=== PATIENT | male | born 1965 | race Caucasian/White ===

== ENCOUNTER 2017-07-26 05:14 | Observation (INO) | payer OTHER ==
[~2017-07-26] VITALS: Ht 175.3 cm; Wt 97.7 kg
[2017-07-26] VITALS (10 sets, daily range): BP systolic 139–208; BP diastolic 79–105; PULSE 72–97; RESP 16–20; TEMP 98–100.3; O2SAT 94–98
[~2017-07-26 05:14] MED LIST: AMIT10TA6 PO; BENZ1CAP54 PO; FAMO40TA PO; FURO40TA PO; GABA400C5 PO; LEVEMIR SQ; NOVOLOGP2 SQ; PANT40TA3 PO; PROC10TA PO; PROP20TA3 PO; SPIR100T PO; TRAM50TA PO
--- NOTE | 2017-07-26 05:25 | PD ---
HPI Chief Complaint: GI Complaint Time Seen by Provider: 05:16 Travel History International Travel<30 days: No Contact w/Intl Traveler<30days: No Traveled to known affect area: No History of Present Illness HPI 52-year-old male complains of abdominal pain, nausea vomiting and hematemesis. Patient has history of alcohol abuse. Patient has history of esophageal varices. Patient states that he has has been drinking alcohol heavily recently. Patient states that he started having recurrent nausea vomiting since last night. Patient noted some blood in the vomitus occasionally. Patient denies any headache. Patient denies any chest pain or shortness of breath. Patient complained of cramping pain mostly on the upper abdomen epigastric area. Patient denies any pain radiation. Patient complains of abdominal bloating. Patient denies any dysuria frequency. Patient denies any back pain. Patient denies any fever chills. Patient has history hypertension, diabetes. Patient is a smoker. PFSH Past Medical History Anxiety: Yes Depression: Yes Diabetes: Yes Diminished Hearing: No Hypertension: Yes Social History Alcohol Use: Yes (Daily) Tobacco Use: Yes Substance Use: Yes (alcohol) Allergies-Medications (Allergen,Severity, Reaction): Coded Allergies: morphine (Unverified Allergy, Severe, Shortness of Breath, 03/23/17) buspirone (Unverified Allergy, Intermediate, Numbness, 03/23/17) Reported Meds & Prescriptions Reported Meds & Active Scripts Active Reported Benzonatate 100 Mg Cap 100 Mg PO TID PRN Amitriptyline (Amitriptyline HCl) 10 Mg Tab 10 Mg PO HS Prochlorperazine Maleate 10 Mg Tab 10 Mg PO Q6H PRN Furosemide 40 Mg Tab 40 Mg PO DAILY Tramadol (Tramadol HCl) 50 Mg Tab 50 Mg PO Q8H PRN Pantoprazole (Pantoprazole Sodium) 40 Mg Tab 40 Mg PO BID Famotidine 40 Mg Tab 40 Mg PO HS Gabapentin 400 Mg Cap 400 Cap PO TID Spironolactone 100 Mg Tab 100 Mg PO DAILY Propranolol (Propranolol HCl) 20 Mg Tab 20 Mg PO Q8HR Levemir Inj (Insulin Detemir) 1,000 unit/ 10 ML Vial 20 Units SQ AC DINNER Do not mix with any other Insulin. Levemir Inj (Insulin Detemir) 1,000 unit/ 10 ML Vial 25 Units SQ AC BREAKFAST Do not mix with any other Insulin. Novolog Inj (Insulin Aspart) 1,000 Unit/10 Ml Vial 11 Units SQ TIDAC PRN Review of Systems General / Constitutional: No: Fever Eyes: No: Visual changes HENT: No: Headaches Cardiovascular: No: Chest Pain or Discomfort Respiratory: No: Shortness of Breath Gastrointestinal: Positive: Nausea, Vomiting, Abdominal Pain Genitourinary: No: Dysuria Musculoskeletal: No: Pain Skin: No Rash Neurologic: No: Weakness Psychiatric: No: Depression Endocrine: No: Polydipsia Hematologic/Lymphatic: No: Easy Bruising Physical Exam Narrative GENERAL: Well-nourished, well-developed patient. SKIN: Focused skin assessment warm/dry. HEAD: Normocephalic. EYES: No scleral icterus. No injection or drainage. NECK: Supple, trachea midline. No JVD or lymphadenopathy. CARDIOVASCULAR: Regular rate and rhythm without murmurs, gallops, or rubs. RESPIRATORY: Breath sounds equal bilaterally. No accessory muscle use. GASTROINTESTINAL: Abdomen soft, nondistended. Patient has mild tenderness on palpation epigastric area. No rebound tenderness. No mass. MUSCULOSKELETAL: No cyanosis, or edema. BACK: Nontender without obvious deformity. No CVA tenderness. Data Data Last Documented VS Vital Signs Date Time Temp Pulse Resp B/P (MAP) Pulse Ox O2 Delivery O2 Flow Rate FiO2 07/26/17 05:17 98.5 16 Orders Orders Complete Blood Count With Diff (07/26/17 05:16) Comprehensive Metabolic Panel (07/26/17 05:16) Prothrombin Time / Inr (Pt) (07/26/17 05:16) Act Partial Throm Time (Ptt) (07/26/17 05:16) Lipase (07/26/17 05:16) Chest, Single Ap (07/26/17 05:16) Iv Access Insert/Monitor (07/26/17 05:16) Ecg Monitoring (07/26/17 05:16) Oximetry (07/26/17 05:16) Sodium Chlor 0.9% 1000 Ml Inj (Ns 1000 M (07/26/17 05:30) Pantoprazole Inj (Protonix Inj) (07/26/17 05:30) Promethazine Inj (Phenergan Inj) (07/26/17 05:30) Ct Abd/Pel W Iv Contrast(Rout) (07/26/17 05:18) MDM Medical Decision Making Medical Screen Exam Complete: Yes Emergency Medical Condition: Yes Differential Diagnosis Differential diagnosis including gastroenteritis, gastritis, PUD, pancreatitis, upper GI bleed, colitis, UTI, pyelonephritis, nephrolithiasis, esophageal bleed. Narrative Course 52-year-old male with epigastric abdominal pain, nausea vomiting and occasionally hematemesis. History of alcohol abuse and history of esophageal varices. Esteban Yu MD July 26, 2017 05:25
[2017-07-26] MEDS ORDERED: AMIT10TA6 PO (05:29)
[2017-07-26] MEDS ORDERED: PROMETHAZINE INJ 25 MG/ML VIAL IM ONE ×2 (05:30→06:30)
[2017-07-26] MEDS ORDERED: SODIUM CHLOR 0.9% 1000 ML INJ 1,000 ML IV SCH (05:30)
[2017-07-26] MEDS ORDERED: PANTOPRAZOLE SODIUM 40 MG VIAL IV PUSH ONE (05:30)
[2017-07-26 05:41] LABS: AUTOMATED NEUTROPHIL # 3.8 TH/MM3 (1.8-7.7); BASOPHIL % 0.3 % (0.0-2.0); EOSINOPHIL % 0.8 % (0.0-4.0); HEMATOCRIT 37.5 % (39.0-51.0); HEMOGLOBIN 12.7 GM/DL (13.0-17.0); LYMPHOCYTE # 0.4 TH/MM3 (1.0-4.8); MEAN CELL VOLUME 80.4 FL (80.0-100.0); MEAN CORPUSCULAR HEMOGLOBIN 27.3 PG (27.0-34.0); MEAN CORPUSCULAR HGB CONC 33.9 % (32.0-36.0); MEAN PLATELET VOLUME 8.3 FL (7.0-11.0); MONO % 17.2 % (0.0-8.0); MONOCYTE # 0.9 TH/MM3 (0-0.9); NEUT % 73.7 % (16.0-70.0); PLATELET COUNT 69 TH/MM3 (150-450); RED BLOOD COUNT 4.66 MIL/MM3 (4.50-5.90); RED CELL DISTRIBUTION WIDTH 18.9 % (11.6-17.2); WHITE BLOOD COUNT 5.1 TH/MM3 (4.0-11.0)
[2017-07-26 05:53] LABS: INTERNATIONAL NORMALIZED RATIO 1.1 RATIO; PROTHROMBIN TIME - PATIENT 11.5 SEC (9.8-11.6)
[2017-07-26 06:05] LABS: ALBUMIN 3.3 GM/DL (3.4-5.0); ALT (GPT) 20 U/L (12-78); AST (GOT) 35 U/L (15-37); BLOOD UREA NITROGEN 8 MG/DL (7-18); CALCIUM 8.2 MG/DL (8.5-10.1); CHLORIDE 110 MEQ/L (98-107); CREATININE 0.66 MG/DL (0.60-1.30); GLOMERULAR FILTRATION RATE 126 ML/MIN (>89); GLUCOSE,RANDOM 183 MG/DL (74-106); SODIUM (NA) 145 MEQ/L (136-145)
[2017-07-26 06:08] LABS: ALKALINE PHOSPHATASE 142 U/L (45-117); TOTAL BILIRUBIN ADULT 0.8 MG/DL (0.2-1.0); TOTAL PROTEIN 6.6 GM/DL (6.4-8.2)
[2017-07-26] MEDS ORDERED: ATROPINE/SCOPOLAM/HYOSCYAM/PB ELIXIR 10 ML CUP PO ONE (06:15)
[2017-07-26] MEDS ORDERED: ALUMINUM/MAGNESIUM/SIMETH 30 ML CUP PO ONE (06:15)
--- NOTE | 2017-07-26 06:31 | RADRPT ---
EXAM DATE/TIME: 07/26/2017 05:54 [facility] COMPARISON: No previous studies available for comparison. INDICATIONS : Upper abdominal pain. MEDICAL HISTORY : Hypertension. Diabetes. SURGICAL HISTORY : Esophageal banding. ENCOUNTER: Initial ACUITY: 3 days PAIN SCORE: 10/10 LOCATION: Bilateral chest FINDINGS: A single view of the chest demonstrates the lungs to be symmetrically aerated without evidence of mas s, infiltrate or effusion. The cardiomediastinal contours are unremarkable. Osseous structures are intact. CONCLUSION: Normal examination. Mynor Lebron Jr., MD on July 26, 2017 at 6:29 Board Certified Radiologist. This report was verified electronically.
[2017-07-26] MEDS ORDERED: METOCLOPRAMIDE HCL 10 MG/2 ML VIAL IV PUSH ONE (06:45)
[2017-07-26] MEDS ORDERED: diphenhydrAMINE HCL 50 MG/ML VIAL IV PUSH ONE (06:45)
[2017-07-26] MEDS ORDERED: IOHEXOL 350 MG/ML 10 ML VIAL (for RAD DIAG) IVCONTRAST ONE (07:36)
--- NOTE | 2017-07-26 07:52 | RADRPT ---
EXAM DATE/TIME: 07/26/2017 07:34 [facility] COMPARISON: No previous studies available for comparison. INDICATIONS : Epigastric abdominal pain, distention and hemoptysis. IV CONTRAST: 95 cc Omnipaque 350 (iohexol) IV ORAL CONTRAST: No oral contrast ingested. RADIATION DOSE: 15.06 CTDIvol (mGy) MEDICAL HISTORY : Hypertension. Diabetes. ETOH abuse. Esophageal varices. SURGICAL HISTORY : Esophageal banding. ENCOUNTER: Initial ACUITY: 1 day PAIN SCALE: 8/10 LOCATION: Abdomen. TECHNIQUE: Volumetric scanning of the abdomen and pelvis was performed. Using automated exposure control and ad justment of the mA and/or kV according to patient size, radiation dose was kept as low as reasonably achievable to obtain optimal diagnostic quality images. DICOM format image data is available electro nically for review and comparison. FINDINGS: LOWER LUNGS: The visualized lower lungs are clear. Small to moderate hiatal hernia the GE junction. LIVER: The liver is heterogeneous suggestive of hepatocellular disease. No dilated biliary ducts. Multiple g allstones in the gallbladder. There is some thickening of the gallbladder wall. SPLEEN: Splenomegaly. Spleen measures 16.7 cm. There is some varices near the GE junction. PANCREAS: Within normal limits. KIDNEYS: Normal in size and shape. There is no mass, stone or hydronephrosis. ADRENAL GLANDS: Within normal limits. VASCULAR: There is no aortic aneurysm. BOWEL/MESENTERY: The stomach, small bowel, and colon demonstrate no acute abnormality. There is no free intraperitone al air. There is edema throughout the mesentery within the abdomen. There is a trace of fluid by the liver. The appendix is unremarkable. ABDOMINAL WALL: Within normal limits. RETROPERITONEUM: A few small nonspecific lymph nodes are seen in the para-aortic area. Otherwise no definite adenopath y is seen. BLADDER: No wall thickening or mass. REPRODUCTIVE: Within normal limits. INGUINAL: There is no lymphadenopathy or hernia. MUSCULOSKELETAL: Within normal limits for patient age. CONCLUSION: 1. Heterogeneous liver characteristic for hepatocellular disease such as cirrhosis. 2. Splenomegaly. 3. Varices are seen in the upper abdomen near the GE junction. 4. Small to moderate hiatal hernia at the GE junction 5. Trace of fluid by the liver. Edema throughout the mesentery. No significant ascites. 6. Multiple gallstones in the gallbladder. No biliary tract obstruction. Josue Hopkins MD on July 26, 2017 at 7:44 Board Certified Radiologist. This report was verified electronically.
[2017-07-26] MEDS ORDERED: SENNOSIDES 8.6 MG TAB PO PRN (09:30)
[2017-07-26] MEDS ORDERED: NALOXONE HCL 0.4 MG/ML AMP IV PUSH PRN (09:30)
[2017-07-26] MEDS ORDERED: LACTULOSE SYRUP 20 GM/30 ML CUP PO PRN (09:30)
[2017-07-26] MEDS ORDERED: BISACODYL 10 MG SUPP RECTAL PRN (09:30)
[2017-07-26] MEDS ORDERED: MAGNESIUM HYDROXIDE SUSP 30 ML CUP PO PRN (09:30)
[2017-07-26] MEDS ORDERED: SODIUM CHLORIDE 0.9% FLUSH 10 ML FLUSH IV FLUSH PRN ×3 (09:30→09:45)
--- NOTE | 2017-07-26 09:37 | PD ---
Physical Exam Date Seen by Provider: July 26, 2017 Time Seen by Provider: 07:00 Narrative Patient initially seen and evaluated by Dr. Yu, please see his notes for further details. He is here for nausea, vomiting, hematemesis, and CAT scan is pending for further evaluation. H&H appears to be stable. Vital signs are stable. Patient has already been given Protonix. Laboratory Tests Test 07/26/17 05:30 Hemoglobin 12.7 GM/DL (13.0-17.0) Hematocrit 37.5 % (39.0-51.0) Red Cell Distribution Width 18.9 % (11.6-17.2) Platelet Count 69 TH/MM3 (150-450) Neutrophils (%) (Auto) 73.7 % (16.0-70.0) Lymphocytes (%) (Auto) 8.0 % (9.0-44.0) Monocytes (%) (Auto) 17.2 % (0.0-8.0) Lymphocytes # (Auto) 0.4 TH/MM3 (1.0-4.8) Platelet Estimate LOW (NORMAL) Random Glucose 183 MG/DL (74-106) Albumin 3.3 GM/DL (3.4-5.0) Calcium Level 8.2 MG/DL (8.5-10.1) Alkaline Phosphatase 142 U/L (45-117) Chloride Level 110 MEQ/L (98-107) Last 24 hours Impressions Abdomen/Pelvis CT 07/26/17517 Signed Impressions: Service Date/Time: Wednesday, July 26, 2017 07:34 - CONCLUSION: 1. Heterogeneous liver characteristic for hepatocellular disease such as cirrhosis. 2. Splenomegaly. 3. Varices are seen in the upper abdomen near the GE junction. 4. Small to moderate hiatal hernia at the GE junction 5. Trace of fluid by the liver. Edema throughout the mesentery. No significant ascites. 6. Multiple gallstones in the gallbladder. No biliary tract obstruction. Josue Hopkins MD Chest X-Ray 07/26/17515 Signed Impressions: Service Date/Time: Wednesday, July 26, 2017 05:54 - CONCLUSION: Normal examination. Mynor Lebron Jr., MD Data Data Last Documented VS Vital Signs Date Time Temp Pulse Resp B/P (MAP) Pulse Ox O2 Delivery O2 Flow Rate FiO2 07/26/17 08:12 97 20 173/104 (127) 97 Room Air 07/26/17 05:17 98.5 Orders Orders Complete Blood Count With Diff (07/26/17 05:16) Comprehensive Metabolic Panel (07/26/17 05:16) Prothrombin Time / Inr (Pt) (07/26/17 05:16) Act Partial Throm Time (Ptt) (07/26/17 05:16) Lipase (07/26/17 05:16) Chest, Single Ap (07/26/17 05:16) Iv Access Insert/Monitor (07/26/17 05:16) Ecg Monitoring (07/26/17 05:16) Oximetry (07/26/17 05:16) Sodium Chlor 0.9% 1000 Ml Inj (Ns 1000 M (07/26/17 05:30) Pantoprazole Inj (Protonix Inj) (07/26/17 05:30) Promethazine Inj (Phenergan Inj) (07/26/17 05:30) Ct Abd/Pel W Iv Contrast(Rout) (07/26/17 05:18) Al-Mag Hy-Si 40-40-4 Mg/Ml Liq (Mag-Al P (07/26/17 06:15) Plbrp-Orjibe-Gishkb-Pb Liq ( Liq (07/26/17 06:15) Promethazine Inj (Phenergan Inj) (07/26/17 06:30) Metoclopramide Inj (Reglan Inj) (07/26/17 06:45) Diphenhydramine Inj (Benadryl Inj) (07/26/17 06:45) Iohexol 350 Inj (Omnipaque 350 Inj) (07/26/17 07:36) Admit Order (Ed Use Only) (07/26/17 09:29) Place In Observation (07/26/17 ) Vital Signs (Adult) Q4H (07/26/17 09:28) Activity Oob With Assistance (07/26/17 09:28) Boiler Room Operator / Telemetry .CONTINUOUS (07/26/17 09:28) Diet Clear Liquid (07/26/17 Breakfast) Sodium Chlor 0.9% 1000 Ml Inj (Ns 1000 M (07/26/17 09:28) Sodium Chloride 0.9% Flush (Ns Flush) (07/26/17 09:30) Sodium Chloride 0.9% Flush (Ns Flush) (07/26/17 21:00) Metoclopramide Inj (Reglan Inj) (07/26/17 09:30) Comprehensive Metabolic Panel (07/27/17 06:00) Complete Blood Count With Diff (07/27/17 06:00) Resp Oxygen Alden C Titrat 1-4 L (07/26/17 ) Pt Request For Service (07/26/17 09:28) Case Management Consult (07/26/17 09:28) Scd Bilateral/Knee High RUBY.BID (07/26/17 09:28) Moose Bilateral/Knee High RUBY.QSHIFT (07/26/17:28) Pharmacologic Contraindication (07/26/17:) Naloxone Inj (Narcan Inj) (07/26/17 09:30) Docusate Sodium-Senna (Joanne-Colace) (07/26/17 21:00) Magnesium Hydroxide Liq (Milk Of Magnesi (07/26/17 09:30) Sennosides (Senokot) (07/26/17 09:30) Bisacodyl Supp (Dulcolax Supp) (07/26/17 09:30) Lactulose Liq (Lactulose Liq) (07/26/17 09:30) Labs Laboratory Tests Test 07/26/17 05:30 White Blood Count 5.1 TH/MM3 Red Blood Count 4.66 MIL/MM3 Hemoglobin 12.7 GM/DL Hematocrit 37.5 % Mean Corpuscular Volume 80.4 FL Mean Corpuscular Hemoglobin 27.3 PG Mean Corpuscular Hemoglobin Concent 33.9 % Red Cell Distribution Width 18.9 % Platelet Count 69 TH/MM3 Mean Platelet Volume 8.3 FL Neutrophils (%) (Auto) 73.7 % Lymphocytes (%) (Auto) 8.0 % Monocytes (%) (Auto) 17.2 % Eosinophils (%) (Auto) 0.8 % Basophils (%) (Auto) 0.3 % Neutrophils # (Auto) 3.8 TH/MM3 Lymphocytes # (Auto) 0.4 TH/MM3 Monocytes # (Auto) 0.9 TH/MM3 Eosinophils # (Auto) 0.0 TH/MM3 Basophils # (Auto) 0.0 TH/MM3 CBC Comment AUTO DIFF Differential Comment AUTO DIFF CONFIRMED Platelet Estimate LOW Platelet Morphology Comment NORMAL Prothrombin Time 11.5 SEC Prothromb Time International Ratio 1.1 RATIO Activated Partial Thromboplast Time 30.1 SEC Blood Urea Nitrogen 8 MG/DL Creatinine 0.66 MG/DL Random Glucose 183 MG/DL Total Protein 6.6 GM/DL Albumin 3.3 GM/DL Calcium Level 8.2 MG/DL Alkaline Phosphatase 142 U/L Aspartate Amino Transf (AST/SGOT) 35 U/L Alanine Aminotransferase (ALT/SGPT) 20 U/L Total Bilirubin 0.8 MG/DL Sodium Level 145 MEQ/L Potassium Level 3.8 MEQ/L Chloride Level 110 MEQ/L Carbon Dioxide Level 25.0 MEQ/L Anion Gap 10 MEQ/L Estimat Glomerular Filtration Rate 126 ML/MIN Lipase 191 U/L MDM Medical Record Reviewed: Yes Supervised Visit with LORY: No Narrative Course Patient with CAT scan concerning for esophageal varices. At this point, case is discussed with Dr. Michelle for admission. Diagnosis Primary Impression: GI bleed Admitting Information Admitting Physician Requests: Admit Dimitri Hamilton MD July 26, 2017 09:37
[2017-07-26] MEDS ORDERED: LORazepam 2 MG/ML VIAL IV PUSH PRN ×4 (09:45)
[2017-07-26] MEDS ORDERED: traMADol HCL 50 MG TAB PO PRN (09:45)
[2017-07-26] MEDS ORDERED: OCTREOTIDE INJ 50 MCG/ML AMP IV PUSH PRN (09:45)
[2017-07-26] MEDS ORDERED: LORazepam 2 MG TAB PO PRN (09:45)
[2017-07-26] MEDS ORDERED: FLUMAZENIL 0.5 MG/5 ML VIAL IV PUSH PRN (09:45)
[2017-07-26] MEDS: SODIUM CHLOR 0.9% 1000 ML INJ 1,000 ML IV SCH ×2 (11:09→19:34)
[2017-07-26 11:32] LABS: HEMATOCRIT 39.2 % (39.0-51.0)
[2017-07-26 11:50] LABS: MAGNESIUM 1.9 MG/DL (1.5-2.5)
[2017-07-26 11:52] LABS: PHOSPHORUS 1.9 MG/DL (2.5-4.9)
--- NOTE | 2017-07-26 11:56 | PD.PN.STU ---
Subjective Remarks HPI: Mr. Koroma is a 52-year-old white male who was brought to the ED by [facility] for nausea, vomiting, and hematemesis. He drinks alcohol daily and admits to consuming >12 beers and finishing a 750mL bottle of liquor in the past 24 hours. GI symptoms began yesterday and he reports recurrent vomiting with a minimal amount of blood in each episode. He is vomiting 2-3x every hour. Says it is watery and the color is "light" but tinged with blood. He has not eaten much in the past few days, and recalls having a can of spam last night. Nausea is not associated with food. He has constant "crampy" periumbilical pain that does not radiate. Rates pain 5/10 and it is worsened with vomiting. Reports abdominal bloating. He has a history of cirrhosis and ascites which required hospitalization and multiple treatments with paracentesis last year. He has a history of esophageal varices, which were treated with banding at a hospital in [place] 04/2017. He reports an episode of dyspnea early this morning associated with vomiting. It self-resolved and has not occurred since. Denies chest pain, tightness, back or shoulder pain, constipation, diarrhea, recent change in BMs, fever, chills, headache, vision changes. He has not traveled recently and has no sick contacts. He receives SSI and is not currently employed. He moved to the area from [place] a few months ago and does not have a PCP. He has not taken any prescribed medications in the past few days. He is unsure of the exact medications, but reports he is prescribed BP meds, DM meds, gabapentin, and antidepressants. Patient is a current smoker. PMH: HTN DM Alcohol abuse Tobacco dependence Depression Anxiety Surgical Hx: Esophageal banding 04/2017 SHx: Daily EtOH - beer and liquor Current smoker Denies illicit drug use FHx: No history of cardiac problems Allergies: morphine (Unverified Allergy, Severe, Shortness of Breath, 03/23/17) buspirone (Unverified Allergy, Intermediate, Numbness, 03/23/17) Reported Meds & Active Scripts: Reported Amitriptyline (Amitriptyline HCl) 10 Mg Tab 20 Mg PO HS Furosemide 40 Mg Tab 40 Mg PO DAILY Tramadol (Tramadol HCl) 50 Mg Tab 50 Mg PO Q8H PRN Famotidine 40 Mg Tab 40 Mg PO HS Gabapentin 400 Mg Cap 400 Cap PO TID Propranolol (Propranolol HCl) 20 Mg Tab 20 Mg PO Q8HR Review Of Systems: General / Constitutional: no fever, chills Eyes: no visual change HENT: no headaches Cardiovascular: no chest pain, tightness, palpitations Respiratory: reports one episode of shortness of breath this morning Gastrointestinal: reports nausea, vomiting, periumbilical pain; denies constipation, diarrhea Musculoskeletal: no shoulder or back pain Neurologic: no weakness Psychiatric: reports depression and anxiety Objective Vitals Vital Signs Date Time Temp Pulse Resp B/P (MAP) Pulse Ox O2 Delivery O2 Flow Rate FiO2 07/26/17 10:46 76 18 176/80 (112) 96 07/26/17 08:12 97 20 173/104 (127) 97 Room Air 07/26/17 05:17 98.5 96 16 208/105 (139) I/O 07/25/17 07/25/17 07/25/17 07/26/17 07/26/17 07/26/17 07:00 15:00 23:00 07:00 15:00 23:00 Output Total 1100 ml Balance -1100 ml Output Urine Total 1100 ml # Voids 4 Exam: GENERAL: Patient appears disheveled and is curled up in obvious pain. His hands are tremulous. No respiratory distress SKIN: Warm and dry HEAD: Normocephalic. EYES: No scleral icterus CARDIOVASCULAR: Regular rate and rhythm without murmurs, gallops, or rubs. No JVD. No peripheral edema. RESPIRATORY: Breath sounds equal bilaterally. No accessory muscle use. GASTROINTESTINAL: Abdomen is obese, soft, with slight distention. BS are active in all quadrants. Moderate diffuse tenderness to palpation, more severe over epigastric and periumbilical areas. No rebound tenderness. Negative Kirby and McBurney signs. No masses. EXTREMITIES: No cyanosis or edema. Some superficial abrasions over R upper extremity. Laboratory Tests Test 07/26/17 05:30 07/26/17 11:03 White Blood Count 5.1 TH/MM3 Red Blood Count 4.66 MIL/MM3 Hemoglobin 12.7 GM/DL 13.0 GM/DL Hematocrit 37.5 % 39.2 % Mean Corpuscular Volume 80.4 FL Mean Corpuscular Hemoglobin 27.3 PG Mean Corpuscular Hemoglobin Concent 33.9 % Red Cell Distribution Width 18.9 % Platelet Count 69 TH/MM3 Mean Platelet Volume 8.3 FL Neutrophils (%) (Auto) 73.7 % Lymphocytes (%) (Auto) 8.0 % Monocytes (%) (Auto) 17.2 % Eosinophils (%) (Auto) 0.8 % Basophils (%) (Auto) 0.3 % Neutrophils # (Auto) 3.8 TH/MM3 Lymphocytes # (Auto) 0.4 TH/MM3 Monocytes # (Auto) 0.9 TH/MM3 Eosinophils # (Auto) 0.0 TH/MM3 Basophils # (Auto) 0.0 TH/MM3 CBC Comment AUTO DIFF Differential Comment AUTO DIFF CONFIRMED Platelet Estimate LOW Platelet Morphology Comment NORMAL Prothrombin Time 11.5 SEC Prothromb Time International Ratio 1.1 RATIO Activated Partial Thromboplast Time 30.1 SEC Blood Urea Nitrogen 8 MG/DL Creatinine 0.66 MG/DL Random Glucose 183 MG/DL Total Protein 6.6 GM/DL Albumin 3.3 GM/DL Calcium Level 8.2 MG/DL Alkaline Phosphatase 142 U/L Aspartate Amino Transf (AST/SGOT) 35 U/L Alanine Aminotransferase (ALT/SGPT) 20 U/L Total Bilirubin 0.8 MG/DL Sodium Level 145 MEQ/L Potassium Level 3.8 MEQ/L Chloride Level 110 MEQ/L Carbon Dioxide Level 25.0 MEQ/L Anion Gap 10 MEQ/L Estimat Glomerular Filtration Rate 126 ML/MIN Lipase 191 U/L 120 U/L Phosphorus Level 1.9 MG/DL Magnesium Level 1.9 MG/DL Result Diagram: 07/26/1730 07/26/17529 Imaging Imaging: Abdomen/Pelvis CT 07/26/17517 Signed Impressions: Service Date/Time: Wednesday, July 26, 2017 07:34 - CONCLUSION: 1. Heterogeneous liver characteristic for hepatocellular disease such as cirrhosis. 2. Splenomegaly. 3. Varices are seen in the upper abdomen near the GE junction. 4. Small to moderate hiatal hernia at the GE junction 5. Trace of fluid by the liver. Edema throughout the mesentery. No significant ascites. 6. Multiple gallstones in the gallbladder. No biliary tract obstruction. Josue Hopkins MD Chest X-Ray 07/26/17515 Signed Impressions: Service Date/Time: Wednesday, July 26, 2017 05:54 - CONCLUSION: Normal examination. Mynor Lebron Jr., MD A/P Assessment and Plan GIB - upper GI bleed H/o esophageal varices with band ligation in the past Epigastric pain Ascites/ liver cirrhosis EtOH use with withdrawal symptoms NPO Consult GI Start IV protonix , start Octreotide IV Plan for EGD Start CIWA protocol, thiamine,folate , MVT supplement. Counselled regarding EtOH use. Continue home meds as appropriate DVT ppx scd/teds. CI chemical ppx as patient with active bleeding Case discussed at length with Geroinmo Patrick MS IV. Geronimo Patrick M3 July 26, 2017 11:55 Marcia Michelle MD July 26, 2017 15:18
[2017-07-26] MEDS ORDERED: SUCCINYLCHOLINE CHLORIDE 100 MG/5 ML SYRINGE IV PUSH ONE (12:00)
[2017-07-26] MEDS ORDERED: PROPOFOL 200 MG/20 ML AMP IV ONE (12:00)
[2017-07-26] MEDS ORDERED: LIDOCAINE HCL 1% PF 5 ML SYRINGE OTHER ONE (12:00)
[2017-07-26] MEDS: LORazepam 1 MG TAB PO PRN ×2 (12:02→17:48)
[2017-07-26] MEDS: METOCLOPRAMIDE HCL 10 MG/2 ML VIAL IV PUSH PRN ×2 (12:02→17:47)
[2017-07-26] MEDS: GABAPENTIN 400 MG CAP PO SCH ×2 (13:33→17:48)
--- NOTE | 2017-07-26 13:39 | PD.CONS ---
HPI History of Present Illness This is a 52 year old obese male who came into the hospital on 07/26/2017 with symptoms of abdominal pain, nausea, vomiting, and mild hematemesis. Patient notes that he has been drinking heavily over the past few weeks which includes beer and liquor at least 6+ times a day and he is a tobacco user pack a day since age 13. Patient also notes that he has had some mild abdominal bloating and describes his pain as mid abdomen around the umbilical area on a scale of 7 out of 10. Patient denies any fever, denies any acute shortness of breath, and states that his nausea and vomiting has gradually improved today with the medications. Patient was in the [facility] back in April and had EGD done for esophageal varices. He thinks he may have had a colonoscopy also but is not sure. He states history of polyps and positive family history of colon cancer with his dad. Patient notes no GI doctor or regular PCP in the [facility] and he notes that he does live here. Current labs show alkaline phosphatase 142, AST 35 ALT 20, bilirubin 0.8, hemoglobin 12.7 and 13 respectfully, INR 1.1. Up until April 2017 patient was unaware of any liver disease. (Thania Trivedi) PFSH Past Medical History Diabetes type 2 hypertension Anxiety and depression Portal hypertension with esophageal varices seen back in April 2017 on EGD Colon polyp Past Surgical History EGD and probable colonoscopy April 2017 in the [facility]. Esophageal banding for varices April 2017 (Thania Trivedi) Coded Allergies: morphine (Unverified Allergy, Severe, Shortness of Breath, 03/23/17) buspirone (Unverified Allergy, Intermediate, Numbness, 03/23/17) Medications Administered Medications Medications (Trade) Dose Ordered Sig/Cece Route PRN Reason Start Time Stop Time Status Last Admin Dose Admin Sodium Chloride 1,000 ml @ 100 mls/hr Q10H IV 07/26/17 10:00 07/26/17 11:09 Metoclopramide HCl (Reglan Inj) 5 mg Q6H PRN IV PUSH NAUSEA OR VOMITING 07/26/17 09:30 07/26/17 12:02 Lorazepam (Ativan) 1 mg Q4H PRN PO CIWA 8 - 10 07/26/17 09:45 07/26/17 12:02 Family History Father family history of colon cancer Social History Positive for smoking a pack a day and alcohol daily 6+ beer and Bacardi States drinking since the age of 13 is recently (Thania Trivedi) Review of Systems Gastrointestinal: COMPLAINS OF: Abdominal pain, Nausea, Vomiting, Hematemesis ( Thania Trivedi) GI Exam Vitals I&O Vital Signs Date Time Temp Pulse Resp B/P (MAP) Pulse Ox O2 Delivery O2 Flow Rate FiO2 07/26/17 12:00 98.0 81 19 158/94 (115) 94 07/26/17 10:46 76 18 176/80 (112) 96 07/26/17 08:12 97 20 173/104 (127) 97 Room Air 07/26/17 05:17 98.5 96 16 208/105 (139) I/O 07/25/17 07/25/17 07/25/17 07/26/17 07/26/17 07/26/17 07:00 15:00 23:00 07:00 15:00 23:00 Output Total 1500 ml Balance -1500 ml Output Urine Total 1500 ml # Voids 4 Imaging Last Impressions Abdomen/Pelvis CT 07/26/17517 Signed Impressions: Service Date/Time: Wednesday, July 26, 2017 07:34 - CONCLUSION: 1. Heterogeneous liver characteristic for hepatocellular disease such as cirrhosis. 2. Splenomegaly. 3. Varices are seen in the upper abdomen near the GE junction. 4. Small to moderate hiatal hernia at the GE junction 5. Trace of fluid by the liver. Edema throughout the mesentery. No significant ascites. 6. Multiple gallstones in the gallbladder. No biliary tract obstruction. Josue Hopkins MD Chest X-Ray 07/26/1716 Signed Impressions: Service Date/Time: Wednesday, July 26, 2017 05:54 - CONCLUSION: Normal examination. Mynor Lebron Jr., MD Laboratory Test 07/26/17 05:30 07/26/17 11:03 White Blood Count 5.1 TH/MM3 Red Blood Count 4.66 MIL/MM3 Hemoglobin 12.7 GM/DL 13.0 GM/DL Hematocrit 37.5 % 39.2 % Mean Corpuscular Volume 80.4 FL Mean Corpuscular Hemoglobin 27.3 PG Mean Corpuscular Hemoglobin Concent 33.9 % Red Cell Distribution Width 18.9 % Platelet Count 69 TH/MM3 Mean Platelet Volume 8.3 FL Neutrophils (%) (Auto) 73.7 % Lymphocytes (%) (Auto) 8.0 % Monocytes (%) (Auto) 17.2 % Eosinophils (%) (Auto) 0.8 % Basophils (%) (Auto) 0.3 % Neutrophils # (Auto) 3.8 TH/MM3 Lymphocytes # (Auto) 0.4 TH/MM3 Monocytes # (Auto) 0.9 TH/MM3 Eosinophils # (Auto) 0.0 TH/MM3 Basophils # (Auto) 0.0 TH/MM3 CBC Comment AUTO DIFF Differential Comment AUTO DIFF CONFIRMED Platelet Estimate LOW Platelet Morphology Comment NORMAL Prothrombin Time 11.5 SEC Prothromb Time International Ratio 1.1 RATIO Activated Partial Thromboplast Time 30.1 SEC Blood Urea Nitrogen 8 MG/DL Creatinine 0.66 MG/DL Random Glucose 183 MG/DL Total Protein 6.6 GM/DL Albumin 3.3 GM/DL Calcium Level 8.2 MG/DL Alkaline Phosphatase 142 U/L Aspartate Amino Transf (AST/SGOT) 35 U/L Alanine Aminotransferase (ALT/SGPT) 20 U/L Total Bilirubin 0.8 MG/DL Sodium Level 145 MEQ/L Potassium Level 3.8 MEQ/L Chloride Level 110 MEQ/L Carbon Dioxide Level 25.0 MEQ/L Anion Gap 10 MEQ/L Estimat Glomerular Filtration Rate 126 ML/MIN Lipase 191 U/L 120 U/L Phosphorus Level 1.9 MG/DL Magnesium Level 1.9 MG/DL Physical Examination HEENT: normocephalic; atraumatic; , mucous membranes moist, generalized obesity NECK: Neck is supple, CHEST: Chest mild diminished breath sounds in his base bilateral. CARDIAC: Regular rate and rhythm ABDOMEN: Round, large, soft, mild distention, mild tenderness in the umbilical area, enlarged liver borders, bowel sounds are present in all four quadrants. EXTREMITIES: No lower extremity edema. SKIN: Normal; no rash; [employer] OPERATIONS AGENT: Awake answering simple questions appropriately but minimal conversation (Thania Trivedi) Assessment and Plan Assessment: (1) GI bleed ICD Codes: K92.2 - Gastrointestinal hemorrhage, unspecified Status: Acute (2) Alcohol abuse ICD Codes: F10.10 - Alcohol abuse, uncomplicated Status: Acute Plan 52-year-old obese male came in the hospital on 07/26/2017 with abdominal pain, nausea and vomiting and mild hematemesis. Patient has a significant history of tobacco abuse and alcohol abuse since the age of 13 and notes heavy drinking over the past few weeks with beer and liquor at least 6+ times a day. Patient also notes hospital stay back in April 2017 in the [facility] area. He does note EGD and (possible colonoscopy) then, patient does note history of polyps, and esophageal varices which were banded in April 2017. Current hemoglobin stable at 13, alkaline phosphatase 142, AST 35 ALT 20, bilirubin 0.8. PT/INR 1.[address] scan done on 07/26/2017 showed homogenous liver characteristic for hepatocellular disease such as cirrhosis. Splenomegaly. Varices are seen in the upper abdomen near the GE junction. Small to moderate hiatal hernia at the GE junction. Trace of fluid by the liver and edema throughout the mesentery. No significant ascites. Multiple gallstones in the gallbladder, no biliary tract obstruction. Currently patient denies any right upper quadrant pain. Plan N.p.o. for now Consent for EGD today for possible banding of varices Monitor hemoglobin and labs Antiemetics Ammonia level Thiamine, folic acid PPI IV Transfuse if necessary After EGD further recommendations to follow Patient was seen per myself and Dr. May, note was written on her behalf (Thania Trivedi) Physician Comments seen, examined agree with above (Ina May MD) Thania Trivedi July 26, 2017 13:39 Ina May MD July 26, 2017 18:20
[2017-07-26] MEDS ORDERED: CHLORHEXIDINE GLUCONATE 2 % 1 PACK (2 CLOTHS) TOPICAL PRN (14:45)
[2017-07-26] MEDS ORDERED: POVIDONE IODINE 5% (ANTISEPSIS KIT) 4 APPLICATIONS EACH NARE PRN (14:45)
[2017-07-26] MEDS ORDERED: METOPROLOL TARTRATE 25 MG TAB PO PRN (14:45)
[2017-07-26] MEDS ORDERED: LACTATED RINGER'S 1000 ML IV PRN (14:45)
[2017-07-26] MEDS ORDERED: SODIUM CHLORID 0.9% 500 ML IV PRN (14:45)
--- NOTE | 2017-07-26 15:16 | HHI.HP ---
[facility] Primary Care Physician No Primary Care Physician Admission Diagnosis GI bleed/esophageal varices Diagnoses: Chief Complaint: vomiting blood Travel History International Travel<30 Days: No Contact w/Intl Traveler <30 Da: No Traveled to Known Affected Are: No History of Present Illness Mr. Koroma is a 52-year-old white male who was brought to the ED by [facility] for nausea, vomiting, and hematemesis. He drinks alcohol daily and admits to consuming >12 beers and finishing a 750mL bottle of liquor in the past 24 hours. GI symptoms began yesterday and he reports recurrent vomiting with a minimal amount of blood in each episode. He is vomiting 2-3x every hour. Says it is watery and the color is "light" but tinged with blood. He has not eaten much in the past few days, and recalls having a can of spam last night. Nausea is not associated with food. He has constant "crampy" periumbilical pain that does not radiate. Rates pain 5/10 and it is worsened with vomiting. Reports abdominal bloating. He has a history of cirrhosis and ascites which required hospitalization and multiple treatments with paracentesis last year. He has a history of esophageal varices, which were treated with banding at a hospital in [place] 04/2017. He reports an episode of dyspnea early this morning associated with vomiting. It self-resolved and has not occurred since. Denies chest pain, tightness, back or shoulder pain, constipation, diarrhea, recent change in BMs, fever, chills, headache, vision changes. He has not traveled recently and has no sick contacts. He receives SSI and is not currently employed. He moved to the area from [place] a few months ago and does not have a PCP. He has not taken any prescribed medications in the past few days. He is unsure of the exact medications, but reports he is prescribed BP meds, DM meds, gabapentin, and antidepressants. Patient is a current smoker. Review of Systems ROS Limitations: Clinical Condition Except as stated in HPI: all other systems reviewed are Neg Past Family Social History Past Medical History Diabetes type 2 hypertension Anxiety and depression Portal hypertension with esophageal varices seen back in April 2017 on EGD Colon polyp Past Surgical History EGD and probable colonoscopy April 2017 in the [facility] area. Esophageal banding for varices April 2017 Reported Medications Reported Meds & Active Scripts Active Reported Amitriptyline (Amitriptyline HCl) 10 Mg Tab 20 Mg PO HS Furosemide 40 Mg Tab 40 Mg PO DAILY Tramadol (Tramadol HCl) 50 Mg Tab 50 Mg PO Q8H PRN Famotidine 40 Mg Tab 40 Mg PO HS Gabapentin 400 Mg Cap 400 Cap PO TID Propranolol (Propranolol HCl) 20 Mg Tab 20 Mg PO Q8HR Allergies: Coded Allergies: morphine (Unverified Allergy, Severe, Shortness of Breath, 03/23/17) buspirone (Unverified Allergy, Intermediate, Numbness, 03/23/17) Family History Father family history of colon cancer Social History Positive for smoking a pack a day and alcohol daily 6+ beer and Bacardi States drinking since the age of 13 is recently Physical Exam Vital Signs Vital Signs Date Time Temp Pulse Resp B/P (MAP) Pulse Ox O2 Delivery O2 Flow Rate FiO2 07/26/17 12:00 98.0 81 19 158/94 (115) 94 07/26/17 10:46 76 18 176/80 (112) 96 07/26/17 08:12 97 20 173/104 (127) 97 Room Air 07/26/17 05:17 98.5 96 16 208/105 (139) Physical Exam GENERAL: This is a well-nourished, well-developed patient, in no apparent distress. SKIN: No rashes, ecchymoses or lesions. Cool and dry. HEAD: Atraumatic. Normocephalic. No temporal or scalp tenderness. EYES: Pupils equal round and reactive. Extraocular motions intact. No scleral icterus. No injection or drainage. ENT: Nose without bleeding, purulent drainage or septal hematoma. Throat without erythema, tonsillar hypertrophy or exudate. Uvula midline. Airway patent. NECK: Trachea midline. No JVD or lymphadenopathy. Supple, nontender, no meningeal signs. CARDIOVASCULAR: Regular rate and rhythm without murmurs, gallops, or rubs. RESPIRATORY: Clear to auscultation. Breath sounds equal bilaterally. No wheezes , rales, or rhonchi. GASTROINTESTINAL: Abdomen soft, mild tenderness in epigastric and periumbilical areas. No rebound tenderness. EXTREMITIES: No cyanosis or edema. Some superficial abrasions over R upper extremity. Laboratory Laboratory Tests Test 07/26/17 05:30 07/26/17 11:03 White Blood Count 5.1 Red Blood Count 4.66 Hemoglobin 12.7 13.0 Hematocrit 37.5 39.2 Mean Corpuscular Volume 80.4 Mean Corpuscular Hemoglobin 27.3 Mean Corpuscular Hemoglobin Concent 33.9 Red Cell Distribution Width 18.9 Platelet Count 69 Mean Platelet Volume 8.3 Neutrophils (%) (Auto) 73.7 Lymphocytes (%) (Auto) 8.0 Monocytes (%) (Auto) 17.2 Eosinophils (%) (Auto) 0.8 Basophils (%) (Auto) 0.3 Neutrophils # (Auto) 3.8 Lymphocytes # (Auto) 0.4 Monocytes # (Auto) 0.9 Eosinophils # (Auto) 0.0 Basophils # (Auto) 0.0 CBC Comment AUTO DIFF Differential Comment AUTO DIFF CONFIRMED Platelet Estimate LOW Platelet Morphology Comment NORMAL Prothrombin Time 11.5 Prothromb Time International Ratio 1.1 Activated Partial Thromboplast Time 30.1 Blood Urea Nitrogen 8 Creatinine 0.66 Random Glucose 183 Total Protein 6.6 Albumin 3.3 Calcium Level 8.2 Alkaline Phosphatase 142 Aspartate Amino Transf (AST/SGOT) 35 Alanine Aminotransferase (ALT/SGPT) 20 Total Bilirubin 0.8 Sodium Level 145 Potassium Level 3.8 Chloride Level 110 Carbon Dioxide Level 25.0 Anion Gap 10 Estimat Glomerular Filtration Rate 126 Lipase 191 120 Phosphorus Level 1.9 Magnesium Level 1.9 Result Diagram: 07/26/17 1103 07/26/17529 Imaging Last Impressions Abdomen/Pelvis CT 07/26/17517 Signed Impressions: Service Date/Time: Wednesday, July 26, 2017 07:34 - CONCLUSION: 1. Heterogeneous liver characteristic for hepatocellular disease such as cirrhosis. 2. Splenomegaly. 3. Varices are seen in the upper abdomen near the GE junction. 4. Small to moderate hiatal hernia at the GE junction 5. Trace of fluid by the liver. Edema throughout the mesentery. No significant ascites. 6. Multiple gallstones in the gallbladder. No biliary tract obstruction. Josue Hopkins MD Chest X-Ray 07/26/17515 Signed Impressions: Service Date/Time: Wednesday, July 26, 2017 05:54 - CONCLUSION: Normal examination. MD Nikki Pedersen Jr. VTE Risk Assessment Caprinlivier VTE Risk Assessment: Mod/High Risk (score >= 2) Caprini Risk Assessment Model Point Value = 1 Point Value = 2 Point Value = 3 Point Value = 5 Age 41-60 Minor surgery BMI > 25 kg/m2 Swollen legs Varicose veins or History of unexplained or recurrent spontaneous Oral contraceptives or hormone replacement Sepsis (< 1 month) Serious lung disease, including pneumonia (< 1 month) Abnormal pulmonary function Acute myocardial infarction Congestive heart failure (< 1 month) History of inflammatory bowel disease Medical patient at bed rest Age 61-74 Arthroscopic surgery Major open surgery (> 45 min) Laparoscopic surgery (> 45 min) Malignancy Confined to bed (> 72 hours) Immobilizing plaster cast Central venous access Age >= 75 History of VTE Family history of VTE Factor V Leiden Prothrombin [id number] Lupus anticoagulant Anticardiolipin antibodies Elevated serum homocysteine Heparin-induced thrombocytopenia Other congenital or acquired thrombophilia Stroke (< 1 month) Elective arthroplasty Hip, pelvis, or leg fracture Acute spinal cord injury (< 1 month) Prophylaxis Regimen Total Risk Factor Score Risk Level Prophylaxis Regimen 0-1 Low Early ambulation 2 Moderate Order ONE of the following: *Sequential Compression Device (SCD) *Heparin 5000 units SQ BID 3-4 Higher Order ONE of the following medications: *Heparin 5000 units SQ TID *Enoxaparin/Lovenox 40 mg SQ daily (WT < 150 kg, CrCl > 30 mL/min) *Enoxaparin/Lovenox 30 mg SQ daily (WT < 150 kg, CrCl > 10-29 mL/min) *Enoxaparin/Lovenox 30 mg SQ BID (WT < 150 kg, CrCl > 30 mL/min) AND/OR *Sequential Compression Device (SCD) 5 or more Highest Order ONE of the following medications: *Heparin 5000 units SQ TID (Preferred with Epidurals) *Enoxaparin/Lovenox 40 mg SQ daily (WT < 150 kg, CrCl > 30 mL/min) *Enoxaparin/Lovenox 30 mg SQ daily (WT < 150 kg, CrCl > 10-29 mL/min) *Enoxaparin/Lovenox 30 mg SQ BID (WT < 150 kg, CrCl > 30 mL/min) AND *Sequential Compression Device (SCD) Assessment and Plan Assessment and Plan GIB - upper GI bleed H/o esophageal varices with band ligation in the past Epigastric pain Ascites/ liver cirrhosis EtOH use with withdrawal symptoms NPO Consult GI Start IV protonix , start Octreotide IV Plan for EGD Start CIWA protocol, thiamine,folate , MVT supplement. Counselled regarding EtOH use. Continue home meds as appropriate DVT ppx scd/teds. CI chemical ppx as patient with active bleeding Discussed Condition With pt, nurse, ED physician Physician Certification 2 Midnight Certification Type: Admission for Inpatient Services Order for Inpatient Services The services are ordered in accordance with Medicare regulations or non- Medicare payer requirements, as applicable. In the case of services not specified as inpatient-only, they are appropriately provided as inpatient services in accordance with the 2-midnight benchmark. Estimated LOS (days): 3 days is the estimated time the patient will need to remain in the hospital, assuming treatment plan goals are met and no additional complications. Post-Hospital Plan: Home Marcia Michelle MD July 26, 2017 15:16
--- NOTE | 2017-07-26 16:28 | GIPROC ---
[facility] [address] [facility]. [facility], [address] EGD PROCEDURE REPORT EXAM DATE: 07/26/2017 PATIENT NAME: Noe Koroma MR #: [id number] BIRTHDATE: 1965 ATTENDING: Ina May MD ORDER #: [id number] CUSTOMER SERVICE ATTENDANT: Demetria Garcia and Jojo Fish STATUS: inpatient INDICATIONS: The patient is a 52 yr old male here for an EGD due to gi bleeding cirrhosis PROCEDURE PERFORMED: EGD w/ biopsy egd with control of bleeding -clip applience MEDICATIONS: None and Per Anesthesia. TOPICAL ANESTHETIC: none CONSENT: The patient understands the risks and benefits of the procedure and understands that these risks include, but are not limited to: sedation, allergic reaction, infection, perforation and/or bleeding. Alternative means of evaluation and treatment include, among others: physical exam, x-rays, and/or surgical intervention. The patient elects to proceed with this endoscopic procedure. medical equipment was checked for proper function. Hand hygiene and appropriate measures for infection prevention was taken. After the risks, benefits and alternatives of the procedure were thoroughly explained, Informed consent was verified, confirmed and timeout was successfully executed by the treatment team. The patient was anesthetized with topical anesthesia and the Pentax [id number] endoscope was introduced through the mouth and advanced to the second portion of the duodenum. Retroflexed views revealed a hiatal hernia The gastroscope was then slowly withdrawn and removed. Portal gastropathy-biopsy antrum MW tear EG junction-some bleeding-1 clip applied-no further bleeding esophagitis-distal esophagus-biopsy esophageal varices grade 2 -midesophagus-no signs of recent bleeding , most likley bleeding due to MW tear at this point. ADVERSE EVENTS: There were no complications. IMPRESSIONS: 1. Portal gastropathy-biopsy antrum MW tear EG junction-some bleeding-1 clip applied-no further bleeding esophagitis-distal esophagus-biopsy esophageal varices grade 2 -midesophagus-no signs of recent bleeding , most likley bleeding due to MW tear at this point 2. Retroflexed views revealed a hiatal hernia RECOMMENDATIONS: 1. Await biopsy results. Biopsy results will not be ready for 7-10 days. If you don't hear from us in two weeks, call our office for biopsy results. 2. Anti-reflux regimen 3. Clear liquid diet ppi octreotide drip Rocephine iv PATIENT CONDITION: stable DISPOSITION: Inpatient REPEAT EXAM: Return as needed for EGD with banding Ina May MD eSigned: Ina May MD 07/26/2017 4:28 PM cc: PATIENT NAME: Noe Koroma MR#: [id number]
[2017-07-26] MEDS ORDERED: DO NOT ADM ANY ANTICOAGULANT DRUGS PRN (17:15)
[2017-07-26] MEDS: cefTRIAXone INJ 2,000 MG in SODIUM CHLORIDE 0.9% INJ 100 ML IV SCH (17:47)
[2017-07-26] MEDS: AMITRIPTYLINE HCL 10 MG TAB PO SCH (19:33)
[2017-07-26] MEDS: SODIUM CHLORIDE 0.9% FLUSH 10 ML FLUSH IV FLUSH SCH (19:34)
[2017-07-26] MEDS: PANTOPRAZOLE SODIUM 40 MG VIAL IV PUSH SCH (19:34)
[2017-07-26] MEDS: DOCUSATE SODIUM 50 MG/SENNA 8.6 MG TAB PO SCH (19:34)
[2017-07-26] MEDS ORDERED: SODIUM CHLORIDE 0.9% FLUSH 10 ML FLUSH IV FLUSH SCH ×2 (21:00)
[2017-07-26 21:57] LABS: HEMATOCRIT 37.8 % (39.0-51.0); HEMOGLOBIN 12.5 GM/DL (13.0-17.0)
[2017-07-27] VITALS (7 sets, daily range): BP systolic 131–158; BP diastolic 72–88; PULSE 72–87; RESP 16–18; TEMP 97.8–100.3; O2SAT 95–98
[2017-07-27] MEDS: SODIUM CHLOR 0.9% 1000 ML INJ 1,000 ML IV SCH ×2 (06:00→16:00)
[2017-07-27 08:29] LABS: AUTOMATED NEUTROPHIL # 1.8 TH/MM3 (1.8-7.7); BASOPHIL % 0.8 % (0.0-2.0); EOSINOPHIL # 0.1 TH/MM3 (0-0.4); EOSINOPHIL % 3.6 % (0.0-4.0); HEMATOCRIT 37.5 % (39.0-51.0); HEMOGLOBIN 12.4 GM/DL (13.0-17.0); LYMPH % 17.6 % (9.0-44.0); LYMPHOCYTE # 0.6 TH/MM3 (1.0-4.8); MEAN CORPUSCULAR HEMOGLOBIN 26.7 PG (27.0-34.0); MEAN PLATELET VOLUME 8.3 FL (7.0-11.0); MONO % 19.7 % (0.0-8.0); MONOCYTE # 0.6 TH/MM3 (0-0.9); NEUT % 58.3 % (16.0-70.0); PLATELET COUNT 54 TH/MM3 (150-450); RED BLOOD COUNT 4.63 MIL/MM3 (4.50-5.90); RED CELL DISTRIBUTION WIDTH 18.6 % (11.6-17.2); WHITE BLOOD COUNT 3.1 TH/MM3 (4.0-11.0)
[2017-07-27 08:51] LABS: ALBUMIN 2.9 GM/DL (3.4-5.0); AST (GOT) 29 U/L (15-37); BLOOD UREA NITROGEN 8 MG/DL (7-18); CALCIUM 7.7 MG/DL (8.5-10.1); CHLORIDE 107 MEQ/L (98-107); CREATININE 0.58 MG/DL (0.60-1.30); GLOMERULAR FILTRATION RATE 147 ML/MIN (>89); GLUCOSE,RANDOM 105 MG/DL (74-106); SODIUM (NA) 143 MEQ/L (136-145)
[2017-07-27 08:53] LABS: ALKALINE PHOSPHATASE 116 U/L (45-117); ALT (GPT) 16 U/L (12-78); TOTAL BILIRUBIN ADULT 1.4 MG/DL (0.2-1.0); TOTAL PROTEIN 6.1 GM/DL (6.4-8.2)
[2017-07-27] MEDS ORDERED: POTASSIUM PHOSPHATE INJ 15 MMOL in SODIUM CHLORIDE 0.9% INJ 150 ML IV ONE (09:00)
--- NOTE | 2017-07-27 09:13 | HHI.PR ---
Subjective Remarks Follow-up for hematemesis, nausea/vomiting. Patient reports feeling slightly better today. He states his abdominal pain has improved overnight. He continues to have intermittent nausea, but no vomiting since yesterday. He has not had a bowel movement in 2-3 days, however has had decreased oral intake recently. Denies any fevers or chills. He admits to drinking alcohol heavily, 12+ beers a day with a bottle of liquor. He states he feels like he might be starting to withdraw "a little bit". Denies any other medical complaints at this time. Objective Vitals Vital Signs Date Time Temp Pulse Resp B/P (MAP) Pulse Ox O2 Delivery O2 Flow Rate FiO2 07/27/17 08:08 98.9 77 16 158/77 (104) 98 07/27/17 04:46 84 07/27/17 03:36 98.1 83 18 144/75 (98) 98 07/27/17 00:42 82 07/26/17 23:30 98.6 72 18 141/88 (105) 96 07/26/17 20:08 97 Nasal Cannula 3.00 07/26/17 19:59 90 07/26/17 19:57 98.3 85 16 139/81 (100) 98 07/26/17 17:30 100.3 82 17 147/79 (101) 97 07/26/17 17:10 90 14 133/76 (95) 98 Nasal Cannula 2 07/26/17 16:45 92 14 145/83 (103) 97 Nasal Cannula 2 07/26/17 16:35 97.9 99 14 153/80 (104) 97 Nasal Cannula 2 07/26/17 12:00 98.0 81 19 158/94 (115) 94 07/26/17 11:50 82 07/26/17 10:46 76 18 176/80 (112) 96 I/O 07/26/17 07/26/17 07/26/17 07/27/17 07/27/17 07/27/17 06:59 14:59 22:59 06:59 14:59 22:59 Intake Total 1500 ml Output Total 1500 ml Balance -1500 ml 1500 ml Intake IV Total 1000 ml Other 500 ml Output Urine Total 1500 ml # Voids 4 Result Diagram: 07/27/1728 07/27/17727 Imaging Last Impressions Abdomen/Pelvis CT 07/26/17517 Signed Impressions: Service Date/Time: Wednesday, July 26, 2017 07:34 - CONCLUSION: 1. Heterogeneous liver characteristic for hepatocellular disease such as cirrhosis. 2. Splenomegaly. 3. Varices are seen in the upper abdomen near the GE junction. 4. Small to moderate hiatal hernia at the GE junction 5. Trace of fluid by the liver. Edema throughout the mesentery. No significant ascites. 6. Multiple gallstones in the gallbladder. No biliary tract obstruction. Josue Hopkins MD Chest X-Ray 07/26/17515 Signed Impressions: Service Date/Time: Wednesday, July 26, 2017 05:54 - CONCLUSION: Normal examination. Mynor Lebron Jr., MD Objective Remarks GENERAL: Well-nourished, well-developed middle-aged male patient in [facility]. Sleeping upon my arrival, easily awakens to voice. SKIN: Warm and dry. No rash. HEENT: Normocephalic. Atraumatic. Pupils equal and round. Mucous membranes pink and moist. CARDIOVASCULAR: Regular rate and rhythm. No murmur appreciated. RESPIRATORY: No accessory muscle use. Clear to auscultation. Breath sounds equal bilaterally. GASTROINTESTINAL: Abdomen soft, non-tender, nondistended. Normoactive bowel sounds x4. MUSCULOSKELETAL: No obvious deformities. Extremities without clubbing, cyanosis , or edema. NEUROLOGICAL: Awake and alert. No obvious cranial nerve deficits. Motor grossly within normal limits. Moving all extremities spontaneously. Normal speech. PSYCHIATRIC: Appropriate mood and affect; insight and judgment normal. Procedures 07/26/17EGD by Dr. May showed portal gastropathy, Yanci-Hutton tear at EG junction with some bleeding noted, 1 clip applied, distal esophagitis, esophageal varices grade 2 Medications and IVs Current Medications Medications (Trade) Dose Ordered Sig/Cece Route Start Time Stop Time Status Last Admin Sodium Chloride 1,000 ml @ 100 mls/hr Q10H IV 07/26/17 10:00 07/27/17 06:00 (Reglan Inj) 5 mg Q6H PRN IV PUSH 07/26/17 09:30 07/26/17 17:47 (Narcan Inj) 0.4 mg UNSCH PRN IV PUSH 07/26/17 09:30 (Joanne-Colace) 1 tab BID PO 07/26/17 21:00 07/27/17 09:57 (Milk Of Magnesia Liq) 30 ml Q12H PRN PO 07/26/17 09:30 (Senokot) 17.2 mg Q12H PRN PO 07/26/17 09:30 (Dulcolax Supp) 10 mg DAILY PRN RECTAL 07/26/17 09:30 (Lactulose Liq) 30 ml DAILY PRN PO 07/26/17 09:30 (Protonix Inj) 40 mg BID IV PUSH 07/26/17 21:00 07/27/17 09:56 (Elavil) 20 mg HS PO 07/26/17 21:00 07/26/17 19:33 (Lasix) 40 mg DAILY PO 07/27/17 09:00 07/27/17 09:57 (Neurontin) 400 mg TID PO 07/26/17 13:00 07/27/17 09:57 (Ultram) 50 mg Q8H PRN PO 07/26/17 09:45 (NS Flush) 2 ml UNSCH PRN IV FLUSH 07/26/17 09:45 (NS Flush) 2 ml BID IV FLUSH 07/26/17 21:00 07/27/17 09:56 (Folate) 1 mg DAILY PO 07/27/17 09:00 08/01/17 08:59 07/27/17 09:57 (Vitamin B1) 100 mg DAILY PO 07/27/17 09:00 07/27/17 09:57 (Theragran M Tab) 1 tab DAILY PO 07/27/17 09:00 08/01/17 08:59 07/27/17 09:57 (Romazicon Inj) 0.2 mg Q1M PRN IV PUSH 07/26/17 09:45 (Ativan) 1 mg Q4H PRN PO 07/26/17 09:45 07/26/17 17:48 (Ativan Inj) 1 mg Q4H PRN IV PUSH 07/26/17 09:45 (Ativan) 2 mg Q2H PRN PO 07/26/17 09:45 (Ativan Inj) 2 mg Q2H PRN IV PUSH 07/26/17 09:45 07/26/17 19:33 (Ativan Inj) 2 mg Q1H PRN IV PUSH 07/26/17 09:45 (Ativan Inj) 2 mg Q15M PRN IV PUSH 07/26/17 09:45 Ceftriaxone Sodium 2000 mg/ Sodium Chloride 100 ml @ 200 mls/hr Q24H IV 07/26/17 18:00 07/26/17 17:47 ([facility]) ALL NURSING DEPARTME... UNSCH PRN .XX 07/26/17 17:15 07/27/17 17:14 (Lactulose Liq) 30 ml BID PO 07/27/17 09:00 07/27/17 09:57 Potassium Phosphate 15 mmol/ Sodium Chloride 155 ml @ 38.75 mls/ hr ONCE ONCE IV 07/27/17 09:00 07/27/17 12:59 07/27/17 09:55 A/P Assessment and Plan 52-year-old male with history of type 2 diabetes, hypertension, alcohol abuse, cirrhosis, portal hypertension, esophageal varices, anxiety/depression, presents with nausea/vomiting/hematemesis. GI bleeding: With hematemesis. Ongoing alcohol abuse. Known history of esophageal varices on prior EGD in April 2017. -Abdomen/pelvis CT reviewed, shows heterogenous liver characteristic for hepatocellular disease such as cirrhosis; splenomegaly; varices and upper abdomen near the GE junction; hiatal hernia, multiple gallstones -Continue on IV Protonix bid, IV octreotide drip, IV Rocephin -Supportive treatment with IV fluid hydration, antiemetics as needed, pain control as needed -Monitor H&H, currently hgb stable 12.7 --> 13.0 --> 12.5 --> 12.4 -GI consulted -Status post EGD 07/26 showed portal gastropathy, Yanci-Hutton tear at EG junction with some bleeding noted, 1 clip applied, distal esophagitis, esophageal varices grade 2 -Diet per GI, currently on clear liquid diet Alcoholic cirrhosis with hyperammonemia: Chronic, with varices as above. Ammonia level 53. Patient is AAO 4. -Continue lactulose 30 mL's twice daily, Lasix 40 mg daily, and propranolol Alcohol abuse: Patient admits to drinking 12+ beers daily along with 750 mL's of liquor -Continue thiamine/folate/multivitamin -Continue CIWA protocol -Seizure precautions -Monitor for withdrawal Chronic pain/neuropathy: Chronic -Continue patient's gabapentin and tramadol as needed DVT prophylaxis: Teds/SCDs; avoid chemoprophylaxis with GI bleeding as above Discharge Planning Discharge pending further clinical improvement and clearance from gastroenterology. Linnette Rucker PA-C July 27, 2017 9:13 am
[2017-07-27] MEDS: SODIUM CHLORIDE 0.9% FLUSH 10 ML FLUSH IV FLUSH SCH ×2 (09:56→21:00)
[2017-07-27] MEDS: PANTOPRAZOLE SODIUM 40 MG VIAL IV PUSH SCH ×2 (09:56→21:26)
[2017-07-27] MEDS: FOLIC ACID 1 MG TAB PO SCH (09:57)
[2017-07-27] MEDS: DOCUSATE SODIUM 50 MG/SENNA 8.6 MG TAB PO SCH ×2 (09:57→21:00)
[2017-07-27] MEDS: GABAPENTIN 400 MG CAP PO SCH ×3 (09:57→18:21)
[2017-07-27] MEDS: LACTULOSE SYRUP 20 GM/30 ML CUP PO SCH ×2 (09:57→21:26)
[2017-07-27] MEDS: MULTIVITAMINS/MINERALS THERAPEUTIC TAB PO SCH (09:57)
[2017-07-27] MEDS: THIAMINE HCL 100 MG TAB PO SCH (09:57)
[2017-07-27] MEDS: FUROSEMIDE 40 MG TAB PO SCH (09:57)
--- NOTE | 2017-07-27 13:57 | EKG ---
Date Performed: 07/26/2017 Time Performed: 14:37:19 PTAGE: 52 years EKG: Sinus rhythm NORMAL ECG NO PREVIOUS TRACING DOCTOR: Fei Hernandez Interpretating Date/Time 07/27/2017 13:54:58
[2017-07-27] MEDS: PROPRANOLOL HCL 20 MG TAB PO SCH ×2 (14:26→21:38)
[2017-07-27] MEDS ORDERED: PROT40TA PO (15:07)
[2017-07-27] MEDS ORDERED: THIA100 PO (15:07)
--- NOTE | 2017-07-27 16:11 | HHI.GIFU ---
Subjective Remarks Pt resting in bed Complaining of some irritation in his throat No BM since procedure Continued nausea, denies emesis Objective Vitals I&O Vital Signs Date Time Temp Pulse Resp B/P (MAP) Pulse Ox O2 Delivery O2 Flow Rate FiO2 07/27/17 12:12 97.8 87 16 144/85 (104) 97 07/27/17 08:08 98.9 77 16 158/77 (104) 98 07/27/17 04:46 84 07/27/17 03:36 98.1 83 18 144/75 (98) 98 07/27/17 00:42 82 07/26/17 23:30 98.6 72 18 141/88 (105) 96 07/26/17 20:08 97 Nasal Cannula 3.00 07/26/17 19:59 90 07/26/17 19:57 98.3 85 16 139/81 (100) 98 07/26/17 17:30 100.3 82 17 147/79 (101) 97 07/26/17 17:10 90 14 133/76 (95) 98 Nasal Cannula 2 07/26/17 16:45 92 14 145/83 (103) 97 Nasal Cannula 2 07/26/17 16:35 97.9 99 14 153/80 (104) 97 Nasal Cannula 2 I/O 07/26/17 07/26/17 07/26/17 07/27/17 07/27/17 07/27/17 07:00 15:00 23:00 07:00 15:00 23:00 Intake Total 1500 ml Output Total 1500 ml Balance -1500 ml 1500 ml Intake IV Total 1000 ml Other 500 ml Output Urine Total 1500 ml # Voids 4 Laboratory Laboratory Tests Test 07/26/17 17:24 07/26/17 21:07 07/27/17 07:28 Ammonia 53 Hemoglobin 12.5 12.4 Hematocrit 37.8 37.5 White Blood Count 3.1 Red Blood Count 4.63 Mean Corpuscular Volume 81.0 Mean Corpuscular Hemoglobin 26.7 Mean Corpuscular Hemoglobin Concent 33.0 Red Cell Distribution Width 18.6 Platelet Count 54 Mean Platelet Volume 8.3 Neutrophils (%) (Auto) 58.3 Lymphocytes (%) (Auto) 17.6 Monocytes (%) (Auto) 19.7 Eosinophils (%) (Auto) 3.6 Basophils (%) (Auto) 0.8 Neutrophils # (Auto) 1.8 Lymphocytes # (Auto) 0.6 Monocytes # (Auto) 0.6 Eosinophils # (Auto) 0.1 Basophils # (Auto) 0.0 CBC Comment AUTO DIFF Differential Comment AUTO DIFF CONFIRMED Platelet Estimate LOW Platelet Morphology Comment NORMAL Blood Urea Nitrogen 8 Creatinine 0.58 Random Glucose 105 Total Protein 6.1 Albumin 2.9 Calcium Level 7.7 Alkaline Phosphatase 116 Aspartate Amino Transf (AST/SGOT) 29 Alanine Aminotransferase (ALT/SGPT) 16 Total Bilirubin 1.4 Sodium Level 143 Potassium Level 3.8 Chloride Level 107 Carbon Dioxide Level 28.0 Anion Gap 8 Estimat Glomerular Filtration Rate 147 Imaging Last Impressions Abdomen/Pelvis CT 07/26/17 0518 Signed Impressions: Service Date/Time: Wednesday, July 26, 2017 07:34 - CONCLUSION: 1. Heterogeneous liver characteristic for hepatocellular disease such as cirrhosis. 2. Splenomegaly. 3. Varices are seen in the upper abdomen near the GE junction. 4. Small to moderate hiatal hernia at the GE junction 5. Trace of fluid by the liver. Edema throughout the mesentery. No significant ascites. 6. Multiple gallstones in the gallbladder. No biliary tract obstruction. Josue Hopkins MD Chest X-Ray 07/26/17 0516 Signed Impressions: Service Date/Time: Wednesday, July 26, 2017 05:54 - CONCLUSION: Normal examination. Mynor Lebron Jr., MD Physical Exam HEENT: Normocephalic; atraumatic CHEST: Even/unlabored CARDIAC: RRR ABDOMEN: Soft, nontender, nondistended, bowel sounds active HEMP FIBER TAKER OFF: Alert and oriented times three. Assessment and Plan Assessment: (1) GI bleed ICD Codes: K92.2 - Gastrointestinal hemorrhage, unspecified Status: Acute (2) Alcohol abuse ICD Codes: F10.10 - Alcohol abuse, uncomplicated Status: Acute Plan Assessment: - Nausea, vomiting with hematemesis History of EGD with banding in Apr 2017 EGD (07/26) --> Portal gastropathy. MW tear EG junction some bleeding 1 clip applied- no further bleeding. Esophagitis, distal esophagus. Esophageal varices grade 2- midesophagus- no signs of recent bleeding, most likely bleeding due to MW tear at this point. Hiatal hernia. - ETOH abuse with known cirrhosis- not currently followed outpatient by a GI doctor, recently moved to this area. Reports drinking beer and liquor daily. Last paracentesis done 2 years ago Current LFTs: AST-29 ALT-16 Alk phos-116 T bili-1.4 Thrombocytopenia (platelets-54) Hypoalbuminemia (albumin-2.9) No coagulopathy CT abdomen and pelvis W IV contrast (07/26) --> Heterogeneous liver characteristic for hepatocellular disease such as cirrhosis. Splenomegaly. Varices are seen in the upper abdomen near the GE junction. Small to moderate hiatal hernia at the GE junction. Trace of fluid by the liver. Edema throughout the mesentery. No significant ascites. Multiple gallstones in the gallbladder. No biliary tract obstruction. (07/27) H/H remains stable over night, no emesis since EGD. Complaining of some continued nausea and sore throat that began after the procedure. Plan Inderal Lasix Lactulose Protonix Heart healthy diet Monitor labs Supportive care- medication as needed to treat withdraws and antiemetics Further recommendations based on clinical course Patient has been seen and examined by myself and Dr. May and this note is written on her behalf Gerri Saravia July 27, 2017 16:11
[2017-07-27] MEDS: cefTRIAXone INJ 2,000 MG in SODIUM CHLORIDE 0.9% INJ 100 ML IV SCH (18:20)
[2017-07-27] MEDS: METOCLOPRAMIDE HCL 10 MG/2 ML VIAL IV PUSH PRN (19:11)
[2017-07-27] MEDS: AMITRIPTYLINE HCL 10 MG TAB PO SCH (21:27)
[2017-07-28] MEDS: SODIUM CHLOR 0.9% 1000 ML INJ 1,000 ML IV SCH ×3 (00:56→22:00)
[2017-07-28 03:08] VITALS: BP 130/76; PULSE 74; RESP 18; TEMP 99; O2SAT 99
[2017-07-28] MEDS: PROPRANOLOL HCL 20 MG TAB PO SCH ×3 (06:34→23:29)
[2017-07-28] MEDS: METOCLOPRAMIDE HCL 10 MG/2 ML VIAL IV PUSH PRN (06:40)
[2017-07-28 07:24] VITALS: BP 135/66; PULSE 83; RESP 18; TEMP 98.7; O2SAT 97
[2017-07-28] MEDS ORDERED: ALUMINUM/MAGNESIUM/SIMETH 30 ML CUP PO PRN (07:45)
[2017-07-28] MEDS ORDERED: ONDANSETRON ODT 4 MG TAB PO PRN (07:45)
[2017-07-28] MEDS: SODIUM CHLORIDE 0.9% FLUSH 10 ML FLUSH IV FLUSH SCH ×2 (09:00→21:00)
--- NOTE | 2017-07-28 09:01 | HHI.PR ---
Subjective Remarks Follow up for hematemesis/nausea/vomiting. The patient reports feeling worse again this morning with intractable nausea and dry heaving. No vomiting. He states he only has abdominal pain when he starts dry heaving. Had nonbloody diarrhea BM overnight. He states he feels like he is starting to withdraw from alcohol with chills and sweats. Denies fever. Denies any other medical complaints at this time. Objective Vitals Vital Signs Date Time Temp Pulse Resp B/P (MAP) Pulse Ox O2 Delivery O2 Flow Rate FiO2 07/28/17 07:24 98.7 83 18 135/66 (89) 97 07/28/17 03:08 99.0 74 18 130/76 (94) 99 07/27/17 23:19 99.1 72 18 131/72 (91) 95 07/27/17 19:27 100.3 80 18 155/88 (110) 98 07/27/17 12:12 97.8 87 16 144/85 (104) 97 I/O 07/27/17 07/27/17 07/27/17 07/28/17 07/28/17 07/28/17 07:00 15:00 23:00 07:00 15:00 23:00 Intake Total 800 ml Output Total 3350 ml Balance -2550 ml Intake Oral 800 ml Output Urine Total 3350 ml Result Diagram: 07/27/1772707/27/17727 Imaging Last Impressions Abdomen/Pelvis CT 07/26/17517 Signed Impressions: Service Date/Time: Wednesday, July 26, 2017 07:34 - CONCLUSION: 1. Heterogeneous liver characteristic for hepatocellular disease such as cirrhosis. 2. Splenomegaly. 3. Varices are seen in the upper abdomen near the GE junction. 4. Small to moderate hiatal hernia at the GE junction 5. Trace of fluid by the liver. Edema throughout the mesentery. No significant ascites. 6. Multiple gallstones in the gallbladder. No biliary tract obstruction. Josue Hopkins MD Chest X-Ray 07/26/17515 Signed Impressions: Service Date/Time: Wednesday, July 26, 2017 05:54 - CONCLUSION: Normal examination. Mynor Lebron Jr., MD Objective Remarks GENERAL: Well-nourished, well-developed middle-aged male patient in [facility]. SKIN: Warm and dry. No rash. HEENT: Normocephalic. Atraumatic. Pupils equal and round. Mucous membranes pink and moist. CARDIOVASCULAR: Regular rate and rhythm. No murmur appreciated. RESPIRATORY: No accessory muscle use. Clear to auscultation. Breath sounds equal bilaterally. GASTROINTESTINAL: Abdomen soft, non-tender, nondistended. Normoactive bowel sounds x4. MUSCULOSKELETAL: No obvious deformities. Extremities without clubbing, cyanosis , or edema. NEUROLOGICAL: Awake and alert. No obvious cranial nerve deficits. Motor grossly within normal limits. Moving all extremities spontaneously. Normal speech. PSYCHIATRIC: Appropriate mood and affect; insight and judgment normal. Procedures 07/26/17EGD by Dr. May showed portal gastropathy, Yanci-Hutton tear at EG junction with some bleeding noted, 1 clip applied, distal esophagitis, esophageal varices grade 2 Medications and IVs Current Medications Medications (Trade) Dose Ordered Sig/Cece Route Start Time Stop Time Status Last Admin Sodium Chloride 1,000 ml @ 100 mls/hr Q10H IV 07/26/17 10:00 07/27/17 06:00 (Reglan Inj) 5 mg Q6H PRN IV PUSH 07/26/17 09:30 07/28/17 06:40 (Narcan Inj) 0.4 mg UNSCH PRN IV PUSH 07/26/17 09:30 (Joanne-Colace) 1 tab BID PO 07/26/17 21:00 07/27/17 09:57 (Milk Of Magnesia Liq) 30 ml Q12H PRN PO 07/26/17 09:30 (Senokot) 17.2 mg Q12H PRN PO 07/26/17 09:30 (Dulcolax Supp) 10 mg DAILY PRN RECTAL 07/26/17 09:30 (Lactulose Liq) 30 ml DAILY PRN PO 07/26/17 09:30 (Protonix Inj) 40 mg BID IV PUSH 07/26/17 21:00 07/27/17 21:26 (Elavil) 20 mg HS PO 07/26/17 21:00 07/27/17 21:27 (Lasix) 40 mg DAILY PO 07/27/17 09:00 07/27/17 09:57 (Neurontin) 400 mg TID PO 07/26/17 13:00 07/27/17 18:21 (Ultram) 50 mg Q8H PRN PO 07/26/17 09:45 07/27/17 18:21 (NS Flush) 2 ml UNSCH PRN IV FLUSH 07/26/17 09:45 (NS Flush) 2 ml BID IV FLUSH 07/26/17 21:00 07/27/17 09:56 (Folate) 1 mg DAILY PO 07/27/17 09:00 08/01/17 08:59 07/27/17 09:57 (Vitamin B1) 100 mg DAILY PO 07/27/17 09:00 07/27/17 09:57 (Theragran M Tab) 1 tab DAILY PO 07/27/17 09:00 08/01/17 08:59 07/27/17 09:57 (Romazicon Inj) 0.2 mg Q1M PRN IV PUSH 07/26/17 09:45 (Ativan) 1 mg Q4H PRN PO 07/26/17 09:45 07/26/17 17:48 (Ativan Inj) 1 mg Q4H PRN IV PUSH 07/26/17 09:45 (Ativan) 2 mg Q2H PRN PO 07/26/17 09:45 (Ativan Inj) 2 mg Q2H PRN IV PUSH 07/26/17 09:45 07/26/17 19:33 (Ativan Inj) 2 mg Q1H PRN IV PUSH 07/26/17 09:45 (Ativan Inj) 2 mg Q15M PRN IV PUSH 07/26/17 09:45 Ceftriaxone Sodium 2000 mg/ Sodium Chloride 100 ml @ 200 mls/hr Q24H IV 07/26/17 18:00 07/27/17 18:20 (Lactulose Liq) 30 ml BID PO 07/27/17 09:00 07/27/17 21:26 (Inderal) 20 mg Q8HR PO 07/27/17 14:00 07/28/17 06:34 (Mag-Al Plus Susp Liq) 30 ml Q6H PRN PO 07/28/17 07:45 07/28/17 08:42 (Zofran Odt) 4 mg Q6H PRN PO 07/28/17 07:45 07/28/17 08:41 A/P Assessment and Plan 52-year-old male with history of type 2 diabetes, hypertension, alcohol abuse, cirrhosis, portal hypertension, esophageal varices, anxiety/depression, presents with nausea/vomiting/hematemesis. GI bleeding: With hematemesis. Ongoing alcohol abuse. Known history of esophageal varices on prior EGD in April 2017. -Abdomen/pelvis CT reviewed, shows heterogenous liver characteristic for hepatocellular disease such as cirrhosis; splenomegaly; varices and upper abdomen near the GE junction; hiatal hernia, multiple gallstones -Continue on IV Protonix bid, IV Rocephin, Inderal 20mg q8h -S/p IV Octreotide, now discontinued -Supportive treatment with IV fluid hydration, antiemetics as needed, pain control as needed -Monitor H&H, currently hgb stable 12.7 --> 13.0 --> 12.5 --> 12.4 -GI consulted, appreciate assistance -S/p EGD 07/26 showed portal gastropathy, Yanci-Hutton tear at EG junction with some bleeding noted, 1 clip applied, distal esophagitis, esophageal varices grade 2 -Diet per GI, advanced to soft diet Alcoholic cirrhosis with hyperammonemia: Chronic, with varices as above. Ammonia level 53. Patient is AAO 4. -Continue lactulose 30 mL's twice daily, Lasix 40 mg daily, and propranolol Alcohol abuse with Alcohol Withdrawal: Patient admits to drinking 12+ beers daily along with 750 mL's of liquor -Continue thiamine/folate/multivitamin -Continue CIWA protocol -Seizure precautions Chronic pain/neuropathy: Chronic -Continue patient's gabapentin and tramadol as needed DVT prophylaxis: Teds/SCDs; avoid chemoprophylaxis with GI bleeding as above Discharge Planning Discharge pending further clinical improvement and clearance from gastroenterology. Not yet ready for discharge. Linnette Rucker PA-C July 28, 2017 9:01 am
[2017-07-28 09:36] VITALS: O2SAT 97
[2017-07-28] MEDS: PANTOPRAZOLE SODIUM 40 MG VIAL IV PUSH SCH ×2 (10:18→23:28)
[2017-07-28] MEDS: LACTULOSE SYRUP 20 GM/30 ML CUP PO SCH ×2 (10:20→23:28)
[2017-07-28] MEDS: FUROSEMIDE 40 MG TAB PO SCH (10:21)
[2017-07-28] MEDS: GABAPENTIN 400 MG CAP PO SCH ×3 (10:21→18:44)
[2017-07-28] MEDS: THIAMINE HCL 100 MG TAB PO SCH (10:22)
[2017-07-28] MEDS: MULTIVITAMINS/MINERALS THERAPEUTIC TAB PO SCH (10:23)
[2017-07-28] MEDS: DOCUSATE SODIUM 50 MG/SENNA 8.6 MG TAB PO SCH ×2 (10:23→21:00)
[2017-07-28] MEDS: FOLIC ACID 1 MG TAB PO SCH (10:23)
[2017-07-28 11:41] VITALS: BP 140/82; PULSE 83; RESP 18; TEMP 97.6; O2SAT 95
[2017-07-28 13:38] LABS: AUTOMATED NEUTROPHIL # 4.1 TH/MM3 (1.8-7.7); BASOPHIL % 0.5 % (0.0-2.0); EOSINOPHIL # 0.1 TH/MM3 (0-0.4); EOSINOPHIL % 1.1 % (0.0-4.0); HEMATOCRIT 40.2 % (39.0-51.0); HEMOGLOBIN 13.5 GM/DL (13.0-17.0); LYMPH % 5.7 % (9.0-44.0); LYMPHOCYTE # 0.3 TH/MM3 (1.0-4.8); MEAN CELL VOLUME 80.4 FL (80.0-100.0); MEAN CORPUSCULAR HGB CONC 33.6 % (32.0-36.0); MEAN PLATELET VOLUME 8.3 FL (7.0-11.0); MONO % 7.9 % (0.0-8.0); MONOCYTE # 0.4 TH/MM3 (0-0.9); NEUT % 84.8 % (16.0-70.0); PLATELET COUNT 63 TH/MM3 (150-450); RED CELL DISTRIBUTION WIDTH 18.5 % (11.6-17.2); WHITE BLOOD COUNT 4.8 TH/MM3 (4.0-11.0)
[2017-07-28 14:06] LABS: ALBUMIN 3.2 GM/DL (3.4-5.0); AST (GOT) 33 U/L (15-37); BICARBONATE 27.5 MEQ/L (21.0-32.0); BLOOD UREA NITROGEN 9 MG/DL (7-18); CALCIUM 8.1 MG/DL (8.5-10.1); CHLORIDE 104 MEQ/L (98-107); CREATININE 0.85 MG/DL (0.60-1.30); GLOMERULAR FILTRATION RATE 94 ML/MIN (>89); GLUCOSE,RANDOM 189 MG/DL (74-106); SODIUM (NA) 140 MEQ/L (136-145)
[2017-07-28 14:08] LABS: ALT (GPT) 21 U/L (12-78)
[2017-07-28 14:10] LABS: ALKALINE PHOSPHATASE 137 U/L (45-117); TOTAL BILIRUBIN ADULT 1.7 MG/DL (0.2-1.0); TOTAL PROTEIN 6.7 GM/DL (6.4-8.2)
[2017-07-28 16:08] VITALS: BP 132/70; PULSE 80; RESP 18; TEMP 98.4; O2SAT 96
--- NOTE | 2017-07-28 17:04 | HHI.GIFU ---
Subjective Remarks Pt is resting in bed, reports nausea this am but no vomiting or hematemesis. Had BM today with no hematochezia or melena (MichelleLynnkwame CARTAGENA) Objective Vitals I&O Vital Signs Date Time Temp Pulse Resp B/P (MAP) Pulse Ox O2 Delivery O2 Flow Rate FiO2 07/28/17 16:08 98.4 80 18 132/70 (90) 96 07/28/17 11:41 97.6 83 18 140/82 (101) 95 07/28/17 09:36 97 21 07/28/17 07:24 98.7 83 18 135/66 (89) 97 07/28/17 03:08 99.0 74 18 130/76 (94) 99 07/27/17 23:19 99.1 72 18 131/72 (91) 95 07/27/17 19:27 100.3 80 18 155/88 (110) 98 I/O 07/27/17 07/27/17 07/27/17 07/28/17 07/28/17 07/28/17 07:00 15:00 23:00 07:00 15:00 23:00 Intake Total 800 ml Output Total 3350 ml Balance -2550 ml Intake Oral 800 ml Output Urine Total 3350 ml Laboratory Laboratory Tests Test 07/28/17 13:03 White Blood Count 4.8 Red Blood Count 5.00 Hemoglobin 13.5 Hematocrit 40.2 Mean Corpuscular Volume 80.4 Mean Corpuscular Hemoglobin 27.0 Mean Corpuscular Hemoglobin Concent 33.6 Red Cell Distribution Width 18.5 Platelet Count 63 Mean Platelet Volume 8.3 Neutrophils (%) (Auto) 84.8 Lymphocytes (%) (Auto) 5.7 Monocytes (%) (Auto) 7.9 Eosinophils (%) (Auto) 1.1 Basophils (%) (Auto) 0.5 Neutrophils # (Auto) 4.1 Lymphocytes # (Auto) 0.3 Monocytes # (Auto) 0.4 Eosinophils # (Auto) 0.1 Basophils # (Auto) 0.0 CBC Comment AUTO DIFF Differential Comment AUTO DIFF CONFIRMED Blood Urea Nitrogen 9 Creatinine 0.85 Random Glucose 189 Total Protein 6.7 Albumin 3.2 Calcium Level 8.1 Alkaline Phosphatase 137 Aspartate Amino Transf (AST/SGOT) 33 Alanine Aminotransferase (ALT/SGPT) 21 Total Bilirubin 1.7 Sodium Level 140 Potassium Level 4.0 Chloride Level 104 Carbon Dioxide Level 27.5 Anion Gap 9 Estimat Glomerular Filtration Rate 94 Imaging Last Impressions Abdomen/Pelvis CT 07/26/17 0518 Signed Impressions: Service Date/Time: Wednesday, July 26, 2017 07:34 - CONCLUSION: 1. Heterogeneous liver characteristic for hepatocellular disease such as cirrhosis. 2. Splenomegaly. 3. Varices are seen in the upper abdomen near the GE junction. 4. Small to moderate hiatal hernia at the GE junction 5. Trace of fluid by the liver. Edema throughout the mesentery. No significant ascites. 6. Multiple gallstones in the gallbladder. No biliary tract obstruction. Josue Hopkins MD Chest X-Ray 07/26/17 0516 Signed Impressions: Service Date/Time: Wednesday, July 26, 2017 05:54 - CONCLUSION: Normal examination. Mynor Lebron Jr., MD Physical Exam HEENT: Normocephalic; atraumatic CHEST: Even/unlabored CARDIAC: RRR ABDOMEN: Soft, nontender, nondistended, bowel sounds active INSTITUTIONAL ASSET MANAGER: Alert and oriented times three. (Amawi,Antoinetteawkwame LEATHER WORKER) Assessment and Plan Assessment: (1) GI bleed ICD Codes: K92.2 - Gastrointestinal hemorrhage, unspecified Status: Acute (2) Alcohol abuse ICD Codes: F10.10 - Alcohol abuse, uncomplicated Status: Acute Plan Assessment: - Nausea, vomiting with hematemesis History of EGD with banding in Apr 2017 EGD (07/26) --> Portal gastropathy. MW tear EG junction some bleeding 1 clip applied- no further bleeding. Esophagitis, distal esophagus. Esophageal varices grade 2- midesophagus- no signs of recent bleeding, most likely bleeding due to MW tear at this point. Hiatal hernia. - ETOH abuse with known cirrhosis- not currently followed outpatient by a GI doctor, recently moved to this area. Reports drinking beer and liquor daily. Last paracentesis done 2 years ago Current LFTs: AST-29 ALT-16 Alk phos-116 T bili-1.4 Thrombocytopenia (platelets-54) Hypoalbuminemia (albumin-2.9) No coagulopathy CT abdomen and pelvis W IV contrast (07/26) --> Heterogeneous liver characteristic for hepatocellular disease such as cirrhosis. Splenomegaly. Varices are seen in the upper abdomen near the GE junction. Small to moderate hiatal hernia at the GE junction. Trace of fluid by the liver. Edema throughout the mesentery. No significant ascites. Multiple gallstones in the gallbladder. No biliary tract obstruction. (07/27) H/H remains stable over night, no emesis since EGD. Complaining of some continued nausea and sore throat that began after the procedure. (07/28) HH stable and normalized, no bleeding reported today He is with nausea Plan Inderal Lasix Lactulose Protonix Heart healthy diet Monitor labs Cont. antiemetics Okay to DC from GI stand point f/u with GI upon discharge Further recommendations based on clinical course Patient has been seen and examined by myself and Dr. May and this note is written on her behalf (Briseyda Martinez) Physician Comments SEEN, EXAMINED AGREE WITH ABOVE (Ina May MD) Briseyda Martinez July 28, 2017 17:04 Ina May MD July 28, 2017 20:06
[2017-07-28] MEDS: cefTRIAXone INJ 2,000 MG in SODIUM CHLORIDE 0.9% INJ 100 ML IV SCH (18:45)
[2017-07-28 19:48] VITALS: BP 133/81; PULSE 75; RESP 16; TEMP 99.3; O2SAT 95
[2017-07-28] MEDS: AMITRIPTYLINE HCL 10 MG TAB PO SCH (23:29)
[2017-07-29 00:11] VITALS: BP 138/84; PULSE 73; RESP 16; TEMP 98.7; O2SAT 94
[2017-07-29 04:20] VITALS: BP 133/79; PULSE 66; RESP 16; TEMP 98.4; O2SAT 94
[2017-07-29] MEDS: PROPRANOLOL HCL 20 MG TAB PO SCH (05:27)
[2017-07-29 07:23] VITALS: BP 156/78; PULSE 59; RESP 18; TEMP 98.5; O2SAT 97
[2017-07-29] MEDS: LACTULOSE SYRUP 20 GM/30 ML CUP PO SCH (08:44)
[2017-07-29] MEDS: THIAMINE HCL 100 MG TAB PO SCH (08:44)
[2017-07-29] MEDS: SODIUM CHLORIDE 0.9% FLUSH 10 ML FLUSH IV FLUSH SCH (08:44)
[2017-07-29] MEDS: SODIUM CHLOR 0.9% 1000 ML INJ 1,000 ML IV SCH (08:44)
[2017-07-29] MEDS: PANTOPRAZOLE SODIUM 40 MG VIAL IV PUSH SCH (08:44)
[2017-07-29] MEDS: FOLIC ACID 1 MG TAB PO SCH (08:45)
[2017-07-29] MEDS: DOCUSATE SODIUM 50 MG/SENNA 8.6 MG TAB PO SCH (08:45)
[2017-07-29] MEDS: MULTIVITAMINS/MINERALS THERAPEUTIC TAB PO SCH (08:45)
[2017-07-29] MEDS: GABAPENTIN 400 MG CAP PO SCH (08:45)
[2017-07-29] MEDS: FUROSEMIDE 40 MG TAB PO SCH (08:45)
--- NOTE | 2017-07-29 09:14 | HHI.DS ---
cc: Ina May MD Discharge Summary Admission Date July 26, 2017 at 9:30 am Discharge Date: July 29, 2017 Admitting Diagnosis GI bleed/esophageal varices (1) GI bleed ICD Code: K92.2 - Gastrointestinal hemorrhage, unspecified Status: Acute (2) Yanci-Hutton tear ICD Code: K22.6 - Gastro-esophageal laceration-hemorrhage syndrome (3) Esophagitis ICD Code: K20.9 - Esophagitis, unspecified (4) Esophageal varices ICD Code: I85.00 - Esophageal varices without bleeding (5) Cirrhosis of liver ICD Code: K74.60 - Unspecified cirrhosis of liver (6) Portal hypertensive gastropathy ICD Code: K76.6 - Portal hypertension; K31.89 - Other diseases of stomach and duodenum (7) Alcohol abuse ICD Code: F10.10 - Alcohol abuse, uncomplicated Status: Acute (8) Depression ICD Code: F32.9 - Major depressive disorder, single episode, unspecified Procedures 07/26/17EGD by Dr. May showed portal gastropathy, Yanci-Hutton tear at EG junction with some bleeding noted, 1 clip applied, distal esophagitis, esophageal varices grade 2 Brief History - From Admission Mr. Koroma is a 52-year-old white male who was brought to the ED by [facility] for nausea, vomiting, and hematemesis. He drinks alcohol daily and admits to consuming >12 beers and finishing a 750mL bottle of liquor in the past 24 hours. GI symptoms began yesterday and he reports recurrent vomiting with a minimal amount of blood in each episode. He is vomiting 2-3x every hour. Says it is watery and the color is "light" but tinged with blood. He has not eaten much in the past few days, and recalls having a can of spam last night. Nausea is not associated with food. He has constant "crampy" periumbilical pain that does not radiate. Rates pain 5/10 and it is worsened with vomiting. Reports abdominal bloating. He has a history of cirrhosis and ascites which required hospitalization and multiple treatments with paracentesis last year. He has a history of esophageal varices, which were treated with banding at a hospital in [place] 04/2017. He reports an episode of dyspnea early this morning associated with vomiting. It self-resolved and has not occurred since. Denies chest pain, tightness, back or shoulder pain, constipation, diarrhea, recent change in BMs, fever, chills, headache, vision changes. He has not traveled recently and has no sick contacts. He receives SSI and is not currently employed. He moved to the area from [place] a few months ago and does not have a PCP. He has not taken any prescribed medications in the past few days. He is unsure of the exact medications, but reports he is prescribed BP meds, DM meds, gabapentin, and antidepressants. Patient is a current smoker. CBC/BMP: 07/28/17 1303 07/28/17 1303 Significant Findings Laboratory Tests Test 07/26/17 11:03 07/26/17 17:24 07/26/17 21:07 07/27/17 07:28 Phosphorus Level 1.9 MG/DL (2.5-4.9) Ammonia 53 MCMOL/L (11-32) Hemoglobin 12.5 GM/DL (13.0-17.0) 12.4 GM/DL (13.0-17.0) Hematocrit 37.8 % (39.0-51.0) 37.5 % (39.0-51.0) White Blood Count 3.1 TH/MM3 (4.0-11.0) Mean Corpuscular Hemoglobin 26.7 PG (27.0-34.0) Red Cell Distribution Width 18.6 % (11.6-17.2) Platelet Count 54 TH/MM3 (150-450) Monocytes (%) (Auto) 19.7 % (0.0-8.0) Lymphocytes # (Auto) 0.6 TH/MM3 (1.0-4.8) Platelet Estimate LOW (NORMAL) Creatinine 0.58 MG/DL (0.60-1.30) Total Protein 6.1 GM/DL (6.4-8.2) Albumin 2.9 GM/DL (3.4-5.0) Calcium Level 7.7 MG/DL (8.5-10.1) Total Bilirubin 1.4 MG/DL (0.2-1.0) Test 07/28/17 13:03 Red Cell Distribution Width 18.5 % (11.6-17.2) Platelet Count 63 TH/MM3 (150-450) Neutrophils (%) (Auto) 84.8 % (16.0-70.0) Lymphocytes (%) (Auto) 5.7 % (9.0-44.0) Lymphocytes # (Auto) 0.3 TH/MM3 (1.0-4.8) Random Glucose 189 MG/DL (74-106) Albumin 3.2 GM/DL (3.4-5.0) Calcium Level 8.1 MG/DL (8.5-10.1) Alkaline Phosphatase 137 U/L (45-117) Total Bilirubin 1.7 MG/DL (0.2-1.0) Imaging Last Impressions Abdomen/Pelvis CT 07/26/1718 Signed Impressions: Service Date/Time: Wednesday, July 26, 2017 07:34 - CONCLUSION: 1. Heterogeneous liver characteristic for hepatocellular disease such as cirrhosis. 2. Splenomegaly. 3. Varices are seen in the upper abdomen near the GE junction. 4. Small to moderate hiatal hernia at the GE junction 5. Trace of fluid by the liver. Edema throughout the mesentery. No significant ascites. 6. Multiple gallstones in the gallbladder. No biliary tract obstruction. Josue Hopkins MD Chest X-Ray 07/26/17 0516 Signed Impressions: Service Date/Time: Wednesday, July 26, 2017 05:54 - CONCLUSION: Normal examination. Mynor Lebron Jr., MD PE at Discharge GENERAL: Well-nourished, well-developed middle-aged male patient in [facility]. SKIN: Warm and dry. No rash. Right elbow with abrasion. HEENT: Normocephalic. Atraumatic. Pupils equal and round. Mucous membranes pink and moist. CARDIOVASCULAR: Regular rate and rhythm. No murmur appreciated. RESPIRATORY: No accessory muscle use. Clear to auscultation. Breath sounds equal bilaterally. GASTROINTESTINAL: Abdomen soft, non-tender, nondistended. Normoactive bowel sounds x4. MUSCULOSKELETAL: No obvious deformities. Extremities without clubbing, cyanosis , or edema. NEUROLOGICAL: Awake and alert. No obvious cranial nerve deficits. Motor grossly within normal limits. Moving all extremities spontaneously. Normal speech. PSYCHIATRIC: Appropriate mood and affect; insight and judgment normal. Pt update on day of discharge The patient reports feeling better today. She reports intermittent bouts of nausea however no vomiting, and much improved compared to previous days. Denies any abdominal pain. Having normal nonbloody BMs. Denies fevers or chills. Tolerating oral intake. He feels ready for discharge. He is requesting refills of all of his prescriptions. Hospital Course 52-year-old male with history of type 2 diabetes, hypertension, alcohol abuse, cirrhosis, portal hypertension, esophageal varices, anxiety/depression, presents with nausea/vomiting/hematemesis. GI bleeding: With hematemesis. Ongoing alcohol abuse. Known history of esophageal varices on prior EGD in April 2017. Abdomen/pelvis CT reviewed, shows heterogenous liver characteristic for hepatocellular disease such as cirrhosis; splenomegaly; varices and upper abdomen near the GE junction; hiatal hernia, multiple gallstones. Given IV Protonix bid, IV Rocephin, Inderal 20mg q8h. S/p IV Octreotide, now discontinued. Supportive treatment with IV fluid hydration, antiemetics as needed, pain control as needed. Monitor H&H, currently hgb stable 12.7 --> 13.0 --> 12.5 --> 12.4 --> 13.5. GI consulted. S/ p EGD 07/26 showed portal gastropathy, Yanci-Hutton tear at EG junction with some bleeding noted, 1 clip applied, distal esophagitis, esophageal varices grade 2. Diet per GI, advanced to soft diet. Patient tolerating oral intake with no further vomiting at discharge. Cleared for discharge by GI. Alcoholic cirrhosis with hyperammonemia: Chronic, with varices as above. Ammonia level 53. Patient is AAO 4. Continued lactulose 30 mL's twice daily, Lasix 40 mg daily, and propranolol. Alcohol abuse with Alcohol Withdrawal: Patient admits to drinking 12+ beers daily along with 750 mL's of liquor. Continue thiamine/folate/multivitamin, CIWA protocol, Seizure precautions. Chronic pain/neuropathy: Chronic. Continue patient's gabapentin and tramadol as needed. Pt Condition on Discharge: Stable Discharge Disposition: Discharge Home Discharge Time: <= 30 minutes Discharge Instructions DIET: Follow Instructions for: Heart Healthy Diet, Soft Diet Follow up Referrals: Gastroenterology - 1 Week with Ina May MD PCP Follow-up - 1 Week with [facility] Adult - 2-3 Days with Yvon Oscar New Medications: Lactulose Liq (Lactulose Liq) 10 Gm/15 Ml Soln 30 ML PO BID for cirrhosis for 30 Days, #1800 ML 0 Refills Pantoprazole (Protonix) 40 Mg Tab 40 MG PO BID for Ulcer Prevention, #60 TAB 0 Refills Ondansetron Odt (Ondansetron Odt) 4 Mg Tab 4 MG PO Q6H PRN for nausea, #24 TAB Thiamine HCl (Gnp Vitamin B-1) 100 Mg Tab 100 MG PO DAILY for Alcohol Detox, #30 TAB Continued Medications: Amitriptyline (Amitriptyline) 10 Mg Tab 20 MG PO HS for Depression Control, #30 TAB (This prescription has been renewed) Furosemide (Furosemide) 40 Mg Tab 40 MG PO DAILY for fluid, #30 TAB 0 Refills (This prescription has been renewed) Gabapentin (Gabapentin) 400 Mg Cap 400 CAP PO TID for neuropathy, #30 CAP 0 Refills (This prescription has been renewed) Propranolol (Propranolol) 20 Mg Tab 20 MG PO Q8HR for varices, #90 TAB 1 Refill (This prescription has been renewed) Discontinued Medications: Famotidine (Famotidine) 40 Mg Tab 40 MG PO HS for GERD, #30 TAB 1 Refill Tramadol (Tramadol) 50 Mg Tab 50 MG PO Q8H PRN for PAIN, TAB 0 Refills Linnette Rucker PA-C July 29, 2017 09:14
[2017-07-29] MEDS ORDERED: AMIT10TA6 PO (09:43)
[2017-07-29] MEDS ORDERED: GABA400C5 PO (09:43)
[2017-07-29] MEDS ORDERED: FURO40TA PO (09:43)
[2017-07-29] MEDS ORDERED: FAMO40TA PO (09:43)
[2017-07-29] MEDS ORDERED: PROP20TA3 PO (09:43)
[2017-07-29] MEDS ORDERED: ONDA4TAB7 PO (09:43)
[2017-07-29] MEDS ORDERED: LACT10SO PO (09:49)
--- NOTE | 2017-07-29 09:51 | HHI.DCPOC ---
Discharge Care Plan Diagnosis: (1) GI bleed (2) Yanci-Hutton tear (3) Cirrhosis of liver (4) Portal hypertensive gastropathy (5) Esophageal varices (6) Esophagitis (7) Alcohol abuse (8) Depression Goals to Promote Your Health * To prevent worsening of your condition and complications * To maintain your health at the optimal level Directions to Meet Your Goals Take your medications as prescribed Follow your dietary instruction Follow activity as directed Keep your appointments as scheduled Take your immunizations and boosters as scheduled If your symptoms worsen call your PCP, if no PCP go to Urgent Care Center or Emergency Room Smoking is Dangerous to Your Health. Avoid second hand smoke Call the 24-hour hour crisis hotline for domestic abuse at Linnette Rucker PA-C July 29, 2017 9:51 am
== END 2017-07-29 11:33 | disposition home or self-care (01) ==
LOC: NEPC 05:14 → INTOOBSV 09:30 → NEDA 09:30 → NEPGCP 10:53
PROVIDERS: ADMIT Internal Medicine; ATTEND Internal Medicine
DX: K22.6 Gastro-esophageal laceration-hemorrhage syndrome (principal); R63.4 Abnormal weight loss; K20.9 Esophagitis, unspecified; I85.00 Esophageal varices without bleeding; K76.6 Portal hypertension; F10.10 Alcohol abuse, uncomplicated; F32.9 Major depressive disorder, single episode, unspecified; K70.31 Alcoholic cirrhosis of liver with ascites; R16.1 Splenomegaly, not elsewhere classified; K44.9 Diaphragmatic hernia without obstruction or gangrene; K80.20 Calculus of gallbladder without cholecystitis without obstruction; R60.0 Localized edema; K57.30 Diverticulosis of large intestine without perforation or abscess without bleeding; K64.8 Other hemorrhoids; K64.4 Residual hemorrhoidal skin tags; K31.89 Other diseases of stomach and duodenum; D69.6 Thrombocytopenia, unspecified; E88.09 Other disorders of plasma-protein metabolism, not elsewhere classified; F10.239 Alcohol dependence with withdrawal, unspecified; I10 Essential (primary) hypertension; G89.29 Other chronic pain; E11.42 Type 2 diabetes mellitus with diabetic polyneuropathy; E66.9 Obesity, unspecified; F17.200 Nicotine dependence, unspecified, uncomplicated
CPT/HCPCS: 00813; 43239; 43255; 45380; 45385; 71045; 74177; 80053; 82140; 82948; 83690; 83735; 84100; 85014; 85018; 85025; 85610; 85730; 88305; 88312; 93005; 96360; 96361; 96365; 96366; 96367; 96372; 96375; 96376; 97161; 99285; C9113; G0378; G8987; G8988; J0330; J0696; J1200; J2060; J2550; J2765; J7030; Q9967; 96374

== ENCOUNTER 2017-11-13 12:39 | Inpatient (IN) ==
[2017-11-13] MEDS ORDERED: Sod Chloride 0.9% Inj 1,000 ML IV.SIG ONE (13:01)
--- NOTE | 2017-11-13 13:59 | ED ---
HPI General Chief complaint: GI Bleed Stated complaint: Poss internal bleeding Time Seen by Provider: 11/13/17 12:58 History of Present Illness HPI narrative: 52-year-old male with a history of alcohol abuse, portal gastropathy, esophageal varices, cirrhosis, DM, HTN, depression presents to the ED for evaluation of GI bleed. The patient states that he has vomited blood multiple times since yesterday. States that he vomited twice yesterday and twice today. States that it is dark red blood. States he has also had dark black stool for the past 2 days. States that this has happened to him in the past. He continues to drink large amounts of alcohol daily. States that he last had an alcoholic beverage this morning. States that he feels weak and fatigued. Denies any chest pain, shortness of breath, abdominal pain, diarrhea , constipation, fever, chills. States he has had multiple falls over the past several days due to alcohol intoxication. Complaining of lower back pain and right toe pain. No other complaints or concerns. Related Data Allergies Allergy/AdvReac Type Severity Reaction Status Date / Time morphine Allergy Severe Shortness Verified 11/13/17 13:22 of Breath buspirone Allergy Intermediate Numbness Verified 11/13/17 13:22 Review of Systems ROS: all other systems reviewed are negative PMFSH Medical History Medical History Depression (Acute) Diabetes (Acute) ETOH abuse (Acute) Esophageal varices (Acute) GI bleed (Acute) HTN (hypertension) (Acute) Social History Social History Second Hand Smoke Exposure: Yes Smoking Status: Current every day smoker Tobacco Type: Cigarettes How Often Do You Have a Drink Containing Alcohol: 4 or more times a week Recent Travel in [facility] within the Last 8 Weeks: No Recent Out of Country Travel within the Last 8 Weeks: No Substance Abuse Detail Marijuana: Substance Use Status: Active Route Used Substance Abuse: Inhalation Reason for Use: Get High Immunization History Tetanus Immunization: Unsure Hx Influenza Vaccine This Season: No Exam Narrative Exam Narrative: GENERAL: Well-nourished and well-developed male patient in no acute distress who is nontoxic appearing. SKIN: Warm and dry. HEAD: Normocephalic and atraumatic. No bony point tenderness or crepitus noted throughout the sinuses. EYES: No injection, drainage, or hyphema noted. PERRLA. EOMI. ENT: No nasal drainage noted. Oropharynx is clear and the TMs are normal with good landmarks. NECK: Supple and the trachea is midline. CARDIOVASCULAR: Regular rate and rhythm. RESPIRATORY: Breath sounds are equal bilaterally with no accessory muscle use, wheezing, rhonchi, or crackles. GASTROINTESTINAL: Abdomen is soft, non-tender, and nondistended. MUSCULOSKELETAL: No obvious deformities, swelling, cyanosis, or ecchymosis is present throughout the upper and lower extremities. Patient has full range of motion without any signs of neurovascular compromise. Distal pulses are 2+ throughout. BACK: No obvious deformities. Patient does have tenderness to palpation of lumbar region. NEUROLOGICAL: Awake, alert, and oriented. Normal speech and gait. Cranial nerves are grossly intact. Procedures Hemaprompt Stool Procedural Steps Taken: specimen placed in appropriate test area, developer placed on specimen and control areas and controls appropriately positive and negative Hemaprompt Stool Result: positive Course Initial Documented Vital Signs Temperature 98.5 F 11/13/17 12:45 Pulse Rate 119 H 11/13/17 12:45 Respiratory Rate 18 11/13/17 12:45 Blood Pressure 105/65 11/13/17 12:45 Pulse Oximetry 98 11/13/17 12:45 Last Documented Vital Signs Temperature 98.5 F 11/13/17 12:45 Pulse Rate 114 H 11/13/17 16:57 Respiratory Rate 23 11/13/17 16:57 Blood Pressure 118/71 11/13/17 16:57 Pulse Oximetry 97 11/13/17 16:57 Medical Decision Making [facility] Narrative Medical decision making narrative: 52-year-old male presents to the emergency department for evaluation of GI bleed. Patient is afebrile. He is tachycardic however blood pressure is stable. IV access is obtained, labs of been drawn and sent. Patient is placed on cardiac telemetry and pulse oximetry monitoring. Patient is administered IV fluids. Patient reports he is a Jehov[employer] 's Witness and refuses to receive blood products. CBC shows hemoglobin is 11.6, hematocrit 35.1. Coags are unremarkable. CMP is unremarkable. Ammonia is 80. X-ray of the right foot is negative. X-ray of the lumbar spine shows T12 compression fracture Head CT negative I spoke with Dr. Lindsay WALTERS who states he will consult on the patient, recommends admit to med/surg floor. Patient has remained stable here in the emergency department with no further episodes of vomiting. He will be admitted to [facility]. The GI [facility]PER came and evaluated the patient and states he will get EGD and colonoscopy tomorrow morning. I spoke with Jade CARTAGENA for [facility] who agrees to accept the patient to their service. Medical Screen Exam Complete: Yes Emergency Medical Condition: Yes Differential Diagnosis Differential Diagnosis: GI bleed versus anemia versus dehydration versus alcohol abuse Lab Data Result diagrams: 11/13/17 13:00 11/13/17 13:00 Lab Results 11/13/17 11/13/17 11/13/17 Range/Units 13:00 13:00 13:00 WBC 5.3 (4.0-11.0) th/mm3 RBC 4.25 L (4.50-5.90) mil/mm3 Hgb 11.6 L (13.0-17.0) gm/dL Hct 35.1 L (39.0-51.0) % MCV 82.7 (80.0-100.0) fL MCH 27.4 (27.0-34.0) pg MCHC 33.1 (32.0-36.0) % RDW 18.6 H (11.6-17.2) % Plt Count 73 L (150-450) th/mm3 MPV 8.9 (7.0-11.0) fL Prelim Diff (Auto) Slide review pending Neut % (Auto) 69.1 (16.0-70.0) % Lymph % (Auto) 13.1 (9.0-44.0) % [place] % (Auto) 14.8 H (0.0-8.0) % Eos % (Auto) 2.5 (0.0-4.0) % Baso % (Auto) 0.5 (0.0-2.0) % Neut # (Auto) 3.6 (1.8-7.7) th/mm3 Lymph # (Auto) 0.7 L (1.0-4.8) th/mm3 [place] # (Auto) 0.8 (0.0-0.9) th/mm3 Eos # (Auto) 0.1 (0.0-0.4) th/mm3 Baso # (Auto) 0.0 (0.0-0.2) th/mm3 WBC Differential . Diff Scan Auto diff confirmed Differential Comment . Platelet Estimate Low L (Normal) Platelet Morphology Normal (Normal) PT 11.5 (9.8-11.6) sec INR 1.1 Ratio APTT 27.8 (24.3-30.1) sec Sodium 136 (136-145) meq/L Potassium 4.0 (3.5-5.1) meq/L Chloride 100 (98-107) meq/L Carbon Dioxide 22.6 (21.0-32.0) meq/L Anion Gap 13 (5-15) meq/L BUN 14 (7-18) mg/dL Creatinine 1.22 (0.60-1.30) mg/dL Estimated GFR 62 L (>89) mL/min Random Glucose 131 H (74-106) mg/dL Calcium 7.6 L (8.5-10.1) mg/dL Total Bilirubin 0.7 (0.2-1.0) mg/dL AST 28 (15-37) U/L ALT 21 (12-78) U/L Alkaline Phosphatase 126 H (45-117) U/L Ammonia (11-32) mcmol/L Total Protein 6.4 (6.4-8.2) g/dL Albumin 3.2 L (3.4-5.0) g/dL Lipase 96 (73-393) U/L Serum Alcohol 45 H (0-5) mg/dL Blood Type Blood Type Recheck Antibody Screen 11/13/17 11/13/17 Range/Units 13:31 13:31 WBC (4.0-11.0) th/mm3 RBC (4.50-5.90) mil/mm3 Hgb (13.0-17.0) gm/dL Hct (39.0-51.0) % MCV (80.0-100.0) fL MCH (27.0-34.0) pg MCHC (32.0-36.0) % RDW (11.6-17.2) % Plt Count (150-450) th/mm3 MPV (7.0-11.0) fL Prelim Diff (Auto) Neut % (Auto) (16.0-70.0) % Lymph % (Auto) (9.0-44.0) % [place] % (Auto) (0.0-8.0) % Eos % (Auto) (0.0-4.0) % Baso % (Auto) (0.0-2.0) % Neut # (Auto) (1.8-7.7) th/mm3 Lymph # (Auto) (1.0-4.8) th/mm3 [place] # (Auto) (0.0-0.9) th/mm3 Eos # (Auto) (0.0-0.4) th/mm3 Baso # (Auto) (0.0-0.2) th/mm3 WBC Differential Diff Scan Differential Comment Platelet Estimate (Normal) Platelet Morphology (Normal) PT (9.8-11.6) sec INR Ratio APTT (24.3-30.1) sec Sodium (136-145) meq/L Potassium (3.5-5.1) meq/L Chloride (98-107) meq/L Carbon Dioxide (21.0-32.0) meq/L Anion Gap (5-15) meq/L BUN (7-18) mg/dL Creatinine (0.60-1.30) mg/dL Estimated GFR (>89) mL/min Random Glucose (74-106) mg/dL Calcium (8.5-10.1) mg/dL Total Bilirubin (0.2-1.0) mg/dL AST (15-37) U/L ALT (12-78) U/L Alkaline Phosphatase (45-117) U/L Ammonia 80 H (11-32) mcmol/L Total Protein (6.4-8.2) g/dL Albumin (3.4-5.0) g/dL Lipase (73-393) U/L Serum Alcohol (0-5) mg/dL Blood Type A Positive Blood Type Recheck Required Antibody Screen Negative Imaging Data Radiologist's impression: Foot X-Ray 11/13/17 14:09 CONCLUSION: No evidence of recent bony injury. Head CT 11/13/17 14:09 CONCLUSION: 1. No acute intracranial abnormality. . Lumbar Spine CT 11/13/17 14:09 CONCLUSION: 1. Acute compression fracture of T12 with less than 20% loss of height and 4 mm of retropulsion. Discharge Plan Discharge Disposition Patient Disposition: 30 Still Patient Discharge Condition Condition: Stable Discharge Details Diagnosis: Upper gastrointestinal hemorrhage, Compression fracture of T12 vertebra, Alcohol abuse, Serum ammonia increased Physicians Team ED Provider: Chano Majano ED Midlevel Provider: Anny Dickinson Primary Care Provider: UNKNOWN, Other Providers: Richy Montoya Status ED Status: With Doctor
[2017-11-13 14:00] LABS: Baso % (Auto) 0.5 % (0.0-2.0); Eos # (Auto) 0.1 th/mm3 (0.0-0.4); Eos % (Auto) 2.5 % (0.0-4.0); Hematocrit 35.1 % (39.0-51.0); Hemoglobin 11.6 gm/dL (13.0-17.0); Lymph # (Auto) 0.7 th/mm3 (1.0-4.8); Lymph % (Auto) 13.1 % (9.0-44.0); Mean Corpuscular HGB Conc 33.1 % (32.0-36.0); Mean Corpuscular Hemoglobin 27.4 pg (27.0-34.0); Mean Corpuscular Volume 82.7 fL (80.0-100.0); Mean Platelet Volume 8.9 fL (7.0-11.0); Mono # (Auto) 0.8 th/mm3 (0.0-0.9); Mono % (Auto) 14.8 % (0.0-8.0); Neut # (Auto) 3.6 th/mm3 (1.8-7.7); Neut % (Auto) 69.1 % (16.0-70.0); Platelet Count 73 th/mm3 (150-450); Red Blood Count 4.25 mil/mm3 (4.50-5.90); Red Cell Distribution Width 18.6 % (11.6-17.2); White Blood Count 5.3 th/mm3 (4.0-11.0)
[2017-11-13] MEDS ORDERED: Pantoprazole Inj 80 MG in Sodium Chlor 0.9% Inj 100 ML IV.CONT SCH (14:00)
[2017-11-13 14:12] LABS: Activated Partial Thrombo Time 27.8 sec (24.3-30.1); INR 1.1 Ratio; Prothrombin Time 11.5 sec (9.8-11.6)
[2017-11-13 14:29] LABS: Alanine Aminotransferase 21 U/L (12-78); Albumin 3.2 g/dL (3.4-5.0); Alkaline Phosphatase 126 U/L (45-117); Anion Gap 13 meq/L (5-15); Aspartate Aminotransferase 28 U/L (15-37); Blood Urea Nitrogen 14 mg/dL (7-18); Calcium 7.6 mg/dL (8.5-10.1); Carbon Dioxide 22.6 meq/L (21.0-32.0); Chloride 100 meq/L (98-107); Glomerular Filtration Rate 62 mL/min (>89); Glucose,Random 131 mg/dL (74-106); Lipase 96 U/L (73-393); Sodium 136 meq/L (136-145); Total Protein 6.4 g/dL (6.4-8.2)
[2017-11-13 14:34] LABS: Alcohol 45 mg/dL (0-5)
[2017-11-13 14:41] LABS: Platelet Morphology Normal (Normal)
--- NOTE | 2017-11-13 14:50 | XR ---
EXAM DATE: 11/13/2017 2:39 PM EDT AGE/SEX: 52 years / Male INDICATIONS: Tripped and hit toe yesterday. CLINICAL DATA: This is the patient's initial encounter. Patient reports that signs and symptoms have been present for 1 day and indicates a pain score of 9/10. MEDICAL/SURGICAL HISTORY: Hypertension. Diabetes. None. COMPARISON: No prior exams available for comparison. FINDINGS: Bony structures are intact and in normal alignment. Osseous density is normal. Soft tissues are unre markable. No radiopaque foreign bodies seen. CONCLUSION: No evidence of recent bony injury. Electronically signed by: Brady Mullins MD 11/13/2017 2:48 PM EDT
--- NOTE | 2017-11-13 15:30 | CT ---
EXAM DATE: 11/13/2017 3:26 PM EDT AGE/SEX: 52 years / Male INDICATIONS: Trauma, fall. CLINICAL DATA: This is the patient's initial encounter. Patient reports that signs and symptoms have been present for 1 day and indicates a pain score of 3/10. MEDICAL/SURGICAL HISTORY: Hypertension. Diabetes. None. RADIATION DOSE: 52.04 CTDI (mGy) COMPARISON: [facility] – [place], [place] BRAIN W/O CONTRAST, 03/24/2017. . TECHNIQUE: CT of the head without contrast. Using automated exposure control and adjustment of the mA and/or kV according to patient size, radiation dose was kept as low as reasonably achievable to ob tain optimal diagnostic quality images. DICOM format image data is available electronically for revi ew and comparison. FINDINGS: Cerebrum: The ventricles are normal for age. No evidence of midline shift, mass lesion, hemorrhage or acute infarction. No extraaxial fluid collections are seen. Posterior Fossa: The cerebellum and brainstem are intact. The 4th ventricle is midline. The cerebe llopontine angle is unremarkable. Extracranial: The visualized portion of the orbits is intact. Skull: The calvaria is intact. No evidence of skull fracture. CONCLUSION: 1. No acute intracranial abnormality. . Electronically signed by: Mynor Lebron MD 11/13/2017 3:29 PM EDT
--- NOTE | 2017-11-13 15:43 | CT ---
EXAM DATE: 11/13/2017 3:33 PM EDT AGE/SEX: 52 years / Male INDICATIONS: Trauma, fall, lower back pain. CLINICAL DATA: This is the patient's initial encounter. Patient reports that signs and symptoms have been present for 1 day and indicates a pain score of 3/10. MEDICAL/SURGICAL HISTORY: Hypertension. Diabetes. None. RADIATION DOSE: 45.04 CTDI (mGy) COMPARISON: No prior exams available for comparison. TECHNIQUE: Contiguous axial images were acquired with a multirow detector CT scanner without contras t. Multiplanar reconstructions in the sagittal and coronal plane were also performed. Using automate d exposure control and adjustment of the mA and/or kV according to patient size, radiation dose was k ept as low as reasonably achievable to obtain optimal diagnostic quality images. DICOM format image data is available electronically for review and comparison. FINDINGS: Vertebrae: There is an acute superior endplate compression fracture involving T12. Less than 20% los s of height. 4 mm of retropulsion of the posterior cortical margin within its more cephalad aspect. R emaining vertebral body heights are maintained.. Alignment: Normal. No subluxation. T12-L1: The thecal sac has a normal diameter. No evidence of disc bulge or protrusion. The neural foramina are patent bilaterally. L1-L2: The thecal sac has a normal diameter. No evidence of disc bulge or protrusion. The neural f oramina are patent bilaterally. L2-L3: The thecal sac has a normal diameter. No evidence of disc bulge or protrusion. The neural f oramina are patent bilaterally. L3-L4: There is a very mild broad-based disc bulge. Central canal and neural foramina are patent. Mi ld bony hypertrophy of the facets. L4-L5: There is a very mild broad-based disc bulge. Mild ligamentum flavum hypertrophy of the facets . Central canal and neural foramina are patent. L5-S1: There is a mild central bulge. Facet joints are unremarkable. Central canal and neural forami na are patent bilaterally.. CONCLUSION: 1. Acute compression fracture of T12 with less than 20% loss of height and 4 mm of retropulsion. Electronically signed by: Mynor Lebron MD 11/13/2017 3:41 PM EDT
[2017-11-13] MEDS ORDERED: PEG 3350/E-Lyte Soln 4000 ML Bottle PO ONE (16:13)
--- NOTE | 2017-11-13 17:08 | P.CONGI ---
History of Present Illness Consult date: 11/13/17 Consult reason: GI bleed Chief complaint: Poss internal bleeding History of Present Illness: This is a well-nourished 52-year-old male who came in the hospital on 11/13/2017 with symptoms of nausea vomiting, hematemesis dark red bleeding for the past 24 hours. Patient also notes a 2 day onset of melena stools weakness and fatigue. Aggravating factors are EtOH abuse 4 times or more a week, no known alleviating factors at this time. Patient denies any obvious acute pain except for some mild epigastric discomfort to light palpation. Patient does have a history of esophageal varices and EtOH abuse states that he had an EGD in the [place] area back in April 2017 as well as EGD/colonoscopy approximately 1 year ago at [place]. Patient does have a history of polyps and also family history of colon cancer dad at the age of 65. Patient also notes history of constipation with some straining with defecation, no other abdominal pain. Gastroenterology has been consulted to assist with GI bleed. Current hemoglobin 11.6, PT/INR 1.1, alkaline phosphatase 126, normal LFTs and bilirubin , ammonia level 80 but patient is showing no signs of encephalopathy. <Thania Trivedi - Last Filed: 11/13/17 16:58> Review of Systems All other systems reviewed negative except as stated in HPI <Thania Trivedi - Last Filed: 11/13/17 16:58> PMFSH - History History 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 - Medical History Medical History: Medical History (Last Updated 11/13/17 @ 13:15 by Cherelle Brown RN) Depression Diabetes ETOH abuse Esophageal varices GI bleed HTN (hypertension) - Tobacco History Second Hand Smoke Exposure: Yes Tobacco Use In Past 30 Days: Yes Smoking Status: Current every day smoker Tobacco Type: Cigarettes - Alcohol History How Often Do You Have a Drink Containing Alcohol: 4 or more times a week - Substance Use Type Marijuana Status: Active Route Used: Inhalation Reason for Use: Get High - Travel History Recent Travel in the [facility] Within the Last 8 Weeks: No Recent Travel Out of the Country Within the Last 8 Weeks: No - Immunization History Tetanus Immunization: Unsure Hx Influenza Vaccine This Season: No <Thania Trivedi - Last Filed: 11/13/17 16:58> - Medical History Medical History: Medical History (Last Updated 11/13/17 @ 13:15 by Cherelle Brown RN) Depression Diabetes ETOH abuse Esophageal varices GI bleed HTN (hypertension) <Richy Montoya - Last Filed: 11/14/17 07:03> Medications and Allergies Active Medications: Active Medications Pantoprazole Sodium 80 mg/ (Sodium Chloride) 100 mls @ 10 mls/hr IV.CONT CONT [facility] Last Admin: 11/13/17 14:12 Dose: 10 mls/hr Sodium Chloride (Ns Flush) 2 ml IV.FLUSH PRN PRN PRN Reason: FLUSH AFTER USING IV ACCESS <Thania Trivedi - Last Filed: 11/13/17 16:58> Active Medications: Active Medications Al Hydroxide/Mg Hydroxide (Milk Of Magnesia Liq) 30 ml PO Q12H PRN PRN Reason: Mild Constipation Pantoprazole Sodium 80 mg/ (Sodium Chloride) 100 mls @ 10 mls/hr IV.CONT CONT [facility] Last Infusion: 11/14/17 05:56 Dose: 10 mls/hr Dextrose/Sodium Chloride (D5w/Normal Saline Inj) 1,000 mls @ 70 mls/hr IV.CONT .[id number] [facility] Last Admin: 11/14/17 06:57 Dose: Not Given Octreotide Acetate 500 mcg/ (Sodium Chloride) 500.5 mls @ 50.05 mls/hr IV.CONT .Q10H [facility] Last Admin: 11/14/17 06:56 Dose: 50 mcg/hr, 50.05 mls/hr Ceftriaxone Sodium 1,000 mg/ (Sodium Chloride) 100 mls @ 200 mls/hr IV.SIG Q24H [facility] Last Admin: 11/13/17 20:15 Dose: 200 mls/hr Lactulose (Lactulose Liq) 30 ml PO DAILY PRN PRN Reason: SEVERE CONSTIPATION Ondansetron HCl (Zofran Inj) 4 mg IV.PUSH Q6H PRN PRN Reason: NAUSEA OR VOMITING Last Admin: 11/13/17 20:15 Dose: 4 mg Sodium Chloride (Ns Flush) 2 ml IV.FLUSH PRN PRN PRN Reason: FLUSH AFTER USING IV ACCESS <Richy Montoya - Last Filed: 11/14/17 07:03> Allergies Allergy/AdvReac Type Severity Reaction Status Date / Time morphine Allergy Severe Shortness Verified 11/13/17 13:22 of Breath buspirone Allergy Intermediate Numbness Verified 11/13/17 13:22 Home Medications Medication Instructions Recorded Confirmed Type amlodipine 5 mg PO DAILY 11/13/17 11/13/17 History aspirin 81 mg PO DAILY 11/13/17 11/13/17 History atenolol 50 mg PO DAILY 11/13/17 11/13/17 History bumetanide 0.5 mg PO DAILY 11/13/17 11/13/17 History divalproex [Depakote] 500 mg PO DAILY 11/13/17 11/13/17 History donepezil 5 mg PO DAILY 11/13/17 11/13/17 History insulin NPH and regular human 1 sliding scale dose SUB-Q UD 11/13/17 11/13/17 History [Novolin 70/30 U-100 Insulin] lanthanum 500 mg PO DAILY 11/13/17 11/13/17 History lisinopril 40 mg PO DAILY 11/13/17 11/13/17 History lorazepam [Ativan] 0.5 mg PO BID 11/13/17 11/13/17 History mesalamine [Lialda] 1.2 g PO BID 11/13/17 11/13/17 History simvastatin 20 mg PO QPM 11/13/17 11/13/17 History tramadol 50 mg PO Q6H PRN 11/13/17 11/13/17 History vit B,M-KY-kwdu-selen-vit D3-E 1 tab PO DAILY 11/13/17 11/13/17 History [RenaPlex-D] Exam Vital signs: Vital Signs 11/13/17 12:45 11/13/17 13:11 11/13/17 13:12 Temperature 98.5 F Pulse Rate 119 H 109 H Respiratory Rate 18 24 Blood Pressure 105/65 104/62 Pulse Oximetry 98 94 L 95 11/13/17 15:04 11/13/17 16:57 Temperature Pulse Rate 105 H 114 H Respiratory Rate 18 23 Blood Pressure 130/74 118/71 Pulse Oximetry 95 97 Intake & Output 11/12/17 11/13/17 11/13/17 18:59 06:59 18:59 Intake Total 1000 / 1000 Output Total 1000 / 1000 Balance 0 / 0 Weight 99.79 kg Intake: IV 1000 / 1000 NS Inj 1,000 ML @ Wide Open IV. 1000 / 1000 SIG BOLUS ONE Rx#:[id number] Output: Urine 1000 / 1000 - Constitutional obese - Routine HEENT Exam Head: Present: normocephalic ENT: Present: mucous membranes moist - Routine Neck Exam Present: supple - Routine Respiratory Exam Present: accessory muscle use (Even, unlabored at rest) - Routine Cardiovascular Exam Present: S1, S2 - Routine Abdominal Exam Present: soft (Round, mild epigastric discomfort to light palpation active bowel sounds) - Routine Neurological Exam Present: alert <Thania Trivedi - Last Filed: 11/13/17 16:58> Vital signs: Vital Signs 11/13/17 12:45 11/13/17 13:11 11/13/17 13:12 Temperature 98.5 F Pulse Rate 119 H 109 H Respiratory Rate 18 24 Blood Pressure 105/65 104/62 Pulse Oximetry 98 94 L 95 11/13/17 15:04 11/13/17 16:57 11/13/17 20:22 Temperature Pulse Rate 105 H 114 H 90 Respiratory Rate 18 23 24 Blood Pressure 130/74 118/71 161/90 H Pulse Oximetry 95 97 96 11/14/17 00:00 11/14/17 04:00 Temperature 98.0 F 98.4 F Pulse Rate 93 H 85 Respiratory Rate 16 17 Blood Pressure 124/71 162/91 H Pulse Oximetry 94 L 94 L Intake & Output 11/13/17 11/14/17 11/14/17 18:59 06:59 18:59 Intake Total 1000 / 1000 500.5 / 500.5 Output Total 1000 / 1000 Balance 0 / 0 500.5 / 500.5 Weight 99.79 kg Intake: IV 1000 / 1000 500.5 / 500.5 SandoSTATIN Inj 500 MCG In NS 500.5 / 500.5 Inj 500 ML @ 50 MCG/HR 50.05 mls/hr IV.CONT .Q10H [facility] Rx#: [id number] Protonix Inj 80 MG In NS Inj 0 / 0 100 ML @ 10 mls/hr IV.CONT CONT [facility] Rx#:[id number] NS Inj 1,000 ML @ Wide Open IV. 1000 / 1000 SIG BOLUS ONE Rx#:[id number] Output: Urine 1000 / 1000 <Richy Montoya - Last Filed: 11/14/17 07:03> Results - Labs CBC & Chem 7: 11/13/17 13:00 11/13/17 13:00 Labs: Laboratory Results - last 24 hr 11/13/17 11/13/17 11/13/17 13:00 13:00 13:00 WBC 5.3 RBC 4.25 L Hgb 11.6 L Hct 35.1 L MCV 82.7 MCH 27.4 MCHC 33.1 RDW 18.6 H Plt Count 73 L MPV 8.9 Prelim Diff (Auto) Slide review pending Neut % (Auto) 69.1 Lymph % (Auto) 13.1 [place] % (Auto) 14.8 H Eos % (Auto) 2.5 Baso % (Auto) 0.5 Neut # (Auto) 3.6 Lymph # (Auto) 0.7 L [place] # (Auto) 0.8 Eos # (Auto) 0.1 Baso # (Auto) 0.0 WBC Differential . Diff Scan Auto diff confirmed Differential Comment . Platelet Estimate Low L Platelet Morphology Normal PT 11.5 INR 1.1 APTT 27.8 Sodium 136 Potassium 4.0 Chloride 100 Carbon Dioxide 22.6 Anion Gap 13 BUN 14 Creatinine 1.22 Estimated GFR 62 L Random Glucose 131 H Calcium 7.6 L Total Bilirubin 0.7 AST 28 ALT 21 Alkaline Phosphatase 126 H Ammonia Total Protein 6.4 Albumin 3.2 L Lipase 96 Serum Alcohol 45 H Blood Type Blood Type Recheck Antibody Screen 11/13/17 11/13/17 13:31 13:31 WBC RBC Hgb Hct MCV MCH MCHC RDW Plt Count MPV Prelim Diff (Auto) Neut % (Auto) Lymph % (Auto) [place] % (Auto) Eos % (Auto) Baso % (Auto) Neut # (Auto) Lymph # (Auto) [place] # (Auto) Eos # (Auto) Baso # (Auto) WBC Differential Diff Scan Differential Comment Platelet Estimate Platelet Morphology PT INR APTT Sodium Potassium Chloride Carbon Dioxide Anion Gap BUN Creatinine Estimated GFR Random Glucose Calcium Total Bilirubin AST ALT Alkaline Phosphatase Ammonia 80 H Total Protein Albumin Lipase Serum Alcohol Blood Type A Positive Blood Type Recheck Required Antibody Screen Negative - Imaging Impressions Foot X-Ray 11/13/17 14:09 CONCLUSION: No evidence of recent bony injury. Head CT 11/13/17 14:09 CONCLUSION: 1. No acute intracranial abnormality. . Lumbar Spine CT 11/13/17 14:09 CONCLUSION: 1. Acute compression fracture of T12 with less than 20% loss of height and 4 mm of retropulsion. <Thania Trivedi M - Last Filed: 11/13/17 16:58> - Labs CBC & Chem 7: 11/13/17 23:20 11/14/17 04:08 Labs: Laboratory Results - last 24 hr 11/13/17 11/13/17 11/13/17 13:00 13:00 13:00 WBC 5.3 RBC 4.25 L Hgb 11.6 L Hct 35.1 L MCV 82.7 MCH 27.4 MCHC 33.1 RDW 18.6 H Plt Count 73 L MPV 8.9 Prelim Diff (Auto) Slide review pending Neut % (Auto) 69.1 Lymph % (Auto) 13.1 [place] % (Auto) 14.8 H Eos % (Auto) 2.5 Baso % (Auto) 0.5 Neut # (Auto) 3.6 Lymph # (Auto) 0.7 L [place] # (Auto) 0.8 Eos # (Auto) 0.1 Baso # (Auto) 0.0 WBC Differential . Diff Scan Auto diff confirmed Differential Comment . Platelet Estimate Low L Platelet Morphology Normal PT 11.5 INR 1.1 APTT 27.8 Sodium 136 Potassium 4.0 Chloride 100 Carbon Dioxide 22.6 Anion Gap 13 BUN 14 Creatinine 1.22 Estimated GFR 62 L Random Glucose 131 H Calcium 7.6 L Total Bilirubin 0.7 AST 28 ALT 21 Alkaline Phosphatase 126 H Ammonia Total Protein 6.4 Albumin 3.2 L Lipase 96 Serum Alcohol 45 H Blood Type Blood Type Recheck Antibody Screen 11/13/17 11/13/17 11/13/17 13:31 13:31 23:20 WBC RBC Hgb 11.5 L Hct 34.4 L MCV MCH MCHC RDW Plt Count MPV Prelim Diff (Auto) Neut % (Auto) Lymph % (Auto) [place] % (Auto) Eos % (Auto) Baso % (Auto) Neut # (Auto) Lymph # (Auto) [place] # (Auto) Eos # (Auto) Baso # (Auto) WBC Differential Diff Scan Differential Comment Platelet Estimate Platelet Morphology PT INR APTT Sodium Potassium Chloride Carbon Dioxide Anion Gap BUN Creatinine Estimated GFR Random Glucose Calcium Total Bilirubin AST ALT Alkaline Phosphatase Ammonia 80 H Total Protein Albumin Lipase Serum Alcohol Blood Type A Positive Blood Type Recheck Required Antibody Screen Negative 11/14/17 04:08 WBC RBC Hgb Hct MCV MCH MCHC RDW Plt Count MPV Prelim Diff (Auto) Neut % (Auto) Lymph % (Auto) [place] % (Auto) Eos % (Auto) Baso % (Auto) Neut # (Auto) Lymph # (Auto) [place] # (Auto) Eos # (Auto) Baso # (Auto) WBC Differential Diff Scan Differential Comment Platelet Estimate Platelet Morphology PT INR APTT Sodium 143 Potassium 4.8 D Chloride 106 Carbon Dioxide 30.2 Anion Gap 7 BUN 15 Creatinine 0.73 Estimated GFR Greater than 89 Random Glucose 155 H Calcium 7.7 L Total Bilirubin AST ALT Alkaline Phosphatase Ammonia Total Protein Albumin Lipase Serum Alcohol Blood Type Blood Type Recheck Antibody Screen - Imaging Impressions Foot X-Ray 11/13/17 14:09 CONCLUSION: No evidence of recent bony injury. Head CT 11/13/17 14:09 CONCLUSION: 1. No acute intracranial abnormality. . Lumbar Spine CT 11/13/17 14:09 CONCLUSION: 1. Acute compression fracture of T12 with less than 20% loss of height and 4 mm of retropulsion. <Richy Montoya - Last Filed: 11/14/17 07:03> Assessment and Plan (1) Constipation Status: Acute Code(s): K59.00 - Constipation, unspecified (2) Upper gastrointestinal hemorrhage Status: Acute Code(s): K92.2 - Gastrointestinal hemorrhage, unspecified (3) Serum ammonia increased Status: Acute Code(s): E72.20 - Disorder of urea cycle metabolism, unspecified - Plan nausea vomiting, hematemesis dark red bleeding for the past 24 hours. 2 day onset of melena stools weakness and fatigue. EtOH abuse 4 times or more a week, aggravating factor, no known alleviating factors at this time. Patient denies any obvious acute pain except for some mild epigastric discomfort to light palpation. history of esophageal varices and EtOH abuse states that he had an EGD in the [place] area back in April 2017 as well as EGD/colonoscopy approximately 1 year ago at [place]. history of polyps and also family history of colon cancer dad at the age of 65. Patient also notes history of constipation with some straining with defecation , no other abdominal pain. Current hemoglobin 11.6, PT/INR 1.1, alkaline phosphatase 126, normal LFTs. Hyperammonemia , ammonia level 80 but patient is showing no signs of encephalopathy. Plan Diet clear liquids today N.p.o. at midnight Consent for EGD colonoscopy in a.m., explained process to patient Go[facility] prep Hold any blood thinners Protonix drip Bowel as needed Monitor labs Supportive care Further recommendations to follow Patient was seen per myself and Dr. Montoya, note was written on his behalf <Thania Trivedi - Last Filed: 11/13/17 16:58> (1) Constipation Status: Acute Code(s): K59.00 - Constipation, unspecified (2) Upper gastrointestinal hemorrhage Status: Acute Code(s): K92.2 - Gastrointestinal hemorrhage, unspecified (3) Serum ammonia increased Status: Acute Code(s): E72.20 - Disorder of urea cycle metabolism, unspecified - Attending Attestation Seen and examined, plan as above. Will obtain consent for EGD and Colonoscopy tomorrow. Further recommendations to follow. Thank you for the consult. <Richy Montoya - Last Filed: 11/14/17 07:03>
[2017-11-13] MEDS: Dextrose 5%/NaCl 0.9% Inj 1,000 ML IV.CONT SCH (17:49)
[2017-11-13] MEDS ORDERED: Octreotide Inj 50 MCG/ML Vial IV.PUSH ONE (18:30)
--- NOTE | 2017-11-13 18:37 | P.HPIM ---
History of Present Illness Primary Care Physician: UNKNOWN Chief Complaint: vomiting blood History of Present Illness: This patient is a 52 y/o Male with an extensive alcohol abuse history. The patient states that he has been drinking alcohol which consists of mainly beer. He states that he drinks approximately 424 ounce cans of beer per day. This regimen has been ongoing for approximately 30 years. He was seen in [facility] at a hospital and underwent EGD in April 2017. As per the patient the EGD showed esophageal varices which were cauterized. He presented to our emergency department this morning with complaints of hematemesis that have been ongoing for the past 24 hours. He denies any fevers or chills he has been having melenic stools over the past couple of days. Prior to his episode of hematemesis in April 2017 he denies any previous GI bleeds. He denies any significant abdominal pain his last alcoholic drink was early this morning. - Diagnosis (1) Acute gastrointestinal hemorrhage (2) Anemia associated with acute blood loss Inpatient Certification: I certify that the inpatient services were ordered in accordance with Medicare regulations governing the order. This includes certification that hospital inpatient services are reasonable and necessary and in the case of services not specified as inpatient-only under 42 CFR 419.22(n), that they are appropriately provided as inpatient services in accordance to with the 2-midnight benchmark under 43 CFR 412.3(e) Estimated Total Length of Stay (Days): 2 Plans for Post Hospital Care: Home Review of Systems All other systems reviewed negative except as stated in HPI PMFSH - History History 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 - Medical History Medical History: Medical History (Last Updated 11/13/17 @ 13:15 by Cherelle Brown RN) Depression Diabetes ETOH abuse Esophageal varices GI bleed HTN (hypertension) - Family History Family History: Family History (Last Updated 11/13/17 @ 18:31 by Anyi Muñoz MD) Other Family history of cancer Family history of colon cancer - Social History I have reviewed the patient's Social History: Yes - Tobacco History Second Hand Smoke Exposure: Yes Tobacco Use In Past 30 Days: Yes Smoking Status: Current every day smoker Tobacco Type: Cigarettes - Alcohol History How Often Do You Have a Drink Containing Alcohol: 4 or more times a week - Substance Use Type Marijuana Status: Active Route Used: Inhalation Reason for Use: Get High - Travel History Recent Travel in the [facility] Within the Last 8 Weeks: No Recent Travel Out of the Country Within the Last 8 Weeks: No - Immunization History Tetanus Immunization: Unsure Hx Influenza Vaccine This Season: No Medications and Allergies Active Medications: Active Medications Al Hydroxide/Mg Hydroxide (Milk Of Magnesia Liq) 30 ml PO Q12H PRN PRN Reason: Mild Constipation Pantoprazole Sodium 80 mg/ (Sodium Chloride) 100 mls @ 10 mls/hr IV.CONT CONT [facility] Last Admin: 11/13/17 14:12 Dose: 10 mls/hr Dextrose/Sodium Chloride (D5w/Normal Saline Inj) 1,000 mls @ 70 mls/hr IV.CONT .[id number] [facility] Last Admin: 11/13/17 17:49 Dose: 100 mls/hr Octreotide Acetate 500 mcg/ (Sodium Chloride) 500.5 mls @ 50.05 mls/hr IV.CONT .Q10H [facility] Ceftriaxone Sodium 1,000 mg/ (Sodium Chloride) 100 mls @ 200 mls/hr IV.SIG Q24H [facility] Lactulose (Lactulose Liq) 30 ml PO DAILY PRN PRN Reason: SEVERE CONSTIPATION Octreotide Acetate (Sandostatin Inj) 50 mcg IV.PUSH ONCE ONE Stop: 11/13/17 18:31 Ondansetron HCl (Zofran Inj) 4 mg IV.PUSH Q6H PRN PRN Reason: NAUSEA OR VOMITING Sodium Chloride (Ns Flush) 2 ml IV.FLUSH PRN PRN PRN Reason: FLUSH AFTER USING IV ACCESS Allergies Allergy/AdvReac Type Severity Reaction Status Date / Time morphine Allergy Severe Shortness Verified 11/13/17 13:22 of Breath buspirone Allergy Intermediate Numbness Verified 11/13/17 13:22 Home Medications Medication Instructions Recorded Confirmed Type amlodipine 5 mg PO DAILY 11/13/17 11/13/17 History aspirin 81 mg PO DAILY 11/13/17 11/13/17 History atenolol 50 mg PO DAILY 11/13/17 11/13/17 History bumetanide 0.5 mg PO DAILY 11/13/17 11/13/17 History divalproex [Depakote] 500 mg PO DAILY 11/13/17 11/13/17 History donepezil 5 mg PO DAILY 11/13/17 11/13/17 History insulin NPH and regular human 1 sliding scale dose SUB-Q UD 11/13/17 11/13/17 History [Novolin 70/30 U-100 Insulin] lanthanum 500 mg PO DAILY 11/13/17 11/13/17 History lisinopril 40 mg PO DAILY 11/13/17 11/13/17 History lorazepam [Ativan] 0.5 mg PO BID 11/13/17 11/13/17 History mesalamine [Lialda] 1.2 g PO BID 11/13/17 11/13/17 History simvastatin 20 mg PO QPM 11/13/17 11/13/17 History tramadol 50 mg PO Q6H PRN 11/13/17 11/13/17 History vit B,A-QD-ydnz-selen-vit D3-E 1 tab PO DAILY 11/13/17 11/13/17 History [RenaPlex-D] Exam Vital signs: Vital Signs 11/13/17 12:45 11/13/17 13:11 11/13/17 13:12 Temperature 98.5 F Pulse Rate 119 H 109 H Respiratory Rate 18 24 Blood Pressure 105/65 104/62 Pulse Oximetry 98 94 L 95 11/13/17 15:04 11/13/17 16:57 Temperature Pulse Rate 105 H 114 H Respiratory Rate 18 23 Blood Pressure 130/74 118/71 Pulse Oximetry 95 97 Intake & Output 11/12/17 11/13/17 11/13/17 18:59 06:59 18:59 Intake Total 1000 / 1000 Output Total 1000 / 1000 Balance 0 / 0 Weight 99.79 kg Intake: IV 1000 / 1000 NS Inj 1,000 ML @ Wide Open IV. 1000 / 1000 SIG BOLUS ONE Rx#:[id number] Output: Urine 1000 / 1000 Narrative: General patient sitting upright, in no acute distress HEENT extraocular movements are intact, bloody saliva noted in the patient's mouth Cardiovascular S1-S2 audible, RRR, no murmurs rubs or gallops Respiratory clear to auscultation bilaterally Abdomen soft, nontender, nondistended, normal bowel sounds Extremities no edema, 2+ distal pulses in bilateral upper and lower extremities Skin Mild jaundice Neuro cranial nerves II through XII intact Results - Labs CBC & Chem 7: 11/13/17 13:00 11/13/17 13:00 Labs: Short CBC 11/13/17 Range/Units 13:00 WBC 5.3 (4.0-11.0) th/mm3 Hgb 11.6 L (13.0-17.0) gm/dL Hct 35.1 L (39.0-51.0) % Plt Count 73 L (150-450) th/mm3 BMP 11/13/17 13:00 Sodium 136 Potassium 4.0 Chloride 100 Carbon Dioxide 22.6 BUN 14 Creatinine 1.22 Calcium 7.6 L Liver Function 11/13/17 Range/Units 13:00 Total Bilirubin 0.7 (0.2-1.0) mg/dL AST 28 (15-37) U/L ALT 21 (12-78) U/L Alkaline Phosphatase 126 H (45-117) U/L Albumin 3.2 L (3.4-5.0) g/dL - Imaging Impressions Foot X-Ray 11/13/17 14:09 CONCLUSION: No evidence of recent bony injury. Head CT 11/13/17 14:09 CONCLUSION: 1. No acute intracranial abnormality. . Lumbar Spine CT 11/13/17 14:09 CONCLUSION: 1. Acute compression fracture of T12 with less than 20% loss of height and 4 mm of retropulsion. Caprini VTE Risk Assessment Caprini VTE Risk Assessment: No/Low Risk (score <= 1) VTE Pharmacological Exception Reason: Active bleeding Caprini Risk Assessment Model: Point Value = 1 Point Value = 2 Point Value = 3 Point Value = 5 Age 41-60 Minor surgery BMI > 25 kg/m2 Swollen legs Varicose veins or History of unexplained or recurrent spontaneous Oral contraceptives or hormone replacement Sepsis (< 1 month) Serious lung disease, including pneumonia (< 1 month) Abnormal pulmonary function Acute myocardial infarction Congestive heart failure (< 1 month) History of inflammatory bowel disease Medical patient at bed rest Age 61-74 Arthroscopic surgery Major open surgery (> 45 min) Laparoscopic surgery (> 45 min) Malignancy Confined to bed (> 72 hours) Immobilizing plaster cast Central venous access Age >= 75 History of VTE Family history of VTE Factor V Leiden Prothrombin [id number] Lupus anticoagulant Anticardiolipin antibodies Elevated serum homocysteine Heparin-induced thrombocytopenia Other congenital or acquired thrombophilia Stroke (< 1 month) Elective arthroplasty Hip, pelvis, or leg fracture Acute spinal cord injury (< 1 month) Prophylaxis Regimen: Total Risk Factor Score Risk Level Prophylaxis Regimen 0-1 Low Early ambulation 2 Moderate Order ONE of the following: *Sequential Compression Device (SCD) *Heparin 5000 units SQ BID 3-4 Higher Order ONE of the following medications: *Heparin 5000 units SQ TID *Enoxaparin/Lovenox 40 mg SQ daily (WT < 150 kg, CrCl > 30 mL/min) *Enoxaparin/Lovenox 30 mg SQ daily (WT < 150 kg, CrCl > 10-29 mL/min) *Enoxaparin/Lovenox 30 mg SQ BID (WT < 150 kg, CrCl > 30 mL/min) AND/OR *Sequential Compression Device (SCD) 5 or more Highest Order ONE of the following medications: *Heparin 5000 units SQ TID (Preferred with Epidurals) *Enoxaparin/Lovenox 40 mg SQ daily (WT < 150 kg, CrCl > 30 mL/min) *Enoxaparin/Lovenox 30 mg SQ daily (WT < 150 kg, CrCl > 10-29 mL/min) *Enoxaparin/Lovenox 30 mg SQ BID (WT < 150 kg, CrCl > 30 mL/min) AND *Sequential Compression Device (SCD) Assessment and Plan - Assessment (1) Acute gastrointestinal hemorrhage Code(s): K92.2 - Gastrointestinal hemorrhage, unspecified Status: Acute (2) Anemia associated with acute blood loss Code(s): D62 - Acute posthemorrhagic anemia Status: Acute - Plan Patient is a 52-year-old male with an extensive history of alcohol abuse he presented to the emergency department with complaints of hematemesis that been ongoing over the past day. As per the patient he had hematemesis in April 2017 EGD was performed at a hospital in [facility] EGD showed bleeding esophageal varices which were cauterized. 1. Acute symptomatic anemia secondary to acute gastrointestinal hemorrhage 2. Alcohol abuse The patient has been started on IV fluids he is on Protonix and octreotide drip GI has been consulted. The plan is for the patient to undergo EGD and colonoscopy tomorrow he will be kept on a clear liquid diet. We will monitor serial hemograms. Colonoscopy preparation has begun with GoLYT[facility]. He is a [employer] and does not want any blood products. The patient was advised to avoid alcohol the risks of continued alcohol abuse were discussed with the patient. The patient is aware of his current condition and responding to all of my questions appropriately.
[2017-11-13 23:45] LABS: Hematocrit 34.4 % (39.0-51.0); Hemoglobin 11.5 gm/dL (13.0-17.0)
[2017-11-14 05:40] LABS: Anion Gap 7 meq/L (5-15); Blood Urea Nitrogen 15 mg/dL (7-18); Calcium 7.7 mg/dL (8.5-10.1); Carbon Dioxide 30.2 meq/L (21.0-32.0); Chloride 106 meq/L (98-107); Glomerular Filtration Rate Greater Than 89 mL/min (>89); Glucose,Random 155 mg/dL (74-106); Potassium 4.8 meq/L (3.5-5.1); Sodium 143 meq/L (136-145)
[2017-11-14] MEDS: Octreotide Inj 500 MCG in Sodium Chlor 0.9% Inj 500 ML IV.CONT SCH ×2 (06:55→06:56)
[2017-11-14] MEDS: Dextrose 5%/NaCl 0.9% Inj 1,000 ML IV.CONT SCH ×2 (06:57→19:15)
[2017-11-14] MEDS ORDERED: Pantoprazole Inj 80 MG in Sodium Chlor 0.9% Inj 100 ML IV.CONT SCH (08:00)
[2017-11-14] MEDS ORDERED: HYDROmorphone PF Inj 2 MG/ML Vial IV.PUSH ONE (09:18)
--- NOTE | 2017-11-14 09:30 | P.PNIM ---
Subjective Interval history: Follow up GI bleed. Patient is currently drinking bowel prep for colonoscopy at 1 pm. Complaining of constant abdominal cramping, 8/10, worse with movement and associated nausea. Requesting pain medication. Denies any chest pain or sob. Physical Exam Vital signs: Vital Signs 11/13/17 12:45 11/13/17 13:11 11/13/17 13:12 Temperature 98.5 F Pulse Rate 119 H 109 H Respiratory Rate 18 24 Blood Pressure 105/65 104/62 Pulse Oximetry 98 94 L 95 11/13/17 15:04 11/13/17 16:57 11/13/17 20:22 Temperature Pulse Rate 105 H 114 H 90 Respiratory Rate 18 23 24 Blood Pressure 130/74 118/71 161/90 H Pulse Oximetry 95 97 96 11/14/17 00:00 11/14/17 04:00 Temperature 98.0 F 98.4 F Pulse Rate 93 H 85 Respiratory Rate 16 17 Blood Pressure 124/71 162/91 H Pulse Oximetry 94 L 94 L Intake & Output 11/13/17 11/14/17 11/14/17 18:59 06:59 18:59 Intake Total 1000 / 1000 1600.5 / 1600.5 100 / 100 Output Total 1000 / 1000 Balance 0 / 0 1600.5 / 1600.5 100 / 100 Weight 99.79 kg Intake: IV 1000 / 1000 1600.5 / 1600.5 100 / 100 D5W/Normal Saline Inj 1,000 ML 1000 / 1000 @ 70 mls/hr IV.CONT .[id number] MANUEL Rx#:[id number] SandoSTATIN Inj 500 MCG In NS 500.5 / 500.5 Inj 500 ML @ 50 MCG/HR 50.05 mls/hr IV.CONT .Q10H MANUEL Rx#: [id number] Protonix Inj 80 MG In NS Inj 0 / 0 100 / 100 100 ML @ 10 mls/hr IV.CONT CONT MANUEL Rx#:[id number] NS Inj 1,000 ML @ Wide Open IV. 1000 / 1000 SIG BOLUS ONE Rx#:[id number] Rocephin Inj 1,000 MG In NS Inj 100 / 100 100 ML @ 200 mls/hr IV.SIG Q24H MANUEL Rx#:[id number] Output: Urine 1000 / 1000 Narrative: GENERAL: This is a well-nourished, well-developed patient, in no apparent distress. CARDIOVASCULAR: Regular rate and rhythm without murmurs, gallops, or rubs. RESPIRATORY: Clear to auscultation. Breath sounds equal bilaterally. No wheezes , rales, or rhonchi. GASTROINTESTINAL: Abdomen soft, lower abdominal tenderness, nondistended. Normal active bowel sounds MUSCULOSKELETAL: Extremities without clubbing, cyanosis, or edema. NEURO: Alert & Oriented x4 to person, place, time, situation. Moves all ext x4 Results - Labs CBC & Chem 7: 11/13/17 23:20 11/14/17 04:08 Laboratory Results - last 24 hr 11/13/17 11/13/17 11/13/17 13:00 13:00 13:00 WBC 5.3 RBC 4.25 L Hgb 11.6 L Hct 35.1 L MCV 82.7 MCH 27.4 MCHC 33.1 RDW 18.6 H Plt Count 73 L MPV 8.9 Prelim Diff (Auto) Slide review pending Neut % (Auto) 69.1 Lymph % (Auto) 13.1 [place] % (Auto) 14.8 H Eos % (Auto) 2.5 Baso % (Auto) 0.5 Neut # (Auto) 3.6 Lymph # (Auto) 0.7 L [place] # (Auto) 0.8 Eos # (Auto) 0.1 Baso # (Auto) 0.0 WBC Differential . Diff Scan Auto diff confirmed Differential Comment . Platelet Estimate Low L Platelet Morphology Normal PT 11.5 INR 1.1 APTT 27.8 Sodium 136 Potassium 4.0 Chloride 100 Carbon Dioxide 22.6 Anion Gap 13 BUN 14 Creatinine 1.22 Estimated GFR 62 L POC Glucose Random Glucose 131 H Calcium 7.6 L Total Bilirubin 0.7 AST 28 ALT 21 Alkaline Phosphatase 126 H Ammonia Total Protein 6.4 Albumin 3.2 L Lipase 96 Serum Alcohol 45 H Blood Type Blood Type Recheck Antibody Screen 11/13/17 11/13/17 11/13/17 13:31 13:31 23:20 WBC RBC Hgb 11.5 L Hct 34.4 L MCV MCH MCHC RDW Plt Count MPV Prelim Diff (Auto) Neut % (Auto) Lymph % (Auto) [place] % (Auto) Eos % (Auto) Baso % (Auto) Neut # (Auto) Lymph # (Auto) [place] # (Auto) Eos # (Auto) Baso # (Auto) WBC Differential Diff Scan Differential Comment Platelet Estimate Platelet Morphology PT INR APTT Sodium Potassium Chloride Carbon Dioxide Anion Gap BUN Creatinine Estimated GFR POC Glucose Random Glucose Calcium Total Bilirubin AST ALT Alkaline Phosphatase Ammonia 80 H Total Protein Albumin Lipase Serum Alcohol Blood Type A Positive Blood Type Recheck Required Antibody Screen Negative 11/14/17 11/14/17 04:08 07:50 WBC RBC Hgb Hct MCV MCH MCHC RDW Plt Count MPV Prelim Diff (Auto) Neut % (Auto) Lymph % (Auto) [place] % (Auto) Eos % (Auto) Baso % (Auto) Neut # (Auto) Lymph # (Auto) [place] # (Auto) Eos # (Auto) Baso # (Auto) WBC Differential Diff Scan Differential Comment Platelet Estimate Platelet Morphology PT INR APTT Sodium 143 Potassium 4.8 D Chloride 106 Carbon Dioxide 30.2 Anion Gap 7 BUN 15 Creatinine 0.73 Estimated GFR Greater than 89 POC Glucose 157 H Random Glucose 155 H Calcium 7.7 L Total Bilirubin AST ALT Alkaline Phosphatase Ammonia Total Protein Albumin Lipase Serum Alcohol Blood Type Blood Type Recheck Antibody Screen - Imaging Impressions Foot X-Ray 11/13/17 14:09 CONCLUSION: No evidence of recent bony injury. Head CT 11/13/17 14:09 CONCLUSION: 1. No acute intracranial abnormality. . Lumbar Spine CT 11/13/17 14:09 CONCLUSION: 1. Acute compression fracture of T12 with less than 20% loss of height and 4 mm of retropulsion. Assessment and Plan - Assessment (1) Acute gastrointestinal hemorrhage Code(s): K92.2 - Gastrointestinal hemorrhage, unspecified Status: Acute (2) Anemia associated with acute blood loss Code(s): D62 - Acute posthemorrhagic anemia Status: Acute - Plan 52-year-old male with an extensive history of alcohol abuse he presented to the emergency department with complaints of hematemesis that been ongoing over the past day. As per the patient he had hematemesis in April 2017 EGD was performed at a hospital in [facility] EGD showed bleeding esophageal varices which were cauterized. Acute symptomatic anemia secondary to acute gastrointestinal hemorrhage, hgb 11.5 -Cont Protonix and octreotide -GI following, colonoscopy at 1 pm - Patient is a Yazidism and does not want any blood products. 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
[2017-11-14 11:05] LABS: Hematocrit 34.9 % (39.0-51.0); Hemoglobin 11.6 gm/dL (13.0-17.0)
[2017-11-14] MEDS ORDERED: Chlorhexidine Gluconate 2% 1 Pack (2 Cloths) TOPICAL ONE (11:42)
[2017-11-14] MEDS ORDERED: Metoprolol Tartrate 25 MG Tablet PO ONE (11:42)
[2017-11-14] MEDS ORDERED: Sodium Chlor 0.9% Inj 500 ML IV.SIG SCH (12:00)
--- NOTE | 2017-11-14 13:35 | GIPROC ---
[facility] [address] [facility]. [facility], [address] EGD PROCEDURE REPORT EXAM DATE: 11/14/2017 PATIENT NAME: Noe Koroma MR #: [id number] BIRTHDATE: 1965 ATTENDING: Richy Montoya MD ORDER #: [id number] BENDING ROLL OPERATOR: Shelly Emerson and Yon Bernard STATUS: inpatient INDICATIONS: The patient is a 52 yr old male here for an EGD due to hematochezia PROCEDURE PERFORMED: EGD w/ biopsy MEDICATIONS: Per Anesthesia and None. TOPICAL ANESTHETIC: none CONSENT: The patient understands the risks and benefits of the procedure and understands that these risks include, but are not limited to: sedation, allergic reaction, infection, perforation and/or bleeding. Alternative means of evaluation and treatment include, among others: physical exam, x-rays, and/or surgical intervention. The patient elects to proceed with this endoscopic procedure. medical equipment was checked for proper function. Hand hygiene and appropriate measures for infection prevention was taken. After the risks, benefits and alternatives of the procedure were thoroughly explained, Informed consent was verified, confirmed and timeout was successfully executed by the treatment team. The patient was anesthetized with topical anesthesia and the EC-[id number] (Pedi C) endoscope was introduced through the mouth and advanced to the second portion of the duodenum. Retroflexion was performed and was normal The gastroscope was then slowly withdrawn and removed. ESOPHAGUS: There was LA Class A esophagitis noted. STOMACH: Multiple large non-bleeding, irregular shaped and clean-based ulcers were found at the pylorus. Biopsies were taken at the center of the ulcers and at edge of the ulcers. DUODENUM: The duodenal mucosa appeared normal in the duodenal bulb, 2nd part duodenum, and 3rd part duodenum. ADVERSE EVENTS: There were no complications. IMPRESSIONS: 1. There was LA Class A esophagitis noted , scar of previous banding noted. 2. Multiple large ulcers were found at the pylorus; biopsies were taken 3. Normal duodenal mucosa in the duodenal bulb, 2nd part duodenum, and 3rd part duodenum 4. Retroflexion was performed and was normal RECOMMENDATIONS: 1. Continue PPI 2. Await biopsy results. Biopsy results will not be ready for 7-10 days. If you don't hear from us in two weeks, call our office for biopsy results. PATIENT CONDITION: stable DISPOSITION: Observation REPEAT EXAM: Return 1 year EGD Richy Montoya MD eSigned: Richy Montoya MD 11/14/2017 1:34 PM cc: PATIENT NAME: Noe Koroma MR#: [id number]
--- NOTE | 2017-11-14 13:39 | GIPROC ---
[facility] [address] [facility]. [facility], [address] COLONOSCOPY PROCEDURE REPORT EXAM DATE: 11/14/2017 PATIENT NAME: Noe Koroma MR #: [id number] BIRTHDATE: 1965 ENDOSCOPIST: Richy Montoya MD ORDER #: [id number] NURSE TRANSITION: Yon Bernard and Shelly Emerson STATUS: inpatient INDICATIONS: The patient is a 52 yr old male here for a colonoscopy due to hematochezia PROCEDURE PERFORMED: Colonoscopy, diagnostic MEDICATIONS: Per Anesthesia and None. PREP QUALITY: poor PREP TYPE:GoLytely ESTIMATED BLOOD LOSS: None CONSENT: The patient understands the risks and benefits of the procedure and understands that these risks include, but are not limited to: sedation, allergic reaction, infection, perforation and/or bleeding. Alternative means of evaluation and treatment include, among others: physical exam, x-rays, and/or surgical intervention. The patient elects to proceed with this endoscopic procedure. medical equipment was checked for proper function. Hand hygiene and appropriate measures for infection prevention was taken. After the risks, benefits and alternatives of the procedure were thoroughly explained, Informed consent was verified, confirmed and timeout was successfully executed by the treatment team. A digital exam was performed and revealed no abnormalities of the rectum The Pentax EC-[id number] endoscope was introduced through the anus and advanced to the cecum, which was identified by both the appendix and ileocecal valve. The instrument was then slowly withdrawn as the colon was fully examined. COLON FINDINGS: A significant amount of stool was present throughout the entire examined colon. Retroflexed views revealed internal hemorrhoids and Retroflexed views revealed medium internal hemorrhoids The scope was then completely withdrawn from the patient and the procedure terminated. PROCEDURE WITHDRAWAL TIME:9minutes ADVERSE EVENTS: There were no complications. IMPRESSIONS: 1. Significant amount of stool was present throughout the entire examined colon 2. Retroflexed views revealed internal hemorrhoids RECOMMENDATIONS: No treatment RECALL: Return 3 months Colonoscopy as outpatient for better prep. Richy Montoya MD eSigned: Richy Montoya MD 11/14/2017 1:38 PM cc:
[2017-11-14] MEDS ORDERED: Dextrose 50% in Water 50 ML Vial IV.PUSH PRN (14:51)
[2017-11-14] MEDS ORDERED: MESALAMINE 1.2 GM PO SCH (15:15)
[2017-11-14] MEDS ORDERED: [UNRECOGNIZED DRUG - OTHER] PO SCH (15:15)
[2017-11-14] MEDS: Lisinopril 20 MG Tablet PO SCH (15:26)
[2017-11-14] MEDS: Atenolol 50 MG Tablet PO SCH (15:26)
[2017-11-14] MEDS: amLODIPine 5 MG Tablet PO SCH (15:26)
[2017-11-14] MEDS: LORazepam 0.5 MG Tablet PO PRN (15:26)
[2017-11-14] MEDS: Divalproex 500 MG DR Tablet PO SCH (15:27)
[2017-11-14] MEDS: Insulin NovoLOG Aspart Correctional Sugar Inj SQ SCH ×2 (17:33→21:57)
[2017-11-14] MEDS: Dicyclomine 10 MG Capsule PO PRN (18:32)
[2017-11-14] MEDS: Pantoprazole Inj 40 MG Vial IV.PUSH SCH (21:59)
[2017-11-15] MEDS: Dicyclomine 10 MG Capsule PO PRN ×3 (00:12→17:05)
[2017-11-15] MEDS: Insulin NovoLOG Aspart Correctional Sugar Inj SQ SCH ×4 (08:00→22:42)
[2017-11-15] MEDS: Atenolol 50 MG Tablet PO SCH (08:45)
[2017-11-15] MEDS: Divalproex 500 MG DR Tablet PO SCH (08:45)
[2017-11-15] MEDS: Pantoprazole Inj 40 MG Vial IV.PUSH SCH (08:45)
[2017-11-15] MEDS: Lisinopril 20 MG Tablet PO SCH (08:45)
[2017-11-15] MEDS: amLODIPine 5 MG Tablet PO SCH (08:45)
[2017-11-15] MEDS: Dextrose 5%/NaCl 0.9% Inj 1,000 ML IV.CONT SCH ×2 (08:50→23:49)
--- NOTE | 2017-11-15 09:50 | P.PNIM ---
Subjective Interval history: Follow up gi bleed and back pain. Patient states he is having pain, throbbing, constant to lower back, 6/10. I discussed with him orders and that a neurosurgeon will evaluate to see if anything can be done. Pain meds and muscle relaxer ordered. Encouraged patient to stop drinking due to esophageal varices. Physical Exam Vital signs: Vital Signs 11/14/17 11:48 11/14/17 13:43 11/14/17 14:02 Temperature 98.2 F 98.2 F Pulse Rate 96 H 83 Respiratory Rate 16 18 Blood Pressure 153/96 H 151/83 H Pulse Oximetry 94 L 95 95 11/14/17 16:00 11/14/17 19:57 11/14/17 20:00 Temperature 97.1 F L 98 F Pulse Rate 85 81 Respiratory Rate 15 16 Blood Pressure 163/87 H 116/67 Pulse Oximetry 95 95 96 11/15/17 00:00 11/15/17 01:22 11/15/17 04:00 Temperature 97.9 F 98.2 F Pulse Rate 83 81 Respiratory Rate 16 16 16 Blood Pressure 114/74 140/82 Pulse Oximetry 95 94 L 11/15/17 08:00 Temperature 98.5 F Pulse Rate 88 Respiratory Rate 18 Blood Pressure 147/91 H Pulse Oximetry 95 Intake & Output 11/14/17 11/15/17 11/15/17 18:59 06:59 18:59 Intake Total 1180.5 / 1180.5 1520 / 1520 Output Total 600 / 600 800 / 800 Balance 580.5 / 580.5 720 / 720 Intake: IV 700.5 / 700.5 100 / 100 SandoSTATIN Inj 500 MCG In NS 500.5 / 500.5 Inj 500 ML @ 50 MCG/HR 50.05 mls/hr IV.CONT .Q10H MANUEL Rx#: [id number] Protonix Inj 80 MG In NS Inj 200 / 200 100 ML @ 10 mls/hr IV.CONT Q10H MANUEL Rx#:[id number] Rocephin Inj 1,000 MG In NS Inj 100 / 100 100 ML @ 200 mls/hr IV.SIG Q24H MANUEL Rx#:[id number] Oral 480 / 480 1420 / 1420 Output: Urine 600 / 600 800 / 800 Other: # Voids 4 Date of Last Bowel Movement 09/06/18 # Bowel Movements 0 Narrative: GENERAL: This is a well-nourished, well-developed patient, in no apparent distress. CARDIOVASCULAR: Regular rate and rhythm without murmurs, gallops, or rubs. RESPIRATORY: Clear to auscultation. Breath sounds equal bilaterally. No wheezes , rales, or rhonchi. GASTROINTESTINAL: Abdomen soft, lower abdominal tenderness, nondistended. Normal active bowel sounds MUSCULOSKELETAL: Extremities without clubbing, cyanosis, or edema. NEURO: Alert & Oriented x4 to person, place, time, situation. Moves all ext x4 Results - Labs CBC & Chem 7: 11/14/17 10:45 11/14/17 04:08 Laboratory Results - last 24 hr 11/14/17 11/14/17 11/14/17 10:45 12:55 13:59 Hgb 11.6 L Hct 34.9 L POC Glucose 142 H 144 H 11/14/17 11/14/17 11/15/17 17:32 21:52 07:57 Hgb Hct POC Glucose 133 H 174 H 126 H Assessment and Plan - Assessment (1) Acute gastrointestinal hemorrhage Code(s): K92.2 - Gastrointestinal hemorrhage, unspecified Status: Acute (2) Anemia associated with acute blood loss Code(s): D62 - Acute posthemorrhagic anemia Status: Acute - Plan 52-year-old male with an extensive history of alcohol abuse he presented to the emergency department with complaints of hematemesis that been ongoing over the past day. As per the patient he had hematemesis in April 2017 EGD was performed at a hospital in [facility] EGD showed bleeding esophageal varices which were cauterized. Acute symptomatic anemia secondary to acute gastrointestinal hemorrhage, hgb 11.5 -discontinue octreotide, changed Protonix to PO BID -GI following, EGD/colonoscopy completed showed multiple large ulcers - Patient is a Hindu and does not want any blood products. -Dilaudid x 1 given for pain, Bentyl ordered by abdominal cramping -H&H stable T12 compression fracture Lumbar CT shows a t12 compression fracture -Tramadol and Flexeril for pain -consult to neurosurgery for evaluation Alcohol abuse, patient states he is going to meetings -Encouraged to quit DVT prophylaxis: SCDs, hold chemical due to bleeding Discharge Planning: pending evaluation by neurosurgery and PT
[2017-11-16] MEDS: Dicyclomine 10 MG Capsule PO PRN ×2 (01:26→12:25)
[2017-11-16] MEDS: LORazepam 0.5 MG Tablet PO PRN (04:58)
[2017-11-16 09:36] LABS: Baso % (Auto) 0.5 % (0.0-2.0); Eos # (Auto) 0.1 th/mm3 (0.0-0.4); Eos % (Auto) 3.4 % (0.0-4.0); Hematocrit 36.1 % (39.0-51.0); Lymph # (Auto) 0.6 th/mm3 (1.0-4.8); Lymph % (Auto) 17.9 % (9.0-44.0); Mean Corpuscular HGB Conc 33.2 % (32.0-36.0); Mean Corpuscular Hemoglobin 27.9 pg (27.0-34.0); Mean Corpuscular Volume 83.9 fL (80.0-100.0); Mean Platelet Volume 8.6 fL (7.0-11.0); Mono # (Auto) 0.6 th/mm3 (0.0-0.9); Mono % (Auto) 16.4 % (0.0-8.0); Neut # (Auto) 2.2 th/mm3 (1.8-7.7); Neut % (Auto) 61.8 % (16.0-70.0); Platelet Count 54 th/mm3 (150-450); Red Cell Distribution Width 18.9 % (11.6-17.2); White Blood Count 3.6 th/mm3 (4.0-11.0)
[2017-11-16] MEDS: Insulin NovoLOG Aspart Correctional Sugar Inj SQ SCH ×3 (09:43→17:22)
[2017-11-16] MEDS: amLODIPine 5 MG Tablet PO SCH (09:45)
[2017-11-16] MEDS: Atenolol 50 MG Tablet PO SCH (09:45)
[2017-11-16] MEDS: Divalproex 500 MG DR Tablet PO SCH (09:45)
[2017-11-16] MEDS: Lisinopril 20 MG Tablet PO SCH (09:45)
[2017-11-16 10:00] LABS: Anion Gap 8 meq/L (5-15); Blood Urea Nitrogen 6 mg/dL (7-18); Calcium 8.2 mg/dL (8.5-10.1); Carbon Dioxide 27.6 meq/L (21.0-32.0); Chloride 105 meq/L (98-107); Glomerular Filtration Rate Greater Than 89 mL/min (>89); Glucose,Random 119 mg/dL (74-106); Potassium 4.1 meq/L (3.5-5.1); Sodium 141 meq/L (136-145)
--- NOTE | 2017-11-16 10:54 | P.CONNS ---
History of Present Illness Consult date: 11/16/17 Reason for Consult: Thoracic compression fracture Primary Care Provider: UNKNOWN Chief Complaint: vomiting blood History of Present Illness: 52 yo M with PMH of ETOH abuse admitted to the medicine service for management of GI bleed. patient reported 2 days prior s/p mechanical fall with sudden onset of mechanical LBP. worse with ambulation/twisting. denies any neurological symptoms (weakness, bb incontinence, radiculopathy). Review of Systems All other systems reviewed negative except as stated in HPI [facility] - History History 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 - Medical History Medical History: Medical History (Last Updated 11/13/17 @ 13:15 by Cherelle Brown RN) Depression Diabetes ETOH abuse Esophageal varices GI bleed HTN (hypertension) - Family History Family History: Family History (Last Updated 11/13/17 @ 18:31 by Anyi Muñoz MD) Other Family history of cancer Family history of colon cancer - Tobacco History Second Hand Smoke Exposure: Yes Tobacco Use In Past 30 Days: Yes Smoking Status: Current every day smoker Tobacco Type: Cigarettes - Alcohol History How Often Do You Have a Drink Containing Alcohol: 4 or more times a week - Substance Use Type Marijuana Status: Active Route Used: Inhalation Reason for Use: Get High - Travel History Recent Travel in the [place] Within the Last 8 Weeks: No Recent Travel Out of the Country Within the Last 8 Weeks: No - Immunization History Tetanus Immunization: Unsure Hx Influenza Vaccine This Season: No Medications and Allergies Active Medications: Active Medications Al Hydroxide/Mg Hydroxide (Milk Of Magngrace Liq) 30 ml PO Q12H PRN PRN Reason: Mild Constipation Amlodipine Besylate (Norvasc) 5 mg PO DAILY [facility] Last Admin: 11/16/17 09:45 Dose: 5 mg Atenolol (Tenormin) 50 mg PO DAILY [facility] Last Admin: 11/16/17 09:45 Dose: 50 mg Bumetanide (Bumex) 0.5 mg PO DAILY [facility] Last Admin: 11/16/17 09:46 Dose: 0.5 mg Cyclobenzaprine HCl (Flexeril) 5 mg PO Q8H PRN PRN Reason: MUSCLE SPASM Last Admin: 11/15/17 19:47 Dose: 5 mg Dextrose (D50w Vial) 50 ml IV.PUSH UNSCH PRN PRN Reason: PER HYPOGLYCEMIA PROTOCOL Dicyclomine HCl (Bentyl) 10 mg PO QID PRN PRN Reason: ABDOMINAL PAIN Last Admin: 11/16/17 01:26 Dose: 10 mg Divalproex Sodium (Depakote Dr) 500 mg PO DAILY [facility] Last Admin: 11/16/17 09:45 Dose: 500 mg Donepezil HCl (Aricept) 5 mg PO DAILY [facility] Last Admin: 11/16/17 09:47 Dose: 5 mg Glucagon (Glucagon Inj) 1 mg OTHER PRN PRN PRN Reason: for Hypoglycemia Protocol Dextrose/Sodium Chloride (D5w/Normal Saline Inj) 1,000 mls @ 70 mls/hr IV.CONT .[id number] [facility] Last Admin: 11/15/17 23:49 Dose: 70 mls/hr Ceftriaxone Sodium 1,000 mg/ (Sodium Chloride) 100 mls @ 200 mls/hr IV.SIG Q24H [facility] Last Infusion: 11/15/17 20:47 Dose: Infused Sodium Chloride (Ns Inj) 500 mls @ 30 mls/hr IV.SIG .Q10H [facility] Last Admin: 11/14/17 15:13 Dose: Not Given Insulin Aspart (Novolog Insulin Correctional Sugar Inj) 0 unit SQ ACHS [facility]; Protocol Last Admin: 11/16/17 09:43 Dose: 2 unit Lactulose (Lactulose Liq) 30 ml PO DAILY PRN PRN Reason: SEVERE CONSTIPATION Lanthanum Carbonate (Fosrenol Chewable) 500 mg PO DAILY [facility] Last Admin: 11/16/17 09:45 Dose: 500 mg Lisinopril (Prinivil) 40 mg PO DAILY [facility] Last Admin: 11/16/17 09:45 Dose: 40 mg Lorazepam (Ativan) 0.5 mg PO BID PRN PRN Reason: AGITATION Last Admin: 11/16/17 04:58 Dose: 0.5 mg Miscellaneous (Pill Splitter) 1 each OTHER UNSCH [facility] Ondansetron HCl (Zofran Inj) 4 mg IV.PUSH Q6H PRN PRN Reason: NAUSEA OR VOMITING Last Admin: 11/15/17 19:47 Dose: 4 mg Pantoprazole Sodium (Protonix) 40 mg PO BID [facility] Last Admin: 11/16/17 09:46 Dose: 40 mg Ptownmed (Mesalamine ([Lialda] 1.2 G)) 0 each PO BID [facility] Pravastatin Sodium (Pravachol) 40 mg PO HS [facility] Last Admin: 11/15/17 21:00 Dose: 40 mg Sodium Chloride (Ns Flush) 2 ml IV.FLUSH PRN PRN PRN Reason: FLUSH AFTER USING IV ACCESS Tramadol HCl (Ultram) 50 mg PO Q6H PRN PRN Reason: pain 1 to 10 Last Admin: 11/16/17 09:56 Dose: 50 mg Allergies Allergy/AdvReac Type Severity Reaction Status Date / Time morphine Allergy Severe Shortness Verified 11/13/17 13:22 of Breath buspirone Allergy Intermediate Numbness Verified 11/13/17 13:22 Home Medications Medication Instructions Recorded Confirmed Type amlodipine 5 mg PO DAILY 11/13/17 11/13/17 History aspirin 81 mg PO DAILY 11/13/17 11/13/17 History atenolol 50 mg PO DAILY 11/13/17 11/13/17 History bumetanide 0.5 mg PO DAILY 11/13/17 11/13/17 History divalproex [Depakote] 500 mg PO DAILY 11/13/17 11/13/17 History donepezil 5 mg PO DAILY 11/13/17 11/13/17 History insulin NPH and regular human 1 sliding scale dose SUB-Q UD 11/13/17 11/13/17 History [Novolin 70/30 U-100 Insulin] lanthanum 500 mg PO DAILY 11/13/17 11/13/17 History lisinopril 40 mg PO DAILY 11/13/17 11/13/17 History lorazepam [Ativan] 0.5 mg PO BID 11/13/17 11/13/17 History mesalamine [Lialda] 1.2 g PO BID 11/13/17 11/13/17 History simvastatin 20 mg PO QPM 11/13/17 11/13/17 History tramadol 50 mg PO Q6H PRN 11/13/17 11/13/17 History vit B,W-JX-ltdc-selen-vit D3-E 1 tab PO DAILY 11/13/17 11/13/17 History [RenaPlex-D] Exam Vital signs: Vital Signs 11/15/17 10:48 11/15/17 12:00 11/15/17 16:20 Temperature 99.1 F 98.9 F Pulse Rate 76 89 Respiratory Rate 18 18 Blood Pressure 117/75 118/65 Pulse Oximetry 93 L 94 L 94 L 11/15/17 18:17 11/15/17 20:00 11/15/17 20:07 Temperature 98.9 F Pulse Rate 89 83 Respiratory Rate 16 Blood Pressure 132/76 Pulse Oximetry 94 L 94 L 11/16/17 00:00 11/16/17 00:09 11/16/17 01:56 Temperature 98.1 F Pulse Rate 83 87 Respiratory Rate 17 Blood Pressure 102/62 Pulse Oximetry 95 95 11/16/17 04:00 11/16/17 08:00 11/16/17 08:47 Temperature 97.7 F 98.3 F Pulse Rate 71 84 Respiratory Rate 17 18 Blood Pressure 123/71 135/81 Pulse Oximetry 97 93 L 93 L Intake & Output 11/15/17 11/16/17 11/16/17 18:59 06:59 18:59 Intake Total 1360 / 1360 1100 / 1100 Output Total 3095 / 3095 2150 / 2150 Balance -1735 / -1735 -1050 / -1050 Intake: IV 1100 / 1100 D5W/Normal Saline Inj 1,000 ML 1000 / 1000 @ 70 mls/hr IV.CONT .[id number] [facility] Rx#:[id number] Rocephin Inj 1,000 MG In NS Inj 100 / 100 100 ML @ 200 mls/hr IV.SIG Q24H [facility] Rx#:[id number] Oral 1360 / 1360 Output: Urine 3095 / 3095 2150 / 2150 Other: Date of Last Bowel Movement 11/14/17 11/14/17 Narrative: E4 AOx3 Follows commands x4 5/5 strength in the upper and lower extremities sensation intact 1/4 reflexes throughout Results - Laboratory Findings CBC and BMP: 11/16/17 08:10 11/16/17 08:10 Abnormal lab findings: Abnormal Labs 11/13/17 11/13/17 11/13/17 13:00 13:00 13:31 WBC RBC 4.25 L Hgb 11.6 L Hct 35.1 L RDW 18.6 H Plt Count 73 L [place] % (Auto) 14.8 H Lymph # (Auto) 0.7 L Platelet Estimate Low L BUN Estimated GFR 62 L POC Glucose Random Glucose 131 H Calcium 7.6 L Alkaline Phosphatase 126 H Ammonia 80 H Albumin 3.2 L Serum Alcohol 45 H 11/13/17 11/14/17 11/14/17 23:20 04:08 07:50 WBC RBC Hgb 11.5 L Hct 34.4 L RDW Plt Count [place] % (Auto) Lymph # (Auto) Platelet Estimate BUN Estimated GFR POC Glucose 157 H Random Glucose 155 H Calcium 7.7 L Alkaline Phosphatase Ammonia Albumin Serum Alcohol 11/14/17 11/14/17 11/14/17 10:45 12:55 13:59 WBC RBC Hgb 11.6 L Hct 34.9 L RDW Plt Count [place] % (Auto) Lymph # (Auto) Platelet Estimate BUN Estimated GFR POC Glucose 142 H 144 H Random Glucose Calcium Alkaline Phosphatase Ammonia Albumin Serum Alcohol 11/14/17 11/14/17 11/15/17 17:32 21:52 07:57 WBC RBC Hgb Hct RDW Plt Count [place] % (Auto) Lymph # (Auto) Platelet Estimate BUN Estimated GFR POC Glucose 133 H 174 H 126 H Random Glucose Calcium Alkaline Phosphatase Ammonia Albumin Serum Alcohol 11/15/17 11/15/17 11/16/17 12:24 17:07 08:10 WBC 3.6 L RBC 4.30 L Hgb 12.0 L Hct 36.1 L RDW 18.9 H Plt Count 54 L [place] % (Auto) 16.4 H Lymph # (Auto) 0.6 L Platelet Estimate BUN Estimated GFR POC Glucose 145 H 129 H Random Glucose Calcium Alkaline Phosphatase Ammonia Albumin Serum Alcohol 11/16/17 11/16/17 08:10 09:42 WBC RBC Hgb Hct RDW Plt Count [place] % (Auto) Lymph # (Auto) Platelet Estimate BUN 6 L Estimated GFR POC Glucose 170 H Random Glucose 119 H Calcium 8.2 L Alkaline Phosphatase Ammonia Albumin Serum Alcohol Assessment and Plan - Plan 52 yo with symptomatic T12 compression fracture seen on CT imaging. neurologically intact -no surgical intervention indicated -recommend TLSO for comfort -recommend conservative therapy consisting of analgesics, pt/ot, etc. -follow up prn -due to patients age and concern for early onset osteoporosis, recommend evaluation and workup
--- NOTE | 2017-11-16 12:13 | P.PN ---
Subjective Interval history: Follow-up alcohol abuse/GI bleed/symptomatic T12 compression fracture November 16, 2017-patient seen and examined; patient complaining of some abdominal pain. Denies any GI bleed. Also complained of some mild back pain. Physical Exam Vital signs: Vital Signs 11/15/17 16:20 11/15/17 18:17 11/15/17 20:00 Temperature 98.9 F 98.9 F Pulse Rate 89 89 Respiratory Rate 18 16 Blood Pressure 118/65 132/76 Pulse Oximetry 94 L 94 L 94 L 11/15/17 20:07 11/16/17 00:00 11/16/17 00:09 Temperature 98.1 F Pulse Rate 83 83 87 Respiratory Rate 17 Blood Pressure 102/62 Pulse Oximetry 95 11/16/17 01:56 11/16/17 04:00 11/16/17 08:00 Temperature 97.7 F 98.3 F Pulse Rate 71 84 Respiratory Rate 17 18 Blood Pressure 123/71 135/81 Pulse Oximetry 95 97 93 L 11/16/17 08:47 Temperature Pulse Rate Respiratory Rate Blood Pressure Pulse Oximetry 93 L Intake & Output 11/15/17 11/16/17 11/16/17 18:59 06:59 18:59 Intake Total 1360 / 1360 1100 / 1100 Output Total 3095 / 3095 2150 / 2150 Balance -1735 / -1735 -1050 / -1050 Intake: IV 1100 / 1100 D5W/Normal Saline Inj 1,000 ML 1000 / 1000 @ 70 mls/hr IV.CONT .[id number] MANUEL Rx#:[id number] Rocephin Inj 1,000 MG In NS Inj 100 / 100 100 ML @ 200 mls/hr IV.SIG Q24H MANUEL Rx#:[id number] Oral 1360 / 1360 Output: Urine 3095 / 3095 2150 / 2150 Other: Date of Last Bowel Movement 11/14/17 11/14/17 Narrative: GENERAL: NAD CARDIOVASCULAR: Regular rate and rhythm without murmurs, gallops, or rubs. RESPIRATORY: Clear to auscultation. Breath sounds equal bilaterally. No wheezes , rales, or rhonchi. GASTROINTESTINAL: Abdomen soft, lower abdominal tenderness, nondistended. Normal active bowel sounds MUSCULOSKELETAL: Extremities without clubbing, cyanosis, or edema. NEURO: Alert & Oriented x4 to person, place, time, situation. Moves all ext x4 Results - Labs CBC & Chem 7: 11/16/17 08:10 11/16/17 08:10 Laboratory Results - last 24 hr 11/15/17 11/15/17 11/15/17 12:24 17:07 20:04 WBC RBC Hgb Hct MCV MCH MCHC RDW Plt Count MPV Prelim Diff (Auto) Neut % (Auto) Lymph % (Auto) [place] % (Auto) Eos % (Auto) Baso % (Auto) Neut # (Auto) Lymph # (Auto) [place] # (Auto) Eos # (Auto) Baso # (Auto) WBC Differential Diff Scan Differential Comment Sodium Potassium Chloride Carbon Dioxide Anion Gap BUN Creatinine Estimated GFR POC Glucose 145 H 129 H 99 Random Glucose Calcium 11/16/17 11/16/17 11/16/17 08:10 08:10 09:42 WBC 3.6 L RBC 4.30 L Hgb 12.0 L Hct 36.1 L MCV 83.9 MCH 27.9 MCHC 33.2 RDW 18.9 H Plt Count 54 L MPV 8.6 Prelim Diff (Auto) Slide review pending Neut % (Auto) 61.8 Lymph % (Auto) 17.9 [place] % (Auto) 16.4 H Eos % (Auto) 3.4 Baso % (Auto) 0.5 Neut # (Auto) 2.2 Lymph # (Auto) 0.6 L [place] # (Auto) 0.6 Eos # (Auto) 0.1 Baso # (Auto) 0.0 WBC Differential . Diff Scan Auto diff confirmed Differential Comment . Sodium 141 Potassium 4.1 Chloride 105 Carbon Dioxide 27.6 Anion Gap 8 BUN 6 L Creatinine 0.62 Estimated GFR Greater than 89 POC Glucose 170 H Random Glucose 119 H Calcium 8.2 L 11/16/17 11:20 WBC RBC Hgb Hct MCV MCH MCHC RDW Plt Count MPV Prelim Diff (Auto) Neut % (Auto) Lymph % (Auto) [place] % (Auto) Eos % (Auto) Baso % (Auto) Neut # (Auto) Lymph # (Auto) [place] # (Auto) Eos # (Auto) Baso # (Auto) WBC Differential Diff Scan Differential Comment Sodium Potassium Chloride Carbon Dioxide Anion Gap BUN Creatinine Estimated GFR POC Glucose 167 H Random Glucose Calcium - Procedures EGD and colonoscopy Assessment and Plan - Assessment (1) Acute gastrointestinal hemorrhage Code(s): K92.2 - Gastrointestinal hemorrhage, unspecified Status: Acute (2) Anemia associated with acute blood loss Code(s): D62 - Acute posthemorrhagic anemia Status: Acute (3) Compression fracture of T12 vertebra Code(s): S22.080A - Wedge compression fracture of T11-T12 vertebra, initial encounter for closed fracture Status: Acute (4) Alcohol abuse Code(s): F10.10 - Alcohol abuse, uncomplicated Status: Acute - Plan 52-year-old man with Acute symptomatic anemia secondary to acute gastrointestinal hemorrhage -s/p octreotide, currently on Protonix 40 twice daily -GI following, EGD/colonoscopy completed showed multiple large ulcers - Patient is a [employer] and does not want any blood products. -Bentyl ordered by abdominal cramping -H&H stable T12 compression fracture Lumbar CT shows a t12 compression fracture -Tramadol and Flexeril for pain -Appreciate input from neurosurgery, continue with TLSO brace, PT At risk for Early osteoporosis -Patient follow-up for workup Alcohol abuse -Encouraged to quit DVT prophylaxis: SCDs, hold chemical due to bleeding
[2017-11-16] MEDS: Dextrose 5%/NaCl 0.9% Inj 1,000 ML IV.CONT SCH (12:24)
--- NOTE | 2017-11-16 12:32 | P.DS ---
Date of admission: 11/13/17 17:17 Primary care physician: UNKNOWN Anticipated date of discharge: 11/16/17 Brief History from admission: This patient is a 52 y/o Male with an extensive alcohol abuse history. The patient states that he has been drinking alcohol which consists of mainly beer. He states that he drinks approximately 424 ounce cans of beer per day. This regimen has been ongoing for approximately 30 years. He was seen in [facility] at a hospital and underwent EGD in April 2017. As per the patient the EGD showed esophageal varices which were cauterized. He presented to our emergency department this morning with complaints of hematemesis that have been ongoing for the past 24 hours. He denies any fevers or chills he has been having melenic stools over the past couple of days. Prior to his episode of hematemesis in April 2017 he denies any previous GI bleeds. He denies any significant abdominal pain his last alcoholic drink was early this morning. DS: Diagnosis - Discharge Diagnosis (1) Acute gastrointestinal hemorrhage Status: Acute (2) Anemia associated with acute blood loss Status: Acute (3) Compression fracture of T12 vertebra Status: Acute (4) Alcohol abuse Status: Acute DS: Summary Hospital Course: While in hospital, patient was treated for: Acute symptomatic anemia secondary to acute gastrointestinal hemorrhage -s/p octreotide, currently on Protonix 40 twice daily -GI following, EGD/colonoscopy completed showed multiple large ulcers - Patient is a [employer] and does not want any blood products. -Bentyl ordered by abdominal cramping -H&H stable T12 compression fracture Lumbar CT shows a t12 compression fracture -Tramadol and Flexeril for pain -Appreciate input from neurosurgery, continue with TLSO brace, PT At risk for Early osteoporosis -Patient follow-up for workup Alcohol abuse -Encouraged to quit DVT prophylaxis: SCDs, hold chemical due to bleeding - Time Spent with Patient Total time spent providing and/or coordinating discharge services: Less than 30 minutes Exam Vital signs: Vital Signs 11/15/17 16:20 11/15/17 18:17 11/15/17 20:00 Temperature 98.9 F 98.9 F Pulse Rate 89 89 Respiratory Rate 18 16 Blood Pressure 118/65 132/76 Pulse Oximetry 94 L 94 L 94 L 11/15/17 20:07 11/16/17 00:00 11/16/17 00:09 Temperature 98.1 F Pulse Rate 83 83 87 Respiratory Rate 17 Blood Pressure 102/62 Pulse Oximetry 95 11/16/17 01:56 11/16/17 04:00 11/16/17 08:00 Temperature 97.7 F 98.3 F Pulse Rate 71 84 Respiratory Rate 17 18 Blood Pressure 123/71 135/81 Pulse Oximetry 95 97 93 L 11/16/17 08:47 Temperature Pulse Rate Respiratory Rate Blood Pressure Pulse Oximetry 93 L Intake & Output 11/15/17 11/16/17 11/16/17 18:59 06:59 18:59 Intake Total 1360 / 1360 1100 / 1100 Output Total 3095 / 3095 2150 / 2150 Balance -1735 / -1735 -1050 / -1050 Intake: IV 1100 / 1100 D5W/Normal Saline Inj 1,000 ML 1000 / 1000 @ 70 mls/hr IV.CONT .[id number] MANUEL Rx#:[id number] Rocephin Inj 1,000 MG In NS Inj 100 / 100 100 ML @ 200 mls/hr IV.SIG Q24H MANUEL Rx#:[id number] Oral 1360 / 1360 Output: Urine 3095 / 3095 2150 / 2150 Other: Date of Last Bowel Movement 11/14/17 11/14/17 Narrative: GENERAL: NAD SKIN: Warm and dry. HEAD: Normocephalic. EYES: No scleral icterus. No injection or drainage. NECK: Supple, trachea midline. No JVD or lymphadenopathy. CARDIOVASCULAR: Regular rate and rhythm without murmurs, gallops, or rubs. RESPIRATORY: Breath sounds equal bilaterally. No accessory muscle use. GASTROINTESTINAL: Abdomen soft, non-tender, nondistended. MUSCULOSKELETAL: No cyanosis, or edema. BACK: Nontender without obvious deformity. No CVA tenderness. Results Procedures completed during hospitalization: EGD and colonoscopy Labs on day of discharge: Labs from last 24 hours 11/16/17 11/16/17 11/16/17 11:20 09:42 08:10 WBC RBC Hgb Hct MCV MCH MCHC RDW Plt Count MPV Prelim Diff (Auto) Neut % (Auto) Lymph % (Auto) Power % (Auto) Eos % (Auto) Baso % (Auto) Neut # (Auto) Lymph # (Auto) Power # (Auto) Eos # (Auto) Baso # (Auto) WBC Differential Diff Scan Differential Comment Sodium 141 Potassium 4.1 Chloride 105 Carbon Dioxide 27.6 Anion Gap 8 BUN 6 L Creatinine 0.62 Estimated GFR Greater than 89 POC Glucose 167 H 170 H Random Glucose 119 H Calcium 8.2 L 11/16/17 11/15/17 11/15/17 08:10 20:04 17:07 WBC 3.6 L RBC 4.30 L Hgb 12.0 L Hct 36.1 L MCV 83.9 MCH 27.9 MCHC 33.2 RDW 18.9 H Plt Count 54 L MPV 8.6 Prelim Diff (Auto) Slide review pending Neut % (Auto) 61.8 Lymph % (Auto) 17.9 Power % (Auto) 16.4 H Eos % (Auto) 3.4 Baso % (Auto) 0.5 Neut # (Auto) 2.2 Lymph # (Auto) 0.6 L Power # (Auto) 0.6 Eos # (Auto) 0.1 Baso # (Auto) 0.0 WBC Differential . Diff Scan Auto diff confirmed Differential Comment . Sodium Potassium Chloride Carbon Dioxide Anion Gap BUN Creatinine Estimated GFR POC Glucose 99 129 H Random Glucose Calcium 11/15/17 12:24 WBC RBC Hgb Hct MCV MCH MCHC RDW Plt Count MPV Prelim Diff (Auto) Neut % (Auto) Lymph % (Auto) Power % (Auto) Eos % (Auto) Baso % (Auto) Neut # (Auto) Lymph # (Auto) Power # (Auto) Eos # (Auto) Baso # (Auto) WBC Differential Diff Scan Differential Comment Sodium Potassium Chloride Carbon Dioxide Anion Gap BUN Creatinine Estimated GFR POC Glucose 145 H Random Glucose Calcium - Impressions ITS Impressions Foot X-Ray 11/13/17 14:09 CONCLUSION: No evidence of recent bony injury. Head CT 11/13/17 14:09 CONCLUSION: 1. No acute intracranial abnormality. . Lumbar Spine CT 11/13/17 14:09 CONCLUSION: 1. Acute compression fracture of T12 with less than 20% loss of height and 4 mm of retropulsion. Discharge Plan - Discharge Condition Condition: Stable - Physicians Team Primary Care Provider: UNKNOWN, Attending Provider: Brian Gonzalez Other Providers: Richy Montoya MD ; Osmar Chance MD
== END 2017-11-16 17:52 | disposition home or self-care (01) ==
LOC: NEPE 12:39 → NEDA 17:17 → N06 20:52
PROVIDERS: ADMIT Hospitalist; ATTEND Hospitalist
PROC: COLONOS (2017-11-14 12:40)
PROC: PANENDO (2017-11-14 12:40)

== ENCOUNTER 2018-01-15 06:55 | Inpatient (IN) ==
[2018-01-15] MEDS ORDERED: Sod Chloride 0.9% Inj 1,000 ML IV.SIG ONE (07:18)
--- NOTE | 2018-01-15 07:21 | ED ---
HPI General Chief complaint: Nausea/Vomiting/Diarrhea Stated complaint: N/V Time Seen by Provider: 01/15/18 07:18 Source: patient Mode of arrival: ambulatory Limitations: no limitations History of Present Illness HPI Narrative: 52-year-old male patient with history of alcohol abuse, esophageal varices and GI bleed, presents to the ER today because he has had a few days of generalized 7 out of 10 abdominal pains, nausea and vomiting at least 10 times yesterday. He denies any diarrhea, fevers, or other symptoms. He does not know of any exacerbating or alleviating factors. Related Data Home Medications Medication Instructions Recorded Confirmed amlodipine 5 mg PO DAILY 11/13/17 01/15/18 aspirin 81 mg PO DAILY 11/13/17 01/15/18 atenolol 50 mg PO DAILY 11/13/17 01/15/18 bumetanide 0.5 mg PO DAILY 11/13/17 01/15/18 divalproex [Depakote] 500 mg PO DAILY 11/13/17 01/15/18 donepezil 5 mg PO DAILY 11/13/17 01/15/18 insulin NPH and regular human 1 sliding scale dose SUB-Q UD 11/13/17 01/15/18 [Novolin 70/30 U-100 Insulin] lanthanum 500 mg PO DAILY 11/13/17 01/15/18 lisinopril 40 mg PO DAILY 11/13/17 01/15/18 lorazepam [Ativan] 0.5 mg PO BID 11/13/17 01/15/18 mesalamine [Lialda] 1.2 g PO BID 11/13/17 01/15/18 simvastatin 20 mg PO QPM 11/13/17 01/15/18 tramadol 50 mg PO Q6H PRN 11/13/17 01/15/18 vit B,H-OF-ayyw-selen-vit D3-E 1 tab PO DAILY 11/13/17 01/15/18 [RenaPlex-D] Previous Rx's Medication Instructions Recorded cyclobenzaprine 5 mg PO Q8H PRN #30 tab 11/16/17 dicyclomine 10 mg PO QID PRN #20 cap 11/16/17 pantoprazole 40 mg PO BID #60 tab 11/16/17 Allergies Allergy/AdvReac Type Severity Reaction Status Date / Time morphine Allergy Severe Shortness Verified 11/13/17 13:22 of Breath buspirone Allergy Intermediate Numbness Verified 11/13/17 13:22 Review of Systems ROS: all other systems reviewed are negative [facility] Medical History Medical History Depression (Acute) Diabetes (Acute) ETOH abuse (Acute) Esophageal varices (Acute) GI bleed (Acute) HTN (hypertension) (Acute) Family History Family History Other Family history of cancer Family history of colon cancer Social History Social History Substance History: Active Abuse Second Hand Smoke Exposure: Yes Smoking Status: Current every day smoker Tobacco Type: Cigarettes How Often Do You Have a Drink Containing Alcohol: 2 to 3 times a week Recent Travel in [facility] within the Last 8 Weeks: No Recent Out of Country Travel within the Last 8 Weeks: No Substance Abuse Detail Marijuana: Substance Use Status: Active Route Used Substance Abuse: Inhalation Reason for Use: Calm Down Immunization History Tetanus Immunization: >5 Years Exam Narrative Exam Narrative: GENERAL: Well-developed middle-age obese male patient currently in mild distress. Awake and oriented x3. SKIN: Focused skin assessment warm/dry. HEAD: Atraumatic. Normocephalic. EYES: Pupils equal and round. No scleral icterus. No injection or drainage. ENT: No nasal bleeding or discharge. Mucous membranes pink and moist. NECK: Trachea midline. No JVD. CARDIOVASCULAR: Regular rate and rhythm. No murmur appreciated. RESPIRATORY: No accessory muscle use. Clear to auscultation. Breath sounds equal bilaterally. GASTROINTESTINAL: Abdomen soft, protuberant, diffusely tender without guarding or rebound, nondistended. Hepatic and splenic margins not palpable. MUSCULOSKELETAL: No obvious deformities. No clubbing. No cyanosis. No edema. NEUROLOGICAL: Awake and alert. No obvious cranial nerve deficits. Motor grossly within normal limits. Normal speech. PSYCHIATRIC: Appropriate mood and affect; insight and judgment normal. Course Initial Documented Vital Signs Temperature 89.7 F L 01/15/18 06:59 Respiratory Rate 18 01/15/18 06:59 Blood Pressure 172/102 H 01/15/18 06:59 Pulse Oximetry 96 01/15/18 06:59 Last Documented Vital Signs Temperature 98.9 F 01/16/18 17:00 Pulse Rate 73 01/16/18 17:00 Respiratory Rate 18 01/16/18 17:00 Blood Pressure 158/87 H 01/16/18 17:00 Pulse Oximetry 96 01/16/18 17:00 Medical Decision Making MDM Narrative Medical decision making narrative: Lab work shows elevated glucose levels. CAT scan did not show other acute processes. At this point, considering patient's history, GI bleed history, plan would be to admit the patient for further evaluation. Case has been discussed with [facility] resident service for his admission. Medical Screen Exam Complete: Yes Emergency Medical Condition: Yes Differential Diagnosis Differential Diagnosis: Gastritis versus gastroenteritis versus obstruction versus dehydration versus electrolyte abnormalities Lab Data Lab results reviewed: Yes I reviewed the patient's lab results. Result diagrams: 01/16/18 15:35 01/16/18 03:06 Lab Results 01/15/18 01/15/18 01/15/18 Range/Units 07:30 07:47 07:47 WBC 3.9 L (4.0-11.0) th/mm3 RBC 4.66 (4.50-5.90) mil/mm3 Hgb 11.9 L (13.0-17.0) gm/dL Hct 37.5 L (39.0-51.0) % MCV 80.5 (80.0-100.0) fL MCH 25.7 L (27.0-34.0) pg MCHC 31.9 L (32.0-36.0) % RDW 17.1 (11.6-17.2) % Plt Count 74 L (150-450) th/mm3 MPV 8.6 (7.0-11.0) fL Prelim Diff (Auto) Slide review pending Neut % (Auto) 68.7 (16.0-70.0) % Lymph % (Auto) 13.6 (9.0-44.0) % [place] % (Auto) 14.6 H (0.0-8.0) % Eos % (Auto) 2.5 (0.0-4.0) % Baso % (Auto) 0.6 (0.0-2.0) % Neut # (Auto) 2.7 (1.8-7.7) th/mm3 Lymph # (Auto) 0.5 L (1.0-4.8) th/mm3 [place] # (Auto) 0.6 (0.0-0.9) th/mm3 Eos # (Auto) 0.1 (0.0-0.4) th/mm3 Baso # (Auto) 0.0 (0.0-0.2) th/mm3 WBC Differential . Diff Scan Auto diff confirmed Differential Comment . Platelet Estimate (Normal) Platelet Morphology (Normal) Ovalocytes (None) PT (9.8-11.6) sec INR Ratio Sodium 143 (136-145) meq/L Potassium 4.1 (3.5-5.1) meq/L Chloride 104 (98-107) meq/L Carbon Dioxide 31.4 (21.0-32.0) meq/L Anion Gap 8 (5-15) meq/L BUN 5 L (7-18) mg/dL Creatinine 0.70 (0.60-1.30) mg/dL Estimated GFR Greater than 89 (>89) mL/min POC Glucose (68-110) mg/dl Random Glucose 152 H (74-106) mg/dL Hemoglobin A1c (4.3-6.0) % Calcium 8.6 (8.5-10.1) mg/dL Magnesium 1.7 (1.5-2.5) mg/dL Total Bilirubin 0.8 (0.2-1.0) mg/dL AST 33 (15-37) U/L ALT 26 (12-78) U/L Alkaline Phosphatase 149 H (45-117) U/L Ammonia (11-32) mcmol/L Total Protein 7.1 (6.4-8.2) g/dL Albumin 3.3 L (3.4-5.0) g/dL Lipase 84 (73-393) U/L Urine Color Yellow (Yellw/Straw) Urine Clarity Clear (Clear) Urine pH 8.0 (5.0-8.5) Ur Specific [place] 1.008 (1.002-1.035) Urine Protein Negative (Neg-Trace) mg/dL Urine Glucose (UA) Negative (Negative) mg/dL Urine Ketones Negative (Negative) mg/dL Urine Occult Blood Negative (Negative) Urine Nitrate Negative (Negative) Urine Bilirubin Negative (Negative) Urine Urobilinogen Less than 2 (Less than 2) mg/dL Ur Leukocyte Esterase Negative (Negative) Urine WBC Less than 1 (0-5) /hpf Micro UA Comment Culture not ind Ur Microscopic Review Not Reportable Urine Culture Comments Culture not ind Blood Type Antibody Screen 01/15/18 01/15/18 01/15/18 Range/Units 07:47 12:20 13:39 WBC (4.0-11.0) th/mm3 RBC (4.50-5.90) mil/mm3 Hgb 11.4 L (13.0-17.0) gm/dL Hct 35.6 L (39.0-51.0) % MCV (80.0-100.0) fL MCH (27.0-34.0) pg MCHC (32.0-36.0) % RDW (11.6-17.2) % Plt Count (150-450) th/mm3 MPV (7.0-11.0) fL Prelim Diff (Auto) Neut % (Auto) (16.0-70.0) % Lymph % (Auto) (9.0-44.0) % [place] % (Auto) (0.0-8.0) % Eos % (Auto) (0.0-4.0) % Baso % (Auto) (0.0-2.0) % Neut # (Auto) (1.8-7.7) th/mm3 Lymph # (Auto) (1.0-4.8) th/mm3 [place] # (Auto) (0.0-0.9) th/mm3 Eos # (Auto) (0.0-0.4) th/mm3 Baso # (Auto) (0.0-0.2) th/mm3 WBC Differential Diff Scan Differential Comment Platelet Estimate (Normal) Platelet Morphology (Normal) Ovalocytes (None) PT (9.8-11.6) sec INR Ratio Sodium (136-145) meq/L Potassium (3.5-5.1) meq/L Chloride (98-107) meq/L Carbon Dioxide (21.0-32.0) meq/L Anion Gap (5-15) meq/L BUN (7-18) mg/dL Creatinine (0.60-1.30) mg/dL Estimated GFR (>89) mL/min POC Glucose (68-110) mg/dl Random Glucose (74-106) mg/dL Hemoglobin A1c 6.0 (4.3-6.0) % Calcium (8.5-10.1) mg/dL Magnesium (1.5-2.5) mg/dL Total Bilirubin (0.2-1.0) mg/dL AST (15-37) U/L ALT (12-78) U/L Alkaline Phosphatase (45-117) U/L Ammonia 54 H (11-32) mcmol/L Total Protein (6.4-8.2) g/dL Albumin (3.4-5.0) g/dL Lipase (73-393) U/L Urine Color (Yellw/Straw) Urine Clarity (Clear) Urine pH (5.0-8.5) Ur Specific [place] (1.002-1.035) Urine Protein (Neg-Trace) mg/dL Urine Glucose (UA) (Negative) mg/dL Urine Ketones (Negative) mg/dL Urine Occult Blood (Negative) Urine Nitrate (Negative) Urine Bilirubin (Negative) Urine Urobilinogen (Less than 2) mg/dL Ur Leukocyte Esterase (Negative) Urine WBC (0-5) /hpf Micro UA Comment Ur Microscopic Review Urine Culture Comments Blood Type Antibody Screen 01/15/18 01/15/18 01/15/18 Range/Units 16:50 17:20 20:57 WBC (4.0-11.0) th/mm3 RBC (4.50-5.90) mil/mm3 Hgb 11.9 L (13.0-17.0) gm/dL Hct 35.7 L (39.0-51.0) % MCV (80.0-100.0) fL MCH (27.0-34.0) pg MCHC (32.0-36.0) % RDW (11.6-17.2) % Plt Count (150-450) th/mm3 MPV (7.0-11.0) fL Prelim Diff (Auto) Neut % (Auto) (16.0-70.0) % Lymph % (Auto) (9.0-44.0) % [place] % (Auto) (0.0-8.0) % Eos % (Auto) (0.0-4.0) % Baso % (Auto) (0.0-2.0) % Neut # (Auto) (1.8-7.7) th/mm3 Lymph # (Auto) (1.0-4.8) th/mm3 [place] # (Auto) (0.0-0.9) th/mm3 Eos # (Auto) (0.0-0.4) th/mm3 Baso # (Auto) (0.0-0.2) th/mm3 WBC Differential Diff Scan Differential Comment Platelet Estimate (Normal) Platelet Morphology (Normal) Ovalocytes (None) PT 12.2 H (9.8-11.6) sec INR 1.2 Ratio Sodium (136-145) meq/L Potassium (3.5-5.1) meq/L Chloride (98-107) meq/L Carbon Dioxide (21.0-32.0) meq/L Anion Gap (5-15) meq/L BUN (7-18) mg/dL Creatinine (0.60-1.30) mg/dL Estimated GFR (>89) mL/min POC Glucose 115 H (68-110) mg/dl Random Glucose (74-106) mg/dL Hemoglobin A1c (4.3-6.0) % Calcium (8.5-10.1) mg/dL Magnesium (1.5-2.5) mg/dL Total Bilirubin (0.2-1.0) mg/dL AST (15-37) U/L ALT (12-78) U/L Alkaline Phosphatase (45-117) U/L Ammonia (11-32) mcmol/L Total Protein (6.4-8.2) g/dL Albumin (3.4-5.0) g/dL Lipase (73-393) U/L Urine Color (Yellw/Straw) Urine Clarity (Clear) Urine pH (5.0-8.5) Ur Specific [place] (1.002-1.035) Urine Protein (Neg-Trace) mg/dL Urine Glucose (UA) (Negative) mg/dL Urine Ketones (Negative) mg/dL Urine Occult Blood (Negative) Urine Nitrate (Negative) Urine Bilirubin (Negative) Urine Urobilinogen (Less than 2) mg/dL Ur Leukocyte Esterase (Negative) Urine WBC (0-5) /hpf Micro UA Comment Ur Microscopic Review Urine Culture Comments Blood Type Antibody Screen 1101/16/18 01/16/18 Range/Units 22:05 03:06 03:06 WBC 4.1 (4.0-11.0) th/mm3 RBC 4.48 L (4.50-5.90) mil/mm3 Hgb 11.5 L (13.0-17.0) gm/dL Hct 36.0 L (39.0-51.0) % MCV 80.3 (80.0-100.0) fL MCH 25.6 L (27.0-34.0) pg MCHC 31.8 L (32.0-36.0) % RDW 17.4 H (11.6-17.2) % Plt Count 72 L (150-450) th/mm3 MPV 8.7 (7.0-11.0) fL Prelim Diff (Auto) Slide review pending Neut % (Auto) 60.8 (16.0-70.0) % Lymph % (Auto) 19.8 (9.0-44.0) % [place] % (Auto) 15.4 H (0.0-8.0) % Eos % (Auto) 3.1 (0.0-4.0) % Baso % (Auto) 0.9 (0.0-2.0) % Neut # (Auto) 2.5 (1.8-7.7) th/mm3 Lymph # (Auto) 0.8 L (1.0-4.8) th/mm3 [place] # (Auto) 0.6 (0.0-0.9) th/mm3 Eos # (Auto) 0.1 (0.0-0.4) th/mm3 Baso # (Auto) 0.0 (0.0-0.2) th/mm3 WBC Differential . Diff Scan Auto diff confirmed Differential Comment . Platelet Estimate Low L (Normal) Platelet Morphology Normal (Normal) Ovalocytes 1+ H (None) PT (9.8-11.6) sec INR Ratio Sodium 141 (136-145) meq/L Potassium 4.2 (3.5-5.1) meq/L Chloride 104 (98-107) meq/L Carbon Dioxide 26.8 (21.0-32.0) meq/L Anion Gap 10 (5-15) meq/L BUN 5 L (7-18) mg/dL Creatinine 0.87 (0.60-1.30) mg/dL Estimated GFR Greater than 89 (>89) mL/min POC Glucose 172 H (68-110) mg/dl Random Glucose 220 H (74-106) mg/dL Hemoglobin A1c (4.3-6.0) % Calcium 7.9 L (8.5-10.1) mg/dL Magnesium (1.5-2.5) mg/dL Total Bilirubin 0.9 (0.2-1.0) mg/dL AST 30 (15-37) U/L ALT 23 (12-78) U/L Alkaline Phosphatase 142 H (45-117) U/L Ammonia (11-32) mcmol/L Total Protein 6.8 (6.4-8.2) g/dL Albumin 3.1 L (3.4-5.0) g/dL Lipase (73-393) U/L Urine Color (Yellw/Straw) Urine Clarity (Clear) Urine pH (5.0-8.5) Ur Specific [place] (1.002-1.035) Urine Protein (Neg-Trace) mg/dL Urine Glucose (UA) (Negative) mg/dL Urine Ketones (Negative) mg/dL Urine Occult Blood (Negative) Urine Nitrate (Negative) Urine Bilirubin (Negative) Urine Urobilinogen (Less than 2) mg/dL Ur Leukocyte Esterase (Negative) Urine WBC (0-5) /hpf Micro UA Comment Ur Microscopic Review Urine Culture Comments Blood Type Antibody Screen 01/16/18 01/16/18 01/16/18 Range/Units 03:07 08:37 14:15 WBC (4.0-11.0) th/mm3 RBC (4.50-5.90) mil/mm3 Hgb (13.0-17.0) gm/dL Hct (39.0-51.0) % MCV (80.0-100.0) fL MCH (27.0-34.0) pg MCHC (32.0-36.0) % RDW (11.6-17.2) % Plt Count (150-450) th/mm3 MPV (7.0-11.0) fL Prelim Diff (Auto) Neut % (Auto) (16.0-70.0) % Lymph % (Auto) (9.0-44.0) % [place] % (Auto) (0.0-8.0) % Eos % (Auto) (0.0-4.0) % Baso % (Auto) (0.0-2.0) % Neut # (Auto) (1.8-7.7) th/mm3 Lymph # (Auto) (1.0-4.8) th/mm3 [place] # (Auto) (0.0-0.9) th/mm3 Eos # (Auto) (0.0-0.4) th/mm3 Baso # (Auto) (0.0-0.2) th/mm3 WBC Differential Diff Scan Differential Comment Platelet Estimate (Normal) Platelet Morphology (Normal) Ovalocytes (None) PT (9.8-11.6) sec INR Ratio Sodium (136-145) meq/L Potassium (3.5-5.1) meq/L Chloride (98-107) meq/L Carbon Dioxide (21.0-32.0) meq/L Anion Gap (5-15) meq/L BUN (7-18) mg/dL Creatinine (0.60-1.30) mg/dL Estimated GFR (>89) mL/min POC Glucose 250 H 135 H 135 H (68-110) mg/dl Random Glucose (74-106) mg/dL Hemoglobin A1c (4.3-6.0) % Calcium (8.5-10.1) mg/dL Magnesium (1.5-2.5) mg/dL Total Bilirubin (0.2-1.0) mg/dL AST (15-37) U/L ALT (12-78) U/L Alkaline Phosphatase (45-117) U/L Ammonia (11-32) mcmol/L Total Protein (6.4-8.2) g/dL Albumin (3.4-5.0) g/dL Lipase (73-393) U/L Urine Color (Yellw/Straw) Urine Clarity (Clear) Urine pH (5.0-8.5) Ur Specific [place] (1.002-1.035) Urine Protein (Neg-Trace) mg/dL Urine Glucose (UA) (Negative) mg/dL Urine Ketones (Negative) mg/dL Urine Occult Blood (Negative) Urine Nitrate (Negative) Urine Bilirubin (Negative) Urine Urobilinogen (Less than 2) mg/dL Ur Leukocyte Esterase (Negative) Urine WBC (0-5) /hpf Micro UA Comment Ur Microscopic Review Urine Culture Comments Blood Type Antibody Screen 01/16/18 01/16/18 Range/Units 15:35 15:35 WBC 6.7 D (4.0-11.0) th/mm3 RBC 4.49 L (4.50-5.90) mil/mm3 Hgb 11.7 L (13.0-17.0) gm/dL Hct 35.9 L (39.0-51.0) % MCV 79.8 L (80.0-100.0) fL MCH 26.0 L (27.0-34.0) pg MCHC 32.6 (32.0-36.0) % RDW 17.4 H (11.6-17.2) % Plt Count 84 L (150-450) th/mm3 MPV 8.5 (7.0-11.0) fL Prelim Diff (Auto) Slide review pending Neut % (Auto) 77.5 H (16.0-70.0) % Lymph % (Auto) 8.3 L (9.0-44.0) % [place] % (Auto) 12.3 H (0.0-8.0) % Eos % (Auto) 1.3 (0.0-4.0) % Baso % (Auto) 0.6 (0.0-2.0) % Neut # (Auto) 5.2 (1.8-7.7) th/mm3 Lymph # (Auto) 0.6 L (1.0-4.8) th/mm3 [place] # (Auto) 0.8 (0.0-0.9) th/mm3 Eos # (Auto) 0.1 (0.0-0.4) th/mm3 Baso # (Auto) 0.0 (0.0-0.2) th/mm3 WBC Differential . Diff Scan Auto diff confirmed Differential Comment . Platelet Estimate (Normal) Platelet Morphology (Normal) Ovalocytes (None) PT (9.8-11.6) sec INR Ratio Sodium (136-145) meq/L Potassium (3.5-5.1) meq/L Chloride (98-107) meq/L Carbon Dioxide (21.0-32.0) meq/L Anion Gap (5-15) meq/L BUN (7-18) mg/dL Creatinine (0.60-1.30) mg/dL Estimated GFR (>89) mL/min POC Glucose (68-110) mg/dl Random Glucose (74-106) mg/dL Hemoglobin A1c (4.3-6.0) % Calcium (8.5-10.1) mg/dL Magnesium (1.5-2.5) mg/dL Total Bilirubin (0.2-1.0) mg/dL AST (15-37) U/L ALT (12-78) U/L Alkaline Phosphatase (45-117) U/L Ammonia (11-32) mcmol/L Total Protein (6.4-8.2) g/dL Albumin (3.4-5.0) g/dL Lipase (73-393) U/L Urine Color (Yellw/Straw) Urine Clarity (Clear) Urine pH (5.0-8.5) Ur Specific [place] (1.002-1.035) Urine Protein (Neg-Trace) mg/dL Urine Glucose (UA) (Negative) mg/dL Urine Ketones (Negative) mg/dL Urine Occult Blood (Negative) Urine Nitrate (Negative) Urine Bilirubin (Negative) Urine Urobilinogen (Less than 2) mg/dL Ur Leukocyte Esterase (Negative) Urine WBC (0-5) /hpf Micro UA Comment Ur Microscopic Review Urine Culture Comments Blood Type A Positive Antibody Screen Negative Imaging Data Attestation: I personally reviewed and interpreted this imaging study as follows : Radiologist's impression: Abdomen Ultrasound 01/15/18 00:00 CONCLUSION: 1. No significant ascites. Abdomen/Pelvis CT 01/15/18 07:18 CONCLUSION: 1. There is a very small ingested metallic foreign body in the mid transverse colon without evidence for colitis or perforation at this time. This does not have the typical appearance of a barbecue bristle although this cannot be entirely excluded. 2. Cirrhotic liver with evidence for portal hypertension and prominent gastroesophageal varices. There is no ascites although there is diffuse mesenteric edema. This is particularly prominent near the fourth portion of the duodenum. Suspect this is dependent mesenteric edema rather than duodenitis. 3. Additional ancillary findings, as above. Abdomen X-Ray 01/16/18 00:00 CONCLUSION: 1. 4 mm linear metallic density in the right mid quadrant possibly representing a small surgical clip. 2. Otherwise, unremarkable exam. Chest CT 01/16/18 00:00 CONCLUSION: 1. Mild infiltrates are noted in the posterior lower lung hussein bilaterally suggestive of atelectasis. Otherwise, lung hussein are grossly clear. 2. Nonspecific 1.5 cm lymph node in the anterior superior mediastinum. 3. Nonspecific thickening involving the distal esophagus. If clinically indicated, a barium swallow could be performed on a nonemergent outpatient basis. Soft Tissue Neck CT 01/16/18 00:00 CONCLUSION: 1. Grossly unremarkable CT soft tissue neck for patient's age. 2. Nonspecific 1.5 cm lymph node in the anterior superior mediastinum. Discharge Plan Discharge Disposition Patient Disposition: 30 Still Patient Discharge Condition Condition: Stable Discharge Details Anticipated Discharge Date: 01/15/18 Diagnosis: Abdominal pain Physicians Team ED Provider: Dimitri Hamilton Primary Care Provider: Yvon Oscar, [place] Provider: Florian Ritchie Other Providers: Ina May ; Florian White ; Conor Maki Discharge Interventions Interventions: ED Discharge Assessment Last Done: 01/15/18 14:01 Vital Signs Last Done: 01/15/18 07:07 Status ED Status: Left Department Discharge Information Discharge Date/Time: 01/15/18 14:01
[2018-01-15 08:16] LABS: Baso % (Auto) 0.6 % (0.0-2.0); Eos # (Auto) 0.1 th/mm3 (0.0-0.4); Eos % (Auto) 2.5 % (0.0-4.0); Hematocrit 37.5 % (39.0-51.0); Hemoglobin 11.9 gm/dL (13.0-17.0); Lymph # (Auto) 0.5 th/mm3 (1.0-4.8); Lymph % (Auto) 13.6 % (9.0-44.0); Mean Corpuscular HGB Conc 31.9 % (32.0-36.0); Mean Corpuscular Hemoglobin 25.7 pg (27.0-34.0); Mean Corpuscular Volume 80.5 fL (80.0-100.0); Mean Platelet Volume 8.6 fL (7.0-11.0); Mono # (Auto) 0.6 th/mm3 (0.0-0.9); Mono % (Auto) 14.6 % (0.0-8.0); Neut # (Auto) 2.7 th/mm3 (1.8-7.7); Neut % (Auto) 68.7 % (16.0-70.0); Platelet Count 74 th/mm3 (150-450); Red Blood Count 4.66 mil/mm3 (4.50-5.90); Red Cell Distribution Width 17.1 % (11.6-17.2); White Blood Count 3.9 th/mm3 (4.0-11.0)
[2018-01-15 08:42] LABS: Alanine Aminotransferase 26 U/L (12-78); Albumin 3.3 g/dL (3.4-5.0); Anion Gap 8 meq/L (5-15); Aspartate Aminotransferase 33 U/L (15-37); Blood Urea Nitrogen 5 mg/dL (7-18); Calcium 8.6 mg/dL (8.5-10.1); Carbon Dioxide 31.4 meq/L (21.0-32.0); Chloride 104 meq/L (98-107); Glomerular Filtration Rate Greater Than 89 mL/min (>89); Glucose,Random 152 mg/dL (74-106); Lipase 84 U/L (73-393); Magnesium 1.7 mg/dL (1.5-2.5); Potassium 4.1 meq/L (3.5-5.1); Sodium 143 meq/L (136-145)
[2018-01-15 08:44] LABS: Alkaline Phosphatase 149 U/L (45-117); Total Protein 7.1 g/dL (6.4-8.2)
--- NOTE | 2018-01-15 09:36 | CT ---
EXAM DATE: 01/15/2018 9:20 AM EST AGE/SEX: 52 years / Male INDICATIONS: Diffuse abdominal pain with nausea and vomiting for one day CLINICAL DATA: This is the patient's initial encounter. Patient reports that signs and symptoms have been present for 3 days and indicates a pain score of 6/10. MEDICAL/SURGICAL HISTORY: Diabetes. Hypertension. GI bleed None. ORAL CONTRAST: No oral contrast ingested. RADIATION DOSE: 16.49 CTDI (mGy) [place] [facility] [place]/26/2017. . TECHNIQUE: Multiple contiguous axial images were obtained through the abdomen and pelvis following b olus infusion of 97 ml Omnipaque 350 (iohexol) nonionic water-soluble contrast as a single exam dos e. No oral contrast ingested. Using automated exposure control and adjustment of the mA and/or kV ac cording to patient size, radiation dose was kept as low as reasonably achievable to obtain optimal di agnostic quality images. DICOM format image data is available electronically for review and comparis on. FINDINGS: LOWER LUNGS: The visualized lower lungs are clear. LIVER: Cirrhotic liver without intrahepatic ductal dilatation or gross focal mass. Redemonstration o f multiple small gallstones in the gallbladder neck. SPLEEN: Uniform density splenomegaly. PANCREAS: Unremarkable without mass or calcification. KIDNEYS: Kidneys demonstrate symmetrical enhancement and are symmetrical in size without evidence fo r radiopaque renal calculi or hydronephrosis. ADRENAL GLANDS: Unremarkable. AORTA: Alyson-aneurysmal. BOWEL/MESENTERY: Large gastroesophageal varices. There is a metallic foreign body noted in the mid t ransverse colon. No associated colonic wall thickening or pneumatosis. There is diffuse mesenteric st randing but no significant ascites. Particularly, there is slightly disproportionate stranding involv ing the fourth portion duodenum. Bowel otherwise appear unremarkable without evidence for obstruction . No drainable fluid collections or free air. ABDOMINAL WALL: Diastasis recti. RETROPERITONEUM: Small subcentimeter retroperitoneal nodes most notably in the upper abdomen. BLADDER: Contours are smooth. REPRODUCTIVE: No abnormal masses or calcifications seen. BONY STRUCTURES: Unremarkable. CONCLUSION: 1. There is a very small ingested metallic foreign body in the mid transverse colon without evidence for colitis or perforation at this time. This does not have the typical appearance of a barbecue flavio stle although this cannot be entirely excluded. 2. Cirrhotic liver with evidence for portal hypertension and prominent gastroesophageal varices. The re is no ascites although there is diffuse mesenteric edema. This is particularly prominent near the fourth portion of the duodenum. Suspect this is dependent mesenteric edema rather than duodenitis. 3. Additional ancillary findings, as above. Electronically signed by: Ernie Dyer MD 01/15/2018 9:35 AM EST
[2018-01-15 09:45] LABS: Bilirubin,Urine Negative (Negative); Clarity,Urine Clear (Clear); Color,Urine Yellow (Yellw/Straw); Glucose,Urine (UA) Negative (Negative); Leukocyte Esterase,Urine Negative (Negative); Nitrite,Urine Negative (Negative); Specific Gravity,Urine 1.008 (1.002-1.035)
[2018-01-15] MEDS ORDERED: Bisacodyl 10 MG Supp RECTAL PRN (11:12)
--- NOTE | 2018-01-15 11:41 | P.HPFP ---
History of Present Illness Primary Care Physician: [facility] <Florian Ritchie - 01/16/18 22:40> [facility] <Mele Recinos - 01/15/18 11:40> Chief Complaint: abdominal pain and vomiting <Mele Recinos - 01/15/18 15:13 > History of Present Illness: Patient is a 52-year-old male with past medical history of alcoholism, cirrhosis and esophageal variceal GI bleed presenting to the ED with complaint of umbilical abdominal pain, nausea, and vomiting for the past 2 days. Patient reports that he moved from [place] in July and has been following with a PCP in [facility]. He is currently on treatment for his alcoholism (possibly Naltrexone, pt not sure of name) however he has continued to drink (2 beers every other day). The dosage of medication to treat his alcoholism was recently increased. Patient reports low p.o. intake for the past 2 days. He also reports that 2 days ago he had 2 teeth extractions and was started on antibiotic but his malaise had began prior to this procedure. Abdominal pain is located around umbilicus, cramping sensation , no radiation and was rating 10 out of 10 this morning, currently is a 5/10. Patient endorses vomiting about 10 times since yesterday with some blood in the vomitus which he attributes to his tooth extraction as it is not completely healed. He denies any diarrhea, fever, chest pain or shortness of breath. Endorses chills and dizziness. Past medical history: Alcoholism x 30 years with average drink of 12 pack beer per day. Upper GI bleed x2 due to esophageal variceal bleed in 2014 and 2017 status post ablation (most recent in 04/2017). History of removal of ascites fluid x6 times Cirrhosis Diabetes Depression Anxiety Hypertension Past surgical history: Ablation of esophageal varices Colonoscopy 04/2017, normal, polyps with recommendation of colonoscopy every 5 years, per pt. Social history: Patient moved here from [facility] in July and has been obtaining care at [facility] for his alcoholism Patient reports that he currently lives at [address] from the homeless [facility] In half-way for DUI from 04/30/17 to 07/28/17 Denies any opiate use, IV drug use Endorses alcohol and marijuana Family history: Diabetes- mother Father of colon cancer at age 65 <eMle Recinos - 01/15/18 18:52> - Diagnosis (1) Abdominal pain (2) Esophageal varices in cirrhosis (3) Hypertension (4) Alcohol abuse (5) Depression with anxiety (6) Nutrition, metabolism, and development symptoms (7) Diabetes <Florian Ritchie - 01/16/18 22:40> (1) Abdominal pain (2) Esophageal varices in cirrhosis (3) Hypertension (4) Alcohol abuse (5) Depression with anxiety (6) Nutrition, metabolism, and development symptoms <IfrahMele Ni 01/15/18 18:31> Review of Systems All other systems reviewed negative except as stated in HPI <Mele Recinos 01/15/18 17:48> PMFSH - History History 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, [employer]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 <IfrahMele phillip 01/15/18 11: 40> - Medical History Medical History: Medical History (Last Reviewed 01/15/18 @ 07:20 by Dimitri Hamilton MD) Depression Diabetes ETOH abuse Esophageal varices GI bleed HTN (hypertension) <Florian Ritchie - 01/16/18 22:40> Medical History (Last Reviewed 01/15/18 @ 07:20 by Dimitri Hamilton MD) Depression Diabetes ETOH abuse Esophageal varices GI bleed HTN (hypertension) <Mele Recinos 01/15/18 11:40> - Family History Family History: Family History (Last Reviewed 01/15/18 @ 07:20 by Dimitri Hamilton MD) Other Family history of cancer Family history of colon cancer <Florian Ritchie - 01/16/18 22:40> Family History (Last Reviewed 01/15/18 @ 07:20 by Dimitri Hamilton MD) Other Family history of cancer Family history of colon cancer <Mele Recinos 01/15/18 11:40> - Tobacco History Second Hand Smoke Exposure: Yes <Mele Recinos 01/15/18 11:40> Tobacco Use In Past 30 Days: Yes <Mele Recinos 01/15/18 11:40> Smoking Status: Current every day smoker <Mele Recinos 01/15/18 11:40> Tobacco Type: Cigarettes <Mele Recinos - 01/15/18 11:40> - Alcohol History How Often Do You Have a Drink Containing Alcohol: 2 to 3 times a week <Mele Recinos - 01/15/18 11:40> - Substance Use History Substance History: Active Abuse <Mele Recinos - 01/15/18 11:40> - Substance Use Type Marijuana Status: Active <Mele Recinos - 01/15/18 11:40> Route Used: Inhalation <Mele Recinos - 01/15/18 11:40> Reason for Use: Calm Down <Mele Recinos - 01/15/18 11:40> - Travel History Recent Travel in the [facility] Within the Last 8 Weeks: No <Mele Recinos - 11:40> Recent Travel Out of the Country Within the Last 8 Weeks: No <Mele Recinos - 01/15/18 11:40> - Immunization History Tetanus Immunization: >5 Years <Mele Recinos - 01/15/18 11:40> Medications and Allergies Allergies Allergy/AdvReac Type Severity Reaction Status Date / Time morphine Allergy Severe Shortness Verified 11/13/17 13:22 of Breath buspirone Allergy Intermediate Numbness Verified 11/13/17 13:22 <Florian Ritchie - 01/16/18 22:40> Home Medications Medication Instructions Recorded Confirmed Type amlodipine 5 mg PO DAILY 11/13/17 01/15/18 History aspirin 81 mg PO DAILY 11/13/17 01/15/18 History atenolol 50 mg PO DAILY 11/13/17 01/15/18 History bumetanide 0.5 mg PO DAILY 11/13/17 01/15/18 History divalproex [Depakote] 500 mg PO DAILY 11/13/17 01/15/18 History donepezil 5 mg PO DAILY 11/13/17 01/15/18 History insulin NPH and regular human 1 sliding scale dose SUB-Q UD 11/13/17 01/15/18 History [Novolin 70/30 U-100 Insulin] lanthanum 500 mg PO DAILY 11/13/17 01/15/18 History lisinopril 40 mg PO DAILY 11/13/17 01/15/18 History lorazepam [Ativan] 0.5 mg PO BID 11/13/17 01/15/18 History mesalamine [Lialda] 1.2 g PO BID 11/13/17 01/15/18 History simvastatin 20 mg PO QPM 11/13/17 01/15/18 History tramadol 50 mg PO Q6H PRN 11/13/17 01/15/18 History vit B,X-YN-xknb-selen-vit D3-E 1 tab PO DAILY 11/13/17 01/15/18 History [RenaPlex-D] <Florian Ritchie L - 01/16/18 22:40> Active Medications: Active Medications Al Hydroxide/Mg Hydroxide (Milk Of Arabella Cobos) 30 ml PO Q12H PRN PRN Reason: Mild Constipation Amlodipine Besylate (Norvasc) 5 mg PO DAILY [facility] Last Admin: 01/15/18 12:24 Dose: 5 mg Atenolol (Tenormin) 50 mg PO DAILY [facility] Last Admin: 01/15/18 12:24 Dose: 50 mg Benzonatate (Tessalon Perles) 200 mg PO Q8H [facility] Last Admin: 01/16/18 22:35 Dose: 200 mg Bisacodyl (Dulcolax Supp) 10 mg RECTAL DAILY PRN PRN Reason: SEVERE CONSITIPATION Dextrose (D50w Vial) 50 ml IV.PUSH UNSCH PRN PRN Reason: PER HYPOGLYCEMIA PROTOCOL Divalproex Sodium (Depakote Dr) 500 mg PO DAILY [facility] Last Admin: 01/15/18 15:05 Dose: 500 mg Flumazenil (Romazecon Inj) 0.2 mg IV.PUSH Q1M PRN PRN Reason: OVERSEDATION Glucagon (Glucagon Inj) 1 mg OTHER PRN PRN PRN Reason: for Hypoglycemia Protocol Haloperidol Lactate (Haldol Inj) 1 mg IV.PUSH Q15M PRN PRN Reason: for severe agitation Hydromorphone HCl (Dilaudid) 1 mg PO Q6H PRN PRN Reason: ABDOMINAL PAIN Last Admin: 01/16/18 22:33 Dose: 1 mg Sodium Chloride (Ns Inj) 1,000 mls @ 100 mls/hr IV.CONT .Q10H [facility] Last Admin: 01/16/18 07:30 Dose: Not Given Ciprofloxacin/Dextrose (Cipro 200 Mg/100 Ml Inj) 200 mg in 100 mls @ 100 mls/ hr IV.SIG Q12H [facility] Last Infusion: 01/16/18 01:55 Dose: Infused Octreotide Acetate 500 mcg/ (Sodium Chloride) 500.5 mls @ 25.02 mls/hr IV.CONT .Q20H1M [facility] Stop: 01/20/18 13:59 Last Infusion: 01/16/18 22:25 Dose: 0 mcg/hr, 0 mls/hr Dextrose/Sodium Chloride (D5w/Normal Saline Inj) 1,000 mls @ 80 mls/hr IV.CONT .[id number] [facility] Last Infusion: 01/16/18 16:20 Dose: 80 mls/hr Lactated Ringer's (Lr 1000 Ml Inj) 1,000 mls @ 30 mls/hr IV.CONT .Q24H ONE Stop: 01/17/18 09:29 Sodium Chloride (Ns Inj) 500 mls @ 30 mls/hr IV.CONT .[id number] ONE Stop: 01/17/18 02:09 Insulin Aspart (Novolog Insulin Correctional Sugar Inj) 0 unit SQ ACHS AND 3AM [facility]; Protocol Last Admin: 01/16/18 08:45 Dose: Not Given Lactulose (Lactulose Liq) 30 ml PO DAILY [facility] Lisinopril (Prinivil) 40 mg PO DAILY [facility] Last Admin: 01/15/18 12:27 Dose: 40 mg Lorazepam (Ativan) 1 mg PO Q4H PRN PRN Reason: for CIWA 8-10 Lorazepam (Ativan) 2 mg PO Q2H PRN PRN Reason: for CIWA 11-14 Lorazepam (Ativan Inj) 2 mg IV.PUSH Q2H PRN PRN Reason: for CIWA 11-14 Lorazepam (Ativan Inj) 2 mg IV.PUSH Q15M PRN PRN Reason: for CIWA > 20 Lorazepam (Ativan Inj) 1 mg IV.PUSH Q4H PRN PRN Reason: for CIWA 8-10 Lorazepam (Ativan Inj) 2 mg IV.PUSH Q1H PRN PRN Reason: for CIWA 15-20 Miscellaneous (Pill Splitter) 1 each OTHER UNSCH [facility] Miscellaneous Information (Misc Nursing Information) 0 each OTHER UNSCH PRN PRN Reason: SEE LABEL COMMENTS Stop: 01/17/18 14:19 Ondansetron HCl (Zofran Inj) 4 mg IV.PUSH Q6H PRN PRN Reason: nausea and vomiting Last Admin: 01/16/18 03:25 Dose: 4 mg Pantoprazole Sodium (Protonix Inj) 40 mg IV.PUSH BID [facility] Last Admin: 01/16/18 22:32 Dose: 40 mg Pravastatin Sodium (Pravachol) 40 mg PO QPM [facility] Last Admin: 01/16/18 18:57 Dose: 40 mg Senna/Docusate Sodium (Joanne-Colace) 1 tab PO BID [facility] Last Admin: 01/16/18 22:32 Dose: 1 tab Sennosides (Senokot) 17.2 mg PO Q12H PRN PRN Reason: Moderate Constipation Sodium Chloride (Ns Flush) 2 ml IV.FLUSH PRN PRN PRN Reason: FLUSH AFTER USING IV ACCESS Last Admin: 01/15/18 22:13 Dose: 2 ml <Florian Ritchie - 01/16/18 22:40> Active Medications Al Hydroxide/Mg Hydroxide (Milk Of Magnesia Liq) 30 ml PO Q12H PRN PRN Reason: Mild Constipation Amlodipine Besylate (Norvasc) 5 mg PO DAILY [facility] Atenolol (Tenormin) 50 mg PO DAILY [facility] Bisacodyl (Dulcolax Supp) 10 mg RECTAL DAILY PRN PRN Reason: SEVERE CONSITIPATION Divalproex Sodium (Depakote Dr) 500 mg PO DAILY [facility] Flumazenil (Romazecon Inj) 0.2 mg IV.PUSH Q1M PRN PRN Reason: OVERSEDATION Haloperidol Lactate (Haldol Inj) 1 mg IV.PUSH Q15M PRN PRN Reason: for severe agitation Sodium Chloride (Ns Inj) 1,000 mls @ 100 mls/hr IV.CONT .Q10H [facility] Ciprofloxacin/Dextrose (Cipro 200 Mg/100 Ml Inj) 200 mg in 100 mls @ 100 mls/ hr IV.SIG Q12H [facility] Lactulose (Lactulose Liq) 30 ml PO DAILY PRN PRN Reason: SEVERE CONSITIPATION Lorazepam (Ativan) 1 mg PO Q4H PRN PRN Reason: for CIWA 8-10 Lorazepam (Ativan) 2 mg PO Q2H PRN PRN Reason: for CIWA 11-14 Lorazepam (Ativan Inj) 2 mg IV.PUSH Q2H PRN PRN Reason: for CIWA 11-14 Lorazepam (Ativan Inj) 2 mg IV.PUSH Q15M PRN PRN Reason: for CIWA > 20 Lorazepam (Ativan Inj) 1 mg IV.PUSH Q4H PRN PRN Reason: for CIWA 8-10 Lorazepam (Ativan Inj) 2 mg IV.PUSH Q1H PRN PRN Reason: for CIWA 15-20 Non-Formulary Medication (Simvastatin [Simvastatin]) 20 mg PO QPM [facility] Non-Formulary Medication (Lisinopril [Lisinopril]) 40 mg PO DAILY [facility] Ondansetron HCl (Zofran Inj) 4 mg IV.PUSH Q6H PRN PRN Reason: nausea and vomiting Pantoprazole Sodium (Protonix) 40 mg PO BID [facility] Pantoprazole Sodium (Protonix Inj) 40 mg IV.PUSH BID [facility] Senna/Docusate Sodium (Joanne-Colace) 1 tab PO BID [facility] Sennosides (Senokot) 17.2 mg PO Q12H PRN PRN Reason: Moderate Constipation Sodium Chloride (Ns Flush) 2 ml IV.FLUSH PRN PRN PRN Reason: FLUSH AFTER USING IV ACCESS <Mele Recinos - 01/15/18 11:40> Exam Vital signs: Vital Signs 01/15/18 22:40 01/15/18 23:27 01/16/18 03:43 Temperature 99.1 F 98.3 F Pulse Rate 71 61 Respiratory Rate 16 17 17 Blood Pressure 114/81 145/80 H Pulse Oximetry 95 95 01/16/18 14:14 01/16/18 14:30 01/16/18 14:45 Temperature 99.2 F Pulse Rate 90 88 87 Respiratory Rate 23 18 14 Blood Pressure 171/98 H 160/93 H 149/87 H Pulse Oximetry 100 94 L 96 01/16/18 15:00 01/16/18 15:15 01/16/18 15:30 Temperature Pulse Rate 85 86 85 Respiratory Rate 21 18 13 Blood Pressure 149/91 H 153/94 H 164/99 H Pulse Oximetry 97 97 97 01/16/18 15:45 11/08/18 16:00 01/16/18 16:15 Temperature 98.9 F Pulse Rate 85 85 83 Respiratory Rate 9 L 13 14 Blood Pressure 168/93 H 157/94 H 167/94 H Pulse Oximetry 97 98 99 01/16/18 17:00 01/16/18 20:00 Temperature 98.9 F 98.0 F Pulse Rate 73 80 Respiratory Rate 18 20 Blood Pressure 158/87 H 158/89 H Pulse Oximetry 96 100 Intake & Output 01/16/18 01/16/18 01/17/18 06:59 18:59 06:59 Intake Total 100 / 100 Balance 100 / 100 Weight 99.79 kg Intake: IV 100 / 100 Cipro 200 MG/100 ML Inj 200 mg 100 / 100 In 100 ml @ 100 mls/hr IV.SIG Q12H [facility] Rx#:[id number] Other: Date of Last Bowel Movement 01/14/18 <ChauFlorian Cal - 01/16/18 22:40> Vital Signs 01/15/18 06:59 Temperature 89.7 F L Respiratory Rate 18 Blood Pressure 172/102 H Pulse Oximetry 96 Intake & Output 01/14/18 01/15/18 01/15/18 18:59 06:59 18:59 Weight 99.79 kg <MataPhoenix annly D - 01/15/18 11:40> - Constitutional no acute distress <MatareubenMele phillip D - 01/15/18 17:48> - Routine HEENT Exam Head: Present: normocephalic <Mele Recinos D - 01/15/18 17:48> Eye: Present: EOMI, PERRL <Mele Recinos D - 01/15/18 17:48> ENT: Present: mucous membranes dry, oropharynx clear. Absent: septal deviation <Mele Recinos D - 01/15/18 18:22> - Routine Neck Exam Present: supple, full ROM. Absent: lymphadenopathy <Mele Recinos D - 18:22> - Routine Chest/Breast/Axilla Exam Chest wall: Absent: tenderness <Mele Recinos D - 01/15/18 18:22> - Routine Respiratory Exam Present: CTA bilaterally. Absent: accessory muscle use <Mele Recinos D - 09/25 18:22> - Routine Cardiovascular Exam Present: RRR, S1, S2. Absent: murmur, gallop, rubs <Mele Recinos - 18:22> - Routine Abdominal Exam Present: soft, normoactive bowel sounds, tenderness (tenderness to palpation in umbilical region). Absent: rebound, guarding, organomegaly <Mele Recinos - 01/15/18 18:22> Comments: Positive fluid shift Negative Kirby's sign <Mele Recinos - 01/15/18 18:52> - Routine Extremities Exam Present: full ROM, pulses intact. Absent: cyanosis, edema, calf tenderness < Mele Recinos - 01/15/18 18:22> - Routine Skin Exam Present: intact <Mele Recinos - 01/15/18 18:22> - Routine Neurological Exam Present: oriented X3, CN II-XII intact, plantar reflex, normal speech. Absent: sensory deficit, pronator drift, altered mental status <Mele Recinos - 09/25 18:22> Results - Labs Result diagrams: 01/16/18 15:35 01/16/18 03:06 <Florian Ritchie L - 01/16/18 22:40> Abnormal lab results 01/16/18 01/16/18 01/16/18 Range/Units 03:06 03:06 03:07 RBC 4.48 L (4.50-5.90) mil/mm3 Hgb 11.5 L (13.0-17.0) gm/dL Hct 36.0 L (39.0-51.0) % MCV (80.0-100.0) fL MCH 25.6 L (27.0-34.0) pg MCHC 31.8 L (32.0-36.0) % RDW 17.4 H (11.6-17.2) % Plt Count 72 L (150-450) th/mm3 Neut % (Auto) (16.0-70.0) % Lymph % (Auto) (9.0-44.0) % Rabun % (Auto) 15.4 H (0.0-8.0) % Lymph # (Auto) 0.8 L (1.0-4.8) th/mm3 Platelet Estimate Low L (Normal) Ovalocytes 1+ H (None) BUN 5 L (7-18) mg/dL POC Glucose 250 H (68-110) mg/dl Random Glucose 220 H (74-106) mg/dL Calcium 7.9 L (8.5-10.1) mg/dL Alkaline Phosphatase 142 H (45-117) U/L Albumin 3.1 L (3.4-5.0) g/dL 01/16/18 01/16/18 01/16/18 Range/Units 08:37 14:15 15:35 RBC 4.49 L (4.50-5.90) mil/mm3 Hgb 11.7 L (13.0-17.0) gm/dL Hct 35.9 L (39.0-51.0) % MCV 79.8 L (80.0-100.0) fL MCH 26.0 L (27.0-34.0) pg MCHC (32.0-36.0) % RDW 17.4 H (11.6-17.2) % Plt Count 84 L (150-450) th/mm3 Neut % (Auto) 77.5 H (16.0-70.0) % Lymph % (Auto) 8.3 L (9.0-44.0) % Rabun % (Auto) 12.3 H (0.0-8.0) % Lymph # (Auto) 0.6 L (1.0-4.8) th/mm3 Platelet Estimate (Normal) Ovalocytes (None) BUN (7-18) mg/dL POC Glucose 135 H 135 H (68-110) mg/dl Random Glucose (74-106) mg/dL Calcium (8.5-10.1) mg/dL Alkaline Phosphatase (45-117) U/L Albumin (3.4-5.0) g/dL Short CBC 01/16/18 01/16/18 Range/Units 03:06 15:35 WBC 4.1 6.7 D (4.0-11.0) th/mm3 Hgb 11.5 L 11.7 L (13.0-17.0) gm/dL Hct 36.0 L 35.9 L (39.0-51.0) % Plt Count 72 L 84 L (150-450) th/mm3 BMP 01/16/18 03:06 Sodium 141 Potassium 4.2 Chloride 104 Carbon Dioxide 26.8 BUN 5 L Creatinine 0.87 Calcium 7.9 L Liver Function 01/16/18 Range/Units 03:06 Total Bilirubin 0.9 (0.2-1.0) mg/dL AST 30 (15-37) U/L ALT 23 (12-78) U/L Alkaline Phosphatase 142 H (45-117) U/L Albumin 3.1 L (3.4-5.0) g/dL <Young,Florian L - 01/16/18 22:40> Abnormal lab results 01/15/18 01/15/18 Range/Units 07:47 07:47 WBC 3.9 L (4.0-11.0) th/mm3 Hgb 11.9 L (13.0-17.0) gm/dL Hct 37.5 L (39.0-51.0) % MCH 25.7 L (27.0-34.0) pg MCHC 31.9 L (32.0-36.0) % Plt Count 74 L (150-450) th/mm3 Rabun % (Auto) 14.6 H (0.0-8.0) % Lymph # (Auto) 0.5 L (1.0-4.8) th/mm3 BUN 5 L (7-18) mg/dL Random Glucose 152 H (74-106) mg/dL Alkaline Phosphatase 149 H (45-117) U/L Albumin 3.3 L (3.4-5.0) g/dL Short CBC 01/15/18 Range/Units 07:47 WBC 3.9 L (4.0-11.0) th/mm3 Hgb 11.9 L (13.0-17.0) gm/dL Hct 37.5 L (39.0-51.0) % Plt Count 74 L (150-450) th/mm3 BMP 01/15/18 07:47 Sodium 143 Potassium 4.1 Chloride 104 Carbon Dioxide 31.4 BUN 5 L Creatinine 0.70 Calcium 8.6 Liver Function 01/15/18 Range/Units 07:47 Total Bilirubin 0.8 (0.2-1.0) mg/dL AST 33 (15-37) U/L ALT 26 (12-78) U/L Alkaline Phosphatase 149 H (45-117) U/L Albumin 3.3 L (3.4-5.0) g/dL Urine 01/15/18 Range/Units 07:30 Urine Color Yellow (Yellw/Straw) Urine Clarity Clear (Clear) Urine pH 8.0 (5.0-8.5) Ur Specific [place] 1.008 (1.002-1.035) Urine Protein Negative (Neg-Trace) mg/dL Urine Glucose (UA) Negative (Negative) mg/dL <Mele Recinos - 01/15/18 11:40> - Imaging Impressions Abdomen X-Ray 01/16/18 00:00 CONCLUSION: 1. 4 mm linear metallic density in the right mid quadrant possibly representing a small surgical clip. 2. Otherwise, unremarkable exam. Chest CT 01/16/18 00:00 CONCLUSION: 1. Mild infiltrates are noted in the posterior lower lung hussein bilaterally suggestive of atelectasis. Otherwise, lung hussein are grossly clear. 2. Nonspecific 1.5 cm lymph node in the anterior superior mediastinum. 3. Nonspecific thickening involving the distal esophagus. If clinically indicated, a barium swallow could be performed on a nonemergent outpatient basis. Soft Tissue Neck CT 01/16/18 00:00 CONCLUSION: 1. Grossly unremarkable CT soft tissue neck for patient's age. 2. Nonspecific 1.5 cm lymph node in the anterior superior mediastinum. <Florian Ritchie - 01/16/18 22:40> Impressions Abdomen/Pelvis CT 01/15/18 07:18 CONCLUSION: 1. There is a very small ingested metallic foreign body in the mid transverse colon without evidence for colitis or perforation at this time. This does not have the typical appearance of a barbecue bristle although this cannot be entirely excluded. 2. Cirrhotic liver with evidence for portal hypertension and prominent gastroesophageal varices. There is no ascites although there is diffuse mesenteric edema. This is particularly prominent near the fourth portion of the duodenum. Suspect this is dependent mesenteric edema rather than duodenitis. 3. Additional ancillary findings, as above. <Mele Recinos - 01/15/18 11:40> Caprini VTE Risk Assessment Caprini VTE Risk Assessment: Moderate/High Risk (score >= 2) <Mele Recinos - 01/15/18 18:52> VTE Pharmacological Exception Reason: High risk for bleeding <Mele Recinos - 01/15/18 18:52> Caprini Risk Assessment Model: Point Value = 1 Point Value = 2 Point Value = 3 Point Value = 5 Age 41-60 Minor surgery BMI > 25 kg/m2 Swollen legs Varicose veins or History of unexplained or recurrent spontaneous Oral contraceptives or hormone replacement Sepsis (< 1 month) Serious lung disease, including pneumonia (< 1 month) Abnormal pulmonary function Acute myocardial infarction Congestive heart failure (< 1 month) History of inflammatory bowel disease Medical patient at bed rest Age 61-74 Arthroscopic surgery Major open surgery (> 45 min) Laparoscopic surgery (> 45 min) Malignancy Confined to bed (> 72 hours) Immobilizing plaster cast Central venous access Age >= 75 History of VTE Family history of VTE Factor V Leiden Prothrombin [id number] Lupus anticoagulant Anticardiolipin antibodies Elevated serum homocysteine Heparin-induced thrombocytopenia Other congenital or acquired thrombophilia Stroke (< 1 month) Elective arthroplasty Hip, pelvis, or leg fracture Acute spinal cord injury (< 1 month) <Florian Ritchie - 01/16/18 22:40> Point Value = 1 Point Value = 2 Point Value = 3 Point Value = 5 Age 41-60 Minor surgery BMI > 25 kg/m2 Swollen legs Varicose veins or History of unexplained or recurrent spontaneous Oral contraceptives or hormone replacement Sepsis (< 1 month) Serious lung disease, including pneumonia (< 1 month) Abnormal pulmonary function Acute myocardial infarction Congestive heart failure (< 1 month) History of inflammatory bowel disease Medical patient at bed rest Age 61-74 Arthroscopic surgery Major open surgery (> 45 min) Laparoscopic surgery (> 45 min) Malignancy Confined to bed (> 72 hours) Immobilizing plaster cast Central venous access Age >= 75 History of VTE Family history of VTE Factor V Leiden Prothrombin [id number] Lupus anticoagulant Anticardiolipin antibodies Elevated serum homocysteine Heparin-induced thrombocytopenia Other congenital or acquired thrombophilia Stroke (< 1 month) Elective arthroplasty Hip, pelvis, or leg fracture Acute spinal cord injury (< 1 month) <Mele Recinos - 01/15/18 11:40> Prophylaxis Regimen: Total Risk Factor Score Risk Level Prophylaxis Regimen 0-1 Low Early ambulation 2 Moderate Order ONE of the following: *Sequential Compression Device (SCD) *Heparin 5000 units SQ BID 3-4 Higher Order ONE of the following medications: *Heparin 5000 units SQ TID *Enoxaparin/Lovenox 40 mg SQ daily (WT < 150 kg, CrCl > 30 mL/min) *Enoxaparin/Lovenox 30 mg SQ daily (WT < 150 kg, CrCl > 10-29 mL/min) *Enoxaparin/Lovenox 30 mg SQ BID (WT < 150 kg, CrCl > 30 mL/min) AND/OR *Sequential Compression Device (SCD) 5 or more Highest Order ONE of the following medications: *Heparin 5000 units SQ TID (Preferred with Epidurals) *Enoxaparin/Lovenox 40 mg SQ daily (WT < 150 kg, CrCl > 30 mL/min) *Enoxaparin/Lovenox 30 mg SQ daily (WT < 150 kg, CrCl > 10-29 mL/min) *Enoxaparin/Lovenox 30 mg SQ BID (WT < 150 kg, CrCl > 30 mL/min) AND *Sequential Compression Device (SCD) <Florian Ritchie - 01/16/18 22:40> Total Risk Factor Score Risk Level Prophylaxis Regimen 0-1 Low Early ambulation 2 Moderate Order ONE of the following: *Sequential Compression Device (SCD) *Heparin 5000 units SQ BID 3-4 Higher Order ONE of the following medications: *Heparin 5000 units SQ TID *Enoxaparin/Lovenox 40 mg SQ daily (WT < 150 kg, CrCl > 30 mL/min) *Enoxaparin/Lovenox 30 mg SQ daily (WT < 150 kg, CrCl > 10-29 mL/min) *Enoxaparin/Lovenox 30 mg SQ BID (WT < 150 kg, CrCl > 30 mL/min) AND/OR *Sequential Compression Device (SCD) 5 or more Highest Order ONE of the following medications: *Heparin 5000 units SQ TID (Preferred with Epidurals) *Enoxaparin/Lovenox 40 mg SQ daily (WT < 150 kg, CrCl > 30 mL/min) *Enoxaparin/Lovenox 30 mg SQ daily (WT < 150 kg, CrCl > 10-29 mL/min) *Enoxaparin/Lovenox 30 mg SQ BID (WT < 150 kg, CrCl > 30 mL/min) AND *Sequential Compression Device (SCD) <Mele Recinos - 01/15/18 11:40> Assessment and Plan - Assessment (1) Abdominal pain Code(s): R10.9 - Unspecified abdominal pain Status: Acute (2) Esophageal varices in cirrhosis Code(s): K74.60 - Unspecified cirrhosis of liver; I85.10 - Secondary esophageal varices without bleeding Status: Chronic (3) Hypertension Code(s): I10 - Essential (primary) hypertension Status: Chronic (4) Alcohol abuse Code(s): F10.10 - Alcohol abuse, uncomplicated Status: Chronic (5) Depression with anxiety Code(s): F41.8 - Other specified anxiety disorders Status: Chronic (6) Nutrition, metabolism, and development symptoms Code(s): R63.8 - Other symptoms and signs concerning food and fluid intake Status: Acute (7) Diabetes Code(s): E11.9 - Type 2 diabetes mellitus without complications Status: Chronic <Florian Ritchie - 01/16/18 22:40> (1) Abdominal pain Code(s): R10.9 - Unspecified abdominal pain Status: Acute Plan: Patient is a 52-year-old male with past medical history of alcoholism, cirrhosis and esophageal variceal GI bleed presenting to the ED with complaint of umbilical abdominal pain, nausea, and vomiting for the past 2 days. Patient reports tooth extraction 2 days ago and malaise (abdominal pain, vomiting x10 times with questionable blood in vomit which he attributes to tooth extraction however due to patient's history of upper GI bleed due to esophageal varices will consult GI for further evaluation). On admission patient was slightly hypertensive however he was afebrile and no leukocytosis appreciated on CBC. CT abdomen: Showing edema of mesenteric, small metallic object in the transverse colon (which may have been part of patient's dental filling) and cirrhosis with portal hypertension and significant esophageal varices. Zofran for nausea Pain controlled with hydromorphone PRN which patient has had in the past without any adverse reactions Protonix IV twice daily Cipro for prophylaxis IV fluids GI consulted for further recommendations Protonix, prophylactic antibiotic and octreotide drip EGD procedure tomorrow Follow-up: Serial H&H Abdominal ultrasound for evaluation for ascites Ammonia (2) Esophageal varices in cirrhosis Code(s): K74.60 - Unspecified cirrhosis of liver; I85.10 - Secondary esophageal varices without bleeding Status: Chronic Plan: See plan above for abdominal pain (3) Hypertension Code(s): I10 - Essential (primary) hypertension Status: Chronic Plan: Resume home medications Continue to monitor blood pressure. (4) Alcohol abuse Code(s): F10.10 - Alcohol abuse, uncomplicated Status: Chronic Plan: Patient with extensive alcohol abuse history for the past 30 years complicated by cirrhosis and esophageal variceal GI bleed. Currently receiving treatment for alcoholism at [facility] since July of this year. Reports he is taking a medication to help with his alcoholism however he has not been compliant and has been drinking at least 2 beers per day. Presented to the ED with severe abdominal pain, vomiting and nausea. CIWA protocol Continue to monitor vital signs (5) Depression with anxiety Code(s): F41.8 - Other specified anxiety disorders Status: Chronic Plan: Resume home medications (6) Nutrition, metabolism, and development symptoms Code(s): R63.8 - Other symptoms and signs concerning food and fluid intake Status: Acute Plan: Fluids: 100 mL/hour Electrolytes: Replete as needed Diet: Per GI rec DVT prophylaxis: SCDs <Mele Recinos - 01/15/18 18:31> - Attending Attestation The exam, history, and the medical decision-making described in the above note were completed with the assistance of the resident physician. I reviewed and agree with the findings presented. I attest that I had a [id number] encounter with the patient on the same day, and personally performed and documented my assessment and findings in the medical record. This patient is a 52 year old male with cirrhosis and history of variceal bleeding who reports with abdominal pain and hematemesis. Will admit for IV Protonix, Octreotide drip , SBP prophylaxis with antibiotics, abdominal ultrasound, H&H trends, and GI consult for possible EGD with variceal banding as needed. He is hemodynamically stable at the time of admission <Florian Ritchie - 01/16/18 22:40>
[2018-01-15] MEDS: Atenolol 50 MG Tablet PO SCH (12:24)
[2018-01-15] MEDS: amLODIPine 5 MG Tablet PO SCH (12:24)
[2018-01-15] MEDS: Ciprofloxacin 200 MG/100 ML 200 MG/100 ML PIGGYBACK IV.SIG SCH (12:24)
[2018-01-15] MEDS: Pantoprazole Inj 40 MG Vial IV.PUSH SCH ×2 (12:27→22:10)
[2018-01-15] MEDS: Lisinopril 20 MG Tablet PO SCH (12:27)
[2018-01-15] MEDS: Sod Chloride 0.9% Inj 1,000 ML IV.CONT SCH (12:32)
[2018-01-15 14:03] LABS: Hematocrit 35.6 % (39.0-51.0); Hemoglobin 11.4 gm/dL (13.0-17.0)
--- NOTE | 2018-01-15 14:05 | US ---
EXAM DATE: 01/15/2018 1:28 PM EST AGE/SEX: 52 years / Male INDICATIONS: Ascites. CLINICAL DATA: This is the patient's initial encounter. Patient reports that signs and symptoms have been present for 1 day and indicates a pain score of 0/10. MEDICAL/SURGICAL HISTORY: Hypertension. ETOH abuse. GI Bleed. Esophageal varices. Diabetes. Dep ression. . Esophageal banding. COMPARISON: [facility] [place], CT ABDOMEN & PELVIS W CONTRAST, 01/15/2018. . FINDINGS: Masses: None Fluid Collections: None Other: No significant ascites. CONCLUSION: 1. No significant ascites. Electronically signed by: Ernie Dyer MD 01/15/2018 2:04 PM EST
[2018-01-15] MEDS: Divalproex 500 MG DR Tablet PO SCH (15:05)
[2018-01-15] MEDS: Octreotide Inj 500 MCG in Sodium Chlor 0.9% Inj 500 ML IV.CONT SCH (15:06)
--- NOTE | 2018-01-15 17:10 | P.CONGI ---
History of Present Illness Consult date: 01/15/18 Consult reason: ? Hematemesis Chief complaint: Abdominal pain/mesenteric edema/vomitting History of Present Illness: This is a 52-year-old male with past medical history significant for cirrhosis secondary to EtOH abuse who has previously been seen by our service for upper GIB, does have noted esophageal varices however these showed no active bleeding and the bleeding was actually noted to be likely secondary to Yanci-Hutton tear. Patient presented to the emergency department today with complaints of nausea, vomiting and abdominal pain. Patient states that he has had persistent emesis for the past 2 days. He reports that he has been noticing some bright red blood in his emesis. He denies any coffee-ground emesis. Of note, patient had 2 teeth extracted 2 days ago and thinks that the bleeding is coming from his oral cavity. Upon examination there is no active bleeding from his previous teeth extraction sites. Patient also reports that the emesis began prior to the tooth extraction. Patient also complaining of abdominal pain, states that it is located around his umbilicus. States that pain is been constant for the past day and a half. Unable to describe the pain. He states that the pain is worse when taking naltrexone. Of note, patient was prescribed naltrexone to help him stop drinking alcohol. Despite the naltrexone, patient continues to drink alcohol, states that he had 2 beers yesterday. Patient also reports significant ibuprofen use up until less than a month ago when he was advised by his PCP to stop as this was not helping with his abdominal issues. Patient is unsure if he is taking pantoprazole at home, however it is listed on his home medication list. Patient reports frequent bowel movements, states approximately 2-3 a day. Of note, patient does report that he is taking lactulose. He denies any hematochezia or melena. 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 - Medical History Medical History: Medical History (Last Reviewed 01/15/18 @ 07:20 by Dimitri Hamilton MD) Depression Diabetes ETOH abuse Esophageal varices GI bleed HTN (hypertension) - Family History Family History: Family History (Last Reviewed 01/15/18 @ 07:20 by Dimitri Hamilton MD) Other Family history of cancer Family history of colon cancer - Tobacco History Second Hand Smoke Exposure: Yes Tobacco Use In Past 30 Days: Yes Smoking Status: Current every day smoker Tobacco Type: Cigarettes - Alcohol History How Often Do You Have a Drink Containing Alcohol: 2 to 3 times a week - Substance Use History Substance History: Active Abuse - Substance Use Type Marijuana Status: Active Route Used: Inhalation Reason for Use: Calm Down - Travel History Recent Travel in the [place] Within the Last 8 Weeks: No Recent Travel Out of the Country Within the Last 8 Weeks: No - Immunization History Tetanus Immunization: >5 Years <Gerri Saravia - Last Filed: 01/15/18 17:11> - Medical History Medical History: Medical History (Last Reviewed 01/15/18 @ 07:20 by Dimitri Hamilton MD) Depression Diabetes ETOH abuse Esophageal varices GI bleed HTN (hypertension) - Family History Family History: Family History (Last Reviewed 01/15/18 @ 07:20 by Dimitri Hamilton MD) Other Family history of cancer Family history of colon cancer <Ina May - Last Filed: 01/15/18 19:33> Medications and Allergies Active Medications: Active Medications Al Hydroxide/Mg Hydroxide (Milk Of Arabella Cobos) 30 ml PO Q12H PRN PRN Reason: Mild Constipation Amlodipine Besylate (Norvasc) 5 mg PO DAILY [facility] Last Admin: 01/15/18 12:24 Dose: 5 mg Atenolol (Tenormin) 50 mg PO DAILY [facility] Last Admin: 01/15/18 12:24 Dose: 50 mg Bisacodyl (Dulcolax Supp) 10 mg RECTAL DAILY PRN PRN Reason: SEVERE CONSITIPATION Divalproex Sodium (Depakote Dr) 500 mg PO DAILY [facility] Last Admin: 01/15/18 15:05 Dose: 500 mg Flumazenil (Romazecon Inj) 0.2 mg IV.PUSH Q1M PRN PRN Reason: OVERSEDATION Haloperidol Lactate (Haldol Inj) 1 mg IV.PUSH Q15M PRN PRN Reason: for severe agitation Sodium Chloride (Ns Inj) 1,000 mls @ 100 mls/hr IV.CONT .Q10H [facility] Last Admin: 01/15/18 12:32 Dose: 100 mls/hr Ciprofloxacin/Dextrose (Cipro 200 Mg/100 Ml Inj) 200 mg in 100 mls @ 100 mls/ hr IV.SIG Q12H [facility] Last Infusion: 01/15/18 13:27 Dose: Infused Octreotide Acetate 500 mcg/ (Sodium Chloride) 500.5 mls @ 25.02 mls/hr IV.CONT .Q20H1M [facility] Stop: 01/20/18 13:59 Last Admin: 01/15/18 15:06 Dose: 25 mcg/hr, 25.02 mls/hr Lactulose (Lactulose Liq) 30 ml PO DAILY PRN PRN Reason: SEVERE CONSITIPATION Lisinopril (Prinivil) 40 mg PO DAILY [facility] Last Admin: 01/15/18 12:27 Dose: 40 mg Lorazepam (Ativan) 1 mg PO Q4H PRN PRN Reason: for CIWA 8-10 Lorazepam (Ativan) 2 mg PO Q2H PRN PRN Reason: for CIWA 11-14 Lorazepam (Ativan Inj) 2 mg IV.PUSH Q2H PRN PRN Reason: for CIWA 11-14 Lorazepam (Ativan Inj) 2 mg IV.PUSH Q15M PRN PRN Reason: for CIWA > 20 Lorazepam (Ativan Inj) 1 mg IV.PUSH Q4H PRN PRN Reason: for CIWA 8-10 Lorazepam (Ativan Inj) 2 mg IV.PUSH Q1H PRN PRN Reason: for CIWA 15-20 Ondansetron HCl (Zofran Inj) 4 mg IV.PUSH Q6H PRN PRN Reason: nausea and vomiting Pantoprazole Sodium (Protonix Inj) 40 mg IV.PUSH BID [facility] Last Admin: 01/15/18 12:27 Dose: 40 mg Pravastatin Sodium (Pravachol) 40 mg PO QPM [facility] Senna/Docusate Sodium (Joanne-Colace) 1 tab PO BID [facility] Sennosides (Senokot) 17.2 mg PO Q12H PRN PRN Reason: Moderate Constipation Sodium Chloride (Ns Flush) 2 ml IV.FLUSH PRN PRN PRN Reason: FLUSH AFTER USING IV ACCESS <Gerri Saravia - Last Filed: 01/15/18 17:11> Active Medications: Active Medications Al Hydroxide/Mg Hydroxide (Milk Of Magnesia Liq) 30 ml PO Q12H PRN PRN Reason: Mild Constipation Amlodipine Besylate (Norvasc) 5 mg PO DAILY [facility] Last Admin: 01/15/18 12:24 Dose: 5 mg Atenolol (Tenormin) 50 mg PO DAILY [facility] Last Admin: 01/15/18 12:24 Dose: 50 mg Bisacodyl (Dulcolax Supp) 10 mg RECTAL DAILY PRN PRN Reason: SEVERE CONSITIPATION Divalproex Sodium (Depakote Dr) 500 mg PO DAILY [facility] Last Admin: 01/15/18 15:05 Dose: 500 mg Flumazenil (Romazecon Inj) 0.2 mg IV.PUSH Q1M PRN PRN Reason: OVERSEDATION Haloperidol Lactate (Haldol Inj) 1 mg IV.PUSH Q15M PRN PRN Reason: for severe agitation Hydromorphone HCl (Dilaudid) 1 mg PO Q6H PRN PRN Reason: ABDOMINAL PAIN Sodium Chloride (Ns Inj) 1,000 mls @ 100 mls/hr IV.CONT .Q10H [facility] Last Admin: 01/15/18 12:32 Dose: 100 mls/hr Ciprofloxacin/Dextrose (Cipro 200 Mg/100 Ml Inj) 200 mg in 100 mls @ 100 mls/ hr IV.SIG Q12H [facility] Last Infusion: 01/15/18 13:27 Dose: Infused Octreotide Acetate 500 mcg/ (Sodium Chloride) 500.5 mls @ 25.02 mls/hr IV.CONT .Q20H1M [facility] Stop: 01/20/18 13:59 Last Admin: 01/15/18 15:06 Dose: 25 mcg/hr, 25.02 mls/hr Lactulose (Lactulose Liq) 30 ml PO DAILY PRN PRN Reason: SEVERE CONSITIPATION Lisinopril (Prinivil) 40 mg PO DAILY [facility] Last Admin: 01/15/18 12:27 Dose: 40 mg Lorazepam (Ativan) 1 mg PO Q4H PRN PRN Reason: for CIWA 8-10 Lorazepam (Ativan) 2 mg PO Q2H PRN PRN Reason: for CIWA 11-14 Lorazepam (Ativan Inj) 2 mg IV.PUSH Q2H PRN PRN Reason: for CIWA 11-14 Lorazepam (Ativan Inj) 2 mg IV.PUSH Q15M PRN PRN Reason: for CIWA > 20 Lorazepam (Ativan Inj) 1 mg IV.PUSH Q4H PRN PRN Reason: for CIWA 8-10 Lorazepam (Ativan Inj) 2 mg IV.PUSH Q1H PRN PRN Reason: for CIWA 15-20 Miscellaneous (Pill Splitter) 1 each OTHER [facility] Ondansetron HCl (Zofran Inj) 4 mg IV.PUSH Q6H PRN PRN Reason: nausea and vomiting Pantoprazole Sodium (Protonix Inj) 40 mg IV.PUSH BID [facility] Last Admin: 01/15/18 12:27 Dose: 40 mg Pravastatin Sodium (Pravachol) 40 mg PO QPM [facility] Last Admin: 01/15/18 18:25 Dose: 40 mg Senna/Docusate Sodium (Joanne-Colace) 1 tab PO BID [facility] Sennosides (Senokot) 17.2 mg PO Q12H PRN PRN Reason: Moderate Constipation Sodium Chloride (Ns Flush) 2 ml IV.FLUSH PRN PRN PRN Reason: FLUSH AFTER USING IV ACCESS <Ina May - Last Filed: 01/15/18 19:33> Allergies Allergy/AdvReac Type Severity Reaction Status Date / Time morphine Allergy Severe Shortness Verified 11/13/17 13:22 of Breath buspirone Allergy Intermediate Numbness Verified 11/13/17 13:22 Home Medications Medication Instructions Recorded Confirmed Type amlodipine 5 mg PO DAILY 11/13/17 01/15/18 History aspirin 81 mg PO DAILY 11/13/17 01/15/18 History atenolol 50 mg PO DAILY 11/13/17 01/15/18 History bumetanide 0.5 mg PO DAILY 11/13/17 01/15/18 History divalproex [Depakote] 500 mg PO DAILY 11/13/17 01/15/18 History donepezil 5 mg PO DAILY 11/13/17 01/15/18 History insulin NPH and regular human 1 sliding scale dose SUB-Q UD 11/13/17 01/15/18 History [Novolin 70/30 U-100 Insulin] lanthanum 500 mg PO DAILY 11/13/17 01/15/18 History lisinopril 40 mg PO DAILY 11/13/17 01/15/18 History lorazepam [Ativan] 0.5 mg PO BID 11/13/17 01/15/18 History mesalamine [Lialda] 1.2 g PO BID 11/13/17 01/15/18 History simvastatin 20 mg PO QPM 11/13/17 01/15/18 History tramadol 50 mg PO Q6H PRN 11/13/17 01/15/18 History vit B,U-UC-kyxm-selen-vit D3-E 1 tab PO DAILY 11/13/17 01/15/18 History [RenaPlex-D] Exam Vital signs: Vital Signs 01/15/18 06:59 01/15/18 12:33 01/15/18 13:41 Temperature 89.7 F L Pulse Rate 90 71 Respiratory Rate 18 17 17 Blood Pressure 172/102 H 147/89 H 130/74 Pulse Oximetry 96 100 98 01/15/18 15:47 Temperature 98.9 F Pulse Rate 82 Respiratory Rate 16 Blood Pressure 163/96 H Pulse Oximetry 90 L Intake & Output 01/14/18 01/15/18 01/15/18 18:59 06:59 18:59 Intake Total 1100 / 1100 Balance 1100 / 1100 Weight 99.79 kg Intake: IV 1100 / 1100 Cipro 200 MG/100 ML Inj 200 mg 100 / 100 In 100 ml @ 100 mls/hr IV.SIG Q12H [facility] Rx#:[id number] - Constitutional no acute distress - Routine HEENT Exam Head: Present: normocephalic, atraumatic Eye: Present: conjunctival icterus - Routine Respiratory Exam Absent: accessory muscle use - Routine Abdominal Exam Present: soft, normoactive bowel sounds. Absent: tenderness, distended - Routine Skin Exam Present: dry, warm - Routine Neurological Exam Present: alert, oriented X3 <Gerri Saravia - Last Filed: 01/15/18 17:11> Vital signs: Vital Signs 01/15/18 06:59 01/15/18 12:33 01/15/18 13:41 Temperature 89.7 F L Pulse Rate 90 71 Respiratory Rate 18 17 17 Blood Pressure 172/102 H 147/89 H 130/74 Pulse Oximetry 96 100 98 01/15/18 15:47 Temperature 98.9 F Pulse Rate 82 Respiratory Rate 16 Blood Pressure 163/96 H Pulse Oximetry 90 L Intake & Output 01/15/18 01/15/18 01/16/18 06:59 18:59 06:59 Intake Total 1100 / 1100 Balance 1100 / 1100 Weight 99.79 kg 99.79 kg Intake: IV 1100 / 1100 Cipro 200 MG/100 ML Inj 200 mg 100 / 100 In 100 ml @ 100 mls/hr IV.SIG Q12H [facility] Rx#:[id number] Other: # Voids 1 Weight On Admission 99.79 kg <Ina May - Last Filed: 01/15/18 19:33> Results - Labs CBC & Chem 7: 01/15/18 13:39 01/15/18 07:47 Labs: Laboratory Results - last 24 hr 01/15/18 01/15/18 01/15/18 07:30 07:47 07:47 WBC 3.9 L RBC 4.66 Hgb 11.9 L Hct 37.5 L MCV 80.5 MCH 25.7 L MCHC 31.9 L RDW 17.1 Plt Count 74 L MPV 8.6 Prelim Diff (Auto) Slide review pending Neut % (Auto) 68.7 Lymph % (Auto) 13.6 Hooker % (Auto) 14.6 H Eos % (Auto) 2.5 Baso % (Auto) 0.6 Neut # (Auto) 2.7 Lymph # (Auto) 0.5 L Hooker # (Auto) 0.6 Eos # (Auto) 0.1 Baso # (Auto) 0.0 WBC Differential . Diff Scan Auto diff confirmed Differential Comment . Sodium 143 Potassium 4.1 Chloride 104 Carbon Dioxide 31.4 Anion Gap 8 BUN 5 L Creatinine 0.70 Estimated GFR Greater than 89 POC Glucose Random Glucose 152 H Calcium 8.6 Magnesium 1.7 Total Bilirubin 0.8 AST 33 ALT 26 Alkaline Phosphatase 149 H Ammonia Total Protein 7.1 Albumin 3.3 L Lipase 84 Urine Color Yellow Urine Clarity Clear Urine pH 8.0 Ur Specific Walton 1.008 Urine Protein Negative Urine Glucose (UA) Negative Urine Ketones Negative Urine Occult Blood Negative Urine Nitrate Negative Urine Bilirubin Negative Urine Urobilinogen Less than 2 Ur Leukocyte Esterase Negative Urine WBC Less than 1 Micro UA Comment Culture not ind Ur Microscopic Review Not Reportable Urine Culture Comments Culture not ind 01/15/18 01/15/18 01/15/18 12:20 13:39 16:50 WBC RBC Hgb 11.4 L Hct 35.6 L MCV MCH MCHC RDW Plt Count MPV Prelim Diff (Auto) Neut % (Auto) Lymph % (Auto) Hooker % (Auto) Eos % (Auto) Baso % (Auto) Neut # (Auto) Lymph # (Auto) Hooker # (Auto) Eos # (Auto) Baso # (Auto) WBC Differential Diff Scan Differential Comment Sodium Potassium Chloride Carbon Dioxide Anion Gap BUN Creatinine Estimated GFR POC Glucose 115 H Random Glucose Calcium Magnesium Total Bilirubin AST ALT Alkaline Phosphatase Ammonia 54 H Total Protein Albumin Lipase Urine Color Urine Clarity Urine pH Ur Specific Walton Urine Protein Urine Glucose (UA) Urine Ketones Urine Occult Blood Urine Nitrate Urine Bilirubin Urine Urobilinogen Ur Leukocyte Esterase Urine WBC Micro UA Comment Ur Microscopic Review Urine Culture Comments - Imaging Impressions Abdomen Ultrasound 01/15/18 00:00 CONCLUSION: 1. No significant ascites. Abdomen/Pelvis CT 01/15/18 07:18 CONCLUSION: 1. There is a very small ingested metallic foreign body in the mid transverse colon without evidence for colitis or perforation at this time. This does not have the typical appearance of a barbecue bristle although this cannot be entirely excluded. 2. Cirrhotic liver with evidence for portal hypertension and prominent gastroesophageal varices. There is no ascites although there is diffuse mesenteric edema. This is particularly prominent near the fourth portion of the duodenum. Suspect this is dependent mesenteric edema rather than duodenitis. 3. Additional ancillary findings, as above. <Gerri Saravia - Last Filed: 01/15/18 17:11> - Labs CBC & Chem 7: 01/15/18 13:39 01/15/18 07:47 Labs: Laboratory Results - last 24 hr 01/15/18 01/15/18 01/15/18 07:30 07:47 07:47 WBC 3.9 L RBC 4.66 Hgb 11.9 L Hct 37.5 L MCV 80.5 MCH 25.7 L MCHC 31.9 L RDW 17.1 Plt Count 74 L MPV 8.6 Prelim Diff (Auto) Slide review pending Neut % (Auto) 68.7 Lymph % (Auto) 13.6 Hooker % (Auto) 14.6 H Eos % (Auto) 2.5 Baso % (Auto) 0.6 Neut # (Auto) 2.7 Lymph # (Auto) 0.5 L Hooker # (Auto) 0.6 Eos # (Auto) 0.1 Baso # (Auto) 0.0 WBC Differential . Diff Scan Auto diff confirmed Differential Comment . PT INR Sodium 143 Potassium 4.1 Chloride 104 Carbon Dioxide 31.4 Anion Gap 8 BUN 5 L Creatinine 0.70 Estimated GFR Greater than 89 POC Glucose Random Glucose 152 H Calcium 8.6 Magnesium 1.7 Total Bilirubin 0.8 AST 33 ALT 26 Alkaline Phosphatase 149 H Ammonia Total Protein 7.1 Albumin 3.3 L Lipase 84 Urine Color Yellow Urine Clarity Clear Urine pH 8.0 Ur Specific Walton 1.008 Urine Protein Negative Urine Glucose (UA) Negative Urine Ketones Negative Urine Occult Blood Negative Urine Nitrate Negative Urine Bilirubin Negative Urine Urobilinogen Less than 2 Ur Leukocyte Esterase Negative Urine WBC Less than 1 Micro UA Comment Culture not ind Ur Microscopic Review Not Reportable Urine Culture Comments Culture not ind 01/15/18 01/15/18 01/15/18 12:20 13:39 16:50 WBC RBC Hgb 11.4 L Hct 35.6 L MCV MCH MCHC RDW Plt Count MPV Prelim Diff (Auto) Neut % (Auto) Lymph % (Auto) Hooker % (Auto) Eos % (Auto) Baso % (Auto) Neut # (Auto) Lymph # (Auto) Hooker # (Auto) Eos # (Auto) Baso # (Auto) WBC Differential Diff Scan Differential Comment PT INR Sodium Potassium Chloride Carbon Dioxide Anion Gap BUN Creatinine Estimated GFR POC Glucose 115 H Random Glucose Calcium Magnesium Total Bilirubin AST ALT Alkaline Phosphatase Ammonia 54 H Total Protein Albumin Lipase Urine Color Urine Clarity Urine pH Ur Specific Walton Urine Protein Urine Glucose (UA) Urine Ketones Urine Occult Blood Urine Nitrate Urine Bilirubin Urine Urobilinogen Ur Leukocyte Esterase Urine WBC Micro UA Comment Ur Microscopic Review Urine Culture Comments 01/15/18 17:20 WBC RBC Hgb Hct MCV MCH MCHC RDW Plt Count MPV Prelim Diff (Auto) Neut % (Auto) Lymph % (Auto) Hooker % (Auto) Eos % (Auto) Baso % (Auto) Neut # (Auto) Lymph # (Auto) Hooker # (Auto) Eos # (Auto) Baso # (Auto) WBC Differential Diff Scan Differential Comment PT 12.2 H INR 1.2 Sodium Potassium Chloride Carbon Dioxide Anion Gap BUN Creatinine Estimated GFR POC Glucose Random Glucose Calcium Magnesium Total Bilirubin AST ALT Alkaline Phosphatase Ammonia Total Protein Albumin Lipase Urine Color Urine Clarity Urine pH Ur Specific Walton Urine Protein Urine Glucose (UA) Urine Ketones Urine Occult Blood Urine Nitrate Urine Bilirubin Urine Urobilinogen Ur Leukocyte Esterase Urine WBC Micro UA Comment Ur Microscopic Review Urine Culture Comments - Imaging Impressions Abdomen Ultrasound 01/15/18 00:00 CONCLUSION: 1. No significant ascites. Abdomen/Pelvis CT 01/15/18 07:18 CONCLUSION: 1. There is a very small ingested metallic foreign body in the mid transverse colon without evidence for colitis or perforation at this time. This does not have the typical appearance of a barbecue bristle although this cannot be entirely excluded. 2. Cirrhotic liver with evidence for portal hypertension and prominent gastroesophageal varices. There is no ascites although there is diffuse mesenteric edema. This is particularly prominent near the fourth portion of the duodenum. Suspect this is dependent mesenteric edema rather than duodenitis. 3. Additional ancillary findings, as above. <Ina May - Last Filed: 01/15/18 19:33> Assessment and Plan - Plan Assessment: - Ingestion of foreign body- CT scan reports metallic foreign body in the mid transverse colon without evidence for colitis or perforation at this time. Patient reports that he thinks he swallowed part of his filling, states that he was eating a sandwich and he felt his tooth break off. - Nausea/vomiting with question of hematemesis Patient reports nausea and vomiting persistently for the past 2 days. He does report bright red blood mixed in his emesis, states that he thinks it is from his teeth extraction done 2 days ago. Exam does not reveal any active bleeding in his oral cavity. Patient also reports abdominal pain that has been persistent for the past day and a half, unable to describe the pain. Patient states that pain is worse after taking naltrexone. Despite naltrexone, patient continues to drink alcohol. He states that he had 2 beers yesterday. Pt also reports significant Ibuprofen use until less than a month ago when he was advised by his PCP to stop. Previously seen by our service for upper GIB, did have noted esophageal varices, however no active bleeding and the bleeding was actually noted to be likely secondary to Yanci-Hutton tear. EGD (11/14/17) class a esophagitis noted, scar of previous banding noted. Multiple large ulcers were found in the pylorus, biopsies taken. Normal duodenal mucosa in the duodenal bulb, second part of duodenum and third part of duodenum. 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 There is no ascites although there is diffuse mesenteric edema. This is particularly prominent near the fourth portion of the duodenum. Suspect this is dependent mesenteric edema rather than duodenitis. Pt continues to drink alcohol despite being on Naltrexone Plan: EGD tomorrow Obtain consent NPO after MN OK for clear liquids today if tolerating Protonix Octreotide gtt Check PT/INR May need correction prior to EGD Follow up [facility] for foreign body Monitor H/H Monitor platelets Further recommendations based on course This patient has been seen and examined by myself and Dr. May and this note is written on her behalf <Gerri Saravia - Last Filed: 01/15/18 17:11> - Attending Attestation seen, examined agree with above <Ina May - Last Filed: 01/15/18 19:33>
[2018-01-15 17:46] LABS: INR 1.2 Ratio; Prothrombin Time 12.2 sec (9.8-11.6)
[2018-01-15 21:23] LABS: Hematocrit 35.7 % (39.0-51.0); Hemoglobin 11.9 gm/dL (13.0-17.0)
[2018-01-15] MEDS ORDERED: Dextrose 50% in Water 50 ML Vial IV.PUSH PRN (21:35)
[2018-01-15] MEDS: Senna/Docusate Sodium 8.6/50 MG Tablet PO SCH (22:10)
[2018-01-16] MEDS: Dextrose 5%/NaCl 0.9% Inj 1,000 ML IV.CONT SCH
[2018-01-16] MEDS: Ciprofloxacin 200 MG/100 ML 200 MG/100 ML PIGGYBACK IV.SIG SCH
[2018-01-16] MEDS: Insulin NovoLOG Aspart Correctional Sugar Inj SQ SCH ×2 (03:20→08:45)
[2018-01-16 03:24] LABS: Baso % (Auto) 0.9 % (0.0-2.0); Eos # (Auto) 0.1 th/mm3 (0.0-0.4); Eos % (Auto) 3.1 % (0.0-4.0); Hemoglobin 11.5 gm/dL (13.0-17.0); Lymph # (Auto) 0.8 th/mm3 (1.0-4.8); Lymph % (Auto) 19.8 % (9.0-44.0); Mean Corpuscular HGB Conc 31.8 % (32.0-36.0); Mean Corpuscular Hemoglobin 25.6 pg (27.0-34.0); Mean Corpuscular Volume 80.3 fL (80.0-100.0); Mean Platelet Volume 8.7 fL (7.0-11.0); Mono # (Auto) 0.6 th/mm3 (0.0-0.9); Mono % (Auto) 15.4 % (0.0-8.0); Neut # (Auto) 2.5 th/mm3 (1.8-7.7); Neut % (Auto) 60.8 % (16.0-70.0); Platelet Count 72 th/mm3 (150-450); Red Blood Count 4.48 mil/mm3 (4.50-5.90); Red Cell Distribution Width 17.4 % (11.6-17.2); White Blood Count 4.1 th/mm3 (4.0-11.0)
[2018-01-16 03:41] LABS: Alanine Aminotransferase 23 U/L (12-78); Albumin 3.1 g/dL (3.4-5.0); Anion Gap 10 meq/L (5-15); Aspartate Aminotransferase 30 U/L (15-37); Blood Urea Nitrogen 5 mg/dL (7-18); Calcium 7.9 mg/dL (8.5-10.1); Carbon Dioxide 26.8 meq/L (21.0-32.0); Chloride 104 meq/L (98-107); Glomerular Filtration Rate Greater Than 89 mL/min (>89); Glucose,Random 220 mg/dL (74-106); Potassium 4.2 meq/L (3.5-5.1); Sodium 141 meq/L (136-145)
[2018-01-16 03:44] LABS: Alkaline Phosphatase 142 U/L (45-117); Total Protein 6.8 g/dL (6.4-8.2)
[2018-01-16 04:14] LABS: Ovalocytes 1+; Platelet Morphology Normal (Normal)
[2018-01-16] MEDS: Sod Chloride 0.9% Inj 1,000 ML IV.CONT SCH (07:30)
[2018-01-16] MEDS ORDERED: Sodium Chlor 0.9% Inj 500 ML IV.CONT ONE (09:30)
[2018-01-16] MEDS ORDERED: Metoprolol Tartrate 25 MG Tablet PO ONE (09:30)
[2018-01-16] MEDS ORDERED: Chlorhexidine Gluconate 2% 1 Pack (2 Cloths) TOPICAL ONE (09:30)
--- NOTE | 2018-01-16 11:25 | ECG ---
Date Performed: 01/16/2018 Time Performed: 03:41:10 PTAGE: 52 years EKG: Sinus rhythm INCOMPLETE RIGHT BUNDLE BRANCH BLOCK SEPTAL MYOCARDIAL INFARCTION ABNORMAL ECG Since the PREVIOUS TRACING , no significant change noted PREVIOUS TRACIN07/26/17 DOCTOR: Andry Loyola Interpretating Date/Time 01/16/2018 11:23:44
[2018-01-16] MEDS ORDERED: Esmolol Bolus Inj 100 MG/10 ML Vial IV.PUSH ONE (13:00)
[2018-01-16] MEDS ORDERED: Metoprolol Inj 5 MG/5 ML Vial IV.PUSH ONE (13:00)
[2018-01-16] MEDS ORDERED: Succinylcholine Inj 100 MG/5 ML Syringe IV.PUSH ONE (13:00)
--- NOTE | 2018-01-16 13:24 | GIPROC ---
[facility] [address] [facility]. [facility], [id number] EGD PROCEDURE REPORT EXAM DATE: 01/16/2018 PATIENT NAME: Noe Koroma MR #: [id number] BIRTHDATE: 1965 ATTENDING: Ina May MD ORDER #: [id number] MATERNAL CHILD NURSE: Jojo Fish and Marly Davis STATUS: inpatient INDICATIONS: The patient is a 52 yr old male here for an EGD due to gi bleeding PROCEDURE PERFORMED: EGD w/ biopsy EGD w/ directed injection sclerosis of varices MEDICATIONS: Per Anesthesia and None. TOPICAL ANESTHETIC: none CONSENT: The patient understands the risks and benefits of the procedure and understands that these risks include, but are not limited to: sedation, allergic reaction, infection, perforation and/or bleeding. Alternative means of evaluation and treatment include, among others: physical exam, x-rays, and/or surgical intervention. The patient elects to proceed with this endoscopic procedure. medical equipment was checked for proper function. Hand hygiene and appropriate measures for infection prevention was taken. After the risks, benefits and alternatives of the procedure were thoroughly explained, Informed consent was verified, confirmed and timeout was successfully executed by the treatment team. The patient was anesthetized with topical anesthesia and the Pentax EG-[id number] endoscope was introduced through the mouth and advanced to the second portion of the duodenum. Retroflexed views revealed a hiatal hernia The gastroscope was then slowly withdrawn and removed. Esophageal varices - grade 2 sp banding -4 band applied gastritis antrum-biopsy. ADVERSE EVENTS: Bleeding occurred IMPRESSIONS: 1. Esophageal varices - grade 2 sp banding -4 band applied gastritis antrum-biopsy 2. Retroflexed views revealed a hiatal hernia RECOMMENDATIONS: 1. Await biopsy results. Biopsy results will not be ready for 7-10 days. If you don't hear from us in two weeks, call our office for biopsy results. 2. Anti-reflux regimen 3. Clear liquid diet abnormal vocal cords noted during intubation- ct neck ent consult consult IR for picc line PATIENT CONDITION: stable DISPOSITION: Inpatient REPEAT EXAM: Return 3 months EGD Ina May MD eSigned: Ina May MD 01/16/2018 1:24 PM cc: PATIENT NAME: Noe Koroma MR#: [id number]
[2018-01-16] MEDS ORDERED: *HYDROmorphone PF Inj 1 MG/ML Ampul PERIprocedural Use ONLY ONE (14:31)
--- NOTE | 2018-01-16 15:36 | P.PNFP ---
Subjective Interval history: Patient seen and examined in PACU after GI procedure. Patient reports he began having mid sternal chest pain after the GI procedures. CP is non-radiating. EKG showed no changes. Afebrile. Patient slight hypertension with SBP in the 130s, vital signs otherwise stable and physical exam wnl. Chest pain likely related to recent variceal banding procedure. Patient reports vomiting overnight only with tinge of blood in vomit. Overnight denies any issues with fever, chills, shortness of breath or chest pain. <Mele Recinos D - 01/16/18 16:43> Results - Labs Result diagrams: 01/16/18 15:35 01/16/18 03:06 <Florian Ritchie - 01/16/18 22:31> Abnormal lab results 01/15/18 01/16/18 01/16/18 Range/Units 22:05 03:06 03:06 RBC 4.48 L (4.50-5.90) mil/mm3 Hgb 11.5 L (13.0-17.0) gm/dL Hct 36.0 L (39.0-51.0) % MCV (80.0-100.0) fL MCH 25.6 L (27.0-34.0) pg MCHC 31.8 L (32.0-36.0) % RDW 17.4 H (11.6-17.2) % Plt Count 72 L (150-450) th/mm3 Neut % (Auto) (16.0-70.0) % Lymph % (Auto) (9.0-44.0) % [place] % (Auto) 15.4 H (0.0-8.0) % Lymph # (Auto) 0.8 L (1.0-4.8) th/mm3 Platelet Estimate Low L (Normal) Ovalocytes 1+ H (None) BUN 5 L (7-18) mg/dL POC Glucose 172 H (68-110) mg/dl Random Glucose 220 H (74-106) mg/dL Calcium 7.9 L (8.5-10.1) mg/dL Alkaline Phosphatase 142 H (45-117) U/L Albumin 3.1 L (3.4-5.0) g/dL 01/16/18 01/16/18 01/16/18 Range/Units 03:07 08:37 14:15 RBC (4.50-5.90) mil/mm3 Hgb (13.0-17.0) gm/dL Hct (39.0-51.0) % MCV (80.0-100.0) fL MCH (27.0-34.0) pg MCHC (32.0-36.0) % RDW (11.6-17.2) % Plt Count (150-450) th/mm3 Neut % (Auto) (16.0-70.0) % Lymph % (Auto) (9.0-44.0) % [place] % (Auto) (0.0-8.0) % Lymph # (Auto) (1.0-4.8) th/mm3 Platelet Estimate (Normal) Ovalocytes (None) BUN (7-18) mg/dL POC Glucose 250 H 135 H 135 H (68-110) mg/dl Random Glucose (74-106) mg/dL Calcium (8.5-10.1) mg/dL Alkaline Phosphatase (45-117) U/L Albumin (3.4-5.0) g/dL 01/16/18 Range/Units 15:35 RBC 4.49 L (4.50-5.90) mil/mm3 Hgb 11.7 L (13.0-17.0) gm/dL Hct 35.9 L (39.0-51.0) % MCV 79.8 L (80.0-100.0) fL MCH 26.0 L (27.0-34.0) pg MCHC (32.0-36.0) % RDW 17.4 H (11.6-17.2) % Plt Count 84 L (150-450) th/mm3 Neut % (Auto) 77.5 H (16.0-70.0) % Lymph % (Auto) 8.3 L (9.0-44.0) % [place] % (Auto) 12.3 H (0.0-8.0) % Lymph # (Auto) 0.6 L (1.0-4.8) th/mm3 Platelet Estimate (Normal) Ovalocytes (None) BUN (7-18) mg/dL POC Glucose (68-110) mg/dl Random Glucose (74-106) mg/dL Calcium (8.5-10.1) mg/dL Alkaline Phosphatase (45-117) U/L Albumin (3.4-5.0) g/dL Short CBC 01/16/18 01/16/18 Range/Units 03:06 15:35 WBC 4.1 6.7 D (4.0-11.0) th/mm3 Hgb 11.5 L 11.7 L (13.0-17.0) gm/dL Hct 36.0 L 35.9 L (39.0-51.0) % Plt Count 72 L 84 L (150-450) th/mm3 BMP 01/16/18 03:06 Sodium 141 Potassium 4.2 Chloride 104 Carbon Dioxide 26.8 BUN 5 L Creatinine 0.87 Calcium 7.9 L Liver Function 01/16/18 Range/Units 03:06 Total Bilirubin 0.9 (0.2-1.0) mg/dL AST 30 (15-37) U/L ALT 23 (12-78) U/L Alkaline Phosphatase 142 H (45-117) U/L Albumin 3.1 L (3.4-5.0) g/dL <Florian Ritchie L - 01/16/18 22:31> Abnormal lab results 01/15/18 01/15/18 01/15/18 Range/Units 16:50 17:20 20:57 RBC (4.50-5.90) mil/mm3 Hgb 11.9 L (13.0-17.0) gm/dL Hct 35.7 L (39.0-51.0) % MCH (27.0-34.0) pg MCHC (32.0-36.0) % RDW (11.6-17.2) % Plt Count (150-450) th/mm3 [place] % (Auto) (0.0-8.0) % Lymph # (Auto) (1.0-4.8) th/mm3 Platelet Estimate (Normal) Ovalocytes (None) PT 12.2 H (9.8-11.6) sec BUN (7-18) mg/dL POC Glucose 115 H (68-110) mg/dl Random Glucose (74-106) mg/dL Calcium (8.5-10.1) mg/dL Alkaline Phosphatase (45-117) U/L Albumin (3.4-5.0) g/dL 01/15/18 01/16/18 01/16/18 Range/Units 22:05 03:06 03:06 RBC 4.48 L (4.50-5.90) mil/mm3 Hgb 11.5 L (13.0-17.0) gm/dL Hct 36.0 L (39.0-51.0) % MCH 25.6 L (27.0-34.0) pg MCHC 31.8 L (32.0-36.0) % RDW 17.4 H (11.6-17.2) % Plt Count 72 L (150-450) th/mm3 [place] % (Auto) 15.4 H (0.0-8.0) % Lymph # (Auto) 0.8 L (1.0-4.8) th/mm3 Platelet Estimate Low L (Normal) Ovalocytes 1+ H (None) PT (9.8-11.6) sec BUN 5 L (7-18) mg/dL POC Glucose 172 H (68-110) mg/dl Random Glucose 220 H (74-106) mg/dL Calcium 7.9 L (8.5-10.1) mg/dL Alkaline Phosphatase 142 H (45-117) U/L Albumin 3.1 L (3.4-5.0) g/dL 01/16/18 01/16/18 01/16/18 Range/Units 03:07 08:37 14:15 RBC (4.50-5.90) mil/mm3 Hgb (13.0-17.0) gm/dL Hct (39.0-51.0) % MCH (27.0-34.0) pg MCHC (32.0-36.0) % RDW (11.6-17.2) % Plt Count (150-450) th/mm3 [place] % (Auto) (0.0-8.0) % Lymph # (Auto) (1.0-4.8) th/mm3 Platelet Estimate (Normal) Ovalocytes (None) PT (9.8-11.6) sec BUN (7-18) mg/dL POC Glucose 250 H 135 H 135 H (68-110) mg/dl Random Glucose (74-106) mg/dL Calcium (8.5-10.1) mg/dL Alkaline Phosphatase (45-117) U/L Albumin (3.4-5.0) g/dL Short CBC 01/15/18 01/16/18 Range/Units 20:57 03:06 WBC 4.1 (4.0-11.0) th/mm3 Hgb 11.9 L 11.5 L (13.0-17.0) gm/dL Hct 35.7 L 36.0 L (39.0-51.0) % Plt Count 72 L (150-450) th/mm3 BMP 01/16/18 03:06 Sodium 141 Potassium 4.2 Chloride 104 Carbon Dioxide 26.8 BUN 5 L Creatinine 0.87 Calcium 7.9 L Liver Function 01/16/18 Range/Units 03:06 Total Bilirubin 0.9 (0.2-1.0) mg/dL AST 30 (15-37) U/L ALT 23 (12-78) U/L Alkaline Phosphatase 142 H (45-117) U/L Albumin 3.1 L (3.4-5.0) g/dL <Mele Recinos D - 01/16/18 15:36> - Imaging Impressions Abdomen X-Ray 01/16/18 00:00 CONCLUSION: 1. 4 mm linear metallic density in the right mid quadrant possibly representing a small surgical clip. 2. Otherwise, unremarkable exam. Chest CT 01/16/18 00:00 CONCLUSION: 1. Mild infiltrates are noted in the posterior lower lung hussein bilaterally suggestive of atelectasis. Otherwise, lung hussein are grossly clear. 2. Nonspecific 1.5 cm lymph node in the anterior superior mediastinum. 3. Nonspecific thickening involving the distal esophagus. If clinically indicated, a barium swallow could be performed on a nonemergent outpatient basis. Soft Tissue Neck CT 01/16/18 00:00 CONCLUSION: 1. Grossly unremarkable CT soft tissue neck for patient's age. 2. Nonspecific 1.5 cm lymph node in the anterior superior mediastinum. <Florian Ritchie - 01/16/18 22:31> Physical Exam Vital signs: Vital Signs 01/15/18 22:40 01/15/18 23:27 01/16/18 03:43 Temperature 99.1 F 98.3 F Pulse Rate 71 61 Respiratory Rate 16 17 17 Blood Pressure 114/81 145/80 H Pulse Oximetry 95 95 01/16/18 14:14 01/16/18 14:30 01/16/18 14:45 Temperature 99.2 F Pulse Rate 90 88 87 Respiratory Rate 23 18 14 Blood Pressure 171/98 H 160/93 H 149/87 H Pulse Oximetry 100 94 L 96 01/16/18 15:00 01/16/18 15:15 01/16/18 15:30 Temperature Pulse Rate 85 86 85 Respiratory Rate 21 18 13 Blood Pressure 149/91 H 153/94 H 164/99 H Pulse Oximetry 97 97 97 01/16/18 15:45 01/16/18 16:00 01/16/18 16:15 Temperature 98.9 F Pulse Rate 85 85 83 Respiratory Rate 9 L 13 14 Blood Pressure 168/93 H 157/94 H 167/94 H Pulse Oximetry 97 98 99 01/16/18 17:00 01/16/18 20:00 Temperature 98.9 F 98.0 F Pulse Rate 73 80 Respiratory Rate 18 20 Blood Pressure 158/87 H 158/89 H Pulse Oximetry 96 100 Intake & Output 01/16/18 01/16/18 01/17/18 06:59 18:59 06:59 Intake Total 100 / 100 Balance 100 / 100 Weight 99.79 kg Intake: IV 100 / 100 Cipro 200 MG/100 ML Inj 200 mg 100 / 100 In 100 ml @ 100 mls/hr IV.SIG Q12H COUNT INCLUDES THE [facility] Rx#:[id number] Other: Date of Last Bowel Movement 01/14/18 <Florian Ritchie L - 01/16/18 22:31> Vital Signs 01/15/18 15:47 01/15/18 20:00 01/15/18 22:40 Temperature 98.9 F 98.2 F Pulse Rate 82 75 Respiratory Rate 16 19 16 Blood Pressure 163/96 H 154/96 H Pulse Oximetry 90 L 95 01/15/18 23:27 01/16/18 03:43 Temperature 99.1 F 98.3 F Pulse Rate 71 61 Respiratory Rate 17 17 Blood Pressure 114/81 145/80 H Pulse Oximetry 95 95 Intake & Output 01/15/18 01/16/18 01/16/18 18:59 06:59 18:59 Intake Total 1100 / 1100 100 / 100 Balance 1100 / 1100 100 / 100 Weight 99.79 kg Intake: IV 1100 / 1100 100 / 100 Cipro 200 MG/100 ML Inj 200 mg 100 / 100 100 / 100 In 100 ml @ 100 mls/hr IV.SIG Q12H [facility] Rx#:[id number] Other: # Voids 1 Weight On Admission 99.79 kg <Mele Recinos 01/16/18 15:36> - Constitutional no acute distress <Mele Recinos 01/16/18 16:43> - Routine HEENT Exam Eye: Present: EOMI, PERRL <Mele Recinos 01/16/18 16:43> ENT: Present: mucous membranes moist <Mele Recinos 01/16/18 16:43> - Routine Neck Exam Present: supple, full ROM. Absent: lymphadenopathy <Mele Recinos 16:43> - Routine Respiratory Exam Present: CTA bilaterally. Absent: accessory muscle use <Mele Recinos 10/26 16:43> - Routine Cardiovascular Exam Present: RRR, S1, S2. Absent: murmur, gallop, rubs <Mele Recinos 16:43> - Routine Abdominal Exam Present: soft, normoactive bowel sounds. Absent: guarding <Mele Recinos 01/16/18 16:43> - Routine Extremities Exam Present: pulses intact. Absent: cyanosis, edema, calf tenderness <Mele Recinos 01/16/18 16:43> - Routine Neurological Exam Present: oriented X3, CN II-XII intact <Mele Recinos 01/16/18 16:43> Assessment and Plan - Assessment (1) Abdominal pain Code(s): R10.9 - Unspecified abdominal pain Status: Acute (2) Esophageal varices in cirrhosis Code(s): K74.60 - Unspecified cirrhosis of liver; I85.10 - Secondary esophageal varices without bleeding Status: Chronic (3) Hypertension Code(s): I10 - Essential (primary) hypertension Status: Chronic (4) Alcohol abuse Code(s): F10.10 - Alcohol abuse, uncomplicated Status: Chronic (5) Depression with anxiety Code(s): F41.8 - Other specified anxiety disorders Status: Chronic (6) Nutrition, metabolism, and development symptoms Code(s): R63.8 - Other symptoms and signs concerning food and fluid intake Status: Acute (7) Diabetes Code(s): E11.9 - Type 2 diabetes mellitus without complications Status: Chronic <Florian Ritchie - 01/16/18 22:31> (1) Abdominal pain Code(s): R10.9 - Unspecified abdominal pain Status: Acute Plan: Patient is a 52-year-old male with past medical history of alcoholism, cirrhosis and esophageal variceal GI bleed who presented to the ED with complaint of umbilical abdominal pain, nausea, and vomiting for the past 2 days. Patient reports tooth extraction 2 days prior to admission and malaise ( abdominal pain, vomiting x10 times with questionable blood in vomit which he attributes to tooth extraction however due to patient's history of upper GI bleed due to esophageal varices will consult GI for further evaluation). On admission patient was slightly hypertensive however he was afebrile and no leukocytosis appreciated on CBC. CT abdomen: Showing edema of mesenteric, small metallic object in the transverse colon (which may have been part of patient's dental filling) and cirrhosis with portal hypertension and significant esophageal varices. Zofran for nausea Pain controlled with hydromorphone PRN which patient has had in the past without any adverse reactions Protonix IV twice daily Cipro for prophylaxis IV fluids GI consulted for further recommendations Protonix, prophylactic antibiotic and octreotide drip H&H stable and abdominal ultrasound negative for ascites EGD procedure today showed: Esophageal varices grade 2 status post 4 band applied, biopsies taken from gastric antrum. Repeat EGD in 3 months. 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 Due to the difficulty in placing IV prior to GI procedure a central line order has been placed. Follow-up neck CT and patient may start on clear liquid diet (2) Esophageal varices in cirrhosis Code(s): K74.60 - Unspecified cirrhosis of liver; I85.10 - Secondary esophageal varices without bleeding Status: Chronic Plan: See plan above for abdominal pain (3) Hypertension Code(s): I10 - Essential (primary) hypertension Status: Chronic Plan: Resume home medications Continue to monitor blood pressure. (4) Alcohol abuse Code(s): F10.10 - Alcohol abuse, uncomplicated Status: Chronic Plan: Patient with extensive alcohol abuse history for the past 30 years complicated by cirrhosis and esophageal variceal GI bleed. Currently receiving treatment for alcoholism at [facility] since July of this year. Reports he is taking a medication to help with his alcoholism however he has not been compliant and has been drinking at least 2 beers per day. Presented to the ED with severe abdominal pain, vomiting and nausea. Continue with CIWA protocol CIWA so far has been 1, 3, 0, 0, 1, 2 Continue to monitor vital signs (5) Depression with anxiety Code(s): F41.8 - Other specified anxiety disorders Status: Chronic Plan: Resume home medications (6) Nutrition, metabolism, and development symptoms Code(s): R63.8 - Other symptoms and signs concerning food and fluid intake Status: Acute Plan: Fluids: 100 mL/hour Electrolytes: Replete as needed Diet: Clear liquid diet DVT prophylaxis: SCDs (7) Diabetes Code(s): E11.9 - Type 2 diabetes mellitus without complications Status: Chronic Plan: Sliding scale insulin low Accu-Cheks Hypoglycemia protocol <Mele Recinos - 01/16/18 16:15> - Attending Attestation The exam, history, and the medical decision-making described in the above note were completed with the assistance of the resident physician. I reviewed and agree with the findings presented. I attest that I had a myti-st-toae encounter with the patient on the same day, and personally performed and documented my assessment and findings in the medical record. He is s/p banding of esophageal varices X4. Currently with some pain related to the EGD and banding procedure. Had some vomiting overnight with tinge of blood. Mass on vocal cord noticed during EGD procedure, ENT is consulted with further imaging pending. From alcohol withdrawal standpoint he is doing well, not showing signs of significant withdrawal at this time. Will require good outpatient follow up with psychiatry (for alcoholism), PCP, and gastroenterology (for cirrhosis and portal hypertension, surveillance of varices). <Florian Ritchie - 01/16/18 22:31>
[2018-01-16 16:03] LABS: Baso % (Auto) 0.6 % (0.0-2.0); Eos # (Auto) 0.1 th/mm3 (0.0-0.4); Eos % (Auto) 1.3 % (0.0-4.0); Hematocrit 35.9 % (39.0-51.0); Hemoglobin 11.7 gm/dL (13.0-17.0); Lymph # (Auto) 0.6 th/mm3 (1.0-4.8); Lymph % (Auto) 8.3 % (9.0-44.0); Mean Corpuscular HGB Conc 32.6 % (32.0-36.0); Mean Corpuscular Volume 79.8 fL (80.0-100.0); Mean Platelet Volume 8.5 fL (7.0-11.0); Mono # (Auto) 0.8 th/mm3 (0.0-0.9); Mono % (Auto) 12.3 % (0.0-8.0); Neut # (Auto) 5.2 th/mm3 (1.8-7.7); Neut % (Auto) 77.5 % (16.0-70.0); Platelet Count 84 th/mm3 (150-450); Red Blood Count 4.49 mil/mm3 (4.50-5.90); Red Cell Distribution Width 17.4 % (11.6-17.2); White Blood Count 6.7 th/mm3 (4.0-11.0)
--- NOTE | 2018-01-16 17:08 | CT ---
EXAM DATE: 01/16/2018 5:02 PM EST AGE/SEX: 52 years / Male INDICATIONS: Abnormal vocal cord. CLINICAL DATA: This is the patient's initial encounter. Patient reports that signs and symptoms have been present for 1 day and indicates a pain score of Nonresponsive. MEDICAL/SURGICAL HISTORY: Diabetes. Hypertension. Esophageal varices. . Abdominal surgery. RADIATION DOSE: 18.92 CTDI (mGy) COMPARISON: No prior exams available for comparison. TECHNIQUE: Helical acquisition was performed using a multirow detector CT scanner during the adminis tration of 75 ml Omnipaque 350 (iohexol) nonionic water-soluble contrast as a single exam dose. Usi ng automated exposure control and adjustment of the mA and/or kV according to patient size, radiation dose was kept as low as reasonably achievable to obtain optimal diagnostic quality images. DICOM fo rmat image data is available electronically for review and comparison. FINDINGS: Nasopharynx: The nasopharyngeal airway has a normal configuration. No mucosal thickening or mass is seen. Oropharynx: The intrinsic muscles of the tongue are symmetric. The tonsillar pillars are intact. T he prevertebral soft tissues are not thickened. Larynx: The supraglottic, glottic, and infraglottic structures are intact. The vocal cords appear to be symmetric bilaterally. Parapharyngeal: The parapharyngeal space is intact. Salivary Glands: The parotid and submandibular glands are intact. Lymph Nodes: No enlarged or necrotic-appearing nodes. Thyroid: Homogeneous enhancement without evidence of nodule. Bones: Mild degenerative changes. The lung apices are grossly clear. There is a nonspecific mildly prominent lymph node in the anterior superior mediastinum measuring 1.5 cm. CONCLUSION: 1. Grossly unremarkable CT soft tissue neck for patient's age. 2. Nonspecific 1.5 cm lymph node in the anterior superior mediastinum. Electronically signed by: Josue Hopkins MD 01/16/2018 5:06 PM EST
--- NOTE | 2018-01-16 17:13 | CT ---
EXAM DATE: 01/16/2018 5:06 PM EST AGE/SEX: 52 years / Male INDICATIONS: Cough. CLINICAL DATA: This is the patient's initial encounter. Patient reports that signs and symptoms have been present for 1 day and indicates a pain score of Nonresponsive. MEDICAL/SURGICAL HISTORY: Diabetes. Hypertension. Esophageal varices. . Abdominal surgery. RADIATION DOSE: 18.73 CTDI (mGy) COMPARISON: No prior exams available for comparison. TECHNIQUE: Multiple contiguous axial images were obtained through the chest during bolus infusion of 50 ml Omnipaque 350 (iohexol) nonionic water-soluble contrast as a single exam dose. Images were obtained in suspended respiration using multiple row detector helical technique. Using automated exp osure control and adjustment of the mA and/or kV according to patient size, radiation dose was kept a s low as reasonably achievable to obtain optimal diagnostic quality images. DICOM format image data is available electronically for review and comparison. FINDINGS: Lungs: There is some mild infiltrates in the posterior lower lung hussein suggestive of atelectasis. Otherwise, the lungs are clear and well aerated. No suspicious pulmonary nodules. Mediastinum: There is good visualization of the great vessels of the middle mediastinum. There is a single nonspecific 1.5 cm lymph node in the anterior superior mediastinum. Otherwise, no other promin ent lymph nodes are seen in the mediastinum. Pleurae: No evidence of focal thickening or pleural effusion. Axillae: Unremarkable. Bony Structures: Mild degenerative changes. Miscellaneous: The examination was extended to include the upper abdomen, and both adrenal glands ar e normal in size and configuration. There is nonspecific thickening involving the distal esophagus. CONCLUSION: 1. Mild infiltrates are noted in the posterior lower lung hussein bilaterally suggestive of atelectas is. Otherwise, lung hussein are grossly clear. 2. Nonspecific 1.5 cm lymph node in the anterior superior mediastinum. 3. Nonspecific thickening involving the distal esophagus. If clinically indicated, a barium swallow could be performed on a nonemergent outpatient basis. Electronically signed by: Josue Hopkins MD 01/16/2018 5:12 PM EST
--- NOTE | 2018-01-16 17:25 | XR ---
EXAM DATE: 01/16/2018 5:20 PM EST AGE/SEX: 52 years / Male INDICATIONS: Foreign body. CLINICAL DATA: This is the patient's initial encounter. Patient reports that signs and symptoms have been present for 1 day and indicates a pain score of Nonresponsive. MEDICAL/SURGICAL HISTORY: . Diabetes. Hypertension. Esophageal varices. None. COMPARISON: No prior exams available for comparison. FINDINGS: The abdominal bowel gas pattern is normal. There is a 4 mm linear metallic foreign body overlying th e right mid quadrant. This may be a small surgical clip. Otherwise, no other definite metallic foreig n bodies are demonstrated. Contrast is seen in the collecting systems bilaterally. No hydronephrosis is demonstrated. The bony structures are grossly intact with some mild degenerative changes. CONCLUSION: 1. 4 mm linear metallic density in the right mid quadrant possibly representing a small surgical cli p. 2. Otherwise, unremarkable exam. Electronically signed by: Josue Hopkins MD 01/16/2018 5:24 PM EST
--- NOTE | 2018-01-16 19:03 | MB ---
cc: Conor Maki MD DATE: 01/16/2018 DATE OF CONSULTATION: 01/16/2018 REQUESTING PHYSICIAN: Dr. Ina May REASON FOR CONSULTATION: Cough. HISTORY OF PRESENT ILLNESS: Mr. Koroma is a 52-year-old male with cirrhosis of the liver secondary to alcohol abuse. He has history of GI bleed and Yanci-Hutton tear. The patient came to the hospital with nausea, vomiting for the last 3 days. The patient recently had a tooth extraction and was attributing the bleeding to it. However, he was found to have GI bleed. He was admitted to the hospital. He had a GI procedure done. He has cough, sometimes has wheezing, has possible history of asthma in the past. PAST MEDICAL HISTORY: Significant history of cirrhosis of the liver, diabetes mellitus, hypertension, possible asthma. MEDICATIONS: He is currently takin. Milk of magnesia. 2. Ciprofloxacin IV 4. Haldol p.r.n. 5. Lisinopril 40 mg a day. 6. Lorazepam 1 mg every 4 hours p.r.n. 7. Zofran p.r.n. 8. Protonix 40 mg twice a day. ALLERGIES: MORPHINE AND BUSPIRONE. 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 Uses marijuana. FAMILY HISTORY: His . He has no children. He lives at [facility]. LABORATORY DATA: WBC 16.7, hemoglobin 11.7, hematocrit 35.9, MCV 79, platelet count 84. Sodium 140, potassium 4.2, chloride 104, CO2 26, BUN 5, creatinine 0.87. IMPRESSION: 1. Mild shortness of breath and cough, possibly underlying asthma. 2. Hypertension. 3. Diabetes mellitus. 4. Cirrhosis of the liver. PLAN: We will give him aerosol treatment. We will give him Tessalon 200 mg, 3 times a day and advised him not to smoke. Continue present antibiotic. Once he gets better we will check his pulmonary function studies. MD EDYTA Stafford/shana/rr , 06:08 PM , 06:15 PM GREGORY
[2018-01-16] MEDS: Pantoprazole Inj 40 MG Vial IV.PUSH SCH (22:32)
[2018-01-16] MEDS: Senna/Docusate Sodium 8.6/50 MG Tablet PO SCH (22:32)
[2018-01-16] MEDS: Benzonatate 100 MG Capsule PO SCH (22:35)
[2018-01-17] MEDS: Benzonatate 100 MG Capsule PO SCH ×3 (03:24→21:15)
[2018-01-17] MEDS: Insulin NovoLOG Aspart Correctional Sugar Inj SQ SCH ×6 (03:55→21:02)
[2018-01-17] MEDS: Ciprofloxacin 200 MG/100 ML 200 MG/100 ML PIGGYBACK IV.SIG SCH ×2 (04:49→13:55)
[2018-01-17] MEDS: Dextrose 5%/NaCl 0.9% Inj 1,000 ML IV.CONT SCH ×2 (06:41→10:12)
--- NOTE | 2018-01-17 07:26 | P.CON ---
History of Present Illness Service: ENT Consult date: 01/17/18 Reason for Consult: Possible laryngeal mass Primary Care Provider: Yvon Oscar Chief Complaint: abdominal pain and vomiting History of Present Illness: 52 year old male admitted for UGI bleed. Had GI endoscopy yesterday. GI reported possible vocal cord mass. Patient does have complaints of post nasal drip and some throat clearing. He has no airway obstruction. There is no complaints of pharyngeal dysphagia or odynophagia. No throat pain. He has a low p[itch voice, but is at his normal baseline with no significant voice change. He gets mild hoarseness intermittently with throat clearing from his post nasal drip. Pulmonary is going to treat with inhalers. CT neck was reviewed with no evidence of laryngeal lesion. 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 - Medical History Medical History: Medical History (Last Reviewed 01/15/18 @ 07:20 by Dimitri Hamilton MD) Depression Diabetes ETOH abuse Esophageal varices GI bleed HTN (hypertension) - Family History Family History: Family History (Last Reviewed 01/15/18 @ 07:20 by Dimitri Hamilton MD) Other Family history of cancer Family history of colon cancer - Tobacco History Second Hand Smoke Exposure: Yes Tobacco Use In Past 30 Days: Yes Smoking Status: Current every day smoker Tobacco Type: Cigarettes - Alcohol History How Often Do You Have a Drink Containing Alcohol: 2 to 3 times a week - Substance Use History Substance History: Active Abuse - Substance Use Type Marijuana Type: marijuana Status: Active Route Used: Inhalation Reason for Use: Calm Down - Travel History Recent Travel in the [place] Within the Last 8 Weeks: No Recent Travel Out of the Country Within the Last 8 Weeks: No - Immunization History Tetanus Immunization: >5 Years Hx Influenza Vaccine This Season: No Medications and Allergies Active Medications: Active Medications Al Hydroxide/Mg Hydroxide (Milk Of Magngrace Liq) 30 ml PO Q12H PRN PRN Reason: Mild Constipation Amlodipine Besylate (Norvasc) 5 mg PO DAILY [facility] Last Admin: 01/15/18 12:24 Dose: 5 mg Atenolol (Tenormin) 50 mg PO DAILY [facility] Last Admin: 01/15/18 12:24 Dose: 50 mg Benzonatate (Tessalon Perles) 200 mg PO Q8H [facility] Last Admin: 01/17/18 03:24 Dose: 200 mg Bisacodyl (Dulcolax Supp) 10 mg RECTAL DAILY PRN PRN Reason: SEVERE CONSITIPATION Dextrose (D50w Vial) 50 ml IV.PUSH UNSCH PRN PRN Reason: PER HYPOGLYCEMIA PROTOCOL Divalproex Sodium (Depakote Dr) 500 mg PO DAILY [facility] Last Admin: 01/15/18 15:05 Dose: 500 mg Flumazenil (Romazecon Inj) 0.2 mg IV.PUSH Q1M PRN PRN Reason: OVERSEDATION Glucagon (Glucagon Inj) 1 mg OTHER PRN PRN PRN Reason: for Hypoglycemia Protocol Haloperidol Lactate (Haldol Inj) 1 mg IV.PUSH Q15M PRN PRN Reason: for severe agitation Hydromorphone HCl (Dilaudid) 1 mg PO Q6H PRN PRN Reason: ABDOMINAL PAIN Last Admin: 01/17/18 04:54 Dose: 1 mg Sodium Chloride (Ns Inj) 1,000 mls @ 100 mls/hr IV.CONT .Q10H [facility] Last Admin: 01/16/18 07:30 Dose: Not Given Ciprofloxacin/Dextrose (Cipro 200 Mg/100 Ml Inj) 200 mg in 100 mls @ 100 mls/ hr IV.SIG Q12H [facility] Last Infusion: 01/17/18 06:27 Dose: Infused Octreotide Acetate 500 mcg/ (Sodium Chloride) 500.5 mls @ 25.02 mls/hr IV.CONT .Q20H1M [facility] Stop: 01/20/18 13:59 Last Infusion: 01/16/18 22:25 Dose: 0 mcg/hr, 0 mls/hr Dextrose/Sodium Chloride (D5w/Normal Saline Inj) 1,000 mls @ 80 mls/hr IV.CONT .[id number] [facility] Last Admin: 01/17/18 06:41 Dose: 80 mls/hr Lactated Ringer's (Lr 1000 Ml Inj) 1,000 mls @ 30 mls/hr IV.CONT .Q24H ONE Stop: 01/17/18 09:29 Insulin Aspart (Novolog Insulin Correctional Sugar Inj) 0 unit SQ ACHS AND 3AM [facility]; Protocol Last Admin: 01/17/18 03:57 Dose: Not Given Lactulose (Lactulose Liq) 30 ml PO DAILY [facility] Lisinopril (Prinivil) 40 mg PO DAILY [facility] Last Admin: 01/15/18 12:27 Dose: 40 mg Lorazepam (Ativan) 1 mg PO Q4H PRN PRN Reason: for CIWA 8-10 Lorazepam (Ativan) 2 mg PO Q2H PRN PRN Reason: for CIWA 11-14 Last Admin: 01/17/18 03:30 Dose: 2 mg Lorazepam (Ativan Inj) 2 mg IV.PUSH Q2H PRN PRN Reason: for CIWA 11-14 Lorazepam (Ativan Inj) 2 mg IV.PUSH Q15M PRN PRN Reason: for CIWA > 20 Lorazepam (Ativan Inj) 1 mg IV.PUSH Q4H PRN PRN Reason: for CIWA 8-10 Lorazepam (Ativan Inj) 2 mg IV.PUSH Q1H PRN PRN Reason: for CIWA 15-20 Miscellaneous (Pill Splitter) 1 each OTHER UNSCH [facility] Miscellaneous Information (Mis Nursing Information) 0 each OTHER UNSCH PRN PRN Reason: SEE LABEL COMMENTS Stop: 01/17/18 14:19 Ondansetron HCl (Zofran Inj) 4 mg IV.PUSH Q6H PRN PRN Reason: nausea and vomiting Last Admin: 01/16/18 03:25 Dose: 4 mg Pantoprazole Sodium (Protonix Inj) 40 mg IV.PUSH BID [facility] Last Admin: 01/16/18 22:32 Dose: 40 mg Pravastatin Sodium (Pravachol) 40 mg PO QPM [facility] Last Admin: 01/16/18 18:57 Dose: 40 mg Senna/Docusate Sodium (Joanne-Colace) 1 tab PO BID [facility] Last Admin: 01/16/18 22:32 Dose: 1 tab Sennosides (Senokot) 17.2 mg PO Q12H PRN PRN Reason: Moderate Constipation Sodium Chloride (Ns Flush) 2 ml IV.FLUSH PRN PRN PRN Reason: FLUSH AFTER USING IV ACCESS Last Admin: 01/15/18 22:13 Dose: 2 ml Allergies Allergy/AdvReac Type Severity Reaction Status Date / Time morphine Allergy Severe Shortness Verified 11/13/17 13:22 of Breath buspirone Allergy Intermediate Numbness Verified 11/13/17 13:22 Home Medications Medication Instructions Recorded Confirmed Type amlodipine 5 mg PO DAILY 11/13/17 01/15/18 History aspirin 81 mg PO DAILY 11/13/17 01/15/18 History atenolol 50 mg PO DAILY 11/13/17 01/15/18 History bumetanide 0.5 mg PO DAILY 11/13/17 01/15/18 History divalproex [Depakote] 500 mg PO DAILY 11/13/17 01/15/18 History donepezil 5 mg PO DAILY 11/13/17 01/15/18 History insulin NPH and regular human 1 sliding scale dose SUB-Q UD 11/13/17 01/15/18 History [Novolin 70/30 U-100 Insulin] lanthanum 500 mg PO DAILY 11/13/17 01/15/18 History lisinopril 40 mg PO DAILY 11/13/17 01/15/18 History lorazepam [Ativan] 0.5 mg PO BID 11/13/17 01/15/18 History mesalamine [Lialda] 1.2 g PO BID 11/13/17 01/15/18 History simvastatin 20 mg PO QPM 11/13/17 01/15/18 History tramadol 50 mg PO Q6H PRN 11/13/17 01/15/18 History vit B,Y-LV-sgou-selen-vit D3-E 1 tab PO DAILY 11/13/17 01/15/18 History [RenaPlex-D] Physical Exam Vital signs: Vital Signs 01/16/18 14:14 01/16/18 14:30 01/16/18 14:45 Temperature 99.2 F Pulse Rate 90 88 87 Respiratory Rate 23 18 14 Blood Pressure 171/98 H 160/93 H 149/87 H Pulse Oximetry 100 94 L 96 01/16/18 15:00 01/16/18 15:15 01/16/18 15:30 Temperature Pulse Rate 85 86 85 Respiratory Rate 21 18 13 Blood Pressure 149/91 H 153/94 H 164/99 H Pulse Oximetry 97 97 97 01/16/18 15:45 01/16/18 16:00 01/16/18 16:15 Temperature 98.9 F Pulse Rate 85 85 83 Respiratory Rate 9 L 13 14 Blood Pressure 168/93 H 157/94 H 167/94 H Pulse Oximetry 97 98 99 01/16/18 17:00 01/16/18 20:00 01/17/18 00:00 Temperature 98.9 F 98.0 F 98.0 F Pulse Rate 73 80 80 Respiratory Rate 18 20 20 Blood Pressure 158/87 H 158/89 H 158/89 H Pulse Oximetry 96 100 100 01/17/18 04:00 Temperature 98.0 F Pulse Rate 93 H Respiratory Rate 20 Blood Pressure 159/95 H Pulse Oximetry 98 Intake & Output 01/16/18 01/17/18 01/17/18 18:59 06:59 18:59 Intake Total 1000 / 1000 762 / 762 Balance 1000 / 1000 762 / 762 Weight 99.79 kg Intake: IV 1000 / 1000 100 / 100 D5W/Normal Saline Inj 1,000 ML 1000 / 1000 @ 80 mls/hr IV.CONT .[id number] [facility] Rx#:[id number] Cipro 200 MG/100 ML Inj 200 mg 100 / 100 In 100 ml @ 100 mls/hr IV.SIG Q12H [facility] Rx#:[id number] Oral 662 / 662 Other: # Voids 3 Date of Last Bowel Movement 01/15/18 - Constitutional no acute distress - Detailed ENT Exam Ear: Absent: canal tenderness, canal discharge Nose: Absent: sinus tenderness, nasal deviation Nasal/Nares: Bilateral normal inspection Oropharynx: Absent: lesions, post pharyngeal erythema Oral mucosa: Present: moist. Absent: lesions Tonsil: Bilateral normal inspection (no significant tonsil tissue) Tongue: Absent: abnormal appearance Comments: Trans-oral fiberoptic laryngoscopy completed. Vocal cords mobile and close well. No mass or lesion. - Routine Neck Exam Present: supple, full ROM Assessment and Plan - Plan GI reports incidental finding of laryngeal lesion. Patient has no complaints. CT neck is negative. No mass visualized on flex laryngoscopy. Patient reassured. Pulmonary starting inhalers. This may help post nasal drip feeling in throat. Can follow as outpatient for post nasal drip. ENT prn.
[2018-01-17 07:38] LABS: INR 1.2 Ratio; Prothrombin Time 12.6 sec (9.8-11.6)
[2018-01-17 07:43] LABS: Baso % (Auto) 0.3 % (0.0-2.0); Eos % (Auto) 0.6 % (0.0-4.0); Hematocrit 33.7 % (39.0-51.0); Hemoglobin 11.3 gm/dL (13.0-17.0); Lymph # (Auto) 0.4 th/mm3 (1.0-4.8); Lymph % (Auto) 5.4 % (9.0-44.0); Mean Corpuscular HGB Conc 33.6 % (32.0-36.0); Mean Corpuscular Hemoglobin 26.3 pg (27.0-34.0); Mean Corpuscular Volume 78.3 fL (80.0-100.0); Mean Platelet Volume 8.2 fL (7.0-11.0); Mono # (Auto) 0.6 th/mm3 (0.0-0.9); Mono % (Auto) 9.2 % (0.0-8.0); Neut # (Auto) 5.6 th/mm3 (1.8-7.7); Neut % (Auto) 84.5 % (16.0-70.0); Platelet Count 68 th/mm3 (150-450); Red Cell Distribution Width 17.4 % (11.6-17.2); White Blood Count 6.6 th/mm3 (4.0-11.0)
[2018-01-17 07:58] LABS: Albumin 3.5 g/dL (3.4-5.0); Anion Gap 9 meq/L (5-15); Aspartate Aminotransferase 28 U/L (15-37); Blood Urea Nitrogen 4 mg/dL (7-18); Carbon Dioxide 29.1 meq/L (21.0-32.0); Chloride 103 meq/L (98-107); Glomerular Filtration Rate Greater Than 89 mL/min (>89); Glucose,Random 168 mg/dL (74-106); Potassium 3.7 meq/L (3.5-5.1); Sodium 141 meq/L (136-145)
[2018-01-17 07:59] LABS: Alanine Aminotransferase 22 U/L (12-78)
[2018-01-17 08:04] LABS: Alkaline Phosphatase 136 U/L (45-117); Total Protein 7.4 g/dL (6.4-8.2)
[2018-01-17 08:16] LABS: Platelet Morphology Normal (Normal)
[2018-01-17] MEDS: Senna/Docusate Sodium 8.6/50 MG Tablet PO SCH ×3 (08:45→21:23)
[2018-01-17] MEDS: Atenolol 50 MG Tablet PO SCH (08:45)
[2018-01-17] MEDS: Lisinopril 20 MG Tablet PO SCH (08:45)
[2018-01-17] MEDS: amLODIPine 5 MG Tablet PO SCH (08:46)
[2018-01-17] MEDS: Pantoprazole Inj 40 MG Vial IV.PUSH SCH ×3 (08:46→21:23)
[2018-01-17] MEDS: LORazepam 1 MG Tablet PO PRN ×3 (09:02→18:08)
[2018-01-17] MEDS: Octreotide Inj 500 MCG in Sodium Chlor 0.9% Inj 500 ML IV.CONT SCH (10:03)
--- NOTE | 2018-01-17 10:19 | P.PNFP ---
Subjective Interval history: Patient drowsy this morning just waking up. Has mild left side abdominal pain. Complained of nausea overnight that improved with medication but disrupted his sleep. Has had very little vomiting (less than table spoon). No blood. Has been able to tolerate liquid diet. <Irma Zhang C - 01/17/18 10:19> Results - Labs Result diagrams: 01/17/18 07:04 01/17/18 07:04 <Florian Ritchie - 01/17/18 19:31> Abnormal lab results 01/17/18 01/17/18 01/17/18 Range/Units 03:13 07:04 07:04 RBC (4.50-5.90) mil/mm3 Hgb (13.0-17.0) gm/dL Hct (39.0-51.0) % MCV (80.0-100.0) fL MCH (27.0-34.0) pg RDW (11.6-17.2) % Plt Count (150-450) th/mm3 Neut % (Auto) (16.0-70.0) % Lymph % (Auto) (9.0-44.0) % [place] % (Auto) (0.0-8.0) % Lymph # (Auto) (1.0-4.8) th/mm3 Platelet Estimate (Normal) PT 12.6 H (9.8-11.6) sec BUN (7-18) mg/dL POC Glucose 156 H (68-110) mg/dl Random Glucose (74-106) mg/dL Calcium (8.5-10.1) mg/dL Total Bilirubin (0.2-1.0) mg/dL Alkaline Phosphatase (45-117) U/L Ammonia 47 H (11-32) mcmol/L 01/17/18 01/17/18 01/17/18 Range/Units 07:04 07:04 07:51 RBC 4.30 L (4.50-5.90) mil/mm3 Hgb 11.3 L (13.0-17.0) gm/dL Hct 33.7 L (39.0-51.0) % MCV 78.3 L (80.0-100.0) fL MCH 26.3 L (27.0-34.0) pg RDW 17.4 H (11.6-17.2) % Plt Count 68 L (150-450) th/mm3 Neut % (Auto) 84.5 H (16.0-70.0) % Lymph % (Auto) 5.4 L (9.0-44.0) % [place] % (Auto) 9.2 H (0.0-8.0) % Lymph # (Auto) 0.4 L (1.0-4.8) th/mm3 Platelet Estimate Low L (Normal) PT (9.8-11.6) sec BUN 4 L (7-18) mg/dL POC Glucose 169 H (68-110) mg/dl Random Glucose 168 H (74-106) mg/dL Calcium 8.0 L (8.5-10.1) mg/dL Total Bilirubin 1.2 H (0.2-1.0) mg/dL Alkaline Phosphatase 136 H (45-117) U/L Ammonia (11-32) mcmol/L 01/17/18 01/17/18 Range/Units 13:16 17:00 RBC (4.50-5.90) mil/mm3 Hgb (13.0-17.0) gm/dL Hct (39.0-51.0) % MCV (80.0-100.0) fL MCH (27.0-34.0) pg RDW (11.6-17.2) % Plt Count (150-450) th/mm3 Neut % (Auto) (16.0-70.0) % Lymph % (Auto) (9.0-44.0) % [place] % (Auto) (0.0-8.0) % Lymph # (Auto) (1.0-4.8) th/mm3 Platelet Estimate (Normal) PT (9.8-11.6) sec BUN (7-18) mg/dL POC Glucose 139 H 209 H (68-110) mg/dl Random Glucose (74-106) mg/dL Calcium (8.5-10.1) mg/dL Total Bilirubin (0.2-1.0) mg/dL Alkaline Phosphatase (45-117) U/L Ammonia (11-32) mcmol/L Short CBC 01/17/18 Range/Units 07:04 WBC 6.6 (4.0-11.0) th/mm3 Hgb 11.3 L (13.0-17.0) gm/dL Hct 33.7 L (39.0-51.0) % Plt Count 68 L (150-450) th/mm3 BMP 01/17/18 07:04 Sodium 141 Potassium 3.7 Chloride 103 Carbon Dioxide 29.1 BUN 4 L Creatinine 0.73 Calcium 8.0 L Liver Function 01/17/18 Range/Units 07:04 Total Bilirubin 1.2 H (0.2-1.0) mg/dL AST 28 (15-37) U/L ALT 22 (12-78) U/L Alkaline Phosphatase 136 H (45-117) U/L Albumin 3.5 (3.4-5.0) g/dL <Young,Florian L - 01/17/18 19:31> Abnormal lab results 01/16/18 01/16/18 01/17/18 Range/Units 14:15 15:35 03:13 RBC 4.49 L (4.50-5.90) mil/mm3 Hgb 11.7 L (13.0-17.0) gm/dL Hct 35.9 L (39.0-51.0) % MCV 79.8 L (80.0-100.0) fL MCH 26.0 L (27.0-34.0) pg RDW 17.4 H (11.6-17.2) % Plt Count 84 L (150-450) th/mm3 Neut % (Auto) 77.5 H (16.0-70.0) % Lymph % (Auto) 8.3 L (9.0-44.0) % [place] % (Auto) 12.3 H (0.0-8.0) % Lymph # (Auto) 0.6 L (1.0-4.8) th/mm3 Platelet Estimate (Normal) PT (9.8-11.6) sec BUN (7-18) mg/dL POC Glucose 135 H 156 H (68-110) mg/dl Random Glucose (74-106) mg/dL Calcium (8.5-10.1) mg/dL Total Bilirubin (0.2-1.0) mg/dL Alkaline Phosphatase (45-117) U/L Ammonia (11-32) mcmol/L 01/17/18 01/17/18 01/17/18 Range/Units 07:04 07:04 07:04 RBC 4.30 L (4.50-5.90) mil/mm3 Hgb 11.3 L (13.0-17.0) gm/dL Hct 33.7 L (39.0-51.0) % MCV 78.3 L (80.0-100.0) fL MCH 26.3 L (27.0-34.0) pg RDW 17.4 H (11.6-17.2) % Plt Count 68 L (150-450) th/mm3 Neut % (Auto) 84.5 H (16.0-70.0) % Lymph % (Auto) 5.4 L (9.0-44.0) % [place] % (Auto) 9.2 H (0.0-8.0) % Lymph # (Auto) 0.4 L (1.0-4.8) th/mm3 Platelet Estimate Low L (Normal) PT 12.6 H (9.8-11.6) sec BUN (7-18) mg/dL POC Glucose (68-110) mg/dl Random Glucose (74-106) mg/dL Calcium (8.5-10.1) mg/dL Total Bilirubin (0.2-1.0) mg/dL Alkaline Phosphatase (45-117) U/L Ammonia 47 H (11-32) mcmol/L 18 01/17/18 Range/Units 07:04 07:51 RBC (4.50-5.90) mil/mm3 Hgb (13.0-17.0) gm/dL Hct (39.0-51.0) % MCV (80.0-100.0) fL MCH (27.0-34.0) pg RDW (11.6-17.2) % Plt Count (150-450) th/mm3 Neut % (Auto) (16.0-70.0) % Lymph % (Auto) (9.0-44.0) % [place] % (Auto) (0.0-8.0) % Lymph # (Auto) (1.0-4.8) th/mm3 Platelet Estimate (Normal) PT (9.8-11.6) sec BUN 4 L (7-18) mg/dL POC Glucose 169 H (68-110) mg/dl Random Glucose 168 H (74-106) mg/dL Calcium 8.0 L (8.5-10.1) mg/dL Total Bilirubin 1.2 H (0.2-1.0) mg/dL Alkaline Phosphatase 136 H (45-117) U/L Ammonia (11-32) mcmol/L Short CBC 01/16/18 01/17/18 Range/Units 15:35 07:04 WBC 6.7 D 6.6 (4.0-11.0) th/mm3 Hgb 11.7 L 11.3 L (13.0-17.0) gm/dL Hct 35.9 L 33.7 L (39.0-51.0) % Plt Count 84 L 68 L (150-450) th/mm3 BMP 01/17/18 07:04 Sodium 141 Potassium 3.7 Chloride 103 Carbon Dioxide 29.1 BUN 4 L Creatinine 0.73 Calcium 8.0 L Liver Function 01/17/18 Range/Units 07:04 Total Bilirubin 1.2 H (0.2-1.0) mg/dL AST 28 (15-37) U/L ALT 22 (12-78) U/L Alkaline Phosphatase 136 H (45-117) U/L Albumin 3.5 (3.4-5.0) g/dL <Irma Zhang - 01/17/18 10:19> - Imaging Impressions Abdomen X-Ray 01/16/18 00:00 CONCLUSION: 1. 4 mm linear metallic density in the right mid quadrant possibly representing a small surgical clip. 2. Otherwise, unremarkable exam. Chest CT 01/16/18 00:00 CONCLUSION: 1. Mild infiltrates are noted in the posterior lower lung hussein bilaterally suggestive of atelectasis. Otherwise, lung hussein are grossly clear. 2. Nonspecific 1.5 cm lymph node in the anterior superior mediastinum. 3. Nonspecific thickening involving the distal esophagus. If clinically indicated, a barium swallow could be performed on a nonemergent outpatient basis. Soft Tissue Neck CT 01/16/18 00:00 CONCLUSION: 1. Grossly unremarkable CT soft tissue neck for patient's age. 2. Nonspecific 1.5 cm lymph node in the anterior superior mediastinum. <Irma Zhang - 01/17/18 10:19> Physical Exam Vital signs: Vital Signs 01/16/18 20:00 01/17/18 00:00 01/17/18 04:00 Temperature 98.0 F 98.0 F 98.0 F Pulse Rate 80 80 93 H Respiratory Rate 20 20 20 Blood Pressure 158/89 H 158/89 H 159/95 H Pulse Oximetry 100 100 98 01/17/18 08:00 01/17/18 08:45 01/17/18 12:00 Temperature 97.1 F L 98.3 F Pulse Rate 90 80 Respiratory Rate 18 18 16 Blood Pressure 148/83 H 145/89 H Pulse Oximetry 96 98 01/17/18 16:00 Temperature 98.0 F Pulse Rate 88 Respiratory Rate 16 Blood Pressure 150/94 H Pulse Oximetry 96 Intake & Output 01/17/18 01/17/18 01/18/18 06:59 18:59 06:59 Intake Total 762 / 762 600.5 / 600.5 Balance 762 / 762 600.5 / 600.5 Intake: IV 100 / 100 600.5 / 600.5 SandoSTATIN Inj 500 MCG In NS 500.5 / 500.5 Inj 500 ML @ 25 MCG/HR 25.02 mls/hr IV.CONT .Q20H1M [facility] Rx#: [id number] Cipro 200 MG/100 ML Inj 200 mg 100 / 100 100 / 100 In 100 ml @ 100 mls/hr IV.SIG Q12H [facility] Rx#:[id number] Oral 662 / 662 Other: # Voids 3 Date of Last Bowel Movement 01/15/18 01/15/18 <Florian Ritchie L - 01/17/18 19:31> Vital Signs 01/16/18 14:14 01/16/18 14:30 01/16/18 14:45 Temperature 99.2 F Pulse Rate 90 88 87 Respiratory Rate 23 18 14 Blood Pressure 171/98 H 160/93 H 149/87 H Pulse Oximetry 100 94 L 96 01/16/18 15:00 01/16/18 15:15 01/16/18 15:30 Temperature Pulse Rate 85 86 85 Respiratory Rate 21 18 13 Blood Pressure 149/91 H 153/94 H 164/99 H Pulse Oximetry 97 97 97 01/16/18 15:45 01/16/18 16:00 01/16/18 16:15 Temperature 98.9 F Pulse Rate 85 85 83 Respiratory Rate 9 L 13 14 Blood Pressure 168/93 H 157/94 H 167/94 H Pulse Oximetry 97 98 99 01/16/18 17:00 01/16/18 20:00 01/17/18 00:00 Temperature 98.9 F 98.0 F 98.0 F Pulse Rate 73 80 80 Respiratory Rate 18 20 20 Blood Pressure 158/87 H 158/89 H 158/89 H Pulse Oximetry 96 100 100 01/17/18 04:00 01/17/18 08:00 Temperature 98.0 F 97.1 F L Pulse Rate 93 H 90 Respiratory Rate 20 18 Blood Pressure 159/95 H 148/83 H Pulse Oximetry 98 96 Intake & Output 01/16/18 01/17/18 01/17/18 18:59 06:59 18:59 Intake Total 1000 / 1000 762 / 762 500.5 / 500.5 Balance 1000 / 1000 762 / 762 500.5 / 500.5 Weight 99.79 kg Intake: IV 1000 / 1000 100 / 100 500.5 / 500.5 D5W/Normal Saline Inj 1,000 ML 1000 / 1000 @ 80 mls/hr IV.CONT .[id number] [facility] Rx#:[id number] SandoSTATIN Inj 500 MCG In NS 500.5 / 500.5 Inj 500 ML @ 25 MCG/HR 25.02 mls/hr IV.CONT .Q20H1M [facility] Rx#: [id number] Cipro 200 MG/100 ML Inj 200 mg 100 / 100 In 100 ml @ 100 mls/hr IV.SIG Q12H [facility] Rx#:[id number] Oral 662 / 662 Other: # Voids 3 Date of Last Bowel Movement 01/15/18 <Irma Zhang 01/17/18 10:19> Narrative: GENERAL: SKIN: Warm and dry. HEAD: Normocephalic, Some dried blood on lips. Dried blood pockets inside mouth of left upper and lower molar/jaw. EYES: No scleral icterus. No injection or drainage. NECK: Supple, trachea midline. No JVD or lymphadenopathy. CARDIOVASCULAR: Regular rate and rhythm without murmurs, gallops, or rubs. RESPIRATORY: Breath sounds equal bilaterally. No accessory muscle use. GASTROINTESTINAL: Abdomen soft, nondistended. Some tenderness diffusely of lower abdomen MUSCULOSKELETAL: No cyanosis, or edema. BACK: Nontender without obvious deformity. No CVA tenderness. <Irma Zhang - 01/17/18 10:19> Assessment and Plan - Assessment (1) Abdominal pain Code(s): R10.9 - Unspecified abdominal pain Status: Acute (2) Esophageal varices in cirrhosis Code(s): K74.60 - Unspecified cirrhosis of liver; I85.10 - Secondary esophageal varices without bleeding Status: Chronic (3) Hypertension Code(s): I10 - Essential (primary) hypertension Status: Chronic (4) Alcohol abuse Code(s): F10.10 - Alcohol abuse, uncomplicated Status: Chronic (5) Depression with anxiety Code(s): F41.8 - Other specified anxiety disorders Status: Chronic (6) Cough Code(s): R05 - Cough Status: Acute (7) Diabetes Code(s): E11.9 - Type 2 diabetes mellitus without complications Status: Chronic (8) Nutrition, metabolism, and development symptoms Code(s): R63.8 - Other symptoms and signs concerning food and fluid intake Status: Acute <Florian Ritchie - 01/17/18 19:31> (1) Abdominal pain Code(s): R10.9 - Unspecified abdominal pain Status: Acute Plan: Patient is a 52-year-old male with past medical history of alcoholism, cirrhosis and esophageal variceal GI bleed who presented to the ED with complaint of umbilical abdominal pain, nausea, and vomiting for the past 2 days. Patient reports tooth extraction 2 days prior to admission and malaise ( abdominal pain, vomiting x10 times with questionable blood in vomit which he attributes to tooth extraction however due to patient's history of upper GI bleed due to esophageal varices will consult GI for further evaluation). On admission patient was slightly hypertensive however he was afebrile and no leukocytosis appreciated on CBC. CT abdomen: Showing edema of mesenteric, small metallic object in the transverse colon (which may have been part of patient's dental filling) and cirrhosis with portal hypertension and significant esophageal varices. Zofran for nausea Pain controlled with hydromorphone PRN which patient has had in the past without any adverse reactions Protonix IV twice daily Cipro for prophylaxis GI consulted for further recommendations Protonix, prophylactic antibiotic and octreotide drip H&H stable and abdominal ultrasound negative for ascites EGD procedure today showed: Esophageal varices grade 2 status post 4 band applied, biopsies taken from gastric antrum. Repeat EGD in 3 months. 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 Due to the difficulty in placing IV prior to GI procedure a central line order has been placed. Follow-up neck CT no abnormal findings and patient started on clear liquid diet. GI recommended starting non-selective beta deena and follow up outpatient in two weeks. (2) Esophageal varices in cirrhosis Code(s): K74.60 - Unspecified cirrhosis of liver; I85.10 - Secondary esophageal varices without bleeding Status: Chronic Plan: See plan above for abdominal pain (3) Hypertension Code(s): I10 - Essential (primary) hypertension Status: Chronic Plan: Resume home medications Continue to monitor blood pressure. (4) Alcohol abuse Code(s): F10.10 - Alcohol abuse, uncomplicated Status: Chronic Plan: Patient with extensive alcohol abuse history for the past 30 years complicated by cirrhosis and esophageal variceal GI bleed. Currently receiving treatment for alcoholism at [facility] since July of this year. Reports he is taking a medication to help with his alcoholism however he has not been compliant and has been drinking at least 2 beers per day. Presented to the ED with severe abdominal pain, vomiting and nausea. Continue with CIWA protocol Continue to monitor vital signs (5) Depression with anxiety Code(s): F41.8 - Other specified anxiety disorders Status: Chronic Plan: Resume home medications (6) Cough Code(s): R05 - Cough Status: Acute Plan: Patient with history of chronic cough and wheezing. -GI saw abnormal vocal cords for EGD so consulted Pulmonology and ENT -Pulmonology: recommended aerosol treatment and tessalon 200 mg TID and smoking cessation. Recommended follow up pulmonary function studies once acute illness treated. -ENT: CT neck was negative. No mass visualized with laryngoscopy. Can follow up OP for post nasal drip (7) Diabetes Code(s): E11.9 - Type 2 diabetes mellitus without complications Status: Chronic Plan: Sliding scale insulin low Accu-Cheks Hypoglycemia protocol (8) Nutrition, metabolism, and development symptoms Code(s): R63.8 - Other symptoms and signs concerning food and fluid intake Status: Acute Plan: Fluids: none Electrolytes: Replete as needed Diet: Clear liquid diet DVT prophylaxis: SCDs <Irma Zhang - 01/17/18 15:01> - Attending Attestation The exam, history, and the medical decision-making described in the above note were completed with the assistance of the resident physician. I reviewed and agree with the findings presented. I attest that I had a [id number] encounter with the patient on the same day, and personally performed and documented my assessment and findings in the medical record. I saw the patient in the afternoon. At that time, he is telling me he has pressure in his chest. We will obtain stat troponins and EKG. I suspect, however, that this pain is due to reflux versus recent banding procedure given his description of the pain. Not having shortness of breath. Feels nauseous at times but not vomiting. At the time I saw him he has minimal withdrawals. No abdominal pain. Overall feels better than when he came in. He has regular diet at bedside but is not having much appetite right now. <Florian Ritchie - 01/17/18 19:31>
--- NOTE | 2018-01-17 14:17 | P.PNGI ---
Subjective Interval history: Patient laying supine in bed awake States hungry Denies discomfort Post EGD with banding Denies bleeding <Celia Wing - Last Filed: 01/17/18 14:01> Physical Exam Vital signs: Vital Signs 01/16/18 14:14 01/16/18 14:30 01/16/18 14:45 Temperature 99.2 F Pulse Rate 90 88 87 Respiratory Rate 23 18 14 Blood Pressure 171/98 H 160/93 H 149/87 H Pulse Oximetry 100 94 L 96 01/16/18 15:00 01/16/18 15:15 01/16/18 15:30 Temperature Pulse Rate 85 86 85 Respiratory Rate 21 18 13 Blood Pressure 149/91 H 153/94 H 164/99 H Pulse Oximetry 97 97 97 01/16/18 15:45 01/16/18 16:00 01/16/18 16:15 Temperature 98.9 F Pulse Rate 85 85 83 Respiratory Rate 9 L 13 14 Blood Pressure 168/93 H 157/94 H 167/94 H Pulse Oximetry 97 98 99 01/16/18 17:00 01/16/18 20:00 01/17/18 00:00 Temperature 98.9 F 98.0 F 98.0 F Pulse Rate 73 80 80 Respiratory Rate 18 20 20 Blood Pressure 158/87 H 158/89 H 158/89 H Pulse Oximetry 96 100 100 01/17/18 04:00 01/17/18 08:00 01/17/18 08:45 Temperature 98.0 F 97.1 F L Pulse Rate 93 H 90 Respiratory Rate 20 18 18 Blood Pressure 159/95 H 148/83 H Pulse Oximetry 98 96 01/17/18 12:00 Temperature 98.3 F Pulse Rate 80 Respiratory Rate 16 Blood Pressure 145/89 H Pulse Oximetry 98 Intake & Output 01/16/18 01/17/18 01/17/18 18:59 06:59 18:59 Intake Total 1000 / 1000 762 / 762 500.5 / 500.5 Balance 1000 / 1000 762 / 762 500.5 / 500.5 Weight 99.79 kg Intake: IV 1000 / 1000 100 / 100 500.5 / 500.5 D5W/Normal Saline Inj 1,000 ML 1000 / 1000 @ 80 mls/hr IV.CONT .[id number] [facility] Rx#:[id number] SandoSTATIN Inj 500 MCG In NS 500.5 / 500.5 Inj 500 ML @ 25 MCG/HR 25.02 mls/hr IV.CONT .Q20H1M [facility] Rx#: [id number] Cipro 200 MG/100 ML Inj 200 mg 100 / 100 In 100 ml @ 100 mls/hr IV.SIG Q12H [facility] Rx#:[id number] Oral 662 / 662 Other: # Voids 3 Date of Last Bowel Movement 01/15/18 01/15/18 - Constitutional no acute distress - Routine HEENT Exam Head: Present: normocephalic Eye: Present: conjunctival icterus - Routine Respiratory Exam Present: CTA bilaterally. Absent: accessory muscle use - Routine Abdominal Exam Present: soft, normoactive bowel sounds. Absent: tenderness, distended, guarding, firm - Routine Skin Exam Present: dry, warm - Routine Neurological Exam Present: alert, oriented X3 - Routine Psychiatric Exam Present: normal affect, cooperative <Wing,Celia - Last Filed: 01/17/18 14:01> Vital signs: Vital Signs 01/16/18 17:00 01/16/18 20:00 01/17/18 00:00 Temperature 98.9 F 98.0 F 98.0 F Pulse Rate 73 80 80 Respiratory Rate 18 20 20 Blood Pressure 158/87 H 158/89 H 158/89 H Pulse Oximetry 96 100 100 01/17/18 04:00 01/17/18 08:00 01/17/18 08:45 Temperature 98.0 F 97.1 F L Pulse Rate 93 H 90 Respiratory Rate 20 18 18 Blood Pressure 159/95 H 148/83 H Pulse Oximetry 98 96 01/17/18 12:00 Temperature 98.3 F Pulse Rate 80 Respiratory Rate 16 Blood Pressure 145/89 H Pulse Oximetry 98 Intake & Output 01/16/18 01/17/18 01/17/18 18:59 06:59 18:59 Intake Total 1000 / 1000 762 / 762 500.5 / 500.5 Balance 1000 / 1000 762 / 762 500.5 / 500.5 Weight 99.79 kg Intake: IV 1000 / 1000 100 / 100 500.5 / 500.5 D5W/Normal Saline Inj 1,000 ML 1000 / 1000 @ 80 mls/hr IV.CONT .[id number] [facility] Rx#:[id number] SandoSTATIN Inj 500 MCG In NS 500.5 / 500.5 Inj 500 ML @ 25 MCG/HR 25.02 mls/hr IV.CONT .Q20H1M [facility] Rx#: [id number] Cipro 200 MG/100 ML Inj 200 mg 100 / 100 In 100 ml @ 100 mls/hr IV.SIG Q12H [facility] Rx#:[id number] Oral 662 / 662 Other: # Voids 3 Date of Last Bowel Movement 01/15/18 01/15/18 <Ina May - Last Filed: 01/17/18 16:23> Results - Labs CBC & Chem 7: 01/17/18 07:04 01/17/18 07:04 Laboratory Results - last 24 hr 01/16/18 01/16/18 01/16/18 14:15 15:35 15:35 WBC 6.7 D RBC 4.49 L Hgb 11.7 L Hct 35.9 L MCV 79.8 L MCH 26.0 L MCHC 32.6 RDW 17.4 H Plt Count 84 L MPV 8.5 Prelim Diff (Auto) Slide review pending Neut % (Auto) 77.5 H Lymph % (Auto) 8.3 L Antelope % (Auto) 12.3 H Eos % (Auto) 1.3 Baso % (Auto) 0.6 Neut # (Auto) 5.2 Lymph # (Auto) 0.6 L Antelope # (Auto) 0.8 Eos # (Auto) 0.1 Baso # (Auto) 0.0 WBC Differential . Diff Scan Auto diff confirmed Differential Comment . Platelet Estimate Platelet Morphology PT INR Sodium Potassium Chloride Carbon Dioxide Anion Gap BUN Creatinine Estimated GFR POC Glucose 135 H Random Glucose Calcium Total Bilirubin AST ALT Alkaline Phosphatase Ammonia Total Protein Albumin Blood Type A Positive Antibody Screen Negative 01/16/18 01/17/18 01/17/18 22:21 03:13 07:04 WBC RBC Hgb Hct MCV MCH MCHC RDW Plt Count MPV Prelim Diff (Auto) Neut % (Auto) Lymph % (Auto) Antelope % (Auto) Eos % (Auto) Baso % (Auto) Neut # (Auto) Lymph # (Auto) Antelope # (Auto) Eos # (Auto) Baso # (Auto) WBC Differential Diff Scan Differential Comment Platelet Estimate Platelet Morphology PT 12.6 H INR 1.2 Sodium Potassium Chloride Carbon Dioxide Anion Gap BUN Creatinine Estimated GFR POC Glucose 109 156 H Random Glucose Calcium Total Bilirubin AST ALT Alkaline Phosphatase Ammonia Total Protein Albumin Blood Type Antibody Screen 01/17/18 01/17/18 01/17/18 07:04 07:04 07:04 WBC 6.6 RBC 4.30 L Hgb 11.3 L Hct 33.7 L MCV 78.3 L MCH 26.3 L MCHC 33.6 RDW 17.4 H Plt Count 68 L MPV 8.2 Prelim Diff (Auto) Slide review pending Neut % (Auto) 84.5 H Lymph % (Auto) 5.4 L Antelope % (Auto) 9.2 H Eos % (Auto) 0.6 Baso % (Auto) 0.3 Neut # (Auto) 5.6 Lymph # (Auto) 0.4 L Antelope # (Auto) 0.6 Eos # (Auto) 0.0 Baso # (Auto) 0.0 WBC Differential . Diff Scan Auto diff confirmed Differential Comment . Platelet Estimate Low L Platelet Morphology Normal PT INR Sodium 141 Potassium 3.7 Chloride 103 Carbon Dioxide 29.1 Anion Gap 9 BUN 4 L Creatinine 0.73 Estimated GFR Greater than 89 POC Glucose Random Glucose 168 H Calcium 8.0 L Total Bilirubin 1.2 H AST 28 ALT 22 Alkaline Phosphatase 136 H Ammonia 47 H Total Protein 7.4 D Albumin 3.5 Blood Type Antibody Screen 01/17/18 01/17/18 07:51 13:16 WBC RBC Hgb Hct MCV MCH MCHC RDW Plt Count MPV Prelim Diff (Auto) Neut % (Auto) Lymph % (Auto) Antelope % (Auto) Eos % (Auto) Baso % (Auto) Neut # (Auto) Lymph # (Auto) Antelope # (Auto) Eos # (Auto) Baso # (Auto) WBC Differential Diff Scan Differential Comment Platelet Estimate Platelet Morphology PT INR Sodium Potassium Chloride Carbon Dioxide Anion Gap BUN Creatinine Estimated GFR POC Glucose 169 H 139 H Random Glucose Calcium Total Bilirubin AST ALT Alkaline Phosphatase Ammonia Total Protein Albumin Blood Type Antibody Screen - Imaging Impressions Abdomen X-Ray 01/16/18 00:00 CONCLUSION: 1. 4 mm linear metallic density in the right mid quadrant possibly representing a small surgical clip. 2. Otherwise, unremarkable exam. Chest CT 01/16/18 00:00 CONCLUSION: 1. Mild infiltrates are noted in the posterior lower lung hussein bilaterally suggestive of atelectasis. Otherwise, lung hussein are grossly clear. 2. Nonspecific 1.5 cm lymph node in the anterior superior mediastinum. 3. Nonspecific thickening involving the distal esophagus. If clinically indicated, a barium swallow could be performed on a nonemergent outpatient basis. Soft Tissue Neck CT 01/16/18 00:00 CONCLUSION: 1. Grossly unremarkable CT soft tissue neck for patient's age. 2. Nonspecific 1.5 cm lymph node in the anterior superior mediastinum. <Celia Wing - Last Filed: 01/17/18 14:01> - Labs CBC & Chem 7: 01/17/18 07:04 01/17/18 07:04 Laboratory Results - last 24 hr 01/16/18 01/16/18 01/16/18 15:35 15:35 22:21 WBC RBC Hgb Hct MCV MCH MCHC RDW Plt Count MPV Prelim Diff (Auto) Neut % (Auto) Lymph % (Auto) Antelope % (Auto) Eos % (Auto) Baso % (Auto) Neut # (Auto) Lymph # (Auto) Antelope # (Auto) Eos # (Auto) Baso # (Auto) WBC Differential . Diff Scan Auto diff confirmed Differential Comment Platelet Estimate Platelet Morphology PT INR Sodium Potassium Chloride Carbon Dioxide Anion Gap BUN Creatinine Estimated GFR POC Glucose 109 Random Glucose Calcium Total Bilirubin AST ALT Alkaline Phosphatase Ammonia Total Protein Albumin Blood Type A Positive Antibody Screen Negative 01/17/18 01/17/18 01/17/18 03:13 07:04 07:04 WBC RBC Hgb Hct MCV MCH MCHC RDW Plt Count MPV Prelim Diff (Auto) Neut % (Auto) Lymph % (Auto) Antelope % (Auto) Eos % (Auto) Baso % (Auto) Neut # (Auto) Lymph # (Auto) Antelope # (Auto) Eos # (Auto) Baso # (Auto) WBC Differential Diff Scan Differential Comment Platelet Estimate Platelet Morphology PT 12.6 H INR 1.2 Sodium Potassium Chloride Carbon Dioxide Anion Gap BUN Creatinine Estimated GFR POC Glucose 156 H Random Glucose Calcium Total Bilirubin AST ALT Alkaline Phosphatase Ammonia 47 H Total Protein Albumin Blood Type Antibody Screen 01/17/18 01/17/18 01/17/18 07:04 07:04 07:51 WBC 6.6 RBC 4.30 L Hgb 11.3 L Hct 33.7 L MCV 78.3 L MCH 26.3 L MCHC 33.6 RDW 17.4 H Plt Count 68 L MPV 8.2 Prelim Diff (Auto) Slide review pending Neut % (Auto) 84.5 H Lymph % (Auto) 5.4 L Antelope % (Auto) 9.2 H Eos % (Auto) 0.6 Baso % (Auto) 0.3 Neut # (Auto) 5.6 Lymph # (Auto) 0.4 L Antelope # (Auto) 0.6 Eos # (Auto) 0.0 Baso # (Auto) 0.0 WBC Differential . Diff Scan Auto diff confirmed Differential Comment . Platelet Estimate Low L Platelet Morphology Normal PT INR Sodium 141 Potassium 3.7 Chloride 103 Carbon Dioxide 29.1 Anion Gap 9 BUN 4 L Creatinine 0.73 Estimated GFR Greater than 89 POC Glucose 169 H Random Glucose 168 H Calcium 8.0 L Total Bilirubin 1.2 H AST 28 ALT 22 Alkaline Phosphatase 136 H Ammonia Total Protein 7.4 D Albumin 3.5 Blood Type Antibody Screen 01/17/18 13:16 WBC RBC Hgb Hct MCV MCH MCHC RDW Plt Count MPV Prelim Diff (Auto) Neut % (Auto) Lymph % (Auto) Antelope % (Auto) Eos % (Auto) Baso % (Auto) Neut # (Auto) Lymph # (Auto) Antelope # (Auto) Eos # (Auto) Baso # (Auto) WBC Differential Diff Scan Differential Comment Platelet Estimate Platelet Morphology PT INR Sodium Potassium Chloride Carbon Dioxide Anion Gap BUN Creatinine Estimated GFR POC Glucose 139 H Random Glucose Calcium Total Bilirubin AST ALT Alkaline Phosphatase Ammonia Total Protein Albumin Blood Type Antibody Screen - Imaging Impressions Abdomen X-Ray 01/16/18 00:00 CONCLUSION: 1. 4 mm linear metallic density in the right mid quadrant possibly representing a small surgical clip. 2. Otherwise, unremarkable exam. Chest CT 01/16/18 00:00 CONCLUSION: 1. Mild infiltrates are noted in the posterior lower lung hussein bilaterally suggestive of atelectasis. Otherwise, lung hussein are grossly clear. 2. Nonspecific 1.5 cm lymph node in the anterior superior mediastinum. 3. Nonspecific thickening involving the distal esophagus. If clinically indicated, a barium swallow could be performed on a nonemergent outpatient basis. Soft Tissue Neck CT 01/16/18 00:00 CONCLUSION: 1. Grossly unremarkable CT soft tissue neck for patient's age. 2. Nonspecific 1.5 cm lymph node in the anterior superior mediastinum. <Ina May - Last Filed: 01/17/18 16:23> Assessment and Plan - Plan Assessment: - Ingestion of foreign body- CT scan reports metallic foreign body in the mid transverse colon without evidence for colitis or perforation at this time. Patient reports that he thinks he swallowed part of his filling, states that he was eating a sandwich and he felt his tooth break off. - Nausea/vomiting with question of hematemesis Patient reports nausea and vomiting persistently for the past 2 days. He does report bright red blood mixed in his emesis, states that he thinks it is from his teeth extraction done 2 days ago. Exam does not reveal any active bleeding in his oral cavity. Patient also reports abdominal pain that has been persistent for the past day and a half, unable to describe the pain. Patient states that pain is worse after taking naltrexone. Despite naltrexone, patient continues to drink alcohol. He states that he had 2 beers yesterday. Pt also reports significant Ibuprofen use until less than a month ago when he was advised by his PCP to stop. Previously seen by our service for upper GIB, did have noted esophageal varices, however no active bleeding and the bleeding was actually noted to be likely secondary to Yanci-Hutton tear. EGD (11/14/17) class a esophagitis noted, scar of previous banding noted. Multiple large ulcers were found in the pylorus, biopsies taken. Normal duodenal mucosa in the duodenal bulb, second part of duodenum and third part of duodenum. 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 There is no ascites although there is diffuse mesenteric edema. This is particularly prominent near the fourth portion of the duodenum. Suspect this is dependent mesenteric edema rather than duodenitis. Pt continues to drink alcohol despite being on Naltrexone 01/17/2018 01/16/2018 EGD revealed the following findings: 1. Esophageal varices - grade 2 sp banding -4 band applied gastritis antrum-biopsy 2. Retroflexed views revealed a hiatal hernia Denies any active bleeding noted. Hemoglobin 11.3 hematocrit 33.7 platelet count 68 Plan -Clear liquid diet -Monitor for bleeding -Monitor hemoglobin and hematocrit/platelets -PPI -Continue Octeotride -Supportive care -Further recommendations to follow based on patient status and findings This patient has been seen and examined by myself and Dr. May and this note is written on her behalf - Attending Attestation Dr. May <Celia Wing - Last Filed: 01/17/18 14:01> - Attending Attestation seen, examined agree with above advance diet avoid etoh and hepatotoxics start nonselective betablockers upon dc fu gi in 4 weeks egd/banding 6-8 weeks gi will sign off call us as needed <Ina May - Last Filed: 01/17/18 16:23>
--- NOTE | 2018-01-17 16:46 | ECG ---
Date Performed: 01/16/2018 Time Performed: 14:21:33 PTAGE: 52 years EKG: Sinus rhythm Since the previous tracing, no significant change noted NORMAL ECG PREVIOUS TRACING : 01/16/2018 03.41 DOCTOR: Thomas Garcia Interpretating Date/Time 01/17/2018 16:42:22
--- NOTE | 2018-01-17 19:28 | P.PNPL ---
Subjective Interval history: 52 YO male with GIB, cirrhosis Breathing betetr Mild cough no fever Physical Exam Vital signs: Vital Signs 01/16/18 20:00 01/17/18 00:00 01/17/18 04:00 Temperature 98.0 F 98.0 F 98.0 F Pulse Rate 80 80 93 H Respiratory Rate 20 20 20 Blood Pressure 158/89 H 158/89 H 159/95 H Pulse Oximetry 100 100 98 01/17/18 08:00 01/17/18 08:45 01/17/18 12:00 Temperature 97.1 F L 98.3 F Pulse Rate 90 80 Respiratory Rate 18 18 16 Blood Pressure 148/83 H 145/89 H Pulse Oximetry 96 98 01/17/18 16:00 Temperature 98.0 F Pulse Rate 88 Respiratory Rate 16 Blood Pressure 150/94 H Pulse Oximetry 96 Intake & Output 01/17/18 01/17/18 01/18/18 06:59 18:59 06:59 Intake Total 762 / 762 600.5 / 600.5 Balance 762 / 762 600.5 / 600.5 Intake: IV 100 / 100 600.5 / 600.5 SandoSTATIN Inj 500 MCG In NS 500.5 / 500.5 Inj 500 ML @ 25 MCG/HR 25.02 mls/hr IV.CONT .Q20H1M [facility] Rx#: [id number] Cipro 200 MG/100 ML Inj 200 mg 100 / 100 100 / 100 In 100 ml @ 100 mls/hr IV.SIG Q12H [facility] Rx#:[id number] Oral 662 / 662 Other: # Voids 3 Date of Last Bowel Movement 01/15/18 01/15/18 GENERAL: WBWN NAD SKIN: Warm and dry. HEAD: Normocephalic. EYES: No scleral icterus. No injection or drainage. NECK: Supple, trachea midline. No JVD or lymphadenopathy. CARDIOVASCULAR: Regular rate and rhythm without murmurs, gallops, or rubs. RESPIRATORY: Breath sounds equal bilaterally. No accessory muscle use. GASTROINTESTINAL: Abdomen soft, non-tender, nondistended. MUSCULOSKELETAL: No cyanosis, or edema. BACK: Nontender without obvious deformity. No CVA tenderness. Assessment and Plan - Plan IMPRESSION: 1. Mild shortness of breath and cough, possibly underlying asthma. 2. Hypertension. 3. Diabetes mellitus. 4. Cirrhosis of the liver. PLAN: Aerosol nebs Cont Abx Check PFT Stable on RA
--- NOTE | 2018-01-17 19:43 | ECG ---
Date Performed: 01/17/2018 Time Performed: 18:02:45 PTAGE: 52 years EKG: Sinus rhythm NORMAL ECG No significant change from prior electrocardiogram. PREVIOUS TRACING : 01/16/2018 14.21 DOCTOR: Ritesh Guidry Interpretating Date/Time 01/17/2018 19:42:31
[2018-01-18] MEDS: Ciprofloxacin 200 MG/100 ML 200 MG/100 ML PIGGYBACK IV.SIG SCH ×5 (00:26→23:48)
[2018-01-18] MEDS: Octreotide Inj 500 MCG in Sodium Chlor 0.9% Inj 500 ML IV.CONT SCH ×4 (02:11→23:43)
[2018-01-18] MEDS: Insulin NovoLOG Aspart Correctional Sugar Inj SQ SCH ×8 (03:03→23:48)
[2018-01-18] MEDS: Benzonatate 100 MG Capsule PO SCH ×3 (03:25→21:14)
[2018-01-18 07:07] LABS: Baso % (Auto) 0.4 % (0.0-2.0); Eos # (Auto) 0.1 th/mm3 (0.0-0.4); Eos % (Auto) 2.2 % (0.0-4.0); Hemoglobin 11.3 gm/dL (13.0-17.0); Lymph # (Auto) 0.7 th/mm3 (1.0-4.8); Lymph % (Auto) 11.8 % (9.0-44.0); Mean Corpuscular HGB Conc 32.3 % (32.0-36.0); Mean Corpuscular Hemoglobin 25.8 pg (27.0-34.0); Mean Corpuscular Volume 79.9 fL (80.0-100.0); Mean Platelet Volume 8.4 fL (7.0-11.0); Mono # (Auto) 0.8 th/mm3 (0.0-0.9); Mono % (Auto) 14.1 % (0.0-8.0); Neut # (Auto) 4.2 th/mm3 (1.8-7.7); Neut % (Auto) 71.5 % (16.0-70.0); Platelet Count 71 th/mm3 (150-450); Red Blood Count 4.37 mil/mm3 (4.50-5.90); Red Cell Distribution Width 17.4 % (11.6-17.2); White Blood Count 5.9 th/mm3 (4.0-11.0)
[2018-01-18 07:24] LABS: Alkaline Phosphatase 124 U/L (45-117); Total Protein 7.1 g/dL (6.4-8.2)
[2018-01-18 07:27] LABS: Alanine Aminotransferase 19 U/L (12-78); Albumin 3.3 g/dL (3.4-5.0); Anion Gap 7 meq/L (5-15); Aspartate Aminotransferase 30 U/L (15-37); Blood Urea Nitrogen 6 mg/dL (7-18); Calcium 7.9 mg/dL (8.5-10.1); Carbon Dioxide 26.7 meq/L (21.0-32.0); Chloride 103 meq/L (98-107); Glomerular Filtration Rate Greater Than 89 mL/min (>89); Glucose,Random 147 mg/dL (74-106); Potassium 4.2 meq/L (3.5-5.1); Sodium 137 meq/L (136-145)
[2018-01-18] MEDS: amLODIPine 5 MG Tablet PO SCH ×2 (08:20→15:23)
[2018-01-18] MEDS: Lisinopril 20 MG Tablet PO SCH ×2 (08:20→15:22)
[2018-01-18] MEDS: Divalproex 500 MG DR Tablet PO SCH ×3 (08:20→15:23)
[2018-01-18] MEDS: Senna/Docusate Sodium 8.6/50 MG Tablet PO SCH ×2 (08:20→21:15)
[2018-01-18 08:29] LABS: Ovalocytes 1+; Platelet Morphology Normal (Normal)
[2018-01-18] MEDS: Pantoprazole Inj 40 MG Vial IV.PUSH SCH ×2 (10:32→21:21)
[2018-01-18 11:00] LABS: ABG Base Excess 3.5 mmol/L (-2-2); ABG PCO2 41 mmHg (38-42); ABG PO2 69 mmHg (61-120)
--- NOTE | 2018-01-18 14:24 | P.PNFP ---
Subjective Interval history: Patient seen and examined this morning. Paged this morning by nurse regarding patient being agitated, taking off gown, pulling off IV and requesting order for restraints. Patient with elevated CIWA scores of 14, 14, 15 and required 8 mg of Ativan overnight. Patient this morning given another 2 mg of Ativan due to continued agitation and withdrawal symptoms. Bedside vital signs were retaken this morning: blood pressure 159/96, heart rate 80, respiratory rate 20, O2 saturations 93%, afebrile. Patient very drowsy not able to sustain conversation. Alert and oriented x1, able to be aroused however not answering questions appropriately. Patient reported "no" when asked if he had any pain. Ammonia level, blood sugar and ABG orders were submitted. ABG within normal limits, blood glucose in the 140s-163. However ammonia levels were elevated to 70 and lactulose medication was increased to 3 times daily. Received page from nurse that charge nurse had indicated that due to patient continue agitation and requiring a lot of Ativan for control he would need to be transferred critical care. -Patient transfer order submitted -awaiting location to discuss patient case with slabber. Of note: Yesterday afternoon patient complaining of chest pain and EKG and troponin were ordered which were both normal. <Mele Recinos - 01/18/18 14:23> Results - Labs Result diagrams: 01/19/18 04:10 01/19/18 04:10 <Florian Ritchie - 01/19/18 15:27> Abnormal lab results 01/18/18 01/18/18 01/18/18 Range/Units 17:02 17:22 17:22 MCV (80.0-100.0) fL MCH (27.0-34.0) pg Plt Count (150-450) th/mm3 Gibson % (Auto) (0.0-8.0) % Gibson # (Auto) (0.0-0.9) th/mm3 Platelet Estimate (Normal) POC Glucose 121 H (68-110) mg/dl Random Glucose 111 H (74-106) mg/dL Calcium 8.3 L (8.5-10.1) mg/dL Total Bilirubin 1.2 H (0.2-1.0) mg/dL Alkaline Phosphatase 130 H (45-117) U/L Ammonia 81 H (11-32) mcmol/L Albumin 3.3 L (3.4-5.0) g/dL 01/18/18 01/18/18 01/19/18 Range/Units 20:10 23:37 04:10 MCV 79.2 L (80.0-100.0) fL MCH 26.3 L (27.0-34.0) pg Plt Count 66 L (150-450) th/mm3 Gibson % (Auto) 19.9 H (0.0-8.0) % Gibson # (Auto) 1.5 H (0.0-0.9) th/mm3 Platelet Estimate Low L (Normal) POC Glucose 139 H 200 H (68-110) mg/dl Random Glucose (74-106) mg/dL Calcium (8.5-10.1) mg/dL Total Bilirubin (0.2-1.0) mg/dL Alkaline Phosphatase (45-117) U/L Ammonia (11-32) mcmol/L Albumin (3.4-5.0) g/dL 01/19/18 01/19/18 01/19/18 Range/Units 04:10 04:10 07:16 MCV (80.0-100.0) fL MCH (27.0-34.0) pg Plt Count (150-450) th/mm3 Gibson % (Auto) (0.0-8.0) % Gibson # (Auto) (0.0-0.9) th/mm3 Platelet Estimate (Normal) POC Glucose 169 H (68-110) mg/dl Random Glucose 136 H (74-106) mg/dL Calcium 7.7 L (8.5-10.1) mg/dL Total Bilirubin 1.1 H (0.2-1.0) mg/dL Alkaline Phosphatase 130 H (45-117) U/L Ammonia 98 H (11-32) mcmol/L Albumin 3.3 L (3.4-5.0) g/dL Short CBC 01/19/18 Range/Units 04:10 WBC 7.3 (4.0-11.0) th/mm3 Hgb 13.1 (13.0-17.0) gm/dL Hct 39.6 (39.0-51.0) % Plt Count 66 L (150-450) th/mm3 BMP 01/18/18 01/19/18 17:22 04:10 Sodium 139 141 Potassium 3.8 4.0 Chloride 103 105 Carbon Dioxide 28.0 27.7 BUN 7 9 Creatinine 0.71 0.76 Calcium 8.3 L 7.7 L Liver Function 01/18/18 01/19/18 Range/Units 17:22 04:10 Total Bilirubin 1.2 H 1.1 H (0.2-1.0) mg/dL AST 27 22 (15-37) U/L ALT 21 19 (12-78) U/L Alkaline Phosphatase 130 H 130 H (45-117) U/L Albumin 3.3 L 3.3 L (3.4-5.0) g/dL <Young,Florian L - 01/19/18 15:27> Abnormal lab results 01/17/18 01/17/18 01/17/18 Range/Units 17:00 18:44 21:01 RBC (4.50-5.90) mil/mm3 Hgb (13.0-17.0) gm/dL Hct (39.0-51.0) % MCV (80.0-100.0) fL MCH (27.0-34.0) pg RDW (11.6-17.2) % Plt Count (150-450) th/mm3 Neut % (Auto) (16.0-70.0) % Gibson % (Auto) (0.0-8.0) % Lymph # (Auto) (1.0-4.8) th/mm3 Platelet Estimate (Normal) Ovalocytes (None) ABG pH (7.380-7.420) ABG HCO3 (22-26) mmol/L ABG Base Excess (-2-2) mmol/L Hemoglobin (12.0-16.0) G/DL BUN (7-18) mg/dL POC Glucose 209 H 111 H (68-110) mg/dl Random Glucose (74-106) mg/dL Calcium (8.5-10.1) mg/dL Total Bilirubin (0.2-1.0) mg/dL Alkaline Phosphatase (45-117) U/L Ammonia (11-32) mcmol/L Troponin I Less than 0.02 L (0.02-0.05) ng/mL Albumin (3.4-5.0) g/dL 01/18/18 01/18/1801/18/18 Range/Units 02:24 06:15 06:15 RBC 4.37 L (4.50-5.90) mil/mm3 Hgb 11.3 L (13.0-17.0) gm/dL Hct 35.0 L (39.0-51.0) % MCV 79.9 L (80.0-100.0) fL MCH 25.8 L (27.0-34.0) pg RDW 17.4 H (11.6-17.2) % Plt Count 71 L (150-450) th/mm3 Neut % (Auto) 71.5 H (16.0-70.0) % Gibson % (Auto) 14.1 H (0.0-8.0) % Lymph # (Auto) 0.7 L (1.0-4.8) th/mm3 Platelet Estimate Low L (Normal) Ovalocytes 1+ H (None) ABG pH (7.380-7.420) ABG HCO3 (22-26) mmol/L ABG Base Excess (-2-2) mmol/L Hemoglobin (12.0-16.0) G/DL BUN 6 L (7-18) mg/dL POC Glucose 138 H (68-110) mg/dl Random Glucose 147 H (74-106) mg/dL Calcium 7.9 L (8.5-10.1) mg/dL Total Bilirubin 1.1 H (0.2-1.0) mg/dL Alkaline Phosphatase 124 H (45-117) U/L Ammonia (11-32) mcmol/L Troponin I (0.02-0.05) ng/mL Albumin 3.3 L (3.4-5.0) g/dL 01/18/18 01/18/18 01/18/18 Range/Units 07:49 10:33 10:33 RBC (4.50-5.90) mil/mm3 Hgb (13.0-17.0) gm/dL Hct (39.0-51.0) % MCV (80.0-100.0) fL MCH (27.0-34.0) pg RDW (11.6-17.2) % Plt Count (150-450) th/mm3 Neut % (Auto) (16.0-70.0) % Gibson % (Auto) (0.0-8.0) % Lymph # (Auto) (1.0-4.8) th/mm3 Platelet Estimate (Normal) Ovalocytes (None) ABG pH (7.380-7.420) ABG HCO3 (22-26) mmol/L ABG Base Excess (-2-2) mmol/L Hemoglobin (12.0-16.0) G/DL BUN (7-18) mg/dL POC Glucose 163 H (68-110) mg/dl Random Glucose 143 H (74-106) mg/dL Calcium (8.5-10.1) mg/dL Total Bilirubin (0.2-1.0) mg/dL Alkaline Phosphatase (45-117) U/L Ammonia 70 H (11-32) mcmol/L Troponin I (0.02-0.05) ng/mL Albumin (3.4-5.0) g/dL 01/18/18 01/18/18 Range/Units 10:55 11:47 RBC (4.50-5.90) mil/mm3 Hgb (13.0-17.0) gm/dL Hct (39.0-51.0) % MCV (80.0-100.0) fL MCH (27.0-34.0) pg RDW (11.6-17.2) % Plt Count (150-450) th/mm3 Neut % (Auto) (16.0-70.0) % Gibson % (Auto) (0.0-8.0) % Lymph # (Auto) (1.0-4.8) th/mm3 Platelet Estimate (Normal) Ovalocytes (None) ABG pH 7.44 H (7.380-7.420) ABG HCO3 27 H (22-26) mmol/L ABG Base Excess 3.5 H (-2-2) mmol/L Hemoglobin 11.5 L (12.0-16.0) G/DL BUN (7-18) mg/dL POC Glucose 127 H (68-110) mg/dl Random Glucose (74-106) mg/dL Calcium (8.5-10.1) mg/dL Total Bilirubin (0.2-1.0) mg/dL Alkaline Phosphatase (45-117) U/L Ammonia (11-32) mcmol/L Troponin I (0.02-0.05) ng/mL Albumin (3.4-5.0) g/dL Short CBC 01/18/18 Range/Units 06:15 WBC 5.9 (4.0-11.0) th/mm3 Hgb 11.3 L (13.0-17.0) gm/dL Hct 35.0 L (39.0-51.0) % Plt Count 71 L (150-450) th/mm3 BMP 01/18/18 06:15 Sodium 137 Potassium 4.2 Chloride 103 Carbon Dioxide 26.7 BUN 6 L Creatinine 0.69 Calcium 7.9 L Cardiac Enzymes 01/17/18 Range/Units 18:44 Troponin I Less than 0.02 L (0.02-0.05) ng/mL Liver Function 01/18/18 Range/Units 06:15 Total Bilirubin 1.1 H (0.2-1.0) mg/dL AST 30 (15-37) U/L ALT 19 (12-78) U/L Alkaline Phosphatase 124 H (45-117) U/L Albumin 3.3 L (3.4-5.0) g/dL <Mele Recinos D - 01/18/18 14:23> - Imaging Impressions Chest X-Ray 01/19/18 13:07 CONCLUSION: Intubation with endotracheal tube in good position. <Florian Ritchie - 01/19/18 15:27> Physical Exam Vital signs: Vital Signs 01/18/18 16:00 01/18/18 20:00 01/18/18 20:54 Temperature 99.2 F 97.9 F Pulse Rate 69 60 59 L Respiratory Rate 17 19 20 Blood Pressure 158/78 H 117/68 Pulse Oximetry 100 98 99 01/19/18 00:00 01/19/18 04:00 01/19/18 07:00 Temperature 98.1 F 98.0 F Pulse Rate 54 L 62 Respiratory Rate 20 20 Blood Pressure 125/80 158/94 H Pulse Oximetry 99 97 98 01/19/18 08:00 01/19/18 08:23 01/19/18 08:24 Temperature 97.6 F Pulse Rate 60 61 Respiratory Rate 25 H 18 Blood Pressure 133/72 Pulse Oximetry 97 01/19/18 13:06 01/19/18 13:50 Temperature Pulse Rate 72 Respiratory Rate 16 16 Blood Pressure Pulse Oximetry 99 Intake & Output 01/18/18 01/19/18 01/19/18 18:59 06:59 18:59 Intake Total 200 / 200 2251 / 2251 951.5 / 951.5 Output Total 450 / 450 Balance 200 / 200 1801 / 1801 951.5 / 951.5 Intake: IV 200 / 200 2251 / 2251 951.5 / 951.5 Precedex Inj 1,000 MCG In NS 250 / 250 Inj 240 ML @ 0.2 MCG/KG/HR 4.98 mls/hr IV.CONT TITRATE PRN Rx# :[id number] Precedex Inj 200 MCG In NS Inj 50 / 50 48 ML @ 0.2 MCG/KG/HR 4.98 mls/ hr IV.CONT TITRATE PRN Rx#: [id number] D5W/Normal Saline Inj 1,000 ML 2000 / 2000 @ 84 mls/hr IV.CONT .[id number] [facility] Rx#:[id number] SandoSTATIN Inj 500 MCG In NS 0 / 0 500.5 / 500.5 Inj 500 ML @ 25 MCG/HR 25.02 mls/hr IV.CONT .Q20H1M [facility] Rx#: [id number] Cipro 200 MG/100 ML Inj 200 mg 200 / 200 100 / 100 100 / 100 In 100 ml @ 100 mls/hr IV.SIG Q12H [facility] Rx#:[id number] Thiamine Inj 100 MG In NS Inj 101 / 101 101 / 101 100 ML @ 100 mls/hr IV.SIG DAILY [facility] Rx#:[id number] Output: Urine 450 / 450 Other: # Voids 3 Date of Last Bowel Movement 01/15/18 01/15/18 01/15/18 # Bowel Movements 0 <Florian Ritchie L - 01/19/18 15:27> Vital Signs 01/17/18 16:00 01/17/18 20:00 01/18/18 00:00 Temperature 98.0 F 98.8 F 98.7 F Pulse Rate 88 90 76 Respiratory Rate 16 18 20 Blood Pressure 150/94 H 140/88 155/86 H Pulse Oximetry 96 96 95 01/18/18 04:00 01/18/18 08:00 01/18/18 08:27 Temperature 98.2 F 97.8 F Pulse Rate 78 79 Respiratory Rate 18 20 14 Blood Pressure 153/91 H 160/89 H Pulse Oximetry 95 96 01/18/18 12:00 Temperature 98.2 F Pulse Rate 77 Respiratory Rate 22 Blood Pressure 158/96 H Pulse Oximetry 100 Intake & Output 01/17/18 01/18/18 01/18/18 18:59 06:59 18:59 Intake Total 600.5 / 600.5 600.5 / 600.5 100 / 100 Output Total 1050 / 1050 Balance 600.5 / 600.5 -449.5 / -449.5 100 / 100 Intake: IV 600.5 / 600.5 600.5 / 600.5 100 / 100 SandoSTATIN Inj 500 MCG In NS 500.5 / 500.5 500.5 / 500.5 Inj 500 ML @ 25 MCG/HR 25.02 mls/hr IV.CONT .Q20H1M [facility] Rx#: [id number] Cipro 200 MG/100 ML Inj 200 mg 100 / 100 100 / 100 100 / 100 In 100 ml @ 100 mls/hr IV.SIG Q12H [facility] Rx#:[id number] Output: Urine 1050 / 1050 Other: Date of Last Bowel Movement 01/15/18 01/15/18 <Mele Recinos D - 01/18/18 14:23> - Constitutional mild distress <Mele Recinos - 01/18/18 14:23> Comments: Patient is laying in bed with restraints on upper extremities, fidgety <Mele Recinos D - 01/18/18 14:23> - Routine HEENT Exam Head: Present: normocephalic <Mele Recinos D - 01/18/18 14:23> ENT: Present: mucous membranes dry <Mele Recinos D - 01/18/18 14:23> - Routine Respiratory Exam Present: CTA bilaterally (Auscultated anteriorly). Absent: accessory muscle use , wheezes, crackles <Mele Recinos D - 01/18/18 14:23> - Routine Cardiovascular Exam Present: RRR, S1, S2. Absent: murmur, gallop, rubs <Mele Recinos - 14:23> - Routine Abdominal Exam Present: soft, normoactive bowel sounds. Absent: tenderness, distended, rebound , guarding <Mele Recinos - 01/18/18 14:23> - Routine Extremities Exam Present: full ROM, pulses intact. Absent: cyanosis, edema, normal capillary refill, calf tenderness <Mele Recinos - 01/18/18 14:23> - Routine Skin Exam Present: intact <Mele Recinos - 01/18/18 14:23> - Routine Neurological Exam Limited neuro exam Patient oriented to self Unable to answer questions appropriately Moving all extremities No focal neurological deficits noted noted on exam <Mele Recinos - 01/18/18 14:23> - Routine Psychiatric Exam Present: agitated <Mele Recinos - 01/18/18 14:23> Assessment and Plan - Assessment (1) Abdominal pain Code(s): R10.9 - Unspecified abdominal pain Status: Acute (2) Esophageal varices in cirrhosis Code(s): K74.60 - Unspecified cirrhosis of liver; I85.10 - Secondary esophageal varices without bleeding Status: Chronic (3) Hypertension Code(s): I10 - Essential (primary) hypertension Status: Chronic (4) Alcohol withdrawal Code(s): F10.239 - Alcohol dependence with withdrawal, unspecified Status: Acute (5) Alcohol abuse Code(s): F10.10 - Alcohol abuse, uncomplicated Status: Chronic (6) Depression with anxiety Code(s): F41.8 - Other specified anxiety disorders Status: Chronic (7) Cough Code(s): R05 - Cough Status: Acute (8) Diabetes Code(s): E11.9 - Type 2 diabetes mellitus without complications Status: Chronic (9) Nutrition, metabolism, and development symptoms Code(s): R63.8 - Other symptoms and signs concerning food and fluid intake Status: Acute <Florian Ritchie - 01/19/18 15:27> (1) Abdominal pain Code(s): R10.9 - Unspecified abdominal pain Status: Acute Plan: Patient is a 52-year-old male with past medical history of alcoholism, cirrhosis and esophageal variceal GI bleed who presented to the ED with complaint of umbilical abdominal pain, nausea, and vomiting for the past 2 days. Patient reports tooth extraction 2 days prior to admission and malaise ( abdominal pain, vomiting x10 times with questionable blood in vomit which he attributes to tooth extraction however due to patient's history of upper GI bleed due to esophageal varices will consult GI for further evaluation). On admission patient was slightly hypertensive however he was afebrile and no leukocytosis appreciated on CBC. CT abdomen: Showing edema of mesenteric, small metallic object in the transverse colon (which may have been part of patient's dental filling) and cirrhosis with portal hypertension and significant esophageal varices. Zofran for nausea Pain controlled with hydromorphone PRN which patient has had in the past without any adverse reactions Protonix IV twice daily Cipro for prophylaxis GI consulted for further recommendations, -Protonix, prophylactic antibiotic and octreotide drip -H&H stable and abdominal ultrasound negative for ascites -EGD procedure 01/16 showed: Esophageal varices grade 2 status post 4 band applied, biopsies taken from gastric antrum. Repeat EGD in 2 months. -vocal cord mass noted on intubation and ENT was consulted for further evaluation. Due to the difficulty in placing IV prior to GI procedure a central line order has been placed. -non-selective beta deena and follow up outpatient in two weeks. - GI has signed off ENT consulted Normal evaluation of vocal cords with laryngoscope neck CT no abnormal findings, no evidence of laryngeal lesion -will assess as needed (2) Esophageal varices in cirrhosis Code(s): K74.60 - Unspecified cirrhosis of liver; I85.10 - Secondary esophageal varices without bleeding Status: Chronic Plan: See plan above for abdominal pain (3) Hypertension Code(s): I10 - Essential (primary) hypertension Status: Chronic Plan: Resume home medications Clonidine PRN Continue to monitor blood pressure. (4) Alcohol withdrawal Code(s): F10.239 - Alcohol dependence with withdrawal, unspecified Status: Acute Plan: Patient with extensive alcohol abuse history for the past 30 years complicated by cirrhosis and esophageal variceal GI bleed. Currently receiving treatment for alcoholism at [facility] since July of this year. Reports he is taking a medication to help with his alcoholism however he has not been compliant and has been drinking at least 2 beers per day. Presented to the ED with severe abdominal pain, vomiting and nausea. Continue with CIWA protocol Patient was CIWA scores overnight of 14, 15, 15 and requiring 8 mg of Ativan based on protocol. Patient with worsening with alcohol withdrawal symptoms this morning given Ativan 2 mg x1. Patient placed n.p.o. except meds and IV fluids with D5 resumed Patient transferred to critical care as he is requiring more close observation due to worsening symptoms of agitation Continue to monitor vital signs Ammonia level elevated at 70 Blood glucose 140-160s ABG within normal limits CBC and CMP within normal limits Lactulose increased from daily to 3 times daily will consider adding rifaximin to aid in lowering ammonia level. Follow-up repeat ammonia and CMP this afternoon (5) Alcohol abuse Code(s): F10.10 - Alcohol abuse, uncomplicated Status: Chronic Plan: See alcohol withdrawal plan above (6) Depression with anxiety Code(s): F41.8 - Other specified anxiety disorders Status: Chronic Plan: Resume home medications (7) Cough Code(s): R05 - Cough Status: Acute Plan: Patient with history of chronic cough and wheezing. -GI saw abnormal vocal cords for EGD so consulted Pulmonology and ENT -Pulmonology: recommended aerosol treatment and tessalon 200 mg TID and smoking cessation. Recommended follow up pulmonary function studies once acute illness treated. -ENT: CT neck was negative. No mass visualized with laryngoscopy. Can follow up OP for post nasal drip (8) Diabetes Code(s): E11.9 - Type 2 diabetes mellitus without complications Status: Chronic Plan: Sliding scale insulin low Accu-Cheks Hypoglycemia protocol (9) Nutrition, metabolism, and development symptoms Code(s): R63.8 - Other symptoms and signs concerning food and fluid intake Status: Acute Plan: Fluids: IV fluids NS D5 100 mL/HR Electrolytes: Replete as needed Diet: N.p.o. except medication DVT prophylaxis: SCDs <Mele Recinos - 01/18/18 13:53> - Attending Attestation The exam, history, and the medical decision-making described in the above note were completed with the assistance of the resident physician. I reviewed and agree with the findings presented. Patient developing significant alcohol withdrawal and hepatic encephalopathy, requiring more Ativan. Will transfer to intensive care unit for close monitoring and consult slabber. He will likely require sedation if he continues to worsen, and possible intubation to protect airway. <Florian Ritchie - 01/19/18 15:27>
[2018-01-18] MEDS: Dextrose 5%/NaCl 0.9% Inj 1,000 ML IV.CONT SCH ×2 (15:23→17:39)
[2018-01-18] MEDS: Haloperidol Inj 5 MG/ML Ampul IV.PUSH PRN ×6 (15:30→17:00)
[2018-01-18] MEDS ORDERED: Dexmedetomidine Inj 200 MCG in Sodium Chlor 0.9% Inj 48 ML IV.CONT PRN (17:02)
[2018-01-18] MEDS ORDERED: Dextrose 50% in Water 50 ML Vial IV.PUSH PRN (17:02)
[2018-01-18] MEDS: Folic Acid 1 MG Tablet PO SCH (17:39)
[2018-01-18 18:04] LABS: Alanine Aminotransferase 21 U/L (12-78); Albumin 3.3 g/dL (3.4-5.0); Anion Gap 8 meq/L (5-15); Aspartate Aminotransferase 27 U/L (15-37); Blood Urea Nitrogen 7 mg/dL (7-18); Calcium 8.3 mg/dL (8.5-10.1); Chloride 103 meq/L (98-107); Glomerular Filtration Rate Greater Than 89 mL/min (>89); Glucose,Random 111 mg/dL (74-106); Potassium 3.8 meq/L (3.5-5.1); Sodium 139 meq/L (136-145)
[2018-01-18 18:07] LABS: Alkaline Phosphatase 130 U/L (45-117); Total Protein 7.3 g/dL (6.4-8.2)
[2018-01-18] MEDS: Thiamine Inj 100 MG in Sodium Chlor 0.9% Inj 100 ML IV.SIG SCH (18:51)
--- NOTE | 2018-01-18 19:55 | MB ---
cc: Luciana Cisse MD DATE: 01/18/2018 HISTORY OF PRESENT ILLNESS: The patient is a 52-year-old male with a past medical history of ETOH abuse, cirrhosis of liver secondary to alcohol, hypertension, diabetes mellitus, anxiety, depression, prior history of upper gastrointestinal bleed x2 due to esophageal varices. The patient was admitted under the family medicine team on 01/15/[address] A [address] scan of the abdomen and pelvis showed a cirrhotic liver with evidence of portal hypertension and prominent gastroesophageal varices. No ascites noted. The patient also underwent an ultrasound of the abdomen, which showed no significant ascites. He was seen by GI service and underwent upper endoscopy on 01/16/2018 which showed grade 2 esophageal varices, status post banding x4, gastritis and hiatal hernia. The patient also had a CT scan of the chest on 01/16/2018 which showed mild infiltrates in the posterior lower lung hussein suggestive of atelectasis and nonspecific 1.5 cm lymph node in the anterior superior mediastinum. He is being followed by Dr. Maki from pulmonary service. Due to altered mental status and possible alcohol withdrawal he was transferred to ICU and critical care medicine was consulted for critical care management. He received Ativan 6-8 mg total along with Haldol and the patient remained restless and agitated. Most of the history was obtained from reviewing medical records as the patient is a poor historian. ABG was performed this morning on room air, which showed a pH of 7.44, CO2 41, PaO2 69, bicarbonate 27, saturation 91%. PAST MEDICAL HISTORY: Significant for cirrhosis of the liver secondary to ETOH use, depression, anxiety, hypertension, history of upper gastrointestinal bleed secondary to esophageal varices. PAST SURGICAL HISTORY: Previous colonoscopy, previous EGD for esophageal varices. SOCIAL HISTORY: The patient has history of alcohol and marijuana use per records. FAMILY HISTORY: Diabetes mellitus and colon cancer runs in the family. ALLERGIES: MORPHINE AND BUSPIRONE. CURRENT MEDICATIONS: Include: 1. Protonix. 2. Lactulose. 3. Cipro. On CIWA protocol. REVIEW OF SYSTEMS: As per HPI. Rest of review of systems limited as the patient is a poor historian. PHYSICAL EXAMINATION: GENERAL: A 52-year-old male, restless, agitated, likely going into alcohol withdrawal. VITAL SIGNS: Temperature 98.2, pulse 77, respiratory rate 22, blood pressure 158/96, saturation 96% to 100%. HEENT: Atraumatic, normocephalic. Pupils are equal, round, reactive to light and accommodation. Extraocular muscles intact. Conjunctivae pink, anicteric sclerae. Oral mucosa within normal. NECK: Supple. No JVD, adenopathy or thyromegaly. Trachea in the midline. CARDIOVASCULAR: Regular rate and rhythm. Normal S1, S2. No murmurs, rubs or gallops noted. PULMONARY: Bilateral air entry. No rales or wheezing. ABDOMEN: Soft, nontender. No distention. Positive bowel sounds. EXTREMITIES: No cyanosis, clubbing or edema. NEUROLOGIC: Agitated, restless. No focal sensory deficit. LABORATORY DATA: WBC 5.9, hemoglobin 11.3, hematocrit 35, platelet counts have been 71. Sodium of 137, potassium 4.2, chloride 103, CO2 26, BUN 6, creatinine 0.69, glucose of 127. AST 30, ALT 19, total bilirubin 1.1, albumin 3.3. RADIOGRAPHIC STUDIES: CT chest on 01/16/2018 showed mild infiltrate in the posterior lower lung hussein suggestive of atelectasis and nonspecific 1.5 cm lymph node in the anterior superior mediastinal. Ultrasound of the abdomen showed no evidence of ascites. Soft tissue neck CT unremarkable. ASSESSMENT AND PLAN: 1. Altered mental status. 2. Intractable nausea and vomiting with questionable hematemesis. 3. Cirrhosis of the liver secondary to ETOH abuse. 4. 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 5. Hypertension. 6. Diabetes mellitus. RECOMMENDATIONS: 1. Monitor neuro status closely and monitor for signs of alcohol withdrawal/DTs. 2. Continue with CIWA protocol. We will place on a Precedex drip for agitation. 3. Place on thiamine, multivitamins and folic acid. 4. Continue with lactulose 30 mg t.i.d. and monitor ammonia level. 5. Oxygen p.r.n. to maintain sats above 92%. 6. Bronchodilators and aspiration precautions. 7. Monitor heart rate and blood pressure closely and maintain MAP greater than 65 mmHg. Continue with Inderal 20 mg b.i.d. 8. Norvasc 5 mg daily. 9. In addition, the patient is on clonidine 0.1 mg q.6 hours p.r.n. 10. Monitor renal function, I's and O's and electrolyte replacement per protocol. Place on IV fluids, D5 NS at 84 mL an hour. 11. Keep n.p.o. for now until mental status improves and continue with Protonix 40 mg b.i.d. 12. Status post EGD on 01/16/2018 which showed grade 2 esophageal varices, status post banding x4. 13. Monitor for signs of infection, which include fever and WBC. Lopez culture if spikes a fever. Abdominal ultrasound on 01/15/2018 showed no evidence of significant ascites. 13. Monitor CBC and coags. 14. Sliding scale insulin with Accu-Cheks to maintain euglycemic control. 15. Gastrointestinal prophylaxis with Protonix 40 mg b.i.d. 16. Deep venous thrombosis prophylaxis with SCDs only. The patient is not a candidate for chemical anticoagulation prophylaxis due to esophageal varices and thrombocytopenia. 17. Further recommendations will be based on hospital course. Luciana Cisse MD AI/ct , 05:19 PM , 05:32 PM
[2018-01-18] MEDS: Atenolol 50 MG Tablet PO SCH (19:56)
[2018-01-18] MEDS: Dexmedetomidine Inj 1,000 MCG in Sodium Chlor 0.9% Inj 240 ML IV.CONT PRN (21:22)
[2018-01-19 04:26] LABS: Baso % (Auto) 0.5 % (0.0-2.0); Eos # (Auto) 0.1 th/mm3 (0.0-0.4); Hematocrit 39.6 % (39.0-51.0); Hemoglobin 13.1 gm/dL (13.0-17.0); Lymph % (Auto) 13.9 % (9.0-44.0); Mean Corpuscular HGB Conc 33.1 % (32.0-36.0); Mean Corpuscular Hemoglobin 26.3 pg (27.0-34.0); Mean Corpuscular Volume 79.2 fL (80.0-100.0); Mean Platelet Volume 8.4 fL (7.0-11.0); Mono # (Auto) 1.5 th/mm3 (0.0-0.9); Mono % (Auto) 19.9 % (0.0-8.0); Neut # (Auto) 4.7 th/mm3 (1.8-7.7); Neut % (Auto) 63.7 % (16.0-70.0); Platelet Count 66 th/mm3 (150-450); Red Cell Distribution Width 17.1 % (11.6-17.2); White Blood Count 7.3 th/mm3 (4.0-11.0)
[2018-01-19 04:40] LABS: Alanine Aminotransferase 19 U/L (12-78); Albumin 3.3 g/dL (3.4-5.0); Anion Gap 8 meq/L (5-15); Aspartate Aminotransferase 22 U/L (15-37); Blood Urea Nitrogen 9 mg/dL (7-18); Calcium 7.7 mg/dL (8.5-10.1); Carbon Dioxide 27.7 meq/L (21.0-32.0); Chloride 105 meq/L (98-107); Glomerular Filtration Rate Greater Than 89 mL/min (>89); Glucose,Random 136 mg/dL (74-106); Phosphorus 3.2 mg/dL (2.5-4.9); Sodium 141 meq/L (136-145)
[2018-01-19 04:42] LABS: Alkaline Phosphatase 130 U/L (45-117); Total Protein 7.4 g/dL (6.4-8.2)
[2018-01-19 04:49] LABS: Platelet Morphology Normal (Normal); RBC Morphology Normal (Normal)
[2018-01-19] MEDS: Benzonatate 100 MG Capsule PO SCH ×3 (05:01→20:19)
[2018-01-19] MEDS: Insulin NovoLOG Aspart Correctional Sugar Inj SQ SCH ×6 (05:01→23:46)
[2018-01-19] MEDS: Dextrose 5%/NaCl 0.9% Inj 1,000 ML IV.CONT SCH (06:35)
[2018-01-19] MEDS: Haloperidol Inj 5 MG/ML Ampul IV.PUSH PRN (07:08)
[2018-01-19] MEDS: Dexmedetomidine Inj 1,000 MCG in Sodium Chlor 0.9% Inj 240 ML IV.CONT PRN (07:59)
[2018-01-19] MEDS: Thiamine Inj 100 MG in Sodium Chlor 0.9% Inj 100 ML IV.SIG SCH (07:59)
[2018-01-19] MEDS: Pantoprazole Inj 40 MG Vial IV.PUSH SCH ×2 (07:59→20:31)
[2018-01-19] MEDS: Divalproex 500 MG DR Tablet PO SCH (08:00)
[2018-01-19] MEDS: Folic Acid 1 MG Tablet PO SCH (08:00)
[2018-01-19] MEDS: amLODIPine 5 MG Tablet PO SCH (08:01)
[2018-01-19] MEDS: Senna/Docusate Sodium 8.6/50 MG Tablet PO SCH ×2 (08:01→20:31)
[2018-01-19] MEDS: Lisinopril 20 MG Tablet PO SCH (08:02)
--- NOTE | 2018-01-19 09:26 | P.PNFP ---
Subjective Interval history: Patient seen and examined at bedside this morning. Patient was transferred to critical care yesterday due to increasing CIWA scores and worsening agitation from alcohol withdrawal. Auditor/Quality was consulted and patient was started on Precedex drip. Vital signs have remained stable. Vital signs at bedside this morning were: Blood pressure 124/82, RR 27, heart rate 60 and O2 saturations are 96% on room air. CIWA scores overnight 20, 7,7,7. Patient CIWA scores have remain stable at 7 since starting precedex drip at 2000 last night (01/18). Nurse reports that they have not been able to use correctly monitor urine output as patient has pulled condom catheter several times and urinated on the bed. Precedex is currently at 1.2/kilogram/hour. Overnight nurse attempted to titrate Precedex drip down this morning however patient became agitated. <Mele Recinos - 01/19/18 11:03> Results - Labs Result diagrams: 01/19/18 04:10 01/19/18 04:10 <Florian Ritchie - 01/19/18 16:11> Abnormal lab results 01/18/18 01/18/18 01/18/18 Range/Units 17:02 17:22 17:22 MCV (80.0-100.0) fL MCH (27.0-34.0) pg Plt Count (150-450) th/mm3 Lake % (Auto) (0.0-8.0) % Lake # (Auto) (0.0-0.9) th/mm3 Platelet Estimate (Normal) ABG pO2 (61-120) mmHG POC Glucose 121 H (68-110) mg/dl Random Glucose 111 H (74-106) mg/dL Calcium 8.3 L (8.5-10.1) mg/dL Total Bilirubin 1.2 H (0.2-1.0) mg/dL Alkaline Phosphatase 130 H (45-117) U/L Ammonia 81 H (11-32) mcmol/L Albumin 3.3 L (3.4-5.0) g/dL 01/18/18 01/18/18 01/19/18 Range/Units 20:10 23:37 04:10 MCV 79.2 L (80.0-100.0) fL MCH 26.3 L (27.0-34.0) pg Plt Count 66 L (150-450) th/mm3 Lake % (Auto) 19.9 H (0.0-8.0) % Lake # (Auto) 1.5 H (0.0-0.9) th/mm3 Platelet Estimate Low L (Normal) ABG pO2 (61-120) mmHG POC Glucose 139 H 200 H (68-110) mg/dl Random Glucose (74-106) mg/dL Calcium (8.5-10.1) mg/dL Total Bilirubin (0.2-1.0) mg/dL Alkaline Phosphatase (45-117) U/L Ammonia (11-32) mcmol/L Albumin (3.4-5.0) g/dL 01/19/18 01/19/18 01/19/18 Range/Units 04:10 04:10 07:16 MCV (80.0-100.0) fL MCH (27.0-34.0) pg Plt Count (150-450) th/mm3 Lake % (Auto) (0.0-8.0) % Lake # (Auto) (0.0-0.9) th/mm3 Platelet Estimate (Normal) ABG pO2 (61-120) mmHG POC Glucose 169 H (68-110) mg/dl Random Glucose 136 H (74-106) mg/dL Calcium 7.7 L (8.5-10.1) mg/dL Total Bilirubin 1.1 H (0.2-1.0) mg/dL Alkaline Phosphatase 130 H (45-117) U/L Ammonia 98 H (11-32) mcmol/L Albumin 3.3 L (3.4-5.0) g/dL 01/19/18 Range/Units 15:38 MCV (80.0-100.0) fL MCH (27.0-34.0) pg Plt Count (150-450) th/mm3 Lake % (Auto) (0.0-8.0) % Lake # (Auto) (0.0-0.9) th/mm3 Platelet Estimate (Normal) ABG pO2 192 H (61-120) mmHG POC Glucose (68-110) mg/dl Random Glucose (74-106) mg/dL Calcium (8.5-10.1) mg/dL Total Bilirubin (0.2-1.0) mg/dL Alkaline Phosphatase (45-117) U/L Ammonia (11-32) mcmol/L Albumin (3.4-5.0) g/dL Short CBC 01/19/18 Range/Units 04:10 WBC 7.3 (4.0-11.0) th/mm3 Hgb 13.1 (13.0-17.0) gm/dL Hct 39.6 (39.0-51.0) % Plt Count 66 L (150-450) th/mm3 BMP 01/18/18 01/19/18 17:22 04:10 Sodium 139 141 Potassium 3.8 4.0 Chloride 103 105 Carbon Dioxide 28.0 27.7 BUN 7 9 Creatinine 0.71 0.76 Calcium 8.3 L 7.7 L Liver Function 01/18/18 01/19/18 Range/Units 17:22 04:10 Total Bilirubin 1.2 H 1.1 H (0.2-1.0) mg/dL AST 27 22 (15-37) U/L ALT 21 19 (12-78) U/L Alkaline Phosphatase 130 H 130 H (45-117) U/L Albumin 3.3 L 3.3 L (3.4-5.0) g/dL <YoungFlorian L - 01/19/18 16:11> Abnormal lab results 01/18/18 01/18/18 01/18/18 Range/Units 10:33 10:33 10:55 MCV (80.0-100.0) fL MCH (27.0-34.0) pg Plt Count (150-450) th/mm3 Lake % (Auto) (0.0-8.0) % Lake # (Auto) (0.0-0.9) th/mm3 Platelet Estimate (Normal) ABG pH 7.44 H (7.380-7.420) ABG HCO3 27 H (22-26) mmol/L ABG Base Excess 3.5 H (-2-2) mmol/L Hemoglobin 11.5 L (12.0-16.0) G/DL POC Glucose (68-110) mg/dl Random Glucose 143 H (74-106) mg/dL Calcium (8.5-10.1) mg/dL Total Bilirubin (0.2-1.0) mg/dL Alkaline Phosphatase (45-117) U/L Ammonia 70 H (11-32) mcmol/L Albumin (3.4-5.0) g/dL 01/18/18 01/18/18 01/18/18 Range/Units 11:47 17:02 17:22 MCV (80.0-100.0) fL MCH (27.0-34.0) pg Plt Count (150-450) th/mm3 Lake % (Auto) (0.0-8.0) % Lake # (Auto) (0.0-0.9) th/mm3 Platelet Estimate (Normal) ABG pH (7.380-7.420) ABG HCO3 (22-26) mmol/L ABG Base Excess (-2-2) mmol/L Hemoglobin (12.0-16.0) G/DL POC Glucose 127 H 121 H (68-110) mg/dl Random Glucose 111 H (74-106) mg/dL Calcium 8.3 L (8.5-10.1) mg/dL Total Bilirubin 1.2 H (0.2-1.0) mg/dL Alkaline Phosphatase 130 H (45-117) U/L Ammonia (11-32) mcmol/L Albumin 3.3 L (3.4-5.0) g/dL 01/18/18 01/18/18 01/18/18 Range/Units 17:22 20:10 23:37 MCV (80.0-100.0) fL MCH (27.0-34.0) pg Plt Count (150-450) th/mm3 Lake % (Auto) (0.0-8.0) % Lake # (Auto) (0.0-0.9) th/mm3 Platelet Estimate (Normal) ABG pH (7.380-7.420) ABG HCO3 (22-26) mmol/L ABG Base Excess (-2-2) mmol/L Hemoglobin (12.0-16.0) G/DL POC Glucose 139 H 200 H (68-110) mg/dl Random Glucose (74-106) mg/dL Calcium (8.5-10.1) mg/dL Total Bilirubin (0.2-1.0) mg/dL Alkaline Phosphatase (45-117) U/L Ammonia 81 H (11-32) mcmol/L Albumin (3.4-5.0) g/dL 01/19/18 01/19/18 01/19/18 Range/Units 04:10 04:10 04:10 MCV 79.2 L (80.0-100.0) fL MCH 26.3 L (27.0-34.0) pg Plt Count 66 L (150-450) th/mm3 Lake % (Auto) 19.9 H (0.0-8.0) % Lake # (Auto) 1.5 H (0.0-0.9) th/mm3 Platelet Estimate Low L (Normal) ABG pH (7.380-7.420) ABG HCO3 (22-26) mmol/L ABG Base Excess (-2-2) mmol/L Hemoglobin (12.0-16.0) G/DL POC Glucose (68-110) mg/dl Random Glucose 136 H (74-106) mg/dL Calcium 7.7 L (8.5-10.1) mg/dL Total Bilirubin 1.1 H (0.2-1.0) mg/dL Alkaline Phosphatase 130 H (45-117) U/L Ammonia 98 H (11-32) mcmol/L Albumin 3.3 L (3.4-5.0) g/dL 01/19/18 Range/Units 07:16 MCV (80.0-100.0) fL MCH (27.0-34.0) pg Plt Count (150-450) th/mm3 Lake % (Auto) (0.0-8.0) % Lake # (Auto) (0.0-0.9) th/mm3 Platelet Estimate (Normal) ABG pH (7.380-7.420) ABG HCO3 (22-26) mmol/L ABG Base Excess (-2-2) mmol/L Hemoglobin (12.0-16.0) G/DL POC Glucose 169 H (68-110) mg/dl Random Glucose (74-106) mg/dL Calcium (8.5-10.1) mg/dL Total Bilirubin (0.2-1.0) mg/dL Alkaline Phosphatase (45-117) U/L Ammonia (11-32) mcmol/L Albumin (3.4-5.0) g/dL Short CBC 01/19/18 Range/Units 04:10 WBC 7.3 (4.0-11.0) th/mm3 Hgb 13.1 (13.0-17.0) gm/dL Hct 39.6 (39.0-51.0) % Plt Count 66 L (150-450) th/mm3 BMP 01/18/18 01/19/18 17:22 04:10 Sodium 139 141 Potassium 3.8 4.0 Chloride 103 105 Carbon Dioxide 28.0 27.7 BUN 7 9 Creatinine 0.71 0.76 Calcium 8.3 L 7.7 L Liver Function 01/18/18 01/19/18 Range/Units 17:22 04:10 Total Bilirubin 1.2 H 1.1 H (0.2-1.0) mg/dL AST 27 22 (15-37) U/L ALT 21 19 (12-78) U/L Alkaline Phosphatase 130 H 130 H (45-117) U/L Albumin 3.3 L 3.3 L (3.4-5.0) g/dL <Mele Recinos D - 01/19/18 09:26> - Imaging Impressions Chest X-Ray 01/19/18 13:07 CONCLUSION: Intubation with endotracheal tube in good position. <Florian Ritchie - 01/19/18 16:11> Physical Exam Vital signs: Vital Signs 01/18/18 20:00 01/18/18 20:54 01/19/18 00:00 Temperature 97.9 F 98.1 F Pulse Rate 60 59 L 54 L Respiratory Rate 19 20 20 Blood Pressure 117/68 125/80 Pulse Oximetry 98 99 99 01/19/18 04:00 01/19/18 07:00 01/19/18 08:00 Temperature 98.0 F 97.6 F Pulse Rate 62 60 Respiratory Rate 20 25 H Blood Pressure 158/94 H 133/72 Pulse Oximetry 97 98 01/19/18 08:23 01/19/18 08:24 01/19/18 13:06 Temperature Pulse Rate 61 Respiratory Rate 18 16 Blood Pressure Pulse Oximetry 97 99 01/19/18 13:50 Temperature Pulse Rate 72 Respiratory Rate 16 Blood Pressure Pulse Oximetry Intake & Output 01/18/18 01/19/18 01/19/18 18:59 06:59 18:59 Intake Total 200 / 200 2251 / 2251 951.5 / 951.5 Output Total 450 / 450 Balance 200 / 200 1801 / 1801 951.5 / 951.5 Intake: IV 200 / 200 2251 / 2251 951.5 / 951.5 Precedex Inj 1,000 MCG In NS 250 / 250 Inj 240 ML @ 0.2 MCG/KG/HR 4.98 mls/hr IV.CONT TITRATE PRN Rx# :[id number] Precedex Inj 200 MCG In NS Inj 50 / 50 48 ML @ 0.2 MCG/KG/HR 4.98 mls/ hr IV.CONT TITRATE PRN Rx#: [id number] D5W/Normal Saline Inj 1,000 ML 2000 / 2000 @ 84 mls/hr IV.CONT .[id number] MANUEL Rx#:[id number] SandoSTATIN Inj 500 MCG In NS 0 / 0 500.5 / 500.5 Inj 500 ML @ 25 MCG/HR 25.02 mls/hr IV.CONT .Q20H1M MANUEL Rx#: [id number] Cipro 200 MG/100 ML Inj 200 mg 200 / 200 100 / 100 100 / 100 In 100 ml @ 100 mls/hr IV.SIG Q12H MANUEL Rx#:[id number] Thiamine Inj 100 MG In NS Inj 101 / 101 101 / 101 100 ML @ 100 mls/hr IV.SIG DAILY MANUEL Rx#:[id number] Output: Urine 450 / 450 Other: # Voids 3 Date of Last Bowel Movement 01/15/18 01/15/18 01/15/18 # Bowel Movements 0 <Florian Ritchie L - 01/19/18 16:11> Vital Signs 01/18/18 12:00 01/18/18 16:00 01/18/18 20:00 Temperature 98.2 F 99.2 F 97.9 F Pulse Rate 77 69 60 Respiratory Rate 22 17 19 Blood Pressure 158/96 H 158/78 H 117/68 Pulse Oximetry 100 100 98 01/18/18 20:54 01/19/18 00:00 01/19/18 04:00 Temperature 98.1 F 98.0 F Pulse Rate 59 L 54 L 62 Respiratory Rate 20 20 20 Blood Pressure 125/80 158/94 H Pulse Oximetry 99 99 97 01/19/18 07:00 01/19/18 08:00 01/19/18 08:23 Temperature 97.6 F Pulse Rate 60 Respiratory Rate 25 H Blood Pressure 133/72 Pulse Oximetry 98 97 01/19/18 08:24 Temperature Pulse Rate 61 Respiratory Rate 18 Blood Pressure Pulse Oximetry Intake & Output 01/18/18 01/19/18 01/19/18 18:59 06:59 18:59 Intake Total 200 / 200 2251 / 2251 351 / 351 Output Total 450 / 450 Balance 200 / 200 1801 / 1801 351 / 351 Intake: IV 200 / 200 2251 / 2251 351 / 351 Precedex Inj 1,000 MCG In NS 250 / 250 Inj 240 ML @ 0.2 MCG/KG/HR 4.98 mls/hr IV.CONT TITRATE PRN Rx# :[id number] Precedex Inj 200 MCG In NS Inj 50 / 50 48 ML @ 0.2 MCG/KG/HR 4.98 mls/ hr IV.CONT TITRATE PRN Rx#: [id number] D5W/Normal Saline Inj 1,000 ML 2000 / 2000 @ 84 mls/hr IV.CONT .[id number] MANUEL Rx#:[id number] SandoSTATIN Inj 500 MCG In NS 0 / 0 Inj 500 ML @ 25 MCG/HR 25.02 mls/hr IV.CONT .Q20H1M MANUEL Rx#: [id number] Cipro 200 MG/100 ML Inj 200 mg 200 / 200 100 / 100 In 100 ml @ 100 mls/hr IV.SIG Q12H MANUEL Rx#:[id number] Thiamine Inj 100 MG In NS Inj 101 / 101 101 / 101 100 ML @ 100 mls/hr IV.SIG DAILY MANUEL Rx#:[id number] Output: Urine 450 / 450 Other: # Voids 3 Date of Last Bowel Movement 01/15/18 01/15/18 01/15/18 # Bowel Movements 0 <CalzadoMele D - 01/19/18 09:26> - Constitutional Comments: Patient sleeping in bed with restraints, snoring <Calzado,Mele D - 01/19/18 10:15> - Routine HEENT Exam Head: Present: normocephalic <Calzado,Mele D - 01/19/18 10:15> - Routine Neck Exam Present: supple <Calzado,Mele D - 01/19/18 10:15> - Routine Respiratory Exam Present: wheezes (Expiratory wheezing throughout lung hussein, auscultated anteriorly). Absent: accessory muscle use <CalzadoMele D 01/19/18 10:15> Comments: Coarse breath sounds auscultated anteriorly throughout lung hussein <Mele Recinos 01/19/18 10:15> - Routine Cardiovascular Exam Present: RRR, S1, S2. Absent: murmur, gallop, rubs <Mele Recinos 10:15> - Routine Abdominal Exam Present: soft, normoactive bowel sounds. Absent: tenderness, distended, rebound , guarding <Mele Recinos 01/19/18 10:15> - Routine Extremities Exam Present: pulses intact. Absent: cyanosis, edema, calf tenderness <Mele Recinos 01/19/18 10:15> - Routine Neurological Exam Limited neuro exam No focal neurological deficits noted noted on exam <Mele Recinos 01/19/18 10:15> - Routine Psychiatric Exam Present: unable to assess <Mele Recinos 01/19/18 10:15> Assessment and Plan - Assessment (1) Abdominal pain Code(s): R10.9 - Unspecified abdominal pain Status: Acute (2) Esophageal varices in cirrhosis Code(s): K74.60 - Unspecified cirrhosis of liver; I85.10 - Secondary esophageal varices without bleeding Status: Chronic (3) Hypertension Code(s): I10 - Essential (primary) hypertension Status: Chronic (4) Alcohol withdrawal Code(s): F10.239 - Alcohol dependence with withdrawal, unspecified Status: Acute (5) Alcohol abuse Code(s): F10.10 - Alcohol abuse, uncomplicated Status: Chronic (6) Depression with anxiety Code(s): F41.8 - Other specified anxiety disorders Status: Chronic (7) Cough Code(s): R05 - Cough Status: Acute (8) Diabetes Code(s): E11.9 - Type 2 diabetes mellitus without complications Status: Chronic (9) Nutrition, metabolism, and development symptoms Code(s): R63.8 - Other symptoms and signs concerning food and fluid intake Status: Acute <Florian Ritchie 01/19/18 16:11> (1) Abdominal pain Code(s): R10.9 - Unspecified abdominal pain Status: Acute Plan: Patient is a 52-year-old male with past medical history of alcoholism, cirrhosis and esophageal variceal GI bleed who presented to the ED with complaint of umbilical abdominal pain, nausea, and vomiting for the past 2 days. Patient reports tooth extraction 2 days prior to admission and malaise ( abdominal pain, vomiting x10 times with questionable blood in vomit which he attributes to tooth extraction however due to patient's history of upper GI bleed due to esophageal varices will consult GI for further evaluation). On admission patient was slightly hypertensive however he was afebrile and no leukocytosis appreciated on CBC. CT abdomen: Showing edema of mesenteric, small metallic object in the transverse colon (which may have been part of patient's dental filling) and cirrhosis with portal hypertension and significant esophageal varices. Zofran for nausea Pain controlled with hydromorphone PRN which patient has had in the past without any adverse reactions Protonix IV twice daily Cipro for prophylaxis GI consulted for further recommendations, -Protonix, prophylactic antibiotic and octreotide drip -H&H stable and abdominal ultrasound negative for ascites -EGD procedure 01/16 showed: Esophageal varices grade 2 status post 4 band applied, biopsies taken from gastric antrum. Repeat EGD in 2 months. -vocal cord mass noted on intubation and ENT was consulted for further evaluation. -non-selective beta deena and follow up outpatient in two weeks. - GI has signed off ENT consulted Normal evaluation of vocal cords with laryngoscope neck CT no abnormal findings, no evidence of laryngeal lesion -will assess as needed (2) Esophageal varices in cirrhosis Code(s): K74.60 - Unspecified cirrhosis of liver; I85.10 - Secondary esophageal varices without bleeding Status: Chronic Plan: See plan above for abdominal pain (3) Hypertension Code(s): I10 - Essential (primary) hypertension Status: Chronic Plan: Resume home medications Clonidine PRN Continue to monitor blood pressure. (4) Alcohol withdrawal Code(s): F10.239 - Alcohol dependence with withdrawal, unspecified Status: Acute Plan: Patient with extensive alcohol abuse history for the past 30 years complicated by cirrhosis and esophageal variceal GI bleed. Currently receiving treatment for alcoholism at [facility] since July of this year. Reports he is taking a medication to help with his alcoholism however he has not been compliant and has been drinking at least 2 beers per day. Presented to the ED with severe abdominal pain, vomiting and nausea. Continue with CIWA protocol Patient with worsening with alcohol withdrawal symptoms yesterday and was transferred to critical care Auditor/Quality consulted, appreciate recommendations Patient placed on Precedex drip currently at (1.5/kilogram/hour) Patient CIWA scores overnight of 20, 7, 7,7. Precedex drip started at 1999 on 01/18 and CIWA have remain stable at 7 since then Patient placed n.p.o. c/w IV fluids with D5 resumed Continue to monitor vital signs, continue to monitor ammonia and cmp Ammonia level elevated at 70-> 81->98 Blood glucose 130-160s ABG on 01/18 within normal limit on RA CBC and CMP within normal limits Lactulose increased from daily to 3 times daily will consider adding rifaximin to aid in lowering ammonia level. monitor ammonia levels (5) Alcohol abuse Code(s): F10.10 - Alcohol abuse, uncomplicated Status: Chronic Plan: See alcohol withdrawal plan above (6) Depression with anxiety Code(s): F41.8 - Other specified anxiety disorders Status: Chronic Plan: Resume home medications (7) Cough Code(s): R05 - Cough Status: Acute Plan: Patient with history of chronic cough and wheezing. -GI saw abnormal vocal cords for EGD so consulted Pulmonology and ENT -Pulmonology: recommended aerosol treatment and tessalon 200 mg TID and smoking cessation. Recommended follow up pulmonary function studies once acute illness treated. -ENT: CT neck was negative. No mass visualized with laryngoscopy. Can follow up OP for post nasal drip (8) Diabetes Code(s): E11.9 - Type 2 diabetes mellitus without complications Status: Chronic Plan: Sliding scale insulin low Accu-Cheks Hypoglycemia protocol (9) Nutrition, metabolism, and development symptoms Code(s): R63.8 - Other symptoms and signs concerning food and fluid intake Status: Acute Plan: Fluids: IV fluids NS D5 100 mL/HR Electrolytes: Replete as needed Diet: N.p.o. DVT prophylaxis: SCDs <Mele Recinos D - 01/19/18 11:00> - Attending Attestation The exam, history, and the medical decision-making described in the above note were completed with the assistance of the resident physician. I reviewed and agree with the findings presented. I attest that I had a [id number] encounter with the patient on the same day, and personally performed and documented my assessment and findings in the medical record. Patient seen in the ICU. Auditor/Quality is consulted to assist with management. He has developed significant alcohol withdrawal and hepatic encephalopathy. He is currently intubated and mechanically ventilated to help protect airway with sedation. Will continue to monitor and hopefully wean off ventilation and sedation over the next few days. He is on lactulose and rifaximin for hepatic encephalopathy. <Florian Ritchie - 01/19/18 16:11>
[2018-01-19] MEDS ORDERED: Etomidate Inj 40 MG/20 ML Vial IV.PUSH ONE ×2 (12:39→12:43)
[2018-01-19] MEDS: Ciprofloxacin 200 MG/100 ML 200 MG/100 ML PIGGYBACK IV.SIG SCH ×2 (12:40→23:59)
--- NOTE | 2018-01-19 13:12 | P.PCN ---
Date of procedure: 01/19/18 Pre-op diagnosis: Acute respiratory failure Post-op diagnosis: same Procedure: DATE: 01/19/2018 PROCEDURE: Orotracheal intubation INDICATION: Acute respiratory failure DETAILS OF PROCEDURE The patient was placed in optimal position and preoxygenated with 100% FiO2 via bag valve mask. At the start oxygen saturation was 95%. The patient was administered 40 mg etomidate IV and 50 milligrams rocuronium IV. I entered the oropharynx with a size 4 laryngoscope blade and obtained a grade 2 view of the airway. On single attempt a size 8.0 cuffed endotracheal tube was passed through the vocal cords. Correct tube location was confirmed with end tidal CO2 detector and by auscultating over bilateral lung hussein. The endotracheal tube was secured with adhesive tape at a depth of 24 cm at the lips. The patient was connected to the ventilator. The patient tolerated the procedure well without any apparent complications. Oxygen saturations were maintained greater than 95% all times. STAT chest x-ray pending at time of dictation.
--- NOTE | 2018-01-19 13:19 | P.PNCC ---
Subjective Subjective Remarks/Hospital Course: The patient is a 52-year-old male with a past medical history of ETOH abuse, cirrhosis of liver secondary to alcohol, hypertension, diabetes mellitus, anxiety, depression, prior history of upper gastrointestinal bleed x2 due to esophageal varices. The patient was admitted under the family medicine team on 01/15/2018 for abdominal pain. A CT scan of the abdomen and pelvis showed a cirrhotic liver with evidence of portal hypertension and prominent gastroesophageal varices. No ascites noted. The patient also underwent an ultrasound of the abdomen, which showed no significant ascites. He was seen by GI service and underwent upper endoscopy on 01/16/2018 which showed grade2 esophageal varices, status post banding x4, gastritis and hiatal hernia. The patient also had a CT scan of the chest on 01/16/2018 which showed mild infiltrates in the posterior lower lung hussein suggestive of atelectasis and nonspecific 1.5 cm lymph node in the anterior superior mediastinum. He is being followed by Dr. Maki from pulmonary service. Due to altered mental status and possible alcohol withdrawal he was transferred to ICU and critical care medicine was consulted for critical care management. He received Ativan 6-8 mg total along with Haldol and the patient remained restless and agitated. Most of the history was obtained from reviewing medical records as the patient is a poor historian. ABG was performed this morning on room air, which showed a pH of 7.44, CO2 41, PaO2 69, bicarbonate 27, saturation 91%. Subjective 01/19: Patient with worsening oxygenation status. Essentially unresponsive obtunded. Ammonia level is 98 this morning. Elective intubation. Objective Vital Signs / I&O: Vital Signs 01/18/18 16:00 01/18/18 20:00 01/18/18 20:54 Temperature 99.2 F 97.9 F Pulse Rate 69 60 59 L Respiratory Rate 17 19 20 Blood Pressure 158/78 H 117/68 Pulse Oximetry 100 98 99 01/19/18 00:00 01/19/18 04:00 01/19/18 07:00 Temperature 98.1 F 98.0 F Pulse Rate 54 L 62 Respiratory Rate 20 20 Blood Pressure 125/80 158/94 H Pulse Oximetry 99 97 98 01/19/18 08:00 01/19/18 08:23 01/19/18 08:24 Temperature 97.6 F Pulse Rate 60 61 Respiratory Rate 25 H 18 Blood Pressure 133/72 Pulse Oximetry 97 Intake & Output 01/18/18 01/19/18 01/19/18 18:59 06:59 18:59 Intake Total 200 / 200 2251 / 2251 351 / 351 Output Total 450 / 450 Balance 200 / 200 1801 / 1801 351 / 351 Intake: IV 200 / 200 2251 / 2251 351 / 351 Precedex Inj 1,000 MCG In NS 250 / 250 Inj 240 ML @ 0.2 MCG/KG/HR 4.98 mls/hr IV.CONT TITRATE PRN Rx# :[id number] Precedex Inj 200 MCG In NS Inj 50 / 50 48 ML @ 0.2 MCG/KG/HR 4.98 mls/ hr IV.CONT TITRATE PRN Rx#: [id number] D5W/Normal Saline Inj 1,000 ML 2000 / 2000 @ 84 mls/hr IV.CONT .[id number] MANUEL Rx#:[id number] SandoSTATIN Inj 500 MCG In NS 0 / 0 Inj 500 ML @ 25 MCG/HR 25.02 mls/hr IV.CONT .Q20H1M MANUEL Rx#: [id number] Cipro 200 MG/100 ML Inj 200 mg 200 / 200 100 / 100 In 100 ml @ 100 mls/hr IV.SIG Q12H MANUEL Rx#:[id number] Thiamine Inj 100 MG In NS Inj 101 / 101 101 / 101 100 ML @ 100 mls/hr IV.SIG DAILY MANUEL Rx#:[id number] Output: Urine 450 / 450 Other: # Voids 3 Date of Last Bowel Movement 01/15/18 01/15/18 01/15/18 # Bowel Movements 0 Result Diagrams: 01/19/18 04:10 01/19/18 04:10 Imaging: Abdomen Ultrasound 01/15/18 00:00 CONCLUSION: 1. No significant ascites. Abdomen/Pelvis CT 01/15/18 07:18 CONCLUSION: 1. There is a very small ingested metallic foreign body in the mid transverse colon without evidence for colitis or perforation at this time. This does not have the typical appearance of a barbecue bristle although this cannot be entirely excluded. 2. Cirrhotic liver with evidence for portal hypertension and prominent gastroesophageal varices. There is no ascites although there is diffuse mesenteric edema. This is particularly prominent near the fourth portion of the duodenum. Suspect this is dependent mesenteric edema rather than duodenitis. 3. Additional ancillary findings, as above. Abdomen X-Ray 01/16/18 00:00 CONCLUSION: 1. 4 mm linear metallic density in the right mid quadrant possibly representing a small surgical clip. 2. Otherwise, unremarkable exam. Chest CT 01/16/18 00:00 CONCLUSION: 1. Mild infiltrates are noted in the posterior lower lung hussein bilaterally suggestive of atelectasis. Otherwise, lung hussein are grossly clear. 2. Nonspecific 1.5 cm lymph node in the anterior superior mediastinum. 3. Nonspecific thickening involving the distal esophagus. If clinically indicated, a barium swallow could be performed on a nonemergent outpatient basis. Soft Tissue Neck CT 01/16/18 00:00 CONCLUSION: 1. Grossly unremarkable CT soft tissue neck for patient's age. 2. Nonspecific 1.5 cm lymph node in the anterior superior mediastinum. Objective Remarks: GENERAL: 52-year-old male currently orotracheally intubated SKIN: Warm and dry. No petechia or rash HEAD: Atraumatic. Normocephalic. EYES: Pupils equal and round about 3 mm bilaterally and reactive. No scleral icterus. No injection or drainage. ENT: No nasal bleeding or discharge. Mucous membranes pink and moist. NECK: Trachea midline. No JVD. CARDIOVASCULAR: Regular rate and rhythm. S1, S2 no S4. No murmur RESPIRATORY: Coarse rhonchorous breath sounds appreciated bilaterally. No wheezing. GASTROINTESTINAL: Abdomen soft, non-tender, slightly distended. Not palpate lower hepatic border MUSCULOSKELETAL: Extremities without clubbing, cyanosis, or edema. No obvious deformities. NEUROLOGICAL: Positive gag and cough. Withdraws to pain. Not following commands. Assessment and Plan - Assessment and Plan Plan: 1. Altered mental status/toxic metabolic encephalopathy secondary to elevated ammonia and delirium tremens. 2. Intractable nausea and vomiting with questionable hematemesis. 3. Cirrhosis of the liver secondary to ETOH abuse. 4. 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 5. Hypertension. 6. Diabetes mellitus hemoglobin A1c 6.0. 7. Ongoing abuse/EtOH 8. History of cannabinoids use 9. Hypoalbuminemia 10. Esophageal varices status post banding by GI 11. Elevated BMI Neuro/Psych: Currently on propofol/fentanyl drips for sedation/analgesia while intubated Goal of RA SS -[address] brain ordered Continue vitamin bag daily times 3 days for EtOH withdrawal. CV: Continue amlodipine 5 mg daily and lisinopril 40 mg daily Continue propranolol l 20 mg twice daily As needed clonidine 0.1 mg every 6 hours Continue pravastatin 40 mg daily for hyperlipidemia [facility]/ Ventilator bundle Albuterol/ipratropium aerosols every 4 hours with albuterol aerosols every 2 hours as needed dyspnea. Spontaneous breathing trials when clinically indicated. Follow postintubation chest x-ray and ABG GI: Status post EGD on 01/16/2018 which showed grade 2 esophageal varices, status post banding x4. Abdominal ultrasound on 01/15/2018 showed no evidence of significant ascites. Will ask GI if okay to place NG/OG tube Pantoprazole 40 m IV twice daily for GI prophylaxis Continue octreotide drip at 25 mcg/h Start bowel regimen when clinically indicated On lactulose 30 cc 3 times daily and Xifaxan 550 mg twice daily. Recheck ammonia level in a.m. 01/20. : Clemente catheter for accurate I's and O's in a critical patient Endo: Sliding scale insulin with Accu-Cheks every 6 hours to maintain euglycemia Hemoglobin A1c was 6.0 Renal: Monitor urine output accurate I's and O's Recheck BMP in a.m. 01/20 Heme: No indication for transfusion of blood products at this time. Recheck CBC in a.m. 01/20 ID: Check sputum and monitor for signs of hematology infection. Continue ciprofloxacin MSK: Weight loss encouraged FEN: Replace electrolytes as clinically indicated On normal saline at 50 cc an hour Access -Utilize peripheral IV. Central line if indicated Prophylaxis -GI-pantoprazole - -DVT SCD/pharmacological prophylaxis contraindicated with bleeding 35 minutes critical care time follow-up GI notified. Okayed for NG/OG tube to suction.
--- NOTE | 2018-01-19 13:39 | XR ---
EXAM DATE: 01/19/2018 1:34 PM EST AGE/SEX: 52 years / Male INDICATIONS: Post intubation CLINICAL DATA: This is the patient's subsequent encounter. Patient reports that signs and symptoms h ave been present for 4 - 6 days and indicates a pain score of Nonresponsive. MEDICAL/SURGICAL HISTORY: . : Diabetes. Hypertension. Esophageal varices. . . Abdominal surge ry. COMPARISON: [facility], CHEST SINGLE AP, 07/26/2017. . FINDINGS: Endotracheal tube tip in good position at the level of the aortic arch. Minimal basilar atelectasis. No effusion or pneumothorax. CONCLUSION: Intubation with endotracheal tube in good position. Electronically signed by: Leopoldo Pagan MD 01/19/2018 1:38 PM EST
[2018-01-19] MEDS: Midazolam 50 MG/50 ML Inj 50 MG/50 ML BAG IV.CONT PRN ×3 (14:30→22:15)
[2018-01-19] MEDS: Artificial Tears Opth Drops 15 ML Bottle EACH EYE SCH ×2 (15:04→21:48)
[2018-01-19] MEDS: Multivitamin Inj 10 ML, Thiamine Inj 100 MG, Folic Acid Inj 1 MG in Sodium Chlor 0.9% I... IV.SIG SCH (15:04)
[2018-01-19] MEDS: Sod Chloride 0.9% Inj 1,000 ML IV.CONT SCH (15:05)
[2018-01-19 15:46] LABS: ABG Base Excess -1.3 mmol/L (-2-2); ABG PCO2 40 mmHg (38-42); ABG PO2 192 mmHG (61-120)
[2018-01-19] MEDS: Oral Hygiene Kit OROPHARYNG SCH ×2 (16:05→23:59)
[2018-01-19] MEDS: Propofol 1000 mg/100 ml Inj 1,000 MG/100 ML BOTTLE IV.CONT PRN (16:09)
[2018-01-19] MEDS: Octreotide Inj 500 MCG in Sodium Chlor 0.9% Inj 500 ML IV.CONT SCH (17:20)
--- NOTE | 2018-01-19 18:58 | US ---
EXAM DATE: 01/19/2018 6:49 PM EST AGE/SEX: 52 years / Male INDICATIONS: Right arm swelling. CLINICAL DATA: This is the patient's initial encounter. Patient reports that signs and symptoms have been present for 1 day and indicates a pain score of Nonresponsive. MEDICAL/SURGICAL HISTORY: Diabetes. HTN. Depression. ETOH abuse. GI bleed. None. COMPARISON: No prior exams available for comparison. FINDINGS: There is nonocclusive thrombus present in the mid brachial vein. Cephalic vein and ulnar v ein not clearly identified. Internal jugular, subclavian, axillary and basilic veins are patent. Other: None. CONCLUSION: 1. Positive for nonocclusive deep venous thrombosis in the right mid brachial vein. Electronically signed by: Leopoldo Pagan MD 01/19/2018 6:57 PM EST
[2018-01-19] MEDS: Chlorhexidine 0.12% Oral Kit 15 ML UDC OROPHARYNG SCH (20:31)
[2018-01-19] MEDS: rifAXIMin 550 MG Tablet PO SCH (20:31)
[2018-01-20] MEDS: fentaNYL 10 mcg/mL Premix Drip 2,500 MCG/250 ML BAG IV.SIG PRN ×2 (01:10→18:12)
[2018-01-20] MEDS: Midazolam 50 MG/50 ML Inj 50 MG/50 ML BAG IV.CONT PRN ×2 (03:57→19:28)
[2018-01-20] MEDS: Benzonatate 100 MG Capsule PO SCH ×3 (04:17→20:50)
[2018-01-20] MEDS: Insulin NovoLOG Aspart Correctional Sugar Inj SQ SCH ×6 (04:17→23:32)
[2018-01-20] MEDS: Oral Hygiene Kit OROPHARYNG SCH ×4 (04:17→23:33)
[2018-01-20 04:36] LABS: Baso # (Auto) 0.1 th/mm3 (0.0-0.2); Baso % (Auto) 0.4 % (0.0-2.0); Eos # (Auto) 0.1 th/mm3 (0.0-0.4); Eos % (Auto) 0.7 % (0.0-4.0); Hematocrit 35.7 % (39.0-51.0); Hemoglobin 11.5 gm/dL (13.0-17.0); Lymph # (Auto) 0.8 th/mm3 (1.0-4.8); Lymph % (Auto) 5.6 % (9.0-44.0); Mean Corpuscular Hemoglobin 25.3 pg (27.0-34.0); Mean Platelet Volume 8.4 fL (7.0-11.0); Mono % (Auto) 14.1 % (0.0-8.0); Neut # (Auto) 11.4 th/mm3 (1.8-7.7); Neut % (Auto) 79.2 % (16.0-70.0); Platelet Count 51 th/mm3 (150-450); Red Blood Count 4.52 mil/mm3 (4.50-5.90); Red Cell Distribution Width 17.2 % (11.6-17.2); White Blood Count 14.3 th/mm3 (4.0-11.0)
[2018-01-20 04:45] LABS: Activated Partial Thrombo Time 33.6 sec (23.4-31.7); INR 1.4 Ratio; Prothrombin Time 13.8 sec (9.8-11.6)
[2018-01-20 04:59] LABS: Alanine Aminotransferase 16 U/L (12-78); Albumin 2.8 g/dL (3.4-5.0); Anion Gap 11 meq/L (5-15); Aspartate Aminotransferase 20 U/L (15-37); Blood Urea Nitrogen 17 mg/dL (7-18); Calcium 7.5 mg/dL (8.5-10.1); Chloride 108 meq/L (98-107); Glomerular Filtration Rate 60 mL/min (>89); Glucose,Random 92 mg/dL (74-106); Magnesium 1.7 mg/dL (1.5-2.5); Phosphorus 2.9 mg/dL (2.5-4.9); Potassium 3.8 meq/L (3.5-5.1)
[2018-01-20 05:03] LABS: Alkaline Phosphatase 115 U/L (45-117); Total Protein 6.5 g/dL (6.4-8.2)
[2018-01-20 05:07] LABS: Sodium 142 meq/L (136-145)
[2018-01-20] MEDS: Artificial Tears Opth Drops 15 ML Bottle EACH EYE SCH ×3 (05:12→21:53)
[2018-01-20] MEDS: rifAXIMin 550 MG Tablet PO SCH ×2 (08:02→21:53)
[2018-01-20] MEDS: amLODIPine 5 MG Tablet PO SCH ×2 (08:02→12:38)
[2018-01-20] MEDS: Divalproex 500 MG DR Tablet PO SCH (08:02)
[2018-01-20] MEDS: Senna/Docusate Sodium 8.6/50 MG Tablet PO SCH ×2 (08:02→20:52)
[2018-01-20] MEDS: Lisinopril 20 MG Tablet PO SCH ×2 (08:02→12:39)
[2018-01-20] MEDS: Pantoprazole Inj 40 MG Vial IV.PUSH SCH ×2 (08:03→20:52)
[2018-01-20] MEDS: Chlorhexidine 0.12% Oral Kit 15 ML UDC OROPHARYNG SCH ×2 (08:05→20:50)
--- NOTE | 2018-01-20 08:08 | P.PNCC ---
Subjective Subjective Remarks/Hospital Course: The patient is a 52-year-old male with a past medical history of ETOH abuse, cirrhosis of liver secondary to alcohol, hypertension, diabetes mellitus, anxiety, depression, prior history of upper gastrointestinal bleed x2 due to esophageal varices. The patient was admitted under the family medicine team on 01/15/2018 for abdominal pain. A CT scan of the abdomen and pelvis showed a cirrhotic liver with evidence of portal hypertension and prominent gastroesophageal varices. No ascites noted. The patient also underwent an ultrasound of the abdomen, which showed no significant ascites. He was seen by GI service and underwent upper endoscopy on 01/16/2018 which showed grade2 esophageal varices, status post banding x4, gastritis and hiatal hernia. The patient also had a CT scan of the chest on 01/16/2018 which showed mild infiltrates in the posterior lower lung hussein suggestive of atelectasis and nonspecific 1.5 cm lymph node in the anterior superior mediastinum. He is being followed by Dr. Maki from pulmonary service. Due to altered mental status and possible alcohol withdrawal he was transferred to ICU and critical care medicine was consulted for critical care management. He received Ativan 6-8 mg total along with Haldol and the patient remained restless and agitated. Most of the history was obtained from reviewing medical records as the patient is a poor historian. ABG was performed this morning on room air, which showed a pH of 7.44, CO2 41, PaO2 69, bicarbonate 27, saturation 91%. Subjective 01/19: Patient with worsening oxygenation status. Essentially unresponsive obtunded. Ammonia level is 98 this morning. Elective intubation. 01/20 Patient is intubated and sedated, afebrile. Objective Vital Signs / I&O: Vital Signs 01/19/18 08:23 01/19/18 08:24 01/19/18 12:00 Temperature 98.0 F Pulse Rate 61 63 Respiratory Rate 18 33 H Blood Pressure 151/76 H Pulse Oximetry 97 01/19/18 13:06 01/19/18 13:50 01/19/18 16:00 Temperature 98.6 F Pulse Rate 72 68 Respiratory Rate 16 16 16 Blood Pressure 108/69 Pulse Oximetry 99 01/19/18 19:00 01/19/18 20:00 01/19/18 20:05 Temperature 98.4 F Pulse Rate 67 68 Respiratory Rate 16 16 Blood Pressure 95/53 L Pulse Oximetry 97 97 01/19/18 23:28 01/19/18 23:30 01/20/18 00:00 Temperature Pulse Rate 69 69 Respiratory Rate 16 16 16 Blood Pressure 110/85 Pulse Oximetry 98 96 01/20/18 03:43 01/20/18 04:00 Temperature 98.2 F Pulse Rate 73 75 Respiratory Rate 18 17 Blood Pressure 84/45 L Pulse Oximetry 97 Intake & Output 01/19/18 01/20/18 01/20/18 18:59 06:59 18:59 Intake Total 2251.5 / 2251.5 711.2 / 711.2 Output Total 3200 / 3200 Balance -948.5 / -948.5 711.2 / 711.2 Intake: IV 2251.5 / 2251.5 711.2 / 711.2 Precedex Inj 1,000 MCG In NS 500 / 500 Inj 240 ML @ 0.2 MCG/KG/HR 4.98 mls/hr IV.CONT TITRATE PRN Rx# :[id number] D5W/Normal Saline Inj 1,000 ML 1000 / 1000 @ 84 mls/hr IV.CONT .[id number] MANUEL Rx#:[id number] Versed Inj 50 mg In 50 ml @ 2 50 / 50 100 / 100 MG/HR 2 mls/hr IV.CONT TITRATE PRN Rx#:[id number] SandoSTATIN Inj 500 MCG In NS 500.5 / 500.5 Inj 500 ML @ 25 MCG/HR 25.02 mls/hr IV.CONT .Q20H1M MANUEL Rx#: [id number] Cipro 200 MG/100 ML Inj 200 mg 100 / 100 100 / 100 In 100 ml @ 100 mls/hr IV.SIG Q12H MANUEL Rx#:[id number] MVI-12 Inj 10 ML Thiamine Inj 511.2 / 511.2 100 MG Folvite Inj 1 MG In NS Inj 500 ML @ 125 mls/hr IV.SIG Q24H MANUEL Rx#:[id number] Thiamine Inj 100 MG In NS Inj 101 / 101 100 ML @ 100 mls/hr IV.SIG DAILY MANUEL Rx#:[id number] Oral 0 / 0 Output: Urine 3200 / 3200 Other: # Incontinent Voids 5 Date of Last Bowel Movement 01/15/18 01/15/18 # Bowel Movements 0 0 Result Diagrams: 01/20/18 04:18 01/20/18 04:18 Other Results: Laboratory Results - last 12 hr 01/19/18 01/19/18 01/19/18 19:23 20:00 23:35 WBC RBC Hgb Hct MCV MCH MCHC RDW Plt Count MPV Prelim Diff (Auto) Neut % (Auto) Lymph % (Auto) [place] % (Auto) Eos % (Auto) Baso % (Auto) Neut # (Auto) Lymph # (Auto) [place] # (Auto) Eos # (Auto) Baso # (Auto) Differential Comment Hematology Comments PT INR APTT Sodium Potassium Chloride Carbon Dioxide Anion Gap BUN Creatinine Estimated GFR POC Glucose 157 H 84 Random Glucose Calcium Phosphorus Magnesium Total Bilirubin AST ALT Alkaline Phosphatase Ammonia 72 H Troponin I Total Protein Albumin 01/20/18 01/20/18 01/20/18 03:59 04:18 04:18 WBC 14.3 H RBC 4.52 Hgb 11.5 L Hct 35.7 L MCV 79.0 L MCH 25.3 L MCHC 32.0 RDW 17.2 Plt Count 51 L MPV 8.4 Prelim Diff (Auto) Slide review pending Neut % (Auto) 79.2 H Lymph % (Auto) 5.6 L [place] % (Auto) 14.1 H Eos % (Auto) 0.7 Baso % (Auto) 0.4 Neut # (Auto) 11.4 H Lymph # (Auto) 0.8 L [place] # (Auto) 2.0 H Eos # (Auto) 0.1 Baso # (Auto) 0.1 Differential Comment . Hematology Comments PT INR APTT Sodium 142 Potassium 3.8 Chloride 108 H Carbon Dioxide 23.0 Anion Gap 11 BUN 17 Creatinine 1.26 Estimated GFR 60 L POC Glucose 103 Random Glucose 92 Calcium 7.5 L Phosphorus 2.9 Magnesium 1.7 Total Bilirubin 1.6 H AST 20 ALT 16 Alkaline Phosphatase 115 Ammonia Troponin I Less than 0.02 L Total Protein 6.5 D Albumin 2.8 L 01/20/18 01/20/18 04:18 04:18 WBC RBC Hgb Hct MCV MCH MCHC RDW Plt Count MPV Prelim Diff (Auto) Neut % (Auto) Lymph % (Auto) [place] % (Auto) Eos % (Auto) Baso % (Auto) Neut # (Auto) Lymph # (Auto) [place] # (Auto) Eos # (Auto) Baso # (Auto) Differential Comment Hematology Comments PT 13.8 H INR 1.4 APTT 33.6 H Sodium Potassium Chloride Carbon Dioxide Anion Gap BUN Creatinine Estimated GFR POC Glucose Random Glucose Calcium Phosphorus Magnesium Total Bilirubin AST ALT Alkaline Phosphatase Ammonia 59 H Troponin I Total Protein Albumin Imaging: Abdomen Ultrasound 01/15/18 00:00 CONCLUSION: 1. No significant ascites. Abdomen/Pelvis CT 01/15/18 07:18 CONCLUSION: 1. There is a very small ingested metallic foreign body in the mid transverse colon without evidence for colitis or perforation at this time. This does not have the typical appearance of a barbecue bristle although this cannot be entirely excluded. 2. Cirrhotic liver with evidence for portal hypertension and prominent gastroesophageal varices. There is no ascites although there is diffuse mesenteric edema. This is particularly prominent near the fourth portion of the duodenum. Suspect this is dependent mesenteric edema rather than duodenitis. 3. Additional ancillary findings, as above. Abdomen X-Ray 01/16/18 00:00 CONCLUSION: 1. 4 mm linear metallic density in the right mid quadrant possibly representing a small surgical clip. 2. Otherwise, unremarkable exam. Chest CT 01/16/18 00:00 CONCLUSION: 1. Mild infiltrates are noted in the posterior lower lung hussein bilaterally suggestive of atelectasis. Otherwise, lung hussein are grossly clear. 2. Nonspecific 1.5 cm lymph node in the anterior superior mediastinum. 3. Nonspecific thickening involving the distal esophagus. If clinically indicated, a barium swallow could be performed on a nonemergent outpatient basis. Soft Tissue Neck CT 01/16/18 00:00 CONCLUSION: 1. Grossly unremarkable CT soft tissue neck for patient's age. 2. Nonspecific 1.5 cm lymph node in the anterior superior mediastinum. Chest X-Ray 01/19/18 13:07 CONCLUSION: Intubation with endotracheal tube in good position. Venous Doppler Study 01/19/18 17:08 CONCLUSION: 1. Positive for nonocclusive deep venous thrombosis in the right mid brachial vein. Objective Remarks: GENERAL: 52-year-old male currently orotracheally intubated SKIN: Warm and dry. No petechia or rash HEAD: Atraumatic. Normocephalic. EYES: Pupils equal and round about 3 mm bilaterally and reactive. No scleral icterus. No injection or drainage. ENT: No nasal bleeding or discharge. Mucous membranes pink and moist. NECK: Trachea midline. No JVD. CARDIOVASCULAR: Regular rate and rhythm. S1, S2 no S4. No murmur RESPIRATORY: Coarse rhonchorous breath sounds appreciated bilaterally. No wheezing. GASTROINTESTINAL: Abdomen soft, non-tender, slightly distended. Not palpate lower hepatic border MUSCULOSKELETAL: Extremities without clubbing, cyanosis, or edema. No obvious deformities. NEUROLOGICAL: Positive gag and cough. Withdraws to pain. Not following commands. Assessment and Plan - Assessment and Plan Plan: 1. Altered mental status/toxic metabolic encephalopathy secondary to elevated ammonia and delirium tremens. 2. VDRF 3. Cirrhosis of the liver secondary to ETOH abuse. 4. 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 5. Hypertension. 6. Diabetes mellitus hemoglobin A1c 6.0. 7. Ongoing abuse/EtOH 8. History of cannabinoids use 9. Hypoalbuminemia 10. Esophageal varices status post banding by GI 11. Elevated BMI Neuro/Psych: Currently on Versed/fentanyl drips for sedation/analgesia while intubated Goal of RA SS -[address] brain ordered Continue vitamin bag daily times 3 days for EtOH withdrawal. CV: Monitor HR and BP keep MAP>65mmHg Continue amlodipine 5 mg daily and lisinopril 40 mg daily Continue propranolol l 20 mg twice daily As needed clonidine 0.1 mg every 6 hours Continue pravastatin 40 mg daily for hyperlipidemia Resp: [facility] 16/03/15/39 Ventilator bundle Albuterol/ipratropium aerosols every 4 hours with albuterol aerosols every 2 hours as needed dyspnea. Spontaneous breathing trials when clinically indicated. GI: Status post EGD on 01/16/2018 which showed grade 2 esophageal varices, status post banding x4. Abdominal ultrasound on 01/15/2018 showed no evidence of significant ascites. Insert OGT and start tube feeds-Glucerna 1.5 with goal rate 50ml/hr Pantoprazole 40 m IV twice daily for GI prophylaxis Continue octreotide drip at 25 mcg/h On lactulose 30 cc 3 times daily and Xifaxan 550 mg twice daily. Ammonia level 59 today from 72. : Monitor renal function, electrolytes replacement per protocol. On NS@50ml/hr Endo: Sliding scale insulin with Accu-Cheks every 6 hours to maintain euglycemia Hemoglobin A1c was 6.0 Heme: Monitor CBC No indication for transfusion of blood products at this time. ID: Monitor for signs of infections ( Fever, WBC) Continue ciprofloxacin Follow up on sputum cx 01/19 MSK: Weight loss encouraged Access -Utilize peripheral IV. Prophylaxis -GI-pantoprazole - -DVT SCD/pharmacological prophylaxis contraindicated with bleeding 35 minutes critical care time follow-up
[2018-01-20 08:17] LABS: Platelet Morphology Normal (Normal)
--- NOTE | 2018-01-20 12:20 | P.DIET ---
Nutritional Evaluation Type of nutrition evaluation: initial Nutrition consult regarding: Tube Feeding Screening comments: TF review Subjective Subjective Comments: 01/20 Pt was eating around 75-100% of most meals prior to intubation and tolerated well. Objective - Diagnosis abd pain, mesenteric edema, vomiting - Objective Body Mass Index: 32.5 % IBW: 137 (IBW = 160lb) Body Weight Used for Calculations: IBW Energy Needs - Lower Range (kCal/kg): 22 Energy Needs - Upper Range (kCal/kg): 25 Lower Limit kCal/kg (kCals): 1,600 Upper Limit kCal/kg (kCals): 1,818 Lower Limit Protein Factor (Grams per Kg): 1.2 Upper Limit Protein Factor (Grams per Kg): 1.5 Lower Protein Needs (Protein): 87 Upper Protein Needs (Protein): 109 Dietitian Reviewed in Medical Record: Current diet, Curent medications, Intake & Output, Labs, Medical history Diet Order: NPO, TF Objective Comments: PMH: depression, DM, esophageal varices, ETOH abuse, GI bleed, HTN Labs: GFR 60, POC glucose 136, Ca+ 7.5 Assessment Assessment: Pt was intubated d/t worsening oxygenation on 01/19 per MD note, currently sedated w/ fentanyl, versed. Pt receiving Glucerna 1.5 @ 50mL/hr via OGT. RD agree w/ Glucerna 1.5 goal rate @ 50mL/hr to provide 1800 kcal, 99g of protein, and 911mL of free water to meet pts assessed nutritional needs. Monitor TF tolerance, glucose levels. Labs reviewed, dietitian following. Recommendations: 1. RD agree w/ Glucerna 1.5 goal rate @ 50mL/hr to meet pts assessed nutritional needs 2. Monitor TF tolerance, glucose levels 3. Dietitian following Dietitian to Monitor: Lab values, Glucose level, Intake & Output, Tube feeding tolerance, Medical course
[2018-01-20] MEDS: Sod Chloride 0.9% Inj 1,000 ML IV.CONT SCH (12:39)
[2018-01-20] MEDS: Ciprofloxacin 200 MG/100 ML 200 MG/100 ML PIGGYBACK IV.SIG SCH ×2 (12:57→23:32)
--- NOTE | 2018-01-20 14:39 | P.PNFP ---
Subjective Interval history: Should say "PEEP at 5" <Florian Ritchie Cal - 01/20/18 15:53> Patient currently intubated. Sleeping and not aroused by physicians touch in extremities or performing physical exam. Repeat at 5, FiO2 at 50%, at 2 L/min. Versed at 10 mg/h and fentanyl at 15 mill liters per hour. According to nursing staff when attempting to decrease sedation medication patient became agitated attempting to pull out lines and tube. <Irma Zhang - 01/20/18 14:38> Results - Labs Result diagrams: 01/20/18 04:18 01/20/18 04:18 <Florian Ritchie Cal - 01/20/18 15:53> Abnormal lab results 01/19/18 01/19/18 01/19/18 Range/Units 16:50 19:23 20:00 WBC (4.0-11.0) th/mm3 Hgb (13.0-17.0) gm/dL Hct (39.0-51.0) % MCV (80.0-100.0) fL MCH (27.0-34.0) pg Plt Count (150-450) th/mm3 Neut % (Auto) (16.0-70.0) % Lymph % (Auto) (9.0-44.0) % [place] % (Auto) (0.0-8.0) % Neut # (Auto) (1.8-7.7) th/mm3 Lymph # (Auto) (1.0-4.8) th/mm3 [place] # (Auto) (0.0-0.9) th/mm3 Platelet Estimate (Normal) PT (9.8-11.6) sec APTT (23.4-31.7) sec Chloride (98-107) meq/L Estimated GFR (>89) mL/min POC Glucose 180 H 157 H (68-110) mg/dl Calcium (8.5-10.1) mg/dL Total Bilirubin (0.2-1.0) mg/dL Ammonia 72 H (11-32) mcmol/L Troponin I (0.02-0.05) ng/mL Albumin (3.4-5.0) g/dL 01/20/18 01/20/18 01/20/18 Range/Units 04:18 04:18 04:18 WBC 14.3 H (4.0-11.0) th/mm3 Hgb 11.5 L (13.0-17.0) gm/dL Hct 35.7 L (39.0-51.0) % MCV 79.0 L (80.0-100.0) fL MCH 25.3 L (27.0-34.0) pg Plt Count 51 L (150-450) th/mm3 Neut % (Auto) 79.2 H (16.0-70.0) % Lymph % (Auto) 5.6 L (9.0-44.0) % [place] % (Auto) 14.1 H (0.0-8.0) % Neut # (Auto) 11.4 H (1.8-7.7) th/mm3 Lymph # (Auto) 0.8 L (1.0-4.8) th/mm3 [place] # (Auto) 2.0 H (0.0-0.9) th/mm3 Platelet Estimate Low L (Normal) PT (9.8-11.6) sec APTT (23.4-31.7) sec Chloride 108 H (98-107) meq/L Estimated GFR 60 L (>89) mL/min POC Glucose (68-110) mg/dl Calcium 7.5 L (8.5-10.1) mg/dL Total Bilirubin 1.6 H (0.2-1.0) mg/dL Ammonia 59 H (11-32) mcmol/L Troponin I Less than 0.02 L (0.02-0.05) ng/mL Albumin 2.8 L (3.4-5.0) g/dL 01/20/18 01/20/18 01/20/18 Range/Units 04:18 08:00 13:24 WBC (4.0-11.0) th/mm3 Hgb (13.0-17.0) gm/dL Hct (39.0-51.0) % MCV (80.0-100.0) fL MCH (27.0-34.0) pg Plt Count (150-450) th/mm3 Neut % (Auto) (16.0-70.0) % Lymph % (Auto) (9.0-44.0) % [place] % (Auto) (0.0-8.0) % Neut # (Auto) (1.8-7.7) th/mm3 Lymph # (Auto) (1.0-4.8) th/mm3 [place] # (Auto) (0.0-0.9) th/mm3 Platelet Estimate (Normal) PT 13.8 H (9.8-11.6) sec APTT 33.6 H (23.4-31.7) sec Chloride (98-107) meq/L Estimated GFR (>89) mL/min POC Glucose 136 H (68-110) mg/dl Calcium (8.5-10.1) mg/dL Total Bilirubin (0.2-1.0) mg/dL Ammonia 56 H (11-32) mcmol/L Troponin I (0.02-0.05) ng/mL Albumin (3.4-5.0) g/dL Short CBC 01/20/18 Range/Units 04:18 WBC 14.3 H (4.0-11.0) th/mm3 Hgb 11.5 L (13.0-17.0) gm/dL Hct 35.7 L (39.0-51.0) % Plt Count 51 L (150-450) th/mm3 BMP 01/20/18 04:18 Sodium 142 Potassium 3.8 Chloride 108 H Carbon Dioxide 23.0 BUN 17 Creatinine 1.26 Calcium 7.5 L Cardiac Enzymes 01/20/18 Range/Units 04:18 Troponin I Less than 0.02 L (0.02-0.05) ng/mL Liver Function 01/20/18 Range/Units 04:18 Total Bilirubin 1.6 H (0.2-1.0) mg/dL AST 20 (15-37) U/L ALT 16 (12-78) U/L Alkaline Phosphatase 115 (45-117) U/L Albumin 2.8 L (3.4-5.0) g/dL <YoungFlorian L - 01/20/18 15:53> Abnormal lab results 01/19/18 01/19/18 01/19/18 Range/Units 15:38 16:50 19:23 WBC (4.0-11.0) th/mm3 Hgb (13.0-17.0) gm/dL Hct (39.0-51.0) % MCV (80.0-100.0) fL MCH (27.0-34.0) pg Plt Count (150-450) th/mm3 Neut % (Auto) (16.0-70.0) % Lymph % (Auto) (9.0-44.0) % [place] % (Auto) (0.0-8.0) % Neut # (Auto) (1.8-7.7) th/mm3 Lymph # (Auto) (1.0-4.8) th/mm3 [place] # (Auto) (0.0-0.9) th/mm3 Platelet Estimate (Normal) PT (9.8-11.6) sec APTT (23.4-31.7) sec ABG pO2 192 H (61-120) mmHG Chloride (98-107) meq/L Estimated GFR (>89) mL/min POC Glucose 180 H (68-110) mg/dl Calcium (8.5-10.1) mg/dL Total Bilirubin (0.2-1.0) mg/dL Ammonia 72 H (11-32) mcmol/L Troponin I (0.02-0.05) ng/mL Albumin (3.4-5.0) g/dL 01/19/18 01/20/18 01/20/18 Range/Units 20:00 04:18 04:18 WBC 14.3 H (4.0-11.0) th/mm3 Hgb 11.5 L (13.0-17.0) gm/dL Hct 35.7 L (39.0-51.0) % MCV 79.0 L (80.0-100.0) fL MCH 25.3 L (27.0-34.0) pg Plt Count 51 L (150-450) th/mm3 Neut % (Auto) 79.2 H (16.0-70.0) % Lymph % (Auto) 5.6 L (9.0-44.0) % [place] % (Auto) 14.1 H (0.0-8.0) % Neut # (Auto) 11.4 H (1.8-7.7) th/mm3 Lymph # (Auto) 0.8 L (1.0-4.8) th/mm3 [place] # (Auto) 2.0 H (0.0-0.9) th/mm3 Platelet Estimate Low L (Normal) PT (9.8-11.6) sec APTT (23.4-31.7) sec ABG pO2 (61-120) mmHG Chloride 108 H (98-107) meq/L Estimated GFR 60 L (>89) mL/min POC Glucose 157 H (68-110) mg/dl Calcium 7.5 L (8.5-10.1) mg/dL Total Bilirubin 1.6 H (0.2-1.0) mg/dL Ammonia (11-32) mcmol/L Troponin I Less than 0.02 L (0.02-0.05) ng/mL Albumin 2.8 L (3.4-5.0) g/dL 01/20/18 01/20/18 01/20/18 Range/Units 04:18 04:18 08:00 WBC (4.0-11.0) th/mm3 Hgb (13.0-17.0) gm/dL Hct (39.0-51.0) % MCV (80.0-100.0) fL MCH (27.0-34.0) pg Plt Count (150-450) th/mm3 Neut % (Auto) (16.0-70.0) % Lymph % (Auto) (9.0-44.0) % [place] % (Auto) (0.0-8.0) % Neut # (Auto) (1.8-7.7) th/mm3 Lymph # (Auto) (1.0-4.8) th/mm3 [place] # (Auto) (0.0-0.9) th/mm3 Platelet Estimate (Normal) PT 13.8 H (9.8-11.6) sec APTT 33.6 H (23.4-31.7) sec ABG pO2 (61-120) mmHG Chloride (98-107) meq/L Estimated GFR (>89) mL/min POC Glucose 136 H (68-110) mg/dl Calcium (8.5-10.1) mg/dL Total Bilirubin (0.2-1.0) mg/dL Ammonia 59 H (11-32) mcmol/L Troponin I (0.02-0.05) ng/mL Albumin (3.4-5.0) g/dL 01/20/18 Range/Units 13:24 WBC (4.0-11.0) th/mm3 Hgb (13.0-17.0) gm/dL Hct (39.0-51.0) % MCV (80.0-100.0) fL MCH (27.0-34.0) pg Plt Count (150-450) th/mm3 Neut % (Auto) (16.0-70.0) % Lymph % (Auto) (9.0-44.0) % [place] % (Auto) (0.0-8.0) % Neut # (Auto) (1.8-7.7) th/mm3 Lymph # (Auto) (1.0-4.8) th/mm3 [place] # (Auto) (0.0-0.9) th/mm3 Platelet Estimate (Normal) PT (9.8-11.6) sec APTT (23.4-31.7) sec ABG pO2 (61-120) mmHG Chloride (98-107) meq/L Estimated GFR (>89) mL/min POC Glucose (68-110) mg/dl Calcium (8.5-10.1) mg/dL Total Bilirubin (0.2-1.0) mg/dL Ammonia 56 H (11-32) mcmol/L Troponin I (0.02-0.05) ng/mL Albumin (3.4-5.0) g/dL Short CBC 01/20/18 Range/Units 04:18 WBC 14.3 H (4.0-11.0) th/mm3 Hgb 11.5 L (13.0-17.0) gm/dL Hct 35.7 L (39.0-51.0) % Plt Count 51 L (150-450) th/mm3 BMP 01/20/18 04:18 Sodium 142 Potassium 3.8 Chloride 108 H Carbon Dioxide 23.0 BUN 17 Creatinine 1.26 Calcium 7.5 L Cardiac Enzymes 01/20/18 Range/Units 04:18 Troponin I Less than 0.02 L (0.02-0.05) ng/mL Liver Function 01/20/18 Range/Units 04:18 Total Bilirubin 1.6 H (0.2-1.0) mg/dL AST 20 (15-37) U/L ALT 16 (12-78) U/L Alkaline Phosphatase 115 (45-117) U/L Albumin 2.8 L (3.4-5.0) g/dL <Irma Zhang - 01/20/18 14:38> - Imaging Impressions Venous Doppler Study 01/19/18 17:08 CONCLUSION: 1. Positive for nonocclusive deep venous thrombosis in the right mid brachial vein. <Florian Ritchie - 01/20/18 15:53> Impressions Venous Doppler Study 01/19/18 17:08 CONCLUSION: 1. Positive for nonocclusive deep venous thrombosis in the right mid brachial vein. <Irma Zhang - 01/20/18 14:38> Physical Exam Vital signs: Vital Signs 01/19/18 16:00 01/19/18 19:00 01/19/18 20:00 Temperature 98.6 F 98.4 F Pulse Rate 68 67 Respiratory Rate 16 16 Blood Pressure 108/69 95/53 L Pulse Oximetry 97 97 01/19/18 20:05 01/19/18 23:28 01/19/18 23:30 Temperature Pulse Rate 68 69 Respiratory Rate 16 16 16 Blood Pressure Pulse Oximetry 98 01/20/18 00:00 01/20/18 03:43 01/20/18 04:00 Temperature 98.2 F Pulse Rate 69 73 75 Respiratory Rate 16 18 17 Blood Pressure 110/85 84/45 L Pulse Oximetry 96 97 01/20/18 08:00 01/20/18 08:32 01/20/18 12:00 Temperature 98.6 F 98.3 F Pulse Rate 75 92 H 71 Respiratory Rate 18 17 16 Blood Pressure 88/56 L 103/53 L Pulse Oximetry 95 99 97 01/20/18 12:26 Temperature Pulse Rate 68 Respiratory Rate 16 Blood Pressure Pulse Oximetry 95 Intake & Output 01/19/18 01/20/18 01/20/18 18:59 06:59 18:59 Intake Total 2251.5 / 2251.5 711.2 / 711.2 1000 / 1000 Output Total 3200 / 3200 Balance -948.5 / -948.5 711.2 / 711.2 1000 / 1000 Intake: IV 2251.5 / 2251.5 711.2 / 711.2 1000 / 1000 Precedex Inj 1,000 MCG In NS 500 / 500 Inj 240 ML @ 0.2 MCG/KG/HR 4.98 mls/hr IV.CONT TITRATE PRN Rx# :[id number] D5W/Normal Saline Inj 1,000 ML 1000 / 1000 @ 84 mls/hr IV.CONT .[id number] [facility] Rx#:[id number] Versed Inj 50 mg In 50 ml @ 2 50 / 50 100 / 100 MG/HR 2 mls/hr IV.CONT TITRATE PRN Rx#:[id number] SandoSTATIN Inj 500 MCG In NS 500.5 / 500.5 Inj 500 ML @ 25 MCG/HR 25.02 mls/hr IV.CONT .Q20H1M [facility] Rx#: [id number] NS Inj 1,000 ML @ 50 mls/hr IV. 1000 / 1000 CONT .Q20H [facility] Rx#:[id number] Cipro 200 MG/100 ML Inj 200 mg 100 / 100 100 / 100 In 100 ml @ 100 mls/hr IV.SIG Q12H [facility] Rx#:[id number] MVI-12 Inj 10 ML Thiamine Inj 511.2 / 511.2 100 MG Folvite Inj 1 MG In NS Inj 500 ML @ 125 mls/hr IV.SIG Q24H [facility] Rx#:[id number] Thiamine Inj 100 MG In NS Inj 101 / 101 100 ML @ 100 mls/hr IV.SIG DAILY [facility] Rx#:[id number] Oral 0 / 0 Output: Urine 3200 / 3200 Other: # Incontinent Voids 5 Date of Last Bowel Movement 01/15/18 01/15/18 01/15/18 # Bowel Movements 0 0 <Florian Ritchie L - 01/20/18 15:53> Vital Signs 01/19/18 16:00 01/19/18 19:00 01/19/18 20:00 Temperature 98.6 F 98.4 F Pulse Rate 68 67 Respiratory Rate 16 16 Blood Pressure 108/69 95/53 L Pulse Oximetry 97 97 01/19/18 20:05 01/19/18 23:28 01/19/18 23:30 Temperature Pulse Rate 68 69 Respiratory Rate 16 16 16 Blood Pressure Pulse Oximetry 98 01/20/18 00:00 01/20/18 03:43 01/20/18 04:00 Temperature 98.2 F Pulse Rate 69 73 75 Respiratory Rate 16 18 17 Blood Pressure 110/85 84/45 L Pulse Oximetry 96 97 01/20/18 08:00 01/20/18 08:32 01/20/18 12:00 Temperature 98.6 F 98.3 F Pulse Rate 75 92 H 71 Respiratory Rate 18 17 16 Blood Pressure 88/56 L 103/53 L Pulse Oximetry 95 99 97 01/20/18 12:26 Temperature Pulse Rate 68 Respiratory Rate 16 Blood Pressure Pulse Oximetry 95 Intake & Output 01/19/18 01/20/18 01/20/18 18:59 06:59 18:59 Intake Total 2251.5 / 2251.5 711.2 / 711.2 1000 / 1000 Output Total 3200 / 3200 Balance -948.5 / -948.5 711.2 / 711.2 1000 / 1000 Intake: IV 2251.5 / 2251.5 711.2 / 711.2 1000 / 1000 Precedex Inj 1,000 MCG In NS 500 / 500 Inj 240 ML @ 0.2 MCG/KG/HR 4.98 mls/hr IV.CONT TITRATE PRN Rx# :[id number] D5W/Normal Saline Inj 1,000 ML 1000 / 1000 @ 84 mls/hr IV.CONT .[id number] [facility] Rx#:[id number] Versed Inj 50 mg In 50 ml @ 2 50 / 50 100 / 100 MG/HR 2 mls/hr IV.CONT TITRATE PRN Rx#:[id number] SandoSTATIN Inj 500 MCG In NS 500.5 / 500.5 Inj 500 ML @ 25 MCG/HR 25.02 mls/hr IV.CONT .Q20H1M [facility] Rx#: [id number] NS Inj 1,000 ML @ 50 mls/hr IV. 1000 / 1000 CONT .Q20H [facility] Rx#:[id number] Cipro 200 MG/100 ML Inj 200 mg 100 / 100 100 / 100 In 100 ml @ 100 mls/hr IV.SIG Q12H [facility] Rx#:[id number] MVI-12 Inj 10 ML Thiamine Inj 511.2 / 511.2 100 MG Folvite Inj 1 MG In NS Inj 500 ML @ 125 mls/hr IV.SIG Q24H [facility] Rx#:[id number] Thiamine Inj 100 MG In NS Inj 101 / 101 100 ML @ 100 mls/hr IV.SIG DAILY [facility] Rx#:[id number] Oral 0 / 0 Output: Urine 3200 / 3200 Other: # Incontinent Voids 5 Date of Last Bowel Movement 01/15/18 01/15/18 01/15/18 # Bowel Movements 0 0 <Irma Zhang Arpit - 01/20/18 14:38> Narrative: GENERAL: 52-year-old male currently orotracheally intubated SKIN: Warm and dry. No petechia or rash HEAD: Atraumatic. Normocephalic. EYES:No scleral icterus. No injection or drainage. ENT: No nasal bleeding or discharge. Mucous membranes pink and moist. NECK: Trachea midline. No JVD. CARDIOVASCULAR: Regular rate and rhythm. S1, S2 no S4. No murmur RESPIRATORY: Coarse rhonchorous breath sounds appreciated bilaterally. No wheezing. GASTROINTESTINAL: Abdomen soft, non-tender, slightly distended. Not palpate lower hepatic border MUSCULOSKELETAL: Extremities without clubbing, cyanosis, or edema. No obvious deformities. NEUROLOGICAL: Not following commands. <Irma Zhang Arpit - 01/20/18 14:38> Assessment and Plan - Assessment (1) Alcohol withdrawal Code(s): F10.239 - Alcohol dependence with withdrawal, unspecified Status: Acute (2) Abdominal pain Code(s): R10.9 - Unspecified abdominal pain Status: Acute (3) Esophageal varices in cirrhosis Code(s): K74.60 - Unspecified cirrhosis of liver; I85.10 - Secondary esophageal varices without bleeding Status: Chronic (4) Hypertension Code(s): I10 - Essential (primary) hypertension Status: Chronic (5) Alcohol abuse Code(s): F10.10 - Alcohol abuse, uncomplicated Status: Chronic (6) Depression with anxiety Code(s): F41.8 - Other specified anxiety disorders Status: Chronic (7) Cough Code(s): R05 - Cough Status: Acute (8) Diabetes Code(s): E11.9 - Type 2 diabetes mellitus without complications Status: Chronic (9) Deep vein thrombosis (DVT) of brachial vein Code(s): I82.629 - Acute embolism and thrombosis of deep veins of unspecified upper extremity Status: Acute (10) Nutrition, metabolism, and development symptoms Code(s): R63.8 - Other symptoms and signs concerning food and fluid intake Status: Acute <Florian Ritchie - 01/20/18 15:53> (1) Alcohol withdrawal Code(s): F10.239 - Alcohol dependence with withdrawal, unspecified Status: Acute Plan: Patient with extensive alcohol abuse history for the past 30 years complicated by cirrhosis and esophageal variceal GI bleed. Currently receiving treatment for alcoholism at [facility] since July of this year. Reports he is taking a medication to help with his alcoholism however he has not been compliant and has been drinking at least 2 beers per day. Presented to the ED with severe abdominal pain, vomiting and nausea. Continue with CIWA protocol Patient with worsening with alcohol withdrawal symptoms and was transferred to critical care on 01/18. Make Up Operator consulted, appreciate recommendations Patient placed on Precedex drip on 01/18 Patient placed n.p.o. c/w IV fluids D5NS 50 mL/hr Continue to monitor vital signs, continue to monitor ammonia and cmp Patient intubated on 01/19; PRVC 16/550/03/15/39 Currently on Versed 10 mg/hr and fentanyl 15 mL/hr drips for sedation/ analgesia while intubated Continue vitamin bag daily times [address] brain pending Ammonia level elevated at 70-> 81->98->72->59 Lactulose increased from daily to 3 times daily Rifaximin 550 BID monitor ammonia levels (2) Abdominal pain Code(s): R10.9 - Unspecified abdominal pain Status: Acute Plan: Patient is a 52-year-old male with past medical history of alcoholism, cirrhosis and esophageal variceal GI bleed who presented to the ED with complaint of umbilical abdominal pain, nausea, and vomiting for the past 2 days. Patient reports tooth extraction 2 days prior to admission and malaise ( abdominal pain, vomiting x10 times with questionable blood in vomit which he attributes to tooth extraction however due to patient's history of upper GI bleed due to esophageal varices will consult GI for further evaluation). On admission patient was slightly hypertensive however he was afebrile and no leukocytosis appreciated on CBC. CT abdomen: Showing edema of mesenteric, small metallic object in the transverse colon (which may have been part of patient's dental filling) and cirrhosis with portal hypertension and significant esophageal varices. Zofran for nausea Pain controlled with hydromorphone PRN which patient has had in the past without any adverse reactions Protonix IV twice daily Cipro for prophylaxis octreotide drip 25 mcg/h GI consulted for further recommendations, -Protonix, prophylactic antibiotic and octreotide drip -H&H stable and abdominal ultrasound negative for ascites -EGD procedure 01/16 showed: Esophageal varices grade 2 status post 4 band applied, biopsies taken from gastric antrum. Repeat EGD in 2 months. -vocal cord mass noted on intubation and ENT was consulted for further evaluation. -non-selective beta deena and follow up outpatient in two weeks. - GI has signed off ENT consulted Normal evaluation of vocal cords with laryngoscope neck CT no abnormal findings, no evidence of laryngeal lesion -will assess as needed (3) Esophageal varices in cirrhosis Code(s): K74.60 - Unspecified cirrhosis of liver; I85.10 - Secondary esophageal varices without bleeding Status: Chronic Plan: See plan above for abdominal pain (4) Hypertension Code(s): I10 - Essential (primary) hypertension Status: Chronic Plan: Resume home medications Clonidine PRN Continue to monitor blood pressure. (5) Alcohol abuse Code(s): F10.10 - Alcohol abuse, uncomplicated Status: Chronic Plan: See alcohol withdrawal plan above (6) Depression with anxiety Code(s): F41.8 - Other specified anxiety disorders Status: Chronic Plan: Resume home medications (7) Cough Code(s): R05 - Cough Status: Acute Plan: Patient with history of chronic cough and wheezing. -GI saw abnormal vocal cords for EGD so consulted Pulmonology and ENT -Pulmonology: recommended aerosol treatment and tessalon 200 mg TID and smoking cessation. Recommended follow up pulmonary function studies once acute illness treated. -ENT: CT neck was negative. No mass visualized with laryngoscopy. Can follow up OP for post nasal drip (8) Diabetes Code(s): E11.9 - Type 2 diabetes mellitus without complications Status: Chronic Plan: Sliding scale insulin low Accu-Cheks Hypoglycemia protocol (9) Deep vein thrombosis (DVT) of brachial vein Code(s): I82.629 - Acute embolism and thrombosis of deep veins of unspecified upper extremity Status: Acute Plan: 1111 venous Doppler study: DVT of right mid brachial vein Anticoagulation therapy contraindicated currently given GI bleed (10) Nutrition, metabolism, and development symptoms Code(s): R63.8 - Other symptoms and signs concerning food and fluid intake Status: Acute Plan: Fluids: IV fluids NS D5 100 mL/HR Electrolytes: Replete as needed Diet: N.p.o. DVT prophylaxis: SCDs; pharmacological prophylaxis contraindicated with GI bleed. <Irma Zhang - 01/20/18 14:53> - Attending Attestation The exam, history, and the medical decision-making described in the above note were completed with the assistance of the resident physician. I reviewed and agree with the findings presented. I attest that I had a [id number] encounter with the patient on the same day, and personally performed and documented my assessment and findings in the medical record. 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 He became agitated when sedation weaned. Going for CT head today to rule out acute process. Ammonia trending down with rifaximin and lactulose. He may be in severe alcohol withdrawal for several days to a week. <Florian Ritchie - 01/20/18 15:53>
[2018-01-20] MEDS: Propofol 1000 mg/100 ml Inj 1,000 MG/100 ML BOTTLE IV.CONT PRN ×2 (16:19→23:04)
--- NOTE | 2018-01-20 16:53 | CT ---
EXAM DATE: 01/20/2018 4:49 PM EST AGE/SEX: 52 years / Male INDICATIONS: Altered mental status CLINICAL DATA: This is the patient's initial encounter. Patient reports that signs and symptoms have been present for 1 day and indicates a pain score of Nonresponsive. MEDICAL/SURGICAL HISTORY: Diabetes. Hypertension. None. RADIATION DOSE: 64.63 CTDI (mGy) COMPARISON: [facility] [place], CT HEAD W/O CONTRAST, 11/13/2017. . TECHNIQUE: CT of the head without contrast. Using automated exposure control and adjustment of the mA and/or kV according to patient size, radiation dose was kept as low as reasonably achievable to ob tain optimal diagnostic quality images. DICOM format image data is available electronically for revi ew and comparison. FINDINGS: Cerebrum: The ventricles are normal for age. No evidence of midline shift, mass lesion, hemorrhage or acute infarction. No extraaxial fluid collections are seen. Posterior Fossa: The cerebellum and brainstem are intact. The 4th ventricle is midline. The cerebe llopontine angle is unremarkable. Extracranial: The visualized portion of the orbits is intact. Skull: The calvaria is intact. No evidence of skull fracture. CONCLUSION: 1. Negative for an acute process . Electronically signed by: Juanito Mcdaniel MD 01/20/2018 4:52 PM EST
[2018-01-20] MEDS ORDERED: Vancomycin Consult Pharmacy OTHER PRN (18:06)
[2018-01-20] MEDS: Multivitamin Inj 10 ML, Thiamine Inj 100 MG, Folic Acid Inj 1 MG in Sodium Chlor 0.9% I... IV.SIG SCH (18:13)
--- NOTE | 2018-01-20 19:28 | P.PNPL ---
Subjective Interval history: 52 YO male with GIB, cirrhosis Developed resp distress, agitation Intubated Sedated with Fentanyl, diprivan and Versed Physical Exam Vital signs: Vital Signs 01/19/18 20:00 01/19/18 20:05 01/19/18 23:28 Temperature 98.4 F Pulse Rate 67 68 69 Respiratory Rate 16 16 16 Blood Pressure 95/53 L Pulse Oximetry 97 01/19/18 23:30 01/20/18 00:00 01/20/18 03:43 Temperature Pulse Rate 69 73 Respiratory Rate 16 16 18 Blood Pressure 110/85 Pulse Oximetry 98 96 01/20/18 04:00 01/20/18 08:00 01/20/18 08:32 Temperature 98.2 F 98.6 F Pulse Rate 75 75 92 H Respiratory Rate 17 18 17 Blood Pressure 84/45 L 88/56 L Pulse Oximetry 97 95 99 01/20/18 12:00 01/20/18 12:26 01/20/18 16:00 Temperature 98.3 F 98.4 F Pulse Rate 71 68 70 Respiratory Rate 16 16 16 Blood Pressure 103/53 L 102/59 L Pulse Oximetry 97 95 99 01/20/18 16:56 01/20/18 17:04 01/20/18 18:44 Temperature Pulse Rate 79 Respiratory Rate 19 16 Blood Pressure Pulse Oximetry 100 100 Intake & Output 01/20/18 01/20/18 01/21/18 06:59 18:59 06:59 Intake Total 711.2 / 711.2 1350 / 1350 Output Total 1800 / 1800 Balance 711.2 / 711.2 -450 / -450 Intake: IV 711.2 / 711.2 1350 / 1350 Versed Inj 50 mg In 50 ml @ 2 100 / 100 MG/HR 2 mls/hr IV.CONT TITRATE PRN Rx#:[id number] Diprivan 1000 mg/100 ml Inj 1, 100 / 100 000 mg In 100 ml @ 5 MCG/KG/MIN 2.994 mls/hr IV.CONT TITRATE PRN Rx#:[id number] NS Inj 1,000 ML @ 50 mls/hr IV. 1000 / 1000 CONT .Q20H [facility] Rx#:[id number] Cipro 200 MG/100 ML Inj 200 mg 100 / 100 In 100 ml @ 100 mls/hr IV.SIG Q12H [facility] Rx#:[id number] MVI-12 Inj 10 ML Thiamine Inj 511.2 / 511.2 100 MG Folvite Inj 1 MG In NS Inj 500 ML @ 125 mls/hr IV.SIG Q24H [facility] Rx#:[id number] fentaNYL 10 mcg/mL Premix Drip 250 / 250 2,500 mcg In 250 ml @ 50 MCG/HR 5 mls/hr IV.SIG TITRATE PRN Rx #:[id number] Oral 0 / 0 0 / 0 Output: Urine 1800 / 1800 Other: # Incontinent Voids 5 Date of Last Bowel Movement 01/15/18 01/15/18 # Bowel Movements 0 GENERAL: WBWn, on vent SKIN: Warm and dry. HEAD: Normocephalic. EYES: No scleral icterus. No injection or drainage. NECK: Supple, trachea midline. No JVD or lymphadenopathy. CARDIOVASCULAR: Regular rate and rhythm without murmurs, gallops, or rubs. RESPIRATORY: Breath sounds equal bilaterally. No accessory muscle use. GASTROINTESTINAL: Abdomen soft, non-tender, nondistended. MUSCULOSKELETAL: No cyanosis, or edema. BACK: Nontender without obvious deformity. No CVA tenderness. Assessment and Plan - Plan IMPRESSION: 1. Mild shortness of breath and cough, possibly underlying asthma. 2. Hypertension. 3. Diabetes mellitus. 4. Cirrhosis of the liver. 5. VDRF PLAN: Vent support PRVC AC, Fi02 45% Sedation with Fentanyl, Diprivan And Versed For CT brain
[2018-01-20] MEDS ORDERED: Vancomycin Inj 1,000 MG in Sodium Chlor 0.9% Inj 250 ML IV.SIG ONE (20:00)
[2018-01-21] MEDS: Midazolam 50 MG/50 ML Inj 50 MG/50 ML BAG IV.CONT PRN ×2 (01:46→19:36)
[2018-01-21] MEDS: Insulin NovoLOG Aspart Correctional Sugar Inj SQ SCH ×5 (03:23→20:38)
[2018-01-21] MEDS: Oral Hygiene Kit OROPHARYNG SCH ×3 (04:15→16:24)
[2018-01-21] MEDS: Benzonatate 100 MG Capsule PO SCH ×3 (04:16→20:39)
[2018-01-21] MEDS: Propofol 1000 mg/100 ml Inj 1,000 MG/100 ML BOTTLE IV.CONT PRN ×2 (05:56→20:39)
[2018-01-21] MEDS: Artificial Tears Opth Drops 15 ML Bottle EACH EYE SCH ×3 (05:57→21:34)
[2018-01-21] MEDS ORDERED: Vancomycin Inj 1,150 MG in Sodium Chlor 0.9% Inj 250 ML IV.SIG SCH (08:00)
--- NOTE | 2018-01-21 08:26 | P.PNCC ---
Subjective Subjective Remarks/Hospital Course: The patient is a 52-year-old male with a past medical history of ETOH abuse, cirrhosis of liver secondary to alcohol, hypertension, diabetes mellitus, anxiety, depression, prior history of upper gastrointestinal bleed x2 due to esophageal varices. The patient was admitted under the family medicine team on 01/15/[address] for abdominal pain. A CT scan of the abdomen and pelvis showed a cirrhotic liver with evidence of portal hypertension and prominent gastroesophageal varices. No ascites noted. The patient also underwent an ultrasound of the abdomen, which showed no significant ascites. He was seen by GI service and underwent upper endoscopy on 01/16/2018 which showed grade2 esophageal varices, status post banding x4, gastritis and hiatal hernia. The patient also had a CT scan of the chest on 01/16/2018 which showed mild infiltrates in the posterior lower lung hussein suggestive of atelectasis and nonspecific 1.5 cm lymph node in the anterior superior mediastinum. He is being followed by Dr. Maki from pulmonary service. Due to altered mental status and possible alcohol withdrawal he was transferred to ICU and critical care medicine was consulted for critical care management. He received Ativan 6-8 mg total along with Haldol and the patient remained restless and agitated. Most of the history was obtained from reviewing medical records as the patient is a poor historian. ABG was performed this morning on room air, which showed a pH of 7.44, CO2 41, PaO2 69, bicarbonate 27, saturation 91%. Subjective 01/19: Patient with worsening oxygenation status. Essentially unresponsive obtunded. Ammonia level is 98 this morning. Elective intubation. 01/20 Patient is intubated and sedated, afebrile. 01/21 Patient remains sedated with Fentnayl, Diprivan and Versed. T;100.5, CT brain yesterday no acute findings. Objective Vital Signs / I&O: Vital Signs 01/20/18 08:32 01/20/18 12:00 01/20/18 12:26 Temperature 98.3 F Pulse Rate 92 H 71 68 Respiratory Rate 17 16 16 Blood Pressure 103/53 L Pulse Oximetry 99 97 95 01/20/18 16:00 01/20/18 16:15 01/20/18 16:56 Temperature 98.4 F Pulse Rate 70 68 104 H Respiratory Rate 16 17 29 H Blood Pressure 102/59 L 104/59 L 150/86 H Pulse Oximetry 99 99 95 01/20/18 17:00 01/20/18 17:04 01/20/18 17:15 Temperature Pulse Rate 83 79 80 Respiratory Rate 16 19 16 Blood Pressure 130/78 121/71 Pulse Oximetry 100 100 100 01/20/18 17:30 01/20/18 17:45 01/20/18 18:00 Temperature Pulse Rate 79 77 77 Respiratory Rate 16 16 16 Blood Pressure 114/67 116/70 118/75 Pulse Oximetry 100 100 100 01/20/18 18:15 01/20/18 18:30 01/20/18 18:44 Temperature Pulse Rate 75 75 Respiratory Rate 16 16 16 Blood Pressure 113/64 115/72 Pulse Oximetry 100 100 01/20/18 18:45 01/20/18 19:00 01/20/18 19:15 Temperature Pulse Rate 77 76 84 Respiratory Rate 16 16 15 Blood Pressure 122/79 124/72 132/81 Pulse Oximetry 100 100 99 01/20/18 19:30 01/20/18 19:44 01/20/18 19:45 Temperature 98.2 F Pulse Rate 85 93 H 98 H Respiratory Rate 13 20 24 Blood Pressure 135/86 131/77 Pulse Oximetry 100 100 98 01/20/18 20:00 01/20/18 20:01 01/20/18 20:15 Temperature Pulse Rate 84 87 84 Respiratory Rate 17 16 16 Blood Pressure 134/81 132/78 Pulse Oximetry 100 100 100 01/20/18 20:30 01/20/18 20:45 01/20/18 21:00 Temperature Pulse Rate 89 87 87 Respiratory Rate 18 19 16 Blood Pressure 137/85 144/83 H 143/81 H Pulse Oximetry 100 98 99 01/20/18 21:15 01/20/18 21:30 01/20/18 21:45 Temperature Pulse Rate 93 H 86 83 Respiratory Rate 24 17 16 Blood Pressure 128/77 153/75 H 140/81 Pulse Oximetry 97 98 99 01/20/18 22:00 01/20/18 22:15 01/20/18 22:31 Temperature Pulse Rate 80 80 87 Respiratory Rate 16 16 22 Blood Pressure 142/85 H 142/84 H 142/90 H Pulse Oximetry 99 99 99 01/20/18 22:45 01/20/18 23:00 01/20/18 23:15 Temperature Pulse Rate 84 77 77 Respiratory Rate 18 16 16 Blood Pressure 152/89 H 141/77 H 139/82 Pulse Oximetry 99 99 100 01/20/18 23:30 01/20/18 23:51 01/21/18 00:00 Temperature 98.6 F Pulse Rate 76 76 79 Respiratory Rate 16 19 17 Blood Pressure 140/84 Pulse Oximetry 100 100 100 01/21/18 00:02 01/21/18 03:20 01/21/18 03:50 Temperature Pulse Rate 79 97 H Respiratory Rate 16 26 H 16 Blood Pressure 133/73 Pulse Oximetry 100 100 01/21/18 04:00 01/21/18 07:59 Temperature 100.5 F H Pulse Rate 84 82 Respiratory Rate 16 16 Blood Pressure 134/77 Pulse Oximetry 100 100 Intake & Output 01/20/18 01/21/18 01/21/18 18:59 06:59 18:59 Intake Total 1400 / 1400 1367.2 / 1367.2 Output Total 1800 / 1800 600 / 600 Balance -400 / -400 767.2 / 767.2 Intake: IV 1400 / 1400 1111.2 / 1111.2 Versed Inj 50 mg In 50 ml @ 2 50 / 50 50 / 50 MG/HR 2 mls/hr IV.CONT TITRATE PRN Rx#:[id number] Diprivan 1000 mg/100 ml Inj 1, 100 / 100 200 / 200 000 mg In 100 ml @ 5 MCG/KG/MIN 2.994 mls/hr IV.CONT TITRATE PRN Rx#:[id number] NS Inj 1,000 ML @ 50 mls/hr IV. 1000 / 1000 CONT .Q20H MANUEL Rx#:[id number] Cipro 200 MG/100 ML Inj 200 mg 100 / 100 In 100 ml @ 100 mls/hr IV.SIG Q12H MANUEL Rx#:[id number] MVI-12 Inj 10 ML Thiamine Inj 511.2 / 511.2 100 MG Folvite Inj 1 MG In NS Inj 500 ML @ 125 mls/hr IV.SIG Q24H MANUEL Rx#:[id number] Vancomycin Inj 1,000 MG In NS 250 / 250 Inj 250 ML @ 250 mls/hr IV.SIG ONCE ONE Rx#:[id number] fentaNYL 10 mcg/mL Premix Drip 250 / 250 2,500 mcg In 250 ml @ 50 MCG/HR 5 mls/hr IV.SIG TITRATE PRN Rx #:[id number] Oral 0 / 0 Tube Feeding 216 / 216 Tube Irrigant 40 / 40 Output: Urine 1800 / 1800 600 / 600 Other: Date of Last Bowel Movement 01/15/18 01/15/18 Result Diagrams: 01/21/18 07:15 01/21/18 07:15 Other Results: Laboratory Results - last 12 hr 01/20/18 01/20/18 01/21/18 20:29 23:22 03:16 POC Glucose 82 94 101 01/21/18 07:52 POC Glucose 125 H Imaging: Abdomen Ultrasound 01/15/18 00:00 CONCLUSION: 1. No significant ascites. Abdomen/Pelvis CT 01/15/18 07:18 CONCLUSION: 1. There is a very small ingested metallic foreign body in the mid transverse colon without evidence for colitis or perforation at this time. This does not have the typical appearance of a barbecue bristle although this cannot be entirely excluded. 2. Cirrhotic liver with evidence for portal hypertension and prominent gastroesophageal varices. There is no ascites although there is diffuse mesenteric edema. This is particularly prominent near the fourth portion of the duodenum. Suspect this is dependent mesenteric edema rather than duodenitis. 3. Additional ancillary findings, as above. Abdomen X-Ray 01/16/18 00:00 CONCLUSION: 1. 4 mm linear metallic density in the right mid quadrant possibly representing a small surgical clip. 2. Otherwise, unremarkable exam. Chest CT 01/16/18 00:00 CONCLUSION: 1. Mild infiltrates are noted in the posterior lower lung hussein bilaterally suggestive of atelectasis. Otherwise, lung hussein are grossly clear. 2. Nonspecific 1.5 cm lymph node in the anterior superior mediastinum. 3. Nonspecific thickening involving the distal esophagus. If clinically indicated, a barium swallow could be performed on a nonemergent outpatient basis. Soft Tissue Neck CT 01/16/18 00:00 CONCLUSION: 1. Grossly unremarkable CT soft tissue neck for patient's age. 2. Nonspecific 1.5 cm lymph node in the anterior superior mediastinum. Chest X-Ray 01/19/18 13:07 CONCLUSION: Intubation with endotracheal tube in good position. Venous Doppler Study 01/19/18 17:08 CONCLUSION: 1. Positive for nonocclusive deep venous thrombosis in the right mid brachial vein. Head CT 01/20/18 06:00 CONCLUSION: 1. Negative for an acute process . Objective Remarks: GENERAL: 52-year-old male currently orotracheally intubated SKIN: Warm and dry. No petechia or rash HEAD: Atraumatic. Normocephalic. EYES: Pupils equal and round about 3 mm bilaterally and reactive. No scleral icterus. No injection or drainage. ENT: No nasal bleeding or discharge. Mucous membranes pink and moist. NECK: Trachea midline. No JVD. CARDIOVASCULAR: Regular rate and rhythm. S1, S2 no S4. No murmur RESPIRATORY: B/l equa air entry GASTROINTESTINAL: Abdomen soft, non-tender, slightly distended. MUSCULOSKELETAL: Extremities without clubbing, cyanosis, or edema. No obvious deformities. NEUROLOGICAL: Intubated and sedated. Assessment and Plan - Assessment and Plan Plan: 1. Altered mental status/toxic metabolic encephalopathy secondary to elevated ammonia and delirium tremens. 2. VDRF 3. Cirrhosis of the liver secondary to ETOH abuse. 4. 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 5. Hypertension. 6. Diabetes mellitus hemoglobin A1c 6.0. 7. Ongoing abuse/EtOH 8. History of cannabinoids use 9. Hypoalbuminemia 10. Esophageal varices status post banding by GI 11. Elevated BMI Neuro/Psych: Currently on Versed/fentanyl/Diprivan drips for sedation/analgesia while intubated Goal of RA SS -[address] brain 01/20: No acute intracranial findings Continue vitamin bag daily times 3 days for EtOH withdrawal. CV: Monitor HR and BP keep MAP>65mmHg Continue amlodipine 5 mg daily and lisinopril 40 mg daily Continue propranolol l 20 mg twice daily As needed clonidine 0.1 mg every 6 hours Continue pravastatin 40 mg daily for hyperlipidemia Resp: [facility] 16/550/03/15/39 Ventilator bundle Albuterol/ipratropium aerosols every 4 hours with albuterol aerosols every 2 hours as needed dyspnea. Spontaneous breathing trials as juan GI: Status post EGD on 01/16/2018 which showed grade 2 esophageal varices, status post banding x4. Abdominal ultrasound on 01/15/2018 showed no evidence of significant ascites. On tube feeds-Glucerna 1.5 with goal rate 50ml/hr Pantoprazole 40 m IV twice daily for GI prophylaxis On lactulose 30 cc 3 times daily and Xifaxan 550 mg twice daily. Ammonia level 56 from 72. : Monitor renal function, electrolytes replacement per protocol. will need K, Phos replacement today. d/c IVF Endo: Sliding scale insulin with Accu-Cheks every 6 hours to maintain euglycemia Hemoglobin A1c was 6.0 Heme: Monitor CBC No indication for transfusion of blood products at this time. ID: Continue Vanco, d/c Cipro and add Zosyn. Monitor for signs of infections ( Fever , WBC) Sputum cx01/19: MRSA Check BC x 2 sets MSK: Weight loss encouraged Access -Utilize peripheral IV. Prophylaxis -GI-pantoprazole - -DVT SCD/pharmacological prophylaxis contraindicated with bleeding and esophageal varices on EGD - 01/19 Doppler US RUE: Positive for nonocclusive deep venous thrombosis in the right mid brachial vein. Follow Up on lab Level 3
[2018-01-21 08:33] LABS: Baso % (Auto) 0.3 % (0.0-2.0); Eos # (Auto) 0.2 th/mm3 (0.0-0.4); Eos % (Auto) 1.2 % (0.0-4.0); Hemoglobin 11.7 gm/dL (13.0-17.0); Lymph # (Auto) 0.7 th/mm3 (1.0-4.8); Lymph % (Auto) 4.7 % (9.0-44.0); Mean Corpuscular HGB Conc 32.4 % (32.0-36.0); Mean Corpuscular Hemoglobin 25.9 pg (27.0-34.0); Mean Corpuscular Volume 79.8 fL (80.0-100.0); Mean Platelet Volume 8.8 fL (7.0-11.0); Mono # (Auto) 2.6 th/mm3 (0.0-0.9); Mono % (Auto) 17.4 % (0.0-8.0); Neut # (Auto) 11.7 th/mm3 (1.8-7.7); Neut % (Auto) 76.4 % (16.0-70.0); Platelet Count 81 th/mm3 (150-450); Red Blood Count 4.52 mil/mm3 (4.50-5.90); Red Cell Distribution Width 17.7 % (11.6-17.2); White Blood Count 15.3 th/mm3 (4.0-11.0)
[2018-01-21 08:50] LABS: Albumin 2.7 g/dL (3.4-5.0); Anion Gap 9 meq/L (5-15); Aspartate Aminotransferase 30 U/L (15-37); Blood Urea Nitrogen 13 mg/dL (7-18); Calcium 7.7 mg/dL (8.5-10.1); Carbon Dioxide 24.7 meq/L (21.0-32.0); Chloride 108 meq/L (98-107); Glomerular Filtration Rate Greater Than 89 mL/min (>89); Glucose,Random 121 mg/dL (74-106); Magnesium 1.7 mg/dL (1.5-2.5); Potassium 3.4 meq/L (3.5-5.1); Sodium 142 meq/L (136-145)
[2018-01-21 09:03] LABS: Alanine Aminotransferase 14 U/L (12-78); Alkaline Phosphatase 116 U/L (45-117); Phosphorus 1.5 mg/dL (2.5-4.9); Total Protein 6.5 g/dL (6.4-8.2)
[2018-01-21 09:14] LABS: Platelet Morphology Normal (Normal)
[2018-01-21] MEDS: Pantoprazole Inj 40 MG Vial IV.PUSH SCH ×2 (09:20→20:36)
[2018-01-21] MEDS: rifAXIMin 550 MG Tablet PO SCH ×2 (09:21→20:37)
[2018-01-21] MEDS: Senna/Docusate Sodium 8.6/50 MG Tablet PO SCH ×2 (09:21→20:38)
[2018-01-21] MEDS: Lisinopril 20 MG Tablet PO SCH (09:21)
[2018-01-21] MEDS: amLODIPine 5 MG Tablet PO SCH (09:21)
[2018-01-21] MEDS: Divalproex 500 MG DR Tablet PO SCH (09:23)
[2018-01-21] MEDS: Sod Chloride 0.9% Inj 1,000 ML IV.CONT SCH (09:23)
[2018-01-21] MEDS: Chlorhexidine 0.12% Oral Kit 15 ML UDC OROPHARYNG SCH ×2 (09:24→20:38)
[2018-01-21] MEDS: Piperacil/Tazo 4.5 GM Premix 4.5 GM/100 ML BAG IV.SIG SCH ×3 (09:25→20:37)
--- NOTE | 2018-01-21 09:33 | XR ---
EXAM DATE: 01/21/2018 9:01 AM EST AGE/SEX: 52 years / Male INDICATIONS: Short of breath, evaluate pneumonia CLINICAL DATA: This is the patient's subsequent encounter. Patient reports that signs and symptoms h ave been present for 3 days and indicates a pain score of Nonresponsive. MEDICAL/SURGICAL HISTORY: Diabetes. Hypertension. esophageal varices . abdominal laparotomy COMPARISON: C, CHEST 1V SINGLE AP, 01/19/2018. . FINDINGS: The endotracheal tube is in good position. There is a nasogastric tube present. There are areas of atelectasis in both lung bases. This is new compared to previous dated 01/19/2018. There is no pleural effusion. No pneumothorax is seen. The bony structures are intact. CONCLUSION: Support equipment in good position. Small areas of atelectasis in both lung bases. Electronically signed by: Edouard Mcdaniel MD 01/21/2018 9:32 AM EST
[2018-01-21] MEDS ORDERED: Sodium Phosphate Inj 30 MMOL in Sodium Chlor 0.9% Inj 250 ML IV.SIG PRN (09:53)
[2018-01-21] MEDS ORDERED: Potassium Chloride 25 MEQ Effervescent Tablet PO PRN (09:53)
[2018-01-21] MEDS ORDERED: Potassium Phosphate Inj 30 MMOL in Sodium Chlor 0.9% Inj 250 ML IV.SIG PRN (09:53)
[2018-01-21] MEDS ORDERED: Potassium Phosphate 500 MG Soluble Tablet PO PRN (09:53)
[2018-01-21] MEDS ORDERED: Magnesium Sulfate Inj 4 GM in Sodium Chlor 0.9% Inj 92 ML IV.SIG PRN (09:53)
[2018-01-21] MEDS ORDERED: Potassium Chlor 20 mEq Premix 20 MEQ/100 ML PIGGYBACK IV.SIG PRN (09:53)
[2018-01-21] MEDS ORDERED: Potassium Chlor 40 mEq Premix 40 MEQ/100 ML PIGGYBACK IV.SIG PRN ×2 (09:53)
[2018-01-21] MEDS ORDERED: Magnesium Sulfate Inj 2 GM in Sodium Chlor 0.9% Inj 96 ML IV.SIG PRN (09:53)
[2018-01-21] MEDS ORDERED: Magnesium Oxide 400 MG Tablet PO PRN (09:53)
[2018-01-21] MEDS: fentaNYL 10 mcg/mL Premix Drip 2,500 MCG/250 ML BAG IV.SIG PRN (11:14)
--- NOTE | 2018-01-21 12:18 | P.PNFP ---
Subjective Interval history: No acute events overnight. Patient still agitated when trying to decrease sedation medication. Patient had a fever overnight of 100.5. <Irma Zhang C - 01/21/18 12:18> Results - Labs Result diagrams: 01/21/18 07:15 01/21/18 07:15 <Florian Ritchie - 01/21/18 17:16> Abnormal lab results 01/21/18 01/21/18 01/21/18 Range/Units 07:15 07:15 07:52 WBC 15.3 H (4.0-11.0) th/mm3 Hgb 11.7 L (13.0-17.0) gm/dL Hct 36.0 L (39.0-51.0) % MCV 79.8 L (80.0-100.0) fL MCH 25.9 L (27.0-34.0) pg RDW 17.7 H (11.6-17.2) % Plt Count 81 L D (150-450) th/mm3 Neut % (Auto) 76.4 H (16.0-70.0) % Lymph % (Auto) 4.7 L (9.0-44.0) % [place] % (Auto) 17.4 H (0.0-8.0) % Neut # (Auto) 11.7 H (1.8-7.7) th/mm3 Lymph # (Auto) 0.7 L (1.0-4.8) th/mm3 [place] # (Auto) 2.6 H (0.0-0.9) th/mm3 Platelet Estimate Low L (Normal) Potassium 3.4 L (3.5-5.1) meq/L Chloride 108 H (98-107) meq/L POC Glucose 125 H (68-110) mg/dl Random Glucose 121 H (74-106) mg/dL Calcium 7.7 L (8.5-10.1) mg/dL Phosphorus 1.5 L D (2.5-4.9) mg/dL Total Bilirubin 1.4 H (0.2-1.0) mg/dL Albumin 2.7 L (3.4-5.0) g/dL 01/21/18 Range/Units 12:01 WBC (4.0-11.0) th/mm3 Hgb (13.0-17.0) gm/dL Hct (39.0-51.0) % MCV (80.0-100.0) fL MCH (27.0-34.0) pg RDW (11.6-17.2) % Plt Count (150-450) th/mm3 Neut % (Auto) (16.0-70.0) % Lymph % (Auto) (9.0-44.0) % [place] % (Auto) (0.0-8.0) % Neut # (Auto) (1.8-7.7) th/mm3 Lymph # (Auto) (1.0-4.8) th/mm3 [place] # (Auto) (0.0-0.9) th/mm3 Platelet Estimate (Normal) Potassium (3.5-5.1) meq/L Chloride (98-107) meq/L POC Glucose 114 H (68-110) mg/dl Random Glucose (74-106) mg/dL Calcium (8.5-10.1) mg/dL Phosphorus (2.5-4.9) mg/dL Total Bilirubin (0.2-1.0) mg/dL Albumin (3.4-5.0) g/dL Short CBC 01/21/18 Range/Units 07:15 WBC 15.3 H (4.0-11.0) th/mm3 Hgb 11.7 L (13.0-17.0) gm/dL Hct 36.0 L (39.0-51.0) % Plt Count 81 L D (150-450) th/mm3 BMP 01/21/18 07:15 Sodium 142 Potassium 3.4 L Chloride 108 H Carbon Dioxide 24.7 BUN 13 Creatinine 0.81 Calcium 7.7 L Liver Function 01/21/18 Range/Units 07:15 Total Bilirubin 1.4 H (0.2-1.0) mg/dL AST 30 (15-37) U/L ALT 14 (12-78) U/L Alkaline Phosphatase 116 (45-117) U/L Albumin 2.7 L (3.4-5.0) g/dL <Florian Ritchie L - 01/21/18 17:16> Abnormal lab results 01/20/18 01/21/18 01/21/18 Range/Units 13:24 07:15 07:15 WBC 15.3 H (4.0-11.0) th/mm3 Hgb 11.7 L (13.0-17.0) gm/dL Hct 36.0 L (39.0-51.0) % MCV 79.8 L (80.0-100.0) fL MCH 25.9 L (27.0-34.0) pg RDW 17.7 H (11.6-17.2) % Plt Count 81 L D (150-450) th/mm3 Neut % (Auto) 76.4 H (16.0-70.0) % Lymph % (Auto) 4.7 L (9.0-44.0) % [place] % (Auto) 17.4 H (0.0-8.0) % Neut # (Auto) 11.7 H (1.8-7.7) th/mm3 Lymph # (Auto) 0.7 L (1.0-4.8) th/mm3 [place] # (Auto) 2.6 H (0.0-0.9) th/mm3 Platelet Estimate Low L (Normal) Potassium 3.4 L (3.5-5.1) meq/L Chloride 108 H (98-107) meq/L POC Glucose (68-110) mg/dl Random Glucose 121 H (74-106) mg/dL Calcium 7.7 L (8.5-10.1) mg/dL Phosphorus 1.5 L D (2.5-4.9) mg/dL Total Bilirubin 1.4 H (0.2-1.0) mg/dL Ammonia 56 H (11-32) mcmol/L Albumin 2.7 L (3.4-5.0) g/dL 01/21/18 01/21/18 Range/Units 07:52 12:01 WBC (4.0-11.0) th/mm3 Hgb (13.0-17.0) gm/dL Hct (39.0-51.0) % MCV (80.0-100.0) fL MCH (27.0-34.0) pg RDW (11.6-17.2) % Plt Count (150-450) th/mm3 Neut % (Auto) (16.0-70.0) % Lymph % (Auto) (9.0-44.0) % [place] % (Auto) (0.0-8.0) % Neut # (Auto) (1.8-7.7) th/mm3 Lymph # (Auto) (1.0-4.8) th/mm3 [place] # (Auto) (0.0-0.9) th/mm3 Platelet Estimate (Normal) Potassium (3.5-5.1) meq/L Chloride (98-107) meq/L POC Glucose 125 H 114 H (68-110) mg/dl Random Glucose (74-106) mg/dL Calcium (8.5-10.1) mg/dL Phosphorus (2.5-4.9) mg/dL Total Bilirubin (0.2-1.0) mg/dL Ammonia (11-32) mcmol/L Albumin (3.4-5.0) g/dL Short CBC 01/21/18 Range/Units 07:15 WBC 15.3 H (4.0-11.0) th/mm3 Hgb 11.7 L (13.0-17.0) gm/dL Hct 36.0 L (39.0-51.0) % Plt Count 81 L D (150-450) th/mm3 BMP 01/21/18 07:15 Sodium 142 Potassium 3.4 L Chloride 108 H Carbon Dioxide 24.7 BUN 13 Creatinine 0.81 Calcium 7.7 L Liver Function 01/21/18 Range/Units 07:15 Total Bilirubin 1.4 H (0.2-1.0) mg/dL AST 30 (15-37) U/L ALT 14 (12-78) U/L Alkaline Phosphatase 116 (45-117) U/L Albumin 2.7 L (3.4-5.0) g/dL <Irma Zhang - 01/21/18 12:18> - Imaging Impressions Chest X-Ray 01/21/18 00:00 CONCLUSION: Support equipment in good position. Small areas of atelectasis in both lung bases. <Florian Ritchie - 01/21/18 17:16> Impressions Head CT 01/20/18 06:00 CONCLUSION: 1. Negative for an acute process . Chest X-Ray 01/21/18 00:00 CONCLUSION: Support equipment in good position. Small areas of atelectasis in both lung bases. <Irma Zhang - 01/21/18 12:18> Physical Exam Vital signs: Vital Signs 01/20/18 17:15 01/20/18 17:30 01/20/18 17:45 Temperature Pulse Rate 80 79 77 Respiratory Rate 16 16 16 Blood Pressure 121/71 114/67 116/70 Pulse Oximetry 100 100 100 01/20/18 18:00 01/20/18 18:15 01/20/18 18:30 Temperature Pulse Rate 77 75 75 Respiratory Rate 16 16 16 Blood Pressure 118/75 113/64 115/72 Pulse Oximetry 100 100 100 01/20/18 18:44 01/20/18 18:45 01/20/18 19:00 Temperature Pulse Rate 77 76 Respiratory Rate 16 16 16 Blood Pressure 122/79 124/72 Pulse Oximetry 100 100 01/20/18 19:15 01/20/18 19:30 01/20/18 19:44 Temperature Pulse Rate 84 85 93 H Respiratory Rate 15 13 20 Blood Pressure 132/81 135/86 Pulse Oximetry 99 100 100 01/20/18 19:45 01/20/18 20:00 01/20/18 20:01 Temperature 98.2 F Pulse Rate 98 H 84 87 Respiratory Rate 24 17 16 Blood Pressure 131/77 134/81 Pulse Oximetry 98 100 100 01/20/18 20:15 01/20/18 20:30 01/20/18 20:45 Temperature Pulse Rate 84 89 87 Respiratory Rate 16 18 19 Blood Pressure 132/78 137/85 144/83 H Pulse Oximetry 100 100 98 01/20/18 21:00 01/20/18 21:15 01/20/18 21:30 Temperature Pulse Rate 87 93 H 86 Respiratory Rate 16 24 17 Blood Pressure 143/81 H 128/77 153/75 H Pulse Oximetry 99 97 98 01/20/18 21:45 01/20/18 22:00 01/20/18 22:15 Temperature Pulse Rate 83 80 80 Respiratory Rate 16 16 16 Blood Pressure 140/81 142/85 H 142/84 H Pulse Oximetry 99 99 99 01/20/18 22:31 01/20/18 22:45 01/20/18 23:00 Temperature Pulse Rate 87 84 77 Respiratory Rate 22 18 16 Blood Pressure 142/90 H 152/89 H 141/77 H Pulse Oximetry 99 99 99 01/20/18 23:15 01/20/18 23:30 01/20/18 23:51 Temperature Pulse Rate 77 76 76 Respiratory Rate 16 16 19 Blood Pressure 139/82 140/84 Pulse Oximetry 100 100 100 01/21/18 00:00 01/21/18 00:02 01/21/18 03:20 Temperature 98.6 F Pulse Rate 79 79 97 H Respiratory Rate 17 16 26 H Blood Pressure 133/73 Pulse Oximetry 100 100 01/21/18 03:50 01/21/18 04:00 01/21/18 07:59 Temperature 100.5 F H Pulse Rate 84 82 Respiratory Rate 16 16 16 Blood Pressure 134/77 Pulse Oximetry 100 100 100 01/21/18 08:00 01/21/18 11:45 01/21/18 12:00 Temperature 98.9 F 99.3 F Pulse Rate 81 78 77 Respiratory Rate 16 16 18 Blood Pressure 120/62 111/62 Pulse Oximetry 100 100 100 01/21/18 15:45 Temperature Pulse Rate 74 Respiratory Rate 17 Blood Pressure Pulse Oximetry 100 Intake & Output 01/20/18 01/21/18 01/21/18 18:59 06:59 18:59 Intake Total 1400 / 1400 1367.2 / 1367.2 1450 / 1450 Output Total 1800 / 1800 600 / 600 Balance -400 / -400 767.2 / 767.2 1450 / 1450 Intake: IV 1400 / 1400 1111.2 / 1111.2 1450 / 1450 Versed Inj 50 mg In 50 ml @ 2 50 / 50 50 / 50 MG/HR 2 mls/hr IV.CONT TITRATE PRN Rx#:[id number] Diprivan 1000 mg/100 ml Inj 1, 100 / 100 200 / 200 000 mg In 100 ml @ 5 MCG/KG/MIN 2.994 mls/hr IV.CONT TITRATE PRN Rx#:[id number] NS Inj 1,000 ML @ 50 mls/hr IV. 1000 / 1000 1000 / 1000 CONT .Q20H [facility] Rx#:[id number] Cipro 200 MG/100 ML Inj 200 mg 100 / 100 In 100 ml @ 100 mls/hr IV.SIG Q12H [facility] Rx#:[id number] MVI-12 Inj 10 ML Thiamine Inj 511.2 / 511.2 100 MG Folvite Inj 1 MG In NS Inj 500 ML @ 125 mls/hr IV.SIG Q24H [facility] Rx#:[id number] Zosyn 4.5 GM Premix 4.5 gm In 200 / 200 100 ml @ 200 mls/hr IV.SIG Q6H [facility] Rx#:[id number] Vancomycin Inj 1,000 MG In NS 250 / 250 Inj 250 ML @ 250 mls/hr IV.SIG ONCE ONE Rx#:[id number] fentaNYL 10 mcg/mL Premix Drip 250 / 250 250 / 250 2,500 mcg In 250 ml @ 50 MCG/HR 5 mls/hr IV.SIG TITRATE PRN Rx #:[id number] Oral 0 / 0 Tube Feeding 216 / 216 Tube Irrigant 40 / 40 Output: Urine 1800 / 1800 600 / 600 Other: Date of Last Bowel Movement 01/15/18 01/15/18 01/15/18 <Florian Ritchie L - 01/21/18 17:16> Vital Signs 01/20/18 12:26 01/20/18 16:00 01/20/18 16:15 Temperature 98.4 F Pulse Rate 68 70 68 Respiratory Rate 16 16 17 Blood Pressure 102/59 L 104/59 L Pulse Oximetry 95 99 99 01/20/18 16:56 01/20/18 17:00 01/20/18 17:04 Temperature Pulse Rate 104 H 83 79 Respiratory Rate 29 H 16 19 Blood Pressure 150/86 H 130/78 Pulse Oximetry 95 100 100 01/20/18 17:15 01/20/18 17:30 01/20/18 17:45 Temperature Pulse Rate 80 79 77 Respiratory Rate 16 16 16 Blood Pressure 121/71 114/67 116/70 Pulse Oximetry 100 100 100 01/20/18 18:00 01/20/18 18:15 01/20/18 18:30 Temperature Pulse Rate 77 75 75 Respiratory Rate 16 16 16 Blood Pressure 118/75 113/64 115/72 Pulse Oximetry 100 100 100 01/20/18 18:44 01/20/18 18:45 01/20/18 19:00 Temperature Pulse Rate 77 76 Respiratory Rate 16 16 16 Blood Pressure 122/79 124/72 Pulse Oximetry 100 100 01/20/18 19:15 01/20/18 19:30 01/20/18 19:44 Temperature Pulse Rate 84 85 93 H Respiratory Rate 15 13 20 Blood Pressure 132/81 135/86 Pulse Oximetry 99 100 100 01/20/18 19:45 01/20/18 20:00 11/12/18 20:01 Temperature 98.2 F Pulse Rate 98 H 84 87 Respiratory Rate 24 17 16 Blood Pressure 131/77 134/81 Pulse Oximetry 98 100 100 01/20/18 20:15 01/20/18 20:30 01/20/18 20:45 Temperature Pulse Rate 84 89 87 Respiratory Rate 16 18 19 Blood Pressure 132/78 137/85 144/83 H Pulse Oximetry 100 100 98 01/20/18 21:00 01/20/18 21:15 01/20/18 21:30 Temperature Pulse Rate 87 93 H 86 Respiratory Rate 16 24 17 Blood Pressure 143/81 H 128/77 153/75 H Pulse Oximetry 99 97 98 01/20/18 21:45 01/20/18 22:00 01/20/18 22:15 Temperature Pulse Rate 83 80 80 Respiratory Rate 16 16 16 Blood Pressure 140/81 142/85 H 142/84 H Pulse Oximetry 99 99 99 01/20/18 22:31 01/20/18 22:45 01/20/18 23:00 Temperature Pulse Rate 87 84 77 Respiratory Rate 22 18 16 Blood Pressure 142/90 H 152/89 H 141/77 H Pulse Oximetry 99 99 99 01/20/18 23:15 01/20/18 23:30 01/20/18 23:51 Temperature Pulse Rate 77 76 76 Respiratory Rate 16 16 19 Blood Pressure 139/82 140/84 Pulse Oximetry 100 100 100 01/21/18 00:00 01/21/18 00:02 01/21/18 03:20 Temperature 98.6 F Pulse Rate 79 79 97 H Respiratory Rate 17 16 26 H Blood Pressure 133/73 Pulse Oximetry 100 100 01/21/18 03:50 01/21/18 04:00 01/21/18 07:59 Temperature 100.5 F H Pulse Rate 84 82 Respiratory Rate 16 16 16 Blood Pressure 134/77 Pulse Oximetry 100 100 100 01/21/18 08:00 01/21/18 11:45 Temperature 98.9 F Pulse Rate 81 78 Respiratory Rate 16 16 Blood Pressure 120/62 Pulse Oximetry 100 100 Intake & Output 01/20/18 01/21/18 01/21/18 18:59 06:59 18:59 Intake Total 1400 / 1400 1367.2 / 1367.2 1250 / 1250 Output Total 1800 / 1800 600 / 600 Balance -400 / -400 767.2 / 767.2 1250 / 1250 Intake: IV 1400 / 1400 1111.2 / 1111.2 1250 / 1250 Versed Inj 50 mg In 50 ml @ 2 50 / 50 50 / 50 MG/HR 2 mls/hr IV.CONT TITRATE PRN Rx#:[id number] Diprivan 1000 mg/100 ml Inj 1, 100 / 100 200 / 200 000 mg In 100 ml @ 5 MCG/KG/MIN 2.994 mls/hr IV.CONT TITRATE PRN Rx#:[id number] NS Inj 1,000 ML @ 50 mls/hr IV. 1000 / 1000 1000 / 1000 CONT .Q20H [facility] Rx#:[id number] Cipro 200 MG/100 ML Inj 200 mg 100 / 100 In 100 ml @ 100 mls/hr IV.SIG Q12H [facility] Rx#:[id number] MVI-12 Inj 10 ML Thiamine Inj 511.2 / 511.2 100 MG Folvite Inj 1 MG In NS Inj 500 ML @ 125 mls/hr IV.SIG Q24H [facility] Rx#:[id number] Vancomycin Inj 1,000 MG In NS 250 / 250 Inj 250 ML @ 250 mls/hr IV.SIG ONCE ONE Rx#:[id number] fentaNYL 10 mcg/mL Premix Drip 250 / 250 250 / 250 2,500 mcg In 250 ml @ 50 MCG/HR 5 mls/hr IV.SIG TITRATE PRN Rx #:[id number] Oral 0 / 0 Tube Feeding 216 / 216 Tube Irrigant 40 / 40 Output: Urine 1800 / 1800 600 / 600 Other: Date of Last Bowel Movement 01/15/18 01/15/18 01/15/18 <Irma Zhang - 01/21/18 12:18> Narrative: GENERAL: 52-year-old male currently orotracheally intubated, sweating profusely SKIN: Warm and dry. No petechia or rash HEAD: Atraumatic. Normocephalic. EYES:No scleral icterus. No injection or drainage. ENT: No nasal bleeding or discharge. Mucous membranes pink and moist. NECK: Trachea midline. No JVD. CARDIOVASCULAR: Regular rate and rhythm. S1, S2 no S4. No murmur RESPIRATORY: Coarse rhonchorous breath sounds appreciated bilaterally. No wheezing. GASTROINTESTINAL: Abdomen soft, non-tender, slightly distended. Not palpate lower hepatic border MUSCULOSKELETAL: Extremities without clubbing, cyanosis, or edema. No obvious deformities. NEUROLOGICAL: Not following commands. <Irma Zhang Arpit - 01/21/18 12:18> Assessment and Plan - Assessment (1) Alcohol withdrawal Code(s): F10.239 - Alcohol dependence with withdrawal, unspecified Status: Acute (2) Abdominal pain Code(s): R10.9 - Unspecified abdominal pain Status: Acute (3) Esophageal varices in cirrhosis Code(s): K74.60 - Unspecified cirrhosis of liver; I85.10 - Secondary esophageal varices without bleeding Status: Chronic (4) Hypertension Code(s): I10 - Essential (primary) hypertension Status: Chronic (5) Alcohol abuse Code(s): F10.10 - Alcohol abuse, uncomplicated Status: Chronic (6) Depression with anxiety Code(s): F41.8 - Other specified anxiety disorders Status: Chronic (7) Cough Code(s): R05 - Cough Status: Acute (8) Diabetes Code(s): E11.9 - Type 2 diabetes mellitus without complications Status: Chronic (9) Deep vein thrombosis (DVT) of brachial vein Code(s): I82.629 - Acute embolism and thrombosis of deep veins of unspecified upper extremity Status: Acute (10) Nutrition, metabolism, and development symptoms Code(s): R63.8 - Other symptoms and signs concerning food and fluid intake Status: Acute <Florian Ritchie - 01/21/18 17:16> (1) Alcohol withdrawal Code(s): F10.239 - Alcohol dependence with withdrawal, unspecified Status: Acute Plan: Patient with extensive alcohol abuse history for the past 30 years complicated by cirrhosis and esophageal variceal GI bleed. Currently receiving treatment for alcoholism at [facility] since July of this year. Reports he is taking a medication to help with his alcoholism however he has not been compliant and has been drinking at least 2 beers per day. Presented to the ED with severe abdominal pain, vomiting and nausea. Continue with CIWA protocol Patient with worsening with alcohol withdrawal symptoms and was transferred to critical care on 01/18. Steamer Tender consulted, appreciate recommendations Patient placed on Precedex drip on 01/18 Patient placed n.p.o. c/w IV fluids D5NS 50 mL/hr Continue to monitor vital signs, continue to monitor ammonia and cmp Patient intubated on 01/19; Current PRVC peep 5 FiO2 40% and 2 L Currently on Versed 10 mg/hr and fentanyl 15 mL/hr and propofol 25 mcg/kg/ min drips for sedation/analgesia while intubated Continue vitamin bag daily times [address] brain: No acute abnormalities Ammonia level elevated at 70-> 81->98->72->59->56 Lactulose increased from daily to 3 times daily Rifaximin 550 BID monitor ammonia levels (2) Abdominal pain Code(s): R10.9 - Unspecified abdominal pain Status: Acute Plan: Patient is a 52-year-old male with past medical history of alcoholism, cirrhosis and esophageal variceal GI bleed who presented to the ED with complaint of umbilical abdominal pain, nausea, and vomiting for the past 2 days. Patient reports tooth extraction 2 days prior to admission and malaise ( abdominal pain, vomiting x10 times with questionable blood in vomit which he attributes to tooth extraction however due to patient's history of upper GI bleed due to esophageal varices will consult GI for further evaluation). On admission patient was slightly hypertensive however he was afebrile and no leukocytosis appreciated on CBC. CT abdomen: Showing edema of mesenteric, small metallic object in the transverse colon (which may have been part of patient's dental filling) and cirrhosis with portal hypertension and significant esophageal varices. Zofran for nausea Pain controlled with hydromorphone PRN which patient has had in the past without any adverse reactions Protonix IV twice daily Cipro for prophylaxis octreotide drip 25 mcg/h GI consulted for further recommendations, -Protonix, prophylactic antibiotic and octreotide drip -H&H stable and abdominal ultrasound negative for ascites -EGD procedure 01/16 showed: Esophageal varices grade 2 status post 4 band applied, biopsies taken from gastric antrum. Repeat EGD in 2 months. -vocal cord mass noted on intubation and ENT was consulted for further evaluation. -non-selective beta deena and follow up outpatient in two weeks. - GI has signed off ENT consulted Normal evaluation of vocal cords with laryngoscope neck CT no abnormal findings, no evidence of laryngeal lesion -will assess as needed (3) Esophageal varices in cirrhosis Code(s): K74.60 - Unspecified cirrhosis of liver; I85.10 - Secondary esophageal varices without bleeding Status: Chronic Plan: See plan above for abdominal pain (4) Hypertension Code(s): I10 - Essential (primary) hypertension Status: Chronic Plan: Resume home medications Clonidine PRN Continue to monitor blood pressure. (5) Alcohol abuse Code(s): F10.10 - Alcohol abuse, uncomplicated Status: Chronic Plan: See alcohol withdrawal plan above (6) Depression with anxiety Code(s): F41.8 - Other specified anxiety disorders Status: Chronic Plan: Resume home medications (7) Cough Code(s): R05 - Cough Status: Acute Plan: Patient with history of chronic cough and wheezing. -GI saw abnormal vocal cords for EGD so consulted Pulmonology and ENT -Pulmonology: recommended aerosol treatment and tessalon 200 mg TID and smoking cessation. Recommended follow up pulmonary function studies once acute illness treated. -ENT: CT neck was negative. No mass visualized with laryngoscopy. Can follow up OP for post nasal drip -Sputum culture: MRSA -Started on vancomycin and zosyn -Temperature overnight 100.5. BCX pending -Chest x-ray: Support equipment in good position. Small areas of atelectasis in both lung bases. (8) Diabetes Code(s): E11.9 - Type 2 diabetes mellitus without complications Status: Chronic Plan: Sliding scale insulin low Accu-Cheks Hypoglycemia protocol (9) Deep vein thrombosis (DVT) of brachial vein Code(s): I82.629 - Acute embolism and thrombosis of deep veins of unspecified upper extremity Status: Acute Plan: 1111 venous Doppler study: DVT of right mid brachial vein Anticoagulation therapy contraindicated currently given GI bleed (10) Nutrition, metabolism, and development symptoms Code(s): R63.8 - Other symptoms and signs concerning food and fluid intake Status: Acute Plan: Fluids: IV fluids NS D5 50 mL/HR Electrolytes: Replete as needed Diet: N.p.o. DVT prophylaxis: SCDs; pharmacological prophylaxis contraindicated with GI bleed. <Irma Zhang - 01/21/18 12:03> - Attending Attestation The exam, history, and the medical decision-making described in the above note were completed with the assistance of the resident physician. I reviewed and agree with the findings presented. I attest that I had a [id number] encounter with the patient on the same day, and personally performed and documented my assessment and findings in the medical record. Patient no longer on ciprofloxacin. He is on vanc and zosyn with finding of MRSA in sputum. Spiked low grade fever overnight. Remains sedated and intubated for alcohol withdrawals. Per nurse, he is "having a better day" today in regards to his level of agitation. He remains in the ICU with curriculum coach helping to manage. <Florian Ritchie - 01/21/18 17:16>
[2018-01-21] MEDS: Multivitamin Inj 10 ML, Thiamine Inj 100 MG, Folic Acid Inj 1 MG in Sodium Chlor 0.9% I... IV.SIG SCH (15:45)
--- NOTE | 2018-01-21 19:02 | P.PNPL ---
Subjective Interval history: 52 YO male with GIB, cirrhosis Developed resp distress, agitation Intubated Sedated with Fentanyl, diprivan and Versed CT brain NAD Physical Exam Vital signs: Vital Signs 01/20/18 19:15 01/20/18 19:30 01/20/18 19:44 Temperature Pulse Rate 84 85 93 H Respiratory Rate 15 13 20 Blood Pressure 132/81 135/86 Pulse Oximetry 99 100 100 01/20/18 19:45 01/20/18 20:00 01/20/18 20:01 Temperature 98.2 F Pulse Rate 98 H 84 87 Respiratory Rate 24 17 16 Blood Pressure 131/77 134/81 Pulse Oximetry 98 100 100 01/20/18 20:15 01/20/18 20:30 01/20/18 20:45 Temperature Pulse Rate 84 89 87 Respiratory Rate 16 18 19 Blood Pressure 132/78 137/85 144/83 H Pulse Oximetry 100 100 98 01/20/18 21:00 01/20/18 21:15 01/20/18 21:30 Temperature Pulse Rate 87 93 H 86 Respiratory Rate 16 24 17 Blood Pressure 143/81 H 128/77 153/75 H Pulse Oximetry 99 97 98 01/20/18 21:45 01/20/18 22:00 01/20/18 22:15 Temperature Pulse Rate 83 80 80 Respiratory Rate 16 16 16 Blood Pressure 140/81 142/85 H 142/84 H Pulse Oximetry 99 99 99 01/20/18 22:31 01/20/18 22:45 01/20/18 23:00 Temperature Pulse Rate 87 84 77 Respiratory Rate 22 18 16 Blood Pressure 142/90 H 152/89 H 141/77 H Pulse Oximetry 99 99 99 01/20/18 23:15 01/20/18 23:30 01/20/18 23:51 Temperature Pulse Rate 77 76 76 Respiratory Rate 16 16 19 Blood Pressure 139/82 140/84 Pulse Oximetry 100 100 100 01/21/18 00:00 01/21/18 00:02 01/21/18 03:20 Temperature 98.6 F Pulse Rate 79 79 97 H Respiratory Rate 17 16 26 H Blood Pressure 133/73 Pulse Oximetry 100 100 01/21/18 03:50 01/21/18 04:00 01/21/18 07:59 Temperature 100.5 F H Pulse Rate 84 82 Respiratory Rate 16 16 16 Blood Pressure 134/77 Pulse Oximetry 100 100 100 01/21/18 08:00 01/21/18 11:45 01/21/18 12:00 Temperature 98.9 F 99.3 F Pulse Rate 81 78 77 Respiratory Rate 16 16 18 Blood Pressure 120/62 111/62 Pulse Oximetry 100 100 100 01/21/18 15:45 Temperature Pulse Rate 74 Respiratory Rate 17 Blood Pressure Pulse Oximetry 100 Intake & Output 01/21/18 01/21/18 01/22/18 06:59 18:59 06:59 Intake Total 1367.2 / 1367.2 1550 / 1550 Output Total 600 / 600 Balance 767.2 / 767.2 1550 / 1550 Intake: IV 1111.2 / 1111.2 1550 / 1550 Versed Inj 50 mg In 50 ml @ 2 50 / 50 MG/HR 2 mls/hr IV.CONT TITRATE PRN Rx#:[id number] Diprivan 1000 mg/100 ml Inj 1, 200 / 200 100 / 100 000 mg In 100 ml @ 5 MCG/KG/MIN 2.994 mls/hr IV.CONT TITRATE PRN Rx#:[id number] NS Inj 1,000 ML @ 50 mls/hr IV. 1000 / 1000 CONT .Q20H [facility] Rx#:[id number] Cipro 200 MG/100 ML Inj 200 mg 100 / 100 In 100 ml @ 100 mls/hr IV.SIG Q12H [facility] Rx#:[id number] MVI-12 Inj 10 ML Thiamine Inj 511.2 / 511.2 100 MG Folvite Inj 1 MG In NS Inj 500 ML @ 125 mls/hr IV.SIG Q24H [facility] Rx#:[id number] Zosyn 4.5 GM Premix 4.5 gm In 200 / 200 100 ml @ 200 mls/hr IV.SIG Q6H [facility] Rx#:[id number] Vancomycin Inj 1,000 MG In NS 250 / 250 Inj 250 ML @ 250 mls/hr IV.SIG ONCE ONE Rx#:[id number] fentaNYL 10 mcg/mL Premix Drip 250 / 250 2,500 mcg In 250 ml @ 50 MCG/HR 5 mls/hr IV.SIG TITRATE PRN Rx #:[id number] Tube Feeding 216 / 216 Tube Irrigant 40 / 40 Output: Urine 600 / 600 Other: Date of Last Bowel Movement 01/15/18 01/15/18 GENERAL: WBWN, on Vent SKIN: Warm and dry. HEAD: Normocephalic. EYES: No scleral icterus. No injection or drainage. NECK: Supple, trachea midline. No JVD or lymphadenopathy. CARDIOVASCULAR: Regular rate and rhythm without murmurs, gallops, or rubs. RESPIRATORY: Breath sounds equal bilaterally. No accessory muscle use. GASTROINTESTINAL: Abdomen soft, non-tender, nondistended. MUSCULOSKELETAL: No cyanosis, or edema. BACK: Nontender without obvious deformity. No CVA tenderness. Assessment and Plan - Plan IMPRESSION: 1. Mild shortness of breath and cough, possibly underlying asthma. 2. Hypertension. 3. Diabetes mellitus. 4. Cirrhosis of the liver. 5. VDRF PLAN: Vent support PRVC AC, Fi02 45% Sedation with Fentanyl, Diprivan And Versed Depakote 500 mg daily haldol prn
[2018-01-22] MEDS: Oral Hygiene Kit OROPHARYNG SCH ×4 (00:34→15:33)
[2018-01-22] MEDS: Insulin NovoLOG Aspart Correctional Sugar Inj SQ SCH ×6 (00:34→20:56)
[2018-01-22] MEDS: Midazolam 50 MG/50 ML Inj 50 MG/50 ML BAG IV.CONT PRN ×3 (02:05→18:24)
[2018-01-22] MEDS: Piperacil/Tazo 4.5 GM Premix 4.5 GM/100 ML BAG IV.SIG SCH ×4 (03:18→20:57)
[2018-01-22] MEDS: fentaNYL 10 mcg/mL Premix Drip 2,500 MCG/250 ML BAG IV.SIG PRN ×2 (04:04→22:05)
[2018-01-22] MEDS: Propofol 1000 mg/100 ml Inj 1,000 MG/100 ML BOTTLE IV.CONT PRN ×2 (04:04→16:31)
[2018-01-22] MEDS: Benzonatate 100 MG Capsule PO SCH ×3 (05:55→20:56)
[2018-01-22] MEDS: Artificial Tears Opth Drops 15 ML Bottle EACH EYE SCH ×2 (05:56→15:33)
[2018-01-22] MEDS: Vancomycin Inj 1,500 MG in Sodium Chlor 0.9% Inj 500 ML IV.SIG SCH ×3 (06:00→18:25)
[2018-01-22] MEDS ORDERED: Pharmacy Ordered Lab Info OTHER ONE ×2 (07:45→17:45)
[2018-01-22 08:03] LABS: Baso % (Auto) 0.3 % (0.0-2.0); Eos # (Auto) 0.2 th/mm3 (0.0-0.4); Hemoglobin 10.8 gm/dL (13.0-17.0); Lymph # (Auto) 0.7 th/mm3 (1.0-4.8); Mean Corpuscular HGB Conc 32.8 % (32.0-36.0); Mean Corpuscular Volume 79.2 fL (80.0-100.0); Mean Platelet Volume 9.3 fL (7.0-11.0); Mono # (Auto) 1.8 th/mm3 (0.0-0.9); Mono % (Auto) 22.6 % (0.0-8.0); Neut # (Auto) 5.3 th/mm3 (1.8-7.7); Neut % (Auto) 66.1 % (16.0-70.0); Platelet Count 70 th/mm3 (150-450); Red Blood Count 4.17 mil/mm3 (4.50-5.90)
[2018-01-22 08:36] LABS: Alanine Aminotransferase 13 U/L (12-78); Albumin 2.3 g/dL (3.4-5.0); Alkaline Phosphatase 118 U/L (45-117); Anion Gap 10 meq/L (5-15); Aspartate Aminotransferase 29 U/L (15-37); Blood Urea Nitrogen 10 mg/dL (7-18); Calcium 7.4 mg/dL (8.5-10.1); Carbon Dioxide 22.6 meq/L (21.0-32.0); Chloride 111 meq/L (98-107); Glomerular Filtration Rate Greater Than 89 mL/min (>89); Glucose,Random 101 mg/dL (74-106); Magnesium 1.9 mg/dL (1.5-2.5); Phosphorus 2.1 mg/dL (2.5-4.9); Potassium 3.1 meq/L (3.5-5.1); Sodium 144 meq/L (136-145)
[2018-01-22] MEDS: Lisinopril 20 MG Tablet PO SCH (08:36)
[2018-01-22] MEDS: rifAXIMin 550 MG Tablet PO SCH ×2 (08:36→20:56)
[2018-01-22] MEDS: amLODIPine 5 MG Tablet PO SCH (08:36)
[2018-01-22] MEDS: Divalproex 500 MG DR Tablet PO SCH (08:36)
[2018-01-22] MEDS: Senna/Docusate Sodium 8.6/50 MG Tablet PO SCH ×2 (08:36→20:56)
[2018-01-22] MEDS: Pantoprazole Inj 40 MG Vial IV.PUSH SCH ×2 (08:37→20:57)
[2018-01-22] MEDS: Chlorhexidine 0.12% Oral Kit 15 ML UDC OROPHARYNG SCH ×2 (08:37→20:56)
[2018-01-22 08:46] LABS: Platelet Morphology Normal (Normal)
[2018-01-22] MEDS: Potassium Phosphate 500 MG Soluble Tablet PO PRN (10:48)
[2018-01-22] MEDS: Potassium Chlor 20 mEq Premix 20 MEQ/100 ML PIGGYBACK IV.SIG PRN ×4 (10:49→18:25)
--- NOTE | 2018-01-22 14:11 | P.PNCC ---
Subjective Subjective Remarks/Hospital Course: The patient is a 52-year-old male with a past medical history of ETOH abuse, cirrhosis of liver secondary to alcohol, hypertension, diabetes mellitus, anxiety, depression, prior history of upper gastrointestinal bleed x2 due to esophageal varices. The patient was admitted under the family medicine team on 01/15/2018 for abdominal pain. A CT scan of the abdomen and pelvis showed a cirrhotic liver with evidence of portal hypertension and prominent gastroesophageal varices. No ascites noted. The patient also underwent an ultrasound of the abdomen, which showed no significant ascites. He was seen by GI service and underwent upper endoscopy on 01/16/2018 which showed grade2 esophageal varices, status post banding x4, gastritis and hiatal hernia. The patient also had a CT scan of the chest on 01/16/2018 which showed mild infiltrates in the posterior lower lung hussein suggestive of atelectasis and nonspecific 1.5 cm lymph node in the anterior superior mediastinum. He is being followed by Dr. Maki from pulmonary service. Due to altered mental status and possible alcohol withdrawal he was transferred to ICU and critical care medicine was consulted for critical care management. He received Ativan 6-8 mg total along with Haldol and the patient remained restless and agitated. Most of the history was obtained from reviewing medical records as the patient is a poor historian. ABG was performed this morning on room air, which showed a pH of 7.44, CO2 41, PaO2 69, bicarbonate 27, saturation 91%. Subjective 01/19: Patient with worsening oxygenation status. Essentially unresponsive obtunded. Ammonia level is 98 this morning. Elective intubation. 01/20 Patient is intubated and sedated, afebrile. 01/21 Patient remains sedated with Fentnayl, Diprivan and Versed. T;100.5, CT brain yesterday no acute findings. 01/22: Remains intubated sedated Versed had been held since a.m. Remains unresponsive failed CPAP trial today due to tachypnea. Spontaneously moves lower extremities no spontaneous eye opening. Large amount of ET tube secretions reported. Sputum cx 01/19 MRSA Objective Vital Signs / I&O: Vital Signs 01/21/18 14:00 01/21/18 14:15 01/21/18 14:30 Temperature Pulse Rate 80 81 77 Respiratory Rate 16 16 16 Blood Pressure 112/68 84/56 L 91/54 L Pulse Oximetry 100 100 100 01/21/18 14:45 01/21/18 15:00 01/21/18 15:15 Temperature Pulse Rate 74 74 76 Respiratory Rate 16 16 16 Blood Pressure 91/54 L 93/56 L 93/56 L Pulse Oximetry 100 100 100 01/21/18 15:30 01/21/18 15:45 01/21/18 16:00 Temperature Pulse Rate 77 84 76 Respiratory Rate 16 18 18 Blood Pressure 94/56 L 114/69 100/57 L Pulse Oximetry 100 100 100 01/21/18 16:15 01/21/18 16:30 01/21/18 16:45 Temperature Pulse Rate 78 77 78 Respiratory Rate 16 16 16 Blood Pressure 105/57 L 107/61 116/65 Pulse Oximetry 100 98 99 01/21/18 17:00 01/21/18 17:15 01/21/18 17:30 Temperature Pulse Rate 77 77 78 Respiratory Rate 16 16 16 Blood Pressure 107/62 111/63 103/59 L Pulse Oximetry 98 98 98 01/21/18 17:45 01/21/18 18:00 01/21/18 18:15 Temperature Pulse Rate 76 76 75 Respiratory Rate 16 16 16 Blood Pressure 103/59 L 105/58 L 103/62 Pulse Oximetry 99 99 99 01/21/18 18:30 01/21/18 18:45 01/21/18 19:00 Temperature Pulse Rate 77 77 76 Respiratory Rate 16 16 16 Blood Pressure 104/58 L 103/60 100/57 L Pulse Oximetry 99 99 99 01/21/18 19:15 01/21/18 19:30 01/21/18 19:45 Temperature Pulse Rate 79 78 78 Respiratory Rate 16 16 16 Blood Pressure 100/59 L 100/59 L 101/58 L Pulse Oximetry 99 99 99 01/21/18 20:00 01/21/18 20:15 01/21/18 20:30 Temperature 98.7 F Pulse Rate 77 77 80 Respiratory Rate 16 16 16 Blood Pressure 99/56 L 100/56 L 102/63 Pulse Oximetry 98 98 98 01/21/18 20:45 01/21/18 20:46 01/21/18 21:00 Temperature Pulse Rate 81 80 100 H Respiratory Rate 16 16 15 Blood Pressure 104/65 158/77 H Pulse Oximetry 98 98 94 L 01/21/18 21:16 01/21/18 21:30 01/21/18 21:45 Temperature Pulse Rate 107 H 98 H 96 H Respiratory Rate 20 16 16 Blood Pressure 141/90 H 130/71 121/67 Pulse Oximetry 100 100 93 L 01/21/18 22:00 01/21/18 22:15 01/21/18 22:30 Temperature Pulse Rate 92 H 88 89 Respiratory Rate 16 16 16 Blood Pressure 113/59 L 115/57 L 111/55 L Pulse Oximetry 94 L 95 96 01/21/18 22:45 01/21/18 23:00 01/21/18 23:15 Temperature Pulse Rate 88 86 86 Respiratory Rate 16 16 16 Blood Pressure 111/56 L 106/55 L 106/55 L Pulse Oximetry 97 98 98 01/21/18 23:30 01/21/18 23:45 01/22/18 00:00 Temperature 99.4 F Pulse Rate 85 85 85 Respiratory Rate 16 16 16 Blood Pressure 102/57 L 101/58 L 99/57 L Pulse Oximetry 98 98 99 01/22/18 00:15 01/22/18 00:16 01/22/18 00:30 Temperature Pulse Rate 84 85 84 Respiratory Rate 17 16 16 Blood Pressure 97/53 L 94/51 L Pulse Oximetry 98 99 99 01/22/18 00:45 01/22/18 01:00 01/22/18 01:15 Temperature Pulse Rate 82 83 80 Respiratory Rate 16 16 16 Blood Pressure 97/52 L 95/50 L 95/51 L Pulse Oximetry 99 99 100 01/22/18 01:30 01/22/18 01:45 01/22/18 02:00 Temperature Pulse Rate 80 80 79 Respiratory Rate 16 16 17 Blood Pressure 94/52 L 96/54 L 91/54 L Pulse Oximetry 100 100 100 01/22/18 02:15 01/22/18 02:30 01/22/18 02:45 Temperature Pulse Rate 77 77 78 Respiratory Rate 16 16 16 Blood Pressure 93/53 L 97/56 L 96/57 L Pulse Oximetry 100 100 100 01/22/18 03:00 01/22/18 03:15 01/22/18 03:30 Temperature Pulse Rate 78 76 75 Respiratory Rate 16 16 16 Blood Pressure 100/59 L 97/58 L 96/55 L Pulse Oximetry 100 100 100 01/22/18 03:55 01/22/18 04:00 01/22/18 04:15 Temperature 98.7 F Pulse Rate 97 H 98 H 97 H Respiratory Rate 20 16 15 Blood Pressure 142/69 H 140/71 128/72 Pulse Oximetry 94 L 97 99 01/22/18 04:21 01/22/18 04:30 01/22/18 04:45 Temperature Pulse Rate 105 H 91 H 86 Respiratory Rate 18 16 16 Blood Pressure 120/70 111/60 Pulse Oximetry 100 99 95 01/22/18 05:00 01/22/18 05:15 01/22/18 05:30 Temperature Pulse Rate 83 80 78 Respiratory Rate 16 17 16 Blood Pressure 104/57 L 102/56 L 99/57 L Pulse Oximetry 96 96 97 01/22/18 05:45 01/22/18 06:00 01/22/18 06:15 Temperature Pulse Rate 76 76 75 Respiratory Rate 16 16 16 Blood Pressure 102/59 L 98/57 L 102/57 L Pulse Oximetry 97 97 96 01/22/18 06:30 01/22/18 06:45 01/22/18 07:00 Temperature Pulse Rate 75 75 84 Respiratory Rate 16 16 16 Blood Pressure 105/58 L 107/62 Pulse Oximetry 96 96 01/22/18 08:00 01/22/18 11:00 01/22/18 11:44 Temperature 99.7 F H Pulse Rate 76 70 Respiratory Rate 17 16 16 Blood Pressure 115/66 Pulse Oximetry 98 98 01/22/18 12:00 Temperature 99.1 F Pulse Rate 65 Respiratory Rate 18 Blood Pressure 108/70 Pulse Oximetry 99 Intake & Output 01/21/18 01/22/18 01/22/18 18:59 06:59 18:59 Intake Total 1550 / 1550 1386.2 / 1386.2 715 / 715 Output Total 400 / 400 600 / 600 Balance 1150 / 1150 786.2 / 786.2 715 / 715 Intake: IV 1550 / 1550 1211.2 / 1211.2 715 / 715 Versed Inj 50 mg In 50 ml @ 2 150 / 150 MG/HR 2 mls/hr IV.CONT TITRATE PRN Rx#:[id number] Diprivan 1000 mg/100 ml Inj 1, 100 / 100 100 / 100 000 mg In 100 ml @ 5 MCG/KG/MIN 2.994 mls/hr IV.CONT TITRATE PRN Rx#:[id number] NS Inj 1,000 ML @ 50 mls/hr IV. 1000 / 1000 CONT .Q20H MANUEL Rx#:[id number] MVI-12 Inj 10 ML Thiamine Inj 511.2 / 511.2 100 MG Folvite Inj 1 MG In NS Inj 500 ML @ 125 mls/hr IV.SIG Q24H MANUEL Rx#:[id number] Zosyn 4.5 GM Premix 4.5 gm In 200 / 200 200 / 200 100 / 100 100 ml @ 200 mls/hr IV.SIG Q6H MANUEL Rx#:[id number] KCl 20 mEq Premix Inj 20 meq In 100 / 100 100 ml @ 50 mls/hr IV.SIG Q2H PRN Rx#:[id number] Vancomycin Inj 1,500 MG In NS 515 / 515 Inj 500 ML @ 257.5 mls/hr IV. SIG Q12H [facility] Rx#:[id number] fentaNYL 10 mcg/mL Premix Drip 250 / 250 250 / 250 2,500 mcg In 250 ml @ 50 MCG/HR 5 mls/hr IV.SIG TITRATE PRN Rx #:[id number] Tube Feeding 175 / 175 Output: Urine Amount (Catheter) 400 / 400 600 / 600 400 400 / 400 Straight 600 / 600 Other: Date of Last Bowel Movement 01/15/18 01/22/18 01/22/18 Result Diagrams: 01/22/18 06:55 01/22/18 06:55 Objective Remarks: GENERAL: 52-year-old male currently orotracheally intubated SKIN: Warm and dry. No petechia or rash HEAD: Atraumatic. Normocephalic. EYES: Pupils equal and round about 3 mm bilaterally and reactive. No scleral icterus. No injection or drainage. ENT: No nasal bleeding or discharge. Orotracheally intubated large amount of ET tube secretions NECK: Trachea midline. No JVD. CARDIOVASCULAR: Regular rate and rhythm. S1, S2 no S4. No murmur RESPIRATORY: B/l equa air entry. Few coarse rhonchi GASTROINTESTINAL: Abdomen soft, non-tender, slightly distended. MUSCULOSKELETAL: Extremities without clubbing, cyanosis, or edema. No obvious deformities. NEUROLOGICAL: Intubated and sedated. On sedation lightening spontaneously moves lower extremities no movements noted on the upper extremities. No spontaneous eye opening Assessment and Plan - Assessment and Plan Plan: 1. Altered mental status/toxic metabolic encephalopathy secondary to elevated ammonia and delirium tremens. 2. Acute respiratory failure, MRSA in sputum 3. Cirrhosis of the liver secondary to ETOH abuse, Hepatic encephalopathy 4. 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 5. Hypertension. 6. Diabetes mellitus hemoglobin A1c 6.0. 7. Ongoing abuse/EtOH 8. History of cannabinoids use 9. Hypoalbuminemia 10. Esophageal varices status post banding by GI 11. Elevated BMI Neuro/Psych: Currently on Versed/fentanyl/Diprivan drips for sedation/analgesia while intubated Daily sedation vacation Continue lactulose, check Ammonia level CT brain 01/20: No acute intracranial findings Continue vitamin bag daily times 3 days for EtOH withdrawal. CV: Monitor HR and BP keep MAP>65mmHg Continue amlodipine 5 mg daily and lisinopril 40 mg daily Continue propranolol 20 mg twice daily As needed clonidine 0.1 mg every 6 hours Continue pravastatin 40 mg daily for hyperlipidemia Resp: PRVC 16/550/03/15/39, ventilator bundle Albuterol/ipratropium aerosols every 4 hours with albuterol aerosols every 2 hours as needed dyspnea. Spontaneous breathing trials as juan, mental status will not permit extubation GI: Status post EGD on 01/16/2018 which showed grade 2 esophageal varices, status post banding x4. Abdominal ultrasound on 01/15/2018 showed no evidence of significant ascites. On tube feeds-Glucerna 1.5 with goal rate 50ml/hr Pantoprazole 40 m IV twice daily for GI prophylaxis On lactulose 30 cc 3 times daily and Xifaxan 550 mg twice daily. Ammonia level 56 from 72. Increase lactulose to q4 : Monitor renal function, electrolytes replacement per protocol. Electrolyte replacement per protocol Endo: Sliding scale insulin with Accu-Cheks every 6 hours to maintain euglycemia Hemoglobin A1c was 6.0 Heme: Monitor CBC No indication for transfusion of blood products at this time. ID: Continue Vanco, Zosyn, d/cd Cipro. Monitor for signs of infections ( Fever, WBC) Sputum cx/: MRSA Blood cultures negative to date Access -Utilize peripheral IV. Prophylaxis -GI-pantoprazole - DVT SCD/pharmacological prophylaxis contraindicated with bleeding and esophageal varices on EGD - 01/19 Doppler US RUE: Positive for nonocclusive deep venous thrombosis in the right mid brachial vein. Follow Up on lab Level 3
--- NOTE | 2018-01-22 15:16 | P.PNFP ---
Subjective Interval history: Versed was discontinued this morning. Patient difficult to arouse. No reaction to auditory or tactile stimuli. CIWA scores overnight were 4-5. Currently patient being ended cath. Patient failed CPAP trial this morning. <Irma Zhang C - 01/22/18 15:15> Results - Labs Result diagrams: 01/22/18 06:55 01/22/18 06:55 <Florian Ritchie - 01/22/18 17:22> Abnormal lab results 01/21/18 01/22/18 01/22/18 Range/Units 20:07 00:33 06:55 RBC 4.17 L (4.50-5.90) mil/mm3 Hgb 10.8 L (13.0-17.0) gm/dL Hct 33.0 L (39.0-51.0) % MCV 79.2 L (80.0-100.0) fL MCH 26.0 L (27.0-34.0) pg RDW 18.0 H (11.6-17.2) % Plt Count 70 L (150-450) th/mm3 [place] % (Auto) 22.6 H (0.0-8.0) % Lymph # (Auto) 0.7 L (1.0-4.8) th/mm3 [place] # (Auto) 1.8 H (0.0-0.9) th/mm3 Platelet Estimate Low L (Normal) Potassium (3.5-5.1) meq/L Chloride (98-107) meq/L POC Glucose 115 H 139 H (68-110) mg/dl Calcium (8.5-10.1) mg/dL Prot Corrected Calcium (8.5-10.1) mg/dL Phosphorus (2.5-4.9) mg/dL Total Bilirubin (0.2-1.0) mg/dL Alkaline Phosphatase (45-117) U/L Total Protein (6.4-8.2) g/dL Albumin (3.4-5.0) g/dL 01/22/18 Range/Units 06:55 RBC (4.50-5.90) mil/mm3 Hgb (13.0-17.0) gm/dL Hct (39.0-51.0) % MCV (80.0-100.0) fL MCH (27.0-34.0) pg RDW (11.6-17.2) % Plt Count (150-450) th/mm3 Republic % (Auto) (0.0-8.0) % Lymph # (Auto) (1.0-4.8) th/mm3 Republic # (Auto) (0.0-0.9) th/mm3 Platelet Estimate (Normal) Potassium 3.1 L (3.5-5.1) meq/L Chloride 111 H (98-107) meq/L POC Glucose (68-110) mg/dl Calcium 7.4 L* (8.5-10.1) mg/dL Prot Corrected Calcium 8.0 L (8.5-10.1) mg/dL Phosphorus 2.1 L (2.5-4.9) mg/dL Total Bilirubin 1.2 H (0.2-1.0) mg/dL Alkaline Phosphatase 118 H (45-117) U/L Total Protein 6.0 L (6.4-8.2) g/dL Albumin 2.3 L (3.4-5.0) g/dL Short CBC 01/22/18 Range/Units 06:55 WBC 8.0 (4.0-11.0) th/mm3 Hgb 10.8 L (13.0-17.0) gm/dL Hct 33.0 L (39.0-51.0) % Plt Count 70 L (150-450) th/mm3 BMP 01/22/18 06:55 Sodium 144 Potassium 3.1 L Chloride 111 H Carbon Dioxide 22.6 BUN 10 Creatinine 0.66 Calcium 7.4 L* Liver Function 01/22/18 Range/Units 06:55 Total Bilirubin 1.2 H (0.2-1.0) mg/dL AST 29 (15-37) U/L ALT 13 (12-78) U/L Alkaline Phosphatase 118 H (45-117) U/L Albumin 2.3 L (3.4-5.0) g/dL <Florian Ritchie L - 01/22/18 17:22> Abnormal lab results 01/21/18 01/22/18 01/22/18 Range/Units 20:07 00:33 06:55 RBC 4.17 L (4.50-5.90) mil/mm3 Hgb 10.8 L (13.0-17.0) gm/dL Hct 33.0 L (39.0-51.0) % MCV 79.2 L (80.0-100.0) fL MCH 26.0 L (27.0-34.0) pg RDW 18.0 H (11.6-17.2) % Plt Count 70 L (150-450) th/mm3 Republic % (Auto) 22.6 H (0.0-8.0) % Lymph # (Auto) 0.7 L (1.0-4.8) th/mm3 [place] # (Auto) 1.8 H (0.0-0.9) th/mm3 Platelet Estimate Low L (Normal) Potassium (3.5-5.1) meq/L Chloride (98-107) meq/L POC Glucose 115 H 139 H (68-110) mg/dl Calcium (8.5-10.1) mg/dL Prot Corrected Calcium (8.5-10.1) mg/dL Phosphorus (2.5-4.9) mg/dL Total Bilirubin (0.2-1.0) mg/dL Alkaline Phosphatase (45-117) U/L Total Protein (6.4-8.2) g/dL Albumin (3.4-5.0) g/dL 01/22/18 Range/Units 06:55 RBC (4.50-5.90) mil/mm3 Hgb (13.0-17.0) gm/dL Hct (39.0-51.0) % MCV (80.0-100.0) fL MCH (27.0-34.0) pg RDW (11.6-17.2) % Plt Count (150-450) th/mm3 Republic % (Auto) (0.0-8.0) % Lymph # (Auto) (1.0-4.8) th/mm3 Republic # (Auto) (0.0-0.9) th/mm3 Platelet Estimate (Normal) Potassium 3.1 L (3.5-5.1) meq/L Chloride 111 H (98-107) meq/L POC Glucose (68-110) mg/dl Calcium 7.4 L* (8.5-10.1) mg/dL Prot Corrected Calcium 8.0 L (8.5-10.1) mg/dL Phosphorus 2.1 L (2.5-4.9) mg/dL Total Bilirubin 1.2 H (0.2-1.0) mg/dL Alkaline Phosphatase 118 H (45-117) U/L Total Protein 6.0 L (6.4-8.2) g/dL Albumin 2.3 L (3.4-5.0) g/dL Short CBC 01/22/18 Range/Units 06:55 WBC 8.0 (4.0-11.0) th/mm3 Hgb 10.8 L (13.0-17.0) gm/dL Hct 33.0 L (39.0-51.0) % Plt Count 70 L (150-450) th/mm3 BMP 01/22/18 06:55 Sodium 144 Potassium 3.1 L Chloride 111 H Carbon Dioxide 22.6 BUN 10 Creatinine 0.66 Calcium 7.4 L* Liver Function 01/22/18 Range/Units 06:55 Total Bilirubin 1.2 H (0.2-1.0) mg/dL AST 29 (15-37) U/L ALT 13 (12-78) U/L Alkaline Phosphatase 118 H (45-117) U/L Albumin 2.3 L (3.4-5.0) g/dL <Irma Zhang C - 01/22/18 15:15> Physical Exam Vital signs: Vital Signs 01/21/18 17:30 01/21/18 17:45 01/21/18 18:00 Temperature Pulse Rate 78 76 76 Respiratory Rate 16 16 16 Blood Pressure 103/59 L 103/59 L 105/58 L Pulse Oximetry 98 99 99 01/21/18 18:15 01/21/18 18:30 01/21/18 18:45 Temperature Pulse Rate 75 77 77 Respiratory Rate 16 16 16 Blood Pressure 103/62 104/58 L 103/60 Pulse Oximetry 99 99 99 01/21/18 19:00 01/21/18 19:15 01/21/18 19:30 Temperature Pulse Rate 76 79 78 Respiratory Rate 16 16 16 Blood Pressure 100/57 L 100/59 L 100/59 L Pulse Oximetry 99 99 99 01/21/18 19:45 01/21/18 20:00 01/21/18 20:15 Temperature 98.7 F Pulse Rate 78 77 77 Respiratory Rate 16 16 16 Blood Pressure 101/58 L 99/56 L 100/56 L Pulse Oximetry 99 98 98 01/21/18 20:30 01/21/18 20:45 01/21/18 20:46 Temperature Pulse Rate 80 81 80 Respiratory Rate 16 16 16 Blood Pressure 102/63 104/65 Pulse Oximetry 98 98 98 01/21/18 21:00 01/21/18 21:16 01/21/18 21:30 Temperature Pulse Rate 100 H 107 H 98 H Respiratory Rate 15 20 16 Blood Pressure 158/77 H 141/90 H 130/71 Pulse Oximetry 94 L 100 100 01/21/18 21:45 01/21/18 22:00 01/21/18 22:15 Temperature Pulse Rate 96 H 92 H 88 Respiratory Rate 16 16 16 Blood Pressure 121/67 113/59 L 115/57 L Pulse Oximetry 93 L 94 L 95 01/21/18 22:30 01/21/18 22:45 01/21/18 23:00 Temperature Pulse Rate 89 88 86 Respiratory Rate 16 16 16 Blood Pressure 111/55 L 111/56 L 106/55 L Pulse Oximetry 96 97 98 01/21/18 23:15 01/21/18 23:30 01/21/18 23:45 Temperature 99.4 F Pulse Rate 86 85 85 Respiratory Rate 16 16 16 Blood Pressure 106/55 L 102/57 L 101/58 L Pulse Oximetry 98 98 98 01/22/18 00:00 01/22/18 00:15 01/22/18 00:16 Temperature Pulse Rate 85 84 85 Respiratory Rate 16 17 16 Blood Pressure 99/57 L 97/53 L Pulse Oximetry 99 98 99 01/22/18 00:30 01/22/18 00:45 01/22/18 01:00 Temperature Pulse Rate 84 82 83 Respiratory Rate 16 16 16 Blood Pressure 94/51 L 97/52 L 95/50 L Pulse Oximetry 99 99 99 01/22/18 01:15 01/22/18 01:30 01/22/18 01:45 Temperature Pulse Rate 80 80 80 Respiratory Rate 16 16 16 Blood Pressure 95/51 L 94/52 L 96/54 L Pulse Oximetry 100 100 100 01/22/18 02:00 01/22/18 02:15 01/22/18 02:30 Temperature Pulse Rate 79 77 77 Respiratory Rate 17 16 16 Blood Pressure 91/54 L 93/53 L 97/56 L Pulse Oximetry 100 100 100 01/22/18 02:45 01/22/18 03:00 01/22/18 03:15 Temperature Pulse Rate 78 78 76 Respiratory Rate 16 16 16 Blood Pressure 96/57 L 100/59 L 97/58 L Pulse Oximetry 100 100 100 01/22/18 03:30 01/22/18 03:55 01/22/18 04:00 Temperature 98.7 F Pulse Rate 75 97 H 98 H Respiratory Rate 16 20 16 Blood Pressure 96/55 L 142/69 H 140/71 Pulse Oximetry 100 94 L 97 01/22/18 04:15 01/22/18 04:21 01/22/18 04:30 Temperature Pulse Rate 97 H 105 H 91 H Respiratory Rate 15 18 16 Blood Pressure 128/72 120/70 Pulse Oximetry 99 100 99 01/22/18 04:45 01/22/18 05:00 01/22/18 05:15 Temperature Pulse Rate 86 83 80 Respiratory Rate 16 16 17 Blood Pressure 111/60 104/57 L 102/56 L Pulse Oximetry 95 96 96 01/22/18 05:30 01/22/18 05:45 01/22/18 06:00 Temperature Pulse Rate 78 76 76 Respiratory Rate 16 16 16 Blood Pressure 99/57 L 102/59 L 98/57 L Pulse Oximetry 97 97 97 01/22/18 06:15 01/22/18 06:30 01/22/18 06:45 Temperature Pulse Rate 75 75 75 Respiratory Rate 16 16 16 Blood Pressure 102/57 L 105/58 L 107/62 Pulse Oximetry 96 96 96 01/22/18 07:00 01/22/18 08:00 01/22/18 11:00 Temperature 99.7 F H Pulse Rate 84 76 70 Respiratory Rate 16 17 16 Blood Pressure 115/66 Pulse Oximetry 98 01/22/18 11:44 01/22/18 12:00 01/22/18 15:00 Temperature 99.1 F Pulse Rate 65 78 Respiratory Rate 16 18 18 Blood Pressure 108/70 Pulse Oximetry 98 99 01/22/18 16:00 Temperature Pulse Rate Respiratory Rate 17 Blood Pressure Pulse Oximetry 99 Intake & Output 01/21/18 01/22/18 01/22/18 18:59 06:59 18:59 Intake Total 1550 / 1550 1386.2 / 1386.2 915 / 915 Output Total 400 / 400 600 / 600 Balance 1150 / 1150 786.2 / 786.2 5 Intake: IV 1550 / 1550 1211.2 / 1211.2 / 5 Versed Inj 50 mg In 50 ml @ 2 150 / 150 MG/HR 2 mls/hr IV.CONT TITRATE PRN Rx#:[id number] Diprivan 1000 mg/100 ml Inj 1, 100 / 100 100 / 100 100 / 100 000 mg In 100 ml @ 5 MCG/KG/MIN 2.994 mls/hr IV.CONT TITRATE PRN Rx#:[id number] NS Inj 1,000 ML @ 50 mls/hr IV. 1000 / 1000 CONT .Q20H [facility] Rx#:[id number] MVI-12 Inj 10 ML Thiamine Inj 511.2 / 511.2 100 MG Folvite Inj 1 MG In NS Inj 500 ML @ 125 mls/hr IV.SIG Q24H [facility] Rx#:[id number] Zosyn 4.5 GM Premix 4.5 gm In 200 / 200 200 / 200 100 / 100 100 ml @ 200 mls/hr IV.SIG Q6H [facility] Rx#:[id number] KCl 20 mEq Premix Inj 20 meq In 200 / 200 100 ml @ 50 mls/hr IV.SIG Q2H [facility]N Rx#:[id number] Vancomycin Inj 1,500 MG In NS 515 / 515 Inj 500 ML @ 257.5 mls/hr IV. SIG Q12H [facility] Rx#:[id number] fentaNYL 10 mcg/mL Premix Drip 250 / 250 250 / 250 2,500 mcg In 250 ml @ 50 MCG/HR 5 mls/hr IV.SIG TITRATE PRN Rx #:[id number] Tube Feeding 175 / 175 Output: Urine Amount (Catheter) 400 / 400 600 / 600 400 400 / 400 Straight 600 / 600 Other: Date of Last Bowel Movement 01/15/18 01/22/18 01/22/18 <Florian Ritchie - 01/22/18 17:22> Vital Signs 01/21/18 15:15 01/21/18 15:30 01/21/18 15:45 Temperature Pulse Rate 76 77 84 Respiratory Rate 16 16 18 Blood Pressure 93/56 L 94/56 L 114/69 Pulse Oximetry 100 100 100 01/21/18 16:00 01/21/18 16:15 01/21/18 16:30 Temperature Pulse Rate 76 78 77 Respiratory Rate 18 16 16 Blood Pressure 100/57 L 105/57 L 107/61 Pulse Oximetry 100 100 98 01/21/18 16:45 01/21/18 17:00 01/21/18 17:15 Temperature Pulse Rate 78 77 77 Respiratory Rate 16 16 16 Blood Pressure 116/65 107/62 111/63 Pulse Oximetry 99 98 98 01/21/18 17:30 01/21/18 17:45 01/21/18 18:00 Temperature Pulse Rate 78 76 76 Respiratory Rate 16 16 16 Blood Pressure 103/59 L 103/59 L 105/58 L Pulse Oximetry 98 99 99 01/21/18 18:15 01/21/18 18:30 01/21/18 18:45 Temperature Pulse Rate 75 77 77 Respiratory Rate 16 16 16 Blood Pressure 103/62 104/58 L 103/60 Pulse Oximetry 99 99 99 01/21/18 19:00 01/21/18 19:15 01/21/18 19:30 Temperature Pulse Rate 76 79 78 Respiratory Rate 16 16 16 Blood Pressure 100/57 L 100/59 L 100/59 L Pulse Oximetry 99 99 99 01/21/18 19:45 01/21/18 20:00 01/21/18 20:15 Temperature 98.7 F Pulse Rate 78 77 77 Respiratory Rate 16 16 16 Blood Pressure 101/58 L 99/56 L 100/56 L Pulse Oximetry 99 98 98 01/21/18 20:30 01/21/18 20:45 01/21/18 20:46 Temperature Pulse Rate 80 81 80 Respiratory Rate 16 16 16 Blood Pressure 102/63 104/65 Pulse Oximetry 98 98 98 01/21/18 21:00 01/21/18 21:16 01/21/18 21:30 Temperature Pulse Rate 100 H 107 H 98 H Respiratory Rate 15 20 16 Blood Pressure 158/77 H 141/90 H 130/71 Pulse Oximetry 94 L 100 100 01/21/18 21:45 01/21/18 22:00 01/21/18 22:15 Temperature Pulse Rate 96 H 92 H 88 Respiratory Rate 16 16 16 Blood Pressure 121/67 113/59 L 115/57 L Pulse Oximetry 93 L 94 L 95 01/21/18 22:30 01/21/18 22:45 11/13/18 23:00 Temperature Pulse Rate 89 88 86 Respiratory Rate 16 16 16 Blood Pressure 111/55 L 111/56 L 106/55 L Pulse Oximetry 96 97 98 01/21/18 23:15 01/21/18 23:30 01/21/18 23:45 Temperature 99.4 F Pulse Rate 86 85 85 Respiratory Rate 16 16 16 Blood Pressure 106/55 L 102/57 L 101/58 L Pulse Oximetry 98 98 98 01/22/18 00:00 01/22/18 00:15 01/22/18 00:16 Temperature Pulse Rate 85 84 85 Respiratory Rate 16 17 16 Blood Pressure 99/57 L 97/53 L Pulse Oximetry 99 98 99 01/22/18 00:30 01/22/18 00:45 01/22/18 01:00 Temperature Pulse Rate 84 82 83 Respiratory Rate 16 16 16 Blood Pressure 94/51 L 97/52 L 95/50 L Pulse Oximetry 99 99 99 01/22/18 01:15 01/22/18 01:30 01/22/18 01:45 Temperature Pulse Rate 80 80 80 Respiratory Rate 16 16 16 Blood Pressure 95/51 L 94/52 L 96/54 L Pulse Oximetry 100 100 100 01/22/18 02:00 01/22/18 02:15 01/22/18 02:30 Temperature Pulse Rate 79 77 77 Respiratory Rate 17 16 16 Blood Pressure 91/54 L 93/53 L 97/56 L Pulse Oximetry 100 100 100 01/22/18 02:45 01/22/18 03:00 01/22/18 03:15 Temperature Pulse Rate 78 78 76 Respiratory Rate 16 16 16 Blood Pressure 96/57 L 100/59 L 97/58 L Pulse Oximetry 100 100 100 01/22/18 03:30 01/22/18 03:55 01/22/18 04:00 Temperature 98.7 F Pulse Rate 75 97 H 98 H Respiratory Rate 16 20 16 Blood Pressure 96/55 L 142/69 H 140/71 Pulse Oximetry 100 94 L 97 01/22/18 04:15 01/22/18 04:21 01/22/18 04:30 Temperature Pulse Rate 97 H 105 H 91 H Respiratory Rate 15 18 16 Blood Pressure 128/72 120/70 Pulse Oximetry 99 100 99 01/22/18 04:45 01/22/18 05:00 01/22/18 05:15 Temperature Pulse Rate 86 83 80 Respiratory Rate 16 16 17 Blood Pressure 111/60 104/57 L 102/56 L Pulse Oximetry 95 96 96 01/22/18 05:30 01/22/18 05:45 01/22/18 06:00 Temperature Pulse Rate 78 76 76 Respiratory Rate 16 16 16 Blood Pressure 99/57 L 102/59 L 98/57 L Pulse Oximetry 97 97 97 01/22/18 06:15 01/22/18 06:30 01/22/18 06:45 Temperature Pulse Rate 75 75 75 Respiratory Rate 16 16 16 Blood Pressure 102/57 L 105/58 L 107/62 Pulse Oximetry 96 96 96 01/22/18 07:00 01/22/18 08:00 01/22/18 11:00 Temperature 99.7 F H Pulse Rate 84 76 70 Respiratory Rate 16 17 16 Blood Pressure 115/66 Pulse Oximetry 98 01/22/18 11:44 01/22/18 12:00 Temperature 99.1 F Pulse Rate 65 Respiratory Rate 16 18 Blood Pressure 108/70 Pulse Oximetry 98 99 Intake & Output 01/21/18 01/22/18 01/22/18 18:59 06:59 18:59 Intake Total 1550 / 1550 1386.2 / 1386.2 715 / 715 Output Total 400 / 400 600 / 600 Balance 1150 / 1150 786.2 / 786.2 715 / 715 Intake: IV 1550 / 1550 1211.2 / 1211.2 715 / 715 Versed Inj 50 mg In 50 ml @ 2 150 / 150 MG/HR 2 mls/hr IV.CONT TITRATE PRN Rx#:[id number] Diprivan 1000 mg/100 ml Inj 1, 100 / 100 100 / 100 000 mg In 100 ml @ 5 MCG/KG/MIN 2.994 mls/hr IV.CONT TITRATE PRN Rx#:[id number] NS Inj 1,000 ML @ 50 mls/hr IV. 1000 / 1000 CONT .Q20H [facility] Rx#:[id number] MVI-12 Inj 10 ML Thiamine Inj 511.2 / 511.2 100 MG Folvite Inj 1 MG In NS Inj 500 ML @ 125 mls/hr IV.SIG Q24H [facility] Rx#:[id number] Zosyn 4.5 GM Premix 4.5 gm In 200 / 200 200 / 200 100 / 100 100 ml @ 200 mls/hr IV.SIG Q6H [facility] Rx#:[id number] KCl 20 mEq Premix Inj 20 meq In 100 / 100 100 ml @ 50 mls/hr IV.SIG Q2H PRN Rx#:[id number] Vancomycin Inj 1,500 MG In NS 515 / 515 Inj 500 ML @ 257.5 mls/hr IV. SIG Q12H [facility] Rx#:[id number] fentaNYL 10 mcg/mL Premix Drip 250 / 250 250 / 250 2,500 mcg In 250 ml @ 50 MCG/HR 5 mls/hr IV.SIG TITRATE PRN Rx #:[id number] Tube Feeding 175 / 175 Output: Urine Amount (Catheter) 400 / 400 600 / 600 400 400 / 400 Straight 600 / 600 Other: Date of Last Bowel Movement 01/15/18 01/22/18 01/22/18 <Irma Zhang 01/22/18 15:15> Narrative: GENERAL: 52-year-old male currently orotracheally intubated SKIN: Warm and dry. No petechia or rash HEAD: Atraumatic. Normocephalic. EYES: Pupils equal and round about 3 mm bilaterally and reactive. No scleral icterus. No injection or drainage. ENT: No nasal bleeding or discharge. Orotracheally intubated large amount of ET tube secretions NECK: Trachea midline. No JVD. CARDIOVASCULAR: Regular rate and rhythm. S1, S2 no S4. No murmur RESPIRATORY: B/l equa air entry. Few coarse rhonchi GASTROINTESTINAL: Abdomen soft, non-tender, slightly distended. MUSCULOSKELETAL: Extremities without clubbing, cyanosis, or edema. No obvious deformities. NEUROLOGICAL: Intubated and sedated. On sedation lightening spontaneously moves lower extremities no movements noted on the upper extremities. No spontaneous eye opening <Irma Zhang - 01/22/18 15:15> - Urinary Catheter Management 400 Cath placed during this visit: no <Florian iRtchie 01/22/18 17:22> no <Irma Zhang 01/22/18 15:15> Straight Cath placed during this visit: no <Florian Ritchie 01/22/18 17:22> no <Irma Zhang 01/22/18 15:15> Assessment and Plan - Assessment (1) Alcohol withdrawal Code(s): F10.239 - Alcohol dependence with withdrawal, unspecified Status: Acute (2) Abdominal pain Code(s): R10.9 - Unspecified abdominal pain Status: Acute (3) Esophageal varices in cirrhosis Code(s): K74.60 - Unspecified cirrhosis of liver; I85.10 - Secondary esophageal varices without bleeding Status: Chronic (4) Hypertension Code(s): I10 - Essential (primary) hypertension Status: Chronic (5) Alcohol abuse Code(s): F10.10 - Alcohol abuse, uncomplicated Status: Chronic (6) Depression with anxiety Code(s): F41.8 - Other specified anxiety disorders Status: Chronic (7) Cough Code(s): R05 - Cough Status: Acute (8) Diabetes Code(s): E11.9 - Type 2 diabetes mellitus without complications Status: Chronic (9) Deep vein thrombosis (DVT) of brachial vein Code(s): I82.629 - Acute embolism and thrombosis of deep veins of unspecified upper extremity Status: Acute (10) Nutrition, metabolism, and development symptoms Code(s): R63.8 - Other symptoms and signs concerning food and fluid intake Status: Acute <Florian Ritchie L - 01/22/18 17:22> (1) Alcohol withdrawal Code(s): F10.239 - Alcohol dependence with withdrawal, unspecified Status: Acute Plan: Patient with extensive alcohol abuse history for the past 30 years complicated by cirrhosis and esophageal variceal GI bleed. Currently receiving treatment for alcoholism at [facility] since July of this year. Reports he is taking a medication to help with his alcoholism however he has not been compliant and has been drinking at least 2 beers per day. Presented to the ED with severe abdominal pain, vomiting and nausea. Continue with CIWA protocol Patient with worsening with alcohol withdrawal symptoms and was transferred to critical care on 01/18. [employer] consulted, appreciate recommendations Patient placed on Precedex drip on 01/18 Patient placed n.p.o. c/w IV fluids D5NS 50 mL/hr Continue to monitor vital signs, continue to monitor ammonia and cmp Patient intubated on 01/19; Current PRVC peep 5 FiO2 40%; failed CPAP trial Currently on fentanyl 15 mL/hr and propofol 25 mcg/kg/min drips for sedation/ analgesia while intubated Continue vitamin bag daily times [address] brain: No acute abnormalities Ammonia level elevated at 70-> 81->98->72->59->56 Lactulose increased from daily to 4 times daily Rifaximin 550 BID monitor ammonia levels (2) Abdominal pain Code(s): R10.9 - Unspecified abdominal pain Status: Acute Plan: Patient is a 52-year-old male with past medical history of alcoholism, cirrhosis and esophageal variceal GI bleed who presented to the ED with complaint of umbilical abdominal pain, nausea, and vomiting for the past 2 days. Patient reports tooth extraction 2 days prior to admission and malaise ( abdominal pain, vomiting x10 times with questionable blood in vomit which he attributes to tooth extraction however due to patient's history of upper GI bleed due to esophageal varices will consult GI for further evaluation). On admission patient was slightly hypertensive however he was afebrile and no leukocytosis appreciated on CBC. CT abdomen: Showing edema of mesenteric, small metallic object in the transverse colon (which may have been part of patient's dental filling) and cirrhosis with portal hypertension and significant esophageal varices. Zofran for nausea Pain controlled with hydromorphone PRN which patient has had in the past without any adverse reactions Protonix IV twice daily Cipro for prophylaxis; discontinued 01/22 octreotide drip 25 mcg/h GI consulted for further recommendations, -Protonix, prophylactic antibiotic and octreotide drip -H&H stable and abdominal ultrasound negative for ascites -EGD procedure 01/16 showed: Esophageal varices grade 2 status post 4 band applied, biopsies taken from gastric antrum. Repeat EGD in 2 months. -vocal cord mass noted on intubation and ENT was consulted for further evaluation. -non-selective beta deena and follow up outpatient in two weeks. - GI has signed off ENT consulted Normal evaluation of vocal cords with laryngoscope neck CT no abnormal findings, no evidence of laryngeal lesion -will assess as needed (3) Esophageal varices in cirrhosis Code(s): K74.60 - Unspecified cirrhosis of liver; I85.10 - Secondary esophageal varices without bleeding Status: Chronic Plan: See plan above for abdominal pain (4) Hypertension Code(s): I10 - Essential (primary) hypertension Status: Chronic Plan: Resume home medications Clonidine PRN Continue to monitor blood pressure. (5) Alcohol abuse Code(s): F10.10 - Alcohol abuse, uncomplicated Status: Chronic Plan: See alcohol withdrawal plan above (6) Depression with anxiety Code(s): F41.8 - Other specified anxiety disorders Status: Chronic Plan: Resume home medications (7) Cough Code(s): R05 - Cough Status: Acute Plan: Patient with history of chronic cough and wheezing. -GI saw abnormal vocal cords for EGD so consulted Pulmonology and ENT -Pulmonology: recommended aerosol treatment and tessalon 200 mg TID and smoking cessation. Recommended follow up pulmonary function studies once acute illness treated. -ENT: CT neck was negative. No mass visualized with laryngoscopy. Can follow up OP for post nasal drip -Sputum culture: MRSA -Started on vancomycin and zosyn -Temperature overnight 100.5. BCX pending -Chest x-ray: Support equipment in good position. Small areas of atelectasis in both lung bases. (8) Diabetes Code(s): E11.9 - Type 2 diabetes mellitus without complications Status: Chronic Plan: Sliding scale insulin low Accu-Cheks Hypoglycemia protocol (9) Deep vein thrombosis (DVT) of brachial vein Code(s): I82.629 - Acute embolism and thrombosis of deep veins of unspecified upper extremity Status: Acute Plan: 1111 venous Doppler study: DVT of right mid brachial vein Anticoagulation therapy contraindicated currently given GI bleed (10) Nutrition, metabolism, and development symptoms Code(s): R63.8 - Other symptoms and signs concerning food and fluid intake Status: Acute Plan: Fluids: IV fluids NS D5 50 mL/HR Electrolytes: Replete as needed Diet: N.p.o. DVT prophylaxis: SCDs; pharmacological prophylaxis contraindicated with GI bleed. <Irma Zhang - 01/22/18 15:08> - Attending Attestation The exam, history, and the medical decision-making described in the above note were completed with the assistance of the resident physician. I reviewed and agree with the findings presented. I attest that I had a [id number] encounter with the patient on the same day, and personally performed and documented my assessment and findings in the medical record. Patient seen with Dr. Zhang this morning. Sedation is being weaned. Much less agitation, however , not much responsiveness by our exam today. PERRLA, and done blink eyes. Not moving his limbs spontaneously. His CT head was negative. CPAP trial for two hours yesterday but ultimately failed. May need to change endotracheal tube due to excessive cuff leak. Receiving tube feeds via OG tube. CIWA scores trended down. <Florian Ritchie - 01/22/18 17:22>
[2018-01-22] MEDS: Enoxaparin Inj 40 MG/0.4 ML Syringe SQ SCH (15:33)
--- NOTE | 2018-01-22 19:15 | P.PNPL ---
Subjective Interval history: 52 YO male with GIB, cirrhosis Developed resp distress, agitation Intubated Sedated with Fentanyl, diprivan and Versed Did't tolerate CPAP Physical Exam Vital signs: Vital Signs 01/21/18 19:15 01/21/18 19:30 01/21/18 19:45 Temperature Pulse Rate 79 78 78 Respiratory Rate 16 16 16 Blood Pressure 100/59 L 100/59 L 101/58 L Pulse Oximetry 99 99 99 01/21/18 20:00 01/21/18 20:15 01/21/18 20:30 Temperature 98.7 F Pulse Rate 77 77 80 Respiratory Rate 16 16 16 Blood Pressure 99/56 L 100/56 L 102/63 Pulse Oximetry 98 98 98 01/21/18 20:45 01/21/18 20:46 01/21/18 21:00 Temperature Pulse Rate 81 80 100 H Respiratory Rate 16 16 15 Blood Pressure 104/65 158/77 H Pulse Oximetry 98 98 94 L 01/21/18 21:16 01/21/18 21:30 01/21/18 21:45 Temperature Pulse Rate 107 H 98 H 96 H Respiratory Rate 20 16 16 Blood Pressure 141/90 H 130/71 121/67 Pulse Oximetry 100 100 93 L 01/21/18 22:00 01/21/18 22:15 01/21/18 22:30 Temperature Pulse Rate 92 H 88 89 Respiratory Rate 16 16 16 Blood Pressure 113/59 L 115/57 L 111/55 L Pulse Oximetry 94 L 95 96 01/21/18 22:45 01/21/18 23:00 01/21/18 23:15 Temperature Pulse Rate 88 86 86 Respiratory Rate 16 16 16 Blood Pressure 111/56 L 106/55 L 106/55 L Pulse Oximetry 97 98 98 01/21/18 23:30 01/21/18 23:45 01/22/18 00:00 Temperature 99.4 F Pulse Rate 85 85 85 Respiratory Rate 16 16 16 Blood Pressure 102/57 L 101/58 L 99/57 L Pulse Oximetry 98 98 99 01/22/18 00:15 01/22/18 00:16 01/22/18 00:30 Temperature Pulse Rate 84 85 84 Respiratory Rate 17 16 16 Blood Pressure 97/53 L 94/51 L Pulse Oximetry 98 99 99 01/22/18 00:45 01/22/18 01:00 01/22/18 01:15 Temperature Pulse Rate 82 83 80 Respiratory Rate 16 16 16 Blood Pressure 97/52 L 95/50 L 95/51 L Pulse Oximetry 99 99 100 01/22/18 01:30 01/22/18 01:45 01/22/18 02:00 Temperature Pulse Rate 80 80 79 Respiratory Rate 16 16 17 Blood Pressure 94/52 L 96/54 L 91/54 L Pulse Oximetry 100 100 100 01/22/18 02:15 01/22/18 02:30 01/22/18 02:45 Temperature Pulse Rate 77 77 78 Respiratory Rate 16 16 16 Blood Pressure 93/53 L 97/56 L 96/57 L Pulse Oximetry 100 100 100 01/22/18 03:00 01/22/18 03:15 01/22/18 03:30 Temperature Pulse Rate 78 76 75 Respiratory Rate 16 16 16 Blood Pressure 100/59 L 97/58 L 96/55 L Pulse Oximetry 100 100 100 01/22/18 03:55 01/22/18 04:00 01/22/18 04:15 Temperature 98.7 F Pulse Rate 97 H 98 H 97 H Respiratory Rate 20 16 15 Blood Pressure 142/69 H 140/71 128/72 Pulse Oximetry 94 L 97 99 01/22/18 04:21 01/22/18 04:30 01/22/18 04:45 Temperature Pulse Rate 105 H 91 H 86 Respiratory Rate 18 16 16 Blood Pressure 120/70 111/60 Pulse Oximetry 100 99 95 01/22/18 05:00 01/22/18 05:15 01/22/18 05:30 Temperature Pulse Rate 83 80 78 Respiratory Rate 16 17 16 Blood Pressure 104/57 L 102/56 L 99/57 L Pulse Oximetry 96 96 97 01/22/18 05:45 01/22/18 06:00 01/22/18 06:15 Temperature Pulse Rate 76 76 75 Respiratory Rate 16 16 16 Blood Pressure 102/59 L 98/57 L 102/57 L Pulse Oximetry 97 97 96 01/22/18 06:30 01/22/18 06:45 01/22/18 07:00 Temperature Pulse Rate 75 75 84 Respiratory Rate 16 16 16 Blood Pressure 105/58 L 107/62 Pulse Oximetry 96 96 01/22/18 08:00 01/22/18 11:00 01/22/18 11:44 Temperature 99.7 F H Pulse Rate 76 70 Respiratory Rate 17 16 16 Blood Pressure 115/66 Pulse Oximetry 98 98 01/22/18 12:00 01/22/18 15:00 01/22/18 16:00 Temperature 99.1 F 100.9 F H Pulse Rate 65 78 77 Respiratory Rate 18 18 16 Blood Pressure 108/70 99/56 L Pulse Oximetry 99 97 Intake & Output 01/22/18 01/22/18 01/23/18 06:59 18:59 06:59 Intake Total 1386.2 / 1386.2 1572 / 1572 Output Total 600 / 600 800 / 800 Balance 786.2 / 786.2 772 / 772 Intake: IV 1211.2 / 1211.2 1165 / 1165 Versed Inj 50 mg In 50 ml @ 2 150 / 150 50 / 50 MG/HR 2 mls/hr IV.CONT TITRATE PRN Rx#:[id number] Diprivan 1000 mg/100 ml Inj 1, 100 / 100 100 / 100 000 mg In 100 ml @ 5 MCG/KG/MIN 2.994 mls/hr IV.CONT TITRATE PRN Rx#:[id number] MVI-12 Inj 10 ML Thiamine Inj 511.2 / 511.2 100 MG Folvite Inj 1 MG In NS Inj 500 ML @ 125 mls/hr IV.SIG Q24H [facility] Rx#:[id number] Zosyn 4.5 GM Premix 4.5 gm In 200 / 200 200 / 200 100 ml @ 200 mls/hr IV.SIG Q6H [facility] Rx#:[id number] KCl 20 mEq Premix Inj 20 meq In 300 / 300 100 ml @ 50 mls/hr IV.SIG Q2H [facility] Rx#:[id number] Vancomycin Inj 1,500 MG In NS 515 / 515 Inj 500 ML @ 257.5 mls/hr IV. SIG Q12H [facility] Rx#:[id number] fentaNYL 10 mcg/mL Premix Drip 250 / 250 2,500 mcg In 250 ml @ 50 MCG/HR 5 mls/hr IV.SIG TITRATE PRN Rx #:[id number] Tube Feeding 175 / 175 407 / 407 Output: Urine Amount (Catheter) 600 / 600 800 / 800 Straight 600 / 600 800 / 800 Other: Date of Last Bowel Movement 11/14/18 11/14/18 # Incontinent Bowel Movements 1 GENERAL: Elderly male, on vent sedated SKIN: Warm and dry. HEAD: Normocephalic. EYES: No scleral icterus. No injection or drainage. NECK: Supple, trachea midline. No JVD or lymphadenopathy. CARDIOVASCULAR: Regular rate and rhythm without murmurs, gallops, or rubs. RESPIRATORY: Breath sounds equal bilaterally. No accessory muscle use. GASTROINTESTINAL: Abdomen soft, non-tender, nondistended. MUSCULOSKELETAL: No cyanosis, or edema. BACK: Nontender without obvious deformity. No CVA tenderness. - Urinary Catheter Management Straight Cath placed during this visit: no 400 Cath placed during this visit: no Assessment and Plan - Plan IMPRESSION: 1. Mild shortness of breath and cough, possibly underlying asthma. 2. Hypertension. 3. Diabetes mellitus. 4. Cirrhosis of the liver. 5. VDRF PLAN: Vent support PRVC AC, Fi02 40 % Sedation with Fentanyl, Diprivan And Versed Depakote 500 mg daily haldol prn CPAP trial in AM.
[2018-01-23] MEDS: Artificial Tears Opth Drops 15 ML Bottle EACH EYE SCH ×4 (00:14→23:48)
[2018-01-23] MEDS: Oral Hygiene Kit OROPHARYNG SCH ×5 (00:15→23:59)
[2018-01-23] MEDS: Insulin NovoLOG Aspart Correctional Sugar Inj SQ SCH ×7 (00:16→23:59)
[2018-01-23] MEDS: Piperacil/Tazo 4.5 GM Premix 4.5 GM/100 ML BAG IV.SIG SCH ×4 (03:13→20:47)
[2018-01-23] MEDS: Benzonatate 100 MG Capsule PO SCH ×3 (03:13→20:46)
[2018-01-23] MEDS: Propofol 1000 mg/100 ml Inj 1,000 MG/100 ML BOTTLE IV.CONT PRN ×2 (03:21→14:13)
[2018-01-23] MEDS ORDERED: Vancomycin Inj 1,000 MG in Sodium Chlor 0.9% Inj 250 ML IV.SIG SCH (04:00)
--- NOTE | 2018-01-23 04:59 | XR ---
EXAM DATE: 01/23/2018 4:10 AM EST AGE/SEX: 52 years / Male INDICATIONS: Shortness of breath, possible pulmonary disease. CLINICAL DATA: This is the patient's subsequent encounter. Patient reports that signs and symptoms h ave been present for 4 - 6 days and indicates a pain score of Nonresponsive. MEDICAL/SURGICAL HISTORY: Diabetes. Hypertension. esophageal varices. . Abdominal laparotomy . COMPARISON: [facility] [place], CHEST 1V SINGLE AP, 01/21/2018. . FINDINGS: A single AP semierect view the chest was obtained and again demonstrates the endotracheal tube is wit h the tip 2 cm above the lorenzo. The nasogastric tube remains in place. The study is mid inspiratory with no confluent infiltrates or effusions identified. The heart size is at the upper limits of bryan l. CONCLUSION: Mid inspiratory study with crowding of the lung vasculature. Electronically signed by: Florian Ayala MD 01/23/2018 4:58 AM EST
[2018-01-23 05:21] LABS: Baso # (Auto) 0.1 th/mm3 (0.0-0.2); Baso % (Auto) 0.7 % (0.0-2.0); Eos # (Auto) 0.2 th/mm3 (0.0-0.4); Eos % (Auto) 3.3 % (0.0-4.0); Hematocrit 37.1 % (39.0-51.0); Hemoglobin 11.8 gm/dL (13.0-17.0); Lymph % (Auto) 13.2 % (9.0-44.0); Mean Corpuscular HGB Conc 31.7 % (32.0-36.0); Mean Corpuscular Hemoglobin 25.3 pg (27.0-34.0); Mean Corpuscular Volume 79.8 fL (80.0-100.0); Mean Platelet Volume 8.4 fL (7.0-11.0); Mono # (Auto) 1.6 th/mm3 (0.0-0.9); Mono % (Auto) 21.3 % (0.0-8.0); Neut # (Auto) 4.6 th/mm3 (1.8-7.7); Neut % (Auto) 61.5 % (16.0-70.0); Platelet Count 93 th/mm3 (150-450); Red Blood Count 4.64 mil/mm3 (4.50-5.90); Red Cell Distribution Width 18.2 % (11.6-17.2); White Blood Count 7.5 th/mm3 (4.0-11.0)
[2018-01-23] MEDS: Midazolam 50 MG/50 ML Inj 50 MG/50 ML BAG IV.CONT PRN (05:27)
[2018-01-23 05:42] LABS: Albumin 2.5 g/dL (3.4-5.0); Anion Gap 8 meq/L (5-15); Aspartate Aminotransferase 34 U/L (15-37); Blood Urea Nitrogen 7 mg/dL (7-18); Calcium 7.7 mg/dL (8.5-10.1); Carbon Dioxide 24.6 meq/L (21.0-32.0); Chloride 110 meq/L (98-107); Glomerular Filtration Rate Greater Than 89 mL/min (>89); Glucose,Random 110 mg/dL (74-106); Potassium 3.9 meq/L (3.5-5.1); Sodium 143 meq/L (136-145)
[2018-01-23 05:43] LABS: Alanine Aminotransferase 16 U/L (12-78)
[2018-01-23 05:45] LABS: Alkaline Phosphatase 167 U/L (45-117); Total Protein 6.7 g/dL (6.4-8.2)
[2018-01-23] MEDS: Senna/Docusate Sodium 8.6/50 MG Tablet PO SCH ×2 (08:08→20:46)
[2018-01-23] MEDS: Pantoprazole Inj 40 MG Vial IV.PUSH SCH ×2 (08:08→20:46)
[2018-01-23] MEDS: rifAXIMin 550 MG Tablet PO SCH ×2 (08:08→20:46)
[2018-01-23] MEDS: Lisinopril 20 MG Tablet PO SCH (08:08)
[2018-01-23] MEDS: amLODIPine 5 MG Tablet PO SCH (08:08)
[2018-01-23] MEDS: Chlorhexidine 0.12% Oral Kit 15 ML UDC OROPHARYNG SCH ×2 (08:09→20:46)
[2018-01-23] MEDS: Divalproex 500 MG DR Tablet PO SCH (08:09)
[2018-01-23] MEDS: Potassium Phosphate 500 MG Soluble Tablet PO PRN (10:37)
--- NOTE | 2018-01-23 11:40 | P.PNFP ---
Subjective Interval history: Patient resting in bedroom when team went to assessment. No acute events overnight. Patient not arousable with touch or auditory stimulation. Patient continues to be on PEEP and intubated. Continues to require multiple sedative medications. <Irma Zhang C - 01/23/18 11:39> Results - Labs Result diagrams: 01/23/18 04:54 01/23/18 04:54 <Kusum Weiss - 01/23/18 13:29> Abnormal lab results 01/23/18 01/23/18 01/23/18 Range/Units 00:13 04:54 04:54 Hgb 11.8 L (13.0-17.0) gm/dL Hct 37.1 L (39.0-51.0) % MCV 79.8 L (80.0-100.0) fL MCH 25.3 L (27.0-34.0) pg MCHC 31.7 L (32.0-36.0) % RDW 18.2 H (11.6-17.2) % Plt Count 93 L D (150-450) th/mm3 Hanson % (Auto) 21.3 H (0.0-8.0) % Hanson # (Auto) 1.6 H (0.0-0.9) th/mm3 Chloride (98-107) meq/L POC Glucose 111 H (68-110) mg/dl Random Glucose (74-106) mg/dL Calcium (8.5-10.1) mg/dL Alkaline Phosphatase (45-117) U/L Ammonia 75 H (11-32) mcmol/L Albumin (3.4-5.0) g/dL 01/23/18 01/23/18 01/23/18 Range/Units 04:54 05:32 07:45 Hgb (13.0-17.0) gm/dL Hct (39.0-51.0) % MCV (80.0-100.0) fL MCH (27.0-34.0) pg MCHC (32.0-36.0) % RDW (11.6-17.2) % Plt Count (150-450) th/mm3 Hanson % (Auto) (0.0-8.0) % Hanson # (Auto) (0.0-0.9) th/mm3 Chloride 110 H (98-107) meq/L POC Glucose 113 H 112 H (68-110) mg/dl Random Glucose 110 H (74-106) mg/dL Calcium 7.7 L (8.5-10.1) mg/dL Alkaline Phosphatase 167 H (45-117) U/L Ammonia (11-32) mcmol/L Albumin 2.5 L (3.4-5.0) g/dL Short CBC 01/23/18 Range/Units 04:54 WBC 7.5 (4.0-11.0) th/mm3 Hgb 11.8 L (13.0-17.0) gm/dL Hct 37.1 L (39.0-51.0) % Plt Count 93 L D (150-450) th/mm3 BMP 01/23/18 01/23/18 00:10 04:54 Sodium 143 Potassium 3.6 3.9 Chloride 110 H Carbon Dioxide 24.6 BUN 7 Creatinine 0.76 Calcium 7.7 L Liver Function 01/23/18 Range/Units 04:54 Total Bilirubin 1.0 (0.2-1.0) mg/dL AST 34 (15-37) U/L ALT 16 (12-78) U/L Alkaline Phosphatase 167 H (45-117) U/L Albumin 2.5 L (3.4-5.0) g/dL <Kusum Weiss - 01/23/18 13:29> Abnormal lab results 01/23/18 01/23/18 01/23/18 Range/Units 00:13 04:54 04:54 Hgb 11.8 L (13.0-17.0) gm/dL Hct 37.1 L (39.0-51.0) % MCV 79.8 L (80.0-100.0) fL MCH 25.3 L (27.0-34.0) pg MCHC 31.7 L (32.0-36.0) % RDW 18.2 H (11.6-17.2) % Plt Count 93 L D (150-450) th/mm3 Hanson % (Auto) 21.3 H (0.0-8.0) % Hanson # (Auto) 1.6 H (0.0-0.9) th/mm3 Chloride (98-107) meq/L POC Glucose 111 H (68-110) mg/dl Random Glucose (74-106) mg/dL Calcium (8.5-10.1) mg/dL Alkaline Phosphatase (45-117) U/L Ammonia 75 H (11-32) mcmol/L Albumin (3.4-5.0) g/dL 01/23/18 01/23/18 01/23/18 Range/Units 04:54 05:32 07:45 Hgb (13.0-17.0) gm/dL Hct (39.0-51.0) % MCV (80.0-100.0) fL MCH (27.0-34.0) pg MCHC (32.0-36.0) % RDW (11.6-17.2) % Plt Count (150-450) th/mm3 Hanson % (Auto) (0.0-8.0) % Hanson # (Auto) (0.0-0.9) th/mm3 Chloride 110 H (98-107) meq/L POC Glucose 113 H 112 H (68-110) mg/dl Random Glucose 110 H (74-106) mg/dL Calcium 7.7 L (8.5-10.1) mg/dL Alkaline Phosphatase 167 H (45-117) U/L Ammonia (11-32) mcmol/L Albumin 2.5 L (3.4-5.0) g/dL Short CBC 01/23/18 Range/Units 04:54 WBC 7.5 (4.0-11.0) th/mm3 Hgb 11.8 L (13.0-17.0) gm/dL Hct 37.1 L (39.0-51.0) % Plt Count 93 L D (150-450) th/mm3 BMP 01/23/18 01/23/18 00:10 04:54 Sodium 143 Potassium 3.6 3.9 Chloride 110 H Carbon Dioxide 24.6 BUN 7 Creatinine 0.76 Calcium 7.7 L Liver Function 01/23/18 Range/Units 04:54 Total Bilirubin 1.0 (0.2-1.0) mg/dL AST 34 (15-37) U/L ALT 16 (12-78) U/L Alkaline Phosphatase 167 H (45-117) U/L Albumin 2.5 L (3.4-5.0) g/dL <Irma Zhang C - 01/23/18 11:39> - Imaging Impressions Chest X-Ray 01/23/18 06:00 CONCLUSION: Mid inspiratory study with crowding of the lung vasculature. <Kusum Weiss R - 01/23/18 13:29> Impressions Chest X-Ray 01/23/18 06:00 CONCLUSION: Mid inspiratory study with crowding of the lung vasculature. <Irma Zhang C - 01/23/18 11:39> Physical Exam Vital signs: Vital Signs 01/22/18 15:00 01/22/18 16:00 01/22/18 20:00 Temperature 100.9 F H 99.0 F Pulse Rate 78 77 79 Respiratory Rate 18 16 18 Blood Pressure 99/56 L 127/68 Pulse Oximetry 97 99 01/22/18 20:12 01/23/18 00:00 01/23/18 00:45 Temperature 99.0 F Pulse Rate 80 76 76 Respiratory Rate 21 16 16 Blood Pressure 97/65 L Pulse Oximetry 100 100 100 01/23/18 04:00 01/23/18 04:04 01/23/18 08:00 Temperature 99.0 F 99.2 F Pulse Rate 81 103 H 67 Respiratory Rate 25 H 24 18 Blood Pressure 116/58 L 122/78 Pulse Oximetry 100 100 94 L 01/23/18 08:19 01/23/18 12:00 Temperature 98.9 F Pulse Rate 93 H 96 H Respiratory Rate 16 19 Blood Pressure 127/83 Pulse Oximetry 100 95 Intake & Output 01/22/18 01/23/18 01/23/18 18:59 06:59 18:59 Intake Total 1572 / 1572 1100 / 1100 865.0 / 865.0 Output Total 800 / 800 1000 / 1000 Balance 772 / 772 100 / 100 865.0 / 865.0 Weight 110 kg Intake: IV 1165 / 1165 700 / 700 865.0 / 865.0 Versed Inj 50 mg In 50 ml @ 2 50 / 50 50 / 50 MG/HR 2 mls/hr IV.CONT TITRATE PRN Rx#:[id number] Diprivan 1000 mg/100 ml Inj 1, 100 / 100 100 / 100 000 mg In 100 ml @ 5 MCG/KG/MIN 2.994 mls/hr IV.CONT TITRATE PRN Rx#:[id number] Zosyn 4.5 GM Premix 4.5 gm In 200 / 200 200 / 200 100 / 100 100 ml @ 200 mls/hr IV.SIG Q6H [facility] Rx#:[id number] KCl 20 mEq Premix Inj 20 meq In 300 / 300 100 / 100 100 ml @ 50 mls/hr IV.SIG Q2H PRN Rx#:[id number] Vancomycin Inj 1,000 MG In NS 250 / 250 Inj 250 ML @ 250 mls/hr IV.SIG Q8H [facility] Rx#:[id number] Vancomycin Inj 1,500 MG In NS 515 / 515 515.0 / 515.0 Inj 500 ML @ 257.5 mls/hr IV. SIG Q12H [facility] Rx#:[id number] fentaNYL 10 mcg/mL Premix Drip 250 / 250 2,500 mcg In 250 ml @ 50 MCG/HR 5 mls/hr IV.SIG TITRATE PRN Rx #:[id number] Oral 0 / 0 Tube Feeding 407 / 407 400 / 400 Output: Stool 0 / 0 Urine/Stool Mix 0 / 0 Urine Amount (Catheter) 800 / 800 900 / 900 Straight 800 / 800 900 / 900 Gastric Drainage 100 / 100 Orogastric Tube 100 / 100 Other: Date of Last Bowel Movement 01/22/18 01/22/18 01/22/18 # Bowel Movements 0 # Incontinent Bowel Movements 1 0 <Kusum Weiss R - 01/23/18 13:29> Vital Signs 01/22/18 11:44 01/22/18 12:00 01/22/18 15:00 Temperature 99.1 F Pulse Rate 65 78 Respiratory Rate 16 18 18 Blood Pressure 108/70 Pulse Oximetry 98 99 01/22/18 16:00 01/22/18 20:00 01/22/18 20:12 Temperature 100.9 F H 99.0 F Pulse Rate 77 79 80 Respiratory Rate 16 18 21 Blood Pressure 99/56 L 127/68 Pulse Oximetry 97 99 100 01/23/18 00:00 01/23/18 00:45 01/23/18 04:00 Temperature 99.0 F 99.0 F Pulse Rate 76 76 81 Respiratory Rate 16 16 25 H Blood Pressure 97/65 L 116/58 L Pulse Oximetry 100 100 100 01/23/18 04:04 01/23/18 08:00 01/23/18 08:19 Temperature 99.2 F Pulse Rate 103 H 67 93 H Respiratory Rate 24 18 16 Blood Pressure 122/78 Pulse Oximetry 100 94 L 100 Intake & Output 01/22/18 01/23/18 01/23/18 18:59 06:59 18:59 Intake Total 1572 / 1572 1100 / 1100 865.0 / 865.0 Output Total 800 / 800 1000 / 1000 Balance 772 / 772 100 / 100 865.0 / 865.0 Weight 110 kg Intake: IV 1165 / 1165 700 / 700 865.0 / 865.0 Versed Inj 50 mg In 50 ml @ 2 50 / 50 50 / 50 MG/HR 2 mls/hr IV.CONT TITRATE PRN Rx#:[id number] Diprivan 1000 mg/100 ml Inj 1, 100 / 100 100 / 100 000 mg In 100 ml @ 5 MCG/KG/MIN 2.994 mls/hr IV.CONT TITRATE PRN Rx#:[id number] Zosyn 4.5 GM Premix 4.5 gm In 200 / 200 200 / 200 100 / 100 100 ml @ 200 mls/hr IV.SIG Q6H [facility] Rx#:[id number] KCl 20 mEq Premix Inj 20 meq In 300 / 300 100 / 100 100 ml @ 50 mls/hr IV.SIG Q2H [facility] Rx#:[id number] Vancomycin Inj 1,000 MG In NS 250 / 250 Inj 250 ML @ 250 mls/hr IV.SIG Q8H [facility] Rx#:[id number] Vancomycin Inj 1,500 MG In NS 515 / 515 515.0 / 515.0 Inj 500 ML @ 257.5 mls/hr IV. SIG Q12H [facility] Rx#:[id number] fentaNYL 10 mcg/mL Premix Drip 250 / 250 2,500 mcg In 250 ml @ 50 MCG/HR 5 mls/hr IV.SIG TITRATE PRN Rx #:[id number] Oral 0 / 0 Tube Feeding 407 / 407 400 / 400 Output: Stool 0 / 0 Urine/Stool Mix 0 / 0 Urine Amount (Catheter) 800 / 800 900 / 900 Straight 800 / 800 900 / 900 Gastric Drainage 100 / 100 Orogastric Tube 100 / 100 Other: Date of Last Bowel Movement 01/22/18 01/22/18 01/22/18 # Bowel Movements 0 # Incontinent Bowel Movements 1 0 <Irma Zhang 01/23/18 11:39> Narrative: GENERAL: 52-year-old male currently orotracheally intubated SKIN: Warm and dry. No petechia or rash HEAD: Atraumatic. Normocephalic. EYES: Pupils equal and round about 3 mm bilaterally and reactive. No scleral icterus. No injection or drainage. ENT: No nasal bleeding or discharge. Orotracheally intubated large amount of ET tube secretions NECK: Trachea midline. No JVD. CARDIOVASCULAR: Regular rate and rhythm. S1, S2 no S4. No murmur RESPIRATORY: B/l equa air entry. Few coarse rhonchi GASTROINTESTINAL: Abdomen soft, non-tender, slightly distended. MUSCULOSKELETAL: Extremities without clubbing, cyanosis, or edema. No obvious deformities. NEUROLOGICAL: Intubated and sedated. On sedation lightening spontaneously moves lower extremities no movements noted on the upper extremities. No spontaneous eye opening <Irma Zhang 01/23/18 11:39> - Urinary Catheter Management 400 Cath placed during this visit: no <Kusum Weiss 01/23/18 13:29> no <Irma Zhang 01/23/18 11:42> Straight Cath placed during this visit: no <Kusum Weiss 01/23/18 13:29> no <Irma Zhang 01/23/18 11:42> Assessment and Plan - Assessment (1) Alcohol withdrawal Code(s): F10.239 - Alcohol dependence with withdrawal, unspecified Status: Acute (2) Abdominal pain Code(s): R10.9 - Unspecified abdominal pain Status: Acute (3) Esophageal varices in cirrhosis Code(s): K74.60 - Unspecified cirrhosis of liver; I85.10 - Secondary esophageal varices without bleeding Status: Chronic (4) Hypertension Code(s): I10 - Essential (primary) hypertension Status: Chronic (5) Alcohol abuse Code(s): F10.10 - Alcohol abuse, uncomplicated Status: Chronic (6) Depression with anxiety Code(s): F41.8 - Other specified anxiety disorders Status: Chronic (7) Cough Code(s): R05 - Cough Status: Acute (8) Diabetes Code(s): E11.9 - Type 2 diabetes mellitus without complications Status: Chronic (9) Deep vein thrombosis (DVT) of brachial vein Code(s): I82.629 - Acute embolism and thrombosis of deep veins of unspecified upper extremity Status: Acute (10) Nutrition, metabolism, and development symptoms Code(s): R63.8 - Other symptoms and signs concerning food and fluid intake Status: Acute <Kusum Weiss R - 01/23/18 13:29> (1) Alcohol withdrawal Code(s): F10.239 - Alcohol dependence with withdrawal, unspecified Status: Acute Plan: Patient with extensive alcohol abuse history for the past 30 years complicated by cirrhosis and esophageal variceal GI bleed. Currently receiving treatment for alcoholism at [facility] since July of this year. Reports he is taking a medication to help with his alcoholism however he has not been compliant and has been drinking at least 2 beers per day. Presented to the ED with severe abdominal pain, vomiting and nausea. Continue with CIWA protocol Patient with worsening with alcohol withdrawal symptoms and was transferred to critical care on 01/18. Limo Driver consulted, appreciate recommendations Patient placed on Precedex drip on 01/18 Patient placed n.p.o. c/w IV fluids D5NS 50 mL/hr Continue to monitor vital signs, continue to monitor ammonia and cmp Patient intubated on 01/19; Current PRVC peep 5 FiO2 40%; failed CPAP trial Currently on fentanyl 15 mL/hr and propofol 15 mL/h drips for sedation/ analgesia while intubated. Also on Versed 5 Continue vitamin bag daily times [address] brain: No acute abnormalities Ammonia level elevated at 70-> 81->98->72->59->56; elevated today at 75 Lactulose increased from daily to 4 times daily Rifaximin 550 BID monitor ammonia levels (2) Abdominal pain Code(s): R10.9 - Unspecified abdominal pain Status: Acute Plan: Patient is a 52-year-old male with past medical history of alcoholism, cirrhosis and esophageal variceal GI bleed who presented to the ED with complaint of umbilical abdominal pain, nausea, and vomiting for the past 2 days. Patient reports tooth extraction 2 days prior to admission and malaise ( abdominal pain, vomiting x10 times with questionable blood in vomit which he attributes to tooth extraction however due to patient's history of upper GI bleed due to esophageal varices will consult GI for further evaluation). On admission patient was slightly hypertensive however he was afebrile and no leukocytosis appreciated on CBC. CT abdomen: Showing edema of mesenteric, small metallic object in the transverse colon (which may have been part of patient's dental filling) and cirrhosis with portal hypertension and significant esophageal varices. Zofran for nausea Pain controlled with hydromorphone PRN which patient has had in the past without any adverse reactions Protonix IV twice daily Cipro for prophylaxis; discontinued 01/22 octreotide drip 25 mcg/h GI consulted for further recommendations, -Protonix, prophylactic antibiotic and octreotide drip -H&H stable and abdominal ultrasound negative for ascites -EGD procedure 01/16 showed: Esophageal varices grade 2 status post 4 band applied, biopsies taken from gastric antrum. Repeat EGD in 2 months. -vocal cord mass noted on intubation and ENT was consulted for further evaluation. -non-selective beta deena and follow up outpatient in two weeks. - GI has signed off ENT consulted Normal evaluation of vocal cords with laryngoscope neck CT no abnormal findings, no evidence of laryngeal lesion -will assess as needed (3) Esophageal varices in cirrhosis Code(s): K74.60 - Unspecified cirrhosis of liver; I85.10 - Secondary esophageal varices without bleeding Status: Chronic Plan: See plan above for abdominal pain (4) Hypertension Code(s): I10 - Essential (primary) hypertension Status: Chronic Plan: Resume home medications Clonidine PRN Continue to monitor blood pressure. (5) Alcohol abuse Code(s): F10.10 - Alcohol abuse, uncomplicated Status: Chronic Plan: See alcohol withdrawal plan above (6) Depression with anxiety Code(s): F41.8 - Other specified anxiety disorders Status: Chronic Plan: Resume home medications (7) Cough Code(s): R05 - Cough Status: Acute Plan: Patient with history of chronic cough and wheezing. -GI saw abnormal vocal cords for EGD so consulted Pulmonology and ENT -Pulmonology: recommended aerosol treatment and tessalon 200 mg TID and smoking cessation. Recommended follow up pulmonary function studies once acute illness treated. -ENT: CT neck was negative. No mass visualized with laryngoscopy. Can follow up OP for post nasal drip -Sputum culture: MRSA -Started on vancomycin and zosyn -BCX pending -Chest x-ray: Support equipment in good position. Small areas of atelectasis in both lung bases. (8) Diabetes Code(s): E11.9 - Type 2 diabetes mellitus without complications Status: Chronic Plan: Sliding scale insulin low Accu-Cheks Hypoglycemia protocol (9) Deep vein thrombosis (DVT) of brachial vein Code(s): I82.629 - Acute embolism and thrombosis of deep veins of unspecified upper extremity Status: Acute Plan: 1111 venous Doppler study: DVT of right mid brachial vein Anticoagulation therapy complicated given possible GI bleed -will follow critical care recommendations of Lovenox 40 (10) Nutrition, metabolism, and development symptoms Code(s): R63.8 - Other symptoms and signs concerning food and fluid intake Status: Acute Plan: Electrolytes: Replete as needed Diet: N.p.o. DVT prophylaxis: lovenox 40 <Irma Zhang - 01/23/18 11:41> - Attending Attestation This patient was seen and examined. The assessment and plan was discussed with the resident physician and I am in agreement with continued medical care as documented in this encounter. KUSUM WEISS MD <Kusum Weiss - 01/23/18 13:29>
[2018-01-23] MEDS: Vancomycin Inj 1,750 MG in Sodium Chlor 0.9% Inj 500 ML IV.SIG SCH ×2 (12:41→23:49)
--- NOTE | 2018-01-23 14:21 | P.PNCC ---
Subjective Subjective Remarks/Hospital Course: The patient is a 52-year-old male with a past medical history of ETOH abuse, cirrhosis of liver secondary to alcohol, hypertension, diabetes mellitus, anxiety, depression, prior history of upper gastrointestinal bleed x2 due to esophageal varices. The patient was admitted under the family medicine team on 01/15/[address] for abdominal pain. A CT scan of the abdomen and pelvis showed a cirrhotic liver with evidence of portal hypertension and prominent gastroesophageal varices. No ascites noted. The patient also underwent an ultrasound of the abdomen, which showed no significant ascites. He was seen by GI service and underwent upper endoscopy on 01/16/2018 which showed grade 2 esophageal varices, status post banding x4, gastritis and hiatal hernia. The patient also had a CT scan of the chest on 01/16/2018 which showed mild infiltrates in the posterior lower lung hussein suggestive of atelectasis and nonspecific 1.5 cm lymph node in the anterior superior mediastinum. He is being followed by Dr. Maki from pulmonary service. Due to altered mental status and possible alcohol withdrawal he was transferred to ICU and critical care medicine was consulted for critical care management. He received Ativan 6-8 mg total along with Haldol and the patient remained restless and agitated. Most of the history was obtained from reviewing medical records as the patient is a poor historian. ABG was performed this morning on room air, which showed a pH of 7.44, CO2 41, PaO2 69, bicarbonate 27, saturation 91%. 01/19: Patient with worsening oxygenation status. Essentially unresponsive obtunded. Ammonia level is 98 this morning. Elective intubation. 01/20 Patient is intubated and sedated, afebrile. 01/21 Patient remains sedated with Fentnayl, Diprivan and Versed. T;100.5, CT brain yesterday no acute findings. 01/22: Remains intubated sedated Versed had been held since a.m. Remains unresponsive failed CPAP trial today due to tachypnea. Spontaneously moves lower extremities no spontaneous eye opening. Large amount of ET tube secretions reported. Sputum cx 01/19 MRSA 01/23: Remains sedated and intubated, some mild dyssynchrony with the vent during my exam. Objective Vital Signs / I&O: Vital Signs 01/22/18 15:00 01/22/18 16:00 01/22/18 20:00 Temperature 100.9 F H 99.0 F Pulse Rate 78 77 79 Respiratory Rate 18 16 18 Blood Pressure 99/56 L 127/68 Pulse Oximetry 97 99 01/22/18 20:12 01/23/18 00:00 01/23/18 00:45 Temperature 99.0 F Pulse Rate 80 76 76 Respiratory Rate 21 16 16 Blood Pressure 97/65 L Pulse Oximetry 100 100 100 01/23/18 04:00 01/23/18 04:04 01/23/18 08:00 Temperature 99.0 F 99.2 F Pulse Rate 81 103 H 67 Respiratory Rate 25 H 24 18 Blood Pressure 116/58 L 122/78 Pulse Oximetry 100 100 94 L 01/23/18 08:19 01/23/18 12:00 Temperature 98.9 F Pulse Rate 93 H 96 H Respiratory Rate 16 19 Blood Pressure 127/83 Pulse Oximetry 100 95 Intake & Output 01/22/18 01/23/18 01/23/18 18:59 06:59 18:59 Intake Total 1572 / 1572 1100 / 1100 965.0 / 965.0 Output Total 800 / 800 1000 / 1000 Balance 772 / 772 100 / 100 965.0 / 965.0 Weight 110 kg Intake: IV 1165 / 1165 700 / 700 965.0 / 965.0 Versed Inj 50 mg In 50 ml @ 2 50 / 50 50 / 50 MG/HR 2 mls/hr IV.CONT TITRATE PRN Rx#:[id number] Diprivan 1000 mg/100 ml Inj 1, 100 / 100 100 / 100 100 / 100 000 mg In 100 ml @ 5 MCG/KG/MIN 2.994 mls/hr IV.CONT TITRATE PRN Rx#:[id number] Zosyn 4.5 GM Premix 4.5 gm In 200 / 200 200 / 200 100 / 100 100 ml @ 200 mls/hr IV.SIG Q6H [facility] Rx#:[id number] KCl 20 mEq Premix Inj 20 meq In 300 / 300 100 / 100 100 ml @ 50 mls/hr IV.SIG Q2H PRN Rx#:[id number] Vancomycin Inj 1,000 MG In NS 250 / 250 Inj 250 ML @ 250 mls/hr IV.SIG Q8H [facility] Rx#:[id number] Vancomycin Inj 1,500 MG In NS 515 / 515 515.0 / 515.0 Inj 500 ML @ 257.5 mls/hr IV. SIG Q12H [facility] Rx#:[id number] fentaNYL 10 mcg/mL Premix Drip 250 / 250 2,500 mcg In 250 ml @ 50 MCG/HR 5 mls/hr IV.SIG TITRATE PRN Rx #:[id number] Oral 0 / 0 Tube Feeding 407 / 407 400 / 400 Output: Stool 0 / 0 Urine/Stool Mix 0 / 0 Urine Amount (Catheter) 800 / 800 900 / 900 Straight 800 / 800 900 / 900 Gastric Drainage 100 / 100 Orogastric Tube 100 / 100 Other: Date of Last Bowel Movement 01/22/18 01/22/18 01/22/18 # Bowel Movements 0 # Incontinent Bowel Movements 1 0 Result Diagrams: 01/23/18 04:54 01/23/18 04:54 Objective Remarks: GENERAL: Intubated, sedated SKIN: Warm, mild diaphoresis. No petechia or rash HEAD: Atraumatic. Normocephalic. EYES: Pupils equal and round about 3 mm bilaterally and sluggishly reactive. No injection or drainage. ENT: No nasal bleeding or discharge. Orotracheally intubated large amount of ET tube secretions NECK: Trachea midline. No JVD. CARDIOVASCULAR: Regular rate and rhythm. No murmur RESPIRATORY: B/l equal air entry. Few coarse rhonchi GASTROINTESTINAL: Abdomen soft, non-tender, slightly distended. MUSCULOSKELETAL: Extremities without clubbing, cyanosis, or edema. No obvious deformities. NEUROLOGICAL: Intubated and sedated. No spontaneous eye opening. RASS -1. Assessment and Plan - Assessment and Plan Plan: 1. Altered mental status/toxic metabolic encephalopathy secondary to elevated ammonia and delirium tremens. 2. Acute respiratory failure, MRSA in sputum 3. Cirrhosis of the liver secondary to ETOH abuse, Hepatic encephalopathy 4. 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 5. Hypertension. 6. Diabetes mellitus hemoglobin A1c 6.0. 7. Ongoing abuse/EtOH 8. History of cannabinoids use 9. Hypoalbuminemia 10. Esophageal varices status post banding by GI 11. Elevated BMI Neuro/Psych: Currently on Versed/fentanyl/Diprivan drips for sedation/analgesia while intubated Daily sedation vacation Continue lactulose and rifaximin, trend ammonia CT brain 01/20: No acute intracranial findings CV: Monitor HR and BP keep MAP>65mmHg Continue amlodipine 5 mg daily and lisinopril 40 mg daily Continue propranolol 20 mg twice daily As needed clonidine 0.1 mg every 6 hours Continue pravastatin 40 mg daily for hyperlipidemia Resp: PRVC /03/15/39, ventilator bundle Albuterol/ipratropium aerosols every 4 hours with albuterol aerosols every 2 hours as needed dyspnea. Spontaneous breathing trials as juan, mental status will not permit extubation GI: Status post EGD on 01/16/2018 which showed grade 2 esophageal varices, status post banding x4. Abdominal ultrasound on 01/15/2018 showed no evidence of significant ascites. On tube feeds-Glucerna 1.5 with goal rate 50 ml/hr Pantoprazole 40 m IV twice daily for GI prophylaxis On lactulose 30 cc QID and Xifaxan 550 mg twice daily. Ammonia level 75. : Monitor renal function, electrolytes replacement per protocol. Electrolyte replacement per protocol Endo: Sliding scale insulin with Accu-Cheks every 6 hours to maintain euglycemia Hemoglobin A1c was 6.0 Heme: Monitor CBC No indication for transfusion of blood products at this time. ID: Continue Vanco, Zosyn. Monitor for signs of infections (Fever, WBC) Sputum cx01/19: MRSA Blood cultures negative to date Access -Utilize peripheral IV. Prophylaxis -GI-pantoprazole - DVT SCD/pharmacological prophylaxis contraindicated with bleeding and esophageal varices on EGD-- if Hg continues to be stable tomorrow, will start SQH - 01/19 Doppler US RUE: Positive for nonocclusive deep venous thrombosis in the right mid brachial vein. Counseling/ Coordination of Care: This patient is critically ill with impairment of one or more vital organ systems with a high probability of imminent or life-threatening deterioration. High-complexity medical decision making was required to support vital organ function and/ or prevent deterioration in the patient's condition. Total critical care time spent is 40 minutes giving full attention to this patient. This includes examining the patient, gathering history from someone other than the patient (i.e. chart review), discussing the patient's care with other providers, managing the patient's blood pressure and ventilator settings, ordering and interpreting radiologic studies, ordering and interpreting laboratory values, managing the patient's sedation requirements, re-evaluation at frequent intervals, and documentation. Amount of time is separate from teaching, counseling the patient and/or family, and exclusive of procedures. To help prompt me to consider important information that might be impacting today's encounter and assessment, information from prior notes written by myself or my colleagues may have been "brought forward" into today's note. My signature on this note, however, is an attestation that I personally performed the exam, history, and/or decision-making noted today, and, unless otherwise indicated, the interactions with patient, family, and staff as well as the review of records all occurred today. I also attest that the listed assessment and stated plan reflect my best clinical judgment today based on the combination of historical information, prior notes, and today's exam/ interactions.
[2018-01-23] MEDS: Enoxaparin Inj 40 MG/0.4 ML Syringe SQ SCH (16:06)
--- NOTE | 2018-01-23 19:09 | P.PNPL ---
Subjective Interval history: 52 YO male with GIB, cirrhosis Developed resp distress, agitation Remains Intubated Sedated with Fentanyl, diprivan and Versed Did't tolerate CPAP Physical Exam Vital signs: Vital Signs 01/22/18 20:00 01/22/18 20:12 01/23/18 00:00 Temperature 99.0 F 99.0 F Pulse Rate 79 80 76 Respiratory Rate 18 21 16 Blood Pressure 127/68 97/65 L Pulse Oximetry 99 100 100 01/23/18 00:45 01/23/18 04:00 01/23/18 04:04 Temperature 99.0 F Pulse Rate 76 81 103 H Respiratory Rate 16 25 H 24 Blood Pressure 116/58 L Pulse Oximetry 100 100 100 01/23/18 08:00 01/23/18 08:19 01/23/18 11:50 Temperature 99.2 F Pulse Rate 67 93 H 74 Respiratory Rate 18 16 19 Blood Pressure 122/78 Pulse Oximetry 94 L 100 99 01/23/18 12:00 01/23/18 16:00 01/23/18 16:39 Temperature 98.9 F 99.7 F H Pulse Rate 96 H 89 94 H Respiratory Rate 19 16 20 Blood Pressure 127/83 113/76 Pulse Oximetry 95 99 96 Intake & Output 01/23/18 01/23/18 01/24/18 06:59 18:59 06:59 Intake Total 1100 / 1100 1822.5 / 1822.5 Output Total 1000 / 1000 500 / 500 Balance 100 / 100 1322.5 / 1322.5 Weight 110 kg Intake: IV 700 / 700 1632.5 / 1632.5 Versed Inj 50 mg In 50 ml @ 2 50 / 50 50 / 50 MG/HR 2 mls/hr IV.CONT TITRATE PRN Rx#:[id number] Diprivan 1000 mg/100 ml Inj 1, 100 / 100 100 / 100 000 mg In 100 ml @ 5 MCG/KG/MIN 2.994 mls/hr IV.CONT TITRATE PRN Rx#:[id number] Zosyn 4.5 GM Premix 4.5 gm In 200 / 200 200 / 200 100 ml @ 200 mls/hr IV.SIG Q6H [facility] Rx#:[id number] KCl 20 mEq Premix Inj 20 meq In 100 / 100 100 ml @ 50 mls/hr IV.SIG Q2H PRN Rx#:[id number] Vancomycin Inj 1,000 MG In NS 250 / 250 Inj 250 ML @ 250 mls/hr IV.SIG Q8H [facility] Rx#:[id number] Vancomycin Inj 1,750 MG In NS 1032.5 / 1032.5 Inj 500 ML @ 250 mls/hr IV.SIG Q12H [facility] Rx#:[id number] fentaNYL 10 mcg/mL Premix Drip 250 / 250 2,500 mcg In 250 ml @ 50 MCG/HR 5 mls/hr IV.SIG TITRATE PRN Rx #:[id number] Oral 0 / 0 Tube Feeding 400 / 400 130 / 130 Tube Irrigant 60 / 60 Output: Stool 0 / 0 Urine/Stool Mix 0 / 0 Urine Amount (Catheter) 900 / 900 500 / 500 Straight 900 / 900 500 / 500 Gastric Drainage 100 / 100 Orogastric Tube 100 / 100 Other: Date of Last Bowel Movement 01/22/18 01/22/18 # Bowel Movements 0 # Incontinent Bowel Movements 0 GENERAL: WBWN, On Vent, sedated SKIN: Warm and dry. HEAD: Normocephalic. EYES: No scleral icterus. No injection or drainage. NECK: Supple, trachea midline. No JVD or lymphadenopathy. CARDIOVASCULAR: Regular rate and rhythm without murmurs, gallops, or rubs. RESPIRATORY: Breath sounds equal bilaterally. No accessory muscle use. GASTROINTESTINAL: Abdomen soft, non-tender, nondistended. MUSCULOSKELETAL: No cyanosis, or edema. BACK: Nontender without obvious deformity. No CVA tenderness. - Urinary Catheter Management Straight Cath placed during this visit: no 400 Cath placed during this visit: no Assessment and Plan - Plan IMPRESSION: 1. Mild shortness of breath and cough, possibly underlying asthma. 2. Hypertension. 3. Diabetes mellitus. 4. Cirrhosis of the liver. 5. VDRF PLAN: Vent support PRVC AC, Fi02 40% Sedation with Fentanyl, Diprivan And Versed Depakote 500 mg daily haldol prn Daily CPAP trial.
[2018-01-23] MEDS ORDERED: Pharmacy Ordered Lab Info OTHER ONE (19:45)
[2018-01-23] MEDS: fentaNYL 10 mcg/mL Premix Drip 2,500 MCG/250 ML BAG IV.SIG PRN (21:22)
[2018-01-24] MEDS: Propofol 1000 mg/100 ml Inj 1,000 MG/100 ML BOTTLE IV.CONT PRN ×2 (00:21→11:30)
[2018-01-24] MEDS: Piperacil/Tazo 4.5 GM Premix 4.5 GM/100 ML BAG IV.SIG SCH ×4 (02:24→20:38)
[2018-01-24] MEDS: Midazolam 50 MG/50 ML Inj 50 MG/50 ML BAG IV.CONT PRN ×2 (04:03→13:37)
[2018-01-24] MEDS: Insulin NovoLOG Aspart Correctional Sugar Inj SQ SCH ×4 (06:15→19:45)
[2018-01-24] MEDS: Artificial Tears Opth Drops 15 ML Bottle EACH EYE SCH ×3 (06:16→22:03)
[2018-01-24] MEDS: Oral Hygiene Kit OROPHARYNG SCH ×3 (06:16→17:46)
[2018-01-24] MEDS: Benzonatate 100 MG Capsule PO SCH ×3 (06:16→22:03)
[2018-01-24] MEDS: amLODIPine 5 MG Tablet PO SCH (09:48)
[2018-01-24] MEDS: Lisinopril 20 MG Tablet PO SCH (09:48)
[2018-01-24] MEDS: rifAXIMin 550 MG Tablet PO SCH ×2 (09:48→20:38)
[2018-01-24] MEDS: Pantoprazole Inj 40 MG Vial IV.PUSH SCH ×2 (09:49→20:38)
[2018-01-24] MEDS: Chlorhexidine 0.12% Oral Kit 15 ML UDC OROPHARYNG SCH ×2 (09:50→20:38)
[2018-01-24 10:39] LABS: Baso % (Auto) 0.6 % (0.0-2.0); Eos # (Auto) 0.2 th/mm3 (0.0-0.4); Eos % (Auto) 2.1 % (0.0-4.0); Hematocrit 31.6 % (39.0-51.0); Hemoglobin 10.4 gm/dL (13.0-17.0); Lymph # (Auto) 0.4 th/mm3 (1.0-4.8); Lymph % (Auto) 5.7 % (9.0-44.0); Mean Corpuscular Hemoglobin 25.8 pg (27.0-34.0); Mean Corpuscular Volume 78.2 fL (80.0-100.0); Mean Platelet Volume 8.6 fL (7.0-11.0); Mono # (Auto) 1.8 th/mm3 (0.0-0.9); Neut % (Auto) 67.6 % (16.0-70.0); Platelet Count 65 th/mm3 (150-450); Red Blood Count 4.05 mil/mm3 (4.50-5.90); Red Cell Distribution Width 18.3 % (11.6-17.2); White Blood Count 7.5 th/mm3 (4.0-11.0)
[2018-01-24 11:26] LABS: Alanine Aminotransferase 14 U/L (12-78); Albumin 2.3 g/dL (3.4-5.0); Alkaline Phosphatase 153 U/L (45-117); Anion Gap 10 meq/L (5-15); Aspartate Aminotransferase 29 U/L (15-37); Blood Urea Nitrogen 13 mg/dL (7-18); Calcium 7.8 mg/dL (8.5-10.1); Carbon Dioxide 22.7 meq/L (21.0-32.0); Chloride 110 meq/L (98-107); Glomerular Filtration Rate 32 mL/min (>89); Glucose,Random 124 mg/dL (74-106); Magnesium 2.1 mg/dL (1.5-2.5); Phosphorus 3.7 mg/dL (2.5-4.9); Potassium 3.9 meq/L (3.5-5.1); Sodium 143 meq/L (136-145); Total Protein 6.5 g/dL (6.4-8.2)
[2018-01-24 12:49] LABS: Platelet Morphology Normal (Normal)
[2018-01-24] MEDS: Senna/Docusate Sodium 8.6/50 MG Tablet PO SCH ×2 (12:58→20:38)
--- NOTE | 2018-01-24 13:03 | P.PNCC ---
Subjective Subjective Remarks/Hospital Course: The patient is a 52-year-old male with a past medical history of ETOH abuse, cirrhosis of liver secondary to alcohol, hypertension, diabetes mellitus, anxiety, depression, prior history of upper gastrointestinal bleed x2 due to esophageal varices. The patient was admitted under the family medicine team on 01/15/[address] for abdominal pain. A CT scan of the abdomen and pelvis showed a cirrhotic liver with evidence of portal hypertension and prominent gastroesophageal varices. No ascites noted. The patient also underwent an ultrasound of the abdomen, which showed no significant ascites. He was seen by GI service and underwent upper endoscopy on 01/16/2018 which showed grade 2 esophageal varices, status post banding x4, gastritis and hiatal hernia. The patient also had a CT scan of the chest on 01/16/2018 which showed mild infiltrates in the posterior lower lung hussein suggestive of atelectasis and nonspecific 1.5 cm lymph node in the anterior superior mediastinum. He is being followed by Dr. Maki from pulmonary service. Due to altered mental status and possible alcohol withdrawal he was transferred to ICU and critical care medicine was consulted for critical care management. He received Ativan 6-8 mg total along with Haldol and the patient remained restless and agitated. Most of the history was obtained from reviewing medical records as the patient is a poor historian. ABG was performed this morning on room air, which showed a pH of 7.44, CO2 41, PaO2 69, bicarbonate 27, saturation 91%. 01/19: Patient with worsening oxygenation status. Essentially unresponsive obtunded. Ammonia level is 98 this morning. Elective intubation. 01/20 Patient is intubated and sedated, afebrile. 01/21 Patient remains sedated with Fentnayl, Diprivan and Versed. T;100.5, CT brain yesterday no acute findings. 01/22: Remains intubated sedated Versed had been held since a.m. Remains unresponsive failed CPAP trial today due to tachypnea. Spontaneously moves lower extremities no spontaneous eye opening. Large amount of ET tube secretions reported. Sputum cx 01/19 MRSA 01/23: Remains sedated and intubated, some mild dyssynchrony with the vent during my exam. 01/24: Patient gets very agitated during sedation vacations, still requiring propofol/ versed/ fentanyl gtts. Temp is 99F, still diaphoretic on exam. Objective Vital Signs / I&O: Vital Signs 01/23/18 16:00 01/23/18 16:39 01/23/18 20:00 Temperature 99.7 F H 99.5 F Pulse Rate 89 94 H 96 H Respiratory Rate 16 20 17 Blood Pressure 113/76 121/78 Pulse Oximetry 99 96 99 01/23/18 20:11 01/23/18 20:13 01/23/18 22:30 Temperature Pulse Rate 94 H 86 Respiratory Rate 18 20 16 Blood Pressure Pulse Oximetry 99 99 01/23/18 23:00 01/23/18 23:30 01/24/18 00:00 Temperature 99.3 F Pulse Rate 82 81 82 Respiratory Rate 16 15 15 Blood Pressure 98/60 L 98/59 L 106/67 Pulse Oximetry 100 100 99 01/24/18 00:17 01/24/18 00:18 01/24/18 00:30 Temperature Pulse Rate 85 85 Respiratory Rate 21 20 14 Blood Pressure 109/65 Pulse Oximetry 100 100 01/24/18 01:00 01/24/18 01:30 01/24/18 02:00 Temperature Pulse Rate 90 85 86 Respiratory Rate 14 17 14 Blood Pressure 114/72 101/59 L 105/66 Pulse Oximetry 100 100 100 01/24/18 02:30 01/24/18 03:00 01/24/18 03:30 Temperature Pulse Rate 88 86 89 Respiratory Rate 16 15 18 Blood Pressure 113/71 112/66 103/69 Pulse Oximetry 100 100 100 01/24/18 03:32 01/24/18 04:00 01/24/18 04:30 Temperature 99 F Pulse Rate 89 89 87 Respiratory Rate 21 16 16 Blood Pressure 98/60 L 90/55 L Pulse Oximetry 100 100 97 01/24/18 05:00 01/24/18 05:36 01/24/18 06:00 Temperature Pulse Rate 85 96 H 102 H Respiratory Rate 16 18 22 Blood Pressure 96/62 L 125/71 Pulse Oximetry 98 100 100 01/24/18 06:01 01/24/18 06:31 01/24/18 07:00 Temperature Pulse Rate 103 H 93 H 87 Respiratory Rate 23 38 H 16 Blood Pressure 152/90 H 90/54 L 83/50 L Pulse Oximetry 97 96 97 01/24/18 07:30 01/24/18 08:00 01/24/18 08:30 Temperature Pulse Rate 87 84 84 Respiratory Rate 16 16 16 Blood Pressure 85/53 L 80/53 L 82/53 L Pulse Oximetry 95 98 96 01/24/18 09:00 01/24/18 09:30 01/24/18 10:00 Temperature Pulse Rate 84 81 82 Respiratory Rate 16 16 16 Blood Pressure 86/52 L 83/53 L 86/51 L Pulse Oximetry 98 97 95 01/24/18 10:30 01/24/18 11:00 01/24/18 12:00 Temperature Pulse Rate 80 79 Respiratory Rate 16 16 16 Blood Pressure 84/54 L Pulse Oximetry 97 98 Intake & Output 01/23/18 01/24/18 01/24/18 18:59 06:59 18:59 Intake Total 1822.5 / 1822.5 1339.5 / 1339.5 Output Total 500 / 500 1150 / 1150 Balance 1322.5 / 1322.5 189.5 / 189.5 Weight 100 kg Intake: IV 1632.5 / 1632.5 1117.5 / 1117.5 Versed Inj 50 mg In 50 ml @ 2 50 / 50 50 / 50 MG/HR 2 mls/hr IV.CONT TITRATE PRN Rx#:[id number] Diprivan 1000 mg/100 ml Inj 1, 100 / 100 100 / 100 000 mg In 100 ml @ 5 MCG/KG/MIN 2.994 mls/hr IV.CONT TITRATE PRN Rx#:[id number] Zosyn 4.5 GM Premix 4.5 gm In 200 / 200 200 / 200 100 ml @ 200 mls/hr IV.SIG Q6H [facility] Rx#:[id number] Vancomycin Inj 1,000 MG In NS 250 / 250 Inj 250 ML @ 250 mls/hr IV.SIG Q8H [facility] Rx#:[id number] Vancomycin Inj 1,750 MG In NS 1032.5 / 1032.5 517.5 / 517.5 Inj 500 ML @ 250 mls/hr IV.SIG Q12H [facility] Rx#:[id number] fentaNYL 10 mcg/mL Premix Drip 250 / 250 2,500 mcg In 250 ml @ 50 MCG/HR 5 mls/hr IV.SIG TITRATE PRN Rx #:[id number] Oral 0 / 0 Tube Feeding 130 / 130 222 / 222 Tube Irrigant 60 / 60 Output: Stool 0 / 0 Urine/Stool Mix 0 / 0 Urine Amount (Catheter) 500 / 500 1150 / 1150 Straight 500 / 500 1150 / 1150 Other: Date of Last Bowel Movement 01/22/18 01/22/18 01/22/18 # Bowel Movements 0 # Incontinent Bowel Movements 0 Result Diagrams: 01/24/18 12:22 01/24/18 12:22 Objective Remarks: GENERAL: Intubated, sedated SKIN: Warm, diaphoretic. No petechia or rash HEAD: Atraumatic. Normocephalic. EYES: Pupils equal and round about 3 mm and reactive bilaterally. ENT: No nasal bleeding or discharge. Orotracheally intubated NECK: Trachea midline. No JVD. CARDIOVASCULAR: Regular rate and rhythm. No murmur RESPIRATORY: B/l equal air entry. Few coarse rhonchi GASTROINTESTINAL: Abdomen soft, non-tender, slightly distended. MUSCULOSKELETAL: Trace extremity edema. No obvious deformities. NEUROLOGICAL: Intubated and sedated. No spontaneous eye opening. RASS -1. Assessment and Plan - Assessment and Plan Plan: 1. Altered mental status/toxic metabolic encephalopathy secondary to elevated ammonia and delirium tremens. 2. Acute respiratory failure, MRSA in sputum 3. Cirrhosis of the liver secondary to ETOH abuse, Hepatic encephalopathy 4. 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 5. Hypertension. 6. Diabetes mellitus hemoglobin A1c 6.0. 7. Ongoing abuse/EtOH 8. History of cannabinoids use 9. Hypoalbuminemia 10. Esophageal varices status post banding by GI 11. Elevated BMI Neuro/Psych: Currently on Versed/fentanyl/Diprivan drips for sedation/analgesia while intubated, may need to switch to precedex tomorrow as patient should be nearing the end of DTs at this point Daily sedation vacation Continue lactulose and rifaximin, trend ammonia (67 today) CT brain 01/20: No acute intracranial findings CV: Monitor HR and BP keep MAP>65mmHg Continue amlodipine 5 mg daily, hold lisinopril due to elevated creat (see below ) Continue propranolol 20 mg twice daily As needed clonidine 0.1 mg every 6 hours Continue pravastatin 40 mg daily for hyperlipidemia Resp: PRVC 16/03/15/39, ventilator bundle Albuterol/ipratropium aerosols every 4 hours with albuterol aerosols every 2 hours as needed dyspnea. Spontaneous breathing trials as tolerated GI: Status post EGD on 01/16/2018 which showed grade 2 esophageal varices, status post banding x4. Abdominal ultrasound on 01/15/2018 showed no evidence of significant ascites. On tube feeds-Glucerna 1.5 with goal rate 50 ml/hr Pantoprazole 40 m IV twice daily for GI prophylaxis On lactulose 30 cc QID and Xifaxan 550 mg twice daily. Ammonia level 67. : Monitor renal function, electrolytes replacement per protocol. Electrolyte replacement per protocol Endo: Sliding scale insulin with Accu-Cheks every 6 hours to maintain euglycemia Hemoglobin A1c was 6.0 Heme: Monitor CBC No indication for transfusion of blood products at this time-- patient is also listed as a [facility] on chart, will need to discuss with next of kin if he does require transfusion at some point ID: Continue Zach Bauer, now on day #3, anticipate treating for 1 week-10 days total Sputum cx 01/19: MRSA Blood cultures negative to date Access -Utilize peripheral IV. Prophylaxis -GI-pantoprazole - DVT SCD/ lovenox - 01/19 Doppler US RUE: Positive for nonocclusive deep venous thrombosis in the right mid brachial vein. Counseling/ Coordination of Care: This patient is critically ill with impairment of one or more vital organ systems with a high probability of imminent or life-threatening deterioration. High-complexity medical decision making was required to support vital organ function and/ or prevent deterioration in the patient's condition. Total critical care time spent is 35 minutes giving full attention to this patient. This includes examining the patient, gathering history from someone other than the patient (i.e. chart review), discussing the patient's care with other providers, managing the patient's blood pressure and ventilator settings, ordering and interpreting radiologic studies, ordering and interpreting laboratory values, managing the patient's sedation requirements, re-evaluation at frequent intervals, and documentation. Amount of time is separate from teaching, counseling the patient and/or family, and exclusive of procedures. To help prompt me to consider important information that might be impacting today's encounter and assessment, information from prior notes written by myself or my colleagues may have been "brought forward" into today's note. My signature on this note, however, is an attestation that I personally performed the exam, history, and/or decision-making noted today, and, unless otherwise indicated, the interactions with patient, family, and staff as well as the review of records all occurred today. I also attest that the listed assessment and stated plan reflect my best clinical judgment today based on the combination of historical information, prior notes, and today's exam/ interactions. Code Status: Full
--- NOTE | 2018-01-24 13:03 | P.PNFP ---
Subjective Interval history: Patient resting in bedroom when team went to assessment. No acute events overnight. Patient not arousable with touch or auditory stimulation. Patient continues to be on PEEP and intubated. Continues to require multiple sedative medications. BP ranging 80-90s/50-60s <Mele Recinos D - 01/24/18 13:53> Results - Labs Result diagrams: 01/25/18 03:52 01/25/18 03:52 <Kusum Weiss R - 01/25/18 10:01> Abnormal lab results 01/24/18 01/24/18 01/24/18 Range/Units 10:15 12:22 12:22 RBC 4.05 L (4.50-5.90) mil/mm3 Hgb 10.4 L (13.0-17.0) gm/dL Hct 31.6 L (39.0-51.0) % MCV 78.2 L (80.0-100.0) fL MCH 25.8 L (27.0-34.0) pg RDW 18.3 H (11.6-17.2) % Plt Count 65 L D (150-450) th/mm3 Neut % (Auto) (16.0-70.0) % Lymph % (Auto) 5.7 L (9.0-44.0) % [place] % (Auto) 24.0 H (0.0-8.0) % Lymph # (Auto) 0.4 L (1.0-4.8) th/mm3 [place] # (Auto) 1.8 H (0.0-0.9) th/mm3 Band Neuts % (Manual) (0-6) % Lymphocytes % (Manual) (9-44) % Monocytes % (Manual) (0-8) % Platelet Estimate Low L (Normal) Chloride 110 H (98-107) meq/L Carbon Dioxide (21.0-32.0) meq/L Creatinine 2.18 H (0.60-1.30) mg/dL Estimated GFR 32 L (>89) mL/min POC Glucose (68-110) mg/dl Random Glucose 124 H (74-106) mg/dL Calcium 7.8 L (8.5-10.1) mg/dL Total Bilirubin 1.1 H (0.2-1.0) mg/dL AST (15-37) U/L Alkaline Phosphatase 153 H (45-117) U/L Ammonia 67 H (11-32) mcmol/L Albumin 2.3 L (3.4-5.0) g/dL 01/24/18 01/25/18 01/25/18 Range/Units 18:01 03:52 03:52 RBC 4.05 L (4.50-5.90) mil/mm3 Hgb 10.3 L (13.0-17.0) gm/dL Hct 31.9 L (39.0-51.0) % MCV 78.7 L (80.0-100.0) fL MCH 25.3 L (27.0-34.0) pg RDW 18.2 H (11.6-17.2) % Plt Count 62 L (150-450) th/mm3 Neut % (Auto) 72.6 H (16.0-70.0) % Lymph % (Auto) 6.4 L (9.0-44.0) % [place] % (Auto) 18.3 H (0.0-8.0) % Lymph # (Auto) 0.5 L (1.0-4.8) th/mm3 [place] # (Auto) 1.5 H (0.0-0.9) th/mm3 Band Neuts % (Manual) 14 H (0-6) % Lymphocytes % (Manual) 5 L (9-44) % Monocytes % (Manual) 18 H (0-8) % Platelet Estimate Low L (Normal) Chloride 110 H (98-107) meq/L Carbon Dioxide 20.8 L (21.0-32.0) meq/L Creatinine 2.39 H (0.60-1.30) mg/dL Estimated GFR 29 L (>89) mL/min POC Glucose 111 H (68-110) mg/dl Random Glucose 136 H (74-106) mg/dL Calcium 7.8 L (8.5-10.1) mg/dL Total Bilirubin 1.1 H (0.2-1.0) mg/dL AST 42 H (15-37) U/L Alkaline Phosphatase 148 H (45-117) U/L Ammonia (11-32) mcmol/L Albumin 2.1 L (3.4-5.0) g/dL 01/25/18 01/25/18 Range/Units 04:32 05:32 RBC (4.50-5.90) mil/mm3 Hgb (13.0-17.0) gm/dL Hct (39.0-51.0) % MCV (80.0-100.0) fL MCH (27.0-34.0) pg RDW (11.6-17.2) % Plt Count (150-450) th/mm3 Neut % (Auto) (16.0-70.0) % Lymph % (Auto) (9.0-44.0) % [place] % (Auto) (0.0-8.0) % Lymph # (Auto) (1.0-4.8) th/mm3 [place] # (Auto) (0.0-0.9) th/mm3 Band Neuts % (Manual) (0-6) % Lymphocytes % (Manual) (9-44) % Monocytes % (Manual) (0-8) % Platelet Estimate (Normal) Chloride (98-107) meq/L Carbon Dioxide (21.0-32.0) meq/L Creatinine (0.60-1.30) mg/dL Estimated GFR (>89) mL/min POC Glucose 141 H (68-110) mg/dl Random Glucose (74-106) mg/dL Calcium (8.5-10.1) mg/dL Total Bilirubin (0.2-1.0) mg/dL AST (15-37) U/L Alkaline Phosphatase (45-117) U/L Ammonia 82 H (11-32) mcmol/L Albumin (3.4-5.0) g/dL Short CBC 01/24/18 01/25/18 Range/Units 12:22 03:52 WBC 7.5 8.0 (4.0-11.0) th/mm3 Hgb 10.4 L 10.3 L (13.0-17.0) gm/dL Hct 31.6 L 31.9 L (39.0-51.0) % Plt Count 65 L D 62 L (150-450) th/mm3 BMP 01/24/18 01/25/18 12:22 03:52 Sodium 143 143 Potassium 3.9 3.6 Chloride 110 H 110 H Carbon Dioxide 22.7 20.8 L BUN 13 18 Creatinine 2.18 H 2.39 H Calcium 7.8 L 7.8 L Liver Function 01/24/18 01/25/18 Range/Units 12:22 03:52 Total Bilirubin 1.1 H 1.1 H (0.2-1.0) mg/dL AST 29 42 H (15-37) U/L ALT 14 14 (12-78) U/L Alkaline Phosphatase 153 H 148 H (45-117) U/L Albumin 2.3 L 2.1 L (3.4-5.0) g/dL <Kusum Weiss R - 01/25/18 10:01> Abnormal lab results 01/24/18 01/24/18 01/24/18 Range/Units 04:35 08:43 10:15 RBC (4.50-5.90) mil/mm3 Hgb (13.0-17.0) gm/dL Hct (39.0-51.0) % MCV (80.0-100.0) fL MCH (27.0-34.0) pg RDW (11.6-17.2) % Plt Count (150-450) th/mm3 Lymph % (Auto) (9.0-44.0) % [place] % (Auto) (0.0-8.0) % Lymph # (Auto) (1.0-4.8) th/mm3 [place] # (Auto) (0.0-0.9) th/mm3 Platelet Estimate (Normal) Chloride (98-107) meq/L Creatinine (0.60-1.30) mg/dL Estimated GFR (>89) mL/min POC Glucose 117 H 118 H (68-110) mg/dl Random Glucose (74-106) mg/dL Calcium (8.5-10.1) mg/dL Total Bilirubin (0.2-1.0) mg/dL Alkaline Phosphatase (45-117) U/L Ammonia 67 H (11-32) mcmol/L Albumin (3.4-5.0) g/dL 01/24/18 01/24/18 Range/Units 12:22 12:22 RBC 4.05 L (4.50-5.90) mil/mm3 Hgb 10.4 L (13.0-17.0) gm/dL Hct 31.6 L (39.0-51.0) % MCV 78.2 L (80.0-100.0) fL MCH 25.8 L (27.0-34.0) pg RDW 18.3 H (11.6-17.2) % Plt Count 65 L D (150-450) th/mm3 Lymph % (Auto) 5.7 L (9.0-44.0) % [place] % (Auto) 24.0 H (0.0-8.0) % Lymph # (Auto) 0.4 L (1.0-4.8) th/mm3 [place] # (Auto) 1.8 H (0.0-0.9) th/mm3 Platelet Estimate Low L (Normal) Chloride 110 H (98-107) meq/L Creatinine 2.18 H (0.60-1.30) mg/dL Estimated GFR 32 L (>89) mL/min POC Glucose (68-110) mg/dl Random Glucose 124 H (74-106) mg/dL Calcium 7.8 L (8.5-10.1) mg/dL Total Bilirubin 1.1 H (0.2-1.0) mg/dL Alkaline Phosphatase 153 H (45-117) U/L Ammonia (11-32) mcmol/L Albumin 2.3 L (3.4-5.0) g/dL Short CBC 01/24/18 Range/Units 12:22 WBC 7.5 (4.0-11.0) th/mm3 Hgb 10.4 L (13.0-17.0) gm/dL Hct 31.6 L (39.0-51.0) % Plt Count 65 L D (150-450) th/mm3 BMP 01/24/18 12:22 Sodium 143 Potassium 3.9 Chloride 110 H Carbon Dioxide 22.7 BUN 13 Creatinine 2.18 H Calcium 7.8 L Liver Function 01/24/18 Range/Units 12:22 Total Bilirubin 1.1 H (0.2-1.0) mg/dL AST 29 (15-37) U/L ALT 14 (12-78) U/L Alkaline Phosphatase 153 H (45-117) U/L Albumin 2.3 L (3.4-5.0) g/dL <Mele Recinos D - 01/24/18 13:03> Physical Exam Vital signs: Vital Signs 01/24/18 10:30 01/24/18 11:00 01/24/18 11:30 Temperature Pulse Rate 80 80 79 Respiratory Rate 16 16 16 Blood Pressure 84/54 L 85/56 L 84/56 L Pulse Oximetry 97 96 97 01/24/18 12:00 01/24/18 12:21 01/24/18 12:35 Temperature Pulse Rate 80 78 76 Respiratory Rate 16 16 16 Blood Pressure 75/50 L 79/53 L 79/52 L Pulse Oximetry 94 L 97 99 01/24/18 12:37 01/24/18 13:00 01/24/18 13:02 Temperature Pulse Rate 77 75 76 Respiratory Rate 16 16 16 Blood Pressure 80/51 L 75/50 L Pulse Oximetry 98 100 100 01/24/18 13:07 01/24/18 13:08 01/24/18 14:00 Temperature Pulse Rate 76 74 83 Respiratory Rate 16 16 16 Blood Pressure 78/53 L 85/54 L Pulse Oximetry 100 100 100 01/24/18 15:00 01/24/18 15:41 01/24/18 16:00 Temperature 100.0 F H Pulse Rate 82 81 Respiratory Rate 16 16 16 Blood Pressure Pulse Oximetry 100 100 100 01/24/18 17:00 01/24/18 18:00 01/24/18 18:44 Temperature Pulse Rate 83 82 84 Respiratory Rate 19 20 19 Blood Pressure 106/64 Pulse Oximetry 100 100 100 01/24/18 19:00 01/24/18 19:56 01/24/18 20:00 Temperature Pulse Rate 84 79 84 Respiratory Rate 18 22 16 Blood Pressure 98/63 L Pulse Oximetry 100 100 100 01/24/18 20:43 01/24/18 21:00 01/24/18 21:30 Temperature Pulse Rate 80 82 83 Respiratory Rate 18 15 14 Blood Pressure 101/64 96/59 L Pulse Oximetry 100 100 100 01/24/18 22:00 01/24/18 22:30 01/24/18 23:00 Temperature Pulse Rate 82 85 85 Respiratory Rate 15 16 15 Blood Pressure 103/63 98/59 L 101/65 Pulse Oximetry 100 99 100 01/24/18 23:07 01/24/18 23:30 01/25/18 00:00 Temperature Pulse Rate 93 H 83 81 Respiratory Rate 18 16 17 Blood Pressure 100/63 99/61 L Pulse Oximetry 100 100 01/25/18 00:26 01/25/18 00:30 01/25/18 01:00 Temperature Pulse Rate 84 103 H Respiratory Rate 22 19 15 Blood Pressure 109/67 119/83 Pulse Oximetry 100 100 98 01/25/18 01:30 01/25/18 02:00 01/25/18 02:07 Temperature 101.1 F H Pulse Rate 98 H 91 H 91 H Respiratory Rate 16 16 16 Blood Pressure 107/63 88/54 L 91/54 L Pulse Oximetry 97 93 L 94 L 01/25/18 02:30 01/25/18 03:00 01/25/18 03:23 Temperature Pulse Rate 88 85 82 Respiratory Rate 16 16 20 Blood Pressure 85/52 L 87/59 L Pulse Oximetry 94 L 95 97 01/25/18 03:30 01/25/18 04:00 01/25/18 07:00 Temperature 98.8 F Pulse Rate 82 80 87 Respiratory Rate 14 15 19 Blood Pressure 118/67 116/67 Pulse Oximetry 97 97 01/25/18 08:00 Temperature Pulse Rate Respiratory Rate 18 Blood Pressure Pulse Oximetry 99 Intake & Output 01/24/18 01/25/18 01/25/18 18:59 06:59 18:59 Intake Total 1097.5 / 1097.5 840 / 840 Output Total 900 / 900 1300 / 1300 Balance 197.5 / 197.5 -460 / -460 Intake: IV 767.5 / 767.5 350 / 350 Versed Inj 50 mg In 50 ml @ 2 50 / 50 50 / 50 MG/HR 2 mls/hr IV.CONT TITRATE PRN Rx#:[id number] Diprivan 1000 mg/100 ml Inj 1, 100 / 100 000 mg In 100 ml @ 5 MCG/KG/MIN 2.994 mls/hr IV.CONT TITRATE PRN Rx#:[id number] Zosyn 4.5 GM Premix 4.5 gm In 100 / 100 300 / 300 100 ml @ 200 mls/hr IV.SIG Q6H MANUEL Rx#:[id number] Tube Feeding 330 / 330 240 / 240 Water Bolus Amount 250 / 250 Output: Urine Amount (Catheter) 900 / 900 1300 / 1300 Straight 900 / 900 1300 / 1300 Other: Date of Last Bowel Movement 11/14/18 11/14/18 # Incontinent Bowel Movements 1 <Oslos,Kusum R - 01/25/18 10:01> Vital Signs 01/23/18 16:00 01/23/18 16:39 01/23/18 20:00 Temperature 99.7 F H 99.5 F Pulse Rate 89 94 H 96 H Respiratory Rate 16 20 17 Blood Pressure 113/76 121/78 Pulse Oximetry 99 96 99 01/23/18 20:11 01/23/18 20:13 01/23/18 22:30 Temperature Pulse Rate 94 H 86 Respiratory Rate 18 20 16 Blood Pressure Pulse Oximetry 99 99 01/23/18 23:00 01/23/18 23:30 01/24/18 00:00 Temperature 99.3 F Pulse Rate 82 81 82 Respiratory Rate 16 15 15 Blood Pressure 98/60 L 98/59 L 106/67 Pulse Oximetry 100 100 99 01/24/18 00:17 01/24/18 00:18 01/24/18 00:30 Temperature Pulse Rate 85 85 Respiratory Rate 21 20 14 Blood Pressure 109/65 Pulse Oximetry 100 100 01/24/18 01:00 01/24/18 01:30 01/24/18 02:00 Temperature Pulse Rate 90 85 86 Respiratory Rate 14 17 14 Blood Pressure 114/72 101/59 L 105/66 Pulse Oximetry 100 100 100 01/24/18 02:30 01/24/18 03:00 01/24/18 03:30 Temperature Pulse Rate 88 86 89 Respiratory Rate 16 15 18 Blood Pressure 113/71 112/66 103/69 Pulse Oximetry 100 100 100 01/24/18 03:32 01/24/18 04:00 01/24/18 04:30 Temperature 99 F Pulse Rate 89 89 87 Respiratory Rate 21 16 16 Blood Pressure 98/60 L 90/55 L Pulse Oximetry 100 100 97 01/24/18 05:00 01/24/18 05:36 01/24/18 06:00 Temperature Pulse Rate 85 96 H 102 H Respiratory Rate 16 18 22 Blood Pressure 96/62 L 125/71 Pulse Oximetry 98 100 100 01/24/18 06:01 01/24/18 06:31 01/24/18 07:00 Temperature Pulse Rate 103 H 93 H 87 Respiratory Rate 23 38 H 16 Blood Pressure 152/90 H 90/54 L 83/50 L Pulse Oximetry 97 96 97 01/24/18 07:30 01/24/18 08:00 01/24/18 08:30 Temperature Pulse Rate 87 84 84 Respiratory Rate 16 16 16 Blood Pressure 85/53 L 80/53 L 82/53 L Pulse Oximetry 95 98 96 01/24/18 09:00 01/24/18 09:30 01/24/18 10:00 Temperature Pulse Rate 84 81 82 Respiratory Rate 16 16 16 Blood Pressure 86/52 L 83/53 L 86/51 L Pulse Oximetry 98 97 95 01/24/18 10:30 01/24/18 11:00 01/24/18 12:00 Temperature Pulse Rate 80 79 Respiratory Rate 16 16 16 Blood Pressure 84/54 L Pulse Oximetry 97 98 Intake & Output 01/23/18 01/24/18 01/24/18 18:59 06:59 18:59 Intake Total 1822.5 / 1822.5 1339.5 / 1339.5 Output Total 500 / 500 1150 / 1150 Balance 1322.5 / 1322.5 189.5 / 189.5 Weight 100 kg Intake: IV 1632.5 / 1632.5 1117.5 / 1117.5 Versed Inj 50 mg In 50 ml @ 2 50 / 50 50 / 50 MG/HR 2 mls/hr IV.CONT TITRATE PRN Rx#:[id number] Diprivan 1000 mg/100 ml Inj 1, 100 / 100 100 / 100 000 mg In 100 ml @ 5 MCG/KG/MIN 2.994 mls/hr IV.CONT TITRATE PRN Rx#:[id number] Zosyn 4.5 GM Premix 4.5 gm In 200 / 200 200 / 200 100 ml @ 200 mls/hr IV.SIG Q6H MANUEL Rx#:[id number] Vancomycin Inj 1,000 MG In NS 250 / 250 Inj 250 ML @ 250 mls/hr IV.SIG Q8H MANUEL Rx#:[id number] Vancomycin Inj 1,750 MG In NS 1032.5 / 1032.5 517.5 / 517.5 Inj 500 ML @ 250 mls/hr IV.SIG Q12H MANUEL Rx#:[id number] fentaNYL 10 mcg/mL Premix Drip 250 / 250 2,500 mcg In 250 ml @ 50 MCG/HR 5 mls/hr IV.SIG TITRATE PRN Rx #:[id number] Oral 0 / 0 Tube Feeding 130 / 130 222 / 222 Tube Irrigant 60 / 60 Output: Stool 0 / 0 Urine/Stool Mix 0 / 0 Urine Amount (Catheter) 500 / 500 1150 / 1150 Straight 500 / 500 1150 / 1150 Other: Date of Last Bowel Movement 01/22/18 01/22/18 01/22/18 # Bowel Movements 0 # Incontinent Bowel Movements 0 <Mele Recinos D - 01/24/18 13:03> Narrative: GENERAL: 52-year-old male currently orotracheally intubated SKIN: Warm and dry. No petechia or rash HEAD: Atraumatic. Normocephalic. ENT: No nasal bleeding or discharge. Orotracheally intubated large amount of ET tube secretions NECK: Trachea midline. No JVD. CARDIOVASCULAR: Regular rate and rhythm. S1, S2 no S4. No murmur RESPIRATORY: B/l equa air entry. Few coarse rhonchi GASTROINTESTINAL: Abdomen soft, non-tender, slightly distended. MUSCULOSKELETAL: Extremities without clubbing, cyanosis, or edema. No obvious deformities. +2 PD pulses BL NEUROLOGICAL: Intubated and sedated. On sedation lightening spontaneously moves lower extremities no movements noted on the upper extremities. No spontaneous eye opening <Mele Recinos - 01/24/18 13:53> - Urinary Catheter Management 400 Cath placed during this visit: no <Kusum Weiss R - 01/25/18 10:01> no <Mele Recinos D - 01/24/18 14:23> Straight Cath placed during this visit: no <JoseKusum white R - 01/25/18 10:01> no <Mele Recinos D - 01/24/18 14:23> Assessment and Plan - Assessment (1) Alcohol withdrawal Code(s): F10.239 - Alcohol dependence with withdrawal, unspecified Status: Acute (2) Abdominal pain Code(s): R10.9 - Unspecified abdominal pain Status: Acute (3) Esophageal varices in cirrhosis Code(s): K74.60 - Unspecified cirrhosis of liver; I85.10 - Secondary esophageal varices without bleeding Status: Chronic (4) Hypertension Code(s): I10 - Essential (primary) hypertension Status: Chronic (5) Alcohol abuse Code(s): F10.10 - Alcohol abuse, uncomplicated Status: Chronic (6) Depression with anxiety Code(s): F41.8 - Other specified anxiety disorders Status: Chronic (7) Cough Code(s): R05 - Cough Status: Acute (8) Diabetes Code(s): E11.9 - Type 2 diabetes mellitus without complications Status: Chronic (9) Deep vein thrombosis (DVT) of brachial vein Code(s): I82.629 - Acute embolism and thrombosis of deep veins of unspecified upper extremity Status: Acute (10) Nutrition, metabolism, and development symptoms Code(s): R63.8 - Other symptoms and signs concerning food and fluid intake Status: Acute <AmilcarlorenzoKusum R - 01/25/18 10:01> (1) Alcohol withdrawal Code(s): F10.239 - Alcohol dependence with withdrawal, unspecified Status: Acute Plan: Patient with extensive alcohol abuse history for the past 30 years complicated by cirrhosis and esophageal variceal GI bleed. Currently receiving treatment for alcoholism at [facility] since July of this year. Reports he is taking a medication to help with his alcoholism however he has not been compliant and has been drinking at least 2 beers per day. Presented to the ED with severe abdominal pain, vomiting and nausea. Continue with CIWA protocol Patient with worsening with alcohol withdrawal symptoms and was transferred to critical care on 01/18. [employer] consulted, appreciate recommendations Patient placed on Precedex drip on 01/18 Patient placed n.p.o. c/w IV fluids D5NS 50 mL/hr Continue to monitor vital signs, continue to monitor ammonia and cmp Patient intubated on 01/19; Current PRVC peep 5 FiO2 40%; failed CPAP trial Currently on fentanyl 15 mL/hr and propofol 15 mL/h drips for sedation/ analgesia while intubated. Also on Versed 5 Continue vitamin bag daily times [address] brain: No acute abnormalities Ammonia level elevated at 70-> 81->98->72->59->56; today at 67 Lactulose increased from daily to 4 times daily Rifaximin 550 BID monitor ammonia levels (2) Abdominal pain Code(s): R10.9 - Unspecified abdominal pain Status: Acute Plan: Patient is a 52-year-old male with past medical history of alcoholism, cirrhosis and esophageal variceal GI bleed who presented to the ED with complaint of umbilical abdominal pain, nausea, and vomiting for the past 2 days. Patient reports tooth extraction 2 days prior to admission and malaise ( abdominal pain, vomiting x10 times with questionable blood in vomit which he attributes to tooth extraction however due to patient's history of upper GI bleed due to esophageal varices will consult GI for further evaluation). On admission patient was slightly hypertensive however he was afebrile and no leukocytosis appreciated on CBC. CT abdomen: Showing edema of mesenteric, small metallic object in the transverse colon (which may have been part of patient's dental filling) and cirrhosis with portal hypertension and significant esophageal varices. Zofran for nausea Pain controlled with hydromorphone PRN which patient has had in the past without any adverse reactions; on hold Protonix IV twice daily Cipro for prophylaxis; discontinued 01/22 octreotide drip 25 mcg/h GI consulted for further recommendations, -Protonix, prophylactic antibiotic and octreotide drip -H&H stable and abdominal ultrasound negative for ascites -EGD procedure 01/16 showed: Esophageal varices grade 2 status post 4 band applied, biopsies taken from gastric antrum. Repeat EGD in 2 months. -vocal cord mass noted on intubation and ENT was consulted for further evaluation. -non-selective beta deena and follow up outpatient in two weeks. - GI has signed off ENT consulted Normal evaluation of vocal cords with laryngoscope neck CT no abnormal findings, no evidence of laryngeal lesion -will assess as needed (3) Esophageal varices in cirrhosis Code(s): K74.60 - Unspecified cirrhosis of liver; I85.10 - Secondary esophageal varices without bleeding Status: Chronic Plan: See plan above for abdominal pain (4) Hypertension Code(s): I10 - Essential (primary) hypertension Status: Chronic Plan: Resume home medications Clonidine PRN Continue to monitor blood pressure. (5) Alcohol abuse Code(s): F10.10 - Alcohol abuse, uncomplicated Status: Chronic Plan: See alcohol withdrawal plan above (6) Depression with anxiety Code(s): F41.8 - Other specified anxiety disorders Status: Chronic Plan: Resume home medications (7) Cough Code(s): R05 - Cough Status: Acute Plan: Patient with history of chronic cough and wheezing. -GI saw abnormal vocal cords for EGD so consulted Pulmonology and ENT -Pulmonology: recommended aerosol treatment and tessalon 200 mg TID and smoking cessation. Recommended follow up pulmonary function studies once acute illness treated. -ENT: CT neck was negative. No mass visualized with laryngoscopy. Can follow up OP for post nasal drip -Sputum culture: MRSA -Started on vancomycin and zosyn -BCX NG to-date -Chest x-ray: Support equipment in good position. Small areas of atelectasis in both lung bases. (8) Diabetes Code(s): E11.9 - Type 2 diabetes mellitus without complications Status: Chronic Plan: Sliding scale insulin low Accu-Cheks Hypoglycemia protocol (9) Deep vein thrombosis (DVT) of brachial vein Code(s): I82.629 - Acute embolism and thrombosis of deep veins of unspecified upper extremity Status: Acute Plan: 1111 venous Doppler study: DVT of right mid brachial vein Anticoagulation therapy complicated given possible GI bleed -will follow critical care recommendations of Lovenox 40 (10) Nutrition, metabolism, and development symptoms Code(s): R63.8 - Other symptoms and signs concerning food and fluid intake Status: Acute Plan: Electrolytes: Replete as needed Diet: tube feeds ( Glucerna 1.5) DVT prophylaxis: lovenox 40 <Mele Recinos D - 01/24/18 14:12> - Attending Attestation The assessment and plan was discussed with the resident physician and I am in agreement with continued medical care as documented in this encounter. KUSUM WEISS MD <Kusum Weiss - 01/25/18 10:01>
[2018-01-24] MEDS: Vancomycin Inj 1,750 MG in Sodium Chlor 0.9% Inj 500 ML IV.SIG SCH (13:35)
[2018-01-24] MEDS: Multivit/Folic Acid/Minerals Chewable Tablets CHEW SCH (17:40)
--- NOTE | 2018-01-24 17:58 | P.PNPL ---
Subjective Interval history: 52 YO male with GIB, cirrhosis Developed resp distress, agitation Remains Intubated Sedated with Fentanyl, diprivan and Versed Ammonia level 67 Physical Exam Vital signs: Vital Signs 01/23/18 20:00 01/23/18 20:11 01/23/18 20:13 Temperature 99.5 F Pulse Rate 96 H 94 H Respiratory Rate 17 18 20 Blood Pressure 121/78 Pulse Oximetry 99 99 01/23/18 22:30 01/23/18 23:00 01/23/18 23:30 Temperature Pulse Rate 86 82 81 Respiratory Rate 16 16 15 Blood Pressure 98/60 L 98/59 L Pulse Oximetry 99 100 100 01/24/18 00:00 01/24/18 00:17 01/24/18 00:18 Temperature 99.3 F Pulse Rate 82 85 Respiratory Rate 15 21 20 Blood Pressure 106/67 Pulse Oximetry 99 100 01/24/18 00:30 01/24/18 01:00 01/24/18 01:30 Temperature Pulse Rate 85 90 85 Respiratory Rate 14 14 17 Blood Pressure 109/65 114/72 101/59 L Pulse Oximetry 100 100 100 01/24/18 02:00 01/24/18 02:30 01/24/18 03:00 Temperature Pulse Rate 86 88 86 Respiratory Rate 14 16 15 Blood Pressure 105/66 113/71 112/66 Pulse Oximetry 100 100 100 01/24/18 03:30 01/24/18 03:32 01/24/18 04:00 Temperature 99 F Pulse Rate 89 89 89 Respiratory Rate 18 21 16 Blood Pressure 103/69 98/60 L Pulse Oximetry 100 100 100 01/24/18 04:30 01/24/18 05:00 01/24/18 05:36 Temperature Pulse Rate 87 85 96 H Respiratory Rate 16 16 18 Blood Pressure 90/55 L 96/62 L 125/71 Pulse Oximetry 97 98 100 01/24/18 06:00 01/24/18 06:01 01/24/18 06:31 Temperature Pulse Rate 102 H 103 H 93 H Respiratory Rate 22 23 38 H Blood Pressure 152/90 H 90/54 L Pulse Oximetry 100 97 96 01/24/18 07:00 01/24/18 07:30 01/24/18 08:00 Temperature Pulse Rate 87 87 84 Respiratory Rate 16 16 16 Blood Pressure 83/50 L 85/53 L 80/53 L Pulse Oximetry 97 95 98 01/24/18 08:30 01/24/18 09:00 01/24/18 09:30 Temperature Pulse Rate 84 84 81 Respiratory Rate 16 16 16 Blood Pressure 82/53 L 86/52 L 83/53 L Pulse Oximetry 96 98 97 01/24/18 10:00 01/24/18 10:30 01/24/18 11:00 Temperature Pulse Rate 82 80 80 Respiratory Rate 16 16 16 Blood Pressure 86/51 L 84/54 L 85/56 L Pulse Oximetry 95 97 96 01/24/18 11:30 01/24/18 12:00 01/24/18 12:21 Temperature Pulse Rate 79 80 78 Respiratory Rate 16 16 16 Blood Pressure 84/56 L 75/50 L 79/53 L Pulse Oximetry 97 94 L 97 01/24/18 12:35 01/24/18 12:37 01/24/18 13:00 Temperature Pulse Rate 76 77 75 Respiratory Rate 16 16 16 Blood Pressure 79/52 L 80/51 L Pulse Oximetry 99 98 100 01/24/18 13:02 01/24/18 13:07 01/24/18 13:08 Temperature Pulse Rate 76 76 74 Respiratory Rate 16 16 16 Blood Pressure 75/50 L 78/53 L 85/54 L Pulse Oximetry 100 100 100 01/24/18 14:00 01/24/18 15:00 01/24/18 15:41 Temperature Pulse Rate 83 81 Respiratory Rate 16 16 16 Blood Pressure Pulse Oximetry 100 100 Intake & Output 01/23/18 01/24/18 01/24/18 18:59 06:59 18:59 Intake Total 1822.5 / 1822.5 1339.5 / 1339.5 250 / 250 Output Total 500 / 500 1150 / 1150 Balance 1322.5 / 1322.5 189.5 / 189.5 250 / 250 Weight 100 kg Intake: IV 1632.5 / 1632.5 1117.5 / 1117.5 250 / 250 Versed Inj 50 mg In 50 ml @ 2 50 / 50 50 / 50 50 / 50 MG/HR 2 mls/hr IV.CONT TITRATE PRN Rx#:[id number] Diprivan 1000 mg/100 ml Inj 1, 100 / 100 100 / 100 100 / 100 000 mg In 100 ml @ 5 MCG/KG/MIN 2.994 mls/hr IV.CONT TITRATE PRN Rx#:[id number] Zosyn 4.5 GM Premix 4.5 gm In 200 / 200 200 / 200 100 / 100 100 ml @ 200 mls/hr IV.SIG Q6H [facility] Rx#:[id number] Vancomycin Inj 1,000 MG In NS 250 / 250 Inj 250 ML @ 250 mls/hr IV.SIG Q8H [facility] Rx#:[id number] Vancomycin Inj 1,750 MG In NS 1032.5 / 1032.5 517.5 / 517.5 Inj 500 ML @ 250 mls/hr IV.SIG Q12H [facility] Rx#:[id number] fentaNYL 10 mcg/mL Premix Drip 250 / 250 2,500 mcg In 250 ml @ 50 MCG/HR 5 mls/hr IV.SIG TITRATE PRN Rx #:[id number] Oral 0 / 0 Tube Feeding 130 / 130 222 / 222 Tube Irrigant 60 / 60 Output: Stool 0 / 0 Urine/Stool Mix 0 / 0 Urine Amount (Catheter) 500 / 500 1150 / 1150 Straight 500 / 500 1150 / 1150 Other: Date of Last Bowel Movement 01/22/18 01/22/18 01/22/18 # Bowel Movements 0 # Incontinent Bowel Movements 0 GENERAL: WBWn, on vent Gets agitated on weanng sedation SKIN: Warm and dry. HEAD: Normocephalic. EYES: No scleral icterus. No injection or drainage. NECK: Supple, trachea midline. No JVD or lymphadenopathy. CARDIOVASCULAR: Regular rate and rhythm without murmurs, gallops, or rubs. RESPIRATORY: Breath sounds equal bilaterally. No accessory muscle use. GASTROINTESTINAL: Abdomen soft, non-tender, nondistended. MUSCULOSKELETAL: No cyanosis, or edema. BACK: Nontender without obvious deformity. No CVA tenderness. - Urinary Catheter Management Straight Cath placed during this visit: no 400 Cath placed during this visit: no Assessment and Plan - Plan IMPRESSION: 1. Mild shortness of breath and cough, possibly underlying asthma. 2. Hypertension. 3. Diabetes mellitus. 4. Cirrhosis of the liver. 5. VDRF PLAN: Vent support PRVC AC, Fi02 40% Sedation with Fentanyl, Diprivan And Versed Depakote 500 mg daily haldol prn Daily CPAP trial. Monitor Ammonia level.
[2018-01-24] MEDS: Enoxaparin Inj 40 MG/0.4 ML Syringe SQ SCH (19:05)
[2018-01-25] MEDS: Midazolam 50 MG/50 ML Inj 50 MG/50 ML BAG IV.CONT PRN (01:00)
[2018-01-25] MEDS: Insulin NovoLOG Aspart Correctional Sugar Inj SQ SCH ×5 (01:05→23:11)
[2018-01-25] MEDS: Oral Hygiene Kit OROPHARYNG SCH ×5 (01:05→23:09)
[2018-01-25] MEDS: Piperacil/Tazo 4.5 GM Premix 4.5 GM/100 ML BAG IV.SIG SCH ×4 (03:22→20:47)
[2018-01-25 05:02] LABS: Baso % (Auto) 0.4 % (0.0-2.0); Eos # (Auto) 0.2 th/mm3 (0.0-0.4); Eos % (Auto) 2.3 % (0.0-4.0); Hematocrit 31.9 % (39.0-51.0); Hemoglobin 10.3 gm/dL (13.0-17.0); Lymph # (Auto) 0.5 th/mm3 (1.0-4.8); Lymph % (Auto) 6.4 % (9.0-44.0); Mean Corpuscular HGB Conc 32.2 % (32.0-36.0); Mean Corpuscular Hemoglobin 25.3 pg (27.0-34.0); Mean Corpuscular Volume 78.7 fL (80.0-100.0); Mean Platelet Volume 8.8 fL (7.0-11.0); Mono # (Auto) 1.5 th/mm3 (0.0-0.9); Mono % (Auto) 18.3 % (0.0-8.0); Neut # (Auto) 5.8 th/mm3 (1.8-7.7); Neut % (Auto) 72.6 % (16.0-70.0); Platelet Count 62 th/mm3 (150-450); Red Blood Count 4.05 mil/mm3 (4.50-5.90); Red Cell Distribution Width 18.2 % (11.6-17.2)
[2018-01-25 05:34] LABS: Alanine Aminotransferase 14 U/L (12-78); Albumin 2.1 g/dL (3.4-5.0); Alkaline Phosphatase 148 U/L (45-117); Anion Gap 12 meq/L (5-15); Aspartate Aminotransferase 42 U/L (15-37); Blood Urea Nitrogen 18 mg/dL (7-18); Calcium 7.8 mg/dL (8.5-10.1); Carbon Dioxide 20.8 meq/L (21.0-32.0); Chloride 110 meq/L (98-107); Glomerular Filtration Rate 29 mL/min (>89); Glucose,Random 136 mg/dL (74-106); Magnesium 2.3 mg/dL (1.5-2.5); Potassium 3.6 meq/L (3.5-5.1); Sodium 143 meq/L (136-145); Total Protein 6.4 g/dL (6.4-8.2); Vancomycin,Random 38.2 Comment
[2018-01-25] MEDS: Benzonatate 100 MG Capsule PO SCH ×3 (05:50→20:46)
[2018-01-25] MEDS: Artificial Tears Opth Drops 15 ML Bottle EACH EYE SCH ×3 (05:51→22:11)
[2018-01-25] MEDS ORDERED: Midazolam 100 MG/100 ML Inj 100 MG/100 ML BAG IV.CONT PRN (07:45)
[2018-01-25] MEDS: Pantoprazole Inj 40 MG Vial IV.PUSH SCH ×2 (08:16→20:47)
[2018-01-25] MEDS: Senna/Docusate Sodium 8.6/50 MG Tablet PO SCH ×2 (08:17→20:47)
[2018-01-25] MEDS: rifAXIMin 550 MG Tablet PO SCH ×2 (08:17→20:47)
[2018-01-25] MEDS: Multivit/Folic Acid/Minerals Chewable Tablets CHEW SCH (08:17)
[2018-01-25] MEDS ORDERED: Sod Chloride 0.9% Inj 1,000 ML IV.SIG ONE (08:23)
--- NOTE | 2018-01-25 08:35 | P.PNCC ---
Subjective Subjective Remarks/Hospital Course: The patient is a 52-year-old male with a past medical history of ETOH abuse, cirrhosis of liver secondary to alcohol, hypertension, diabetes mellitus, anxiety, depression, prior history of upper gastrointestinal bleed x2 due to esophageal varices. The patient was admitted under the family medicine team on 01/15/[address] for abdominal pain. A CT scan of the abdomen and pelvis showed a cirrhotic liver with evidence of portal hypertension and prominent gastroesophageal varices. No ascites noted. The patient also underwent an ultrasound of the abdomen, which showed no significant ascites. He was seen by GI service and underwent upper endoscopy on 01/16/2018 which showed grade 2 esophageal varices, status post banding x4, gastritis and hiatal hernia. The patient also had a CT scan of the chest on 01/16/2018 which showed mild infiltrates in the posterior lower lung hussein suggestive of atelectasis and nonspecific 1.5 cm lymph node in the anterior superior mediastinum. He is being followed by Dr. Maki from pulmonary service. Due to altered mental status and possible alcohol withdrawal he was transferred to ICU and critical care medicine was consulted for critical care management. He received Ativan 6-8 mg total along with Haldol and the patient remained restless and agitated. Most of the history was obtained from reviewing medical records as the patient is a poor historian. ABG was performed this morning on room air, which showed a pH of 7.44, CO2 41, PaO2 69, bicarbonate 27, saturation 91%. 01/19: Patient with worsening oxygenation status. Essentially unresponsive obtunded. Ammonia level is 98 this morning. Elective intubation. 01/20 Patient is intubated and sedated, afebrile. 01/21 Patient remains sedated with Fentnayl, Diprivan and Versed. T;100.5, CT brain yesterday no acute findings. 01/22: Remains intubated sedated Versed had been held since a.m. Remains unresponsive failed CPAP trial today due to tachypnea. Spontaneously moves lower extremities no spontaneous eye opening. Large amount of ET tube secretions reported. Sputum cx 01/19 MRSA 01/23: Remains sedated and intubated, some mild dyssynchrony with the vent during my exam. 01/24: Patient gets very agitated during sedation vacations, still requiring propofol/ versed/ fentanyl gtts. Temp is 99F, still diaphoretic on exam. 01/25: BUN/ creat trending up but urine output remains adequate. Patient's home med list includes bumex, will start diuresis today to see if this improves renal function. Of note, his home list also includes Fosrenal and mesalamine but it is unclear from previous records if patient has a h/o CKD or inflammatory bowel disease. Objective Vital Signs / I&O: Vital Signs 01/24/18 08:30 01/24/18 09:00 01/24/18 09:30 Temperature Pulse Rate 84 84 81 Respiratory Rate 16 16 16 Blood Pressure 82/53 L 86/52 L 83/53 L Pulse Oximetry 96 98 97 01/24/18 10:00 01/24/18 10:30 01/24/18 11:00 Temperature Pulse Rate 82 80 80 Respiratory Rate 16 16 16 Blood Pressure 86/51 L 84/54 L 85/56 L Pulse Oximetry 95 97 96 01/24/18 11:30 01/24/18 12:00 01/24/18 12:21 Temperature Pulse Rate 79 80 78 Respiratory Rate 16 16 16 Blood Pressure 84/56 L 75/50 L 79/53 L Pulse Oximetry 97 94 L 97 01/24/18 12:35 01/24/18 12:37 01/24/18 13:00 Temperature Pulse Rate 76 77 75 Respiratory Rate 16 16 16 Blood Pressure 79/52 L 80/51 L Pulse Oximetry 99 98 100 01/24/18 13:02 01/24/18 13:07 01/24/18 13:08 Temperature Pulse Rate 76 76 74 Respiratory Rate 16 16 16 Blood Pressure 75/50 L 78/53 L 85/54 L Pulse Oximetry 100 100 100 01/24/18 14:00 01/24/18 15:00 01/24/18 15:41 Temperature Pulse Rate 83 82 Respiratory Rate 16 16 16 Blood Pressure Pulse Oximetry 100 100 100 01/24/18 16:00 01/24/18 17:00 01/24/18 18:00 Temperature 100.0 F H Pulse Rate 81 83 82 Respiratory Rate 16 19 20 Blood Pressure Pulse Oximetry 100 100 100 01/24/18 18:44 01/24/18 19:00 01/24/18 19:56 Temperature Pulse Rate 84 84 79 Respiratory Rate 19 18 22 Blood Pressure 106/64 Pulse Oximetry 100 100 100 01/24/18 20:00 01/24/18 20:43 01/24/18 21:00 Temperature Pulse Rate 84 80 82 Respiratory Rate 16 18 15 Blood Pressure 98/63 L 101/64 Pulse Oximetry 100 100 100 01/24/18 21:30 01/24/18 22:00 01/24/18 22:30 Temperature Pulse Rate 83 82 85 Respiratory Rate 14 15 16 Blood Pressure 96/59 L 103/63 98/59 L Pulse Oximetry 100 100 99 01/24/18 23:00 01/24/18 23:07 01/24/18 23:30 Temperature Pulse Rate 85 93 H 83 Respiratory Rate 15 18 16 Blood Pressure 101/65 100/63 Pulse Oximetry 100 100 01/25/18 00:00 01/25/18 00:26 01/25/18 00:30 Temperature Pulse Rate 81 84 Respiratory Rate 17 22 19 Blood Pressure 99/61 L 109/67 Pulse Oximetry 100 100 100 01/25/18 01:00 01/25/18 01:30 01/25/18 02:00 Temperature Pulse Rate 103 H 98 H 91 H Respiratory Rate 15 16 16 Blood Pressure 119/83 107/63 88/54 L Pulse Oximetry 98 97 93 L 01/25/18 02:07 01/25/18 02:30 01/25/18 03:00 Temperature 101.1 F H Pulse Rate 91 H 88 85 Respiratory Rate 16 16 16 Blood Pressure 91/54 L 85/52 L 87/59 L Pulse Oximetry 94 L 94 L 95 01/25/18 03:23 01/25/18 03:30 01/25/18 04:00 Temperature 98.8 F Pulse Rate 82 82 80 Respiratory Rate 20 14 15 Blood Pressure 118/67 116/67 Pulse Oximetry 97 97 97 Intake & Output 01/24/18 01/25/18 01/25/18 18:59 06:59 18:59 Intake Total 1097.5 / 1097.5 840 / 840 Output Total 900 / 900 1300 / 1300 Balance 197.5 / 197.5 -460 / -460 Intake: IV 767.5 / 767.5 350 / 350 Versed Inj 50 mg In 50 ml @ 2 50 / 50 50 / 50 MG/HR 2 mls/hr IV.CONT TITRATE PRN Rx#:[id number] Diprivan 1000 mg/100 ml Inj 1, 100 / 100 000 mg In 100 ml @ 5 MCG/KG/MIN 2.994 mls/hr IV.CONT TITRATE PRN Rx#:[id number] Zosyn 4.5 GM Premix 4.5 gm In 100 / 100 300 / 300 100 ml @ 200 mls/hr IV.SIG Q6H [facility] Rx#:[id number] Tube Feeding 330 / 330 240 / 240 Water Bolus Amount 250 / 250 Output: Urine Amount (Catheter) 900 / 900 1300 / 1300 Straight 900 / 900 1300 / 1300 Other: Date of Last Bowel Movement 01/22/18 01/22/18 # Incontinent Bowel Movements 1 Result Diagrams: 01/25/18 03:52 01/25/18 03:52 Objective Remarks: GENERAL: Intubated, sedated SKIN: Warm, diaphoretic. No petechia or rash HEAD: Atraumatic. Normocephalic. EYES: PERRL ENT: Orotracheally intubated NECK: Trachea midline. No JVD. CARDIOVASCULAR: Regular rate and rhythm. No murmur RESPIRATORY: Diminished at bases bilaterally GASTROINTESTINAL: Abdomen soft, non-tender, slightly distended. MUSCULOSKELETAL: 1+ extremity edema. No obvious deformities. NEUROLOGICAL: GCS 5T ([id number]), RASS -1 to -2 Assessment and Plan - Assessment and Plan Plan: 1. Altered mental status/toxic metabolic encephalopathy secondary to elevated ammonia and delirium tremens. 2. Acute respiratory failure, MRSA in sputum 3. Cirrhosis of the liver secondary to ETOH abuse, Hepatic encephalopathy 4. 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 5. Hypertension. 6. Diabetes mellitus hemoglobin A1c 6.0. 7. Ongoing abuse/EtOH 8. History of cannabinoids use 9. Hypoalbuminemia 10. Esophageal varices status post banding by GI 11. Elevated BMI Neuro/Psych: Currently on Versed/fentanyl/propofol drips, propofol is almost off, will d/c and add Precedex to try to wean down versed Daily sedation vacation Continue lactulose and rifaximin, trend ammonia (82 today) CT brain 01/20: No acute intracranial findings CV: Monitor HR and BP keep MAP>65mmHg Hold lisinopril due to elevated creat (see below) Continue amlodipine 5 mg daily, propranolol 20 mg twice daily, PRN clonidine 0.1 mg every 6 hours Continue pravastatin 40 mg daily for hyperlipidemia BP low overnight, may be related to sedation regimen Resp: PRVC 16/550/03/15/39, ventilator bundle Albuterol/ipratropium aerosols every 4 hours with albuterol aerosols every 2 hours as needed dyspnea. Spontaneous breathing trials as tolerated GI: Status post EGD on 01/16/2018 which showed grade 2 esophageal varices, status post banding x4. Abdominal ultrasound on 01/15/2018 showed no evidence of significant ascites. On tube feeds-Glucerna 1.5 with goal rate 50 ml/hr Pantoprazole 40 m IV twice daily for GI prophylaxis On lactulose 30 cc QID and Xifaxan 550 mg twice daily. Ammonia level 80s. Patient did not have a BM yesterday or today, if still no BM after next PO dose will give lactulose enema : Monitor renal function, creat trending up, is apparently on bumex at home, start diuresis today Electrolyte replacement per protocol Endo: Sliding scale insulin with Accu-Cheks every 6 hours to maintain euglycemia Hemoglobin A1c was 6.0 Heme: Monitor CBC No indication for transfusion of blood products at this time-- patient is also listed as a Faith on chart, will need to discuss with next of kin if he does require transfusion at some point ID: Continue Zach Bauer, now on day #4, anticipate treating for 1 week-10 days total Sputum cx 01/19: MRSA Blood cultures negative to date Access -Utilize peripheral IV. Prophylaxis -GI-pantoprazole - DVT SCD/ lovenox - 01/19 Doppler US RUE: Positive for nonocclusive deep venous thrombosis in the right mid brachial vein. Will get follow up scan on Saturday to look for propagation. Level 2 follow up To help prompt me to consider important information that might be impacting today's encounter and assessment, information from prior notes written by myself or my colleagues may have been "brought forward" into today's note. My signature on this note, however, is an attestation that I personally performed the exam, history, and/or decision-making noted today, and, unless otherwise indicated, the interactions with patient, family, and staff as well as the review of records all occurred today. I also attest that the listed assessment and stated plan reflect my best clinical judgment today based on the combination of historical information, prior notes, and today's exam/ interactions. Code Status: Full
[2018-01-25 08:53] LABS: Eosinophils 1 % (0-4); Lymphocytes 5 % (9-44); Metamyelocytes 1 % (0-1); Monocytes 18 % (0-8); Platelet Morphology Normal (Normal)
[2018-01-25] MEDS: Chlorhexidine 0.12% Oral Kit 15 ML UDC OROPHARYNG SCH ×2 (09:57→20:46)
--- NOTE | 2018-01-25 10:19 | P.PNFP ---
Subjective Interval history: Patient sleeping soundly. No acute events overnight. Still on 3 sedative drips. <Irma Zhang C - 01/25/18 10:19> Results - Labs Result diagrams: 01/26/18 04:09 01/26/18 04:09 <Kusum Weiss R - 01/26/18 07:12> Abnormal lab results 01/25/18 01/25/18 01/26/18 Range/Units 03:52 23:11 04:09 RBC 3.46 L (4.50-5.90) mil/mm3 Hgb 9.0 L (13.0-17.0) gm/dL Hct 27.2 L (39.0-51.0) % MCV 78.7 L (80.0-100.0) fL MCH 25.9 L (27.0-34.0) pg RDW 17.7 H (11.6-17.2) % Plt Count 67 L (150-450) th/mm3 Neut % (Auto) 72.6 H (16.0-70.0) % Lymph % (Auto) 7.6 L (9.0-44.0) % [place] % (Auto) 16.6 H (0.0-8.0) % Lymph # (Auto) 0.4 L (1.0-4.8) th/mm3 [place] # (Auto) 1.0 H (0.0-0.9) th/mm3 Band Neuts % (Manual) 14 H (0-6) % Lymphocytes % (Manual) 5 L (9-44) % Monocytes % (Manual) 18 H (0-8) % Platelet Estimate Low L Low L (Normal) APTT (23.4-31.7) sec Sodium (136-145) meq/L Chloride (98-107) meq/L BUN (7-18) mg/dL Creatinine (0.60-1.30) mg/dL Estimated GFR (>89) mL/min POC Glucose 129 H (68-110) mg/dl Random Glucose (74-106) mg/dL Calcium (8.5-10.1) mg/dL AST (15-37) U/L Alkaline Phosphatase (45-117) U/L Ammonia (11-32) mcmol/L Total Protein (6.4-8.2) g/dL Albumin (3.4-5.0) g/dL 01/26/18 01/26/18 01/26/18 Range/Units 04:09 04:09 04:09 RBC (4.50-5.90) mil/mm3 Hgb (13.0-17.0) gm/dL Hct (39.0-51.0) % MCV (80.0-100.0) fL MCH (27.0-34.0) pg RDW (11.6-17.2) % Plt Count (150-450) th/mm3 Neut % (Auto) (16.0-70.0) % Lymph % (Auto) (9.0-44.0) % [place] % (Auto) (0.0-8.0) % Lymph # (Auto) (1.0-4.8) th/mm3 [place] # (Auto) (0.0-0.9) th/mm3 Band Neuts % (Manual) (0-6) % Lymphocytes % (Manual) (9-44) % Monocytes % (Manual) (0-8) % Platelet Estimate (Normal) APTT 38.0 H (23.4-31.7) sec Sodium 146 H (136-145) meq/L Chloride 112 H (98-107) meq/L BUN 24 H (7-18) mg/dL Creatinine 2.35 H (0.60-1.30) mg/dL Estimated GFR 29 L (>89) mL/min POC Glucose (68-110) mg/dl Random Glucose 146 H (74-106) mg/dL Calcium 7.7 L (8.5-10.1) mg/dL AST 57 H (15-37) U/L Alkaline Phosphatase 152 H (45-117) U/L Ammonia 69 H (11-32) mcmol/L Total Protein 6.2 L (6.4-8.2) g/dL Albumin 2.0 L (3.4-5.0) g/dL 01/26/18 Range/Units 05:40 RBC (4.50-5.90) mil/mm3 Hgb (13.0-17.0) gm/dL Hct (39.0-51.0) % MCV (80.0-100.0) fL MCH (27.0-34.0) pg RDW (11.6-17.2) % Plt Count (150-450) th/mm3 Neut % (Auto) (16.0-70.0) % Lymph % (Auto) (9.0-44.0) % [place] % (Auto) (0.0-8.0) % Lymph # (Auto) (1.0-4.8) th/mm3 [place] # (Auto) (0.0-0.9) th/mm3 Band Neuts % (Manual) (0-6) % Lymphocytes % (Manual) (9-44) % Monocytes % (Manual) (0-8) % Platelet Estimate (Normal) APTT (23.4-31.7) sec Sodium (136-145) meq/L Chloride (98-107) meq/L BUN (7-18) mg/dL Creatinine (0.60-1.30) mg/dL Estimated GFR (>89) mL/min POC Glucose 121 H (68-110) mg/dl Random Glucose (74-106) mg/dL Calcium (8.5-10.1) mg/dL AST (15-37) U/L Alkaline Phosphatase (45-117) U/L Ammonia (11-32) mcmol/L Total Protein (6.4-8.2) g/dL Albumin (3.4-5.0) g/dL Short CBC 01/26/18 Range/Units 04:09 WBC 5.7 (4.0-11.0) th/mm3 Hgb 9.0 L (13.0-17.0) gm/dL Hct 27.2 L (39.0-51.0) % Plt Count 67 L (150-450) th/mm3 BMP 01/26/18 04:09 Sodium 146 H Potassium 3.7 Chloride 112 H Carbon Dioxide 23.4 BUN 24 H Creatinine 2.35 H Calcium 7.7 L Liver Function 01/26/18 Range/Units 04:09 Total Bilirubin 0.7 (0.2-1.0) mg/dL AST 57 H (15-37) U/L ALT 15 (12-78) U/L Alkaline Phosphatase 152 H (45-117) U/L Albumin 2.0 L (3.4-5.0) g/dL <Kusum Weiss - 01/26/18 07:12> Abnormal lab results 01/24/18 01/24/18 01/24/18 Range/Units 10:15 12:22 12:22 RBC 4.05 L (4.50-5.90) mil/mm3 Hgb 10.4 L (13.0-17.0) gm/dL Hct 31.6 L (39.0-51.0) % MCV 78.2 L (80.0-100.0) fL MCH 25.8 L (27.0-34.0) pg RDW 18.3 H (11.6-17.2) % Plt Count 65 L D (150-450) th/mm3 Neut % (Auto) (16.0-70.0) % Lymph % (Auto) 5.7 L (9.0-44.0) % [place] % (Auto) 24.0 H (0.0-8.0) % Lymph # (Auto) 0.4 L (1.0-4.8) th/mm3 [place] # (Auto) 1.8 H (0.0-0.9) th/mm3 Band Neuts % (Manual) (0-6) % Lymphocytes % (Manual) (9-44) % Monocytes % (Manual) (0-8) % Platelet Estimate Low L (Normal) Chloride 110 H (98-107) meq/L Carbon Dioxide (21.0-32.0) meq/L Creatinine 2.18 H (0.60-1.30) mg/dL Estimated GFR 32 L (>89) mL/min POC Glucose (68-110) mg/dl Random Glucose 124 H (74-106) mg/dL Calcium 7.8 L (8.5-10.1) mg/dL Total Bilirubin 1.1 H (0.2-1.0) mg/dL AST (15-37) U/L Alkaline Phosphatase 153 H (45-117) U/L Ammonia 67 H (11-32) mcmol/L Albumin 2.3 L (3.4-5.0) g/dL 01/24/18 01/25/18 01/25/18 Range/Units 18:01 03:52 03:52 RBC 4.05 L (4.50-5.90) mil/mm3 Hgb 10.3 L (13.0-17.0) gm/dL Hct 31.9 L (39.0-51.0) % MCV 78.7 L (80.0-100.0) fL MCH 25.3 L (27.0-34.0) pg RDW 18.2 H (11.6-17.2) % Plt Count 62 L (150-450) th/mm3 Neut % (Auto) 72.6 H (16.0-70.0) % Lymph % (Auto) 6.4 L (9.0-44.0) % [place] % (Auto) 18.3 H (0.0-8.0) % Lymph # (Auto) 0.5 L (1.0-4.8) th/mm3 [place] # (Auto) 1.5 H (0.0-0.9) th/mm3 Band Neuts % (Manual) 14 H (0-6) % Lymphocytes % (Manual) 5 L (9-44) % Monocytes % (Manual) 18 H (0-8) % Platelet Estimate Low L (Normal) Chloride 110 H (98-107) meq/L Carbon Dioxide 20.8 L (21.0-32.0) meq/L Creatinine 2.39 H (0.60-1.30) mg/dL Estimated GFR 29 L (>89) mL/min POC Glucose 111 H (68-110) mg/dl Random Glucose 136 H (74-106) mg/dL Calcium 7.8 L (8.5-10.1) mg/dL Total Bilirubin 1.1 H (0.2-1.0) mg/dL AST 42 H (15-37) U/L Alkaline Phosphatase 148 H (45-117) U/L Ammonia (11-32) mcmol/L Albumin 2.1 L (3.4-5.0) g/dL 01/25/18 01/25/18 Range/Units 04:32 05:32 RBC (4.50-5.90) mil/mm3 Hgb (13.0-17.0) gm/dL Hct (39.0-51.0) % MCV (80.0-100.0) fL MCH (27.0-34.0) pg RDW (11.6-17.2) % Plt Count (150-450) th/mm3 Neut % (Auto) (16.0-70.0) % Lymph % (Auto) (9.0-44.0) % [place] % (Auto) (0.0-8.0) % Lymph # (Auto) (1.0-4.8) th/mm3 [place] # (Auto) (0.0-0.9) th/mm3 Band Neuts % (Manual) (0-6) % Lymphocytes % (Manual) (9-44) % Monocytes % (Manual) (0-8) % Platelet Estimate (Normal) Chloride (98-107) meq/L Carbon Dioxide (21.0-32.0) meq/L Creatinine (0.60-1.30) mg/dL Estimated GFR (>89) mL/min POC Glucose 141 H (68-110) mg/dl Random Glucose (74-106) mg/dL Calcium (8.5-10.1) mg/dL Total Bilirubin (0.2-1.0) mg/dL AST (15-37) U/L Alkaline Phosphatase (45-117) U/L Ammonia 82 H (11-32) mcmol/L Albumin (3.4-5.0) g/dL Short CBC 01/24/18 01/25/18 Range/Units 12:22 03:52 WBC 7.5 8.0 (4.0-11.0) th/mm3 Hgb 10.4 L 10.3 L (13.0-17.0) gm/dL Hct 31.6 L 31.9 L (39.0-51.0) % Plt Count 65 L D 62 L (150-450) th/mm3 BMP 01/24/18 01/25/18 12:22 03:52 Sodium 143 143 Potassium 3.9 3.6 Chloride 110 H 110 H Carbon Dioxide 22.7 20.8 L BUN 13 18 Creatinine 2.18 H 2.39 H Calcium 7.8 L 7.8 L Liver Function 01/24/18 01/25/18 Range/Units 12:22 03:52 Total Bilirubin 1.1 H 1.1 H (0.2-1.0) mg/dL AST 29 42 H (15-37) U/L ALT 14 14 (12-78) U/L Alkaline Phosphatase 153 H 148 H (45-117) U/L Albumin 2.3 L 2.1 L (3.4-5.0) g/dL <Irma Zhang - 01/25/18 10:19> Physical Exam Vital signs: Vital Signs 01/25/18 07:30 01/25/18 08:00 01/25/18 08:30 Temperature Pulse Rate 85 89 84 Respiratory Rate 16 17 18 Blood Pressure 111/70 114/70 101/65 Pulse Oximetry 99 98 98 01/25/18 09:00 01/25/18 09:30 01/25/18 10:00 Temperature Pulse Rate 89 85 82 Respiratory Rate 16 18 17 Blood Pressure 96/60 L 98/58 L 103/64 Pulse Oximetry 98 98 97 01/25/18 10:30 01/25/18 10:46 01/25/18 11:00 Temperature Pulse Rate 79 78 Respiratory Rate 16 16 16 Blood Pressure 102/62 102/63 Pulse Oximetry 97 97 98 01/25/18 11:21 01/25/18 11:30 01/25/18 12:00 Temperature Pulse Rate 85 85 81 Respiratory Rate 16 16 16 Blood Pressure 99/62 L 99/63 L Pulse Oximetry 99 99 01/25/18 12:30 01/25/18 13:00 01/25/18 13:30 Temperature Pulse Rate 80 90 93 H Respiratory Rate 16 16 18 Blood Pressure 100/63 112/70 115/70 Pulse Oximetry 99 100 100 01/25/18 13:37 01/25/18 14:00 01/25/18 14:27 Temperature Pulse Rate 91 H Respiratory Rate 18 18 14 Blood Pressure 107/60 Pulse Oximetry 100 97 97 01/25/18 14:30 01/25/18 15:00 01/25/18 15:06 Temperature Pulse Rate 92 H 92 H 91 H Respiratory Rate 11 L 8 L 8 L Blood Pressure 104/65 91/55 L Pulse Oximetry 96 99 01/25/18 15:30 01/25/18 15:32 01/25/18 15:33 Temperature Pulse Rate 86 85 85 Respiratory Rate 13 13 12 Blood Pressure 73/49 L 78/52 L 75/48 L Pulse Oximetry 98 99 98 01/25/18 15:39 01/25/18 15:52 01/25/18 16:00 Temperature Pulse Rate 81 80 Respiratory Rate 16 16 Blood Pressure 76/52 L 81/53 L Pulse Oximetry 100 99 99 01/25/18 16:45 01/25/18 20:00 01/25/18 20:10 Temperature 99.5 F Pulse Rate 82 Respiratory Rate 16 16 20 Blood Pressure 106/67 Pulse Oximetry 99 100 100 01/25/18 20:12 01/26/18 00:00 01/26/18 00:06 Temperature 100.1 F H Pulse Rate 100 H 86 85 Respiratory Rate 20 16 18 Blood Pressure 137/66 Pulse Oximetry 97 98 01/26/18 04:00 01/26/18 04:30 01/26/18 04:55 Temperature 98.4 F Pulse Rate 76 78 Respiratory Rate 16 17 Blood Pressure 79/51 L 126/76 Pulse Oximetry 97 98 Intake & Output 01/25/18 01/26/18 01/26/18 18:59 06:59 18:59 Intake Total 1660 / 1660 863 / 863 Output Total 2200 / 2200 1800 / 1800 Balance -540 / -540 -937 / -937 Weight 100 kg Intake: IV 1400 / 1400 250 / 250 Precedex Inj 200 MCG In NS Inj 50 / 50 50 / 50 48 ML @ 0.2 MCG/KG/HR 5 mls/hr IV.CONT TITRATE PRN Rx#: [id number] Versed Inj 50 mg In 50 ml @ 2 50 / 50 MG/HR 2 mls/hr IV.CONT TITRATE PRN Rx#:[id number] Diprivan 1000 mg/100 ml Inj 1, 100 / 100 000 mg In 100 ml @ 5 MCG/KG/MIN 2.994 mls/hr IV.CONT TITRATE PRN Rx#:[id number] Zosyn 4.5 GM Premix 4.5 gm In 200 / 200 200 / 200 100 ml @ 200 mls/hr IV.SIG Q6H MANUEL Rx#:[id number] NS Inj 1,000 ML @ Wide Open IV. 1000 / 1000 SIG BOLUS ONE Rx#:[id number] Tube Feeding 260 / 260 363 / 363 Water Bolus Amount 250 / 250 Output: Urine Amount (Catheter) 2200 / 2200 1800 / 1800 Straight 2200 / 2200 1800 / 1800 Other: Date of Last Bowel Movement 01/22/18 01/22/18 # Bowel Movements 0 <Kusum Weiss R - 01/26/18 07:12> Vital Signs 01/24/18 10:30 01/24/18 11:00 01/24/18 11:30 Temperature Pulse Rate 80 80 79 Respiratory Rate 16 16 16 Blood Pressure 84/54 L 85/56 L 84/56 L Pulse Oximetry 97 96 97 01/24/18 12:00 01/24/18 12:21 01/24/18 12:35 Temperature Pulse Rate 80 78 76 Respiratory Rate 16 16 16 Blood Pressure 75/50 L 79/53 L 79/52 L Pulse Oximetry 94 L 97 99 01/24/18 12:37 01/24/18 13:00 01/24/18 13:02 Temperature Pulse Rate 77 75 76 Respiratory Rate 16 16 16 Blood Pressure 80/51 L 75/50 L Pulse Oximetry 98 100 100 01/24/18 13:07 01/24/18 13:08 01/24/18 14:00 Temperature Pulse Rate 76 74 83 Respiratory Rate 16 16 16 Blood Pressure 78/53 L 85/54 L Pulse Oximetry 100 100 100 01/24/18 15:00 01/24/18 15:41 01/24/18 16:00 Temperature 100.0 F H Pulse Rate 82 81 Respiratory Rate 16 16 16 Blood Pressure Pulse Oximetry 100 100 100 01/24/18 17:00 01/24/18 18:00 01/24/18 18:44 Temperature Pulse Rate 83 82 84 Respiratory Rate 19 20 19 Blood Pressure 106/64 Pulse Oximetry 100 100 100 01/24/18 19:00 01/24/18 19:56 01/24/18 20:00 Temperature Pulse Rate 84 79 84 Respiratory Rate 18 22 16 Blood Pressure 98/63 L Pulse Oximetry 100 100 100 01/24/18 20:43 01/24/18 21:00 01/24/18 21:30 Temperature Pulse Rate 80 82 83 Respiratory Rate 18 15 14 Blood Pressure 101/64 96/59 L Pulse Oximetry 100 100 100 01/24/18 22:00 01/24/18 22:30 01/24/18 23:00 Temperature Pulse Rate 82 85 85 Respiratory Rate 15 16 15 Blood Pressure 103/63 98/59 L 101/65 Pulse Oximetry 100 99 100 01/24/18 23:07 01/24/18 23:30 01/25/18 00:00 Temperature Pulse Rate 93 H 83 81 Respiratory Rate 18 16 17 Blood Pressure 100/63 99/61 L Pulse Oximetry 100 100 01/25/18 00:26 01/25/18 00:30 01/25/18 01:00 Temperature Pulse Rate 84 103 H Respiratory Rate 22 19 15 Blood Pressure 109/67 119/83 Pulse Oximetry 100 100 98 01/25/18 01:30 01/25/18 02:00 01/25/18 02:07 Temperature 101.1 F H Pulse Rate 98 H 91 H 91 H Respiratory Rate 16 16 16 Blood Pressure 107/63 88/54 L 91/54 L Pulse Oximetry 97 93 L 94 L 01/25/18 02:30 01/25/18 03:00 01/25/18 03:23 Temperature Pulse Rate 88 85 82 Respiratory Rate 16 16 20 Blood Pressure 85/52 L 87/59 L Pulse Oximetry 94 L 95 97 01/25/18 03:30 01/25/18 04:00 01/25/18 07:00 Temperature 98.8 F Pulse Rate 82 80 87 Respiratory Rate 14 15 19 Blood Pressure 118/67 116/67 Pulse Oximetry 97 97 01/25/18 08:00 Temperature Pulse Rate Respiratory Rate 18 Blood Pressure Pulse Oximetry 99 Intake & Output 01/24/18 01/25/18 01/25/18 18:59 06:59 18:59 Intake Total 1097.5 / 1097.5 840 / 840 Output Total 900 / 900 1300 / 1300 Balance 197.5 / 197.5 -460 / -460 Intake: IV 767.5 / 767.5 350 / 350 Versed Inj 50 mg In 50 ml @ 2 50 / 50 50 / 50 MG/HR 2 mls/hr IV.CONT TITRATE PRN Rx#:[id number] Diprivan 1000 mg/100 ml Inj 1, 100 / 100 000 mg In 100 ml @ 5 MCG/KG/MIN 2.994 mls/hr IV.CONT TITRATE PRN Rx#:[id number] Zosyn 4.5 GM Premix 4.5 gm In 100 / 100 300 / 300 100 ml @ 200 mls/hr IV.SIG Q6H MANUEL Rx#:[id number] Tube Feeding 330 / 330 240 / 240 Water Bolus Amount 250 / 250 Output: Urine Amount (Catheter) 900 / 900 1300 / 1300 Straight 900 / 900 1300 / 1300 Other: Date of Last Bowel Movement 01/22/18 01/22/18 # Incontinent Bowel Movements 1 <Irma Zhang - 01/25/18 10:19> Narrative: GENERAL: 52-year-old male currently orotracheally intubated SKIN: Warm and dry. No petechia or rash HEAD: Atraumatic. Normocephalic. ENT: No nasal bleeding or discharge. Orotracheally intubated large amount of ET tube secretions NECK: Trachea midline. No JVD. CARDIOVASCULAR: Regular rate and rhythm. S1, S2 no S4. No murmur RESPIRATORY: B/l equa air entry. Few coarse rhonchi GASTROINTESTINAL: Abdomen soft, non-tender, slightly distended. MUSCULOSKELETAL: Extremities without clubbing, cyanosis, or edema. No obvious deformities. +2 PD pulses BL NEUROLOGICAL: Intubated and sedated. On sedation lightening spontaneously moves lower extremities no movements noted on the upper extremities. No spontaneous eye opening <Irma Zhang 01/25/18 10:19> - Urinary Catheter Management 400 Cath placed during this visit: no <Kusum Weiss 01/26/18 07:12> no <Irma Zhang 01/25/18 10:19> Straight Cath placed during this visit: no <Kusum Weiss [facility] 01/26/18 07:12> no <Irma Zhang 01/25/18 10:19> Assessment and Plan - Assessment (1) Alcohol withdrawal Code(s): F10.239 - Alcohol dependence with withdrawal, unspecified Status: Acute (2) Abdominal pain Code(s): R10.9 - Unspecified abdominal pain Status: Acute (3) Esophageal varices in cirrhosis Code(s): K74.60 - Unspecified cirrhosis of liver; I85.10 - Secondary esophageal varices without bleeding Status: Chronic (4) Hypertension Code(s): I10 - Essential (primary) hypertension Status: Chronic (5) Alcohol abuse Code(s): F10.10 - Alcohol abuse, uncomplicated Status: Chronic (6) Depression with anxiety Code(s): F41.8 - Other specified anxiety disorders Status: Chronic (7) Cough Code(s): R05 - Cough Status: Acute (8) Diabetes Code(s): E11.9 - Type 2 diabetes mellitus without complications Status: Chronic (9) Deep vein thrombosis (DVT) of brachial vein Code(s): I82.629 - Acute embolism and thrombosis of deep veins of unspecified upper extremity Status: Acute (10) Nutrition, metabolism, and development symptoms Code(s): R63.8 - Other symptoms and signs concerning food and fluid intake Status: Acute <Kusum Weiss - 01/26/18 07:12> (1) Alcohol withdrawal Code(s): F10.239 - Alcohol dependence with withdrawal, unspecified Status: Acute Plan: Patient with extensive alcohol abuse history for the past 30 years complicated by cirrhosis and esophageal variceal GI bleed. Currently receiving treatment for alcoholism at [facility] since July of this year. Reports he is taking a medication to help with his alcoholism however he has not been compliant and has been drinking at least 2 beers per day. Presented to the ED with severe abdominal pain, vomiting and nausea. Continue with CIWA protocol Patient with worsening with alcohol withdrawal symptoms and was transferred to critical care on 01/18. Fire Prevention Officer consulted, appreciate recommendations Patient placed on Precedex drip on 01/18 Patient placed n.p.o. c/w IV fluids D5NS 50 mL/hr Continue to monitor vital signs, continue to monitor ammonia and cmp Patient intubated on 01/19; Current PRVC peep 5 FiO2 40%; failed CPAP trial Currently on fentanyl 15 mL/hr and propofol 9 mL/h drips for sedation/ analgesia while intubated. Also on Versed 3 Continue vitamin bag daily times [address] brain: No acute abnormalities Ammonia level elevated at 70-> 81->98->72->59->56; today at 82 Lactulose increased from daily to 4 times daily Rifaximin 550 BID monitor ammonia levels (2) Abdominal pain Code(s): R10.9 - Unspecified abdominal pain Status: Acute Plan: Patient is a 52-year-old male with past medical history of alcoholism, cirrhosis and esophageal variceal GI bleed who presented to the ED with complaint of umbilical abdominal pain, nausea, and vomiting for the past 2 days. Patient reports tooth extraction 2 days prior to admission and malaise ( abdominal pain, vomiting x10 times with questionable blood in vomit which he attributes to tooth extraction however due to patient's history of upper GI bleed due to esophageal varices will consult GI for further evaluation). On admission patient was slightly hypertensive however he was afebrile and no leukocytosis appreciated on CBC. CT abdomen: Showing edema of mesenteric, small metallic object in the transverse colon (which may have been part of patient's dental filling) and cirrhosis with portal hypertension and significant esophageal varices. Zofran for nausea Pain controlled with hydromorphone PRN which patient has had in the past without any adverse reactions; on hold Protonix IV twice daily Cipro for prophylaxis; discontinued 01/22 octreotide drip 25 mcg/h GI consulted for further recommendations, -Protonix, prophylactic antibiotic and octreotide drip -H&H stable and abdominal ultrasound negative for ascites -EGD procedure 01/16 showed: Esophageal varices grade 2 status post 4 band applied, biopsies taken from gastric antrum. Repeat EGD in 2 months. -vocal cord mass noted on intubation and ENT was consulted for further evaluation. -non-selective beta deena and follow up outpatient in two weeks. - GI has signed off ENT consulted Normal evaluation of vocal cords with laryngoscope neck CT no abnormal findings, no evidence of laryngeal lesion -will assess as needed (3) Esophageal varices in cirrhosis Code(s): K74.60 - Unspecified cirrhosis of liver; I85.10 - Secondary esophageal varices without bleeding Status: Chronic Plan: See plan above for abdominal pain (4) Hypertension Code(s): I10 - Essential (primary) hypertension Status: Chronic Plan: Resume home medications Clonidine PRN Continue to monitor blood pressure. (5) Alcohol abuse Code(s): F10.10 - Alcohol abuse, uncomplicated Status: Chronic Plan: See alcohol withdrawal plan above (6) Depression with anxiety Code(s): F41.8 - Other specified anxiety disorders Status: Chronic Plan: Resume home medications (7) Cough Code(s): R05 - Cough Status: Acute Plan: Patient with history of chronic cough and wheezing. -GI saw abnormal vocal cords for EGD so consulted Pulmonology and ENT -Pulmonology: recommended aerosol treatment and tessalon 200 mg TID and smoking cessation. Recommended follow up pulmonary function studies once acute illness treated. -ENT: CT neck was negative. No mass visualized with laryngoscopy. Can follow up OP for post nasal drip -Sputum culture: MRSA -Started on vancomycin and zosyn -BCX NG to-date -Chest x-ray: Support equipment in good position. Small areas of atelectasis in both lung bases. (8) Diabetes Code(s): E11.9 - Type 2 diabetes mellitus without complications Status: Chronic Plan: Sliding scale insulin low Accu-Cheks Hypoglycemia protocol (9) Deep vein thrombosis (DVT) of brachial vein Code(s): I82.629 - Acute embolism and thrombosis of deep veins of unspecified upper extremity Status: Acute Plan: 1111 venous Doppler study: DVT of right mid brachial vein Anticoagulation therapy complicated given possible GI bleed -will follow critical care recommendations of Lovenox 40 (10) Nutrition, metabolism, and development symptoms Code(s): R63.8 - Other symptoms and signs concerning food and fluid intake Status: Acute Plan: Electrolytes: Replete as needed Diet: tube feeds ( Glucerna 1.5) DVT prophylaxis: lovenox 40 <Irma Zhang - 01/25/18 10:17> - Attending Attestation This patient was seen and examined. The assessment and plan was discussed with the resident physician and I am in agreement with continued medical care as documented in this encounter. KUSUM WEISS MD <Kusum Weiss - 01/26/18 07:12>
[2018-01-25] MEDS: amLODIPine 5 MG Tablet PO SCH (11:38)
[2018-01-25] MEDS ORDERED: Pharmacy Ordered Lab Info OTHER ONE (11:45)
[2018-01-25] MEDS: Dexmedetomidine Inj 200 MCG in Sodium Chlor 0.9% Inj 48 ML IV.CONT PRN ×2 (14:14→22:11)
[2018-01-25] MEDS: Enoxaparin Inj 40 MG/0.4 ML Syringe SQ SCH (14:15)
--- NOTE | 2018-01-25 17:52 | P.PN ---
Subjective Interval history: sedated on vent support Physical Exam Vital signs: Vital Signs 01/24/18 18:00 01/24/18 18:44 01/24/18 19:00 Temperature Pulse Rate 82 84 84 Respiratory Rate 20 19 18 Blood Pressure 106/64 Pulse Oximetry 100 100 100 01/24/18 19:56 01/24/18 20:00 01/24/18 20:43 Temperature Pulse Rate 79 84 80 Respiratory Rate 22 16 18 Blood Pressure 98/63 L Pulse Oximetry 100 100 100 01/24/18 21:00 01/24/18 21:30 01/24/18 22:00 Temperature Pulse Rate 82 83 82 Respiratory Rate 15 14 15 Blood Pressure 101/64 96/59 L 103/63 Pulse Oximetry 100 100 100 01/24/18 22:30 01/24/18 23:00 01/24/18 23:07 Temperature Pulse Rate 85 85 93 H Respiratory Rate 16 15 18 Blood Pressure 98/59 L 101/65 Pulse Oximetry 99 100 01/24/18 23:30 01/25/18 00:00 01/25/18 00:26 Temperature Pulse Rate 83 81 Respiratory Rate 16 17 22 Blood Pressure 100/63 99/61 L Pulse Oximetry 100 100 100 01/25/18 00:30 01/25/18 01:00 01/25/18 01:30 Temperature Pulse Rate 84 103 H 98 H Respiratory Rate 19 15 16 Blood Pressure 109/67 119/83 107/63 Pulse Oximetry 100 98 97 01/25/18 02:00 01/25/18 02:07 01/25/18 02:30 Temperature 101.1 F H Pulse Rate 91 H 91 H 88 Respiratory Rate 16 16 16 Blood Pressure 88/54 L 91/54 L 85/52 L Pulse Oximetry 93 L 94 L 94 L 01/25/18 03:00 01/25/18 03:23 01/25/18 03:30 Temperature Pulse Rate 85 82 82 Respiratory Rate 16 20 14 Blood Pressure 87/59 L 118/67 Pulse Oximetry 95 97 97 01/25/18 04:00 01/25/18 04:30 01/25/18 05:00 Temperature 98.8 F Pulse Rate 80 82 82 Respiratory Rate 15 17 15 Blood Pressure 116/67 112/66 106/64 Pulse Oximetry 97 97 98 01/25/18 05:30 01/25/18 06:00 01/25/18 06:30 Temperature Pulse Rate 81 84 85 Respiratory Rate 16 16 16 Blood Pressure 110/71 104/62 109/70 Pulse Oximetry 98 98 98 01/25/18 07:00 01/25/18 07:30 01/25/18 08:00 Temperature Pulse Rate 85 85 89 Respiratory Rate 16 16 17 Blood Pressure 108/68 111/70 114/70 Pulse Oximetry 98 99 98 01/25/18 08:30 01/25/18 09:00 01/25/18 09:30 Temperature Pulse Rate 84 89 85 Respiratory Rate 18 16 18 Blood Pressure 101/65 96/60 L 98/58 L Pulse Oximetry 98 98 98 01/25/18 10:00 01/25/18 10:30 01/25/18 10:46 Temperature Pulse Rate 82 79 Respiratory Rate 17 16 16 Blood Pressure 103/64 102/62 Pulse Oximetry 97 97 97 01/25/18 11:00 01/25/18 11:21 01/25/18 11:30 Temperature Pulse Rate 78 85 85 Respiratory Rate 16 16 16 Blood Pressure 102/63 99/62 L Pulse Oximetry 98 99 01/25/18 12:00 01/25/18 12:30 01/25/18 13:00 Temperature Pulse Rate 81 80 90 Respiratory Rate 16 16 16 Blood Pressure 99/63 L 100/63 112/70 Pulse Oximetry 99 99 100 01/25/18 13:30 01/25/18 13:37 01/25/18 14:00 Temperature Pulse Rate 93 H 91 H Respiratory Rate 18 18 18 Blood Pressure 115/70 107/60 Pulse Oximetry 100 100 97 01/25/18 14:27 01/25/18 14:30 01/25/18 15:00 Temperature Pulse Rate 92 H 92 H Respiratory Rate 14 11 L 8 L Blood Pressure 104/65 91/55 L Pulse Oximetry 97 96 99 01/25/18 15:06 01/25/18 15:30 01/25/18 15:32 Temperature Pulse Rate 91 H 86 85 Respiratory Rate 8 L 13 13 Blood Pressure 73/49 L 78/52 L Pulse Oximetry 98 99 01/25/18 15:33 01/25/18 15:39 01/25/18 15:52 Temperature Pulse Rate 85 81 Respiratory Rate 12 16 Blood Pressure 75/48 L 76/52 L Pulse Oximetry 98 100 99 01/25/18 16:00 01/25/18 16:45 Temperature Pulse Rate 80 Respiratory Rate 16 16 Blood Pressure 81/53 L Pulse Oximetry 99 99 Intake & Output 01/24/18 01/25/18 01/25/18 18:59 06:59 18:59 Intake Total 1097.5 / 1097.5 840 / 840 100 / 100 Output Total 900 / 900 1300 / 1300 Balance 197.5 / 197.5 -460 / -460 100 / 100 Intake: IV 767.5 / 767.5 350 / 350 100 / 100 Versed Inj 50 mg In 50 ml @ 2 50 / 50 50 / 50 MG/HR 2 mls/hr IV.CONT TITRATE PRN Rx#:[id number] Diprivan 1000 mg/100 ml Inj 1, 100 / 100 000 mg In 100 ml @ 5 MCG/KG/MIN 2.994 mls/hr IV.CONT TITRATE PRN Rx#:[id number] Zosyn 4.5 GM Premix 4.5 gm In 100 / 100 300 / 300 100 / 100 100 ml @ 200 mls/hr IV.SIG Q6H MANUEL Rx#:[id number] Tube Feeding 330 / 330 240 / 240 Water Bolus Amount 250 / 250 Output: Urine Amount (Catheter) 900 / 900 1300 / 1300 Straight 900 / 900 1300 / 1300 Other: Date of Last Bowel Movement 01/22/18 01/22/18 01/22/18 # Incontinent Bowel Movements 1 Narrative: GENERAL: 52-year-old male currently orotracheally intubated SKIN: Warm and dry. No petechia or rash HEAD: Atraumatic. Normocephalic. ENT: No nasal bleeding or discharge. Orotracheally intubated large amount of ET tube secretions NECK: Trachea midline. No JVD. CARDIOVASCULAR: Regular rate and rhythm. S1, S2 no S4. No murmur RESPIRATORY: B/l equa air entry. Few coarse rhonchi GASTROINTESTINAL: Abdomen soft, non-tender, slightly distended. MUSCULOSKELETAL: Extremities without clubbing, cyanosis, or edema. No obvious deformities. +2 PD pulses BL NEUROLOGICAL: Intubated and sedated. On sedation lightening spontaneously moves lower extremities no movements noted on the upper extremities. No spontaneous eye opening - Urinary Catheter Management Straight Cath placed during this visit: no 400 Cath placed during this visit: no Results - Labs CBC & Chem 7: 01/25/18 03:52 01/25/18 03:52 Laboratory Results - last 24 hr 01/24/18 01/24/18 01/25/18 18:01 23:39 03:52 WBC 8.0 RBC 4.05 L Hgb 10.3 L Hct 31.9 L MCV 78.7 L MCH 25.3 L MCHC 32.2 RDW 18.2 H Plt Count 62 L MPV 8.8 Prelim Diff (Auto) Slide review pending Neut % (Auto) 72.6 H Lymph % (Auto) 6.4 L [place] % (Auto) 18.3 H Eos % (Auto) 2.3 Baso % (Auto) 0.4 Neut # (Auto) 5.8 Lymph # (Auto) 0.5 L [place] # (Auto) 1.5 H Eos # (Auto) 0.2 Baso # (Auto) 0.0 WBC Differential Manual diff final Seg Neuts % (Manual) 61 Band Neuts % (Manual) 14 H Lymphocytes % (Manual) 5 L Monocytes % (Manual) 18 H Eosinophils % (Manual) 1 Metamyelocytes % (Man) 1 Abs Neuts (Manual) 6.1 Differential Comment . Platelet Estimate Low L Platelet Morphology Normal Sodium Potassium Chloride Carbon Dioxide Anion Gap BUN Creatinine Estimated GFR POC Glucose 111 H 110 Random Glucose Calcium Magnesium Total Bilirubin AST ALT Alkaline Phosphatase Ammonia Total Protein Albumin Random Vancomycin 01/25/18 01/25/18 01/25/18 03:52 04:32 05:32 WBC RBC Hgb Hct MCV MCH MCHC RDW Plt Count MPV Prelim Diff (Auto) Neut % (Auto) Lymph % (Auto) [place] % (Auto) Eos % (Auto) Baso % (Auto) Neut # (Auto) Lymph # (Auto) [place] # (Auto) Eos # (Auto) Baso # (Auto) WBC Differential Seg Neuts % (Manual) Band Neuts % (Manual) Lymphocytes % (Manual) Monocytes % (Manual) Eosinophils % (Manual) Metamyelocytes % (Man) Abs Neuts (Manual) Differential Comment Platelet Estimate Platelet Morphology Sodium 143 Potassium 3.6 Chloride 110 H Carbon Dioxide 20.8 L Anion Gap 12 BUN 18 Creatinine 2.39 H Estimated GFR 29 L POC Glucose 141 H Random Glucose 136 H Calcium 7.8 L Magnesium 2.3 Total Bilirubin 1.1 H AST 42 H ALT 14 Alkaline Phosphatase 148 H Ammonia 82 H Total Protein 6.4 Albumin 2.1 L Random Vancomycin 38.2 01/25/18 13:17 WBC RBC Hgb Hct MCV MCH MCHC RDW Plt Count MPV Prelim Diff (Auto) Neut % (Auto) Lymph % (Auto) [place] % (Auto) Eos % (Auto) Baso % (Auto) Neut # (Auto) Lymph # (Auto) [place] # (Auto) Eos # (Auto) Baso # (Auto) WBC Differential Seg Neuts % (Manual) Band Neuts % (Manual) Lymphocytes % (Manual) Monocytes % (Manual) Eosinophils % (Manual) Metamyelocytes % (Man) Abs Neuts (Manual) Differential Comment Platelet Estimate Platelet Morphology Sodium Potassium Chloride Carbon Dioxide Anion Gap BUN Creatinine Estimated GFR POC Glucose 110 Random Glucose Calcium Magnesium Total Bilirubin AST ALT Alkaline Phosphatase Ammonia Total Protein Albumin Random Vancomycin Microbiology 01/21/18 09:17 Blood - Peripheral Aerobic Blood Culture - Preliminary No growth in 4 days 01/21/18 09:17 Blood - Peripheral Anaerobic Blood Culture - Preliminary No growth in 4 days 01/21/18 09:03 Blood - Peripheral Aerobic Blood Culture - Preliminary No growth in 4 days 01/21/18 09:03 Blood - Peripheral Anaerobic Blood Culture - Preliminary No growth in 4 days Assessment and Plan - Plan imp respiratory failure\ pna plan vent support antibx wean as tolerated
[2018-01-26] MEDS: Piperacil/Tazo 4.5 GM Premix 4.5 GM/100 ML BAG IV.SIG SCH ×4 (02:29→20:21)
[2018-01-26] MEDS: Oral Hygiene Kit OROPHARYNG SCH ×3 (03:46→18:19)
[2018-01-26] MEDS: Benzonatate 100 MG Capsule PO SCH ×3 (03:46→20:20)
[2018-01-26 04:26] LABS: Baso % (Auto) 0.4 % (0.0-2.0); Eos # (Auto) 0.2 th/mm3 (0.0-0.4); Eos % (Auto) 2.8 % (0.0-4.0); Hematocrit 27.2 % (39.0-51.0); Lymph # (Auto) 0.4 th/mm3 (1.0-4.8); Lymph % (Auto) 7.6 % (9.0-44.0); Mean Corpuscular Hemoglobin 25.9 pg (27.0-34.0); Mean Corpuscular Volume 78.7 fL (80.0-100.0); Mean Platelet Volume 8.7 fL (7.0-11.0); Mono % (Auto) 16.6 % (0.0-8.0); Neut # (Auto) 4.2 th/mm3 (1.8-7.7); Neut % (Auto) 72.6 % (16.0-70.0); Platelet Count 67 th/mm3 (150-450); Red Blood Count 3.46 mil/mm3 (4.50-5.90); Red Cell Distribution Width 17.7 % (11.6-17.2); White Blood Count 5.7 th/mm3 (4.0-11.0)
[2018-01-26 04:32] LABS: INR 1.1 Ratio; Prothrombin Time 11.5 sec (9.8-11.6)
[2018-01-26 04:47] LABS: Anion Gap 11 meq/L (5-15); Aspartate Aminotransferase 57 U/L (15-37); Blood Urea Nitrogen 24 mg/dL (7-18); Calcium 7.7 mg/dL (8.5-10.1); Carbon Dioxide 23.4 meq/L (21.0-32.0); Chloride 112 meq/L (98-107); Glomerular Filtration Rate 29 mL/min (>89); Glucose,Random 146 mg/dL (74-106); Magnesium 2.5 mg/dL (1.5-2.5); Potassium 3.7 meq/L (3.5-5.1); Sodium 146 meq/L (136-145)
[2018-01-26 04:51] LABS: Alanine Aminotransferase 15 U/L (12-78); Alkaline Phosphatase 152 U/L (45-117); Total Protein 6.2 g/dL (6.4-8.2); Vancomycin,Random 22.1 Comment
[2018-01-26] MEDS: Insulin NovoLOG Aspart Correctional Sugar Inj SQ SCH ×3 (05:41→18:20)
[2018-01-26] MEDS: Artificial Tears Opth Drops 15 ML Bottle EACH EYE SCH ×3 (05:41→22:24)
[2018-01-26 06:03] LABS: Platelet Morphology Normal (Normal)
[2018-01-26] MEDS: Dexmedetomidine Inj 200 MCG in Sodium Chlor 0.9% Inj 48 ML IV.CONT PRN ×3 (06:33→23:00)
--- NOTE | 2018-01-26 07:33 | P.PNCC ---
Subjective Subjective Remarks/Hospital Course: The patient is a 52-year-old male with a past medical history of ETOH abuse, cirrhosis of liver secondary to alcohol, hypertension, diabetes mellitus, anxiety, depression, prior history of upper gastrointestinal bleed x2 due to esophageal varices. The patient was admitted under the family medicine team on 01/15/[address] for [address] pain. A CT scan of the abdomen and pelvis showed a cirrhotic liver with evidence of portal hypertension and prominent gastroesophageal varices. No ascites noted. The patient also underwent an ultrasound of the abdomen, which showed no significant ascites. He was seen by GI service and underwent upper endoscopy on 01/16/2018 which showed grade 2 esophageal varices, status post banding x4, gastritis and hiatal hernia. The patient also had a CT scan of the chest on 01/16/2018 which showed mild infiltrates in the posterior lower lung hussein suggestive of atelectasis and nonspecific 1.5 cm lymph node in the anterior superior mediastinum. He is being followed by Dr. Maki from pulmonary service. Due to altered mental status and possible alcohol withdrawal he was transferred to ICU and critical care medicine was consulted for critical care management. He received Ativan 6-8 mg total along with Haldol and the patient remained restless and agitated. Most of the history was obtained from reviewing medical records as the patient is a poor historian. ABG was performed this morning on room air, which showed a pH of 7.44, CO2 41, PaO2 69, bicarbonate 27, saturation 91%. 01/19: Patient with worsening oxygenation status. Essentially unresponsive obtunded. Ammonia level is 98 this morning. Elective intubation. 01/20 Patient is intubated and sedated, afebrile. 01/21 Patient remains sedated with Fentnayl, Diprivan and Versed. T;100.5, CT brain yesterday no acute findings. 01/22: Remains intubated sedated Versed had been held since a.m. Remains unresponsive failed CPAP trial today due to tachypnea. Spontaneously moves lower extremities no spontaneous eye opening. Large amount of ET tube secretions reported. Sputum cx 01/19 MRSA 01/23: Remains sedated and intubated, some mild dyssynchrony with the vent during my exam. 01/24: Patient gets very agitated during sedation vacations, still requiring propofol/ versed/ fentanyl gtts. Temp is 99F, still diaphoretic on exam. 01/25: BUN/ creat trending up but urine output remains adequate. Patient's home med list includes bumex, will start diuresis today to see if this improves renal function. Of note, his home list also includes Fosrenal and mesalamine but it is unclear from previous records if patient has a h/o CKD or inflammatory bowel disease. 01/26: Creat plateaued and urine output much improved with dose of lasix yesterday, will restart home bumex dose. Propofol d/cd yesterday, versed currently on hold, precedex and fentanyl both at low doses. Copious thick secretions from ETT which are difficult to suction with in-line, will perform bedside bronch for pulmonary toilet. No contact info available for next of kin to obtain consent but patient will need this in preparation for extubation. Objective Vital Signs / I&O: Vital Signs 01/25/18 07:30 01/25/18 08:00 01/25/18 08:30 Temperature Pulse Rate 85 89 84 Respiratory Rate 16 18 Blood Pressure 111/70 114/70 101/65 Pulse Oximetry 99 98 98 01/25/18 09:00 01/25/18 09:30 01/25/18 10:00 Temperature Pulse Rate 89 85 82 Respiratory Rate 16 18 17 Blood Pressure 96/60 L 98/58 L 103/64 Pulse Oximetry 98 98 97 01/25/18 10:30 01/25/18 10:46 01/25/18 11:00 Temperature Pulse Rate 79 78 Respiratory Rate 16 16 16 Blood Pressure 102/62 102/63 Pulse Oximetry 97 97 98 01/25/18 11:21 01/25/18 11:30 01/25/18 12:00 Temperature Pulse Rate 85 85 81 Respiratory Rate 16 16 16 Blood Pressure 99/62 L 99/63 L Pulse Oximetry 99 99 01/25/18 12:30 01/25/18 13:00 01/25/18 13:30 Temperature Pulse Rate 80 90 93 H Respiratory Rate 16 16 18 Blood Pressure 100/63 112/70 115/70 Pulse Oximetry 99 100 100 01/25/18 13:37 01/25/18 14:00 01/25/18 14:27 Temperature Pulse Rate 91 H Respiratory Rate 18 18 14 Blood Pressure 107/60 Pulse Oximetry 100 97 97 01/25/18 14:30 11/17/18 15:00 01/25/18 15:06 Temperature Pulse Rate 92 H 92 H 91 H Respiratory Rate 11 L 8 L 8 L Blood Pressure 104/65 91/55 L Pulse Oximetry 96 99 01/25/18 15:30 01/25/18 15:32 01/25/18 15:33 Temperature Pulse Rate 86 85 85 Respiratory Rate 13 13 12 Blood Pressure 73/49 L 78/52 L 75/48 L Pulse Oximetry 98 99 98 01/25/18 15:39 01/25/18 15:52 01/25/18 16:00 Temperature Pulse Rate 81 80 Respiratory Rate 16 16 Blood Pressure 76/52 L 81/53 L Pulse Oximetry 100 99 99 01/25/18 16:45 01/25/18 20:00 01/25/18 20:10 Temperature 99.5 F Pulse Rate 82 Respiratory Rate 16 16 20 Blood Pressure 106/67 Pulse Oximetry 99 100 100 01/25/18 20:12 01/26/18 00:00 01/26/18 00:06 Temperature 100.1 F H Pulse Rate 100 H 86 85 Respiratory Rate 20 16 18 Blood Pressure 137/66 Pulse Oximetry 97 98 01/26/18 04:00 01/26/18 04:30 01/26/18 04:55 Temperature 98.4 F Pulse Rate 76 78 Respiratory Rate 16 17 Blood Pressure 79/51 L 126/76 Pulse Oximetry 97 98 Intake & Output 01/25/18 01/26/18 01/26/18 18:59 06:59 18:59 Intake Total 1660 / 1660 863 / 863 Output Total 2200 / 2200 1800 / 1800 Balance -540 / -540 -937 / -937 Weight 100 kg Intake: IV 1400 / 1400 250 / 250 Precedex Inj 200 MCG In NS Inj 50 / 50 50 / 50 48 ML @ 0.2 MCG/KG/HR 5 mls/hr IV.CONT TITRATE PRN Rx#: [id number] Versed Inj 50 mg In 50 ml @ 2 50 / 50 MG/HR 2 mls/hr IV.CONT TITRATE PRN Rx#:[id number] Diprivan 1000 mg/100 ml Inj 1, 100 / 100 000 mg In 100 ml @ 5 MCG/KG/MIN 2.994 mls/hr IV.CONT TITRATE PRN Rx#:[id number] Zosyn 4.5 GM Premix 4.5 gm In 200 / 200 200 / 200 100 ml @ 200 mls/hr IV.SIG Q6H MANUEL Rx#:[id number] NS Inj 1,000 ML @ Wide Open IV. 1000 / 1000 SIG BOLUS ONE Rx#:[id number] Tube Feeding 260 / 260 363 / 363 Water Bolus Amount 250 / 250 Output: Urine Amount (Catheter) 2200 / 2200 1800 / 1800 Straight 2200 / 2200 1800 / 1800 Other: Date of Last Bowel Movement 01/22/18 01/22/18 # Bowel Movements 0 Result Diagrams: 01/26/18 04:09 01/26/18 04:09 Objective Remarks: GENERAL: Intubated, sedated SKIN: Warm, diaphoretic. No petechia or rash HEAD: Atraumatic. Normocephalic. EYES: PERRL ENT: Orotracheally intubated, thick tenacious secretions NECK: Trachea midline. No JVD. CARDIOVASCULAR: Regular rate and rhythm. No murmur RESPIRATORY: Clear to auscultation bilaterally GASTROINTESTINAL: Abdomen soft, non-tender, non-distended. MUSCULOSKELETAL: 1+ extremity edema. NEUROLOGICAL: GCS 8T ([id number]), RASS -1 Assessment and Plan - Assessment and Plan Plan: 1. Altered mental status/toxic metabolic encephalopathy secondary to elevated ammonia and delirium tremens. 2. Acute respiratory failure, MRSA in sputum 3. Cirrhosis of the liver secondary to ETOH abuse, Hepatic encephalopathy 4. 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 5. Hypertension. 6. Diabetes mellitus hemoglobin A1c 6.0. 7. Ongoing abuse/EtOH 8. History of cannabinoids use 9. Hypoalbuminemia 10. Esophageal varices status post banding by GI 11. Elevated BMI Neuro/Psych: Currently on only fentanyl/precedex, continue to wean as able Daily sedation vacation Continue PO lactulose and rifaximin, trend ammonia (69 today), lactulose enema CT brain 01/20: No acute intracranial findings CV: Monitor HR and BP keep MAP>65mmHg Hold lisinopril due to elevated creat (see below) Continue amlodipine 5 mg daily, propranolol 20 mg twice daily, PRN clonidine 0.1 mg every 6 hours Continue pravastatin 40 mg daily for hyperlipidemia BP low overnight, may be related to sedation regimen Resp: PRVC 16/550///40, ventilator bundle Albuterol/ipratropium aerosols every 4 hours with albuterol aerosols every 2 hours as needed dyspnea. Bronchoscopy today Spontaneous breathing trials, would like to avoid trach if possible GI: Status post EGD on 01/16/2018 which showed grade 2 esophageal varices, status post banding x4. Abdominal ultrasound on 01/15/2018 showed no evidence of significant ascites. On tube feeds-Glucerna 1.5 with goal rate 50 ml/hr Pantoprazole 40 m IV twice daily for GI prophylaxis On lactulose 30 cc QID and Xifaxan 550 mg twice daily. Ammonia level 80s. Patient did not have a BM yesterday or today, will give lactulose enema x 1 and a 1 time dose of Relistor : Monitor renal function, creat plateaued, resume home dose of bumex Electrolyte replacement per protocol Endo: Sliding scale insulin with Accu-Cheks every 6 hours to maintain euglycemia Hemoglobin A1c was 6.0 Heme: Monitor CBC ID: Continue Vanco, Zosyn, now on day #5, anticipate treating for 1 week-10 days total Sputum cx 01/19: MRSA Blood cultures negative to date Access -Utilize peripheral IV. Prophylaxis -GI-pantoprazole - DVT SCD/ lovenox - 01/19 Doppler US RUE: Positive for nonocclusive deep venous thrombosis in the right mid brachial vein. Will get follow up scan on Saturday to look for propagation. Level 2 follow up To help prompt me to consider important information that might be impacting today's encounter and assessment, information from prior notes written by myself or my colleagues may have been "brought forward" into today's note. My signature on this note, however, is an attestation that I personally performed the exam, history, and/or decision-making noted today, and, unless otherwise indicated, the interactions with patient, family, and staff as well as the review of records all occurred today. I also attest that the listed assessment and stated plan reflect my best clinical judgment today based on the combination of historical information, prior notes, and today's exam/ interactions. Code Status: Full
[2018-01-26] MEDS: Multivit/Folic Acid/Minerals Chewable Tablets CHEW SCH (09:14)
[2018-01-26] MEDS: rifAXIMin 550 MG Tablet PO SCH ×2 (09:14→20:21)
[2018-01-26] MEDS: Senna/Docusate Sodium 8.6/50 MG Tablet PO SCH ×2 (09:14→20:20)
[2018-01-26] MEDS: amLODIPine 5 MG Tablet PO SCH (09:14)
[2018-01-26] MEDS: Pantoprazole Inj 40 MG Vial IV.PUSH SCH ×2 (09:14→20:20)
[2018-01-26] MEDS: Chlorhexidine 0.12% Oral Kit 15 ML UDC OROPHARYNG SCH ×2 (09:14→20:20)
[2018-01-26] MEDS ORDERED: Methylnaltrexone Inj 12 MG/0.6 ML Vial SQ ONE (10:00)
--- NOTE | 2018-01-26 10:14 | P.PCN ---
Date of procedure: 01/26/18 Pre-op diagnosis: acute hypoxic respiratory failure Post-op diagnosis: same Procedure: Fiberoptic bronchoscopy Patient was identified by armband prior to procedure and ventilator was placed on 100% FiO2. Time out taken. Patient was appropriately sedated with propofol, 1 mg/kg. Please refer to MAR for dosages. Bronchoscope introduced into patient' s endotracheal tube. Endotracheal tube was positioned at 25 cm at the teeth and appeared to be above the lorenzo. Upon visualization of the lorenzo, a large amount of thick tenacious sputum was suctioned. Right mainstem bronchus was identified first with landmarks and sputum was again suctioned. Left mainstem bronchus was intubated with bronchoscope and a small amount of thin sputum was suctioned. Airway appeared normal. No lesions were identified. There were no suction injuries identified but sputum from in-line suction was noted to be blood-tinged following the procedure. Patient tolerated procedure well without desaturation. Continue with ventilatory support with current settings. Chest x- ray to be obtained stat. Aggressive pulmonary hygiene. Surgeon: Tennille Garcia Pathology: none sent Condition: stable Disposition: ICU
--- NOTE | 2018-01-26 10:59 | XR ---
EXAM DATE: 01/26/2018 10:46 AM EST AGE/SEX: 52 years / Male INDICATIONS: Shortness of breath. CLINICAL DATA: This is the patient's subsequent encounter. Patient reports that signs and symptoms h ave been present for 1 week and indicates a pain score of Nonresponsive. MEDICAL/SURGICAL HISTORY: Hypertension. Diabetes. None. COMPARISON: [facility] [place], CHEST 1V SINGLE AP, 01/23/2018. . FINDINGS: AP upright portable view of the chest since demonstrates an endotracheal tube at the distal aspect of the clavicles and a nasogastric tube which appears to have been retracted and is now seen within the proximal esophagus with the proximal port overlying the cervical spine. Recommend retraction and rep lacement. Lungs are hypoinflated with a new area of linear airspace opacity involving the left hemithorax consi stent with atelectasis. CONCLUSION: Endotracheal tube appears appropriate in position, however, the nasogastric tube has been significant ly retracted and the proximal port is now seen overlying the cervical spine. Recommend removal and re placement. Atelectasis within the inferior left hemithorax. Electronically signed by: Uzma Kelly MD 01/26/2018 10:58 AM EST
[2018-01-26] MEDS ORDERED: Water Sterile for Irr Bot 700 ML, Lactulose Liq 300 ML RECTAL ONE ×2 (11:00)
--- NOTE | 2018-01-26 11:20 | P.PNFP ---
Subjective Interval history: Patient continues to be intubated and sedated. No acute events overnight. Patient raised eyebrows when name called, no other response to touch or auditory stimulation. Nurse reports pt will need readjustment of feeding tube. <Mele Recinos D - 01/26/18 11:53> Results - Labs Result diagrams: 01/28/18 05:53 01/28/18 05:53 <Kusum Weiss R - 01/28/18 11:21> Abnormal lab results 01/27/18 01/28/18 01/28/18 Range/Units 23:58 05:53 05:53 RBC 4.02 L (4.50-5.90) mil/mm3 Hgb 10.3 L (13.0-17.0) gm/dL Hct 31.8 L (39.0-51.0) % MCV 79.1 L (80.0-100.0) fL MCH 25.6 L (27.0-34.0) pg RDW 18.3 H (11.6-17.2) % Plt Count 81 L (150-450) th/mm3 Neut % (Auto) 74.9 H (16.0-70.0) % Lymph % (Auto) 7.2 L (9.0-44.0) % Potter % (Auto) 15.1 H (0.0-8.0) % Lymph # (Auto) 0.7 L (1.0-4.8) th/mm3 Potter # (Auto) 1.4 H (0.0-0.9) th/mm3 Seg Neuts % (Manual) 77 H (16-70) % Band Neuts % (Manual) 9 H (0-6) % Lymphocytes % (Manual) 6 L (9-44) % Abs Neuts (Manual) 8.2 H (1.8-7.7) th/mm3 Nucleated RBCs/100 WBC 1 H (0-0) /100 WBC Platelet Estimate Low L (Normal) Sodium 151 H (136-145) meq/L Chloride 114 H (98-107) meq/L BUN 19 H (7-18) mg/dL Estimated GFR 71 L (>89) mL/min POC Glucose 121 H (68-110) mg/dl Random Glucose 115 H (74-106) mg/dL AST 100 H (15-37) U/L Alkaline Phosphatase 152 H (45-117) U/L Ammonia (11-32) mcmol/L Albumin 2.5 L (3.4-5.0) g/dL 01/28/18 01/28/18 01/28/18 Range/Units 06:04 08:50 11:07 RBC (4.50-5.90) mil/mm3 Hgb (13.0-17.0) gm/dL Hct (39.0-51.0) % MCV (80.0-100.0) fL MCH (27.0-34.0) pg RDW (11.6-17.2) % Plt Count (150-450) th/mm3 Neut % (Auto) (16.0-70.0) % Lymph % (Auto) (9.0-44.0) % Potter % (Auto) (0.0-8.0) % Lymph # (Auto) (1.0-4.8) th/mm3 Potter # (Auto) (0.0-0.9) th/mm3 Seg Neuts % (Manual) (16-70) % Band Neuts % (Manual) (0-6) % Lymphocytes % (Manual) (9-44) % Abs Neuts (Manual) (1.8-7.7) th/mm3 Nucleated RBCs/100 WBC (0-0) /100 WBC Platelet Estimate (Normal) Sodium (136-145) meq/L Chloride (98-107) meq/L BUN (7-18) mg/dL Estimated GFR (>89) mL/min POC Glucose 111 H 122 H (68-110) mg/dl Random Glucose (74-106) mg/dL AST (15-37) U/L Alkaline Phosphatase (45-117) U/L Ammonia 46 H (11-32) mcmol/L Albumin (3.4-5.0) g/dL Short CBC 01/28/18 Range/Units 05:53 WBC 9.5 (4.0-11.0) th/mm3 Hgb 10.3 L (13.0-17.0) gm/dL Hct 31.8 L (39.0-51.0) % Plt Count 81 L (150-450) th/mm3 BMP 01/28/18 05:53 Sodium 151 H Potassium 4.0 Chloride 114 H Carbon Dioxide 28.5 BUN 19 H Creatinine 1.09 Calcium 8.8 Liver Function 01/28/18 Range/Units 05:53 Total Bilirubin 0.9 (0.2-1.0) mg/dL AST 100 H (15-37) U/L ALT 27 (12-78) U/L Alkaline Phosphatase 152 H (45-117) U/L Albumin 2.5 L (3.4-5.0) g/dL <Kusum Weiss R - 01/28/18 11:21> Abnormal lab results 01/25/18 01/26/18 01/26/18 Range/Units 23:11 04:09 04:09 RBC 3.46 L (4.50-5.90) mil/mm3 Hgb 9.0 L (13.0-17.0) gm/dL Hct 27.2 L (39.0-51.0) % MCV 78.7 L (80.0-100.0) fL MCH 25.9 L (27.0-34.0) pg RDW 17.7 H (11.6-17.2) % Plt Count 67 L (150-450) th/mm3 Neut % (Auto) 72.6 H (16.0-70.0) % Lymph % (Auto) 7.6 L (9.0-44.0) % Potter % (Auto) 16.6 H (0.0-8.0) % Lymph # (Auto) 0.4 L (1.0-4.8) th/mm3 Potter # (Auto) 1.0 H (0.0-0.9) th/mm3 Platelet Estimate Low L (Normal) APTT (23.4-31.7) sec Sodium 146 H (136-145) meq/L Chloride 112 H (98-107) meq/L BUN 24 H (7-18) mg/dL Creatinine 2.35 H (0.60-1.30) mg/dL Estimated GFR 29 L (>89) mL/min POC Glucose 129 H (68-110) mg/dl Random Glucose 146 H (74-106) mg/dL Calcium 7.7 L (8.5-10.1) mg/dL AST 57 H (15-37) U/L Alkaline Phosphatase 152 H (45-117) U/L Ammonia (11-32) mcmol/L Total Protein 6.2 L (6.4-8.2) g/dL Albumin 2.0 L (3.4-5.0) g/dL 01/26/18 01/26/18 01/26/18 Range/Units 04:09 04:09 05:40 RBC (4.50-5.90) mil/mm3 Hgb (13.0-17.0) gm/dL Hct (39.0-51.0) % MCV (80.0-100.0) fL MCH (27.0-34.0) pg RDW (11.6-17.2) % Plt Count (150-450) th/mm3 Neut % (Auto) (16.0-70.0) % Lymph % (Auto) (9.0-44.0) % Potter % (Auto) (0.0-8.0) % Lymph # (Auto) (1.0-4.8) th/mm3 Potter # (Auto) (0.0-0.9) th/mm3 Platelet Estimate (Normal) APTT 38.0 H (23.4-31.7) sec Sodium (136-145) meq/L Chloride (98-107) meq/L BUN (7-18) mg/dL Creatinine (0.60-1.30) mg/dL Estimated GFR (>89) mL/min POC Glucose 121 H (68-110) mg/dl Random Glucose (74-106) mg/dL Calcium (8.5-10.1) mg/dL AST (15-37) U/L Alkaline Phosphatase (45-117) U/L Ammonia 69 H (11-32) mcmol/L Total Protein (6.4-8.2) g/dL Albumin (3.4-5.0) g/dL Short CBC 01/26/18 Range/Units 04:09 WBC 5.7 (4.0-11.0) th/mm3 Hgb 9.0 L (13.0-17.0) gm/dL Hct 27.2 L (39.0-51.0) % Plt Count 67 L (150-450) th/mm3 BMP 01/26/18 04:09 Sodium 146 H Potassium 3.7 Chloride 112 H Carbon Dioxide 23.4 BUN 24 H Creatinine 2.35 H Calcium 7.7 L Liver Function 01/26/18 Range/Units 04:09 Total Bilirubin 0.7 (0.2-1.0) mg/dL AST 57 H (15-37) U/L ALT 15 (12-78) U/L Alkaline Phosphatase 152 H (45-117) U/L Albumin 2.0 L (3.4-5.0) g/dL <Mele Recinos - 01/26/18 11:20> - Imaging Impressions Chest X-Ray 01/26/18 09:58 CONCLUSION: Endotracheal tube appears appropriate in position, however, the nasogastric tube has been significantly retracted and the proximal port is now seen overlying the cervical spine. Recommend removal and replacement. Atelectasis within the inferior left hemithorax. <Mele Recinos - 01/26/18 11:20> Physical Exam Vital signs: Vital Signs 01/27/18 11:31 01/27/18 12:00 01/27/18 12:30 Temperature 98.6 F Pulse Rate 80 79 78 Respiratory Rate 41 H 33 H 30 H Blood Pressure 122/70 107/66 105/62 Pulse Oximetry 99 97 99 01/27/18 13:00 01/27/18 13:01 01/27/18 13:30 Temperature Pulse Rate 88 87 82 Respiratory Rate 24 24 24 Blood Pressure 108/63 109/69 Pulse Oximetry 99 100 98 01/27/18 14:00 01/27/18 14:30 01/27/18 15:00 Temperature Pulse Rate 78 74 69 Respiratory Rate 24 23 25 H Blood Pressure 103/65 108/69 103/67 Pulse Oximetry 100 99 99 01/27/18 15:31 01/27/18 16:00 01/27/18 17:00 Temperature 98.8 F Pulse Rate 92 H 83 120 H Respiratory Rate Blood Pressure 157/89 H 140/83 179/96 H Pulse Oximetry 81 L 96 97 01/27/18 17:15 01/27/18 17:30 01/27/18 18:00 Temperature Pulse Rate 133 H 132 H 128 H Respiratory Rate 23 27 H 18 Blood Pressure 156/93 H 141/89 H 146/95 H Pulse Oximetry 97 97 99 01/27/18 18:30 01/27/18 19:00 01/27/18 19:30 Temperature Pulse Rate 100 H 104 H 108 H Respiratory Rate 23 27 H 24 Blood Pressure 141/92 H 153/77 H 158/105 H Pulse Oximetry 98 98 97 01/27/18 20:00 01/27/18 20:30 01/27/18 20:40 Temperature Pulse Rate 109 H 111 H 113 H Respiratory Rate 35 H 26 H 28 H Blood Pressure 171/94 H 167/90 H Pulse Oximetry 97 97 98 01/27/18 21:00 01/27/18 21:30 01/27/18 22:00 Temperature Pulse Rate 115 H 118 H 121 H Respiratory Rate 27 H 30 H 31 H Blood Pressure 175/96 H 166/92 H 150/110 H Pulse Oximetry 96 01/27/18 22:15 01/27/18 22:30 01/27/18 23:00 Temperature Pulse Rate 117 H 120 H 135 H Respiratory Rate 23 31 H 34 H Blood Pressure 153/84 H 171/97 H 171/122 H Pulse Oximetry 98 96 100 01/27/18 23:31 01/27/18 23:42 01/27/18 23:50 Temperature Pulse Rate 124 H 119 H 115 H Respiratory Rate 25 H 26 H 27 H Blood Pressure 200/95 H 186/64 H 176/81 H Pulse Oximetry 95 97 98 01/28/18 00:00 01/28/18 00:05 01/28/18 00:11 Temperature Pulse Rate 112 H 110 H 110 H Respiratory Rate 29 H 25 H 27 H Blood Pressure 169/78 H 161/69 H 167/82 H Pulse Oximetry 96 97 92 L 01/28/18 00:15 01/28/18 00:25 01/28/18 00:30 Temperature Pulse Rate 109 H 114 H 105 H Respiratory Rate 21 42 H 29 H Blood Pressure 136/91 H 141/86 H 137/75 Pulse Oximetry 85 L 97 01/28/18 01:00 01/28/18 01:05 01/28/18 01:30 Temperature Pulse Rate 110 H 105 H 116 H Respiratory Rate 42 H 27 H 28 H Blood Pressure 156/74 H 157/105 H Pulse Oximetry 98 96 81 L 01/28/18 02:00 01/28/18 02:31 01/28/18 03:00 Temperature Pulse Rate 110 H 114 H 115 H Respiratory Rate 32 H 28 H 30 H Blood Pressure 162/70 H 93/53 L 176/92 H Pulse Oximetry 91 L 75 L 88 L 01/28/18 03:30 01/28/18 04:00 01/28/18 04:21 Temperature Pulse Rate 117 H 115 H 114 H Respiratory Rate 26 H 36 H 28 H Blood Pressure 182/82 H 184/81 H Pulse Oximetry 99 01/28/18 08:00 01/28/18 10:03 Temperature Pulse Rate Respiratory Rate Blood Pressure Pulse Oximetry 99 97 Intake & Output 01/27/18 01/28/18 01/28/18 18:59 06:59 18:59 Intake Total 52.2 / 52.2 250 / 250 Output Total 900 / 900 Balance -847.8 / -847.8 250 / 250 Weight 102.5 kg Intake: IV 52.2 / 52.2 250 / 250 Precedex Inj 1,000 MCG In NS 250 / 250 Inj 240 ML @ 0.2 MCG/KG/HR 5 mls/hr IV.CONT TITRATE PRN Rx#: [id number] fentaNYL 10 mcg/mL Premix Drip 52.2 / 52.2 2,500 mcg In 250 ml @ 50 MCG/HR 5 mls/hr IV.SIG TITRATE PRN Rx #:[id number] Output: Urine Amount (Catheter) 900 / 900 Straight 900 / 900 Other: # Incontinent Voids 1 2 Date of Last Bowel Movement 01/27/18 01/27/18 01/28/18 # Incontinent Bowel Movements 1 <Kusum Weiss R - 01/28/18 11:21> Vital Signs 01/25/18 11:21 01/25/18 11:30 01/25/18 12:00 Temperature Pulse Rate 85 85 81 Respiratory Rate 16 16 16 Blood Pressure 99/62 L 99/63 L Pulse Oximetry 99 99 01/25/18 12:30 01/25/18 13:00 01/25/18 13:30 Temperature Pulse Rate 80 90 93 H Respiratory Rate 16 16 18 Blood Pressure 100/63 112/70 115/70 Pulse Oximetry 99 100 100 01/25/18 13:37 01/25/18 14:00 01/25/18 14:27 Temperature Pulse Rate 91 H Respiratory Rate 18 18 14 Blood Pressure 107/60 Pulse Oximetry 100 97 97 01/25/18 14:30 01/25/18 15:00 01/25/18 15:06 Temperature Pulse Rate 92 H 92 H 91 H Respiratory Rate 11 L 8 L 8 L Blood Pressure 104/65 91/55 L Pulse Oximetry 96 99 01/25/18 15:30 01/25/18 15:32 01/25/18 15:33 Temperature Pulse Rate 86 85 85 Respiratory Rate 13 13 12 Blood Pressure 73/49 L 78/52 L 75/48 L Pulse Oximetry 98 99 98 01/25/18 15:39 01/25/18 15:52 01/25/18 16:00 Temperature Pulse Rate 81 80 Respiratory Rate 16 16 Blood Pressure 76/52 L 81/53 L Pulse Oximetry 100 99 99 01/25/18 16:45 01/25/18 20:00 01/25/18 20:10 Temperature 99.5 F Pulse Rate 82 Respiratory Rate 16 16 20 Blood Pressure 106/67 Pulse Oximetry 99 100 100 01/25/18 20:12 01/26/18 00:00 01/26/18 00:06 Temperature 100.1 F H Pulse Rate 100 H 86 85 Respiratory Rate 20 16 18 Blood Pressure 137/66 Pulse Oximetry 97 98 01/26/18 02:30 01/26/18 02:46 01/26/18 02:49 Temperature Pulse Rate 81 80 79 Respiratory Rate 16 16 16 Blood Pressure 78/50 L 78/51 L Pulse Oximetry 97 97 97 01/26/18 02:51 01/26/18 03:00 01/26/18 03:30 Temperature Pulse Rate 85 80 78 Respiratory Rate 16 16 16 Blood Pressure 81/51 L 84/50 L 82/50 L Pulse Oximetry 100 97 97 01/26/18 03:41 01/26/18 03:49 01/26/18 04:00 Temperature 98.4 F Pulse Rate 76 80 76 Respiratory Rate 16 16 16 Blood Pressure 80/53 L 103/61 79/51 L Pulse Oximetry 97 99 97 01/26/18 04:14 01/26/18 04:30 01/26/18 04:31 Temperature Pulse Rate 77 82 Respiratory Rate 16 17 Blood Pressure 95/59 L 126/76 126/76 Pulse Oximetry 98 100 01/26/18 04:55 01/26/18 05:00 01/26/18 05:30 Temperature Pulse Rate 78 102 H 85 Respiratory Rate 17 27 H 17 Blood Pressure 111/69 103/64 Pulse Oximetry 98 99 93 L 01/26/18 06:00 01/26/18 06:30 01/26/18 07:00 Temperature Pulse Rate 84 78 81 Respiratory Rate 16 16 16 Blood Pressure 94/58 L 91/54 L 115/69 Pulse Oximetry 99 97 98 01/26/18 07:30 01/26/18 07:40 01/26/18 08:00 Temperature Pulse Rate 90 100 H 112 H Respiratory Rate 16 18 22 Blood Pressure 125/76 146/83 H Pulse Oximetry 98 99 98 01/26/18 08:30 01/26/18 09:00 01/26/18 09:30 Temperature Pulse Rate 110 H 109 H 105 H Respiratory Rate 16 16 16 Blood Pressure 122/73 108/61 102/60 Pulse Oximetry 99 96 96 01/26/18 09:41 01/26/18 10:00 01/26/18 10:01 Temperature Pulse Rate 100 H 102 H 103 H Respiratory Rate 16 29 H 51 H Blood Pressure 98/54 L 105/59 L Pulse Oximetry 99 97 97 01/26/18 10:18 01/26/18 10:30 01/26/18 10:37 Temperature Pulse Rate 97 H Respiratory Rate 20 17 Blood Pressure 96/58 L Pulse Oximetry 100 99 98 01/26/18 10:59 01/26/18 11:00 Temperature Pulse Rate 98 H Respiratory Rate 16 Blood Pressure 93/57 L Pulse Oximetry 94 L Intake & Output 01/25/18 01/26/18 01/26/18 18:59 06:59 18:59 Intake Total 1660 / 1660 863 / 863 Output Total 2200 / 2200 1800 / 1800 Balance -540 / -540 -937 / -937 Weight 100 kg Intake: IV 1400 / 1400 250 / 250 Precedex Inj 200 MCG In NS Inj 50 / 50 50 / 50 48 ML @ 0.2 MCG/KG/HR 5 mls/hr IV.CONT TITRATE PRN Rx#: [id number] Versed Inj 50 mg In 50 ml @ 2 50 / 50 MG/HR 2 mls/hr IV.CONT TITRATE PRN Rx#:[id number] Diprivan 1000 mg/100 ml Inj 1, 100 / 100 000 mg In 100 ml @ 5 MCG/KG/MIN 2.994 mls/hr IV.CONT TITRATE PRN Rx#:[id number] Zosyn 4.5 GM Premix 4.5 gm In 200 / 200 200 / 200 100 ml @ 200 mls/hr IV.SIG Q6H MANUEL Rx#:[id number] NS Inj 1,000 ML @ Wide Open IV. 1000 / 1000 SIG BOLUS ONE Rx#:[id number] Tube Feeding 260 / 260 363 / 363 Water Bolus Amount 250 / 250 Output: Urine Amount (Catheter) 2200 / 2200 1800 / 1800 Straight 2200 / 2200 1800 / 1800 Other: Date of Last Bowel Movement 01/22/18 01/22/18 # Bowel Movements 0 <Phoenix Recinosly D - 01/26/18 11:20> Narrative: GENERAL: 52-year-old male currently orotracheally intubated SKIN: Warm and dry. No petechia or rash HEAD: Atraumatic. Normocephalic. ENT: No nasal bleeding or discharge. NECK: Trachea midline. No JVD. CARDIOVASCULAR: Regular rate and rhythm. S1, S2 no S4. No murmur RESPIRATORY: B/l equa air entry. Coarse breath sound appreciated anteriorly. GASTROINTESTINAL: Abdomen soft, non-tender, slightly distended. MUSCULOSKELETAL: Extremities without clubbing, cyanosis, or edema. No obvious deformities. +2 PD pulses BL NEUROLOGICAL: Intubated and sedated. No spontaneous eye opening <Mele Recinos D - 01/26/18 12:36> - Urinary Catheter Management 400 Cath placed during this visit: no <JosecindyKusum R - 01/28/18 11:21> no <CalzadoPhoenixMele D - 01/26/18 12:36> Straight Cath placed during this visit: no <OsshanikasKusum R - 01/28/18 11:21> no <CalzadoPhoenixMele D - 01/26/18 12:36> Assessment and Plan - Assessment (1) Alcohol withdrawal Code(s): F10.239 - Alcohol dependence with withdrawal, unspecified Status: Acute (2) Abdominal pain Code(s): R10.9 - Unspecified abdominal pain Status: Acute (3) Esophageal varices in cirrhosis Code(s): K74.60 - Unspecified cirrhosis of liver; I85.10 - Secondary esophageal varices without bleeding Status: Chronic (4) Hypertension Code(s): I10 - Essential (primary) hypertension Status: Chronic (5) Alcohol abuse Code(s): F10.10 - Alcohol abuse, uncomplicated Status: Chronic (6) Depression with anxiety Code(s): F41.8 - Other specified anxiety disorders Status: Chronic (7) Cough Code(s): R05 - Cough Status: Acute (8) Diabetes Code(s): E11.9 - Type 2 diabetes mellitus without complications Status: Chronic (9) Deep vein thrombosis (DVT) of brachial vein Code(s): I82.629 - Acute embolism and thrombosis of deep veins of unspecified upper extremity Status: Acute (10) Nutrition, metabolism, and development symptoms Code(s): R63.8 - Other symptoms and signs concerning food and fluid intake Status: Acute <AmilcarlorenzoKusum R - 01/28/18 11:21> (1) Alcohol withdrawal Code(s): F10.239 - Alcohol dependence with withdrawal, unspecified Status: Acute Plan: Patient with extensive alcohol abuse history for the past 30 years complicated by cirrhosis and esophageal variceal GI bleed. Currently receiving treatment for alcoholism at [facility] since July of this year. Reports he is taking a medication to help with his alcoholism however he has not been compliant and has been drinking at least 2 beers per day. Presented to the ED with severe abdominal pain, vomiting and nausea. CIWA protocol on hold Patient had worsening alcohol withdrawal symptoms and was transferred to critical care on 01/18. Instructor Of Spanish consulted, appreciate recommendations Patient placed on Precedex drip on 01/18 Patient placed n.p.o. Continue to monitor vital signs, continue to monitor ammonia and cmp Patient intubated on 01/19; Current PRVC peep 5 FiO2 40%; failed CPAP trial Currently on fentanyl 50 mL/hr and Precedex 0.2mcg/kg/hr for sedation/ analgesia while intubated. Continue vitamin bag daily times [address] brain: No acute abnormalities Ammonia level elevated at 70-> 81->98->72->59->56-> 82; today at 69 Lactulose 4 times daily Rifaximin 550 BID monitor ammonia levels (2) Abdominal pain Code(s): R10.9 - Unspecified abdominal pain Status: Acute Plan: Patient is a 52-year-old male with past medical history of alcoholism, cirrhosis and esophageal variceal GI bleed who presented to the ED with complaint of umbilical abdominal pain, nausea, and vomiting for the past 2 days. Patient reports tooth extraction 2 days prior to admission and malaise ( abdominal pain, vomiting x10 times with questionable blood in vomit which he attributes to tooth extraction however due to patient's history of upper GI bleed due to esophageal varices GI was consulted for further evaluation). On admission patient was slightly hypertensive however he was afebrile and no leukocytosis appreciated on CBC. CT abdomen: Showing edema of mesenteric, small metallic object in the transverse colon (which may have been part of patient's dental filling) and cirrhosis with portal hypertension and significant esophageal varices. Zofran for nausea Pain controlled with hydromorphone PRN which patient has had in the past without any adverse reactions; on hold Protonix IV twice daily Cipro for prophylaxis; discontinued 01/22 octreotide drip 25 mcg/h GI consulted for further recommendations, -Protonix, prophylactic antibiotic and octreotide drip -H&H stable and abdominal ultrasound negative for ascites -EGD procedure 01/16 showed: Esophageal varices grade 2 status post 4 band applied, biopsies taken from gastric antrum. Repeat EGD in 2 months. -vocal cord mass noted on intubation and ENT was consulted for further evaluation. -non-selective beta deena and follow up outpatient in two weeks. - GI has signed off ENT consulted Normal evaluation of vocal cords with laryngoscope neck CT no abnormal findings, no evidence of laryngeal lesion -will assess as needed (3) Esophageal varices in cirrhosis Code(s): K74.60 - Unspecified cirrhosis of liver; I85.10 - Secondary esophageal varices without bleeding Status: Chronic Plan: See plan above for abdominal pain (4) Hypertension Code(s): I10 - Essential (primary) hypertension Status: Chronic Plan: Resume home medications Clonidine PRN Continue to monitor blood pressure. (5) Alcohol abuse Code(s): F10.10 - Alcohol abuse, uncomplicated Status: Chronic Plan: See alcohol withdrawal plan above (6) Depression with anxiety Code(s): F41.8 - Other specified anxiety disorders Status: Chronic Plan: Resume home medications (7) Cough Code(s): R05 - Cough Status: Acute Plan: Patient with history of chronic cough and wheezing. -GI saw abnormal vocal cords for EGD so consulted Pulmonology and ENT -Pulmonology: recommended aerosol treatment and tessalon 200 mg TID and smoking cessation. Recommended follow up pulmonary function studies once acute illness treated. -ENT: CT neck was negative. No mass visualized with laryngoscopy. Can follow up OP for post nasal drip -Sputum culture: MRSA -Started on vancomycin and zosyn -BCX NG to-date -Chest x-ray: Support equipment in good position. Small areas of atelectasis in both lung bases. (8) Diabetes Code(s): E11.9 - Type 2 diabetes mellitus without complications Status: Chronic Plan: Sliding scale insulin low Accu-Cheks Hypoglycemia protocol (9) Deep vein thrombosis (DVT) of brachial vein Code(s): I82.629 - Acute embolism and thrombosis of deep veins of unspecified upper extremity Status: Acute Plan: 1111 venous Doppler study: DVT of right mid brachial vein Anticoagulation therapy complicated given possible GI bleed -will follow critical care recommendations of Lovenox 40 (10) Nutrition, metabolism, and development symptoms Code(s): R63.8 - Other symptoms and signs concerning food and fluid intake Status: Acute Plan: Electrolytes: Replete as needed Diet: tube feeds ( Glucerna 1.5) DVT prophylaxis: lovenox 40 <Mele Recinos D - 01/26/18 12:20> - Attending Attestation This patient was seen and examined. The assessment and plan was discussed with the resident physician and I am in agreement with continued medical care as documented in this encounter. KUSUM WEISS MD <Kusum Weiss - 01/28/18 11:21>
[2018-01-26] MEDS ORDERED: Vancomycin Inj 1,500 MG in Sodium Chlor 0.9% Inj 500 ML IV.SIG ONE (13:00)
[2018-01-26] MEDS: RESP: Acetylcysteine 10% 4 ML Neb NEB SCH ×2 (14:41→19:56)
--- NOTE | 2018-01-26 15:09 | P.PN ---
Subjective Interval history: sedated on vent sedated Physical Exam Vital signs: Vital Signs 01/25/18 15:30 01/25/18 15:32 01/25/18 15:33 Temperature Pulse Rate 86 85 85 Respiratory Rate 13 13 12 Blood Pressure 73/49 L 78/52 L 75/48 L Pulse Oximetry 98 99 98 01/25/18 15:39 01/25/18 15:52 01/25/18 16:00 Temperature Pulse Rate 81 80 Respiratory Rate 16 16 Blood Pressure 76/52 L 81/53 L Pulse Oximetry 100 99 99 01/25/18 16:45 01/25/18 20:00 01/25/18 20:10 Temperature 99.5 F Pulse Rate 82 Respiratory Rate 16 16 20 Blood Pressure 106/67 Pulse Oximetry 99 100 100 01/25/18 20:12 01/26/18 00:00 01/26/18 00:06 Temperature 100.1 F H Pulse Rate 100 H 86 85 Respiratory Rate 20 16 18 Blood Pressure 137/66 Pulse Oximetry 97 98 01/26/18 02:30 01/26/18 02:46 01/26/18 02:49 Temperature Pulse Rate 81 80 79 Respiratory Rate 16 16 16 Blood Pressure 78/50 L 78/51 L Pulse Oximetry 97 97 97 01/26/18 02:51 01/26/18 03:00 01/26/18 03:30 Temperature Pulse Rate 85 80 78 Respiratory Rate 16 16 16 Blood Pressure 81/51 L 84/50 L 82/50 L Pulse Oximetry 100 97 97 01/26/18 03:41 01/26/18 03:49 01/26/18 04:00 Temperature 98.4 F Pulse Rate 76 80 76 Respiratory Rate 16 16 16 Blood Pressure 80/53 L 103/61 79/51 L Pulse Oximetry 97 99 97 01/26/18 04:14 01/26/18 04:30 01/26/18 04:31 Temperature Pulse Rate 77 82 Respiratory Rate 16 17 Blood Pressure 95/59 L 126/76 126/76 Pulse Oximetry 98 100 01/26/18 04:55 01/26/18 05:00 01/26/18 05:30 Temperature Pulse Rate 78 102 H 85 Respiratory Rate 17 27 H 17 Blood Pressure 111/69 103/64 Pulse Oximetry 98 99 93 L 01/26/18 06:00 01/26/18 06:30 01/26/18 07:00 Temperature Pulse Rate 84 78 81 Respiratory Rate 16 16 16 Blood Pressure 94/58 L 91/54 L 115/69 Pulse Oximetry 99 97 98 01/26/18 07:30 01/26/18 07:40 01/26/18 08:00 Temperature Pulse Rate 90 100 H 112 H Respiratory Rate 16 18 22 Blood Pressure 125/76 146/83 H Pulse Oximetry 98 99 98 01/26/18 08:30 01/26/18 09:00 01/26/18 09:30 Temperature Pulse Rate 110 H 109 H 105 H Respiratory Rate 16 16 16 Blood Pressure 122/73 108/61 102/60 Pulse Oximetry 99 96 96 01/26/18 09:41 01/26/18 10:00 01/26/18 10:01 Temperature Pulse Rate 100 H 102 H 103 H Respiratory Rate 16 29 H 51 H Blood Pressure 98/54 L 105/59 L Pulse Oximetry 99 97 97 01/26/18 10:18 01/26/18 10:30 01/26/18 10:37 Temperature Pulse Rate 97 H Respiratory Rate 20 17 Blood Pressure 96/58 L Pulse Oximetry 100 99 98 01/26/18 10:59 01/26/18 11:00 01/26/18 11:30 Temperature Pulse Rate 98 H 100 H 93 H Respiratory Rate 16 17 16 Blood Pressure 93/57 L 94/57 L Pulse Oximetry 94 L 93 L 94 L 01/26/18 11:37 01/26/18 12:00 01/26/18 12:30 Temperature Pulse Rate 91 H 87 89 Respiratory Rate 16 16 16 Blood Pressure 93/56 L 101/60 Pulse Oximetry 94 L 95 01/26/18 12:54 01/26/18 13:00 01/26/18 14:43 Temperature Pulse Rate 84 100 H Respiratory Rate 16 16 18 Blood Pressure 88/52 L Pulse Oximetry 95 95 Intake & Output 01/25/18 01/26/18 01/26/18 18:59 06:59 18:59 Intake Total 1660 / 1660 863 / 863 Output Total 2200 / 2200 1800 / 1800 Balance -540 / -540 -937 / -937 Weight 100 kg Intake: IV 1400 / 1400 250 / 250 Precedex Inj 200 MCG In NS Inj 50 / 50 50 / 50 48 ML @ 0.2 MCG/KG/HR 5 mls/hr IV.CONT TITRATE PRN Rx#: [id number] Versed Inj 50 mg In 50 ml @ 2 50 / 50 MG/HR 2 mls/hr IV.CONT TITRATE PRN Rx#:[id number] Diprivan 1000 mg/100 ml Inj 1, 100 / 100 000 mg In 100 ml @ 5 MCG/KG/MIN 2.994 mls/hr IV.CONT TITRATE PRN Rx#:[id number] Zosyn 4.5 GM Premix 4.5 gm In 200 / 200 200 / 200 100 ml @ 200 mls/hr IV.SIG Q6H MANUEL Rx#:[id number] NS Inj 1,000 ML @ Wide Open IV. 1000 / 1000 SIG BOLUS ONE Rx#:[id number] Tube Feeding 260 / 260 363 / 363 Water Bolus Amount 250 / 250 Output: Urine Amount (Catheter) 2200 / 2200 1800 / 1800 Straight 2200 / 2200 1800 / 1800 Other: Date of Last Bowel Movement 01/22/18 01/22/18 01/22/18 # Bowel Movements 0 Narrative: GENERAL: 52-year-old male currently orotracheally intubated SKIN: Warm and dry. No petechia or rash HEAD: Atraumatic. Normocephalic. ENT: No nasal bleeding or discharge. NECK: Trachea midline. No JVD. CARDIOVASCULAR: Regular rate and rhythm. S1, S2 no S4. No murmur RESPIRATORY: B/l equa air entry. Coarse breath sound appreciated anteriorly. GASTROINTESTINAL: Abdomen soft, non-tender, slightly distended. MUSCULOSKELETAL: Extremities without clubbing, cyanosis, or edema. No obvious deformities. +2 PD pulses BL NEUROLOGICAL: Intubated and sedated. No spontaneous eye opening - Urinary Catheter Management Straight Cath placed during this visit: no 400 Cath placed during this visit: no Results - Labs CBC & Chem 7: 01/26/18 04:09 01/26/18 04:09 Laboratory Results - last 24 hr 01/25/18 01/26/18 01/26/18 23:11 04:09 04:09 WBC 5.7 RBC 3.46 L Hgb 9.0 L Hct 27.2 L MCV 78.7 L MCH 25.9 L MCHC 33.0 RDW 17.7 H Plt Count 67 L MPV 8.7 Prelim Diff (Auto) Slide review pending Neut % (Auto) 72.6 H Lymph % (Auto) 7.6 L Gordon % (Auto) 16.6 H Eos % (Auto) 2.8 Baso % (Auto) 0.4 Neut # (Auto) 4.2 Lymph # (Auto) 0.4 L Gordon # (Auto) 1.0 H Eos # (Auto) 0.2 Baso # (Auto) 0.0 WBC Differential . Diff Scan Auto diff confirmed Differential Comment . Platelet Estimate Low L Platelet Morphology Normal PT INR APTT Sodium 146 H Potassium 3.7 Chloride 112 H Carbon Dioxide 23.4 Anion Gap 11 BUN 24 H Creatinine 2.35 H Estimated GFR 29 L POC Glucose 129 H Random Glucose 146 H Calcium 7.7 L Magnesium 2.5 Total Bilirubin 0.7 AST 57 H ALT 15 Alkaline Phosphatase 152 H Ammonia Total Protein 6.2 L Albumin 2.0 L Random Vancomycin 22.1 01/26/18 01/26/18 01/26/18 04:09 04:09 05:40 WBC RBC Hgb Hct MCV MCH MCHC RDW Plt Count MPV Prelim Diff (Auto) Neut % (Auto) Lymph % (Auto) Gordon % (Auto) Eos % (Auto) Baso % (Auto) Neut # (Auto) Lymph # (Auto) Gordon # (Auto) Eos # (Auto) Baso # (Auto) WBC Differential Diff Scan Differential Comment Platelet Estimate Platelet Morphology PT 11.5 INR 1.1 APTT 38.0 H Sodium Potassium Chloride Carbon Dioxide Anion Gap BUN Creatinine Estimated GFR POC Glucose 121 H Random Glucose Calcium Magnesium Total Bilirubin AST ALT Alkaline Phosphatase Ammonia 69 H Total Protein Albumin Random Vancomycin Microbiology 01/21/18 09:17 Blood - Peripheral Aerobic Blood Culture - Final No growth in 5 days 01/21/18 09:17 Blood - Peripheral Anaerobic Blood Culture - Final No growth in 5 days 01/21/18 09:03 Blood - Peripheral Aerobic Blood Culture - Final No growth in 5 days 01/21/18 09:03 Blood - Peripheral Anaerobic Blood Culture - Final No growth in 5 days - Imaging Impressions Chest X-Ray 01/26/18 09:58 CONCLUSION: Endotracheal tube appears appropriate in position, however, the nasogastric tube has been significantly retracted and the proximal port is now seen overlying the cervical spine. Recommend removal and replacement. Atelectasis within the inferior left hemithorax. Assessment and Plan - Plan imp respiratory failure\ pna plan vent support antibx wean as tolerated
[2018-01-26] MEDS: Enoxaparin Inj 40 MG/0.4 ML Syringe SQ SCH (18:19)
--- NOTE | 2018-01-26 22:13 | XR ---
EXAM DATE: 01/26/2018 9:53 PM EST AGE/SEX: 52 years / Male INDICATIONS: OG tube placement. CLINICAL DATA: This is the patient's initial encounter. Patient reports that signs and symptoms have been present for 1 day and indicates a pain score of Nonresponsive. MEDICAL/SURGICAL HISTORY: Hypertension. Diabetes. None. COMPARISON: [facility] – [place], ABDOMEN 1V KUB, 01/16/2018. . FINDINGS: Limited quality exam. A gastric tube is in place with the tip in the right lower quadrant paraspinal region and the side-port projected over the spine. Very little gas seen in loops of bowel. The visua lized lower lungs are clear. CONCLUSION: Gastric tube tip and side-port project over the mid abdomen. Electronically signed by: Mynor Thompson MD 01/26/2018 10:11 PM EST
[2018-01-27] MEDS: Oral Hygiene Kit OROPHARYNG SCH ×4 (00:43→18:08)
[2018-01-27] MEDS: Insulin NovoLOG Aspart Correctional Sugar Inj SQ SCH ×4 (00:46→20:17)
[2018-01-27] MEDS: Dexmedetomidine Inj 200 MCG in Sodium Chlor 0.9% Inj 48 ML IV.CONT PRN ×2 (00:47→01:48)
[2018-01-27] MEDS: fentaNYL 10 mcg/mL Premix Drip 2,500 MCG/250 ML BAG IV.SIG PRN (01:22)
[2018-01-27] MEDS ORDERED: Dexmedetomidine Inj 200 MCG in Sodium Chlor 0.9% Inj 48 ML IV.CONT PRN (02:36)
[2018-01-27] MEDS ORDERED: Dexmedetomidine Inj 1,000 MCG in Sodium Chlor 0.9% Inj 240 ML IV.CONT PRN (02:45)
[2018-01-27] MEDS: RESP: Acetylcysteine 10% 4 ML Neb NEB SCH ×4 (02:53→20:43)
[2018-01-27] MEDS: Piperacil/Tazo 4.5 GM Premix 4.5 GM/100 ML BAG IV.SIG SCH (02:59)
[2018-01-27] MEDS: Benzonatate 100 MG Capsule PO SCH ×3 (03:00→20:17)
[2018-01-27] MEDS: Artificial Tears Opth Drops 15 ML Bottle EACH EYE SCH ×2 (05:08→17:10)
[2018-01-27 05:36] LABS: Baso % (Auto) 0.1 % (0.0-2.0); Eos # (Auto) 0.1 th/mm3 (0.0-0.4); Eos % (Auto) 0.8 % (0.0-4.0); Hematocrit 31.8 % (39.0-51.0); Hemoglobin 10.4 gm/dL (13.0-17.0); Lymph # (Auto) 0.3 th/mm3 (1.0-4.8); Lymph % (Auto) 3.3 % (9.0-44.0); Mean Corpuscular HGB Conc 32.7 % (32.0-36.0); Mean Corpuscular Hemoglobin 25.7 pg (27.0-34.0); Mean Corpuscular Volume 78.7 fL (80.0-100.0); Mean Platelet Volume 8.7 fL (7.0-11.0); Mono % (Auto) 10.4 % (0.0-8.0); Neut # (Auto) 8.4 th/mm3 (1.8-7.7); Neut % (Auto) 85.4 % (16.0-70.0); Platelet Count 64 th/mm3 (150-450); Red Blood Count 4.04 mil/mm3 (4.50-5.90); Red Cell Distribution Width 17.9 % (11.6-17.2); White Blood Count 9.8 th/mm3 (4.0-11.0)
[2018-01-27 06:04] LABS: Albumin 2.3 g/dL (3.4-5.0); Anion Gap 10 meq/L (5-15); Aspartate Aminotransferase 108 U/L (15-37); Blood Urea Nitrogen 26 mg/dL (7-18); Calcium 8.4 mg/dL (8.5-10.1); Carbon Dioxide 22.8 meq/L (21.0-32.0); Chloride 111 meq/L (98-107); Glomerular Filtration Rate 53 mL/min (>89); Glucose,Random 203 mg/dL (74-106); Magnesium 2.2 mg/dL (1.5-2.5); Potassium 3.8 meq/L (3.5-5.1); Sodium 144 meq/L (136-145)
[2018-01-27 06:05] LABS: Alanine Aminotransferase 23 U/L (12-78)
[2018-01-27 06:07] LABS: Alkaline Phosphatase 166 U/L (45-117); Total Protein 7.2 g/dL (6.4-8.2)
--- NOTE | 2018-01-27 07:25 | P.PNCC ---
Subjective Subjective Remarks/Hospital Course: The patient is a 52-year-old male with a past medical history of ETOH abuse, cirrhosis of liver secondary to alcohol, hypertension, diabetes mellitus, anxiety, depression, prior history of upper gastrointestinal bleed x2 due to esophageal varices. The patient was admitted under the family medicine team on 01/15/[address] for abdominal pain. A CT scan of the abdomen and pelvis showed a cirrhotic liver with evidence of portal hypertension and prominent gastroesophageal varices. No ascites noted. The patient also underwent an ultrasound of the abdomen, which showed no significant ascites. He was seen by GI service and underwent upper endoscopy on 01/16/2018 which showed grade 2 esophageal varices, status post banding x4, gastritis and hiatal hernia. The patient also had a CT scan of the chest on 01/16/2018 which showed mild infiltrates in the posterior lower lung hussein suggestive of atelectasis and nonspecific 1.5 cm lymph node in the anterior superior mediastinum. He is being followed by Dr. Maki from pulmonary service. Due to altered mental status and possible alcohol withdrawal he was transferred to ICU and critical care medicine was consulted for critical care management. He received Ativan 6-8 mg total along with Haldol and the patient remained restless and agitated. Most of the history was obtained from reviewing medical records as the patient is a poor historian. ABG was performed this morning on room air, which showed a pH of 7.44, CO2 41, PaO2 69, bicarbonate 27, saturation 91%. 01/19: Patient with worsening oxygenation status. Essentially unresponsive obtunded. Ammonia level is 98 this morning. Elective intubation. 01/20 Patient is intubated and sedated, afebrile. 01/21 Patient remains sedated with Fentnayl, Diprivan and Versed. T;100.5, CT brain yesterday no acute findings. 01/22: Remains intubated sedated Versed had been held since a.m. Remains unresponsive failed CPAP trial today due to tachypnea. Spontaneously moves lower extremities no spontaneous eye opening. Large amount of ET tube secretions reported. Sputum cx 01/19 MRSA 01/23: Remains sedated and intubated, some mild dyssynchrony with the vent during my exam. 01/24: Patient gets very agitated during sedation vacations, still requiring propofol/ versed/ fentanyl gtts. Temp is 99F, still diaphoretic on exam. 01/25: BUN/ creat trending up but urine output remains adequate. Patient's home med list includes bumex, will start diuresis today to see if this improves renal function. Of note, his home list also includes Fosrenal and mesalamine but it is unclear from previous records if patient has a h/o CKD or inflammatory bowel disease. 01/26: Creat plateaued and urine output much improved with dose of lasix yesterday, will restart home bumex dose. Propofol d/cd yesterday, versed currently on hold, precedex and fentanyl both at low doses. Copious thick secretions from ETT which are difficult to suction with in-line, will perform bedside bronch for pulmonary toilet. No contact info available for next of kin to obtain consent but patient will need this in preparation for extubation. 01/27: Patient had bronchoscopy performed yesterday, secretions are thinner and easier to suction as per RT. Balloon on ETT is sheared but patient is still receiving full tidal volumes. He is tolerating pressure support 10/5 at 40% this morning, would like to try to extubate today. Objective Vital Signs / I&O: Vital Signs 01/26/18 07:30 01/26/18 07:40 01/26/18 08:00 Temperature Pulse Rate 90 100 H 112 H Respiratory Rate 16 18 22 Blood Pressure 125/76 146/83 H Pulse Oximetry 98 99 98 01/26/18 08:30 01/26/18 09:00 01/26/18 09:30 Temperature Pulse Rate 110 H 109 H 105 H Respiratory Rate 16 16 16 Blood Pressure 122/73 108/61 102/60 Pulse Oximetry 99 96 96 01/26/18 09:41 01/26/18 10:00 01/26/18 10:01 Temperature Pulse Rate 100 H 102 H 103 H Respiratory Rate 16 29 H 51 H Blood Pressure 98/54 L 105/59 L Pulse Oximetry 99 97 97 01/26/18 10:18 01/26/18 10:30 01/26/18 10:37 Temperature Pulse Rate 97 H Respiratory Rate 20 17 Blood Pressure 96/58 L Pulse Oximetry 100 99 98 01/26/18 10:59 01/26/18 11:00 01/26/18 11:30 Temperature Pulse Rate 98 H 100 H 93 H Respiratory Rate 16 17 16 Blood Pressure 93/57 L 94/57 L Pulse Oximetry 94 L 93 L 94 L 01/26/18 11:37 01/26/18 12:00 01/26/18 12:30 Temperature Pulse Rate 91 H 87 89 Respiratory Rate 16 16 16 Blood Pressure 93/56 L 101/60 Pulse Oximetry 94 L 95 01/26/18 12:54 01/26/18 13:00 01/26/18 13:30 Temperature Pulse Rate 84 80 Respiratory Rate 16 16 16 Blood Pressure 88/52 L 85/52 L Pulse Oximetry 95 95 95 01/26/18 14:00 01/26/18 14:30 01/26/18 14:43 Temperature Pulse Rate 80 97 H 100 H Respiratory Rate 16 16 18 Blood Pressure 89/55 L 129/82 Pulse Oximetry 95 96 01/26/18 15:00 01/26/18 15:30 01/26/18 16:00 Temperature Pulse Rate 93 H 89 103 H Respiratory Rate 16 16 18 Blood Pressure 111/70 99/64 L 129/78 Pulse Oximetry 97 96 95 01/26/18 16:25 01/26/18 16:30 01/26/18 17:00 Temperature Pulse Rate 110 H 108 H Respiratory Rate 21 18 20 Blood Pressure 132/82 135/82 Pulse Oximetry 95 95 99 01/26/18 17:30 01/26/18 18:00 01/26/18 19:57 Temperature Pulse Rate 105 H 111 H 104 H Respiratory Rate 16 17 21 Blood Pressure 122/76 162/97 H Pulse Oximetry 97 100 01/26/18 20:00 01/26/18 20:32 01/26/18 23:27 Temperature 100.8 F H Pulse Rate 96 H 75 Respiratory Rate 16 16 16 Blood Pressure 113/69 Pulse Oximetry 100 98 01/27/18 00:00 01/27/18 01:53 01/27/18 02:55 Temperature 97.9 F Pulse Rate 74 68 Respiratory Rate 16 16 16 Blood Pressure 141/83 H Pulse Oximetry 97 98 01/27/18 04:00 01/27/18 04:06 Temperature 97.6 F Pulse Rate 65 Respiratory Rate 16 16 Blood Pressure 149/87 H Pulse Oximetry 97 99 Intake & Output 01/26/18 01/27/18 01/27/18 18:59 06:59 18:59 Intake Total 235 / 235 1265.1 / 1265.1 52.2 / 52.2 Output Total 2099 1650 / 1650 Balance -1865 / -1865 -384.9 / -384.9 52.2 / 52.2 Weight 107 kg Intake: IV 150 / 150 1222.1 / 1222.1 52.2 / 52.2 Precedex Inj 200 MCG In NS Inj 50 / 50 150 / 150 48 ML @ 0.2 MCG/KG/HR 5 mls/hr IV.CONT TITRATE PRN Rx#: [id number] Versed Inj 100 mg In 100 ml @ 2 7.1 / 7.1 MG/HR 2 mls/hr IV.CONT TITRATE PRN Rx#:[id number] Zosyn 4.5 GM Premix 4.5 gm In 100 / 100 300 / 300 100 ml @ 200 mls/hr IV.SIG Q6H MANUEL Rx#:[id number] Vancomycin Inj 1,500 MG In NS 515 / 515 Inj 500 ML @ 250 mls/hr IV.SIG ONCE ONE Rx#:[id number] fentaNYL 10 mcg/mL Premix Drip 250 / 250 52.2 / 52.2 2,500 mcg In 250 ml @ 50 MCG/HR 5 mls/hr IV.SIG TITRATE PRN Rx #:[id number] Tube Feeding 85 / 85 43 / 43 Output: Urine Amount (Catheter) 2099 1650 / 1650 Straight 2099 1650 / 1650 Other: Date of Last Bowel Movement 01/22/18 01/26/18 # Bowel Movements 1 0 Result Diagrams: 01/27/18 05:20 01/27/18 05:20 Objective Remarks: GENERAL: Intubated, sedated SKIN: Warm, dry HEAD: Atraumatic. Normocephalic. EYES: PERRL ENT: Orotracheally intubated, thin secretions NECK: Trachea midline. No JVD. CARDIOVASCULAR: Regular rate and rhythm. No murmur RESPIRATORY: Clear to auscultation bilaterally, strong cough GASTROINTESTINAL: Abdomen soft, non-tender, non-distended. MUSCULOSKELETAL: Trace extremity edema. NEUROLOGICAL: GCS 8T ([id number]), RASS -1 Assessment and Plan - Assessment and Plan Plan: 1. Altered mental status/toxic metabolic encephalopathy secondary to elevated ammonia and delirium tremens. 2. Acute respiratory failure, MRSA in sputum 3. Cirrhosis of the liver secondary to ETOH abuse, Hepatic encephalopathy 4. 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 5. Hypertension. 6. Diabetes mellitus hemoglobin A1c 6.0. 7. Ongoing abuse/EtOH 8. History of cannabinoids use 9. Hypoalbuminemia 10. Esophageal varices status post banding by GI 11. Elevated BMI Neuro/Psych: Currently on only fentanyl/precedex, hold fentanyl in preparation for extubation Daily sedation vacation Continue PO lactulose and rifaximin, trend ammonia (45 today) CT brain 01/20: No acute intracranial findings CV: Monitor HR and BP keep MAP>65mmHg Hold lisinopril due to elevated creat (see below), Continue amlodipine 5 mg daily, propranolol 20 mg twice daily, PRN clonidine 0.1 mg every 6 hours Continue pravastatin 40 mg daily for hyperlipidemia Resp: PRVC 16/550/03/15/39, ventilator bundle Albuterol/ipratropium aerosols every 4 hours with albuterol aerosols every 2 hours as needed dyspnea. Patient given mucomyst nebs x 24 hours starting yesterday, secretions thinner today, strong cough Attempt extubation today GI: Status post EGD on 01/16/2018 which showed grade 2 esophageal varices, status post banding x4. Abdominal ultrasound on 01/15/2018 showed no evidence of significant ascites. On tube feeds-Glucerna 1.5 with goal rate 50 ml/hr Pantoprazole 40 m IV twice daily for GI prophylaxis On lactulose 30 cc QID and Xifaxan 550 mg twice daily. Ammonia level 45. (+) BM after receiving Relistor yesterday : Monitor renal function, creat and urine output much improved, continue home dose of bumex Electrolyte replacement per protocol Endo: Sliding scale insulin with Accu-Cheks every 6 hours to maintain euglycemia Hemoglobin A1c was 6.0 Heme: Monitor CBC ID: Continue Vanco, Zosyn, now on day #6, d/c zosyn, check random vanco level tomorrow. Patient needs total of 7-10 days for treatment of MRSA pneumonia. Sputum cx 01/19: MRSA Blood cultures negative to date Access -Utilize peripheral IV. Prophylaxis - GI-pantoprazole - DVT SCD/ lovenox - 01/19 Doppler US RUE: Positive for nonocclusive deep venous thrombosis in the right mid brachial vein. Follow up scan today to assess for propagation. Level 2 follow up To help prompt me to consider important information that might be impacting today's encounter and assessment, information from prior notes written by myself or my colleagues may have been "brought forward" into today's note. My signature on this note, however, is an attestation that I personally performed the exam, history, and/or decision-making noted today, and, unless otherwise indicated, the interactions with patient, family, and staff as well as the review of records all occurred today. I also attest that the listed assessment and stated plan reflect my best clinical judgment today based on the combination of historical information, prior notes, and today's exam/ interactions. Code Status: Full
[2018-01-27] MEDS: Senna/Docusate Sodium 8.6/50 MG Tablet PO SCH ×2 (08:11→20:18)
[2018-01-27] MEDS: Multivit/Folic Acid/Minerals Chewable Tablets CHEW SCH (08:11)
[2018-01-27] MEDS: Pantoprazole Inj 40 MG Vial IV.PUSH SCH ×2 (08:11→21:02)
[2018-01-27] MEDS: rifAXIMin 550 MG Tablet PO SCH ×2 (08:12→20:18)
[2018-01-27] MEDS: Chlorhexidine 0.12% Oral Kit 15 ML UDC OROPHARYNG SCH ×2 (08:12→20:49)
[2018-01-27] MEDS: amLODIPine 5 MG Tablet PO SCH (08:20)
[2018-01-27 09:16] LABS: Platelet Morphology Normal (Normal)
--- NOTE | 2018-01-27 09:51 | US ---
EXAM DATE: 01/27/2018 9:44 AM EST AGE/SEX: 52 years / Male INDICATIONS: Right arm swelling. Follow up deep vein thrombosis right mid brachial vein. CLINICAL DATA: This is the patient's subsequent encounter. Patient reports that signs and symptoms h ave been present for 1 week and indicates a pain score of Nonresponsive. MEDICAL/SURGICAL HISTORY: . Diabetes. HTN. Depression. ETOH abuse. GI bleed. None. COMPARISON: [facility] – [place], [place] VENOUS DOPPLER ARM RIGHT, 01/19/2018. . FINDINGS: The vessels are compressible and augmentation response is documented. No filling defects a re seen. The flow is phasic with respiration. Other: None. CONCLUSION: The study is negative for upper extremity deep venous thrombosis. Electronically signed by: Sulaiman Storey MD 01/27/2018 9:50 AM EST
--- NOTE | 2018-01-27 12:24 | P.PNFP ---
Subjective Interval history: Patient seen and examined this morning. No acute events overnight. Patient started on CPAP this a.m., he is off drips and trial to be extubated today. <Mele Recinos D - 01/27/18 16:43> Results - Labs Result diagrams: 01/28/18 05:53 01/28/18 05:53 <Kusum Correia R - 01/28/18 12:33> Abnormal lab results 01/27/18 01/28/18 01/28/18 Range/Units 23:58 05:53 05:53 RBC 4.02 L (4.50-5.90) mil/mm3 Hgb 10.3 L (13.0-17.0) gm/dL Hct 31.8 L (39.0-51.0) % MCV 79.1 L (80.0-100.0) fL MCH 25.6 L (27.0-34.0) pg RDW 18.3 H (11.6-17.2) % Plt Count 81 L (150-450) th/mm3 Neut % (Auto) 74.9 H (16.0-70.0) % Lymph % (Auto) 7.2 L (9.0-44.0) % [place] % (Auto) 15.1 H (0.0-8.0) % Lymph # (Auto) 0.7 L (1.0-4.8) th/mm3 [place] # (Auto) 1.4 H (0.0-0.9) th/mm3 Seg Neuts % (Manual) 77 H (16-70) % Band Neuts % (Manual) 9 H (0-6) % Lymphocytes % (Manual) 6 L (9-44) % Abs Neuts (Manual) 8.2 H (1.8-7.7) th/mm3 Nucleated RBCs/100 WBC 1 H (0-0) /100 WBC Platelet Estimate Low L (Normal) Sodium 151 H (136-145) meq/L Chloride 114 H (98-107) meq/L BUN 19 H (7-18) mg/dL Estimated GFR 71 L (>89) mL/min POC Glucose 121 H (68-110) mg/dl Random Glucose 115 H (74-106) mg/dL AST 100 H (15-37) U/L Alkaline Phosphatase 152 H (45-117) U/L Ammonia (11-32) mcmol/L Albumin 2.5 L (3.4-5.0) g/dL 01/28/18 01/28/18 01/28/18 Range/Units 06:04 08:50 11:07 RBC (4.50-5.90) mil/mm3 Hgb (13.0-17.0) gm/dL Hct (39.0-51.0) % MCV (80.0-100.0) fL MCH (27.0-34.0) pg RDW (11.6-17.2) % Plt Count (150-450) th/mm3 Neut % (Auto) (16.0-70.0) % Lymph % (Auto) (9.0-44.0) % [place] % (Auto) (0.0-8.0) % Lymph # (Auto) (1.0-4.8) th/mm3 [place] # (Auto) (0.0-0.9) th/mm3 Seg Neuts % (Manual) (16-70) % Band Neuts % (Manual) (0-6) % Lymphocytes % (Manual) (9-44) % Abs Neuts (Manual) (1.8-7.7) th/mm3 Nucleated RBCs/100 WBC (0-0) /100 WBC Platelet Estimate (Normal) Sodium (136-145) meq/L Chloride (98-107) meq/L BUN (7-18) mg/dL Estimated GFR (>89) mL/min POC Glucose 111 H 122 H (68-110) mg/dl Random Glucose (74-106) mg/dL AST (15-37) U/L Alkaline Phosphatase (45-117) U/L Ammonia 46 H (11-32) mcmol/L Albumin (3.4-5.0) g/dL Short CBC 01/28/18 Range/Units 05:53 WBC 9.5 (4.0-11.0) th/mm3 Hgb 10.3 L (13.0-17.0) gm/dL Hct 31.8 L (39.0-51.0) % Plt Count 81 L (150-450) th/mm3 BMP 01/28/18 05:53 Sodium 151 H Potassium 4.0 Chloride 114 H Carbon Dioxide 28.5 BUN 19 H Creatinine 1.09 Calcium 8.8 Liver Function 01/28/18 Range/Units 05:53 Total Bilirubin 0.9 (0.2-1.0) mg/dL AST 100 H (15-37) U/L ALT 27 (12-78) U/L Alkaline Phosphatase 152 H (45-117) U/L Albumin 2.5 L (3.4-5.0) g/dL <Kusum Correia R - 01/28/18 12:33> Abnormal lab results 01/27/18 01/27/18 01/27/18 Range/Units 00:46 05:06 05:19 RBC (4.50-5.90) mil/mm3 Hgb (13.0-17.0) gm/dL Hct (39.0-51.0) % MCV (80.0-100.0) fL MCH (27.0-34.0) pg RDW (11.6-17.2) % Plt Count (150-450) th/mm3 Neut % (Auto) (16.0-70.0) % Lymph % (Auto) (9.0-44.0) % [place] % (Auto) (0.0-8.0) % Neut # (Auto) (1.8-7.7) th/mm3 Lymph # (Auto) (1.0-4.8) th/mm3 [place] # (Auto) (0.0-0.9) th/mm3 Platelet Estimate (Normal) Chloride (98-107) meq/L BUN (7-18) mg/dL Creatinine (0.60-1.30) mg/dL Estimated GFR (>89) mL/min POC Glucose 166 H 187 H (68-110) mg/dl Random Glucose (74-106) mg/dL Calcium (8.5-10.1) mg/dL Total Bilirubin (0.2-1.0) mg/dL AST (15-37) U/L Alkaline Phosphatase (45-117) U/L Ammonia 45 H (11-32) mcmol/L Albumin (3.4-5.0) g/dL 01/27/18 01/27/18 01/27/18 Range/Units 05:20 05:20 11:17 RBC 4.04 L (4.50-5.90) mil/mm3 Hgb 10.4 L (13.0-17.0) gm/dL Hct 31.8 L (39.0-51.0) % MCV 78.7 L (80.0-100.0) fL MCH 25.7 L (27.0-34.0) pg RDW 17.9 H (11.6-17.2) % Plt Count 64 L (150-450) th/mm3 Neut % (Auto) 85.4 H (16.0-70.0) % Lymph % (Auto) 3.3 L (9.0-44.0) % [place] % (Auto) 10.4 H (0.0-8.0) % Neut # (Auto) 8.4 H (1.8-7.7) th/mm3 Lymph # (Auto) 0.3 L (1.0-4.8) th/mm3 [place] # (Auto) 1.0 H (0.0-0.9) th/mm3 Platelet Estimate Low L (Normal) Chloride 111 H (98-107) meq/L BUN 26 H (7-18) mg/dL Creatinine 1.39 H (0.60-1.30) mg/dL Estimated GFR 53 L (>89) mL/min POC Glucose 229 H (68-110) mg/dl Random Glucose 203 H (74-106) mg/dL Calcium 8.4 L (8.5-10.1) mg/dL Total Bilirubin 1.2 H (0.2-1.0) mg/dL AST 108 H (15-37) U/L Alkaline Phosphatase 166 H (45-117) U/L Ammonia (11-32) mcmol/L Albumin 2.3 L (3.4-5.0) g/dL Short CBC 01/27/18 Range/Units 05:20 WBC 9.8 (4.0-11.0) th/mm3 Hgb 10.4 L (13.0-17.0) gm/dL Hct 31.8 L (39.0-51.0) % Plt Count 64 L (150-450) th/mm3 BMP 01/27/18 05:20 Sodium 144 Potassium 3.8 Chloride 111 H Carbon Dioxide 22.8 BUN 26 H Creatinine 1.39 H Calcium 8.4 L Liver Function 01/27/18 Range/Units 05:20 Total Bilirubin 1.2 H (0.2-1.0) mg/dL AST 108 H (15-37) U/L ALT 23 (12-78) U/L Alkaline Phosphatase 166 H (45-117) U/L Albumin 2.3 L (3.4-5.0) g/dL <Mele Recinos D - 01/27/18 12:24> - Imaging Impressions Abdomen X-Ray 01/26/18 21:26 CONCLUSION: Gastric tube tip and side-port project over the mid abdomen. Venous Doppler Study 01/27/18 00:00 CONCLUSION: The study is negative for upper extremity deep venous thrombosis. <MatareubenPhoenix philliply D - 01/27/18 12:24> Physical Exam Vital signs: Vital Signs 01/27/18 13:00 01/27/18 13:01 01/27/18 13:30 Temperature Pulse Rate 88 87 82 Respiratory Rate 24 24 24 Blood Pressure 108/63 109/69 Pulse Oximetry 99 100 98 01/27/18 14:00 01/27/18 14:30 01/27/18 15:00 Temperature Pulse Rate 78 74 69 Respiratory Rate 24 23 25 H Blood Pressure 103/65 108/69 103/67 Pulse Oximetry 100 99 99 01/27/18 15:31 01/27/18 16:00 01/27/18 17:00 Temperature 98.8 F Pulse Rate 92 H 83 120 H Respiratory Rate Blood Pressure 157/89 H 140/83 179/96 H Pulse Oximetry 81 L 96 97 01/27/18 17:15 01/27/18 17:30 01/27/18 18:00 Temperature Pulse Rate 133 H 132 H 128 H Respiratory Rate 23 27 H 18 Blood Pressure 156/93 H 141/89 H 146/95 H Pulse Oximetry 97 97 99 01/27/18 18:30 01/27/18 19:00 01/27/18 19:30 Temperature Pulse Rate 100 H 104 H 108 H Respiratory Rate 23 27 H 24 Blood Pressure 141/92 H 153/77 H 158/105 H Pulse Oximetry 98 98 97 01/27/18 20:00 01/27/18 20:30 01/27/18 20:40 Temperature Pulse Rate 109 H 111 H 113 H Respiratory Rate 35 H 26 H 28 H Blood Pressure 171/94 H 167/90 H Pulse Oximetry 97 97 98 01/27/18 21:00 01/27/18 21:30 01/27/18 22:00 Temperature Pulse Rate 115 H 118 H 121 H Respiratory Rate 27 H 30 H 31 H Blood Pressure 175/96 H 166/92 H 150/110 H Pulse Oximetry 96 01/27/18 22:15 01/27/18 22:30 01/27/18 23:00 Temperature Pulse Rate 117 H 120 H 135 H Respiratory Rate 23 31 H 34 H Blood Pressure 153/84 H 171/97 H 171/122 H Pulse Oximetry 98 96 100 01/27/18 23:31 01/27/18 23:42 01/27/18 23:50 Temperature Pulse Rate 124 H 119 H 115 H Respiratory Rate 25 H 26 H 27 H Blood Pressure 200/95 H 186/64 H 176/81 H Pulse Oximetry 95 97 98 01/28/18 00:00 01/28/18 00:05 01/28/18 00:11 Temperature Pulse Rate 112 H 110 H 110 H Respiratory Rate 29 H 25 H 27 H Blood Pressure 169/78 H 161/69 H 167/82 H Pulse Oximetry 96 97 92 L 01/28/18 00:15 01/28/18 00:25 01/28/18 00:30 Temperature Pulse Rate 109 H 114 H 105 H Respiratory Rate 21 42 H 29 H Blood Pressure 136/91 H 141/86 H 137/75 Pulse Oximetry 85 L 97 01/28/18 01:00 01/28/18 01:05 01/28/18 01:30 Temperature Pulse Rate 110 H 105 H 116 H Respiratory Rate 42 H 27 H 28 H Blood Pressure 156/74 H 157/105 H Pulse Oximetry 98 96 81 L 01/28/18 02:00 01/28/18 02:31 01/28/18 03:00 Temperature Pulse Rate 110 H 114 H 115 H Respiratory Rate 32 H 28 H 30 H Blood Pressure 162/70 H 93/53 L 176/92 H Pulse Oximetry 91 L 75 L 88 L 01/28/18 03:30 01/28/18 04:00 01/28/18 04:21 Temperature Pulse Rate 117 H 115 H 114 H Respiratory Rate 26 H 36 H 28 H Blood Pressure 182/82 H 184/81 H Pulse Oximetry 99 01/28/18 08:00 01/28/18 10:03 Temperature Pulse Rate Respiratory Rate Blood Pressure Pulse Oximetry 99 97 Intake & Output 01/27/1818 01/28/18 18:59 06:59 18:59 Intake Total 52.2 / 52.2 250 / 250 Output Total 900 / 900 Balance -847.8 / -847.8 250 / 250 Weight 102.5 kg Intake: IV 52.2 / 52.2 250 / 250 Precedex Inj 1,000 MCG In NS 250 / 250 Inj 240 ML @ 0.2 MCG/KG/HR 5 mls/hr IV.CONT TITRATE PRN Rx#: [id number] fentaNYL 10 mcg/mL Premix Drip 52.2 / 52.2 2,500 mcg In 250 ml @ 50 MCG/HR 5 mls/hr IV.SIG TITRATE PRN Rx #:[id number] Output: Urine Amount (Catheter) 900 / 900 Straight 900 / 900 Other: # Incontinent Voids 1 2 Date of Last Bowel Movement 01/27/18 01/27/18 01/28/18 # Incontinent Bowel Movements 1 <Kusum Correia R - 01/28/18 12:33> Vital Signs 01/26/18 12:30 01/26/18 12:54 01/26/18 13:00 Temperature Pulse Rate 89 84 Respiratory Rate 16 16 16 Blood Pressure 101/60 88/52 L Pulse Oximetry 95 95 95 01/26/18 13:30 01/26/18 14:00 01/26/18 14:30 Temperature Pulse Rate 80 80 97 H Respiratory Rate 16 16 16 Blood Pressure 85/52 L 89/55 L 129/82 Pulse Oximetry 95 95 96 01/26/18 14:43 01/26/18 15:00 01/26/18 15:30 Temperature Pulse Rate 100 H 93 H 89 Respiratory Rate 18 16 16 Blood Pressure 111/70 99/64 L Pulse Oximetry 97 96 01/26/18 16:00 01/26/18 16:25 01/26/18 16:30 Temperature Pulse Rate 103 H 110 H Respiratory Rate 18 21 18 Blood Pressure 129/78 132/82 Pulse Oximetry 95 95 95 01/26/18 17:00 01/26/18 17:30 01/26/18 18:00 Temperature Pulse Rate 108 H 105 H 111 H Respiratory Rate 20 16 17 Blood Pressure 135/82 122/76 162/97 H Pulse Oximetry 99 97 100 01/26/18 19:57 01/26/18 20:00 01/26/18 20:32 Temperature 100.8 F H Pulse Rate 104 H 96 H Respiratory Rate 21 16 16 Blood Pressure 113/69 Pulse Oximetry 100 98 01/26/18 23:00 01/26/18 23:15 01/26/18 23:27 Temperature Pulse Rate 75 75 75 Respiratory Rate 16 16 16 Blood Pressure 128/79 137/85 Pulse Oximetry 98 98 01/26/18 23:30 01/26/18 23:45 01/27/18 00:00 Temperature 97.9 F Pulse Rate 75 76 74 Respiratory Rate 16 16 16 Blood Pressure 147/91 H 145/86 H 141/83 H Pulse Oximetry 98 97 97 01/27/18 00:15 01/27/18 00:30 01/27/18 00:45 Temperature Pulse Rate 73 73 70 Respiratory Rate 16 16 16 Blood Pressure 137/83 137/83 136/87 Pulse Oximetry 97 98 98 01/27/18 01:00 01/27/18 01:30 01/27/18 01:53 Temperature Pulse Rate 72 74 Respiratory Rate 16 16 16 Blood Pressure 142/90 H 133/81 Pulse Oximetry 98 97 98 01/27/18 02:00 01/27/18 02:30 01/27/18 02:55 Temperature Pulse Rate 72 69 68 Respiratory Rate 16 16 16 Blood Pressure 137/87 145/89 H Pulse Oximetry 97 98 01/27/18 03:00 01/27/18 03:30 01/27/18 04:00 Temperature 97.6 F Pulse Rate 68 66 65 Respiratory Rate 16 16 16 Blood Pressure 150/89 H 143/83 H 149/87 H Pulse Oximetry 98 97 97 01/27/18 04:06 01/27/18 04:30 01/27/18 05:00 Temperature Pulse Rate 67 65 Respiratory Rate 16 16 16 Blood Pressure 156/91 H 162/90 H Pulse Oximetry 99 97 97 01/27/18 05:30 01/27/18 06:00 01/27/18 06:30 Temperature Pulse Rate 65 62 62 Respiratory Rate 16 16 16 Blood Pressure 162/91 H 162/88 H 168/92 H Pulse Oximetry 97 98 97 01/27/18 07:00 01/27/18 07:30 01/27/18 07:38 Temperature Pulse Rate 62 61 Respiratory Rate 16 21 15 Blood Pressure 165/89 H 177/92 H Pulse Oximetry 97 95 100 01/27/18 08:00 01/27/18 08:30 01/27/18 09:00 Temperature 98.6 F Pulse Rate 59 L 60 58 L Respiratory Rate 17 19 20 Blood Pressure 142/77 H 113/68 123/75 Pulse Oximetry 95 96 97 Intake & Output 01/26/18 01/27/18 01/27/18 18:59 06:59 18:59 Intake Total 235 / 235 1265.1 / 1265.1 52.2 / 52.2 Output Total 2099 1650 / 1650 Balance -1865 / -1865 -384.9 / -384.9 52.2 / 52.2 Weight 107 kg Intake: IV 150 / 150 1222.1 / 1222.1 52.2 / 52.2 Precedex Inj 200 MCG In NS Inj 50 / 50 150 / 150 48 ML @ 0.2 MCG/KG/HR 5 mls/hr IV.CONT TITRATE PRN Rx#: [id number] Versed Inj 100 mg In 100 ml @ 2 7.1 / 7.1 MG/HR 2 mls/hr IV.CONT TITRATE PRN Rx#:[id number] Zosyn 4.5 GM Premix 4.5 gm In 100 / 100 300 / 300 100 ml @ 200 mls/hr IV.SIG Q6H MANUEL Rx#:[id number] Vancomycin Inj 1,500 MG In NS 515 / 515 Inj 500 ML @ 250 mls/hr IV.SIG ONCE ONE Rx#:[id number] fentaNYL 10 mcg/mL Premix Drip 250 / 250 52.2 / 52.2 2,500 mcg In 250 ml @ 50 MCG/HR 5 mls/hr IV.SIG TITRATE PRN Rx #:[id number] Tube Feeding 85 / 85 43 / 43 Output: Urine Amount (Catheter) 2099 1650 / 1650 Straight 2099 1650 / 1650 Other: Date of Last Bowel Movement 01/22/18 01/26/18 01/26/18 # Bowel Movements 1 0 <Mele Recinos D - 01/27/18 12:24> Narrative: GENERAL: 52-year-old male currently orotracheally intubated SKIN: Warm and dry. No petechia or rash HEAD: Atraumatic. Normocephalic. ENT: No nasal bleeding or discharge. NECK: Trachea midline. No JVD. CARDIOVASCULAR: Regular rate and rhythm. S1, S2 no S4. No murmur RESPIRATORY: B/l equa air entry. Coarse breath sound appreciated anteriorly. GASTROINTESTINAL: Abdomen soft, non-tender, slightly distended. MUSCULOSKELETAL: Extremities without clubbing, cyanosis, or edema. No obvious deformities. +2 PD pulses BL NEUROLOGICAL: Intubated and sedated. No spontaneous eye opening <CalzadoMele D - 01/27/18 16:43> - Urinary Catheter Management 400 Cath placed during this visit: no <OsshanikasKusum R - 01/28/18 12:33> no <Calzado,Mele D - 01/27/18 16:43> Straight Cath placed during this visit: no <OscindyKusum R - 01/28/18 12:33> yes, but has since been removed by the nurse <[place] Recinosly D - 01/27/18 16:43> Reason for continuing: Not indwelling catheter <CalzadoMele D - 01/27/18 12: 24> Insertion date: 01/26/18 <Calzado,Mele D - 01/27/18 12:24> Insertion time: 17:30 <CalzadoMele D - 01/27/18 12:24> Removal date: 01/26/18 <Calzado,Mele D - 01/27/18 12:24> Removal time: 17:35 <CalzadoMele D - 01/27/18 12:24> Assessment and Plan - Assessment (1) Alcohol withdrawal Code(s): F10.239 - Alcohol dependence with withdrawal, unspecified Status: Acute (2) Abdominal pain Code(s): R10.9 - Unspecified abdominal pain Status: Acute (3) Esophageal varices in cirrhosis Code(s): K74.60 - Unspecified cirrhosis of liver; I85.10 - Secondary esophageal varices without bleeding Status: Chronic (4) Hypertension Code(s): I10 - Essential (primary) hypertension Status: Chronic (5) Alcohol abuse Code(s): F10.10 - Alcohol abuse, uncomplicated Status: Chronic (6) Depression with anxiety Code(s): F41.8 - Other specified anxiety disorders Status: Chronic (7) Cough Code(s): R05 - Cough Status: Acute (8) Diabetes Code(s): E11.9 - Type 2 diabetes mellitus without complications Status: Chronic (9) Deep vein thrombosis (DVT) of brachial vein Code(s): I82.629 - Acute embolism and thrombosis of deep veins of unspecified upper extremity Status: Acute (10) Nutrition, metabolism, and development symptoms Code(s): R63.8 - Other symptoms and signs concerning food and fluid intake Status: Acute <Kusum Correia R - 01/28/18 12:33> (1) Alcohol withdrawal Code(s): F10.239 - Alcohol dependence with withdrawal, unspecified Status: Acute Plan: Patient with extensive alcohol abuse history for the past 30 years complicated by cirrhosis and esophageal variceal GI bleed. Currently receiving treatment for alcoholism at [facility] since July of this year. Reports he is taking a medication to help with his alcoholism however he has not been compliant and has been drinking at least 2 beers per day. Presented to the ED with severe abdominal pain, vomiting and nausea. CIWA protocol on hold Patient had worsening alcohol withdrawal symptoms and was transferred to critical care on 01/18. Maxillofacial Prosthetics Dentist consulted, appreciate recommendations Patient placed on Precedex drip on 01/18 Patient placed n.p.o. Continue to monitor vital signs, continue to monitor ammonia and cmp Patient intubated on 01/19; on CPAP trial this am Continue vitamin bag daily times [address] brain: No acute abnormalities Ammonia level elevated at 70-> 81->98->72->59->56-> 82; today at 45 Lactulose 4 times daily Rifaximin 550 BID monitor ammonia levels (2) Abdominal pain Code(s): R10.9 - Unspecified abdominal pain Status: Acute Plan: Patient is a 52-year-old male with past medical history of alcoholism, cirrhosis and esophageal variceal GI bleed who presented to the ED with complaint of umbilical abdominal pain, nausea, and vomiting for the past 2 days. Patient reports tooth extraction 2 days prior to admission and malaise ( abdominal pain, vomiting x10 times with questionable blood in vomit which he attributes to tooth extraction however due to patient's history of upper GI bleed due to esophageal varices GI was consulted for further evaluation). On admission patient was slightly hypertensive however he was afebrile and no leukocytosis appreciated on CBC. CT abdomen: Showing edema of mesenteric, small metallic object in the transverse colon (which may have been part of patient's dental filling) and cirrhosis with portal hypertension and significant esophageal varices. Zofran for nausea Pain controlled with hydromorphone PRN which patient has had in the past without any adverse reactions; on hold Protonix IV twice daily Cipro for prophylaxis; discontinued 01/22 octreotide drip 25 mcg/h GI consulted for further recommendations, -Protonix, prophylactic antibiotic and octreotide drip -H&H stable and abdominal ultrasound negative for ascites -EGD procedure 01/16 showed: Esophageal varices grade 2 status post 4 band applied, biopsies taken from gastric antrum. Repeat EGD in 2 months. -vocal cord mass noted on intubation and ENT was consulted for further evaluation. -non-selective beta deena and follow up outpatient in two weeks. - GI has signed off ENT consulted Normal evaluation of vocal cords with laryngoscope neck CT no abnormal findings, no evidence of laryngeal lesion -will assess as needed (3) Esophageal varices in cirrhosis Code(s): K74.60 - Unspecified cirrhosis of liver; I85.10 - Secondary esophageal varices without bleeding Status: Chronic Plan: See plan above for abdominal pain (4) Hypertension Code(s): I10 - Essential (primary) hypertension Status: Chronic Plan: Resume home medications Clonidine PRN Continue to monitor blood pressure. (5) Alcohol abuse Code(s): F10.10 - Alcohol abuse, uncomplicated Status: Chronic Plan: See alcohol withdrawal plan above (6) Depression with anxiety Code(s): F41.8 - Other specified anxiety disorders Status: Chronic Plan: Resume home medications (7) Cough Code(s): R05 - Cough Status: Acute Plan: Patient with history of chronic cough and wheezing. -GI saw abnormal vocal cords for EGD so consulted Pulmonology and ENT -Pulmonology: recommended aerosol treatment and tessalon 200 mg TID and smoking cessation. Recommended follow up pulmonary function studies once acute illness treated. -ENT: CT neck was negative. No mass visualized with laryngoscopy. Can follow up OP for post nasal drip -Sputum culture: MRSA -vancomycin and zosyn discontinued -BCX NG to-date -Chest x-ray: Support equipment in good position. Small areas of atelectasis in both lung bases. (8) Diabetes Code(s): E11.9 - Type 2 diabetes mellitus without complications Status: Chronic Plan: Sliding scale insulin low Accu-Cheks Hypoglycemia protocol (9) Deep vein thrombosis (DVT) of brachial vein Code(s): I82.629 - Acute embolism and thrombosis of deep veins of unspecified upper extremity Status: Acute Plan: 1111 venous Doppler study: DVT of right mid brachial vein Anticoagulation therapy complicated given possible GI bleed -will follow critical care recommendations of Lovenox 40 (10) Nutrition, metabolism, and development symptoms Code(s): R63.8 - Other symptoms and signs concerning food and fluid intake Status: Acute Plan: Electrolytes: Replete as needed Diet: tube feeds ( Glucerna 1.5) DVT prophylaxis: lovenox 40 <Mele Recinos - 01/27/18 16:38> - Attending Attestation This patient was seen and examined. The assessment and plan was discussed with the resident physician and I am in agreement with continued medical care as documented in this encounter. KUSUM CORREIA MD <Kusum Correia - 01/28/18 12:33>
[2018-01-27] MEDS: Enoxaparin Inj 40 MG/0.4 ML Syringe SQ SCH (17:10)
--- NOTE | 2018-01-27 17:25 | P.DIET ---
Nutritional Evaluation Type of nutrition evaluation: follow-up Nutrition consult regarding: Tube Feeding Subjective Subjective Comments: Pt is now extubated 01/27/18 Objective - Diagnosis abd pain, mesenteric edema, vomiting - Objective % IBW: 137 (IBW = 160lb) Body Weight Used for Calculations: IBW Energy Needs - Lower Range (kCal/kg): 22 Energy Needs - Upper Range (kCal/kg): 25 Lower Limit kCal/kg (kCals): 1,600 Upper Limit kCal/kg (kCals): 1,818 Lower Limit Protein Factor (Grams per Kg): 1.2 Upper Limit Protein Factor (Grams per Kg): 1.5 Lower Protein Needs (Protein): 87 Upper Protein Needs (Protein): 109 Dietitian Reviewed in Medical Record: Curent medications, Intake & Output, Labs , Medical history Diet Order: TF'ing Objective Comments: PMH: depression, DM, esophageal varices, ETOH abuse, GI bleed, HTN Labs include: BUN 26, Creatinine 1.39, estGFR 53, Random glucose 203, POC glucose 222, Ammonia 45 Meds include: Norvasc, Bumex, Catapres, Novolog, Xifaxan, Lactulose, MV/Folic Acid/Vit C, Pravachol, Zofran, Protonix LBM 01/27/18, +UOP 3750ml Assessment Assessment: Pt continues at nutritional risk r/t need for TF'ing. TF'ing Glucerna 1.5 on hold today-pt Extubated 01/27/18. RD will monitor diet advancement. Rec 1800ADA to meet assessed needs. Assess need for an oral nutritional supplement as appropriate. Labs reviewed. Wt changes noted. Recommendations: 1.TF'ing Glucerna 1.5 on hold today-pt Extubated 01/27/[address] will monitor diet advancement 3. Rec 1800ADA to meet assessed needs 4. Assess need for an oral nutritional supplement as appropriate Dietitian to Monitor: Lab values, Glucose level, Intake & Output, Weight change , Diet advancement, Medical course
--- NOTE | 2018-01-27 19:12 | P.PNPL ---
Subjective Interval history: 52 YO male with GIB, cirrhosis Developed resp distress, agitation Extubated Opens eyes, does't follow commands On NC Physical Exam Vital signs: Vital Signs 01/26/18 19:57 01/26/18 20:00 01/26/18 20:32 Temperature 100.8 F H Pulse Rate 104 H 96 H Respiratory Rate 21 16 16 Blood Pressure 113/69 Pulse Oximetry 100 98 01/26/18 23:00 01/26/18 23:15 01/26/18 23:27 Temperature Pulse Rate 75 75 75 Respiratory Rate 16 16 16 Blood Pressure 128/79 137/85 Pulse Oximetry 98 98 01/26/18 23:30 01/26/18 23:45 01/27/18 00:00 Temperature 97.9 F Pulse Rate 75 76 74 Respiratory Rate 16 16 16 Blood Pressure 147/91 H 145/86 H 141/83 H Pulse Oximetry 98 97 97 01/27/18 00:15 01/27/18 00:30 01/27/18 00:45 Temperature Pulse Rate 73 73 70 Respiratory Rate 16 16 16 Blood Pressure 137/83 137/83 136/87 Pulse Oximetry 97 98 98 01/27/18 01:00 01/27/18 01:30 01/27/18 01:53 Temperature Pulse Rate 72 74 Respiratory Rate 16 16 16 Blood Pressure 142/90 H 133/81 Pulse Oximetry 98 97 98 01/27/18 02:00 01/27/18 02:30 01/27/18 02:55 Temperature Pulse Rate 72 69 68 Respiratory Rate 16 16 16 Blood Pressure 137/87 145/89 H Pulse Oximetry 97 98 01/27/18 03:00 01/27/18 03:30 01/27/18 04:00 Temperature 97.6 F Pulse Rate 68 66 65 Respiratory Rate 16 16 16 Blood Pressure 150/89 H 143/83 H 149/87 H Pulse Oximetry 98 97 97 01/27/18 04:06 01/27/18 04:30 01/27/18 05:00 Temperature Pulse Rate 67 65 Respiratory Rate 16 16 16 Blood Pressure 156/91 H 162/90 H Pulse Oximetry 99 97 97 01/27/18 05:30 01/27/18 06:00 01/27/18 06:30 Temperature Pulse Rate 65 62 62 Respiratory Rate 16 16 16 Blood Pressure 162/91 H 162/88 H 168/92 H Pulse Oximetry 97 98 97 01/27/18 07:00 01/27/18 07:30 01/27/18 07:38 Temperature Pulse Rate 62 61 Respiratory Rate 16 21 15 Blood Pressure 165/89 H 177/92 H Pulse Oximetry 97 95 100 01/27/18 08:00 01/27/18 08:30 01/27/18 09:00 Temperature 98.6 F Pulse Rate 59 L 60 58 L Respiratory Rate 17 19 20 Blood Pressure 142/77 H 113/68 123/75 Pulse Oximetry 95 96 97 01/27/18 09:30 01/27/18 10:00 01/27/18 10:30 Temperature Pulse Rate 58 L 58 L 59 L Respiratory Rate 0 L 0 L 0 L Blood Pressure 136/82 131/80 121/77 Pulse Oximetry 98 96 96 01/27/18 11:00 01/27/18 11:31 01/27/18 12:00 Temperature 98.6 F Pulse Rate 58 L 80 79 Respiratory Rate 0 L 41 H 33 H Blood Pressure 125/76 122/70 107/66 Pulse Oximetry 97 99 97 01/27/18 12:30 01/27/18 13:00 01/27/18 13:01 Temperature Pulse Rate 78 88 87 Respiratory Rate 30 H 24 24 Blood Pressure 105/62 108/63 Pulse Oximetry 99 99 100 01/27/18 13:30 01/27/18 14:00 01/27/18 14:30 Temperature Pulse Rate 82 78 74 Respiratory Rate 24 24 23 Blood Pressure 109/69 103/65 108/69 Pulse Oximetry 98 100 99 01/27/18 15:00 01/27/18 15:31 01/27/18 16:00 Temperature 98.8 F Pulse Rate 69 92 H 83 Respiratory Rate 25 H Blood Pressure 103/67 157/89 H 140/83 Pulse Oximetry 99 81 L 96 01/27/18 17:00 01/27/18 17:15 01/27/18 17:30 Temperature Pulse Rate 120 H 133 H 132 H Respiratory Rate 23 27 H Blood Pressure 179/96 H 156/93 H 141/89 H Pulse Oximetry 97 97 97 01/27/18 18:00 01/27/18 18:30 Temperature Pulse Rate 128 H 100 H Respiratory Rate 18 23 Blood Pressure 146/95 H 141/92 H Pulse Oximetry 99 98 Intake & Output 01/27/18 01/27/1820/18 06:59 18:59 06:59 Intake Total 1265.1 / 1265.1 52.2 / 52.2 Output Total 1650 / 1650 Balance -384.9 / -384.9 52.2 / 52.2 Weight 107 kg Intake: IV 1222.1 / 1222.1 52.2 / 52.2 Precedex Inj 200 MCG In NS Inj 150 / 150 48 ML @ 0.2 MCG/KG/HR 5 mls/hr IV.CONT TITRATE PRN Rx#: [id number] Versed Inj 100 mg In 100 ml @ 2 7.1 / 7.1 MG/HR 2 mls/hr IV.CONT TITRATE PRN Rx#:[id number] Zosyn 4.5 GM Premix 4.5 gm In 300 / 300 100 ml @ 200 mls/hr IV.SIG Q6H MANUEL Rx#:[id number] Vancomycin Inj 1,500 MG In NS 515 / 515 Inj 500 ML @ 250 mls/hr IV.SIG ONCE ONE Rx#:[id number] fentaNYL 10 mcg/mL Premix Drip 250 / 250 52.2 / 52.2 2,500 mcg In 250 ml @ 50 MCG/HR 5 mls/hr IV.SIG TITRATE PRN Rx #:[id number] Tube Feeding Output: Urine Amount (Catheter) 1650 / 1650 Straight 1650 / 1650 Other: Date of Last Bowel Movement 01/26/18 01/27/18 # Bowel Movements 0 GENERAL: WBWN, mild sob SKIN: Warm and dry. HEAD: Normocephalic. EYES: No scleral icterus. No injection or drainage. NECK: Supple, trachea midline. No JVD or lymphadenopathy. CARDIOVASCULAR: Regular rate and rhythm without murmurs, gallops, or rubs. RESPIRATORY: Breath sounds equal bilaterally. No accessory muscle use. GASTROINTESTINAL: Abdomen soft, non-tender, nondistended. MUSCULOSKELETAL: No cyanosis, or edema. BACK: Nontender without obvious deformity. No CVA tenderness. - Urinary Catheter Management Straight Cath placed during this visit: yes, but has since been removed by the nurse Reason for continuing: Not indwelling catheter Insertion date: 01/26/18 Insertion time: 17:30 Removal date: 01/26/18 Removal time: 17:35 400 Cath placed during this visit: no Assessment and Plan - Plan IMPRESSION: 1. Mild shortness of breath and cough, possibly underlying asthma. 2. Hypertension. 3. Diabetes mellitus. 4. Cirrhosis of the liver. 5. VDRF, s/p extubation 01/27 PLAN: Supplement 02 CPAP prn sob Depakote 500 mg daily Monitor Ammonia level.
[2018-01-27] MEDS: Labetalol HCl Inj 100 MG/20 ML Vial IV.PUSH PRN (23:44)
[2018-01-28] MEDS: Artificial Tears Opth Drops 15 ML Bottle EACH EYE SCH ×4 (01:12→22:42)
[2018-01-28] MEDS: Insulin NovoLOG Aspart Correctional Sugar Inj SQ SCH ×4 (01:12→18:39)
[2018-01-28] MEDS: Oral Hygiene Kit OROPHARYNG SCH ×4 (01:13→18:38)
[2018-01-28] MEDS: Labetalol HCl Inj 100 MG/20 ML Vial IV.PUSH PRN ×4 (03:37→23:09)
[2018-01-28] MEDS: RESP: Acetylcysteine 10% 4 ML Neb NEB SCH (04:21)
[2018-01-28] MEDS: Benzonatate 100 MG Capsule PO SCH ×3 (05:52→20:08)
[2018-01-28 06:16] LABS: Baso # (Auto) 0.1 th/mm3 (0.0-0.2); Baso % (Auto) 0.7 % (0.0-2.0); Eos # (Auto) 0.2 th/mm3 (0.0-0.4); Eos % (Auto) 2.1 % (0.0-4.0); Hematocrit 31.8 % (39.0-51.0); Hemoglobin 10.3 gm/dL (13.0-17.0); Lymph # (Auto) 0.7 th/mm3 (1.0-4.8); Lymph % (Auto) 7.2 % (9.0-44.0); Mean Corpuscular HGB Conc 32.4 % (32.0-36.0); Mean Corpuscular Hemoglobin 25.6 pg (27.0-34.0); Mean Corpuscular Volume 79.1 fL (80.0-100.0); Mean Platelet Volume 8.3 fL (7.0-11.0); Mono # (Auto) 1.4 th/mm3 (0.0-0.9); Mono % (Auto) 15.1 % (0.0-8.0); Neut # (Auto) 7.1 th/mm3 (1.8-7.7); Neut % (Auto) 74.9 % (16.0-70.0); Platelet Count 81 th/mm3 (150-450); Red Blood Count 4.02 mil/mm3 (4.50-5.90); Red Cell Distribution Width 18.3 % (11.6-17.2); White Blood Count 9.5 th/mm3 (4.0-11.0)
[2018-01-28 06:48] LABS: Alanine Aminotransferase 27 U/L (12-78); Albumin 2.5 g/dL (3.4-5.0); Alkaline Phosphatase 152 U/L (45-117); Anion Gap 9 meq/L (5-15); Aspartate Aminotransferase 100 U/L (15-37); Blood Urea Nitrogen 19 mg/dL (7-18); Calcium 8.8 mg/dL (8.5-10.1); Carbon Dioxide 28.5 meq/L (21.0-32.0); Chloride 114 meq/L (98-107); Glomerular Filtration Rate 71 mL/min (>89); Glucose,Random 115 mg/dL (74-106); Magnesium 1.6 mg/dL (1.5-2.5); Sodium 151 meq/L (136-145); Vancomycin,Random 8.1 Comment
[2018-01-28 08:08] LABS: Eosinophils 1 % (0-4); Lymphocytes 6 % (9-44); Monocytes 7 % (0-8); Tallied Nucleated RBC 1 (0-0)
[2018-01-28 08:09] LABS: Platelet Morphology Normal (Normal)
[2018-01-28] MEDS ORDERED: LORazepam 1 MG Tablet PO PRN (08:25)
[2018-01-28] MEDS: Chlorhexidine 0.12% Oral Kit 15 ML UDC OROPHARYNG SCH ×2 (08:30→20:08)
[2018-01-28] MEDS: amLODIPine 5 MG Tablet PO SCH (08:30)
[2018-01-28] MEDS: Senna/Docusate Sodium 8.6/50 MG Tablet PO SCH ×2 (08:30→20:08)
[2018-01-28] MEDS: Multivit/Folic Acid/Minerals Chewable Tablets CHEW SCH (08:30)
[2018-01-28] MEDS: rifAXIMin 550 MG Tablet PO SCH ×2 (08:30→20:09)
--- NOTE | 2018-01-28 08:33 | P.PNCC ---
Subjective Subjective Remarks/Hospital Course: The patient is a 52-year-old male with a past medical history of ETOH abuse, cirrhosis of liver secondary to alcohol, hypertension, diabetes mellitus, anxiety, depression, prior history of upper gastrointestinal bleed x2 due to esophageal varices. The patient was admitted under the family medicine team on 01/15/[address] for abdominal pain. A CT scan of the abdomen and pelvis showed a cirrhotic liver with evidence of portal hypertension and prominent gastroesophageal varices. No ascites noted. The patient also underwent an ultrasound of the abdomen, which showed no significant ascites. He was seen by GI service and underwent upper endoscopy on 01/16/2018 which showed grade 2 esophageal varices, status post banding x4, gastritis and hiatal hernia. The patient also had a CT scan of the chest on 01/16/2018 which showed mild infiltrates in the posterior lower lung hussein suggestive of atelectasis and nonspecific 1.5 cm lymph node in the anterior superior mediastinum. He is being followed by Dr. Maki from pulmonary service. Due to altered mental status and possible alcohol withdrawal he was transferred to ICU and critical care medicine was consulted for critical care management. He received Ativan 6-8 mg total along with Haldol and the patient remained restless and agitated. Most of the history was obtained from reviewing medical records as the patient is a poor historian. ABG was performed this morning on room air, which showed a pH of 7.44, CO2 41, PaO2 69, bicarbonate 27, saturation 91%. 01/19: Patient with worsening oxygenation status. Essentially unresponsive obtunded. Ammonia level is 98 this morning. Elective intubation. 01/20 Patient is intubated and sedated, afebrile. 01/21 Patient remains sedated with Fentnayl, Diprivan and Versed. T;100.5, CT brain yesterday no acute findings. 01/22: Remains intubated sedated Versed had been held since a.m. Remains unresponsive failed CPAP trial today due to tachypnea. Spontaneously moves lower extremities no spontaneous eye opening. Large amount of ET tube secretions reported. Sputum cx 01/19 MRSA 01/23: Remains sedated and intubated, some mild dyssynchrony with the vent during my exam. 01/24: Patient gets very agitated during sedation vacations, still requiring propofol/ versed/ fentanyl gtts. Temp is 99F, still diaphoretic on exam. 01/25: BUN/ creat trending up but urine output remains adequate. Patient's home med list includes bumex, will start diuresis today to see if this improves renal function. Of note, his home list also includes Fosrenal and mesalamine but it is unclear from previous records if patient has a h/o CKD or inflammatory bowel disease. 01/26: Creat plateaued and urine output much improved with dose of lasix yesterday, will restart home bumex dose. Propofol d/cd yesterday, versed currently on hold, precedex and fentanyl both at low doses. Copious thick secretions from ETT which are difficult to suction with in-line, will perform bedside bronch for pulmonary toilet. No contact info available for next of kin to obtain consent but patient will need this in preparation for extubation. 01/27: Patient had bronchoscopy performed yesterday, secretions are thinner and easier to suction as per RT. Balloon on ETT is sheared but patient is still receiving full tidal volumes. He is tolerating pressure support 10/5 at 40% this morning, would like to try to extubate today. 01/28: Patient extubated yesterday, still fairly encephalopathic and agitated. Objective Vital Signs / I&O: Vital Signs 01/27/18 08:30 01/27/18 09:00 01/27/18 09:30 Temperature Pulse Rate 60 58 L 58 L Respiratory Rate 19 20 0 L Blood Pressure 113/68 123/75 136/82 Pulse Oximetry 96 97 98 01/27/18 10:00 01/27/18 10:30 01/27/18 11:00 Temperature Pulse Rate 58 L 59 L 58 L Respiratory Rate 0 L 0 L 0 L Blood Pressure 131/80 121/77 125/76 Pulse Oximetry 96 96 97 01/27/18 11:31 01/27/18 12:00 01/27/18 12:30 Temperature 98.6 F Pulse Rate 80 79 78 Respiratory Rate 41 H 33 H 30 H Blood Pressure 122/70 107/66 105/62 Pulse Oximetry 99 97 99 01/27/18 13:00 01/27/18 13:01 01/27/18 13:30 Temperature Pulse Rate 88 87 82 Respiratory Rate 24 24 24 Blood Pressure 108/63 109/69 Pulse Oximetry 99 100 98 01/27/18 14:00 01/27/18 14:30 01/27/18 15:00 Temperature Pulse Rate 78 74 69 Respiratory Rate 24 23 25 H Blood Pressure 103/65 108/69 103/67 Pulse Oximetry 100 99 99 01/27/18 15:31 01/27/18 16:00 01/27/18 17:00 Temperature 98.8 F Pulse Rate 92 H 83 120 H Respiratory Rate Blood Pressure 157/89 H 140/83 179/96 H Pulse Oximetry 81 L 96 97 01/27/18 17:15 01/27/18 17:30 01/27/18 18:00 Temperature Pulse Rate 133 H 132 H 128 H Respiratory Rate 23 27 H 18 Blood Pressure 156/93 H 141/89 H 146/95 H Pulse Oximetry 97 97 99 01/27/18 18:30 01/27/18 19:00 01/27/18 19:30 Temperature Pulse Rate 100 H 104 H 108 H Respiratory Rate 23 27 H 24 Blood Pressure 141/92 H 153/77 H 158/105 H Pulse Oximetry 98 98 97 01/27/18 20:00 01/27/18 20:30 01/27/18 20:40 Temperature Pulse Rate 109 H 111 H 113 H Respiratory Rate 35 H 26 H 28 H Blood Pressure 171/94 H 167/90 H Pulse Oximetry 97 97 98 01/27/18 21:00 01/27/18 21:30 01/27/18 22:00 Temperature Pulse Rate 115 H 118 H 121 H Respiratory Rate 27 H 30 H 31 H Blood Pressure 175/96 H 166/92 H 150/110 H Pulse Oximetry 96 01/27/18 22:15 01/27/18 22:30 01/27/18 23:00 Temperature Pulse Rate 117 H 120 H 135 H Respiratory Rate 23 31 H 34 H Blood Pressure 153/84 H 171/97 H 171/122 H Pulse Oximetry 98 96 100 01/27/18 23:31 01/27/18 23:42 01/27/18 23:50 Temperature Pulse Rate 124 H 119 H 115 H Respiratory Rate 25 H 26 H 27 H Blood Pressure 200/95 H 186/64 H 176/81 H Pulse Oximetry 95 97 98 01/28/18 00:00 01/28/18 00:05 01/28/18 00:11 Temperature Pulse Rate 112 H 110 H 110 H Respiratory Rate 29 H 25 H 27 H Blood Pressure 169/78 H 161/69 H 167/82 H Pulse Oximetry 96 97 92 L 01/28/18 00:15 01/28/18 00:25 01/28/18 00:30 Temperature Pulse Rate 109 H 114 H 105 H Respiratory Rate 21 42 H 29 H Blood Pressure 136/91 H 141/86 H 137/75 Pulse Oximetry 85 L 97 01/28/18 01:00 01/28/18 01:05 01/28/18 01:30 Temperature Pulse Rate 110 H 105 H 116 H Respiratory Rate 42 H 27 H 28 H Blood Pressure 156/74 H 157/105 H Pulse Oximetry 98 96 81 L 01/28/18 02:00 01/28/18 02:31 01/28/18 03:00 Temperature Pulse Rate 110 H 114 H 115 H Respiratory Rate 32 H 28 H 30 H Blood Pressure 162/70 H 93/53 L 176/92 H Pulse Oximetry 91 L 75 L 88 L 01/28/18 03:30 01/28/18 04:00 01/28/18 04:21 Temperature Pulse Rate 117 H 115 H 114 H Respiratory Rate 26 H 36 H 28 H Blood Pressure 182/82 H 184/81 H Pulse Oximetry 99 Intake & Output 01/27/18 01/28/18 01/28/18 18:59 06:59 18:59 Intake Total 52.2 / 52.2 250 / 250 Output Total 900 / 900 Balance -847.8 / -847.8 250 / 250 Weight 102.5 kg Intake: IV 52.2 / 52.2 250 / 250 Precedex Inj 1,000 MCG In NS 250 / 250 Inj 240 ML @ 0.2 MCG/KG/HR 5 mls/hr IV.CONT TITRATE PRN Rx#: [id number] fentaNYL 10 mcg/mL Premix Drip 52.2 / 52.2 2,500 mcg In 250 ml @ 50 MCG/HR 5 mls/hr IV.SIG TITRATE PRN Rx #:[id number] Output: Urine Amount (Catheter) 900 / 900 Straight 900 / 900 Other: # Incontinent Voids 1 2 Date of Last Bowel Movement 01/27/18 01/27/18 # Incontinent Bowel Movements 1 Result Diagrams: 01/28/18 05:53 01/28/18 05:53 Objective Remarks: GENERAL: Mildly agitated SKIN: Warm, dry HEENT: NCAT. Eczema to lower face NECK: Trachea midline. CARDIOVASCULAR: Regular rate and rhythm. No murmur RESPIRATORY: Coarse breath sounds bilaterally, strong cough GASTROINTESTINAL: Abdomen soft, non-tender, non-distended. MUSCULOSKELETAL: Trace extremity edema. NEUROLOGICAL: GCS 13 ([id number]), can tell me his name is Noe, not oriented to place or time. I asked if he has family and he said "I have a brother" but can' t tell me his brother's name. Follows some simple commands. PSYCH: Agitated Assessment and Plan - Assessment and Plan Plan: 1. Altered mental status/toxic metabolic encephalopathy secondary to elevated ammonia and delirium tremens. 2. Acute respiratory failure, MRSA in sputum 3. Cirrhosis of the liver secondary to ETOH abuse, Hepatic encephalopathy 4. 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 5. Hypertension. 6. Diabetes mellitus hemoglobin A1c 6.0. 7. Ongoing abuse/EtOH 8. History of cannabinoids use 9. Hypoalbuminemia 10. Esophageal varices status post banding by GI 11. Elevated BMI Neuro/Psych: Continue PO lactulose and rifaximin, trend ammonia (46 today) Will order CIWA protocol as patient has been on versed gtt during intubation/ has history of EtOH abuse and withdrawal CV: Monitor HR and BP keep MAP>65mmHg Hold lisinopril due to elevated creat (see below) Continue amlodipine 5 mg daily, PRN clonidine 0.1 mg every 6 hours Increase Inderal from 20 to 40 mg BID Continue pravastatin 40 mg daily for hyperlipidemia Resp: Albuterol/ipratropium aerosols every 4 hours with albuterol aerosols every 2 hours as needed dyspnea. D/C mucomyst Aggressive chest PT CPAP prn GI: Status post EGD on 01/16/2018 which showed grade 2 esophageal varices, status post banding x4. Abdominal ultrasound on 01/15/2018 showed no evidence of significant ascites. Pantoprazole 40 m IV twice daily for GI prophylaxis On lactulose 30 cc QID and Xifaxan 550 mg twice daily. Ammonia level Speech eval, if fails will need NGT (prefer pediatric NGT or small adult NGT given history of varices) : Monitor renal function, creat and urine output much improved, continue home dose of bumex Electrolyte replacement per protocol Endo: Sliding scale insulin with Accu-Cheks every 6 hours to maintain euglycemia Hemoglobin A1c was 6.0 Heme: Monitor CBC ID: Random vanc level 8.8, patient is now on day 7 treatment for MRSA pneumonia, observe off antibiotics Access -Utilize peripheral IV. Prophylaxis - GI-pantoprazole - DVT SCD/ lovenox - 01/19 Doppler US RUE: Positive for nonocclusive deep venous thrombosis in the right mid brachial vein. Follow up scan today to assess for propagation. Level 2 follow up To help prompt me to consider important information that might be impacting today's encounter and assessment, information from prior notes written by myself or my colleagues may have been "brought forward" into today's note. My signature on this note, however, is an attestation that I personally performed the exam, history, and/or decision-making noted today, and, unless otherwise indicated, the interactions with patient, family, and staff as well as the review of records all occurred today. I also attest that the listed assessment and stated plan reflect my best clinical judgment today based on the combination of historical information, prior notes, and today's exam/ interactions. Code Status: Full
[2018-01-28] MEDS: Pantoprazole Inj 40 MG Vial IV.PUSH SCH ×2 (09:10→20:43)
[2018-01-28] MEDS: Vancomycin Inj 1,500 MG in Sodium Chlor 0.9% Inj 500 ML IV.SIG SCH ×2 (11:10→22:52)
--- NOTE | 2018-01-28 11:16 | P.PNPL ---
Subjective Interval history: 52 YO male with GIB, cirrhosis Developed resp distress, agitation Extubated 01/27 Opens eyes, follows simple commands On NC has thick oral secretions Physical Exam Vital signs: Vital Signs 01/27/18 11:31 01/27/18 12:00 01/27/18 12:30 Temperature 98.6 F Pulse Rate 80 79 78 Respiratory Rate 41 H 33 H 30 H Blood Pressure 122/70 107/66 105/62 Pulse Oximetry 99 97 99 01/27/18 13:00 01/27/18 13:01 01/27/18 13:30 Temperature Pulse Rate 88 87 82 Respiratory Rate 24 24 24 Blood Pressure 108/63 109/69 Pulse Oximetry 99 100 98 01/27/18 14:00 01/27/18 14:30 01/27/18 15:00 Temperature Pulse Rate 78 74 69 Respiratory Rate 24 23 25 H Blood Pressure 103/65 108/69 103/67 Pulse Oximetry 100 99 99 01/27/18 15:31 01/27/18 16:00 01/27/18 17:00 Temperature 98.8 F Pulse Rate 92 H 83 120 H Respiratory Rate Blood Pressure 157/89 H 140/83 179/96 H Pulse Oximetry 81 L 96 97 01/27/18 17:15 01/27/18 17:30 01/27/18 18:00 Temperature Pulse Rate 133 H 132 H 128 H Respiratory Rate 23 27 H 18 Blood Pressure 156/93 H 141/89 H 146/95 H Pulse Oximetry 97 97 99 01/27/18 18:30 01/27/18 19:00 01/27/18 19:30 Temperature Pulse Rate 100 H 104 H 108 H Respiratory Rate 23 27 H 24 Blood Pressure 141/92 H 153/77 H 158/105 H Pulse Oximetry 98 98 97 01/27/18 20:00 01/27/18 20:30 01/27/18 20:40 Temperature Pulse Rate 109 H 111 H 113 H Respiratory Rate 35 H 26 H 28 H Blood Pressure 171/94 H 167/90 H Pulse Oximetry 97 97 98 01/27/18 21:00 01/27/18 21:30 01/27/18 22:00 Temperature Pulse Rate 115 H 118 H 121 H Respiratory Rate 27 H 30 H 31 H Blood Pressure 175/96 H 166/92 H 150/110 H Pulse Oximetry 96 01/27/18 22:15 01/27/18 22:30 01/27/18 23:00 Temperature Pulse Rate 117 H 120 H 135 H Respiratory Rate 23 31 H 34 H Blood Pressure 153/84 H 171/97 H 171/122 H Pulse Oximetry 98 96 100 01/27/18 23:31 01/27/18 23:42 01/27/18 23:50 Temperature Pulse Rate 124 H 119 H 115 H Respiratory Rate 25 H 26 H 27 H Blood Pressure 200/95 H 186/64 H 176/81 H Pulse Oximetry 95 97 98 01/28/18 00:00 01/28/18 00:05 01/28/18 00:11 Temperature Pulse Rate 112 H 110 H 110 H Respiratory Rate 29 H 25 H 27 H Blood Pressure 169/78 H 161/69 H 167/82 H Pulse Oximetry 96 97 92 L 01/28/18 00:15 01/28/18 00:25 01/28/18 00:30 Temperature Pulse Rate 109 H 114 H 105 H Respiratory Rate 21 42 H 29 H Blood Pressure 136/91 H 141/86 H 137/75 Pulse Oximetry 85 L 97 01/28/18 01:00 01/28/18 01:05 01/28/18 01:30 Temperature Pulse Rate 110 H 105 H 116 H Respiratory Rate 42 H 27 H 28 H Blood Pressure 156/74 H 157/105 H Pulse Oximetry 98 96 81 L 01/28/18 02:00 01/28/18 02:31 01/28/18 03:00 Temperature Pulse Rate 110 H 114 H 115 H Respiratory Rate 32 H 28 H 30 H Blood Pressure 162/70 H 93/53 L 176/92 H Pulse Oximetry 91 L 75 L 88 L 01/28/18 03:30 01/28/18 04:00 01/28/18 04:21 Temperature Pulse Rate 117 H 115 H 114 H Respiratory Rate 26 H 36 H 28 H Blood Pressure 182/82 H 184/81 H Pulse Oximetry 99 01/28/18 08:00 01/28/18 10:03 Temperature Pulse Rate Respiratory Rate Blood Pressure Pulse Oximetry 99 97 Intake & Output 01/27/18 01/28/18 01/28/18 18:59 06:59 18:59 Intake Total 52.2 / 52.2 250 / 250 Output Total 900 / 900 Balance -847.8 / -847.8 250 / 250 Weight 102.5 kg Intake: IV 52.2 / 52.2 250 / 250 Precedex Inj 1,000 MCG In NS 250 / 250 Inj 240 ML @ 0.2 MCG/KG/HR 5 mls/hr IV.CONT TITRATE PRN Rx#: [id number] fentaNYL 10 mcg/mL Premix Drip 52.2 / 52.2 2,500 mcg In 250 ml @ 50 MCG/HR 5 mls/hr IV.SIG TITRATE PRN Rx #:[id number] Output: Urine Amount (Catheter) 900 / 900 Straight 900 / 900 Other: # Incontinent Voids 1 2 Date of Last Bowel Movement 01/27/18 01/27/18 01/28/18 # Incontinent Bowel Movements 1 GENERAL: WBWN Male, Mild sob SKIN: Warm and dry. HEAD: Normocephalic. EYES: No scleral icterus. No injection or drainage. NECK: Supple, trachea midline. No JVD or lymphadenopathy. CARDIOVASCULAR: Regular rate and rhythm without murmurs, gallops, or rubs. RESPIRATORY: Breath sounds equal bilaterally. No accessory muscle use. GASTROINTESTINAL: Abdomen soft, non-tender, nondistended. MUSCULOSKELETAL: No cyanosis, or edema. BACK: Nontender without obvious deformity. No CVA tenderness. - Urinary Catheter Management Straight Cath placed during this visit: yes, but has since been removed by the nurse Reason for continuing: Not indwelling catheter Insertion date: 01/26/18 Insertion time: 17:30 Removal date: 01/26/18 Removal time: 17:35 400 Cath placed during this visit: no Assessment and Plan - Plan IMPRESSION: 1. Mild shortness of breath and cough, possibly underlying asthma. 2. Hypertension. 3. Diabetes mellitus. 4. Cirrhosis of the liver. 5. VDRF, s/p extubation 01/27 PLAN: Supplement 02 CPAP prn sob Depakote 500 mg daily Monitor Ammonia level. Oral suction prn.
--- NOTE | 2018-01-28 11:16 | P.PNFP ---
Subjective Interval history: Patient seen and examined at bedside this morning. Patient was extubated yesterday. He is currently on Cipro protocol, nurse reports patient's most recent score is a 16, he is in restraints and still pretty rowdy. Patient is not oriented, unable to follow commands or hold conversation. Elevated blood pressures overnight ranging from 130-200/60-110s. This morning his blood pressure was 184/81. <Mele Recinos D - 01/28/18 11:42> Results - Labs Result diagrams: 01/28/18 05:53 01/28/18 05:53 <Kusum Weiss R - 01/28/18 12:40> Abnormal lab results 01/27/18 01/28/18 01/28/18 Range/Units 23:58 05:53 05:53 RBC 4.02 L (4.50-5.90) mil/mm3 Hgb 10.3 L (13.0-17.0) gm/dL Hct 31.8 L (39.0-51.0) % MCV 79.1 L (80.0-100.0) fL MCH 25.6 L (27.0-34.0) pg RDW 18.3 H (11.6-17.2) % Plt Count 81 L (150-450) th/mm3 Neut % (Auto) 74.9 H (16.0-70.0) % Lymph % (Auto) 7.2 L (9.0-44.0) % [place] % (Auto) 15.1 H (0.0-8.0) % Lymph # (Auto) 0.7 L (1.0-4.8) th/mm3 [place] # (Auto) 1.4 H (0.0-0.9) th/mm3 Seg Neuts % (Manual) 77 H (16-70) % Band Neuts % (Manual) 9 H (0-6) % Lymphocytes % (Manual) 6 L (9-44) % Abs Neuts (Manual) 8.2 H (1.8-7.7) th/mm3 Nucleated RBCs/100 WBC 1 H (0-0) /100 WBC Platelet Estimate Low L (Normal) Sodium 151 H (136-145) meq/L Chloride 114 H (98-107) meq/L BUN 19 H (7-18) mg/dL Estimated GFR 71 L (>89) mL/min POC Glucose 121 H (68-110) mg/dl Random Glucose 115 H (74-106) mg/dL AST 100 H (15-37) U/L Alkaline Phosphatase 152 H (45-117) U/L Ammonia (11-32) mcmol/L Albumin 2.5 L (3.4-5.0) g/dL 01/28/18 01/28/18 01/28/18 Range/Units 06:04 08:50 11:07 RBC (4.50-5.90) mil/mm3 Hgb (13.0-17.0) gm/dL Hct (39.0-51.0) % MCV (80.0-100.0) fL MCH (27.0-34.0) pg RDW (11.6-17.2) % Plt Count (150-450) th/mm3 Neut % (Auto) (16.0-70.0) % Lymph % (Auto) (9.0-44.0) % [place] % (Auto) (0.0-8.0) % Lymph # (Auto) (1.0-4.8) th/mm3 [place] # (Auto) (0.0-0.9) th/mm3 Seg Neuts % (Manual) (16-70) % Band Neuts % (Manual) (0-6) % Lymphocytes % (Manual) (9-44) % Abs Neuts (Manual) (1.8-7.7) th/mm3 Nucleated RBCs/100 WBC (0-0) /100 WBC Platelet Estimate (Normal) Sodium (136-145) meq/L Chloride (98-107) meq/L BUN (7-18) mg/dL Estimated GFR (>89) mL/min POC Glucose 111 H 122 H (68-110) mg/dl Random Glucose (74-106) mg/dL AST (15-37) U/L Alkaline Phosphatase (45-117) U/L Ammonia 46 H (11-32) mcmol/L Albumin (3.4-5.0) g/dL Short CBC 01/28/18 Range/Units 05:53 WBC 9.5 (4.0-11.0) th/mm3 Hgb 10.3 L (13.0-17.0) gm/dL Hct 31.8 L (39.0-51.0) % Plt Count 81 L (150-450) th/mm3 BMP 01/28/18 05:53 Sodium 151 H Potassium 4.0 Chloride 114 H Carbon Dioxide 28.5 BUN 19 H Creatinine 1.09 Calcium 8.8 Liver Function 01/28/18 Range/Units 05:53 Total Bilirubin 0.9 (0.2-1.0) mg/dL AST 100 H (15-37) U/L ALT 27 (12-78) U/L Alkaline Phosphatase 152 H (45-117) U/L Albumin 2.5 L (3.4-5.0) g/dL <Kusum Weiss R - 01/28/18 12:40> Abnormal lab results 01/27/18 01/27/18 01/28/18 Range/Units 11:17 23:58 05:53 RBC 4.02 L (4.50-5.90) mil/mm3 Hgb 10.3 L (13.0-17.0) gm/dL Hct 31.8 L (39.0-51.0) % MCV 79.1 L (80.0-100.0) fL MCH 25.6 L (27.0-34.0) pg RDW 18.3 H (11.6-17.2) % Plt Count 81 L (150-450) th/mm3 Neut % (Auto) 74.9 H (16.0-70.0) % Lymph % (Auto) 7.2 L (9.0-44.0) % [place] % (Auto) 15.1 H (0.0-8.0) % Lymph # (Auto) 0.7 L (1.0-4.8) th/mm3 [place] # (Auto) 1.4 H (0.0-0.9) th/mm3 Seg Neuts % (Manual) 77 H (16-70) % Band Neuts % (Manual) 9 H (0-6) % Lymphocytes % (Manual) 6 L (9-44) % Abs Neuts (Manual) 8.2 H (1.8-7.7) th/mm3 Nucleated RBCs/100 WBC 1 H (0-0) /100 WBC Platelet Estimate Low L (Normal) Sodium (136-145) meq/L Chloride (98-107) meq/L BUN (7-18) mg/dL Estimated GFR (>89) mL/min POC Glucose 229 H 121 H (68-110) mg/dl Random Glucose (74-106) mg/dL AST (15-37) U/L Alkaline Phosphatase (45-117) U/L Ammonia (11-32) mcmol/L Albumin (3.4-5.0) g/dL 01/28/18 01/28/18 01/28/18 Range/Units 05:53 06:04 08:50 RBC (4.50-5.90) mil/mm3 Hgb (13.0-17.0) gm/dL Hct (39.0-51.0) % MCV (80.0-100.0) fL MCH (27.0-34.0) pg RDW (11.6-17.2) % Plt Count (150-450) th/mm3 Neut % (Auto) (16.0-70.0) % Lymph % (Auto) (9.0-44.0) % [place] % (Auto) (0.0-8.0) % Lymph # (Auto) (1.0-4.8) th/mm3 [place] # (Auto) (0.0-0.9) th/mm3 Seg Neuts % (Manual) (16-70) % Band Neuts % (Manual) (0-6) % Lymphocytes % (Manual) (9-44) % Abs Neuts (Manual) (1.8-7.7) th/mm3 Nucleated RBCs/100 WBC (0-0) /100 WBC Platelet Estimate (Normal) Sodium 151 H (136-145) meq/L Chloride 114 H (98-107) meq/L BUN 19 H (7-18) mg/dL Estimated GFR 71 L (>89) mL/min POC Glucose 111 H (68-110) mg/dl Random Glucose 115 H (74-106) mg/dL AST 100 H (15-37) U/L Alkaline Phosphatase 152 H (45-117) U/L Ammonia 46 H (11-32) mcmol/L Albumin 2.5 L (3.4-5.0) g/dL 01/28/18 Range/Units 11:07 RBC (4.50-5.90) mil/mm3 Hgb (13.0-17.0) gm/dL Hct (39.0-51.0) % MCV (80.0-100.0) fL MCH (27.0-34.0) pg RDW (11.6-17.2) % Plt Count (150-450) th/mm3 Neut % (Auto) (16.0-70.0) % Lymph % (Auto) (9.0-44.0) % [place] % (Auto) (0.0-8.0) % Lymph # (Auto) (1.0-4.8) th/mm3 [place] # (Auto) (0.0-0.9) th/mm3 Seg Neuts % (Manual) (16-70) % Band Neuts % (Manual) (0-6) % Lymphocytes % (Manual) (9-44) % Abs Neuts (Manual) (1.8-7.7) th/mm3 Nucleated RBCs/100 WBC (0-0) /100 WBC Platelet Estimate (Normal) Sodium (136-145) meq/L Chloride (98-107) meq/L BUN (7-18) mg/dL Estimated GFR (>89) mL/min POC Glucose 122 H (68-110) mg/dl Random Glucose (74-106) mg/dL AST (15-37) U/L Alkaline Phosphatase (45-117) U/L Ammonia (11-32) mcmol/L Albumin (3.4-5.0) g/dL Short CBC 01/28/18 Range/Units 05:53 WBC 9.5 (4.0-11.0) th/mm3 Hgb 10.3 L (13.0-17.0) gm/dL Hct 31.8 L (39.0-51.0) % Plt Count 81 L (150-450) th/mm3 BMP 01/28/18 05:53 Sodium 151 H Potassium 4.0 Chloride 114 H Carbon Dioxide 28.5 BUN 19 H Creatinine 1.09 Calcium 8.8 Liver Function 01/28/18 Range/Units 05:53 Total Bilirubin 0.9 (0.2-1.0) mg/dL AST 100 H (15-37) U/L ALT 27 (12-78) U/L Alkaline Phosphatase 152 H (45-117) U/L Albumin 2.5 L (3.4-5.0) g/dL <Mele Recinos D - 01/28/18 11:16> Physical Exam Vital signs: Vital Signs 01/27/18 13:00 01/27/18 13:01 01/27/18 13:30 Temperature Pulse Rate 88 87 82 Respiratory Rate 24 24 24 Blood Pressure 108/63 109/69 Pulse Oximetry 99 100 98 01/27/18 14:00 01/27/18 14:30 01/27/18 15:00 Temperature Pulse Rate 78 74 69 Respiratory Rate 24 23 25 H Blood Pressure 103/65 108/69 103/67 Pulse Oximetry 100 99 99 01/27/18 15:31 01/27/18 16:00 01/27/18 17:00 Temperature 98.8 F Pulse Rate 92 H 83 120 H Respiratory Rate Blood Pressure 157/89 H 140/83 179/96 H Pulse Oximetry 81 L 96 97 01/27/18 17:15 01/27/18 17:30 01/27/18 18:00 Temperature Pulse Rate 133 H 132 H 128 H Respiratory Rate 23 27 H 18 Blood Pressure 156/93 H 141/89 H 146/95 H Pulse Oximetry 97 97 99 01/27/18 18:30 01/27/18 19:00 01/27/18 19:30 Temperature Pulse Rate 100 H 104 H 108 H Respiratory Rate 23 27 H 24 Blood Pressure 141/92 H 153/77 H 158/105 H Pulse Oximetry 98 98 97 01/27/18 20:00 01/27/18 20:30 01/27/18 20:40 Temperature Pulse Rate 109 H 111 H 113 H Respiratory Rate 35 H 26 H 28 H Blood Pressure 171/94 H 167/90 H Pulse Oximetry 97 97 98 01/27/18 21:00 01/27/18 21:30 01/27/18 22:00 Temperature Pulse Rate 115 H 118 H 121 H Respiratory Rate 27 H 30 H 31 H Blood Pressure 175/96 H 166/92 H 150/110 H Pulse Oximetry 96 01/27/18 22:15 01/27/18 22:30 01/27/18 23:00 Temperature Pulse Rate 117 H 120 H 135 H Respiratory Rate 23 31 H 34 H Blood Pressure 153/84 H 171/97 H 171/122 H Pulse Oximetry 98 96 100 01/27/18 23:31 01/27/18 23:42 01/27/18 23:50 Temperature Pulse Rate 124 H 119 H 115 H Respiratory Rate 25 H 26 H 27 H Blood Pressure 200/95 H 186/64 H 176/81 H Pulse Oximetry 95 97 98 01/28/18 00:00 01/28/18 00:05 01/28/18 00:11 Temperature Pulse Rate 112 H 110 H 110 H Respiratory Rate 29 H 25 H 27 H Blood Pressure 169/78 H 161/69 H 167/82 H Pulse Oximetry 96 97 92 L 01/28/18 00:15 01/28/18 00:25 01/28/18 00:30 Temperature Pulse Rate 109 H 114 H 105 H Respiratory Rate 21 42 H 29 H Blood Pressure 136/91 H 141/86 H 137/75 Pulse Oximetry 85 L 97 01/28/18 01:00 01/28/18 01:05 01/28/18 01:30 Temperature Pulse Rate 110 H 105 H 116 H Respiratory Rate 42 H 27 H 28 H Blood Pressure 156/74 H 157/105 H Pulse Oximetry 98 96 81 L 01/28/18 02:00 01/28/18 02:31 01/28/18 03:00 Temperature Pulse Rate 110 H 114 H 115 H Respiratory Rate 32 H 28 H 30 H Blood Pressure 162/70 H 93/53 L 176/92 H Pulse Oximetry 91 L 75 L 88 L 01/28/18 03:30 01/28/18 04:00 01/28/18 04:21 Temperature Pulse Rate 117 H 115 H 114 H Respiratory Rate 26 H 36 H 28 H Blood Pressure 182/82 H 184/81 H Pulse Oximetry 99 01/28/18 08:00 01/28/18 10:03 Temperature Pulse Rate Respiratory Rate Blood Pressure Pulse Oximetry 99 97 Intake & Output 01/27/18 01/28/18 01/28/18 18:59 06:59 18:59 Intake Total 52.2 / 52.2 250 / 250 Output Total 900 / 900 Balance -847.8 / -847.8 250 / 250 Weight 102.5 kg Intake: IV 52.2 / 52.2 250 / 250 Precedex Inj 1,000 MCG In NS 250 / 250 Inj 240 ML @ 0.2 MCG/KG/HR 5 mls/hr IV.CONT TITRATE PRN Rx#: [id number] fentaNYL 10 mcg/mL Premix Drip 52.2 / 52.2 2,500 mcg In 250 ml @ 50 MCG/HR 5 mls/hr IV.SIG TITRATE PRN Rx #:[id number] Output: Urine Amount (Catheter) 900 / 900 Straight 900 / 900 Other: # Incontinent Voids 1 2 Date of Last Bowel Movement 01/27/18 01/27/18 01/28/18 # Incontinent Bowel Movements 1 <Kusum Weiss R - 01/28/18 12:40> Vital Signs 01/27/18 11:31 01/27/18 12:00 01/27/18 12:30 Temperature 98.6 F Pulse Rate 80 79 78 Respiratory Rate 41 H 33 H 30 H Blood Pressure 122/70 107/66 105/62 Pulse Oximetry 99 97 99 01/27/18 13:00 01/27/18 13:01 01/27/18 13:30 Temperature Pulse Rate 88 87 82 Respiratory Rate 24 24 24 Blood Pressure 108/63 109/69 Pulse Oximetry 99 100 98 01/27/18 14:00 01/27/18 14:30 01/27/18 15:00 Temperature Pulse Rate 78 74 69 Respiratory Rate 24 23 25 H Blood Pressure 103/65 108/69 103/67 Pulse Oximetry 100 99 99 01/27/18 15:31 01/27/18 16:00 01/27/18 17:00 Temperature 98.8 F Pulse Rate 92 H 83 120 H Respiratory Rate Blood Pressure 157/89 H 140/83 179/96 H Pulse Oximetry 81 L 96 97 01/27/18 17:15 01/27/18 17:30 01/27/18 18:00 Temperature Pulse Rate 133 H 132 H 128 H Respiratory Rate 23 27 H 18 Blood Pressure 156/93 H 141/89 H 146/95 H Pulse Oximetry 97 97 99 01/27/18 18:30 01/27/18 19:00 01/27/18 19:30 Temperature Pulse Rate 100 H 104 H 108 H Respiratory Rate 23 27 H 24 Blood Pressure 141/92 H 153/77 H 158/105 H Pulse Oximetry 98 98 97 01/27/18 20:00 01/27/18 20:30 01/27/18 20:40 Temperature Pulse Rate 109 H 111 H 113 H Respiratory Rate 35 H 26 H 28 H Blood Pressure 171/94 H 167/90 H Pulse Oximetry 97 97 98 01/27/18 21:00 01/27/18 21:30 01/27/18 22:00 Temperature Pulse Rate 115 H 118 H 121 H Respiratory Rate 27 H 30 H 31 H Blood Pressure 175/96 H 166/92 H 150/110 H Pulse Oximetry 96 01/27/18 22:15 01/27/18 22:30 01/27/18 23:00 Temperature Pulse Rate 117 H 120 H 135 H Respiratory Rate 23 31 H 34 H Blood Pressure 153/84 H 171/97 H 171/122 H Pulse Oximetry 98 96 100 01/27/18 23:31 01/27/18 23:42 01/27/18 23:50 Temperature Pulse Rate 124 H 119 H 115 H Respiratory Rate 25 H 26 H 27 H Blood Pressure 200/95 H 186/64 H 176/81 H Pulse Oximetry 95 97 98 01/28/18 00:00 01/28/18 00:05 01/28/18 00:11 Temperature Pulse Rate 112 H 110 H 110 H Respiratory Rate 29 H 25 H 27 H Blood Pressure 169/78 H 161/69 H 167/82 H Pulse Oximetry 96 97 92 L 01/28/18 00:15 01/28/18 00:25 01/28/18 00:30 Temperature Pulse Rate 109 H 114 H 105 H Respiratory Rate 21 42 H 29 H Blood Pressure 136/91 H 141/86 H 137/75 Pulse Oximetry 85 L 97 01/28/18 01:00 01/28/18 01:05 01/28/18 01:30 Temperature Pulse Rate 110 H 105 H 116 H Respiratory Rate 42 H 27 H 28 H Blood Pressure 156/74 H 157/105 H Pulse Oximetry 98 96 81 L 01/28/18 02:00 01/28/18 02:31 01/28/18 03:00 Temperature Pulse Rate 110 H 114 H 115 H Respiratory Rate 32 H 28 H 30 H Blood Pressure 162/70 H 93/53 L 176/92 H Pulse Oximetry 91 L 75 L 88 L 01/28/18 03:30 01/28/18 04:00 01/28/18 04:21 Temperature Pulse Rate 117 H 115 H 114 H Respiratory Rate 26 H 36 H 28 H Blood Pressure 182/82 H 184/81 H Pulse Oximetry 99 01/28/18 08:00 01/28/18 10:03 Temperature Pulse Rate Respiratory Rate Blood Pressure Pulse Oximetry 99 97 Intake & Output 18 18 18 18:59 06:59 18:59 Intake Total 52.2 / 52.2 250 / 250 Output Total 900 / 900 Balance -847.8 / -847.8 250 / 250 Weight 102.5 kg Intake: IV 52.2 / 52.2 250 / 250 Precedex Inj 1,000 MCG In NS 250 / 250 Inj 240 ML @ 0.2 MCG/KG/HR 5 mls/hr IV.CONT TITRATE PRN Rx#: [id number] fentaNYL 10 mcg/mL Premix Drip 52.2 / 52.2 2,500 mcg In 250 ml @ 50 MCG/HR 5 mls/hr IV.SIG TITRATE PRN Rx #:[id number] Output: Urine Amount (Catheter) 900 / 900 Straight 900 / 900 Other: # Incontinent Voids 1 2 Date of Last Bowel Movement 01/27/18 01/27/18 01/28/18 # Incontinent Bowel Movements 1 <Mele Recinos D - 01/28/18 11:16> Narrative: GENERAL: 52-year-old male currently extubated, awake SKIN: Warm and dry. No petechia or rash HEAD: Atraumatic. Normocephalic. Patient with dried blood across the face likely due to healing abrasions develop where he was intubated ENT: No nasal bleeding or discharge. Small clot on left side of tongue, no active bleeding, healing NECK: Trachea midline. No JVD. CARDIOVASCULAR: Regular rate and rhythm. S1, S2 no S4. No murmur RESPIRATORY: B/l equa air entry. Coarse breath sound appreciated anteriorly. GASTROINTESTINAL: Abdomen soft, non-tender, slightly distended. MUSCULOSKELETAL: Extremities without clubbing, cyanosis, or edema. No obvious deformities. +2 PD pulses BL NEUROLOGICAL: Alert, moving all extremities, no focal neurological deficits noted on exam, <Mele Recinos D - 01/28/18 11:16> - Urinary Catheter Management 400 Cath placed during this visit: no <Kusum Weiss R - 01/28/18 12:40> no <Mele Recinos D - 01/28/18 11:42> Straight Cath placed during this visit: no <Kusum Weiss R - 01/28/18 12:40> yes, but has since been removed by the nurse <Mele Recinos D - 01/28/18 11:42> Reason for continuing: Not indwelling catheter <Mele Recinos D - 01/28/18 11: 16> Insertion date: 01/26/18 <Mele Recinos D - 01/28/18 11:16> Insertion time: 17:30 <Mele Recinos D - 01/28/18 11:16> Removal date: 01/26/18 <Mele Recinos D - 01/28/18 11:16> Removal time: 17:35 <Mele Recinos D - 01/28/18 11:16> Assessment and Plan - Assessment (1) Alcohol withdrawal Code(s): F10.239 - Alcohol dependence with withdrawal, unspecified Status: Acute (2) Abdominal pain Code(s): R10.9 - Unspecified abdominal pain Status: Acute (3) Esophageal varices in cirrhosis Code(s): K74.60 - Unspecified cirrhosis of liver; I85.10 - Secondary esophageal varices without bleeding Status: Chronic (4) Hypertension Code(s): I10 - Essential (primary) hypertension Status: Chronic (5) Alcohol abuse Code(s): F10.10 - Alcohol abuse, uncomplicated Status: Chronic (6) Depression with anxiety Code(s): F41.8 - Other specified anxiety disorders Status: Chronic (7) Cough Code(s): R05 - Cough Status: Acute (8) Diabetes Code(s): E11.9 - Type 2 diabetes mellitus without complications Status: Chronic (9) Deep vein thrombosis (DVT) of brachial vein Code(s): I82.629 - Acute embolism and thrombosis of deep veins of unspecified upper extremity Status: Acute (10) Nutrition, metabolism, and development symptoms Code(s): R63.8 - Other symptoms and signs concerning food and fluid intake Status: Acute <Kusum Weiss R - 01/28/18 12:40> (1) Alcohol withdrawal Code(s): F10.239 - Alcohol dependence with withdrawal, unspecified Status: Acute Plan: Patient with extensive alcohol abuse history for the past 30 years complicated by cirrhosis and esophageal variceal GI bleed. Currently receiving treatment for alcoholism at [facility] since July of this year. Reports he is taking a medication to help with his alcoholism however he has not been compliant and has been drinking at least 2 beers per day. Presented to the ED with severe abdominal pain, vomiting and nausea. Patient had worsening alcohol withdrawal symptoms and was transferred to critical care on 01/18. Copy Preparer consulted, appreciate recommendations Patient placed on Precedex drip on 01/18; d/c on 01/27 Patient placed n.p.o., will order bedside swallow Continue to monitor vital signs, continue to monitor ammonia and cmp Patient intubated on 01/19; on CPAP trial this am CT brain: No acute abnormalities Continue vitamin bag daily times 3 days Valproate 500 p.o. daily CIWA protocol restarted since patient was extubated yesterday 01/27. Recent CIWA score this am of 16 requiring 2 mg of Ativan. Ammonia level elevated at 70-> 81->98->72->59->56-> 82->69->45; today at 46 Lactulose 4 times daily Rifaximin 550 BID (2) Abdominal pain Code(s): R10.9 - Unspecified abdominal pain Status: Acute Plan: Patient is a 52-year-old male with past medical history of alcoholism, cirrhosis and esophageal variceal GI bleed who presented to the ED with complaint of umbilical abdominal pain, nausea, and vomiting for the past 2 days. Patient reports tooth extraction 2 days prior to admission and malaise ( abdominal pain, vomiting x10 times with questionable blood in vomit which he attributes to tooth extraction however due to patient's history of upper GI bleed due to esophageal varices GI was consulted for further evaluation). On admission patient was slightly hypertensive however he was afebrile and no leukocytosis appreciated on CBC. CT abdomen: Showing edema of mesenteric, small metallic object in the transverse colon (which may have been part of patient's dental filling) and cirrhosis with portal hypertension and significant esophageal varices. Zofran for nausea Pain controlled with hydromorphone PRN which patient has had in the past without any adverse reactions; on hold Protonix IV twice daily Cipro for prophylaxis; discontinued 01/22 octreotide drip 25 mcg/h, discontinued GI consulted for further recommendations, -Protonix, prophylactic antibiotic and octreotide drip -H&H stable and abdominal ultrasound negative for ascites -EGD procedure 01/16 showed: Esophageal varices grade 2 status post 4 band applied, biopsies taken from gastric antrum. Repeat EGD in 2 months. -vocal cord mass noted on intubation and ENT was consulted for further evaluation. -non-selective beta deena and follow up outpatient in two weeks. - GI has signed off ENT consulted Normal evaluation of vocal cords with laryngoscope neck CT no abnormal findings, no evidence of laryngeal lesion -will assess as needed (3) Esophageal varices in cirrhosis Code(s): K74.60 - Unspecified cirrhosis of liver; I85.10 - Secondary esophageal varices without bleeding Status: Chronic Plan: See plan above for abdominal pain (4) Hypertension Code(s): I10 - Essential (primary) hypertension Status: Chronic Plan: Resume home medications Clonidine PRN Continue to monitor blood pressure. (5) Alcohol abuse Code(s): F10.10 - Alcohol abuse, uncomplicated Status: Chronic Plan: See alcohol withdrawal plan above (6) Depression with anxiety Code(s): F41.8 - Other specified anxiety disorders Status: Chronic Plan: Resume home medications (7) Cough Code(s): R05 - Cough Status: Acute Plan: Patient with history of chronic cough and wheezing. -GI saw abnormal vocal cords for EGD so consulted Pulmonology and ENT -Pulmonology: recommended aerosol treatment and tessalon 200 mg TID and smoking cessation. Recommended follow up pulmonary function studies once acute illness treated. -ENT: CT neck was negative. No mass visualized with laryngoscopy. Can follow up OP for post nasal drip -Sputum culture: MRSA -vancomycin and zosyn discontinued -Restarted on vancomycin on 01/28 -BCX NG to-date -Chest x-ray: Support equipment in good position. Small areas of atelectasis in both lung bases. (8) Diabetes Code(s): E11.9 - Type 2 diabetes mellitus without complications Status: Chronic Plan: Sliding scale insulin low Accu-Cheks Hypoglycemia protocol (9) Deep vein thrombosis (DVT) of brachial vein Code(s): I82.629 - Acute embolism and thrombosis of deep veins of unspecified upper extremity Status: Acute Plan: 1111 venous Doppler study: DVT of right mid brachial vein Anticoagulation therapy complicated given possible GI bleed -will follow critical care recommendations of Lovenox 40 (10) Nutrition, metabolism, and development symptoms Code(s): R63.8 - Other symptoms and signs concerning food and fluid intake Status: Acute Plan: Electrolytes: Replete as needed Diet: NPO, if passes bedside swallow can consider n.p.o. except medications. DVT prophylaxis: lovenox 40 <Mele Recinos - 01/28/18 11:22> - Attending Attestation This patient was seen and examined. The assessment and plan was discussed with the resident physician and I am in agreement with continued medical care as documented in this encounter. KUSUM WEISS MD <Kusum Weiss - 01/28/18 12:40>
[2018-01-28] MEDS: Haloperidol Inj 5 MG/ML Ampul IV.PUSH PRN ×3 (12:08→22:51)
[2018-01-28] MEDS: hydrALAZINE HCl Inj 20 MG/ML Vial IV.PUSH PRN (14:21)
[2018-01-28] MEDS: Propranolol 40 MG Tablet PO SCH ×2 (15:16→20:08)
[2018-01-28] MEDS: Enoxaparin Inj 40 MG/0.4 ML Syringe SQ SCH (16:13)
[2018-01-29] MEDS: Insulin NovoLOG Aspart Correctional Sugar Inj SQ SCH ×4 (00:12→19:32)
[2018-01-29] MEDS: Oral Hygiene Kit OROPHARYNG SCH ×5 (00:13→23:49)
[2018-01-29] MEDS: Benzonatate 100 MG Capsule PO SCH ×3 (04:43→20:14)
[2018-01-29] MEDS: Artificial Tears Opth Drops 15 ML Bottle EACH EYE SCH ×3 (05:49→22:04)
[2018-01-29 08:27] LABS: Baso # (Auto) 0.1 th/mm3 (0.0-0.2); Baso % (Auto) 1.1 % (0.0-2.0); Eos # (Auto) 0.2 th/mm3 (0.0-0.4); Eos % (Auto) 2.2 % (0.0-4.0); Hematocrit 30.6 % (39.0-51.0); Lymph # (Auto) 0.6 th/mm3 (1.0-4.8); Mean Corpuscular HGB Conc 32.7 % (32.0-36.0); Mean Corpuscular Hemoglobin 25.6 pg (27.0-34.0); Mean Corpuscular Volume 78.4 fL (80.0-100.0); Mono # (Auto) 1.1 th/mm3 (0.0-0.9); Mono % (Auto) 13.8 % (0.0-8.0); Neut % (Auto) 74.9 % (16.0-70.0); Platelet Count 103 th/mm3 (150-450); Red Blood Count 3.91 mil/mm3 (4.50-5.90); Red Cell Distribution Width 18.1 % (11.6-17.2)
[2018-01-29 08:46] LABS: Albumin 2.4 g/dL (3.4-5.0); Anion Gap 10 meq/L (5-15); Aspartate Aminotransferase 71 U/L (15-37); Blood Urea Nitrogen 16 mg/dL (7-18); Calcium 8.4 mg/dL (8.5-10.1); Carbon Dioxide 26.8 meq/L (21.0-32.0); Chloride 117 meq/L (98-107); Glomerular Filtration Rate Greater Than 89 mL/min (>89); Glucose,Random 121 mg/dL (74-106); Magnesium 1.8 mg/dL (1.5-2.5); Potassium 3.4 meq/L (3.5-5.1); Sodium 154 meq/L (136-145)
[2018-01-29 08:52] LABS: Alanine Aminotransferase 26 U/L (12-78); Alkaline Phosphatase 147 U/L (45-117)
[2018-01-29] MEDS: Pantoprazole Inj 40 MG Vial IV.PUSH SCH ×2 (09:08→20:16)
--- NOTE | 2018-01-29 09:51 | P.PNFP ---
Subjective Interval history: Patient seen and examined at bedside this morning. Patient was extubated on 01/27. He is currently on CIWA protocol, patient's most recent score is a 16, he is in restraints. Patient is still not oriented, unable to follow commands or hold conversation. He failed bedside swallow evaluation and refused NG tube placement. Speech therapy will be evaluating pt today. Pt BP continue to be elevated 170-180s/80s. <Mele Recinos D - 01/29/18 09:50> Results - Labs Result diagrams: 02/01/18 04:00 02/01/18 04:00 <Kusum Weiss R - 02/01/18 13:34> Abnormal lab results 01/31/18 01/31/18 02/01/18 Range/Units 17:15 23:37 04:00 WBC 12.8 H D (4.0-11.0) th/mm3 RBC 3.66 L (4.50-5.90) mil/mm3 Hgb 9.3 L (13.0-17.0) gm/dL Hct 29.2 L (39.0-51.0) % MCV 79.8 L (80.0-100.0) fL MCH 25.4 L (27.0-34.0) pg MCHC 31.8 L (32.0-36.0) % RDW 18.6 H (11.6-17.2) % Plt Count 120 L (150-450) th/mm3 MPV 6.7 L (7.0-11.0) fL Neut % (Auto) 74.4 H (16.0-70.0) % Lymph % (Auto) 6.6 L (9.0-44.0) % [place] % (Auto) 15.1 H (0.0-8.0) % Neut # (Auto) 9.5 H (1.8-7.7) th/mm3 Lymph # (Auto) 0.8 L (1.0-4.8) th/mm3 [place] # (Auto) 1.9 H (0.0-0.9) th/mm3 Sodium (136-145) meq/L Chloride (98-107) meq/L POC Glucose 131 H 120 H (68-110) mg/dl Random Glucose (74-106) mg/dL Calcium (8.5-10.1) mg/dL Total Bilirubin (0.2-1.0) mg/dL AST (15-37) U/L Alkaline Phosphatase (45-117) U/L Ammonia (11-32) mcmol/L Albumin (3.4-5.0) g/dL 02/01/18 02/01/18 Range/Units 04:00 04:00 WBC (4.0-11.0) th/mm3 RBC (4.50-5.90) mil/mm3 Hgb (13.0-17.0) gm/dL Hct (39.0-51.0) % MCV (80.0-100.0) fL MCH (27.0-34.0) pg MCHC (32.0-36.0) % RDW (11.6-17.2) % Plt Count (150-450) th/mm3 MPV (7.0-11.0) fL Neut % (Auto) (16.0-70.0) % Lymph % (Auto) (9.0-44.0) % [place] % (Auto) (0.0-8.0) % Neut # (Auto) (1.8-7.7) th/mm3 Lymph # (Auto) (1.0-4.8) th/mm3 [place] # (Auto) (0.0-0.9) th/mm3 Sodium 149 H (136-145) meq/L Chloride 116 H (98-107) meq/L POC Glucose (68-110) mg/dl Random Glucose 129 H (74-106) mg/dL Calcium 8.2 L (8.5-10.1) mg/dL Total Bilirubin 1.1 H (0.2-1.0) mg/dL AST 48 H (15-37) U/L Alkaline Phosphatase 198 H (45-117) U/L Ammonia 48 H (11-32) mcmol/L Albumin 2.5 L (3.4-5.0) g/dL Short CBC 02/01/18 Range/Units 04:00 WBC 12.8 H D (4.0-11.0) th/mm3 Hgb 9.3 L (13.0-17.0) gm/dL Hct 29.2 L (39.0-51.0) % Plt Count 120 L (150-450) th/mm3 BMP 01/31/18 02/01/18 20:57 04:00 Sodium 149 H Potassium 3.6 3.5 Chloride 116 H Carbon Dioxide 27.4 BUN 9 Creatinine 0.70 Calcium 8.2 L Liver Function 02/01/18 Range/Units 04:00 Total Bilirubin 1.1 H (0.2-1.0) mg/dL AST 48 H (15-37) U/L ALT 26 (12-78) U/L Alkaline Phosphatase 198 H (45-117) U/L Albumin 2.5 L (3.4-5.0) g/dL <JoseshanikaKusum ventura R - 02/01/18 13:34> Abnormal lab results 01/28/18 01/28/18 01/29/18 Range/Units 11:07 17:11 00:04 RBC (4.50-5.90) mil/mm3 Hgb (13.0-17.0) gm/dL Hct (39.0-51.0) % MCV (80.0-100.0) fL MCH (27.0-34.0) pg RDW (11.6-17.2) % Plt Count (150-450) th/mm3 Neut % (Auto) (16.0-70.0) % Lymph % (Auto) (9.0-44.0) % [place] % (Auto) (0.0-8.0) % Lymph # (Auto) (1.0-4.8) th/mm3 [place] # (Auto) (0.0-0.9) th/mm3 Sodium (136-145) meq/L Potassium (3.5-5.1) meq/L Chloride (98-107) meq/L POC Glucose 122 H 128 H 119 H (68-110) mg/dl Random Glucose (74-106) mg/dL Calcium (8.5-10.1) mg/dL AST (15-37) U/L Alkaline Phosphatase (45-117) U/L Ammonia (11-32) mcmol/L Albumin (3.4-5.0) g/dL 01/29/18 01/29/18 01/29/18 Range/Units 05:28 07:55 07:55 RBC 3.91 L (4.50-5.90) mil/mm3 Hgb 10.0 L (13.0-17.0) gm/dL Hct 30.6 L (39.0-51.0) % MCV 78.4 L (80.0-100.0) fL MCH 25.6 L (27.0-34.0) pg RDW 18.1 H (11.6-17.2) % Plt Count 103 L (150-450) th/mm3 Neut % (Auto) 74.9 H (16.0-70.0) % Lymph % (Auto) 8.0 L (9.0-44.0) % [place] % (Auto) 13.8 H (0.0-8.0) % Lymph # (Auto) 0.6 L (1.0-4.8) th/mm3 [place] # (Auto) 1.1 H (0.0-0.9) th/mm3 Sodium 154 H (136-145) meq/L Potassium 3.4 L (3.5-5.1) meq/L Chloride 117 H (98-107) meq/L POC Glucose 115 H (68-110) mg/dl Random Glucose 121 H (74-106) mg/dL Calcium 8.4 L (8.5-10.1) mg/dL AST 71 H (15-37) U/L Alkaline Phosphatase 147 H (45-117) U/L Ammonia (11-32) mcmol/L Albumin 2.4 L (3.4-5.0) g/dL 01/29/18 Range/Units 07:55 RBC (4.50-5.90) mil/mm3 Hgb (13.0-17.0) gm/dL Hct (39.0-51.0) % MCV (80.0-100.0) fL MCH (27.0-34.0) pg RDW (11.6-17.2) % Plt Count (150-450) th/mm3 Neut % (Auto) (16.0-70.0) % Lymph % (Auto) (9.0-44.0) % [place] % (Auto) (0.0-8.0) % Lymph # (Auto) (1.0-4.8) th/mm3 [place] # (Auto) (0.0-0.9) th/mm3 Sodium (136-145) meq/L Potassium (3.5-5.1) meq/L Chloride (98-107) meq/L POC Glucose (68-110) mg/dl Random Glucose (74-106) mg/dL Calcium (8.5-10.1) mg/dL AST (15-37) U/L Alkaline Phosphatase (45-117) U/L Ammonia 49 H (11-32) mcmol/L Albumin (3.4-5.0) g/dL Short CBC 01/29/18 Range/Units 07:55 WBC 8.0 (4.0-11.0) th/mm3 Hgb 10.0 L (13.0-17.0) gm/dL Hct 30.6 L (39.0-51.0) % Plt Count 103 L (150-450) th/mm3 BMP 01/29/18 07:55 Sodium 154 H Potassium 3.4 L Chloride 117 H Carbon Dioxide 26.8 BUN 16 Creatinine 0.82 Calcium 8.4 L Liver Function 01/29/18 Range/Units 07:55 Total Bilirubin 1.0 (0.2-1.0) mg/dL AST 71 H (15-37) U/L ALT 26 (12-78) U/L Alkaline Phosphatase 147 H (45-117) U/L Albumin 2.4 L (3.4-5.0) g/dL <Mele Recinos - 01/29/18 09:50> - Imaging Impressions Chest X-Ray 02/01/18 10:19 CONCLUSION: NG tube tip directed into the distal stomach. <Kusum Weiss - 02/01/18 13:34> Physical Exam Vital signs: Vital Signs 01/31/18 14:00 01/31/18 14:31 01/31/18 15:00 Temperature Pulse Rate 101 H 98 H 97 H Respiratory Rate 17 18 20 Blood Pressure 148/72 H 153/72 H 143/76 H Pulse Oximetry 95 94 L 94 L 01/31/18 15:30 01/31/18 16:00 01/31/18 16:01 Temperature 98.2 F Pulse Rate 97 H 94 H 93 H Respiratory Rate 25 H 21 25 H Blood Pressure 168/72 H 154/74 H Pulse Oximetry 94 L 95 96 01/31/18 16:30 01/31/18 17:00 01/31/18 17:30 Temperature Pulse Rate 95 H 94 H 94 H Respiratory Rate 24 20 24 Blood Pressure 147/79 H 135/75 131/78 Pulse Oximetry 98 97 96 01/31/18 18:00 01/31/18 18:30 01/31/18 19:00 Temperature Pulse Rate 95 H 98 H 99 H Respiratory Rate 22 21 56 H Blood Pressure 137/83 148/84 H Pulse Oximetry 95 97 96 01/31/18 19:01 01/31/18 19:31 01/31/18 20:00 Temperature 97.9 F Pulse Rate 98 H 100 H 99 H Respiratory Rate 50 H 26 H 36 H Blood Pressure 176/93 H 150/78 H Pulse Oximetry 94 L 96 92 L 01/31/18 20:07 01/31/18 20:30 01/31/18 21:00 Temperature Pulse Rate 101 H 109 H 102 H Respiratory Rate 34 H 27 H 26 H Blood Pressure 140/86 140/85 Pulse Oximetry 96 95 92 L 01/31/18 21:01 01/31/18 21:31 01/31/18 22:00 Temperature Pulse Rate 103 H 102 H 103 H Respiratory Rate 37 H 53 H 50 H Blood Pressure 157/91 H 175/85 H 158/89 H Pulse Oximetry 73 L 90 L 92 L 01/31/18 22:23 01/31/18 22:30 01/31/18 23:00 Temperature Pulse Rate 101 H 96 H Respiratory Rate 23 26 H Blood Pressure 158/87 H 158/89 H Pulse Oximetry 98 95 94 L 01/31/18 23:30 02/01/18 00:00 02/01/18 00:30 Temperature 99.1 F Pulse Rate 95 H 96 H 93 H Respiratory Rate 24 37 H 28 H Blood Pressure 159/81 H 160/94 H 160/79 H Pulse Oximetry 90 L 95 93 L 02/01/18 01:00 02/01/18 01:30 02/01/18 02:00 Temperature Pulse Rate 90 92 H 89 Respiratory Rate 27 H 44 H 32 H Blood Pressure 146/76 H 148/83 H 136/81 Pulse Oximetry 97 96 98 02/01/18 02:30 02/01/18 03:00 02/01/18 03:31 Temperature Pulse Rate 89 87 92 H Respiratory Rate 28 H 28 H 34 H Blood Pressure 145/87 H 143/85 H 174/83 H Pulse Oximetry 97 97 84 L 02/01/18 04:00 02/01/18 04:01 02/01/18 08:00 Temperature 98.6 F Pulse Rate 93 H 91 H Respiratory Rate 55 H 51 H Blood Pressure 166/83 H Pulse Oximetry 96 95 97 Intake & Output 01/31/18 02/01/18 02/01/18 18:59 06:59 18:59 Intake Total 1952 / 1952 1821 / 1821 Output Total 1625 / 1625 550 / 550 Balance 327 / 327 1271 / 1271 Weight 99.5 kg Intake: IV 1560 / 1560 1515 / 1515 D5W Inj 1,000 ML @ 84 mls/hr IV 700 / 700 1000 / 1000 .CONT .[id number] [facility] Rx#:[id number] KCl 20 mEq Premix Inj 20 meq In 360 / 360 100 ml @ 50 mls/hr IV.SIG Q2H PRN Rx#:[id number] Vancomycin Inj 1,500 MG In NS 500 / 500 515 / 515 Inj 500 ML @ 250 mls/hr IV.SIG Q12H [facility] Rx#:[id number] Tube Feeding 306 / 306 Tube Irrigant 120 / 120 Water Bolus Amount 250 / 250 Output: Urine 1625 / 1625 550 / 550 Other: Date of Last Bowel Movement 01/31/18 01/31/18 # Incontinent Bowel Movements 2 5 <Kusum Weiss R - 02/01/18 13:34> Vital Signs 01/28/18 09:56 01/28/18 10:00 01/28/18 10:03 Temperature Pulse Rate 121 H 104 H Respiratory Rate 39 H 10 L Blood Pressure 186/100 H 165/93 H Pulse Oximetry 97 97 97 01/28/18 10:30 01/28/18 11:00 01/28/18 11:30 Temperature Pulse Rate 103 H 102 H 105 H Respiratory Rate 18 26 H 23 Blood Pressure 183/96 H 166/86 H 190/96 H Pulse Oximetry 97 95 97 01/28/18 12:00 01/28/18 12:30 01/28/18 13:00 Temperature 99.2 F Pulse Rate 107 H 104 H Respiratory Rate 22 31 H Blood Pressure 163/90 H 174/89 H Pulse Oximetry 97 94 L 97 01/28/18 13:11 01/28/18 13:30 01/28/18 14:00 Temperature Pulse Rate 109 H 107 H 106 H Respiratory Rate 26 H 29 H 30 H Blood Pressure 147/94 H 179/91 H 195/88 H Pulse Oximetry 97 98 98 01/28/18 14:05 01/28/18 14:30 01/28/18 15:00 Temperature Pulse Rate 110 H 114 H 120 H Respiratory Rate 32 H 58 H 35 H Blood Pressure 200/91 H 190/85 H Pulse Oximetry 97 96 97 01/28/18 15:01 01/28/18 15:30 01/28/18 16:00 Temperature 99.2 F Pulse Rate 123 H 124 H 124 H Respiratory Rate 36 H 41 H 34 H Blood Pressure 196/81 H 194/90 H 221/98 H Pulse Oximetry 97 96 96 01/28/18 16:04 01/28/18 16:30 01/28/18 17:00 Temperature Pulse Rate 125 H 130 H 130 H Respiratory Rate 24 26 H 28 H Blood Pressure 204/94 H 168/77 H 164/78 H Pulse Oximetry 95 95 96 01/28/18 17:30 01/28/18 18:00 01/28/18 18:30 Temperature Pulse Rate 126 H 105 H 111 H Respiratory Rate 31 H 33 H 40 H Blood Pressure 168/74 H 146/73 H 155/72 H Pulse Oximetry 96 96 96 01/28/18 19:00 01/28/18 19:30 01/28/18 20:00 Temperature Pulse Rate 110 H 110 H 111 H Respiratory Rate 30 H 30 H 19 Blood Pressure 164/72 H 164/76 H 157/76 H Pulse Oximetry 96 97 97 01/28/18 20:30 01/28/18 21:00 01/28/18 21:30 Temperature Pulse Rate 111 H 114 H 113 H Respiratory Rate 16 21 23 Blood Pressure 174/89 H 169/83 H 176/87 H Pulse Oximetry 98 98 98 01/28/18 22:00 01/28/18 22:30 01/28/18 23:00 Temperature Pulse Rate 113 H 111 H 117 H Respiratory Rate 19 21 28 H Blood Pressure 195/87 H 190/87 H 196/84 H Pulse Oximetry 98 98 98 01/28/18 23:30 18 00:00 01/29/18 00:30 Temperature Pulse Rate 109 H 104 H 104 H Respiratory Rate 28 H 33 H 37 H Blood Pressure 184/86 H 168/72 H 162/71 H Pulse Oximetry 98 97 97 01/29/18 01:00 01/29/18 01:30 01/29/18 02:00 Temperature Pulse Rate 106 H 104 H 105 H Respiratory Rate 23 29 H 27 H Blood Pressure 173/75 H 154/67 H 155/69 H Pulse Oximetry 98 97 98 01/29/18 02:30 01/29/18 03:00 01/29/18 03:30 Temperature Pulse Rate 105 H 105 H 105 H Respiratory Rate 30 H 30 H 31 H Blood Pressure 156/70 H 156/72 H 163/72 H Pulse Oximetry 97 97 97 01/29/18 04:00 01/29/18 04:30 01/29/18 05:00 Temperature Pulse Rate 105 H 106 H 105 H Respiratory Rate 29 H 29 H 28 H Blood Pressure 160/72 H 171/74 H 156/70 H Pulse Oximetry 98 97 98 01/29/18 05:30 01/29/18 06:00 01/29/18 06:30 Temperature Pulse Rate 108 H 105 H 108 H Respiratory Rate 50 H 26 H 29 H Blood Pressure 161/73 H 180/85 H 172/82 H Pulse Oximetry 98 96 97 01/29/18 07:00 01/29/18 07:30 01/29/18 08:00 Temperature 98.7 F Pulse Rate 108 H 106 H 108 H Respiratory Rate 21 24 28 H Blood Pressure 170/81 H 177/82 H 181/86 H Pulse Oximetry 98 98 97 01/29/18 08:30 Temperature Pulse Rate 106 H Respiratory Rate 37 H Blood Pressure 180/81 H Pulse Oximetry 97 Intake & Output 01/28/18 01/29/18 01/29/18 18:59 06:59 18:59 Intake Total 515 / 515 515 / 515 Balance 515 / 515 515 / 515 Weight 101 kg Intake: IV 515 / 515 515 / 515 Vancomycin Inj 1,500 MG In NS 515 / 515 515 / 515 Inj 500 ML @ 250 mls/hr IV.SIG Q12H [facility] Rx#:[id number] Other: # Incontinent Voids 5 2 Date of Last Bowel Movement 01/28/18 01/28/18 01/28/18 # Incontinent Bowel Movements 2 1 <Mele Recinos D - 01/29/18 09:50> Narrative: GENERAL: 52-year-old male currently extubated, sleeping SKIN: Warm and dry. No petechia or rash HEAD: Atraumatic. Normocephalic. Patient with dried blood across the face likely due to healing abrasions that developed when he was intubated ENT: No nasal bleeding or discharge. NECK: Trachea midline. No JVD. CARDIOVASCULAR: Regular rate and rhythm. S1, S2 no S4. No murmur RESPIRATORY: B/l equal air entry. Coarse breath sound appreciated anteriorly. GASTROINTESTINAL: Abdomen soft, non-tender, slightly distended. MUSCULOSKELETAL: Extremities without clubbing, cyanosis, or edema. No obvious deformities. +2 PD pulses BL NEUROLOGICAL: limited, no focal neurological deficits noted on exam, <Mele Recinos - 01/29/18 09:50> - Urinary Catheter Management 400 Cath placed during this visit: no <Kusum Weiss R - 02/01/18 13:34> no <Mele Recinos D 01/29/18 09:50> Straight Cath placed during this visit: no <Kusum Weiss R - 02/01/18 13:34> yes, but has since been removed by the nurse <Mele Recinos 01/29/18 09:50> Reason for continuing: Not indwelling catheter <Mele Recnios - 01/29/18 09: 50> Insertion date: 01/26/18 <Mele Recinos D - 01/29/18 09:50> Insertion time: 17:30 <Mele Recinos - 01/29/18 09:50> Removal date: 01/26/18 <Mele Recinos D - 01/29/18 09:50> Removal time: 17:35 <Mele Recinos D - 01/29/18 09:50> Assessment and Plan - Assessment (1) Alcohol withdrawal Code(s): F10.239 - Alcohol dependence with withdrawal, unspecified Status: Acute (2) Abdominal pain Code(s): R10.9 - Unspecified abdominal pain Status: Acute (3) Esophageal varices in cirrhosis Code(s): K74.60 - Unspecified cirrhosis of liver; I85.10 - Secondary esophageal varices without bleeding Status: Chronic (4) Hypertension Code(s): I10 - Essential (primary) hypertension Status: Chronic (5) Alcohol abuse Code(s): F10.10 - Alcohol abuse, uncomplicated Status: Chronic (6) Depression with anxiety Code(s): F41.8 - Other specified anxiety disorders Status: Chronic (7) Cough Code(s): R05 - Cough Status: Acute (8) Diabetes Code(s): E11.9 - Type 2 diabetes mellitus without complications Status: Chronic (9) Deep vein thrombosis (DVT) of brachial vein Code(s): I82.629 - Acute embolism and thrombosis of deep veins of unspecified upper extremity Status: Acute (10) Nutrition, metabolism, and development symptoms Code(s): R63.8 - Other symptoms and signs concerning food and fluid intake Status: Acute <Kusum Weiss R - 02/01/18 13:34> (1) Alcohol withdrawal Code(s): F10.239 - Alcohol dependence with withdrawal, unspecified Status: Acute Plan: Patient with extensive alcohol abuse history for the past 30 years complicated by cirrhosis and esophageal variceal GI bleed. Currently receiving treatment for alcoholism at [facility] since July of this year. Reports he is taking a medication to help with his alcoholism however he has not been compliant and has been drinking at least 2 beers per day. Presented to the ED with severe abdominal pain, vomiting and nausea. Patient had worsening alcohol withdrawal symptoms and was transferred to critical care on 01/18. Thermodynamicist consulted, appreciate recommendations Patient placed on Precedex drip on 01/18; d/c on 01/27 Patient placed n.p.o., failed bedside swallow eval, will be re-evaluated by speech therapy today. Continue to monitor vital signs, continue to monitor ammonia and cmp Patient intubated on 01/19; CT brain: No acute abnormalities Continue vitamin bag daily times 3 days Valproate 500 p.o. daily CIWA protocol restarted since patient was extubated yesterday 01/27. Recent CIWA score this am of 16 requiring 2 mg of Ativan. Ammonia level elevated at 70-> 81->98->72->59->56-> 82->69->45->46; today at 49 Lactulose 4 times daily Rifaximin 550 BID (2) Abdominal pain Code(s): R10.9 - Unspecified abdominal pain Status: Acute Plan: Patient is a 52-year-old male with past medical history of alcoholism, cirrhosis and esophageal variceal GI bleed who presented to the ED with complaint of umbilical abdominal pain, nausea, and vomiting for the past 2 days. Patient reports tooth extraction 2 days prior to admission and malaise ( abdominal pain, vomiting x10 times with questionable blood in vomit which he attributes to tooth extraction however due to patient's history of upper GI bleed due to esophageal varices GI was consulted for further evaluation). On admission patient was slightly hypertensive however he was afebrile and no leukocytosis appreciated on CBC. CT abdomen: Showing edema of mesenteric, small metallic object in the transverse colon (which may have been part of patient's dental filling) and cirrhosis with portal hypertension and significant esophageal varices. Zofran for nausea Pain controlled with hydromorphone PRN which patient has had in the past without any adverse reactions; on hold Protonix IV twice daily Cipro for prophylaxis; discontinued 01/22 octreotide drip 25 mcg/h, discontinued GI consulted for further recommendations, -Protonix, prophylactic antibiotic and octreotide drip -H&H stable and abdominal ultrasound negative for ascites -EGD procedure 01/16 showed: Esophageal varices grade 2 status post 4 band applied, biopsies taken from gastric antrum. Repeat EGD in 2 months. -vocal cord mass noted on intubation and ENT was consulted for further evaluation. -non-selective beta deena and follow up outpatient in two weeks. - GI has signed off ENT consulted Normal evaluation of vocal cords with laryngoscope neck CT no abnormal findings, no evidence of laryngeal lesion -will assess as needed (3) Esophageal varices in cirrhosis Code(s): K74.60 - Unspecified cirrhosis of liver; I85.10 - Secondary esophageal varices without bleeding Status: Chronic Plan: See plan above for abdominal pain (4) Hypertension Code(s): I10 - Essential (primary) hypertension Status: Chronic Plan: Resume home medications Clonidine PRN Continue to monitor blood pressure. (5) Alcohol abuse Code(s): F10.10 - Alcohol abuse, uncomplicated Status: Chronic Plan: See alcohol withdrawal plan above (6) Depression with anxiety Code(s): F41.8 - Other specified anxiety disorders Status: Chronic Plan: Resume home medications (7) Cough Code(s): R05 - Cough Status: Acute Plan: Patient with history of chronic cough and wheezing. -GI saw abnormal vocal cords for EGD so consulted Pulmonology and ENT -Pulmonology: recommended aerosol treatment and tessalon 200 mg TID and smoking cessation. Recommended follow up pulmonary function studies once acute illness treated. -ENT: CT neck was negative. No mass visualized with laryngoscopy. Can follow up OP for post nasal drip -Sputum culture: MRSA -vancomycin and zosyn discontinued -Restarted on vancomycin on 01/28 -BCX NG to-date -Chest x-ray: Support equipment in good position. Small areas of atelectasis in both lung bases. (8) Diabetes Code(s): E11.9 - Type 2 diabetes mellitus without complications Status: Chronic Plan: Sliding scale insulin low Accu-Cheks Hypoglycemia protocol (9) Deep vein thrombosis (DVT) of brachial vein Code(s): I82.629 - Acute embolism and thrombosis of deep veins of unspecified upper extremity Status: Acute Plan: 1111 venous Doppler study: DVT of right mid brachial vein Anticoagulation therapy complicated given possible GI bleed -will follow critical care recommendations of Lovenox 40 (10) Nutrition, metabolism, and development symptoms Code(s): R63.8 - Other symptoms and signs concerning food and fluid intake Status: Acute Plan: Electrolytes: Replete as needed Diet: NPO, f/u speech swallow eval DVT prophylaxis: lovenox 40 <Mele Recinos - 01/29/18 09:36> - Attending Attestation This patient was seen and examined. The assessment and plan was discussed with the resident physician and I am in agreement with continued medical care as documented in this encounter. KUSUM WEISS MD <Kusum Weiss - 02/01/18 13:34>
[2018-01-29] MEDS: Labetalol HCl Inj 100 MG/20 ML Vial IV.PUSH PRN ×2 (10:18→20:16)
[2018-01-29] MEDS ORDERED: Pharmacy Ordered Lab Info OTHER ONE (10:45)
--- NOTE | 2018-01-29 12:10 | P.PNCC ---
Subjective Subjective Remarks/Hospital Course: The patient is a 52-year-old male with a past medical history of ETOH abuse, cirrhosis of liver secondary to alcohol, hypertension, diabetes mellitus, anxiety, depression, prior history of upper gastrointestinal bleed x2 due to esophageal varices. The patient was admitted under the family medicine team on 01/15/[address] for abdominal pain. A CT scan of the abdomen and pelvis showed a cirrhotic liver with evidence of portal hypertension and prominent gastroesophageal varices. No ascites noted. The patient also underwent an ultrasound of the abdomen, which showed no significant ascites. He was seen by GI service and underwent upper endoscopy on 01/16/2018 which showed grade 2 esophageal varices, status post banding x4, gastritis and hiatal hernia. The patient also had a CT scan of the chest on 01/16/2018 which showed mild infiltrates in the posterior lower lung hussein suggestive of atelectasis and nonspecific 1.5 cm lymph node in the anterior superior mediastinum. He is being followed by Dr. Maki from pulmonary service. Due to altered mental status and possible alcohol withdrawal he was transferred to ICU and critical care medicine was consulted for critical care management. He received Ativan 6-8 mg total along with Haldol and the patient remained restless and agitated. Most of the history was obtained from reviewing medical records as the patient is a poor historian. ABG was performed this morning on room air, which showed a pH of 7.44, CO2 41, PaO2 69, bicarbonate 27, saturation 91%. 01/19: Patient with worsening oxygenation status. Essentially unresponsive obtunded. Ammonia level is 98 this morning. Elective intubation. 01/20 Patient is intubated and sedated, afebrile. 01/21 Patient remains sedated with Fentnayl, Diprivan and Versed. T;100.5, CT brain yesterday no acute findings. 01/22: Remains intubated sedated Versed had been held since a.m. Remains unresponsive failed CPAP trial today due to tachypnea. Spontaneously moves lower extremities no spontaneous eye opening. Large amount of ET tube secretions reported. Sputum cx 01/19 MRSA 01/23: Remains sedated and intubated, some mild dyssynchrony with the vent during my exam. 01/24: Patient gets very agitated during sedation vacations, still requiring propofol/ versed/ fentanyl gtts. Temp is 99F, still diaphoretic on exam. 01/25: BUN/ creat trending up but urine output remains adequate. Patient's home med list includes bumex, will start diuresis today to see if this improves renal function. Of note, his home list also includes Fosrenal and mesalamine but it is unclear from previous records if patient has a h/o CKD or inflammatory bowel disease. 01/26: Creat plateaued and urine output much improved with dose of lasix yesterday, will restart home bumex dose. Propofol d/cd yesterday, versed currently on hold, precedex and fentanyl both at low doses. Copious thick secretions from ETT which are difficult to suction with in-line, will perform bedside bronch for pulmonary toilet. No contact info available for next of kin to obtain consent but patient will need this in preparation for extubation. 01/27: Patient had bronchoscopy performed yesterday, secretions are thinner and easier to suction as per RT. Balloon on ETT is sheared but patient is still receiving full tidal volumes. He is tolerating pressure support 10/5 at 40% this morning, would like to try to extubate today. 01/28: Patient extubated yesterday, still fairly encephalopathic and agitated. 01/29: Remains encephalopathic, failed swallow eval 2 days in a row, NGT attempted yesterday but patient coughed until it dislodged. Ativan requirements somewhat less today than yesterday. Objective Vital Signs / I&O: Vital Signs 01/28/18 12:30 01/28/18 13:00 01/28/18 13:11 Temperature Pulse Rate 104 H 109 H Respiratory Rate 31 H 26 H Blood Pressure 174/89 H 147/94 H Pulse Oximetry 94 L 97 97 01/28/18 13:30 01/28/18 14:00 01/28/18 14:05 Temperature Pulse Rate 107 H 106 H 110 H Respiratory Rate 29 H 30 H 32 H Blood Pressure 179/91 H 195/88 H 200/91 H Pulse Oximetry 98 98 97 01/28/18 14:30 01/28/18 15:00 01/28/18 15:01 Temperature Pulse Rate 114 H 120 H 123 H Respiratory Rate 58 H 35 H 36 H Blood Pressure 190/85 H 196/81 H Pulse Oximetry 96 97 97 01/28/18 15:30 01/28/18 16:00 01/28/18 16:04 Temperature 99.2 F Pulse Rate 124 H 124 H 125 H Respiratory Rate 41 H 34 H 24 Blood Pressure 194/90 H 221/98 H 204/94 H Pulse Oximetry 96 96 95 01/28/18 16:30 01/28/18 17:00 01/28/18 17:30 Temperature Pulse Rate 130 H 130 H 126 H Respiratory Rate 26 H 28 H 31 H Blood Pressure 168/77 H 164/78 H 168/74 H Pulse Oximetry 95 96 96 01/28/18 18:00 01/28/18 18:30 01/28/18 19:00 Temperature Pulse Rate 105 H 111 H 110 H Respiratory Rate 33 H 40 H 30 H Blood Pressure 146/73 H 155/72 H 164/72 H Pulse Oximetry 96 96 96 01/28/18 19:30 01/28/18 20:00 01/28/18 20:30 Temperature Pulse Rate 110 H 111 H 111 H Respiratory Rate 30 H 19 16 Blood Pressure 164/76 H 157/76 H 174/89 H Pulse Oximetry 97 97 98 01/28/18 21:00 01/28/18 21:30 01/28/18 22:00 Temperature Pulse Rate 114 H 113 H 113 H Respiratory Rate 21 23 19 Blood Pressure 169/83 H 176/87 H 195/87 H Pulse Oximetry 98 98 98 01/28/18 22:30 01/28/18 23:00 01/28/18 23:30 Temperature Pulse Rate 111 H 117 H 109 H Respiratory Rate 21 28 H 28 H Blood Pressure 190/87 H 196/84 H 184/86 H Pulse Oximetry 98 98 98 01/29/18 00:00 01/29/18 00:30 01/29/18 01:00 Temperature Pulse Rate 104 H 104 H 106 H Respiratory Rate 33 H 37 H 23 Blood Pressure 168/72 H 162/71 H 173/75 H Pulse Oximetry 97 97 98 01/29/18 01:30 01/29/18 02:00 01/29/18 02:30 Temperature Pulse Rate 104 H 105 H 105 H Respiratory Rate 29 H 27 H 30 H Blood Pressure 154/67 H 155/69 H 156/70 H Pulse Oximetry 97 98 97 01/29/18 03:00 01/29/18 03:30 01/29/18 04:00 Temperature Pulse Rate 105 H 105 H 105 H Respiratory Rate 30 H 31 H 29 H Blood Pressure 156/72 H 163/72 H 160/72 H Pulse Oximetry 97 97 98 01/29/18 04:30 01/29/18 05:00 01/29/18 05:30 Temperature Pulse Rate 106 H 105 H 108 H Respiratory Rate 29 H 28 H 50 H Blood Pressure 171/74 H 156/70 H 161/73 H Pulse Oximetry 97 98 98 01/29/18 06:00 01/29/18 06:30 01/29/18 07:00 Temperature Pulse Rate 105 H 108 H 108 H Respiratory Rate 26 H 29 H 21 Blood Pressure 180/85 H 172/82 H 170/81 H Pulse Oximetry 96 97 98 01/29/18 07:30 01/29/18 08:00 01/29/18 08:30 Temperature 98.7 F Pulse Rate 106 H 108 H 106 H Respiratory Rate 24 28 H 37 H Blood Pressure 177/82 H 181/86 H 180/81 H Pulse Oximetry 98 97 97 Intake & Output 01/28/18 01/29/18 01/29/18 18:59 06:59 18:59 Intake Total 515 / 515 515 / 515 Balance 515 / 515 515 / 515 Weight 101 kg Intake: IV 515 / 515 515 / 515 Vancomycin Inj 1,500 MG In NS 515 / 515 515 / 515 Inj 500 ML @ 250 mls/hr IV.SIG Q12H MANUEL Rx#:[id number] Other: # Incontinent Voids 5 2 Date of Last Bowel Movement 01/28/18 01/28/18 01/28/18 # Incontinent Bowel Movements 2 1 Result Diagrams: 01/29/18 07:55 01/29/18 07:55 Objective Remarks: GENERAL: Mildly agitated SKIN: Warm, dry HEENT: NCAT. Eczema to lower face NECK: Trachea midline. CARDIOVASCULAR: Regular rate and rhythm. No murmur RESPIRATORY: Coarse breath sounds bilaterally, strong cough GASTROINTESTINAL: Abdomen soft, non-tender, non-distended. MUSCULOSKELETAL: Trace extremity edema. NEUROLOGICAL: GCS 13 ([id number]), tells me "I want a beer" when I asked him his name. PSYCH: Agitated Assessment and Plan - Assessment and Plan Plan: 1. Altered mental status/toxic metabolic encephalopathy secondary to elevated ammonia and delirium tremens. 2. Acute respiratory failure, MRSA in sputum 3. Cirrhosis of the liver secondary to ETOH abuse, Hepatic encephalopathy 4. 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 5. Hypertension. 6. Diabetes mellitus hemoglobin A1c 6.0. 7. Ongoing abuse/EtOH 8. History of cannabinoids use 9. Hypoalbuminemia 10. Esophageal varices status post banding by GI 11. Elevated BMI Neuro/Psych: Continue PO lactulose and rifaximin, trend ammonia (49 today) Continue CIWA protocol CV: Monitor HR and BP keep MAP>65mmHg Hold lisinopril due to elevated creat (see below) Continue PRN clonidine 0.1 mg every 6 hours Continue Inderal 40 mg BID Increase amlodipine to 10 mg daily Continue pravastatin 40 mg daily for hyperlipidemia Resp: Albuterol/ipratropium aerosols every 4 hours with albuterol aerosols every 2 hours as needed dyspnea. Aggressive chest PT CPAP prn GI: Status post EGD on 01/16/2018 which showed grade 2 esophageal varices, status post banding x4. Abdominal ultrasound on 01/15/2018 showed no evidence of significant ascites. Pantoprazole 40 m IV twice daily for GI prophylaxis On lactulose 30 cc QID and Xifaxan 550 mg twice daily. Ammonia level 49 Speech eval, if fails will need NGT (prefer pediatric NGT or small adult NGT given history of varices) : Monitor renal function, creat and urine output much improved, continue home dose of bumex Hypernatremia- start D51/2NS at maintenance Electrolyte replacement per protocol Endo: Sliding scale insulin with Accu-Cheks every 6 hours to maintain euglycemia Hemoglobin A1c was 6.0 Heme: Monitor CBC ID: s/p 7 day treatment for MRSA pneumonia, observe off antibiotics Access -Utilize peripheral IV. Prophylaxis - GI-pantoprazole - DVT SCD/ lovenox - 01/19 Doppler US RUE: Positive for nonocclusive deep venous thrombosis in the right mid brachial vein, follow up scan on 01/27 showed no DVT, no concerning signs or symptoms of PE Level 2 follow up To help prompt me to consider important information that might be impacting today's encounter and assessment, information from prior notes written by myself or my colleagues may have been "brought forward" into today's note. My signature on this note, however, is an attestation that I personally performed the exam, history, and/or decision-making noted today, and, unless otherwise indicated, the interactions with patient, family, and staff as well as the review of records all occurred today. I also attest that the listed assessment and stated plan reflect my best clinical judgment today based on the combination of historical information, prior notes, and today's exam/ interactions. Code Status: Full
--- NOTE | 2018-01-29 14:07 | P.PNPL ---
Subjective Interval history: 52 YO male with GIB, cirrhosis Developed resp distress, agitation Extubated 01/27 Opens eyes, follows simple commands On NC Still encephalopathic. Physical Exam Vital signs: Vital Signs 01/28/18 14:30 01/28/18 15:00 01/28/18 15:01 Temperature Pulse Rate 114 H 120 H 123 H Respiratory Rate 58 H 35 H 36 H Blood Pressure 190/85 H 196/81 H Pulse Oximetry 96 97 97 01/28/18 15:30 01/28/18 16:00 01/28/18 16:04 Temperature 99.2 F Pulse Rate 124 H 124 H 125 H Respiratory Rate 41 H 34 H 24 Blood Pressure 194/90 H 221/98 H 204/94 H Pulse Oximetry 96 96 95 01/28/18 16:30 01/28/18 17:00 01/28/18 17:30 Temperature Pulse Rate 130 H 130 H 126 H Respiratory Rate 26 H 28 H 31 H Blood Pressure 168/77 H 164/78 H 168/74 H Pulse Oximetry 95 96 96 01/28/18 18:00 01/28/18 18:30 01/28/18 19:00 Temperature Pulse Rate 105 H 111 H 110 H Respiratory Rate 33 H 40 H 30 H Blood Pressure 146/73 H 155/72 H 164/72 H Pulse Oximetry 96 96 96 01/28/18 19:30 01/28/18 20:00 01/28/18 20:30 Temperature Pulse Rate 110 H 111 H 111 H Respiratory Rate 30 H 19 16 Blood Pressure 164/76 H 157/76 H 174/89 H Pulse Oximetry 97 97 98 01/28/18 21:00 01/28/18 21:30 01/28/18 22:00 Temperature Pulse Rate 114 H 113 H 113 H Respiratory Rate 21 23 19 Blood Pressure 169/83 H 176/87 H 195/87 H Pulse Oximetry 98 98 98 01/28/18 22:30 01/28/18 23:00 01/28/18 23:30 Temperature Pulse Rate 111 H 117 H 109 H Respiratory Rate 21 28 H 28 H Blood Pressure 190/87 H 196/84 H 184/86 H Pulse Oximetry 98 98 98 01/29/18 00:00 01/29/18 00:30 01/29/18 01:00 Temperature Pulse Rate 104 H 104 H 106 H Respiratory Rate 33 H 37 H 23 Blood Pressure 168/72 H 162/71 H 173/75 H Pulse Oximetry 97 97 98 01/29/18 01:30 01/29/18 02:00 01/29/18 02:30 Temperature Pulse Rate 104 H 105 H 105 H Respiratory Rate 29 H 27 H 30 H Blood Pressure 154/67 H 155/69 H 156/70 H Pulse Oximetry 97 98 97 01/29/18 03:00 01/29/18 03:30 01/29/18 04:00 Temperature Pulse Rate 105 H 105 H 105 H Respiratory Rate 30 H 31 H 29 H Blood Pressure 156/72 H 163/72 H 160/72 H Pulse Oximetry 97 97 98 01/29/18 04:30 01/29/18 05:00 01/29/18 05:30 Temperature Pulse Rate 106 H 105 H 108 H Respiratory Rate 29 H 28 H 50 H Blood Pressure 171/74 H 156/70 H 161/73 H Pulse Oximetry 97 98 98 01/29/18 06:00 01/29/18 06:30 01/29/18 07:00 Temperature Pulse Rate 105 H 108 H 108 H Respiratory Rate 26 H 29 H 21 Blood Pressure 180/85 H 172/82 H 170/81 H Pulse Oximetry 96 97 98 01/29/18 07:30 01/29/18 08:00 01/29/18 08:30 Temperature 98.7 F Pulse Rate 106 H 108 H 106 H Respiratory Rate 24 28 H 37 H Blood Pressure 177/82 H 181/86 H 180/81 H Pulse Oximetry 98 97 97 Intake & Output 01/28/18 01/29/18 01/29/18 18:59 06:59 18:59 Intake Total 515 / 515 515 / 515 Balance 515 / 515 515 / 515 Weight 101 kg Intake: IV 515 / 515 515 / 515 Vancomycin Inj 1,500 MG In NS 515 / 515 515 / 515 Inj 500 ML @ 250 mls/hr IV.SIG Q12H MANUEL Rx#:[id number] Other: # Incontinent Voids 5 2 Date of Last Bowel Movement 01/28/18 01/28/18 01/28/18 # Incontinent Bowel Movements 2 1 GENERAL: WBWN Mild sob SKIN: Warm and dry. HEAD: Normocephalic. EYES: No scleral icterus. No injection or drainage. NECK: Supple, trachea midline. No JVD or lymphadenopathy. CARDIOVASCULAR: Regular rate and rhythm without murmurs, gallops, or rubs. RESPIRATORY: Breath sounds equal bilaterally. No accessory muscle use. GASTROINTESTINAL: Abdomen soft, non-tender, nondistended. MUSCULOSKELETAL: No cyanosis, or edema. BACK: Nontender without obvious deformity. No CVA tenderness. - Urinary Catheter Management Straight Cath placed during this visit: yes, but has since been removed by the nurse Reason for continuing: Not indwelling catheter Insertion date: 01/26/18 Insertion time: 17:30 Removal date: 01/26/18 Removal time: 17:35 400 Cath placed during this visit: no Assessment and Plan - Plan IMPRESSION: 1. Mild shortness of breath and cough, possibly underlying asthma. 2. Hypertension. 3. Diabetes mellitus. 4. Cirrhosis of the liver. 5. VDRF, s/p extubation 01/27 6. Encephalopathy. PLAN: Supplement 02 CPAP prn sob Depakote 500 mg daily Monitor Ammonia level. Oral suction prn.
[2018-01-29] MEDS: hydrALAZINE HCl Inj 20 MG/ML Vial IV.PUSH PRN ×2 (14:09→23:03)
[2018-01-29] MEDS: Enoxaparin Inj 40 MG/0.4 ML Syringe SQ SCH (14:10)
[2018-01-29] MEDS: Vancomycin Inj 1,500 MG in Sodium Chlor 0.9% Inj 500 ML IV.SIG SCH ×2 (14:16→23:48)
[2018-01-29] MEDS: Multivit/Folic Acid/Minerals Chewable Tablets CHEW SCH (14:35)
[2018-01-29] MEDS: Chlorhexidine 0.12% Oral Kit 15 ML UDC OROPHARYNG SCH ×2 (14:35→20:13)
[2018-01-29] MEDS: amLODIPine 5 MG Tablet PO SCH (14:36)
[2018-01-29] MEDS: Senna/Docusate Sodium 8.6/50 MG Tablet PO SCH ×2 (14:36→20:14)
[2018-01-29] MEDS: rifAXIMin 550 MG Tablet PO SCH ×2 (14:36→20:16)
[2018-01-29] MEDS: Propranolol 40 MG Tablet PO SCH ×2 (14:36→20:16)
[2018-01-29] MEDS ORDERED: Magnesium Sulfate Inj 4 GM in Sodium Chlor 0.9% Inj 92 ML IV.SIG PRN (14:38)
[2018-01-29] MEDS ORDERED: Magnesium Oxide 400 MG Tablet PO PRN (14:38)
[2018-01-29] MEDS ORDERED: Potassium Chlor 40 mEq Premix 40 MEQ/100 ML PIGGYBACK IV.SIG PRN ×2 (14:38)
[2018-01-29] MEDS ORDERED: Magnesium Sulfate Inj 2 GM in Sodium Chlor 0.9% Inj 96 ML IV.SIG PRN (14:38)
[2018-01-29] MEDS ORDERED: Sodium Phosphate Inj 30 MMOL in Sodium Chlor 0.9% Inj 250 ML IV.SIG PRN (14:38)
[2018-01-29] MEDS ORDERED: Potassium Chloride 25 MEQ Effervescent Tablet PO PRN (14:38)
[2018-01-29] MEDS ORDERED: Potassium Phosphate Inj 30 MMOL in Sodium Chlor 0.9% Inj 250 ML IV.SIG PRN (14:38)
[2018-01-29] MEDS ORDERED: Potassium Phosphate 500 MG Soluble Tablet PO PRN ×2 (14:38)
[2018-01-29] MEDS: Dextrose 5%/NaCl 0.45% Inj 1,000 ML IV.CONT SCH (15:56)
[2018-01-29] MEDS: Potassium Chlor 20 mEq Premix 20 MEQ/100 ML PIGGYBACK IV.SIG PRN ×2 (15:59→20:50)
[2018-01-29] MEDS: amLODIPine 10 MG Tablet PO SCH (20:15)
[2018-01-30] MEDS ORDERED: Sodium Chloride 0.9% 2 ML Flush PRN IV.FLUSH (00:30)
[2018-01-30] MEDS: Insulin NovoLOG Aspart Correctional Sugar Inj SQ SCH ×4 (00:52→17:02)
[2018-01-30] MEDS: Dextrose 5%/NaCl 0.45% Inj 1,000 ML IV.CONT SCH (03:08)
[2018-01-30] MEDS: Oral Hygiene Kit OROPHARYNG SCH ×3 (03:09→15:27)
[2018-01-30] MEDS: Labetalol HCl Inj 100 MG/20 ML Vial IV.PUSH PRN ×4 (03:09→22:38)
[2018-01-30] MEDS: Benzonatate 100 MG Capsule PO SCH ×3 (04:59→20:17)
[2018-01-30] MEDS: Artificial Tears Opth Drops 15 ML Bottle EACH EYE SCH ×3 (05:12→22:04)
[2018-01-30] MEDS: hydrALAZINE HCl Inj 20 MG/ML Vial IV.PUSH PRN ×3 (05:15→16:49)
[2018-01-30 05:49] LABS: Baso # (Auto) 0.1 th/mm3 (0.0-0.2); Baso % (Auto) 0.8 % (0.0-2.0); Eos # (Auto) 0.2 th/mm3 (0.0-0.4); Eos % (Auto) 2.1 % (0.0-4.0); Hematocrit 30.6 % (39.0-51.0); Hemoglobin 10.1 gm/dL (13.0-17.0); Lymph # (Auto) 0.6 th/mm3 (1.0-4.8); Lymph % (Auto) 7.3 % (9.0-44.0); Mean Corpuscular Hemoglobin 25.9 pg (27.0-34.0); Mean Corpuscular Volume 78.5 fL (80.0-100.0); Mono % (Auto) 12.9 % (0.0-8.0); Neut # (Auto) 6.2 th/mm3 (1.8-7.7); Neut % (Auto) 76.9 % (16.0-70.0); Platelet Count 119 th/mm3 (150-450); Red Cell Distribution Width 18.7 % (11.6-17.2)
[2018-01-30 06:21] LABS: Alanine Aminotransferase 25 U/L (12-78); Albumin 2.5 g/dL (3.4-5.0); Alkaline Phosphatase 148 U/L (45-117); Anion Gap 8 meq/L (5-15); Aspartate Aminotransferase 65 U/L (15-37); Blood Urea Nitrogen 15 mg/dL (7-18); Calcium 8.4 mg/dL (8.5-10.1); Carbon Dioxide 26.2 meq/L (21.0-32.0); Chloride 119 meq/L (98-107); Glomerular Filtration Rate Greater Than 89 mL/min (>89); Glucose,Random 148 mg/dL (74-106); Magnesium 1.9 mg/dL (1.5-2.5); Potassium 4.4 meq/L (3.5-5.1); Sodium 153 meq/L (136-145)
[2018-01-30] MEDS: rifAXIMin 550 MG Tablet PO SCH ×2 (08:57→20:21)
[2018-01-30] MEDS: Pantoprazole Inj 40 MG Vial IV.PUSH SCH ×2 (08:57→20:18)
[2018-01-30] MEDS: Sodium Chloride 0.9% 2 ML Flush BID IV.FLUSH SCH ×2 (08:57→20:17)
[2018-01-30] MEDS: Senna/Docusate Sodium 8.6/50 MG Tablet PO SCH ×2 (08:57→20:17)
[2018-01-30] MEDS: Chlorhexidine 0.12% Oral Kit 15 ML UDC OROPHARYNG SCH ×2 (08:57→20:17)
[2018-01-30] MEDS: amLODIPine 10 MG Tablet PO SCH (08:58)
[2018-01-30] MEDS: Propranolol 40 MG Tablet PO SCH ×2 (08:58→20:17)
[2018-01-30] MEDS: Multivit/Folic Acid/Minerals Chewable Tablets CHEW SCH (08:58)
--- NOTE | 2018-01-30 09:15 | P.PNFP ---
Subjective Interval history: Patient drowsy and mumbling in bed. No clear words. Does not appear to be anxious or aggitated. According to nursing has been agitated. CIWA overnight 19,9,9,13. Patient failed bedside swallow and coughed/resisted attempt for NG tube. <Irma Zhang C - 01/30/18 09:14> Results - Labs Result diagrams: 02/01/18 04:00 02/01/18 04:00 <Kusum Weiss R - 02/01/18 13:46> Abnormal lab results 01/31/18 01/31/18 02/01/18 Range/Units 17:15 23:37 04:00 WBC 12.8 H D (4.0-11.0) th/mm3 RBC 3.66 L (4.50-5.90) mil/mm3 Hgb 9.3 L (13.0-17.0) gm/dL Hct 29.2 L (39.0-51.0) % MCV 79.8 L (80.0-100.0) fL MCH 25.4 L (27.0-34.0) pg MCHC 31.8 L (32.0-36.0) % RDW 18.6 H (11.6-17.2) % Plt Count 120 L (150-450) th/mm3 MPV 6.7 L (7.0-11.0) fL Neut % (Auto) 74.4 H (16.0-70.0) % Lymph % (Auto) 6.6 L (9.0-44.0) % [place] % (Auto) 15.1 H (0.0-8.0) % Neut # (Auto) 9.5 H (1.8-7.7) th/mm3 Lymph # (Auto) 0.8 L (1.0-4.8) th/mm3 [place] # (Auto) 1.9 H (0.0-0.9) th/mm3 Sodium (136-145) meq/L Chloride (98-107) meq/L POC Glucose 131 H 120 H (68-110) mg/dl Random Glucose (74-106) mg/dL Calcium (8.5-10.1) mg/dL Total Bilirubin (0.2-1.0) mg/dL AST (15-37) U/L Alkaline Phosphatase (45-117) U/L Ammonia (11-32) mcmol/L Albumin (3.4-5.0) g/dL 02/01/18 02/01/18 Range/Units 04:00 04:00 WBC (4.0-11.0) th/mm3 RBC (4.50-5.90) mil/mm3 Hgb (13.0-17.0) gm/dL Hct (39.0-51.0) % MCV (80.0-100.0) fL MCH (27.0-34.0) pg MCHC (32.0-36.0) % RDW (11.6-17.2) % Plt Count (150-450) th/mm3 MPV (7.0-11.0) fL Neut % (Auto) (16.0-70.0) % Lymph % (Auto) (9.0-44.0) % [place] % (Auto) (0.0-8.0) % Neut # (Auto) (1.8-7.7) th/mm3 Lymph # (Auto) (1.0-4.8) th/mm3 [place] # (Auto) (0.0-0.9) th/mm3 Sodium 149 H (136-145) meq/L Chloride 116 H (98-107) meq/L POC Glucose (68-110) mg/dl Random Glucose 129 H (74-106) mg/dL Calcium 8.2 L (8.5-10.1) mg/dL Total Bilirubin 1.1 H (0.2-1.0) mg/dL AST 48 H (15-37) U/L Alkaline Phosphatase 198 H (45-117) U/L Ammonia 48 H (11-32) mcmol/L Albumin 2.5 L (3.4-5.0) g/dL Short CBC 02/01/18 Range/Units 04:00 WBC 12.8 H D (4.0-11.0) th/mm3 Hgb 9.3 L (13.0-17.0) gm/dL Hct 29.2 L (39.0-51.0) % Plt Count 120 L (150-450) th/mm3 BMP 01/31/18 02/01/18 20:57 04:00 Sodium 149 H Potassium 3.6 3.5 Chloride 116 H Carbon Dioxide 27.4 BUN 9 Creatinine 0.70 Calcium 8.2 L Liver Function 02/01/18 Range/Units 04:00 Total Bilirubin 1.1 H (0.2-1.0) mg/dL AST 48 H (15-37) U/L ALT 26 (12-78) U/L Alkaline Phosphatase 198 H (45-117) U/L Albumin 2.5 L (3.4-5.0) g/dL <Kusum Weiss - 02/01/18 13:46> Abnormal lab results 01/29/18 01/29/18 01/29/18 Range/Units 11:32 12:14 17:12 RBC (4.50-5.90) mil/mm3 Hgb (13.0-17.0) gm/dL Hct (39.0-51.0) % MCV (80.0-100.0) fL MCH (27.0-34.0) pg RDW (11.6-17.2) % Plt Count (150-450) th/mm3 Neut % (Auto) (16.0-70.0) % Lymph % (Auto) (9.0-44.0) % [place] % (Auto) (0.0-8.0) % Lymph # (Auto) (1.0-4.8) th/mm3 [place] # (Auto) (0.0-0.9) th/mm3 Sodium (136-145) meq/L Chloride (98-107) meq/L POC Glucose 139 H 116 H (68-110) mg/dl Random Glucose (74-106) mg/dL Calcium (8.5-10.1) mg/dL Total Bilirubin (0.2-1.0) mg/dL AST (15-37) U/L Alkaline Phosphatase (45-117) U/L Ammonia (11-32) mcmol/L Albumin (3.4-5.0) g/dL Vancomycin Trough 14.2 H (5.0-10.0) mcg/mL 01/30/18 01/30/18 01/30/18 Range/Units 05:10 05:33 05:33 RBC 3.90 L (4.50-5.90) mil/mm3 Hgb 10.1 L (13.0-17.0) gm/dL Hct 30.6 L (39.0-51.0) % MCV 78.5 L (80.0-100.0) fL MCH 25.9 L (27.0-34.0) pg RDW 18.7 H (11.6-17.2) % Plt Count 119 L (150-450) th/mm3 Neut % (Auto) 76.9 H (16.0-70.0) % Lymph % (Auto) 7.3 L (9.0-44.0) % [place] % (Auto) 12.9 H (0.0-8.0) % Lymph # (Auto) 0.6 L (1.0-4.8) th/mm3 [place] # (Auto) 1.0 H (0.0-0.9) th/mm3 Sodium 153 H (136-145) meq/L Chloride 119 H (98-107) meq/L POC Glucose 149 H (68-110) mg/dl Random Glucose 148 H (74-106) mg/dL Calcium 8.4 L (8.5-10.1) mg/dL Total Bilirubin 1.2 H (0.2-1.0) mg/dL AST 65 H (15-37) U/L Alkaline Phosphatase 148 H (45-117) U/L Ammonia (11-32) mcmol/L Albumin 2.5 L (3.4-5.0) g/dL Vancomycin Trough (5.0-10.0) mcg/mL 01/30/18 Range/Units 05:33 RBC (4.50-5.90) mil/mm3 Hgb (13.0-17.0) gm/dL Hct (39.0-51.0) % MCV (80.0-100.0) fL MCH (27.0-34.0) pg RDW (11.6-17.2) % Plt Count (150-450) th/mm3 Neut % (Auto) (16.0-70.0) % Lymph % (Auto) (9.0-44.0) % [place] % (Auto) (0.0-8.0) % Lymph # (Auto) (1.0-4.8) th/mm3 [place] # (Auto) (0.0-0.9) th/mm3 Sodium (136-145) meq/L Chloride (98-107) meq/L POC Glucose (68-110) mg/dl Random Glucose (74-106) mg/dL Calcium (8.5-10.1) mg/dL Total Bilirubin (0.2-1.0) mg/dL AST (15-37) U/L Alkaline Phosphatase (45-117) U/L Ammonia 48 H (11-32) mcmol/L Albumin (3.4-5.0) g/dL Vancomycin Trough (5.0-10.0) mcg/mL Short CBC 01/30/18 Range/Units 05:33 WBC 8.0 (4.0-11.0) th/mm3 Hgb 10.1 L (13.0-17.0) gm/dL Hct 30.6 L (39.0-51.0) % Plt Count 119 L (150-450) th/mm3 BMP 01/30/18 05:33 Sodium 153 H Potassium 4.4 D Chloride 119 H Carbon Dioxide 26.2 BUN 15 Creatinine 0.80 Calcium 8.4 L Liver Function 01/30/18 Range/Units 05:33 Total Bilirubin 1.2 H (0.2-1.0) mg/dL AST 65 H (15-37) U/L ALT 25 (12-78) U/L Alkaline Phosphatase 148 H (45-117) U/L Albumin 2.5 L (3.4-5.0) g/dL <Irma Zhang - 01/30/18 09:14> - Imaging Impressions Chest X-Ray 02/01/18 10:19 CONCLUSION: NG tube tip directed into the distal stomach. <Kusum Weiss - 02/01/18 13:46> Physical Exam Vital signs: Vital Signs 01/31/18 14:00 01/31/18 14:31 01/31/18 15:00 Temperature Pulse Rate 101 H 98 H 97 H Respiratory Rate 17 18 20 Blood Pressure 148/72 H 153/72 H 143/76 H Pulse Oximetry 95 94 L 94 L 01/31/18 15:30 01/31/18 16:00 01/31/18 16:01 Temperature 98.2 F Pulse Rate 97 H 94 H 93 H Respiratory Rate 25 H 21 25 H Blood Pressure 168/72 H 154/74 H Pulse Oximetry 94 L 95 96 01/31/18 16:30 01/31/18 17:00 01/31/18 17:30 Temperature Pulse Rate 95 H 94 H 94 H Respiratory Rate 24 20 24 Blood Pressure 147/79 H 135/75 131/78 Pulse Oximetry 98 97 96 01/31/18 18:00 01/31/18 18:30 01/31/18 19:00 Temperature Pulse Rate 95 H 98 H 99 H Respiratory Rate 22 21 56 H Blood Pressure 137/83 148/84 H Pulse Oximetry 95 97 96 01/31/18 19:01 01/31/18 19:31 01/31/18 20:00 Temperature 97.9 F Pulse Rate 98 H 100 H 99 H Respiratory Rate 50 H 26 H 36 H Blood Pressure 176/93 H 150/78 H Pulse Oximetry 94 L 96 92 L 01/31/18 20:07 01/31/18 20:30 01/31/18 21:00 Temperature Pulse Rate 101 H 109 H 102 H Respiratory Rate 34 H 27 H 26 H Blood Pressure 140/86 140/85 Pulse Oximetry 96 95 92 L 01/31/18 21:01 01/31/18 21:31 01/31/18 22:00 Temperature Pulse Rate 103 H 102 H 103 H Respiratory Rate 37 H 53 H 50 H Blood Pressure 157/91 H 175/85 H 158/89 H Pulse Oximetry 73 L 90 L 92 L 01/31/18 22:23 01/31/18 22:30 01/31/18 23:00 Temperature Pulse Rate 101 H 96 H Respiratory Rate 23 26 H Blood Pressure 158/87 H 158/89 H Pulse Oximetry 98 95 94 L 01/31/18 23:30 02/01/18 00:00 02/01/18 00:30 Temperature 99.1 F Pulse Rate 95 H 96 H 93 H Respiratory Rate 24 37 H 28 H Blood Pressure 159/81 H 160/94 H 160/79 H Pulse Oximetry 90 L 95 93 L 02/01/18 01:00 02/01/18 01:30 02/01/18 02:00 Temperature Pulse Rate 90 92 H 89 Respiratory Rate 27 H 44 H 32 H Blood Pressure 146/76 H 148/83 H 136/81 Pulse Oximetry 97 96 98 02/01/18 02:30 02/01/18 03:00 02/01/18 03:31 Temperature Pulse Rate 89 87 92 H Respiratory Rate 28 H 28 H 34 H Blood Pressure 145/87 H 143/85 H 174/83 H Pulse Oximetry 97 97 84 L 02/01/18 04:00 02/01/18 04:01 02/01/18 08:00 Temperature 98.6 F Pulse Rate 93 H 91 H Respiratory Rate 55 H 51 H Blood Pressure 166/83 H Pulse Oximetry 96 95 97 Intake & Output 01/31/18 02/01/18 02/01/18 18:59 06:59 18:59 Intake Total 1952 / 1952 1821 / 1821 Output Total 1625 / 1625 550 / 550 Balance 327 / 327 1271 / 1271 Weight 99.5 kg Intake: IV 1560 / 1560 1515 / 1515 D5W Inj 1,000 ML @ 84 mls/hr IV 700 / 700 1000 / 1000 .CONT .[id number] [facility] Rx#:[id number] KCl 20 mEq Premix Inj 20 meq In 360 / 360 100 ml @ 50 mls/hr IV.SIG Q2H PRN Rx#:[id number] Vancomycin Inj 1,500 MG In NS 500 / 500 515 / 515 Inj 500 ML @ 250 mls/hr IV.SIG Q12H [facility] Rx#:[id number] Tube Feeding 306 / 306 Tube Irrigant 120 / 120 Water Bolus Amount 250 / 250 Output: Urine 1625 / 1625 550 / 550 Other: Date of Last Bowel Movement 01/31/18 01/31/18 # Incontinent Bowel Movements 2 5 <Kusum Wesis R - 02/01/18 13:46> Vital Signs 01/29/18 09:30 01/29/18 10:00 01/29/18 10:30 Temperature Pulse Rate 110 H 111 H 93 H Respiratory Rate 39 H 36 H 29 H Blood Pressure 180/80 H 201/86 H 172/77 H Pulse Oximetry 97 97 96 01/29/18 11:00 01/29/18 11:30 01/29/18 12:00 Temperature 97.9 F Pulse Rate 94 H 97 H 98 H Respiratory Rate 31 H 44 H 30 H Blood Pressure 188/84 H 185/83 H 193/82 H Pulse Oximetry 97 97 98 01/29/18 12:30 01/29/18 13:00 01/29/18 13:30 Temperature Pulse Rate 100 H 100 H 101 H Respiratory Rate 23 29 H 24 Blood Pressure 177/80 H 179/76 H 182/80 H Pulse Oximetry 97 98 98 01/29/18 14:00 01/29/18 14:30 01/29/18 15:00 Temperature Pulse Rate 102 H 114 H 115 H Respiratory Rate 50 H 54 H 55 H Blood Pressure 184/82 H 169/76 H 175/80 H Pulse Oximetry 98 96 95 01/29/18 15:30 01/29/18 16:00 01/29/18 16:30 Temperature 98.4 F Pulse Rate 115 H 112 H 111 H Respiratory Rate 55 H 30 H 46 H Blood Pressure 167/78 H 168/81 H 173/80 H Pulse Oximetry 97 97 97 01/29/18 17:00 01/29/18 17:30 01/29/18 18:00 Temperature Pulse Rate 109 H 109 H 112 H Respiratory Rate 40 H 28 H 26 H Blood Pressure 170/79 H 179/82 H Pulse Oximetry 97 97 96 01/29/18 18:26 01/29/18 18:30 01/29/18 19:51 Temperature Pulse Rate 112 H 111 H Respiratory Rate 25 H 26 H Blood Pressure 174/83 H 168/81 H Pulse Oximetry 98 98 99 01/29/18 20:00 01/30/18 00:00 01/30/18 04:00 Temperature 98.6 F 98.2 F Pulse Rate 114 H 113 H 102 H Respiratory Rate 32 H 29 H 20 Blood Pressure 194/91 H 144/71 H 170/84 H Pulse Oximetry 98 96 20 L 01/30/18 08:31 Temperature Pulse Rate Respiratory Rate Blood Pressure Pulse Oximetry 97 Intake & Output 01/29/18 01/30/18 01/30/18 18:59 06:59 18:59 Intake Total 615 / 615 615 / 615 Balance 615 / 615 615 / 615 Weight 101 kg Intake: IV 615 / 615 615 / 615 KCl 20 mEq Premix Inj 20 meq In 100 / 100 100 / 100 100 ml @ 50 mls/hr IV.SIG Q2H PRN Rx#:[id number] Vancomycin Inj 1,500 MG In NS 515 / 515 515 / 515 Inj 500 ML @ 250 mls/hr IV.SIG Q12H [facility] Rx#:[id number] Oral 0 / 0 Other: # Incontinent Voids 4 4 Date of Last Bowel Movement 01/28/18 01/28/18 # Incontinent Bowel Movements 0 <Irma Zhang - 01/30/18 09:14> Narrative: GENERAL: 52-year-old male currently extubated, drowsy and mumbling SKIN: Warm and dry. No petechia or rash HEAD: Atraumatic. Normocephalic. Patient with dried blood across the face likely due to healing abrasions that developed when he was intubated ENT: No nasal bleeding or discharge. NECK: Trachea midline. No JVD. CARDIOVASCULAR: Regular rate and rhythm. S1, S2 no S4. No murmur RESPIRATORY: B/l equal air entry. Coarse breath sound appreciated anteriorly. GASTROINTESTINAL: Abdomen soft, non-tender, slightly distended. MUSCULOSKELETAL: Extremities without clubbing, cyanosis, or edema. No obvious deformities. +2 PD pulses BL NEUROLOGICAL: limited, no focal neurological deficits noted on exam, <Irma Zhang 01/30/18 09:14> - Urinary Catheter Management 400 Cath placed during this visit: no <Kusum Weiss 02/01/18 13:46> no <Irma Zhang 01/30/18 09:14> Straight Cath placed during this visit: no <Kusum Weiss - 02/01/18 13:46> yes, but has since been removed by the nurse <Irma Zhang 01/30/18 09:14> Reason for continuing: Not indwelling catheter <Irma Zhang 01/30/18 09: 14> Insertion date: 01/26/18 <Irma Zhang 01/30/18 09:14> Insertion time: 17:30 <Irma Zhang 01/30/18 09:14> Removal date: 01/26/18 <Irma Zhang 01/30/18 09:14> Removal time: 17:35 <Irma Zhang 01/30/18 09:14> Assessment and Plan - Assessment (1) Alcohol withdrawal Code(s): F10.239 - Alcohol dependence with withdrawal, unspecified Status: Acute (2) Abdominal pain Code(s): R10.9 - Unspecified abdominal pain Status: Acute (3) Esophageal varices in cirrhosis Code(s): K74.60 - Unspecified cirrhosis of liver; I85.10 - Secondary esophageal varices without bleeding Status: Chronic (4) Hypertension Code(s): I10 - Essential (primary) hypertension Status: Chronic (5) Alcohol abuse Code(s): F10.10 - Alcohol abuse, uncomplicated Status: Chronic (6) Depression with anxiety Code(s): F41.8 - Other specified anxiety disorders Status: Chronic (7) Cough Code(s): R05 - Cough Status: Acute (8) Diabetes Code(s): E11.9 - Type 2 diabetes mellitus without complications Status: Chronic (9) Deep vein thrombosis (DVT) of brachial vein Code(s): I82.629 - Acute embolism and thrombosis of deep veins of unspecified upper extremity Status: Acute (10) Nutrition, metabolism, and development symptoms Code(s): R63.8 - Other symptoms and signs concerning food and fluid intake Status: Acute <Kusum Weiss Mick - 02/01/18 13:46> (1) Alcohol withdrawal Code(s): F10.239 - Alcohol dependence with withdrawal, unspecified Status: Acute Plan: Patient with extensive alcohol abuse history for the past 30 years complicated by cirrhosis and esophageal variceal GI bleed. Currently receiving treatment for alcoholism at [facility] since July of this year. Reports he is taking a medication to help with his alcoholism however he has not been compliant and has been drinking at least 2 beers per day. Presented to the ED with severe abdominal pain, vomiting and nausea. Patient had worsening alcohol withdrawal symptoms and was transferred to critical care on 01/18. Measurement Psychologist consulted, appreciate recommendations Patient placed on Precedex drip on 01/18; d/c on 01/27 Patient placed n.p.o., failed bedside swallow eval, will be re-evaluated by speech therapy today. Continue to monitor vital signs, continue to monitor ammonia and cmp Patient intubated on 01/19; CT brain: No acute abnormalities Continue vitamin bag daily times 3 days Valproate 500 p.o. daily CIWA protocol restarted since patient was extubated yesterday 01/27. Recent CIWA score this am of 16 requiring 2 mg of Ativan. Ammonia level elevated at 70-> 81->98->72->59->56-> 82->69->45->46; today at 48 Lactulose 4 times daily Rifaximin 550 BID (2) Abdominal pain Code(s): R10.9 - Unspecified abdominal pain Status: Acute Plan: Patient is a 52-year-old male with past medical history of alcoholism, cirrhosis and esophageal variceal GI bleed who presented to the ED with complaint of umbilical abdominal pain, nausea, and vomiting for the past 2 days. Patient reports tooth extraction 2 days prior to admission and malaise ( abdominal pain, vomiting x10 times with questionable blood in vomit which he attributes to tooth extraction however due to patient's history of upper GI bleed due to esophageal varices GI was consulted for further evaluation). On admission patient was slightly hypertensive however he was afebrile and no leukocytosis appreciated on CBC. CT abdomen: Showing edema of mesenteric, small metallic object in the transverse colon (which may have been part of patient's dental filling) and cirrhosis with portal hypertension and significant esophageal varices. Zofran for nausea Pain controlled with hydromorphone PRN which patient has had in the past without any adverse reactions; on hold Protonix IV twice daily Cipro for prophylaxis; discontinued 01/22 octreotide drip 25 mcg/h, discontinued GI consulted for further recommendations, -Protonix, prophylactic antibiotic and octreotide drip -H&H stable and abdominal ultrasound negative for ascites -EGD procedure 01/16 showed: Esophageal varices grade 2 status post 4 band applied, biopsies taken from gastric antrum. Repeat EGD in 2 months. -vocal cord mass noted on intubation and ENT was consulted for further evaluation. -non-selective beta deena and follow up outpatient in two weeks. - GI has signed off ENT consulted Normal evaluation of vocal cords with laryngoscope neck CT no abnormal findings, no evidence of laryngeal lesion -will assess as needed (3) Esophageal varices in cirrhosis Code(s): K74.60 - Unspecified cirrhosis of liver; I85.10 - Secondary esophageal varices without bleeding Status: Chronic Plan: See plan above for abdominal pain (4) Hypertension Code(s): I10 - Essential (primary) hypertension Status: Chronic Plan: Resume home medications Clonidine PRN Continue to monitor blood pressure. (5) Alcohol abuse Code(s): F10.10 - Alcohol abuse, uncomplicated Status: Chronic Plan: See alcohol withdrawal plan above (6) Depression with anxiety Code(s): F41.8 - Other specified anxiety disorders Status: Chronic Plan: Resume home medications (7) Cough Code(s): R05 - Cough Status: Acute Plan: Patient with history of chronic cough and wheezing. -GI saw abnormal vocal cords for EGD so consulted Pulmonology and ENT -Pulmonology: recommended aerosol treatment and tessalon 200 mg TID and smoking cessation. Recommended follow up pulmonary function studies once acute illness treated. -ENT: CT neck was negative. No mass visualized with laryngoscopy. Can follow up OP for post nasal drip -Sputum culture: MRSA -vancomycin and zosyn discontinued -Restarted on vancomycin on 01/28 -BCX NG to-date -Chest x-ray: Support equipment in good position. Small areas of atelectasis in both lung bases. (8) Diabetes Code(s): E11.9 - Type 2 diabetes mellitus without complications Status: Chronic Plan: Sliding scale insulin low Accu-Cheks Hypoglycemia protocol (9) Deep vein thrombosis (DVT) of brachial vein Code(s): I82.629 - Acute embolism and thrombosis of deep veins of unspecified upper extremity Status: Acute Plan: 1111 venous Doppler study: DVT of right mid brachial vein Anticoagulation therapy complicated given possible GI bleed -will follow critical care recommendations of Lovenox 40 (10) Nutrition, metabolism, and development symptoms Code(s): R63.8 - Other symptoms and signs concerning food and fluid intake Status: Acute Plan: Electrolytes: Replete as needed Diet: NPO, f/u speech swallow eval DVT prophylaxis: lovenox 40 <Irma Zhang - 01/30/18 09:12> - Attending Attestation This patient was seen and examined. The assessment and plan was discussed with the resident physician and I am in agreement with continued medical care as documented in this encounter. KUSUM WEISS MD <Kusum Weiss - 02/01/18 13:46>
--- NOTE | 2018-01-30 10:24 | P.PNCC ---
Subjective Subjective Remarks/Hospital Course: The patient is a 52-year-old male with a past medical history of ETOH abuse, cirrhosis of liver secondary to alcohol, hypertension, diabetes mellitus, anxiety, depression, prior history of upper gastrointestinal bleed x2 due to esophageal varices. The patient was admitted under the family medicine team on 01/15/[address] for abdominal pain. A CT scan of the abdomen and pelvis showed a cirrhotic liver with evidence of portal hypertension and prominent gastroesophageal varices. No ascites noted. The patient also underwent an ultrasound of the abdomen, which showed no significant ascites. He was seen by GI service and underwent upper endoscopy on 01/16/2018 which showed grade 2 esophageal varices, status post banding x4, gastritis and hiatal hernia. The patient also had a CT scan of the chest on 01/16/2018 which showed mild infiltrates in the posterior lower lung hussein suggestive of atelectasis and nonspecific 1.5 cm lymph node in the anterior superior mediastinum. He is being followed by Dr. Maki from pulmonary service. Due to altered mental status and possible alcohol remains quite encephalopathic and agitated. withdrawal he was transferred to ICU and critical care medicine was consulted for critical care management. He received Ativan 6-8 mg total along with Haldol and the patient remained restless and agitated. Most of the history was obtained from reviewing medical records as the patient is a poor historian. ABG was performed this morning on room air, which showed a pH of 7.44, CO2 41, PaO2 69, bicarbonate 27, saturation 91%. 01/19: Patient with worsening oxygenation status. Essentially unresponsive obtunded. Ammonia level is 98 this morning. Elective intubation. 01/20 Patient is intubated and sedated, afebrile. 01/21 Patient remains sedated with Fentnayl, Diprivan and Versed. T;100.5, CT brain yesterday no acute findings. 01/22: Remains intubated sedated Versed had been held since a.m. Remains unresponsive failed CPAP trial today due to tachypnea. Spontaneously moves lower extremities no spontaneous eye opening. Large amount of ET tube secretions reported. Sputum cx 01/19 MRSA 01/23: Remains sedated and intubated, some mild dyssynchrony with the vent during my exam. 01/24: Patient gets very agitated during sedation vacations, still requiring propofol/ versed/ fentanyl gtts. Temp is 99F, still diaphoretic on exam. 01/25: BUN/ creat trending up but urine output remains adequate. Patient's home med list includes bumex, will start diuresis today to see if this improves renal function. Of note, his home list also includes Fosrenal and mesalamine but it is unclear from previous records if patient has a h/o CKD or inflammatory bowel disease. 01/26: Creat plateaued and urine output much improved with dose of lasix yesterday, will restart home bumex dose. Propofol d/cd yesterday, versed currently on hold, precedex and fentanyl both at low doses. Copious thick secretions from ETT which are difficult to suction with in-line, will perform bedside bronch for pulmonary toilet. No contact info available for next of kin to obtain consent but patient will need this in preparation for extubation. 01/27: Patient had bronchoscopy performed yesterday, secretions are thinner and easier to suction as per RT. Balloon on ETT is sheared but patient is still receiving full tidal volumes. He is tolerating pressure support 10/5 at 40% this morning, would like to try to extubate today. 01/28: Patient extubated yesterday, still fairly encephalopathic and agitated. 01/29: Remains encephalopathic, failed swallow eval 2 days in a row, NGT attempted yesterday but patient coughed until it dislodged. Ativan requirements somewhat less today than yesterday. 01/30: Remains quite encephalopathic, very somnolent. Receiving Ativan per CIWA protocol. Remains in active alcohol withdrawal. Continues to fail swallow eval, and pulled out NG tube. Systolic blood pressure is high in 190s increase as needed labetalol to 20 mg IV every 2 hours as needed Objective Vital Signs / I&O: Vital Signs 01/29/18 10:30 01/29/18 11:00 01/29/18 11:30 Temperature Pulse Rate 93 H 94 H 97 H Respiratory Rate 29 H 31 H 44 H Blood Pressure 172/77 H 188/84 H 185/83 H Pulse Oximetry 96 97 97 01/29/18 12:00 01/29/18 12:30 01/29/18 13:00 Temperature 97.9 F Pulse Rate 98 H 100 H 100 H Respiratory Rate 30 H 23 29 H Blood Pressure 193/82 H 177/80 H 179/76 H Pulse Oximetry 98 97 98 01/29/18 13:30 01/29/18 14:00 01/29/18 14:30 Temperature Pulse Rate 101 H 102 H 114 H Respiratory Rate 24 50 H 54 H Blood Pressure 182/80 H 184/82 H 169/76 H Pulse Oximetry 98 98 96 01/29/18 15:00 01/29/18 15:30 01/29/18 16:00 Temperature 98.4 F Pulse Rate 115 H 115 H 112 H Respiratory Rate 55 H 55 H 30 H Blood Pressure 175/80 H 167/78 H 168/81 H Pulse Oximetry 95 97 97 01/29/18 16:30 01/29/18 17:00 01/29/18 17:30 Temperature Pulse Rate 111 H 109 H 109 H Respiratory Rate 46 H 40 H 28 H Blood Pressure 173/80 H 170/79 H 179/82 H Pulse Oximetry 97 97 97 01/29/18 18:00 01/29/18 18:26 01/29/18 18:30 Temperature Pulse Rate 112 H 112 H 111 H Respiratory Rate 26 H 25 H 26 H Blood Pressure 174/83 H 168/81 H Pulse Oximetry 96 98 98 01/29/18 19:51 01/29/18 20:00 01/30/18 00:00 Temperature 98.6 F Pulse Rate 114 H 113 H Respiratory Rate 32 H 29 H Blood Pressure 194/91 H 144/71 H Pulse Oximetry 99 98 96 01/30/18 04:00 01/30/18 08:00 01/30/18 08:31 Temperature 98.2 F 99.0 F Pulse Rate 102 H 108 H Respiratory Rate 20 26 H Blood Pressure 170/84 H 168/87 H Pulse Oximetry 20 L 92 L 97 Intake & Output 01/29/18 01/30/18 01/30/18 18:59 06:59 18:59 Intake Total 615 / 615 615 / 615 Balance 615 / 615 615 / 615 Weight 101 kg Intake: IV 615 / 615 615 / 615 KCl 20 mEq Premix Inj 20 meq In 100 / 100 100 / 100 100 ml @ 50 mls/hr IV.SIG Q2H PRN Rx#:[id number] Vancomycin Inj 1,500 MG In NS 515 / 515 515 / 515 Inj 500 ML @ 250 mls/hr IV.SIG Q12H MANUEL Rx#:[id number] Oral 0 / 0 Other: # Incontinent Voids 4 4 Date of Last Bowel Movement 01/28/18 01/28/18 01/28/18 # Incontinent Bowel Movements 0 Result Diagrams: 01/30/18 05:33 01/30/18 05:33 Objective Remarks: GENERAL: Somnolent encephalopathy not responding SKIN: Warm, dry HEENT: NCAT. Eczema to lower face NECK: Trachea midline. CARDIOVASCULAR: Tachycardic rate and rhythm. No murmur. Hypotensive systolic blood pressure in 190s RESPIRATORY: Coarse breath sounds bilaterally, strong cough GASTROINTESTINAL: Abdomen soft, non-tender, non-distended. MUSCULOSKELETAL: Trace extremity edema. NEUROLOGICAL: Somnolent encephalopathy moves extremities to stimulation did not follow commands Assessment and Plan - Assessment and Plan Plan: ASSESSMENT 1. Altered mental status/toxic metabolic encephalopathy secondary to elevated ammonia and delirium tremens. 2. Acute respiratory failure, MRSA in sputum 3. Cirrhosis of the liver secondary to ETOH abuse, Hepatic encephalopathy 4. 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 5. Hypertension. 6. Diabetes mellitus hemoglobin A1c 6.0. 7. Ongoing abuse/EtOH 8. History of cannabinoids use 9. Hypoalbuminemia 10. Esophageal varices status post banding by GI 11. Elevated BMI PLAN Neuro/Psych: Continue PO lactulose and rifaximin when patient can take orally, trend ammonia Continue CIWA protocol CV: Monitor HR and BP keep MAP>65mmHg Hold lisinopril due to elevated creat (see below) Continue PRN clonidine 0.1 mg every 6 hours Continue Inderal 40 mg BID Amlodipine to 10 mg daily Continue pravastatin 40 mg daily for hyperlipidemia Increase IV labetalol to 20 mg every 2 hours as needed for SBP more than 170 Resp: Albuterol/ipratropium aerosols every 4 hours with albuterol aerosols every 2 hours as needed dyspnea. Aggressive chest PT ABG today GI: Status post EGD on 01/16/2018 which showed grade 2 esophageal varices, status post banding x4. Abdominal ultrasound on 01/15/2018 showed no evidence of significant ascites. Pantoprazole 40 m IV twice daily for GI prophylaxis On lactulose 30 cc QID and Xifaxan 550 mg twice daily. Ammonia level 49 Failing speech eval, place NG tube again after sedation : Monitor renal function, creat and urine output much improved, continue home dose of bumex Hypernatremia-currently on D51/2NS at maintenance-will change to D5W Electrolyte replacement per protocol Endo: Sliding scale insulin with Accu-Cheks every 6 hours to maintain euglycemia Hemoglobin A1c was 6.0 Heme: Monitor CBC ID: s/p 7 day treatment for MRSA pneumonia, observe off antibiotics Access -Utilize peripheral IV. Prophylaxis - GI-pantoprazole - DVT SCD/ lovenox - 01/19 Doppler US RUE: Positive for nonocclusive deep venous thrombosis in the right mid brachial vein, follow up scan on 01/27 showed no DVT, no concerning signs or symptoms of PE Level 2 follow up To help prompt me to consider important information that might be impacting today's encounter and assessment, information from prior notes written by myself or my colleagues may have been "brought forward" into today's note. My signature on this note, however, is an attestation that I personally performed the exam, history, and/or decision-making noted today, and, unless otherwise indicated, the interactions with patient, family, and staff as well as the review of records all occurred today. I also attest that the listed assessment and stated plan reflect my best clinical judgment today based on the combination of historical information, prior notes, and today's exam/ interactions.
--- NOTE | 2018-01-30 10:30 | P.PNPL ---
Subjective Interval history: 52 YO male with GIB, cirrhosis Developed resp distress, agitation Extubated 01/27 Opens eyes, follows simple commands On NC Thick oral secretions Physical Exam Vital signs: Vital Signs 01/29/18 10:30 01/29/18 11:00 01/29/18 11:30 Temperature Pulse Rate 93 H 94 H 97 H Respiratory Rate 29 H 31 H 44 H Blood Pressure 172/77 H 188/84 H 185/83 H Pulse Oximetry 96 97 97 01/29/18 12:00 01/29/18 12:30 01/29/18 13:00 Temperature 97.9 F Pulse Rate 98 H 100 H 100 H Respiratory Rate 30 H 23 29 H Blood Pressure 193/82 H 177/80 H 179/76 H Pulse Oximetry 98 97 98 01/29/18 13:30 01/29/18 14:00 01/29/18 14:30 Temperature Pulse Rate 101 H 102 H 114 H Respiratory Rate 24 50 H 54 H Blood Pressure 182/80 H 184/82 H 169/76 H Pulse Oximetry 98 98 96 01/29/18 15:00 01/29/18 15:30 01/29/18 16:00 Temperature 98.4 F Pulse Rate 115 H 115 H 112 H Respiratory Rate 55 H 55 H 30 H Blood Pressure 175/80 H 167/78 H 168/81 H Pulse Oximetry 95 97 97 01/29/18 16:30 01/29/18 17:00 01/29/18 17:30 Temperature Pulse Rate 111 H 109 H 109 H Respiratory Rate 46 H 40 H 28 H Blood Pressure 173/80 H 170/79 H 179/82 H Pulse Oximetry 97 97 97 01/29/18 18:00 01/29/18 18:26 01/29/18 18:30 Temperature Pulse Rate 112 H 112 H 111 H Respiratory Rate 26 H 25 H 26 H Blood Pressure 174/83 H 168/81 H Pulse Oximetry 96 98 98 01/29/18 19:51 01/29/18 20:00 01/30/18 00:00 Temperature 98.6 F Pulse Rate 114 H 113 H Respiratory Rate 32 H 29 H Blood Pressure 194/91 H 144/71 H Pulse Oximetry 99 98 96 01/30/18 04:00 01/30/18 08:00 01/30/18 08:31 Temperature 98.2 F 99.0 F Pulse Rate 102 H 108 H Respiratory Rate 20 26 H Blood Pressure 170/84 H 168/87 H Pulse Oximetry 20 L 92 L 97 Intake & Output 01/29/18 01/30/18 01/30/18 18:59 06:59 18:59 Intake Total 615 / 615 615 / 615 Balance 615 / 615 615 / 615 Weight 101 kg Intake: IV 615 / 615 615 / 615 KCl 20 mEq Premix Inj 20 meq In 100 / 100 100 / 100 100 ml @ 50 mls/hr IV.SIG Q2H PRN Rx#:[id number] Vancomycin Inj 1,500 MG In NS 515 / 515 515 / 515 Inj 500 ML @ 250 mls/hr IV.SIG Q12H MANUEL Rx#:[id number] Oral 0 / 0 Other: # Incontinent Voids 4 4 Date of Last Bowel Movement 01/28/18 01/28/18 01/28/18 # Incontinent Bowel Movements 0 GENERAL: WBWN Mild sob Thick oral secretions SKIN: Warm and dry. HEAD: Normocephalic. EYES: No scleral icterus. No injection or drainage. NECK: Supple, trachea midline. No JVD or lymphadenopathy. CARDIOVASCULAR: Regular rate and rhythm without murmurs, gallops, or rubs. RESPIRATORY: Breath sounds equal bilaterally. No accessory muscle use. GASTROINTESTINAL: Abdomen soft, non-tender, nondistended. MUSCULOSKELETAL: No cyanosis, or edema. BACK: Nontender without obvious deformity. No CVA tenderness. - Urinary Catheter Management Straight Cath placed during this visit: yes, but has since been removed by the nurse Reason for continuing: Not indwelling catheter Insertion date: 01/26/18 Insertion time: 17:30 Removal date: 01/26/18 Removal time: 17:35 400 Cath placed during this visit: no Assessment and Plan - Plan IMPRESSION: 1. Mild shortness of breath and cough, possibly underlying asthma. 2. Hypertension. 3. Diabetes mellitus. 4. Cirrhosis of the liver. 5. VDRF, s/p extubation 01/27 6. Encephalopathy. PLAN: Supplement 02 CPAP prn sob Depakote 500 mg daily Monitor Ammonia level. Oral suction prn. DW Rt at BS
[2018-01-30 10:37] LABS: ABG Base Excess 2.9 mmol/L (-2-2); ABG PCO2 36 mmHg (38-42); ABG PO2 155 mmHG (61-120)
--- NOTE | 2018-01-30 10:52 | XR ---
EXAM DATE: 01/30/2018 10:49 AM EST AGE/SEX: 52 years / Male INDICATIONS: Respiratory disease. CLINICAL DATA: This is the patient's initial encounter. Patient reports that signs and symptoms have been present for 1 week and indicates a pain score of Nonresponsive. MEDICAL/SURGICAL HISTORY: Hypertension. diabetes, esophageal varices None. COMPARISON: [facility] – [place], CHEST 1V SINGLE AP, 01/26/2018. . FINDINGS: The heart size is normal. There is minimal increased density at the left base which appears to be imp roving. The right lung is clear. The costophrenic angles are clear. CONCLUSION: Minimal improving atelectasis or consolidation at the left base. Electronically signed by: Man Reed MD 01/30/2018 10:51 AM EST
[2018-01-30] MEDS: Dextrose 5% in Water Inj 1,000 ML IV.CONT SCH ×2 (12:10→22:04)
[2018-01-30] MEDS: Vancomycin Inj 1,500 MG in Sodium Chlor 0.9% Inj 500 ML IV.SIG SCH ×2 (12:11→22:04)
--- NOTE | 2018-01-30 15:21 | P.PNGI ---
Subjective Interval history: Patient obtunded Appears encephalopathic GI notified for NG tube placement for medication and nutrition <Celia Wing - Last Filed: 01/30/18 15:11> Physical Exam Vital signs: Vital Signs 01/29/18 15:30 01/29/18 16:00 01/29/18 16:30 Temperature 98.4 F Pulse Rate 115 H 112 H 111 H Respiratory Rate 55 H 30 H 46 H Blood Pressure 167/78 H 168/81 H 173/80 H Pulse Oximetry 97 97 97 01/29/18 17:00 01/29/18 17:30 01/29/18 18:00 Temperature Pulse Rate 109 H 109 H 112 H Respiratory Rate 40 H 28 H 26 H Blood Pressure 170/79 H 179/82 H Pulse Oximetry 97 97 96 01/29/18 18:26 01/29/18 18:30 01/29/18 19:51 Temperature Pulse Rate 112 H 111 H Respiratory Rate 25 H 26 H Blood Pressure 174/83 H 168/81 H Pulse Oximetry 98 98 99 01/29/18 20:00 01/30/18 00:00 01/30/18 04:00 Temperature 98.6 F 98.2 F Pulse Rate 114 H 113 H 102 H Respiratory Rate 32 H 29 H 20 Blood Pressure 194/91 H 144/71 H 170/84 H Pulse Oximetry 98 96 20 L 01/30/18 08:00 01/30/18 08:31 01/30/18 12:00 Temperature 99.0 F 98.9 F Pulse Rate 108 H 114 H Respiratory Rate 26 H 26 H Blood Pressure 168/87 H 172/87 H Pulse Oximetry 92 L 97 98 Intake & Output 01/29/18 01/30/18 01/30/18 18:59 06:59 18:59 Intake Total 615 / 615 615 / 615 515 / 515 Balance 615 / 615 615 / 615 515 / 515 Weight 101 kg Intake: IV 615 / 615 615 / 615 515 / 515 KCl 20 mEq Premix Inj 20 meq In 100 / 100 100 / 100 100 ml @ 50 mls/hr IV.SIG Q2H PRN Rx#:[id number] Vancomycin Inj 1,500 MG In NS 515 / 515 515 / 515 515 / 515 Inj 500 ML @ 250 mls/hr IV.SIG Q12H MANUEL Rx#:[id number] Oral 0 / 0 Other: # Incontinent Voids 4 4 Date of Last Bowel Movement 01/28/18 01/28/18 01/28/18 # Incontinent Bowel Movements 0 - Constitutional chronically ill appearing - Routine HEENT Exam Head: Present: normocephalic - Routine Respiratory Exam Present: diminished air movement Comments: Simple mask - Routine Abdominal Exam Present: soft, normoactive bowel sounds. Absent: tenderness, guarding, firm - Routine Skin Exam Present: dry, warm - Routine Neurological Exam Present: altered mental status - Urinary Catheter Management Straight Cath placed during this visit: yes, but has since been removed by the nurse Reason for continuing: Not indwelling catheter Insertion date: 01/26/18 Insertion time: 17:30 Removal date: 01/26/18 Removal time: 17:35 400 Cath placed during this visit: no <Celia Wing - Last Filed: 01/30/18 15:11> Vital signs: Vital Signs 01/30/18 12:00 01/30/18 16:00 01/30/18 20:00 Temperature 98.9 F 99.7 F H 98.9 F Pulse Rate 114 H 104 H 104 H Respiratory Rate 26 H 26 H 27 H Blood Pressure 172/87 H 170/93 H 139/81 Pulse Oximetry 98 99 92 L 01/30/18 20:15 01/31/18 00:00 01/31/18 04:00 Temperature 99 F 98.7 F Pulse Rate 91 H 97 H Respiratory Rate 27 H 30 H Blood Pressure 172/82 H 154/94 H Pulse Oximetry 97 97 98 01/31/18 07:47 Temperature Pulse Rate Respiratory Rate Blood Pressure Pulse Oximetry 94 L Intake & Output 01/30/18 01/31/18 01/31/18 18:59 06:59 18:59 Intake Total 1465 / 1465 1615 / 1615 Output Total 300 / 300 Balance 1465 / 1465 1315 / 1315 Weight 102 kg Intake: IV 1465 / 1465 1515 / 1515 D5W Inj 1,000 ML @ 84 mls/hr IV 1000 / 1000 .CONT .[id number] MANUEL Rx#:[id number] D5W/1/2 NS Inj 1,000 ML @ 84 950 / 950 mls/hr IV.CONT .[id number] MANUEL Rx# :[id number] Vancomycin Inj 1,500 MG In NS 515 / 515 515 / 515 Inj 500 ML @ 250 mls/hr IV.SIG Q12H MANUEL Rx#:[id number] Water Bolus Amount 100 / 100 Output: Urine 300 / 300 Other: # Voids 3 # Incontinent Voids 2 Date of Last Bowel Movement 01/28/18 01/28/18 # Bowel Movements 0 0 - Urinary Catheter Management Straight Cath placed during this visit: no 400 Cath placed during this visit: no <Richy Montoya - Last Filed: 01/31/18 10:24> Results - Labs CBC & Chem 7: 01/30/18 05:33 01/30/18 05:33 Laboratory Results - last 24 hr 01/29/18 01/30/18 01/30/18 17:12 00:12 05:10 WBC RBC Hgb Hct MCV MCH MCHC RDW Plt Count MPV Neut % (Auto) Lymph % (Auto) [place] % (Auto) Eos % (Auto) Baso % (Auto) Neut # (Auto) Lymph # (Auto) [place] # (Auto) Eos # (Auto) Baso # (Auto) WBC Differential Differential Comment Puncture Site Patient Temperature O2 Saturation ABG pH ABG pCO2 ABG pO2 ABG HCO3 ABG O2 Content ABG Base Excess ABG Methemoglobin Cristofer Test Hemoglobin Carboxyhemoglobin O2 Delivery Device Liter Flow Critical Value Sodium Potassium Chloride Carbon Dioxide Anion Gap BUN Creatinine Estimated GFR POC Glucose 116 H 110 149 H Random Glucose Calcium Magnesium Total Bilirubin AST ALT Alkaline Phosphatase Ammonia Total Protein Albumin 01/30/18 01/30/18 01/30/18 05:33 05:33 05:33 WBC 8.0 RBC 3.90 L Hgb 10.1 L Hct 30.6 L MCV 78.5 L MCH 25.9 L MCHC 33.0 RDW 18.7 H Plt Count 119 L MPV 7.0 Neut % (Auto) 76.9 H Lymph % (Auto) 7.3 L [place] % (Auto) 12.9 H Eos % (Auto) 2.1 Baso % (Auto) 0.8 Neut # (Auto) 6.2 Lymph # (Auto) 0.6 L [place] # (Auto) 1.0 H Eos # (Auto) 0.2 Baso # (Auto) 0.1 WBC Differential . Differential Comment Auto diff final Puncture Site Patient Temperature O2 Saturation ABG pH ABG pCO2 ABG pO2 ABG HCO3 ABG O2 Content ABG Base Excess ABG Methemoglobin Cristofer Test Hemoglobin Carboxyhemoglobin O2 Delivery Device Liter Flow Critical Value Sodium 153 H Potassium 4.4 D Chloride 119 H Carbon Dioxide 26.2 Anion Gap 8 BUN 15 Creatinine 0.80 Estimated GFR Greater than 89 POC Glucose Random Glucose 148 H Calcium 8.4 L Magnesium 1.9 Total Bilirubin 1.2 H AST 65 H ALT 25 Alkaline Phosphatase 148 H Ammonia 48 H Total Protein 7.0 Albumin 2.5 L 01/30/18 10:26 WBC RBC Hgb Hct MCV MCH MCHC RDW Plt Count MPV Neut % (Auto) Lymph % (Auto) [place] % (Auto) Eos % (Auto) Baso % (Auto) Neut # (Auto) Lymph # (Auto) [place] # (Auto) Eos # (Auto) Baso # (Auto) WBC Differential Differential Comment Puncture Site Right radial Patient Temperature 98.6 O2 Saturation 97 ABG pH 7.48 H ABG pCO2 36 L ABG pO2 155 H ABG HCO3 26 ABG O2 Content 14.9 ABG Base Excess 2.9 H ABG Methemoglobin 1.4 Cristofer Test Present Hemoglobin 10.8 L Carboxyhemoglobin 1.1 O2 Delivery Device Sm Liter Flow 10.00 Critical Value No Sodium Potassium Chloride Carbon Dioxide Anion Gap BUN Creatinine Estimated GFR POC Glucose Random Glucose Calcium Magnesium Total Bilirubin AST ALT Alkaline Phosphatase Ammonia Total Protein Albumin - Imaging Impressions Chest X-Ray 01/30/18 11:00 CONCLUSION: Minimal improving atelectasis or consolidation at the left base. <Celia Wing - Last Filed: 01/30/18 15:11> - Labs CBC & Chem 7: 01/31/18 06:13 01/31/18 06:13 Laboratory Results - last 24 hr 01/30/18 01/30/18 01/30/18 10:26 16:42 22:53 WBC RBC Hgb Hct MCV MCH MCHC RDW Plt Count MPV Neut % (Auto) Lymph % (Auto) [place] % (Auto) Eos % (Auto) Baso % (Auto) Neut # (Auto) Lymph # (Auto) [place] # (Auto) Eos # (Auto) Baso # (Auto) WBC Differential Differential Comment Puncture Site Right radial Right radial Patient Temperature 98.6 98.6 O2 Saturation 97 95 ABG pH 7.48 H 7.42 ABG pCO2 36 L 43 H ABG pO2 155 H 97 ABG HCO3 26 28 H ABG O2 Content 14.9 13.5 ABG Base Excess 2.9 H 3.7 H ABG Methemoglobin 1.4 1.3 Cristofer Test Present Present Hemoglobin 10.8 L 10.0 L Carboxyhemoglobin 1.1 1.2 O2 Delivery Device Sm Nasal cannula Liter Flow 10.00 6.00 Critical Value No No Sodium Potassium Chloride Carbon Dioxide Anion Gap BUN Creatinine Estimated GFR POC Glucose 144 H Random Glucose Calcium Magnesium Total Bilirubin AST ALT Alkaline Phosphatase Ammonia Total Protein Albumin 01/31/18 01/31/18 01/31/18 00:19 05:10 06:13 WBC 8.4 RBC 3.67 L Hgb 9.6 L Hct 29.0 L MCV 78.9 L MCH 26.1 L MCHC 33.1 RDW 18.7 H Plt Count 118 L MPV 6.8 L Neut % (Auto) 73.9 H Lymph % (Auto) 8.0 L [place] % (Auto) 14.0 H Eos % (Auto) 3.3 Baso % (Auto) 0.8 Neut # (Auto) 6.2 Lymph # (Auto) 0.7 L [place] # (Auto) 1.2 H Eos # (Auto) 0.3 Baso # (Auto) 0.1 WBC Differential . Differential Comment Auto diff final Puncture Site Patient Temperature O2 Saturation ABG pH ABG pCO2 ABG pO2 ABG HCO3 ABG O2 Content ABG Base Excess ABG Methemoglobin Cristofer Test Hemoglobin Carboxyhemoglobin O2 Delivery Device Liter Flow Critical Value Sodium Potassium Chloride Carbon Dioxide Anion Gap BUN Creatinine Estimated GFR POC Glucose 114 H 112 H Random Glucose Calcium Magnesium Total Bilirubin AST ALT Alkaline Phosphatase Ammonia Total Protein Albumin 01/31/18 01/31/18 06:13 06:13 WBC RBC Hgb Hct MCV MCH MCHC RDW Plt Count MPV Neut % (Auto) Lymph % (Auto) [place] % (Auto) Eos % (Auto) Baso % (Auto) Neut # (Auto) Lymph # (Auto) [place] # (Auto) Eos # (Auto) Baso # (Auto) WBC Differential Differential Comment Puncture Site Patient Temperature O2 Saturation ABG pH ABG pCO2 ABG pO2 ABG HCO3 ABG O2 Content ABG Base Excess ABG Methemoglobin Cristofer Test Hemoglobin Carboxyhemoglobin O2 Delivery Device Liter Flow Critical Value Sodium 155 H Potassium 3.2 L D Chloride 120 H Carbon Dioxide 29.3 Anion Gap 6 BUN 12 Creatinine 0.74 Estimated GFR Greater than 89 POC Glucose Random Glucose 139 H Calcium 8.4 L Magnesium 1.8 Total Bilirubin 1.1 H AST 42 H ALT 25 Alkaline Phosphatase 154 H Ammonia 48 H Total Protein 6.6 Albumin 2.4 L - Imaging Impressions Chest X-Ray 01/30/18 11:00 CONCLUSION: Minimal improving atelectasis or consolidation at the left base. Chest X-Ray 01/31/18 03:21 CONCLUSION: Basilar density, probably atelectasis. Nasogastric tube present. <Richy Montoya - Last Filed: 01/31/18 10:24> Assessment and Plan - Plan Assessment: - Ingestion of foreign body- CT scan reports metallic foreign body in the mid transverse colon without evidence for colitis or perforation at this time. Patient reports that he thinks he swallowed part of his filling, states that he was eating a sandwich and he felt his tooth break off. - Nausea/vomiting with question of hematemesis Patient reports nausea and vomiting persistently for the past 2 days. He does report bright red blood mixed in his emesis, states that he thinks it is from his teeth extraction done 2 days ago. Exam does not reveal any active bleeding in his oral cavity. Patient also reports abdominal pain that has been persistent for the past day and a half, unable to describe the pain. Patient states that pain is worse after taking naltrexone. Despite naltrexone, patient continues to drink alcohol. He states that he had 2 beers yesterday. Pt also reports significant Ibuprofen use until less than a month ago when he was advised by his PCP to stop. Previously seen by our service for upper GIB, did have noted esophageal varices, however no active bleeding and the bleeding was actually noted to be likely secondary to Yanci-Hutton tear. EGD (11/14/17) class a esophagitis noted, scar of previous banding noted. Multiple large ulcers were found in the pylorus, biopsies taken. Normal duodenal mucosa in the duodenal bulb, second part of duodenum and third part of duodenum. 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 There is no ascites although there is diffuse mesenteric edema. This is particularly prominent near the fourth portion of the duodenum. Suspect this is dependent mesenteric edema rather than duodenitis. Pt continues to drink alcohol despite being on Naltrexone 01/17/2018 01/16/2018 EGD revealed the following findings: 1. Esophageal varices - grade 2 sp banding -4 band applied gastritis antrum-biopsy 2. Retroflexed views revealed a hiatal hernia Denies any active bleeding noted. Hemoglobin 11.3 hematocrit 33.7 platelet count 68 01/30/2018 -NG tube placement -GI notified to assist with insertion of NG tube for medications and nutrition -Multiple attempts made-unsuccessful -01/30/2018 hemoglobin 10.1 hematocrit 30.6-stable -01/16/2018 EGD revealed the following findings: 1. Esophageal varices - grade 2 sp banding -4 band applied gastritis antrum-biopsy 2. Retroflexed views revealed a hiatal hernia Plan -N.p.o. -IR consulted for NG tube placement -Continue PPI -Hold Lovenox on 01/31/2018 -Continue antiemetic -Supportive care -Further recommendations to follow This patient has been seen by myself and Dr. Montoya and this note is written on his behalf - Attending Attestation Dr. Montoya <Celia Wing - Last Filed: 01/30/18 15:11> - Attending Attestation Agree with the plan as above. <Richy Montoya - Last Filed: 01/31/18 10:24>
[2018-01-30] MEDS: Enoxaparin Inj 40 MG/0.4 ML Syringe SQ SCH (15:27)
[2018-01-30] MEDS: Haloperidol Inj 5 MG/ML Ampul IV.PUSH PRN (16:54)
[2018-01-30 23:07] LABS: ABG Base Excess 3.7 mmol/L (-2-2); ABG PCO2 43 mmHg (38-42); ABG PO2 97 mmHG (61-120)
[2018-01-31] MEDS: Insulin NovoLOG Aspart Correctional Sugar Inj SQ SCH ×5 (00:37→23:59)
[2018-01-31] MEDS: Oral Hygiene Kit OROPHARYNG SCH ×5 (01:06→23:59)
[2018-01-31] MEDS: Labetalol HCl Inj 100 MG/20 ML Vial IV.PUSH PRN (01:06)
[2018-01-31] MEDS: Benzonatate 100 MG Capsule PO SCH ×3 (04:32→22:17)
--- NOTE | 2018-01-31 04:48 | XR ---
EXAM DATE: 01/31/2018 4:35 AM EST AGE/SEX: 52 years / Male INDICATIONS: NG tube placement. CLINICAL DATA: This is the patient's subsequent encounter. Patient reports that signs and symptoms h ave been present for 1 week and indicates a pain score of Nonresponsive. MEDICAL/SURGICAL HISTORY: . Hypertension. Diabetes, esophageal varices None. [place] [facility] [place]. . FINDINGS: Mild basilar density, probably atelectasis. No effusion or pneumothorax. Nasogastric tube traverses e sophagus. Heart size upper limits normal. CONCLUSION: Basilar density, probably atelectasis. Nasogastric tube present. Electronically signed by: Leopoldo Pagan MD 01/31/2018 4:46 AM EST
[2018-01-31] MEDS: hydrALAZINE HCl Inj 20 MG/ML Vial IV.PUSH PRN ×2 (05:30→10:15)
[2018-01-31] MEDS: Artificial Tears Opth Drops 15 ML Bottle EACH EYE SCH ×3 (05:49→22:17)
[2018-01-31 06:30] LABS: Baso # (Auto) 0.1 th/mm3 (0.0-0.2); Baso % (Auto) 0.8 % (0.0-2.0); Eos # (Auto) 0.3 th/mm3 (0.0-0.4); Eos % (Auto) 3.3 % (0.0-4.0); Hemoglobin 9.6 gm/dL (13.0-17.0); Lymph # (Auto) 0.7 th/mm3 (1.0-4.8); Mean Corpuscular HGB Conc 33.1 % (32.0-36.0); Mean Corpuscular Hemoglobin 26.1 pg (27.0-34.0); Mean Corpuscular Volume 78.9 fL (80.0-100.0); Mean Platelet Volume 6.8 fL (7.0-11.0); Mono # (Auto) 1.2 th/mm3 (0.0-0.9); Neut # (Auto) 6.2 th/mm3 (1.8-7.7); Neut % (Auto) 73.9 % (16.0-70.0); Platelet Count 118 th/mm3 (150-450); Red Blood Count 3.67 mil/mm3 (4.50-5.90); Red Cell Distribution Width 18.7 % (11.6-17.2); White Blood Count 8.4 th/mm3 (4.0-11.0)
[2018-01-31 07:12] LABS: Alanine Aminotransferase 25 U/L (12-78); Albumin 2.4 g/dL (3.4-5.0); Alkaline Phosphatase 154 U/L (45-117); Anion Gap 6 meq/L (5-15); Aspartate Aminotransferase 42 U/L (15-37); Blood Urea Nitrogen 12 mg/dL (7-18); Calcium 8.4 mg/dL (8.5-10.1); Carbon Dioxide 29.3 meq/L (21.0-32.0); Chloride 120 meq/L (98-107); Glomerular Filtration Rate Greater Than 89 mL/min (>89); Glucose,Random 139 mg/dL (74-106); Magnesium 1.8 mg/dL (1.5-2.5); Potassium 3.2 meq/L (3.5-5.1); Sodium 155 meq/L (136-145); Total Protein 6.6 g/dL (6.4-8.2)
[2018-01-31] MEDS: Chlorhexidine 0.12% Oral Kit 15 ML UDC OROPHARYNG SCH ×2 (08:45→22:17)
[2018-01-31] MEDS: Multivit/Folic Acid/Minerals Chewable Tablets CHEW SCH (08:46)
[2018-01-31] MEDS: Sodium Chloride 0.9% 2 ML Flush BID IV.FLUSH SCH ×2 (08:47→22:18)
[2018-01-31] MEDS: amLODIPine 10 MG Tablet PO SCH (08:47)
[2018-01-31] MEDS: Pantoprazole Inj 40 MG Vial IV.PUSH SCH ×2 (08:48→22:17)
[2018-01-31] MEDS: Senna/Docusate Sodium 8.6/50 MG Tablet PO SCH ×2 (08:48→22:18)
[2018-01-31] MEDS: rifAXIMin 550 MG Tablet PO SCH ×2 (08:50→22:17)
[2018-01-31] MEDS: Potassium Chlor 20 mEq Premix 20 MEQ/100 ML PIGGYBACK IV.SIG PRN ×4 (08:52→15:00)
[2018-01-31] MEDS: Propranolol 40 MG Tablet PO SCH ×2 (08:54→22:17)
--- NOTE | 2018-01-31 09:11 | P.PNFP ---
Subjective Interval history: No acute events overnight. Patient continuing to require Ativan for agitation. NG tube placed and x-ray confirmed placement. CIWA overnight was 13 four different times. <Irma Zhang C - 01/31/18 09:11> Results - Labs Result diagrams: 02/01/18 04:00 02/01/18 04:00 <Kusum Weiss R - 02/01/18 13:47> Abnormal lab results 01/31/18 01/31/18 02/01/18 Range/Units 17:15 23:37 04:00 WBC 12.8 H D (4.0-11.0) th/mm3 RBC 3.66 L (4.50-5.90) mil/mm3 Hgb 9.3 L (13.0-17.0) gm/dL Hct 29.2 L (39.0-51.0) % MCV 79.8 L (80.0-100.0) fL MCH 25.4 L (27.0-34.0) pg MCHC 31.8 L (32.0-36.0) % RDW 18.6 H (11.6-17.2) % Plt Count 120 L (150-450) th/mm3 MPV 6.7 L (7.0-11.0) fL Neut % (Auto) 74.4 H (16.0-70.0) % Lymph % (Auto) 6.6 L (9.0-44.0) % [place] % (Auto) 15.1 H (0.0-8.0) % Neut # (Auto) 9.5 H (1.8-7.7) th/mm3 Lymph # (Auto) 0.8 L (1.0-4.8) th/mm3 [place] # (Auto) 1.9 H (0.0-0.9) th/mm3 Sodium (136-145) meq/L Chloride (98-107) meq/L POC Glucose 131 H 120 H (68-110) mg/dl Random Glucose (74-106) mg/dL Calcium (8.5-10.1) mg/dL Total Bilirubin (0.2-1.0) mg/dL AST (15-37) U/L Alkaline Phosphatase (45-117) U/L Ammonia (11-32) mcmol/L Albumin (3.4-5.0) g/dL 02/01/18 02/01/18 Range/Units 04:00 04:00 WBC (4.0-11.0) th/mm3 RBC (4.50-5.90) mil/mm3 Hgb (13.0-17.0) gm/dL Hct (39.0-51.0) % MCV (80.0-100.0) fL MCH (27.0-34.0) pg MCHC (32.0-36.0) % RDW (11.6-17.2) % Plt Count (150-450) th/mm3 MPV (7.0-11.0) fL Neut % (Auto) (16.0-70.0) % Lymph % (Auto) (9.0-44.0) % [place] % (Auto) (0.0-8.0) % Neut # (Auto) (1.8-7.7) th/mm3 Lymph # (Auto) (1.0-4.8) th/mm3 [place] # (Auto) (0.0-0.9) th/mm3 Sodium 149 H (136-145) meq/L Chloride 116 H (98-107) meq/L POC Glucose (68-110) mg/dl Random Glucose 129 H (74-106) mg/dL Calcium 8.2 L (8.5-10.1) mg/dL Total Bilirubin 1.1 H (0.2-1.0) mg/dL AST 48 H (15-37) U/L Alkaline Phosphatase 198 H (45-117) U/L Ammonia 48 H (11-32) mcmol/L Albumin 2.5 L (3.4-5.0) g/dL Short CBC 02/01/18 Range/Units 04:00 WBC 12.8 H D (4.0-11.0) th/mm3 Hgb 9.3 L (13.0-17.0) gm/dL Hct 29.2 L (39.0-51.0) % Plt Count 120 L (150-450) th/mm3 BMP 01/31/18 02/01/18 20:57 04:00 Sodium 149 H Potassium 3.6 3.5 Chloride 116 H Carbon Dioxide 27.4 BUN 9 Creatinine 0.70 Calcium 8.2 L Liver Function 02/01/18 Range/Units 04:00 Total Bilirubin 1.1 H (0.2-1.0) mg/dL AST 48 H (15-37) U/L ALT 26 (12-78) U/L Alkaline Phosphatase 198 H (45-117) U/L Albumin 2.5 L (3.4-5.0) g/dL <Kusum Weiss R - 02/01/18 13:47> Abnormal lab results 01/30/18 01/30/18 01/30/18 Range/Units 10:26 16:42 22:53 RBC (4.50-5.90) mil/mm3 Hgb (13.0-17.0) gm/dL Hct (39.0-51.0) % MCV (80.0-100.0) fL MCH (27.0-34.0) pg RDW (11.6-17.2) % Plt Count (150-450) th/mm3 MPV (7.0-11.0) fL Neut % (Auto) (16.0-70.0) % Lymph % (Auto) (9.0-44.0) % [place] % (Auto) (0.0-8.0) % Lymph # (Auto) (1.0-4.8) th/mm3 [place] # (Auto) (0.0-0.9) th/mm3 ABG pH 7.48 H (7.380-7.420) ABG pCO2 36 L 43 H (38-42) mmHg ABG pO2 155 H (61-120) mmHG ABG HCO3 28 H (22-26) mmol/L ABG Base Excess 2.9 H 3.7 H (-2-2) mmol/L Hemoglobin 10.8 L 10.0 L (12.0-16.0) G/DL Sodium (136-145) meq/L Potassium (3.5-5.1) meq/L Chloride (98-107) meq/L POC Glucose 144 H (68-110) mg/dl Random Glucose (74-106) mg/dL Calcium (8.5-10.1) mg/dL Total Bilirubin (0.2-1.0) mg/dL AST (15-37) U/L Alkaline Phosphatase (45-117) U/L Ammonia (11-32) mcmol/L Albumin (3.4-5.0) g/dL 01/31/18 01/31/18 01/31/18 Range/Units 00:19 05:10 06:13 RBC 3.67 L (4.50-5.90) mil/mm3 Hgb 9.6 L (13.0-17.0) gm/dL Hct 29.0 L (39.0-51.0) % MCV 78.9 L (80.0-100.0) fL MCH 26.1 L (27.0-34.0) pg RDW 18.7 H (11.6-17.2) % Plt Count 118 L (150-450) th/mm3 MPV 6.8 L (7.0-11.0) fL Neut % (Auto) 73.9 H (16.0-70.0) % Lymph % (Auto) 8.0 L (9.0-44.0) % [place] % (Auto) 14.0 H (0.0-8.0) % Lymph # (Auto) 0.7 L (1.0-4.8) th/mm3 [place] # (Auto) 1.2 H (0.0-0.9) th/mm3 ABG pH (7.380-7.420) ABG pCO2 (38-42) mmHg ABG pO2 (61-120) mmHG ABG HCO3 (22-26) mmol/L ABG Base Excess (-2-2) mmol/L Hemoglobin (12.0-16.0) G/DL Sodium (136-145) meq/L Potassium (3.5-5.1) meq/L Chloride (98-107) meq/L POC Glucose 114 H 112 H (68-110) mg/dl Random Glucose (74-106) mg/dL Calcium (8.5-10.1) mg/dL Total Bilirubin (0.2-1.0) mg/dL AST (15-37) U/L Alkaline Phosphatase (45-117) U/L Ammonia (11-32) mcmol/L Albumin (3.4-5.0) g/dL 01/31/18 01/31/18 Range/Units 06:13 06:13 RBC (4.50-5.90) mil/mm3 Hgb (13.0-17.0) gm/dL Hct (39.0-51.0) % MCV (80.0-100.0) fL MCH (27.0-34.0) pg RDW (11.6-17.2) % Plt Count (150-450) th/mm3 MPV (7.0-11.0) fL Neut % (Auto) (16.0-70.0) % Lymph % (Auto) (9.0-44.0) % [place] % (Auto) (0.0-8.0) % Lymph # (Auto) (1.0-4.8) th/mm3 [place] # (Auto) (0.0-0.9) th/mm3 ABG pH (7.380-7.420) ABG pCO2 (38-42) mmHg ABG pO2 (61-120) mmHG ABG HCO3 (22-26) mmol/L ABG Base Excess (-2-2) mmol/L Hemoglobin (12.0-16.0) G/DL Sodium 155 H (136-145) meq/L Potassium 3.2 L D (3.5-5.1) meq/L Chloride 120 H (98-107) meq/L POC Glucose (68-110) mg/dl Random Glucose 139 H (74-106) mg/dL Calcium 8.4 L (8.5-10.1) mg/dL Total Bilirubin 1.1 H (0.2-1.0) mg/dL AST 42 H (15-37) U/L Alkaline Phosphatase 154 H (45-117) U/L Ammonia 48 H (11-32) mcmol/L Albumin 2.4 L (3.4-5.0) g/dL Short CBC 01/31/18 Range/Units 06:13 WBC 8.4 (4.0-11.0) th/mm3 Hgb 9.6 L (13.0-17.0) gm/dL Hct 29.0 L (39.0-51.0) % Plt Count 118 L (150-450) th/mm3 BMP 01/31/18 06:13 Sodium 155 H Potassium 3.2 L D Chloride 120 H Carbon Dioxide 29.3 BUN 12 Creatinine 0.74 Calcium 8.4 L Liver Function 01/31/18 Range/Units 06:13 Total Bilirubin 1.1 H (0.2-1.0) mg/dL AST 42 H (15-37) U/L ALT 25 (12-78) U/L Alkaline Phosphatase 154 H (45-117) U/L Albumin 2.4 L (3.4-5.0) g/dL <Irma Zhang - 01/31/18 09:11> - Imaging Impressions Chest X-Ray 02/01/18 10:19 CONCLUSION: NG tube tip directed into the distal stomach. <Kusum Weiss R - 02/01/18 13:47> Impressions Chest X-Ray 01/30/18 11:00 CONCLUSION: Minimal improving atelectasis or consolidation at the left base. Chest X-Ray 01/31/18 03:21 CONCLUSION: Basilar density, probably atelectasis. Nasogastric tube present. <Irma Zhang - 01/31/18 09:11> Physical Exam Vital signs: Vital Signs 01/31/18 14:00 01/31/18 14:31 01/31/18 15:00 Temperature Pulse Rate 101 H 98 H 97 H Respiratory Rate 17 18 20 Blood Pressure 148/72 H 153/72 H 143/76 H Pulse Oximetry 95 94 L 94 L 01/31/18 15:30 01/31/18 16:00 01/31/18 16:01 Temperature 98.2 F Pulse Rate 97 H 94 H 93 H Respiratory Rate 25 H 21 25 H Blood Pressure 168/72 H 154/74 H Pulse Oximetry 94 L 95 96 01/31/18 16:30 01/31/18 17:00 01/31/18 17:30 Temperature Pulse Rate 95 H 94 H 94 H Respiratory Rate 24 20 24 Blood Pressure 147/79 H 135/75 131/78 Pulse Oximetry 98 97 96 01/31/18 18:00 01/31/18 18:30 01/31/18 19:00 Temperature Pulse Rate 95 H 98 H 99 H Respiratory Rate 22 21 56 H Blood Pressure 137/83 148/84 H Pulse Oximetry 95 97 96 01/31/18 19:01 01/31/18 19:31 01/31/18 20:00 Temperature 97.9 F Pulse Rate 98 H 100 H 99 H Respiratory Rate 50 H 26 H 36 H Blood Pressure 176/93 H 150/78 H Pulse Oximetry 94 L 96 92 L 01/31/18 20:07 01/31/18 20:30 01/31/18 21:00 Temperature Pulse Rate 101 H 109 H 102 H Respiratory Rate 34 H 27 H 26 H Blood Pressure 140/86 140/85 Pulse Oximetry 96 95 92 L 01/31/18 21:01 01/31/18 21:31 01/31/18 22:00 Temperature Pulse Rate 103 H 102 H 103 H Respiratory Rate 37 H 53 H 50 H Blood Pressure 157/91 H 175/85 H 158/89 H Pulse Oximetry 73 L 90 L 92 L 01/31/18 22:23 01/31/18 22:30 01/31/18 23:00 Temperature Pulse Rate 101 H 96 H Respiratory Rate 23 26 H Blood Pressure 158/87 H 158/89 H Pulse Oximetry 98 95 94 L 01/31/18 23:30 02/01/18 00:00 02/01/18 00:30 Temperature 99.1 F Pulse Rate 95 H 96 H 93 H Respiratory Rate 24 37 H 28 H Blood Pressure 159/81 H 160/94 H 160/79 H Pulse Oximetry 90 L 95 93 L 02/01/18 01:00 02/01/18 01:30 02/01/18 02:00 Temperature Pulse Rate 90 92 H 89 Respiratory Rate 27 H 44 H 32 H Blood Pressure 146/76 H 148/83 H 136/81 Pulse Oximetry 97 96 98 02/01/18 02:30 02/01/18 03:00 02/01/18 03:31 Temperature Pulse Rate 89 87 92 H Respiratory Rate 28 H 28 H 34 H Blood Pressure 145/87 H 143/85 H 174/83 H Pulse Oximetry 97 97 84 L 02/01/18 04:00 02/01/18 04:01 02/01/18 08:00 Temperature 98.6 F Pulse Rate 93 H 91 H Respiratory Rate 55 H 51 H Blood Pressure 166/83 H Pulse Oximetry 96 95 97 Intake & Output 01/31/18 02/01/18 02/01/18 18:59 06:59 18:59 Intake Total 1951 / 1951 1821 / 1821 Output Total 1625 / 1625 550 / 550 Balance 327 / 327 1271 / 1271 Weight 99.5 kg Intake: IV 1560 / 1560 1515 / 1515 D5W Inj 1,000 ML @ 84 mls/hr IV 700 / 700 1000 / 1000 .CONT .[id number] MANUEL Rx#:[id number] KCl 20 mEq Premix Inj 20 meq In 360 / 360 100 ml @ 50 mls/hr IV.SIG Q2H PRN Rx#:[id number] Vancomycin Inj 1,500 MG In NS 500 / 500 515 / 515 Inj 500 ML @ 250 mls/hr IV.SIG Q12H MANUEL Rx#:[id number] Tube Feeding 306 / 306 Tube Irrigant 120 / 120 Water Bolus Amount 250 / 250 Output: Urine 1625 / 1625 550 / 550 Other: Date of Last Bowel Movement 01/31/18 01/31/18 # Incontinent Bowel Movements 2 5 <Kusum Weiss R - 02/01/18 13:47> Vital Signs 01/30/18 12:00 01/30/18 16:00 01/30/18 20:00 Temperature 98.9 F 99.7 F H 98.9 F Pulse Rate 114 H 104 H 104 H Respiratory Rate 26 H 26 H 27 H Blood Pressure 172/87 H 170/93 H 139/81 Pulse Oximetry 98 99 92 L 01/30/18 20:15 01/31/18 00:00 01/31/18 04:00 Temperature 99 F 98.7 F Pulse Rate 91 H 97 H Respiratory Rate 27 H 30 H Blood Pressure 172/82 H 154/94 H Pulse Oximetry 97 97 98 01/31/18 07:47 Temperature Pulse Rate Respiratory Rate Blood Pressure Pulse Oximetry 94 L Intake & Output 01/30/18 01/31/18 01/31/18 18:59 06:59 18:59 Intake Total 1465 / 1465 1615 / 1615 Output Total 300 / 300 Balance 1465 / 1465 1315 / 1315 Weight 102 kg Intake: IV 1465 / 1465 1515 / 1515 D5W Inj 1,000 ML @ 84 mls/hr IV 1000 / 1000 .CONT .[id number] MANUEL Rx#:[id number] D5W/1/2 NS Inj 1,000 ML @ 84 950 / 950 mls/hr IV.CONT .[id number] MANUEL Rx# :[id number] Vancomycin Inj 1,500 MG In NS 515 / 515 515 / 515 Inj 500 ML @ 250 mls/hr IV.SIG Q12H MANUEL Rx#:[id number] Water Bolus Amount 100 / 100 Output: Urine 300 / 300 Other: # Voids 3 # Incontinent Voids 2 Date of Last Bowel Movement 01/28/18 01/28/18 # Bowel Movements 0 0 <Irma Zhang 01/31/18 09:11> Narrative: GENERAL: 52-year-old male currently extubated, drowsy asleep, NG tube in place SKIN: Warm and dry. No petechia or rash HEAD: Atraumatic. Normocephalic. Patient with dried blood across the face likely due to healing abrasions that developed when he was intubated ENT: No nasal bleeding or discharge. NECK: Trachea midline. No JVD. CARDIOVASCULAR: Regular rate and rhythm. S1, S2 no S4. No murmur RESPIRATORY: B/l equal air entry. Coarse breath sound appreciated anteriorly. GASTROINTESTINAL: Abdomen soft, non-tender, slightly distended. MUSCULOSKELETAL: Extremities without clubbing, cyanosis, or edema. No obvious deformities. +2 PD pulses BL NEUROLOGICAL: limited, no focal neurological deficits noted on exam, <Irma Zhang 01/31/18 09:11> - Urinary Catheter Management 400 Cath placed during this visit: no <Kusum Weiss - 02/01/18 13:47> no <Irma Zhang 01/31/18 09:11> Straight Cath placed during this visit: no <Kusum Weiss R - 02/01/18 13:47> yes, but has since been removed by the nurse <Irma Zhang 01/31/18 09:11> Reason for continuing: Not indwelling catheter <Irma Zhang 01/31/18 09: 11> Insertion date: 01/26/18 <Irma Zhang 01/31/18 09:11> Insertion time: 17:30 <Irma Zhang 01/31/18 09:11> Removal date: 01/26/18 <Irma Zhang 01/31/18 09:11> Removal time: 17:35 <Irma Zhang 01/31/18 09:11> Assessment and Plan - Assessment (1) Alcohol withdrawal Code(s): F10.239 - Alcohol dependence with withdrawal, unspecified Status: Acute (2) Abdominal pain Code(s): R10.9 - Unspecified abdominal pain Status: Acute (3) Esophageal varices in cirrhosis Code(s): K74.60 - Unspecified cirrhosis of liver; I85.10 - Secondary esophageal varices without bleeding Status: Chronic (4) Hypertension Code(s): I10 - Essential (primary) hypertension Status: Chronic (5) Alcohol abuse Code(s): F10.10 - Alcohol abuse, uncomplicated Status: Chronic (6) Depression with anxiety Code(s): F41.8 - Other specified anxiety disorders Status: Chronic (7) Cough Code(s): R05 - Cough Status: Acute (8) Diabetes Code(s): E11.9 - Type 2 diabetes mellitus without complications Status: Chronic (9) Deep vein thrombosis (DVT) of brachial vein Code(s): I82.629 - Acute embolism and thrombosis of deep veins of unspecified upper extremity Status: Acute (10) Nutrition, metabolism, and development symptoms Code(s): R63.8 - Other symptoms and signs concerning food and fluid intake Status: Acute <Kusum Weiss - 02/01/18 13:47> (1) Alcohol withdrawal Code(s): F10.239 - Alcohol dependence with withdrawal, unspecified Status: Acute Plan: Patient with extensive alcohol abuse history for the past 30 years complicated by cirrhosis and esophageal variceal GI bleed. Currently receiving treatment for alcoholism at [facility] since July of this year. Reports he is taking a medication to help with his alcoholism however he has not been compliant and has been drinking at least 2 beers per day. Presented to the ED with severe abdominal pain, vomiting and nausea. Patient had worsening alcohol withdrawal symptoms and was transferred to critical care on 01/18. Tower Attendant consulted, appreciate recommendations Patient placed on Precedex drip on 01/18; d/c on 01/27 Patient placed n.p.o., failed bedside swallow eval, will be re-evaluated by speech therapy today. NG tube placed 01/31 with confirmation x-ray Continue to monitor vital signs, continue to monitor ammonia and cmp Patient intubated on 01/19; CT brain: No acute abnormalities Continue vitamin bag daily times 3 days Valproate 500 p.o. daily CIWA protocol restarted since patient was extubated yesterday 01/27. Recent CIWA score this am of 16 requiring 2 mg of Ativan. Ammonia level elevated at 70-> 81->98->72->59->56-> 82->69->45->46->48; today at 48 Lactulose 4 times daily Rifaximin 550 BID (2) Abdominal pain Code(s): R10.9 - Unspecified abdominal pain Status: Acute Plan: Patient is a 52-year-old male with past medical history of alcoholism, cirrhosis and esophageal variceal GI bleed who presented to the ED with complaint of umbilical abdominal pain, nausea, and vomiting for the past 2 days. Patient reports tooth extraction 2 days prior to admission and malaise ( abdominal pain, vomiting x10 times with questionable blood in vomit which he attributes to tooth extraction however due to patient's history of upper GI bleed due to esophageal varices GI was consulted for further evaluation). On admission patient was slightly hypertensive however he was afebrile and no leukocytosis appreciated on CBC. CT abdomen: Showing edema of mesenteric, small metallic object in the transverse colon (which may have been part of patient's dental filling) and cirrhosis with portal hypertension and significant esophageal varices. Zofran for nausea Pain controlled with hydromorphone PRN which patient has had in the past without any adverse reactions; on hold Protonix IV twice daily Cipro for prophylaxis; discontinued 01/22 octreotide drip 25 mcg/h, discontinued GI consulted for further recommendations, -Protonix, prophylactic antibiotic and octreotide drip -H&H stable and abdominal ultrasound negative for ascites -EGD procedure 01/16 showed: Esophageal varices grade 2 status post 4 band applied, biopsies taken from gastric antrum. Repeat EGD in 2 months. -vocal cord mass noted on intubation and ENT was consulted for further evaluation. -non-selective beta deena and follow up outpatient in two weeks. - GI has signed off ENT consulted Normal evaluation of vocal cords with laryngoscope neck CT no abnormal findings, no evidence of laryngeal lesion -will assess as needed (3) Esophageal varices in cirrhosis Code(s): K74.60 - Unspecified cirrhosis of liver; I85.10 - Secondary esophageal varices without bleeding Status: Chronic Plan: See plan above for abdominal pain (4) Hypertension Code(s): I10 - Essential (primary) hypertension Status: Chronic Plan: Resume home medications Clonidine and labetalol 20mg PRN Continue to monitor blood pressure. (5) Alcohol abuse Code(s): F10.10 - Alcohol abuse, uncomplicated Status: Chronic Plan: See alcohol withdrawal plan above (6) Depression with anxiety Code(s): F41.8 - Other specified anxiety disorders Status: Chronic Plan: Resume home medications (7) Cough Code(s): R05 - Cough Status: Acute Plan: Patient with history of chronic cough and wheezing. -GI saw abnormal vocal cords for EGD so consulted Pulmonology and ENT -Pulmonology: recommended aerosol treatment and tessalon 200 mg TID and smoking cessation. Recommended follow up pulmonary function studies once acute illness treated. -ENT: CT neck was negative. No mass visualized with laryngoscopy. Can follow up OP for post nasal drip -Sputum culture: MRSA -vancomycin and zosyn discontinued -Restarted on vancomycin on 01/28 -BCX NG to-date -Chest x-ray: Support equipment in good position. Small areas of atelectasis in both lung bases. (8) Diabetes Code(s): E11.9 - Type 2 diabetes mellitus without complications Status: Chronic Plan: Sliding scale insulin low Accu-Cheks Hypoglycemia protocol (9) Deep vein thrombosis (DVT) of brachial vein Code(s): I82.629 - Acute embolism and thrombosis of deep veins of unspecified upper extremity Status: Acute Plan: 1111 venous Doppler study: DVT of right mid brachial vein Anticoagulation therapy complicated given possible GI bleed -will follow critical care recommendations of Lovenox 40 (10) Nutrition, metabolism, and development symptoms Code(s): R63.8 - Other symptoms and signs concerning food and fluid intake Status: Acute Plan: Electrolytes: Replete as needed Diet: NPO, f/u speech swallow eval; NG tube in place DVT prophylaxis: lovenox 40 held <Irma Zhang - 01/31/18 09:05> - Attending Attestation This patient was seen and examined. The assessment and plan was discussed with the resident physician and I am in agreement with continued medical care as documented in this encounter. KUSUM WEISS MD <Kusum Weiss - 02/01/18 13:47>
[2018-01-31] MEDS: Vancomycin Inj 1,500 MG in Sodium Chlor 0.9% Inj 500 ML IV.SIG SCH ×2 (12:20→22:28)
[2018-01-31] MEDS: Dextrose 5% in Water Inj 1,000 ML IV.CONT SCH ×2 (12:23→22:18)
[2018-01-31] MEDS ORDERED: Haloperidol Inj 5 MG/ML Ampul IV.PUSH PRN (12:59)
--- NOTE | 2018-01-31 13:00 | P.PNCC ---
Subjective Subjective Remarks/Hospital Course: The patient is a 52-year-old male with a past medical history of ETOH abuse, cirrhosis of liver secondary to alcohol, hypertension, diabetes mellitus, anxiety, depression, prior history of upper gastrointestinal bleed x2 due to esophageal varices. The patient was admitted under the family medicine team on 01/15/[address] for abdominal pain. A CT scan of the abdomen and pelvis showed a cirrhotic liver with evidence of portal hypertension and prominent gastroesophageal varices. No ascites noted. The patient also underwent an ultrasound of the abdomen, which showed no significant ascites. He was seen by GI service and underwent upper endoscopy on 01/16/2018 which showed grade 2 esophageal varices, status post banding x4, gastritis and hiatal hernia. The patient also had a CT scan of the chest on 01/16/2018 which showed mild infiltrates in the posterior lower lung hussein suggestive of atelectasis and nonspecific 1.5 cm lymph node in the anterior superior mediastinum. He is being followed by Dr. Maki from pulmonary service. Due to altered mental status and possible alcohol remains quite encephalopathic and agitated. withdrawal he was transferred to ICU and critical care medicine was consulted for critical care management. He received Ativan 6-8 mg total along with Haldol and the patient remained restless and agitated. Most of the history was obtained from reviewing medical records as the patient is a poor historian. ABG was performed this morning on room air, which showed a pH of 7.44, CO2 41, PaO2 69, bicarbonate 27, saturation 91%. 01/19: Patient with worsening oxygenation status. Essentially unresponsive obtunded. Ammonia level is 98 this morning. Elective intubation. 01/20 Patient is intubated and sedated, afebrile. 01/21 Patient remains sedated with Fentnayl, Diprivan and Versed. T;100.5, CT brain yesterday no acute findings. 01/22: Remains intubated sedated Versed had been held since a.m. Remains unresponsive failed CPAP trial today due to tachypnea. Spontaneously moves lower extremities no spontaneous eye opening. Large amount of ET tube secretions reported. Sputum cx 01/19 MRSA 01/23: Remains sedated and intubated, some mild dyssynchrony with the vent during my exam. 01/24: Patient gets very agitated during sedation vacations, still requiring propofol/ versed/ fentanyl gtts. Temp is 99F, still diaphoretic on exam. 01/25: BUN/ creat trending up but urine output remains adequate. Patient's home med list includes bumex, will start diuresis today to see if this improves renal function. Of note, his home list also includes Fosrenal and mesalamine but it is unclear from previous records if patient has a h/o CKD or inflammatory bowel disease. 01/26: Creat plateaued and urine output much improved with dose of lasix yesterday, will restart home bumex dose. Propofol d/cd yesterday, versed currently on hold, precedex and fentanyl both at low doses. Copious thick secretions from ETT which are difficult to suction with in-line, will perform bedside bronch for pulmonary toilet. No contact info available for next of kin to obtain consent but patient will need this in preparation for extubation. 01/27: Patient had bronchoscopy performed yesterday, secretions are thinner and easier to suction as per RT. Balloon on ETT is sheared but patient is still receiving full tidal volumes. He is tolerating pressure support 10/5 at 40% this morning, would like to try to extubate today. 01/28: Patient extubated yesterday, still fairly encephalopathic and agitated. 01/29: Remains encephalopathic, failed swallow eval 2 days in a row, NGT attempted yesterday but patient coughed until it dislodged. Ativan requirements somewhat less today than yesterday. 01/30: Remains quite encephalopathic, very somnolent. Receiving Ativan per CIWA protocol. Remains in active alcohol withdrawal. Continues to fail swallow eval, and pulled out NG tube. Systolic blood pressure is high in 190s increase as needed labetalol to 20 mg IV every 2 hours as needed 01/31: Remains slightly more awake today opens eyes very weakly following commands. Received approximately 5 mg of Ativan overnight per CIWA protocol. I will discontinue the CIWA protocol and placed on 0.5 mg IV Ativan every 4 hours as needed to avoid oversedation. Sodium remains high at 155 free water replacement started, in addition to D5W being increased to 150 mL/h. Start tube feeds also Objective Vital Signs / I&O: Vital Signs 01/30/18 16:00 01/30/18 20:00 01/30/18 20:15 Temperature 99.7 F H 98.9 F Pulse Rate 104 H 104 H Respiratory Rate 26 H 27 H Blood Pressure 170/93 H 139/81 Pulse Oximetry 99 92 L 97 01/31/18 00:00 01/31/18 01:01 01/31/18 01:31 Temperature 99 F Pulse Rate 91 H 93 H 94 H Respiratory Rate 27 H 28 H 25 H Blood Pressure 172/82 H 149/85 H Pulse Oximetry 97 99 94 L 01/31/18 02:00 01/31/18 02:01 01/31/18 02:31 Temperature Pulse Rate 97 H 94 H 95 H Respiratory Rate 25 H 25 H 25 H Blood Pressure 163/84 H 177/89 H Pulse Oximetry 96 95 92 L 01/31/18 03:00 01/31/18 03:01 01/31/18 03:30 Temperature Pulse Rate 100 H 100 H 96 H Respiratory Rate 25 H 25 H 25 H Blood Pressure 164/81 H 158/89 H Pulse Oximetry 94 L 94 L 96 01/31/18 04:00 01/31/18 04:31 01/31/18 05:00 Temperature 98.7 F Pulse Rate 97 H 95 H 93 H Respiratory Rate 25 H 25 H 25 H Blood Pressure 154/94 H 144/90 H Pulse Oximetry 98 100 100 01/31/18 05:09 01/31/18 05:30 01/31/18 06:00 Temperature Pulse Rate 98 H 90 91 H Respiratory Rate 25 H 25 H 25 H Blood Pressure 172/99 H 178/93 H 186/85 H Pulse Oximetry 96 100 97 01/31/18 06:31 01/31/18 07:00 01/31/18 07:01 Temperature Pulse Rate 92 H 92 H 93 H Respiratory Rate 25 H 25 H 25 H Blood Pressure 158/80 H 169/89 H Pulse Oximetry 96 92 L 94 L 01/31/18 07:30 01/31/18 07:47 01/31/18 08:00 Temperature 98.8 F Pulse Rate 89 97 H Respiratory Rate 25 H 25 H Blood Pressure 172/99 H 161/87 H Pulse Oximetry 93 L 94 L 93 L 01/31/18 08:30 01/31/18 09:00 01/31/18 09:30 Temperature Pulse Rate 93 H 97 H 94 H Respiratory Rate 25 H 25 H 25 H Blood Pressure 154/92 H 164/95 H 159/94 H Pulse Oximetry 97 93 L 96 01/31/18 10:00 01/31/18 10:01 01/31/18 10:10 Temperature Pulse Rate 85 86 84 Respiratory Rate 25 H 25 H 25 H Blood Pressure 174/100 H 171/102 H Pulse Oximetry 88 L 87 L 92 L 01/31/18 10:20 01/31/18 10:30 01/31/18 11:00 Temperature Pulse Rate 84 88 92 H Respiratory Rate 25 H 25 H 25 H Blood Pressure 176/95 H 156/89 H 151/76 H Pulse Oximetry 96 96 93 L Intake & Output 01/30/18 01/31/18 01/31/18 18:59 06:59 18:59 Intake Total 1465 / 1465 1615 / 1615 795 / 795 Output Total 300 / 300 Balance 1465 / 1465 1315 / 1315 795 / 795 Weight 102 kg Intake: IV 1465 / 1465 1515 / 1515 795 / 795 D5W Inj 1,000 ML @ 84 mls/hr IV 1000 / 1000 700 / 700 .CONT .[id number] [facility] Rx#:[id number] D5W/1/2 NS Inj 1,000 ML @ 84 950 / 950 mls/hr IV.CONT .[id number] [facility] Rx# :[id number] KCl 20 mEq Premix Inj 20 meq In 95 / 95 100 ml @ 50 mls/hr IV.SIG Q2H [facility] Rx#:[id number] Vancomycin Inj 1,500 MG In NS 515 / 515 515 / 515 Inj 500 ML @ 250 mls/hr IV.SIG Q12H [facility] Rx#:[id number] Water Bolus Amount 100 / 100 Output: Urine 300 / 300 Other: # Voids 3 # Incontinent Voids 2 Date of Last Bowel Movement 01/28/18 01/28/18 01/28/18 # Bowel Movements 0 0 Result Diagrams: 01/31/18 06:13 01/31/18 06:13 Objective Remarks: GENERAL: Somnolent encephalopathic but slightly more awake eyes open spontaneously SKIN: Warm, dry HEENT: NCAT. Eczema to lower face. NG tube in place NECK: Trachea midline. CARDIOVASCULAR: Tachycardic rate and rhythm. No murmur. Intermittently hypertensive RESPIRATORY: Coarse breath sounds bilaterally, strong cough GASTROINTESTINAL: Abdomen soft, non-tender, non-distended. MUSCULOSKELETAL: Trace extremity edema. NEUROLOGICAL: Somnolent but spontaneously opens eyes today. Very weakly follows commands in the upper extremities. Generalized weakness present Assessment and Plan - Assessment and Plan Plan: ASSESSMENT Altered mental status/toxic metabolic encephalopathy secondary to elevated ammonia and delirium tremens. Acute respiratory failure, MRSA in sputum Hypernatremia Cirrhosis of the liver secondary to ETOH abuse, Hepatic encephalopathy Microcytosis and thrombocytopenia, likely secondary to end-stage liver disease. Hypertension, poorly controlled Diabetes mellitus hemoglobin A1c 6.0. Ongoing abuse/EtOH History of cannabinoids use Hypoalbuminemia Esophageal varices status post banding by GI Elevated BMI PLAN Neuro/Psych: Continue PO lactulose and rifaximin via NGT, trend ammonia DC CIWA protocol. Use IV Ativan and IV Haldol as per as needed orders Start scheduled clonidine 0.2 mg p.o. every 8 hours CV: Monitor HR and BP keep MAP>65mmHg Hold lisinopril due to elevated creat (see below) Start scheduled clonidine 0.2 mg p.o. every 8 hours Continue Inderal 40 mg BID Amlodipine to 10 mg daily Continue pravastatin 40 mg daily for hyperlipidemia Increased IV labetalol to 20 mg every 2 hours as needed for SBP more than 170 Resp: Albuterol/ipratropium aerosols every 4 hours with albuterol aerosols every 2 hours as needed dyspnea. Aggressive chest PT Protecting airway at this time GI: Status post EGD on 01/16/2018 which showed grade 2 esophageal varices, status post banding x4. Abdominal ultrasound on 01/15/2018 showed no evidence of significant ascites. Pantoprazole 40 m IV twice daily for GI prophylaxis On lactulose 30 cc QID and Xifaxan 550 mg twice daily. Ammonia level 48 today Failing speech eval, NGT placed-start diet with Glucerna : Monitor renal function, creat and urine output much improved, continue home dose of bumex Hypernatremia-currently on D5W, increase to 150 mL/h. Free water replacement through NG tube Electrolyte replacement per protocol Endo: Sliding scale insulin with Accu-Cheks every 6 hours to maintain euglycemia Hemoglobin A1c was 6.0 Heme: Monitor CBC ID: s/p 7 day treatment for MRSA pneumonia, observe off antibiotics Access -Utilize peripheral IV. Prophylaxis - GI-pantoprazole - DVT SCD/ lovenox - 01/19 Doppler US RUE: Positive for nonocclusive deep venous thrombosis in the right mid brachial vein, follow up scan on 01/27 showed no DVT, no concerning signs or symptoms of PE Level 2 follow up To help prompt me to consider important information that might be impacting today's encounter and assessment, information from prior notes written by myself or my colleagues may have been "brought forward" into today's note. My signature on this note, however, is an attestation that I personally performed the exam, history, and/or decision-making noted today, and, unless otherwise indicated, the interactions with patient, family, and staff as well as the review of records all occurred today. I also attest that the listed assessment and stated plan reflect my best clinical judgment today based on the combination of historical information, prior notes, and today's exam/ interactions.
--- NOTE | 2018-01-31 15:31 | P.PNPL ---
Subjective Interval history: 52 YO male with GIB, cirrhosis Developed resp distress, agitation Extubated 01/27 Opens eyes, follows simple commands On NC Little more responsive today Physical Exam Vital signs: Vital Signs 01/30/18 16:00 01/30/18 20:00 01/30/18 20:15 Temperature 99.7 F H 98.9 F Pulse Rate 104 H 104 H Respiratory Rate 26 H 27 H Blood Pressure 170/93 H 139/81 Pulse Oximetry 99 92 L 97 01/31/18 00:00 01/31/18 01:01 01/31/18 01:31 Temperature 99 F Pulse Rate 91 H 93 H 94 H Respiratory Rate 27 H 28 H 25 H Blood Pressure 172/82 H 149/85 H Pulse Oximetry 97 99 94 L 01/31/18 02:00 01/31/18 02:01 01/31/18 02:31 Temperature Pulse Rate 97 H 94 H 95 H Respiratory Rate 25 H 25 H 25 H Blood Pressure 163/84 H 177/89 H Pulse Oximetry 96 95 92 L 01/31/18 03:00 01/31/18 03:01 01/31/18 03:30 Temperature Pulse Rate 100 H 100 H 96 H Respiratory Rate 25 H 25 H 25 H Blood Pressure 164/81 H 158/89 H Pulse Oximetry 94 L 94 L 96 01/31/18 04:00 01/31/18 04:31 01/31/18 05:00 Temperature 98.7 F Pulse Rate 97 H 95 H 93 H Respiratory Rate 25 H 25 H 25 H Blood Pressure 154/94 H 144/90 H Pulse Oximetry 98 100 100 01/31/18 05:09 01/31/18 05:30 01/31/18 06:00 Temperature Pulse Rate 98 H 90 91 H Respiratory Rate 25 H 25 H 25 H Blood Pressure 172/99 H 178/93 H 186/85 H Pulse Oximetry 96 100 97 01/31/18 06:31 01/31/18 07:00 01/31/18 07:01 Temperature Pulse Rate 92 H 92 H 93 H Respiratory Rate 25 H 25 H 25 H Blood Pressure 158/80 H 169/89 H Pulse Oximetry 96 92 L 94 L 01/31/18 07:30 01/31/18 07:47 01/31/18 08:00 Temperature 98.8 F Pulse Rate 89 97 H Respiratory Rate 25 H 25 H Blood Pressure 172/99 H 161/87 H Pulse Oximetry 93 L 94 L 93 L 01/31/18 08:30 01/31/18 09:00 01/31/18 09:30 Temperature Pulse Rate 93 H 97 H 94 H Respiratory Rate 25 H 25 H 25 H Blood Pressure 154/92 H 164/95 H 159/94 H Pulse Oximetry 97 93 L 96 01/31/18 10:00 01/31/18 10:01 01/31/18 10:10 Temperature Pulse Rate 85 86 84 Respiratory Rate 25 H 25 H 25 H Blood Pressure 174/100 H 171/102 H Pulse Oximetry 88 L 87 L 92 L 01/31/18 10:20 01/31/18 10:30 01/31/18 11:00 Temperature Pulse Rate 84 88 92 H Respiratory Rate 25 H 25 H 25 H Blood Pressure 176/95 H 156/89 H 151/76 H Pulse Oximetry 96 96 93 L Intake & Output 01/30/18 01/31/18 01/31/18 18:59 06:59 18:59 Intake Total 1465 / 1465 1615 / 1615 885 / 885 Output Total 300 / 300 Balance 1465 / 1465 1315 / 1315 885 / 885 Weight 102 kg Intake: IV 1465 / 1465 1515 / 1515 885 / 885 D5W Inj 1,000 ML @ 84 mls/hr IV 1000 / 1000 700 / 700 .CONT .[id number] [facility] Rx#:[id number] D5W/1/2 NS Inj 1,000 ML @ 84 950 / 950 mls/hr IV.CONT .[id number] [facility] Rx# :[id number] KCl 20 mEq Premix Inj 20 meq In 185 / 185 100 ml @ 50 mls/hr IV.SIG Q2H [facility] Rx#:[id number] Vancomycin Inj 1,500 MG In NS 515 / 515 515 / 515 Inj 500 ML @ 250 mls/hr IV.SIG Q12H [facility] Rx#:[id number] Water Bolus Amount 100 / 100 Output: Urine 300 / 300 Other: # Voids 3 # Incontinent Voids 2 Date of Last Bowel Movement 01/28/18 01/28/18 01/28/18 # Bowel Movements 0 0 GENERAL: WBWn, mild sob SKIN: Warm and dry. HEAD: Normocephalic. EYES: No scleral icterus. No injection or drainage. NECK: Supple, trachea midline. No JVD or lymphadenopathy. CARDIOVASCULAR: Regular rate and rhythm without murmurs, gallops, or rubs. RESPIRATORY: Breath sounds equal bilaterally. No accessory muscle use. GASTROINTESTINAL: Abdomen soft, non-tender, nondistended. MUSCULOSKELETAL: No cyanosis, or edema. BACK: Nontender without obvious deformity. No CVA tenderness. - Urinary Catheter Management Straight Cath placed during this visit: yes, but has since been removed by the nurse Reason for continuing: Not indwelling catheter Insertion date: 01/26/18 Insertion time: 17:30 Removal date: 01/26/18 Removal time: 17:35 400 Cath placed during this visit: no Assessment and Plan - Plan IMPRESSION: 1. Mild shortness of breath and cough, possibly underlying asthma. 2. Hypertension. 3. Diabetes mellitus. 4. Cirrhosis of the liver. 5. VDRF, s/p extubation 01/27 6. Encephalopathy. PLAN: Supplement 02 CPAP prn sob Depakote 500 mg daily Monitor Ammonia level. Oral suction prn.
[2018-02-01 04:32] LABS: Baso # (Auto) 0.1 th/mm3 (0.0-0.2); Baso % (Auto) 0.8 % (0.0-2.0); Eos # (Auto) 0.4 th/mm3 (0.0-0.4); Eos % (Auto) 3.1 % (0.0-4.0); Hematocrit 29.2 % (39.0-51.0); Hemoglobin 9.3 gm/dL (13.0-17.0); Lymph # (Auto) 0.8 th/mm3 (1.0-4.8); Lymph % (Auto) 6.6 % (9.0-44.0); Mean Corpuscular HGB Conc 31.8 % (32.0-36.0); Mean Corpuscular Hemoglobin 25.4 pg (27.0-34.0); Mean Corpuscular Volume 79.8 fL (80.0-100.0); Mean Platelet Volume 6.7 fL (7.0-11.0); Mono # (Auto) 1.9 th/mm3 (0.0-0.9); Mono % (Auto) 15.1 % (0.0-8.0); Neut # (Auto) 9.5 th/mm3 (1.8-7.7); Neut % (Auto) 74.4 % (16.0-70.0); Platelet Count 120 th/mm3 (150-450); Red Blood Count 3.66 mil/mm3 (4.50-5.90); Red Cell Distribution Width 18.6 % (11.6-17.2); White Blood Count 12.8 th/mm3 (4.0-11.0)
[2018-02-01] MEDS: Dextrose 5% in Water Inj 1,000 ML IV.CONT SCH ×2 (04:33→20:18)
[2018-02-01] MEDS: Oral Hygiene Kit OROPHARYNG SCH ×3 (04:33→17:20)
[2018-02-01] MEDS: Benzonatate 100 MG Capsule PO SCH ×3 (04:33→21:18)
[2018-02-01 04:58] LABS: Albumin 2.5 g/dL (3.4-5.0); Anion Gap 6 meq/L (5-15); Aspartate Aminotransferase 48 U/L (15-37); Blood Urea Nitrogen 9 mg/dL (7-18); Calcium 8.2 mg/dL (8.5-10.1); Carbon Dioxide 27.4 meq/L (21.0-32.0); Chloride 116 meq/L (98-107); Glomerular Filtration Rate Greater Than 89 mL/min (>89); Glucose,Random 129 mg/dL (74-106); Magnesium 1.8 mg/dL (1.5-2.5); Potassium 3.5 meq/L (3.5-5.1); Sodium 149 meq/L (136-145)
[2018-02-01 05:03] LABS: Alanine Aminotransferase 26 U/L (12-78); Alkaline Phosphatase 198 U/L (45-117); Total Protein 6.5 g/dL (6.4-8.2)
[2018-02-01] MEDS: Insulin NovoLOG Aspart Correctional Sugar Inj SQ SCH ×3 (05:10→20:20)
[2018-02-01] MEDS: Artificial Tears Opth Drops 15 ML Bottle EACH EYE SCH ×3 (05:10→21:20)
[2018-02-01] MEDS: Chlorhexidine 0.12% Oral Kit 15 ML UDC OROPHARYNG SCH ×2 (08:09→21:18)
[2018-02-01] MEDS: Pantoprazole Inj 40 MG Vial IV.PUSH SCH ×2 (09:12→21:19)
[2018-02-01] MEDS: Sodium Chloride 0.9% 2 ML Flush BID IV.FLUSH SCH ×2 (09:12→21:18)
[2018-02-01] MEDS: Multivit/Folic Acid/Minerals Chewable Tablets CHEW SCH (10:11)
[2018-02-01] MEDS: Propranolol 40 MG Tablet PO SCH ×2 (10:11→21:18)
[2018-02-01] MEDS: Senna/Docusate Sodium 8.6/50 MG Tablet PO SCH ×2 (10:12→21:18)
[2018-02-01] MEDS: amLODIPine 10 MG Tablet PO SCH (10:12)
[2018-02-01] MEDS: rifAXIMin 550 MG Tablet PO SCH ×2 (10:13→21:19)
--- NOTE | 2018-02-01 10:53 | XR ---
EXAM DATE: 02/01/2018 10:47 AM EST AGE/SEX: 52 years / Male INDICATIONS: NG tube placement. CLINICAL DATA: This is the patient's subsequent encounter. Patient reports that signs and symptoms h ave been present for 3 days and indicates a pain score of Nonresponsive. MEDICAL/SURGICAL HISTORY: Non-responsive. Non-responsive. COMPARISON: [facility] [place], CHEST 1V SINGLE AP, 01/31/2018. . FINDINGS: A single AP image over the lower chest and upper abdomen has been obtained. Overlying support lines a re seen in the upper abdomen region. There is an NG tube in place with tip directed into the distal a spect of the stomach. The heart size appears within normal limits. The visualized portions of the lyla g bases appear grossly clear. CONCLUSION: NG tube tip directed into the distal stomach. Electronically signed by: Man Reed MD 02/01/2018 10:51 AM EST
--- NOTE | 2018-02-01 11:40 | P.PNCC ---
Subjective Subjective Remarks/Hospital Course: The patient is a 52-year-old male with a past medical history of ETOH abuse, cirrhosis of liver secondary to alcohol, hypertension, diabetes mellitus, anxiety, depression, prior history of upper gastrointestinal bleed x2 due to esophageal varices. The patient was admitted under the family medicine team on 01/15/[address] A CT scan of the abdomen and pelvis showed a cirrhotic liver with evidence of portal hypertension and prominent gastroesophageal varices. No ascites noted. The patient also underwent an ultrasound of the abdomen, which showed no significant ascites. He was seen by GI service and underwent upper endoscopy on 01/16/2018 which showed grade 2 esophageal varices, status post banding x4, gastritis and hiatal hernia. The patient also had a CT scan of the chest on 01/16/2018 which showed mild infiltrates in the posterior lower lung hussein suggestive of atelectasis and nonspecific 1.5 cm lymph node in the anterior superior mediastinum. He is being followed by Dr. Maki from pulmonary service. Due to altered mental status and possible alcohol remains quite encephalopathic and agitated. withdrawal he was transferred to ICU and critical care medicine was consulted for critical care management. He received Ativan 6-8 mg total along with Haldol and the patient remained restless and agitated. Most of the history was obtained from reviewing medical records as the patient is a poor historian. ABG was performed this morning on room air, which showed a pH of 7.44, CO2 41, PaO2 69, bicarbonate 27, saturation 91%. 01/19: Patient with worsening oxygenation status. Essentially unresponsive obtunded. Ammonia level is 98 this morning. Elective intubation. 01/20 Patient is intubated and sedated, afebrile. 01/21 Patient remains sedated with Fentnayl, Diprivan and Versed. T;100.5, CT brain yesterday no acute findings. 01/22: Remains intubated sedated Versed had been held since a.m. Remains unresponsive failed CPAP trial today due to tachypnea. Spontaneously moves lower extremities no spontaneous eye opening. Large amount of ET tube secretions reported. Sputum cx 01/19 MRSA 01/23: Remains sedated and intubated, some mild dyssynchrony with the vent during my exam. 01/24: Patient gets very agitated during sedation vacations, still requiring propofol/ versed/ fentanyl gtts. Temp is 99F, still diaphoretic on exam. 01/25: BUN/ creat trending up but urine output remains adequate. Patient's home med list includes bumex, will start diuresis today to see if this improves renal function. Of note, his home list also includes Fosrenal and mesalamine but it is unclear from previous records if patient has a h/o CKD or inflammatory bowel disease. 01/26: Creat plateaued and urine output much improved with dose of lasix yesterday, will restart home bumex dose. Propofol d/cd yesterday, versed currently on hold, precedex and fentanyl both at low doses. Copious thick secretions from ETT which are difficult to suction with in-line, will perform bedside bronch for pulmonary toilet. No contact info available for next of kin to obtain consent but patient will need this in preparation for extubation. 01/27: Patient had bronchoscopy performed yesterday, secretions are thinner and easier to suction as per RT. Balloon on ETT is sheared but patient is still receiving full tidal volumes. He is tolerating pressure support 10/5 at 40% this morning, would like to try to extubate today. 01/28: Patient extubated yesterday, still fairly encephalopathic and agitated. 01/29: Remains encephalopathic, failed swallow eval 2 days in a row, NGT attempted yesterday but patient coughed until it dislodged. Ativan requirements somewhat less today than yesterday. 01/30: Remains quite encephalopathic, very somnolent. Receiving Ativan per CIWA protocol. Remains in active alcohol withdrawal. Continues to fail swallow eval, and pulled out NG tube. Systolic blood pressure is high in 190s increase as needed labetalol to 20 mg IV every 2 hours as needed 01/31: Remains slightly more awake today opens eyes very weakly following commands. Received approximately 5 mg of Ativan overnight per CIWA protocol. I will discontinue the CIWA protocol and placed on 0.5 mg IV Ativan every 4 hours as needed to avoid oversedation. Sodium remains high at 155 free water replacement started, in addition to D5W being increased to 150 mL/h. Start tube feeds also 02/01: Mentation improving after discontinuing CIWA protocol. Received as needed Ativan will discontinue that also as the patient should be out of the DT window. He does track and follow some basic commands. Sodium improved to 149 Objective Vital Signs / I&O: Vital Signs 01/31/18 12:00 01/31/18 12:31 01/31/18 13:00 Temperature 98.7 F Pulse Rate 97 H 94 H 99 H Respiratory Rate 20 25 H 28 H Blood Pressure 162/83 H 165/88 H Pulse Oximetry 94 L 92 L 93 L 01/31/18 13:01 01/31/18 13:30 01/31/18 14:00 Temperature Pulse Rate 100 H 97 H 101 H Respiratory Rate 18 18 17 Blood Pressure 146/80 H 143/74 H 148/72 H Pulse Oximetry 91 L 94 L 95 01/31/18 14:31 01/31/18 15:00 01/31/18 15:30 Temperature Pulse Rate 98 H 97 H 97 H Respiratory Rate 18 20 25 H Blood Pressure 153/72 H 143/76 H 168/72 H Pulse Oximetry 94 L 94 L 94 L 01/31/18 16:00 01/31/18 16:01 01/31/18 16:30 Temperature 98.2 F Pulse Rate 94 H 93 H 95 H Respiratory Rate 21 25 H 24 Blood Pressure 154/74 H 147/79 H Pulse Oximetry 95 96 98 01/31/18 17:00 01/31/18 17:30 01/31/18 18:00 Temperature Pulse Rate 94 H 94 H 95 H Respiratory Rate 20 24 22 Blood Pressure 135/75 131/78 137/83 Pulse Oximetry 97 96 95 01/31/18 18:30 01/31/18 19:00 01/31/18 19:01 Temperature Pulse Rate 98 H 99 H 98 H Respiratory Rate 21 56 H 50 H Blood Pressure 148/84 H 176/93 H Pulse Oximetry 97 96 94 L 01/31/18 19:31 01/31/18 20:00 01/31/18 20:07 Temperature 97.9 F Pulse Rate 100 H 99 H 101 H Respiratory Rate 26 H 36 H 34 H Blood Pressure 150/78 H 140/86 Pulse Oximetry 96 92 L 96 01/31/18 20:30 01/31/18 21:00 01/31/18 21:01 Temperature Pulse Rate 109 H 102 H 103 H Respiratory Rate 27 H 26 H 37 H Blood Pressure 140/85 157/91 H Pulse Oximetry 95 92 L 73 L 01/31/18 21:31 01/31/18 22:00 01/31/18 22:23 Temperature Pulse Rate 102 H 103 H Respiratory Rate 53 H 50 H Blood Pressure 175/85 H 158/89 H Pulse Oximetry 90 L 92 L 98 01/31/18 22:30 01/31/18 23:00 01/31/18 23:30 Temperature Pulse Rate 101 H 96 H 95 H Respiratory Rate 23 26 H 24 Blood Pressure 158/87 H 158/89 H 159/81 H Pulse Oximetry 95 94 L 90 L 02/01/18 00:00 02/01/18 00:30 02/01/18 01:00 Temperature 99.1 F Pulse Rate 96 H 93 H 90 Respiratory Rate 37 H 28 H 27 H Blood Pressure 160/94 H 160/79 H 146/76 H Pulse Oximetry 95 93 L 97 02/01/18 01:30 02/01/18 02:00 02/01/18 02:30 Temperature Pulse Rate 92 H 89 89 Respiratory Rate 44 H 32 H 28 H Blood Pressure 148/83 H 136/81 145/87 H Pulse Oximetry 96 98 97 02/01/18 03:00 02/01/18 03:31 02/01/18 04:00 Temperature 98.6 F Pulse Rate 87 92 H 93 H Respiratory Rate 28 H 34 H 55 H Blood Pressure 143/85 H 174/83 H Pulse Oximetry 97 84 L 96 02/01/18 04:01 Temperature Pulse Rate 91 H Respiratory Rate 51 H Blood Pressure 166/83 H Pulse Oximetry 95 Intake & Output 01/31/18 02/01/18 02/01/18 18:59 06:59 18:59 Intake Total 1952 / 1952 1821 / 1821 Output Total 1625 / 1625 550 / 550 Balance 327 / 327 1271 / 1271 Weight 99.5 kg Intake: IV 1560 / 1560 1515 / 1515 D5W Inj 1,000 ML @ 84 mls/hr IV 700 / 700 1000 / 1000 .CONT .[id number] ON LICENSE OF [facility] Rx#:[id number] KCl 20 mEq Premix Inj 20 meq In 360 / 360 100 ml @ 50 mls/hr IV.SIG Q2H PRN Rx#:[id number] Vancomycin Inj 1,500 MG In NS 500 / 500 515 / 515 Inj 500 ML @ 250 mls/hr IV.SIG Q12H MANUEL Rx#:[id number] Tube Feeding 306 / 306 Tube Irrigant 120 / 120 Water Bolus Amount 250 / 250 Output: Urine 1625 / 1625 550 / 550 Other: Date of Last Bowel Movement 01/31/18 01/31/18 # Incontinent Bowel Movements 2 5 Result Diagrams: 02/01/18 04:00 02/01/18 04:00 Objective Remarks: GENERAL: Eyes are open spontaneously today. Tracking SKIN: Warm, dry HEENT: NCAT. Eczema to lower face. NG tube in place NECK: Trachea midline. CARDIOVASCULAR: Normal rate and rhythm. No murmur. Intermittently hypertensive RESPIRATORY: Coarse breath sounds bilaterally, strong cough GASTROINTESTINAL: Abdomen soft, non-tender, non-distended. MUSCULOSKELETAL: Trace extremity edema. NEUROLOGICAL: Somnolent but spontaneously opens eyes tracks. Moving extremities intermittently following commands on the UE. Generalized weakness present Assessment and Plan - Assessment and Plan Plan: ASSESSMENT Acute encephalopathy multifactorial Delirium tremens-resolving Hepatic encephalopathy Acute respiratory failure, MRSA in sputum-improving Hypernatremia Cirrhosis of the liver secondary to ETOH abuse Microcytosis and thrombocytopenia, likely secondary to end-stage liver disease. Hypertension, poorly controlled Diabetes mellitus hemoglobin A1c 6.0. Ongoing abuse/EtOH History of cannabinoids use Hypoalbuminemia Esophageal varices status post banding by GI Elevated BMI PLAN Neuro/Psych: Continue PO lactulose and rifaximin via NGT, trend ammonia DCd CIWA protocol, DC IV Ativan, patient should be out of the DT window now. Use IV Haldol as per as needed orders-monitor closely for seizures Scheduled clonidine 0.2 mg p.o. every 8 hours CV: Monitor HR and BP keep MAP>65mmHg Hold lisinopril due to elevated creat (see below) Scheduled clonidine 0.2 mg p.o. every 8 hours Continue Inderal 40 mg BID Amlodipine to 10 mg daily Continue pravastatin 40 mg daily for hyperlipidemia IV labetalol to 20 mg every 2 hours as needed for SBP more than 170 Resp: Albuterol/ipratropium aerosols every 4 hours with albuterol aerosols every 2 hours as needed dyspnea. Aggressive chest PT GI: Status post EGD on 01/16/2018 which showed grade 2 esophageal varices, status post banding x4. Abdominal ultrasound on 01/15/2018 showed no evidence of significant ascites. Pantoprazole 40 m IV twice daily for GI prophylaxis On lactulose 30 cc QID and Xifaxan 550 mg twice daily. Ammonia level 48 Failing speech eval, NGT placed-diet with Glucerna, changed to low protein formula : Monitor renal function, creat and urine output much improved, continue home dose of Bumex Hypernatremia-currently on D5W, decrease to 100 mL/h. Free water replacement through NG tube Electrolyte replacement per protocol Endo: Sliding scale insulin with Accu-Cheks every 6 hours to maintain euglycemia Hemoglobin A1c was 6.0 Heme: Monitor CBC ID: s/p 7 day treatment for MRSA pneumonia, observe off antibiotics Access -Utilize peripheral IV. Prophylaxis - GI-pantoprazole - DVT SCD/ lovenox - 01/19 Doppler US RUE: Positive for nonocclusive deep venous thrombosis in the right mid brachial vein, follow up scan on 01/27 showed no DVT, no concerning signs or symptoms of PE Level 2 follow up CCM will sign off. Reconsult as needed. FP service is primary
--- NOTE | 2018-02-01 12:01 | P.PNFP ---
Subjective Interval history: Patient seen and examined. He is able to follow some basic commands. Is not able to verbalize his name. Recognizes the year. Still in restraints, appears calm. Afebrile. 2175 cc UOP noted. <Edgar Blackburn - 02/01/18 12:01> Results - Labs Result diagrams: 02/01/18 04:00 02/01/18 04:00 <Kusum Weiss - 02/01/18 14:00> Abnormal lab results 01/31/18 01/31/18 02/01/18 Range/Units 17:15 23:37 04:00 WBC 12.8 H D (4.0-11.0) th/mm3 RBC 3.66 L (4.50-5.90) mil/mm3 Hgb 9.3 L (13.0-17.0) gm/dL Hct 29.2 L (39.0-51.0) % MCV 79.8 L (80.0-100.0) fL MCH 25.4 L (27.0-34.0) pg MCHC 31.8 L (32.0-36.0) % RDW 18.6 H (11.6-17.2) % Plt Count 120 L (150-450) th/mm3 MPV 6.7 L (7.0-11.0) fL Neut % (Auto) 74.4 H (16.0-70.0) % Lymph % (Auto) 6.6 L (9.0-44.0) % Avery % (Auto) 15.1 H (0.0-8.0) % Neut # (Auto) 9.5 H (1.8-7.7) th/mm3 Lymph # (Auto) 0.8 L (1.0-4.8) th/mm3 Avery # (Auto) 1.9 H (0.0-0.9) th/mm3 Sodium (136-145) meq/L Chloride (98-107) meq/L POC Glucose 131 H 120 H (68-110) mg/dl Random Glucose (74-106) mg/dL Calcium (8.5-10.1) mg/dL Total Bilirubin (0.2-1.0) mg/dL AST (15-37) U/L Alkaline Phosphatase (45-117) U/L Ammonia (11-32) mcmol/L Albumin (3.4-5.0) g/dL 02/01/18 02/01/18 Range/Units 04:00 04:00 WBC (4.0-11.0) th/mm3 RBC (4.50-5.90) mil/mm3 Hgb (13.0-17.0) gm/dL Hct (39.0-51.0) % MCV (80.0-100.0) fL MCH (27.0-34.0) pg MCHC (32.0-36.0) % RDW (11.6-17.2) % Plt Count (150-450) th/mm3 MPV (7.0-11.0) fL Neut % (Auto) (16.0-70.0) % Lymph % (Auto) (9.0-44.0) % Avery % (Auto) (0.0-8.0) % Neut # (Auto) (1.8-7.7) th/mm3 Lymph # (Auto) (1.0-4.8) th/mm3 Avery # (Auto) (0.0-0.9) th/mm3 Sodium 149 H (136-145) meq/L Chloride 116 H (98-107) meq/L POC Glucose (68-110) mg/dl Random Glucose 129 H (74-106) mg/dL Calcium 8.2 L (8.5-10.1) mg/dL Total Bilirubin 1.1 H (0.2-1.0) mg/dL AST 48 H (15-37) U/L Alkaline Phosphatase 198 H (45-117) U/L Ammonia 48 H (11-32) mcmol/L Albumin 2.5 L (3.4-5.0) g/dL Short CBC 02/01/18 Range/Units 04:00 WBC 12.8 H D (4.0-11.0) th/mm3 Hgb 9.3 L (13.0-17.0) gm/dL Hct 29.2 L (39.0-51.0) % Plt Count 120 L (150-450) th/mm3 BMP 01/31/18 02/01/18 20:57 04:00 Sodium 149 H Potassium 3.6 3.5 Chloride 116 H Carbon Dioxide 27.4 BUN 9 Creatinine 0.70 Calcium 8.2 L Liver Function 02/01/18 Range/Units 04:00 Total Bilirubin 1.1 H (0.2-1.0) mg/dL AST 48 H (15-37) U/L ALT 26 (12-78) U/L Alkaline Phosphatase 198 H (45-117) U/L Albumin 2.5 L (3.4-5.0) g/dL <Kusum Weiss R - 02/01/18 14:00> Abnormal lab results 01/31/18 01/31/18 02/01/18 Range/Units 17:15 23:37 04:00 WBC 12.8 H D (4.0-11.0) th/mm3 RBC 3.66 L (4.50-5.90) mil/mm3 Hgb 9.3 L (13.0-17.0) gm/dL Hct 29.2 L (39.0-51.0) % MCV 79.8 L (80.0-100.0) fL MCH 25.4 L (27.0-34.0) pg MCHC 31.8 L (32.0-36.0) % RDW 18.6 H (11.6-17.2) % Plt Count 120 L (150-450) th/mm3 MPV 6.7 L (7.0-11.0) fL Neut % (Auto) 74.4 H (16.0-70.0) % Lymph % (Auto) 6.6 L (9.0-44.0) % Avery % (Auto) 15.1 H (0.0-8.0) % Neut # (Auto) 9.5 H (1.8-7.7) th/mm3 Lymph # (Auto) 0.8 L (1.0-4.8) th/mm3 Avery # (Auto) 1.9 H (0.0-0.9) th/mm3 Sodium (136-145) meq/L Chloride (98-107) meq/L POC Glucose 131 H 120 H (68-110) mg/dl Random Glucose (74-106) mg/dL Calcium (8.5-10.1) mg/dL Total Bilirubin (0.2-1.0) mg/dL AST (15-37) U/L Alkaline Phosphatase (45-117) U/L Ammonia (11-32) mcmol/L Albumin (3.4-5.0) g/dL 02/01/18 02/01/18 Range/Units 04:00 04:00 WBC (4.0-11.0) th/mm3 RBC (4.50-5.90) mil/mm3 Hgb (13.0-17.0) gm/dL Hct (39.0-51.0) % MCV (80.0-100.0) fL MCH (27.0-34.0) pg MCHC (32.0-36.0) % RDW (11.6-17.2) % Plt Count (150-450) th/mm3 MPV (7.0-11.0) fL Neut % (Auto) (16.0-70.0) % Lymph % (Auto) (9.0-44.0) % Avery % (Auto) (0.0-8.0) % Neut # (Auto) (1.8-7.7) th/mm3 Lymph # (Auto) (1.0-4.8) th/mm3 Avery # (Auto) (0.0-0.9) th/mm3 Sodium 149 H (136-145) meq/L Chloride 116 H (98-107) meq/L POC Glucose (68-110) mg/dl Random Glucose 129 H (74-106) mg/dL Calcium 8.2 L (8.5-10.1) mg/dL Total Bilirubin 1.1 H (0.2-1.0) mg/dL AST 48 H (15-37) U/L Alkaline Phosphatase 198 H (45-117) U/L Ammonia 48 H (11-32) mcmol/L Albumin 2.5 L (3.4-5.0) g/dL Short CBC 02/01/18 Range/Units 04:00 WBC 12.8 H D (4.0-11.0) th/mm3 Hgb 9.3 L (13.0-17.0) gm/dL Hct 29.2 L (39.0-51.0) % Plt Count 120 L (150-450) th/mm3 BMP 01/31/18 02/01/18 20:57 04:00 Sodium 149 H Potassium 3.6 3.5 Chloride 116 H Carbon Dioxide 27.4 BUN 9 Creatinine 0.70 Calcium 8.2 L Liver Function 02/01/18 Range/Units 04:00 Total Bilirubin 1.1 H (0.2-1.0) mg/dL AST 48 H (15-37) U/L ALT 26 (12-78) U/L Alkaline Phosphatase 198 H (45-117) U/L Albumin 2.5 L (3.4-5.0) g/dL <CrowbrynnEdgar neville - 02/01/18 12:01> - Imaging Impressions Chest X-Ray 02/01/18 10:19 CONCLUSION: NG tube tip directed into the distal stomach. <Kusum Weiss - 02/01/18 14:00> Impressions Chest X-Ray 02/01/18 10:19 CONCLUSION: NG tube tip directed into the distal stomach. <CrowbrynnEdgar neville - 02/01/18 12:01> Physical Exam Vital signs: Vital Signs 01/31/18 14:31 01/31/18 15:00 01/31/18 15:30 Temperature Pulse Rate 98 H 97 H 97 H Respiratory Rate 18 20 25 H Blood Pressure 153/72 H 143/76 H 168/72 H Pulse Oximetry 94 L 94 L 94 L 01/31/18 16:00 01/31/18 16:01 01/31/18 16:30 Temperature 98.2 F Pulse Rate 94 H 93 H 95 H Respiratory Rate 21 25 H 24 Blood Pressure 154/74 H 147/79 H Pulse Oximetry 95 96 98 01/31/18 17:00 01/31/18 17:30 01/31/18 18:00 Temperature Pulse Rate 94 H 94 H 95 H Respiratory Rate 20 24 22 Blood Pressure 135/75 131/78 137/83 Pulse Oximetry 97 96 95 01/31/18 18:30 01/31/18 19:00 01/31/18 19:01 Temperature Pulse Rate 98 H 99 H 98 H Respiratory Rate 21 56 H 50 H Blood Pressure 148/84 H 176/93 H Pulse Oximetry 97 96 94 L 01/31/18 19:31 01/31/18 20:00 01/31/18 20:07 Temperature 97.9 F Pulse Rate 100 H 99 H 101 H Respiratory Rate 26 H 36 H 34 H Blood Pressure 150/78 H 140/86 Pulse Oximetry 96 92 L 96 01/31/18 20:30 01/31/18 21:00 01/31/18 21:01 Temperature Pulse Rate 109 H 102 H 103 H Respiratory Rate 27 H 26 H 37 H Blood Pressure 140/85 157/91 H Pulse Oximetry 95 92 L 73 L 01/31/18 21:31 01/31/18 22:00 01/31/18 22:23 Temperature Pulse Rate 102 H 103 H Respiratory Rate 53 H 50 H Blood Pressure 175/85 H 158/89 H Pulse Oximetry 90 L 92 L 98 01/31/18 22:30 01/31/18 23:00 01/31/18 23:30 Temperature Pulse Rate 101 H 96 H 95 H Respiratory Rate 23 26 H 24 Blood Pressure 158/87 H 158/89 H 159/81 H Pulse Oximetry 95 94 L 90 L 02/01/18 00:00 02/01/18 00:30 02/01/18 01:00 Temperature 99.1 F Pulse Rate 96 H 93 H 90 Respiratory Rate 37 H 28 H 27 H Blood Pressure 160/94 H 160/79 H 146/76 H Pulse Oximetry 95 93 L 97 02/01/18 01:30 02/01/18 02:00 02/01/18 02:30 Temperature Pulse Rate 92 H 89 89 Respiratory Rate 44 H 32 H 28 H Blood Pressure 148/83 H 136/81 145/87 H Pulse Oximetry 96 98 97 02/01/18 03:00 02/01/18 03:31 02/01/18 04:00 Temperature 98.6 F Pulse Rate 87 92 H 93 H Respiratory Rate 28 H 34 H 55 H Blood Pressure 143/85 H 174/83 H Pulse Oximetry 97 84 L 96 02/01/18 04:01 02/01/18 08:00 Temperature Pulse Rate 91 H Respiratory Rate 51 H Blood Pressure 166/83 H Pulse Oximetry 95 97 Intake & Output 01/31/18 02/01/18 02/01/18 18:59 06:59 18:59 Intake Total 1951 / 1951 1821 / 1821 Output Total 1625 / 1625 550 / 550 Balance 327 / 327 1271 / 1271 Weight 99.5 kg Intake: IV 1560 / 1560 1515 / 1515 D5W Inj 1,000 ML @ 84 mls/hr IV 700 / 700 1000 / 1000 .CONT .[id number] [facility] Rx#:[id number] KCl 20 mEq Premix Inj 20 meq In 360 / 360 100 ml @ 50 mls/hr IV.SIG Q2H PRN Rx#:[id number] Vancomycin Inj 1,500 MG In NS 500 / 500 515 / 515 Inj 500 ML @ 250 mls/hr IV.SIG Q12H [facility] Rx#:[id number] Tube Feeding 306 / 306 Tube Irrigant 120 / 120 Water Bolus Amount 250 / 250 Output: Urine 1625 / 1625 550 / 550 Other: Date of Last Bowel Movement 01/31/18 01/31/18 # Incontinent Bowel Movements 2 5 <Kusum Weiss R - 02/01/18 14:00> Vital Signs 01/31/18 12:00 01/31/18 12:31 01/31/18 13:00 Temperature 98.7 F Pulse Rate 97 H 94 H 99 H Respiratory Rate 20 25 H 28 H Blood Pressure 162/83 H 165/88 H Pulse Oximetry 94 L 92 L 93 L 01/31/18 13:01 01/31/18 13:30 01/31/18 14:00 Temperature Pulse Rate 100 H 97 H 101 H Respiratory Rate 18 18 17 Blood Pressure 146/80 H 143/74 H 148/72 H Pulse Oximetry 91 L 94 L 95 01/31/18 14:31 01/31/18 15:00 01/31/18 15:30 Temperature Pulse Rate 98 H 97 H 97 H Respiratory Rate 18 20 25 H Blood Pressure 153/72 H 143/76 H 168/72 H Pulse Oximetry 94 L 94 L 94 L 01/31/18 16:00 01/31/18 16:01 01/31/18 16:30 Temperature 98.2 F Pulse Rate 94 H 93 H 95 H Respiratory Rate 21 25 H 24 Blood Pressure 154/74 H 147/79 H Pulse Oximetry 95 96 98 01/31/18 17:00 01/31/18 17:30 01/31/18 18:00 Temperature Pulse Rate 94 H 94 H 95 H Respiratory Rate 20 24 22 Blood Pressure 135/75 131/78 137/83 Pulse Oximetry 97 96 95 01/31/18 18:30 01/31/18 19:00 01/31/18 19:01 Temperature Pulse Rate 98 H 99 H 98 H Respiratory Rate 21 56 H 50 H Blood Pressure 148/84 H 176/93 H Pulse Oximetry 97 96 94 L 01/31/18 19:31 01/31/18 20:00 01/31/18 20:07 Temperature 97.9 F Pulse Rate 100 H 99 H 101 H Respiratory Rate 26 H 36 H 34 H Blood Pressure 150/78 H 140/86 Pulse Oximetry 96 92 L 96 01/31/18 20:30 01/31/18 21:00 01/31/18 21:01 Temperature Pulse Rate 109 H 102 H 103 H Respiratory Rate 27 H 26 H 37 H Blood Pressure 140/85 157/91 H Pulse Oximetry 95 92 L 73 L 01/31/18 21:31 01/31/18 22:00 01/31/18 22:23 Temperature Pulse Rate 102 H 103 H Respiratory Rate 53 H 50 H Blood Pressure 175/85 H 158/89 H Pulse Oximetry 90 L 92 L 98 01/31/18 22:30 01/31/18 23:00 01/31/18 23:30 Temperature Pulse Rate 101 H 96 H 95 H Respiratory Rate 23 26 H 24 Blood Pressure 158/87 H 158/89 H 159/81 H Pulse Oximetry 95 94 L 90 L 02/01/18 00:00 02/01/18 00:30 02/01/18 01:00 Temperature 99.1 F Pulse Rate 96 H 93 H 90 Respiratory Rate 37 H 28 H 27 H Blood Pressure 160/94 H 160/79 H 146/76 H Pulse Oximetry 95 93 L 97 02/01/18 01:30 02/01/18 02:00 02/01/18 02:30 Temperature Pulse Rate 92 H 89 89 Respiratory Rate 44 H 32 H 28 H Blood Pressure 148/83 H 136/81 145/87 H Pulse Oximetry 96 98 97 02/01/18 03:00 02/01/18 03:31 02/01/18 04:00 Temperature 98.6 F Pulse Rate 87 92 H 93 H Respiratory Rate 28 H 34 H 55 H Blood Pressure 143/85 H 174/83 H Pulse Oximetry 97 84 L 96 02/01/18 04:01 Temperature Pulse Rate 91 H Respiratory Rate 51 H Blood Pressure 166/83 H Pulse Oximetry 95 Intake & Output 01/31/18 02/01/18 02/01/18 18:59 06:59 18:59 Intake Total 195 / 1951 1821 / 1821 Output Total 1625 / 1625 550 / 550 Balance 327 / 327 1271 / 1271 Weight 99.5 kg Intake: IV 1560 / 1560 1515 / 1515 D5W Inj 1,000 ML @ 84 mls/hr IV 700 / 700 1000 / 1000 .CONT .[id number] [facility] Rx#:[id number] KCl 20 mEq Premix Inj 20 meq In 360 / 360 100 ml @ 50 mls/hr IV.SIG Q2H PRN Rx#:[id number] Vancomycin Inj 1,500 MG In NS 500 / 500 515 / 515 Inj 500 ML @ 250 mls/hr IV.SIG Q12H [facility] Rx#:[id number] Tube Feeding 306 / 306 Tube Irrigant 120 / 120 Water Bolus Amount 250 / 250 Output: Urine 1625 / 1625 550 / 550 Other: Date of Last Bowel Movement 01/31/18 01/31/18 # Incontinent Bowel Movements 2 5 <Edgar Blackburn 02/01/18 12:01> Narrative: GENERAL: NAD, in restraints, able to follow basic commands SKIN: Warm and dry. No petechia or rash HEAD: Atraumatic. Normocephalic. ENT: No nasal bleeding or discharge. NECK: Trachea midline. No JVD. CARDIOVASCULAR: Regular rate and rhythm. No murmur RESPIRATORY: B/l equal air entry. Coarse breath sound appreciated anteriorly. GASTROINTESTINAL: Abdomen soft, non-tender, slightly distended. MUSCULOSKELETAL: Extremities without clubbing, cyanosis, or edema. No obvious deformities. +2 PD pulses BL NEUROLOGICAL: limited, no focal neurological deficits noted on exam. Not able to answer questions, make noises intermittently. Follows basic one-step commands. <Edagr Blackubrn - 02/01/18 12:01> - Urinary Catheter Management 400 Cath placed during this visit: no <Kusum Weiss 02/01/18 14:00> no <Edgar Blackburn - 02/01/18 12:01> Straight Cath placed during this visit: no <Kusum Weiss - 02/01/18 14:00> yes, but has since been removed by the nurse <Edgar Blackburn 02/01/18 12:01> Reason for continuing: Not indwelling catheter <Edgar Blackburn 02/01/18 12:01> Insertion date: 01/26/18 <Edgar Blackburn - 02/01/18 12:01> Insertion time: 17:30 <Edgar Blackburn - 02/01/18 12:01> Removal date: 01/26/18 <Edgar Blackburn - 02/01/18 12:01> Removal time: 17:35 <Edgar Blackburn - 02/01/18 12:01> Assessment and Plan - Assessment (1) Alcohol withdrawal Code(s): F10.239 - Alcohol dependence with withdrawal, unspecified Status: Acute (2) Abdominal pain Code(s): R10.9 - Unspecified abdominal pain Status: Acute (3) Esophageal varices in cirrhosis Code(s): K74.60 - Unspecified cirrhosis of liver; I85.10 - Secondary esophageal varices without bleeding Status: Chronic (4) Hypertension Code(s): I10 - Essential (primary) hypertension Status: Chronic (5) Alcohol abuse Code(s): F10.10 - Alcohol abuse, uncomplicated Status: Chronic (6) Depression with anxiety Code(s): F41.8 - Other specified anxiety disorders Status: Chronic (7) Cough Code(s): R05 - Cough Status: Acute (8) Diabetes Code(s): E11.9 - Type 2 diabetes mellitus without complications Status: Chronic (9) Deep vein thrombosis (DVT) of brachial vein Code(s): I82.629 - Acute embolism and thrombosis of deep veins of unspecified upper extremity Status: Acute (10) Nutrition, metabolism, and development symptoms Code(s): R63.8 - Other symptoms and signs concerning food and fluid intake Status: Acute <Kusum Weiss - 02/01/18 14:00> (1) Alcohol withdrawal Code(s): F10.239 - Alcohol dependence with withdrawal, unspecified Status: Acute Plan: Patient with extensive alcohol abuse history for the past 30 years complicated by cirrhosis and esophageal variceal GI bleed. Currently receiving treatment for alcoholism at [facility] since July of this year. Reports he is taking a medication to help with his alcoholism however he has not been compliant and has been drinking at least 2 beers per day. Presented to the ED with severe abdominal pain, vomiting and nausea. Patient had worsening alcohol withdrawal symptoms and was transferred to critical care on 01/18. Cdl [employer] consulted, appreciate recommendations Patient placed on Precedex drip on 01/18; d/c on 01/27 Patient placed n.p.o., failed bedside swallow eval, will be re-evaluated by speech therapy today. NG tube placed 01/31 with confirmation x-ray Continue to monitor vital signs Continue to monitor ammonia and cmp CT brain: No acute abnormalities Continue vitamin bag daily times 3 days Valproate 500 p.o. daily CIWA protocol discontinued per critical care Lactulose 4 times daily Rifaximin 550 BID (2) Abdominal pain Code(s): R10.9 - Unspecified abdominal pain Status: Acute Plan: Patient is a 52-year-old male with past medical history of alcoholism, cirrhosis and esophageal variceal GI bleed who presented to the ED with complaint of umbilical abdominal pain, nausea, and vomiting for the past 2 days. Patient reports tooth extraction 2 days prior to admission and malaise ( abdominal pain, vomiting x10 times with questionable blood in vomit which he attributes to tooth extraction however due to patient's history of upper GI bleed due to esophageal varices GI was consulted for further evaluation). On admission patient was slightly hypertensive however he was afebrile and no leukocytosis appreciated on CBC. CT abdomen: Showing edema of mesenteric, small metallic object in the transverse colon (which may have been part of patient's dental filling) and cirrhosis with portal hypertension and significant esophageal varices. Zofran for nausea Pain controlled with hydromorphone PRN which patient has had in the past without any adverse reactions; on hold Protonix IV twice daily Cipro for prophylaxis; discontinued 01/22 octreotide drip 25 mcg/h, discontinued GI consulted for further recommendations, -Protonix, prophylactic antibiotic and octreotide drip -H&H stable and abdominal ultrasound negative for ascites -EGD procedure 01/16 showed: Esophageal varices grade 2 status post 4 band applied, biopsies taken from gastric antrum. Repeat EGD in 2 months. -vocal cord mass noted on intubation and ENT was consulted for further evaluation. -non-selective beta deena and follow up outpatient in two weeks. -GI has signed off ENT consulted Normal evaluation of vocal cords with laryngoscope neck CT no abnormal findings, no evidence of laryngeal lesion -will assess as needed (3) Esophageal varices in cirrhosis Code(s): K74.60 - Unspecified cirrhosis of liver; I85.10 - Secondary esophageal varices without bleeding Status: Chronic Plan: See plan above for abdominal pain (4) Hypertension Code(s): I10 - Essential (primary) hypertension Status: Chronic Plan: Resume home medications Clonidine and labetalol 20mg PRN Continue to monitor blood pressure. (5) Alcohol abuse Code(s): F10.10 - Alcohol abuse, uncomplicated Status: Chronic Plan: See alcohol withdrawal plan above (6) Depression with anxiety Code(s): F41.8 - Other specified anxiety disorders Status: Chronic Plan: Resume home medications (7) Cough Code(s): R05 - Cough Status: Acute Plan: Patient with history of chronic cough and wheezing. -GI saw abnormal vocal cords for EGD so consulted Pulmonology and ENT -Pulmonology: recommended aerosol treatment and tessalon 200 mg TID and smoking cessation. Recommended follow up pulmonary function studies once acute illness treated. -ENT: CT neck was negative. No mass visualized with laryngoscopy. Can follow up OP for post nasal drip -Sputum culture: MRSA -vancomycin and zosyn discontinued -Restarted on vancomycin on 01/28 -BCX NG to-date -Chest x-ray: Support equipment in good position. Small areas of atelectasis in both lung bases. (8) Diabetes Code(s): E11.9 - Type 2 diabetes mellitus without complications Status: Chronic Plan: Sliding scale insulin low Accu-Cheks Hypoglycemia protocol (9) Deep vein thrombosis (DVT) of brachial vein Code(s): I82.629 - Acute embolism and thrombosis of deep veins of unspecified upper extremity Status: Acute Plan: 1111 venous Doppler study: DVT of right mid brachial vein Anticoagulation therapy complicated given possible GI bleed -will follow critical care recommendations of Lovenox 40 (10) Nutrition, metabolism, and development symptoms Code(s): R63.8 - Other symptoms and signs concerning food and fluid intake Status: Acute Plan: Electrolytes: Replete as needed Diet: per tube feeds DVT prophylaxis: b/l SCDs, holding lovenox GI ppx: Protonix 40 mg IV bid <Edgar Blackburn - 02/01/18 11:55> - Attending Attestation This patient was seen and examined. The assessment and plan was discussed with the resident physician and I am in agreement with continued medical care as documented in this encounter. KUSUM WEISS MD <Kusum Weiss - 02/01/18 14:00>
[2018-02-01] MEDS: Vancomycin Inj 1,500 MG in Sodium Chlor 0.9% Inj 500 ML IV.SIG SCH (12:40)
--- NOTE | 2018-02-01 15:21 | P.PNPL ---
Subjective Interval history: 52 YO male with GIB, cirrhosis Developed resp distress, agitation Extubated 01/27 Opens eyes, follows simple commands On NC Follows simple commands Physical Exam Vital signs: Vital Signs 01/31/18 15:30 01/31/18 16:00 01/31/18 16:01 Temperature 98.2 F Pulse Rate 97 H 94 H 93 H Respiratory Rate 25 H 21 25 H Blood Pressure 168/72 H 154/74 H Pulse Oximetry 94 L 95 96 01/31/18 16:30 01/31/18 17:00 01/31/18 17:30 Temperature Pulse Rate 95 H 94 H 94 H Respiratory Rate 24 20 24 Blood Pressure 147/79 H 135/75 131/78 Pulse Oximetry 98 97 96 01/31/18 18:00 01/31/18 18:30 01/31/18 19:00 Temperature Pulse Rate 95 H 98 H 99 H Respiratory Rate 22 21 56 H Blood Pressure 137/83 148/84 H Pulse Oximetry 95 97 96 01/31/18 19:01 01/31/18 19:31 01/31/18 20:00 Temperature 97.9 F Pulse Rate 98 H 100 H 99 H Respiratory Rate 50 H 26 H 36 H Blood Pressure 176/93 H 150/78 H Pulse Oximetry 94 L 96 92 L 01/31/18 20:07 01/31/18 20:30 01/31/18 21:00 Temperature Pulse Rate 101 H 109 H 102 H Respiratory Rate 34 H 27 H 26 H Blood Pressure 140/86 140/85 Pulse Oximetry 96 95 92 L 01/31/18 21:01 01/31/18 21:31 01/31/18 22:00 Temperature Pulse Rate 103 H 102 H 103 H Respiratory Rate 37 H 53 H 50 H Blood Pressure 157/91 H 175/85 H 158/89 H Pulse Oximetry 73 L 90 L 92 L 01/31/18 22:23 01/31/18 22:30 01/31/18 23:00 Temperature Pulse Rate 101 H 96 H Respiratory Rate 23 26 H Blood Pressure 158/87 H 158/89 H Pulse Oximetry 98 95 94 L 01/31/18 23:30 02/01/18 00:00 02/01/18 00:30 Temperature 99.1 F Pulse Rate 95 H 96 H 93 H Respiratory Rate 24 37 H 28 H Blood Pressure 159/81 H 160/94 H 160/79 H Pulse Oximetry 90 L 95 93 L 02/01/18 01:00 02/01/18 01:30 02/01/18 02:00 Temperature Pulse Rate 90 92 H 89 Respiratory Rate 27 H 44 H 32 H Blood Pressure 146/76 H 148/83 H 136/81 Pulse Oximetry 97 96 98 02/01/18 02:30 02/01/18 03:00 02/01/18 03:31 Temperature Pulse Rate 89 87 92 H Respiratory Rate 28 H 28 H 34 H Blood Pressure 145/87 H 143/85 H 174/83 H Pulse Oximetry 97 97 84 L 02/01/18 04:00 02/01/18 04:01 02/01/18 08:00 Temperature 98.6 F Pulse Rate 93 H 91 H Respiratory Rate 55 H 51 H Blood Pressure 166/83 H Pulse Oximetry 96 95 97 Intake & Output 01/31/18 02/01/18 02/01/18 18:59 06:59 18:59 Intake Total 1952 / 1952 1821 / 1821 Output Total 1625 / 1625 550 / 550 Balance 327 / 327 1271 / 1271 Weight 99.5 kg Intake: IV 1560 / 1560 1515 / 1515 D5W Inj 1,000 ML @ 84 mls/hr IV 700 / 700 1000 / 1000 .CONT .[id number] [facility] Rx#:[id number] KCl 20 mEq Premix Inj 20 meq In 360 / 360 100 ml @ 50 mls/hr IV.SIG Q2H [facility]N Rx#:[id number] Vancomycin Inj 1,500 MG In NS 500 / 500 515 / 515 Inj 500 ML @ 250 mls/hr IV.SIG Q12H [facility] Rx#:[id number] Tube Feeding 306 / 306 Tube Irrigant 120 / 120 Water Bolus Amount 250 / 250 Output: Urine 1625 / 1625 550 / 550 Other: Date of Last Bowel Movement 01/31/18 01/31/18 01/31/18 # Incontinent Bowel Movements 2 5 GENERAL: WBWN NAD, mild sob SKIN: Warm and dry. HEAD: Normocephalic. EYES: No scleral icterus. No injection or drainage. NECK: Supple, trachea midline. No JVD or lymphadenopathy. CARDIOVASCULAR: Regular rate and rhythm without murmurs, gallops, or rubs. RESPIRATORY: Breath sounds equal bilaterally. No accessory muscle use. GASTROINTESTINAL: Abdomen soft, non-tender, nondistended. MUSCULOSKELETAL: No cyanosis, or edema. BACK: Nontender without obvious deformity. No CVA tenderness. - Urinary Catheter Management Straight Cath placed during this visit: yes, but has since been removed by the nurse Reason for continuing: Not indwelling catheter Insertion date: 01/26/18 Insertion time: 17:30 Removal date: 01/26/18 Removal time: 17:35 400 Cath placed during this visit: no Assessment and Plan - Plan IMPRESSION: 1. Mild shortness of breath and cough, possibly underlying asthma. 2. Hypertension. 3. Diabetes mellitus. 4. Cirrhosis of the liver. 5. VDRF, s/p extubation 01/27 6. Encephalopathy. PLAN: Supplement 02 CPAP prn sob Depakote 500 mg daily Monitor Ammonia level. Oral suction prn. Off Ativan
--- NOTE | 2018-02-01 17:03 | P.PNADD ---
Addendum to Inpatient Note Reason for Addendum: Additional Documentation Additional information: Hospital course: 52-year-old male PMH of alcoholism, cirrhosis and esophageal variceal GI bleed who presented to the ED with complaint of umbilical abdominal pain, nausea, and vomiting. Patient reports tooth extraction 2 days prior to admission and malaise (abdominal pain, vomiting x10 times with questionable blood in vomit which he attributes to tooth extraction however due to patient's history of upper GI bleed due to esophageal varices GI was consulted for further evaluation ). On admission patient was slightly hypertensive however he was afebrile and no leukocytosis appreciated on CBC. CT abdomen: Showing edema of mesenteric, small metallic object in the transverse colon (which may have been part of patient's dental filling) and cirrhosis with portal hypertension and significant esophageal varices. US negative for acities. Patient was started on cipro for prophylaxis (discontinued on 01/22), and octreotide drip. GI was consulted. EGD procedure 01/16 showed: Esophageal varices grade 2 status post 4 band applied, biopsies taken from gastric antrum. They suggested a non- selective beta deena, OP follow up in 2 weeks, and repeat EGD in 2 months. 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 Found to have normal evaluation of vocal cords with laryngoscope and neck CT no abnormal findings and no evidence of laryngeal lesion. Given persistant cough pulmonology consulted recommending aerosol treatments and tessalon 200 TID as well as follow up pulmonary function studies. Sputum cultures MRSA. Patient had worsening alcohol withdrawal symptoms and was transferred to critical care on 01/18. Patient placed on Precedex drip on 01/18; d/c on 01/27. Patient intubated on 01/19. CT brain: No acute abnormalities. Required Fentanyl drip intermittently. Continue vitamin bag daily times 3 days and valproate 500 p.o. daily. Patient extubated 01/27. NG tube placed. CIWA protocol restarted on 01/27. Ammonia level elevated up to 98. Started on Lactulose 4 times daily and rifaximin 550 BID Patient also noted to have DVT of brachial vein right by Doppler study on . Anticoagulation therapy complicated given possible GI bleed, but started on Lovenox 40mg. Procedures: 01/16 EGD, 01/17 Larngoscope, 01/19 Orotracheal intubation, 01/26 Fiberoptic bronchoscopy
[2018-02-01] MEDS: Enoxaparin Inj 40 MG/0.4 ML Syringe SQ SCH (17:22)
[2018-02-02] MEDS: Vancomycin Inj 1,500 MG in Sodium Chlor 0.9% Inj 500 ML IV.SIG SCH ×3 (00:16→23:14)
[2018-02-02] MEDS: Insulin NovoLOG Aspart Correctional Sugar Inj SQ SCH ×5 (01:09→23:15)
[2018-02-02] MEDS: Oral Hygiene Kit OROPHARYNG SCH ×5 (01:09→23:15)
[2018-02-02] MEDS: Benzonatate 100 MG Capsule PO SCH ×3 (03:24→19:53)
[2018-02-02] MEDS: Dextrose 5% in Water Inj 1,000 ML IV.CONT SCH ×3 (03:52→19:53)
[2018-02-02] MEDS: Artificial Tears Opth Drops 15 ML Bottle EACH EYE SCH ×3 (06:02→21:51)
[2018-02-02] MEDS: Chlorhexidine 0.12% Oral Kit 15 ML UDC OROPHARYNG SCH ×2 (10:15→19:53)
[2018-02-02] MEDS: Multivit/Folic Acid/Minerals Chewable Tablets CHEW SCH (10:16)
[2018-02-02] MEDS: Propranolol 40 MG Tablet PO SCH ×2 (10:17→20:01)
[2018-02-02] MEDS: Senna/Docusate Sodium 8.6/50 MG Tablet PO SCH ×2 (10:17→20:01)
[2018-02-02] MEDS: Sodium Chloride 0.9% 2 ML Flush BID IV.FLUSH SCH ×2 (10:17→20:01)
[2018-02-02] MEDS: Pantoprazole Inj 40 MG Vial IV.PUSH SCH ×2 (10:17→20:01)
[2018-02-02] MEDS: amLODIPine 10 MG Tablet PO SCH (10:17)
[2018-02-02] MEDS: rifAXIMin 550 MG Tablet PO SCH ×2 (10:17→20:02)
[2018-02-02] MEDS ORDERED: Aluminum/Magnesium/Simethacone Susp 30 ML UDC PO ONE (11:11)
--- NOTE | 2018-02-02 11:50 | P.PNFP ---
Subjective Interval history: Patient seen and examined at bedside this morning. No acute events overnight. Patient is alert and oriented x2 (self and location) and able to follow commands. Patient is still slightly confused about what happened during his hospital course. Discussed with patient the events that his worsening alcohol withdrawal sxs were the reason that led to him necessitating intubation. Patient reports that he is having chest pain and abdominal pain (acid reflux in quality). No other issues. He would like speak to his girlfriend but does not remember her number and did not know where his wallet was located in the room. <Mele Recinos D - 02/02/18 13:02> Results - Labs Result diagrams: 02/03/18 08:10 02/03/18 08:00 <Ajit Correia R - 02/03/18 11:33> Abnormal lab results 02/02/18 02/02/18 02/02/18 Range/Units 12:15 12:15 12:15 RBC 3.10 L (4.50-5.90) mil/mm3 Hgb 8.3 L (13.0-17.0) gm/dL Hct 24.9 L (39.0-51.0) % MCV (80.0-100.0) fL MCH 26.7 L (27.0-34.0) pg RDW 18.9 H (11.6-17.2) % Plt Count 87 L (150-450) th/mm3 Neut % (Auto) 71.0 H (16.0-70.0) % Lymph % (Auto) (9.0-44.0) % Edwards % (Auto) 14.3 H (0.0-8.0) % Lymph # (Auto) 0.7 L (1.0-4.8) th/mm3 Edwards # (Auto) 1.0 H (0.0-0.9) th/mm3 Platelet Estimate Low L (Normal) Sodium 146 H (136-145) meq/L Potassium 3.4 L (3.5-5.1) meq/L Chloride 110 H (98-107) meq/L BUN (7-18) mg/dL POC Glucose (68-110) mg/dl Random Glucose 180 H (74-106) mg/dL Calcium 7.9 L (8.5-10.1) mg/dL AST 46 H (15-37) U/L Alkaline Phosphatase 183 H (45-117) U/L Ammonia 45 H (11-32) mcmol/L Troponin I (0.02-0.05) ng/mL Total Protein (6.4-8.2) g/dL Albumin 2.4 L (3.4-5.0) g/dL 02/02/18 02/02/18 02/02/18 Range/Units 12:15 17:58 23:10 RBC (4.50-5.90) mil/mm3 Hgb (13.0-17.0) gm/dL Hct (39.0-51.0) % MCV (80.0-100.0) fL MCH (27.0-34.0) pg RDW (11.6-17.2) % Plt Count (150-450) th/mm3 Neut % (Auto) (16.0-70.0) % Lymph % (Auto) (9.0-44.0) % Edwards % (Auto) (0.0-8.0) % Lymph # (Auto) (1.0-4.8) th/mm3 Edwards # (Auto) (0.0-0.9) th/mm3 Platelet Estimate (Normal) Sodium (136-145) meq/L Potassium (3.5-5.1) meq/L Chloride (98-107) meq/L BUN (7-18) mg/dL POC Glucose 151 H 162 H (68-110) mg/dl Random Glucose (74-106) mg/dL Calcium (8.5-10.1) mg/dL AST (15-37) U/L Alkaline Phosphatase (45-117) U/L Ammonia (11-32) mcmol/L Troponin I Less than 0.02 L (0.02-0.05) ng/mL Total Protein (6.4-8.2) g/dL Albumin (3.4-5.0) g/dL 02/03/18 02/03/18 02/03/18 Range/Units 05:39 08:00 08:10 RBC 3.18 L (4.50-5.90) mil/mm3 Hgb 8.3 L (13.0-17.0) gm/dL Hct 25.3 L (39.0-51.0) % MCV 79.6 L (80.0-100.0) fL MCH 26.2 L (27.0-34.0) pg RDW 18.2 H (11.6-17.2) % Plt Count 100 L (150-450) th/mm3 Neut % (Auto) 72.1 H (16.0-70.0) % Lymph % (Auto) 8.3 L (9.0-44.0) % Edwards % (Auto) 15.8 H (0.0-8.0) % Lymph # (Auto) 0.6 L (1.0-4.8) th/mm3 Edwards # (Auto) 1.2 H (0.0-0.9) th/mm3 Platelet Estimate (Normal) Sodium (136-145) meq/L Potassium 3.3 L (3.5-5.1) meq/L Chloride (98-107) meq/L BUN 6 L (7-18) mg/dL POC Glucose 197 H (68-110) mg/dl Random Glucose 193 H (74-106) mg/dL Calcium 7.7 L (8.5-10.1) mg/dL AST 40 H (15-37) U/L Alkaline Phosphatase 170 H (45-117) U/L Ammonia (11-32) mcmol/L Troponin I (0.02-0.05) ng/mL Total Protein 6.3 L (6.4-8.2) g/dL Albumin 2.4 L (3.4-5.0) g/dL 02/03/18 Range/Units 08:20 RBC (4.50-5.90) mil/mm3 Hgb (13.0-17.0) gm/dL Hct (39.0-51.0) % MCV (80.0-100.0) fL MCH (27.0-34.0) pg RDW (11.6-17.2) % Plt Count (150-450) th/mm3 Neut % (Auto) (16.0-70.0) % Lymph % (Auto) (9.0-44.0) % Edwards % (Auto) (0.0-8.0) % Lymph # (Auto) (1.0-4.8) th/mm3 Edwards # (Auto) (0.0-0.9) th/mm3 Platelet Estimate (Normal) Sodium (136-145) meq/L Potassium (3.5-5.1) meq/L Chloride (98-107) meq/L BUN (7-18) mg/dL POC Glucose (68-110) mg/dl Random Glucose (74-106) mg/dL Calcium (8.5-10.1) mg/dL AST (15-37) U/L Alkaline Phosphatase (45-117) U/L Ammonia 33 H (11-32) mcmol/L Troponin I (0.02-0.05) ng/mL Total Protein (6.4-8.2) g/dL Albumin (3.4-5.0) g/dL Short CBC 02/02/18 02/03/18 Range/Units 12:15 08:10 WBC 6.9 7.6 (4.0-11.0) th/mm3 Hgb 8.3 L 8.3 L (13.0-17.0) gm/dL Hct 24.9 L 25.3 L (39.0-51.0) % Plt Count 87 L 100 L (150-450) th/mm3 BMP 02/02/18 02/03/18 12:15 08:00 Sodium 146 H 141 Potassium 3.4 L 3.3 L Chloride 110 H 106 Carbon Dioxide 26.9 29.0 BUN 9 6 L Creatinine 0.83 0.71 Calcium 7.9 L 7.7 L Cardiac Enzymes 02/02/18 Range/Units 12:15 Troponin I Less than 0.02 L (0.02-0.05) ng/mL Liver Function 02/02/18 02/03/18 Range/Units 12:15 08:00 Total Bilirubin 0.9 1.0 (0.2-1.0) mg/dL AST 46 H 40 H (15-37) U/L ALT 25 23 (12-78) U/L Alkaline Phosphatase 183 H 170 H (45-117) U/L Albumin 2.4 L 2.4 L (3.4-5.0) g/dL <Ajit Correia - 02/03/18 11:33> Abnormal lab results 02/02/18 02/02/18 02/02/18 Range/Units 00:07 00:08 05:27 POC Glucose 166 H 157 H 141 H (68-110) mg/dl <Mele Recinos D - 02/02/18 11:50> Physical Exam Vital signs: Vital Signs 02/02/18 12:00 02/02/18 13:00 02/02/18 14:00 Temperature Pulse Rate 90 70 75 Respiratory Rate 29 H 19 15 Blood Pressure 123/76 151/72 H 128/64 Pulse Oximetry 93 L 91 L 02/02/18 14:30 02/02/18 15:00 02/02/18 15:31 Temperature Pulse Rate 75 74 84 Respiratory Rate 12 18 19 Blood Pressure 125/64 113/59 L 127/64 Pulse Oximetry 99 99 100 02/02/18 20:00 02/02/18 20:49 02/03/18 00:00 Temperature 99.5 F 99.1 F Pulse Rate 91 H 93 H Respiratory Rate 20 28 H Blood Pressure 141/76 H 142/71 H Pulse Oximetry 99 98 99 02/03/18 04:00 02/03/18 08:00 02/03/18 08:37 Temperature 100.5 F H 98.3 F Pulse Rate 96 H 85 90 Respiratory Rate 19 18 23 Blood Pressure 154/76 H 143/66 H 118/58 L Pulse Oximetry 99 100 100 02/03/18 09:00 02/03/18 09:30 Temperature Pulse Rate 79 77 Respiratory Rate 23 18 Blood Pressure 122/84 118/58 L Pulse Oximetry 94 L 98 Intake & Output 02/02/18 02/03/18 02/03/18 18:59 06:59 18:59 Intake Total 2097 / 2097 1065 / 1065 Output Total 1475 / 1475 1200 / 1200 Balance 622 / 622 -135 / -135 Weight 99.5 kg Intake: IV 1515 / 1515 515 / 515 D5W Inj 1,000 ML @ 100 mls/hr 1000 / 1000 IV.CONT .Q10H [facility] Rx#:[id number] Vancomycin Inj 1,500 MG In NS 515 / 515 515 / 515 Inj 500 ML @ 250 mls/hr IV.SIG Q12H [facility] Rx#:[id number] Tube Feeding 332 / 332 300 / 300 Water Bolus Amount 250 / 250 250 / 250 Output: Urine 1475 / 1475 1200 / 1200 Other: Date of Last Bowel Movement 02/02/18 02/03/18 02/03/18 # Incontinent Bowel Movements 0 1 <Ajit Correia R - 02/03/18 11:33> Vital Signs 02/01/18 12:00 02/01/18 13:00 02/01/18 14:01 Temperature 98.7 F Pulse Rate 98 H 107 H 101 H Respiratory Rate 33 H 30 H 43 H Blood Pressure 134/73 156/84 H 156/75 H Pulse Oximetry 100 97 97 02/01/18 15:01 02/01/18 16:00 02/01/18 17:00 Temperature 98.5 F Pulse Rate 101 H 102 H 101 H Respiratory Rate 33 H 25 H 29 H Blood Pressure 136/73 129/73 125/65 Pulse Oximetry 96 97 96 02/01/18 20:00 02/01/18 23:48 02/02/18 00:00 Temperature 98.6 F 98.7 F Pulse Rate 101 H 86 Respiratory Rate 22 20 Blood Pressure 143/70 H 133/66 Pulse Oximetry 100 96 98 02/02/18 04:00 Temperature Pulse Rate 79 Respiratory Rate 24 Blood Pressure 124/62 Pulse Oximetry 100 Intake & Output 02/01/18 02/02/18 02/02/18 18:59 06:59 18:59 Intake Total 1515 / 1515 2065 / 2065 Output Total 925 / 925 600 / 600 Balance 590 / 590 1465 / 1465 Weight 102 kg Intake: IV 1515 / 1515 1515 / 1515 D5W Inj 1,000 ML @ 100 mls/hr 1000 / 1000 1000 / 1000 IV.CONT .Q10H [facility] Rx#:[id number] Vancomycin Inj 1,500 MG In NS 515 / 515 515 / 515 Inj 500 ML @ 250 mls/hr IV.SIG Q12H [facility] Rx#:[id number] Tube Feeding 300 / 300 Water Bolus Amount 250 / 250 Output: Urine 600 / 600 Urine Amount (Catheter) 925 / 925 Condom 925 / 925 Other: Date of Last Bowel Movement 02/01/18 01/31/18 # Incontinent Bowel Movements 0 <Mele Recinos D - 02/02/18 11:50> Narrative: GENERAL: NAD, in restraints of upper ext, able to follow commands SKIN: Warm and dry. No petechia or rash HEAD: Atraumatic. Normocephalic. ENT: No nasal bleeding or discharge. NECK: Trachea midline. No JVD. CARDIOVASCULAR: Regular rate and rhythm. No murmur RESPIRATORY: B/l equal air entry. Coarse breath sound appreciated anteriorly. GASTROINTESTINAL: Abdomen soft, mild tenderness to palpation at RLQ, slightly distended. MUSCULOSKELETAL: Extremities without clubbing, cyanosis, or edema. No obvious deformities. +2 PD pulses BL. NEUROLOGICAL: no focal neurological deficits noted on exam. AAOx3, able to follow command and hold conversation. <CalzadoPhoenixMele D - 02/02/18 13:02> - Urinary Catheter Management 400 Cath placed during this visit: no <OslosAjit R - 02/03/18 11:33> no <Calzado,Mele D - 02/02/18 13:02> Condom Cath placed during this visit: no <OslosAjit R - 02/03/18 11:33> no <Calzado,Mele D - 02/02/18 13:02> Straight Cath placed during this visit: no <OsshanikasAjit R - 02/03/18 11:33> yes, but has since been removed by the nurse <CalzadoMele D - 02/02/18 13:02> Reason for continuing: Not indwelling catheter <CalzadoMele D - 02/02/18 11: 50> Insertion date: 01/26/18 <Calzado,Mele D - 02/02/18 11:50> Insertion time: 17:30 <Calzado,Mele D - 02/02/18 11:50> Removal date: 01/26/18 <Calzado,Mele D - 02/02/18 11:50> Removal time: 17:35 <Calzado,Mele D - 02/02/18 11:50> Assessment and Plan - Assessment (1) Alcohol withdrawal Code(s): F10.239 - Alcohol dependence with withdrawal, unspecified Status: Acute (2) Abdominal pain Code(s): R10.9 - Unspecified abdominal pain Status: Acute (3) Esophageal varices in cirrhosis Code(s): K74.60 - Unspecified cirrhosis of liver; I85.10 - Secondary esophageal varices without bleeding Status: Chronic (4) Hypertension Code(s): I10 - Essential (primary) hypertension Status: Chronic (5) Alcohol abuse Code(s): F10.10 - Alcohol abuse, uncomplicated Status: Chronic (6) Depression with anxiety Code(s): F41.8 - Other specified anxiety disorders Status: Chronic (7) Cough Code(s): R05 - Cough Status: Resolved (8) Diabetes Code(s): E11.9 - Type 2 diabetes mellitus without complications Status: Chronic (9) Deep vein thrombosis (DVT) of brachial vein Code(s): I82.629 - Acute embolism and thrombosis of deep veins of unspecified upper extremity Status: Acute (10) Chest pain Code(s): R07.9 - Chest pain, unspecified Status: Acute (11) Nutrition, metabolism, and development symptoms Code(s): R63.8 - Other symptoms and signs concerning food and fluid intake Status: Acute <Ajit Correia R - 02/03/18 11:33> (1) Alcohol withdrawal Code(s): F10.239 - Alcohol dependence with withdrawal, unspecified Status: Acute Plan: Patient with extensive alcohol abuse history for the past 30 years complicated by cirrhosis and esophageal variceal GI bleed. Currently receiving treatment for alcoholism at [facility] since July of this year. Reports he is taking a medication to help with his alcoholism however he has not been compliant and has been drinking at least 2 beers per day. Presented to the ED with severe abdominal pain, vomiting and nausea. Patient had worsening alcohol withdrawal symptoms and was transferred to critical care on 01/18. Commercial Project Manager consulted, appreciate recommendations Patient placed on Precedex drip on 01/18; d/c on 01/27 Failed speech swallow eval, NG tube placed 01/31 with confirmation x-ray. May need speech therapy reevaluation now that he is more awake. Continue to monitor vital signs Continue to monitor ammonia and cmp CT brain: No acute abnormalities Continue vitamin bag daily times 3 days Valproate 500 p.o. daily CIWA protocol discontinued per critical care Lactulose 4 times daily Rifaximin 550 BID (2) Abdominal pain Code(s): R10.9 - Unspecified abdominal pain Status: Acute Plan: Patient is a 52-year-old male with past medical history of alcoholism, cirrhosis and esophageal variceal GI bleed who presented to the ED with complaint of umbilical abdominal pain, nausea, and vomiting for the past 2 days. Patient reports tooth extraction 2 days prior to admission and malaise ( abdominal pain, vomiting x10 times with questionable blood in vomit which he attributes to tooth extraction however due to patient's history of upper GI bleed due to esophageal varices GI was consulted for further evaluation). On admission patient was slightly hypertensive however he was afebrile and no leukocytosis appreciated on CBC. CT abdomen: Showing edema of mesenteric, small metallic object in the transverse colon (which may have been part of patient's dental filling) and cirrhosis with portal hypertension and significant esophageal varices. Zofran for nausea Pain controlled with hydromorphone PRN which patient has had in the past without any adverse reactions; on hold Protonix IV twice daily Cipro for prophylaxis; discontinued 01/22 octreotide drip 25 mcg/h, discontinued GI consulted for further recommendations, -Protonix, prophylactic antibiotic and octreotide drip -H&H stable and abdominal ultrasound negative for ascites -EGD procedure 01/16 showed: Esophageal varices grade 2 status post 4 band applied, biopsies taken from gastric antrum. Repeat EGD in 2 months. -vocal cord mass noted on intubation and ENT was consulted for further evaluation. -non-selective beta deena and follow up outpatient in two weeks. -GI has signed off ENT consulted Normal evaluation of vocal cords with laryngoscope neck CT no abnormal findings, no evidence of laryngeal lesion -will assess as needed Patient with complaint of acid reflux quality abdominal pain this morning. Continue with Protonix IV twice daily and patient given Mylanta x1. (3) Esophageal varices in cirrhosis Code(s): K74.60 - Unspecified cirrhosis of liver; I85.10 - Secondary esophageal varices without bleeding Status: Chronic Plan: See plan above for abdominal pain (4) Hypertension Code(s): I10 - Essential (primary) hypertension Status: Chronic Plan: amlodipine 10 mg QD Clonidine and labetalol 20mg PRN Continue to monitor blood pressure. (5) Alcohol abuse Code(s): F10.10 - Alcohol abuse, uncomplicated Status: Chronic Plan: See alcohol withdrawal plan above (6) Depression with anxiety Code(s): F41.8 - Other specified anxiety disorders Status: Chronic Plan: Resume home medications (7) Cough Code(s): R05 - Cough Status: Resolved Plan: Patient with history of chronic cough and wheezing. -GI saw abnormal vocal cords for EGD so consulted Pulmonology and ENT -Pulmonology: recommended aerosol treatment and tessalon 200 mg TID and smoking cessation. Recommended follow up pulmonary function studies once acute illness treated. -ENT: CT neck was negative. No mass visualized with laryngoscopy. Can follow up OP for post nasal drip -Sputum culture: MRSA -vancomycin and zosyn discontinued -Restarted on vancomycin on 01/28 -BCX NG to-date -Chest x-ray: Support equipment in good position. Small areas of atelectasis in both lung bases. (8) Diabetes Code(s): E11.9 - Type 2 diabetes mellitus without complications Status: Chronic Plan: Sliding scale insulin low Accu-Cheks Hypoglycemia protocol (9) Deep vein thrombosis (DVT) of brachial vein Code(s): I82.629 - Acute embolism and thrombosis of deep veins of unspecified upper extremity Status: Acute Plan: 1111 venous Doppler study: DVT of right mid brachial vein Anticoagulation therapy complicated given possible GI bleed -will follow critical care recommendations of Lovenox 40 (10) Chest pain Code(s): R07.9 - Chest pain, unspecified Status: Acute Plan: Patient with complaint of chest pain this morning, likely acid reflux related Troponin negative x1 EKG showing normal sinus rhythm (11) Nutrition, metabolism, and development symptoms Code(s): R63.8 - Other symptoms and signs concerning food and fluid intake Status: Acute Plan: Electrolytes: Replete as needed Diet: per tube feeds DVT prophylaxis: b/l SCDs, lovenox 40mg SQ daily GI ppx: Protonix 40 mg IV bid <Mele Recinos - 02/02/18 12:46> - Attending Attestation This patient was seen and evaluated with the resident physician. I agree with the plan of care as discussed with me and documented in the resident note. Ajit Correia MD <Ajit Correia - 02/03/18 11:33>
[2018-02-02 12:30] LABS: Baso # (Auto) 0.1 th/mm3 (0.0-0.2); Baso % (Auto) 0.9 % (0.0-2.0); Eos # (Auto) 0.3 th/mm3 (0.0-0.4); Eos % (Auto) 3.7 % (0.0-4.0); Hematocrit 24.9 % (39.0-51.0); Hemoglobin 8.3 gm/dL (13.0-17.0); Lymph # (Auto) 0.7 th/mm3 (1.0-4.8); Lymph % (Auto) 10.1 % (9.0-44.0); Mean Corpuscular HGB Conc 33.3 % (32.0-36.0); Mean Corpuscular Hemoglobin 26.7 pg (27.0-34.0); Mean Corpuscular Volume 80.2 fL (80.0-100.0); Mono % (Auto) 14.3 % (0.0-8.0); Neut # (Auto) 4.9 th/mm3 (1.8-7.7); Platelet Count 87 th/mm3 (150-450); Red Cell Distribution Width 18.9 % (11.6-17.2); White Blood Count 6.9 th/mm3 (4.0-11.0)
[2018-02-02 12:42] LABS: Albumin 2.4 g/dL (3.4-5.0); Anion Gap 9 meq/L (5-15); Aspartate Aminotransferase 46 U/L (15-37); Blood Urea Nitrogen 9 mg/dL (7-18); Calcium 7.9 mg/dL (8.5-10.1); Carbon Dioxide 26.9 meq/L (21.0-32.0); Chloride 110 meq/L (98-107); Glomerular Filtration Rate Greater Than 89 mL/min (>89); Glucose,Random 180 mg/dL (74-106); Magnesium 1.7 mg/dL (1.5-2.5); Potassium 3.4 meq/L (3.5-5.1); Sodium 146 meq/L (136-145)
[2018-02-02 12:43] LABS: Alanine Aminotransferase 25 U/L (12-78)
[2018-02-02 12:45] LABS: Alkaline Phosphatase 183 U/L (45-117); Total Protein 6.5 g/dL (6.4-8.2)
[2018-02-02 13:06] LABS: Platelet Morphology Normal (Normal)
--- NOTE | 2018-02-02 14:01 | ECG ---
Date Performed: 02/02/2018 Time Performed: 11:49:29 PTAGE: 52 years EKG: Sinus rhythm NORMAL ECG Since the PREVIOUS TRACING , no significant change noted PREVIOUS TRACIN01/17/2018 18.02 DOCTOR: Memo Reyes Interpretating Date/Time 02/02/2018 13:58:41
--- NOTE | 2018-02-02 16:39 | P.PNPL ---
Subjective Interval history: 52 YO male with GIB, cirrhosis Developed resp distress, agitation Extubated 01/27 Alert, awake, follows commands On Lactulose, has BM Physical Exam Vital signs: Vital Signs 02/01/18 17:00 02/01/18 20:00 02/01/18 23:48 Temperature 98.6 F Pulse Rate 101 H 101 H Respiratory Rate 29 H 22 Blood Pressure 125/65 143/70 H Pulse Oximetry 96 100 96 02/02/18 00:00 02/02/18 04:00 02/02/18 05:01 Temperature 98.7 F Pulse Rate 86 79 82 Respiratory Rate 20 24 1 L Blood Pressure 133/66 124/62 107/55 L Pulse Oximetry 98 100 99 02/02/18 06:01 02/02/18 07:01 02/02/18 08:00 Temperature Pulse Rate 87 85 84 Respiratory Rate 20 26 H 24 Blood Pressure 125/60 111/63 123/67 Pulse Oximetry 98 99 97 02/02/18 08:01 02/02/18 09:00 02/02/18 10:00 Temperature Pulse Rate 84 86 82 Respiratory Rate 19 16 10 L Blood Pressure 137/71 116/66 Pulse Oximetry 99 99 99 02/02/18 10:30 02/02/18 11:01 02/02/18 12:00 Temperature Pulse Rate 85 78 90 Respiratory Rate 31 H 18 29 H Blood Pressure 171/82 H 123/67 123/76 Pulse Oximetry 90 L 100 02/02/18 13:00 02/02/18 14:00 02/02/18 14:30 Temperature Pulse Rate 70 75 75 Respiratory Rate 19 15 12 Blood Pressure 151/72 H 128/64 125/64 Pulse Oximetry 93 L 91 L 99 02/02/18 15:00 02/02/18 15:31 Temperature Pulse Rate 74 84 Respiratory Rate 18 19 Blood Pressure 113/59 L 127/64 Pulse Oximetry 99 100 Intake & Output 02/01/18 02/02/18 02/02/18 18:59 06:59 18:59 Intake Total 1515 / 1515 2065 / 2065 Output Total 925 / 925 600 / 600 Balance 590 / 590 1465 / 1465 Weight 102 kg Intake: IV 1515 / 1515 1515 / 1515 D5W Inj 1,000 ML @ 100 mls/hr 1000 / 1000 1000 / 1000 IV.CONT .Q10H [facility] Rx#:[id number] Vancomycin Inj 1,500 MG In NS 515 / 515 515 / 515 Inj 500 ML @ 250 mls/hr IV.SIG Q12H [facility] Rx#:[id number] Tube Feeding 300 / 300 Water Bolus Amount 250 / 250 Output: Urine 600 / 600 Urine Amount (Catheter) 925 / 925 Condom 925 / 925 Other: Date of Last Bowel Movement 02/01/18 01/31/18 02/02/18 # Incontinent Bowel Movements 0 GENERAL: WBWN, NAD SKIN: Warm and dry. HEAD: Normocephalic. EYES: No scleral icterus. No injection or drainage. NECK: Supple, trachea midline. No JVD or lymphadenopathy. CARDIOVASCULAR: Regular rate and rhythm without murmurs, gallops, or rubs. RESPIRATORY: Breath sounds equal bilaterally. No accessory muscle use. GASTROINTESTINAL: Abdomen soft, non-tender, nondistended. MUSCULOSKELETAL: No cyanosis, or edema. BACK: Nontender without obvious deformity. No CVA tenderness. - Urinary Catheter Management Straight Cath placed during this visit: yes, but has since been removed by the nurse Reason for continuing: Not indwelling catheter Insertion date: 01/26/18 Insertion time: 17:30 Removal date: 01/26/18 Removal time: 17:35 Condom Cath placed during this visit: no 400 Cath placed during this visit: no Assessment and Plan - Plan IMPRESSION: 1. Mild shortness of breath and cough, possibly underlying asthma. 2. Hypertension. 3. Diabetes mellitus. 4. Cirrhosis of the liver. 5. VDRF, s/p extubation 01/27 6. Encephalopathy. PLAN: Supplement 02 CPAP prn sob Depakote 500 mg daily Monitor Ammonia level. Oral suction prn. Cont Lactulose monitor Ammonia level.
[2018-02-02] MEDS: Enoxaparin Inj 40 MG/0.4 ML Syringe SQ SCH (16:53)
[2018-02-03] MEDS: Benzonatate 100 MG Capsule PO SCH ×2 (04:46→12:00)
[2018-02-03] MEDS: Dextrose 5% in Water Inj 1,000 ML IV.CONT SCH ×2 (04:46→16:00)
[2018-02-03] MEDS: Oral Hygiene Kit OROPHARYNG SCH ×3 (04:46→17:39)
[2018-02-03] MEDS: Artificial Tears Opth Drops 15 ML Bottle EACH EYE SCH ×3 (06:20→21:00)
[2018-02-03] MEDS: Insulin NovoLOG Aspart Correctional Sugar Inj SQ SCH ×3 (06:20→17:55)
[2018-02-03] MEDS: rifAXIMin 550 MG Tablet PO SCH ×2 (08:20→21:00)
[2018-02-03] MEDS: Multivit/Folic Acid/Minerals Chewable Tablets CHEW SCH (08:20)
[2018-02-03] MEDS: Propranolol 40 MG Tablet PO SCH ×2 (08:20→21:00)
[2018-02-03] MEDS: Chlorhexidine 0.12% Oral Kit 15 ML UDC OROPHARYNG SCH (08:20)
[2018-02-03] MEDS: amLODIPine 10 MG Tablet PO SCH (08:20)
[2018-02-03] MEDS: Pantoprazole Inj 40 MG Vial IV.PUSH SCH ×2 (08:21→21:00)
[2018-02-03] MEDS: Sodium Chloride 0.9% 2 ML Flush BID IV.FLUSH SCH ×2 (08:22→21:00)
[2018-02-03] MEDS: Senna/Docusate Sodium 8.6/50 MG Tablet PO SCH ×2 (08:22→21:00)
[2018-02-03 08:25] LABS: Baso % (Auto) 0.7 % (0.0-2.0); Eos # (Auto) 0.2 th/mm3 (0.0-0.4); Eos % (Auto) 3.1 % (0.0-4.0); Hematocrit 25.3 % (39.0-51.0); Hemoglobin 8.3 gm/dL (13.0-17.0); Lymph # (Auto) 0.6 th/mm3 (1.0-4.8); Lymph % (Auto) 8.3 % (9.0-44.0); Mean Corpuscular Hemoglobin 26.2 pg (27.0-34.0); Mean Corpuscular Volume 79.6 fL (80.0-100.0); Mono # (Auto) 1.2 th/mm3 (0.0-0.9); Mono % (Auto) 15.8 % (0.0-8.0); Neut # (Auto) 5.5 th/mm3 (1.8-7.7); Neut % (Auto) 72.1 % (16.0-70.0); Platelet Count 100 th/mm3 (150-450); Red Blood Count 3.18 mil/mm3 (4.50-5.90); Red Cell Distribution Width 18.2 % (11.6-17.2); White Blood Count 7.6 th/mm3 (4.0-11.0)
[2018-02-03 08:50] LABS: Albumin 2.4 g/dL (3.4-5.0); Anion Gap 6 meq/L (5-15); Aspartate Aminotransferase 40 U/L (15-37); Blood Urea Nitrogen 6 mg/dL (7-18); Calcium 7.7 mg/dL (8.5-10.1); Chloride 106 meq/L (98-107); Glucose,Random 193 mg/dL (74-106); Magnesium 1.6 mg/dL (1.5-2.5); Potassium 3.3 meq/L (3.5-5.1); Sodium 141 meq/L (136-145)
[2018-02-03 08:53] LABS: Alanine Aminotransferase 23 U/L (12-78); Alkaline Phosphatase 170 U/L (45-117); Glomerular Filtration Rate Greater Than 89 mL/min (>89); Total Protein 6.3 g/dL (6.4-8.2)
--- NOTE | 2018-02-03 11:01 | P.PNFP ---
Subjective Interval history: Patient examined this morning with Dr. Campbell. There were no acute events overnight. He is oriented x2 (to person and place). He denies fever, chills, headache, nausea, vomiting, chest pain, palpitations , shortness of breath, abdominal pain, changes in bowel habits. He does report feeling anxious and continues to have confusion about his hospital course. <Sin Victoria - 02/03/18 11:22> Results - Labs Result diagrams: 02/04/18 06:20 02/04/18 06:20 <Ajit Correia - 02/04/18 10:13> Abnormal lab results 02/03/18 02/03/18 02/03/18 Range/Units 14:00 17:09 23:50 RBC (4.50-5.90) mil/mm3 Hgb (13.0-17.0) gm/dL Hct (39.0-51.0) % MCV (80.0-100.0) fL MCH (27.0-34.0) pg RDW (11.6-17.2) % Plt Count (150-450) th/mm3 [place] % (Auto) (0.0-8.0) % Lymph # (Auto) (1.0-4.8) th/mm3 [place] # (Auto) (0.0-0.9) th/mm3 Platelet Estimate (Normal) Platelet Morphology (Normal) Potassium (3.5-5.1) meq/L POC Glucose 189 H 178 H 218 H (68-110) mg/dl Random Glucose (74-106) mg/dL Calcium (8.5-10.1) mg/dL AST (15-37) U/L Alkaline Phosphatase (45-117) U/L Ammonia (11-32) mcmol/L Total Protein (6.4-8.2) g/dL Albumin (3.4-5.0) g/dL 02/04/18 02/04/18 02/04/18 Range/Units 05:04 06:20 06:20 RBC 2.64 L (4.50-5.90) mil/mm3 Hgb 6.9 L* (13.0-17.0) gm/dL Hct 20.7 L* (39.0-51.0) % MCV 78.4 L (80.0-100.0) fL MCH 26.2 L (27.0-34.0) pg RDW 18.8 H (11.6-17.2) % Plt Count 78 L (150-450) th/mm3 [place] % (Auto) 21.7 H (0.0-8.0) % Lymph # (Auto) 0.7 L (1.0-4.8) th/mm3 [place] # (Auto) 1.0 H (0.0-0.9) th/mm3 Platelet Estimate Low L (Normal) Platelet Morphology Enlarged H (Normal) Potassium 3.1 L (3.5-5.1) meq/L POC Glucose 120 H (68-110) mg/dl Random Glucose 107 H (74-106) mg/dL Calcium 7.9 L (8.5-10.1) mg/dL AST 40 H (15-37) U/L Alkaline Phosphatase 161 H (45-117) U/L Ammonia (11-32) mcmol/L Total Protein 5.9 L (6.4-8.2) g/dL Albumin 2.2 L (3.4-5.0) g/dL 02/04/18 Range/Units 06:20 RBC (4.50-5.90) mil/mm3 Hgb (13.0-17.0) gm/dL Hct (39.0-51.0) % MCV (80.0-100.0) fL MCH (27.0-34.0) pg RDW (11.6-17.2) % Plt Count (150-450) th/mm3 [place] % (Auto) (0.0-8.0) % Lymph # (Auto) (1.0-4.8) th/mm3 [place] # (Auto) (0.0-0.9) th/mm3 Platelet Estimate (Normal) Platelet Morphology (Normal) Potassium (3.5-5.1) meq/L POC Glucose (68-110) mg/dl Random Glucose (74-106) mg/dL Calcium (8.5-10.1) mg/dL AST (15-37) U/L Alkaline Phosphatase (45-117) U/L Ammonia 39 H (11-32) mcmol/L Total Protein (6.4-8.2) g/dL Albumin (3.4-5.0) g/dL Short CBC 02/04/18 Range/Units 06:20 WBC 4.8 (4.0-11.0) th/mm3 Hgb 6.9 L* (13.0-17.0) gm/dL Hct 20.7 L* (39.0-51.0) % Plt Count 78 L (150-450) th/mm3 BMP 02/04/18 06:20 Sodium 142 Potassium 3.1 L Chloride 106 Carbon Dioxide 30.3 BUN 7 Creatinine 0.74 Calcium 7.9 L Liver Function 02/04/18 Range/Units 06:20 Total Bilirubin 1.0 (0.2-1.0) mg/dL AST 40 H (15-37) U/L ALT 22 (12-78) U/L Alkaline Phosphatase 161 H (45-117) U/L Albumin 2.2 L (3.4-5.0) g/dL <Ajit Correia R - 02/04/18 10:13> Abnormal lab results 02/02/18 02/02/18 02/02/18 Range/Units 12:15 12:15 12:15 RBC 3.10 L (4.50-5.90) mil/mm3 Hgb 8.3 L (13.0-17.0) gm/dL Hct 24.9 L (39.0-51.0) % MCV (80.0-100.0) fL MCH 26.7 L (27.0-34.0) pg RDW 18.9 H (11.6-17.2) % Plt Count 87 L (150-450) th/mm3 Neut % (Auto) 71.0 H (16.0-70.0) % Lymph % (Auto) (9.0-44.0) % [place] % (Auto) 14.3 H (0.0-8.0) % Lymph # (Auto) 0.7 L (1.0-4.8) th/mm3 [place] # (Auto) 1.0 H (0.0-0.9) th/mm3 Platelet Estimate Low L (Normal) Sodium 146 H (136-145) meq/L Potassium 3.4 L (3.5-5.1) meq/L Chloride 110 H (98-107) meq/L BUN (7-18) mg/dL POC Glucose (68-110) mg/dl Random Glucose 180 H (74-106) mg/dL Calcium 7.9 L (8.5-10.1) mg/dL AST 46 H (15-37) U/L Alkaline Phosphatase 183 H (45-117) U/L Ammonia 45 H (11-32) mcmol/L Troponin I (0.02-0.05) ng/mL Total Protein (6.4-8.2) g/dL Albumin 2.4 L (3.4-5.0) g/dL 02/02/18 02/02/18 02/02/18 Range/Units 12:15 17:58 23:10 RBC (4.50-5.90) mil/mm3 Hgb (13.0-17.0) gm/dL Hct (39.0-51.0) % MCV (80.0-100.0) fL MCH (27.0-34.0) pg RDW (11.6-17.2) % Plt Count (150-450) th/mm3 Neut % (Auto) (16.0-70.0) % Lymph % (Auto) (9.0-44.0) % [place] % (Auto) (0.0-8.0) % Lymph # (Auto) (1.0-4.8) th/mm3 [place] # (Auto) (0.0-0.9) th/mm3 Platelet Estimate (Normal) Sodium (136-145) meq/L Potassium (3.5-5.1) meq/L Chloride (98-107) meq/L BUN (7-18) mg/dL POC Glucose 151 H 162 H (68-110) mg/dl Random Glucose (74-106) mg/dL Calcium (8.5-10.1) mg/dL AST (15-37) U/L Alkaline Phosphatase (45-117) U/L Ammonia (11-32) mcmol/L Troponin I Less than 0.02 L (0.02-0.05) ng/mL Total Protein (6.4-8.2) g/dL Albumin (3.4-5.0) g/dL 02/03/18 02/03/18 02/03/18 Range/Units 05:39 08:00 08:10 RBC 3.18 L (4.50-5.90) mil/mm3 Hgb 8.3 L (13.0-17.0) gm/dL Hct 25.3 L (39.0-51.0) % MCV 79.6 L (80.0-100.0) fL MCH 26.2 L (27.0-34.0) pg RDW 18.2 H (11.6-17.2) % Plt Count 100 L (150-450) th/mm3 Neut % (Auto) 72.1 H (16.0-70.0) % Lymph % (Auto) 8.3 L (9.0-44.0) % [place] % (Auto) 15.8 H (0.0-8.0) % Lymph # (Auto) 0.6 L (1.0-4.8) th/mm3 [place] # (Auto) 1.2 H (0.0-0.9) th/mm3 Platelet Estimate (Normal) Sodium (136-145) meq/L Potassium 3.3 L (3.5-5.1) meq/L Chloride (98-107) meq/L BUN 6 L (7-18) mg/dL POC Glucose 197 H (68-110) mg/dl Random Glucose 193 H (74-106) mg/dL Calcium 7.7 L (8.5-10.1) mg/dL AST 40 H (15-37) U/L Alkaline Phosphatase 170 H (45-117) U/L Ammonia (11-32) mcmol/L Troponin I (0.02-0.05) ng/mL Total Protein 6.3 L (6.4-8.2) g/dL Albumin 2.4 L (3.4-5.0) g/dL 02/03/18 Range/Units 08:20 RBC (4.50-5.90) mil/mm3 Hgb (13.0-17.0) gm/dL Hct (39.0-51.0) % MCV (80.0-100.0) fL MCH (27.0-34.0) pg RDW (11.6-17.2) % Plt Count (150-450) th/mm3 Neut % (Auto) (16.0-70.0) % Lymph % (Auto) (9.0-44.0) % [place] % (Auto) (0.0-8.0) % Lymph # (Auto) (1.0-4.8) th/mm3 [place] # (Auto) (0.0-0.9) th/mm3 Platelet Estimate (Normal) Sodium (136-145) meq/L Potassium (3.5-5.1) meq/L Chloride (98-107) meq/L BUN (7-18) mg/dL POC Glucose (68-110) mg/dl Random Glucose (74-106) mg/dL Calcium (8.5-10.1) mg/dL AST (15-37) U/L Alkaline Phosphatase (45-117) U/L Ammonia 33 H (11-32) mcmol/L Troponin I (0.02-0.05) ng/mL Total Protein (6.4-8.2) g/dL Albumin (3.4-5.0) g/dL Short CBC 02/02/18 02/03/18 Range/Units 12:15 08:10 WBC 6.9 7.6 (4.0-11.0) th/mm3 Hgb 8.3 L 8.3 L (13.0-17.0) gm/dL Hct 24.9 L 25.3 L (39.0-51.0) % Plt Count 87 L 100 L (150-450) th/mm3 BMP 02/02/18 02/03/18 12:15 08:00 Sodium 146 H 141 Potassium 3.4 L 3.3 L Chloride 110 H 106 Carbon Dioxide 26.9 29.0 BUN 9 6 L Creatinine 0.83 0.71 Calcium 7.9 L 7.7 L Cardiac Enzymes 02/02/18 Range/Units 12:15 Troponin I Less than 0.02 L (0.02-0.05) ng/mL Liver Function 02/02/18 02/03/18 Range/Units 12:15 08:00 Total Bilirubin 0.9 1.0 (0.2-1.0) mg/dL AST 46 H 40 H (15-37) U/L ALT 25 23 (12-78) U/L Alkaline Phosphatase 183 H 170 H (45-117) U/L Albumin 2.4 L 2.4 L (3.4-5.0) g/dL <Sin Victoria - 02/03/18 11:01> Physical Exam Vital signs: Vital Signs 02/03/18 10:13 02/03/18 10:30 02/03/18 11:00 Temperature Pulse Rate 78 76 80 Respiratory Rate 20 24 21 Blood Pressure 117/59 L 118/79 Pulse Oximetry 99 97 99 02/03/18 11:06 02/03/18 12:00 02/03/18 13:00 Temperature Pulse Rate 83 84 86 Respiratory Rate 16 21 24 Blood Pressure 115/64 Pulse Oximetry 99 100 100 02/03/18 14:00 02/03/18 16:00 02/03/18 20:00 Temperature 98.9 F 99.6 F Pulse Rate 82 80 90 Respiratory Rate 24 20 19 Blood Pressure 118/70 111/73 Pulse Oximetry 99 96 99 02/03/18 21:00 02/04/18 00:00 02/04/18 04:00 Temperature 99.5 F 99.6 F Pulse Rate 95 H 84 91 H Respiratory Rate 18 18 Blood Pressure 85/53 L 103/58 L Pulse Oximetry 96 92 L 02/04/18 04:31 02/04/18 08:00 Temperature Pulse Rate 111 H 82 Respiratory Rate 18 Blood Pressure 111/72 Pulse Oximetry 98 Intake & Output 02/03/18 02/04/18 02/04/18 18:59 06:59 18:59 Intake Total 700 / 700 0 / 0 Output Total 750 / 750 2400 / 2400 Balance -50 / -50 -2400 / -2400 Weight 102 kg Intake: IV 700 / 700 D5W Inj 1,000 ML @ 100 mls/hr 700 / 700 IV.CONT .Q10H [facility] Rx#:[id number] Oral 0 / 0 Tube Feeding 0 / 0 Tube Irrigant 0 / 0 Water Bolus Amount 0 / 0 Output: Urine 1200 / 1200 Stool 0 / 0 Urine/Stool Mix 0 / 0 Urine Amount (Catheter) 750 / 750 1200 / 1200 Condom 750 / 750 1200 / 1200 Straight 0 / 0 Other: # Voids 3 # Incontinent Voids 0 Date of Last Bowel Movement 02/03/18 02/04/18 # Bowel Movements 0 # Incontinent Bowel Movements 1 <Ajit Correia R - 02/04/18 10:13> Vital Signs 02/02/18 11:01 02/02/18 12:00 02/02/18 13:00 Temperature Pulse Rate 78 90 70 Respiratory Rate 18 29 H 19 Blood Pressure 123/67 123/76 151/72 H Pulse Oximetry 100 93 L 02/02/18 14:00 02/02/18 14:30 02/02/18 15:00 Temperature Pulse Rate 75 75 74 Respiratory Rate 15 12 18 Blood Pressure 128/64 125/64 113/59 L Pulse Oximetry 91 L 99 99 02/02/18 15:31 02/02/18 20:00 02/02/18 20:49 Temperature 99.5 F Pulse Rate 84 91 H Respiratory Rate 19 20 Blood Pressure 127/64 141/76 H Pulse Oximetry 100 99 98 02/03/18 00:00 02/03/18 04:00 02/03/18 08:00 Temperature 99.1 F 100.5 F H 98.3 F Pulse Rate 93 H 96 H 85 Respiratory Rate 28 H 19 18 Blood Pressure 142/71 H 154/76 H 143/66 H Pulse Oximetry 99 99 100 02/03/18 08:37 02/03/18 09:00 02/03/18 09:30 Temperature Pulse Rate 90 79 77 Respiratory Rate 23 23 18 Blood Pressure 118/58 L 122/84 118/58 L Pulse Oximetry 100 94 L 98 Intake & Output 02/02/18 02/03/18 02/03/18 18:59 06:59 18:59 Intake Total 2097 / 2097 1065 / 1065 Output Total 1475 / 1475 1200 / 1200 Balance 622 / 622 -135 / -135 Weight 99.5 kg Intake: IV 1515 / 1515 515 / 515 D5W Inj 1,000 ML @ 100 mls/hr 1000 / 1000 IV.CONT .Q10H [facility] Rx#:[id number] Vancomycin Inj 1,500 MG In NS 515 / 515 515 / 515 Inj 500 ML @ 250 mls/hr IV.SIG Q12H [facility] Rx#:[id number] Tube Feeding 332 / 332 300 / 300 Water Bolus Amount 250 / 250 250 / 250 Output: Urine 1475 / 1475 1200 / 1200 Other: Date of Last Bowel Movement 02/02/18 02/03/18 02/03/18 # Incontinent Bowel Movements 0 1 <Sin Victoria - 02/03/18 11:01> Narrative: General: Well-developed, alert, easily arousable, and in no acute distress. Neurologic: Appears anxious. Oriented x2. Confused about hospital course HEENT: Atraumatic, moist mucous membranes Neck: Supple, trachea midline Cardiac: Regular rate and rhythm without murmurs Pulmonary: Non-labored breathing. Lungs clear to auscultation bilaterally with good air movement Abdomen: Normal bowel sounds, soft and non-tender without rebound or guarding Extremities: No edema, 2+ pedal pulses, capillary refill less than 2 seconds <Sin Victoria - 02/03/18 11:22> - Urinary Catheter Management 400 Cath placed during this visit: no <Ajit Correia 02/04/18 10:13> no <Sin Victoria - 02/03/18 15:56> Condom Cath placed during this visit: no <Ajit Correia 02/04/18 10:13> no <Sin Victoria - 02/03/18 15:56> Straight Cath placed during this visit: no <Ajit Correia 02/04/18 10:13> yes, but has since been removed by the nurse <Sin Victoria 02/03/18 15:56> Reason for continuing: Not indwelling catheter <Sin Victoria - 11:01> Insertion date: 01/26/18 <Sin Victoria 02/03/18 11:01> Insertion time: 17:30 <Sin Victoria 02/03/18 11:01> Removal date: 01/26/18 <Sin Victoria 02/03/18 11:01> Removal time: 17:35 <Sin Victoria 02/03/18 11:01> Assessment and Plan - Assessment (1) Abdominal pain Code(s): R10.9 - Unspecified abdominal pain Status: Resolved (2) Esophageal varices in cirrhosis Code(s): K74.60 - Unspecified cirrhosis of liver; I85.10 - Secondary esophageal varices without bleeding Status: Chronic (3) Hypertension Code(s): I10 - Essential (primary) hypertension Status: Chronic (4) Alcohol abuse Code(s): F10.10 - Alcohol abuse, uncomplicated Status: Chronic (5) Depression with anxiety Code(s): F41.8 - Other specified anxiety disorders Status: Chronic (6) Cough Code(s): R05 - Cough Status: Resolved (7) Diabetes Code(s): E11.9 - Type 2 diabetes mellitus without complications Status: Chronic (8) Deep vein thrombosis (DVT) of brachial vein Code(s): I82.629 - Acute embolism and thrombosis of deep veins of unspecified upper extremity Status: Acute (9) Chest pain Code(s): R07.9 - Chest pain, unspecified Status: Acute (10) Alcohol withdrawal Code(s): F10.239 - Alcohol dependence with withdrawal, unspecified Status: Resolved <Ajit Correia - 02/04/18 10:13> (1) Abdominal pain Code(s): R10.9 - Unspecified abdominal pain Status: Resolved (2) Esophageal varices in cirrhosis Code(s): K74.60 - Unspecified cirrhosis of liver; I85.10 - Secondary esophageal varices without bleeding Status: Chronic (3) Hypertension Code(s): I10 - Essential (primary) hypertension Status: Chronic (4) Alcohol abuse Code(s): F10.10 - Alcohol abuse, uncomplicated Status: Chronic (5) Depression with anxiety Code(s): F41.8 - Other specified anxiety disorders Status: Chronic (6) Cough Code(s): R05 - Cough Status: Resolved (7) Diabetes Code(s): E11.9 - Type 2 diabetes mellitus without complications Status: Chronic (8) Deep vein thrombosis (DVT) of brachial vein Code(s): I82.629 - Acute embolism and thrombosis of deep veins of unspecified upper extremity Status: Acute (9) Chest pain Code(s): R07.9 - Chest pain, unspecified Status: Acute (10) Alcohol withdrawal Code(s): F10.239 - Alcohol dependence with withdrawal, unspecified Status: Resolved <Sin Victoria - 02/03/18 15:55> - Assessment and Plan Patient is a 52-year-old male with medical history significant for alcoholism, cirrhosis, and esophageal varices who was admitted with esophageal varices, status post banding x4. He has had altered mental status for most of his hospitalization. He was intubated, and then extubated on 01/27. He currently remains confused, however significantly improved. Esophageal varices in the context of cirrhosis: -Status post banding x4. No current evidence of GI bleed. -H&H stable at 8.3 today -His altered mental status is likely secondary to his liver disease. We are unsure of his baseline. He is currently oriented x2. He is slightly less confused today per nursing reports and is not requiring restraints. -Ammonia level improved today at 33 -Haldol as needed for agitation -Continue lactulose 4 times a day and Xifaxan 550 twice daily -Continue IV Protonix BID -Propranolol 40mg BID Respiratory: He has had mild shortness of breath and cough with possible underlying asthma per pulmonology -Continue supplemental oxygen -Continue CPAP as needed for shortness of breath -Continue Albuterol as needed - DC Tessalon Perles 200 mg p.o. every 8 hours -IV vancomycin discontinued today -Fever of 100.5 overnight last night, this is likely secondary to atelectasis Hypertension: Amlodipine 10 mg daily Bumex 0.5 mg daily Clonidine 0.2 mg every 8 hours Propranolol as above Hyperlipidemia: Continue home medication pravastatin 40 mg p.o. nightly Type 2 diabetes mellitus: -Low dose SS insulin DVT of brachial vein (right): -Last ultrasound on 01/28 was negative for DVT, DVT last seen the ultrasound on 01/19 -Decision and amount of anticoagulation is complicated due to his variceal bleed. -We are following critical care as recommendation of the Lovenox 40mg daily Alcohol withdrawal: resolved He has a significant history of alcohol abuse and had been receiving treatment at [facility]. He had not been sober at the time of admission. He was transferred to the ICU secondary to withdraw. This has now resolved and he is not currently on any benzodiazepines. Fluids: Adequate p.o. intake Electrolytes: monitor and replete as needed Nutrition:. Solids and nectar thick liquids. This is the recommendation from swallow eval today. GI prophylaxis: IV Protonix VTE prophylaxis: Lovenox 40mg q24 Disposition: Critical care has signed off and he was transferred to the floor today Further disposition is pending evaluation by case management and physical therapy Patient was seen and examined with Dr. Campbell and care was discussed with Dr. Correia <Sin Victoria - 11/26/18 15:53> - Attending Attestation This patient was evaluated with the resident physician. I agree with the plan of care as discussed with me and documented in the resident note. Ajit Correia MD <Ajit Correia - 02/04/18 10:13>
--- NOTE | 2018-02-03 12:48 | P.DIET ---
Nutritional Evaluation Type of nutrition evaluation: follow-up Nutrition consult regarding: Tube Feeding Screening comments: 01/20 TF review Subjective Subjective Comments: Pt is now extubated 01/27/18 Objective - Diagnosis abd pain, mesenteric edema, vomiting - Objective % IBW: 137 (IBW = 160lb) Body Weight Used for Calculations: IBW Energy Needs - Lower Range (kCal/kg): 22 Energy Needs - Upper Range (kCal/kg): 25 Lower Limit kCal/kg (kCals): 1,600 Upper Limit kCal/kg (kCals): 1,818 Lower Limit Protein Factor (Grams per Kg): 1.2 Upper Limit Protein Factor (Grams per Kg): 1.5 Lower Protein Needs (Protein): 87 Upper Protein Needs (Protein): 109 Dietitian Reviewed in Medical Record: Curent medications, Intake & Output, Labs , Medical history Diet Order: TF'ing Speech Therapy Recommendations: Yes (pureed diet, nectar consistency) Objective Comments: PMH: depression, DM, esophageal varices, ETOH abuse, GI bleed, HTN Labs include: K+3.3, BUN 6, POC glucose 162, 197, Ca+ 7.7 Meds include: Norvasc, Bumex, Catapres, Novolog, Xifaxan, Lactulose, MV/Folic Acid/Vit C, Pravachol, Zofran, Protonix LBM 02/03/18, +UOP 2675ml Assessment Assessment: Pt continues at nutritional risk r/t need for TF'ing. Pt currently receiving Nutrihep @ 30mL/hr. RD to recommend Glucerna 1.5 @ 50mL/hr to provide 1800kcal , 99g of protein, and 911mL of free water. RD will monitor diet advancement. Rec 1800ADA when pt is able to consume a PO diet. Assess need for an oral nutritional supplement as appropriate. Labs reviewed. Wt changes noted. Recommendations: 1.Rec Glucerna 1.5 @ 50mL/hr to best meet pts nutritional needs 2. RD will monitor diet advancement 3. Rec 1800ADA when pt is able to consume PO diet 4. Assess need for an oral nutritional supplement as appropriate Dietitian to Monitor: Lab values, Glucose level, Intake & Output, Weight change , Diet advancement, Swallow recommendations, Medical course
[2018-02-03] MEDS: Enoxaparin Inj 40 MG/0.4 ML Syringe SQ SCH (14:00)
--- NOTE | 2018-02-03 19:03 | P.PNPL ---
Subjective Interval history: 52 YO male with GIB, cirrhosis Developed resp distress, agitation Extubated 01/27 Alert, awake, follows commands Tolerates PO Physical Exam Vital signs: Vital Signs 02/02/18 20:00 02/02/18 20:49 02/03/18 00:00 Temperature 99.5 F 99.1 F Pulse Rate 91 H 93 H Respiratory Rate 20 28 H Blood Pressure 141/76 H 142/71 H Pulse Oximetry 99 98 99 02/03/18 04:00 02/03/18 08:00 02/03/18 08:37 Temperature 100.5 F H 98.3 F Pulse Rate 96 H 85 90 Respiratory Rate 19 18 23 Blood Pressure 154/76 H 143/66 H 118/58 L Pulse Oximetry 99 100 100 02/03/18 09:00 02/03/18 09:30 02/03/18 10:00 Temperature Pulse Rate 79 77 81 Respiratory Rate 23 18 Blood Pressure 122/84 118/58 L Pulse Oximetry 94 L 98 100 02/03/18 10:13 02/03/18 10:30 02/03/18 11:00 Temperature Pulse Rate 78 76 80 Respiratory Rate 20 24 21 Blood Pressure 117/59 L 118/79 Pulse Oximetry 99 97 99 02/03/18 11:06 02/03/18 12:00 02/03/18 13:00 Temperature Pulse Rate 83 84 86 Respiratory Rate 16 21 24 Blood Pressure 115/64 Pulse Oximetry 99 100 100 02/03/18 14:00 02/03/18 16:00 Temperature 98.9 F Pulse Rate 82 80 Respiratory Rate 24 20 Blood Pressure 118/70 Pulse Oximetry 99 96 Intake & Output 02/03/18 02/03/18 02/04/18 06:59 18:59 06:59 Intake Total 1065 / 1065 Output Total 1200 / 1200 750 / 750 Balance -135 / -135 -750 / -750 Weight 99.5 kg Intake: IV 515 / 515 Vancomycin Inj 1,500 MG In NS 515 / 515 Inj 500 ML @ 250 mls/hr IV.SIG Q12H [facility] Rx#:[id number] Tube Feeding 300 / 300 Water Bolus Amount 250 / 250 Output: Urine 1200 / 1200 Urine Amount (Catheter) 750 / 750 Condom 750 / 750 Other: Date of Last Bowel Movement 02/03/18 02/03/18 # Incontinent Bowel Movements 1 GENERAL: WBWN, NAD SKIN: Warm and dry. HEAD: Normocephalic. EYES: No scleral icterus. No injection or drainage. NECK: Supple, trachea midline. No JVD or lymphadenopathy. CARDIOVASCULAR: Regular rate and rhythm without murmurs, gallops, or rubs. RESPIRATORY: Breath sounds equal bilaterally. No accessory muscle use. GASTROINTESTINAL: Abdomen soft, non-tender, nondistended. MUSCULOSKELETAL: No cyanosis, or edema. BACK: Nontender without obvious deformity. No CVA tenderness. - Urinary Catheter Management Straight Cath placed during this visit: yes, but has since been removed by the nurse Reason for continuing: Not indwelling catheter Insertion date: 01/26/18 Insertion time: 17:30 Removal date: 01/26/18 Removal time: 17:35 Condom Cath placed during this visit: no 400 Cath placed during this visit: no Assessment and Plan - Plan IMPRESSION: 1. Mild shortness of breath and cough, possibly underlying asthma. 2. Hypertension. 3. Diabetes mellitus. 4. Cirrhosis of the liver. 5. VDRF, s/p extubation 01/27 6. Encephalopathy. PLAN: Supplement 02 CPAP prn sob Depakote 500 mg daily Monitor Ammonia level. Oral suction prn. monitor Ammonia level.
[2018-02-04] MEDS: Chlorhexidine 0.12% Oral Kit 15 ML UDC OROPHARYNG SCH ×3 (00:08→21:15)
[2018-02-04] MEDS: Insulin NovoLOG Aspart Correctional Sugar Inj SQ SCH ×4 (00:11→17:09)
[2018-02-04] MEDS: Oral Hygiene Kit OROPHARYNG SCH ×4 (00:11→16:00)
[2018-02-04] MEDS: Artificial Tears Opth Drops 15 ML Bottle EACH EYE SCH ×3 (05:06→22:51)
[2018-02-04 07:11] LABS: Baso % (Auto) 0.8 % (0.0-2.0); Eos # (Auto) 0.2 th/mm3 (0.0-0.4); Eos % (Auto) 3.4 % (0.0-4.0); Lymph # (Auto) 0.7 th/mm3 (1.0-4.8); Lymph % (Auto) 15.6 % (9.0-44.0); Mean Corpuscular HGB Conc 33.4 % (32.0-36.0); Mean Corpuscular Hemoglobin 26.2 pg (27.0-34.0); Mean Corpuscular Volume 78.4 fL (80.0-100.0); Mean Platelet Volume 8.1 fL (7.0-11.0); Mono % (Auto) 21.7 % (0.0-8.0); Neut # (Auto) 2.8 th/mm3 (1.8-7.7); Neut % (Auto) 58.5 % (16.0-70.0); Platelet Count 78 th/mm3 (150-450); Red Blood Count 2.64 mil/mm3 (4.50-5.90); Red Cell Distribution Width 18.8 % (11.6-17.2); White Blood Count 4.8 th/mm3 (4.0-11.0)
[2018-02-04 07:35] LABS: Hematocrit 20.7 % (39.0-51.0); Hemoglobin 6.9 gm/dL (13.0-17.0)
[2018-02-04 07:39] LABS: Alanine Aminotransferase 22 U/L (12-78); Albumin 2.2 g/dL (3.4-5.0); Anion Gap 6 meq/L (5-15); Aspartate Aminotransferase 40 U/L (15-37); Blood Urea Nitrogen 7 mg/dL (7-18); Calcium 7.9 mg/dL (8.5-10.1); Carbon Dioxide 30.3 meq/L (21.0-32.0); Chloride 106 meq/L (98-107); Glomerular Filtration Rate Greater Than 89 mL/min (>89); Glucose,Random 107 mg/dL (74-106); Magnesium 1.7 mg/dL (1.5-2.5); Potassium 3.1 meq/L (3.5-5.1); Sodium 142 meq/L (136-145)
[2018-02-04 07:41] LABS: Alkaline Phosphatase 161 U/L (45-117); Total Protein 5.9 g/dL (6.4-8.2)
[2018-02-04] MEDS: rifAXIMin 550 MG Tablet PO SCH ×2 (08:47→22:49)
[2018-02-04] MEDS: Senna/Docusate Sodium 8.6/50 MG Tablet PO SCH ×2 (08:47→22:49)
[2018-02-04] MEDS: Multivit/Folic Acid/Minerals Chewable Tablets CHEW SCH (08:48)
[2018-02-04] MEDS: Sodium Chloride 0.9% 2 ML Flush BID IV.FLUSH SCH ×2 (08:49→22:49)
[2018-02-04] MEDS: Propranolol 40 MG Tablet PO SCH ×2 (08:49→22:48)
[2018-02-04] MEDS: Pantoprazole Inj 40 MG Vial IV.PUSH SCH ×2 (08:49→22:50)
[2018-02-04] MEDS ORDERED: amLODIPine 5 MG Tablet PO SCH (09:00)
--- NOTE | 2018-02-04 11:51 | P.PNPL ---
Subjective Interval history: 52 YO male with GIB, cirrhosis Developed resp distress, agitation Extubated 01/27 Alert, awake, follows commands Has diarrhoea Physical Exam Vital signs: Vital Signs 02/03/18 12:00 02/03/18 13:00 02/03/18 14:00 Temperature Pulse Rate 84 86 82 Respiratory Rate 21 24 24 Blood Pressure Pulse Oximetry 100 100 99 02/03/18 16:00 02/03/18 20:00 02/03/18 21:00 Temperature 98.9 F 99.6 F Pulse Rate 80 90 95 H Respiratory Rate 20 19 Blood Pressure 118/70 111/73 Pulse Oximetry 96 99 02/04/18 00:00 02/04/18 04:00 02/04/18 04:31 Temperature 99.5 F 99.6 F Pulse Rate 84 91 H 111 H Respiratory Rate 18 18 Blood Pressure 85/53 L 103/58 L Pulse Oximetry 96 92 L 02/04/18 08:00 Temperature Pulse Rate 83 Respiratory Rate 18 Blood Pressure 111/72 Pulse Oximetry 98 Intake & Output 02/03/18 02/04/18 02/04/18 18:59 06:59 18:59 Intake Total 700 / 700 0 / 0 Output Total 750 / 750 2400 / 2400 Balance -50 / -50 -2400 / -2400 Weight 102 kg Intake: IV 700 / 700 D5W Inj 1,000 ML @ 100 mls/hr 700 / 700 IV.CONT .Q10H [facility] Rx#:[id number] Oral 0 / 0 Tube Feeding 0 / 0 Tube Irrigant 0 / 0 Water Bolus Amount 0 / 0 Output: Urine 1200 / 1200 Stool 0 / 0 Urine/Stool Mix 0 / 0 Urine Amount (Catheter) 750 / 750 1200 / 1200 Condom 750 / 750 1200 / 1200 Straight 0 / 0 Other: # Voids 3 # Incontinent Voids 0 Date of Last Bowel Movement 02/03/18 02/04/18 # Bowel Movements 0 # Incontinent Bowel Movements 1 GENERAL: WBWN, NAD SKIN: Warm and dry. HEAD: Normocephalic. EYES: No scleral icterus. No injection or drainage. NECK: Supple, trachea midline. No JVD or lymphadenopathy. CARDIOVASCULAR: Regular rate and rhythm without murmurs, gallops, or rubs. RESPIRATORY: Breath sounds equal bilaterally. No accessory muscle use. GASTROINTESTINAL: Abdomen soft, non-tender, nondistended. MUSCULOSKELETAL: No cyanosis, or edema. BACK: Nontender without obvious deformity. No CVA tenderness. - Urinary Catheter Management Straight Cath placed during this visit: yes, but has since been removed by the nurse Reason for continuing: Not indwelling catheter Insertion date: 01/26/18 Insertion time: 17:30 Removal date: 01/26/18 Removal time: 17:35 Condom Cath placed during this visit: no 400 Cath placed during this visit: no Assessment and Plan - Plan IMPRESSION: 1. Mild shortness of breath and cough, possibly underlying asthma. 2. Hypertension. 3. Diabetes mellitus. 4. Cirrhosis of the liver. 5. VDRF, s/p extubation 01/27 6. Encephalopathy. PLAN: Supplement 02 CPAP prn sob Depakote 500 mg daily Monitor Ammonia level. Preed diet, Nector thick liq per [employer]
[2018-02-04] MEDS: Ferrous Sulfate 325 MG Tablet PO SCH ×2 (13:15→17:09)
--- NOTE | 2018-02-04 13:16 | P.PNFP ---
Subjective Interval history: No acute events overnight. He is oriented x3 today and has significantly less confusion than yesterday. He denies headache, lightheadedness, dizziness, fever , chills, nausea, vomiting, chest pain, palpitations, shortness of breath, abdominal pain. He does state that he has dark stools. <EsmeSin J - 02/04/18 17:14> Results - Labs Result diagrams: 02/06/18 05:18 02/06/18 05:18 <Ajit Correia - 02/06/18 12:59> Abnormal lab results 02/05/18 02/06/18 02/06/18 Range/Units 17:47 01:05 05:18 RBC 3.29 L (4.50-5.90) mil/mm3 Hgb 8.7 L (13.0-17.0) gm/dL Hct 26.2 L (39.0-51.0) % MCV 79.4 L (80.0-100.0) fL MCH 26.3 L (27.0-34.0) pg RDW 19.8 H (11.6-17.2) % Plt Count 131 L (150-450) th/mm3 Neut % (Auto) 71.0 H (16.0-70.0) % Lymph % (Auto) 8.7 L (9.0-44.0) % [place] % (Auto) 18.8 H (0.0-8.0) % Lymph # (Auto) 0.9 L (1.0-4.8) th/mm3 [place] # (Auto) 1.9 H (0.0-0.9) th/mm3 Potassium (3.5-5.1) meq/L POC Glucose 168 H 152 H (68-110) mg/dl Random Glucose (74-106) mg/dL Total Bilirubin (0.2-1.0) mg/dL AST (15-37) U/L Alkaline Phosphatase (45-117) U/L Ammonia (11-32) mcmol/L Albumin (3.4-5.0) g/dL 02/06/18 02/06/18 02/06/18 Range/Units 05:18 05:18 05:42 RBC (4.50-5.90) mil/mm3 Hgb (13.0-17.0) gm/dL Hct (39.0-51.0) % MCV (80.0-100.0) fL MCH (27.0-34.0) pg RDW (11.6-17.2) % Plt Count (150-450) th/mm3 Neut % (Auto) (16.0-70.0) % Lymph % (Auto) (9.0-44.0) % [place] % (Auto) (0.0-8.0) % Lymph # (Auto) (1.0-4.8) th/mm3 [place] # (Auto) (0.0-0.9) th/mm3 Potassium 3.2 L (3.5-5.1) meq/L POC Glucose 196 H (68-110) mg/dl Random Glucose 161 H (74-106) mg/dL Total Bilirubin 1.5 H (0.2-1.0) mg/dL AST 47 H (15-37) U/L Alkaline Phosphatase 198 H (45-117) U/L Ammonia 86 H (11-32) mcmol/L Albumin 2.7 L (3.4-5.0) g/dL 02/06/18 Range/Units 12:15 RBC (4.50-5.90) mil/mm3 Hgb (13.0-17.0) gm/dL Hct (39.0-51.0) % MCV (80.0-100.0) fL MCH (27.0-34.0) pg RDW (11.6-17.2) % Plt Count (150-450) th/mm3 Neut % (Auto) (16.0-70.0) % Lymph % (Auto) (9.0-44.0) % [place] % (Auto) (0.0-8.0) % Lymph # (Auto) (1.0-4.8) th/mm3 [place] # (Auto) (0.0-0.9) th/mm3 Potassium (3.5-5.1) meq/L POC Glucose 182 H (68-110) mg/dl Random Glucose (74-106) mg/dL Total Bilirubin (0.2-1.0) mg/dL AST (15-37) U/L Alkaline Phosphatase (45-117) U/L Ammonia (11-32) mcmol/L Albumin (3.4-5.0) g/dL Short CBC 02/06/18 Range/Units 05:18 WBC 10.2 (4.0-11.0) th/mm3 Hgb 8.7 L (13.0-17.0) gm/dL Hct 26.2 L (39.0-51.0) % Plt Count 131 L (150-450) th/mm3 BMP 02/06/18 05:18 Sodium 137 Potassium 3.2 L Chloride 99 Carbon Dioxide 31.1 BUN 7 Creatinine 0.82 Calcium 8.5 Liver Function 02/06/18 Range/Units 05:18 Total Bilirubin 1.5 H (0.2-1.0) mg/dL AST 47 H (15-37) U/L ALT 24 (12-78) U/L Alkaline Phosphatase 198 H (45-117) U/L Albumin 2.7 L (3.4-5.0) g/dL <Ajit Correia - 02/06/18 12:59> Abnormal lab results 02/03/18 02/03/18 02/03/18 Range/Units 14:00 17:09 23:50 RBC (4.50-5.90) mil/mm3 Hgb (13.0-17.0) gm/dL Hct (39.0-51.0) % MCV (80.0-100.0) fL MCH (27.0-34.0) pg RDW (11.6-17.2) % Plt Count (150-450) th/mm3 [place] % (Auto) (0.0-8.0) % Lymph # (Auto) (1.0-4.8) th/mm3 [place] # (Auto) (0.0-0.9) th/mm3 Platelet Estimate (Normal) Platelet Morphology (Normal) Potassium (3.5-5.1) meq/L POC Glucose 189 H 178 H 218 H (68-110) mg/dl Random Glucose (74-106) mg/dL Calcium (8.5-10.1) mg/dL AST (15-37) U/L Alkaline Phosphatase (45-117) U/L Ammonia (11-32) mcmol/L Total Protein (6.4-8.2) g/dL Albumin (3.4-5.0) g/dL 02/04/18 02/04/18 02/04/18 Range/Units 05:04 06:20 06:20 RBC 2.64 L (4.50-5.90) mil/mm3 Hgb 6.9 L* (13.0-17.0) gm/dL Hct 20.7 L* (39.0-51.0) % MCV 78.4 L (80.0-100.0) fL MCH 26.2 L (27.0-34.0) pg RDW 18.8 H (11.6-17.2) % Plt Count 78 L (150-450) th/mm3 [place] % (Auto) 21.7 H (0.0-8.0) % Lymph # (Auto) 0.7 L (1.0-4.8) th/mm3 [place] # (Auto) 1.0 H (0.0-0.9) th/mm3 Platelet Estimate Low L (Normal) Platelet Morphology Enlarged H (Normal) Potassium 3.1 L (3.5-5.1) meq/L POC Glucose 120 H (68-110) mg/dl Random Glucose 107 H (74-106) mg/dL Calcium 7.9 L (8.5-10.1) mg/dL AST 40 H (15-37) U/L Alkaline Phosphatase 161 H (45-117) U/L Ammonia (11-32) mcmol/L Total Protein 5.9 L (6.4-8.2) g/dL Albumin 2.2 L (3.4-5.0) g/dL 02/04/18 Range/Units 06:20 RBC (4.50-5.90) mil/mm3 Hgb (13.0-17.0) gm/dL Hct (39.0-51.0) % MCV (80.0-100.0) fL MCH (27.0-34.0) pg RDW (11.6-17.2) % Plt Count (150-450) th/mm3 [place] % (Auto) (0.0-8.0) % Lymph # (Auto) (1.0-4.8) th/mm3 [place] # (Auto) (0.0-0.9) th/mm3 Platelet Estimate (Normal) Platelet Morphology (Normal) Potassium (3.5-5.1) meq/L POC Glucose (68-110) mg/dl Random Glucose (74-106) mg/dL Calcium (8.5-10.1) mg/dL AST (15-37) U/L Alkaline Phosphatase (45-117) U/L Ammonia 39 H (11-32) mcmol/L Total Protein (6.4-8.2) g/dL Albumin (3.4-5.0) g/dL Short CBC 02/04/18 Range/Units 06:20 WBC 4.8 (4.0-11.0) th/mm3 Hgb 6.9 L* (13.0-17.0) gm/dL Hct 20.7 L* (39.0-51.0) % Plt Count 78 L (150-450) th/mm3 BMP 02/04/18 06:20 Sodium 142 Potassium 3.1 L Chloride 106 Carbon Dioxide 30.3 BUN 7 Creatinine 0.74 Calcium 7.9 L Liver Function 02/04/18 Range/Units 06:20 Total Bilirubin 1.0 (0.2-1.0) mg/dL AST 40 H (15-37) U/L ALT 22 (12-78) U/L Alkaline Phosphatase 161 H (45-117) U/L Albumin 2.2 L (3.4-5.0) g/dL <Sin Victoria - 02/04/18 13:16> Physical Exam Vital signs: Vital Signs 02/05/18 16:00 02/05/18 17:45 02/05/18 20:00 Temperature 99.3 F 98.6 F Pulse Rate 82 88 Respiratory Rate 18 19 Blood Pressure 139/77 129/61 Pulse Oximetry 94 L 94 L 97 02/06/18 00:00 02/06/18 04:00 02/06/18 08:00 Temperature 100.8 F H 100.3 F H 98.3 F Pulse Rate 89 80 87 Respiratory Rate 18 19 18 Blood Pressure 122/60 132/65 115/63 Pulse Oximetry 95 95 97 02/06/18 09:40 Temperature Pulse Rate Respiratory Rate Blood Pressure Pulse Oximetry 95 Intake & Output 02/05/18 02/06/18 02/06/18 18:59 06:59 18:59 Intake Total 1120 / 1120 400 / 400 Output Total 300 / 300 600 / 600 Balance 820 / 820 -200 / -200 Weight 97.9 kg Intake: IV 1000 / 1000 LR 1000 mL Inj 1,000 ML @ 30 1000 / 1000 mls/hr IV.CONT .Q24H ONE Rx#: [id number] Oral 120 / 120 400 / 400 Output: Urine 300 / 300 600 / 600 Other: # Incontinent Voids 2 Date of Last Bowel Movement 02/05/18 02/04/18 # Bowel Movements 1 <Ajit Correia R - 02/06/18 12:59> Vital Signs 02/03/18 14:00 02/03/18 16:00 02/03/18 20:00 Temperature 98.9 F 99.6 F Pulse Rate 82 80 90 Respiratory Rate 24 20 19 Blood Pressure 118/70 111/73 Pulse Oximetry 99 96 99 02/03/18 21:00 02/04/18 00:00 02/04/18 04:00 Temperature 99.5 F 99.6 F Pulse Rate 95 H 84 91 H Respiratory Rate 18 18 Blood Pressure 85/53 L 103/58 L Pulse Oximetry 96 92 L 02/04/18 04:31 02/04/18 08:00 Temperature Pulse Rate 111 H 83 Respiratory Rate 18 Blood Pressure 111/72 Pulse Oximetry 98 Intake & Output 02/03/18 02/04/18 02/04/18 18:59 06:59 18:59 Intake Total 700 / 700 0 / 0 Output Total 750 / 750 2400 / 2400 Balance -50 / -50 -2400 / -2400 Weight 102 kg Intake: IV 700 / 700 D5W Inj 1,000 ML @ 100 mls/hr 700 / 700 IV.CONT .Q10H [facility] Rx#:[id number] Oral 0 / 0 Tube Feeding 0 / 0 Tube Irrigant 0 / 0 Water Bolus Amount 0 / 0 Output: Urine 1200 / 1200 Stool 0 / 0 Urine/Stool Mix 0 / 0 Urine Amount (Catheter) 750 / 750 1200 / 1200 Condom 750 / 750 1200 / 1200 Straight 0 / 0 Other: # Voids 3 # Incontinent Voids 0 Date of Last Bowel Movement 02/03/18 02/04/18 # Bowel Movements 0 # Incontinent Bowel Movements 1 <Sin Victoria - 02/04/18 13:16> Narrative: General: Well-developed, alert, and in no acute distress. Neurologic: Oriented x3, less confusion today HEENT: Atraumatic, moist mucous membranes Neck: Supple, trachea midline Cardiac: Regular rate and rhythm without murmurs Pulmonary: Non-labored breathing. Lungs clear to auscultation bilaterally with good air movement Abdomen: Normal bowel sounds, soft and non-tender without rebound or guarding Extremities: No edema, 2+ pedal pulses, capillary refill less than 2 seconds <Sin Victoria - 02/04/18 17:14> - Urinary Catheter Management 400 Cath placed during this visit: no <Ajit Correia - 02/06/18 12:59> no <Sin Victoria - 02/04/18 17:14> Condom Cath placed during this visit: no <Ajit Correia 02/06/18 12:59> no <Sin Victoria - 02/04/18 17:14> Straight Cath placed during this visit: no <Ajit Correia 02/06/18 12:59> yes, but has since been removed by the nurse <Sin Victoria 02/04/18 17:14> Reason for continuing: Not indwelling catheter <Sin Victoria - 13:16> Insertion date: 01/26/18 <Sin Victoria - 02/04/18 13:16> Insertion time: 17:30 <Sin Victoria - 02/04/18 13:16> Removal date: 01/26/18 <Sin Victoria - 02/04/18 13:16> Removal time: 17:35 <Sin Victoria - 02/04/18 13:16> Assessment and Plan - Assessment (1) Abdominal pain Code(s): R10.9 - Unspecified abdominal pain Status: Resolved (2) Esophageal varices in cirrhosis Code(s): K74.60 - Unspecified cirrhosis of liver; I85.10 - Secondary esophageal varices without bleeding Status: Chronic (3) Hypertension Code(s): I10 - Essential (primary) hypertension Status: Chronic (4) Alcohol abuse Code(s): F10.10 - Alcohol abuse, uncomplicated Status: Chronic (5) Depression with anxiety Code(s): F41.8 - Other specified anxiety disorders Status: Chronic (6) Cough Code(s): R05 - Cough Status: Resolved (7) Diabetes Code(s): E11.9 - Type 2 diabetes mellitus without complications Status: Chronic (8) Deep vein thrombosis (DVT) of brachial vein Code(s): I82.629 - Acute embolism and thrombosis of deep veins of unspecified upper extremity Status: Acute (9) Chest pain Code(s): R07.9 - Chest pain, unspecified Status: Acute (10) Alcohol withdrawal Code(s): F10.239 - Alcohol dependence with withdrawal, unspecified Status: Resolved <Ajit Correia - 02/06/18 12:59> (1) Abdominal pain Code(s): R10.9 - Unspecified abdominal pain Status: Resolved (2) Esophageal varices in cirrhosis Code(s): K74.60 - Unspecified cirrhosis of liver; I85.10 - Secondary esophageal varices without bleeding Status: Chronic (3) Hypertension Code(s): I10 - Essential (primary) hypertension Status: Chronic (4) Alcohol abuse Code(s): F10.10 - Alcohol abuse, uncomplicated Status: Chronic (5) Depression with anxiety Code(s): F41.8 - Other specified anxiety disorders Status: Chronic (6) Cough Code(s): R05 - Cough Status: Resolved (7) Diabetes Code(s): E11.9 - Type 2 diabetes mellitus without complications Status: Chronic (8) Deep vein thrombosis (DVT) of brachial vein Code(s): I82.629 - Acute embolism and thrombosis of deep veins of unspecified upper extremity Status: Acute (9) Chest pain Code(s): R07.9 - Chest pain, unspecified Status: Acute (10) Alcohol withdrawal Code(s): F10.239 - Alcohol dependence with withdrawal, unspecified Status: Resolved <Sin Victoria - 02/04/18 17:00> - Assessment and Plan Patient is a 52-year-old male with medical history significant for alcoholism, cirrhosis, and esophageal varices who was admitted with esophageal varices, status post banding x4. He has had altered mental status for most of his hospitalization. He was intubated, and then extubated on 01/27. His confusion has improved significantly today. He does have continued melena and had a hemoglobin dropped to 6.9 today. Esophageal varices in the context of cirrhosis: -Status post banding x4, current melena. -H&H decreased to 6.9 today -Gastroenterology was called and examined the patient. Plan for repeat endoscopy tomorrow. -His altered mental status is likely secondary to his liver disease. We are unsure of his baseline, however he is significantly less confused now. He is now oriented x3. -Ammonia level still elevated at 39 today -Continue lactulose 4 times a day and Xifaxan 550 twice daily -Continue IV Protonix BID -Propranolol 40mg BID Respiratory: He has had mild shortness of breath and cough with possible underlying asthma per pulmonology -Continue supplemental oxygen as needed -Continue CPAP as needed for shortness of breath -Continue Albuterol as needed Hypertension: Amlodipine discontinued today due to borderline hypotension (lowest map of 64) Bumex 0.5 mg daily Propranolol as above Hyperlipidemia: Continue home medication pravastatin 40 mg p.o. nightly Hypokalemia: -He has had some mild hypokalemia throughout his hospitalization. Potassium today was 3.1 -20 mg of p.o. potassium ordered Type 2 diabetes mellitus: -Low dose SS insulin DVT of brachial vein (right): -Last ultrasound on 01/28 was negative for DVT, DVT last seen the ultrasound on 01/19 -Decision and amount of anticoagulation is complicated due to his variceal bleed. -We are following critical care as recommendation of the Lovenox 40mg daily Alcohol withdrawal: resolved He has a significant history of alcohol abuse and had been receiving treatment at [facility]. He had not been sober at the time of admission. He was transferred to the ICU secondary to withdraw. This has now resolved and he is not currently on any benzodiazepines. Fluids: Adequate p.o. intake Electrolytes: monitor and replete as needed Nutrition:. Solids and nectar thick liquids. This is the recommendation from swallow eval today. GI prophylaxis: IV Protonix VTE prophylaxis: Lovenox 40mg q24 Disposition: He will need physical therapy at rehab, however he is not currently medically stable for discharge Patient was seen and examined with Dr. Campbell and care was discussed with Dr. Correia <Sin Victoria - 02/04/18 17:14> - Attending Attestation This patient was seen and evaluated with the resident physician. I agree with the plan of care as discussed with me and documented in the resident note. Ajit Correia MD <Ajit Correia - 02/06/18 12:59>
[2018-02-04] MEDS: Enoxaparin Inj 40 MG/0.4 ML Syringe SQ SCH (14:03)
--- NOTE | 2018-02-04 19:19 | P.PNGI ---
Subjective Interval history: Patient awake and alert laying supine in bed Denies any noted bleeding Reports he will not accept blood product as he is [employer] supplements started as per attending <Celia Wing - Last Filed: 02/04/18 19:15> Physical Exam Vital signs: Vital Signs 02/03/18 20:00 02/03/18 21:00 02/04/18 00:00 Temperature 99.6 F 99.5 F Pulse Rate 90 95 H 84 Respiratory Rate 19 18 Blood Pressure 111/73 85/53 L Pulse Oximetry 99 96 02/04/18 04:00 02/04/18 04:31 02/04/18 08:00 Temperature 99.6 F Pulse Rate 91 H 111 H 83 Respiratory Rate 18 18 Blood Pressure 103/58 L 111/72 Pulse Oximetry 92 L 98 02/04/18 12:00 02/04/18 16:00 02/04/18 16:42 Temperature 98.9 F Pulse Rate 80 78 81 Respiratory Rate 18 Blood Pressure 80/57 L 110/54 L Pulse Oximetry 95 Intake & Output 02/04/18 02/04/18 02/05/18 06:59 18:59 06:59 Intake Total 0 / 0 720 / 720 Output Total 2400 / 2400 1400 / 1400 Balance -2400 / -2400 -680 / -680 Weight 102 kg Intake: Oral 0 / 0 720 / 720 Tube Feeding 0 / 0 Tube Irrigant 0 / 0 Water Bolus Amount 0 / 0 Output: Urine 1200 / 1200 1400 / 1400 Stool 0 / 0 Urine/Stool Mix 0 / 0 Urine Amount (Catheter) 1200 / 1200 Condom 1200 / 1200 Straight 0 / 0 Other: # Voids 3 # Incontinent Voids 0 Date of Last Bowel Movement 02/04/18 # Bowel Movements 0 # Incontinent Bowel Movements 1 - Constitutional no acute distress, chronically ill appearing - Routine HEENT Exam Head: Present: normocephalic - Routine Respiratory Exam Present: CTA bilaterally. Absent: accessory muscle use - Routine Cardiovascular Exam Present: RRR - Routine Abdominal Exam Present: soft, normoactive bowel sounds. Absent: tenderness, distended, guarding, firm - Routine Skin Exam Present: dry, warm - Routine Neurological Exam Present: alert - Routine Psychiatric Exam Present: normal affect, cooperative - Urinary Catheter Management Straight Cath placed during this visit: yes, but has since been removed by the nurse Reason for continuing: Not indwelling catheter Insertion date: 01/26/18 Insertion time: 17:30 Removal date: 01/26/18 Removal time: 17:35 Condom Cath placed during this visit: no 400 Cath placed during this visit: no <Celia Wing - Last Filed: 02/04/18 19:15> Vital signs: Vital Signs 02/04/18 16:00 02/04/18 16:42 02/04/18 20:00 Temperature 99.9 F H Pulse Rate 78 81 81 Respiratory Rate 20 Blood Pressure 110/54 L 119/60 Pulse Oximetry 98 02/05/18 00:00 02/05/18 04:00 02/05/18 08:00 Temperature 98.4 F 100.4 F H 99.3 F Pulse Rate 78 86 85 Respiratory Rate 20 18 17 Blood Pressure 109/58 L 115/60 108/70 Pulse Oximetry 97 97 98 Intake & Output 02/04/18 02/05/18 02/05/18 18:59 06:59 18:59 Intake Total 720 / 720 0 / 0 Output Total 1400 / 1400 850 / 850 Balance -680 / -680 -850 / -850 Weight 102.3 kg Intake: Oral 720 / 720 0 / 0 Output: Urine 1400 / 1400 850 / 850 Other: Date of Last Bowel Movement 02/04/18 # Bowel Movements 1 - Urinary Catheter Management Straight Cath placed during this visit: no Condom Cath placed during this visit: no 400 Cath placed during this visit: no <Richy Zarco - Last Filed: 02/05/18 12:09> Results - Labs CBC & Chem 7: 02/04/18 06:20 02/04/18 06:20 Laboratory Results - last 24 hr 02/03/18 02/04/18 02/04/18 23:50 05:04 06:20 WBC 4.8 RBC 2.64 L Hgb 6.9 L* Hct 20.7 L* MCV 78.4 L MCH 26.2 L MCHC 33.4 RDW 18.8 H Plt Count 78 L MPV 8.1 Prelim Diff (Auto) Slide review pending Neut % (Auto) 58.5 Lymph % (Auto) 15.6 [place] % (Auto) 21.7 H Eos % (Auto) 3.4 Baso % (Auto) 0.8 Neut # (Auto) 2.8 Lymph # (Auto) 0.7 L [place] # (Auto) 1.0 H Eos # (Auto) 0.2 Baso # (Auto) 0.0 WBC Differential . Diff Scan Auto diff confirmed Differential Comment . Platelet Estimate Low L Platelet Morphology Enlarged H Sodium Potassium Chloride Carbon Dioxide Anion Gap BUN Creatinine Estimated GFR POC Glucose 218 H 120 H Random Glucose Calcium Magnesium Total Bilirubin AST ALT Alkaline Phosphatase Ammonia Total Protein Albumin 02/04/18 02/04/18 02/04/18 06:20 06:20 13:16 WBC RBC Hgb Hct MCV MCH MCHC RDW Plt Count MPV Prelim Diff (Auto) Neut % (Auto) Lymph % (Auto) [place] % (Auto) Eos % (Auto) Baso % (Auto) Neut # (Auto) Lymph # (Auto) [place] # (Auto) Eos # (Auto) Baso # (Auto) WBC Differential Diff Scan Differential Comment Platelet Estimate Platelet Morphology Sodium 142 Potassium 3.1 L Chloride 106 Carbon Dioxide 30.3 Anion Gap 6 BUN 7 Creatinine 0.74 Estimated GFR Greater than 89 POC Glucose 144 H Random Glucose 107 H Calcium 7.9 L Magnesium 1.7 Total Bilirubin 1.0 AST 40 H ALT 22 Alkaline Phosphatase 161 H Ammonia 39 H Total Protein 5.9 L Albumin 2.2 L 02/04/18 17:09 WBC RBC Hgb Hct MCV MCH MCHC RDW Plt Count MPV Prelim Diff (Auto) Neut % (Auto) Lymph % (Auto) [place] % (Auto) Eos % (Auto) Baso % (Auto) Neut # (Auto) Lymph # (Auto) [place] # (Auto) Eos # (Auto) Baso # (Auto) WBC Differential Diff Scan Differential Comment Platelet Estimate Platelet Morphology Sodium Potassium Chloride Carbon Dioxide Anion Gap BUN Creatinine Estimated GFR POC Glucose 137 H Random Glucose Calcium Magnesium Total Bilirubin AST ALT Alkaline Phosphatase Ammonia Total Protein Albumin <Celia Wing - Last Filed: 02/04/18 19:15> - Labs CBC & Chem 7: 02/05/18 06:25 02/05/18 06:25 Laboratory Results - last 24 hr 02/04/18 02/04/18 02/05/18 13:16 17:09 00:56 WBC RBC Hgb Hct MCV MCH MCHC RDW Plt Count MPV Neut % (Auto) Lymph % (Auto) [place] % (Auto) Eos % (Auto) Baso % (Auto) Neut # (Auto) Lymph # (Auto) [place] # (Auto) Eos # (Auto) Baso # (Auto) WBC Differential Differential Comment Sodium Potassium Chloride Carbon Dioxide Anion Gap BUN Creatinine Estimated GFR POC Glucose 144 H 137 H 113 H Random Glucose Calcium Magnesium Total Bilirubin AST ALT Alkaline Phosphatase Ammonia Total Protein Albumin 02/05/18 02/05/18 02/05/18 06:25 06:25 06:25 WBC 8.6 RBC 2.91 L Hgb 7.7 L Hct 23.0 L MCV 79.1 L MCH 26.5 L MCHC 33.5 RDW 19.4 H Plt Count 121 L D MPV 8.8 Neut % (Auto) 69.7 Lymph % (Auto) 8.8 L [place] % (Auto) 17.4 H Eos % (Auto) 3.1 Baso % (Auto) 1.0 Neut # (Auto) 6.0 Lymph # (Auto) 0.8 L [place] # (Auto) 1.5 H Eos # (Auto) 0.3 Baso # (Auto) 0.1 WBC Differential . Differential Comment Auto diff final Sodium 141 Potassium 3.6 Chloride 105 Carbon Dioxide 28.8 Anion Gap 7 BUN 6 L Creatinine 0.74 Estimated GFR Greater than 89 POC Glucose Random Glucose 126 H Calcium 8.2 L Magnesium 1.7 Total Bilirubin 1.3 H AST 57 H ALT 26 Alkaline Phosphatase 186 H Ammonia 43 H Total Protein 6.7 D Albumin 2.5 L 02/05/18 06:54 WBC RBC Hgb Hct MCV MCH MCHC RDW Plt Count MPV Neut % (Auto) Lymph % (Auto) [place] % (Auto) Eos % (Auto) Baso % (Auto) Neut # (Auto) Lymph # (Auto) [place] # (Auto) Eos # (Auto) Baso # (Auto) WBC Differential Differential Comment Sodium Potassium Chloride Carbon Dioxide Anion Gap BUN Creatinine Estimated GFR POC Glucose 138 H Random Glucose Calcium Magnesium Total Bilirubin AST ALT Alkaline Phosphatase Ammonia Total Protein Albumin <Richy Zarco - Last Filed: 02/05/18 12:09> Assessment and Plan - Plan Assessment: - Ingestion of foreign body- CT scan reports metallic foreign body in the mid transverse colon without evidence for colitis or perforation at this time. Patient reports that he thinks he swallowed part of his filling, states that he was eating a sandwich and he felt his tooth break off. - Nausea/vomiting with question of hematemesis Patient reports nausea and vomiting persistently for the past 2 days. He does report bright red blood mixed in his emesis, states that he thinks it is from his teeth extraction done 2 days ago. Exam does not reveal any active bleeding in his oral cavity. Patient also reports abdominal pain that has been persistent for the past day and a half, unable to describe the pain. Patient states that pain is worse after taking naltrexone. Despite naltrexone, patient continues to drink alcohol. He states that he had 2 beers yesterday. Pt also reports significant Ibuprofen use until less than a month ago when he was advised by his PCP to stop. Previously seen by our service for upper GIB, did have noted esophageal varices, however no active bleeding and the bleeding was actually noted to be likely secondary to Yanci-Hutton tear. EGD (11/14/17) class a esophagitis noted, scar of previous banding noted. Multiple large ulcers were found in the pylorus, biopsies taken. Normal duodenal mucosa in the duodenal bulb, second part of duodenum and third part of duodenum. 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 There is no ascites although there is diffuse mesenteric edema. This is particularly prominent near the fourth portion of the duodenum. Suspect this is dependent mesenteric edema rather than duodenitis. Pt continues to drink alcohol despite being on Naltrexone 01/17/2018 01/16/2018 EGD revealed the following findings: 1. Esophageal varices - grade 2 sp banding -4 band applied gastritis antrum-biopsy 2. Retroflexed views revealed a hiatal hernia Denies any active bleeding noted. Hemoglobin 11.3 hematocrit 33.7 platelet count 68 01/30/2018 -NG tube placement -GI notified to assist with insertion of NG tube for medications and nutrition -Multiple attempts made-unsuccessful -01/30/2018 hemoglobin 10.1 hematocrit 30.6-stable -01/16/2018 EGD revealed the following findings: 1. Esophageal varices - grade 2 sp banding -4 band applied gastritis antrum-biopsy 2. Retroflexed views revealed a hiatal hernia 02/04/2018 GI notified to evaluate patient for hemoglobin 6.9 hematocrit 20.7 Patient denies any noted bleeding. Per bedside RN no obvious bleeding noted. Patient states declining acceptance of blood products due to being [employer] Denies any heartburn or epigastric pain. Plan -N.p.o. after midnight -Obtain consent for EGD -Continue PPI -Hold Lovenox on 02/05/2018 am dose -Continue antiemetic -Supportive care -Further recommendations to follow This patient has been seen by myself and Dr. Zarco and this note is written on his behalf - Attending Attestation Dr. zarco <Celia Wing - Last Filed: 02/04/18 19:15> - Attending Attestation Seen and examined, plan as above. Known to us from recent UGI bleeding, will plan second look EGD. Further recommendations to follow. <Richy Zarco - Last Filed: 02/05/18 12:09>
[2018-02-05] MEDS: Oral Hygiene Kit OROPHARYNG SCH ×4 (00:58→15:13)
[2018-02-05] MEDS: Insulin NovoLOG Aspart Correctional Sugar Inj SQ SCH ×4 (00:58→17:47)
[2018-02-05 06:42] LABS: Baso # (Auto) 0.1 th/mm3 (0.0-0.2); Eos # (Auto) 0.3 th/mm3 (0.0-0.4); Eos % (Auto) 3.1 % (0.0-4.0); Hemoglobin 7.7 gm/dL (13.0-17.0); Lymph # (Auto) 0.8 th/mm3 (1.0-4.8); Lymph % (Auto) 8.8 % (9.0-44.0); Mean Corpuscular HGB Conc 33.5 % (32.0-36.0); Mean Corpuscular Hemoglobin 26.5 pg (27.0-34.0); Mean Corpuscular Volume 79.1 fL (80.0-100.0); Mean Platelet Volume 8.8 fL (7.0-11.0); Mono # (Auto) 1.5 th/mm3 (0.0-0.9); Mono % (Auto) 17.4 % (0.0-8.0); Neut % (Auto) 69.7 % (16.0-70.0); Platelet Count 121 th/mm3 (150-450); Red Blood Count 2.91 mil/mm3 (4.50-5.90); Red Cell Distribution Width 19.4 % (11.6-17.2); White Blood Count 8.6 th/mm3 (4.0-11.0)
[2018-02-05] MEDS: Artificial Tears Opth Drops 15 ML Bottle EACH EYE SCH ×3 (06:56→22:54)
[2018-02-05 07:09] LABS: Alanine Aminotransferase 26 U/L (12-78)
[2018-02-05 07:12] LABS: Alkaline Phosphatase 186 U/L (45-117); Total Protein 6.7 g/dL (6.4-8.2)
[2018-02-05 07:24] LABS: Albumin 2.5 g/dL (3.4-5.0); Anion Gap 7 meq/L (5-15); Aspartate Aminotransferase 57 U/L (15-37); Blood Urea Nitrogen 6 mg/dL (7-18); Calcium 8.2 mg/dL (8.5-10.1); Carbon Dioxide 28.8 meq/L (21.0-32.0); Chloride 105 meq/L (98-107); Glomerular Filtration Rate Greater Than 89 mL/min (>89); Glucose,Random 126 mg/dL (74-106); Magnesium 1.7 mg/dL (1.5-2.5); Potassium 3.6 meq/L (3.5-5.1); Sodium 141 meq/L (136-145)
[2018-02-05] MEDS ORDERED: Metoprolol Tartrate 25 MG Tablet PO ONE (08:45)
[2018-02-05] MEDS ORDERED: Chlorhexidine Gluconate 2% 1 Pack (2 Cloths) TOPICAL ONE (08:45)
[2018-02-05] MEDS ORDERED: Sodium Chlor 0.9% Inj 500 ML IV.CONT ONE (08:45)
[2018-02-05] MEDS: Senna/Docusate Sodium 8.6/50 MG Tablet PO SCH ×2 (08:46→22:53)
[2018-02-05] MEDS: Multivit/Folic Acid/Minerals Chewable Tablets CHEW SCH (08:46)
[2018-02-05] MEDS: rifAXIMin 550 MG Tablet PO SCH ×2 (08:46→22:53)
[2018-02-05] MEDS: Propranolol 40 MG Tablet PO SCH ×2 (08:46→22:52)
[2018-02-05] MEDS: Pantoprazole Inj 40 MG Vial IV.PUSH SCH ×2 (08:47→22:53)
[2018-02-05] MEDS: Sodium Chloride 0.9% 2 ML Flush BID IV.FLUSH SCH ×2 (08:47→22:52)
[2018-02-05] MEDS: Chlorhexidine 0.12% Oral Kit 15 ML UDC OROPHARYNG SCH ×2 (08:47→22:50)
[2018-02-05] MEDS: Ferrous Sulfate 325 MG Tablet PO SCH ×2 (11:14→17:47)
--- NOTE | 2018-02-05 12:04 | GIPROC ---
[facility] [address] [facility]. [facility], [id number] EGD PROCEDURE REPORT EXAM DATE: 02/05/2018 PATIENT NAME: Noe Koroma MR #: [id number] BIRTHDATE: 1965 ATTENDING: Richy Montoya MD ORDER #: [id number] ADMITTING OFFICER: Isaac Hogan and Shelly Emerson STATUS: inpatient INDICATIONS: The patient is a 52 yr old male here for an EGD due to occult blood positive PROCEDURE PERFORMED: EGD, diagnostic MEDICATIONS: Per Anesthesia and None. TOPICAL ANESTHETIC: none CONSENT: The patient understands the risks and benefits of the procedure and understands that these risks include, but are not limited to: sedation, allergic reaction, infection, perforation and/or bleeding. Alternative means of evaluation and treatment include, among others: physical exam, x-rays, and/or surgical intervention. The patient elects to proceed with this endoscopic procedure. medical equipment was checked for proper function. Hand hygiene and appropriate measures for infection prevention was taken. After the risks, benefits and alternatives of the procedure were thoroughly explained, Informed consent was verified, confirmed and timeout was successfully executed by the treatment team. The patient was anesthetized with topical anesthesia and the Pentax [id number] endoscope was introduced through the mouth and advanced to the second portion of the duodenum. Retroflexion was performed and was normal The gastroscope was then slowly withdrawn and removed. ESOPHAGUS: Multiple medium sized non-bleeding, round and clean-based ulcers were found in the distal esophagus. STOMACH: Moderate portal hypertensive gastropathy was found in the entire examined stomach. DUODENUM: The duodenal mucosa appeared normal. ADVERSE EVENTS: There were no complications. IMPRESSIONS: 1. Multiple medium sized ulcers were found in the distal esophagus , from recent banding, normal finding after recent banding, no active or recent bleeding. 2. Portal hypertensive gastropathy was found in the entire examined stomach 3. Normal duodenal mucosa 4. Retroflexion was performed and was normal RECOMMENDATIONS: 1. Continue PPI 2. Hematocrit PATIENT CONDITION: stable DISPOSITION: Observation REPEAT EXAM: NONE Richy Montoya MD eSigned: Richy Montoya MD 02/05/2018 12:04 PM cc: PATIENT NAME: Noe Koroma MR#: [id number]
--- NOTE | 2018-02-05 14:32 | P.PNFP ---
Subjective Interval history: Patient seen and examined today following EGD. Reports he is told that there is nothing they had to cauterize. Patient denies nausea, vomiting, hematemesis. Patient reports that he has had soft brown stool throughout his stay, denies having had dark stools although he stated this yesterday. Reports some mild lightheadedness. States he continues to refuse blood products, however will accept volume expanders. Denies fever, chills, chest pain, shortness of breath, lightheadedness. <Florian Campbell - 02/05/18 16:28> Results - Labs Result diagrams: 02/06/18 05:18 02/06/18 05:18 <Ajit Correia - 02/06/18 13:07> Abnormal lab results 02/05/18 02/06/18 02/06/18 Range/Units 17:47 01:05 05:18 RBC 3.29 L (4.50-5.90) mil/mm3 Hgb 8.7 L (13.0-17.0) gm/dL Hct 26.2 L (39.0-51.0) % MCV 79.4 L (80.0-100.0) fL MCH 26.3 L (27.0-34.0) pg RDW 19.8 H (11.6-17.2) % Plt Count 131 L (150-450) th/mm3 Neut % (Auto) 71.0 H (16.0-70.0) % Lymph % (Auto) 8.7 L (9.0-44.0) % Wood % (Auto) 18.8 H (0.0-8.0) % Lymph # (Auto) 0.9 L (1.0-4.8) th/mm3 Wood # (Auto) 1.9 H (0.0-0.9) th/mm3 Potassium (3.5-5.1) meq/L POC Glucose 168 H 152 H (68-110) mg/dl Random Glucose (74-106) mg/dL Total Bilirubin (0.2-1.0) mg/dL AST (15-37) U/L Alkaline Phosphatase (45-117) U/L Ammonia (11-32) mcmol/L Albumin (3.4-5.0) g/dL 11/02/06/18 02/06/18 Range/Units 05:18 05:18 05:42 RBC (4.50-5.90) mil/mm3 Hgb (13.0-17.0) gm/dL Hct (39.0-51.0) % MCV (80.0-100.0) fL MCH (27.0-34.0) pg RDW (11.6-17.2) % Plt Count (150-450) th/mm3 Neut % (Auto) (16.0-70.0) % Lymph % (Auto) (9.0-44.0) % Wood % (Auto) (0.0-8.0) % Lymph # (Auto) (1.0-4.8) th/mm3 Wood # (Auto) (0.0-0.9) th/mm3 Potassium 3.2 L (3.5-5.1) meq/L POC Glucose 196 H (68-110) mg/dl Random Glucose 161 H (74-106) mg/dL Total Bilirubin 1.5 H (0.2-1.0) mg/dL AST 47 H (15-37) U/L Alkaline Phosphatase 198 H (45-117) U/L Ammonia 86 H (11-32) mcmol/L Albumin 2.7 L (3.4-5.0) g/dL 02/06/18 Range/Units 12:15 RBC (4.50-5.90) mil/mm3 Hgb (13.0-17.0) gm/dL Hct (39.0-51.0) % MCV (80.0-100.0) fL MCH (27.0-34.0) pg RDW (11.6-17.2) % Plt Count (150-450) th/mm3 Neut % (Auto) (16.0-70.0) % Lymph % (Auto) (9.0-44.0) % Wood % (Auto) (0.0-8.0) % Lymph # (Auto) (1.0-4.8) th/mm3 Wood # (Auto) (0.0-0.9) th/mm3 Potassium (3.5-5.1) meq/L POC Glucose 182 H (68-110) mg/dl Random Glucose (74-106) mg/dL Total Bilirubin (0.2-1.0) mg/dL AST (15-37) U/L Alkaline Phosphatase (45-117) U/L Ammonia (11-32) mcmol/L Albumin (3.4-5.0) g/dL Short CBC 02/06/18 Range/Units 05:18 WBC 10.2 (4.0-11.0) th/mm3 Hgb 8.7 L (13.0-17.0) gm/dL Hct 26.2 L (39.0-51.0) % Plt Count 131 L (150-450) th/mm3 BMP 02/06/18 05:18 Sodium 137 Potassium 3.2 L Chloride 99 Carbon Dioxide 31.1 BUN 7 Creatinine 0.82 Calcium 8.5 Liver Function 02/06/18 Range/Units 05:18 Total Bilirubin 1.5 H (0.2-1.0) mg/dL AST 47 H (15-37) U/L ALT 24 (12-78) U/L Alkaline Phosphatase 198 H (45-117) U/L Albumin 2.7 L (3.4-5.0) g/dL <Ajit Correia R - 02/06/18 13:07> Abnormal lab results 02/04/18 02/05/18 02/05/18 Range/Units 17:09 00:56 06:25 RBC 2.91 L (4.50-5.90) mil/mm3 Hgb 7.7 L (13.0-17.0) gm/dL Hct 23.0 L (39.0-51.0) % MCV 79.1 L (80.0-100.0) fL MCH 26.5 L (27.0-34.0) pg RDW 19.4 H (11.6-17.2) % Plt Count 121 L D (150-450) th/mm3 Lymph % (Auto) 8.8 L (9.0-44.0) % Wood % (Auto) 17.4 H (0.0-8.0) % Lymph # (Auto) 0.8 L (1.0-4.8) th/mm3 Wood # (Auto) 1.5 H (0.0-0.9) th/mm3 BUN (7-18) mg/dL POC Glucose 137 H 113 H (68-110) mg/dl Random Glucose (74-106) mg/dL Calcium (8.5-10.1) mg/dL Total Bilirubin (0.2-1.0) mg/dL AST (15-37) U/L Alkaline Phosphatase (45-117) U/L Ammonia (11-32) mcmol/L Albumin (3.4-5.0) g/dL 02/05/18 02/05/18 02/05/18 Range/Units 06:25 06:25 06:54 RBC (4.50-5.90) mil/mm3 Hgb (13.0-17.0) gm/dL Hct (39.0-51.0) % MCV (80.0-100.0) fL MCH (27.0-34.0) pg RDW (11.6-17.2) % Plt Count (150-450) th/mm3 Lymph % (Auto) (9.0-44.0) % Wood % (Auto) (0.0-8.0) % Lymph # (Auto) (1.0-4.8) th/mm3 Wood # (Auto) (0.0-0.9) th/mm3 BUN 6 L (7-18) mg/dL POC Glucose 138 H (68-110) mg/dl Random Glucose 126 H (74-106) mg/dL Calcium 8.2 L (8.5-10.1) mg/dL Total Bilirubin 1.3 H (0.2-1.0) mg/dL AST 57 H (15-37) U/L Alkaline Phosphatase 186 H (45-117) U/L Ammonia 43 H (11-32) mcmol/L Albumin 2.5 L (3.4-5.0) g/dL 02/05/18 Range/Units 12:35 RBC (4.50-5.90) mil/mm3 Hgb (13.0-17.0) gm/dL Hct (39.0-51.0) % MCV (80.0-100.0) fL MCH (27.0-34.0) pg RDW (11.6-17.2) % Plt Count (150-450) th/mm3 Lymph % (Auto) (9.0-44.0) % Wood % (Auto) (0.0-8.0) % Lymph # (Auto) (1.0-4.8) th/mm3 Wood # (Auto) (0.0-0.9) th/mm3 BUN (7-18) mg/dL POC Glucose 143 H (68-110) mg/dl Random Glucose (74-106) mg/dL Calcium (8.5-10.1) mg/dL Total Bilirubin (0.2-1.0) mg/dL AST (15-37) U/L Alkaline Phosphatase (45-117) U/L Ammonia (11-32) mcmol/L Albumin (3.4-5.0) g/dL Short CBC 02/05/18 Range/Units 06:25 WBC 8.6 (4.0-11.0) th/mm3 Hgb 7.7 L (13.0-17.0) gm/dL Hct 23.0 L (39.0-51.0) % Plt Count 121 L D (150-450) th/mm3 BMP 02/05/18 06:25 Sodium 141 Potassium 3.6 Chloride 105 Carbon Dioxide 28.8 BUN 6 L Creatinine 0.74 Calcium 8.2 L Liver Function 02/05/18 Range/Units 06:25 Total Bilirubin 1.3 H (0.2-1.0) mg/dL AST 57 H (15-37) U/L ALT 26 (12-78) U/L Alkaline Phosphatase 186 H (45-117) U/L Albumin 2.5 L (3.4-5.0) g/dL <Florian Campbell A - 02/05/18 14:32> Physical Exam Vital signs: Vital Signs 02/05/18 16:00 02/05/18 17:45 02/05/18 20:00 Temperature 99.3 F 98.6 F Pulse Rate 82 88 Respiratory Rate 18 19 Blood Pressure 139/77 129/61 Pulse Oximetry 94 L 94 L 97 02/06/18 00:00 02/06/18 04:00 02/06/18 08:00 Temperature 100.8 F H 100.3 F H 98.3 F Pulse Rate 89 80 87 Respiratory Rate 18 19 18 Blood Pressure 122/60 132/65 115/63 Pulse Oximetry 95 95 97 02/06/18 09:40 Temperature Pulse Rate Respiratory Rate Blood Pressure Pulse Oximetry 95 Intake & Output 02/05/18 02/06/1802/06/18 18:59 06:59 18:59 Intake Total 1120 / 1120 400 / 400 Output Total 300 / 300 600 / 600 Balance 820 / 820 -200 / -200 Weight 97.9 kg Intake: IV 1000 / 1000 LR 1000 mL Inj 1,000 ML @ 30 1000 / 1000 mls/hr IV.CONT .Q24H ONE Rx#: [id number] Oral 120 / 120 400 / 400 Output: Urine 300 / 300 600 / 600 Other: # Incontinent Voids 2 Date of Last Bowel Movement 02/05/18 02/04/18 # Bowel Movements 1 <JoseshanikaAjit ventura R - 02/06/18 13:07> Vital Signs 02/04/18 16:00 02/04/18 16:42 02/04/18 20:00 Temperature 99.9 F H Pulse Rate 78 81 81 Respiratory Rate 20 Blood Pressure 110/54 L 119/60 Pulse Oximetry 98 02/05/18 00:00 02/05/18 04:00 02/05/18 08:00 Temperature 98.4 F 100.4 F H 99.3 F Pulse Rate 78 86 85 Respiratory Rate 20 18 17 Blood Pressure 109/58 L 115/60 108/70 Pulse Oximetry 97 97 98 02/05/18 12:00 Temperature 100.3 F H Pulse Rate 83 Respiratory Rate 17 Blood Pressure 127/78 Pulse Oximetry 96 Intake & Output 02/04/18 02/05/18 02/05/18 18:59 06:59 18:59 Intake Total 720 / 720 0 / 0 Output Total 1400 / 1400 850 / 850 Balance -680 / -680 -850 / -850 Weight 102.3 kg Intake: Oral 720 / 720 0 / 0 Output: Urine 1400 / 1400 850 / 850 Other: Date of Last Bowel Movement 02/04/18 # Bowel Movements 1 <Florian Campbell A - 02/05/18 14:32> Narrative: General: Well-developed, alert, and in no acute distress. Neurologic: Oriented x3 HEENT: Atraumatic, moist mucous membranes Neck: Supple, trachea midline Cardiac: Regular rate and rhythm without murmurs Pulmonary: Non-labored breathing. Lungs clear to auscultation bilaterally with good air movement Abdomen: Normal bowel sounds, soft and non-tender without rebound or guarding Extremities: No edema, 2+ pedal pulses, capillary refill less than 2 seconds <Florian Campbell - 02/05/18 16:28> - Urinary Catheter Management 400 Cath placed during this visit: no <Ajit Correia - 02/06/18 13:07> no <Florian Campbell - 02/05/18 16:28> Condom Cath placed during this visit: no <Ajit Correia - 02/06/18 13:07> no <Florian Campbell - 02/05/18 16:28> Straight Cath placed during this visit: no <Ajit Correia - 02/06/18 13:07> yes, but has since been removed by the nurse <Florian Campbell 02/05/18 16:28> Reason for continuing: Not indwelling catheter <Florian Campbell 02/05/18 14 :32> Insertion date: 01/26/18 <Florian Campbell 02/05/18 14:32> Insertion time: 17:30 <Florian Campbell 02/05/18 14:32> Removal date: 01/26/18 <Florian Campbell 02/05/18 14:32> Removal time: 17:35 <Florian Campbell 02/05/18 14:32> Assessment and Plan - Assessment (1) Abdominal pain Code(s): R10.9 - Unspecified abdominal pain Status: Resolved (2) Esophageal varices in cirrhosis Code(s): K74.60 - Unspecified cirrhosis of liver; I85.10 - Secondary esophageal varices without bleeding Status: Chronic (3) Hypertension Code(s): I10 - Essential (primary) hypertension Status: Chronic (4) Alcohol abuse Code(s): F10.10 - Alcohol abuse, uncomplicated Status: Chronic (5) Depression with anxiety Code(s): F41.8 - Other specified anxiety disorders Status: Chronic (6) Cough Code(s): R05 - Cough Status: Resolved (7) Diabetes Code(s): E11.9 - Type 2 diabetes mellitus without complications Status: Chronic (8) Deep vein thrombosis (DVT) of brachial vein Code(s): I82.629 - Acute embolism and thrombosis of deep veins of unspecified upper extremity Status: Acute (9) Chest pain Code(s): R07.9 - Chest pain, unspecified Status: Acute (10) Alcohol withdrawal Code(s): F10.239 - Alcohol dependence with withdrawal, unspecified Status: Resolved <Ajit Correia - 02/06/18 13:07> (1) Abdominal pain Code(s): R10.9 - Unspecified abdominal pain Status: Resolved (2) Esophageal varices in cirrhosis Code(s): K74.60 - Unspecified cirrhosis of liver; I85.10 - Secondary esophageal varices without bleeding Status: Chronic (3) Hypertension Code(s): I10 - Essential (primary) hypertension Status: Chronic (4) Alcohol abuse Code(s): F10.10 - Alcohol abuse, uncomplicated Status: Chronic (5) Depression with anxiety Code(s): F41.8 - Other specified anxiety disorders Status: Chronic (6) Cough Code(s): R05 - Cough Status: Resolved (7) Diabetes Code(s): E11.9 - Type 2 diabetes mellitus without complications Status: Chronic (8) Deep vein thrombosis (DVT) of brachial vein Code(s): I82.629 - Acute embolism and thrombosis of deep veins of unspecified upper extremity Status: Acute (9) Chest pain Code(s): R07.9 - Chest pain, unspecified Status: Acute (10) Alcohol withdrawal Code(s): F10.239 - Alcohol dependence with withdrawal, unspecified Status: Resolved <Florian Campbell - 02/05/18 16:21> - Assessment and Plan Patient is a 52-year-old male with medical history significant for alcoholism, cirrhosis, and esophageal varices who was admitted with esophageal varices, status post banding x4. He has had altered mental status for most of his hospitalization. He was intubated, and then extubated on 01/27. His confusion has improved significantly today. Hemoglobin dropped to 6.9, uptrending. Esophageal varices in the context of cirrhosis: -Status post banding x4. -H&H decreased 6.9 02/05, uptrending -Gastroenterology was called and examined the patient. EGD repeated without significant new bleeds -His altered mental status is likely secondary to his liver disease. We are unsure of his baseline, however he is significantly less confused now. He is now oriented x3. -Ammonia level still elevated -Continue lactulose 4 times a day and Xifaxan 550 twice daily -Continue IV Protonix BID -Propranolol 40mg BID Respiratory: He has had mild shortness of breath and cough with possible underlying asthma per pulmonology -Continue supplemental oxygen as needed -Continue CPAP as needed for shortness of breath -Continue Albuterol as needed Hypertension: Amlodipine discontinued due to borderline hypotension Bumex 0.5 mg daily Propranolol as above Hyperlipidemia: Continue home medication pravastatin 40 mg p.o. nightly Hypokalemia: -He has had some mild hypokalemia throughout his hospitalization. -Monitor and correct as needed Type 2 diabetes mellitus: -Low dose SS insulin DVT of brachial vein (right): -Last ultrasound on 01/28 was negative for DVT, DVT last seen the ultrasound on 01/19 -Decision and amount of anticoagulation is complicated due to his variceal bleed. -We are following critical care as recommendation of the Lovenox 40mg daily Alcohol withdrawal: resolved He has a significant history of alcohol abuse and had been receiving treatment at [facility]. He had not been sober at the time of admission. He was transferred to the ICU secondary to withdraw. This has now resolved and he is not currently on any benzodiazepines. Fluids: Adequate p.o. intake Electrolytes: monitor and replete as needed Nutrition:. Solids and nectar thick liquids. This is the recommendation from swallow eval GI prophylaxis: IV Protonix VTE prophylaxis: Lovenox 40mg q24 Disposition: He will need physical therapy at rehab, however he is not currently medically stable for discharge <Florian Campbell - 02/05/18 16:28> - Attending Attestation This patient was seen and evaluated with the resident physician. I agree with the plan of care as discussed with me and documented in the resident note. Ajit Correia MD <Ajit Correia - 02/06/18 13:07>
--- NOTE | 2018-02-05 17:49 | P.PNPL ---
Subjective Interval history: 52 YO male with GIB, cirrhosis Developed resp distress, agitation Extubated 01/27 Alert, awake, follows commands Had EGD done Denies sob Physical Exam Vital signs: Vital Signs 02/04/18 20:00 02/05/18 00:00 02/05/18 04:00 Temperature 99.9 F H 98.4 F 100.4 F H Pulse Rate 81 78 86 Respiratory Rate 18 Blood Pressure 119/60 109/58 L 115/60 Pulse Oximetry 98 97 97 02/05/18 08:00 02/05/18 12:00 02/05/18 16:00 Temperature 99.3 F 100.3 F H 99.3 F Pulse Rate 86 84 82 Respiratory Rate 17 18 Blood Pressure 108/70 127/78 139/77 Pulse Oximetry 98 96 94 L 02/05/18 17:45 Temperature Pulse Rate Respiratory Rate Blood Pressure Pulse Oximetry 94 L Intake & Output 02/04/18 02/05/18 02/05/18 18:59 06:59 18:59 Intake Total 720 / 720 0 / 0 Output Total 1400 / 1400 850 / 850 Balance -680 / -680 -850 / -850 Weight 102.3 kg Intake: Oral 720 / 720 0 / 0 Output: Urine 1400 / 1400 850 / 850 Other: Date of Last Bowel Movement 02/04/18 # Bowel Movements 1 GENERAL: WBWN Male, NAD SKIN: Warm and dry. HEAD: Normocephalic. EYES: No scleral icterus. No injection or drainage. NECK: Supple, trachea midline. No JVD or lymphadenopathy. CARDIOVASCULAR: Regular rate and rhythm without murmurs, gallops, or rubs. RESPIRATORY: Breath sounds equal bilaterally. No accessory muscle use. GASTROINTESTINAL: Abdomen soft, non-tender, nondistended. MUSCULOSKELETAL: No cyanosis, or edema. BACK: Nontender without obvious deformity. No CVA tenderness. - Urinary Catheter Management Straight Cath placed during this visit: yes, but has since been removed by the nurse Reason for continuing: Not indwelling catheter Insertion date: 01/26/18 Insertion time: 17:30 Removal date: 01/26/18 Removal time: 17:35 Condom Cath placed during this visit: no 400 Cath placed during this visit: no Assessment and Plan - Plan IMPRESSION: 1. Mild shortness of breath and cough, possibly underlying asthma. 2. Hypertension. 3. Diabetes mellitus. 4. Cirrhosis of the liver. 5. VDRF, s/p extubation 01/27 6. Encephalopathy. PLAN: Depakote 500 mg daily Monitor Ammonia level. Stable on RA Aerosol nebs SQ Lovenox
[2018-02-06] MEDS: Insulin NovoLOG Aspart Correctional Sugar Inj SQ SCH ×4 (01:32→17:51)
[2018-02-06] MEDS: Oral Hygiene Kit OROPHARYNG SCH ×4 (01:32→15:48)
[2018-02-06 06:07] LABS: Baso % (Auto) 0.5 % (0.0-2.0); Eos # (Auto) 0.1 th/mm3 (0.0-0.4); Hematocrit 26.2 % (39.0-51.0); Hemoglobin 8.7 gm/dL (13.0-17.0); Lymph # (Auto) 0.9 th/mm3 (1.0-4.8); Lymph % (Auto) 8.7 % (9.0-44.0); Mean Corpuscular HGB Conc 33.1 % (32.0-36.0); Mean Corpuscular Hemoglobin 26.3 pg (27.0-34.0); Mean Corpuscular Volume 79.4 fL (80.0-100.0); Mean Platelet Volume 8.6 fL (7.0-11.0); Mono # (Auto) 1.9 th/mm3 (0.0-0.9); Mono % (Auto) 18.8 % (0.0-8.0); Neut # (Auto) 7.2 th/mm3 (1.8-7.7); Platelet Count 131 th/mm3 (150-450); Red Blood Count 3.29 mil/mm3 (4.50-5.90); Red Cell Distribution Width 19.8 % (11.6-17.2); White Blood Count 10.2 th/mm3 (4.0-11.0)
[2018-02-06] MEDS: Artificial Tears Opth Drops 15 ML Bottle EACH EYE SCH ×3 (06:20→21:36)
[2018-02-06 06:44] LABS: Albumin 2.7 g/dL (3.4-5.0); Anion Gap 7 meq/L (5-15); Aspartate Aminotransferase 47 U/L (15-37); Blood Urea Nitrogen 7 mg/dL (7-18); Calcium 8.5 mg/dL (8.5-10.1); Carbon Dioxide 31.1 meq/L (21.0-32.0); Chloride 99 meq/L (98-107); Glomerular Filtration Rate Greater Than 89 mL/min (>89); Glucose,Random 161 mg/dL (74-106); Potassium 3.2 meq/L (3.5-5.1); Sodium 137 meq/L (136-145)
[2018-02-06 06:45] LABS: Alanine Aminotransferase 24 U/L (12-78)
[2018-02-06 06:48] LABS: Alkaline Phosphatase 198 U/L (45-117); Total Protein 6.9 g/dL (6.4-8.2)
[2018-02-06] MEDS: rifAXIMin 550 MG Tablet PO SCH ×2 (09:42→21:33)
[2018-02-06] MEDS: Propranolol 40 MG Tablet PO SCH ×2 (09:42→21:33)
[2018-02-06] MEDS: Pantoprazole Inj 40 MG Vial IV.PUSH SCH ×2 (09:42→21:34)
[2018-02-06] MEDS: Multivit/Folic Acid/Minerals Chewable Tablets CHEW SCH (09:42)
[2018-02-06] MEDS: Sodium Chloride 0.9% 2 ML Flush BID IV.FLUSH SCH ×2 (09:42→21:34)
[2018-02-06] MEDS: Chlorhexidine 0.12% Oral Kit 15 ML UDC OROPHARYNG SCH ×2 (09:42→21:28)
[2018-02-06] MEDS: Senna/Docusate Sodium 8.6/50 MG Tablet PO SCH ×2 (09:43→21:34)
--- NOTE | 2018-02-06 10:36 | P.PNFP ---
Subjective Interval history: Patient seen and examined this morning. No acute events overnight. Patient reports he has had no nausea and has not been vomiting. No hematemesis. Reports he has been having normal bowel movements, soft, brown, no black or blood in it. He reports he has been refusing his lactulose as it may have been making stool slightly loose. He continues to endorse some slight lightheadedness. Denies fever, chills, chest pain, abdominal pain, constipation , diarrhea, any sources of bleeding. <Florian Campbell - 02/06/18 10:36> Results - Labs Result diagrams: 02/06/18 05:18 02/06/18 05:18 <Ajit Correia - 02/06/18 13:10> Abnormal lab results 02/05/18 02/06/18 02/06/18 Range/Units 17:47 01:05 05:18 RBC 3.29 L (4.50-5.90) mil/mm3 Hgb 8.7 L (13.0-17.0) gm/dL Hct 26.2 L (39.0-51.0) % MCV 79.4 L (80.0-100.0) fL MCH 26.3 L (27.0-34.0) pg RDW 19.8 H (11.6-17.2) % Plt Count 131 L (150-450) th/mm3 Neut % (Auto) 71.0 H (16.0-70.0) % Lymph % (Auto) 8.7 L (9.0-44.0) % [place] % (Auto) 18.8 H (0.0-8.0) % Lymph # (Auto) 0.9 L (1.0-4.8) th/mm3 [place] # (Auto) 1.9 H (0.0-0.9) th/mm3 Potassium (3.5-5.1) meq/L POC Glucose 168 H 152 H (68-110) mg/dl Random Glucose (74-106) mg/dL Total Bilirubin (0.2-1.0) mg/dL AST (15-37) U/L Alkaline Phosphatase (45-117) U/L Ammonia (11-32) mcmol/L Albumin (3.4-5.0) g/dL 02/06/18 02/06/18 02/06/18 Range/Units 05:18 05:18 05:42 RBC (4.50-5.90) mil/mm3 Hgb (13.0-17.0) gm/dL Hct (39.0-51.0) % MCV (80.0-100.0) fL MCH (27.0-34.0) pg RDW (11.6-17.2) % Plt Count (150-450) th/mm3 Neut % (Auto) (16.0-70.0) % Lymph % (Auto) (9.0-44.0) % [place] % (Auto) (0.0-8.0) % Lymph # (Auto) (1.0-4.8) th/mm3 [place] # (Auto) (0.0-0.9) th/mm3 Potassium 3.2 L (3.5-5.1) meq/L POC Glucose 196 H (68-110) mg/dl Random Glucose 161 H (74-106) mg/dL Total Bilirubin 1.5 H (0.2-1.0) mg/dL AST 47 H (15-37) U/L Alkaline Phosphatase 198 H (45-117) U/L Ammonia 86 H (11-32) mcmol/L Albumin 2.7 L (3.4-5.0) g/dL 02/06/18 Range/Units 12:15 RBC (4.50-5.90) mil/mm3 Hgb (13.0-17.0) gm/dL Hct (39.0-51.0) % MCV (80.0-100.0) fL MCH (27.0-34.0) pg RDW (11.6-17.2) % Plt Count (150-450) th/mm3 Neut % (Auto) (16.0-70.0) % Lymph % (Auto) (9.0-44.0) % [place] % (Auto) (0.0-8.0) % Lymph # (Auto) (1.0-4.8) th/mm3 [place] # (Auto) (0.0-0.9) th/mm3 Potassium (3.5-5.1) meq/L POC Glucose 182 H (68-110) mg/dl Random Glucose (74-106) mg/dL Total Bilirubin (0.2-1.0) mg/dL AST (15-37) U/L Alkaline Phosphatase (45-117) U/L Ammonia (11-32) mcmol/L Albumin (3.4-5.0) g/dL Short CBC 02/06/18 Range/Units 05:18 WBC 10.2 (4.0-11.0) th/mm3 Hgb 8.7 L (13.0-17.0) gm/dL Hct 26.2 L (39.0-51.0) % Plt Count 131 L (150-450) th/mm3 BMP 02/06/18 05:18 Sodium 137 Potassium 3.2 L Chloride 99 Carbon Dioxide 31.1 BUN 7 Creatinine 0.82 Calcium 8.5 Liver Function 02/06/18 Range/Units 05:18 Total Bilirubin 1.5 H (0.2-1.0) mg/dL AST 47 H (15-37) U/L ALT 24 (12-78) U/L Alkaline Phosphatase 198 H (45-117) U/L Albumin 2.7 L (3.4-5.0) g/dL <Ajit Correia R - 02/06/18 13:10> Abnormal lab results 02/05/18 02/05/18 02/06/18 Range/Units 12:35 17:47 01:05 RBC (4.50-5.90) mil/mm3 Hgb (13.0-17.0) gm/dL Hct (39.0-51.0) % MCV (80.0-100.0) fL MCH (27.0-34.0) pg RDW (11.6-17.2) % Plt Count (150-450) th/mm3 Neut % (Auto) (16.0-70.0) % Lymph % (Auto) (9.0-44.0) % [place] % (Auto) (0.0-8.0) % Lymph # (Auto) (1.0-4.8) th/mm3 [place] # (Auto) (0.0-0.9) th/mm3 Potassium (3.5-5.1) meq/L POC Glucose 143 H 168 H 152 H (68-110) mg/dl Random Glucose (74-106) mg/dL Total Bilirubin (0.2-1.0) mg/dL AST (15-37) U/L Alkaline Phosphatase (45-117) U/L Ammonia (11-32) mcmol/L Albumin (3.4-5.0) g/dL 02/06/18 02/06/18 02/06/18 Range/Units 05:18 05:18 05:18 RBC 3.29 L (4.50-5.90) mil/mm3 Hgb 8.7 L (13.0-17.0) gm/dL Hct 26.2 L (39.0-51.0) % MCV 79.4 L (80.0-100.0) fL MCH 26.3 L (27.0-34.0) pg RDW 19.8 H (11.6-17.2) % Plt Count 131 L (150-450) th/mm3 Neut % (Auto) 71.0 H (16.0-70.0) % Lymph % (Auto) 8.7 L (9.0-44.0) % [place] % (Auto) 18.8 H (0.0-8.0) % Lymph # (Auto) 0.9 L (1.0-4.8) th/mm3 [place] # (Auto) 1.9 H (0.0-0.9) th/mm3 Potassium 3.2 L (3.5-5.1) meq/L POC Glucose (68-110) mg/dl Random Glucose 161 H (74-106) mg/dL Total Bilirubin 1.5 H (0.2-1.0) mg/dL AST 47 H (15-37) U/L Alkaline Phosphatase 198 H (45-117) U/L Ammonia 86 H (11-32) mcmol/L Albumin 2.7 L (3.4-5.0) g/dL 02/06/18 Range/Units 05:42 RBC (4.50-5.90) mil/mm3 Hgb (13.0-17.0) gm/dL Hct (39.0-51.0) % MCV (80.0-100.0) fL MCH (27.0-34.0) pg RDW (11.6-17.2) % Plt Count (150-450) th/mm3 Neut % (Auto) (16.0-70.0) % Lymph % (Auto) (9.0-44.0) % [place] % (Auto) (0.0-8.0) % Lymph # (Auto) (1.0-4.8) th/mm3 [place] # (Auto) (0.0-0.9) th/mm3 Potassium (3.5-5.1) meq/L POC Glucose 196 H (68-110) mg/dl Random Glucose (74-106) mg/dL Total Bilirubin (0.2-1.0) mg/dL AST (15-37) U/L Alkaline Phosphatase (45-117) U/L Ammonia (11-32) mcmol/L Albumin (3.4-5.0) g/dL Short CBC 02/06/18 Range/Units 05:18 WBC 10.2 (4.0-11.0) th/mm3 Hgb 8.7 L (13.0-17.0) gm/dL Hct 26.2 L (39.0-51.0) % Plt Count 131 L (150-450) th/mm3 BMP 02/06/18 05:18 Sodium 137 Potassium 3.2 L Chloride 99 Carbon Dioxide 31.1 BUN 7 Creatinine 0.82 Calcium 8.5 Liver Function 02/06/18 Range/Units 05:18 Total Bilirubin 1.5 H (0.2-1.0) mg/dL AST 47 H (15-37) U/L ALT 24 (12-78) U/L Alkaline Phosphatase 198 H (45-117) U/L Albumin 2.7 L (3.4-5.0) g/dL <Florian Campbell A - 02/06/18 10:36> Physical Exam Vital signs: Vital Signs 02/05/18 16:00 02/05/18 17:45 02/05/18 20:00 Temperature 99.3 F 98.6 F Pulse Rate 82 88 Respiratory Rate 18 19 Blood Pressure 139/77 129/61 Pulse Oximetry 94 L 94 L 97 02/06/18 00:00 02/06/18 04:00 02/06/18 08:00 Temperature 100.8 F H 100.3 F H 98.3 F Pulse Rate 89 80 87 Respiratory Rate 18 19 18 Blood Pressure 122/60 132/65 115/63 Pulse Oximetry 95 95 97 02/06/18 09:40 Temperature Pulse Rate Respiratory Rate Blood Pressure Pulse Oximetry 95 Intake & Output 02/05/18 02/06/18 02/06/18 18:59 06:59 18:59 Intake Total 1120 / 1120 400 / 400 Output Total 300 / 300 600 / 600 Balance 820 / 820 -200 / -200 Weight 97.9 kg Intake: IV 1000 / 1000 LR 1000 mL Inj 1,000 ML @ 30 1000 / 1000 mls/hr IV.CONT .Q24H ONE Rx#: [id number] Oral 120 / 120 400 / 400 Output: Urine 300 / 300 600 / 600 Other: # Incontinent Voids 2 Date of Last Bowel Movement 02/05/18 02/04/18 # Bowel Movements 1 <Ajit Correia R - 02/06/18 13:10> Vital Signs 02/05/18 12:00 02/05/18 16:00 02/05/18 17:45 Temperature 100.3 F H 99.3 F Pulse Rate 84 82 Respiratory Rate 17 18 Blood Pressure 127/78 139/77 Pulse Oximetry 96 94 L 94 L 02/05/18 20:00 02/06/18 00:00 02/06/18 04:00 Temperature 98.6 F 100.8 F H 100.3 F H Pulse Rate 88 89 80 Respiratory Rate 19 18 19 Blood Pressure 129/61 122/60 132/65 Pulse Oximetry 97 95 95 02/06/18 08:00 02/06/18 09:40 Temperature 98.3 F Pulse Rate 85 Respiratory Rate 18 Blood Pressure 115/63 Pulse Oximetry 97 95 Intake & Output 02/05/18 02/06/18 02/06/18 18:59 06:59 18:59 Intake Total 1120 / 1120 400 / 400 Output Total 300 / 300 600 / 600 Balance 820 / 820 -200 / -200 Weight 97.9 kg Intake: IV 1000 / 1000 LR 1000 mL Inj 1,000 ML @ 30 1000 / 1000 mls/hr IV.CONT .Q24H ONE Rx#: [id number] Oral 120 / 120 400 / 400 Output: Urine 300 / 300 600 / 600 Other: # Incontinent Voids 2 Date of Last Bowel Movement 02/05/18 02/04/18 # Bowel Movements 1 <Florian Campbell A - 02/06/18 10:36> Narrative: General: Well-developed, alert, and in no acute distress. Neurologic: Oriented x3 HEENT: Atraumatic, moist mucous membranes Neck: Supple, trachea midline Cardiac: Regular rate and rhythm without murmurs Pulmonary: Non-labored breathing. Lungs clear to auscultation bilaterally with good air movement Abdomen: Normal bowel sounds, soft and non-tender without rebound or guarding Extremities: No edema, 2+ pedal pulses, capillary refill less than 2 seconds <Florian Campbell 02/06/18 10:36> - Urinary Catheter Management 400 Cath placed during this visit: no <Ajit Correia - 02/06/18 13:10> no <Florian Campbell - 02/06/18 10:36> Condom Cath placed during this visit: no <Ajit Correia 02/06/18 13:10> no <Florian Campbell - 02/06/18 10:36> Straight Cath placed during this visit: no <Ajit Correia 02/06/18 13:10> yes, but has since been removed by the nurse <Florian Campbell 02/06/18 10:36> Reason for continuing: Not indwelling catheter <Florian Campbell 02/06/18 10 :36> Insertion date: 01/26/18 <Florian Campbell 02/06/18 10:36> Insertion time: 17:30 <Florian Campbell - 02/06/18 10:36> Removal date: 01/26/18 <Florian Campbell 02/06/18 10:36> Removal time: 17:35 <Florian Campbell 02/06/18 10:36> Assessment and Plan - Assessment (1) Abdominal pain Code(s): R10.9 - Unspecified abdominal pain Status: Resolved (2) Esophageal varices in cirrhosis Code(s): K74.60 - Unspecified cirrhosis of liver; I85.10 - Secondary esophageal varices without bleeding Status: Chronic (3) Hypertension Code(s): I10 - Essential (primary) hypertension Status: Chronic (4) Alcohol abuse Code(s): F10.10 - Alcohol abuse, uncomplicated Status: Chronic (5) Depression with anxiety Code(s): F41.8 - Other specified anxiety disorders Status: Chronic (6) Cough Code(s): R05 - Cough Status: Resolved (7) Diabetes Code(s): E11.9 - Type 2 diabetes mellitus without complications Status: Chronic (8) Deep vein thrombosis (DVT) of brachial vein Code(s): I82.629 - Acute embolism and thrombosis of deep veins of unspecified upper extremity Status: Acute (9) Chest pain Code(s): R07.9 - Chest pain, unspecified Status: Acute (10) Alcohol withdrawal Code(s): F10.239 - Alcohol dependence with withdrawal, unspecified Status: Resolved <Ajit Correia R - 02/06/18 13:10> (1) Abdominal pain Code(s): R10.9 - Unspecified abdominal pain Status: Resolved (2) Esophageal varices in cirrhosis Code(s): K74.60 - Unspecified cirrhosis of liver; I85.10 - Secondary esophageal varices without bleeding Status: Chronic (3) Hypertension Code(s): I10 - Essential (primary) hypertension Status: Chronic (4) Alcohol abuse Code(s): F10.10 - Alcohol abuse, uncomplicated Status: Chronic (5) Depression with anxiety Code(s): F41.8 - Other specified anxiety disorders Status: Chronic (6) Cough Code(s): R05 - Cough Status: Resolved (7) Diabetes Code(s): E11.9 - Type 2 diabetes mellitus without complications Status: Chronic (8) Deep vein thrombosis (DVT) of brachial vein Code(s): I82.629 - Acute embolism and thrombosis of deep veins of unspecified upper extremity Status: Acute (9) Chest pain Code(s): R07.9 - Chest pain, unspecified Status: Acute (10) Alcohol withdrawal Code(s): F10.239 - Alcohol dependence with withdrawal, unspecified Status: Resolved <AdrianIsidoro - 02/06/18 10:13> - Assessment and Plan Patient is a 52-year-old male with medical history significant for alcoholism, cirrhosis, and esophageal varices who was admitted with esophageal varices, status post banding x4. He has had altered mental status for most of his hospitalization. He was intubated, and then extubated on 01/27. His confusion has improved significantly today. Hemoglobin dropped to 6.9, uptrending. Esophageal varices in the context of cirrhosis: -Status post banding x4. -H&H decreased 8.7 02/05, uptrending -Gastroenterology was called and examined the patient. EGD repeated without significant new bleeds -His altered mental status is likely secondary to his liver disease. We are unsure of his baseline, however he is significantly less confused now. He is now oriented x3. -Ammonia level still elevated, has been refusing lactulose -Continue lactulose 4 times a day and Xifaxan 550 twice daily -Continue IV Protonix BID -Propranolol 40mg BID Respiratory: He has had mild shortness of breath and cough with possible underlying asthma per pulmonology -Continue supplemental oxygen as needed -Continue CPAP as needed for shortness of breath -Continue Albuterol as needed Hypertension: Amlodipine discontinued due to borderline hypotension Bumex 0.5 mg daily Propranolol as above Hyperlipidemia: Continue home medication pravastatin 40 mg p.o. nightly Hypokalemia: -He has had some mild hypokalemia throughout his hospitalization. -Monitor and correct as needed Type 2 diabetes mellitus: -Low dose SS insulin DVT of brachial vein (right): -Last ultrasound on 01/28 was negative for DVT, DVT last seen the ultrasound on 01/19 -Decision and amount of anticoagulation is complicated due to his variceal bleed. -We are following critical care as recommendation of the Lovenox 40mg daily Alcohol withdrawal: resolved He has a significant history of alcohol abuse and had been receiving treatment at [facility]. He had not been sober at the time of admission. He was transferred to the ICU secondary to withdraw. This has now resolved and he is not currently on any benzodiazepines. Fluids: Adequate p.o. intake Electrolytes: monitor and replete as needed Nutrition:. Solids and nectar thick liquids. This is the recommendation from swallow eval GI prophylaxis: IV Protonix VTE prophylaxis: Lovenox 40mg q24 Disposition: He will need physical therapy at rehab, however he is not currently medically stable for discharge <Florian Campbell - 02/06/18 10:36> - Attending Attestation This patient was seen and evaluated with the resident physician. I agree with the plan of care as discussed with me and documented in the resident note. Ajit Correia MD <Ajit Correia - 02/06/18 13:10>
[2018-02-06] MEDS: Ferrous Sulfate 325 MG Tablet PO SCH ×2 (13:07→17:06)
--- NOTE | 2018-02-06 17:03 | P.PNGI ---
Subjective Interval history: Patient lying supine in bed Denies any nausea vomiting or noted bleeding Patient post EGD <Celia Wing - Last Filed: 02/06/18 17:00> Physical Exam Vital signs: Vital Signs 02/05/18 17:45 02/05/18 20:00 02/06/18 00:00 Temperature 98.6 F 100.8 F H Pulse Rate 88 89 Respiratory Rate 19 18 Blood Pressure 129/61 122/60 Pulse Oximetry 94 L 97 95 02/06/18 04:00 02/06/18 08:00 02/06/18 09:40 Temperature 100.3 F H 98.3 F Pulse Rate 80 87 Respiratory Rate 19 18 Blood Pressure 132/65 115/63 Pulse Oximetry 95 97 95 02/06/18 12:00 Temperature 98.0 F Pulse Rate 75 Respiratory Rate 18 Blood Pressure 107/58 L Pulse Oximetry 99 Intake & Output 02/05/18 02/06/18 02/06/18 18:59 06:59 18:59 Intake Total 1120 / 1120 400 / 400 Output Total 300 / 300 600 / 600 Balance 820 / 820 -200 / -200 Weight 97.9 kg Intake: IV 1000 / 1000 LR 1000 mL Inj 1,000 ML @ 30 1000 / 1000 mls/hr IV.CONT .Q24H ONE Rx#: [id number] Oral 120 / 120 400 / 400 Output: Urine 300 / 300 600 / 600 Other: # Incontinent Voids 2 Date of Last Bowel Movement 02/05/18 02/04/18 # Bowel Movements 1 - Constitutional no acute distress, chronically ill appearing - Routine HEENT Exam Head: Present: normocephalic - Routine Respiratory Exam Present: CTA bilaterally - Routine Abdominal Exam Present: soft, normoactive bowel sounds. Absent: tenderness - Routine Skin Exam Present: dry, warm - Routine Neurological Exam Present: alert - Routine Psychiatric Exam Present: normal affect, cooperative - Urinary Catheter Management Straight Cath placed during this visit: yes, but has since been removed by the nurse Reason for continuing: Not indwelling catheter Insertion date: 01/26/18 Insertion time: 17:30 Removal date: 01/26/18 Removal time: 17:35 Condom Cath placed during this visit: no 400 Cath placed during this visit: no <Celia Wing - Last Filed: 02/06/18 17:00> Vital signs: Vital Signs 02/06/18 00:00 02/06/18 04:00 02/06/18 08:00 Temperature 100.8 F H 100.3 F H 98.3 F Pulse Rate 89 80 87 Respiratory Rate 18 19 18 Blood Pressure 122/60 132/65 115/63 Pulse Oximetry 95 95 97 02/06/18 09:40 02/06/18 12:00 02/06/18 16:00 Temperature 98.0 F 100.8 F H Pulse Rate 75 81 Respiratory Rate 18 18 Blood Pressure 107/58 L 109/60 Pulse Oximetry 95 99 95 Intake & Output 02/06/18 02/06/18 02/07/18 06:59 18:59 06:59 Intake Total 400 / 400 480 / 480 Output Total 600 / 600 Balance -200 / -200 480 / 480 Weight 97.9 kg Intake: Oral 400 / 400 480 / 480 Output: Urine 600 / 600 Other: # Voids 2 Date of Last Bowel Movement 02/04/18 - Urinary Catheter Management Straight Cath placed during this visit: no Condom Cath placed during this visit: no 400 Cath placed during this visit: no <Richy Montoya - Last Filed: 02/06/18 20:35> Results - Labs CBC & Chem 7: 02/06/18 05:18 02/06/18 05:18 Laboratory Results - last 24 hr 02/05/18 02/06/18 02/06/18 17:47 01:05 05:18 WBC 10.2 RBC 3.29 L Hgb 8.7 L Hct 26.2 L MCV 79.4 L MCH 26.3 L MCHC 33.1 RDW 19.8 H Plt Count 131 L MPV 8.6 Neut % (Auto) 71.0 H Lymph % (Auto) 8.7 L [place] % (Auto) 18.8 H Eos % (Auto) 1.0 Baso % (Auto) 0.5 Neut # (Auto) 7.2 Lymph # (Auto) 0.9 L [place] # (Auto) 1.9 H Eos # (Auto) 0.1 Baso # (Auto) 0.0 WBC Differential . Differential Comment Auto diff final Sodium Potassium Chloride Carbon Dioxide Anion Gap BUN Creatinine Estimated GFR POC Glucose 168 H 152 H Random Glucose Calcium Total Bilirubin AST ALT Alkaline Phosphatase Ammonia Total Protein Albumin 02/06/18 02/06/18 02/06/18 05:18 05:18 05:42 WBC RBC Hgb Hct MCV MCH MCHC RDW Plt Count MPV Neut % (Auto) Lymph % (Auto) [place] % (Auto) Eos % (Auto) Baso % (Auto) Neut # (Auto) Lymph # (Auto) [place] # (Auto) Eos # (Auto) Baso # (Auto) WBC Differential Differential Comment Sodium 137 Potassium 3.2 L Chloride 99 Carbon Dioxide 31.1 Anion Gap 7 BUN 7 Creatinine 0.82 Estimated GFR Greater than 89 POC Glucose 196 H Random Glucose 161 H Calcium 8.5 Total Bilirubin 1.5 H AST 47 H ALT 24 Alkaline Phosphatase 198 H Ammonia 86 H Total Protein 6.9 Albumin 2.7 L 02/06/18 12:15 WBC RBC Hgb Hct MCV MCH MCHC RDW Plt Count MPV Neut % (Auto) Lymph % (Auto) [place] % (Auto) Eos % (Auto) Baso % (Auto) Neut # (Auto) Lymph # (Auto) [place] # (Auto) Eos # (Auto) Baso # (Auto) WBC Differential Differential Comment Sodium Potassium Chloride Carbon Dioxide Anion Gap BUN Creatinine Estimated GFR POC Glucose 182 H Random Glucose Calcium Total Bilirubin AST ALT Alkaline Phosphatase Ammonia Total Protein Albumin <Celia Wing - Last Filed: 02/06/18 17:00> - Labs CBC & Chem 7: 02/06/18 05:18 02/06/18 05:18 Laboratory Results - last 24 hr 02/06/18 02/06/18 02/06/18 01:05 05:18 05:18 WBC 10.2 RBC 3.29 L Hgb 8.7 L Hct 26.2 L MCV 79.4 L MCH 26.3 L MCHC 33.1 RDW 19.8 H Plt Count 131 L MPV 8.6 Neut % (Auto) 71.0 H Lymph % (Auto) 8.7 L [place] % (Auto) 18.8 H Eos % (Auto) 1.0 Baso % (Auto) 0.5 Neut # (Auto) 7.2 Lymph # (Auto) 0.9 L [place] # (Auto) 1.9 H Eos # (Auto) 0.1 Baso # (Auto) 0.0 WBC Differential . Differential Comment Auto diff final Sodium 137 Potassium 3.2 L Chloride 99 Carbon Dioxide 31.1 Anion Gap 7 BUN 7 Creatinine 0.82 Estimated GFR Greater than 89 POC Glucose 152 H Random Glucose 161 H Calcium 8.5 Total Bilirubin 1.5 H AST 47 H ALT 24 Alkaline Phosphatase 198 H Ammonia Total Protein 6.9 Albumin 2.7 L 02/06/18 02/06/18 02/06/18 05:18 05:42 12:15 WBC RBC Hgb Hct MCV MCH MCHC RDW Plt Count MPV Neut % (Auto) Lymph % (Auto) [place] % (Auto) Eos % (Auto) Baso % (Auto) Neut # (Auto) Lymph # (Auto) [place] # (Auto) Eos # (Auto) Baso # (Auto) WBC Differential Differential Comment Sodium Potassium Chloride Carbon Dioxide Anion Gap BUN Creatinine Estimated GFR POC Glucose 196 H 182 H Random Glucose Calcium Total Bilirubin AST ALT Alkaline Phosphatase Ammonia 86 H Total Protein Albumin 02/06/18 17:08 WBC RBC Hgb Hct MCV MCH MCHC RDW Plt Count MPV Neut % (Auto) Lymph % (Auto) [place] % (Auto) Eos % (Auto) Baso % (Auto) Neut # (Auto) Lymph # (Auto) [place] # (Auto) Eos # (Auto) Baso # (Auto) WBC Differential Differential Comment Sodium Potassium Chloride Carbon Dioxide Anion Gap BUN Creatinine Estimated GFR POC Glucose 200 H Random Glucose Calcium Total Bilirubin AST ALT Alkaline Phosphatase Ammonia Total Protein Albumin <Richy Montoya - Last Filed: 02/06/18 20:35> Assessment and Plan - Plan Assessment: - Ingestion of foreign body- CT scan reports metallic foreign body in the mid transverse colon without evidence for colitis or perforation at this time. Patient reports that he thinks he swallowed part of his filling, states that he was eating a sandwich and he felt his tooth break off. - Nausea/vomiting with question of hematemesis Patient reports nausea and vomiting persistently for the past 2 days. He does report bright red blood mixed in his emesis, states that he thinks it is from his teeth extraction done 2 days ago. Exam does not reveal any active bleeding in his oral cavity. Patient also reports abdominal pain that has been persistent for the past day and a half, unable to describe the pain. Patient states that pain is worse after taking naltrexone. Despite naltrexone, patient continues to drink alcohol. He states that he had 2 beers yesterday. Pt also reports significant Ibuprofen use until less than a month ago when he was advised by his PCP to stop. Previously seen by our service for upper GIB, did have noted esophageal varices, however no active bleeding and the bleeding was actually noted to be likely secondary to Yanci-Hutton tear. EGD (11/14/17) class a esophagitis noted, scar of previous banding noted. Multiple large ulcers were found in the pylorus, biopsies taken. Normal duodenal mucosa in the duodenal bulb, second part of duodenum and third part of duodenum. 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 There is no ascites although there is diffuse mesenteric edema. This is particularly prominent near the fourth portion of the duodenum. Suspect this is dependent mesenteric edema rather than duodenitis. Pt continues to drink alcohol despite being on Naltrexone 01/17/2018 01/16/2018 EGD revealed the following findings: 1. Esophageal varices - grade 2 sp banding -4 band applied gastritis antrum-biopsy 2. Retroflexed views revealed a hiatal hernia Denies any active bleeding noted. Hemoglobin 11.3 hematocrit 33.7 platelet count 68 01/30/2018 -NG tube placement -GI notified to assist with insertion of NG tube for medications and nutrition -Multiple attempts made-unsuccessful -01/30/2018 hemoglobin 10.1 hematocrit 30.6-stable -01/16/2018 EGD revealed the following findings: 1. Esophageal varices - grade 2 sp banding -4 band applied gastritis antrum-biopsy 2. Retroflexed views revealed a hiatal hernia 02/04/2018 GI notified to evaluate patient for hemoglobin 6.9 hematocrit 20.7 Patient denies any noted bleeding. Per bedside RN no obvious bleeding noted. Patient states declining acceptance of blood products due to being Mandaeism Denies any heartburn or epigastric pain. 02/06/2018 Patient denies any noted bleeding. No obvious bleeding noted Patient denies abdominal pain nausea or vomiting Post EGD 02/05/2018-- 1. Multiple medium sized ulcers were found in the distal esophagus , from recent banding, normal finding after recent banding, no active or recent bleeding. 2. Portal hypertensive gastropathy was found in the entire examined stomach 3. Normal duodenal mucosa 4. Retroflexion was performed and was normal Hemoglobin 8.7 hematocrit 26.2 stable Plan -Diet as tolerated -Continue PPI -Notify GI for any active bleeding -Continue antiemetic -Supportive care This patient has been seen by myself and Dr. Montoya and this note is written on his behalf - Attending Attestation Dr. Montoya <Celia Wing - Last Filed: 02/06/18 17:00> - Attending Attestation As above, no evidence of active bleeding. Advance diet as tolerated. Will follow up with you. <Richy Montoya - Last Filed: 02/06/18 20:35>
[2018-02-06] MEDS: Enoxaparin Inj 40 MG/0.4 ML Syringe SQ SCH (17:06)
--- NOTE | 2018-02-06 18:43 | P.PNPL ---
Subjective Interval history: 52 YO male with GIB, cirrhosis Developed resp distress, agitation Extubated 01/27 Alert, awake, follows commands Denies sob Ambulates Anxious to go home. Physical Exam Vital signs: Vital Signs 02/05/18 20:00 02/06/18 00:00 02/06/18 04:00 Temperature 98.6 F 100.8 F H 100.3 F H Pulse Rate 88 89 80 Respiratory Rate 19 18 19 Blood Pressure 129/61 122/60 132/65 Pulse Oximetry 97 95 95 02/06/18 08:00 02/06/18 09:40 02/06/18 12:00 Temperature 98.3 F 98.0 F Pulse Rate 87 75 Respiratory Rate 18 18 Blood Pressure 115/63 107/58 L Pulse Oximetry 97 95 99 02/06/18 16:00 Temperature 100.8 F H Pulse Rate 79 Respiratory Rate 18 Blood Pressure 109/60 Pulse Oximetry 95 Intake & Output 02/05/18 02/06/18 02/06/18 18:59 06:59 18:59 Intake Total 1120 / 1120 400 / 400 480 / 480 Output Total 300 / 300 600 / 600 Balance 820 / 820 -200 / -200 480 / 480 Weight 97.9 kg Intake: IV 1000 / 1000 LR 1000 mL Inj 1,000 ML @ 30 1000 / 1000 mls/hr IV.CONT .Q24H ONE Rx#: [id number] Oral 120 / 120 400 / 400 480 / 480 Output: Urine 300 / 300 600 / 600 Other: # Voids 2 # Incontinent Voids 2 Date of Last Bowel Movement 02/05/18 02/04/18 # Bowel Movements 1 GENERAL: WBWN NAD SKIN: Warm and dry. HEAD: Normocephalic. EYES: No scleral icterus. No injection or drainage. NECK: Supple, trachea midline. No JVD or lymphadenopathy. CARDIOVASCULAR: Regular rate and rhythm without murmurs, gallops, or rubs. RESPIRATORY: Breath sounds equal bilaterally. No accessory muscle use. GASTROINTESTINAL: Abdomen soft, non-tender, nondistended. MUSCULOSKELETAL: No cyanosis, or edema. BACK: Nontender without obvious deformity. No CVA tenderness. - Urinary Catheter Management Straight Cath placed during this visit: yes, but has since been removed by the nurse Reason for continuing: Not indwelling catheter Insertion date: 01/26/18 Insertion time: 17:30 Removal date: 01/26/18 Removal time: 17:35 Condom Cath placed during this visit: no 400 Cath placed during this visit: no Assessment and Plan - Plan IMPRESSION: 1. Mild shortness of breath and cough, possibly underlying asthma. 2. Hypertension. 3. Diabetes mellitus. 4. Cirrhosis of the liver. 5. VDRF, s/p extubation 01/27 6. Encephalopathy. PLAN: Protonix 40 mg daily Monitor Ammonia level. Stable on RA Aerosol nebs SQ Lovenox
[2018-02-07] MEDS: Oral Hygiene Kit OROPHARYNG SCH ×4 (02:09→16:42)
[2018-02-07] MEDS: Insulin NovoLOG Aspart Correctional Sugar Inj SQ SCH ×5 (02:09→23:42)
[2018-02-07] MEDS: Artificial Tears Opth Drops 15 ML Bottle EACH EYE SCH ×3 (06:02→22:04)
[2018-02-07 07:20] LABS: Baso # (Auto) 0.1 th/mm3 (0.0-0.2); Baso % (Auto) 0.6 % (0.0-2.0); Eos # (Auto) 0.2 th/mm3 (0.0-0.4); Eos % (Auto) 1.8 % (0.0-4.0); Hematocrit 22.6 % (39.0-51.0); Hemoglobin 7.7 gm/dL (13.0-17.0); Lymph # (Auto) 0.9 th/mm3 (1.0-4.8); Lymph % (Auto) 9.3 % (9.0-44.0); Mean Corpuscular Hemoglobin 26.7 pg (27.0-34.0); Mean Corpuscular Volume 78.6 fL (80.0-100.0); Mean Platelet Volume 8.3 fL (7.0-11.0); Mono # (Auto) 1.8 th/mm3 (0.0-0.9); Neut # (Auto) 6.5 th/mm3 (1.8-7.7); Neut % (Auto) 69.3 % (16.0-70.0); Platelet Count 120 th/mm3 (150-450); Red Blood Count 2.87 mil/mm3 (4.50-5.90); Red Cell Distribution Width 20.7 % (11.6-17.2); White Blood Count 9.4 th/mm3 (4.0-11.0)
[2018-02-07 07:26] LABS: INR 1.3 Ratio; Prothrombin Time 12.8 sec (9.8-11.6)
[2018-02-07 07:56] LABS: Anion Gap 6 meq/L (5-15); Blood Urea Nitrogen 7 mg/dL (7-18); Calcium 8.1 mg/dL (8.5-10.1); Carbon Dioxide 30.5 meq/L (21.0-32.0); Chloride 101 meq/L (98-107); Glomerular Filtration Rate Greater Than 89 mL/min (>89); Glucose,Random 150 mg/dL (74-106); Potassium 3.5 meq/L (3.5-5.1); Sodium 137 meq/L (136-145)
[2018-02-07] MEDS: Senna/Docusate Sodium 8.6/50 MG Tablet PO SCH ×2 (08:44→20:52)
[2018-02-07] MEDS: Propranolol 40 MG Tablet PO SCH ×2 (08:44→20:51)
[2018-02-07] MEDS: Multivit/Folic Acid/Minerals Chewable Tablets CHEW SCH (08:44)
[2018-02-07] MEDS: rifAXIMin 550 MG Tablet PO SCH ×2 (08:45→20:51)
[2018-02-07] MEDS: Sodium Chloride 0.9% 2 ML Flush BID IV.FLUSH SCH ×2 (08:51→20:51)
[2018-02-07] MEDS: Pantoprazole Inj 40 MG Vial IV.PUSH SCH ×2 (09:00→20:52)
--- NOTE | 2018-02-07 09:56 | P.PNFP ---
Addendum entered and electronically signed by Sin Victoria MD, R1 11:02: Exam findings: -Stage 1 ulcer present in the sacral area and heel Original Note: Subjective Interval history: There were no acute events overnight. He does report feeling warm last night and having some trouble breathing because of this. However he denies chills, nausea, SOB, chest pain, palpations or melena. He had a BM yesterday, he states it was soft and brown. He has been refusing his lactulose because it makes his stools loose. He also takes lactulose at home. We discussed extensively that he needs to take the lactulose to get his ammonia levels down. <Sin Victoria - 02/07/18 10:15> Results - Labs Result diagrams: 02/10/18 09:14 02/08/18 09:23 <Antelmo Olvera - 02/10/18 13:44> Abnormal lab results 02/09/18 02/10/18 02/10/18 Range/Units 18:24 00:05 06:21 RBC (4.50-5.90) mil/mm3 Hgb (13.0-17.0) gm/dL Hct (39.0-51.0) % MCH (27.0-34.0) pg RDW (11.6-17.2) % [place] % (Auto) (0.0-8.0) % [place] # (Auto) (0.0-0.9) th/mm3 POC Glucose 172 H 156 H 156 H (68-110) mg/dl Ammonia (11-32) mcmol/L 02/10/18 02/10/18 02/10/18 Range/Units 09:14 09:14 12:25 RBC 3.70 L (4.50-5.90) mil/mm3 Hgb 9.7 L (13.0-17.0) gm/dL Hct 30.3 L (39.0-51.0) % MCH 26.3 L (27.0-34.0) pg RDW 23.5 H (11.6-17.2) % [place] % (Auto) 16.5 H (0.0-8.0) % [place] # (Auto) 1.5 H (0.0-0.9) th/mm3 POC Glucose 149 H (68-110) mg/dl Ammonia 44 H (11-32) mcmol/L Short CBC 02/10/18 Range/Units 09:14 WBC 9.3 (4.0-11.0) th/mm3 Hgb 9.7 L (13.0-17.0) gm/dL Hct 30.3 L (39.0-51.0) % Plt Count 169 D (150-450) th/mm3 <Antelmo Olvera - 02/10/18 13:44> Abnormal lab results 02/06/18 02/06/18 02/07/18 Range/Units 12:15 17:08 01:54 RBC (4.50-5.90) mil/mm3 Hgb (13.0-17.0) gm/dL Hct (39.0-51.0) % MCV (80.0-100.0) fL MCH (27.0-34.0) pg RDW (11.6-17.2) % Plt Count (150-450) th/mm3 [place] % (Auto) (0.0-8.0) % Lymph # (Auto) (1.0-4.8) th/mm3 [place] # (Auto) (0.0-0.9) th/mm3 PT (9.8-11.6) sec POC Glucose 182 H 200 H 165 H (68-110) mg/dl Random Glucose (74-106) mg/dL Calcium (8.5-10.1) mg/dL Ammonia (11-32) mcmol/L 02/07/18 02/07/18 02/07/18 Range/Units 05:34 06:56 06:56 RBC 2.87 L (4.50-5.90) mil/mm3 Hgb 7.7 L (13.0-17.0) gm/dL Hct 22.6 L (39.0-51.0) % MCV 78.6 L (80.0-100.0) fL MCH 26.7 L (27.0-34.0) pg RDW 20.7 H (11.6-17.2) % Plt Count 120 L (150-450) th/mm3 [place] % (Auto) 19.0 H (0.0-8.0) % Lymph # (Auto) 0.9 L (1.0-4.8) th/mm3 [place] # (Auto) 1.8 H (0.0-0.9) th/mm3 PT 12.8 H (9.8-11.6) sec POC Glucose 153 H (68-110) mg/dl Random Glucose (74-106) mg/dL Calcium (8.5-10.1) mg/dL Ammonia (11-32) mcmol/L 02/07/18 02/07/18 Range/Units 06:56 06:56 RBC (4.50-5.90) mil/mm3 Hgb (13.0-17.0) gm/dL Hct (39.0-51.0) % MCV (80.0-100.0) fL MCH (27.0-34.0) pg RDW (11.6-17.2) % Plt Count (150-450) th/mm3 [place] % (Auto) (0.0-8.0) % Lymph # (Auto) (1.0-4.8) th/mm3 [place] # (Auto) (0.0-0.9) th/mm3 PT (9.8-11.6) sec POC Glucose (68-110) mg/dl Random Glucose 150 H (74-106) mg/dL Calcium 8.1 L (8.5-10.1) mg/dL Ammonia 43 H (11-32) mcmol/L Short CBC 02/07/18 Range/Units 06:56 WBC 9.4 (4.0-11.0) th/mm3 Hgb 7.7 L (13.0-17.0) gm/dL Hct 22.6 L (39.0-51.0) % Plt Count 120 L (150-450) th/mm3 BMP 02/07/18 06:56 Sodium 137 Potassium 3.5 Chloride 101 Carbon Dioxide 30.5 BUN 7 Creatinine 0.85 Calcium 8.1 L <Sin Victoria - 02/07/18 09:56> Physical Exam Vital signs: Vital Signs 02/09/18 16:00 02/09/18 19:54 02/09/18 20:00 Temperature 97.8 F 100.1 F H Pulse Rate 82 86 80 Respiratory Rate 18 20 Blood Pressure 96/59 L 125/69 Pulse Oximetry 96 97 02/09/18 23:55 02/10/18 00:00 02/10/18 04:00 Temperature 98.4 F 98.7 F Pulse Rate 85 86 83 Respiratory Rate 16 18 Blood Pressure 109/58 L 109/64 Pulse Oximetry 93 L 96 02/10/18 04:02 02/10/18 08:00 02/10/18 12:00 Temperature 97.9 F 99.3 F Pulse Rate 69 67 70 Respiratory Rate 17 17 Blood Pressure 120/63 117/73 Pulse Oximetry 97 98 Intake & Output 02/09/18 02/10/18 02/10/18 18:59 06:59 18:59 Intake Total 720 / 720 480 / 480 Output Total 1700 / 1700 Balance -980 / -980 480 / 480 Intake: Oral 720 / 720 480 / 480 Output: Urine 1700 / 1700 Other: # Bowel Movements 2 2 <Antelmo Olvera - 02/10/18 13:44> Vital Signs 02/06/18 12:00 02/06/18 16:00 02/06/18 20:00 Temperature 98.0 F 100.8 F H 101.1 F H Pulse Rate 75 81 91 H Respiratory Rate 18 18 20 Blood Pressure 107/58 L 109/60 117/65 Pulse Oximetry 99 95 95 02/06/18 21:42 02/07/18 00:00 02/07/18 04:00 Temperature 101.3 F H 99.3 F Pulse Rate 90 86 Respiratory Rate 20 20 Blood Pressure 135/72 126/73 Pulse Oximetry 98 95 92 L 02/07/18 08:00 Temperature 98.6 F Pulse Rate 85 Respiratory Rate 16 Blood Pressure 125/60 Pulse Oximetry 98 Intake & Output 02/06/18 02/07/18 02/07/18 18:59 06:59 18:59 Intake Total 480 / 480 420 / 420 Output Total 700 / 700 Balance 480 / 480 -280 / -280 Intake: Oral 480 / 480 420 / 420 Output: Urine 700 / 700 Other: # Voids 2 Date of Last Bowel Movement 02/06/18 <Sin Victoria - 02/07/18 09:56> Narrative: General: Well-developed, alert, and in no acute distress. Neurologic: Oriented x3 HEENT: Atraumatic, moist mucous membranes Neck: Supple, trachea midline Cardiac: Regular rate and rhythm without murmurs Pulmonary: Non-labored breathing. Lungs clear to auscultation bilaterally with good air movement Abdomen: Normal bowel sounds, soft and non-tender without rebound or guarding Extremities: No edema, 2+ pedal pulses, capillary refill less than 2 seconds <Sin Victoria - 02/07/18 10:15> - Urinary Catheter Management 400 Cath placed during this visit: no <Antelmo Olvera - 02/10/18 13:44> no <Sin Victoria - 02/07/18 10:51> Condom Cath placed during this visit: no <Antelmo Olvera - 02/10/18 13:44> no <Sin Victoria - 02/07/18 10:51> Straight Cath placed during this visit: no <Antelmo Olvera - 02/10/18 13:44> yes, but has since been removed by the nurse <Sin Victoria - 02/07/18 10:51> Reason for continuing: Not indwelling catheter <Sin Victoria - 09:56> Insertion date: 01/26/18 <Sin Victoria - 02/07/18 09:56> Insertion time: 17:30 <Sin Victoria - 02/07/18 09:56> Removal date: 01/26/18 <Sin Victoria - 02/07/18 09:56> Removal time: 17:35 <Sin Victoria - 02/07/18 09:56> Assessment and Plan - Assessment (1) Abdominal pain Code(s): R10.9 - Unspecified abdominal pain Status: Resolved (2) Esophageal varices in cirrhosis Code(s): K74.60 - Unspecified cirrhosis of liver; I85.10 - Secondary esophageal varices without bleeding Status: Chronic (3) Hypertension Code(s): I10 - Essential (primary) hypertension Status: Chronic (4) Alcohol abuse Code(s): F10.10 - Alcohol abuse, uncomplicated Status: Chronic (5) Depression with anxiety Code(s): F41.8 - Other specified anxiety disorders Status: Chronic (6) Cough Code(s): R05 - Cough Status: Resolved (7) Diabetes Code(s): E11.9 - Type 2 diabetes mellitus without complications Status: Chronic (8) Deep vein thrombosis (DVT) of brachial vein Code(s): I82.629 - Acute embolism and thrombosis of deep veins of unspecified upper extremity Status: Acute (9) Chest pain Code(s): R07.9 - Chest pain, unspecified Status: Resolved (10) Alcohol withdrawal Code(s): F10.239 - Alcohol dependence with withdrawal, unspecified Status: Resolved <Antelmo Olvera - 02/10/18 13:44> (1) Abdominal pain Code(s): R10.9 - Unspecified abdominal pain Status: Resolved (2) Esophageal varices in cirrhosis Code(s): K74.60 - Unspecified cirrhosis of liver; I85.10 - Secondary esophageal varices without bleeding Status: Chronic (3) Hypertension Code(s): I10 - Essential (primary) hypertension Status: Chronic (4) Alcohol abuse Code(s): F10.10 - Alcohol abuse, uncomplicated Status: Chronic (5) Depression with anxiety Code(s): F41.8 - Other specified anxiety disorders Status: Chronic (6) Cough Code(s): R05 - Cough Status: Resolved (7) Diabetes Code(s): E11.9 - Type 2 diabetes mellitus without complications Status: Chronic (8) Deep vein thrombosis (DVT) of brachial vein Code(s): I82.629 - Acute embolism and thrombosis of deep veins of unspecified upper extremity Status: Acute (9) Chest pain Code(s): R07.9 - Chest pain, unspecified Status: Acute (10) Alcohol withdrawal Code(s): F10.239 - Alcohol dependence with withdrawal, unspecified Status: Resolved <Sin Victoria - 02/07/18 10:40> - Assessment and Plan Patient is a 52-year-old male with medical history significant for alcoholism, cirrhosis, and esophageal varices who was admitted with esophageal varices, status post banding x4. He has had altered mental status for most of his hospitalization. He was intubated, and then extubated on 01/27. Repeat EGD on 02/05 showed no active bleed. He continues to have some mild confusion. Esophageal varices in the context of cirrhosis: -Status post banding x4. -H&H decreased 7.7 today, decrease of one today. We have no source of active bleed. Occult blood in the stool ordered. -EGD repeated without active bleeds 02/05 -His altered mental status is likely secondary to his liver disease. We are unsure of his baseline, however he is significantly less confused now. He is now oriented x3. -Ammonia level still elevated, has been refusing lactulose, was given 1 dose yesterday. Extensive discussion occurred today about the benefits of lactulose. He agreed to take it twice a day now. -Continue lactulose 4 times a day and Xifaxan 550 twice daily -His liver damage is certainly related to his alcohol use, however it is possible that he has a coexisting viral hepatitis. Hepatitis panel ordered today. -Continue IV Protonix BID -Propranolol 40mg BID Fever: -He has had some SOB in during this hospitalization, however he denies it today. He was extubated on 01/27 -Fever today was 101.3. He had some subjective last night, which has now resolved. -CXR ordered Hypertension: -Amlodipine discontinued due to borderline hypotension, BP has been stable since -Bumex 0.5 mg daily -Propranolol as above Hyperlipidemia: -Continue home medication pravastatin 40 mg p.o. nightly Hypokalemia: -He has had some mild hypokalemia throughout his hospitalization. -Monitor and correct as needed Type 2 diabetes mellitus: -Low dose SS insulin DVT of brachial vein (right): -Last ultrasound on 01/28 was negative for DVT, DVT last seen the ultrasound on 01/19 -Decision and amount of anticoagulation is complicated due to his variceal bleed. -We are following critical care as recommendation of the Lovenox 40mg daily Alcohol withdrawal: resolved He has a significant history of alcohol abuse and had been receiving treatment at [facility]. He had not been sober at the time of admission. He was transferred to the ICU secondary to withdraw. This has now resolved and he is not currently on any benzodiazepines. Fluids: Adequate p.o. intake Electrolytes: monitor and replete as needed Nutrition:. Solids and nectar thick liquids. This is the recommendation from swallow eval GI prophylaxis: IV Protonix VTE prophylaxis: Lovenox 40mg q24 Disposition: He will need physical therapy at rehab, however he is not currently medically stable for discharge. He reports his primary care is through [facility]. Patient was seen and examined with Drs. Campbell and May <Sin Victoria - 02/07/18 10:51> - Attending Attestation See the residents documentation for details. I saw and evaluated the patient regarding the manley portions of this evaluation and agree with the residents findings and plans as written. Parts of this note were created using Ever[employer] voice recognition software program. While efforts were made to correct any mistakes made by this software, some mistakes, errors, and omissions may remain in the final note that were not caught when the note was originally created. Plan of care was discussed and agreed upon with the patient as specifically documented in the above note. An opportunity to ask questions with explanation was provided. Patient voiced understanding on all information reviewed and discussed. <Antelmo Olvera - 02/10/18 13:44>
--- NOTE | 2018-02-07 11:50 | P.PNGI ---
Subjective Interval history: Patient awake and alert sitting up at bedside Eating breakfast meal denies any nausea or vomiting No reported bleeding <Celia Wing - Last Filed: 02/07/18 11:46> Physical Exam Vital signs: Vital Signs 02/06/18 12:00 02/06/18 16:00 02/06/18 20:00 Temperature 98.0 F 100.8 F H 101.1 F H Pulse Rate 75 81 91 H Respiratory Rate 18 18 20 Blood Pressure 107/58 L 109/60 117/65 Pulse Oximetry 99 95 95 02/06/18 21:42 02/07/18 00:00 02/07/18 04:00 Temperature 101.3 F H 99.3 F Pulse Rate 90 86 Respiratory Rate 20 20 Blood Pressure 135/72 126/73 Pulse Oximetry 98 95 92 L 02/07/18 08:00 Temperature 98.6 F Pulse Rate 86 Respiratory Rate 16 Blood Pressure 125/60 Pulse Oximetry 98 Intake & Output 02/06/18 02/07/18 02/07/18 18:59 06:59 18:59 Intake Total 480 / 480 420 / 420 Output Total 700 / 700 Balance 480 / 480 -280 / -280 Intake: Oral 480 / 480 420 / 420 Output: Urine 700 / 700 Other: # Voids 2 Date of Last Bowel Movement 02/06/18 - Constitutional no acute distress, chronically ill appearing - Routine HEENT Exam Head: Present: normocephalic - Routine Respiratory Exam Present: CTA bilaterally - Routine Abdominal Exam Present: soft, normoactive bowel sounds. Absent: tenderness, distended - Routine Skin Exam Present: dry, warm - Routine Neurological Exam Present: alert - Routine Psychiatric Exam Present: normal affect, cooperative - Urinary Catheter Management Straight Cath placed during this visit: yes, but has since been removed by the nurse Reason for continuing: Not indwelling catheter Insertion date: 01/26/18 Insertion time: 17:30 Removal date: 01/26/18 Removal time: 17:35 Condom Cath placed during this visit: no 400 Cath placed during this visit: no <Celia Wing - Last Filed: 02/07/18 11:46> Vital signs: Vital Signs 02/06/18 16:00 02/06/18 20:00 02/06/18 21:42 Temperature 100.8 F H 101.1 F H Pulse Rate 81 91 H Respiratory Rate 18 20 Blood Pressure 109/60 117/65 Pulse Oximetry 95 95 98 02/07/18 00:00 02/07/18 04:00 02/07/18 08:00 Temperature 101.3 F H 99.3 F 98.6 F Pulse Rate 90 86 86 Respiratory Rate 20 20 16 Blood Pressure 135/72 126/73 125/60 Pulse Oximetry 95 92 L 98 02/07/18 12:03 Temperature Pulse Rate Respiratory Rate Blood Pressure Pulse Oximetry 98 Intake & Output 02/06/18 02/07/18 02/07/18 18:59 06:59 18:59 Intake Total 480 / 480 420 / 420 Output Total 700 / 700 Balance 480 / 480 -280 / -280 Intake: Oral 480 / 480 420 / 420 Output: Urine 700 / 700 Other: # Voids 2 Date of Last Bowel Movement 02/06/18 - Urinary Catheter Management Straight Cath placed during this visit: no Condom Cath placed during this visit: no 400 Cath placed during this visit: no <Richy Zarco A - Last Filed: 02/07/18 12:19> Results - Labs CBC & Chem 7: 02/07/18 06:56 02/07/18 06:56 Laboratory Results - last 24 hr 02/06/18 02/06/18 02/07/18 12:15 17:08 01:54 WBC RBC Hgb Hct MCV MCH MCHC RDW Plt Count MPV Neut % (Auto) Lymph % (Auto) Lee % (Auto) Eos % (Auto) Baso % (Auto) Neut # (Auto) Lymph # (Auto) Lee # (Auto) Eos # (Auto) Baso # (Auto) WBC Differential Differential Comment PT INR Sodium Potassium Chloride Carbon Dioxide Anion Gap BUN Creatinine Estimated GFR POC Glucose 182 H 200 H 165 H Random Glucose Calcium Ammonia 02/07/18 02/07/18 02/07/18 05:34 06:56 06:56 WBC 9.4 RBC 2.87 L Hgb 7.7 L Hct 22.6 L MCV 78.6 L MCH 26.7 L MCHC 34.0 RDW 20.7 H Plt Count 120 L MPV 8.3 Neut % (Auto) 69.3 Lymph % (Auto) 9.3 Lee % (Auto) 19.0 H Eos % (Auto) 1.8 Baso % (Auto) 0.6 Neut # (Auto) 6.5 Lymph # (Auto) 0.9 L Lee # (Auto) 1.8 H Eos # (Auto) 0.2 Baso # (Auto) 0.1 WBC Differential . Differential Comment Auto diff final PT 12.8 H INR 1.3 Sodium Potassium Chloride Carbon Dioxide Anion Gap BUN Creatinine Estimated GFR POC Glucose 153 H Random Glucose Calcium Ammonia 02/07/18 02/07/18 06:56 06:56 WBC RBC Hgb Hct MCV MCH MCHC RDW Plt Count MPV Neut % (Auto) Lymph % (Auto) Lee % (Auto) Eos % (Auto) Baso % (Auto) Neut # (Auto) Lymph # (Auto) Lee # (Auto) Eos # (Auto) Baso # (Auto) WBC Differential Differential Comment PT INR Sodium 137 Potassium 3.5 Chloride 101 Carbon Dioxide 30.5 Anion Gap 6 BUN 7 Creatinine 0.85 Estimated GFR Greater than 89 POC Glucose Random Glucose 150 H Calcium 8.1 L Ammonia 43 H <Celia Wing - Last Filed: 02/07/18 11:46> - Labs CBC & Chem 7: 02/07/18 06:56 02/07/18 06:56 Laboratory Results - last 24 hr 02/06/18 02/06/18 02/07/18 12:15 17:08 01:54 WBC RBC Hgb Hct MCV MCH MCHC RDW Plt Count MPV Neut % (Auto) Lymph % (Auto) Lee % (Auto) Eos % (Auto) Baso % (Auto) Neut # (Auto) Lymph # (Auto) Lee # (Auto) Eos # (Auto) Baso # (Auto) WBC Differential Differential Comment PT INR Sodium Potassium Chloride Carbon Dioxide Anion Gap BUN Creatinine Estimated GFR POC Glucose 182 H 200 H 165 H Random Glucose Calcium Ammonia 02/07/18 02/07/18 02/07/18 05:34 06:56 06:56 WBC 9.4 RBC 2.87 L Hgb 7.7 L Hct 22.6 L MCV 78.6 L MCH 26.7 L MCHC 34.0 RDW 20.7 H Plt Count 120 L MPV 8.3 Neut % (Auto) 69.3 Lymph % (Auto) 9.3 Lee % (Auto) 19.0 H Eos % (Auto) 1.8 Baso % (Auto) 0.6 Neut # (Auto) 6.5 Lymph # (Auto) 0.9 L Lee # (Auto) 1.8 H Eos # (Auto) 0.2 Baso # (Auto) 0.1 WBC Differential . Differential Comment Auto diff final PT 12.8 H INR 1.3 Sodium Potassium Chloride Carbon Dioxide Anion Gap BUN Creatinine Estimated GFR POC Glucose 153 H Random Glucose Calcium Ammonia 02/07/18 02/07/18 02/07/18 06:56 06:56 11:57 WBC RBC Hgb Hct MCV MCH MCHC RDW Plt Count MPV Neut % (Auto) Lymph % (Auto) Lee % (Auto) Eos % (Auto) Baso % (Auto) Neut # (Auto) Lymph # (Auto) Lee # (Auto) Eos # (Auto) Baso # (Auto) WBC Differential Differential Comment PT INR Sodium 137 Potassium 3.5 Chloride 101 Carbon Dioxide 30.5 Anion Gap 6 BUN 7 Creatinine 0.85 Estimated GFR Greater than 89 POC Glucose 196 H Random Glucose 150 H Calcium 8.1 L Ammonia 43 H <Richy Zarco - Last Filed: 02/07/18 12:19> Assessment and Plan - Plan Assessment: - Ingestion of foreign body- CT scan reports metallic foreign body in the mid transverse colon without evidence for colitis or perforation at this time. Patient reports that he thinks he swallowed part of his filling, states that he was eating a sandwich and he felt his tooth break off. - Nausea/vomiting with question of hematemesis Patient reports nausea and vomiting persistently for the past 2 days. He does report bright red blood mixed in his emesis, states that he thinks it is from his teeth extraction done 2 days ago. Exam does not reveal any active bleeding in his oral cavity. Patient also reports abdominal pain that has been persistent for the past day and a half, unable to describe the pain. Patient states that pain is worse after taking naltrexone. Despite naltrexone, patient continues to drink alcohol. He states that he had 2 beers yesterday. Pt also reports significant Ibuprofen use until less than a month ago when he was advised by his PCP to stop. Previously seen by our service for upper GIB, did have noted esophageal varices, however no active bleeding and the bleeding was actually noted to be likely secondary to Yanci-Hutton tear. EGD (11/14/17) class a esophagitis noted, scar of previous banding noted. Multiple large ulcers were found in the pylorus, biopsies taken. Normal duodenal mucosa in the duodenal bulb, second part of duodenum and third part of duodenum. 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 There is no ascites although there is diffuse mesenteric edema. This is particularly prominent near the fourth portion of the duodenum. Suspect this is dependent mesenteric edema rather than duodenitis. Pt continues to drink alcohol despite being on Naltrexone 01/17/2018 01/16/2018 EGD revealed the following findings: 1. Esophageal varices - grade 2 sp banding -4 band applied gastritis antrum-biopsy 2. Retroflexed views revealed a hiatal hernia Denies any active bleeding noted. Hemoglobin 11.3 hematocrit 33.7 platelet count 68 01/30/2018 -NG tube placement -GI notified to assist with insertion of NG tube for medications and nutrition -Multiple attempts made-unsuccessful -01/30/2018 hemoglobin 10.1 hematocrit 30.6-stable -01/16/2018 EGD revealed the following findings: 1. Esophageal varices - grade 2 sp banding -4 band applied gastritis antrum-biopsy 2. Retroflexed views revealed a hiatal hernia 02/04/2018 GI notified to evaluate patient for hemoglobin 6.9 hematocrit 20.7 Patient denies any noted bleeding. Per bedside RN no obvious bleeding noted. Patient states declining acceptance of blood products due to being [facility] Denies any heartburn or epigastric pain. 02/06/2018 Patient denies any noted bleeding. No obvious bleeding noted Patient denies abdominal pain nausea or vomiting Post EGD 02/05/2018-- 1. Multiple medium sized ulcers were found in the distal esophagus , from recent banding, normal finding after recent banding, no active or recent bleeding. 2. Portal hypertensive gastropathy was found in the entire examined stomach 3. Normal duodenal mucosa 4. Retroflexion was performed and was normal Hemoglobin 8.7 hematocrit 26.2 stable 02/07/2018 Patient denies any noted bleeding Denies any abdominal pain nausea or vomiting, states tolerating regular diet well Hemoglobin 7.7 hematocrit 22.6 stable , iron supplementation twice daily Plan -Diet as tolerated -Continue PPI -Continue iron supplementation -Monitor for bleeding -Supportive care -Avoid NSAIDs and anticoagulants -GI will sign off at this time, please notify if needed -Supportive care This patient has been seen by myself and Dr. Zarco and this note is written on his behalf - Attending Attestation Dr. zarco <Celia Wing - Last Filed: 02/07/18 11:46> - Attending Attestation Agree with above assessment and plan. Please notify us if needed again. <Richy Zarco - Last Filed: 02/07/18 12:19>
--- NOTE | 2018-02-07 11:53 | P.CONPAL ---
Consult Service: Palliative Care Requesting Physician: Florian Campbell Reason for Consult: a. To assist with evaluation and management of symptoms including: diarrhea, weakness b. To assist medical decision maker(s) with: better understanding of current medical conditions; weighing benefits/burdens of medical treatment options; making medical treatment decisions. Primary Care Provider: Yvon Oscar History of Present Illness History of Present Illness: This is a 52-year-old male with a history of alcohol abuse, esophageal varices and GI bleed who presented to the emergency room 01/15 after a few days of generalized abdominal pains, 09/17, with associated nausea and vomiting over 10 times in the prior 24 hours, chills, dizziness. He describes his pain as periumbilical, cramping without radiation. He had been following at [facility] for alcohol cessation but had not been compliant and had continued to drink. Diagnostic data on admission * Ultrasound of the abdomen shows no significant ascites * CT of the abdomen showed a very small ingested metallic foreign body in the mid transverse colon without evidence for colitis or perforation at this time. This does not have the typical appearance of a barbecue bristle although this cannot be entirely excluded. (Patient later noted that he had swallowed a filling while eating a sandwich) cirrhotic liver with evidence for portal hypertension and prominent gastroesophageal varices. There is no ascites, although there is diffuse mesenteric edema. This is particularly prominent near the fourth portion of the duodenum. Suspect this is dependent mesenteric edema rather than duodenitis. Large gastroesophageal varices. * WBC 3.9, hemoglobin 11.9, hematocrit 37.5, platelets 74, sodium 143, potassium 4.1, BUN 5, creatinine 0.70, calcium 8.6, magnesium 1.7, total bilirubin 0.8, AST 33, ALT 26, ammonia 149, albumin 3.3, urinalysis negative, hemoglobin A1c 6.0, ammonia 54, PT 12.2, INR 1.2. Patient underwent an EGD 01/16 showing recurrent esophageal varices with grade 2 status post banding, 4 bands applied. Gastritis in the antrum biopsied, retroflexed views revealing a hiatal hernia. Abnormal vocal cords were noted during intubation and a CT of the neck with ENT consult was ordered. CT of the neck was negative for an acute process. CT of the chest was ordered showing mild infiltrates in the posterior lower lung hussein bilaterally suggestive of atelectasis and a nonspecific 1.5 cm lymph node in the anterior superior mediastinum. Nonspecific thickening involving the distal esophagus. ENT consult included transoral fiberoptic laryngoscopy showing mobile vocal cords that closed well without mass or lesion. Pulmonology evaluated patient secondary to mild dyspnea and cough thought to possibly be underlying asthma and was prescribed aerosol treatments with Tessalon and advised patient not to smoke. His mental status continued to decline and on 01/18 he was transferred to ICU and critical care medicine consulted due to possible EtOH withdrawal. He was treated with Ativan and Haldol per [facility] protocol. His oxygenation status continued to decline and on 01/20 he was intubated and sedated with fentanyl, propofol and Versed. He was eventually extubated 01/27 but remained encephalopathic. Ammonia had been elevated as high as 98 currently down to 43 on lactulose 30 mL every 4 hours and rifaximin 550 mg p.o. twice daily. He has participating in physical therapy but only able to ambulate a couple of steps and rehabilitative therapy is being recommended. He is having multiple loose/ liquid bowel movements daily but is requiring lactulose 4 times daily. Past medical history Depression Diabetes Alcohol abuse Esophageal varices GI bleed x2 secondary to esophageal variceal bleed in 2014 and 2016 Hypertension Anxiety Portal hypertension Colonic polyposis Surgical history EGD, colonoscopy 04/28 with esophageal banding for varices Paracentesis x6 Social history Every day smoker Continues to drink alcohol, 12+ beers plus Bacardi daily. Started drinking at age 13. Worsening since the recent of his 2 years ago. He remains very emotional and tearful discussing that. Currently on treatment through [facility] alcohol cessation. Positive for marijuana use. He is a Islam and refuses blood products. Family history Father of colon cancer at age 65. Mother alive and well at age 73 with diabetes. He has 3 brothers who are all alive and well. Function/Cognitive Trajectory: He has been residing in a homeless group home, independent for ADLs, receiving services through [facility] for alcoholism. Patient complained of severe abdominal pain yesterday with physical therapy and stated he could not get out of bed was only able to tolerate light range of motion exercises with the lower extremities. His prior attempts at physical therapy have been ambulating 2 steps forward and 2 steps backward with reported weakness in his legs requiring to rest breaks. . Review of Systems Constitutional: Reports weakness Respiratory: Reports shortness of breath Gastrointestinal: Reports abdominal pain, Reports loose stools Neurologic: Reports confusion PMFSH - History History 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, Gem Carver / EMT - Medical History Medical History: Medical History (Last Reviewed 02/07/18 @ 08:27 by Alexandra Alejandro Recreation Technician, [employer]IEF [employer]ICER) MDRO (multiple drug resistant organisms) resistance Onset Date: ~01/19/18 Depression Diabetes ETOH abuse Esophageal varices GI bleed HTN (hypertension) - Family History Family History: Family History (Last Reviewed 02/06/18 @ 08:30 by Viri Bean) Other Family history of cancer Family history of colon cancer - Tobacco History Second Hand Smoke Exposure: Yes Tobacco Use In Past 30 Days: Yes Smoking Status: Current every day smoker Tobacco Type: Cigarettes - Alcohol History How Often Do You Have a Drink Containing Alcohol: 2 to 3 times a week - Substance Use History Substance History: Active Abuse - Substance Use Type Marijuana Type: marijuana Status: Active Route Used: Inhalation Reason for Use: Calm Down - Travel History Recent Travel in the [place] Within the Last 8 Weeks: No Recent Travel Out of the Country Within the Last 8 Weeks: No - Immunization History Tetanus Immunization: >5 Years Hx Influenza Vaccine This Season: No Medications and Allergies Active Medications: Active Medications Al Hydroxide/Mg Hydroxide (Milk Of Magngrace Liq) 30 ml PO Q12H PRN PRN Reason: Mild Constipation Last Admin: 01/23/18 10:36 Dose: 30 ml Albuterol (Albuterol Neb (Prn)) 2.5 mg NEB Q2HR NEB PRN PRN Reason: DYSPNEA Last Admin: 01/28/18 04:21 Dose: 2.5 mg Artificial Tears (Tears Naturale Opth Drops) 1 drop EACH EYE Q8H [facility] Last Admin: 02/07/18 06:02 Dose: 1 drop Bisacodyl (Dulcolax Supp) 10 mg RECTAL DAILY PRN PRN Reason: SEVERE CONSITIPATION Bumetanide (Bumex) 0.5 mg PO DAILY [facility] Last Admin: 02/07/18 08:44 Dose: 0.5 mg Chlorhexidine Gluconate (Peridex 0.12% Oral Kit) 15 ml OROPHARYNG BID@0800, 2000 [facility] Last Admin: 02/06/18 21:28 Dose: Not Given Dextrose (D50w Vial) 50 ml IV.PUSH UNSCH PRN PRN Reason: PER HYPOGLYCEMIA PROTOCOL Enoxaparin Sodium (Lovenox Inj) 40 mg SQ Q24H [facility] Last Admin: 02/06/18 17:06 Dose: 40 mg Ferrous Sulfate (Ferosul) 325 mg PO BID@1200,1700 [facility] Last Admin: 02/06/18 17:06 Dose: 325 mg Glucagon (Glucagon Inj) 1 mg OTHER PRN PRN PRN Reason: for Hypoglycemia Protocol Insulin Aspart (Novolog Insulin Correctional Sugar Inj) 0 unit SQ Q6H [facility]; Protocol Last Admin: 02/07/18 06:02 Dose: Not Given Lactulose (Lactulose Liq) 30 ml PO Q4H [facility] Last Admin: 02/07/18 06:19 Dose: Not Given Miscellaneous (Pill Splitter) 1 each OTHER UNSCH [facility] Miscellaneous Medication () 1 each OROPHARYNG 0000,0400,1200,1600 [facility] Last Admin: 02/07/18 04:31 Dose: Not Given Multivitamins/Folic Acid/Vitamin C (Flintstones) 1 tab CHEW DAILY [facility] Last Admin: 02/07/18 08:44 Dose: 1 tab Ondansetron HCl (Zofran Inj) 4 mg IV.PUSH Q6H PRN PRN Reason: nausea and vomiting Last Admin: 02/07/18 08:44 Dose: 4 mg Pantoprazole Sodium (Protonix Inj) 40 mg IV.PUSH BID [facility] Last Admin: 02/06/18 21:34 Dose: 40 mg Pravastatin Sodium (Pravachol) 40 mg PO QPM [facility] Last Admin: 02/06/18 17:06 Dose: 40 mg Propranolol HCl (Inderal) 40 mg PO BID [facility] Last Admin: 02/07/18 08:44 Dose: 40 mg Rifaximin (Xifaxan) 550 mg PO Q12HR [facility] Last Admin: 02/07/18 08:45 Dose: 550 mg Senna/Docusate Sodium (Joanne-Colace) 1 tab PO BID [facility] Last Admin: 02/07/18 08:44 Dose: 1 tab Sennosides (Senokot) 17.2 mg PO Q12H PRN PRN Reason: Moderate Constipation Sodium Chloride (Ns Flush) 2 ml IV.FLUSH BID [facility] Last Admin: 02/07/18 08:51 Dose: 2 ml Sodium Chloride (Ns Flush) 2 ml IV.FLUSH PRN PRN PRN Reason: FLUSH AFTER USING IV ACCESS Valproate Sodium (Depakene Liq) 500 mg PO DAILY [facility] Last Admin: 02/07/18 08:45 Dose: 500 mg Allergies Allergy/AdvReac Type Severity Reaction Status Date / Time morphine Allergy Severe Shortness Verified 11/13/17 13:22 of Breath buspirone Allergy Intermediate Numbness Verified 11/13/17 13:22 Home Medications Medication Instructions Recorded Confirmed Type amlodipine 5 mg PO DAILY 11/13/17 01/15/18 History aspirin 81 mg PO DAILY 11/13/17 01/15/18 History atenolol 50 mg PO DAILY 11/13/17 01/15/18 History bumetanide 0.5 mg PO DAILY 11/13/17 01/15/18 History divalproex [Depakote] 500 mg PO DAILY 11/13/17 01/15/18 History donepezil 5 mg PO DAILY 11/13/17 01/15/18 History insulin NPH and regular human 1 sliding scale dose SUB-Q UD 11/13/17 01/15/18 History [Novolin 70/30 U-100 Insulin] lanthanum 500 mg PO DAILY 11/13/17 01/15/18 History lisinopril 40 mg PO DAILY 11/13/17 01/15/18 History lorazepam [Ativan] 0.5 mg PO BID 11/13/17 01/15/18 History mesalamine [Lialda] 1.2 g PO BID 11/13/17 01/15/18 History simvastatin 20 mg PO QPM 11/13/17 01/15/18 History tramadol 50 mg PO Q6H PRN 11/13/17 01/15/18 History vit B,O-ES-ratc-selen-vit D3-E 1 tab PO DAILY 11/13/17 01/15/18 History [RenaPlex-D] Advance Directives Living Will: No Healthcare Surrogate: No Power of Home Teaching Grades 9 Thru 12 Teacher: No Physical Exam Vital Signs: Vital Signs - 24 hr 02/06/18 12:00 02/06/18 16:00 02/06/18 20:00 Temperature 98.0 F 100.8 F H 101.1 F H Pulse Rate 75 81 91 H Respiratory Rate 18 18 20 Blood Pressure 107/58 L 109/60 117/65 Pulse Oximetry 99 95 95 02/06/18 21:42 02/07/18 00:00 02/07/18 04:00 Temperature 101.3 F H 99.3 F Pulse Rate 90 86 Respiratory Rate 20 20 Blood Pressure 135/72 126/73 Pulse Oximetry 98 95 92 L 02/07/18 08:00 Temperature 98.6 F Pulse Rate 86 Respiratory Rate 16 Blood Pressure 125/60 Pulse Oximetry 98 I&O: Intake & Output 02/05/18 02/06/18 02/07/18 02/08/18 06:59 06:59 06:59 06:59 Intake Total 720 / 720 1520 / 1520 900 / 900 Output Total 2250 / 2250 900 / 900 700 / 700 Balance -1530 / -1530 620 / 620 200 / 200 Weight 225 lb 8.526 oz 215 lb 13.321 oz Physical Exam: CONSTITUTIONAL/GENERAL: This is an adequately nourished patient, in no apparent distress. TUBES/LINES/DRAINS: PIV LFA SKIN: No jaundice, rashes, or lesions. Ecchymoses on upper extremities. No wounds seen anteriorly. Skin temperature appropriate. Not diaphoretic. HEAD: Atraumatic. Normocephalic. EYES: Pupils equal and round and reactive. Extraocular motions intact. No scleral icterus. No injection or drainage. Fundi not examined. ENT: Hearing grossly normal. Nose without bleeding or purulent drainage. Throat without visible erythema, exudates, masses, or lesions. NECK: Trachea midline. Supple, nontender. No palpable thyroid enlargement or nodularity. CARDIOVASCULAR: Regular rate and rhythm without murmurs, gallops, or rubs. No JVD. Peripheral pulses symmetric. RESPIRATORY/CHEST: Symmetric, unlabored respirations. Clear to auscultation. Breath sounds equal bilaterally. No wheezes, rales, or rhonchi. GASTROINTESTINAL: Abdomen soft, non-tender, nondistended. No guarding. Bowel sounds present. GENITOURINARY: Without palpable bladder distension. MUSCULOSKELETAL: Extremities without clubbing, cyanosis, or edema. No joint tenderness or effusion noted. No calf tenderness. No mottling or clubbing. LYMPHATICS: No palpable cervical or supraclavicular adenopathy. NEUROLOGICAL: Awake and alert. Motor and sensory grossly within normal limits. Follows commands. Cognitively slow. Moves all extremities. PSYCHIATRIC: Tearful at the mention of his 's passing, appears somewhat depressed. No hallucinations. . Diagnostic Tests Laboratory: Laboratory Results - last 72 hr 02/04/18 02/04/18 02/05/18 13:16 17:09 00:56 WBC RBC Hgb Hct MCV MCH MCHC RDW Plt Count MPV Neut % (Auto) Lymph % (Auto) [place] % (Auto) Eos % (Auto) Baso % (Auto) Neut # (Auto) Lymph # (Auto) [place] # (Auto) Eos # (Auto) Baso # (Auto) WBC Differential Differential Comment PT INR Sodium Potassium Chloride Carbon Dioxide Anion Gap BUN Creatinine Estimated GFR POC Glucose 144 H 137 H 113 H Random Glucose Calcium Magnesium Total Bilirubin AST ALT Alkaline Phosphatase Ammonia Total Protein Albumin 02/05/18 02/05/18 02/05/18 06:25 06:25 06:25 WBC 8.6 RBC 2.91 L Hgb 7.7 L Hct 23.0 L MCV 79.1 L MCH 26.5 L MCHC 33.5 RDW 19.4 H Plt Count 121 L D MPV 8.8 Neut % (Auto) 69.7 Lymph % (Auto) 8.8 L [place] % (Auto) 17.4 H Eos % (Auto) 3.1 Baso % (Auto) 1.0 Neut # (Auto) 6.0 Lymph # (Auto) 0.8 L [place] # (Auto) 1.5 H Eos # (Auto) 0.3 Baso # (Auto) 0.1 WBC Differential . Differential Comment Auto diff final PT INR Sodium 141 Potassium 3.6 Chloride 105 Carbon Dioxide 28.8 Anion Gap 7 BUN 6 L Creatinine 0.74 Estimated GFR Greater than 89 POC Glucose Random Glucose 126 H Calcium 8.2 L Magnesium 1.7 Total Bilirubin 1.3 H AST 57 H ALT 26 Alkaline Phosphatase 186 H Ammonia 43 H Total Protein 6.7 D Albumin 2.5 L 02/05/18 02/05/18 02/05/18 06:54 12:35 17:47 WBC RBC Hgb Hct MCV MCH MCHC RDW Plt Count MPV Neut % (Auto) Lymph % (Auto) [place] % (Auto) Eos % (Auto) Baso % (Auto) Neut # (Auto) Lymph # (Auto) [place] # (Auto) Eos # (Auto) Baso # (Auto) WBC Differential Differential Comment PT INR Sodium Potassium Chloride Carbon Dioxide Anion Gap BUN Creatinine Estimated GFR POC Glucose 138 H 143 H 168 H Random Glucose Calcium Magnesium Total Bilirubin AST ALT Alkaline Phosphatase Ammonia Total Protein Albumin 02/06/18 02/06/18 02/06/18 01:05 05:18 05:18 WBC 10.2 RBC 3.29 L Hgb 8.7 L Hct 26.2 L MCV 79.4 L MCH 26.3 L MCHC 33.1 RDW 19.8 H Plt Count 131 L MPV 8.6 Neut % (Auto) 71.0 H Lymph % (Auto) 8.7 L [place] % (Auto) 18.8 H Eos % (Auto) 1.0 Baso % (Auto) 0.5 Neut # (Auto) 7.2 Lymph # (Auto) 0.9 L [place] # (Auto) 1.9 H Eos # (Auto) 0.1 Baso # (Auto) 0.0 WBC Differential . Differential Comment Auto diff final PT INR Sodium 137 Potassium 3.2 L Chloride 99 Carbon Dioxide 31.1 Anion Gap 7 BUN 7 Creatinine 0.82 Estimated GFR Greater than 89 POC Glucose 152 H Random Glucose 161 H Calcium 8.5 Magnesium Total Bilirubin 1.5 H AST 47 H ALT 24 Alkaline Phosphatase 198 H Ammonia Total Protein 6.9 Albumin 2.7 L 02/06/18 02/06/18 02/06/18 05:18 05:42 12:15 WBC RBC Hgb Hct MCV MCH MCHC RDW Plt Count MPV Neut % (Auto) Lymph % (Auto) [place] % (Auto) Eos % (Auto) Baso % (Auto) Neut # (Auto) Lymph # (Auto) [place] # (Auto) Eos # (Auto) Baso # (Auto) WBC Differential Differential Comment PT INR Sodium Potassium Chloride Carbon Dioxide Anion Gap BUN Creatinine Estimated GFR POC Glucose 196 H 182 H Random Glucose Calcium Magnesium Total Bilirubin AST ALT Alkaline Phosphatase Ammonia 86 H Total Protein Albumin 02/06/18 02/07/18 02/07/18 17:08 01:54 05:34 WBC RBC Hgb Hct MCV MCH MCHC RDW Plt Count MPV Neut % (Auto) Lymph % (Auto) [place] % (Auto) Eos % (Auto) Baso % (Auto) Neut # (Auto) Lymph # (Auto) [place] # (Auto) Eos # (Auto) Baso # (Auto) WBC Differential Differential Comment PT INR Sodium Potassium Chloride Carbon Dioxide Anion Gap BUN Creatinine Estimated GFR POC Glucose 200 H 165 H 153 H Random Glucose Calcium Magnesium Total Bilirubin AST ALT Alkaline Phosphatase Ammonia Total Protein Albumin 02/07/18 02/07/18 02/07/18 06:56 06:56 06:56 WBC 9.4 RBC 2.87 L Hgb 7.7 L Hct 22.6 L MCV 78.6 L MCH 26.7 L MCHC 34.0 RDW 20.7 H Plt Count 120 L MPV 8.3 Neut % (Auto) 69.3 Lymph % (Auto) 9.3 [place] % (Auto) 19.0 H Eos % (Auto) 1.8 Baso % (Auto) 0.6 Neut # (Auto) 6.5 Lymph # (Auto) 0.9 L [place] # (Auto) 1.8 H Eos # (Auto) 0.2 Baso # (Auto) 0.1 WBC Differential . Differential Comment Auto diff final PT 12.8 H INR 1.3 Sodium 137 Potassium 3.5 Chloride 101 Carbon Dioxide 30.5 Anion Gap 6 BUN 7 Creatinine 0.85 Estimated GFR Greater than 89 POC Glucose Random Glucose 150 H Calcium 8.1 L Magnesium Total Bilirubin AST ALT Alkaline Phosphatase Ammonia Total Protein Albumin 02/07/18 06:56 WBC RBC Hgb Hct MCV MCH MCHC RDW Plt Count MPV Neut % (Auto) Lymph % (Auto) [place] % (Auto) Eos % (Auto) Baso % (Auto) Neut # (Auto) Lymph # (Auto) [place] # (Auto) Eos # (Auto) Baso # (Auto) WBC Differential Differential Comment PT INR Sodium Potassium Chloride Carbon Dioxide Anion Gap BUN Creatinine Estimated GFR POC Glucose Random Glucose Calcium Magnesium Total Bilirubin AST ALT Alkaline Phosphatase Ammonia 43 H Total Protein Albumin Result Diagrams: 02/07/18 06:56 02/07/18 06:56 Microbiology: Microbiology 01/21/18 09:17 Blood - Peripheral Aerobic Blood Culture - Final No growth in 5 days 01/21/18 09:17 Blood - Peripheral Anaerobic Blood Culture - Final No growth in 5 days 01/21/18 09:03 Blood - Peripheral Aerobic Blood Culture - Final No growth in 5 days 01/21/18 09:03 Blood - Peripheral Anaerobic Blood Culture - Final No growth in 5 days 01/19/18 15:30 Sputum - Endotracheal Gram Stain - Final 01/19/18 15:30 Sputum - Endotracheal Sputum Culture - Final S. aureus MRSA Imaging: Abdomen Ultrasound 01/15/18 00:00 CONCLUSION: 1. No significant ascites. Abdomen/Pelvis CT 01/15/18 07:18 CONCLUSION: 1. There is a very small ingested metallic foreign body in the mid transverse colon without evidence for colitis or perforation at this time. This does not have the typical appearance of a barbecue bristle although this cannot be entirely excluded. 2. Cirrhotic liver with evidence for portal hypertension and prominent gastroesophageal varices. There is no ascites although there is diffuse mesenteric edema. This is particularly prominent near the fourth portion of the duodenum. Suspect this is dependent mesenteric edema rather than duodenitis. 3. Additional ancillary findings, as above. Abdomen X-Ray 01/16/18 00:00 CONCLUSION: 1. 4 mm linear metallic density in the right mid quadrant possibly representing a small surgical clip. 2. Otherwise, unremarkable exam. Chest CT 01/16/18 00:00 CONCLUSION: 1. Mild infiltrates are noted in the posterior lower lung hussein bilaterally suggestive of atelectasis. Otherwise, lung hussein are grossly clear. 2. Nonspecific 1.5 cm lymph node in the anterior superior mediastinum. 3. Nonspecific thickening involving the distal esophagus. If clinically indicated, a barium swallow could be performed on a nonemergent outpatient basis. Soft Tissue Neck CT 01/16/18 00:00 CONCLUSION: 1. Grossly unremarkable CT soft tissue neck for patient's age. 2. Nonspecific 1.5 cm lymph node in the anterior superior mediastinum. Chest X-Ray 01/19/18 13:07 CONCLUSION: Intubation with endotracheal tube in good position. Venous Doppler Study 01/19/18 17:08 CONCLUSION: 1. Positive for nonocclusive deep venous thrombosis in the right mid brachial vein. Head CT 01/20/18 06:00 CONCLUSION: 1. Negative for an acute process . Chest X-Ray 01/21/18 00:00 CONCLUSION: Support equipment in good position. Small areas of atelectasis in both lung bases. Chest X-Ray 01/23/18 06:00 CONCLUSION: Mid inspiratory study with crowding of the lung vasculature. Chest X-Ray 01/26/18 09:58 CONCLUSION: Endotracheal tube appears appropriate in position, however, the nasogastric tube has been significantly retracted and the proximal port is now seen overlying the cervical spine. Recommend removal and replacement. Atelectasis within the inferior left hemithorax. Abdomen X-Ray 01/26/18 21:26 CONCLUSION: Gastric tube tip and side-port project over the mid abdomen. Venous Doppler Study 01/27/18 00:00 CONCLUSION: The study is negative for upper extremity deep venous thrombosis. Chest X-Ray 01/30/18 11:00 CONCLUSION: Minimal improving atelectasis or consolidation at the left base. Chest X-Ray 01/31/18 03:21 CONCLUSION: Basilar density, probably atelectasis. Nasogastric tube present. Chest X-Ray 02/01/18 10:19 CONCLUSION: NG tube tip directed into the distal stomach. Procedures: 01/16: EGD with esophageal banding. 01/20: Intubation . Patient/Family Conference Present at Family Conference: No family at bedside. He has 3 brothers but does not have any of the numbers with him. He states he wishes to have his brother, Pillo, be his healthcare decision maker but has no contact information. Have left a message on his possible phone to try to establish contact. Pending callback. Plan to discuss below listed items, palliative care purpose and focus, regarding his brother and his request for Pillo to be his healthcare surrogate. Accurints has been requested. . Family Conference Location: Other (Telephone message left, pending callback to ascertain correct number.) Issues Discussed: * Palliative care role, purpose, approach * Additional medical, psychosocial, and spiritual history * Patients general health, functional status, and cognitive changes in the months leading up to the current hospitalization * Patient/family understanding of the current medical problems * Patient/family understanding of prognosis * Patients goals of care as best understood from advance directives and/or conversations and/or values * Current medical treatment options and benefits/burdens of those options * Likely scenarios comparing ongoing aggressive care with a transition to comfort measures only * Questions answered to the best of my ability * Palliative care contact information provided Assessment and Plan Pertinent Non-Medical Issues: Psychosocial: He was born in the [place] and 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 He moved to [place] 24 years ago. He was to his for 25 years prior to her 2 years ago. He has no children. He has 3 brothers but does not have contact information with him for any of them. One lives in [place], one in [place] and one in [place]. Spiritual: He is a Islam Legal: No advance directives completed. Ethical issues impacting care: Patient lives in a homeless group home and has intermittent confusion when ammonia levels are elevated. . Important Contacts: Brother: Pillo Koroma, number unknown at this time . Prognosis: His prognosis is guarded. He has significant cirrhosis with recurrent ascites, esophageal varices and portal hypertension. He continues to drink in spite of being on a cessation protocol through [facility]. His ammonia is chronically elevated requiring lactulose every 4 hours and he has been noncompliant with medical therapy. It is unlikely that he will continue his medications once discharged and may also have difficulty maintaining alcohol cessation. He is at elevated risk of continued complications and decline. . Code Status: Full Code Plan: PLAN: Legal decision maker: At this time he appears capacitated to make his own decisions. He is alert, oriented and answering appropriately. He has requested that his brother, Pillo Koroma, be his decision maker in case of his incapacitation, however at this time has no contact information for Pillo. Via [employer] search a possible number has been identified and a message left for call back to establish identity. Patient's mother is alive and would be the next tier decision-maker should the patient become incapacitated. No contact information is available for her at this time either. Goals: Aggressive CODE STATUS: FULL CODE SYMPTOMS: * Weakness: Generalized weakness. Participating with PT but overall grossly debilitated. [facility] for [facility]. * Diarrhea: On lactulose to decrease ammonia level. Patient is aware that he needs to be compliant with the lactulose in order to maintain his ammonia level , in spite of stool liquidity and frequency. SUMMARY This is a 52-year-old male with a long history of alcoholism, having started drinking when he was 13 years old. He is currently under treatment at [facility] for alcoholism and resides in the homeless [facility]. He has cirrhosis of the liver and at this time hepatitis panel is pending. He has hyperammonemia which will require chronic care. He has had 6 paracentesis so far. There is no significant ascites at this time, however he has a long history of medical noncompliance and recurrent alcohol use in spite of medical support treatment and is at risk for further complications secondary to established liver disease and noncompliance. His goals remain aggressive. Palliative care will continue to follow the patient during hospital course as condition evolves, to assist patient/decision-maker with understanding of their medical conditions, weighing benefits/burdens of treatment options, for clarification of goals of treatment. Additionally will assist with any symptoms of palliative concern. . Appreciation Thank you for the opportunity to participate in the care of Noe Koroma. Attestation Attestation: To help prompt me to consider important information that might be impacting today's encounter and assessment, information from prior notes written by myself or my colleagues may have been "brought forward" into today's note. My signature on this note, however, is an attestation that I personally performed the exam, history, and/or decision-making noted today, and, unless otherwise indicated, the interactions with patient, family, and staff as well as the review of records all occurred today. I also attest that the listed assessment and stated plan reflect my best clinical judgment today based on the combination of historical information, prior notes, and today's exam/ interactions. When time spent is documented, it refers only to time spent today by the signer, or if indicated, combined time spent today by collaborating physician/nurse practitioner. .
--- NOTE | 2018-02-07 12:05 | P.PNPL ---
Subjective Interval history: 52 YO male with GIB, cirrhosis Developed resp distress, agitation Extubated 01/27 Alert, awake, follows commands Denies sob Ambulates No new complaint Physical Exam Vital signs: Vital Signs 02/06/18 16:00 02/06/18 20:00 02/06/18 21:42 Temperature 100.8 F H 101.1 F H Pulse Rate 81 91 H Respiratory Rate 18 20 Blood Pressure 109/60 117/65 Pulse Oximetry 95 95 98 02/07/18 00:00 02/07/18 04:00 02/07/18 08:00 Temperature 101.3 F H 99.3 F 98.6 F Pulse Rate 90 86 86 Respiratory Rate 20 20 16 Blood Pressure 135/72 126/73 125/60 Pulse Oximetry 95 92 L 98 02/07/18 12:03 Temperature Pulse Rate Respiratory Rate Blood Pressure Pulse Oximetry 98 Intake & Output 02/06/18 02/07/18 02/07/18 18:59 06:59 18:59 Intake Total 480 / 480 420 / 420 Output Total 700 / 700 Balance 480 / 480 -280 / -280 Intake: Oral 480 / 480 420 / 420 Output: Urine 700 / 700 Other: # Voids 2 Date of Last Bowel Movement 02/06/18 GENERAL: WBWn NAD SKIN: Warm and dry. HEAD: Normocephalic. EYES: No scleral icterus. No injection or drainage. NECK: Supple, trachea midline. No JVD or lymphadenopathy. CARDIOVASCULAR: Regular rate and rhythm without murmurs, gallops, or rubs. RESPIRATORY: Breath sounds equal bilaterally. No accessory muscle use. GASTROINTESTINAL: Abdomen soft, non-tender, nondistended. MUSCULOSKELETAL: No cyanosis, or edema. BACK: Nontender without obvious deformity. No CVA tenderness. - Urinary Catheter Management Straight Cath placed during this visit: yes, but has since been removed by the nurse Reason for continuing: Not indwelling catheter Insertion date: 01/26/18 Insertion time: 17:30 Removal date: 01/26/18 Removal time: 17:35 Condom Cath placed during this visit: no 400 Cath placed during this visit: no Assessment and Plan - Plan IMPRESSION: 1. Mild shortness of breath and cough, possibly underlying asthma. 2. Hypertension. 3. Diabetes mellitus. 4. Cirrhosis of the liver. 5. VDRF, s/p extubation 01/27 6. Encephalopathy. PLAN: Protonix 40 mg daily Monitor Ammonia level. Stable on RA Aerosol nebs SQ Lovenox Stable from Pulm standpoint.
[2018-02-07 12:22] LABS: Hepatitits B Surface Antigen Nonreactive (Nonreactive)
[2018-02-07] MEDS: Ferrous Sulfate 325 MG Tablet PO SCH ×2 (12:40→18:10)
[2018-02-07] MEDS: Chlorhexidine 0.12% Oral Kit 15 ML UDC OROPHARYNG SCH ×2 (12:43→20:52)
[2018-02-07 12:49] LABS: Hepatitis A IgM Antibody Nonreactive (Nonreactive)
--- NOTE | 2018-02-07 13:41 | XR ---
EXAM DATE: 02/07/2018 1:38 PM EST AGE/SEX: 52 years / Male INDICATIONS: . Fever. CLINICAL DATA: This is the patient's initial encounter. Patient reports that signs and symptoms have been present for 1 day and indicates a pain score of 0/10. MEDICAL/SURGICAL HISTORY: Hypertension. Diabetes. Depression. GI bleed. None. None. COMPARISON: [facility] – [place], CT ABDOMEN & PELVIS W CONTRAST, 01/15/2018. . Chest x-ray 02/01/2018 FINDINGS: No new focal pleural or parenchymal opacities. The cardiomediastinal contours are unremarkable. Mild compression deformity of the superior endplate of L1 vertebral body. This appears unchanged from prio r CT exam. CONCLUSION: 1. No acute cardiopulmonary disease. Electronically signed by: Ernie Dyer MD 02/07/2018 1:40 PM EST
[2018-02-07] MEDS: Enoxaparin Inj 40 MG/0.4 ML Syringe SQ SCH (14:23)
--- NOTE | 2018-02-07 15:20 | P.PNWCN ---
Wound Care Nurse Consult Description: Received Pressure ulcer consult for early sacral and heel areas from Doctor Irving Communicated with: RN Saskia Miller RN [address] [place] [address] Recommendation: 1.Please cleanse partial thickness wounds to bilateral inner buttocks with normal saline and pat dry. Please cleanse patient of stool with Remedy barrier wipes and pat dry. Apply Calazime skin protectant paste BID and PRN to buttock and gluteal cleft areas covering partial thickness skin loss that is moisture related, and leave open to air. 2.Encourage patient to turn himself and reposition in bed at least every 2 hours avoiding laying on back 3.Do not use cotton pads on bed use ultrasorb pad. 4.Apply Cavilon skin barrier film to DTI on R heel BID and leave open to air. 5.Float heels with pillow or apply heel raiser boots Wound/Pressure Injury - Wound Right Heel Wound Staging: DTI Wound Type: Pressure Injury Is This a Chronic Wound: No Requested from Provider a Wound Care Consult: Yes (Wound care inpatient saw patient today) Length (cm): 4 Width (cm): 4 Depth (cm): 0 (intact skin with purple discoloration that is non blanchable) Surrounding Tissue Appearance: [place] Surrounding Tissue Temperature: Cool Drainage Amount: None Drainage Odor: No Odor Dressing Status: Open to Air Topical: Cavilon skin barrier film spray - Additional Information Patient seen for evaluation of pressure ulcer to early sacral and heel areas. Patient is laying in bed when comic book writer arrived positioned on back. Assessed patient's heels, R heel is noted with non blanchable, purple, boggy, discoloration to intact skin. Apply Cavilon spray to R heel and left open to air. Heel was floated off mattress. Patient then turned toward the L side without assistance and removed saturated brief to reveal partial thickness wounds to bilateral inner buttock that are dry with dried yellow exudate, periwound presents with pink colored denuded skin , that is blanchable. Wound margins are jagged. Wound etiology appears to be moisture and not pressure related. Patient admits to having loose stools recently. Wounds were cleansed with normal saline and patted dry. Applied Calazime skin protectant paste to bilateral inner buttock and gluteal cleft, covering wounds and left these areas open to air.
[2018-02-08] MEDS: Oral Hygiene Kit OROPHARYNG SCH ×4 (00:22→15:11)
[2018-02-08] MEDS: Insulin NovoLOG Aspart Correctional Sugar Inj SQ SCH ×4 (05:12→23:32)
[2018-02-08] MEDS: Artificial Tears Opth Drops 15 ML Bottle EACH EYE SCH ×3 (05:13→23:16)
[2018-02-08] MEDS: Chlorhexidine 0.12% Oral Kit 15 ML UDC OROPHARYNG SCH ×2 (07:34→22:07)
[2018-02-08] MEDS: Pantoprazole Inj 40 MG Vial IV.PUSH SCH ×2 (09:37→22:11)
[2018-02-08] MEDS: rifAXIMin 550 MG Tablet PO SCH ×2 (09:38→22:07)
[2018-02-08] MEDS: Senna/Docusate Sodium 8.6/50 MG Tablet PO SCH ×2 (09:38→22:08)
[2018-02-08] MEDS: Multivit/Folic Acid/Minerals Chewable Tablets CHEW SCH (09:38)
[2018-02-08] MEDS: Propranolol 40 MG Tablet PO SCH ×2 (09:38→22:07)
[2018-02-08] MEDS: Sodium Chloride 0.9% 2 ML Flush BID IV.FLUSH SCH ×2 (09:39→22:10)
[2018-02-08 09:57] LABS: Baso % (Auto) 0.3 % (0.0-2.0); Eos # (Auto) 0.1 th/mm3 (0.0-0.4); Eos % (Auto) 1.2 % (0.0-4.0); Hematocrit 29.4 % (39.0-51.0); Hemoglobin 9.3 gm/dL (13.0-17.0); Lymph # (Auto) 0.8 th/mm3 (1.0-4.8); Lymph % (Auto) 7.7 % (9.0-44.0); Mean Corpuscular HGB Conc 31.5 % (32.0-36.0); Mean Corpuscular Hemoglobin 25.4 pg (27.0-34.0); Mean Corpuscular Volume 80.7 fL (80.0-100.0); Mean Platelet Volume 8.3 fL (7.0-11.0); Mono # (Auto) 1.6 th/mm3 (0.0-0.9); Mono % (Auto) 16.2 % (0.0-8.0); Neut # (Auto) 7.6 th/mm3 (1.8-7.7); Neut % (Auto) 74.6 % (16.0-70.0); Platelet Count 116 th/mm3 (150-450); Red Blood Count 3.64 mil/mm3 (4.50-5.90); Red Cell Distribution Width 22.2 % (11.6-17.2); White Blood Count 10.2 th/mm3 (4.0-11.0)
[2018-02-08 10:17] LABS: Anion Gap 8 meq/L (5-15); Blood Urea Nitrogen 5 mg/dL (7-18); Calcium 8.7 mg/dL (8.5-10.1); Carbon Dioxide 28.3 meq/L (21.0-32.0); Chloride 99 meq/L (98-107); Glomerular Filtration Rate Greater Than 89 mL/min (>89); Glucose,Random 188 mg/dL (74-106); Potassium 3.9 meq/L (3.5-5.1)
[2018-02-08 10:20] LABS: Sodium 135 meq/L (136-145)
[2018-02-08] MEDS: Ferrous Sulfate 325 MG Tablet PO SCH ×2 (12:00→18:41)
--- NOTE | 2018-02-08 12:20 | P.PNFP ---
Subjective Interval history: No acute events overnight. He did have mild fever overnight, he reports that the room was hot and then he turned the AC down. He denies chills, headache, nausea, shortness of breath, chest pain, palpitations, abdominal pain, and melena. He does state that his left hip has been hurting due to his position in the bed. <Sin Victoria - 02/08/18 12:59> Results - Labs Result diagrams: 02/10/18 09:14 02/08/18 09:23 <Antelmo Olvera - 02/10/18 13:57> Abnormal lab results 02/09/18 02/10/18 02/10/18 Range/Units 18:24 00:05 06:21 RBC (4.50-5.90) mil/mm3 Hgb (13.0-17.0) gm/dL Hct (39.0-51.0) % MCH (27.0-34.0) pg RDW (11.6-17.2) % [place] % (Auto) (0.0-8.0) % [place] # (Auto) (0.0-0.9) th/mm3 POC Glucose 172 H 156 H 156 H (68-110) mg/dl Ammonia (11-32) mcmol/L 02/10/18 02/10/18 02/10/18 Range/Units 09:14 09:14 12:25 RBC 3.70 L (4.50-5.90) mil/mm3 Hgb 9.7 L (13.0-17.0) gm/dL Hct 30.3 L (39.0-51.0) % MCH 26.3 L (27.0-34.0) pg RDW 23.5 H (11.6-17.2) % [place] % (Auto) 16.5 H (0.0-8.0) % [place] # (Auto) 1.5 H (0.0-0.9) th/mm3 POC Glucose 149 H (68-110) mg/dl Ammonia 44 H (11-32) mcmol/L Short CBC 02/10/18 Range/Units 09:14 WBC 9.3 (4.0-11.0) th/mm3 Hgb 9.7 L (13.0-17.0) gm/dL Hct 30.3 L (39.0-51.0) % Plt Count 169 D (150-450) th/mm3 <Antelmo Olvera - 02/10/18 13:57> Abnormal lab results 02/07/18 02/07/18 02/08/18 Range/Units 16:46 23:34 05:10 RBC (4.50-5.90) mil/mm3 Hgb (13.0-17.0) gm/dL Hct (39.0-51.0) % MCH (27.0-34.0) pg MCHC (32.0-36.0) % RDW (11.6-17.2) % Plt Count (150-450) th/mm3 Neut % (Auto) (16.0-70.0) % Lymph % (Auto) (9.0-44.0) % [place] % (Auto) (0.0-8.0) % Lymph # (Auto) (1.0-4.8) th/mm3 [place] # (Auto) (0.0-0.9) th/mm3 Sodium (136-145) meq/L BUN (7-18) mg/dL POC Glucose 196 H 216 H 207 H (68-110) mg/dl Random Glucose (74-106) mg/dL Ammonia (11-32) mcmol/L 02/08/18 02/08/18 02/08/18 Range/Units 09:23 09:23 09:23 RBC 3.64 L (4.50-5.90) mil/mm3 Hgb 9.3 L (13.0-17.0) gm/dL Hct 29.4 L (39.0-51.0) % MCH 25.4 L (27.0-34.0) pg MCHC 31.5 L (32.0-36.0) % RDW 22.2 H (11.6-17.2) % Plt Count 116 L (150-450) th/mm3 Neut % (Auto) 74.6 H (16.0-70.0) % Lymph % (Auto) 7.7 L (9.0-44.0) % [place] % (Auto) 16.2 H (0.0-8.0) % Lymph # (Auto) 0.8 L (1.0-4.8) th/mm3 [place] # (Auto) 1.6 H (0.0-0.9) th/mm3 Sodium 135 L (136-145) meq/L BUN 5 L (7-18) mg/dL POC Glucose (68-110) mg/dl Random Glucose 188 H (74-106) mg/dL Ammonia 56 H (11-32) mcmol/L Short CBC 02/08/18 Range/Units 09:23 WBC 10.2 (4.0-11.0) th/mm3 Hgb 9.3 L (13.0-17.0) gm/dL Hct 29.4 L (39.0-51.0) % Plt Count 116 L (150-450) th/mm3 BMP 02/08/18 09:23 Sodium 135 L Potassium 3.9 Chloride 99 Carbon Dioxide 28.3 BUN 5 L Creatinine 0.80 Calcium 8.7 <Sin Victoria - 02/08/18 12:20> - Imaging Impressions Chest X-Ray 02/07/18 00:00 CONCLUSION: 1. No acute cardiopulmonary disease. <Sin Victoria - 02/08/18 12:20> Physical Exam Vital signs: Vital Signs 02/09/18 16:00 02/09/18 19:54 02/09/18 20:00 Temperature 97.8 F 100.1 F H Pulse Rate 82 86 80 Respiratory Rate 18 20 Blood Pressure 96/59 L 125/69 Pulse Oximetry 96 97 02/09/18 23:55 02/10/18 00:00 02/10/18 04:00 Temperature 98.4 F 98.7 F Pulse Rate 85 86 83 Respiratory Rate 16 18 Blood Pressure 109/58 L 109/64 Pulse Oximetry 93 L 96 02/10/18 04:02 02/10/18 08:00 02/10/18 12:00 Temperature 97.9 F 99.3 F Pulse Rate 69 67 70 Respiratory Rate 17 17 Blood Pressure 120/63 117/73 Pulse Oximetry 97 98 Intake & Output 02/09/18 02/10/18 02/10/18 18:59 06:59 18:59 Intake Total 720 / 720 480 / 480 Output Total 1700 / 1700 Balance -980 / -980 480 / 480 Intake: Oral 720 / 720 480 / 480 Output: Urine 1700 / 1700 Other: # Bowel Movements 2 2 <Olvera,Antelmo - 02/10/18 13:57> Vital Signs 02/07/18 16:00 02/07/18 17:31 02/07/18 20:00 Temperature 100.7 F H 100.6 F H Pulse Rate 82 84 Respiratory Rate 18 18 Blood Pressure 135/76 150/66 H Pulse Oximetry 96 98 98 02/08/18 00:00 02/08/18 04:00 02/08/18 08:00 Temperature 99.8 F H 99.5 F 100.5 F H Pulse Rate 87 91 H 89 Respiratory Rate 20 16 18 Blood Pressure 162/83 H 150/72 H 145/81 H Pulse Oximetry 98 97 98 Intake & Output 02/07/18 02/08/18 02/08/18 18:59 06:59 18:59 Intake Total 708 / 708 300 / 300 Output Total 800 / 800 Balance 708 / 708 -500 / -500 Weight 97.9 kg Intake: Oral 708 / 708 300 / 300 Output: Urine 800 / 800 Other: # Voids 8 3 Date of Last Bowel Movement 02/07/18 # Bowel Movements 2 <Sin Victoria - 02/08/18 12:20> Narrative: General: Well-developed, alert, and in no acute distress. Neurologic: Oriented x3 HEENT: Atraumatic, moist mucous membranes Neck: Supple, trachea midline Cardiac: Regular rate and rhythm without murmurs Pulmonary: Non-labored breathing. Lungs clear to auscultation bilaterally with good air movement Abdomen: Normal bowel sounds, soft and non-tender without rebound or guarding Extremities: No edema, 2+ pedal pulses, capillary refill less than 2 seconds Tenderness to deep palpation over the left femoral trochanter Skin: Stage I sacral ulcer without signs of infection, stage I ulcer to the heel <Sin Victoria - 02/08/18 14:43> - Urinary Catheter Management 400 Cath placed during this visit: no <Antelmo Olvera - 02/10/18 13:57> no <Sin Victoria - 02/08/18 14:43> Condom Cath placed during this visit: no <Antelmo Olvera - 02/10/18 13:57> no <Sin Victoria - 02/08/18 14:43> Straight Cath placed during this visit: no <Antelmo Olvera - 02/10/18 13:57> yes, but has since been removed by the nurse <NedadaisyJorge thomsonpietro Rashid - 02/08/18 14:43> Reason for continuing: Not indwelling catheter <NedasanthoshJorgeSin J - 12:20> Insertion date: 01/26/18 <NedasanthoshSin J - 02/08/18 12:20> Insertion time: 17:30 <NedadaisyMary thomsonlorenzo Rashid - 02/08/18 12:20> Removal date: 01/26/18 <NedasanthoshJorgeSin J - 02/08/18 12:20> Removal time: 17:35 <NedadaisySin thomson Gay - 02/08/18 12:20> Assessment and Plan - Assessment (1) Abdominal pain Code(s): R10.9 - Unspecified abdominal pain Status: Resolved (2) Esophageal varices in cirrhosis Code(s): K74.60 - Unspecified cirrhosis of liver; I85.10 - Secondary esophageal varices without bleeding Status: Chronic (3) Hypertension Code(s): I10 - Essential (primary) hypertension Status: Chronic (4) Alcohol abuse Code(s): F10.10 - Alcohol abuse, uncomplicated Status: Chronic (5) Depression with anxiety Code(s): F41.8 - Other specified anxiety disorders Status: Chronic (6) Cough Code(s): R05 - Cough Status: Resolved (7) Diabetes Code(s): E11.9 - Type 2 diabetes mellitus without complications Status: Chronic (8) Deep vein thrombosis (DVT) of brachial vein Code(s): I82.629 - Acute embolism and thrombosis of deep veins of unspecified upper extremity Status: Acute (9) Chest pain Code(s): R07.9 - Chest pain, unspecified Status: Resolved (10) Alcohol withdrawal Code(s): F10.239 - Alcohol dependence with withdrawal, unspecified Status: Resolved <Antelmo Olvera - 02/10/18 13:57> (1) Abdominal pain Code(s): R10.9 - Unspecified abdominal pain Status: Resolved (2) Esophageal varices in cirrhosis Code(s): K74.60 - Unspecified cirrhosis of liver; I85.10 - Secondary esophageal varices without bleeding Status: Chronic (3) Hypertension Code(s): I10 - Essential (primary) hypertension Status: Chronic (4) Alcohol abuse Code(s): F10.10 - Alcohol abuse, uncomplicated Status: Chronic (5) Depression with anxiety Code(s): F41.8 - Other specified anxiety disorders Status: Chronic (6) Cough Code(s): R05 - Cough Status: Resolved (7) Diabetes Code(s): E11.9 - Type 2 diabetes mellitus without complications Status: Chronic (8) Deep vein thrombosis (DVT) of brachial vein Code(s): I82.629 - Acute embolism and thrombosis of deep veins of unspecified upper extremity Status: Acute (9) Chest pain Code(s): R07.9 - Chest pain, unspecified Status: Acute (10) Alcohol withdrawal Code(s): F10.239 - Alcohol dependence with withdrawal, unspecified Status: Resolved <Sin Victoria - 02/08/18 14:42> - Assessment and Plan Patient is a 52-year-old male with medical history significant for alcoholism, cirrhosis, and esophageal varices who was admitted with esophageal varices, status post banding x4. He has had altered mental status for most of his hospitalization. He was intubated, and then extubated on 01/27. Repeat EGD on 02/05 showed no active bleed. He continues to have some mild confusion. Esophageal varices in the context of cirrhosis: -Status post banding x4. -H&H decreased 9.3 today. Up from 7.7 yesterday. Hemoccult performed yesterday was negative. -EGD repeated without active bleeds 02/05, gastroenterology has signed off -His altered mental status is likely secondary to his liver disease. We are unsure of his baseline, however he is significantly less confused now. He is now oriented x3. -Ammonia level still elevated, has been refusing lactulose, was given 1 dose yesterday. Extensive discussion occurred today about the benefits of lactulose. He agreed to take it at least twice a day now. Today his ammonia was 56, up from 43 yesterday. -Continue lactulose 4 times a day and Xifaxan 550 twice daily -His liver damage is certainly related to his alcohol use, hepatitis panel yesterday was negative -Continue IV Protonix BID -Propranolol 40mg BID Sacral ulcer: Stage I sacral ulcer Wound care nurse was consulted yesterday, please see their note for current wound care recommendations Fever: -He has had some SOB in during this hospitalization, however he denies it today. He was extubated on 01/27 -Fever overnight with a high of 100.7. -CXR x-ray showed no acute disease Hypertension: -Amlodipine discontinued due to borderline hypotension, BP has been stable since -Bumex 0.5 mg daily -Propranolol as above Hyperlipidemia: -Continue home medication pravastatin 40 mg p.o. nightly Hypokalemia: -He has had some mild hypokalemia throughout his hospitalization. -Monitor and correct as needed Type 2 diabetes mellitus: -Low dose SS insulin, he only received 2 units yesterday -He is continued to have blood sugars in the upper 100s and low 200s -Add Levemir 5 units twice daily DVT of brachial vein (right): -Last ultrasound on 01/28 was negative for DVT, DVT last seen the ultrasound on 01/19 -Decision and amount of anticoagulation is complicated due to his variceal bleed. -We are following critical care as recommendation of the Lovenox 40mg daily Alcohol withdrawal: resolved He has a significant history of alcohol abuse and had been receiving treatment at [facility]. He had not been sober at the time of admission. He was transferred to the ICU secondary to withdraw. This has now resolved and he is not currently on any benzodiazepines. Fluids: Adequate p.o. intake Electrolytes: monitor and replete as needed Nutrition: Regular diet GI prophylaxis: IV Protonix VTE prophylaxis: Lovenox 40mg q24 Disposition: He will need physical therapy at rehab, however he is not currently medically stable for discharge. He reports his primary care is through [facility]. Patient was seen and examined with Drs. Campbell and May <Sin Victoria - 02/08/18 14:42> - Attending Attestation See the residents documentation for details. I saw and evaluated the patient regarding the [place] portions of this evaluation and agree with the residents findings and plans as written. Parts of this note were created using [employer] voice recognition software program. While efforts were made to correct any mistakes made by this software, some mistakes, errors, and omissions may remain in the final note that were not caught when the note was originally created. Plan of care was discussed and agreed upon with the patient as specifically documented in the above note. An opportunity to ask questions with explanation was provided. Patient voiced understanding on all information reviewed and discussed. <Antelmo Olvera - 02/10/18 13:57>
[2018-02-08] MEDS: Enoxaparin Inj 40 MG/0.4 ML Syringe SQ SCH (16:00)
[2018-02-08] MEDS: Lidocaine 5% Patch T-DERMAL SCH (18:41)
[2018-02-08] MEDS: Insulin Detemir Inj 1,000 UNIT/10 ML Vial SQ SCH (22:16)
[2018-02-09] MEDS: Oral Hygiene Kit OROPHARYNG SCH ×4 (00:49→16:44)
[2018-02-09] MEDS: Insulin NovoLOG Aspart Correctional Sugar Inj SQ SCH ×3 (05:47→18:50)
[2018-02-09] MEDS: Artificial Tears Opth Drops 15 ML Bottle EACH EYE SCH ×2 (05:48→14:00)
[2018-02-09 07:32] LABS: Bacteria,Urine Occasional /hpf; Bilirubin,Urine Negative (Negative); Clarity,Urine Clear (Clear); Color,Urine Yellow (Yellw/Straw); Glucose,Urine (UA) Negative (Negative); Leukocyte Esterase,Urine Negative (Negative); Mucus,Urine Few /lpf (Occasional); Nitrite,Urine Negative (Negative); Specific Gravity,Urine 1.008 (1.002-1.035); Squamous Epithelial Cell,Urine <1 /hpf (0-5)
[2018-02-09] MEDS: Chlorhexidine 0.12% Oral Kit 15 ML UDC OROPHARYNG SCH ×2 (09:32→20:35)
[2018-02-09] MEDS: Pantoprazole Inj 40 MG Vial IV.PUSH SCH ×2 (09:37→20:42)
[2018-02-09] MEDS: rifAXIMin 550 MG Tablet PO SCH ×2 (09:38→20:41)
[2018-02-09] MEDS: Sodium Chloride 0.9% 2 ML Flush BID IV.FLUSH SCH ×2 (09:38→20:41)
[2018-02-09] MEDS: Insulin Detemir Inj 1,000 UNIT/10 ML Vial SQ SCH ×2 (09:38→20:49)
[2018-02-09] MEDS: Senna/Docusate Sodium 8.6/50 MG Tablet PO SCH ×2 (09:38→20:41)
[2018-02-09] MEDS: Multivit/Folic Acid/Minerals Chewable Tablets CHEW SCH (09:38)
[2018-02-09] MEDS: Propranolol 40 MG Tablet PO SCH ×2 (09:38→20:42)
[2018-02-09] MEDS: Lidocaine 5% Patch T-DERMAL SCH (09:39)
[2018-02-09] MEDS: Ferrous Sulfate 325 MG Tablet PO SCH ×2 (12:13→16:45)
--- NOTE | 2018-02-09 12:38 | P.PNFP ---
Subjective Interval history: No acute events overnight. He reports that he has not been taking his lactulose because he is sometimes unable to make it to the bedside commode. He also is refusing blood draws this morning. He says were are taking too much blood from him. He denies lightheadedness, dizziness, nausea, vomiting, chest pain, palpitations, abdominal pain. He still seems mildly confused, however this is his baseline. He is oriented x3. <Sin Victoria - 02/09/18 12:37> Results - Labs Result diagrams: 02/10/18 09:14 02/08/18 09:23 <Antelmo Olvera - 02/10/18 14:55> Abnormal lab results 02/09/18 02/10/18 02/10/18 Range/Units 18:24 00:05 06:21 RBC (4.50-5.90) mil/mm3 Hgb (13.0-17.0) gm/dL Hct (39.0-51.0) % MCH (27.0-34.0) pg RDW (11.6-17.2) % [place] % (Auto) (0.0-8.0) % [place] # (Auto) (0.0-0.9) th/mm3 POC Glucose 172 H 156 H 156 H (68-110) mg/dl Ammonia (11-32) mcmol/L 02/10/18 02/10/18 02/10/18 Range/Units 09:14 09:14 12:25 RBC 3.70 L (4.50-5.90) mil/mm3 Hgb 9.7 L (13.0-17.0) gm/dL Hct 30.3 L (39.0-51.0) % MCH 26.3 L (27.0-34.0) pg RDW 23.5 H (11.6-17.2) % [place] % (Auto) 16.5 H (0.0-8.0) % [place] # (Auto) 1.5 H (0.0-0.9) th/mm3 POC Glucose 149 H (68-110) mg/dl Ammonia 44 H (11-32) mcmol/L Short CBC 02/10/18 Range/Units 09:14 WBC 9.3 (4.0-11.0) th/mm3 Hgb 9.7 L (13.0-17.0) gm/dL Hct 30.3 L (39.0-51.0) % Plt Count 169 D (150-450) th/mm3 <Antelmo Olvera - 02/10/18 14:55> Abnormal lab results 02/08/18 02/08/18 02/09/18 Range/Units 17:21 23:30 05:46 POC Glucose 153 H 186 H 158 H (68-110) mg/dl Urine Bacteria (None) /hpf Urine Mucus (Occasional) /lpf 02/09/18 02/09/18 Range/Units 07:08 12:15 POC Glucose 230 H (68-110) mg/dl Urine Bacteria Occasional H (None) /hpf Urine Mucus Few H (Occasional) /lpf Urine 02/09/18 Range/Units 07:08 Urine Color Yellow (Yellw/Straw) Urine Clarity Clear (Clear) Urine pH 7.0 (5.0-8.5) Ur Specific [place] 1.008 (1.002-1.035) Urine Protein Negative (Neg-Trace) mg/dL Urine Glucose (UA) Negative (Negative) mg/dL <Sin Victoria - 02/09/18 12:37> Physical Exam Vital signs: Vital Signs 02/09/18 16:00 02/09/18 19:54 02/09/18 20:00 Temperature 97.8 F 100.1 F H Pulse Rate 82 86 80 Respiratory Rate 18 20 Blood Pressure 96/59 L 125/69 Pulse Oximetry 96 97 02/09/18 23:55 02/10/18 00:00 02/10/18 04:00 Temperature 98.4 F 98.7 F Pulse Rate 85 86 83 Respiratory Rate 16 18 Blood Pressure 109/58 L 109/64 Pulse Oximetry 93 L 96 02/10/18 04:02 02/10/18 08:00 02/10/18 12:00 Temperature 97.9 F 99.3 F Pulse Rate 69 67 70 Respiratory Rate 17 17 Blood Pressure 120/63 117/73 Pulse Oximetry 97 98 Intake & Output 02/09/18 02/10/18 02/10/18 18:59 06:59 18:59 Intake Total 720 / 720 480 / 480 Output Total 1700 / 1700 Balance -980 / -980 480 / 480 Intake: Oral 720 / 720 480 / 480 Output: Urine 1700 / 1700 Other: # Bowel Movements 2 2 <Antelmo Olvera - 02/10/18 14:55> Vital Signs 02/08/18 16:00 02/08/18 20:00 02/08/18 22:06 Temperature 100.5 F H 100.1 F H 100.1 F H Pulse Rate 84 91 H Respiratory Rate 18 20 Blood Pressure 137/62 113/62 Pulse Oximetry 95 90 L 02/08/18 23:35 02/08/18 23:54 02/09/18 04:00 Temperature 100.0 F H 99.5 F Pulse Rate 87 81 88 Respiratory Rate 20 20 Blood Pressure 109/62 117/62 Pulse Oximetry 93 L 95 02/09/18 08:00 Temperature 99.5 F Pulse Rate 81 Respiratory Rate 18 Blood Pressure 114/70 Pulse Oximetry 95 Intake & Output 02/08/18 02/09/18 02/09/18 18:59 06:59 18:59 Intake Total 720 / 720 Output Total 1000 / 1000 925 / 925 Balance -280 / -280 -925 / -925 Weight 97.8 kg Intake: Oral 720 / 720 Output: Urine 1000 / 1000 925 / 925 Other: # Voids 3 <Sin Victoria - 02/09/18 12:37> Narrative: General: Well-developed, alert, and in no acute distress. Neurologic: Oriented x3 HEENT: Atraumatic, moist mucous membranes Neck: Supple, trachea midline Cardiac: Regular rate and rhythm without murmurs Pulmonary: Non-labored breathing. Lungs clear to auscultation bilaterally with good air movement Abdomen: Normal bowel sounds, soft and non-tender without rebound or guarding Extremities: No edema, 2+ pedal pulses, capillary refill less than 2 seconds Tenderness to deep palpation over the left femoral trochanter Skin: Stage I sacral ulcer without signs of infection, stage I ulcer to the right heel <Sin Victoria - 02/09/18 12:37> - Urinary Catheter Management 400 Cath placed during this visit: no <Antelmo Olvera - 02/10/18 14:55> no <Sin Victoria - 02/09/18 12:37> Condom Cath placed during this visit: no <Sujata Olverageny - 02/10/18 14:55> no <Sin Victoria Gay - 02/09/18 12:37> Straight Cath placed during this visit: no <Sujata Olverageny - 02/10/18 14:55> yes, but has since been removed by the nurse <Sin Victoria Gay - 02/09/18 12:37> Reason for continuing: Not indwelling catheter <Sin Victoria Gay - 12:37> Insertion date: 01/26/18 <Sin Victoria Gay - 02/09/18 12:37> Insertion time: 17:30 <NedadaisySin thomson Gay - 02/09/18 12:37> Removal date: 01/26/18 <Sin Victoria Gay - 02/09/18 12:37> Removal time: 17:35 <Sin Victoria Gay - 02/09/18 12:37> Assessment and Plan - Assessment (1) Abdominal pain Code(s): R10.9 - Unspecified abdominal pain Status: Resolved (2) Esophageal varices in cirrhosis Code(s): K74.60 - Unspecified cirrhosis of liver; I85.10 - Secondary esophageal varices without bleeding Status: Chronic (3) Hypertension Code(s): I10 - Essential (primary) hypertension Status: Chronic (4) Alcohol abuse Code(s): F10.10 - Alcohol abuse, uncomplicated Status: Chronic (5) Depression with anxiety Code(s): F41.8 - Other specified anxiety disorders Status: Chronic (6) Cough Code(s): R05 - Cough Status: Resolved (7) Diabetes Code(s): E11.9 - Type 2 diabetes mellitus without complications Status: Chronic (8) Deep vein thrombosis (DVT) of brachial vein Code(s): I82.629 - Acute embolism and thrombosis of deep veins of unspecified upper extremity Status: Acute (9) Chest pain Code(s): R07.9 - Chest pain, unspecified Status: Resolved (10) Alcohol withdrawal Code(s): F10.239 - Alcohol dependence with withdrawal, unspecified Status: Resolved <Antelmo Olvera - 02/10/18 14:55> (1) Abdominal pain Code(s): R10.9 - Unspecified abdominal pain Status: Resolved (2) Esophageal varices in cirrhosis Code(s): K74.60 - Unspecified cirrhosis of liver; I85.10 - Secondary esophageal varices without bleeding Status: Chronic (3) Hypertension Code(s): I10 - Essential (primary) hypertension Status: Chronic (4) Alcohol abuse Code(s): F10.10 - Alcohol abuse, uncomplicated Status: Chronic (5) Depression with anxiety Code(s): F41.8 - Other specified anxiety disorders Status: Chronic (6) Cough Code(s): R05 - Cough Status: Resolved (7) Diabetes Code(s): E11.9 - Type 2 diabetes mellitus without complications Status: Chronic (8) Deep vein thrombosis (DVT) of brachial vein Code(s): I82.629 - Acute embolism and thrombosis of deep veins of unspecified upper extremity Status: Acute (9) Chest pain Code(s): R07.9 - Chest pain, unspecified Status: Resolved (10) Alcohol withdrawal Code(s): F10.239 - Alcohol dependence with withdrawal, unspecified Status: Resolved <Sin Victoria - 02/09/18 12:29> - Assessment and Plan Patient is a 52-year-old male with medical history significant for alcoholism, cirrhosis, and esophageal varices who was admitted with esophageal varices, status post banding x4. He has had altered mental status for most of his hospitalization. He was intubated, and then extubated on 01/27. Repeat EGD on 02/05 showed no active bleed. He continues to have some mild confusion. Esophageal varices in the context of cirrhosis: -Status post banding x4. -H&H was 9.3 yesterday. Hemoccult performed 2 days ago was negative. He is now refusing blood draws. -EGD repeated without active bleeds 02/05, gastroenterology has signed off -His altered mental status is likely secondary to his liver disease. We are unsure of his baseline, however he is significantly less confused now. He is now oriented x3. -Ammonia level still elevated, has been refusing lactulose, we had another extensive discussion today about this. He is complaining that he is unable to get to his bedside commode because of this medication. Expresses desire to go home. We talked about how he needs to be more compliant with this medication in order to decrease his confusion and ammonia levels before he goes home. -Continue lactulose 4 times a day and Xifaxan 550 twice daily -Continue IV Protonix BID -Propranolol 40mg BID Pressure ulcers: Stage I sacral ulcer and stage I pressure ulcer of the right heel Wound care nurse was consulted, please see their note for current wound care recommendations Hypertension: -Amlodipine discontinued due to borderline hypotension, BP has been stable since -Bumex 0.5 mg daily -Propranolol as above Hyperlipidemia: -Continue home medication pravastatin 40 mg p.o. nightly Hypokalemia: -He has had some mild hypokalemia throughout his hospitalization. -Monitor and correct as needed Type 2 diabetes mellitus: -Continue low dose SS insulin -He is continued to have blood sugars in the upper 100s and low 200s -Increase twice daily Levemir from 5 units to 10 units DVT of brachial vein (right): -Last ultrasound on 01/28 was negative for DVT, DVT last seen the ultrasound on 01/19 -Decision and amount of anticoagulation is complicated due to his variceal bleed. -We are following critical care as recommendation of the Lovenox 40mg daily Alcohol withdrawal: resolved He has a significant history of alcohol abuse and had been receiving treatment at [facility]. He had not been sober at the time of admission. He was transferred to the ICU secondary to withdraw. This has now resolved and he is not currently on any benzodiazepines. Fluids: Adequate p.o. intake Electrolytes: monitor and replete as needed. Due to patient's concern that were taking too much blood we will delay his next lab work until Saturday. Nutrition: Regular diet GI prophylaxis: IV Protonix VTE prophylaxis: Lovenox 40mg q24 Disposition: He will need physical therapy at rehab, however he is not currently medically stable for discharge. He reports his primary care is through [facility]. We have asked physical therapy to work with him while he is in the hospital because we may have difficulty with placement due to his insurance. Patient was seen and examined with Drs. Hernandez and May <Sin Victoria - 02/09/18 12:37> - Attending Attestation See the residents documentation for details. I saw and evaluated the patient regarding the [place] portions of this evaluation and agree with the residents findings and plans as written. Parts of this note were created using [employer] voice recognition software program. While efforts were made to correct any mistakes made by this software, some mistakes, errors, and omissions may remain in the final note that were not caught when the note was originally created. Plan of care was discussed and agreed upon with the patient as specifically documented in the above note. An opportunity to ask questions with explanation was provided. Patient voiced understanding on all information reviewed and discussed. <Antelmo Olvera - 02/10/18 14:55>
[2018-02-09] MEDS: Enoxaparin Inj 40 MG/0.4 ML Syringe SQ SCH (16:44)
[2018-02-10] MEDS: Oral Hygiene Kit OROPHARYNG SCH ×5 (00:10→23:27)
[2018-02-10] MEDS: Artificial Tears Opth Drops 15 ML Bottle EACH EYE SCH ×4 (00:10→21:41)
[2018-02-10] MEDS: Insulin NovoLOG Aspart Correctional Sugar Inj SQ SCH ×5 (00:11→23:39)
[2018-02-10] MEDS: Pantoprazole Inj 40 MG Vial IV.PUSH SCH ×2 (08:27→21:37)
[2018-02-10] MEDS: Propranolol 40 MG Tablet PO SCH ×2 (08:28→21:38)
[2018-02-10] MEDS: Senna/Docusate Sodium 8.6/50 MG Tablet PO SCH ×2 (08:28→21:41)
[2018-02-10] MEDS: rifAXIMin 550 MG Tablet PO SCH ×2 (08:28→21:38)
[2018-02-10] MEDS: Multivit/Folic Acid/Minerals Chewable Tablets CHEW SCH (08:28)
[2018-02-10] MEDS: Sodium Chloride 0.9% 2 ML Flush BID IV.FLUSH SCH ×2 (08:29→21:40)
[2018-02-10] MEDS: Lidocaine 5% Patch T-DERMAL SCH (08:29)
[2018-02-10] MEDS: Insulin Detemir Inj 1,000 UNIT/10 ML Vial SQ SCH ×2 (09:30→21:36)
[2018-02-10 09:40] LABS: Baso # (Auto) 0.1 th/mm3 (0.0-0.2); Baso % (Auto) 0.8 % (0.0-2.0); Eos # (Auto) 0.3 th/mm3 (0.0-0.4); Eos % (Auto) 2.8 % (0.0-4.0); Hematocrit 30.3 % (39.0-51.0); Hemoglobin 9.7 gm/dL (13.0-17.0); Lymph # (Auto) 1.2 th/mm3 (1.0-4.8); Lymph % (Auto) 13.3 % (9.0-44.0); Mean Corpuscular HGB Conc 32.1 % (32.0-36.0); Mean Corpuscular Hemoglobin 26.3 pg (27.0-34.0); Mean Platelet Volume 8.4 fL (7.0-11.0); Mono # (Auto) 1.5 th/mm3 (0.0-0.9); Mono % (Auto) 16.5 % (0.0-8.0); Neut # (Auto) 6.2 th/mm3 (1.8-7.7); Neut % (Auto) 66.6 % (16.0-70.0); Platelet Count 169 th/mm3 (150-450); Red Cell Distribution Width 23.5 % (11.6-17.2); White Blood Count 9.3 th/mm3 (4.0-11.0)
--- NOTE | 2018-02-10 11:56 | P.PNFP ---
Subjective Interval history: No acute events overnight. He is continually expressing his desire to go home. He did take his lactulose since speaking with him yesterday. He denies any dark or red in his stools, which he does describe as dilute loose and yellow. He states that he now does need a walker to get around he did work with PT yesterday. He states that he has had to use a walker before, when he was incarcerated. No new complaints this morning. Oriented x3, mild confusion, likely baseline mental status. He did have some mild nausea this morning. No fever, chills, lightheadedness, dizziness, vomiting, chest pain, palpitations, abdominal pain. <Sin Victoria - 02/10/18 11:56> Results - Labs Result diagrams: 02/10/18 09:14 02/08/18 09:23 <Antelmo Olvera - 02/10/18 15:22> Abnormal lab results 02/09/18 02/10/18 02/10/18 Range/Units 18:24 00:05 06:21 RBC (4.50-5.90) mil/mm3 Hgb (13.0-17.0) gm/dL Hct (39.0-51.0) % MCH (27.0-34.0) pg RDW (11.6-17.2) % [place] % (Auto) (0.0-8.0) % [place] # (Auto) (0.0-0.9) th/mm3 POC Glucose 172 H 156 H 156 H (68-110) mg/dl Ammonia (11-32) mcmol/L 02/10/18 02/10/18 02/10/18 Range/Units 09:14 09:14 12:25 RBC 3.70 L (4.50-5.90) mil/mm3 Hgb 9.7 L (13.0-17.0) gm/dL Hct 30.3 L (39.0-51.0) % MCH 26.3 L (27.0-34.0) pg RDW 23.5 H (11.6-17.2) % [place] % (Auto) 16.5 H (0.0-8.0) % [place] # (Auto) 1.5 H (0.0-0.9) th/mm3 POC Glucose 149 H (68-110) mg/dl Ammonia 44 H (11-32) mcmol/L Short CBC 02/10/18 Range/Units 09:14 WBC 9.3 (4.0-11.0) th/mm3 Hgb 9.7 L (13.0-17.0) gm/dL Hct 30.3 L (39.0-51.0) % Plt Count 169 D (150-450) th/mm3 <Antelmo Olvera - 02/10/18 15:22> Abnormal lab results 02/09/18 02/09/18 02/10/18 Range/Units 12:15 18:24 00:05 RBC (4.50-5.90) mil/mm3 Hgb (13.0-17.0) gm/dL Hct (39.0-51.0) % MCH (27.0-34.0) pg RDW (11.6-17.2) % [place] % (Auto) (0.0-8.0) % [place] # (Auto) (0.0-0.9) th/mm3 POC Glucose 230 H 172 H 156 H (68-110) mg/dl Ammonia (11-32) mcmol/L 02/10/18 02/10/18 02/10/18 Range/Units 06:21 09:14 09:14 RBC 3.70 L (4.50-5.90) mil/mm3 Hgb 9.7 L (13.0-17.0) gm/dL Hct 30.3 L (39.0-51.0) % MCH 26.3 L (27.0-34.0) pg RDW 23.5 H (11.6-17.2) % [place] % (Auto) 16.5 H (0.0-8.0) % [place] # (Auto) 1.5 H (0.0-0.9) th/mm3 POC Glucose 156 H (68-110) mg/dl Ammonia 44 H (11-32) mcmol/L Short CBC 02/10/18 Range/Units 09:14 WBC 9.3 (4.0-11.0) th/mm3 Hgb 9.7 L (13.0-17.0) gm/dL Hct 30.3 L (39.0-51.0) % Plt Count 169 D (150-450) th/mm3 <EsmeJorgeSin J - 02/10/18 11:56> Physical Exam Vital signs: Vital Signs 02/09/18 16:00 02/09/18 19:54 02/09/18 20:00 Temperature 97.8 F 100.1 F H Pulse Rate 82 86 80 Respiratory Rate 18 20 Blood Pressure 96/59 L 125/69 Pulse Oximetry 96 97 02/09/18 23:55 02/10/18 00:00 02/10/18 04:00 Temperature 98.4 F 98.7 F Pulse Rate 85 86 83 Respiratory Rate 16 18 Blood Pressure 109/58 L 109/64 Pulse Oximetry 93 L 96 02/10/18 04:02 02/10/18 08:00 02/10/18 12:00 Temperature 97.9 F 99.3 F Pulse Rate 69 67 70 Respiratory Rate 17 17 Blood Pressure 120/63 117/73 Pulse Oximetry 97 98 Intake & Output 02/09/18 02/10/18 02/10/18 18:59 06:59 18:59 Intake Total 720 / 720 480 / 480 Output Total 1700 / 1700 Balance -980 / -980 480 / 480 Intake: Oral 720 / 720 480 / 480 Output: Urine 1700 / 1700 Other: # Bowel Movements 2 2 <Antelmo Olvera - 02/10/18 15:22> Vital Signs 02/09/18 12:00 02/09/18 16:00 02/09/18 19:54 Temperature 99.3 F 97.8 F Pulse Rate 87 82 86 Respiratory Rate 18 18 Blood Pressure 136/66 96/59 L Pulse Oximetry 97 96 02/09/18 20:00 02/09/18 23:55 02/10/18 00:00 Temperature 100.1 F H 98.4 F Pulse Rate 80 85 86 Respiratory Rate 20 16 Blood Pressure 125/69 109/58 L Pulse Oximetry 97 93 L 02/10/18 04:00 02/10/18 04:02 02/10/18 08:00 Temperature 98.7 F 97.9 F Pulse Rate 83 69 67 Respiratory Rate 18 17 Blood Pressure 109/64 120/63 Pulse Oximetry 96 97 Intake & Output 02/09/18 02/10/18 02/10/18 18:59 06:59 18:59 Intake Total 720 / 720 480 / 480 Output Total 1700 / 1700 Balance -980 / -980 480 / 480 Intake: Oral 720 / 720 480 / 480 Output: Urine 1700 / 1700 Other: # Bowel Movements 2 2 <Sin Victoria 02/10/18 11:56> Narrative: General: Well-developed, alert, and in no acute distress. Neurologic: Oriented x3, mild confusion, likely baseline HEENT: Atraumatic, moist mucous membranes Neck: Supple, trachea midline Cardiac: Regular rate and rhythm without murmurs Pulmonary: Non-labored breathing. Lungs clear to auscultation bilaterally with good air movement Abdomen: Normal bowel sounds, soft and non-tender without rebound or guarding Extremities: No edema, 2+ pedal pulses, capillary refill less than 2 seconds Skin: Stage I sacral ulcer without signs of infection, stage I ulcer to the right heel <Sin Victoria 02/10/18 11:56> - Urinary Catheter Management 400 Cath placed during this visit: no <Antelmo Olvera - 02/10/18 15:22> no <Sin Victoria 02/10/18 12:03> Condom Cath placed during this visit: no <Antelmo Olvera 02/10/18 15:22> no <Sin Victoria 02/10/18 12:03> Straight Cath placed during this visit: no <Antelmo Olvera 02/10/18 15:22> yes, but has since been removed by the nurse <Sin Victoria 02/10/18 12:03> Reason for continuing: Not indwelling catheter <Sin Victoria 11:56> Insertion date: 01/26/18 <Sin Victoria 02/10/18 11:56> Insertion time: 17:30 <Sin Victoria 02/10/18 11:56> Removal date: 01/26/18 <Sin Victoria 02/10/18 11:56> Removal time: 17:35 <Sin Victoria 02/10/18 11:56> Assessment and Plan - Assessment (1) Abdominal pain Code(s): R10.9 - Unspecified abdominal pain Status: Resolved (2) Esophageal varices in cirrhosis Code(s): K74.60 - Unspecified cirrhosis of liver; I85.10 - Secondary esophageal varices without bleeding Status: Chronic (3) Hypertension Code(s): I10 - Essential (primary) hypertension Status: Chronic (4) Alcohol abuse Code(s): F10.10 - Alcohol abuse, uncomplicated Status: Chronic (5) Depression with anxiety Code(s): F41.8 - Other specified anxiety disorders Status: Chronic (6) Cough Code(s): R05 - Cough Status: Resolved (7) Diabetes Code(s): E11.9 - Type 2 diabetes mellitus without complications Status: Chronic (8) Deep vein thrombosis (DVT) of brachial vein Code(s): I82.629 - Acute embolism and thrombosis of deep veins of unspecified upper extremity Status: Acute (9) Chest pain Code(s): R07.9 - Chest pain, unspecified Status: Resolved (10) Alcohol withdrawal Code(s): F10.239 - Alcohol dependence with withdrawal, unspecified Status: Resolved <Antelmo Olvera - 02/10/18 15:22> (1) Abdominal pain Code(s): R10.9 - Unspecified abdominal pain Status: Resolved (2) Esophageal varices in cirrhosis Code(s): K74.60 - Unspecified cirrhosis of liver; I85.10 - Secondary esophageal varices without bleeding Status: Chronic (3) Hypertension Code(s): I10 - Essential (primary) hypertension Status: Chronic (4) Alcohol abuse Code(s): F10.10 - Alcohol abuse, uncomplicated Status: Chronic (5) Depression with anxiety Code(s): F41.8 - Other specified anxiety disorders Status: Chronic (6) Cough Code(s): R05 - Cough Status: Resolved (7) Diabetes Code(s): E11.9 - Type 2 diabetes mellitus without complications Status: Chronic (8) Deep vein thrombosis (DVT) of brachial vein Code(s): I82.629 - Acute embolism and thrombosis of deep veins of unspecified upper extremity Status: Acute (9) Chest pain Code(s): R07.9 - Chest pain, unspecified Status: Resolved (10) Alcohol withdrawal Code(s): F10.239 - Alcohol dependence with withdrawal, unspecified Status: Resolved <Sin Victoria - 02/10/18 12:03> - Assessment and Plan Patient is a 52-year-old male with medical history significant for alcoholism, cirrhosis, and esophageal varices who was admitted with esophageal varices, status post banding x4. He has had altered mental status for most of his hospitalization. He was intubated, and then extubated on 01/27. Repeat EGD on 02/05 showed no active bleed. He continues to have some mild confusion. Esophageal varices in the context of cirrhosis: -Status post banding x4. -H&H was 9.7 yesterday. Hemoccult negative. Repeat H&H tomorrow -EGD repeated without active bleeds 02/05, gastroenterology has signed off -His altered mental status is likely secondary to his liver disease. We are unsure of his baseline, however he is significantly less confused now. He is now oriented x3. -Ammonia level still elevated, has been refusing lactulose, we had another extensive discussion today about this. He is compliant with his lactulose yesterday and this morning. Repeat ammonia level tomorrow. -Continue lactulose 4 times a day and Xifaxan 550 twice daily -Continue IV Protonix BID -Propranolol 40mg BID Pressure ulcers: Stage I sacral ulcer and stage I pressure ulcer of the right heel Wound care nurse was consulted, please see their note for current wound care recommendations Hypertension: -Amlodipine discontinued due to borderline hypotension, BP has been stable since -Bumex 0.5 mg daily -Propranolol as above Hyperlipidemia: -Continue home medication pravastatin 40 mg p.o. nightly Hypokalemia: -He has had some mild hypokalemia throughout his hospitalization. -Monitor and correct as needed Type 2 diabetes mellitus: -Continue low dose SS insulin -He is continued to have blood sugars in the 100s and low 200s -Continue Levemir 10 units daily DVT of brachial vein (right): -Last ultrasound on 01/28 was negative for DVT, DVT last seen the ultrasound on 01/19 -Decision and amount of anticoagulation is complicated due to his variceal bleed. -We are following critical care as recommendation of the Lovenox 40mg daily Alcohol withdrawal: resolved He has a significant history of alcohol abuse and had been receiving treatment at [facility]. He had not been sober at the time of admission. He was transferred to the ICU secondary to withdraw. This has now resolved and he is not currently on any benzodiazepines. Fluids: Adequate p.o. intake Electrolytes: monitor and replete as needed. Due to patient's concern that were taking too much blood and refusal of blood work yesterday we will delay his next lab work until tomorrow. Nutrition: Regular diet GI prophylaxis: IV Protonix VTE prophylaxis: Lovenox 40mg q24 Disposition: He will need physical therapy at rehab, however he is not currently medically stable for discharge. He reports his primary care is through [facility]. We have asked physical therapy to work with him while he is in the hospital because we may have difficulty with placement due to his insurance. Patient was seen and examined with Drs. Hernandez and May <Sin Victoria - 02/10/18 11:56> - Attending Attestation See the residents documentation for details. I saw and evaluated the patient regarding the manley portions of this evaluation and agree with the residents findings and plans as written. Parts of this note were created using [employer] voice recognition software program. While efforts were made to correct any mistakes made by this software, some mistakes, errors, and omissions may remain in the final note that were not caught when the note was originally created. Plan of care was discussed and agreed upon with the patient as specifically documented in the above note. An opportunity to ask questions with explanation was provided. Patient voiced understanding on all information reviewed and discussed. <Antelmo Olvera - 02/10/18 15:22>
[2018-02-10] MEDS: Chlorhexidine 0.12% Oral Kit 15 ML UDC OROPHARYNG SCH ×2 (12:08→19:39)
[2018-02-10] MEDS: Ferrous Sulfate 325 MG Tablet PO SCH ×2 (12:14→16:23)
[2018-02-10] MEDS: Enoxaparin Inj 40 MG/0.4 ML Syringe SQ SCH (15:43)
[2018-02-10] MEDS ORDERED: Ketorolac 10 MG Tablet PO ONE (18:22)
--- NOTE | 2018-02-10 19:17 | P.PNPL ---
Subjective Interval history: 52 YO male with GIB, cirrhosis Developed resp distress, agitation Extubated 01/27 Alert, awake, follows commands Denies sob Ambulate Has diarrhoea Physical Exam Vital signs: Vital Signs 02/09/18 19:54 02/09/18 20:00 02/09/18 23:55 Temperature 100.1 F H Pulse Rate 86 80 85 Respiratory Rate 20 Blood Pressure 125/69 Pulse Oximetry 97 02/10/18 00:00 02/10/18 04:00 02/10/18 04:02 Temperature 98.4 F 98.7 F Pulse Rate 86 83 69 Respiratory Rate 16 18 Blood Pressure 109/58 L 109/64 Pulse Oximetry 93 L 96 02/10/18 08:00 02/10/18 12:00 02/10/18 16:00 Temperature 97.9 F 99.3 F 99.6 F Pulse Rate 68 70 85 Respiratory Rate 17 17 16 Blood Pressure 120/63 117/73 130/70 Pulse Oximetry 97 98 94 L Intake & Output 02/10/18 02/10/18 02/11/18 06:59 18:59 06:59 Intake Total 480 / 480 720 / 720 Output Total 400 / 400 Balance 480 / 480 320 / 320 Intake: Oral 480 / 480 720 / 720 Output: Urine 400 / 400 Other: Date of Last Bowel Movement 02/10/18 # Bowel Movements 2 4 GENERAL: WBWn NAD SKIN: Warm and dry. HEAD: Normocephalic. EYES: No scleral icterus. No injection or drainage. NECK: Supple, trachea midline. No JVD or lymphadenopathy. CARDIOVASCULAR: Regular rate and rhythm without murmurs, gallops, or rubs. RESPIRATORY: Breath sounds equal bilaterally. No accessory muscle use. GASTROINTESTINAL: Abdomen soft, non-tender, nondistended. MUSCULOSKELETAL: No cyanosis, or edema. BACK: Nontender without obvious deformity. No CVA tenderness. - Urinary Catheter Management Straight Cath placed during this visit: yes, but has since been removed by the nurse Reason for continuing: Not indwelling catheter Insertion date: 01/26/18 Insertion time: 17:30 Removal date: 01/26/18 Removal time: 17:35 Condom Cath placed during this visit: no 400 Cath placed during this visit: no Assessment and Plan - Plan IMPRESSION: 1. Mild shortness of breath and cough, possibly underlying asthma. 2. Hypertension. 3. Diabetes mellitus. 4. Cirrhosis of the liver. 5. VDRF, s/p extubation 01/27 6. Encephalopathy. PLAN: Protonix 40 mg daily Monitor Ammonia level. Stable on RA Aerosol nebs SQ Lovenox Bumex 0.5 mg daily
[2018-02-11] MEDS: Oral Hygiene Kit OROPHARYNG SCH ×4 (03:12→23:23)
[2018-02-11] MEDS: Artificial Tears Opth Drops 15 ML Bottle EACH EYE SCH ×3 (06:22→21:46)
[2018-02-11] MEDS: Insulin NovoLOG Aspart Correctional Sugar Inj SQ SCH ×4 (06:22→23:28)
[2018-02-11 07:23] LABS: Baso % (Auto) 0.1 % (0.0-2.0); Eos # (Auto) 0.1 th/mm3 (0.0-0.4); Hemoglobin 8.1 gm/dL (13.0-17.0); Lymph # (Auto) 0.7 th/mm3 (1.0-4.8); Lymph % (Auto) 7.8 % (9.0-44.0); Mean Corpuscular HGB Conc 32.5 % (32.0-36.0); Mean Corpuscular Hemoglobin 26.8 pg (27.0-34.0); Mean Corpuscular Volume 82.4 fL (80.0-100.0); Mean Platelet Volume 7.7 fL (7.0-11.0); Mono # (Auto) 1.3 th/mm3 (0.0-0.9); Mono % (Auto) 14.8 % (0.0-8.0); Neut # (Auto) 6.7 th/mm3 (1.8-7.7); Neut % (Auto) 76.3 % (16.0-70.0); Platelet Count 156 th/mm3 (150-450); Red Blood Count 3.04 mil/mm3 (4.50-5.90); Red Cell Distribution Width 23.2 % (11.6-17.2); White Blood Count 8.7 th/mm3 (4.0-11.0)
[2018-02-11 08:06] LABS: Anion Gap 6 meq/L (5-15); Blood Urea Nitrogen 8 mg/dL (7-18); Calcium 8.3 mg/dL (8.5-10.1); Carbon Dioxide 29.3 meq/L (21.0-32.0); Chloride 99 meq/L (98-107); Glomerular Filtration Rate Greater Than 89 mL/min (>89); Glucose,Random 157 mg/dL (74-106); Potassium 3.5 meq/L (3.5-5.1); Sodium 134 meq/L (136-145)
--- NOTE | 2018-02-11 08:24 | P.PNPL ---
Subjective Interval history: 52 YO male with GIB, cirrhosis Developed resp distress, agitation Extubated 01/27 Alert, awake, follows commands Denies sob Confused , awake Has diarrhoea Physical Exam Vital signs: Vital Signs 02/10/18 12:00 02/10/18 16:00 02/10/18 20:00 Temperature 99.3 F 99.6 F 99.1 F Pulse Rate 70 85 77 Respiratory Rate 17 16 19 Blood Pressure 117/73 130/70 151/72 H Pulse Oximetry 98 94 L 94 L 02/10/18 23:40 02/11/18 00:00 02/11/18 04:00 Temperature 98.9 F 98.4 F Pulse Rate 80 90 90 Respiratory Rate 18 17 Blood Pressure 145/77 H 153/81 H Pulse Oximetry 95 94 L Intake & Output 02/10/18 02/11/18 02/11/18 18:59 06:59 18:59 Intake Total 720 / 720 400 / 400 Output Total 400 / 400 800 / 800 Balance 320 / 320 -400 / -400 Weight 98.78 kg Intake: Oral 720 / 720 400 / 400 Output: Urine 400 / 400 800 / 800 Other: Date of Last Bowel Movement 02/10/18 02/11/18 # Bowel Movements 4 1 GENERAL: WBWN NAD SKIN: Warm and dry. HEAD: Normocephalic. EYES: No scleral icterus. No injection or drainage. NECK: Supple, trachea midline. No JVD or lymphadenopathy. CARDIOVASCULAR: Regular rate and rhythm without murmurs, gallops, or rubs. RESPIRATORY: Breath sounds equal bilaterally. No accessory muscle use. GASTROINTESTINAL: Abdomen soft, non-tender, nondistended. MUSCULOSKELETAL: No cyanosis, or edema. BACK: Nontender without obvious deformity. No CVA tenderness. - Urinary Catheter Management Straight Cath placed during this visit: yes, but has since been removed by the nurse Reason for continuing: Not indwelling catheter Insertion date: 01/26/18 Insertion time: 17:30 Removal date: 01/26/18 Removal time: 17:35 Condom Cath placed during this visit: no 400 Cath placed during this visit: no Assessment and Plan - Plan IMPRESSION: 1. Mild shortness of breath and cough, possibly underlying asthma. 2. Hypertension. 3. Diabetes mellitus. 4. Cirrhosis of the liver. 5. VDRF, s/p extubation 01/27 6. Encephalopathy. PLAN: Protonix 40 mg daily Monitor Ammonia level. Aerosol nebs SQ Lovenox Bumex 0.5 mg daily Stable on RA
[2018-02-11] MEDS: Pantoprazole Inj 40 MG Vial IV.PUSH SCH ×2 (08:53→21:43)
[2018-02-11] MEDS: Propranolol 40 MG Tablet PO SCH ×2 (08:53→21:42)
[2018-02-11] MEDS: Multivit/Folic Acid/Minerals Chewable Tablets CHEW SCH (08:53)
[2018-02-11] MEDS: rifAXIMin 550 MG Tablet PO SCH ×2 (08:53→21:42)
[2018-02-11] MEDS: Chlorhexidine 0.12% Oral Kit 15 ML UDC OROPHARYNG SCH ×2 (09:02→20:14)
[2018-02-11] MEDS: Lidocaine 5% Patch T-DERMAL SCH (09:02)
[2018-02-11] MEDS: Insulin Detemir Inj 1,000 UNIT/10 ML Vial SQ SCH ×2 (09:02→21:41)
[2018-02-11] MEDS: Senna/Docusate Sodium 8.6/50 MG Tablet PO SCH ×2 (09:02→21:43)
[2018-02-11] MEDS: Sodium Chloride 0.9% 2 ML Flush BID IV.FLUSH SCH ×2 (09:02→21:43)
[2018-02-11] MEDS: Ferrous Sulfate 325 MG Tablet PO SCH ×2 (11:24→17:39)
--- NOTE | 2018-02-11 11:36 | P.PNFP ---
Subjective Interval history: There were no acute events overnight. He is continually expressing his desire to go home. He has been mostly compliant with his lactulose. He denies any black or blood in his stools. He did slip and fall this morning while attempting to get to the bedside commode. He is not supposed to be out of bed without assistance, however he often has a sudden urge to defecate secondary to his lactulose. He continues to be oriented x3 and likely at his baseline mental status. No fever, chills, lightheadedness, dizziness, vomiting, chest pain, palpitations, abdominal pain. <Sin Victoria - 02/11/18 11:35> Results - Labs Result diagrams: 02/11/18 06:57 02/11/18 06:57 <Antelmo Olvera - 02/12/18 12:07> Abnormal lab results 02/11/18 02/11/18 02/11/18 Range/Units 12:51 17:13 21:40 POC Glucose 182 H 152 H 168 H (68-110) mg/dl 02/11/18 02/12/18 02/12/18 Range/Units 23:22 05:10 11:54 POC Glucose 166 H 170 H 254 H (68-110) mg/dl <Antelmo Olvera - 02/12/18 12:07> Abnormal lab results 02/10/18 02/10/18 02/10/18 Range/Units 12:25 17:53 20:08 RBC (4.50-5.90) mil/mm3 Hgb (13.0-17.0) gm/dL Hct (39.0-51.0) % MCH (27.0-34.0) pg RDW (11.6-17.2) % Neut % (Auto) (16.0-70.0) % Lymph % (Auto) (9.0-44.0) % [place] % (Auto) (0.0-8.0) % Lymph # (Auto) (1.0-4.8) th/mm3 [place] # (Auto) (0.0-0.9) th/mm3 Sodium (136-145) meq/L POC Glucose 149 H 199 H 246 H (68-110) mg/dl Random Glucose (74-106) mg/dL Calcium (8.5-10.1) mg/dL Ammonia (11-32) mcmol/L 02/10/18 02/11/18 02/11/18 Range/Units 23:29 05:28 06:57 RBC 3.04 L (4.50-5.90) mil/mm3 Hgb 8.1 L (13.0-17.0) gm/dL Hct 25.0 L (39.0-51.0) % MCH 26.8 L (27.0-34.0) pg RDW 23.2 H (11.6-17.2) % Neut % (Auto) 76.3 H (16.0-70.0) % Lymph % (Auto) 7.8 L (9.0-44.0) % [place] % (Auto) 14.8 H (0.0-8.0) % Lymph # (Auto) 0.7 L (1.0-4.8) th/mm3 [place] # (Auto) 1.3 H (0.0-0.9) th/mm3 Sodium (136-145) meq/L POC Glucose 206 H 173 H (68-110) mg/dl Random Glucose (74-106) mg/dL Calcium (8.5-10.1) mg/dL Ammonia (11-32) mcmol/L 02/11/18 02/11/18 Range/Units 06:57 06:57 RBC (4.50-5.90) mil/mm3 Hgb (13.0-17.0) gm/dL Hct (39.0-51.0) % MCH (27.0-34.0) pg RDW (11.6-17.2) % Neut % (Auto) (16.0-70.0) % Lymph % (Auto) (9.0-44.0) % [place] % (Auto) (0.0-8.0) % Lymph # (Auto) (1.0-4.8) th/mm3 [place] # (Auto) (0.0-0.9) th/mm3 Sodium 134 L (136-145) meq/L POC Glucose (68-110) mg/dl Random Glucose 157 H (74-106) mg/dL Calcium 8.3 L (8.5-10.1) mg/dL Ammonia 45 H (11-32) mcmol/L Short CBC 02/11/18 Range/Units 06:57 WBC 8.7 (4.0-11.0) th/mm3 Hgb 8.1 L (13.0-17.0) gm/dL Hct 25.0 L (39.0-51.0) % Plt Count 156 (150-450) th/mm3 BMP 02/11/18 06:57 Sodium 134 L Potassium 3.5 Chloride 99 Carbon Dioxide 29.3 BUN 8 Creatinine 0.72 Calcium 8.3 L <Sin Victoria - 02/11/18 11:35> Physical Exam Vital signs: Vital Signs 02/11/18 12:21 02/11/18 16:00 02/11/18 16:21 Temperature 98.6 F 98.8 F 98.8 F Pulse Rate 72 88 78 Respiratory Rate 18 18 16 Blood Pressure 130/70 121/78 121/87 Pulse Oximetry 93 L 02/11/18 17:17 02/11/18 20:00 02/12/18 00:00 Temperature 98.3 F 100.8 F H Pulse Rate 83 85 Respiratory Rate 16 16 Blood Pressure 123/75 142/67 H Pulse Oximetry 93 L 98 96 02/12/18 04:00 02/12/18 08:00 Temperature 99.6 F 98.6 F Pulse Rate 81 75 Respiratory Rate 17 18 Blood Pressure 134/74 155/79 H Pulse Oximetry 95 97 Intake & Output 02/11/18 02/12/18 02/12/18 18:59 06:59 18:59 Intake Total 1200 / 1200 Output Total 300 / 300 3225 / 3225 Balance -300 / -300 -2024 / -2024 Weight 95.8 kg Intake: Oral 1200 / 1200 Output: Urine 300 / 300 3225 / 3225 Other: Date of Last Bowel Movement 02/11/18 # Bowel Movements 0 <Antelmo Olvera - 02/12/18 12:07> Vital Signs 02/10/18 12:00 02/10/18 16:00 02/10/18 20:00 Temperature 99.3 F 99.6 F 99.1 F Pulse Rate 70 85 77 Respiratory Rate 17 16 19 Blood Pressure 117/73 130/70 151/72 H Pulse Oximetry 98 94 L 94 L 02/10/18 23:40 02/11/18 00:00 02/11/18 04:00 Temperature 98.9 F 98.4 F Pulse Rate 80 90 90 Respiratory Rate 18 17 Blood Pressure 145/77 H 153/81 H Pulse Oximetry 95 94 L 02/11/18 08:00 02/11/18 08:20 02/11/18 09:21 Temperature 98.6 F 98.6 F 98.4 F Pulse Rate 76 76 79 Respiratory Rate 17 17 18 Blood Pressure 154/90 H 154/96 H 148/83 H Pulse Oximetry 96 98 97 Intake & Output 02/10/18 02/11/18 02/11/18 18:59 06:59 18:59 Intake Total 720 / 720 400 / 400 Output Total 400 / 400 800 / 800 Balance 320 / 320 -400 / -400 Weight 98.78 kg Intake: Oral 720 / 720 400 / 400 Output: Urine 400 / 400 800 / 800 Other: Date of Last Bowel Movement 02/10/18 02/11/18 # Bowel Movements 4 1 <Sin Victoria - 02/11/18 11:35> Narrative: General: Well-developed, alert, and in no acute distress. Neurologic: Oriented x3, mild confusion, likely baseline HEENT: Atraumatic, moist mucous membranes Neck: Supple, trachea midline Cardiac: Regular rate and rhythm without murmurs Pulmonary: Non-labored breathing. Lungs clear to auscultation bilaterally with good air movement Abdomen: Normal bowel sounds, soft and non-tender without rebound or guarding Extremities: No edema, 2+ pedal pulses, capillary refill less than 2 seconds Skin: Stage I sacral ulcer without signs of infection, stage I ulcer to the right heel <Sin Victoria - 02/11/18 11:35> - Urinary Catheter Management 400 Cath placed during this visit: no <Antelmo Olvera - 02/12/18 12:07> no <Sin Victoria - 02/11/18 16:23> Condom Cath placed during this visit: no <Antelmo Olvera - 02/12/18 12:07> no <Sin Victoria - 02/11/18 16:23> Straight Cath placed during this visit: no <Antelmo Olvera - 02/12/18 12:07> yes, but has since been removed by the nurse <Sin Victroia - 02/11/18 16:23> Reason for continuing: Not indwelling catheter <Sin Victoria - 11:35> Insertion date: 01/26/18 <Sin Victoria - 02/11/18 11:35> Insertion time: 17:30 <Sin Victoria - 02/11/18 11:35> Removal date: 01/26/18 <Sin Victoria - 02/11/18 11:35> Removal time: 17:35 <Sin Victoria - 02/11/18 11:35> Assessment and Plan - Assessment (1) Physical deconditioning Code(s): R53.81 - Other malaise Status: Acute (2) Esophageal varices in cirrhosis Code(s): K74.60 - Unspecified cirrhosis of liver; I85.10 - Secondary esophageal varices without bleeding Status: Chronic (3) Hypertension Code(s): I10 - Essential (primary) hypertension Status: Chronic (4) Alcohol abuse Code(s): F10.10 - Alcohol abuse, uncomplicated Status: Chronic (5) Depression with anxiety Code(s): F41.8 - Other specified anxiety disorders Status: Chronic (6) Cough Code(s): R05 - Cough Status: Resolved (7) Diabetes Code(s): E11.9 - Type 2 diabetes mellitus without complications Status: Chronic (8) Deep vein thrombosis (DVT) of brachial vein Code(s): I82.629 - Acute embolism and thrombosis of deep veins of unspecified upper extremity Status: Acute (9) Chest pain Code(s): R07.9 - Chest pain, unspecified Status: Resolved (10) Alcohol withdrawal Code(s): F10.239 - Alcohol dependence with withdrawal, unspecified Status: Resolved <Antelmo Olvera - 02/12/18 12:07> (1) Physical deconditioning Code(s): R53.81 - Other malaise Status: Acute (2) Esophageal varices in cirrhosis Code(s): K74.60 - Unspecified cirrhosis of liver; I85.10 - Secondary esophageal varices without bleeding Status: Chronic Plan: see below (3) Hypertension Code(s): I10 - Essential (primary) hypertension Status: Chronic Plan: see below (4) Alcohol abuse Code(s): F10.10 - Alcohol abuse, uncomplicated Status: Chronic Plan: see below (5) Depression with anxiety Code(s): F41.8 - Other specified anxiety disorders Status: Chronic Plan: see below (6) Cough Code(s): R05 - Cough Status: Resolved Plan: see below (7) Diabetes Code(s): E11.9 - Type 2 diabetes mellitus without complications Status: Chronic Plan: See below (8) Deep vein thrombosis (DVT) of brachial vein Code(s): I82.629 - Acute embolism and thrombosis of deep veins of unspecified upper extremity Status: Acute Plan: 1111 venous Doppler study: DVT of right mid brachial vein Anticoagulation therapy complicated given possible GI bleed -will follow critical care recommendations of Lovenox 40 (9) Chest pain Code(s): R07.9 - Chest pain, unspecified Status: Resolved Plan: see below (10) Alcohol withdrawal Code(s): F10.239 - Alcohol dependence with withdrawal, unspecified Status: Resolved Plan: see below <Sin Victoria - 02/11/18 16:22> - Assessment and Plan Patient is a 52-year-old male with medical history significant for alcoholism, cirrhosis, and esophageal varices who was admitted with esophageal varices, status post banding x4. He has had altered mental status for most of his hospitalization. He was intubated, and then extubated on 01/27. Repeat EGD on 02/05 showed no active bleed. He has significant physical deconditioning from his hospitalization. He is now working with physical therapy 7 days a week. Their recommendation for his deconditioning is that he go home with home health or to a assisted facility for rehab. His insurance is not wanting to cover either of these options at this time. Physical deconditioning: Physical therapy recommends a wheeled walker at home with home health PT, however he fell today attempting to get to the bedside commode. We will see what their evaluation of his is today. Esophageal varices in the context of cirrhosis: He is status post banding x4 at the beginning of this hospitalization. H&H was 8.1 today. EGD repeated without active bleeds 02/05, gastroenterology has signed off. His altered mental status is likely secondary to his liver disease. We are unsure of his baseline, however he is significantly less confused now. He is now oriented x3. He has been intermittently compliant with his lactulose. -Continue lactulose 4 times a day and Xifaxan 550 twice daily -Continue IV Protonix BID -Propranolol 40mg BID Pressure ulcers: Stage I sacral ulcer and stage I pressure ulcer of the right heel -Wound care nurse was consulted, please see their note for current wound care recommendations Hypertension: Amlodipine discontinued due to borderline hypotension, BP has been stable since -Bumex 0.5 mg daily -Propranolol as above Hyperlipidemia: -Continue home medication pravastatin 40 mg p.o. nightly Hypokalemia: -He has had some mild hypokalemia throughout his hospitalization. -Monitor and correct as needed Type 2 diabetes mellitus: He is continued to have blood sugars in the 100s and low 200s -Continue low dose SS insulin -Continue Levemir 10 units daily DVT of brachial vein (right): Last ultrasound on 01/28 was negative for DVT, DVT last seen the ultrasound on 01/19. Decision and amount of anticoagulation is complicated due to his variceal bleed. -We are following critical care as recommendation of the Lovenox 40mg daily Alcohol withdrawal: resolved He has a significant history of alcohol abuse and had been receiving treatment at [facility]. He had not been sober at the time of admission. He was transferred to the ICU secondary to withdraw. This has now resolved and he is not currently on any benzodiazepines. Fluids: Adequate p.o. intake Electrolytes: monitor and replete as needed. Nutrition: Regular diet GI prophylaxis: IV Protonix VTE prophylaxis: Lovenox 40mg q24 Disposition: He will need physical therapy at rehab, however he is not currently medically stable for discharge. He reports his primary care is through [facility]. We have asked physical therapy to work with him while he is in the hospital because we may have difficulty with placement due to his insurance. He states that there may be useful resources through [facility]. Today I have tried to get a hold of his outpatient case manager through [facility], but was unable. Patient was seen and examined with Dr. Olvera <Sin Victoria - 02/11/18 16:23> - Attending Attestation See the residents documentation for details. I saw and evaluated the patient regarding the manley portions of this evaluation and agree with the residents findings and plans as written. Parts of this note were created using [employer] voice recognition software program. While efforts were made to correct any mistakes made by this software, some mistakes, errors, and omissions may remain in the final note that were not caught when the note was originally created. Plan of care was discussed and agreed upon with the patient as specifically documented in the above note. An opportunity to ask questions with explanation was provided. Patient voiced understanding on all information reviewed and discussed. <Antelmo Olvera - 02/12/18 12:07>
[2018-02-11] MEDS: Enoxaparin Inj 40 MG/0.4 ML Syringe SQ SCH (15:33)
[2018-02-12] MEDS: Oral Hygiene Kit OROPHARYNG SCH ×3 (05:11→17:13)
[2018-02-12] MEDS: Artificial Tears Opth Drops 15 ML Bottle EACH EYE SCH ×3 (05:12→21:43)
[2018-02-12] MEDS: Insulin NovoLOG Aspart Correctional Sugar Inj SQ SCH ×3 (06:00→18:28)
[2018-02-12] MEDS: Propranolol 40 MG Tablet PO SCH ×2 (09:33→20:49)
[2018-02-12] MEDS: Sodium Chloride 0.9% 2 ML Flush BID IV.FLUSH SCH ×2 (09:34→20:50)
[2018-02-12] MEDS: rifAXIMin 550 MG Tablet PO SCH ×2 (09:34→20:49)
[2018-02-12] MEDS: Senna/Docusate Sodium 8.6/50 MG Tablet PO SCH ×2 (09:34→20:49)
[2018-02-12] MEDS: Pantoprazole Inj 40 MG Vial IV.PUSH SCH ×2 (09:34→20:49)
[2018-02-12] MEDS: Multivit/Folic Acid/Minerals Chewable Tablets CHEW SCH (09:34)
[2018-02-12] MEDS: Lidocaine 5% Patch T-DERMAL SCH (09:36)
[2018-02-12] MEDS: Chlorhexidine 0.12% Oral Kit 15 ML UDC OROPHARYNG SCH ×2 (09:37→19:13)
[2018-02-12] MEDS: Insulin Detemir Inj 1,000 UNIT/10 ML Vial SQ SCH ×2 (09:39→20:50)
--- NOTE | 2018-02-12 12:11 | P.PNFP ---
Subjective Interval history: No acute events overnight. He is still expressing his desire to go home. He has been compliant with his lactulose. Today he reports that he has had poor motivation secondary to his mood. He did not work with physical therapy yesterday due to this. Continues to be oriented x3 and is likely at his baseline mental status. He denies fever, chills, lightheadedness, dizziness, nausea, vomiting, chest pain, palpitations, and abdominal pain. <Sin Victoria - 02/12/18 12:15> Results - Labs Result diagrams: 02/11/18 06:57 02/11/18 06:57 <Antelmo Olvera - 02/12/18 14:07> Abnormal lab results 02/11/18 02/11/18 02/11/18 Range/Units 17:13 21:40 23:22 POC Glucose 152 H 168 H 166 H (68-110) mg/dl 02/12/18 02/12/18 Range/Units 05:10 11:54 POC Glucose 170 H 254 H (68-110) mg/dl <Antelmo Olvera - 02/12/18 14:07> Abnormal lab results 02/11/18 02/11/18 02/11/18 Range/Units 12:51 17:13 21:40 POC Glucose 182 H 152 H 168 H (68-110) mg/dl 02/11/18 02/12/18 02/12/18 Range/Units 23:22 05:10 11:54 POC Glucose 166 H 170 H 254 H (68-110) mg/dl <Sin Victoria - 02/12/18 12:11> Physical Exam Vital signs: Vital Signs 02/11/18 16:00 02/11/18 16:21 02/11/18 17:17 Temperature 98.8 F 98.8 F Pulse Rate 88 78 Respiratory Rate 18 16 Blood Pressure 121/78 121/87 Pulse Oximetry 93 L 93 L 02/11/18 20:00 02/12/18 00:00 02/12/18 04:00 Temperature 98.3 F 100.8 F H 99.6 F Pulse Rate 83 85 81 Respiratory Rate 16 16 17 Blood Pressure 123/75 142/67 H 134/74 Pulse Oximetry 98 96 95 02/12/18 08:00 02/12/18 12:00 Temperature 98.6 F 98.2 F Pulse Rate 75 77 Respiratory Rate 18 18 Blood Pressure 155/79 H 128/73 Pulse Oximetry 97 98 Intake & Output 02/11/18 02/12/18 02/12/18 18:59 06:59 18:59 Intake Total 1200 / 1200 Output Total 300 / 300 3225 / 3225 Balance -300 / -300 -2024 Weight 95.8 kg Intake: Oral 1200 / 1200 Output: Urine 300 / 300 3225 / 3225 Other: Date of Last Bowel Movement 02/11/18 # Bowel Movements 0 <Antelmo Olvera - 02/12/18 14:07> Vital Signs 02/11/18 12:21 02/11/18 16:00 02/11/18 16:21 Temperature 98.6 F 98.8 F 98.8 F Pulse Rate 72 88 78 Respiratory Rate 18 18 16 Blood Pressure 130/70 121/78 121/87 Pulse Oximetry 93 L 02/11/18 17:17 02/11/18 20:00 02/12/18 00:00 Temperature 98.3 F 100.8 F H Pulse Rate 83 85 Respiratory Rate 16 16 Blood Pressure 123/75 142/67 H Pulse Oximetry 93 L 98 96 02/12/18 04:00 02/12/18 08:00 Temperature 99.6 F 98.6 F Pulse Rate 81 75 Respiratory Rate 17 18 Blood Pressure 134/74 155/79 H Pulse Oximetry 95 97 Intake & Output 02/11/18 02/12/18 02/12/18 18:59 06:59 18:59 Intake Total 1200 / 1200 Output Total 300 / 300 3225 / 3225 Balance -300 / -300 -2024 Weight 95.8 kg Intake: Oral 1200 / 1200 Output: Urine 300 / 300 5 / 3225 Other: Date of Last Bowel Movement 02/11/18 # Bowel Movements 0 <Sin Victoria - 02/12/18 12:11> Narrative: General: Well-developed, alert, and in no acute distress. Neurologic: Oriented x3, depressed affect HEENT: Atraumatic, moist mucous membranes Neck: Supple, trachea midline Cardiac: Regular rate and rhythm without murmurs Pulmonary: Non-labored breathing. Lungs clear to auscultation bilaterally with good air movement Abdomen: Normal bowel sounds, soft and non-tender without rebound or guarding Extremities: No edema, 2+ pedal pulses, capillary refill less than 2 seconds <Sin Victoria - 02/12/18 12:15> - Urinary Catheter Management 400 Cath placed during this visit: no <Antelmo Olvera - 02/12/18 14:07> no <Sin Victoria - 02/12/18 12:17> Condom Cath placed during this visit: no <Antelmo Olvera - 02/12/18 14:07> no <NedaSin trevizo - 02/12/18 12:17> Straight Cath placed during this visit: no <Antelmo Olvera - 02/12/18 14:07> yes, but has since been removed by the nurse <Sin Victoria - 02/12/18 12:17> Reason for continuing: Not indwelling catheter <Sin Victoria - 12:11> Insertion date: 01/26/18 <Sin Victoria - 02/12/18 12:11> Insertion time: 17:30 <Sin Victoria - 02/12/18 12:11> Removal date: 01/26/18 <Sin Victoria - 02/12/18 12:11> Removal time: 17:35 <Sin Victoria - 02/12/18 12:11> Assessment and Plan - Assessment (1) Physical deconditioning Code(s): R53.81 - Other malaise Status: Acute (2) Esophageal varices in cirrhosis Code(s): K74.60 - Unspecified cirrhosis of liver; I85.10 - Secondary esophageal varices without bleeding Status: Chronic (3) Hypertension Code(s): I10 - Essential (primary) hypertension Status: Chronic (4) Alcohol abuse Code(s): F10.10 - Alcohol abuse, uncomplicated Status: Chronic (5) Depression with anxiety Code(s): F41.8 - Other specified anxiety disorders Status: Chronic (6) Cough Code(s): R05 - Cough Status: Resolved (7) Diabetes Code(s): E11.9 - Type 2 diabetes mellitus without complications Status: Chronic (8) Deep vein thrombosis (DVT) of brachial vein Code(s): I82.629 - Acute embolism and thrombosis of deep veins of unspecified upper extremity Status: Acute (9) Chest pain Code(s): R07.9 - Chest pain, unspecified Status: Resolved (10) Alcohol withdrawal Code(s): F10.239 - Alcohol dependence with withdrawal, unspecified Status: Resolved <Antelmo Olvera - 02/12/18 14:07> (1) Physical deconditioning Code(s): R53.81 - Other malaise Status: Acute (2) Esophageal varices in cirrhosis Code(s): K74.60 - Unspecified cirrhosis of liver; I85.10 - Secondary esophageal varices without bleeding Status: Chronic Plan: see below (3) Hypertension Code(s): I10 - Essential (primary) hypertension Status: Chronic Plan: see below (4) Alcohol abuse Code(s): F10.10 - Alcohol abuse, uncomplicated Status: Chronic Plan: see below (5) Depression with anxiety Code(s): F41.8 - Other specified anxiety disorders Status: Chronic Plan: see below (6) Cough Code(s): R05 - Cough Status: Resolved Plan: see below (7) Diabetes Code(s): E11.9 - Type 2 diabetes mellitus without complications Status: Chronic Plan: See below (8) Deep vein thrombosis (DVT) of brachial vein Code(s): I82.629 - Acute embolism and thrombosis of deep veins of unspecified upper extremity Status: Acute Plan: See below (9) Chest pain Code(s): R07.9 - Chest pain, unspecified Status: Resolved Plan: see below (10) Alcohol withdrawal Code(s): F10.239 - Alcohol dependence with withdrawal, unspecified Status: Resolved Plan: see below <Sin Victoria - 02/12/18 12:17> - Assessment and Plan Patient is a 52-year-old male with medical history significant for alcoholism, cirrhosis, and esophageal varices who was admitted with esophageal varices, status post banding x4. He has had altered mental status for most of his hospitalization. He was intubated, and then extubated on 01/27. Repeat EGD on 02/05 showed no active bleed. He has significant physical deconditioning from his hospitalization. He is now working with physical therapy 7 days a week. Their recommendation for his deconditioning is that he go home with home health or to a shelter facility for rehab. His insurance is not wanting to cover either of these options at this time. Physical deconditioning: Physical therapy recommends a wheeled walker at home with home health PT, however he fell yesterday attempting to get to the bedside commode. Yesterday he did not work with physical therapy due to his mood and lack of motivation. We wish for him to have physical therapy 7 days a week. Depression and anxiety: He does have a history of depression and has been on psychoactive medication in the past. He says that he is on gabapentin which helps with his depression and anxiety, and also Depakote. He is unsure what other medications he has been on. He reports that he is more depressed because he is stuck in the hospital with no one to talk to. He wishes to be evaluated by a psychiatrist. -Psychiatry consulted -Gabapentin 400 mg 3 times daily started -Home medication Depakote continued Esophageal varices in the context of cirrhosis: He is status post banding x4 at the beginning of this hospitalization. H&H was 8.1 today. EGD repeated without active bleeds 02/05, gastroenterology has signed off. His altered mental status is likely secondary to his liver disease. We are unsure of his baseline, however he is significantly less confused now. He is now oriented x3. He has been intermittently compliant with his lactulose. -Continue lactulose 4 times a day and Xifaxan 550 twice daily -Continue IV Protonix BID -Propranolol 40mg BID Pressure ulcers: Stage I sacral ulcer and stage I pressure ulcer of the right heel -Wound care nurse was consulted, please see their note for current wound care recommendations Hypertension: Amlodipine discontinued due to borderline hypotension, BP has been stable since -Bumex 0.5 mg daily -Propranolol as above Hyperlipidemia: -Continue home medication pravastatin 40 mg p.o. nightly Hypokalemia: -He has had some mild hypokalemia throughout his hospitalization. -Monitor and correct as needed Type 2 diabetes mellitus: He is continued to have blood sugars in the 100s and low 200s -Continue low dose SS insulin -Continue Levemir 10 units daily DVT of brachial vein (right): Last ultrasound on 01/28 was negative for DVT, DVT last seen the ultrasound on 01/19. -Lovenox 40mg daily Alcohol withdrawal: resolved He has a significant history of alcohol abuse and had been receiving treatment at [facility]. He had not been sober at the time of admission. He was transferred to the ICU secondary to withdraw. This has now resolved and he is not currently on any benzodiazepines. Fluids: Adequate p.o. intake Electrolytes: monitor and replete as needed. Nutrition: Regular diet GI prophylaxis: IV Protonix VTE prophylaxis: Lovenox 40mg q24 Disposition: He will need physical therapy at rehab, however he is not currently medically stable for discharge. He reports his primary care is through [facility]. We have asked physical therapy to work with him while he is in the hospital because we may have difficulty with placement due to his insurance. He states that there may be useful resources through [facility]. I have tried to get a hold of his behavioral health case manager through [facility], but was unable. Patient was seen and examined with Dr. Campbell and Dr. Olvera <Sin Victoria - 02/12/18 12:14> - Attending Attestation See the residents documentation for details. I saw and evaluated the patient regarding the manley portions of this evaluation and agree with the residents findings and plans as written. Parts of this note were created using Stream voice recognition software program. While efforts were made to correct any mistakes made by this software, some mistakes, errors, and omissions may remain in the final note that were not caught when the note was originally created. Plan of care was discussed and agreed upon with the patient as specifically documented in the above note. An opportunity to ask questions with explanation was provided. Patient voiced understanding on all information reviewed and discussed. <Antelmo Olvera - 02/12/18 14:07>
--- NOTE | 2018-02-12 12:53 | P.DIET ---
Nutritional Evaluation Type of nutrition evaluation: follow-up Nutrition consult regarding: Tube Feeding (TFing d/c'ed) Subjective Subjective Comments: Eating >50% Objective - Diagnosis abd pain, mesenteric edema, vomiting - Objective % IBW: 137 (IBW = 160lb) Body Weight Used for Calculations: IBW Energy Needs - Lower Range (kCal/kg): 28 Energy Needs - Upper Range (kCal/kg): 32 Lower Limit kCal/kg (kCals): 2,036 Upper Limit kCal/kg (kCals): 2,326 Lower Limit Protein Factor (Grams per Kg): 1.2 Upper Limit Protein Factor (Grams per Kg): 1.5 Lower Protein Needs (Protein): 87 Upper Protein Needs (Protein): 109 Dietitian Reviewed in Medical Record: Current diet, Curent medications, Intake & Output, Labs, Medical history Diet Order: Regular Wound Care Note: see WOCN dated (02/07) Objective Comments: PMH: depression, DM, esophageal varices, ETOH abuse, GI bleed, HTN Assessment Assessment: [facility] and he is tolerating a regular diet and eating >50%. Consult RD if needed. Recommendations: Diet as ordered
[2018-02-12] MEDS: Ferrous Sulfate 325 MG Tablet PO SCH ×2 (12:59→17:28)
[2018-02-12] MEDS: Gabapentin 400 MG Capsule PO SCH ×2 (12:59→17:28)
[2018-02-12] MEDS: Enoxaparin Inj 40 MG/0.4 ML Syringe SQ SCH (17:28)
--- NOTE | 2018-02-12 19:06 | P.PNPL ---
Subjective Interval history: 52 YO male with GIB, cirrhosis Developed resp distress, agitation Extubated 01/27 Alert, awake, follows commands Denies sob Physical Exam Vital signs: Vital Signs 02/11/18 20:00 02/12/18 00:00 02/12/18 04:00 Temperature 98.3 F 100.8 F H 99.6 F Pulse Rate 83 85 81 Respiratory Rate 16 16 17 Blood Pressure 123/75 142/67 H 134/74 Pulse Oximetry 98 96 95 02/12/18 08:00 02/12/18 12:00 02/12/18 16:00 Temperature 98.6 F 98.2 F 98.0 F Pulse Rate 75 70 88 Respiratory Rate 18 18 18 Blood Pressure 155/79 H 128/73 145/80 H Pulse Oximetry 97 98 98 Intake & Output 02/12/18 02/12/18 02/13/18 06:59 18:59 06:59 Intake Total 1200 / 1200 Output Total 3225 / 3225 2170 / 2170 Balance -2024 / -2024 -2169 / -2169 Weight 95.8 kg Intake: Oral 1200 / 1200 Output: Urine 3225 / 3225 2170 / 2170 Other: Date of Last Bowel Movement 02/11/18 # Bowel Movements 0 2 GENERAL: WBWN NAD SKIN: Warm and dry. HEAD: Normocephalic. EYES: No scleral icterus. No injection or drainage. NECK: Supple, trachea midline. No JVD or lymphadenopathy. CARDIOVASCULAR: Regular rate and rhythm without murmurs, gallops, or rubs. RESPIRATORY: Breath sounds equal bilaterally. No accessory muscle use. GASTROINTESTINAL: Abdomen soft, non-tender, nondistended. MUSCULOSKELETAL: No cyanosis, or edema. BACK: Nontender without obvious deformity. No CVA tenderness. - Urinary Catheter Management Straight Cath placed during this visit: yes, but has since been removed by the nurse Reason for continuing: Not indwelling catheter Insertion date: 01/26/18 Insertion time: 17:30 Removal date: 01/26/18 Removal time: 17:35 Condom Cath placed during this visit: no 400 Cath placed during this visit: no Assessment and Plan - Plan IMPRESSION: 1. Mild shortness of breath and cough, possibly underlying asthma. 2. Hypertension. 3. Diabetes mellitus. 4. Cirrhosis of the liver. 5. VDRF, s/p extubation 01/27 6. Encephalopathy. PLAN: Protonix 40 mg daily Monitor Ammonia level. Aerosol nebs SQ Lovenox Bumex 0.5 mg daily Stable on RA Neurontin 400 mg tid.
[2018-02-13] MEDS: Insulin NovoLOG Aspart Correctional Sugar Inj SQ SCH ×5 (00:11→23:43)
[2018-02-13] MEDS: Oral Hygiene Kit OROPHARYNG SCH ×5 (00:12→23:43)
[2018-02-13] MEDS: Artificial Tears Opth Drops 15 ML Bottle EACH EYE SCH ×3 (05:15→21:33)
[2018-02-13 06:45] LABS: Hemoglobin 8.3 gm/dL (13.0-17.0); Mean Corpuscular HGB Conc 33.4 % (32.0-36.0); Mean Corpuscular Hemoglobin 27.4 pg (27.0-34.0); Mean Platelet Volume 7.9 fL (7.0-11.0); Platelet Count 154 th/mm3 (150-450); Red Blood Count 3.04 mil/mm3 (4.50-5.90); Red Cell Distribution Width 23.5 % (11.6-17.2); White Blood Count 12.1 th/mm3 (4.0-11.0)
[2018-02-13 06:59] LABS: Anion Gap 7 meq/L (5-15); Blood Urea Nitrogen 7 mg/dL (7-18); Calcium 8.1 mg/dL (8.5-10.1); Carbon Dioxide 32.4 meq/L (21.0-32.0); Chloride 100 meq/L (98-107); Glomerular Filtration Rate Greater Than 89 mL/min (>89); Glucose,Random 162 mg/dL (74-106); Potassium 3.7 meq/L (3.5-5.1); Sodium 139 meq/L (136-145)
[2018-02-13] MEDS: Chlorhexidine 0.12% Oral Kit 15 ML UDC OROPHARYNG SCH ×2 (09:07→19:27)
[2018-02-13] MEDS: Pantoprazole Inj 40 MG Vial IV.PUSH SCH ×2 (09:08→20:40)
[2018-02-13] MEDS: rifAXIMin 550 MG Tablet PO SCH ×2 (09:08→20:40)
[2018-02-13] MEDS: Propranolol 40 MG Tablet PO SCH ×2 (09:08→20:40)
[2018-02-13] MEDS: Lidocaine 5% Patch T-DERMAL SCH (09:09)
[2018-02-13] MEDS: Gabapentin 400 MG Capsule PO SCH ×3 (09:09→18:10)
[2018-02-13] MEDS: Insulin Detemir Inj 1,000 UNIT/10 ML Vial SQ SCH (09:09)
[2018-02-13] MEDS: Multivit/Folic Acid/Minerals Chewable Tablets CHEW SCH (09:09)
[2018-02-13] MEDS: Senna/Docusate Sodium 8.6/50 MG Tablet PO SCH ×2 (09:10→20:40)
[2018-02-13] MEDS: Sodium Chloride 0.9% 2 ML Flush BID IV.FLUSH SCH ×2 (09:10→20:40)
--- NOTE | 2018-02-13 12:00 | P.PNFP ---
Subjective Interval history: Patient seen and examined this morning. Patient reports he is having difficulty moving his left leg. This started yesterday, he attributes this to the fall 2 days ago. He notes that he has been working with physical therapy and requires them to straighten his leg manually. Patient reports he cannot straighten his left leg on his own. He denies any pain in his left hip, left knee, left ankle. Denies any difficulty moving his ankle. He states he has significant pain in his left quadriceps. Denies nausea, vomiting, fever, chills, abdominal pain, chest pain, lightheadedness, dizziness , any further falls. No other complaints today. No acute events overnight. <Florian Campbell - 02/13/18 12:00> Results - Labs Result diagrams: 02/13/18 05:59 02/13/18 05:59 <Antelmo Olvera - 02/13/18 14:41> Abnormal lab results 02/12/18 02/13/18 02/13/18 Range/Units 18:18 05:13 05:59 WBC 12.1 H (4.0-11.0) th/mm3 RBC 3.04 L (4.50-5.90) mil/mm3 Hgb 8.3 L (13.0-17.0) gm/dL Hct 25.0 L (39.0-51.0) % RDW 23.5 H (11.6-17.2) % Carbon Dioxide (21.0-32.0) meq/L POC Glucose 189 H 200 H (68-110) mg/dl Random Glucose (74-106) mg/dL Calcium (8.5-10.1) mg/dL Ammonia (11-32) mcmol/L 02/13/18 02/13/18 02/13/18 Range/Units 05:59 05:59 12:49 WBC (4.0-11.0) th/mm3 RBC (4.50-5.90) mil/mm3 Hgb (13.0-17.0) gm/dL Hct (39.0-51.0) % RDW (11.6-17.2) % Carbon Dioxide 32.4 H (21.0-32.0) meq/L POC Glucose 225 H (68-110) mg/dl Random Glucose 162 H (74-106) mg/dL Calcium 8.1 L (8.5-10.1) mg/dL Ammonia 36 H (11-32) mcmol/L Short CBC 02/13/18 Range/Units 05:59 WBC 12.1 H (4.0-11.0) th/mm3 Hgb 8.3 L (13.0-17.0) gm/dL Hct 25.0 L (39.0-51.0) % Plt Count 154 (150-450) th/mm3 [facility] 02/13/18 05:59 Sodium 139 Potassium 3.7 Chloride 100 Carbon Dioxide 32.4 H BUN 7 Creatinine 0.75 Calcium 8.1 L <Antelmo Olvera - 02/13/18 14:41> Abnormal lab results 02/12/18 02/12/18 02/13/18 Range/Units 11:54 18:18 05:13 WBC (4.0-11.0) th/mm3 RBC (4.50-5.90) mil/mm3 Hgb (13.0-17.0) gm/dL Hct (39.0-51.0) % RDW (11.6-17.2) % Carbon Dioxide (21.0-32.0) meq/L POC Glucose 254 H 189 H 200 H (68-110) mg/dl Random Glucose (74-106) mg/dL Calcium (8.5-10.1) mg/dL Ammonia (11-32) mcmol/L 02/13/18 02/13/18 02/13/18 Range/Units 05:59 05:59 05:59 WBC 12.1 H (4.0-11.0) th/mm3 RBC 3.04 L (4.50-5.90) mil/mm3 Hgb 8.3 L (13.0-17.0) gm/dL Hct 25.0 L (39.0-51.0) % RDW 23.5 H (11.6-17.2) % Carbon Dioxide 32.4 H (21.0-32.0) meq/L POC Glucose (68-110) mg/dl Random Glucose 162 H (74-106) mg/dL Calcium 8.1 L (8.5-10.1) mg/dL Ammonia 36 H (11-32) mcmol/L Short CBC 02/13/18 Range/Units 05:59 WBC 12.1 H (4.0-11.0) th/mm3 Hgb 8.3 L (13.0-17.0) gm/dL Hct 25.0 L (39.0-51.0) % Plt Count 154 (150-450) th/mm3 BMP 02/13/18 05:59 Sodium 139 Potassium 3.7 Chloride 100 Carbon Dioxide 32.4 H BUN 7 Creatinine 0.75 Calcium 8.1 L <Florian Campbell - 02/13/18 12:00> Physical Exam Vital signs: Vital Signs 02/12/18 16:00 02/12/18 20:00 02/13/18 00:00 Temperature 98.0 F 100.2 F H 99.6 F Pulse Rate 75 104 H 85 Respiratory Rate 18 18 18 Blood Pressure 145/80 H 128/68 132/75 Pulse Oximetry 98 95 96 02/13/18 04:00 02/13/18 08:00 Temperature 98.3 F 98.4 F Pulse Rate 86 83 Respiratory Rate 18 18 Blood Pressure 162/80 H 136/80 Pulse Oximetry 97 94 L Intake & Output 02/12/18 02/13/18 02/13/18 18:59 06:59 18:59 Intake Total 720 / 720 Output Total 2170 / 2170 1500 / 1500 Balance -2170 / -2170 -780 / -780 Weight 92.8 kg Intake: Oral 720 / 720 Output: Urine 2170 / 2170 1500 / 1500 Other: Date of Last Bowel Movement 02/11/18 02/11/18 # Bowel Movements 2 0 <Antelmo Olvera - 02/13/18 14:41> Vital Signs 02/12/18 12:00 02/12/18 16:00 02/12/18 20:00 Temperature 98.2 F 98.0 F 100.2 F H Pulse Rate 70 75 104 H Respiratory Rate 18 18 18 Blood Pressure 128/73 145/80 H 128/68 Pulse Oximetry 98 98 95 02/13/18 00:00 02/13/18 04:00 02/13/18 08:00 Temperature 99.6 F 98.3 F 98.4 F Pulse Rate 85 86 83 Respiratory Rate 18 18 18 Blood Pressure 132/75 162/80 H 136/80 Pulse Oximetry 96 97 94 L Intake & Output 02/12/18 02/13/18 02/13/18 18:59 06:59 18:59 Intake Total 720 / 720 Output Total 2170 / 2170 1500 / 1500 Balance -2170 / -2170 -780 / -780 Weight 92.8 kg Intake: Oral 720 / 720 Output: Urine 2170 / 2170 1500 / 1500 Other: Date of Last Bowel Movement 02/11/18 02/11/18 # Bowel Movements 2 0 <Florian Campbell - 02/13/18 12:00> Narrative: General: Well-developed, alert, and in no acute distress. Neurologic: Oriented x3, depressed affect HEENT: Atraumatic, moist mucous membranes Neck: Supple, trachea midline Cardiac: Regular rate and rhythm without murmurs Pulmonary: Non-labored breathing. Lungs clear to auscultation bilaterally with good air movement Abdomen: Normal bowel sounds, soft and non-tender without rebound or guarding Extremities: No edema, 2+ pedal pulses, capillary refill less than 2 seconds. 5/ 5 bl ankle strength. Does not attempt to move left leg at the knee secondary to pain. Will not even attempt a muscle flicker. Mild pain to palpation on left quadriceps. <Florian Campbell - 02/13/18 12:00> - Urinary Catheter Management 400 Cath placed during this visit: no <Antelmo Olvera - 02/13/18 14:41> no <Florian Campbell - 02/13/18 12:00> Condom Cath placed during this visit: no <Antelmo Olvera - 02/13/18 14:41> no <Florian Campbell - 02/13/18 12:00> Straight Cath placed during this visit: no <Antelmo Olvera - 02/13/18 14:41> yes, but has since been removed by the nurse <Florian Campbell - 02/13/18 12:00> Reason for continuing: Not indwelling catheter <Florian Campbell - 02/13/18 12 :00> Insertion date: 01/26/18 <Florian Campbell - 02/13/18 12:00> Insertion time: 17:30 <Florian Campbell - 02/13/18 12:00> Removal date: 01/26/18 <Florian Campbell - 02/13/18 12:00> Removal time: 17:35 <Florian Campbell - 02/13/18 12:00> Assessment and Plan - Assessment (1) Esophageal varices in cirrhosis Code(s): K74.60 - Unspecified cirrhosis of liver; I85.10 - Secondary esophageal varices without bleeding Status: Chronic (2) Hypertension Code(s): I10 - Essential (primary) hypertension Status: Chronic (3) Alcohol abuse Code(s): F10.10 - Alcohol abuse, uncomplicated Status: Chronic (4) Depression with anxiety Code(s): F41.8 - Other specified anxiety disorders Status: Chronic (5) Cough Code(s): R05 - Cough Status: Resolved (6) Diabetes Code(s): E11.9 - Type 2 diabetes mellitus without complications Status: Chronic (7) Deep vein thrombosis (DVT) of brachial vein Code(s): I82.629 - Acute embolism and thrombosis of deep veins of unspecified upper extremity Status: Acute (8) Chest pain Code(s): R07.9 - Chest pain, unspecified Status: Resolved (9) Alcohol withdrawal Code(s): F10.239 - Alcohol dependence with withdrawal, unspecified Status: Resolved (10) Physical deconditioning Code(s): R53.81 - Other malaise Status: Acute <Antelmo Olvera - 02/13/18 14:41> (1) Esophageal varices in cirrhosis Code(s): K74.60 - Unspecified cirrhosis of liver; I85.10 - Secondary esophageal varices without bleeding Status: Chronic Plan: see below (2) Hypertension Code(s): I10 - Essential (primary) hypertension Status: Chronic Plan: see below (3) Alcohol abuse Code(s): F10.10 - Alcohol abuse, uncomplicated Status: Chronic Plan: see below (4) Depression with anxiety Code(s): F41.8 - Other specified anxiety disorders Status: Chronic Plan: see below (5) Cough Code(s): R05 - Cough Status: Resolved Plan: see below (6) Diabetes Code(s): E11.9 - Type 2 diabetes mellitus without complications Status: Chronic Plan: See below (7) Deep vein thrombosis (DVT) of brachial vein Code(s): I82.629 - Acute embolism and thrombosis of deep veins of unspecified upper extremity Status: Acute Plan: See below (8) Chest pain Code(s): R07.9 - Chest pain, unspecified Status: Resolved Plan: see below (9) Alcohol withdrawal Code(s): F10.239 - Alcohol dependence with withdrawal, unspecified Status: Resolved Plan: see below (10) Physical deconditioning Code(s): R53.81 - Other malaise Status: Acute <Florian Campbell - 02/13/18 11:54> - Assessment and Plan Patient is a 52-year-old male with medical history significant for alcoholism, cirrhosis, and esophageal varices who was admitted with esophageal varices, status post banding x4. He has had altered mental status for most of his hospitalization. He was intubated, and then extubated on 01/27. Repeat EGD on 02/05 showed no active bleed. He has significant physical deconditioning from his hospitalization. He is now working with physical therapy 7 days a week. Their recommendation for his deconditioning is that he go home with home health or to a shelter facility for rehab. His insurance is not wanting to cover either of these options at this time. Physical deconditioning: Physical therapy recommends a wheeled walker at home with home health PT, however he fell yesterday attempting to get to the bedside commode. Yesterday he did not work with physical therapy due to his mood and lack of motivation. We wish for him to have physical therapy 7 days a week. Complains of inability to move left leg on 02/13/18. -Follow-up x-ray pelvis, left femur, left knee -Continue physical therapy Depression and anxiety: He does have a history of depression and has been on psychoactive medication in the past. He says that he is on gabapentin which helps with his depression and anxiety, and also Depakote. He is unsure what other medications he has been on. He reports that he is more depressed because he is stuck in the hospital with no one to talk to. He wishes to be evaluated by a psychiatrist. -Psychiatry consulted, f/u recommendations -Gabapentin 400 mg 3 times daily started -Home medication Depakote continued Esophageal varices in the context of cirrhosis: He is status post banding x4 at the beginning of this hospitalization. H&H was 8.1 today. EGD repeated without active bleeds 02/05, gastroenterology has signed off. His altered mental status is likely secondary to his liver disease. We are unsure of his baseline, however he is significantly less confused now. He is now oriented x3. He has been intermittently compliant with his lactulose. -Continue lactulose 4 times a day and Xifaxan 550 twice daily -Continue IV Protonix BID -Propranolol 40mg BID Pressure ulcers: Stage I sacral ulcer and stage I pressure ulcer of the right heel -Wound care nurse was consulted, please see their note for current wound care recommendations Hypertension: Amlodipine discontinued due to borderline hypotension, BP has been stable since -Bumex 0.5 mg daily -Propranolol as above Hyperlipidemia: -Continue home medication pravastatin 40 mg p.o. nightly Hypokalemia: -He has had some mild hypokalemia throughout his hospitalization. -Monitor and correct as needed Type 2 diabetes mellitus: He is continued to have blood sugars in the 100s and low 200s -Continue low dose SS insulin -Continue Levemir 10 units daily DVT of brachial vein (right): Last ultrasound on 01/28 was negative for DVT, DVT last seen the ultrasound on 01/19. -Lovenox 40mg daily Alcohol withdrawal: resolved He has a significant history of alcohol abuse and had been receiving treatment at [facility]. He had not been sober at the time of admission. He was transferred to the ICU secondary to withdraw. This has now resolved and he is not currently on any benzodiazepines. Fluids: Adequate p.o. intake Electrolytes: monitor and replete as needed. Nutrition: Regular diet GI prophylaxis: IV Protonix VTE prophylaxis: Lovenox 40mg q24 Disposition: He will need physical therapy at rehab, however he is not currently medically stable for discharge. He reports his primary care is through [facility]. We have asked physical therapy to work with him while he is in the hospital because we may have difficulty with placement due to his insurance. He states that there may be useful resources through [facility]. 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 <Florian Campbell - 02/13/18 12:00> - Attending Attestation See the residents documentation for details. I saw and evaluated the patient regarding the manley portions of this evaluation and agree with the residents findings and plans as written. Parts of this note were created using [employer] voice recognition software program. While efforts were made to correct any mistakes made by this software, some mistakes, errors, and omissions may remain in the final note that were not caught when the note was originally created. Plan of care was discussed and agreed upon with the patient as specifically documented in the above note. An opportunity to ask questions with explanation was provided. Patient voiced understanding on all information reviewed and discussed. <Antelmo Olvera - 02/13/18 14:41>
--- NOTE | 2018-02-13 13:23 | P.CONPSY ---
Provisional Diagnosis Admission Date: January 17, 2018 16:20 [place] I.: Major depressive disorder, recurrent, severe, without psychosis, alcohol use disorder, cannabis use disorder History of Present Illness Primary Care Provider: Yvon Oscar Chief Complaint: abdominal pain and vomiting History of Present Illness: The patient is a 52-year-old man, domiciled in [facility] in the [facility], unemployed, supported by SSI, , with a psychiatric history of depression, anxiety, alcohol use disorder, multiple psychiatric hospitalizations, last one was about a year ago in [facility], 2 previous suicide attempts, he is not in psychotropics with medical history significant cirrhosis and esophageal varices who was admitted with esophageal varices, status post banding x4. He has had altered mental status for most of his hospitalization. He was intubated, and then extubated on 01/27. Repeat EGD on 02/05 showed no active bleed. He has significant physical deconditioning from his hospitalization. He is now working with physical therapy 7 days a week. Their recommendation for his deconditioning is that he go home with home health or to a long-term facility for rehab. The patient was consulted to psychiatry as per patient's request due to depression and anxiety. Chart was reviewed. On my psychiatric evaluation the patient is calm, cooperative, he reports to be very depressed and anxious due to the fact that he is here. He says that he is craving to be discharged from this place. He says that he has been here too long now and he needs to see his son and take fresh air. He says that he has been experiencing an increased sensation of hopelessness, helplessness, guiltiness due to his medical situation, lack of energy, poor sleep at night and increased anxiety. He denies suicidal and homicidal ideation , he denies visual and auditory hallucinations. He is fully oriented x3 at the moment, logical, coherent and relevant. He seems to be future oriented and motivated to continue sobriety and get better medically. PPHx: a psychiatric history of depression, anxiety, alcohol use disorder, multiple psychiatric hospitalizations, last one was about a year ago in [facility], 2 previous suicide attempts, he is not in psychotropics PMHx: medical history significant cirrhosis and esophageal varices Substance Hx: Patient reports daily use of alcohol, marijuana, denies other illegal drug Family Hx: No family psychiatric history Social HX: Patient was born and raised in the [facility], he lives in [facility] in the [facility], , unemployed, supported by SSI, highest level of education is 8 grade Review of Systems All other systems reviewed negative except as stated in HPI Psychiatric: Reports abnormal sleep pattern, Reports anxiety, Reports depression , Reports mood swings PMFSH - History History 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, 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 / EMT - Medical History Medical History: Medical History (Last Reviewed 02/13/18 @ 08:39 by Viri Bean) MDRO (multiple drug resistant organisms) resistance Onset Date: ~01/19/18 Depression Diabetes ETOH abuse Esophageal varices GI bleed HTN (hypertension) - Family History Family History: Family History (Last Reviewed 02/13/18 @ 08:39 by Viri Bean) Other Family history of cancer Family history of colon cancer - Tobacco History Second Hand Smoke Exposure: Yes Tobacco Use In Past 30 Days: Yes Smoking Status: Current every day smoker Tobacco Type: Cigarettes - Alcohol History How Often Do You Have a Drink Containing Alcohol: 2 to 3 times a week - Substance Use History Substance History: Active Abuse - Substance Use Type Marijuana Type: marijuana Status: Active Route Used: Inhalation Reason for Use: Calm Down - Travel History Recent Travel in the [place] Within the Last 8 Weeks: No Recent Travel Out of the Country Within the Last 8 Weeks: No - Immunization History Tetanus Immunization: >5 Years Hx Influenza Vaccine This Season: No Medications and Allergies Active Medications: Active Medications Al Hydroxide/Mg Hydroxide (Milk Of Arabella Liq) 30 ml PO Q12H PRN PRN Reason: Mild Constipation Last Admin: 01/23/18 10:36 Dose: 30 ml Albuterol (Albuterol Neb (Prn)) 2.5 mg NEB Q2HR NEB PRN PRN Reason: DYSPNEA Last Admin: 01/28/18 04:21 Dose: 2.5 mg Artificial Tears (Tears Naturale Opth Drops) 1 drop EACH EYE Q8H MANUEL Last Admin: 02/13/18 05:15 Dose: Not Given Bisacodyl (Dulcolax Supp) 10 mg RECTAL DAILY PRN PRN Reason: SEVERE CONSITIPATION Bumetanide (Bumex) 0.5 mg PO DAILY MANUEL Last Admin: 02/13/18 09:08 Dose: 0.5 mg Chlorhexidine Gluconate (Peridex 0.12% Oral Kit) 15 ml OROPHARYNG BID@0800, 2000 [facility] Last Admin: 02/13/18 09:07 Dose: Not Given Dextrose (D50w Vial) 50 ml IV.PUSH UNSCH PRN PRN Reason: PER HYPOGLYCEMIA PROTOCOL Enoxaparin Sodium (Lovenox Inj) 40 mg SQ Q24H [facility] Last Admin: 02/12/18 17:28 Dose: 40 mg Ferrous Sulfate (Ferosul) 325 mg PO BID@1200,1700 [facility] Last Admin: 02/12/18 17:28 Dose: 325 mg Fluoxetine HCl (Prozac) 10 mg PO DAILY [facility] Gabapentin (Neurontin) 400 mg PO TID [facility] Last Admin: 02/13/18 09:09 Dose: 400 mg Glucagon (Glucagon Inj) 1 mg OTHER PRN PRN PRN Reason: for Hypoglycemia Protocol Insulin Aspart (Novolog Insulin Correctional Sugar Inj) 0 unit SQ Q6H [facility]; Protocol Last Admin: 02/13/18 05:15 Dose: 3 unit Insulin Human NPH (Novolin N Inj) 15 units SQ BID@0800,1700 [facility] Lactulose (Lactulose Liq) 30 ml PO Q4H [facility] Last Admin: 02/13/18 06:00 Dose: Not Given Lidocaine HCl (Lidoderm 5% Patch.12 Hr) 1 patch T-DERMAL DAILY [facility] Last Admin: 02/13/18 09:09 Dose: 1 patch Miscellaneous (Pill Splitter) 1 each OTHER UNSCH [facility] Miscellaneous Medication () 1 each OROPHARYNG 0000,0400,1200,1600 [facility] Last Admin: 02/13/18 03:29 Dose: Not Given Multivitamins/Folic Acid/Vitamin C (Flintstones) 1 tab CHEW DAILY [facility] Last Admin: 02/13/18 09:09 Dose: 1 tab Ondansetron HCl (Zofran Inj) 4 mg IV.PUSH Q6H PRN PRN Reason: nausea and vomiting Last Admin: 02/11/18 03:10 Dose: 4 mg Pantoprazole Sodium (Protonix Inj) 40 mg IV.PUSH BID [facility] Last Admin: 02/13/18 09:08 Dose: 40 mg Patch Removal (Remove Old Patch) 1 each T-DERMAL HS [facility] Last Admin: 02/12/18 20:49 Dose: 1 each Pravastatin Sodium (Pravachol) 40 mg PO QPM [facility] Last Admin: 02/12/18 18:16 Dose: 40 mg Propranolol HCl (Inderal) 40 mg PO BID [facility] Last Admin: 02/13/18 09:08 Dose: 40 mg Rifaximin (Xifaxan) 550 mg PO Q12HR [facility] Last Admin: 02/13/18 09:08 Dose: 550 mg Senna/Docusate Sodium (Joanne-Colace) 1 tab PO BID [facility] Last Admin: 02/13/18 09:10 Dose: Not Given Sennosides (Senokot) 17.2 mg PO Q12H PRN PRN Reason: Moderate Constipation Sodium Chloride (Ns Flush) 2 ml IV.FLUSH BID [facility] Last Admin: 02/13/18 09:10 Dose: 2 ml Sodium Chloride (Ns Flush) 2 ml IV.FLUSH PRN PRN PRN Reason: FLUSH AFTER USING IV ACCESS Last Admin: 02/10/18 04:24 Dose: 2 ml Valproate Sodium (Depakene Liq) 500 mg PO DAILY [facility] Last Admin: 02/13/18 09:08 Dose: 500 mg Allergies Allergy/AdvReac Type Severity Reaction Status Date / Time morphine Allergy Severe Shortness Verified 11/13/17 13:22 of Breath buspirone Allergy Intermediate Numbness Verified 11/13/17 13:22 Home Medications Medication Instructions Recorded Confirmed Type amlodipine 5 mg PO DAILY 11/13/17 01/15/18 History aspirin 81 mg PO DAILY 11/13/17 01/15/18 History atenolol 50 mg PO DAILY 11/13/17 01/15/18 History bumetanide 0.5 mg PO DAILY 11/13/17 01/15/18 History divalproex [Depakote] 500 mg PO DAILY 11/13/17 01/15/18 History donepezil 5 mg PO DAILY 11/13/17 01/15/18 History insulin NPH and regular human 1 sliding scale dose SUB-Q UD 11/13/17 01/15/18 History [Novolin 70/30 U-100 Insulin] lanthanum 500 mg PO DAILY 11/13/17 01/15/18 History lisinopril 40 mg PO DAILY 11/13/17 01/15/18 History lorazepam [Ativan] 0.5 mg PO BID 11/13/17 01/15/18 History mesalamine [Lialda] 1.2 g PO BID 11/13/17 01/15/18 History simvastatin 20 mg PO QPM 11/13/17 01/15/18 History tramadol 50 mg PO Q6H PRN 11/13/17 01/15/18 History vit B,R-SD-pekq-selen-vit D3-E 1 tab PO DAILY 11/13/17 01/15/18 History [RenaPlex-D] Exam Vital signs: Vital Signs 02/12/18 16:00 02/12/18 20:00 02/13/18 00:00 Temperature 98.0 F 100.2 F H 99.6 F Pulse Rate 75 104 H 85 Respiratory Rate 18 18 18 Blood Pressure 145/80 H 128/68 132/75 Pulse Oximetry 98 95 96 02/13/18 04:00 02/13/18 08:00 Temperature 98.3 F 98.4 F Pulse Rate 86 83 Respiratory Rate 18 18 Blood Pressure 162/80 H 136/80 Pulse Oximetry 97 94 L Intake & Output 02/12/18 02/13/18 02/13/18 18:59 06:59 18:59 Intake Total 720 / 720 Output Total 2170 / 2170 1500 / 1500 Balance -2170 / -2170 -780 / -780 Weight 92.8 kg Intake: Oral 720 / 720 Output: Urine 2170 / 2170 1500 / 1500 Other: Date of Last Bowel Movement 02/11/18 02/11/18 # Bowel Movements 2 0 Narrative: No tremors, no EPS, no withdrawal symptoms, no catatonia, no psychomotor retardation - Constitutional no acute distress - Routine HEENT Exam Head: Present: normocephalic Eye: Present: EOMI ENT: Present: mucous membranes moist Mental Status Examination Appearance: Appropriate Consciousness: Alert Orientation: x4 Motor Activity: Normal gait Speech: Unremarkable Language: Adequate Fund of Knowledge: Adequate Attention and Concentration: Adequate Memory: Unremarkable Mood: Sad Affect: Sad Thought Process & Associations: Intact Thought Content: Appropriate Hallucination Type: None Delusion Type: None Suicidal Ideation: No Suicidal Plan: No Suicidal Intention: No Homicidal Ideation: No Homicidal Plan: No Homicidal Intention: No Insight: Adequate Judgment: Adequate Assessment and Plan - Assessment (1) Major depress dis, severe Code(s): F32.2 - Major depressive disorder, single episode, severe without psychotic features Status: Acute (2) Depression Code(s): F32.9 - Major depressive disorder, single episode, unspecified Status : Acute (3) Depression Code(s): F32.9 - Major depressive disorder, single episode, unspecified Status : Acute - Plan Plan: Estimated LOS: [] days On psychiatric evaluation the patient presents with symptoms of depression in the context of the length of the hospitalization, he is acute medical conditions , consistent on increased anxiety, hopeless, helplessness, guiltiness. Suicidal and homicidal ideation, he denies visual and auditory hallucinations. The patient has psychiatric history of depression, anxiety, alcohol use disorder , multiple psychiatric admissions, suicidal attempts, he has been psychotropics in the past. He does not meet criteria for involuntary psychiatric admission at this moment. I will start Prozac 10 mg for his depression. Gabapentin can be increased to 600 mg 3 times daily for anxiety. Hydroxyzine 25 mg every 8 hours as needed anxiety. Extensive support, motivational psych education provided. Consult appreciated. Justification for Continued Inpatient Stay: No admission indicated. (3) Depression Qualifiers: Depression Type: major depressive disorder Major depression recurrence: recurrent Major depression episode severity: severe Psychotic features: without psychotic features
[2018-02-13] MEDS: Ferrous Sulfate 325 MG Tablet PO SCH ×2 (13:34→18:11)
[2018-02-13] MEDS: FLUoxetine 10 MG Capsule PO SCH (14:57)
[2018-02-13] MEDS: Enoxaparin Inj 40 MG/0.4 ML Syringe SQ SCH (15:45)
--- NOTE | 2018-02-13 15:53 | P.PNPL ---
Subjective Interval history: 52 YO male with GIB, cirrhosis Developed resp distress, agitation Extubated 01/27 Alert, awake, follows commands Denies sob Has diarrhoea Good appetite Physical Exam Vital signs: Vital Signs 02/12/18 16:00 02/12/18 20:00 02/13/18 00:00 Temperature 98.0 F 100.2 F H 99.6 F Pulse Rate 75 104 H 85 Respiratory Rate 18 Blood Pressure 145/80 H 128/68 132/75 Pulse Oximetry 98 95 96 02/13/18 04:00 02/13/18 08:00 02/13/18 12:00 Temperature 98.3 F 98.4 F 98.8 F Pulse Rate 86 83 69 Respiratory Rate Blood Pressure 162/80 H 136/80 116/68 Pulse Oximetry 97 94 L 96 Intake & Output 02/12/18 02/13/18 02/13/18 18:59 06:59 18:59 Intake Total 720 / 720 Output Total 2170 / 2170 1500 / 1500 Balance -2170 / -2170 -780 / -780 Weight 92.8 kg Intake: Oral 720 / 720 Output: Urine 2170 / 2170 1500 / 1500 Other: Date of Last Bowel Movement 02/11/18 02/11/18 # Bowel Movements 2 0 GENERAL: WBWN NAD SKIN: Warm and dry. HEAD: Normocephalic. EYES: No scleral icterus. No injection or drainage. NECK: Supple, trachea midline. No JVD or lymphadenopathy. CARDIOVASCULAR: Regular rate and rhythm without murmurs, gallops, or rubs. RESPIRATORY: Breath sounds equal bilaterally. No accessory muscle use. GASTROINTESTINAL: Abdomen soft, non-tender, nondistended. MUSCULOSKELETAL: No cyanosis, or edema. BACK: Nontender without obvious deformity. No CVA tenderness. - Urinary Catheter Management Straight Cath placed during this visit: yes, but has since been removed by the nurse Reason for continuing: Not indwelling catheter Insertion date: 01/26/18 Insertion time: 17:30 Removal date: 01/26/18 Removal time: 17:35 Condom Cath placed during this visit: no 400 Cath placed during this visit: no Assessment and Plan - Plan IMPRESSION: 1. Mild shortness of breath and cough, possibly underlying asthma. 2. Hypertension. 3. Diabetes mellitus. 4. Cirrhosis of the liver. 5. VDRF, s/p extubation 11/19 6. Encephalopathy. PLAN: Protonix 40 mg daily Monitor Ammonia level. Aerosol nebs SQ Lovenox Bumex 0.5 mg daily Stable on RA Neurontin 400 mg tid. Prozac added by Psych.
--- NOTE | 2018-02-13 17:14 | XR ---
EXAM DATE: 02/13/2018 5:04 PM EST AGE/SEX: 52 years / Male INDICATIONS: Left pelvic pain, unknown injury. CLINICAL DATA: This is the patient's initial encounter. Patient reports that signs and symptoms have been present for 1 day and indicates a pain score of 10/10. MEDICAL/SURGICAL HISTORY: None. None. [place] [facility] [place]. . FINDINGS: Examination of the pelvis demonstrates no evidence of fracture or dislocation. Bony mineralization i s normal. There is no widening of the sacroiliac joints. No foreign body is identified. CONCLUSION: Negative AP pelvis. Electronically signed by: Man Reed MD 02/13/2018 5:12 PM EST
--- NOTE | 2018-02-13 17:14 | XR ---
EXAM DATE: 02/13/2018 5:06 PM EST AGE/SEX: 52 years / Male INDICATIONS: Left knee pain, unknown injury. CLINICAL DATA: This is the patient's initial encounter. Patient reports that signs and symptoms have been present for 1 day and indicates a pain score of 10/10. MEDICAL/SURGICAL HISTORY: None. None. COMPARISON: No prior exams available for comparison. FINDINGS: Bony structures are intact and in normal alignment. Joints are intact without dislocation or signifi cant arthropathy. Osseous density is normal. Soft tissues are unremarkable. No radiopaque foreign bodies seen. CONCLUSION: Negative examination Electronically signed by: Kings Luo MD 02/13/2018 5:13 PM EST
--- NOTE | 2018-02-13 17:15 | XR ---
EXAM DATE: 02/13/2018 5:07 PM EST AGE/SEX: 52 years / Male INDICATIONS: Left proximal femur pain, unknown injury. CLINICAL DATA: This is the patient's initial encounter. Patient reports that signs and symptoms have been present for 1 day and indicates a pain score of 10/10. MEDICAL/SURGICAL HISTORY: None. None. COMPARISON: [facility] [place] LIMITED LEFT 03/12V, 02/13/2018. . FINDINGS: A fracture is not seen. The hip and knee joints appear aligned. On the frontal view there are 2 adjac ent 4 mm calcification seen at the proximal medial thigh region not seen on the other views. These co uld represent something on the patient. CONCLUSION: No acute bony abnormality is seen. Electronically signed by: Man Reed MD 02/13/2018 5:13 PM EST
[2018-02-14] MEDS: Oral Hygiene Kit OROPHARYNG SCH ×3 (04:25→15:01)
[2018-02-14] MEDS: Artificial Tears Opth Drops 15 ML Bottle EACH EYE SCH ×3 (05:52→21:04)
[2018-02-14] MEDS: Insulin NovoLOG Aspart Correctional Sugar Inj SQ SCH ×3 (05:52→17:42)
[2018-02-14] MEDS: Chlorhexidine 0.12% Oral Kit 15 ML UDC OROPHARYNG SCH ×2 (07:27→21:03)
[2018-02-14] MEDS: rifAXIMin 550 MG Tablet PO SCH ×2 (10:06→21:02)
[2018-02-14] MEDS: Gabapentin 400 MG Capsule PO SCH ×3 (10:06→17:38)
[2018-02-14] MEDS: Propranolol 40 MG Tablet PO SCH ×2 (10:07→21:02)
[2018-02-14] MEDS: Multivit/Folic Acid/Minerals Chewable Tablets CHEW SCH (10:07)
[2018-02-14] MEDS: Senna/Docusate Sodium 8.6/50 MG Tablet PO SCH ×2 (10:07→21:03)
[2018-02-14] MEDS: Pantoprazole Inj 40 MG Vial IV.PUSH SCH ×2 (10:09→21:08)
[2018-02-14] MEDS: Sodium Chloride 0.9% 2 ML Flush BID IV.FLUSH SCH ×2 (10:09→21:07)
[2018-02-14] MEDS: Lidocaine 5% Patch T-DERMAL SCH (10:09)
[2018-02-14] MEDS: FLUoxetine 10 MG Capsule PO SCH (10:19)
--- NOTE | 2018-02-14 10:54 | P.PNFP ---
Subjective Interval history: Patient seen and examined this morning. No acute events over night. He reports he continues to have difficulty moving his left leg. Notes it is too painful to move it in any direction. No pain in the hip or knee. States he can only straighten it out with physical therapy when they slowly massage his leg. No pain in his back, saddle anesthesia, urinary incontinence or changes in bowel habits. Denies N/V/F/C, abdominal pain, chest pain, SOB, lightheadedness, dizziness, SI/HI. <Florian Campbell - 02/14/18 11:01> Results - Labs Result diagrams: 02/17/18 06:50 02/17/18 06:50 <Antelmo Olvera - 02/17/18 15:11> Abnormal lab results 02/16/18 02/16/18 02/16/18 Range/Units 17:19 21:04 23:08 RBC (4.50-5.90) mil/mm3 Hgb (13.0-17.0) gm/dL Hct (39.0-51.0) % RDW (11.6-17.2) % Plt Count (150-450) th/mm3 [place] % (Auto) (0.0-8.0) % Eos % (Auto) (0.0-4.0) % Lymph # (Auto) (1.0-4.8) th/mm3 [place] # (Auto) (0.0-0.9) th/mm3 POC Glucose 172 H 255 H 230 H (68-110) mg/dl Random Glucose (74-106) mg/dL Calcium (8.5-10.1) mg/dL Ammonia (11-32) mcmol/L Vancomycin Trough (5.0-10.0) mcg/mL 02/17/18 02/17/18 02/17/18 Range/Units 05:25 06:50 06:50 RBC 2.91 L (4.50-5.90) mil/mm3 Hgb 7.9 L (13.0-17.0) gm/dL Hct 24.7 L (39.0-51.0) % RDW 23.6 H (11.6-17.2) % Plt Count 115 L (150-450) th/mm3 [place] % (Auto) 17.4 H (0.0-8.0) % Eos % (Auto) 6.7 H (0.0-4.0) % Lymph # (Auto) 0.8 L (1.0-4.8) th/mm3 [place] # (Auto) 1.1 H (0.0-0.9) th/mm3 POC Glucose 164 H (68-110) mg/dl Random Glucose (74-106) mg/dL Calcium (8.5-10.1) mg/dL Ammonia 38 H (11-32) mcmol/L Vancomycin Trough (5.0-10.0) mcg/mL 02/17/18 02/17/18 Range/Units 06:50 11:56 RBC (4.50-5.90) mil/mm3 Hgb (13.0-17.0) gm/dL Hct (39.0-51.0) % RDW (11.6-17.2) % Plt Count (150-450) th/mm3 [place] % (Auto) (0.0-8.0) % Eos % (Auto) (0.0-4.0) % Lymph # (Auto) (1.0-4.8) th/mm3 [place] # (Auto) (0.0-0.9) th/mm3 POC Glucose 293 H (68-110) mg/dl Random Glucose 130 H (74-106) mg/dL Calcium 7.8 L (8.5-10.1) mg/dL Ammonia (11-32) mcmol/L Vancomycin Trough 15.8 H (5.0-10.0) mcg/mL Short CBC 02/17/18 Range/Units 06:50 WBC 6.4 (4.0-11.0) th/mm3 Hgb 7.9 L (13.0-17.0) gm/dL Hct 24.7 L (39.0-51.0) % Plt Count 115 L (150-450) th/mm3 BMP 02/17/18 06:50 Sodium 139 Potassium 3.5 Chloride 100 Carbon Dioxide 30.3 BUN 9 Creatinine 0.88 Calcium 7.8 L <Antelmo Olvera - 02/17/18 15:11> Abnormal lab results 02/13/18 02/13/18 Range/Units 12:49 17:12 POC Glucose 225 H 181 H (68-110) mg/dl <Florian Campbell - 02/14/18 10:54> - Imaging Impressions Femur X-Ray 02/13/18 00:00 CONCLUSION: No acute bony abnormality is seen. Knee X-Ray 02/13/18 00:00 CONCLUSION: Negative examination Pelvis X-Ray 02/13/18 00:00 CONCLUSION: Negative AP pelvis. <Florian Campbell - 02/14/18 10:54> Physical Exam Vital signs: Vital Signs 02/16/18 16:00 02/16/18 20:00 02/17/18 00:00 Temperature 98.6 F 97.1 F L 97.2 F L Pulse Rate 81 87 91 H Respiratory Rate 18 18 18 Blood Pressure 123/70 126/71 Pulse Oximetry 98 97 94 L 02/17/18 04:00 02/17/18 08:00 02/17/18 12:00 Temperature 97.4 F L 99 F 99.6 F Pulse Rate 93 H 87 84 Respiratory Rate 17 20 20 Blood Pressure 131/76 123/62 118/71 Pulse Oximetry 93 L 97 97 Intake & Output 02/16/18 02/17/18 02/17/18 18:59 06:59 18:59 Intake Total 617 / 617 2617 / 2617 50 / 50 Output Total 400 / 400 Balance 617 / 617 2217 / 2217 50 / 50 Weight 94 kg Intake: IV 617 / 617 617 / 617 50 / 50 Zosyn 3.375 GM Premix 50 ML @ 100 / 100 100 / 100 50 / 50 100 mls/hr IV.SIG Q6H MANUEL Rx#: [id number] Vancomycin Inj 1,700 MG In NS 517 / 517 517 / 517 Inj 500 ML @ 250 mls/hr IV.SIG Q12H MANUEL Rx#:[id number] Oral 1999 Output: Urine 400 / 400 Other: # Urine Diapers 4 Date of Last Bowel Movement 02/16/18 02/17/18 # Bowel Movements 3 # Incontinent Bowel Movements 2 <Antelmo Olvera - 02/17/18 15:11> Vital Signs 02/13/18 12:00 02/13/18 16:00 02/13/18 20:00 Temperature 98.8 F 98.1 F 98.9 F Pulse Rate 69 87 89 Respiratory Rate 19 18 18 Blood Pressure 116/68 118/68 122/64 Pulse Oximetry 96 95 96 02/14/18 00:00 02/14/18 04:00 02/14/18 08:00 Temperature 98.1 F 98.2 F 97.2 F L Pulse Rate 83 80 77 Respiratory Rate 18 18 20 Blood Pressure 124/74 113/59 L 146/66 H Pulse Oximetry 97 95 94 L Intake & Output 02/13/18 02/14/18 02/14/18 18:59 06:59 18:59 Intake Total 560 / 560 240 / 240 Output Total 2099 / 2100 800 / 800 Balance -1540 / -1540 -560 / -560 Weight 95.9 kg Intake: Oral 560 / 560 240 / 240 Output: Urine 2099 800 / 800 Other: Date of Last Bowel Movement 02/11/18 # Bowel Movements 1 0 <Florian Campbell - 02/14/18 10:54> Narrative: General: Well-developed, alert, and in no acute distress. Neurologic: Oriented x3, depressed affect HEENT: Atraumatic, moist mucous membranes Neck: Supple, trachea midline Cardiac: Regular rate and rhythm without murmurs Pulmonary: Non-labored breathing. Lungs clear to auscultation bilaterally with good air movement Abdomen: Normal bowel sounds, soft and non-tender without rebound or guarding Extremities: No edema, 2+ pedal pulses, capillary refill less than 2 seconds. 5/ 5 bl ankle strength. Does not attempt to move left leg at the knee secondary to pain. Muscle flicker when urged to move leg. Mild pain to palpation on left quadriceps. No obvious deformity to left leg, hip, knee. No tenderness in knee or hip. Refuses passive extension due to pain in quadriceps when extended. <Florian Campbell - 02/14/18 11:01> - Urinary Catheter Management 400 Cath placed during this visit: no <Antelmo Olvera - 02/17/18 15:11> no <Florian Campbell - 02/14/18 13:39> Condom Cath placed during this visit: no <Antelmo Olvera - 02/17/18 15:11> no <Florian Campbell - 02/14/18 13:39> Straight Cath placed during this visit: no <Antelmo Olvera - 02/17/18 15:11> yes, but has since been removed by the nurse <Florian Campbell - 02/14/18 13:39> Reason for continuing: Not indwelling catheter <Florian Campbell - 02/14/18 10 :54> Insertion date: 01/26/18 <Florian Campbell - 02/14/18 10:54> Insertion time: 17:30 <Florian Campbell - 02/14/18 10:54> Removal date: 01/26/18 <Florian Campbell - 02/14/18 10:54> Removal time: 17:35 <Florian Campbell - 02/14/18 10:54> Assessment and Plan - Assessment (1) Esophageal varices in cirrhosis Code(s): K74.60 - Unspecified cirrhosis of liver; I85.10 - Secondary esophageal varices without bleeding Status: Chronic Plan: see below (2) Hypertension Code(s): I10 - Essential (primary) hypertension Status: Chronic Plan: see below (3) Alcohol abuse Code(s): F10.10 - Alcohol abuse, uncomplicated Status: Chronic Plan: see below (4) Depression with anxiety Code(s): F41.8 - Other specified anxiety disorders Status: Chronic Plan: see below (5) Cough Code(s): R05 - Cough Status: Resolved Plan: see below (6) Diabetes Code(s): E11.9 - Type 2 diabetes mellitus without complications Status: Chronic Plan: See below (7) Deep vein thrombosis (DVT) of brachial vein Code(s): I82.629 - Acute embolism and thrombosis of deep veins of unspecified upper extremity Status: Acute Plan: See below (8) Chest pain Code(s): R07.9 - Chest pain, unspecified Status: Resolved Plan: see below (9) Alcohol withdrawal Code(s): F10.239 - Alcohol dependence with withdrawal, unspecified Status: Resolved Plan: see below (10) Physical deconditioning Code(s): R53.81 - Other malaise Status: Acute <Florian Campbell - 02/14/18 13:33> (1) Iliopsoas abscess on left Code(s): K68.12 - Psoas muscle abscess Status: Acute (2) Sepsis Code(s): A41.9 - Sepsis, unspecified organism Status: Acute (3) Esophageal varices in cirrhosis Code(s): K74.60 - Unspecified cirrhosis of liver; I85.10 - Secondary esophageal varices without bleeding Status: Chronic (4) Hypertension Code(s): I10 - Essential (primary) hypertension Status: Chronic (5) Alcohol abuse Code(s): F10.10 - Alcohol abuse, uncomplicated Status: Chronic (6) Depression with anxiety Code(s): F41.8 - Other specified anxiety disorders Status: Chronic (7) Cough Code(s): R05 - Cough Status: Resolved (8) Diabetes Code(s): E11.9 - Type 2 diabetes mellitus without complications Status: Chronic (9) Deep vein thrombosis (DVT) of brachial vein Code(s): I82.629 - Acute embolism and thrombosis of deep veins of unspecified upper extremity Status: Acute (10) Chest pain Code(s): R07.9 - Chest pain, unspecified Status: Resolved (11) Alcohol withdrawal Code(s): F10.239 - Alcohol dependence with withdrawal, unspecified Status: Resolved (12) Physical deconditioning Code(s): R53.81 - Other malaise Status: Acute <Antelmo Olvera - 02/17/18 15:11> - Assessment and Plan Patient is a 52-year-old male with medical history significant for alcoholism, cirrhosis, and esophageal varices who was admitted with esophageal varices, status post banding x4. He has had altered mental status for most of his hospitalization. He was intubated, and then extubated on 01/27. Repeat EGD on 02/05 showed no active bleed. He has significant physical deconditioning from his hospitalization. He is now working with physical therapy 7 days a week. Their recommendation for his deconditioning is that he go home with home health or to a halfway facility for rehab. His insurance is not wanting to cover either of these options at this time. Physical deconditioning: Physical therapy recommends a wheeled walker at home with home health PT, however he fell yesterday attempting to get to the bedside commode. Yesterday he did not work with physical therapy due to his mood and lack of motivation. We wish for him to have physical therapy 7 days a week. Complains of inability to move left leg on 02/13/18. Unable to move left leg. -x-ray pelvis, left femur, left knee negative -Follow-up left leg MRI -Continue physical therapy Depression and anxiety: He does have a history of depression and has been on psychoactive medication in the past. He says that he is on gabapentin which helps with his depression and anxiety, and also Depakote. He is unsure what other medications he has been on. He reports that he is more depressed because he is stuck in the hospital with no one to talk to. He wishes to be evaluated by a psychiatrist. -Psychiatry consulted -Prozac 10 daily -Gabapentin 400 mg 3 times daily started, can increase to 600 -Home medication Depakote continued Esophageal varices in the context of cirrhosis: He is status post banding x4 at the beginning of this hospitalization. H&H was 8.1 today. EGD repeated without active bleeds 02/05, gastroenterology has signed off. His altered mental status is likely secondary to his liver disease. We are unsure of his baseline, however he is significantly less confused now. He is now oriented x3. He has been intermittently compliant with his lactulose. -Continue lactulose 4 times a day and Xifaxan 550 twice daily -Continue IV Protonix BID -Propranolol 40mg BID Pressure ulcers: Stage I sacral ulcer and stage I pressure ulcer of the right heel -Wound care nurse was consulted, please see their note for current wound care recommendations Hypertension: Amlodipine discontinued due to borderline hypotension, BP has been stable since -Bumex 0.5 mg daily -Propranolol as above Hyperlipidemia: -Continue home medication pravastatin 40 mg p.o. nightly Hypokalemia: -He has had some mild hypokalemia throughout his hospitalization. -Monitor and correct as needed Type 2 diabetes mellitus: He is continued to have blood sugars in the 100s and low 200s -Continue low dose SS insulin -Continue Levemir 10 units daily DVT of brachial vein (right): Last ultrasound on 01/28 was negative for DVT, DVT last seen the ultrasound on 01/19. -Lovenox 40mg daily Alcohol withdrawal: resolved He has a significant history of alcohol abuse and had been receiving treatment at [facility]. He had not been sober at the time of admission. He was transferred to the ICU secondary to withdraw. This has now resolved and he is not currently on any benzodiazepines. Fluids: Adequate p.o. intake Electrolytes: monitor and replete as needed. Nutrition: Regular diet GI prophylaxis: IV Protonix VTE prophylaxis: Lovenox 40mg q24 Dispo: Awaiting SNF placement <Florian Campbell - 02/14/18 13:39> - Attending Attestation See the residents documentation for details. I saw and evaluated the patient regarding the [place] portions of this evaluation and agree with the residents findings and plans as written. Parts of this note were created using [employer] voice recognition software program. While efforts were made to correct any mistakes made by this software, some mistakes, errors, and omissions may remain in the final note that were not caught when the note was originally created. Plan of care was discussed and agreed upon with the patient as specifically documented in the above note. An opportunity to ask questions with explanation was provided. Patient voiced understanding on all information reviewed and discussed. Has had similar issues moving his leg in the past, states he was in [facility] at that time. <Antelmo Olvera - 02/17/18 15:11>
[2018-02-14] MEDS: Ferrous Sulfate 325 MG Tablet PO SCH ×2 (12:17→17:38)
[2018-02-14] MEDS: Enoxaparin Inj 40 MG/0.4 ML Syringe SQ SCH (15:00)
--- NOTE | 2018-02-14 15:08 | MR ---
EXAM DATE: 02/14/2018 2:46 PM EST AGE/SEX: 52 years / Male INDICATIONS: . Left hip pain. CLINICAL DATA: This is the patient's initial encounter. Patient reports that signs and symptoms have been present for 4 - 6 days and indicates a pain score of 6/10. MEDICAL/SURGICAL HISTORY: Hypertension. Diabetes mellitus type II. . Throat surgery. COMPARISON: [facility] [place], CT ABDOMEN & PELVIS W CONTRAST, 01/15/2018. . TECHNIQUE: Multiplanar, multisequence MRI examination was performed without contrast. FINDINGS: Study is abnormal. There is abnormal soft tissue induration in the left iliopsoas as extending over t he so as down the hip. The superior extent of this is incompletely evaluated. There is induration in the anterior adductors as well. A small amount of fluid around the hip. There is no abnormal marrow suggest osteomyelitis. CONCLUSION: 1. Probable left iliopsoas abscess. CT scan and pelvis with IV contrast is suggested. 2. Trace joint effusion in the left hip Electronically signed by: Juanito Mcdaniel MD 02/14/2018 3:06 PM EST
[2018-02-14] MEDS ORDERED: Vancomycin Consult Pharmacy OTHER PRN (16:50)
[2018-02-14] MEDS: Piperacil/Tazo 3.375 GM Premix 50 ML IV.SIG SCH (17:40)
[2018-02-14] MEDS: Vancomycin Inj 1,700 MG in Sodium Chlor 0.9% Inj 500 ML IV.SIG SCH (18:21)
--- NOTE | 2018-02-14 19:21 | P.PNPL ---
Subjective Interval history: 52 YO male with GIB, cirrhosis Developed resp distress, agitation Extubated 01/27 Alert, awake, follows commands Denies sob Good appetite No new complaint Physical Exam Vital signs: Vital Signs 02/13/18 20:00 02/14/18 00:00 02/14/18 04:00 Temperature 98.9 F 98.1 F 98.2 F Pulse Rate 89 83 80 Respiratory Rate 18 18 18 Blood Pressure 122/64 124/74 113/59 L Pulse Oximetry 96 97 95 02/14/18 08:00 02/14/18 12:00 02/14/18 16:00 Temperature 97.2 F L 97.0 F L 97.0 F L Pulse Rate 76 74 73 Respiratory Rate 20 20 20 Blood Pressure 146/66 H 134/73 142/67 H Pulse Oximetry 94 L 97 94 L Intake & Output 02/14/18 02/14/18 02/15/18 06:59 18:59 06:59 Intake Total 240 / 240 770 / 770 Output Total 800 / 800 1000 / 1000 Balance -560 / -560 -230 / -230 Weight 95.9 kg Intake: IV 50 / 50 Zosyn 3.375 GM Premix 50 ML @ 50 / 50 100 mls/hr IV.SIG Q6H MANUEL Rx#: [id number] Oral 240 / 240 720 / 720 Output: Urine 800 / 800 1000 / 1000 Other: # Bowel Movements 0 GENERAL: WBWN NAD SKIN: Warm and dry. HEAD: Normocephalic. EYES: No scleral icterus. No injection or drainage. NECK: Supple, trachea midline. No JVD or lymphadenopathy. CARDIOVASCULAR: Regular rate and rhythm without murmurs, gallops, or rubs. RESPIRATORY: Breath sounds equal bilaterally. No accessory muscle use. GASTROINTESTINAL: Abdomen soft, non-tender, nondistended. MUSCULOSKELETAL: No cyanosis, or edema. BACK: Nontender without obvious deformity. No CVA tenderness. - Urinary Catheter Management Straight Cath placed during this visit: yes, but has since been removed by the nurse Reason for continuing: Not indwelling catheter Insertion date: 01/26/18 Insertion time: 17:30 Removal date: 01/26/18 Removal time: 17:35 Condom Cath placed during this visit: no 400 Cath placed during this visit: no Assessment and Plan - Plan IMPRESSION: 1. Mild shortness of breath and cough, possibly underlying asthma. 2. Hypertension. 3. Diabetes mellitus. 4. Cirrhosis of the liver. 5. VDRF, s/p extubation 01/27 6. Encephalopathy. PLAN: Protonix 40 mg daily Monitor Ammonia level. Aerosol nebs SQ Lovenox Bumex 0.5 mg daily Stable on RA Neurontin 400 mg tid.
--- NOTE | 2018-02-14 22:33 | CT ---
EXAM DATE: 02/14/2018 10:24 PM EST AGE/SEX: 52 years / Male INDICATIONS: Probable iliopsoas abscess on MRI CLINICAL DATA: This is the patient's initial encounter. Patient reports that signs and symptoms have been present for 2 days and indicates a pain score of 0/10. MEDICAL/SURGICAL HISTORY: Diabetes. Gastrointestinal bleed. Hypertension. Esophageal varices None. ORAL CONTRAST: No oral contrast ingested. RADIATION DOSE: 16.44 CTDI (mGy) COMPARISON: [facility] – [place], CT ABDOMEN & PELVIS W CONTRAST, 01/15/2018. [facility] [place], MR HIP LEFT W/O CONTRAST, 02/14/2018. . TECHNIQUE: Multiple contiguous axial images were obtained through the abdomen and pelvis following b olus infusion of 96ML ml Omnipaque 350 (iohexol) nonionic water-soluble contrast as a single exam d ose. No oral contrast ingested. Using automated exposure control and adjustment of the mA and/or kV according to patient size, radiation dose was kept as low as reasonably achievable to obtain optimal diagnostic quality images. DICOM format image data is available electronically for review and compar germain. FINDINGS: The left iliopsoas muscle is markedly enlarged relative to the left. Attenuation is heterog eneous but overall increased, suggesting acute or subacute blood within the muscle. I don't see a rim -enhancing fluid collection. There is mesenteric edema but no ascites. Cirrhotic liver with portosystemic collaterals including gastroesophageal varices again noted. Spleen is approximately 15 cm craniocaudal. Patent main portal vein. Pancreas, adrenal glands and kidneys are within normal limits. Trace atelectasis of the visualized lung bases. No acute bony abnormalities are demonstrated. CONCLUSION: 1. Heterogeneous but mostly increased attenuation swelling of left iliopsoas and is more typical of an acute or subacute iliopsoas hematoma rather than abscess. This may be posttraumatic but is more li thien related to anticoagulation and/or chronic liver disease related thrombocytopenia. 2. Cirrhosis with splenomegaly and portosystemic collaterals. Patent portal vein. 3. Slight mesenteric edema but no henry ascites. Electronically signed by: Man Jang MD 02/14/2018 10:32 PM EST
[2018-02-15] MEDS: Oral Hygiene Kit OROPHARYNG SCH ×4 (01:14→16:04)
[2018-02-15] MEDS: Insulin NovoLOG Aspart Correctional Sugar Inj SQ SCH ×5 (01:29→23:51)
[2018-02-15] MEDS: Piperacil/Tazo 3.375 GM Premix 50 ML IV.SIG SCH ×5 (01:33→22:54)
[2018-02-15] MEDS: Vancomycin Inj 1,700 MG in Sodium Chlor 0.9% Inj 500 ML IV.SIG SCH ×2 (05:20→17:31)
[2018-02-15] MEDS: Artificial Tears Opth Drops 15 ML Bottle EACH EYE SCH ×3 (06:18→21:07)
[2018-02-15] MEDS: Chlorhexidine 0.12% Oral Kit 15 ML UDC OROPHARYNG SCH ×2 (09:14→21:06)
[2018-02-15] MEDS: Gabapentin 400 MG Capsule PO SCH ×3 (09:14→17:31)
[2018-02-15] MEDS: rifAXIMin 550 MG Tablet PO SCH ×2 (09:14→21:05)
[2018-02-15] MEDS: Propranolol 40 MG Tablet PO SCH ×2 (09:15→21:06)
[2018-02-15] MEDS: FLUoxetine 10 MG Capsule PO SCH (09:16)
[2018-02-15] MEDS: Multivit/Folic Acid/Minerals Chewable Tablets CHEW SCH (09:16)
[2018-02-15] MEDS: Senna/Docusate Sodium 8.6/50 MG Tablet PO SCH ×2 (09:16→21:07)
[2018-02-15] MEDS: Lidocaine 5% Patch T-DERMAL SCH (09:17)
[2018-02-15] MEDS: Sodium Chloride 0.9% 2 ML Flush BID IV.FLUSH SCH ×2 (09:17→21:06)
[2018-02-15] MEDS: Pantoprazole Inj 40 MG Vial IV.PUSH SCH ×2 (09:17→21:06)
[2018-02-15 10:22] LABS: Baso # (Auto) 0.1 th/mm3 (0.0-0.2); Baso % (Auto) 0.8 % (0.0-2.0); Eos # (Auto) 0.3 th/mm3 (0.0-0.4); Hematocrit 24.9 % (39.0-51.0); Hemoglobin 8.3 gm/dL (13.0-17.0); Lymph # (Auto) 0.9 th/mm3 (1.0-4.8); Mean Corpuscular HGB Conc 33.5 % (32.0-36.0); Mean Corpuscular Hemoglobin 28.2 pg (27.0-34.0); Mean Corpuscular Volume 84.3 fL (80.0-100.0); Mean Platelet Volume 7.8 fL (7.0-11.0); Mono # (Auto) 1.5 th/mm3 (0.0-0.9); Neut # (Auto) 5.6 th/mm3 (1.8-7.7); Neut % (Auto) 66.2 % (16.0-70.0); Platelet Count 149 th/mm3 (150-450); Red Blood Count 2.95 mil/mm3 (4.50-5.90); Red Cell Distribution Width 23.8 % (11.6-17.2); White Blood Count 8.5 th/mm3 (4.0-11.0)
[2018-02-15 10:46] LABS: Albumin 2.6 g/dL (3.4-5.0); Anion Gap 6 meq/L (5-15); Aspartate Aminotransferase 76 U/L (15-37); Blood Urea Nitrogen 7 mg/dL (7-18); Calcium 8.4 mg/dL (8.5-10.1); Chloride 100 meq/L (98-107); Glomerular Filtration Rate Greater Than 89 mL/min (>89); Glucose,Random 172 mg/dL (74-106); Potassium 3.5 meq/L (3.5-5.1); Sodium 138 meq/L (136-145)
[2018-02-15 10:47] LABS: Alanine Aminotransferase 46 U/L (12-78)
[2018-02-15 10:49] LABS: Alkaline Phosphatase 269 U/L (45-117)
[2018-02-15] MEDS: Ferrous Sulfate 325 MG Tablet PO SCH ×2 (12:03→16:03)
--- NOTE | 2018-02-15 12:30 | P.PNFP ---
Subjective Interval history: No acute events overnight. Overnight he lost his IV and was unable to get doses of vancomycin and Zosyn. He has no new complaints this morning. He does complain of continued pain in the left hip. He is better able to stretch out his leg today. He has had has had subjective fever, and denies lightheadedness , dizziness, nausea, emesis, chest pain, SOB, abdominal pain, dark or red in the stool, and dysuria. He is depressed today and scared because of his infection. He denies SI. He wishes to speak with a rn case manager hospice. <Sin Victoria - 02/15/18 12:30> Results - Labs Result diagrams: 02/17/18 06:50 02/17/18 06:50 <Antelmo Olvera - 02/17/18 15:20> Abnormal lab results 02/16/18 02/16/18 02/16/18 Range/Units 17:19 21:04 23:08 RBC (4.50-5.90) mil/mm3 Hgb (13.0-17.0) gm/dL Hct (39.0-51.0) % RDW (11.6-17.2) % Plt Count (150-450) th/mm3 Whitley % (Auto) (0.0-8.0) % Eos % (Auto) (0.0-4.0) % Lymph # (Auto) (1.0-4.8) th/mm3 Whitley # (Auto) (0.0-0.9) th/mm3 POC Glucose 172 H 255 H 230 H (68-110) mg/dl Random Glucose (74-106) mg/dL Calcium (8.5-10.1) mg/dL Ammonia (11-32) mcmol/L Vancomycin Trough (5.0-10.0) mcg/mL 02/17/18 02/17/18 02/17/18 Range/Units 05:25 06:50 06:50 RBC 2.91 L (4.50-5.90) mil/mm3 Hgb 7.9 L (13.0-17.0) gm/dL Hct 24.7 L (39.0-51.0) % RDW 23.6 H (11.6-17.2) % Plt Count 115 L (150-450) th/mm3 Whitley % (Auto) 17.4 H (0.0-8.0) % Eos % (Auto) 6.7 H (0.0-4.0) % Lymph # (Auto) 0.8 L (1.0-4.8) th/mm3 Whitley # (Auto) 1.1 H (0.0-0.9) th/mm3 POC Glucose 164 H (68-110) mg/dl Random Glucose (74-106) mg/dL Calcium (8.5-10.1) mg/dL Ammonia 38 H (11-32) mcmol/L Vancomycin Trough (5.0-10.0) mcg/mL 02/17/18 02/17/18 Range/Units 06:50 11:56 RBC (4.50-5.90) mil/mm3 Hgb (13.0-17.0) gm/dL Hct (39.0-51.0) % RDW (11.6-17.2) % Plt Count (150-450) th/mm3 Whitley % (Auto) (0.0-8.0) % Eos % (Auto) (0.0-4.0) % Lymph # (Auto) (1.0-4.8) th/mm3 Whitley # (Auto) (0.0-0.9) th/mm3 POC Glucose 293 H (68-110) mg/dl Random Glucose 130 H (74-106) mg/dL Calcium 7.8 L (8.5-10.1) mg/dL Ammonia (11-32) mcmol/L Vancomycin Trough 15.8 H (5.0-10.0) mcg/mL Short CBC 02/17/18 Range/Units 06:50 WBC 6.4 (4.0-11.0) th/mm3 Hgb 7.9 L (13.0-17.0) gm/dL Hct 24.7 L (39.0-51.0) % Plt Count 115 L (150-450) th/mm3 BMP 02/17/18 06:50 Sodium 139 Potassium 3.5 Chloride 100 Carbon Dioxide 30.3 BUN 9 Creatinine 0.88 Calcium 7.8 L <Antelmo Olvera - 02/17/18 15:20> Abnormal lab results 02/14/18 02/14/18 02/14/18 Range/Units 12:19 17:42 19:34 RBC (4.50-5.90) mil/mm3 Hgb (13.0-17.0) gm/dL Hct (39.0-51.0) % RDW (11.6-17.2) % Plt Count (150-450) th/mm3 Whitley % (Auto) (0.0-8.0) % Lymph # (Auto) (1.0-4.8) th/mm3 Whitley # (Auto) (0.0-0.9) th/mm3 POC Glucose 296 H 206 H 254 H (68-110) mg/dl Random Glucose (74-106) mg/dL Calcium (8.5-10.1) mg/dL Total Bilirubin (0.2-1.0) mg/dL AST (15-37) U/L Alkaline Phosphatase (45-117) U/L Albumin (3.4-5.0) g/dL 02/15/18 02/15/18 02/15/18 Range/Units 01:22 06:11 07:56 RBC (4.50-5.90) mil/mm3 Hgb (13.0-17.0) gm/dL Hct (39.0-51.0) % RDW (11.6-17.2) % Plt Count (150-450) th/mm3 Whitley % (Auto) (0.0-8.0) % Lymph # (Auto) (1.0-4.8) th/mm3 Whitley # (Auto) (0.0-0.9) th/mm3 POC Glucose 248 H 182 H 165 H (68-110) mg/dl Random Glucose (74-106) mg/dL Calcium (8.5-10.1) mg/dL Total Bilirubin (0.2-1.0) mg/dL AST (15-37) U/L Alkaline Phosphatase (45-117) U/L Albumin (3.4-5.0) g/dL 02/15/18 02/15/18 Range/Units 09:38 09:38 RBC 2.95 L (4.50-5.90) mil/mm3 Hgb 8.3 L (13.0-17.0) gm/dL Hct 24.9 L (39.0-51.0) % RDW 23.8 H (11.6-17.2) % Plt Count 149 L (150-450) th/mm3 Whitley % (Auto) 18.0 H (0.0-8.0) % Lymph # (Auto) 0.9 L (1.0-4.8) th/mm3 Whitley # (Auto) 1.5 H (0.0-0.9) th/mm3 POC Glucose (68-110) mg/dl Random Glucose 172 H (74-106) mg/dL Calcium 8.4 L (8.5-10.1) mg/dL Total Bilirubin 1.6 H (0.2-1.0) mg/dL AST 76 H (15-37) U/L Alkaline Phosphatase 269 H (45-117) U/L Albumin 2.6 L (3.4-5.0) g/dL Short CBC 02/15/18 Range/Units 09:38 WBC 8.5 (4.0-11.0) th/mm3 Hgb 8.3 L (13.0-17.0) gm/dL Hct 24.9 L (39.0-51.0) % Plt Count 149 L (150-450) th/mm3 BMP 02/15/18 09:38 Sodium 138 Potassium 3.5 Chloride 100 Carbon Dioxide 32.0 BUN 7 Creatinine 0.78 Calcium 8.4 L Liver Function 02/15/18 Range/Units 09:38 Total Bilirubin 1.6 H (0.2-1.0) mg/dL AST 76 H (15-37) U/L ALT 46 (12-78) U/L Alkaline Phosphatase 269 H (45-117) U/L Albumin 2.6 L (3.4-5.0) g/dL <Sin Victoria - 02/15/18 12:30> - Imaging Impressions Abdomen/Pelvis CT 02/14/18 00:00 CONCLUSION: 1. Heterogeneous but mostly increased attenuation swelling of left iliopsoas and is more typical of an acute or subacute iliopsoas hematoma rather than abscess. This may be posttraumatic but is more likely related to anticoagulation and/or chronic liver disease related thrombocytopenia. 2. Cirrhosis with splenomegaly and portosystemic collaterals. Patent portal vein. 3. Slight mesenteric edema but no henry ascites. Hip MRI 02/14/18 00:00 CONCLUSION: 1. Probable left iliopsoas abscess. CT scan and pelvis with IV contrast is suggested. 2. Trace joint effusion in the left hip <Sin Victoria - 02/15/18 12:30> Physical Exam Vital signs: Vital Signs 02/16/18 16:00 02/16/18 20:00 02/17/18 00:00 Temperature 98.6 F 97.1 F L 97.2 F L Pulse Rate 81 87 91 H Respiratory Rate 18 18 18 Blood Pressure 123/70 126/71 Pulse Oximetry 98 97 94 L 02/17/18 04:00 02/17/18 08:00 02/17/18 12:00 Temperature 97.4 F L 99 F 99.6 F Pulse Rate 93 H 87 84 Respiratory Rate 17 20 20 Blood Pressure 131/76 123/62 118/71 Pulse Oximetry 93 L 97 97 Intake & Output 02/16/18 02/17/18 02/17/18 18:59 06:59 18:59 Intake Total 617 / 617 2617 / 2617 50 / 50 Output Total 400 / 400 Balance 617 / 617 2217 / 2217 50 / 50 Weight 94 kg Intake: IV 617 / 617 617 / 617 50 / 50 Zosyn 3.375 GM Premix 50 ML @ 100 / 100 100 / 100 50 / 50 100 mls/hr IV.SIG Q6H MANUEL Rx#: [id number] Vancomycin Inj 1,700 MG In NS 517 / 517 517 / 517 Inj 500 ML @ 250 mls/hr IV.SIG Q12H MANUEL Rx#:[id number] Oral 1999 Output: Urine 400 / 400 Other: # Urine Diapers 4 Date of Last Bowel Movement 02/16/18 02/17/18 # Bowel Movements 3 # Incontinent Bowel Movements 2 <Antelmo Olvera - 02/17/18 15:20> Vital Signs 02/14/18 16:00 02/14/18 20:00 02/15/18 00:00 Temperature 97.0 F L 98.1 F 100.8 F H Pulse Rate 73 90 89 Respiratory Rate 20 18 18 Blood Pressure 142/67 H 109/56 L 134/67 Pulse Oximetry 94 L 96 96 02/15/18 04:00 02/15/18 08:00 02/15/18 08:40 Temperature 98.7 F 98.7 F Pulse Rate 94 H 92 H 98 H Respiratory Rate 18 17 Blood Pressure 140/76 145/79 H Pulse Oximetry 94 L 97 Intake & Output 02/14/18 02/15/18 02/15/18 18:59 06:59 18:59 Intake Total 770 / 770 1717 / 1717 Output Total 1000 / 1000 1450 / 1450 Balance -230 / -230 267 / 267 Weight 95.2 kg Intake: IV 50 / 50 517 / 517 Zosyn 3.375 GM Premix 50 ML @ 50 / 50 100 mls/hr IV.SIG Q6H MANUEL Rx#: [id number] Vancomycin Inj 1,700 MG In NS 517 / 517 Inj 500 ML @ 250 mls/hr IV.SIG Q12H MANUEL Rx#:[id number] Oral 720 / 720 1200 / 1200 Output: Urine 1000 / 1000 1450 / 1450 Other: Date of Last Bowel Movement 02/14/18 02/14/18 # Bowel Movements 2 <Sin Victoria - 02/15/18 12:30> Narrative: General: Well-developed, alert, and in no acute distress. Neurologic: Oriented x3, depressed affect HEENT: Atraumatic, moist mucous membranes Neck: Supple, trachea midline Cardiac: Regular rate and rhythm without murmurs Pulmonary: Non-labored breathing. Lungs clear to auscultation bilaterally with good air movement Abdomen: Normal bowel sounds, soft and non-tender without rebound or guarding Extremities: No edema, 2+ pedal pulses, capillary refill less than 2 seconds. 5/ 5 bl ankle strength. Improved ROM of the hip today, however still not full extension. He does have pain over the left greater trochanter left, and pain with logroll of the left leg. <Sin Victoria - 02/15/18 12:30> - Urinary Catheter Management 400 Cath placed during this visit: no <Antelmo Olvera - 02/17/18 15:20> no <Sin Victoria - 02/15/18 12:32> Condom Cath placed during this visit: no <Antelmo Olvera - 02/17/18 15:20> no <Sin Victoria - 02/15/18 12:32> Straight Cath placed during this visit: no <Antelmo Olvera - 02/17/18 15:20> yes, but has since been removed by the nurse <Sin Victoria Gay - 02/15/18 12:32> Reason for continuing: Not indwelling catheter <Sin Victoria Gay - 12:30> Insertion date: 01/26/18 <Sin Victoria Gay - 02/15/18 12:30> Insertion time: 17:30 <Sin Victoria Gay - 02/15/18 12:30> Removal date: 01/26/18 <Sin Victoria Gay - 02/15/18 12:30> Removal time: 17:35 <Sin Victoria - 02/15/18 12:30> Assessment and Plan - Assessment (1) Esophageal varices in cirrhosis Code(s): K74.60 - Unspecified cirrhosis of liver; I85.10 - Secondary esophageal varices without bleeding Status: Chronic Plan: see below (2) Hypertension Code(s): I10 - Essential (primary) hypertension Status: Chronic Plan: see below (3) Alcohol abuse Code(s): F10.10 - Alcohol abuse, uncomplicated Status: Chronic Plan: see below (4) Depression with anxiety Code(s): F41.8 - Other specified anxiety disorders Status: Chronic Plan: see below (5) Cough Code(s): R05 - Cough Status: Resolved Plan: see below (6) Diabetes Code(s): E11.9 - Type 2 diabetes mellitus without complications Status: Chronic Plan: See below (7) Deep vein thrombosis (DVT) of brachial vein Code(s): I82.629 - Acute embolism and thrombosis of deep veins of unspecified upper extremity Status: Acute Plan: See below (8) Chest pain Code(s): R07.9 - Chest pain, unspecified Status: Resolved Plan: see below (9) Alcohol withdrawal Code(s): F10.239 - Alcohol dependence with withdrawal, unspecified Status: Resolved Plan: see below (10) Physical deconditioning Code(s): R53.81 - Other malaise Status: Acute (11) Sepsis Code(s): A41.9 - Sepsis, unspecified organism Status: Acute <Mary Victorialorenzo Rashid - 02/15/18 12:30> (1) Iliopsoas abscess on left Code(s): K68.12 - Psoas muscle abscess Status: Acute (2) Sepsis Code(s): A41.9 - Sepsis, unspecified organism Status: Acute (3) Esophageal varices in cirrhosis Code(s): K74.60 - Unspecified cirrhosis of liver; I85.10 - Secondary esophageal varices without bleeding Status: Chronic (4) Hypertension Code(s): I10 - Essential (primary) hypertension Status: Chronic (5) Alcohol abuse Code(s): F10.10 - Alcohol abuse, uncomplicated Status: Chronic (6) Depression with anxiety Code(s): F41.8 - Other specified anxiety disorders Status: Chronic (7) Cough Code(s): R05 - Cough Status: Resolved (8) Diabetes Code(s): E11.9 - Type 2 diabetes mellitus without complications Status: Chronic (9) Deep vein thrombosis (DVT) of brachial vein Code(s): I82.629 - Acute embolism and thrombosis of deep veins of unspecified upper extremity Status: Acute (10) Chest pain Code(s): R07.9 - Chest pain, unspecified Status: Resolved (11) Alcohol withdrawal Code(s): F10.239 - Alcohol dependence with withdrawal, unspecified Status: Resolved (12) Physical deconditioning Code(s): R53.81 - Other malaise Status: Acute <OlveraAntelmo - 02/17/18 15:20> - Assessment and Plan Patient is a 52-year-old male with medical history significant for alcoholism, cirrhosis, and esophageal varices who was admitted with esophageal varices, status post banding x4. He has had altered mental status for most of his hospitalization. He was intubated, and then extubated on 01/27. Repeat EGD on 02/05 showed no active bleed. He has significant physical deconditioning from his hospitalization. He is now working with physical therapy 7 days a week. Their recommendation for his deconditioning is that he go home with home health or to a senior care facility for rehab. His insurance is not wanting to cover either of these options at this time. On 02/14 he he developed pain and difficulty extending the left hip. He was found to have an area concerning for abscess on MRI. CT was more consistent with hematoma. Physical deconditioning and left iliopsoas suspected abscess: Physical therapy 7 days a week is ordered. Most recent PT recommendation is PT at rehab with a wheeled walker. -Continue physical therapy Sepsis secondary to iliopsoas abscess: Met sepsis criteria with fever and pulse rate in the 90s. Complains of inability to move left leg on 02/13/18. His ability to move the left leg is improved from yesterday. MRI showed potential iliopsoas abscess, CT was more consistent with hematoma, however with his oscillating fevers and leukocytosis, treatment for abscess is still appropriate at this time. -Vancomycin and Zosyn for suspected abscess. Depression and anxiety: He does have a history of depression and has been on psychoactive medication in the past. He says that he is on gabapentin which helps with his depression and anxiety, and also Depakote. He is unsure what other medications he has been on. He reports that he is more depressed because he is stuck in the hospital with no one to talk to. He wishes to be evaluated by a psychiatrist. -Psychiatry consulted -Prozac 10 daily -Gabapentin 400 mg 3 times daily started, can increase to 600 -Home medication Depakote continued -Past oral care reconsulted due to patient request Esophageal varices in the context of cirrhosis: He is status post banding x4 at the beginning of this hospitalization. H&H was 8.1 today. EGD repeated without active bleeds 02/05, gastroenterology has signed off. His altered mental status is likely secondary to his liver disease. We are unsure of his baseline, however he is significantly less confused now. He is now oriented x3. He has been intermittently compliant with his lactulose. -Continue lactulose 4 times a day and Xifaxan 550 twice daily -Continue IV Protonix BID -Propranolol 40mg BID Pressure ulcers: Stage I sacral ulcer and stage I pressure ulcer of the right heel -Wound care nurse was consulted, please see their note for current wound care recommendations Hypertension: Amlodipine discontinued due to borderline hypotension, BP has been stable since -Bumex 0.5 mg daily -Propranolol as above Hyperlipidemia: -Continue home medication pravastatin 40 mg p.o. nightly Hypokalemia: -He has had some mild hypokalemia throughout his hospitalization. -Monitor and correct as needed Type 2 diabetes mellitus: He is continued to have blood sugars in the 100s and low 200s -Continue low dose SS insulin -70/30 increased to 20 units BID DVT of brachial vein (right): Last ultrasound on 01/28 was negative for DVT, DVT last seen the ultrasound on 01/19. -Lovenox 40mg daily Alcohol withdrawal: resolved He has a significant history of alcohol abuse and had been receiving treatment at [facility]. He had not been sober at the time of admission. He was transferred to the ICU secondary to withdraw. This has now resolved and he is not currently on any benzodiazepines. Fluids: Adequate p.o. intake Electrolytes: monitor and replete as needed. Nutrition: Regular diet GI prophylaxis: IV Protonix VTE prophylaxis: Lovenox 40mg q24 <Sin Victoria - 02/15/18 12:32> - Attending Attestation See the residents documentation for details. I saw and evaluated the patient regarding the manley portions of this evaluation and agree with the residents findings and plans as written. Parts of this note were created using LS9 voice recognition software program. While efforts were made to correct any mistakes made by this software, some mistakes, errors, and omissions may remain in the final note that were not caught when the note was originally created. Plan of care was discussed and agreed upon with the patient as specifically documented in the above note. An opportunity to ask questions with explanation was provided. Patient voiced understanding on all information reviewed and discussed. <Antelmo Olvera - 02/17/18 15:20>
[2018-02-15] MEDS: Enoxaparin Inj 40 MG/0.4 ML Syringe SQ SCH (16:03)
--- NOTE | 2018-02-15 17:22 | P.PNPL ---
Subjective Interval history: 52 YO male with GIB, cirrhosis Developed resp distress, agitation Extubated 01/27 Alert, awake, follows commands Denies sob No new complaint Physical Exam Vital signs: Vital Signs 02/14/18 20:00 02/15/18 00:00 02/15/18 04:00 Temperature 98.1 F 100.8 F H 98.7 F Pulse Rate 90 89 94 H Respiratory Rate 18 18 Blood Pressure 109/56 L 134/67 140/76 Pulse Oximetry 96 96 94 L 02/15/18 08:00 02/15/18 08:40 02/15/18 12:00 Temperature 98.7 F 100.2 F H Pulse Rate 92 H 98 H 87 Respiratory Rate 17 17 Blood Pressure 145/79 H 111/68 Pulse Oximetry 97 94 L Intake & Output 02/14/18 02/15/18 02/15/18 18:59 06:59 18:59 Intake Total 770 / 770 1717 / 1717 50 / 50 Output Total 1000 / 1000 1450 / 1450 Balance -230 / -230 267 / 267 50 / 50 Weight 95.2 kg Intake: IV 50 / 50 517 / 517 50 / 50 Zosyn 3.375 GM Premix 50 ML @ 50 / 50 50 / 50 100 mls/hr IV.SIG Q6H MANUEL Rx#: [id number] Vancomycin Inj 1,700 MG In NS 517 / 517 Inj 500 ML @ 250 mls/hr IV.SIG Q12H MANUEL Rx#:[id number] Oral 720 / 720 1200 / 1200 Output: Urine 1000 / 1000 1450 / 1450 Other: Date of Last Bowel Movement 02/14/18 02/14/18 # Bowel Movements 2 GENERAL: WBWN NAD SKIN: Warm and dry. HEAD: Normocephalic. EYES: No scleral icterus. No injection or drainage. NECK: Supple, trachea midline. No JVD or lymphadenopathy. CARDIOVASCULAR: Regular rate and rhythm without murmurs, gallops, or rubs. RESPIRATORY: Breath sounds equal bilaterally. No accessory muscle use. GASTROINTESTINAL: Abdomen soft, non-tender, nondistended. MUSCULOSKELETAL: No cyanosis, or edema. BACK: Nontender without obvious deformity. No CVA tenderness. - Urinary Catheter Management Straight Cath placed during this visit: yes, but has since been removed by the nurse Reason for continuing: Not indwelling catheter Insertion date: 01/26/18 Insertion time: 17:30 Removal date: 01/26/18 Removal time: 17:35 Condom Cath placed during this visit: no 400 Cath placed during this visit: no Assessment and Plan - Plan IMPRESSION: 1. Mild shortness of breath and cough, possibly underlying asthma. 2. Hypertension. 3. Diabetes mellitus. 4. Cirrhosis of the liver. 5. VDRF, s/p extubation 01/27 6. Encephalopathy. PLAN: Protonix 40 mg daily Monitor Ammonia level. Aerosol nebs SQ Lovenox Bumex 0.5 mg daily Stable on RA
[2018-02-16] MEDS: Oral Hygiene Kit OROPHARYNG SCH ×5 (00:50→23:27)
[2018-02-16] MEDS: Piperacil/Tazo 3.375 GM Premix 50 ML IV.SIG SCH ×4 (04:29→23:06)
[2018-02-16] MEDS: Vancomycin Inj 1,700 MG in Sodium Chlor 0.9% Inj 500 ML IV.SIG SCH ×2 (05:21→17:49)
[2018-02-16] MEDS ORDERED: Pharmacy Ordered Lab Info OTHER ONE (05:45)
[2018-02-16] MEDS: Insulin NovoLOG Aspart Correctional Sugar Inj SQ SCH ×4 (07:07→23:25)
[2018-02-16] MEDS: Artificial Tears Opth Drops 15 ML Bottle EACH EYE SCH ×3 (07:07→22:04)
[2018-02-16 08:37] LABS: Baso # (Auto) 0.1 th/mm3 (0.0-0.2); Baso % (Auto) 1.1 % (0.0-2.0); Eos # (Auto) 0.4 th/mm3 (0.0-0.4); Eos % (Auto) 5.2 % (0.0-4.0); Hematocrit 25.2 % (39.0-51.0); Hemoglobin 8.3 gm/dL (13.0-17.0); Lymph # (Auto) 0.9 th/mm3 (1.0-4.8); Lymph % (Auto) 13.1 % (9.0-44.0); Mean Corpuscular HGB Conc 32.8 % (32.0-36.0); Mean Corpuscular Hemoglobin 27.6 pg (27.0-34.0); Mean Corpuscular Volume 84.2 fL (80.0-100.0); Mean Platelet Volume 7.6 fL (7.0-11.0); Mono # (Auto) 1.4 th/mm3 (0.0-0.9); Mono % (Auto) 20.2 % (0.0-8.0); Neut # (Auto) 4.1 th/mm3 (1.8-7.7); Neut % (Auto) 60.4 % (16.0-70.0); Platelet Count 131 th/mm3 (150-450); Red Blood Count 2.99 mil/mm3 (4.50-5.90); White Blood Count 6.8 th/mm3 (4.0-11.0)
[2018-02-16] MEDS: rifAXIMin 550 MG Tablet PO SCH ×2 (08:38→22:00)
[2018-02-16] MEDS: Propranolol 40 MG Tablet PO SCH ×2 (08:38→22:03)
[2018-02-16] MEDS: Gabapentin 400 MG Capsule PO SCH ×3 (08:39→17:17)
[2018-02-16] MEDS: Senna/Docusate Sodium 8.6/50 MG Tablet PO SCH ×2 (08:40→22:00)
[2018-02-16] MEDS: Multivit/Folic Acid/Minerals Chewable Tablets CHEW SCH (08:40)
[2018-02-16] MEDS: Pantoprazole Inj 40 MG Vial IV.PUSH SCH (08:41)
[2018-02-16] MEDS: Sodium Chloride 0.9% 2 ML Flush BID IV.FLUSH SCH ×2 (08:41→21:59)
[2018-02-16] MEDS: Lidocaine 5% Patch T-DERMAL SCH (08:41)
[2018-02-16] MEDS: Chlorhexidine 0.12% Oral Kit 15 ML UDC OROPHARYNG SCH ×2 (08:42→21:38)
[2018-02-16] MEDS: FLUoxetine 10 MG Capsule PO SCH (08:43)
[2018-02-16 09:03] LABS: Anion Gap 6 meq/L (5-15); Blood Urea Nitrogen 8 mg/dL (7-18); Calcium 8.3 mg/dL (8.5-10.1); Carbon Dioxide 31.5 meq/L (21.0-32.0); Chloride 102 meq/L (98-107); Glomerular Filtration Rate Greater Than 89 mL/min (>89); Glucose,Random 119 mg/dL (74-106); Sodium 139 meq/L (136-145)
--- NOTE | 2018-02-16 09:51 | P.PNFP ---
Subjective Interval history: No acute events overnight. He does complain of continued pain in the left hip. He states that he has had mild improvement from yesterday, but does request pain medicine. His ability to stretch it is stable since yesterday. He denies fever, chills, lightheadedness, dizziness, nausea, vomiting, chest pain, shortness of breath, abdominal pain, or change in bowel movements. He has no new complaints today <Sin Victoria - 02/16/18 11:23> Results - Labs Result diagrams: 02/17/18 06:50 02/17/18 06:50 <Antelmo Olvera - 02/17/18 15:26> Abnormal lab results 02/16/18 02/16/18 02/16/18 Range/Units 17:19 21:04 23:08 RBC (4.50-5.90) mil/mm3 Hgb (13.0-17.0) gm/dL Hct (39.0-51.0) % RDW (11.6-17.2) % Plt Count (150-450) th/mm3 [place] % (Auto) (0.0-8.0) % Eos % (Auto) (0.0-4.0) % Lymph # (Auto) (1.0-4.8) th/mm3 [place] # (Auto) (0.0-0.9) th/mm3 POC Glucose 172 H 255 H 230 H (68-110) mg/dl Random Glucose (74-106) mg/dL Calcium (8.5-10.1) mg/dL Ammonia (11-32) mcmol/L Vancomycin Trough (5.0-10.0) mcg/mL 02/17/18 02/17/18 02/17/18 Range/Units 05:25 06:50 06:50 RBC 2.91 L (4.50-5.90) mil/mm3 Hgb 7.9 L (13.0-17.0) gm/dL Hct 24.7 L (39.0-51.0) % RDW 23.6 H (11.6-17.2) % Plt Count 115 L (150-450) th/mm3 [place] % (Auto) 17.4 H (0.0-8.0) % Eos % (Auto) 6.7 H (0.0-4.0) % Lymph # (Auto) 0.8 L (1.0-4.8) th/mm3 [place] # (Auto) 1.1 H (0.0-0.9) th/mm3 POC Glucose 164 H (68-110) mg/dl Random Glucose (74-106) mg/dL Calcium (8.5-10.1) mg/dL Ammonia 38 H (11-32) mcmol/L Vancomycin Trough (5.0-10.0) mcg/mL 02/17/18 02/17/18 Range/Units 06:50 11:56 RBC (4.50-5.90) mil/mm3 Hgb (13.0-17.0) gm/dL Hct (39.0-51.0) % RDW (11.6-17.2) % Plt Count (150-450) th/mm3 [place] % (Auto) (0.0-8.0) % Eos % (Auto) (0.0-4.0) % Lymph # (Auto) (1.0-4.8) th/mm3 [place] # (Auto) (0.0-0.9) th/mm3 POC Glucose 293 H (68-110) mg/dl Random Glucose 130 H (74-106) mg/dL Calcium 7.8 L (8.5-10.1) mg/dL Ammonia (11-32) mcmol/L Vancomycin Trough 15.8 H (5.0-10.0) mcg/mL Short CBC 02/17/18 Range/Units 06:50 WBC 6.4 (4.0-11.0) th/mm3 Hgb 7.9 L (13.0-17.0) gm/dL Hct 24.7 L (39.0-51.0) % Plt Count 115 L (150-450) th/mm3 BMP 02/17/18 06:50 Sodium 139 Potassium 3.5 Chloride 100 Carbon Dioxide 30.3 BUN 9 Creatinine 0.88 Calcium 7.8 L <Antelmo Olvera - 02/17/18 15:26> Abnormal lab results 02/15/18 02/15/18 02/15/18 Range/Units 09:38 09:38 13:55 RBC 2.95 L (4.50-5.90) mil/mm3 Hgb 8.3 L (13.0-17.0) gm/dL Hct 24.9 L (39.0-51.0) % RDW 23.8 H (11.6-17.2) % Plt Count 149 L (150-450) th/mm3 [place] % (Auto) 18.0 H (0.0-8.0) % Eos % (Auto) (0.0-4.0) % Lymph # (Auto) 0.9 L (1.0-4.8) th/mm3 [place] # (Auto) 1.5 H (0.0-0.9) th/mm3 POC Glucose 210 H (68-110) mg/dl Random Glucose 172 H (74-106) mg/dL Calcium 8.4 L (8.5-10.1) mg/dL Total Bilirubin 1.6 H (0.2-1.0) mg/dL AST 76 H (15-37) U/L Alkaline Phosphatase 269 H (45-117) U/L Albumin 2.6 L (3.4-5.0) g/dL Vancomycin Trough (5.0-10.0) mcg/mL 02/15/18 02/15/18 02/16/18 Range/Units 17:40 23:20 05:20 RBC (4.50-5.90) mil/mm3 Hgb (13.0-17.0) gm/dL Hct (39.0-51.0) % RDW (11.6-17.2) % Plt Count (150-450) th/mm3 [place] % (Auto) (0.0-8.0) % Eos % (Auto) (0.0-4.0) % Lymph # (Auto) (1.0-4.8) th/mm3 [place] # (Auto) (0.0-0.9) th/mm3 POC Glucose 194 H 263 H 182 H (68-110) mg/dl Random Glucose (74-106) mg/dL Calcium (8.5-10.1) mg/dL Total Bilirubin (0.2-1.0) mg/dL AST (15-37) U/L Alkaline Phosphatase (45-117) U/L Albumin (3.4-5.0) g/dL Vancomycin Trough (5.0-10.0) mcg/mL 02/16/18 02/16/18 Range/Units 08:05 08:05 RBC 2.99 L (4.50-5.90) mil/mm3 Hgb 8.3 L (13.0-17.0) gm/dL Hct 25.2 L (39.0-51.0) % RDW 24.0 H (11.6-17.2) % Plt Count 131 L (150-450) th/mm3 [place] % (Auto) 20.2 H (0.0-8.0) % Eos % (Auto) 5.2 H (0.0-4.0) % Lymph # (Auto) 0.9 L (1.0-4.8) th/mm3 [place] # (Auto) 1.4 H (0.0-0.9) th/mm3 POC Glucose (68-110) mg/dl Random Glucose 119 H (74-106) mg/dL Calcium 8.3 L (8.5-10.1) mg/dL Total Bilirubin (0.2-1.0) mg/dL AST (15-37) U/L Alkaline Phosphatase (45-117) U/L Albumin (3.4-5.0) g/dL Vancomycin Trough 33.0 H (5.0-10.0) mcg/mL Short CBC 02/15/18 02/16/18 Range/Units 09:38 08:05 WBC 8.5 6.8 (4.0-11.0) th/mm3 Hgb 8.3 L 8.3 L (13.0-17.0) gm/dL Hct 24.9 L 25.2 L (39.0-51.0) % Plt Count 149 L 131 L (150-450) th/mm3 BMP 02/15/18 02/16/18 09:38 08:05 Sodium 138 139 Potassium 3.5 4.0 Chloride 100 102 Carbon Dioxide 32.0 31.5 BUN 7 8 Creatinine 0.78 0.84 Calcium 8.4 L 8.3 L Liver Function 02/15/18 Range/Units 09:38 Total Bilirubin 1.6 H (0.2-1.0) mg/dL AST 76 H (15-37) U/L ALT 46 (12-78) U/L Alkaline Phosphatase 269 H (45-117) U/L Albumin 2.6 L (3.4-5.0) g/dL <EsmeJorgeSin J - 02/16/18 09:51> Physical Exam Vital signs: Vital Signs 02/16/18 16:00 02/16/18 20:00 02/17/18 00:00 Temperature 98.6 F 97.1 F L 97.2 F L Pulse Rate 81 87 91 H Respiratory Rate 18 18 18 Blood Pressure 123/70 126/71 Pulse Oximetry 98 97 94 L 02/17/18 04:00 02/17/18 08:00 02/17/18 12:00 Temperature 97.4 F L 99 F 99.6 F Pulse Rate 93 H 87 84 Respiratory Rate 17 20 20 Blood Pressure 131/76 123/62 118/71 Pulse Oximetry 93 L 97 97 Intake & Output 02/16/18 02/17/18 02/17/18 18:59 06:59 18:59 Intake Total 617 / 617 2617 / 2617 50 / 50 Output Total 400 / 400 Balance 617 / 617 2217 / 2217 50 / 50 Weight 94 kg Intake: IV 617 / 617 617 / 617 50 / 50 Zosyn 3.375 GM Premix 50 ML @ 100 / 100 100 / 100 50 / 50 100 mls/hr IV.SIG Q6H MANUEL Rx#: [id number] Vancomycin Inj 1,700 MG In NS 517 / 517 517 / 517 Inj 500 ML @ 250 mls/hr IV.SIG Q12H MANUEL Rx#:[id number] Oral 1999 Output: Urine 400 / 400 Other: # Urine Diapers 4 Date of Last Bowel Movement 02/16/18 02/17/18 # Bowel Movements 3 # Incontinent Bowel Movements 2 <Antelmo Olvera - 02/17/18 15:26> Vital Signs 02/15/18 12:00 02/15/18 16:00 02/15/18 20:00 Temperature 100.2 F H 98.7 F 99 F Pulse Rate 94 H 94 H 90 Respiratory Rate 17 17 16 Blood Pressure 111/68 120/65 125/67 Pulse Oximetry 94 L 95 95 02/16/18 00:00 02/16/18 04:00 02/16/18 08:00 Temperature 97.8 F 99.6 F 98.8 F Pulse Rate 89 93 H 88 Respiratory Rate 18 17 18 Blood Pressure 116/68 127/72 130/68 Pulse Oximetry 98 96 96 Intake & Output 02/15/18 02/16/18 02/16/18 18:59 06:59 18:59 Intake Total 100 / 100 2317 / 2317 517 / 517 Output Total 0 / 0 2099 / 2100 Balance 100 / 100 217 / 217 517 / 517 Weight 93.6 kg Intake: IV 100 / 100 617 / 617 517 / 517 Zosyn 3.375 GM Premix 50 ML @ 100 / 100 100 / 100 100 mls/hr IV.SIG Q6H MANUEL Rx#: [id number] Vancomycin Inj 1,700 MG In NS 517 / 517 517 / 517 Inj 500 ML @ 250 mls/hr IV.SIG Q12H MANUEL Rx#:[id number] Oral 1700 / 1700 Tube Feeding 0 / 0 Tube Irrigant 0 / 0 Water Bolus Amount 0 / 0 Output: Urine 2099 / 2099 Stool 0 / 0 Urine/Stool Mix 0 / 0 Urine Amount (Catheter) 0 / 0 Straight 0 / 0 Other: # Voids 4 Date of Last Bowel Movement 02/14/18 02/14/18 # Bowel Movements 2 # Incontinent Bowel Movements 1 <Sin Victoria - 02/16/18 09:51> Narrative: General: Well-developed, alert, and in no acute distress. Neurologic: Oriented x3, depressed affect HEENT: Atraumatic, moist mucous membranes Neck: Supple, trachea midline Cardiac: Regular rate and rhythm without murmurs Pulmonary: Non-labored breathing. Lungs clear to auscultation bilaterally with good air movement Abdomen: Normal bowel sounds, soft and non-tender without rebound or guarding Extremities: No edema, 2+ pedal pulses, capillary refill less than 2 seconds. 5/ 5 bl ankle strength. Stable ROM of the hip today. He does have pain over the left greater trochanter left, and pain with logroll of the left leg. <Sin Victoria - 02/16/18 11:23> - Urinary Catheter Management 400 Cath placed during this visit: no <Antelmo Olvera - 02/17/18 15:26> no <Sin Victoria - 02/16/18 11:23> Condom Cath placed during this visit: no <Antelmo Olvera - 02/17/18 15:26> no <Mary Victorias Gay - 02/16/18 11:23> Straight Cath placed during this visit: no <OlveraAntelmo - 02/17/18 15:26> yes, but has since been removed by the nurse <Sin Victoria Gay - 02/16/18 11:23> Reason for continuing: Not indwelling catheter <NedadaisyJorge thomsonpietro Rashid - 09:51> Insertion date: 01/26/18 <Jorge Victoriapietro Rashid - 02/16/18 09:51> Insertion time: 17:30 <Sin Victoria Gay - 02/16/18 09:51> Removal date: 01/26/18 <NedadaisyMary thomsonlorenzo Rashid - 02/16/18 09:51> Removal time: 17:35 <Sin Victoria Gay - 02/16/18 09:51> Assessment and Plan - Assessment (1) Iliopsoas abscess on left Code(s): K68.12 - Psoas muscle abscess Status: Acute (2) Sepsis Code(s): A41.9 - Sepsis, unspecified organism Status: Acute (3) Esophageal varices in cirrhosis Code(s): K74.60 - Unspecified cirrhosis of liver; I85.10 - Secondary esophageal varices without bleeding Status: Chronic (4) Hypertension Code(s): I10 - Essential (primary) hypertension Status: Chronic (5) Alcohol abuse Code(s): F10.10 - Alcohol abuse, uncomplicated Status: Chronic (6) Depression with anxiety Code(s): F41.8 - Other specified anxiety disorders Status: Chronic (7) Cough Code(s): R05 - Cough Status: Resolved (8) Diabetes Code(s): E11.9 - Type 2 diabetes mellitus without complications Status: Chronic (9) Deep vein thrombosis (DVT) of brachial vein Code(s): I82.629 - Acute embolism and thrombosis of deep veins of unspecified upper extremity Status: Acute (10) Chest pain Code(s): R07.9 - Chest pain, unspecified Status: Resolved (11) Alcohol withdrawal Code(s): F10.239 - Alcohol dependence with withdrawal, unspecified Status: Resolved (12) Physical deconditioning Code(s): R53.81 - Other malaise Status: Acute <Antelmo Olvera - 02/17/18 15:26> (1) Iliopsoas abscess on left Code(s): K68.12 - Psoas muscle abscess Status: Acute (2) Sepsis Code(s): A41.9 - Sepsis, unspecified organism Status: Acute (3) Esophageal varices in cirrhosis Code(s): K74.60 - Unspecified cirrhosis of liver; I85.10 - Secondary esophageal varices without bleeding Status: Chronic Plan: see below (4) Hypertension Code(s): I10 - Essential (primary) hypertension Status: Chronic Plan: see below (5) Alcohol abuse Code(s): F10.10 - Alcohol abuse, uncomplicated Status: Chronic Plan: see below (6) Depression with anxiety Code(s): F41.8 - Other specified anxiety disorders Status: Chronic Plan: see below (7) Cough Code(s): R05 - Cough Status: Resolved Plan: see below (8) Diabetes Code(s): E11.9 - Type 2 diabetes mellitus without complications Status: Chronic Plan: See below (9) Deep vein thrombosis (DVT) of brachial vein Code(s): I82.629 - Acute embolism and thrombosis of deep veins of unspecified upper extremity Status: Acute Plan: See below (10) Chest pain Code(s): R07.9 - Chest pain, unspecified Status: Resolved Plan: see below (11) Alcohol withdrawal Code(s): F10.239 - Alcohol dependence with withdrawal, unspecified Status: Resolved Plan: see below (12) Physical deconditioning Code(s): R53.81 - Other malaise Status: Acute <Sin Victoria - 02/16/18 11:16> - Assessment and Plan Patient is a 52-year-old male with medical history significant for alcoholism, cirrhosis, and esophageal varices who was admitted with esophageal varices, status post banding x4. He has had altered mental status for most of his hospitalization. He was intubated, and then extubated on 01/27. Repeat EGD on 02/05 showed no active bleed. He has significant physical deconditioning from his hospitalization. He is now working with physical therapy 7 days a week. Their recommendation for his deconditioning is that he go home with home health or to a [place] [facility] facility for rehab. His insurance is not wanting to cover either of these options at this time. On 02/14 he he developed pain and difficulty extending the left hip. He was found to have an area concerning for abscess on MRI. CT was more consistent with hematoma. Sepsis secondary to suspected iliopsoas abscess: Met sepsis criteria with fever and pulse rate in the 90s. Complaint of inability to move left leg on 02/13/18. His ability to move the left leg is stable from yesterday. MRI showed potential iliopsoas abscess, CT was more consistent with hematoma, however with his oscillating fevers and leukocytosis, treatment for abscess is still appropriate at this time. He was afebrile without leukocytosis today -Vancomycin and Zosyn for suspected abscess -Blood cultures drawn 02/14 show no growth thus far Significant pain in the area, Toradol 10 mg 4 times daily started Physical deconditioning: Physical therapy 7 days a week is ordered. Most recent PT recommendation is PT at rehab with a wheeled walker. -Continue physical therapy Depression and anxiety: He does have a history of depression and has been on psychoactive medication in the past. He says that he is on gabapentin which helps with his depression and anxiety, and also Depakote. He is unsure what other medications he has been on. He reports that he is more depressed because he is stuck in the hospital with no one to talk to. Psychiatry consulted. Pastoral care consult -Prozac 10 daily -Gabapentin 400 mg 3 times daily started, can increase to 600 -Home medication Depakote continued Esophageal varices in the context of cirrhosis: He is status post banding x4 at the beginning of this hospitalization. H&H was 8.1 today. EGD repeated without active bleeds 02/05, gastroenterology has signed off. His altered mental status is likely secondary to his liver disease. We are unsure of his baseline, however he is significantly less confused now. He is now oriented x3. He has been intermittently compliant with his lactulose. -Continue lactulose 4 times a day and Xifaxan 550 twice daily, he has been refusing his lactulose due to an inability to make it to the bedside, -P.o. Protonix twice daily -Propranolol 40mg BID Pressure ulcers: Stage I sacral ulcer and stage I pressure ulcer of the right heel -Wound care nurse was consulted, please see their note for current wound care recommendations Hypertension: Amlodipine discontinued due to borderline hypotension, BP has been stable since -Bumex 0.5 mg daily -Propranolol as above Hyperlipidemia: -Continue home medication pravastatin 40 mg p.o. nightly Hypokalemia: -He has had some mild hypokalemia throughout his hospitalization. -Monitor and correct as needed Type 2 diabetes mellitus: He is continued to have blood sugars in the 100s and low 200s -Continue low dose SS insulin -70/30 increased to 20 units BID DVT of brachial vein (right): Last ultrasound on 01/28 was negative for DVT, DVT last seen the ultrasound on 01/19. -Lovenox 40mg daily Alcohol withdrawal: resolved He has a significant history of alcohol abuse and had been receiving treatment at [facility]. He had not been sober at the time of admission. He was transferred to the ICU secondary to withdraw. This has now resolved and he is not currently on any benzodiazepines. Fluids: Adequate p.o. intake Electrolytes: monitor and replete as needed. Nutrition: Regular diet GI prophylaxis: PO Protonix VTE prophylaxis: Lovenox 40mg q24h <Sin Victoria - 02/16/18 11:23> - Attending Attestation See the residents documentation for details. I saw and evaluated the patient regarding the [place] portions of this evaluation and agree with the residents findings and plans as written. Parts of this note were created using [employer] voice recognition software program. While efforts were made to correct any mistakes made by this software, some mistakes, errors, and omissions may remain in the final note that were not caught when the note was originally created. Plan of care was discussed and agreed upon with the patient as specifically documented in the above note. An opportunity to ask questions with explanation was provided. Patient voiced understanding on all information reviewed and discussed. <Antelmo Olvera - 02/17/18 15:26>
[2018-02-16] MEDS: Ketorolac 10 MG Tablet PO PRN ×2 (12:20→18:57)
[2018-02-16] MEDS: Ferrous Sulfate 325 MG Tablet PO SCH ×2 (12:21→16:38)
[2018-02-16] MEDS: Enoxaparin Inj 40 MG/0.4 ML Syringe SQ SCH (15:10)
--- NOTE | 2018-02-16 16:01 | P.PNPL ---
Subjective Interval history: 52 YO male with GIB, cirrhosis Developed resp distress, agitation Extubated 01/27 Alert, awake, follows commands Denies sob C/O hip pain Physical Exam Vital signs: Vital Signs 02/15/18 20:00 02/16/18 00:00 02/16/18 04:00 Temperature 99 F 97.8 F 99.6 F Pulse Rate 90 89 93 H Respiratory Rate 16 18 17 Blood Pressure 125/67 116/68 127/72 Pulse Oximetry 95 98 96 02/16/18 08:00 02/16/18 12:00 Temperature 98.8 F 99.3 F Pulse Rate 86 75 Respiratory Rate 18 18 Blood Pressure 130/68 133/74 Pulse Oximetry 96 98 Intake & Output 02/15/18 02/16/18 02/16/18 18:59 06:59 18:59 Intake Total 100 / 100 2317 / 2317 567 / 567 Output Total 0 / 0 2100 / 2100 Balance 100 / 100 217 / 217 567 / 567 Weight 93.6 kg Intake: IV 100 / 100 617 / 617 567 / 567 Zosyn 3.375 GM Premix 50 ML @ 100 / 100 100 / 100 50 / 50 100 mls/hr IV.SIG Q6H MANUEL Rx#: [id number] Vancomycin Inj 1,700 MG In NS 517 / 517 517 / 517 Inj 500 ML @ 250 mls/hr IV.SIG Q12H MANUEL Rx#:[id number] Oral 1700 / 1700 Tube Feeding 0 / 0 Tube Irrigant 0 / 0 Water Bolus Amount 0 / 0 Output: Urine 2100 / 2100 Stool 0 / 0 Urine/Stool Mix 0 / 0 Urine Amount (Catheter) 0 / 0 Straight 0 / 0 Other: # Voids 4 Date of Last Bowel Movement 02/14/18 02/14/18 02/16/18 # Bowel Movements 2 # Incontinent Bowel Movements 1 GENERAL: WBWN NAD SKIN: Warm and dry. HEAD: Normocephalic. EYES: No scleral icterus. No injection or drainage. NECK: Supple, trachea midline. No JVD or lymphadenopathy. CARDIOVASCULAR: Regular rate and rhythm without murmurs, gallops, or rubs. RESPIRATORY: Breath sounds equal bilaterally. No accessory muscle use. GASTROINTESTINAL: Abdomen soft, non-tender, nondistended. MUSCULOSKELETAL: No cyanosis, or edema. BACK: Nontender without obvious deformity. No CVA tenderness. - Urinary Catheter Management Straight Cath placed during this visit: yes, but has since been removed by the nurse Reason for continuing: Not indwelling catheter Insertion date: 01/26/18 Insertion time: 17:30 Removal date: 01/26/18 Removal time: 17:35 Condom Cath placed during this visit: no 400 Cath placed during this visit: no Assessment and Plan - Plan IMPRESSION: 1. Mild shortness of breath and cough, possibly underlying asthma. 2. Hypertension. 3. Diabetes mellitus. 4. Cirrhosis of the liver. 5. VDRF, s/p extubation 01/27 6. Encephalopathy. PLAN: Protonix 40 mg daily Monitor Ammonia level. Aerosol nebs SQ Lovenox Bumex 0.5 mg daily Stable on RA
[2018-02-17] MEDS: Ketorolac 10 MG Tablet PO PRN ×4 (02:20→23:39)
[2018-02-17] MEDS: Oral Hygiene Kit OROPHARYNG SCH ×3 (03:16→16:54)
[2018-02-17] MEDS: Artificial Tears Opth Drops 15 ML Bottle EACH EYE SCH ×3 (05:27→22:14)
[2018-02-17] MEDS: Piperacil/Tazo 3.375 GM Premix 50 ML IV.SIG SCH ×4 (05:42→23:40)
[2018-02-17] MEDS: Insulin NovoLOG Aspart Correctional Sugar Inj SQ SCH ×3 (05:44→17:53)
[2018-02-17] MEDS ORDERED: Pharmacy Ordered Lab Info OTHER ONE (05:45)
[2018-02-17 07:20] LABS: Baso # (Auto) 0.1 th/mm3 (0.0-0.2); Baso % (Auto) 1.3 % (0.0-2.0); Eos # (Auto) 0.4 th/mm3 (0.0-0.4); Eos % (Auto) 6.7 % (0.0-4.0); Hematocrit 24.7 % (39.0-51.0); Hemoglobin 7.9 gm/dL (13.0-17.0); Lymph # (Auto) 0.8 th/mm3 (1.0-4.8); Mean Corpuscular HGB Conc 32.1 % (32.0-36.0); Mean Corpuscular Hemoglobin 27.2 pg (27.0-34.0); Mean Corpuscular Volume 84.6 fL (80.0-100.0); Mean Platelet Volume 7.7 fL (7.0-11.0); Mono # (Auto) 1.1 th/mm3 (0.0-0.9); Mono % (Auto) 17.4 % (0.0-8.0); Neut % (Auto) 62.6 % (16.0-70.0); Platelet Count 115 th/mm3 (150-450); Red Blood Count 2.91 mil/mm3 (4.50-5.90); Red Cell Distribution Width 23.6 % (11.6-17.2); White Blood Count 6.4 th/mm3 (4.0-11.0)
[2018-02-17 07:50] LABS: Anion Gap 9 meq/L (5-15); Blood Urea Nitrogen 9 mg/dL (7-18); Calcium 7.8 mg/dL (8.5-10.1); Carbon Dioxide 30.3 meq/L (21.0-32.0); Chloride 100 meq/L (98-107); Glomerular Filtration Rate Greater Than 89 mL/min (>89); Glucose,Random 130 mg/dL (74-106); Potassium 3.5 meq/L (3.5-5.1); Sodium 139 meq/L (136-145)
[2018-02-17 07:52] LABS: Vancomycin,Trough 15.8 mcg/mL (5.0-10.0)
[2018-02-17] MEDS: Vancomycin Inj 1,700 MG in Sodium Chlor 0.9% Inj 500 ML IV.SIG SCH ×2 (08:35→17:53)
[2018-02-17] MEDS: Propranolol 40 MG Tablet PO SCH ×2 (09:42→22:12)
[2018-02-17] MEDS: Chlorhexidine 0.12% Oral Kit 15 ML UDC OROPHARYNG SCH ×2 (09:42→22:07)
[2018-02-17] MEDS: FLUoxetine 10 MG Capsule PO SCH (09:42)
[2018-02-17] MEDS: rifAXIMin 550 MG Tablet PO SCH ×2 (09:43→22:13)
[2018-02-17] MEDS: Gabapentin 400 MG Capsule PO SCH ×2 (09:43→13:24)
[2018-02-17] MEDS: Senna/Docusate Sodium 8.6/50 MG Tablet PO SCH ×2 (09:43→22:14)
[2018-02-17] MEDS: Multivit/Folic Acid/Minerals Chewable Tablets CHEW SCH (09:43)
[2018-02-17] MEDS: Lidocaine 5% Patch T-DERMAL SCH (09:44)
[2018-02-17] MEDS: Sodium Chloride 0.9% 2 ML Flush BID IV.FLUSH SCH ×2 (11:14→22:12)
--- NOTE | 2018-02-17 12:19 | P.PNFP ---
Subjective Interval history: No acute events overnight. He complains of continued pain in the leg and the left lower quadrant. He has difficulty describing the pain. He complains of continued weakness in the leg. He is able to stretch it out now more, but does not have any strength in hip flexion, extension, abduction, abduction or knee flexion or extension. He also complains of numbness on the left lateral thigh. Otherwise, he has no nausea, vomiting, fever, chills, chest pain, palpitations , shortness of breath, or change in bowel movements. <Sin Victoria - 02/17/18 12:19> Results - Labs Result diagrams: 02/17/18 06:50 02/17/18 06:50 <Antelmo Olvera - 02/17/18 15:41> Abnormal lab results 02/16/18 02/16/18 02/16/18 Range/Units 17:19 21:04 23:08 RBC (4.50-5.90) mil/mm3 Hgb (13.0-17.0) gm/dL Hct (39.0-51.0) % RDW (11.6-17.2) % Plt Count (150-450) th/mm3 [place] % (Auto) (0.0-8.0) % Eos % (Auto) (0.0-4.0) % Lymph # (Auto) (1.0-4.8) th/mm3 [place] # (Auto) (0.0-0.9) th/mm3 POC Glucose 172 H 255 H 230 H (68-110) mg/dl Random Glucose (74-106) mg/dL Calcium (8.5-10.1) mg/dL Ammonia (11-32) mcmol/L Vancomycin Trough (5.0-10.0) mcg/mL 02/17/18 02/17/18 02/17/18 Range/Units 05:25 06:50 06:50 RBC 2.91 L (4.50-5.90) mil/mm3 Hgb 7.9 L (13.0-17.0) gm/dL Hct 24.7 L (39.0-51.0) % RDW 23.6 H (11.6-17.2) % Plt Count 115 L (150-450) th/mm3 [place] % (Auto) 17.4 H (0.0-8.0) % Eos % (Auto) 6.7 H (0.0-4.0) % Lymph # (Auto) 0.8 L (1.0-4.8) th/mm3 [place] # (Auto) 1.1 H (0.0-0.9) th/mm3 POC Glucose 164 H (68-110) mg/dl Random Glucose (74-106) mg/dL Calcium (8.5-10.1) mg/dL Ammonia 38 H (11-32) mcmol/L Vancomycin Trough (5.0-10.0) mcg/mL 02/17/18 02/17/18 Range/Units 06:50 11:56 RBC (4.50-5.90) mil/mm3 Hgb (13.0-17.0) gm/dL Hct (39.0-51.0) % RDW (11.6-17.2) % Plt Count (150-450) th/mm3 [place] % (Auto) (0.0-8.0) % Eos % (Auto) (0.0-4.0) % Lymph # (Auto) (1.0-4.8) th/mm3 [place] # (Auto) (0.0-0.9) th/mm3 POC Glucose 293 H (68-110) mg/dl Random Glucose 130 H (74-106) mg/dL Calcium 7.8 L (8.5-10.1) mg/dL Ammonia (11-32) mcmol/L Vancomycin Trough 15.8 H (5.0-10.0) mcg/mL Short CBC 02/17/18 Range/Units 06:50 WBC 6.4 (4.0-11.0) th/mm3 Hgb 7.9 L (13.0-17.0) gm/dL Hct 24.7 L (39.0-51.0) % Plt Count 115 L (150-450) th/mm3 BMP 02/17/18 06:50 Sodium 139 Potassium 3.5 Chloride 100 Carbon Dioxide 30.3 BUN 9 Creatinine 0.88 Calcium 7.8 L <Antelmo Olvera - 02/17/18 15:41> Abnormal lab results 02/16/18 02/16/18 02/16/18 Range/Units 13:00 17:19 21:04 RBC (4.50-5.90) mil/mm3 Hgb (13.0-17.0) gm/dL Hct (39.0-51.0) % RDW (11.6-17.2) % Plt Count (150-450) th/mm3 [place] % (Auto) (0.0-8.0) % Eos % (Auto) (0.0-4.0) % Lymph # (Auto) (1.0-4.8) th/mm3 [place] # (Auto) (0.0-0.9) th/mm3 POC Glucose 209 H 172 H 255 H (68-110) mg/dl Random Glucose (74-106) mg/dL Calcium (8.5-10.1) mg/dL Ammonia (11-32) mcmol/L Vancomycin Trough (5.0-10.0) mcg/mL 02/16/18 02/17/18 02/17/18 Range/Units 23:08 05:25 06:50 RBC (4.50-5.90) mil/mm3 Hgb (13.0-17.0) gm/dL Hct (39.0-51.0) % RDW (11.6-17.2) % Plt Count (150-450) th/mm3 [place] % (Auto) (0.0-8.0) % Eos % (Auto) (0.0-4.0) % Lymph # (Auto) (1.0-4.8) th/mm3 [place] # (Auto) (0.0-0.9) th/mm3 POC Glucose 230 H 164 H (68-110) mg/dl Random Glucose (74-106) mg/dL Calcium (8.5-10.1) mg/dL Ammonia 38 H (11-32) mcmol/L Vancomycin Trough (5.0-10.0) mcg/mL 02/17/18 02/17/18 Range/Units 06:50 06:50 RBC 2.91 L (4.50-5.90) mil/mm3 Hgb 7.9 L (13.0-17.0) gm/dL Hct 24.7 L (39.0-51.0) % RDW 23.6 H (11.6-17.2) % Plt Count 115 L (150-450) th/mm3 [place] % (Auto) 17.4 H (0.0-8.0) % Eos % (Auto) 6.7 H (0.0-4.0) % Lymph # (Auto) 0.8 L (1.0-4.8) th/mm3 [place] # (Auto) 1.1 H (0.0-0.9) th/mm3 POC Glucose (68-110) mg/dl Random Glucose 130 H (74-106) mg/dL Calcium 7.8 L (8.5-10.1) mg/dL Ammonia (11-32) mcmol/L Vancomycin Trough 15.8 H (5.0-10.0) mcg/mL Short CBC 02/17/18 Range/Units 06:50 WBC 6.4 (4.0-11.0) th/mm3 Hgb 7.9 L (13.0-17.0) gm/dL Hct 24.7 L (39.0-51.0) % Plt Count 115 L (150-450) th/mm3 BMP 02/17/18 06:50 Sodium 139 Potassium 3.5 Chloride 100 Carbon Dioxide 30.3 BUN 9 Creatinine 0.88 Calcium 7.8 L <Sin Victoria - 02/17/18 12:19> Physical Exam Vital signs: Vital Signs 02/16/18 16:00 02/16/18 20:00 02/17/18 00:00 Temperature 98.6 F 97.1 F L 97.2 F L Pulse Rate 81 87 91 H Respiratory Rate 18 18 18 Blood Pressure 123/70 126/71 Pulse Oximetry 98 97 94 L 02/17/18 04:00 02/17/18 08:00 02/17/18 12:00 Temperature 97.4 F L 99 F 99.6 F Pulse Rate 93 H 87 84 Respiratory Rate 17 20 20 Blood Pressure 131/76 123/62 118/71 Pulse Oximetry 93 L 97 97 Intake & Output 02/16/18 02/17/18 02/17/18 18:59 06:59 18:59 Intake Total 617 / 617 2617 / 2617 50 / 50 Output Total 400 / 400 Balance 617 / 617 2217 / 2217 50 / 50 Weight 94 kg Intake: IV 617 / 617 617 / 617 50 / 50 Zosyn 3.375 GM Premix 50 ML @ 100 / 100 100 / 100 50 / 50 100 mls/hr IV.SIG Q6H MANUEL Rx#: [id number] Vancomycin Inj 1,700 MG In NS 517 / 517 517 / 517 Inj 500 ML @ 250 mls/hr IV.SIG Q12H MANUEL Rx#:[id number] Oral 1999 Output: Urine 400 / 400 Other: # Urine Diapers 4 Date of Last Bowel Movement 02/16/18 02/17/18 # Bowel Movements 3 # Incontinent Bowel Movements 2 <Antelmo Olvera - 02/17/18 15:41> Vital Signs 02/16/18 12:40 02/16/18 16:00 02/16/18 20:00 Temperature 98.6 F 97.1 F L Pulse Rate 78 81 87 Respiratory Rate 18 18 Blood Pressure 123/70 Pulse Oximetry 98 97 02/17/18 00:00 02/17/18 04:00 02/17/18 08:00 Temperature 97.2 F L 97.4 F L 99 F Pulse Rate 91 H 93 H 87 Respiratory Rate 18 17 20 Blood Pressure 126/71 131/76 123/62 Pulse Oximetry 94 L 93 L 97 Intake & Output 02/16/18 02/17/18 02/17/18 18:59 06:59 18:59 Intake Total 617 / 617 2617 / 2617 50 / 50 Output Total 400 / 400 Balance 617 / 617 2217 / 2217 50 / 50 Weight 94 kg Intake: IV 617 / 617 617 / 617 50 / 50 Zosyn 3.375 GM Premix 50 ML @ 100 / 100 100 / 100 50 / 50 100 mls/hr IV.SIG Q6H MANUEL Rx#: [id number] Vancomycin Inj 1,700 MG In NS 517 / 517 517 / 517 Inj 500 ML @ 250 mls/hr IV.SIG Q12H MANUEL Rx#:[id number] Oral 1999 Output: Urine 400 / 400 Other: # Urine Diapers 4 Date of Last Bowel Movement 02/16/18 02/17/18 # Bowel Movements 3 # Incontinent Bowel Movements 2 <Sin Victoria - 02/17/18 12:19> Narrative: General: Well-developed, alert, and in no acute distress. Neurologic: Oriented x3, depressed affect HEENT: Atraumatic, moist mucous membranes Neck: Supple, trachea midline Cardiac: Regular rate and rhythm without murmurs Pulmonary: Non-labored breathing. Lungs clear to auscultation bilaterally with good air movement Abdomen: Normal bowel sounds, soft, tender in the left lower quadrant to deep palpation without rebound or guarding Extremities: No edema, 2+ pedal pulses, capillary refill less than 2 seconds. Stable passive ROM of the hip today. No pain on logroll of the left leg. No strength in hip flexion, extension, abduction, abduction or knee flexion or extension. 5/5 bl ankle strength. <Sin Victoria - 02/17/18 14:24> - Urinary Catheter Management 400 Cath placed during this visit: no <Antelmo Olvera - 02/17/18 15:41> no <Sin Victoria - 02/17/18 14:24> Condom Cath placed during this visit: no <Antelmo Olvera - 02/17/18 15:41> no <Sin Victoria - 02/17/18 14:24> Straight Cath placed during this visit: no <Antelmo Olvera - 02/17/18 15:41> yes, but has since been removed by the nurse <Sin Victoria - 02/17/18 14:24> Reason for continuing: Not indwelling catheter <Sin Victoria - 12:19> Insertion date: 01/26/18 <Sin Victoria - 02/17/18 12:19> Insertion time: 17:30 <Sin Victoria - 02/17/18 12:19> Removal date: 01/26/18 <Sin Victoria 02/17/18 12:19> Removal time: 17:35 <Sin Victoria 02/17/18 12:19> Assessment and Plan - Assessment (1) Iliopsoas abscess on left Code(s): K68.12 - Psoas muscle abscess Status: Acute (2) Sepsis Code(s): A41.9 - Sepsis, unspecified organism Status: Acute (3) Esophageal varices in cirrhosis Code(s): K74.60 - Unspecified cirrhosis of liver; I85.10 - Secondary esophageal varices without bleeding Status: Chronic (4) Hypertension Code(s): I10 - Essential (primary) hypertension Status: Chronic (5) Alcohol abuse Code(s): F10.10 - Alcohol abuse, uncomplicated Status: Chronic (6) Depression with anxiety Code(s): F41.8 - Other specified anxiety disorders Status: Chronic (7) Cough Code(s): R05 - Cough Status: Resolved (8) Diabetes Code(s): E11.9 - Type 2 diabetes mellitus without complications Status: Chronic (9) Deep vein thrombosis (DVT) of brachial vein Code(s): I82.629 - Acute embolism and thrombosis of deep veins of unspecified upper extremity Status: Acute (10) Chest pain Code(s): R07.9 - Chest pain, unspecified Status: Resolved (11) Alcohol withdrawal Code(s): F10.239 - Alcohol dependence with withdrawal, unspecified Status: Resolved (12) Physical deconditioning Code(s): R53.81 - Other malaise Status: Acute <Antelmo Olvera - 02/17/18 15:41> (1) Iliopsoas abscess on left Code(s): K68.12 - Psoas muscle abscess Status: Acute (2) Sepsis Code(s): A41.9 - Sepsis, unspecified organism Status: Acute (3) Esophageal varices in cirrhosis Code(s): K74.60 - Unspecified cirrhosis of liver; I85.10 - Secondary esophageal varices without bleeding Status: Chronic Plan: see below (4) Hypertension Code(s): I10 - Essential (primary) hypertension Status: Chronic Plan: see below (5) Alcohol abuse Code(s): F10.10 - Alcohol abuse, uncomplicated Status: Chronic Plan: see below (6) Depression with anxiety Code(s): F41.8 - Other specified anxiety disorders Status: Chronic Plan: see below (7) Cough Code(s): R05 - Cough Status: Resolved Plan: see below (8) Diabetes Code(s): E11.9 - Type 2 diabetes mellitus without complications Status: Chronic Plan: See below (9) Deep vein thrombosis (DVT) of brachial vein Code(s): I82.629 - Acute embolism and thrombosis of deep veins of unspecified upper extremity Status: Acute Plan: See below (10) Chest pain Code(s): R07.9 - Chest pain, unspecified Status: Resolved Plan: see below (11) Alcohol withdrawal Code(s): F10.239 - Alcohol dependence with withdrawal, unspecified Status: Resolved Plan: see below (12) Physical deconditioning Code(s): R53.81 - Other malaise Status: Acute <Sin Victoria - 02/17/18 14:20> - Assessment and Plan Patient is a 52-year-old male with medical history significant for alcoholism, cirrhosis, and esophageal varices who was admitted with esophageal varices, status post banding x4. He has had altered mental status for most of his hospitalization. He was intubated, and then extubated on 01/27. Repeat EGD on 02/05 showed no active bleed. He has significant physical deconditioning from his hospitalization. He is now working with physical therapy 7 days a week. Their recommendation for his deconditioning is that he go home with home health or to a intermediate facility for rehab. His insurance is not wanting to cover either of these options at this time. On 02/14 he he developed pain and difficulty extending the left hip. He was found to have an area concerning for abscess on MRI. CT was more consistent with hematoma. Sepsis secondary to suspected iliopsoas abscess: Met sepsis criteria with fever and pulse rate in the 90s. Complaint of inability to move left leg on 02/13/18. His ability to move the left leg is stable from yesterday. MRI showed potential iliopsoas abscess, CT was more consistent with hematoma, however with his oscillating fevers and leukocytosis, treatment for abscess is still appropriate at this time. He was afebrile without leukocytosis today -Vancomycin and Zosyn for suspected abscess -Blood cultures drawn 02/14 show no growth thus far Significant pain in the area, Toradol 10 mg 4 times daily started Physical deconditioning: Physical therapy 7 days a week is ordered. Most recent PT recommendation is PT at rehab with a wheeled walker. -Continue physical therapy Depression and anxiety: He does have a history of depression and has been on psychoactive medication in the past. He says that he is on gabapentin which helps with his depression and anxiety, and also Depakote. He is unsure what other medications he has been on. He reports that he is more depressed because he is stuck in the hospital with no one to talk to. Psychiatry consulted. Pastoral care consult -Prozac 10 daily -Gabapentin 400 mg 3 times daily started, can increase to 600 -Home medication Depakote continued Esophageal varices in the context of cirrhosis: He is status post banding x4 at the beginning of this hospitalization. H&H stable. EGD repeated without active bleeds 02/05, gastroenterology has signed off. His altered mental status is likely secondary to his liver disease. We are unsure of his baseline, however he is significantly less confused now. He is now oriented x3. -Continue lactulose 4 times a day and Xifaxan 550 twice daily, he has been refusing his lactulose due to an inability to make it to the bedside, -P.o. Protonix twice daily -Propranolol 40mg BID Pressure ulcers: Stage I sacral ulcer and stage I pressure ulcer of the right heel -Wound care nurse was consulted, please see their note for current wound care recommendations Hypertension: Amlodipine discontinued due to borderline hypotension, BP has been stable since -Bumex 0.5 mg daily -Propranolol as above Hyperlipidemia: -Continue home medication pravastatin 40 mg p.o. nightly Hypokalemia: -He has had some mild hypokalemia throughout his hospitalization. -Monitor and correct as needed Type 2 diabetes mellitus: He is continued to have blood sugars in the 100s and low 200s -Continue low dose SS insulin -70/30: 20 units BID DVT of brachial vein (right): Last ultrasound on 01/28 was negative for DVT, DVT last seen the ultrasound on 01/19. -Lovenox 40mg daily Alcohol withdrawal: resolved He has a significant history of alcohol abuse and had been receiving treatment at [facility]. He had not been sober at the time of admission. He was transferred to the ICU secondary to withdraw. This has now resolved and he is not currently on any benzodiazepines. Fluids: Adequate p.o. intake Electrolytes: monitor and replete as needed. Nutrition: Regular diet GI prophylaxis: PO Protonix VTE prophylaxis: Lovenox 40mg q24h <Sin Victoria - 02/17/18 14:24> - Attending Attestation See the residents documentation for details. I saw and evaluated the patient regarding the manley portions of this evaluation and agree with the residents findings and plans as written. Parts of this note were created using [employer] voice recognition software program. While efforts were made to correct any mistakes made by this software, some mistakes, errors, and omissions may remain in the final note that were not caught when the note was originally created. Plan of care was discussed and agreed upon with the patient as specifically documented in the above note. An opportunity to ask questions with explanation was provided. Patient voiced understanding on all information reviewed and discussed. <Antelmo Olvera - 02/17/18 15:41>
[2018-02-17] MEDS: Ferrous Sulfate 325 MG Tablet PO SCH ×2 (13:23→16:55)
[2018-02-17] MEDS: Enoxaparin Inj 40 MG/0.4 ML Syringe SQ SCH (14:44)
--- NOTE | 2018-02-17 16:30 | P.PNPL ---
Subjective Interval history: 52 YO male with GIB, cirrhosis Developed resp distress, agitation Extubated 01/27 Alert, awake, follows commands Denies sob No cough or sp Physical Exam Vital signs: Vital Signs 02/16/18 20:00 02/17/18 00:00 02/17/18 04:00 Temperature 97.1 F L 97.2 F L 97.4 F L Pulse Rate 87 91 H 93 H Respiratory Rate 18 18 17 Blood Pressure 126/71 131/76 Pulse Oximetry 97 94 L 93 L 02/17/18 08:00 02/17/18 12:00 Temperature 99 F 99.6 F Pulse Rate 87 84 Respiratory Rate 20 20 Blood Pressure 123/62 118/71 Pulse Oximetry 97 97 Intake & Output 02/16/18 02/17/18 02/17/18 18:59 06:59 18:59 Intake Total 617 / 617 2617 / 2617 50 / 50 Output Total 400 / 400 Balance 617 / 617 2217 / 2217 50 / 50 Weight 94 kg Intake: IV 617 / 617 617 / 617 50 / 50 Zosyn 3.375 GM Premix 50 ML @ 100 / 100 100 / 100 50 / 50 100 mls/hr IV.SIG Q6H MANUEL Rx#: [id number] Vancomycin Inj 1,700 MG In NS 517 / 517 517 / 517 Inj 500 ML @ 250 mls/hr IV.SIG Q12H MANUEL Rx#:[id number] Oral 1999 Output: Urine 400 / 400 Other: # Urine Diapers 4 Date of Last Bowel Movement 02/16/18 02/17/18 # Bowel Movements 3 # Incontinent Bowel Movements 2 GENERAL: WBWN NAD SKIN: Warm and dry. HEAD: Normocephalic. EYES: No scleral icterus. No injection or drainage. NECK: Supple, trachea midline. No JVD or lymphadenopathy. CARDIOVASCULAR: Regular rate and rhythm without murmurs, gallops, or rubs. RESPIRATORY: Breath sounds equal bilaterally. No accessory muscle use. GASTROINTESTINAL: Abdomen soft, non-tender, nondistended. MUSCULOSKELETAL: No cyanosis, or edema. BACK: Nontender without obvious deformity. No CVA tenderness. - Urinary Catheter Management Straight Cath placed during this visit: yes, but has since been removed by the nurse Reason for continuing: Not indwelling catheter Insertion date: 01/26/18 Insertion time: 17:30 Removal date: 01/26/18 Removal time: 17:35 Condom Cath placed during this visit: no 400 Cath placed during this visit: no Assessment and Plan - Plan IMPRESSION: 1. Mild shortness of breath and cough, possibly underlying asthma. 2. Hypertension. 3. Diabetes mellitus. 4. Cirrhosis of the liver. 5. VDRF, s/p extubation 01/27 6. Encephalopathy. PLAN: Protonix 40 mg daily Aerosol nebs SQ Lovenox Bumex 0.5 mg daily Stable on RA Monitor BS
[2018-02-17] MEDS: Gabapentin 300 MG Capsule PO SCH (17:01)
--- NOTE | 2018-02-17 19:24 | MB ---
cc: Nieves Edward MD DATE: 02/17/2018 REASON FOR CONSULTATION: Left leg weakness, numbness. HISTORY OF PRESENT ILLNESS: The patient is a 52-year-old man who has difficulty moving his left leg which started on 01/16/2018, I believe, after he states he had a fall. He was working with PT, trying to get up on the walker and he fell between the bedside commode and his walker. He states he has been having pain in his left quadriceps area. They were worried about an abscess, but it seems like it is more of a hematoma. He is on gabapentin, but still states it feels tingly as well as numb and there is pain to palpation. PAST MEDICAL HISTORY: He has a significant past medical history of cirrhosis, hypertension, diabetes, DVT of brachial vein, ethanol chronic use. PHYSICAL EXAMINATION: VITAL SIGNS: His vitals are stable. Currently, he has a blood pressure of 118/71, pulse 84, respiratory rate 20. He has a temperature currently at 99.6. Prior to that, it was 99 and 97.4. NEUROLOGIC: He is awake, alert. He is fluent. His pupils are reactive. Face symmetrical. Tongue midline. Motor: Upper extremities intact. Right leg antigravity. Left leg, he has trouble lifting it off the recliner. He is sitting in a recliner with his legs extended, but he can bend it at the knee. He has normal ankle dorsiflexion. Reflexes are blunted bilaterally, likely due to his diabetes. Sensory: He can feel pressure, temperature, light touch. Gait cannot be assessed. LABORATORY DATA: Reviewed. White count 6.4, hemoglobin 7.9, platelets 115,000. Chemistries: His glucose is 293. His last hemoglobin A1c was 6. His ammonia level was 38 today. Urine was not done recently. CURRENT MEDICATIONS: It seems like he is on Lovenox for DVT prevention. He is on Prozac. He is on gabapentin 400 mg t.i.d. He is on Vistaril, Toradol p.r.n. for pain, lidocaine patches for pain, vitamins, Protonix, antibiotic, Depakote. REPORTS: He did have a hip MRI that shows a probable left iliopsoas abscess and they recommended a CT scan. Abdomen and pelvis CT shows heterogeneous but mostly increased attenuation and swelling of the left iliopsoas and is more typical of an acute/subacute hematoma rather than an abscess. This may be posttraumatic, but likely related to they are saying anticoagulation or chronic liver disease. Cirrhosis and splenomegaly are seen, also slight mesenteric edema. IMPRESSION: Left leg weakness, likely related to his iliopsoas hematoma. I do not feel the area warm or red. Continue conservative management at this point. EMG/nerve conduction will not be of high yield since this is a recent event and it would take about 3 weeks for any changes. Recommend range of motion, getting him out of bed with assistance and having him try to weight bear. Increase his gabapentin from 400 mg t.i.d. to 600 mg t.i.d. We will discontinue Lidoderm patches. We will defer any pain medication to his primary team as he has other medical issues. He was asking for some pain medication. Might want to try some low dose pain medication prior to physical therapy. I will go ahead and increase his gabapentin. Continue current care. MD MARGARITA Solorio/domitila , 03:29 PM , 03:39 PM
[2018-02-18] MEDS: Oral Hygiene Kit OROPHARYNG SCH ×3 (00:29→12:58)
[2018-02-18] MEDS: Insulin NovoLOG Aspart Correctional Sugar Inj SQ SCH ×5 (00:43→23:06)
[2018-02-18] MEDS: Piperacil/Tazo 3.375 GM Premix 50 ML IV.SIG SCH ×4 (05:49→22:14)
[2018-02-18] MEDS: Artificial Tears Opth Drops 15 ML Bottle EACH EYE SCH ×3 (05:53→22:17)
[2018-02-18] MEDS: Vancomycin Inj 1,700 MG in Sodium Chlor 0.9% Inj 500 ML IV.SIG SCH (06:27)
[2018-02-18] MEDS: Ketorolac 10 MG Tablet PO PRN ×3 (06:28→18:55)
[2018-02-18 07:09] LABS: Baso # (Auto) 0.1 th/mm3 (0.0-0.2); Baso % (Auto) 1.2 % (0.0-2.0); Eos # (Auto) 0.3 th/mm3 (0.0-0.4); Eos % (Auto) 5.7 % (0.0-4.0); Hematocrit 23.2 % (39.0-51.0); Hemoglobin 7.7 gm/dL (13.0-17.0); Lymph # (Auto) 0.6 th/mm3 (1.0-4.8); Lymph % (Auto) 10.4 % (9.0-44.0); Mean Corpuscular HGB Conc 33.1 % (32.0-36.0); Mean Corpuscular Hemoglobin 27.9 pg (27.0-34.0); Mean Corpuscular Volume 84.2 fL (80.0-100.0); Mean Platelet Volume 7.7 fL (7.0-11.0); Mono % (Auto) 17.1 % (0.0-8.0); Neut # (Auto) 3.8 th/mm3 (1.8-7.7); Neut % (Auto) 65.6 % (16.0-70.0); Platelet Count 103 th/mm3 (150-450); Red Blood Count 2.76 mil/mm3 (4.50-5.90); Red Cell Distribution Width 23.3 % (11.6-17.2); White Blood Count 5.8 th/mm3 (4.0-11.0)
[2018-02-18 07:33] LABS: Carbon Dioxide 30.4 meq/L (21.0-32.0); Potassium 3.6 meq/L (3.5-5.1)
[2018-02-18] MEDS: Chlorhexidine 0.12% Oral Kit 15 ML UDC OROPHARYNG SCH (09:25)
[2018-02-18] MEDS: Lidocaine 5% Patch T-DERMAL SCH (09:30)
[2018-02-18] MEDS: rifAXIMin 550 MG Tablet PO SCH ×2 (09:32→22:15)
[2018-02-18] MEDS: Gabapentin 300 MG Capsule PO SCH ×3 (09:32→17:35)
[2018-02-18] MEDS: FLUoxetine 10 MG Capsule PO SCH (09:33)
[2018-02-18] MEDS: Multivit/Folic Acid/Minerals Chewable Tablets CHEW SCH (09:33)
[2018-02-18] MEDS: Senna/Docusate Sodium 8.6/50 MG Tablet PO SCH ×2 (09:33→22:16)
[2018-02-18] MEDS: Propranolol 40 MG Tablet PO SCH ×2 (09:34→22:16)
[2018-02-18] MEDS: Sodium Chloride 0.9% 2 ML Flush BID IV.FLUSH SCH ×2 (09:35→22:15)
--- NOTE | 2018-02-18 11:07 | P.PNFP ---
Subjective Interval history: There were no acute events overnight. He does not complain of any pain today. He continues to complain that he cannot move his left leg. Continues to have numbness of the left lateral thigh. he has no nausea, vomiting, fever, chills, chest pain, palpitations, shortness of breath, or change in bowel movements. <Sin Victoria - 02/18/18 11:07> Results - Labs Result diagrams: 02/19/18 07:38 02/19/18 04:47 <Antelmo Olvera - 02/19/18 13:53> Abnormal lab results 02/18/18 02/18/18 02/19/18 Range/Units 17:13 22:23 04:47 RBC (4.50-5.90) mil/mm3 Hgb (13.0-17.0) gm/dL Hct (39.0-51.0) % RDW (11.6-17.2) % Plt Count (150-450) th/mm3 [place] % (Auto) (0.0-8.0) % Eos % (Auto) (0.0-4.0) % Lymph # (Auto) (1.0-4.8) th/mm3 [place] # (Auto) (0.0-0.9) th/mm3 Platelet Estimate (Normal) Estimated GFR 59 L (>89) mL/min POC Glucose 159 H 167 H (68-110) mg/dl Ammonia (11-32) mcmol/L 02/19/18 02/19/18 02/19/18 Range/Units 06:06 07:38 07:38 RBC 2.87 L (4.50-5.90) mil/mm3 Hgb 8.1 L (13.0-17.0) gm/dL Hct 24.3 L (39.0-51.0) % RDW 23.4 H (11.6-17.2) % Plt Count 91 L (150-450) th/mm3 [place] % (Auto) 18.6 H (0.0-8.0) % Eos % (Auto) 5.3 H (0.0-4.0) % Lymph # (Auto) 0.6 L (1.0-4.8) th/mm3 [place] # (Auto) 1.1 H (0.0-0.9) th/mm3 Platelet Estimate Low L (Normal) Estimated GFR (>89) mL/min POC Glucose 194 H (68-110) mg/dl Ammonia 55 H (11-32) mcmol/L 02/19/18 Range/Units 11:43 RBC (4.50-5.90) mil/mm3 Hgb (13.0-17.0) gm/dL Hct (39.0-51.0) % RDW (11.6-17.2) % Plt Count (150-450) th/mm3 [place] % (Auto) (0.0-8.0) % Eos % (Auto) (0.0-4.0) % Lymph # (Auto) (1.0-4.8) th/mm3 [place] # (Auto) (0.0-0.9) th/mm3 Platelet Estimate (Normal) Estimated GFR (>89) mL/min POC Glucose 178 H (68-110) mg/dl Ammonia (11-32) mcmol/L Short CBC 02/19/18 Range/Units 07:38 WBC 6.1 (4.0-11.0) th/mm3 Hgb 8.1 L (13.0-17.0) gm/dL Hct 24.3 L (39.0-51.0) % Plt Count 91 L (150-450) th/mm3 BMP 02/19/18 04:47 Creatinine 1.27 <Antelmo Olvera - 02/19/18 13:53> Abnormal lab results 02/17/18 02/17/18 02/18/18 Range/Units 11:56 16:44 00:33 RBC (4.50-5.90) mil/mm3 Hgb (13.0-17.0) gm/dL Hct (39.0-51.0) % RDW (11.6-17.2) % Plt Count (150-450) th/mm3 [place] % (Auto) (0.0-8.0) % Eos % (Auto) (0.0-4.0) % Lymph # (Auto) (1.0-4.8) th/mm3 [place] # (Auto) (0.0-0.9) th/mm3 Estimated GFR (>89) mL/min POC Glucose 293 H 151 H 228 H (68-110) mg/dl Random Glucose (74-106) mg/dL Calcium (8.5-10.1) mg/dL 02/18/18 02/18/18 02/18/18 Range/Units 05:32 06:28 06:28 RBC 2.76 L (4.50-5.90) mil/mm3 Hgb 7.7 L (13.0-17.0) gm/dL Hct 23.2 L (39.0-51.0) % RDW 23.3 H (11.6-17.2) % Plt Count 103 L (150-450) th/mm3 [place] % (Auto) 17.1 H (0.0-8.0) % Eos % (Auto) 5.7 H (0.0-4.0) % Lymph # (Auto) 0.6 L (1.0-4.8) th/mm3 [place] # (Auto) 1.0 H (0.0-0.9) th/mm3 Estimated GFR 60 L (>89) mL/min POC Glucose 174 H (68-110) mg/dl Random Glucose 153 H (74-106) mg/dL Calcium 8.0 L (8.5-10.1) mg/dL Short CBC 02/18/18 Range/Units 06:28 WBC 5.8 (4.0-11.0) th/mm3 Hgb 7.7 L (13.0-17.0) gm/dL Hct 23.2 L (39.0-51.0) % Plt Count 103 L (150-450) th/mm3 BMP 02/18/18 06:28 Sodium 140 Potassium 3.6 Chloride 103 Carbon Dioxide 30.4 BUN 9 Creatinine 1.26 Calcium 8.0 L <Sin Victoria - 02/18/18 11:07> Physical Exam Vital signs: Vital Signs 02/18/18 16:00 02/18/18 20:00 02/19/18 00:00 Temperature 100.4 F H 99.1 F 98.6 F Pulse Rate 87 92 H 83 Respiratory Rate 18 20 18 Blood Pressure 119/57 L 132/69 142/79 H Pulse Oximetry 96 98 96 02/19/18 04:00 02/19/18 08:00 02/19/18 12:00 Temperature 99.6 F 100.3 F H 96.9 F L Pulse Rate 86 82 84 Respiratory Rate 20 18 18 Blood Pressure 134/64 160/78 H 134/81 Pulse Oximetry 97 97 95 Intake & Output 02/18/18 02/19/18 02/19/18 18:59 06:59 18:59 Intake Total 1257 / 1257 1097.5 / 1097.5 Output Total 2475 / 2475 395 / 395 350 / 350 Balance -1218 / -1218 702.5 / 702.5 -350 / -350 Intake: IV 617 / 617 617.5 / 617.5 Zosyn 3.375 GM Premix 50 ML @ 100 / 100 100 / 100 100 mls/hr IV.SIG Q6H MANUEL Rx#: [id number] Vancomycin Inj 1,750 MG In NS 517 / 517 517.5 / 517.5 Inj 500 ML @ 258.75 mls/hr IV. SIG Q18H MANUEL Rx#:[id number] Oral 640 / 640 480 / 480 Output: Urine 2475 / 2475 395 / 395 350 / 350 Other: Date of Last Bowel Movement 02/18/18 02/18/18 02/19/18 # Bowel Movements 4 0 <Antelmo Olvera - 02/19/18 13:53> Vital Signs 02/17/18 12:00 02/17/18 16:00 02/17/18 20:00 Temperature 99.6 F 99.3 F 99.1 F Pulse Rate 90 77 86 Respiratory Rate 18 20 20 Blood Pressure 118/71 127/73 115/61 Pulse Oximetry 97 96 95 02/18/18 00:00 02/18/18 04:00 02/18/18 08:00 Temperature 98.1 F 97.8 F 98.1 F Pulse Rate 95 H 85 82 Respiratory Rate 20 20 18 Blood Pressure 115/59 L 137/76 142/75 H Pulse Oximetry 96 96 98 Intake & Output 02/17/18 02/18/18 02/18/18 18:59 06:59 18:59 Intake Total 1817 / 1817 1337 / 1337 517 / 517 Output Total 900 / 900 1075 / 1075 Balance 917 / 917 262 / 262 517 / 517 Weight 98.6 kg Intake: IV 1117 / 1117 617 / 617 517 / 517 Zosyn 3.375 GM Premix 50 ML @ 100 / 100 100 / 100 100 mls/hr IV.SIG Q6H MANUEL Rx#: [id number] Vancomycin Inj 1,700 MG In NS 1017 / 1017 517 / 517 517 / 517 Inj 500 ML @ 250 mls/hr IV.SIG Q12H MANUEL Rx#:[id number] Oral 700 / 700 720 / 720 Output: Urine 900 / 900 1075 / 1075 Other: Date of Last Bowel Movement 02/17/18 02/17/18 # Bowel Movements 0 0 <Sin Victoria - 02/18/18 11:07> Narrative: General: Well-developed, alert, and in no acute distress. Neurologic: Oriented x3, depressed affect HEENT: Atraumatic, moist mucous membranes Neck: Supple, trachea midline Cardiac: Regular rate and rhythm without murmurs Pulmonary: Non-labored breathing. Lungs clear to auscultation bilaterally with good air movement Abdomen: Normal bowel sounds, soft, tender in the left lower quadrant to deep palpation without rebound or guarding Extremities: No edema, 2+ pedal pulses, capillary refill less than 2 seconds. Full passive ROM of the hip. No pain on logroll of the left leg or with any ROM. On the left he does not extend, flex, adduct, or abduct the hip or flex/ extend the knee. He is able to internally and externally rotate the left hip with full strength. 5/5 bl ankle strength, however on the left his plantar flexions has incomplete effort. Skin: right heel stage 1 ulcer and sacral ulcer, stable in appearance. <Sin Victoria - 02/18/18 11:07> - Urinary Catheter Management 400 Cath placed during this visit: no <Antelmo Olvera - 02/19/18 13:53> no <Sin Victoria - 02/18/18 11:07> Condom Cath placed during this visit: no <Antelmo Olvera - 02/19/18 13:53> no <Sin Victoria - 02/18/18 11:07> Straight Cath placed during this visit: no <Antelmo Olvera - 02/19/18 13:53> yes, but has since been removed by the nurse <Sin Victoria - 02/18/18 11:07> Reason for continuing: Not indwelling catheter <Sin Victoria - 11:07> Insertion date: 01/26/18 <Sin Victoria - 02/18/18 11:07> Insertion time: 17:30 <Sin Victoria - 02/18/18 11:07> Removal date: 01/26/18 <Sin Victoria - 02/18/18 11:07> Removal time: 17:35 <Sin Victoria - 02/18/18 11:07> Assessment and Plan - Assessment (1) Iliopsoas abscess on left Code(s): K68.12 - Psoas muscle abscess Status: Acute (2) Sepsis Code(s): A41.9 - Sepsis, unspecified organism Status: Acute (3) Esophageal varices in cirrhosis Code(s): K74.60 - Unspecified cirrhosis of liver; I85.10 - Secondary esophageal varices without bleeding Status: Chronic (4) Hypertension Code(s): I10 - Essential (primary) hypertension Status: Chronic (5) Alcohol abuse Code(s): F10.10 - Alcohol abuse, uncomplicated Status: Chronic (6) Depression with anxiety Code(s): F41.8 - Other specified anxiety disorders Status: Chronic (7) Cough Code(s): R05 - Cough Status: Resolved (8) Diabetes Code(s): E11.9 - Type 2 diabetes mellitus without complications Status: Chronic (9) Deep vein thrombosis (DVT) of brachial vein Code(s): I82.629 - Acute embolism and thrombosis of deep veins of unspecified upper extremity Status: Acute (10) Chest pain Code(s): R07.9 - Chest pain, unspecified Status: Resolved (11) Alcohol withdrawal Code(s): F10.239 - Alcohol dependence with withdrawal, unspecified Status: Resolved (12) Physical deconditioning Code(s): R53.81 - Other malaise Status: Acute <Antelmo Olvera - 02/19/18 13:53> (1) Iliopsoas abscess on left Code(s): K68.12 - Psoas muscle abscess Status: Acute (2) Sepsis Code(s): A41.9 - Sepsis, unspecified organism Status: Acute (3) Esophageal varices in cirrhosis Code(s): K74.60 - Unspecified cirrhosis of liver; I85.10 - Secondary esophageal varices without bleeding Status: Chronic Plan: see below (4) Hypertension Code(s): I10 - Essential (primary) hypertension Status: Chronic Plan: see below (5) Alcohol abuse Code(s): F10.10 - Alcohol abuse, uncomplicated Status: Chronic Plan: see below (6) Depression with anxiety Code(s): F41.8 - Other specified anxiety disorders Status: Chronic Plan: see below (7) Cough Code(s): R05 - Cough Status: Resolved Plan: see below (8) Diabetes Code(s): E11.9 - Type 2 diabetes mellitus without complications Status: Chronic Plan: See below (9) Deep vein thrombosis (DVT) of brachial vein Code(s): I82.629 - Acute embolism and thrombosis of deep veins of unspecified upper extremity Status: Acute Plan: See below (10) Chest pain Code(s): R07.9 - Chest pain, unspecified Status: Resolved Plan: see below (11) Alcohol withdrawal Code(s): F10.239 - Alcohol dependence with withdrawal, unspecified Status: Resolved Plan: see below (12) Physical deconditioning Code(s): R53.81 - Other malaise Status: Acute <Sin Victoria - 02/18/18 10:51> - Assessment and Plan Patient is a 52-year-old male with medical history significant for alcoholism, cirrhosis, and esophageal varices who was admitted with esophageal varices, status post banding x4. He has had altered mental status for most of his hospitalization. He was intubated, and then extubated on 01/27. Repeat EGD on 02/05 showed no active bleed. He has significant physical deconditioning from his hospitalization. He is now working with physical therapy 7 days a week. Their recommendation for his deconditioning is that he go home with home health or to a nursing home facility for rehab. His insurance is not wanting to cover either of these options at this time. On 02/14 he he developed pain and difficulty extending the left hip. He was found to have an area concerning for abscess on MRI. CT was more consistent with hematoma. Sepsis secondary to suspected iliopsoas abscess: Met sepsis criteria with fever and pulse rate in the 90s. Complaint of inability to move left leg on 02/13/18. His ability to move the left leg is stable from yesterday. MRI showed potential iliopsoas abscess, CT was more consistent with hematoma, however with his oscillating fevers and leukocytosis, treatment for abscess is still appropriate at this time. He has now been afebrile and without leukocytosis. -Vancomycin and Zosyn for suspected abscess -Blood cultures drawn 02/14 show no growth thus far Significant pain in the area, Toradol 10 mg 4 times daily started Physical deconditioning: Physical therapy 7 days a week is ordered. Most recent PT recommendation is PT at rehab with a wheeled walker. -Continue physical therapy -His inability to move the leg may be related to his abscess, however he does not have any muscular response when asked to elevate and his ability to internally/externally rotate it as well has distally intact strength excludes many muscular and neurogenic causes of weakness. This may have a psychologic cause. Depression and anxiety: He does have a history of depression and has been on psychoactive medication in the past. He says that he is on gabapentin which helps with his depression and anxiety, and also Depakote. He is unsure what other medications he has been on. He reports that he is more depressed because he is stuck in the hospital with no one to talk to. Psychiatry consulted. Pastoral care consult -Prozac 10 daily -Gabapentin 600 mg 3 times daily started, can increase to 600 -Home medication Depakote continued Esophageal varices in the context of cirrhosis: He is status post banding x4 at the beginning of this hospitalization. H&H stable. EGD repeated without active bleeds 02/05, gastroenterology has signed off. His altered mental status is likely secondary to his liver disease. We are unsure of his baseline, however he is significantly less confused now. He is now oriented x3. -Continue lactulose 4 times a day and Xifaxan 550 twice daily, he has been refusing his lactulose due to an inability to make it to the bedside, -P.o. Protonix twice daily -Propranolol 40mg BID Pressure ulcers: Stage I sacral ulcer and stage I pressure ulcer of the right heel -Wound care nurse was consulted, please see their note for current wound care recommendations Hypertension: Amlodipine discontinued due to borderline hypotension, BP has been stable since -Bumex 0.5 mg daily -Propranolol as above Hyperlipidemia: -Continue home medication pravastatin 40 mg p.o. nightly Hypokalemia: -He has had some mild hypokalemia throughout his hospitalization. -Monitor and correct as needed Type 2 diabetes mellitus: He is continued to have blood sugars in the 100s and low 200s -Continue low dose SS insulin -70/30: 20 units BID DVT of brachial vein (right): Last ultrasound on 01/28 was negative for DVT, DVT last seen the ultrasound on 01/19. -Lovenox 40mg daily Alcohol withdrawal: resolved He has a significant history of alcohol abuse and had been receiving treatment at [facility]. He had not been sober at the time of admission. He was transferred to the ICU secondary to withdraw. This has now resolved and he is not currently on any benzodiazepines. Fluids: Adequate p.o. intake Electrolytes: monitor and replete as needed. Nutrition: Regular diet GI prophylaxis: PO Protonix VTE prophylaxis: Lovenox 40mg q24h <Sin Victoria - 02/18/18 11:07> - Attending Attestation See the residents documentation for details. I saw and evaluated the patient regarding the [place] portions of this evaluation and agree with the residents findings and plans as written. Parts of this note were created using [employer] voice recognition software program. While efforts were made to correct any mistakes made by this software, some mistakes, errors, and omissions may remain in the final note that were not caught when the note was originally created. Plan of care was discussed and agreed upon with the patient as specifically documented in the above note. An opportunity to ask questions with explanation was provided. Patient voiced understanding on all information reviewed and discussed. <Antelmo Olvera - 02/19/18 13:53>
--- NOTE | 2018-02-18 11:12 | P.PNPL ---
Subjective Interval history: 52 YO male with GIB, cirrhosis Developed resp distress, agitation Extubated 01/27 Alert, awake, follows commands Denies sob No cough or sp Already had 3 BM ,no abd pain Physical Exam Vital signs: Vital Signs 02/17/18 12:00 02/17/18 16:00 02/17/18 20:00 Temperature 99.6 F 99.3 F 99.1 F Pulse Rate 90 77 86 Respiratory Rate 18 20 20 Blood Pressure 118/71 127/73 115/61 Pulse Oximetry 97 96 95 02/18/18 00:00 02/18/18 04:00 02/18/18 08:00 Temperature 98.1 F 97.8 F 98.1 F Pulse Rate 95 H 85 82 Respiratory Rate 20 20 18 Blood Pressure 115/59 L 137/76 142/75 H Pulse Oximetry 96 96 98 Intake & Output 02/17/18 02/18/18 02/18/18 18:59 06:59 18:59 Intake Total 1817 / 1817 1337 / 1337 517 / 517 Output Total 900 / 900 1075 / 1075 Balance 917 / 917 262 / 262 517 / 517 Weight 98.6 kg Intake: IV 1117 / 1117 617 / 617 517 / 517 Zosyn 3.375 GM Premix 50 ML @ 100 / 100 100 / 100 100 mls/hr IV.SIG Q6H MANUEL Rx#: [id number] Vancomycin Inj 1,700 MG In NS 1017 / 1017 517 / 517 517 / 517 Inj 500 ML @ 250 mls/hr IV.SIG Q12H MANEUL Rx#:[id number] Oral 700 / 700 720 / 720 Output: Urine 900 / 900 1075 / 1075 Other: Date of Last Bowel Movement 02/17/18 02/17/18 # Bowel Movements 0 0 GENERAL: WBWN NAD SKIN: Warm and dry. HEAD: Normocephalic. EYES: No scleral icterus. No injection or drainage. NECK: Supple, trachea midline. No JVD or lymphadenopathy. CARDIOVASCULAR: Regular rate and rhythm without murmurs, gallops, or rubs. RESPIRATORY: Breath sounds equal bilaterally. No accessory muscle use. GASTROINTESTINAL: Abdomen soft, non-tender, nondistended. MUSCULOSKELETAL: No cyanosis, or edema. BACK: Nontender without obvious deformity. No CVA tenderness. - Urinary Catheter Management Straight Cath placed during this visit: yes, but has since been removed by the nurse Reason for continuing: Not indwelling catheter Insertion date: 01/26/18 Insertion time: 17:30 Removal date: 01/26/18 Removal time: 17:35 Condom Cath placed during this visit: no 400 Cath placed during this visit: no Assessment and Plan - Plan IMPRESSION: 1. Mild shortness of breath and cough, possibly underlying asthma. 2. Hypertension. 3. Diabetes mellitus. 4. Cirrhosis of the liver. 5. VDRF, s/p extubation 01/27 6. Encephalopathy. PLAN: Protonix 40 mg daily Aerosol nebs SQ Lovenox 40 mg daily Bumex 0.5 mg daily Stable on RA Monitor BS
[2018-02-18] MEDS: Ferrous Sulfate 325 MG Tablet PO SCH ×2 (11:33→17:35)
[2018-02-18] MEDS: Enoxaparin Inj 40 MG/0.4 ML Syringe SQ SCH (14:30)
[2018-02-18] MEDS: Vancomycin Inj 1,750 MG in Sodium Chlor 0.9% Inj 500 ML IV.SIG SCH (23:04)
[2018-02-19] MEDS: Piperacil/Tazo 3.375 GM Premix 50 ML IV.SIG SCH ×4 (05:54→23:50)
[2018-02-19] MEDS: Artificial Tears Opth Drops 15 ML Bottle EACH EYE SCH ×3 (06:08→21:11)
[2018-02-19] MEDS: Insulin NovoLOG Aspart Correctional Sugar Inj SQ SCH ×4 (06:23→23:52)
[2018-02-19] MEDS: Ketorolac 10 MG Tablet PO PRN ×3 (06:23→18:40)
[2018-02-19 08:04] LABS: Baso # (Auto) 0.1 th/mm3 (0.0-0.2); Baso % (Auto) 0.9 % (0.0-2.0); Eos # (Auto) 0.3 th/mm3 (0.0-0.4); Eos % (Auto) 5.3 % (0.0-4.0); Hematocrit 24.3 % (39.0-51.0); Hemoglobin 8.1 gm/dL (13.0-17.0); Lymph # (Auto) 0.6 th/mm3 (1.0-4.8); Lymph % (Auto) 9.4 % (9.0-44.0); Mean Corpuscular HGB Conc 33.3 % (32.0-36.0); Mean Corpuscular Hemoglobin 28.3 pg (27.0-34.0); Mean Corpuscular Volume 84.9 fL (80.0-100.0); Mean Platelet Volume 7.5 fL (7.0-11.0); Mono # (Auto) 1.1 th/mm3 (0.0-0.9); Mono % (Auto) 18.6 % (0.0-8.0); Neut % (Auto) 65.8 % (16.0-70.0); Platelet Count 91 th/mm3 (150-450); Red Blood Count 2.87 mil/mm3 (4.50-5.90); Red Cell Distribution Width 23.4 % (11.6-17.2); White Blood Count 6.1 th/mm3 (4.0-11.0)
[2018-02-19 08:50] LABS: Platelet Morphology Normal (Normal)
[2018-02-19] MEDS: Multivit/Folic Acid/Minerals Chewable Tablets CHEW SCH (09:00)
[2018-02-19] MEDS: rifAXIMin 550 MG Tablet PO SCH ×2 (09:00→21:08)
[2018-02-19] MEDS: Propranolol 40 MG Tablet PO SCH ×2 (09:00→21:08)
[2018-02-19] MEDS: Sodium Chloride 0.9% 2 ML Flush BID IV.FLUSH SCH ×2 (09:01→21:10)
[2018-02-19] MEDS: Lidocaine 5% Patch T-DERMAL SCH (09:01)
[2018-02-19] MEDS: Senna/Docusate Sodium 8.6/50 MG Tablet PO SCH ×2 (09:01→23:20)
[2018-02-19] MEDS: Gabapentin 300 MG Capsule PO SCH ×3 (09:01→17:17)
[2018-02-19] MEDS: FLUoxetine 10 MG Capsule PO SCH (09:01)
--- NOTE | 2018-02-19 10:52 | P.PNPAL ---
Reason for Visit Reason for visit: a. To assist with evaluation and management of symptoms including: weakness, pain b. To assist medical decision maker(s) with: better understanding of current medical conditions; weighing benefits/burdens of medical treatment options; making medical treatment decisions. Subjective Subjective/Interval History: This is a 52-year-old male with a history of alcohol abuse, esophageal varices and GI bleed who presented to the emergency room 01/15 after a few days of generalized abdominal pains, 09/17, with associated nausea and vomiting over 10 times in the prior 24 hours, chills, dizziness. He describes his pain as periumbilical, cramping without radiation. He had been following at [facility] for alcohol cessation but had not been compliant and had continued to drink. Patient is seen today for medically necessary visit on symptom management of pain and weakness. Patient remains weak, especially the left leg since he fell 02/11 tween the commode and the bed. Leg continues to buckle doing standing marching with physical therapy. PT list left hip flexor 3-/5, left quad 0/5. He requires wheeled walker with standing or movement. He remains painful in the left leg. Hip MRI favors the possibility of an abscess, but absent any other signs of infection and recent trauma from fall on 02/11, hematoma of the iliopsoas muscle is favored per CT of the abdomen and pelvis. Neurology evaluated, opined that it was likely a hematoma and felt that EMG studies would not yield sufficient results and recommended increasing gabapentin, continuing physical therapy and pain management. . Family/Friend Interactions: Multiple attempts have been made to contact family through Google searches, [employer] and social media unsuccessfully. The patient does not have the information with him but states that he does have it [facility] . Advance Directives Living Will: Never completed Durable Power of Freight Booker: Never completed Objective Vital Signs: Vital Signs 02/18/18 12:00 02/18/18 16:00 02/18/18 20:00 Temperature 97.9 F 100.4 F H 99.1 F Pulse Rate 81 87 92 H Respiratory Rate 16 18 20 Blood Pressure 128/74 119/57 L 132/69 Pulse Oximetry 96 96 98 02/19/18 00:00 02/19/18 04:00 02/19/18 08:00 Temperature 98.6 F 99.6 F 100.3 F H Pulse Rate 83 86 83 Respiratory Rate 18 20 18 Blood Pressure 142/79 H 134/64 160/78 H Pulse Oximetry 96 97 97 Intake & Output 02/18/18 02/19/18 02/19/18 18:59 06:59 18:59 Intake Total 1257 / 1257 1097.5 / 1097.5 Output Total 2475 / 2475 395 / 395 350 / 350 Balance -1218 / -1218 702.5 / 702.5 -350 / -350 Intake: IV 617 / 617 617.5 / 617.5 Zosyn 3.375 GM Premix 50 ML @ 100 / 100 100 / 100 100 mls/hr IV.SIG Q6H MANUEL Rx#: [id number] Vancomycin Inj 1,750 MG In NS 517 / 517 517.5 / 517.5 Inj 500 ML @ 258.75 mls/hr IV. SIG Q18H MANUEL Rx#:[id number] Oral 640 / 640 480 / 480 Output: Urine 2475 / 2475 395 / 395 350 / 350 Other: Date of Last Bowel Movement 02/18/18 02/18/18 # Bowel Movements 4 0 Physical Exam: CONSTITUTIONAL/GENERAL: This is an adequately nourished patient, in no apparent distress. TUBES/LINES/DRAINS: PIV LFA CARDIOVASCULAR: Regular rate and rhythm without murmurs, gallops, or rubs. No JVD. Peripheral pulses symmetric. RESPIRATORY/CHEST: Symmetric, unlabored respirations. Clear to auscultation. Breath sounds equal bilaterally. No wheezes, rales, or rhonchi. GASTROINTESTINAL: Abdomen soft, non-tender, nondistended. No guarding. Bowel sounds present. GENITOURINARY: Without palpable bladder distension. MUSCULOSKELETAL: Left leg weakness, decreased sensation from thigh to ankle, sharp stabbing pains 10/10 constant LYMPHATICS: No palpable cervical or supraclavicular adenopathy. NEUROLOGICAL: Awake and alert. Motor and sensory grossly within normal limits. Follows commands. Cognitively slow. Moves all extremities. PSYCHIATRIC: States he is depressed, flat affect. . Diagnostic Tests Laboratory: Laboratory Results - last 72 hr 02/16/18 02/16/18 02/16/18 13:00 17:19 21:04 WBC RBC Hgb Hct MCV MCH MCHC RDW Plt Count MPV Prelim Diff (Auto) Neut % (Auto) Lymph % (Auto) Atlantic % (Auto) Eos % (Auto) Baso % (Auto) Neut # (Auto) Lymph # (Auto) Atlantic # (Auto) Eos # (Auto) Baso # (Auto) WBC Differential Diff Scan Differential Comment Platelet Estimate Platelet Morphology Sodium Potassium Chloride Carbon Dioxide Anion Gap BUN Creatinine Estimated GFR POC Glucose 209 H 172 H 255 H Random Glucose Calcium Ammonia Vancomycin Trough 02/16/18 02/17/18 02/17/18 23:08 05:25 06:50 WBC RBC Hgb Hct MCV MCH MCHC RDW Plt Count MPV Prelim Diff (Auto) Neut % (Auto) Lymph % (Auto) Atlantic % (Auto) Eos % (Auto) Baso % (Auto) Neut # (Auto) Lymph # (Auto) Atlantic # (Auto) Eos # (Auto) Baso # (Auto) WBC Differential Diff Scan Differential Comment Platelet Estimate Platelet Morphology Sodium Potassium Chloride Carbon Dioxide Anion Gap BUN Creatinine Estimated GFR POC Glucose 230 H 164 H Random Glucose Calcium Ammonia 38 H Vancomycin Trough 02/17/18 02/17/18 02/17/18 06:50 06:50 11:56 WBC 6.4 RBC 2.91 L Hgb 7.9 L Hct 24.7 L MCV 84.6 MCH 27.2 MCHC 32.1 RDW 23.6 H Plt Count 115 L MPV 7.7 Prelim Diff (Auto) Neut % (Auto) 62.6 Lymph % (Auto) 12.0 Atlantic % (Auto) 17.4 H Eos % (Auto) 6.7 H Baso % (Auto) 1.3 Neut # (Auto) 4.0 Lymph # (Auto) 0.8 L Atlantic # (Auto) 1.1 H Eos # (Auto) 0.4 Baso # (Auto) 0.1 WBC Differential . Diff Scan Differential Comment Auto diff final Platelet Estimate Platelet Morphology Sodium 139 Potassium 3.5 Chloride 100 Carbon Dioxide 30.3 Anion Gap 9 BUN 9 Creatinine 0.88 Estimated GFR Greater than 89 POC Glucose 293 H Random Glucose 130 H Calcium 7.8 L Ammonia Vancomycin Trough 15.8 H 02/17/18 02/18/18 02/18/18 16:44 00:33 05:32 WBC RBC Hgb Hct MCV MCH MCHC RDW Plt Count MPV Prelim Diff (Auto) Neut % (Auto) Lymph % (Auto) Atlantic % (Auto) Eos % (Auto) Baso % (Auto) Neut # (Auto) Lymph # (Auto) Atlantic # (Auto) Eos # (Auto) Baso # (Auto) WBC Differential Diff Scan Differential Comment Platelet Estimate Platelet Morphology Sodium Potassium Chloride Carbon Dioxide Anion Gap BUN Creatinine Estimated GFR POC Glucose 151 H 228 H 174 H Random Glucose Calcium Ammonia Vancomycin Trough 02/18/18 02/18/18 02/18/18 06:28 06:28 11:41 WBC 5.8 RBC 2.76 L Hgb 7.7 L Hct 23.2 L MCV 84.2 MCH 27.9 MCHC 33.1 RDW 23.3 H Plt Count 103 L MPV 7.7 Prelim Diff (Auto) Neut % (Auto) 65.6 Lymph % (Auto) 10.4 Atlantic % (Auto) 17.1 H Eos % (Auto) 5.7 H Baso % (Auto) 1.2 Neut # (Auto) 3.8 Lymph # (Auto) 0.6 L Atlantic # (Auto) 1.0 H Eos # (Auto) 0.3 Baso # (Auto) 0.1 WBC Differential . Diff Scan Differential Comment Auto diff final Platelet Estimate Platelet Morphology Sodium 140 Potassium 3.6 Chloride 103 Carbon Dioxide 30.4 Anion Gap 7 BUN 9 Creatinine 1.26 Estimated GFR 60 L POC Glucose 239 H Random Glucose 153 H Calcium 8.0 L Ammonia Vancomycin Trough 02/18/18 02/18/18 02/19/18 17:13 22:23 04:47 WBC RBC Hgb Hct MCV MCH MCHC RDW Plt Count MPV Prelim Diff (Auto) Neut % (Auto) Lymph % (Auto) Atlantic % (Auto) Eos % (Auto) Baso % (Auto) Neut # (Auto) Lymph # (Auto) Atlantic # (Auto) Eos # (Auto) Baso # (Auto) WBC Differential Diff Scan Differential Comment Platelet Estimate Platelet Morphology Sodium Potassium Chloride Carbon Dioxide Anion Gap BUN Creatinine 1.27 Estimated GFR 59 L POC Glucose 159 H 167 H Random Glucose Calcium Ammonia Vancomycin Trough 02/19/18 02/19/18 02/19/18 06:06 07:38 07:38 WBC 6.1 RBC 2.87 L Hgb 8.1 L Hct 24.3 L MCV 84.9 MCH 28.3 MCHC 33.3 RDW 23.4 H Plt Count 91 L MPV 7.5 Prelim Diff (Auto) Slide review pending Neut % (Auto) 65.8 Lymph % (Auto) 9.4 Atlantic % (Auto) 18.6 H Eos % (Auto) 5.3 H Baso % (Auto) 0.9 Neut # (Auto) 4.0 Lymph # (Auto) 0.6 L Atlantic # (Auto) 1.1 H Eos # (Auto) 0.3 Baso # (Auto) 0.1 WBC Differential . Diff Scan Auto diff confirmed Differential Comment . Platelet Estimate Low L Platelet Morphology Normal Sodium Potassium Chloride Carbon Dioxide Anion Gap BUN Creatinine Estimated GFR POC Glucose 194 H Random Glucose Calcium Ammonia 55 H Vancomycin Trough Result Diagrams: 02/19/18 07:38 02/19/18 04:47 Microbiology: Microbiology 02/18/18 11:40 Stool Occult Blood (TUSHAR) - Final Stool Hemoccult negative 02/14/18 23:10 Aerobic Blood Culture - Preliminary Blood - Peripheral No growth in 4 days Anaerobic Blood Culture - Final QNS - See aerobic report. 02/14/18 23:18 Aerobic Blood Culture - Preliminary Blood - Peripheral No growth in 4 days Anaerobic Blood Culture - Final QNS - See aerobic report. Procedures: 01/16: EGD with esophageal banding. 01/20: Intubation . 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 He moved to [place] 24 years ago. He was to his for 25 years prior to her 2 years ago. He has no children. He has 3 brothers but does not have contact information with him for any of them. One lives in [place], one in [place] and one in [place]. Spiritual: He is a [employer] Legal: No advance directives completed. Ethical issues impacting care: [facility] and has intermittent confusion when ammonia levels are elevated. . Important Contacts: Brother: Pillo Koroma, number unknown at this time . Prognosis: His prognosis is guarded. He has significant cirrhosis with recurrent ascites, esophageal varices and portal hypertension. He continues to drink in spite of being on a cessation protocol through [facility]. His ammonia is chronically elevated requiring lactulose every 4 hours and he has been noncompliant with medical therapy. It is unlikely that he will continue his medications once discharged and may also have difficulty maintaining alcohol cessation. He is at elevated risk of continued complications and decline. . Code Status: Full Code Plan: PLAN: Legal decision maker: At this time he appears capacitated to make his own decisions. He is alert, oriented and answering appropriately. He has requested that his brother, Pillo Koroma, be his decision maker in case of his incapacitation, however at this time has no contact information for Pillo. Via Google search a possible number has been identified and a message left for call back to establish identity. Patient's mother is alive and would be the next tier decision-maker should the patient become incapacitated. No contact information is available for her at this time either. Goals: Aggressive CODE STATUS: FULL CODE SYMPTOMS: * Weakness: Generalized weakness, worse and left leg after fall on 02/11, presumably sustaining an iliopsoas hematoma versus abscess. Participating with PT but overall grossly debilitated. Due to his weakness he may not be able to return to his apartment at [facility] and without a firm discharge plan, [facility] will not entertain [facility]. He has no funding for rehabilitation. * Pain: Complains of left leg pain constant, worsening with movement and weightbearing up to 12/18, being treated with Toradol 10 mg p.o. every 6 as needed and gabapentin 600 mg 3 times daily, which he states is ineffective. He is receiving 3-4 doses of Toradol daily. Due to his liver compromise he is not a candidate acetaminophen based products. Renal indices are showing a slight increase over the prior 2 days. Could consider changing Prozac to Cymbalta evaluate effectiveness on pain, presumed to be caused by either abscess or hematoma of the iliopsoas muscle. Palliative care will continue to follow the patient during hospital course as condition evolves, to assist patient/decision-maker with understanding of their medical conditions, weighing benefits/burdens of treatment options, for clarification of goals of treatment. Additionally will assist with any symptoms of palliative concern. . Attestation Attestation: To help prompt me to consider important information that might be impacting today's encounter and assessment, information from prior notes written by myself or my colleagues may have been "brought forward" into today's note. My signature on this note, however, is an attestation that I personally performed the exam, history, and/or decision-making noted today, and, unless otherwise indicated, the interactions with patient, family, and staff as well as the review of records all occurred today. I also attest that the listed assessment and stated plan reflect my best clinical judgment today based on the combination of historical information, prior notes, and today's exam/ interactions. When time spent is documented, it refers only to time spent today by the signer, or if indicated, combined time spent today by collaborating physician/nurse practitioner. .
--- NOTE | 2018-02-19 11:07 | P.PNFP ---
Subjective Interval history: He had fever x1 overnight at 100.4. Today he is complaining of some pain when he moves his left leg. He is able to move it he denies subjective fever, chills , nausea, vomiting, chest pain, palpitations, shortness of breath. He reports that he was able to stand up with physical therapy yesterday. <Sin Victoria - 02/19/18 11:07> Results - Labs Result diagrams: 02/19/18 07:38 02/19/18 04:47 <Antelmo Olvera - 02/19/18 14:40> Abnormal lab results 02/18/18 02/18/18 02/19/18 Range/Units 17:13 22:23 04:47 RBC (4.50-5.90) mil/mm3 Hgb (13.0-17.0) gm/dL Hct (39.0-51.0) % RDW (11.6-17.2) % Plt Count (150-450) th/mm3 [place] % (Auto) (0.0-8.0) % Eos % (Auto) (0.0-4.0) % Lymph # (Auto) (1.0-4.8) th/mm3 [place] # (Auto) (0.0-0.9) th/mm3 Platelet Estimate (Normal) Estimated GFR 59 L (>89) mL/min POC Glucose 159 H 167 H (68-110) mg/dl Ammonia (11-32) mcmol/L 02/19/18 02/19/18 02/19/18 Range/Units 06:06 07:38 07:38 RBC 2.87 L (4.50-5.90) mil/mm3 Hgb 8.1 L (13.0-17.0) gm/dL Hct 24.3 L (39.0-51.0) % RDW 23.4 H (11.6-17.2) % Plt Count 91 L (150-450) th/mm3 [place] % (Auto) 18.6 H (0.0-8.0) % Eos % (Auto) 5.3 H (0.0-4.0) % Lymph # (Auto) 0.6 L (1.0-4.8) th/mm3 [place] # (Auto) 1.1 H (0.0-0.9) th/mm3 Platelet Estimate Low L (Normal) Estimated GFR (>89) mL/min POC Glucose 194 H (68-110) mg/dl Ammonia 55 H (11-32) mcmol/L 02/19/18 Range/Units 11:43 RBC (4.50-5.90) mil/mm3 Hgb (13.0-17.0) gm/dL Hct (39.0-51.0) % RDW (11.6-17.2) % Plt Count (150-450) th/mm3 [place] % (Auto) (0.0-8.0) % Eos % (Auto) (0.0-4.0) % Lymph # (Auto) (1.0-4.8) th/mm3 [place] # (Auto) (0.0-0.9) th/mm3 Platelet Estimate (Normal) Estimated GFR (>89) mL/min POC Glucose 178 H (68-110) mg/dl Ammonia (11-32) mcmol/L Short CBC 02/19/18 Range/Units 07:38 WBC 6.1 (4.0-11.0) th/mm3 Hgb 8.1 L (13.0-17.0) gm/dL Hct 24.3 L (39.0-51.0) % Plt Count 91 L (150-450) th/mm3 BMP 02/19/18 04:47 Creatinine 1.27 <Antelmo Olvera - 02/19/18 14:40> Abnormal lab results 02/18/18 02/18/18 02/18/18 Range/Units 11:41 17:13 22:23 RBC (4.50-5.90) mil/mm3 Hgb (13.0-17.0) gm/dL Hct (39.0-51.0) % RDW (11.6-17.2) % Plt Count (150-450) th/mm3 [place] % (Auto) (0.0-8.0) % Eos % (Auto) (0.0-4.0) % Lymph # (Auto) (1.0-4.8) th/mm3 [place] # (Auto) (0.0-0.9) th/mm3 Platelet Estimate (Normal) Estimated GFR (>89) mL/min POC Glucose 239 H 159 H 167 H (68-110) mg/dl Ammonia (11-32) mcmol/L 02/19/18 02/19/18 02/19/18 Range/Units 04:47 06:06 07:38 RBC 2.87 L (4.50-5.90) mil/mm3 Hgb 8.1 L (13.0-17.0) gm/dL Hct 24.3 L (39.0-51.0) % RDW 23.4 H (11.6-17.2) % Plt Count 91 L (150-450) th/mm3 [place] % (Auto) 18.6 H (0.0-8.0) % Eos % (Auto) 5.3 H (0.0-4.0) % Lymph # (Auto) 0.6 L (1.0-4.8) th/mm3 [place] # (Auto) 1.1 H (0.0-0.9) th/mm3 Platelet Estimate Low L (Normal) Estimated GFR 59 L (>89) mL/min POC Glucose 194 H (68-110) mg/dl Ammonia (11-32) mcmol/L 02/19/18 Range/Units 07:38 RBC (4.50-5.90) mil/mm3 Hgb (13.0-17.0) gm/dL Hct (39.0-51.0) % RDW (11.6-17.2) % Plt Count (150-450) th/mm3 [place] % (Auto) (0.0-8.0) % Eos % (Auto) (0.0-4.0) % Lymph # (Auto) (1.0-4.8) th/mm3 [place] # (Auto) (0.0-0.9) th/mm3 Platelet Estimate (Normal) Estimated GFR (>89) mL/min POC Glucose (68-110) mg/dl Ammonia 55 H (11-32) mcmol/L Short CBC 02/19/18 Range/Units 07:38 WBC 6.1 (4.0-11.0) th/mm3 Hgb 8.1 L (13.0-17.0) gm/dL Hct 24.3 L (39.0-51.0) % Plt Count 91 L (150-450) th/mm3 [facility] 02/19/18 04:47 Creatinine 1.27 <Sin Victoria - 02/19/18 11:07> Physical Exam Vital signs: Vital Signs 02/18/18 16:00 02/18/18 20:00 02/19/18 00:00 Temperature 100.4 F H 99.1 F 98.6 F Pulse Rate 87 92 H 83 Respiratory Rate 18 20 18 Blood Pressure 119/57 L 132/69 142/79 H Pulse Oximetry 96 98 96 02/19/18 04:00 02/19/18 08:00 02/19/18 12:00 Temperature 99.6 F 100.3 F H 96.9 F L Pulse Rate 86 82 86 Respiratory Rate 20 18 18 Blood Pressure 134/64 160/78 H 134/81 Pulse Oximetry 97 97 95 Intake & Output 02/18/18 02/19/18 02/19/18 18:59 06:59 18:59 Intake Total 1257 / 1257 1097.5 / 1097.5 Output Total 2475 / 2475 395 / 395 350 / 350 Balance -1218 / -1218 702.5 / 702.5 -350 / -350 Intake: IV 617 / 617 617.5 / 617.5 Zosyn 3.375 GM Premix 50 ML @ 100 / 100 100 / 100 100 mls/hr IV.SIG Q6H MANUEL Rx#: [id number] Vancomycin Inj 1,750 MG In NS 517 / 517 517.5 / 517.5 Inj 500 ML @ 258.75 mls/hr IV. SIG Q18H MANUEL Rx#:[id number] Oral 640 / 640 480 / 480 Output: Urine 2475 / 2475 395 / 395 350 / 350 Other: Date of Last Bowel Movement 02/18/18 02/18/18 02/19/18 # Bowel Movements 4 0 <Antelmo Olvera - 02/19/18 14:40> Vital Signs 02/18/18 12:00 02/18/18 16:00 02/18/18 20:00 Temperature 97.9 F 100.4 F H 99.1 F Pulse Rate 81 87 92 H Respiratory Rate 16 18 20 Blood Pressure 128/74 119/57 L 132/69 Pulse Oximetry 96 96 98 02/19/18 00:00 02/19/18 04:00 02/19/18 08:00 Temperature 98.6 F 99.6 F 100.3 F H Pulse Rate 83 86 82 Respiratory Rate 18 20 18 Blood Pressure 142/79 H 134/64 160/78 H Pulse Oximetry 96 97 97 Intake & Output 02/18/18 02/19/18 02/19/18 18:59 06:59 18:59 Intake Total 1257 / 1257 1097.5 / 1097.5 Output Total 2475 / 2475 395 / 395 350 / 350 Balance -1218 / -1218 702.5 / 702.5 -350 / -350 Intake: IV 617 / 617 617.5 / 617.5 Zosyn 3.375 GM Premix 50 ML @ 100 / 100 100 / 100 100 mls/hr IV.SIG Q6H MANUEL Rx#: [id number] Vancomycin Inj 1,750 MG In NS 517 / 517 517.5 / 517.5 Inj 500 ML @ 258.75 mls/hr IV. SIG Q18H MANUEL Rx#:[id number] Oral 640 / 640 480 / 480 Output: Urine 2475 / 2475 395 / 395 350 / 350 Other: Date of Last Bowel Movement 02/18/18 02/18/18 02/19/18 # Bowel Movements 4 0 <Sin Victoria - 02/19/18 11:07> Narrative: General: Well-developed, alert, and in no acute distress. Neurologic: Oriented x3, depressed affect HEENT: Atraumatic, moist mucous membranes Neck: Supple, trachea midline Cardiac: Regular rate and rhythm without murmurs Pulmonary: Non-labored breathing. Lungs clear to auscultation bilaterally with good air movement Abdomen: Normal bowel sounds, soft, nontender, even to deep palpation in the left lower quadrant. Extremities: No edema, 2+ pedal pulses, capillary refill less than 2 seconds. 5 /5 bilateral ankle strength. 5/5 right leg strength. Left leg: Full passive ROM of the hip without pain. Hip strength: 3/5 flexion, 4/5 extension, 5/5 internal and external rotation. 4/5 knee extension, 0/5 knee flexion.. Skin: right heel stage 1 ulcer and sacral ulcer, stable in appearance. <Sin Victoria - 02/19/18 11:07> - Urinary Catheter Management 400 Cath placed during this visit: no <Antelmo Olvera - 02/19/18 14:40> no <Sin Victoria - 02/19/18 11:07> Condom Cath placed during this visit: no <Sujata Olverageny - 02/19/18 14:40> no <Sin Victoria - 02/19/18 11:07> Straight Cath placed during this visit: no <MayAntelmo - 02/19/18 14:40> yes, but has since been removed by the nurse <Nedasanthosh Sin Rashid - 02/19/18 11:07> Reason for continuing: Not indwelling catheter <NedasanthoshSin Rashid - 11:07> Insertion date: 01/26/18 <NedaSin trevizo - 02/19/18 11:07> Insertion time: 17:30 <NedaSin trevizo - 02/19/18 11:07> Removal date: 01/26/18 <NedaSin trevizo - 02/19/18 11:07> Removal time: 17:35 <NedasanthoshSin J - 02/19/18 11:07> Assessment and Plan - Assessment (1) Iliopsoas abscess on left Code(s): K68.12 - Psoas muscle abscess Status: Acute (2) Sepsis Code(s): A41.9 - Sepsis, unspecified organism Status: Acute (3) Esophageal varices in cirrhosis Code(s): K74.60 - Unspecified cirrhosis of liver; I85.10 - Secondary esophageal varices without bleeding Status: Chronic (4) Hypertension Code(s): I10 - Essential (primary) hypertension Status: Chronic (5) Alcohol abuse Code(s): F10.10 - Alcohol abuse, uncomplicated Status: Chronic (6) Depression with anxiety Code(s): F41.8 - Other specified anxiety disorders Status: Chronic (7) Cough Code(s): R05 - Cough Status: Resolved (8) Diabetes Code(s): E11.9 - Type 2 diabetes mellitus without complications Status: Chronic (9) Deep vein thrombosis (DVT) of brachial vein Code(s): I82.629 - Acute embolism and thrombosis of deep veins of unspecified upper extremity Status: Acute (10) Chest pain Code(s): R07.9 - Chest pain, unspecified Status: Resolved (11) Alcohol withdrawal Code(s): F10.239 - Alcohol dependence with withdrawal, unspecified Status: Resolved (12) Physical deconditioning Code(s): R53.81 - Other malaise Status: Acute <MayAntelmo - 02/19/18 14:40> (1) Iliopsoas abscess on left Code(s): K68.12 - Psoas muscle abscess Status: Acute (2) Sepsis Code(s): A41.9 - Sepsis, unspecified organism Status: Acute (3) Esophageal varices in cirrhosis Code(s): K74.60 - Unspecified cirrhosis of liver; I85.10 - Secondary esophageal varices without bleeding Status: Chronic Plan: see below (4) Hypertension Code(s): I10 - Essential (primary) hypertension Status: Chronic Plan: see below (5) Alcohol abuse Code(s): F10.10 - Alcohol abuse, uncomplicated Status: Chronic Plan: see below (6) Depression with anxiety Code(s): F41.8 - Other specified anxiety disorders Status: Chronic Plan: see below (7) Cough Code(s): R05 - Cough Status: Resolved Plan: see below (8) Diabetes Code(s): E11.9 - Type 2 diabetes mellitus without complications Status: Chronic Plan: See below (9) Deep vein thrombosis (DVT) of brachial vein Code(s): I82.629 - Acute embolism and thrombosis of deep veins of unspecified upper extremity Status: Acute Plan: See below (10) Chest pain Code(s): R07.9 - Chest pain, unspecified Status: Resolved Plan: see below (11) Alcohol withdrawal Code(s): F10.239 - Alcohol dependence with withdrawal, unspecified Status: Resolved Plan: see below (12) Physical deconditioning Code(s): R53.81 - Other malaise Status: Acute <Sin Victoria - 02/19/18 10:41> - Assessment and Plan Patient is a 52-year-old male with medical history significant for alcoholism, cirrhosis, and esophageal varices who was admitted with esophageal varices, status post banding x4. He has had altered mental status for most of his hospitalization. He was intubated, and then extubated on 01/27. Repeat EGD on 02/05 showed no active bleed. He has significant physical deconditioning from his hospitalization. He is now working with physical therapy 7 days a week. Their recommendation for his deconditioning is that he go home with home health or to a [facility] facility for rehab. His insurance is not wanting to cover either of these options at this time. On 02/14 he he developed pain and difficulty extending the left hip. He was found to have an area concerning for abscess on MRI. CT was more consistent with hematoma. Sepsis secondary to suspected iliopsoas abscess: Met sepsis criteria with fever and pulse rate in the 90s. Complaint of inability to move left leg on 02/13/18. His ability to move the left leg is stable from yesterday. MRI showed potential iliopsoas abscess, CT was more consistent with hematoma, however he continues to have oscillating fevers, last at 100.4 yesterday. -Vancomycin and Zosyn for suspected abscess -Blood cultures drawn 02/14 show no growth thus far Significant pain in the area, Toradol 10 mg 4 times daily started. Tylenol 500 every 6 hours for pain or fever -Consult interventional radiology for potential reimaging and drainage if appropriate Physical deconditioning: Physical therapy 7 days a week is ordered. Most recent PT recommendation is PT at rehab. -Continue physical therapy -His inability to move the leg may be related to his abscess, however his symptoms are not completely explained by this. He had improved ability to move the left leg today Depression and anxiety: He does have a history of depression and has been on psychoactive medication in the past. He says that he is on gabapentin which helps with his depression and anxiety, and also Depakote. He is unsure what other medications he has been on. He reports that he is more depressed because he is stuck in the hospital with no one to talk to. Psychiatry consulted. Pastoral care consult -Prozac 10 daily -Gabapentin 600 mg 3 times daily started, can increase to 600 -Home medication Depakote continued Esophageal varices in the context of cirrhosis: He is status post banding x4 at the beginning of this hospitalization. H&H stable. EGD repeated without active bleeds 02/05, gastroenterology has signed off. -Continue lactulose 4 times a day and Xifaxan 550 twice daily, he has been refusing his lactulose due to an inability to make it to the bedside commode. -P.o. Protonix twice daily -Propranolol 40mg BID Pressure ulcers: Stage I sacral ulcer and stage I pressure ulcer of the right heel -Wound care nurse was consulted, please see their note for current wound care recommendations Hypertension: Amlodipine discontinued due to borderline hypotension, BP has been stable since -Bumex 0.5 mg daily -Propranolol as above Hyperlipidemia: -Continue home medication pravastatin 40 mg p.o. nightly Hypokalemia: -He has had some mild hypokalemia throughout his hospitalization. -Monitor and correct as needed Type 2 diabetes mellitus: He is continued to have blood sugars in the 100s and 200s -Continue low dose SS insulin -70/30: 2 units BID DVT of brachial vein (right): Last ultrasound on 01/28 was negative for DVT, DVT last seen the ultrasound on 01/19. -Lovenox 40mg daily Alcohol withdrawal: resolved He has a significant history of alcohol abuse and had been receiving treatment at [facility]. He had not been sober at the time of admission. He was transferred to the ICU secondary to withdraw. This has now resolved and he is not currently on any benzodiazepines. Fluids: Adequate p.o. intake Electrolytes: monitor and replete as needed. Nutrition: Regular diet GI prophylaxis: PO Protonix VTE prophylaxis: Lovenox 40mg q24h <Sin Victoria - 02/19/18 11:07> - Attending Attestation See the residents documentation for details. I saw and evaluated the patient regarding the [place] portions of this evaluation and agree with the residents findings and plans as written. Parts of this note were created using [employer] voice recognition software program. While efforts were made to correct any mistakes made by this software, some mistakes, errors, and omissions may remain in the final note that were not caught when the note was originally created. Plan of care was discussed and agreed upon with the patient as specifically documented in the above note. An opportunity to ask questions with explanation was provided. Patient voiced understanding on all information reviewed and discussed. <Antelmo Olvera - 02/19/18 14:40>
[2018-02-19] MEDS: Acetaminophen 500 MG Tablet PO PRN ×2 (11:15→17:17)
[2018-02-19] MEDS: Ferrous Sulfate 325 MG Tablet PO SCH ×2 (13:01→16:06)
[2018-02-19] MEDS: Enoxaparin Inj 40 MG/0.4 ML Syringe SQ SCH (16:06)
[2018-02-19] MEDS ORDERED: Pharmacy Ordered Lab Info OTHER ONE (17:45)
[2018-02-19 18:22] LABS: Calcium 8.2 mg/dL (8.5-10.1); Carbon Dioxide 23.5 meq/L (21.0-32.0); Potassium 4.1 meq/L (3.5-5.1)
[2018-02-19 18:24] LABS: Vancomycin,Trough 22.6 mcg/mL (5.0-10.0)
[2018-02-19] MEDS: Vancomycin Inj 1,750 MG in Sodium Chlor 0.9% Inj 500 ML IV.SIG SCH (18:41)
--- NOTE | 2018-02-19 19:20 | P.PNPL ---
Subjective Interval history: 52 YO male with GIB, cirrhosis Developed resp distress, agitation Extubated 01/27 Alert, awake, follows commands Denies sob No cough or sp Palliative care seeing pt. Physical Exam Vital signs: Vital Signs 02/18/18 20:00 02/19/18 00:00 02/19/18 04:00 Temperature 99.1 F 98.6 F 99.6 F Pulse Rate 92 H 83 86 Respiratory Rate 20 18 20 Blood Pressure 132/69 142/79 H 134/64 Pulse Oximetry 98 96 97 02/19/18 08:00 02/19/18 12:00 02/19/18 16:00 Temperature 100.3 F H 96.9 F L 99.3 F Pulse Rate 82 86 82 Respiratory Rate 18 16 Blood Pressure 160/78 H 134/81 133/86 Pulse Oximetry 97 95 96 Intake & Output 02/19/18 02/19/18 02/20/18 06:59 18:59 06:59 Intake Total 1097.5 / 1097.5 115.5 / 115.5 Output Total 395 / 395 1550 / 1550 Balance 702.5 / 702.5 -1434.5 / -1434.5 Intake: IV 617.5 / 617.5 115.5 / 115.5 Zosyn 3.375 GM Premix 50 ML @ 100 / 100 100 / 100 100 mls/hr IV.SIG Q6H MANUEL Rx#: [id number] Vancomycin Inj 1,750 MG In NS 517.5 / 517.5 Inj 500 ML @ 258.75 mls/hr IV. SIG Q18H MANUEL Rx#:[id number] Oral 480 / 480 Output: Urine 395 / 395 1550 / 1550 Other: Date of Last Bowel Movement 02/18/18 02/19/18 # Bowel Movements 0 3 GENERAL: WBWn NAD SKIN: Warm and dry. HEAD: Normocephalic. EYES: No scleral icterus. No injection or drainage. NECK: Supple, trachea midline. No JVD or lymphadenopathy. CARDIOVASCULAR: Regular rate and rhythm without murmurs, gallops, or rubs. RESPIRATORY: Breath sounds equal bilaterally. No accessory muscle use. GASTROINTESTINAL: Abdomen soft, non-tender, nondistended. MUSCULOSKELETAL: No cyanosis, or edema. BACK: Nontender without obvious deformity. No CVA tenderness. - Urinary Catheter Management Straight Cath placed during this visit: yes, but has since been removed by the nurse Reason for continuing: Not indwelling catheter Insertion date: 01/26/18 Insertion time: 17:30 Removal date: 01/26/18 Removal time: 17:35 Condom Cath placed during this visit: no 400 Cath placed during this visit: no Assessment and Plan - Plan IMPRESSION: 1. Mild shortness of breath and cough, possibly underlying asthma. 2. Hypertension. 3. Diabetes mellitus. 4. Cirrhosis of the liver. 5. VDRF, s/p extubation 01/27 6. Encephalopathy. PLAN: Protonix 40 mg daily Aerosol nebs SQ Lovenox 40 mg daily Bumex 0.5 mg daily Monitor BS Stable from Pulm standpoint
[2018-02-20] MEDS: Ketorolac 10 MG Tablet PO PRN ×2 (02:23→18:20)
[2018-02-20] MEDS: Piperacil/Tazo 3.375 GM Premix 50 ML IV.SIG SCH ×4 (05:06→22:48)
[2018-02-20] MEDS: Artificial Tears Opth Drops 15 ML Bottle EACH EYE SCH ×3 (05:11→22:48)
[2018-02-20] MEDS: Insulin NovoLOG Aspart Correctional Sugar Inj SQ SCH ×4 (05:11→23:28)
[2018-02-20] MEDS: Acetaminophen 500 MG Tablet PO PRN ×3 (05:51→22:47)
[2018-02-20 07:31] LABS: Hematocrit 26.3 % (39.0-51.0); Hemoglobin 8.7 gm/dL (13.0-17.0); Mean Corpuscular HGB Conc 33.3 % (32.0-36.0); Mean Corpuscular Hemoglobin 28.2 pg (27.0-34.0); Mean Corpuscular Volume 84.8 fL (80.0-100.0); Mean Platelet Volume 7.7 fL (7.0-11.0); Platelet Count 89 th/mm3 (150-450); Red Cell Distribution Width 23.7 % (11.6-17.2); White Blood Count 6.7 th/mm3 (4.0-11.0)
[2018-02-20 07:57] LABS: Calcium 7.9 mg/dL (8.5-10.1); Carbon Dioxide 30.5 meq/L (21.0-32.0); Potassium 4.1 meq/L (3.5-5.1)
[2018-02-20 07:59] LABS: Vancomycin,Random 15.9 Comment
[2018-02-20] MEDS: rifAXIMin 550 MG Tablet PO SCH ×2 (08:50→20:15)
[2018-02-20] MEDS: Lidocaine 5% Patch T-DERMAL SCH (08:50)
[2018-02-20] MEDS: Gabapentin 300 MG Capsule PO SCH ×3 (08:50→18:20)
[2018-02-20] MEDS: Propranolol 40 MG Tablet PO SCH ×2 (08:51→20:15)
[2018-02-20] MEDS: FLUoxetine 10 MG Capsule PO SCH (08:51)
[2018-02-20] MEDS: Multivit/Folic Acid/Minerals Chewable Tablets CHEW SCH (08:51)
[2018-02-20] MEDS: Senna/Docusate Sodium 8.6/50 MG Tablet PO SCH ×2 (08:51→20:15)
[2018-02-20] MEDS: Sodium Chloride 0.9% 2 ML Flush BID IV.FLUSH SCH ×2 (09:00→20:15)
[2018-02-20] MEDS ORDERED: Vancomycin Inj 1,500 MG in Sodium Chlor 0.9% Inj 500 ML IV.SIG SCH (10:00)
--- NOTE | 2018-02-20 10:30 | P.PNFP ---
Subjective Interval history: There are no acute events overnight. He has been afebrile for greater than 24 hours. He does still complain of some pain when he moves his left leg. He did have subjective chills overnight, but did not have any measured fevers. He also reports having some lightheadedness and dizziness when he is working with physical therapy. This happens as he stands up, and resolves with continued therapy. He denies nausea, vomiting, chest pain, palpitations, shortness of breath. <Sin Victoria - 02/20/18 10:29> Results - Labs Result diagrams: 02/20/18 07:11 02/20/18 07:11 <Antelmo Olvera - 02/20/18 14:01> Abnormal lab results 02/19/18 02/19/18 02/19/18 Range/Units 17:19 17:30 23:48 RBC (4.50-5.90) mil/mm3 Hgb (13.0-17.0) gm/dL Hct (39.0-51.0) % RDW (11.6-17.2) % Plt Count (150-450) th/mm3 Creatinine 1.41 H (0.60-1.30) mg/dL Estimated GFR 53 L (>89) mL/min POC Glucose 156 H 129 H (68-110) mg/dl Random Glucose 140 H (74-106) mg/dL Calcium 8.2 L (8.5-10.1) mg/dL Ammonia (11-32) mcmol/L Vancomycin Trough 22.6 H (5.0-10.0) mcg/mL 02/20/18 02/20/18 02/20/18 Range/Units 05:10 07:11 07:11 RBC 3.10 L (4.50-5.90) mil/mm3 Hgb 8.7 L (13.0-17.0) gm/dL Hct 26.3 L (39.0-51.0) % RDW 23.7 H (11.6-17.2) % Plt Count 89 L (150-450) th/mm3 Creatinine (0.60-1.30) mg/dL Estimated GFR (>89) mL/min POC Glucose 127 H (68-110) mg/dl Random Glucose (74-106) mg/dL Calcium (8.5-10.1) mg/dL Ammonia 34 H (11-32) mcmol/L Vancomycin Trough (5.0-10.0) mcg/mL 02/20/18 02/20/18 Range/Units 07:11 12:09 RBC (4.50-5.90) mil/mm3 Hgb (13.0-17.0) gm/dL Hct (39.0-51.0) % RDW (11.6-17.2) % Plt Count (150-450) th/mm3 Creatinine 1.39 H (0.60-1.30) mg/dL Estimated GFR 53 L (>89) mL/min POC Glucose 140 H (68-110) mg/dl Random Glucose 120 H (74-106) mg/dL Calcium 7.9 L (8.5-10.1) mg/dL Ammonia (11-32) mcmol/L Vancomycin Trough (5.0-10.0) mcg/mL Short CBC 02/20/18 Range/Units 07:11 WBC 6.7 (4.0-11.0) th/mm3 Hgb 8.7 L (13.0-17.0) gm/dL Hct 26.3 L (39.0-51.0) % Plt Count 89 L (150-450) th/mm3 BMP 02/19/18 02/20/18 17:30 07:11 Sodium 138 138 Potassium 4.1 4.1 Chloride 106 103 Carbon Dioxide 23.5 30.5 BUN 7 8 Creatinine 1.41 H 1.39 H Calcium 8.2 L 7.9 L <Antelmo Olvera - 02/20/18 14:01> Abnormal lab results 02/19/18 02/19/18 02/19/18 Range/Units 11:43 17:19 17:30 RBC (4.50-5.90) mil/mm3 Hgb (13.0-17.0) gm/dL Hct (39.0-51.0) % RDW (11.6-17.2) % Plt Count (150-450) th/mm3 Creatinine 1.41 H (0.60-1.30) mg/dL Estimated GFR 53 L (>89) mL/min POC Glucose 178 H 156 H (68-110) mg/dl Random Glucose 140 H (74-106) mg/dL Calcium 8.2 L (8.5-10.1) mg/dL Ammonia (11-32) mcmol/L Vancomycin Trough 22.6 H (5.0-10.0) mcg/mL 02/19/18 02/20/18 02/20/18 Range/Units 23:48 05:10 07:11 RBC 3.10 L (4.50-5.90) mil/mm3 Hgb 8.7 L (13.0-17.0) gm/dL Hct 26.3 L (39.0-51.0) % RDW 23.7 H (11.6-17.2) % Plt Count 89 L (150-450) th/mm3 Creatinine (0.60-1.30) mg/dL Estimated GFR (>89) mL/min POC Glucose 129 H 127 H (68-110) mg/dl Random Glucose (74-106) mg/dL Calcium (8.5-10.1) mg/dL Ammonia (11-32) mcmol/L Vancomycin Trough (5.0-10.0) mcg/mL 02/20/18 02/20/18 Range/Units 07:11 07:11 RBC (4.50-5.90) mil/mm3 Hgb (13.0-17.0) gm/dL Hct (39.0-51.0) % RDW (11.6-17.2) % Plt Count (150-450) th/mm3 Creatinine 1.39 H (0.60-1.30) mg/dL Estimated GFR 53 L (>89) mL/min POC Glucose (68-110) mg/dl Random Glucose 120 H (74-106) mg/dL Calcium 7.9 L (8.5-10.1) mg/dL Ammonia 34 H (11-32) mcmol/L Vancomycin Trough (5.0-10.0) mcg/mL Short CBC 02/20/18 Range/Units 07:11 WBC 6.7 (4.0-11.0) th/mm3 Hgb 8.7 L (13.0-17.0) gm/dL Hct 26.3 L (39.0-51.0) % Plt Count 89 L (150-450) th/mm3 BMP 02/19/18 02/20/18 17:30 07:11 Sodium 138 138 Potassium 4.1 4.1 Chloride 106 103 Carbon Dioxide 23.5 30.5 BUN 7 8 Creatinine 1.41 H 1.39 H Calcium 8.2 L 7.9 L <Sin Victoria - 02/20/18 10:29> Physical Exam Vital signs: Vital Signs 02/19/18 16:00 02/19/18 20:00 02/20/18 00:00 Temperature 99.3 F 98.1 F 99.2 F Pulse Rate 82 83 89 Respiratory Rate 16 18 18 Blood Pressure 133/86 148/79 H 128/76 Pulse Oximetry 96 98 98 02/20/18 04:00 02/20/18 08:00 02/20/18 12:00 Temperature 98.8 F 98.0 F Pulse Rate 77 78 82 Respiratory Rate 18 20 Blood Pressure 147/85 H 154/87 H Pulse Oximetry 97 93 L Intake & Output 02/19/18 02/20/18 02/20/18 18:59 06:59 18:59 Intake Total 115.5 / 115.5 580 / 580 565 / 565 Output Total 1550 / 1550 550 / 550 Balance -1434.5 / -1434.5 30 / 30 565 / 565 Weight 96.6 kg Intake: IV 115.5 / 115.5 100 / 100 565 / 565 Zosyn 3.375 GM Premix 50 ML @ 100 / 100 100 / 100 50 / 50 100 mls/hr IV.SIG Q6H MANUEL Rx#: [id number] Vancomycin Inj 1,500 MG In NS 515 / 515 Inj 500 ML @ 258.75 mls/hr IV. SIG Q24H MANUEL Rx#:[id number] Oral 480 / 480 Output: Urine 1550 / 1550 550 / 550 Other: Date of Last Bowel Movement 02/19/18 02/20/18 02/20/18 # Bowel Movements 3 4 <Antelmo Olvera - 02/20/18 14:01> Vital Signs 02/19/18 12:00 02/19/18 16:00 02/19/18 20:00 Temperature 96.9 F L 99.3 F 98.1 F Pulse Rate 86 82 83 Respiratory Rate 18 16 18 Blood Pressure 134/81 133/86 148/79 H Pulse Oximetry 95 96 98 02/20/18 00:00 02/20/18 04:00 02/20/18 08:00 Temperature 99.2 F 98.8 F 98.0 F Pulse Rate 89 77 78 Respiratory Rate 18 18 20 Blood Pressure 128/76 147/85 H 154/87 H Pulse Oximetry 98 97 93 L Intake & Output 02/19/18 02/20/18 02/20/18 18:59 06:59 18:59 Intake Total 115.5 / 115.5 580 / 580 Output Total 1550 / 1550 550 / 550 Balance -1434.5 / -1434.5 30 / 30 Weight 96.6 kg Intake: IV 115.5 / 115.5 100 / 100 Zosyn 3.375 GM Premix 50 ML @ 100 / 100 100 / 100 100 mls/hr IV.SIG Q6H MANUEL Rx#: [id number] Oral 480 / 480 Output: Urine 1550 / 1550 550 / 550 Other: Date of Last Bowel Movement 02/19/18 02/20/18 # Bowel Movements 3 4 <Sin iVctoria - 02/20/18 10:29> Narrative: General: Well-developed, alert, and in no acute distress. Neurologic: Oriented x3 HEENT: Atraumatic, moist mucous membranes Neck: Supple, trachea midline Cardiac: Regular rate and rhythm without murmurs Pulmonary: Non-labored breathing. Lungs clear to auscultation bilaterally with good air movement Abdomen: Normal bowel sounds, soft, nontender, even to deep palpation in the left lower quadrant. Extremities: No edema, 2+ pedal pulses, capillary refill less than 2 seconds. 5 /5 bilateral ankle strength. 5/5 right leg strength. Left leg: Full passive ROM of the hip without pain. Hip strength: 3/5 flexion, 3-4/5 extension, 5/5 internal and external rotation. 2/5 knee extension, 3/5 knee flexion.. Skin: Right heel stage 1 ulcer and sacral ulcer, stable in appearance. <Sin Victoria - 02/20/18 10:29> - Urinary Catheter Management 400 Cath placed during this visit: no <Antelmo Olvera - 02/20/18 14:01> no <Sin Victoria - 02/20/18 10:29> Condom Cath placed during this visit: no <Antelmo Olvera - 02/20/18 14:01> no <Sin Victoria - 02/20/18 10:29> Straight Cath placed during this visit: no <Antelmo Olvera - 02/20/18 14:01> yes, but has since been removed by the nurse <Sin Victoria - 02/20/18 10:29> Reason for continuing: Not indwelling catheter <Sin Victoria - 10:29> Insertion date: 01/26/18 <Sin Victoria - 02/20/18 10:29> Insertion time: 17:30 <Sin Victoria - 02/20/18 10:29> Removal date: 01/26/18 <Sin Victoria - 02/20/18 10:29> Removal time: 17:35 <Sin Victoria - 02/20/18 10:29> Assessment and Plan - Assessment (1) Iliopsoas abscess on left Code(s): K68.12 - Psoas muscle abscess Status: Acute (2) Sepsis Code(s): A41.9 - Sepsis, unspecified organism Status: Acute (3) Esophageal varices in cirrhosis Code(s): K74.60 - Unspecified cirrhosis of liver; I85.10 - Secondary esophageal varices without bleeding Status: Chronic (4) Hypertension Code(s): I10 - Essential (primary) hypertension Status: Chronic (5) Alcohol abuse Code(s): F10.10 - Alcohol abuse, uncomplicated Status: Chronic (6) Depression with anxiety Code(s): F41.8 - Other specified anxiety disorders Status: Chronic (7) Cough Code(s): R05 - Cough Status: Resolved (8) Diabetes Code(s): E11.9 - Type 2 diabetes mellitus without complications Status: Chronic (9) Deep vein thrombosis (DVT) of brachial vein Code(s): I82.629 - Acute embolism and thrombosis of deep veins of unspecified upper extremity Status: Acute (10) Chest pain Code(s): R07.9 - Chest pain, unspecified Status: Resolved (11) Alcohol withdrawal Code(s): F10.239 - Alcohol dependence with withdrawal, unspecified Status: Resolved (12) Physical deconditioning Code(s): R53.81 - Other malaise Status: Acute <Antelmo Olvera - 02/20/18 14:01> (1) Iliopsoas abscess on left Code(s): K68.12 - Psoas muscle abscess Status: Acute (2) Sepsis Code(s): A41.9 - Sepsis, unspecified organism Status: Acute (3) Esophageal varices in cirrhosis Code(s): K74.60 - Unspecified cirrhosis of liver; I85.10 - Secondary esophageal varices without bleeding Status: Chronic Plan: see below (4) Hypertension Code(s): I10 - Essential (primary) hypertension Status: Chronic Plan: see below (5) Alcohol abuse Code(s): F10.10 - Alcohol abuse, uncomplicated Status: Chronic Plan: see below (6) Depression with anxiety Code(s): F41.8 - Other specified anxiety disorders Status: Chronic Plan: see below (7) Cough Code(s): R05 - Cough Status: Resolved Plan: see below (8) Diabetes Code(s): E11.9 - Type 2 diabetes mellitus without complications Status: Chronic Plan: See below (9) Deep vein thrombosis (DVT) of brachial vein Code(s): I82.629 - Acute embolism and thrombosis of deep veins of unspecified upper extremity Status: Acute Plan: See below (10) Chest pain Code(s): R07.9 - Chest pain, unspecified Status: Resolved Plan: see below (11) Alcohol withdrawal Code(s): F10.239 - Alcohol dependence with withdrawal, unspecified Status: Resolved Plan: see below (12) Physical deconditioning Code(s): R53.81 - Other malaise Status: Acute <Sin Victoria - 02/20/18 10:15> - Assessment and Plan Patient is a 52-year-old male with medical history significant for alcoholism, cirrhosis, and esophageal varices who was admitted with esophageal varices, status post banding x4. He has had altered mental status for most of his hospitalization. He was intubated, and then extubated on 01/27. Repeat EGD on 02/05 showed no active bleed. He has significant physical deconditioning from his hospitalization. On 02/14 he he developed pain and difficulty extending the left hip. He was found to have an area concerning for abscess on MRI without contrast of the hip, however CT was more consistent with hematoma. Physical deconditioning: His inability to move the left leg may be related to his abscess, however his symptoms are not well explained by this. His ability to activate different muscle groups waxes and wanes based on the day. -Physical therapy 7 days a week is ordered. Most recent PT recommendation is PT at rehab -Neurology recommended conservative management. They do not recommend EMG because it would take 3 weeks to show any changes on EMG. -Gabapentin increased to 600 3 times daily per neurology and lidocaine patches discontinued Possible iliopsoas abscess: Met sepsis criteria with fever and pulse rate in the 90s. Complaint of inability to move left leg on 02/13/18. MRI of the hip without contrast showed potential iliopsoas abscess, CT was more consistent with hematoma. He has had some oscillating fevers, however now he is afebrile without leukocytosis. I spoke with interventional radiology (Dr. Méndez) who did not recommend drainage or reimaging at this time unless clinical suspicion was extremely high due to the CT appearance. -Vancomycin and Zosyn for suspected abscess -Blood cultures drawn 02/14 show final result has no growth Significant pain in the area, Toradol 10 mg 4 times daily started. Tylenol 500 every 6 hours for pain or fever Depression and anxiety: He does have a history of depression and has been on psychoactive medication in the past. He says that he is on gabapentin which helps with his depression and anxiety, and also Depakote. He is unsure what other medications he has been on. He reports that he is more depressed because he is stuck in the hospital with no one to talk to. Psychiatry consulted. Pastoral care consult -Prozac 10 daily -Gabapentin 600 mg 3 times daily -Continue Home medication Depakote Esophageal varices in the context of cirrhosis: He is status post banding x4 at the beginning of this hospitalization. H&H stable. EGD repeated without active bleeds 02/05, gastroenterology has signed off. -Continue lactulose 4 times a day and Xifaxan 550 twice daily, he has been intermittently refusing his lactulose due to an inability to make it to the bedside commode. -P.o. Protonix twice daily -Propranolol 40mg BID Pressure ulcers: Stage I sacral ulcer and stage I pressure ulcer of the right heel -Wound care nurse was consulted, please see their note for current wound care recommendations Hypertension: Amlodipine discontinued due to borderline hypotension, BP has been stable since -Bumex 0.5 mg daily -Propranolol as above Hyperlipidemia: -Continue home medication pravastatin 40 mg p.o. nightly Hypokalemia: -He has had some mild hypokalemia throughout his hospitalization. -Monitor and correct as needed Type 2 diabetes mellitus: He is continued to have blood sugars in the 100s and 200s -Continue low dose SS insulin -70/30: 20 units BID DVT of brachial vein (right): Last ultrasound on 01/28 was negative for DVT, DVT last seen the ultrasound on 01/19. -Lovenox 40mg daily Alcohol withdrawal: resolved He has a significant history of alcohol abuse and had been receiving treatment at [facility]. He had not been sober at the time of admission. He was transferred to the ICU secondary to withdraw. This has now resolved and he is not currently on any benzodiazepines. Fluids: Adequate p.o. intake Electrolytes: monitor and replete as needed. Nutrition: Regular diet GI prophylaxis: PO Protonix VTE prophylaxis: Lovenox 40mg q24h <Sin Victoria - 02/20/18 10:29> - Attending Attestation See the residents documentation for details. I saw and evaluated the patient regarding the manley portions of this evaluation and agree with the residents findings and plans as written. Parts of this note were created using [employer] voice recognition software program. While efforts were made to correct any mistakes made by this software, some mistakes, errors, and omissions may remain in the final note that were not caught when the note was originally created. Plan of care was discussed and agreed upon with the patient as specifically documented in the above note. An opportunity to ask questions with explanation was provided. Patient voiced understanding on all information reviewed and discussed. <Antelmo Olvera - 02/20/18 14:01>
[2018-02-20] MEDS: Ferrous Sulfate 325 MG Tablet PO SCH ×2 (12:44→18:17)
[2018-02-20] MEDS: Enoxaparin Inj 40 MG/0.4 ML Syringe SQ SCH (14:41)
--- NOTE | 2018-02-20 17:24 | P.PNPL ---
Subjective Interval history: 52 YO male with GIB, cirrhosis Developed resp distress, agitation Extubated 01/27 Alert, awake, follows commands Denies sob No cough or sp Up in the chair Sometime feels dizzy on getting up. Physical Exam Vital signs: Vital Signs 02/19/18 20:00 02/20/18 00:00 02/20/18 04:00 Temperature 98.1 F 99.2 F 98.8 F Pulse Rate 83 89 77 Respiratory Rate 18 Blood Pressure 148/79 H 128/76 147/85 H Pulse Oximetry 98 98 97 02/20/18 08:00 02/20/18 12:00 Temperature 98.0 F Pulse Rate 78 82 Respiratory Rate 20 Blood Pressure 154/87 H Pulse Oximetry 93 L Intake & Output 02/19/18 02/20/18 02/20/18 18:59 06:59 18:59 Intake Total 115.5 / 115.5 580 / 580 565 / 565 Output Total 1550 / 1550 550 / 550 Balance -1434.5 / -1434.5 30 / 30 565 / 565 Weight 96.6 kg Intake: IV 115.5 / 115.5 100 / 100 565 / 565 Zosyn 3.375 GM Premix 50 ML @ 100 / 100 100 / 100 50 / 50 100 mls/hr IV.SIG Q6H MANUEL Rx#: [id number] Vancomycin Inj 1,500 MG In NS 515 / 515 Inj 500 ML @ 258.75 mls/hr IV. SIG Q24H MANUEL Rx#:[id number] Oral 480 / 480 Output: Urine 1550 / 1550 550 / 550 Other: Date of Last Bowel Movement 02/19/18 02/20/18 02/20/18 # Bowel Movements 3 4 GENERAL: WBWn NAD SKIN: Warm and dry. HEAD: Normocephalic. EYES: No scleral icterus. No injection or drainage. NECK: Supple, trachea midline. No JVD or lymphadenopathy. CARDIOVASCULAR: Regular rate and rhythm without murmurs, gallops, or rubs. RESPIRATORY: Breath sounds equal bilaterally. No accessory muscle use. GASTROINTESTINAL: Abdomen soft, non-tender, nondistended. MUSCULOSKELETAL: No cyanosis, or edema. BACK: Nontender without obvious deformity. No CVA tenderness. - Urinary Catheter Management Straight Cath placed during this visit: yes, but has since been removed by the nurse Reason for continuing: Not indwelling catheter Insertion date: 01/26/18 Insertion time: 17:30 Removal date: 01/26/18 Removal time: 17:35 Condom Cath placed during this visit: no 400 Cath placed during this visit: no Assessment and Plan - Plan IMPRESSION: 1. Mild shortness of breath and cough, possibly underlying asthma. 2. Hypertension. 3. Diabetes mellitus. 4. Cirrhosis of the liver. 5. VDRF, s/p extubation 01/27 6. Encephalopathy. PLAN: Protonix 40 mg daily Aerosol nebs SQ Lovenox 40 mg daily Bumex 0.5 mg daily Monitor BS Stable from Pulm standpoint Undergoing PT
[2018-02-21] MEDS: Ketorolac 10 MG Tablet PO PRN (03:09)
[2018-02-21] MEDS: Piperacil/Tazo 3.375 GM Premix 50 ML IV.SIG SCH (05:05)
[2018-02-21] MEDS: Artificial Tears Opth Drops 15 ML Bottle EACH EYE SCH ×2 (05:07→14:52)
[2018-02-21] MEDS: Insulin NovoLOG Aspart Correctional Sugar Inj SQ SCH ×3 (05:15→17:35)
[2018-02-21] MEDS: Acetaminophen 500 MG Tablet PO PRN ×2 (05:26→17:41)
[2018-02-21 05:52] LABS: Baso % (Auto) 0.9 % (0.0-2.0); Eos # (Auto) 0.3 th/mm3 (0.0-0.4); Eos % (Auto) 5.1 % (0.0-4.0); Hematocrit 26.4 % (39.0-51.0); Hemoglobin 8.6 gm/dL (13.0-17.0); Lymph # (Auto) 0.5 th/mm3 (1.0-4.8); Mean Corpuscular HGB Conc 32.4 % (32.0-36.0); Mean Corpuscular Volume 86.2 fL (80.0-100.0); Mean Platelet Volume 7.8 fL (7.0-11.0); Mono % (Auto) 19.3 % (0.0-8.0); Neut # (Auto) 3.5 th/mm3 (1.8-7.7); Neut % (Auto) 64.7 % (16.0-70.0); Platelet Count 81 th/mm3 (150-450); Red Blood Count 3.06 mil/mm3 (4.50-5.90); Red Cell Distribution Width 23.7 % (11.6-17.2); White Blood Count 5.4 th/mm3 (4.0-11.0)
[2018-02-21 06:34] LABS: Carbon Dioxide 30.5 meq/L (21.0-32.0); Potassium 4.1 meq/L (3.5-5.1)
--- NOTE | 2018-02-21 08:58 | P.PNPL ---
Subjective Interval history: 52 YO male with GIB, cirrhosis Developed resp distress, agitation Extubated 01/27 Alert, awake, follows commands Denies sob No cough or sp Physical Exam Vital signs: Vital Signs 02/20/18 12:00 02/20/18 16:00 02/20/18 20:00 Temperature 97.0 F L 97.0 F L 97.8 F Pulse Rate 84 84 79 Respiratory Rate 20 20 16 Blood Pressure 125/79 123/64 113/65 Pulse Oximetry 94 L 96 94 L 02/21/18 00:00 02/21/18 04:00 Temperature 97.8 F 98.2 F Pulse Rate 88 84 Respiratory Rate 16 16 Blood Pressure 119/76 158/78 H Pulse Oximetry 95 94 L Intake & Output 02/20/18 02/21/18 02/21/18 18:59 06:59 18:59 Intake Total 1335 / 1335 50 / 50 50 / 50 Output Total 1000 / 1000 600 / 600 Balance 335 / 335 -550 / -550 50 / 50 Intake: IV 615 / 615 50 / 50 50 / 50 Zosyn 3.375 GM Premix 50 ML @ 100 / 100 50 / 50 50 / 50 100 mls/hr IV.SIG Q6H MANUEL Rx#: [id number] Vancomycin Inj 1,500 MG In NS 515 / 515 Inj 500 ML @ 258.75 mls/hr IV. SIG Q24H MANUEL Rx#:[id number] Oral 720 / 720 Output: Urine 1000 / 1000 600 / 600 Other: Date of Last Bowel Movement 02/20/18 02/21/18 # Bowel Movements 3 8 GENERAL: WBWN NAD SKIN: Warm and dry. HEAD: Normocephalic. EYES: No scleral icterus. No injection or drainage. NECK: Supple, trachea midline. No JVD or lymphadenopathy. CARDIOVASCULAR: Regular rate and rhythm without murmurs, gallops, or rubs. RESPIRATORY: Breath sounds equal bilaterally. No accessory muscle use. GASTROINTESTINAL: Abdomen soft, non-tender, nondistended. MUSCULOSKELETAL: No cyanosis, or edema. BACK: Nontender without obvious deformity. No CVA tenderness. - Urinary Catheter Management Straight Cath placed during this visit: yes, but has since been removed by the nurse Reason for continuing: Not indwelling catheter Insertion date: 01/26/18 Insertion time: 17:30 Removal date: 01/26/18 Removal time: 17:35 Condom Cath placed during this visit: no 400 Cath placed during this visit: no Assessment and Plan - Plan IMPRESSION: 1. Mild shortness of breath and cough, possibly underlying asthma. 2. Hypertension. 3. Diabetes mellitus. 4. Cirrhosis of the liver. 5. VDRF, s/p extubation 01/27 6. Encephalopathy. PLAN: Protonix 40 mg daily Aerosol nebs SQ Lovenox 40 mg daily Bumex 0.5 mg daily Monitor BS Stable from Pulm standpoint
[2018-02-21] MEDS: Sodium Chloride 0.9% 2 ML Flush BID IV.FLUSH SCH ×2 (09:17→22:43)
[2018-02-21] MEDS: Lidocaine 5% Patch T-DERMAL SCH (09:23)
[2018-02-21] MEDS: Gabapentin 300 MG Capsule PO SCH ×3 (09:24→17:32)
[2018-02-21] MEDS: Multivit/Folic Acid/Minerals Chewable Tablets CHEW SCH (09:24)
[2018-02-21] MEDS: Propranolol 40 MG Tablet PO SCH ×2 (09:27→20:22)
[2018-02-21] MEDS: FLUoxetine 10 MG Capsule PO SCH (09:27)
[2018-02-21] MEDS: Senna/Docusate Sodium 8.6/50 MG Tablet PO SCH ×2 (09:28→22:41)
[2018-02-21] MEDS: rifAXIMin 550 MG Tablet PO SCH ×2 (09:28→20:22)
--- NOTE | 2018-02-21 11:25 | P.PNFP ---
Subjective Interval history: Patient seen and examined today. No acute events overnight. patient believes he is regaining some strength in his left leg, however reports he still cannot extend his leg. Continues to have some mild pain in his left quadriceps, no pain/numbness/tingling distal to the area. Denies nausea, vomiting, fever, chills, abdominal pain, chest pain, shortness of breath, lightheadedness, dizziness. No other complaints today. <Florian Campbell - 02/21/18 11:25> Results - Labs Result diagrams: 02/21/18 05:17 02/21/18 05:17 <Antelmo Olvera - 02/21/18 13:13> Abnormal lab results 02/20/18 02/20/18 02/21/18 Range/Units 17:46 23:19 05:04 RBC (4.50-5.90) mil/mm3 Hgb (13.0-17.0) gm/dL Hct (39.0-51.0) % RDW (11.6-17.2) % Plt Count (150-450) th/mm3 [place] % (Auto) (0.0-8.0) % Eos % (Auto) (0.0-4.0) % Lymph # (Auto) (1.0-4.8) th/mm3 [place] # (Auto) (0.0-0.9) th/mm3 Creatinine (0.60-1.30) mg/dL Estimated GFR (>89) mL/min POC Glucose 189 H 176 H 150 H (68-110) mg/dl Random Glucose (74-106) mg/dL Calcium (8.5-10.1) mg/dL Ammonia (11-32) mcmol/L 02/21/18 02/21/18 02/21/18 Range/Units 05:17 05:17 05:17 RBC 3.06 L (4.50-5.90) mil/mm3 Hgb 8.6 L (13.0-17.0) gm/dL Hct 26.4 L (39.0-51.0) % RDW 23.7 H (11.6-17.2) % Plt Count 81 L (150-450) th/mm3 [place] % (Auto) 19.3 H (0.0-8.0) % Eos % (Auto) 5.1 H (0.0-4.0) % Lymph # (Auto) 0.5 L (1.0-4.8) th/mm3 [place] # (Auto) 1.0 H (0.0-0.9) th/mm3 Creatinine 1.41 H (0.60-1.30) mg/dL Estimated GFR 53 L (>89) mL/min POC Glucose (68-110) mg/dl Random Glucose 126 H (74-106) mg/dL Calcium 8.0 L (8.5-10.1) mg/dL Ammonia 46 H (11-32) mcmol/L 02/21/18 Range/Units 12:48 RBC (4.50-5.90) mil/mm3 Hgb (13.0-17.0) gm/dL Hct (39.0-51.0) % RDW (11.6-17.2) % Plt Count (150-450) th/mm3 [place] % (Auto) (0.0-8.0) % Eos % (Auto) (0.0-4.0) % Lymph # (Auto) (1.0-4.8) th/mm3 [place] # (Auto) (0.0-0.9) th/mm3 Creatinine (0.60-1.30) mg/dL Estimated GFR (>89) mL/min POC Glucose 151 H (68-110) mg/dl Random Glucose (74-106) mg/dL Calcium (8.5-10.1) mg/dL Ammonia (11-32) mcmol/L Short CBC 02/21/18 Range/Units 05:17 WBC 5.4 (4.0-11.0) th/mm3 Hgb 8.6 L (13.0-17.0) gm/dL Hct 26.4 L (39.0-51.0) % Plt Count 81 L (150-450) th/mm3 BMP 02/21/18 05:17 Sodium 141 Potassium 4.1 Chloride 105 Carbon Dioxide 30.5 BUN 9 Creatinine 1.41 H Calcium 8.0 L <Antelmo Olvera - 02/21/18 13:13> Abnormal lab results 02/20/18 02/20/18 02/20/18 Range/Units 12:09 17:46 23:19 RBC (4.50-5.90) mil/mm3 Hgb (13.0-17.0) gm/dL Hct (39.0-51.0) % RDW (11.6-17.2) % Plt Count (150-450) th/mm3 [place] % (Auto) (0.0-8.0) % Eos % (Auto) (0.0-4.0) % Lymph # (Auto) (1.0-4.8) th/mm3 [place] # (Auto) (0.0-0.9) th/mm3 Creatinine (0.60-1.30) mg/dL Estimated GFR (>89) mL/min POC Glucose 140 H 189 H 176 H (68-110) mg/dl Random Glucose (74-106) mg/dL Calcium (8.5-10.1) mg/dL Ammonia (11-32) mcmol/L 02/21/18 02/21/18 02/21/18 Range/Units 05:04 05:17 05:17 RBC 3.06 L (4.50-5.90) mil/mm3 Hgb 8.6 L (13.0-17.0) gm/dL Hct 26.4 L (39.0-51.0) % RDW 23.7 H (11.6-17.2) % Plt Count 81 L (150-450) th/mm3 [place] % (Auto) 19.3 H (0.0-8.0) % Eos % (Auto) 5.1 H (0.0-4.0) % Lymph # (Auto) 0.5 L (1.0-4.8) th/mm3 [place] # (Auto) 1.0 H (0.0-0.9) th/mm3 Creatinine 1.41 H (0.60-1.30) mg/dL Estimated GFR 53 L (>89) mL/min POC Glucose 150 H (68-110) mg/dl Random Glucose 126 H (74-106) mg/dL Calcium 8.0 L (8.5-10.1) mg/dL Ammonia (11-32) mcmol/L 02/21/18 Range/Units 05:17 RBC (4.50-5.90) mil/mm3 Hgb (13.0-17.0) gm/dL Hct (39.0-51.0) % RDW (11.6-17.2) % Plt Count (150-450) th/mm3 [place] % (Auto) (0.0-8.0) % Eos % (Auto) (0.0-4.0) % Lymph # (Auto) (1.0-4.8) th/mm3 [place] # (Auto) (0.0-0.9) th/mm3 Creatinine (0.60-1.30) mg/dL Estimated GFR (>89) mL/min POC Glucose (68-110) mg/dl Random Glucose (74-106) mg/dL Calcium (8.5-10.1) mg/dL Ammonia 46 H (11-32) mcmol/L Short CBC 02/21/18 Range/Units 05:17 WBC 5.4 (4.0-11.0) th/mm3 Hgb 8.6 L (13.0-17.0) gm/dL Hct 26.4 L (39.0-51.0) % Plt Count 81 L (150-450) th/mm3 BMP 02/21/18 05:17 Sodium 141 Potassium 4.1 Chloride 105 Carbon Dioxide 30.5 BUN 9 Creatinine 1.41 H Calcium 8.0 L <Faille,Isidoro - 02/21/18 11:25> Physical Exam Vital signs: Vital Signs 02/20/18 16:00 02/20/18 20:00 02/21/18 00:00 Temperature 97.0 F L 97.8 F 97.8 F Pulse Rate 84 79 88 Respiratory Rate 20 16 16 Blood Pressure 123/64 113/65 119/76 Pulse Oximetry 96 94 L 95 02/21/18 04:00 02/21/18 08:00 02/21/18 12:00 Temperature 98.2 F 99.5 F 99.1 F Pulse Rate 84 82 89 Respiratory Rate 16 18 18 Blood Pressure 158/78 H 142/79 H 136/85 Pulse Oximetry 94 L 95 95 Intake & Output 02/20/18 02/21/18 02/21/18 18:59 06:59 18:59 Intake Total 1335 / 1335 50 / 50 50 / 50 Output Total 1000 / 1000 600 / 600 Balance 335 / 335 -550 / -550 50 / 50 Intake: IV 615 / 615 50 / 50 50 / 50 Zosyn 3.375 GM Premix 50 ML @ 100 / 100 50 / 50 50 / 50 100 mls/hr IV.SIG Q6H [facility] Rx#: [id number] Vancomycin Inj 1,500 MG In NS 515 / 515 Inj 500 ML @ 258.75 mls/hr IV. SIG Q24H [facility] Rx#:[id number] Oral 720 / 720 Output: Urine 1000 / 1000 600 / 600 Other: Date of Last Bowel Movement 02/20/18 02/21/18 # Bowel Movements 3 8 <Antelmo Olvera - 02/21/18 13:13> Vital Signs 02/20/18 12:00 02/20/18 16:00 02/20/18 20:00 Temperature 97.0 F L 97.0 F L 97.8 F Pulse Rate 84 84 79 Respiratory Rate 20 20 16 Blood Pressure 125/79 123/64 113/65 Pulse Oximetry 94 L 96 94 L 02/21/18 00:00 02/21/18 04:00 02/21/18 08:00 Temperature 97.8 F 98.2 F 99.5 F Pulse Rate 88 84 81 Respiratory Rate 16 16 18 Blood Pressure 119/76 158/78 H 142/79 H Pulse Oximetry 95 94 L 95 Intake & Output 02/20/18 02/21/18 02/21/18 18:59 06:59 18:59 Intake Total 1335 / 1335 50 / 50 50 / 50 Output Total 1000 / 1000 600 / 600 Balance 335 / 335 -550 / -550 50 / 50 Intake: IV 615 / 615 50 / 50 50 / 50 Zosyn 3.375 GM Premix 50 ML @ 100 / 100 50 / 50 50 / 50 100 mls/hr IV.SIG Q6H [facility] Rx#: [id number] Vancomycin Inj 1,500 MG In NS 515 / 515 Inj 500 ML @ 258.75 mls/hr IV. SIG Q24H [facility] Rx#:[id number] Oral 720 / 720 Output: Urine 1000 / 1000 600 / 600 Other: Date of Last Bowel Movement 02/20/18 02/21/18 # Bowel Movements 3 8 <GtFlorian zaldivar - 02/21/18 11:25> Narrative: General: Well-developed, alert, and in no acute distress. Neurologic: Oriented x3 HEENT: Atraumatic, moist mucous membranes Neck: Supple, trachea midline Cardiac: Regular rate and rhythm without murmurs Pulmonary: Non-labored breathing. Lungs clear to auscultation bilaterally with good air movement Abdomen: Normal bowel sounds, soft, nontender, even to deep palpation in the left lower quadrant. Extremities: No edema, 2+ pedal pulses, capillary refill less than 2 seconds. 5 /5 bilateral ankle strength. 5/5 right leg strength. Left leg: Full passive ROM of the hip without pain. Left Hip strength: 0/5 flexion, 3/5 extension, 5/5 internal and external rotation. 2/5 knee extension , 3/5 knee flexion. Skin: Right heel stage 1 ulcer and sacral ulcer, stable in appearance. <Florian Campbell - 02/21/18 11:25> - Urinary Catheter Management 400 Cath placed during this visit: no <Antelmo Olvera - 02/21/18 13:13> no <Florian Campbell - 02/21/18 11:25> Condom Cath placed during this visit: no <Antelmo Olvera - 02/21/18 13:13> no <Florian Campbell - 02/21/18 11:25> Straight Cath placed during this visit: no <Antelmo Olvera - 02/21/18 13:13> yes, but has since been removed by the nurse <Florian Campbell - 02/21/18 11:25> Reason for continuing: Not indwelling catheter <Florian Campbell - 02/21/18 11 :25> Insertion date: 01/26/18 <Florian Campbell - 02/21/18 11:25> Insertion time: 17:30 <Florian Campbell - 02/21/18 11:25> Removal date: 01/26/18 <Florian Campbell - 02/21/18 11:25> Removal time: 17:35 <Florian Campbell - 02/21/18 11:25> Assessment and Plan - Assessment (1) Iliopsoas abscess on left Code(s): K68.12 - Psoas muscle abscess Status: Acute (2) Sepsis Code(s): A41.9 - Sepsis, unspecified organism Status: Acute (3) Esophageal varices in cirrhosis Code(s): K74.60 - Unspecified cirrhosis of liver; I85.10 - Secondary esophageal varices without bleeding Status: Chronic (4) Hypertension Code(s): I10 - Essential (primary) hypertension Status: Chronic (5) Alcohol abuse Code(s): F10.10 - Alcohol abuse, uncomplicated Status: Chronic (6) Depression with anxiety Code(s): F41.8 - Other specified anxiety disorders Status: Chronic (7) Cough Code(s): R05 - Cough Status: Resolved (8) Diabetes Code(s): E11.9 - Type 2 diabetes mellitus without complications Status: Chronic (9) Deep vein thrombosis (DVT) of brachial vein Code(s): I82.629 - Acute embolism and thrombosis of deep veins of unspecified upper extremity Status: Acute (10) Chest pain Code(s): R07.9 - Chest pain, unspecified Status: Resolved (11) Alcohol withdrawal Code(s): F10.239 - Alcohol dependence with withdrawal, unspecified Status: Resolved (12) Physical deconditioning Code(s): R53.81 - Other malaise Status: Acute <Antelmo Olvera - 02/21/18 13:13> (1) Iliopsoas abscess on left Code(s): K68.12 - Psoas muscle abscess Status: Acute (2) Sepsis Code(s): A41.9 - Sepsis, unspecified organism Status: Acute (3) Esophageal varices in cirrhosis Code(s): K74.60 - Unspecified cirrhosis of liver; I85.10 - Secondary esophageal varices without bleeding Status: Chronic Plan: see below (4) Hypertension Code(s): I10 - Essential (primary) hypertension Status: Chronic Plan: see below (5) Alcohol abuse Code(s): F10.10 - Alcohol abuse, uncomplicated Status: Chronic Plan: see below (6) Depression with anxiety Code(s): F41.8 - Other specified anxiety disorders Status: Chronic Plan: see below (7) Cough Code(s): R05 - Cough Status: Resolved Plan: see below (8) Diabetes Code(s): E11.9 - Type 2 diabetes mellitus without complications Status: Chronic Plan: See below (9) Deep vein thrombosis (DVT) of brachial vein Code(s): I82.629 - Acute embolism and thrombosis of deep veins of unspecified upper extremity Status: Acute Plan: See below (10) Chest pain Code(s): R07.9 - Chest pain, unspecified Status: Resolved Plan: see below (11) Alcohol withdrawal Code(s): F10.239 - Alcohol dependence with withdrawal, unspecified Status: Resolved Plan: see below (12) Physical deconditioning Code(s): R53.81 - Other malaise Status: Acute <Florian Campbell - 02/21/18 11:21> - Assessment and Plan Patient is a 52-year-old male with medical history significant for alcoholism, cirrhosis, and esophageal varices who was admitted with esophageal varices, status post banding x4. He has had altered mental status for most of his hospitalization. He was intubated, and then extubated on 01/27. Repeat EGD on 02/05 showed no active bleed. He has significant physical deconditioning from his hospitalization. On 02/14 he he developed pain and difficulty extending the left hip. He was found to have an area concerning for abscess on MRI without contrast of the hip, however CT was more consistent with hematoma. Physical deconditioning: His inability to move the left leg may be related to his abscess, however his symptoms are not well explained by this. His ability to activate different muscle groups waxes and wanes based on the day. -Physical therapy 7 days a week is ordered. Most recent PT recommendation is PT at rehab -Neurology recommended conservative management. They do not recommend EMG because it would take 3 weeks to show any changes on EMG. -Gabapentin increased to 600 3 times daily per neurology and lidocaine patches discontinued -Rehabilitation medicine consulted Possible iliopsoas abscess: Met sepsis criteria with fever and pulse rate in the 90s. Complaint of inability to move left leg on 02/13/18. MRI of the hip without contrast showed potential iliopsoas abscess, CT was more consistent with hematoma. He has had some oscillating fevers, however now he is afebrile without leukocytosis. Interventional radiology contacted (Dr. Méndez) who did not recommend drainage or reimaging at this time unless clinical suspicion was extremely high due to the CT appearance. -Zosyn for suspected abscess -Blood cultures drawn 02/14 show final result has no growth Significant pain in the area, Toradol 10 mg 4 times daily started. Tylenol 500 every 6 hours for pain or fever Depression and anxiety: He does have a history of depression and has been on psychoactive medication in the past. He says that he is on gabapentin which helps with his depression and anxiety, and also Depakote. He is unsure what other medications he has been on. He reports that he is more depressed because he is stuck in the hospital with no one to talk to. Psychiatry consulted. Pastoral care consult -Prozac 10 daily -Gabapentin 600 mg 3 times daily -Continue Home medication Depakote Esophageal varices in the context of cirrhosis: He is status post banding x4 at the beginning of this hospitalization. H&H stable. EGD repeated without active bleeds 02/05, gastroenterology has signed off. -Continue lactulose 4 times a day and Xifaxan 550 twice daily, he has been intermittently refusing his lactulose due to an inability to make it to the bedside commode. -P.o. Protonix twice daily -Propranolol 40mg BID Pressure ulcers: Stage I sacral ulcer and stage I pressure ulcer of the right heel -Wound care nurse was consulted, please see their note for current wound care recommendations Hypertension: Amlodipine discontinued due to borderline hypotension, BP has been stable since -Bumex 0.5 mg daily -Propranolol as above Hyperlipidemia: -Continue home medication pravastatin 40 mg p.o. nightly Hypokalemia: -He has had some mild hypokalemia throughout his hospitalization. -Monitor and correct as needed Type 2 diabetes mellitus: He is continued to have blood sugars in the 100s and 200s -Continue low dose SS insulin -70/30: 20 units BID DVT of brachial vein (right): Last ultrasound on 01/28 was negative for DVT, DVT last seen the ultrasound on 01/19. -Lovenox 40mg daily Alcohol withdrawal: resolved He has a significant history of alcohol abuse and had been receiving treatment at [facility]. He had not been sober at the time of admission. He was transferred to the ICU secondary to withdraw. This has now resolved and he is not currently on any benzodiazepines. Fluids: Adequate p.o. intake Electrolytes: monitor and replete as needed. Nutrition: Regular diet GI prophylaxis: PO Protonix VTE prophylaxis: Lovenox 40mg q24h <Florian Campbell - 02/21/18 11:25>
[2018-02-21] MEDS: Ferrous Sulfate 325 MG Tablet PO SCH ×2 (12:48→17:41)
--- NOTE | 2018-02-21 14:14 | P.CONREH ---
History of Present Illness Service: Physical Medicine and Rehabilitation Consult date: 02/21/18 Reason for Consult: Physical Medicine and Rehabilitation Primary Care Provider: Yvon Oscar Chief Complaint: abdominal pain and vomiting PMFSH - History History 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, Community Facilitator / EMT - Medical History Medical History: Medical History (Last Reviewed 02/20/18 @ 08:46 by Ronak Briceno) MDRO (multiple drug resistant organisms) resistance Onset Date: ~01/19/18 Depression Diabetes ETOH abuse Esophageal varices GI bleed HTN (hypertension) - Family History Family History: Family History (Last Reviewed 02/19/18 @ 08:35 by [employer]) Other Family history of cancer Family history of colon cancer - Tobacco History Second Hand Smoke Exposure: Yes Tobacco Use In Past 30 Days: Yes Smoking Status: Current every day smoker Tobacco Type: Cigarettes - Alcohol History How Often Do You Have a Drink Containing Alcohol: 2 to 3 times a week - Substance Use History Substance History: Active Abuse - Substance Use Type Marijuana Type: marijuana Status: Active Route Used: Inhalation Reason for Use: Calm Down - Travel History Recent Travel in the [place] Within the Last 8 Weeks: No Recent Travel Out of the Country Within the Last 8 Weeks: No - Immunization History Tetanus Immunization: >5 Years Hx Influenza Vaccine This Season: No Medications and Allergies Active Medications: Active Medications Acetaminophen (Tylenol) 500 mg PO Q6H PRN PRN Reason: pain or fever Last Admin: 02/21/18 05:26 Dose: 500 mg Al Hydroxide/Mg Hydroxide (Milk Of Magngrace Liq) 30 ml PO Q12H PRN PRN Reason: Mild Constipation Last Admin: 01/23/18 10:36 Dose: 30 ml Albuterol (Albuterol Neb (Prn)) 2.5 mg NEB Q2HR NEB PRN PRN Reason: DYSPNEA Last Admin: 01/28/18 04:21 Dose: 2.5 mg Artificial Tears (Tears Naturale Opth Drops) 1 drop EACH EYE Q8H [facility] Last Admin: 02/21/18 05:07 Dose: 1 drop Bisacodyl (Dulcolax Supp) 10 mg RECTAL DAILY PRN PRN Reason: SEVERE CONSITIPATION Bumetanide (Bumex) 0.5 mg PO DAILY [facility] Last Admin: 02/21/18 09:27 Dose: 0.5 mg Dextrose (D50w Vial) 50 ml IV.PUSH UNSCH PRN PRN Reason: PER HYPOGLYCEMIA PROTOCOL Enoxaparin Sodium (Lovenox Inj) 40 mg SQ Q24H [facility] Last Admin: 02/20/18 14:41 Dose: 40 mg Ferrous Sulfate (Ferosul) 325 mg PO BID@1200,1700 [facility] Last Admin: 02/21/18 12:48 Dose: 325 mg Fluoxetine HCl (Prozac) 10 mg PO DAILY [facility] Last Admin: 02/21/18 09:27 Dose: 10 mg Gabapentin (Neurontin) 600 mg PO TID [facility] Last Admin: 02/21/18 12:48 Dose: 600 mg Glucagon (Glucagon Inj) 1 mg OTHER PRN PRN PRN Reason: for Hypoglycemia Protocol Hydroxyzine Pamoate (Vistaril) 25 mg PO Q8H PRN PRN Reason: ANXIETY Last Admin: 02/13/18 20:40 Dose: 25 mg Lactated Ringer's (Lr 1000 Ml Inj) 1,000 mls @ 84 mls/hr IV.CONT .[id number] [facility] Last Admin: 02/21/18 09:16 Dose: 84 mls/hr Insulin Aspart (Novolog Insulin Correctional Sugar Inj) 0 unit SQ Q6H [facility]; Protocol Last Admin: 02/21/18 12:54 Dose: 1 unit Insulin Human NPH (Novolin N Inj) 20 units SQ BID@0800,1700 [facility] Last Admin: 02/21/18 09:17 Dose: 20 units Lactulose (Lactulose Liq) 30 ml PO Q4H [facility] Last Admin: 02/21/18 10:59 Dose: Not Given Lidocaine HCl (Lidoderm 5% Patch.12 Hr) 1 patch T-DERMAL DAILY [facility] Last Admin: 02/21/18 09:23 Dose: 1 patch Miscellaneous (Pill Splitter) 1 each OTHER UNSCH [facility] Miscellaneous Information ([facility] Ordered Lab Info) 0 each OTHER ONCE ONE Stop: 02/22/18 09:46 Multivitamins/Folic Acid/Vitamin C (Flintstones) 1 tab CHEW DAILY [facility] Last Admin: 02/21/18 09:24 Dose: 1 tab Ondansetron HCl (Zofran Inj) 4 mg IV.PUSH Q6H PRN PRN Reason: nausea and vomiting Last Admin: 02/21/18 12:54 Dose: 4 mg Pantoprazole Sodium (Protonix) 40 mg PO BID [facility] Last Admin: 02/21/18 09:27 Dose: 40 mg Patch Removal (Remove Old Patch) 1 each T-DERMAL HS [facility] Last Admin: 02/20/18 20:15 Dose: 1 each Pravastatin Sodium (Pravachol) 40 mg PO QPM [facility] Last Admin: 02/20/18 18:25 Dose: 40 mg Propranolol HCl (Inderal) 40 mg PO BID [facility] Last Admin: 02/21/18 09:27 Dose: 40 mg Rifaximin (Xifaxan) 550 mg PO Q12HR [facility] Last Admin: 02/21/18 09:28 Dose: 550 mg Senna/Docusate Sodium (Joanne-Colace) 1 tab PO BID [facility] Last Admin: 02/21/18 09:28 Dose: Not Given Sennosides (Senokot) 17.2 mg PO Q12H PRN PRN Reason: Moderate Constipation Sodium Chloride (Ns Flush) 2 ml IV.FLUSH BID [facility] Last Admin: 02/21/18 09:17 Dose: 2 ml Sodium Chloride (Ns Flush) 2 ml IV.FLUSH PRN PRN PRN Reason: FLUSH AFTER USING IV ACCESS Last Admin: 02/10/18 04:24 Dose: 2 ml Valproate Sodium (Depakene Liq) 500 mg PO DAILY [facility] Last Admin: 02/21/18 09:27 Dose: 500 mg Allergies Allergy/AdvReac Type Severity Reaction Status Date / Time morphine Allergy Severe Shortness Verified 11/13/17 13:22 of Breath buspirone Allergy Intermediate Numbness Verified 11/13/17 13:22 Home Medications Medication Instructions Recorded Confirmed Type amlodipine 5 mg PO DAILY 11/13/17 01/15/18 History aspirin 81 mg PO DAILY 11/13/17 01/15/18 History atenolol 50 mg PO DAILY 11/13/17 01/15/18 History bumetanide 0.5 mg PO DAILY 11/13/17 01/15/18 History divalproex [Depakote] 500 mg PO DAILY 11/13/17 01/15/18 History donepezil 5 mg PO DAILY 11/13/17 01/15/18 History insulin NPH and regular human 1 sliding scale dose SUB-Q UD 11/13/17 01/15/18 History [Novolin 70/30 U-100 Insulin] lanthanum 500 mg PO DAILY 11/13/17 01/15/18 History lisinopril 40 mg PO DAILY 11/13/17 01/15/18 History lorazepam [Ativan] 0.5 mg PO BID 11/13/17 01/15/18 History mesalamine [Lialda] 1.2 g PO BID 11/13/17 01/15/18 History simvastatin 20 mg PO QPM 11/13/17 01/15/18 History tramadol 50 mg PO Q6H PRN 11/13/17 01/15/18 History vit B,P-HV-bnbo-selen-vit D3-E 1 tab PO DAILY 11/13/17 01/15/18 History [RenaPlex-D] Exam - Physical Examination Vital Signs / I&O: Vital Signs 02/20/18 16:00 02/20/18 20:00 02/21/18 00:00 Temperature 97.0 F L 97.8 F 97.8 F Pulse Rate 84 79 88 Respiratory Rate 20 16 16 Blood Pressure 123/64 113/65 119/76 Pulse Oximetry 96 94 L 95 02/21/18 04:00 02/21/18 08:00 02/21/18 12:00 Temperature 98.2 F 99.5 F 99.1 F Pulse Rate 84 82 89 Respiratory Rate 16 18 18 Blood Pressure 158/78 H 142/79 H 136/85 Pulse Oximetry 94 L 95 95 Intake & Output 02/20/18 02/21/18 02/21/18 18:59 06:59 18:59 Intake Total 1335 / 1335 50 / 50 50 / 50 Output Total 1000 / 1000 600 / 600 Balance 335 / 335 -550 / -550 50 / 50 Intake: IV 615 / 615 50 / 50 50 / 50 Zosyn 3.375 GM Premix 50 ML @ 100 / 100 50 / 50 50 / 50 100 mls/hr IV.SIG Q6H [facility] Rx#: [id number] Vancomycin Inj 1,500 MG In NS 515 / 515 Inj 500 ML @ 258.75 mls/hr IV. SIG Q24H [facility] Rx#:[id number] Oral 720 / 720 Output: Urine 1000 / 1000 600 / 600 Other: Date of Last Bowel Movement 02/20/18 02/21/18 # Bowel Movements 3 8 Intake & Output 12/02/2502/20/18 02/21/18 02/22/18 06:59 06:59 06:59 06:59 Intake Total 2354.5 / 2354.5 695.5 / 695.5 1385 / 1385 50 / 50 Output Total 2870 / 2870 2100 / 2100 1600 / 1600 Balance -515.5 / -515.5 -1404.5 / -1404.5 -215 / -215 50 / 50 Weight 96.6 kg Date of Last Bowel Movement: 02/21/18 Results - Labs CBC & Chem 7: 02/21/18 05:17 02/21/18 05:17 Labs: Laboratory Results - last 24 hr 02/20/18 02/20/18 02/21/18 17:46 23:19 05:04 WBC RBC Hgb Hct MCV MCH MCHC RDW Plt Count MPV Prelim Diff (Auto) Neut % (Auto) Lymph % (Auto) [place] % (Auto) Eos % (Auto) Baso % (Auto) Neut # (Auto) Lymph # (Auto) [place] # (Auto) Eos # (Auto) Baso # (Auto) WBC Differential Diff Scan Differential Comment Sodium Potassium Chloride Carbon Dioxide Anion Gap BUN Creatinine Estimated GFR POC Glucose 189 H 176 H 150 H Random Glucose Calcium Ammonia 02/21/18 02/21/18 02/21/18 05:17 05:17 05:17 WBC 5.4 RBC 3.06 L Hgb 8.6 L Hct 26.4 L MCV 86.2 MCH 28.0 MCHC 32.4 RDW 23.7 H Plt Count 81 L MPV 7.8 Prelim Diff (Auto) Slide review pending Neut % (Auto) 64.7 Lymph % (Auto) 10.0 [place] % (Auto) 19.3 H Eos % (Auto) 5.1 H Baso % (Auto) 0.9 Neut # (Auto) 3.5 Lymph # (Auto) 0.5 L [place] # (Auto) 1.0 H Eos # (Auto) 0.3 Baso # (Auto) 0.0 WBC Differential . Diff Scan Auto diff confirmed Differential Comment . Sodium 141 Potassium 4.1 Chloride 105 Carbon Dioxide 30.5 Anion Gap 6 BUN 9 Creatinine 1.41 H Estimated GFR 53 L POC Glucose Random Glucose 126 H Calcium 8.0 L Ammonia 46 H 02/21/18 02/21/18 08:04 12:48 WBC RBC Hgb Hct MCV MCH MCHC RDW Plt Count MPV Prelim Diff (Auto) Neut % (Auto) Lymph % (Auto) [place] % (Auto) Eos % (Auto) Baso % (Auto) Neut # (Auto) Lymph # (Auto) [place] # (Auto) Eos # (Auto) Baso # (Auto) WBC Differential Diff Scan Differential Comment Sodium Potassium Chloride Carbon Dioxide Anion Gap BUN Creatinine Estimated GFR POC Glucose 110 151 H Random Glucose Calcium Ammonia Assessment and Plan - Plan Assessment: 1. Left Iliopsoas abscess/hematoma with left LE proximal weakness and anteriormedial thigh and leg pain consistent with right femoral neuropathy Recommendations: 1. Continue to mobilize with PT. Patient is agreeable to participate. Add facilitation and estim if equipment available 2. Currently on 600 mg Gabapentin tid. Would increase to 600mg bid and 900 mg q hs 3. Would consider changing Prozac to Cymbalta which will help with mood and dysesthetic pain 4. Knee brace ordered pr [employer] 5. Will follow Thanks for this interesting consult.
--- NOTE | 2018-02-21 14:19 | P.PNWCN ---
Wound Care Nurse Consult Description: Patient seen for follow up of pressure ulcer to R heel and moisture associated skin damage to buttock area. Communicated with: RN Marilu Otero [place] and Doctor Recommendation: Please continue wound care recommendations as follows: 1.Please cleanse partial thickness wounds to bilateral inner buttocks with normal saline and pat dry. Please cleanse patient of stool with Remedy barrier wipes and pat dry. Apply Calazime skin protectant paste BID and PRN to buttock and gluteal cleft areas covering partial thickness skin loss that is moisture related, and leave open to air. 2.Encourage patient to turn himself and reposition in bed at least every 2 hours avoiding laying on back 3.Do not use cotton pads on bed use ultrasorb pad. 4.Apply Cavilon skin barrier film to DTI on R heel BID and leave open to air. 5.Float heels with pillow or apply heel raiser boots Wound/Pressure Injury - Wound Right Heel Wound Staging: DTI Wound Assessment: Ongoing Wound Type: Pressure Injury Is This a Chronic Wound: No Requested from Provider a Wound Care Consult: Yes (Patient seen today by Wound care inpatient ) Length (cm): 4.2 Width (cm): 4 Depth (cm): 0 (intact skin with purple discoloration that is non blanchable) Wound Bed Appearance: R heel DTI presents with purple discoloration to R heel that is non blanchable and firm. Appears to be improved from previous assessment. Surrounding Tissue Appearance: Blanched/Dull Surrounding Tissue Temperature: Cool Drainage Amount: None Drainage Odor: No Odor Topical: Cavilon skin barrier film - Additional Information Patient seen today for follow up of R heel pressure injury and moisture associated skin damage to buttock area. Patient is laying in [employer] low airloss bed when mortgage or loan underwriter arrived positioned on R side. Assessed patient's heels, R heel is noted with non blanchable, purple, firm, discoloration to intact skin that has improved from previous assessment. Applied Cavilon spray to R heel and left open to air. Heel was floated off mattress. Patient was already on R side removed saturated ultra sorb pad to reveal smaller partial thickness wounds to bilateral inner buttock that are dry and 100 % pink, periwound presents with pink colored denuded skin, that is blanchable. Wound etiology appears to be moisture and not pressure related. Patient is still having loose stools. Wounds were cleansed with normal saline and patted dry. Applied Calazime skin protectant paste to bilateral inner buttock and gluteal cleft,covering wounds with Calazime skin protectant paste and left these areas open to air.
[2018-02-21] MEDS: Enoxaparin Inj 40 MG/0.4 ML Syringe SQ SCH (14:53)
--- NOTE | 2018-02-21 15:43 | P.PNPAL ---
Reason for Visit Reason for visit: a. To assist with evaluation and management of symptoms including: weakness, pain, anxiety b. To assist medical decision maker(s) with: better understanding of current medical conditions; weighing benefits/burdens of medical treatment options; making medical treatment decisions. Subjective Subjective/Interval History: This is a 52-year-old male with a history of alcohol abuse, esophageal varices and GI bleed who presented to the emergency room 01/15 after a few days of generalized abdominal pains, 09/17, with associated nausea and vomiting over 10 times in the prior 24 hours, chills, dizziness. He describes his pain as periumbilical, cramping without radiation. He had been following at [facility] for alcohol cessation but had not been compliant and had continued to drink. Patient is seen today for medically necessary visit on symptom management of pain, anxiety and weakness. Patient remains weak, especially the left leg since he fell 12/4 tween the commode and the bed. Leg continues to buckle doing standing marching with physical therapy. PT list left hip flexor 3-/5, left quad 0/5. He requires wheeled walker with standing or movement. He was seen by Dr. Gastelum who recommends knee brace per [employer], increasing gabapentin at night and changing Prozac to Cymbalta. Left leg remains numb and painful in the thigh. He has some sensation of touch but is unable to lift his left leg off the bed, thought to be secondary to iliopsoas abscess/hematoma, likely secondary to recent fall. He is receiving Tylenol for pain management which is not effective. He complains of anxiety which is constant, moderate, exacerbated by extended hospital stay with no relieving factors at this time and states he used to be on medication for that. This is verified by his prepress manager, Janette. She states he is never this fidgety and anxious. He is seen to make constant nervous hand movements, is grimacing and is generally fidgety. . Family/Friend Interactions: His prepress manager, Janette, was visiting and encouraged him to continue cooperation with therapy. She did note his anxiety and fidgeting, which she states was not present previously. Review of his prior medications indicates that he had been treated for anxiety with Ativan 0.5 mg p.o. twice daily, scheduled, which was effective for him. This has not been resumed in the hospital. Advance Directives Living Will: Never completed Durable Power of Crew Truck Driver: Never completed Objective Vital Signs: Vital Signs 02/20/18 16:00 02/20/18 20:00 02/21/18 00:00 Temperature 97.0 F L 97.8 F 97.8 F Pulse Rate 84 79 88 Respiratory Rate 20 16 16 Blood Pressure 123/64 113/65 119/76 Pulse Oximetry 96 94 L 95 02/21/18 04:00 02/21/18 08:00 02/21/18 12:00 Temperature 98.2 F 99.5 F 99.1 F Pulse Rate 84 82 89 Respiratory Rate 16 18 18 Blood Pressure 158/78 H 142/79 H 136/85 Pulse Oximetry 94 L 95 95 Intake & Output 02/20/18 02/21/18 02/21/18 18:59 06:59 18:59 Intake Total 1335 / 1335 50 / 50 50 / 50 Output Total 1000 / 1000 600 / 600 Balance 335 / 335 -550 / -550 50 / 50 Intake: IV 615 / 615 50 / 50 50 / 50 Zosyn 3.375 GM Premix 50 ML @ 100 / 100 50 / 50 50 / 50 100 mls/hr IV.SIG Q6H MANUEL Rx#: [id number] Vancomycin Inj 1,500 MG In NS 515 / 515 Inj 500 ML @ 258.75 mls/hr IV. SIG Q24H MANUEL Rx#:[id number] Oral 720 / 720 Output: Urine 1000 / 1000 600 / 600 Other: Date of Last Bowel Movement 02/20/18 02/21/18 02/21/18 # Bowel Movements 3 8 Physical Exam: CONSTITUTIONAL/GENERAL: This is an adequately nourished patient, in no apparent distress. TUBES/LINES/DRAINS: PIV LFA CARDIOVASCULAR: Regular rate and rhythm without murmurs, gallops, or rubs. No JVD. Peripheral pulses symmetric. RESPIRATORY/CHEST: Symmetric, unlabored respirations. Clear to auscultation. Breath sounds equal bilaterally. No wheezes, rales, or rhonchi. GASTROINTESTINAL: Abdomen soft, non-tender, nondistended. No guarding. Bowel sounds present. GENITOURINARY: Without palpable bladder distension. MUSCULOSKELETAL: Left leg weakness, decreased sensation in thigh, sharp stabbing pains 10/10 constant, with continued feeling of numbness. LYMPHATICS: No palpable cervical or supraclavicular adenopathy. NEUROLOGICAL: Awake and alert. Motor and sensory grossly within normal limits. Follows commands. Moves all extremities. PSYCHIATRIC: States he is depressed, flat affect, very fidgety also complains of anxiety. . Diagnostic Tests Laboratory: Laboratory Results - last 72 hr 02/18/18 02/18/18 02/19/18 17:13 22:23 04:47 WBC RBC Hgb Hct MCV MCH MCHC RDW Plt Count MPV Prelim Diff (Auto) Neut % (Auto) Lymph % (Auto) [place] % (Auto) Eos % (Auto) Baso % (Auto) Neut # (Auto) Lymph # (Auto) [place] # (Auto) Eos # (Auto) Baso # (Auto) WBC Differential Diff Scan Differential Comment Platelet Estimate Platelet Morphology Sodium Potassium Chloride Carbon Dioxide Anion Gap BUN Creatinine 1.27 Estimated GFR 59 L POC Glucose 159 H 167 H Random Glucose Calcium Ammonia Vancomycin Trough Random Vancomycin 02/19/18 02/19/18 02/19/18 06:06 07:38 07:38 WBC 6.1 RBC 2.87 L Hgb 8.1 L Hct 24.3 L MCV 84.9 MCH 28.3 MCHC 33.3 RDW 23.4 H Plt Count 91 L MPV 7.5 Prelim Diff (Auto) Slide review pending Neut % (Auto) 65.8 Lymph % (Auto) 9.4 [place] % (Auto) 18.6 H Eos % (Auto) 5.3 H Baso % (Auto) 0.9 Neut # (Auto) 4.0 Lymph # (Auto) 0.6 L [place] # (Auto) 1.1 H Eos # (Auto) 0.3 Baso # (Auto) 0.1 WBC Differential . Diff Scan Auto diff confirmed Differential Comment . Platelet Estimate Low L Platelet Morphology Normal Sodium Potassium Chloride Carbon Dioxide Anion Gap BUN Creatinine Estimated GFR POC Glucose 194 H Random Glucose Calcium Ammonia 55 H Vancomycin Trough Random Vancomycin 02/19/18 02/19/18 02/19/18 11:43 17:19 17:30 WBC RBC Hgb Hct MCV MCH MCHC RDW Plt Count MPV Prelim Diff (Auto) Neut % (Auto) Lymph % (Auto) [place] % (Auto) Eos % (Auto) Baso % (Auto) Neut # (Auto) Lymph # (Auto) [place] # (Auto) Eos # (Auto) Baso # (Auto) WBC Differential Diff Scan Differential Comment Platelet Estimate Platelet Morphology Sodium 138 Potassium 4.1 Chloride 106 Carbon Dioxide 23.5 Anion Gap 9 BUN 7 Creatinine 1.41 H Estimated GFR 53 L POC Glucose 178 H 156 H Random Glucose 140 H Calcium 8.2 L Ammonia Vancomycin Trough 22.6 H Random Vancomycin 02/19/18 02/20/18 02/20/18 23:48 05:10 07:11 WBC 6.7 RBC 3.10 L Hgb 8.7 L Hct 26.3 L MCV 84.8 MCH 28.2 MCHC 33.3 RDW 23.7 H Plt Count 89 L MPV 7.7 Prelim Diff (Auto) Neut % (Auto) Lymph % (Auto) [place] % (Auto) Eos % (Auto) Baso % (Auto) Neut # (Auto) Lymph # (Auto) [place] # (Auto) Eos # (Auto) Baso # (Auto) WBC Differential Diff Scan Differential Comment Platelet Estimate Platelet Morphology Sodium Potassium Chloride Carbon Dioxide Anion Gap BUN Creatinine Estimated GFR POC Glucose 129 H 127 H Random Glucose Calcium Ammonia Vancomycin Trough Random Vancomycin 02/20/18 02/20/18 02/20/18 07:11 07:11 12:09 WBC RBC Hgb Hct MCV MCH MCHC RDW Plt Count MPV Prelim Diff (Auto) Neut % (Auto) Lymph % (Auto) [place] % (Auto) Eos % (Auto) Baso % (Auto) Neut # (Auto) Lymph # (Auto) [place] # (Auto) Eos # (Auto) Baso # (Auto) WBC Differential Diff Scan Differential Comment Platelet Estimate Platelet Morphology Sodium 138 Potassium 4.1 Chloride 103 Carbon Dioxide 30.5 Anion Gap 5 BUN 8 Creatinine 1.39 H Estimated GFR 53 L POC Glucose 140 H Random Glucose 120 H Calcium 7.9 L Ammonia 34 H Vancomycin Trough Random Vancomycin 15.9 02/20/18 02/20/18 02/21/18 17:46 23:19 05:04 WBC RBC Hgb Hct MCV MCH MCHC RDW Plt Count MPV Prelim Diff (Auto) Neut % (Auto) Lymph % (Auto) [place] % (Auto) Eos % (Auto) Baso % (Auto) Neut # (Auto) Lymph # (Auto) [place] # (Auto) Eos # (Auto) Baso # (Auto) WBC Differential Diff Scan Differential Comment Platelet Estimate Platelet Morphology Sodium Potassium Chloride Carbon Dioxide Anion Gap BUN Creatinine Estimated GFR POC Glucose 189 H 176 H 150 H Random Glucose Calcium Ammonia Vancomycin Trough Random Vancomycin 02/21/18 02/21/18 02/21/18 05:17 05:17 05:17 WBC 5.4 RBC 3.06 L Hgb 8.6 L Hct 26.4 L MCV 86.2 MCH 28.0 MCHC 32.4 RDW 23.7 H Plt Count 81 L MPV 7.8 Prelim Diff (Auto) Slide review pending Neut % (Auto) 64.7 Lymph % (Auto) 10.0 [place] % (Auto) 19.3 H Eos % (Auto) 5.1 H Baso % (Auto) 0.9 Neut # (Auto) 3.5 Lymph # (Auto) 0.5 L [place] # (Auto) 1.0 H Eos # (Auto) 0.3 Baso # (Auto) 0.0 WBC Differential . Diff Scan Auto diff confirmed Differential Comment . Platelet Estimate Platelet Morphology Sodium 141 Potassium 4.1 Chloride 105 Carbon Dioxide 30.5 Anion Gap 6 BUN 9 Creatinine 1.41 H Estimated GFR 53 L POC Glucose Random Glucose 126 H Calcium 8.0 L Ammonia 46 H Vancomycin Trough Random Vancomycin 02/21/18 02/21/18 08:04 12:48 WBC RBC Hgb Hct MCV MCH MCHC RDW Plt Count MPV Prelim Diff (Auto) Neut % (Auto) Lymph % (Auto) [place] % (Auto) Eos % (Auto) Baso % (Auto) Neut # (Auto) Lymph # (Auto) [place] # (Auto) Eos # (Auto) Baso # (Auto) WBC Differential Diff Scan Differential Comment Platelet Estimate Platelet Morphology Sodium Potassium Chloride Carbon Dioxide Anion Gap BUN Creatinine Estimated GFR POC Glucose 110 151 H Random Glucose Calcium Ammonia Vancomycin Trough Random Vancomycin Result Diagrams: 02/21/18 05:17 02/21/18 05:17 Microbiology: Microbiology 02/14/18 23:10 Aerobic Blood Culture - Final Blood - Peripheral No growth in 5 days Anaerobic Blood Culture - Final QNS - See aerobic report. 02/14/18 23:18 Aerobic Blood Culture - Final Blood - Peripheral No growth in 5 days Anaerobic Blood Culture - Final QNS - See aerobic report. 02/18/18 11:40 Stool Occult Blood (TUSHAR) - Final Stool Hemoccult negative Imaging: ITS Impressions Abdomen Ultrasound 01/15/18 00:00 CONCLUSION: 1. No significant ascites. Chest CT 01/16/18 00:00 CONCLUSION: 1. Mild infiltrates are noted in the posterior lower lung hussein bilaterally suggestive of atelectasis. Otherwise, lung hussein are grossly clear. 2. Nonspecific 1.5 cm lymph node in the anterior superior mediastinum. 3. Nonspecific thickening involving the distal esophagus. If clinically indicated, a barium swallow could be performed on a nonemergent outpatient basis. Soft Tissue Neck CT 01/16/18 00:00 CONCLUSION: 1. Grossly unremarkable CT soft tissue neck for patient's age. 2. Nonspecific 1.5 cm lymph node in the anterior superior mediastinum. Head CT 01/20/18 06:00 CONCLUSION: 1. Negative for an acute process . Abdomen X-Ray 01/26/18 21:26 CONCLUSION: Gastric tube tip and side-port project over the mid abdomen. Venous Doppler Study 01/27/18 00:00 CONCLUSION: The study is negative for upper extremity deep venous thrombosis. Chest X-Ray 02/07/18 00:00 CONCLUSION: 1. No acute cardiopulmonary disease. Femur X-Ray 02/13/18 00:00 CONCLUSION: No acute bony abnormality is seen. Knee X-Ray 02/13/18 00:00 CONCLUSION: Negative examination Pelvis X-Ray 02/13/18 00:00 CONCLUSION: Negative AP pelvis. Abdomen/Pelvis CT 02/14/18 00:00 CONCLUSION: 1. Heterogeneous but mostly increased attenuation swelling of left iliopsoas and is more typical of an acute or subacute iliopsoas hematoma rather than abscess. This may be posttraumatic but is more likely related to anticoagulation and/or chronic liver disease related thrombocytopenia. 2. Cirrhosis with splenomegaly and portosystemic collaterals. Patent portal vein. 3. Slight mesenteric edema but no henry ascites. Hip MRI 02/14/18 00:00 CONCLUSION: 1. Probable left iliopsoas abscess. CT scan and pelvis with IV contrast is suggested. 2. Trace joint effusion in the left hip Procedures: 01/16: EGD with esophageal banding. 01/20: Intubation . 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 He moved to [place] 24 years ago. He was to his for 25 years prior to her 2 years ago. He has no children. He has 3 brothers but does not have contact information with him for any of them. One lives in [place], one in [place] and one in [place]. Spiritual: He is a Judaism Legal: No advance directives completed. Ethical issues impacting care: Patient lives in a homeless [facility] and has intermittent confusion when ammonia levels are elevated. . Important Contacts: Brother: Pillo Koroma, number unknown at this time . Prognosis: His prognosis is guarded. He has significant cirrhosis with recurrent ascites, esophageal varices and portal hypertension. He continues to drink in spite of being on a cessation protocol through [facility]. His ammonia is chronically elevated requiring lactulose every 4 hours and he has been noncompliant with medical therapy. It is unlikely that he will continue his medications once discharged and may also have difficulty maintaining alcohol cessation. He is at elevated risk of continued complications and decline. . Code Status: Full Code Plan: PLAN: Legal decision maker: At this time he appears capacitated to make his own decisions. He is alert, oriented and answering appropriately. He has requested that his brother, Pillo Koroma, be his decision maker in case of his incapacitation, however at this time has no contact information for Pillo. Via [employer] search a possible number has been identified and a message left for call back to establish identity. Patient's mother is alive and would be the next tier decision-maker should the patient become incapacitated. No contact information is available for her at this time either. [employer] did not return any information. Goals: Aggressive CODE STATUS: FULL CODE SYMPTOMS: * Weakness: Generalized weakness, worse and left leg after fall on 02/11, presumably sustaining an iliopsoas hematoma versus abscess. Participating with PT but overall grossly debilitated. Due to his weakness he may not be able to return to his apartment at [facility] and without a firm discharge plan, [facility] will not entertain [facility]. He has no funding for rehabilitation. * Pain: Complains of left leg pain constant, worsening with movement and weightbearing up to 12/18, being treated with Tylenol as needed and gabapentin 600 mg 3 times daily, which he states is ineffective. Dr. Gastelum recommended increasing gabapentin at at bedtime to 900 mg and continuing 600 mg 2 more times daily. Given his liver compromise, could consider changing Tylenol to tramadol, which he took as an outpatient and could consider changing Prozac to Cymbalta for better pain control. * Anxiety: Significantly anxious which is likely to contribute to him returning to alcohol to self medicate as an outpatient. He was previously on Ativan 0.5 mg twice daily scheduled and would recommend resuming that. Palliative care will continue to follow the patient during hospital course as condition evolves, to assist patient/decision-maker with understanding of their medical conditions, weighing benefits/burdens of treatment options, for clarification of goals of treatment. Additionally will assist with any symptoms of palliative concern. . Attestation Attestation: To help prompt me to consider important information that might be impacting today's encounter and assessment, information from prior notes written by myself or my colleagues may have been "brought forward" into today's note. My signature on this note, however, is an attestation that I personally performed the exam, history, and/or decision-making noted today, and, unless otherwise indicated, the interactions with patient, family, and staff as well as the review of records all occurred today. I also attest that the listed assessment and stated plan reflect my best clinical judgment today based on the combination of historical information, prior notes, and today's exam/ interactions. When time spent is documented, it refers only to time spent today by the signer, or if indicated, combined time spent today by collaborating physician/nurse practitioner. .
[2018-02-21] MEDS ORDERED: Acetaminophen Inj 650 MG/65 ML VIAL IV.SIG ONE (21:30)
[2018-02-22] MEDS: Insulin NovoLOG Aspart Correctional Sugar Inj SQ SCH ×4 (00:26→17:22)
[2018-02-22] MEDS: Artificial Tears Opth Drops 15 ML Bottle EACH EYE SCH ×3 (00:28→14:10)
[2018-02-22] MEDS: Acetaminophen 500 MG Tablet PO PRN ×4 (02:51→21:15)
[2018-02-22] MEDS: Gabapentin 300 MG Capsule PO SCH ×4 (09:11→21:15)
[2018-02-22] MEDS: Multivit/Folic Acid/Minerals Chewable Tablets CHEW SCH (09:11)
[2018-02-22] MEDS: FLUoxetine 10 MG Capsule PO SCH (09:12)
[2018-02-22] MEDS: Propranolol 40 MG Tablet PO SCH ×2 (09:12→21:14)
[2018-02-22] MEDS: rifAXIMin 550 MG Tablet PO SCH ×2 (09:12→21:14)
[2018-02-22] MEDS: Sodium Chloride 0.9% 2 ML Flush BID IV.FLUSH SCH ×2 (09:13→21:19)
[2018-02-22] MEDS: Senna/Docusate Sodium 8.6/50 MG Tablet PO SCH ×2 (09:14→21:19)
[2018-02-22] MEDS: Lidocaine 5% Patch T-DERMAL SCH (09:17)
[2018-02-22] MEDS ORDERED: Pharmacy Ordered Lab Info OTHER ONE (09:45)
--- NOTE | 2018-02-22 10:03 | P.PNFP ---
Subjective Interval history: Patient seen and examined today. No acute events overnight. Similar symptoms to yesterday. Patient believes he is regaining some strength in his left leg, however reports he still cannot extend his leg. Continues to have some mild pain in his left quadriceps, no pain/numbness/tingling distal to the area. Denies nausea, vomiting, fever, chills, abdominal pain, chest pain, shortness of breath, lightheadedness, dizziness. No other complaints today. <Florian Campbell - 02/22/18 10:02> Results - Labs Result diagrams: 02/24/18 09:30 02/24/18 09:30 <Antelmo Olvera - 02/24/18 12:49> Abnormal lab results 02/23/18 02/23/18 02/24/18 Range/Units 18:00 23:22 09:30 RBC 3.03 L (4.50-5.90) mil/mm3 Hgb 8.5 L (13.0-17.0) gm/dL Hct 26.5 L (39.0-51.0) % RDW 23.1 H (11.6-17.2) % Plt Count 81 L (150-450) th/mm3 [place] % (Auto) 15.3 H (0.0-8.0) % Eos % (Auto) 4.7 H (0.0-4.0) % Lymph # (Auto) 0.7 L (1.0-4.8) th/mm3 Chloride (98-107) meq/L Estimated GFR (>89) mL/min POC Glucose 135 H 151 H (68-110) mg/dl Alkaline Phosphatase (45-117) U/L Ammonia (11-32) mcmol/L Albumin (3.4-5.0) g/dL 02/24/18 02/24/18 02/24/18 Range/Units 09:30 09:38 12:23 RBC (4.50-5.90) mil/mm3 Hgb (13.0-17.0) gm/dL Hct (39.0-51.0) % RDW (11.6-17.2) % Plt Count (150-450) th/mm3 [place] % (Auto) (0.0-8.0) % Eos % (Auto) (0.0-4.0) % Lymph # (Auto) (1.0-4.8) th/mm3 Chloride 108 H (98-107) meq/L Estimated GFR 62 L (>89) mL/min POC Glucose 160 H (68-110) mg/dl Alkaline Phosphatase 197 H (45-117) U/L Ammonia 46 H (11-32) mcmol/L Albumin 2.7 L (3.4-5.0) g/dL Short CBC 02/24/18 Range/Units 09:30 WBC 5.8 (4.0-11.0) th/mm3 Hgb 8.5 L (13.0-17.0) gm/dL Hct 26.5 L (39.0-51.0) % Plt Count 81 L (150-450) th/mm3 BMP 02/24/18 09:30 Sodium 141 Potassium 4.3 Chloride 108 H Carbon Dioxide 28.2 BUN 11 Creatinine 1.22 Calcium 8.6 Liver Function 02/24/18 Range/Units 09:30 Total Bilirubin 1.0 (0.2-1.0) mg/dL AST 37 (15-37) U/L ALT 18 (12-78) U/L Alkaline Phosphatase 197 H (45-117) U/L Albumin 2.7 L (3.4-5.0) g/dL <Antelmo Olvera - 02/24/18 12:49> Abnormal lab results 02/21/18 02/21/18 02/22/18 Range/Units 12:48 17:35 00:17 POC Glucose 151 H 146 H 122 H (68-110) mg/dl <Florian Campbell - 02/22/18 10:02> Physical Exam Vital signs: Vital Signs 02/23/18 16:00 02/23/18 20:00 02/24/18 00:00 Temperature 98.2 F 99.2 F 98.7 F Pulse Rate 67 92 H 94 H Respiratory Rate 18 Blood Pressure 141/83 H 131/77 125/70 Pulse Oximetry 97 96 96 02/24/18 01:20 02/24/18 04:00 02/24/18 08:00 Temperature 100.4 F H 99.0 F Pulse Rate 93 H 86 Respiratory Rate 20 20 17 Blood Pressure 122/84 135/74 Pulse Oximetry 95 95 02/24/18 11:58 Temperature Pulse Rate Respiratory Rate 18 Blood Pressure Pulse Oximetry Intake & Output 02/23/18 02/24/18 02/24/18 18:59 06:59 18:59 Intake Total 1480 / 1480 456 / 456 Output Total 500 / 500 475 / 475 Balance 980 / 980 -19 -19 Intake: IV 1000 / 1000 216 / 216 LR 1000 mL Inj 1,000 ML @ 84 1000 / 1000 216 / 216 mls/hr IV.CONT .[id number] [facility] Rx# :[id number] Oral 480 / 480 240 / 240 Output: Urine 500 / 500 475 / 475 Other: Date of Last Bowel Movement 02/23/18 02/23/18 02/23/18 # Bowel Movements 2 <Antelmo Olvera - 02/24/18 12:49> Vital Signs 02/21/18 12:00 02/21/18 16:00 02/21/18 20:00 Temperature 99.1 F 100.1 F H 98.4 F Pulse Rate 92 H 84 92 H Respiratory Rate 18 20 16 Blood Pressure 136/85 157/87 H 124/66 Pulse Oximetry 95 97 95 02/21/18 23:15 02/22/18 00:00 02/22/18 04:00 Temperature 98.2 F 97.6 F Pulse Rate 84 80 Respiratory Rate 20 16 16 Blood Pressure 154/74 H 163/93 H Pulse Oximetry 95 02/22/18 05:10 02/22/18 08:00 Temperature 98.8 F Pulse Rate 82 Respiratory Rate 20 Blood Pressure 151/81 H 162/90 H Pulse Oximetry 95 Intake & Output 02/21/18 02/22/18 02/22/18 18:59 06:59 18:59 Intake Total 1250 / 1250 2809 / 2809 216 / 216 Output Total 1650 / 1650 1100 / 1100 Balance -400 / -400 1709 / 1709 216 / 216 Weight 96.5 kg Intake: IV 50 / 50 1849 / 1849 216 / 216 LR 1000 mL Inj 1,000 ML @ 84 1784 / 1784 216 / 216 mls/hr IV.CONT .[id number] [facility] Rx# :[id number] Ofirmev Inj 650 mg In 65 ml @ 65 / 65 400 mls/hr IV.SIG ONCE ONE Rx#: [id number] Zosyn 3.375 GM Premix 50 ML @ 50 / 50 100 mls/hr IV.SIG Q6H [facility] Rx#: [id number] Oral 1200 / 1200 960 / 960 Output: Urine 1650 / 1650 1100 / 1100 Other: Date of Last Bowel Movement 02/21/18 02/22/18 # Bowel Movements 1 # Incontinent Bowel Movements 3 <Florian Campbell - 02/22/18 10:02> Narrative: General: Well-developed, alert, and in no acute distress. Neurologic: Oriented x3 HEENT: Atraumatic, moist mucous membranes Neck: Supple, trachea midline Cardiac: Regular rate and rhythm without murmurs Pulmonary: Non-labored breathing. Lungs clear to auscultation bilaterally with good air movement Abdomen: Normal bowel sounds, soft, nontender, even to deep palpation in the left lower quadrant. Extremities: No edema, 2+ pedal pulses, capillary refill less than 2 seconds. 5 /5 bilateral ankle strength. 5/5 right leg strength. Left leg: Full passive ROM of the hip without pain. Left Hip strength: 0/5 flexion, 3/5 extension, 5/5 internal and external rotation. 2/5 knee extension , 3/5 knee flexion. Skin: Right heel stage 1 ulcer and sacral ulcer, stable in appearance. <Florian Campbell - 02/22/18 10:02> - Urinary Catheter Management 400 Cath placed during this visit: no <Antelmo Olvera - 02/24/18 12:49> no <Florian Campbell - 02/22/18 10:02> Condom Cath placed during this visit: no <Antelmo Olvera - 02/24/18 12:49> no <Florian Campbell - 02/22/18 10:02> Straight Cath placed during this visit: no <Antelmo Olvera - 02/24/18 12:49> yes, but has since been removed by the nurse <Florian Campbell - 02/22/18 10:02> Reason for continuing: Not indwelling catheter <Florian Campbell - 02/22/18 10 :02> Insertion date: 01/26/18 <Florian Campbell - 02/22/18 10:02> Insertion time: 17:30 <Florian Campbell - 02/22/18 10:02> Removal date: 01/26/18 <Florian Campbell - 02/22/18 10:02> Removal time: 17:35 <Florian Campbell - 02/22/18 10:02> Assessment and Plan - Assessment (1) Iliopsoas abscess on left Code(s): K68.12 - Psoas muscle abscess Status: Acute (2) Sepsis Code(s): A41.9 - Sepsis, unspecified organism Status: Acute (3) Esophageal varices in cirrhosis Code(s): K74.60 - Unspecified cirrhosis of liver; I85.10 - Secondary esophageal varices without bleeding Status: Chronic (4) Hypertension Code(s): I10 - Essential (primary) hypertension Status: Chronic (5) Alcohol abuse Code(s): F10.10 - Alcohol abuse, uncomplicated Status: Chronic (6) Depression with anxiety Code(s): F41.8 - Other specified anxiety disorders Status: Chronic (7) Cough Code(s): R05 - Cough Status: Resolved (8) Diabetes Code(s): E11.9 - Type 2 diabetes mellitus without complications Status: Chronic (9) Deep vein thrombosis (DVT) of brachial vein Code(s): I82.629 - Acute embolism and thrombosis of deep veins of unspecified upper extremity Status: Acute (10) Chest pain Code(s): R07.9 - Chest pain, unspecified Status: Resolved (11) Alcohol withdrawal Code(s): F10.239 - Alcohol dependence with withdrawal, unspecified Status: Resolved (12) Physical deconditioning Code(s): R53.81 - Other malaise Status: Acute <Antelmo Olvera - 02/24/18 12:49> (1) Iliopsoas abscess on left Code(s): K68.12 - Psoas muscle abscess Status: Acute (2) Sepsis Code(s): A41.9 - Sepsis, unspecified organism Status: Acute (3) Esophageal varices in cirrhosis Code(s): K74.60 - Unspecified cirrhosis of liver; I85.10 - Secondary esophageal varices without bleeding Status: Chronic Plan: see below (4) Hypertension Code(s): I10 - Essential (primary) hypertension Status: Chronic Plan: see below (5) Alcohol abuse Code(s): F10.10 - Alcohol abuse, uncomplicated Status: Chronic Plan: see below (6) Depression with anxiety Code(s): F41.8 - Other specified anxiety disorders Status: Chronic Plan: see below (7) Cough Code(s): R05 - Cough Status: Resolved Plan: see below (8) Diabetes Code(s): E11.9 - Type 2 diabetes mellitus without complications Status: Chronic Plan: See below (9) Deep vein thrombosis (DVT) of brachial vein Code(s): I82.629 - Acute embolism and thrombosis of deep veins of unspecified upper extremity Status: Acute Plan: See below (10) Chest pain Code(s): R07.9 - Chest pain, unspecified Status: Resolved Plan: see below (11) Alcohol withdrawal Code(s): F10.239 - Alcohol dependence with withdrawal, unspecified Status: Resolved Plan: see below (12) Physical deconditioning Code(s): R53.81 - Other malaise Status: Acute <Florian Campbell - 02/22/18 09:57> - Assessment and Plan Patient is a 52-year-old male with medical history significant for alcoholism, cirrhosis, and esophageal varices who was admitted with esophageal varices, status post banding x4. He has had altered mental status for most of his hospitalization. He was intubated, and then extubated on 01/27. Repeat EGD on 02/05 showed no active bleed. He has significant physical deconditioning from his hospitalization. On 02/14 he he developed pain and difficulty extending the left hip. He was found to have an area concerning for abscess on MRI without contrast of the hip, however CT was more consistent with hematoma. Physical deconditioning: His inability to move the left leg may be related to his abscess, however his symptoms are not well explained by this. His ability to activate different muscle groups waxes and wanes based on the day. -Physical therapy 7 days a week is ordered. Most recent PT recommendation is PT at rehab -Neurology recommended conservative management. They do not recommend EMG because it would take 3 weeks to show any changes on EMG. -Gabapentin increased to 600 BID, 900 HS -Rehabilitation medicine consulted, recommended increasing gabapentin, possible e-stim, knee brace, possible change Prozac to Cymbalta. Possible iliopsoas abscess: Met sepsis criteria with fever and pulse rate in the 90s. Complaint of inability to move left leg on 02/13/18. MRI of the hip without contrast showed potential iliopsoas abscess, CT was more consistent with hematoma. He has had some oscillating fevers, however now he is afebrile without leukocytosis. Interventional radiology contacted (Dr. Méndez) who did not recommend drainage or reimaging at this time unless clinical suspicion was extremely high due to the CT appearance. -Zosyn for suspected abscess -Blood cultures drawn 02/14 show final result has no growth Significant pain in the area, Toradol 10 mg 4 times daily started. Tylenol 500 every 6 hours for pain or fever Depression and anxiety: He does have a history of depression and has been on psychoactive medication in the past. He says that he is on gabapentin which helps with his depression and anxiety, and also Depakote. He is unsure what other medications he has been on. He reports that he is more depressed because he is stuck in the hospital with no one to talk to. Psychiatry consulted. Pastoral care consult -Prozac 10 daily, was recommended to change to Cymbalta however patient has cirrhosis and this may aggravate current status -Gabapentin 600 mg 2 times daily, 900 at night -Continue Home medication Depakote Esophageal varices in the context of cirrhosis: He is status post banding x4 at the beginning of this hospitalization. H&H stable. EGD repeated without active bleeds 02/05, gastroenterology has signed off. -Continue lactulose 4 times a day and Xifaxan 550 twice daily, he has been intermittently refusing his lactulose due to an inability to make it to the bedside commode. -P.o. Protonix twice daily -Propranolol 40mg BID Pressure ulcers: Stage I sacral ulcer and stage I pressure ulcer of the right heel. Spoke with wound care on 02/21/18, noted mild improvement of wounds. -Wound care nurse was consulted, please see their note for current wound care recommendations Hypertension: Amlodipine discontinued due to borderline hypotension, BP has been stable since -Bumex 0.5 mg daily -Propranolol as above Hyperlipidemia: -Continue home medication pravastatin 40 mg p.o. nightly Hypokalemia: -He has had some mild hypokalemia throughout his hospitalization. -Monitor and correct as needed Type 2 diabetes mellitus: He is continued to have blood sugars in the 100s and 200s -Continue low dose SS insulin -70/30: 20 units BID DVT of brachial vein (right): Last ultrasound on 01/28 was negative for DVT, DVT last seen the ultrasound on 01/19. -Lovenox 40mg daily Alcohol withdrawal: resolved He has a significant history of alcohol abuse and had been receiving treatment at [facility]. He had not been sober at the time of admission. He was transferred to the ICU secondary to withdraw. This has now resolved and he is not currently on any benzodiazepines. Fluids: Adequate p.o. intake Electrolytes: monitor and replete as needed. Nutrition: Regular diet GI prophylaxis: PO Protonix VTE prophylaxis: Lovenox 40mg q24h <Florian Campbell - 02/22/18 10:02> - Attending Attestation See the residents documentation for details. I saw and evaluated the patient regarding the [place] portions of this evaluation and agree with the residents findings and plans as written. Parts of this note were created using [employer] voice recognition software program. While efforts were made to correct any mistakes made by this software, some mistakes, errors, and omissions may remain in the final note that were not caught when the note was originally created. Plan of care was discussed and agreed upon with the patient as specifically documented in the above note. An opportunity to ask questions with explanation was provided. Patient voiced understanding on all information reviewed and discussed. <Antelmo Olvera - 02/24/18 12:49>
[2018-02-22 10:32] LABS: Hematocrit 28.8 % (39.0-51.0); Hemoglobin 9.2 gm/dL (13.0-17.0); Mean Corpuscular HGB Conc 31.9 % (32.0-36.0); Mean Corpuscular Hemoglobin 27.6 pg (27.0-34.0); Mean Corpuscular Volume 86.4 fL (80.0-100.0); Mean Platelet Volume 7.4 fL (7.0-11.0); Platelet Count 85 th/mm3 (150-450); Red Blood Count 3.34 mil/mm3 (4.50-5.90); Red Cell Distribution Width 23.1 % (11.6-17.2); White Blood Count 5.9 th/mm3 (4.0-11.0)
[2018-02-22] MEDS: Ferrous Sulfate 325 MG Tablet PO SCH ×2 (12:16→17:48)
[2018-02-22] MEDS: Enoxaparin Inj 40 MG/0.4 ML Syringe SQ SCH (14:08)
[2018-02-23] MEDS: Insulin NovoLOG Aspart Correctional Sugar Inj SQ SCH ×4 (00:11→18:08)
[2018-02-23] MEDS: Artificial Tears Opth Drops 15 ML Bottle EACH EYE SCH ×3 (00:12→16:10)
[2018-02-23] MEDS: Acetaminophen 500 MG Tablet PO PRN ×3 (04:02→18:36)
[2018-02-23] MEDS: Lidocaine 5% Patch T-DERMAL SCH (08:53)
[2018-02-23] MEDS: Multivit/Folic Acid/Minerals Chewable Tablets CHEW SCH (08:55)
[2018-02-23] MEDS: FLUoxetine 10 MG Capsule PO SCH (08:55)
[2018-02-23] MEDS: rifAXIMin 550 MG Tablet PO SCH ×2 (08:55→20:48)
[2018-02-23] MEDS: Propranolol 40 MG Tablet PO SCH ×2 (08:56→20:48)
[2018-02-23] MEDS: Gabapentin 300 MG Capsule PO SCH ×4 (08:56→20:48)
[2018-02-23] MEDS: Senna/Docusate Sodium 8.6/50 MG Tablet PO SCH ×2 (08:57→20:49)
[2018-02-23] MEDS: Sodium Chloride 0.9% 2 ML Flush BID IV.FLUSH SCH ×2 (08:57→20:49)
[2018-02-23] MEDS: Meloxicam 7.5 MG Tablet PO SCH (09:30)
--- NOTE | 2018-02-23 09:34 | P.PNFP ---
Subjective Interval history: There are no acute events overnight. He is laying in the chair this morning, and has difficulty with repositioning. He still reports that he cannot extend his leg. He is having continued and stable pain in the left lateral thigh. He denies fever, chills, lightheadedness, dizziness, chest pain, shortness of breath, nausea, vomiting, abdominal pain. He has no new complaints today. <Sin Victoria - 02/23/18 09:33> Results - Labs Result diagrams: 02/24/18 09:30 02/24/18 09:30 <Antelmo Olvera - 02/24/18 12:55> Abnormal lab results 02/23/18 02/23/18 02/24/18 Range/Units 18:00 23:22 09:30 RBC 3.03 L (4.50-5.90) mil/mm3 Hgb 8.5 L (13.0-17.0) gm/dL Hct 26.5 L (39.0-51.0) % RDW 23.1 H (11.6-17.2) % Plt Count 81 L (150-450) th/mm3 [place] % (Auto) 15.3 H (0.0-8.0) % Eos % (Auto) 4.7 H (0.0-4.0) % Lymph # (Auto) 0.7 L (1.0-4.8) th/mm3 Chloride (98-107) meq/L Estimated GFR (>89) mL/min POC Glucose 135 H 151 H (68-110) mg/dl Alkaline Phosphatase (45-117) U/L Ammonia (11-32) mcmol/L Albumin (3.4-5.0) g/dL 02/24/18 02/24/18 02/24/18 Range/Units 09:30 09:38 12:23 RBC (4.50-5.90) mil/mm3 Hgb (13.0-17.0) gm/dL Hct (39.0-51.0) % RDW (11.6-17.2) % Plt Count (150-450) th/mm3 [place] % (Auto) (0.0-8.0) % Eos % (Auto) (0.0-4.0) % Lymph # (Auto) (1.0-4.8) th/mm3 Chloride 108 H (98-107) meq/L Estimated GFR 62 L (>89) mL/min POC Glucose 160 H (68-110) mg/dl Alkaline Phosphatase 197 H (45-117) U/L Ammonia 46 H (11-32) mcmol/L Albumin 2.7 L (3.4-5.0) g/dL Short CBC 02/24/18 Range/Units 09:30 WBC 5.8 (4.0-11.0) th/mm3 Hgb 8.5 L (13.0-17.0) gm/dL Hct 26.5 L (39.0-51.0) % Plt Count 81 L (150-450) th/mm3 BMP 02/24/18 09:30 Sodium 141 Potassium 4.3 Chloride 108 H Carbon Dioxide 28.2 BUN 11 Creatinine 1.22 Calcium 8.6 Liver Function 02/24/18 Range/Units 09:30 Total Bilirubin 1.0 (0.2-1.0) mg/dL AST 37 (15-37) U/L ALT 18 (12-78) U/L Alkaline Phosphatase 197 H (45-117) U/L Albumin 2.7 L (3.4-5.0) g/dL <Antelmo Olvera - 02/24/18 12:55> Abnormal lab results 02/22/18 02/22/18 02/22/18 Range/Units 10:15 12:05 17:18 RBC 3.34 L (4.50-5.90) mil/mm3 Hgb 9.2 L (13.0-17.0) gm/dL Hct 28.8 L (39.0-51.0) % MCHC 31.9 L (32.0-36.0) % RDW 23.1 H (11.6-17.2) % Plt Count 85 L (150-450) th/mm3 POC Glucose 191 H 112 H (68-110) mg/dl 02/23/18 Range/Units 00:10 RBC (4.50-5.90) mil/mm3 Hgb (13.0-17.0) gm/dL Hct (39.0-51.0) % MCHC (32.0-36.0) % RDW (11.6-17.2) % Plt Count (150-450) th/mm3 POC Glucose 123 H (68-110) mg/dl Short CBC 02/22/18 Range/Units 10:15 WBC 5.9 (4.0-11.0) th/mm3 Hgb 9.2 L (13.0-17.0) gm/dL Hct 28.8 L (39.0-51.0) % Plt Count 85 L (150-450) th/mm3 <Sin Victoria - 02/23/18 09:33> Physical Exam Vital signs: Vital Signs 02/23/18 16:00 02/23/18 20:00 02/24/18 00:00 Temperature 98.2 F 99.2 F 98.7 F Pulse Rate 67 92 H 94 H Respiratory Rate 20 18 18 Blood Pressure 141/83 H 131/77 125/70 Pulse Oximetry 97 96 96 02/24/18 01:20 02/24/18 04:00 02/24/18 08:00 Temperature 100.4 F H 99.0 F Pulse Rate 93 H 86 Respiratory Rate 20 20 17 Blood Pressure 122/84 135/74 Pulse Oximetry 95 95 02/24/18 11:58 Temperature Pulse Rate Respiratory Rate 18 Blood Pressure Pulse Oximetry Intake & Output 02/23/18 02/24/18 02/24/18 18:59 06:59 18:59 Intake Total 1480 / 1480 456 / 456 Output Total 500 / 500 475 / 475 Balance 980 / 980 -19 Intake: IV 1000 / 1000 216 / 216 LR 1000 mL Inj 1,000 ML @ 84 1000 / 1000 216 / 216 mls/hr IV.CONT .[id number] [facility] Rx# :[id number] Oral 480 / 480 240 / 240 Output: Urine 500 / 500 475 / 475 Other: Date of Last Bowel Movement 02/23/18 02/23/18 02/23/18 # Bowel Movements 2 <Antelmo Olvera - 02/24/18 12:55> Vital Signs 02/22/18 12:00 02/22/18 16:00 02/22/18 20:00 Temperature 98.8 F 97.0 F L 98.6 F Pulse Rate 85 75 89 Respiratory Rate 20 20 20 Blood Pressure 132/86 155/83 H 121/76 Pulse Oximetry 94 L 94 L 96 02/23/18 00:00 02/23/18 04:00 Temperature 98.4 F 97.2 F L Pulse Rate 86 81 Respiratory Rate 20 20 Blood Pressure 139/81 133/82 Pulse Oximetry 95 97 Intake & Output 02/22/18 02/23/18 02/23/18 18:59 06:59 18:59 Intake Total 936 / 936 936 / 936 Output Total 1450 / 1450 600 / 600 Balance -514 / -514 336 / 336 Intake: IV 216 / 216 216 / 216 LR 1000 mL Inj 1,000 ML @ 84 216 / 216 216 / 216 mls/hr IV.CONT .[id number] [facility] Rx# :[id number] Oral 720 / 720 720 / 720 Output: Urine 1450 / 1450 600 / 600 Other: Date of Last Bowel Movement 02/22/18 02/22/18 # Bowel Movements 4 # Incontinent Bowel Movements 3 <Sin Victoria - 02/23/18 09:33> Narrative: General: Well-developed, alert, and in no acute distress. Neurologic: Oriented x3 HEENT: Atraumatic, moist mucous membranes Neck: Supple, trachea midline Cardiac: Regular rate and rhythm without murmurs Pulmonary: Non-labored breathing. Lungs clear to auscultation bilaterally with good air movement Abdomen: Normal bowel sounds, soft, nontender, even to deep palpation in the left lower quadrant. Extremities: No edema, 2+ pedal pulses, capillary refill less than 2 seconds. 5 /5 bilateral ankle strength. 5/5 right leg strength. Left leg: Full passive ROM of the hip without pain. Left Hip strength: 0/5 flexion, 2/5 extension, 5/5 internal and external rotation. 1/5 knee extension , 3/5 knee flexion. Skin: Right heel stage 1 ulcer and sacral ulcer, stable in appearance. <Sin Victoria - 02/23/18 09:33> - Urinary Catheter Management 400 Cath placed during this visit: no <Antelmo Olvera - 02/24/18 12:55> no <Sin Victoria - 02/23/18 09:33> Condom Cath placed during this visit: no <Antelmo Olvera - 02/24/18 12:55> no <Sin Victoria - 02/23/18 09:33> Straight Cath placed during this visit: no <Antelmo Olvera - 02/24/18 12:55> yes, but has since been removed by the nurse <NedaSin trevizo - 02/23/18 09:33> Reason for continuing: Not indwelling catheter <NedaSin trevizo - 09:33> Insertion date: 01/26/18 <Sin Victoria - 02/23/18 09:33> Insertion time: 17:30 <NedasanthoshSin J - 02/23/18 09:33> Removal date: 01/26/18 <NedaSin trevizo - 02/23/18 09:33> Removal time: 17:35 <NedaSin trevizo - 02/23/18 09:33> Assessment and Plan - Assessment (1) Iliopsoas abscess on left Code(s): K68.12 - Psoas muscle abscess Status: Acute (2) Sepsis Code(s): A41.9 - Sepsis, unspecified organism Status: Acute (3) Esophageal varices in cirrhosis Code(s): K74.60 - Unspecified cirrhosis of liver; I85.10 - Secondary esophageal varices without bleeding Status: Chronic (4) Hypertension Code(s): I10 - Essential (primary) hypertension Status: Chronic (5) Alcohol abuse Code(s): F10.10 - Alcohol abuse, uncomplicated Status: Chronic (6) Depression with anxiety Code(s): F41.8 - Other specified anxiety disorders Status: Chronic (7) Cough Code(s): R05 - Cough Status: Resolved (8) Diabetes Code(s): E11.9 - Type 2 diabetes mellitus without complications Status: Chronic (9) Deep vein thrombosis (DVT) of brachial vein Code(s): I82.629 - Acute embolism and thrombosis of deep veins of unspecified upper extremity Status: Acute (10) Chest pain Code(s): R07.9 - Chest pain, unspecified Status: Resolved (11) Alcohol withdrawal Code(s): F10.239 - Alcohol dependence with withdrawal, unspecified Status: Resolved (12) Physical deconditioning Code(s): R53.81 - Other malaise Status: Acute <Antelmo Olvera - 02/24/18 12:55> (1) Iliopsoas abscess on left Code(s): K68.12 - Psoas muscle abscess Status: Acute (2) Sepsis Code(s): A41.9 - Sepsis, unspecified organism Status: Acute (3) Esophageal varices in cirrhosis Code(s): K74.60 - Unspecified cirrhosis of liver; I85.10 - Secondary esophageal varices without bleeding Status: Chronic Plan: see below (4) Hypertension Code(s): I10 - Essential (primary) hypertension Status: Chronic Plan: see below (5) Alcohol abuse Code(s): F10.10 - Alcohol abuse, uncomplicated Status: Chronic Plan: see below (6) Depression with anxiety Code(s): F41.8 - Other specified anxiety disorders Status: Chronic Plan: see below (7) Cough Code(s): R05 - Cough Status: Resolved Plan: see below (8) Diabetes Code(s): E11.9 - Type 2 diabetes mellitus without complications Status: Chronic Plan: See below (9) Deep vein thrombosis (DVT) of brachial vein Code(s): I82.629 - Acute embolism and thrombosis of deep veins of unspecified upper extremity Status: Acute Plan: See below (10) Chest pain Code(s): R07.9 - Chest pain, unspecified Status: Resolved Plan: see below (11) Alcohol withdrawal Code(s): F10.239 - Alcohol dependence with withdrawal, unspecified Status: Resolved Plan: see below (12) Physical deconditioning Code(s): R53.81 - Other malaise Status: Acute <Sin Victoria - 02/23/18 09:20> - Assessment and Plan Patient is a 52-year-old male with medical history significant for alcoholism, cirrhosis, and esophageal varices who was admitted with esophageal varices, status post banding x4. He has had altered mental status for most of his hospitalization. He was intubated, and then extubated on 01/27. Repeat EGD on 02/05 showed no active bleed. He has significant physical deconditioning from his hospitalization. On 02/14 he he developed pain and difficulty extending the left hip. He was found to have an area concerning for abscess on MRI without contrast of the hip, however CT was more consistent with hematoma. Physical deconditioning: His inability to move the left leg may be related to his iliopsoas hematoma, however his symptoms are not well explained by this. His ability to activate different muscle groups waxes and wanes based on the day. -Physical therapy 7 days a week is ordered. Most recent PT recommendation is PT at rehab -Neurology recommended conservative management. They do not recommend EMG because it would take 3 weeks to show any changes on EMG. -Rehabilitation medicine consulted, recommended increasing gabapentin, possible e-stim, knee brace, possible change Prozac to Cymbalta. Possible iliopsoas abscess: Met sepsis criteria with fever and pulse rate in the 90s. Complaint of inability to move left leg on 02/13/18. MRI of the hip without contrast showed potential iliopsoas abscess, CT was more consistent with hematoma. He has had some oscillating fevers, however now he is afebrile without leukocytosis. Interventional radiology contacted (Dr. Méndez) who did not recommend drainage or reimaging at that time unless clinical suspicion was extremely high due to the CT appearance. Blood cultures were negative. Meloxicam 7.5 mg daily -Hydrocodone/APAP 5/325 for before physical therapy Tylenol 500 every 6 hours for pain or fever Depression and anxiety: He does have a history of depression and has been on psychoactive medication in the past. He says that he is on gabapentin which helps with his depression and anxiety, and also Depakote. He is unsure what other medications he has been on. He reports that he is more depressed because he is stuck in the hospital with no one to talk to. Psychiatry consulted. Pastoral care consult -Prozac 10 daily, was recommended to change to Cymbalta however patient has cirrhosis and this may aggravate current status -Gabapentin 600 mg 2 times daily, 900 at night -Continue Home medication Depakote Esophageal varices in the context of cirrhosis: He is status post banding x4 at the beginning of this hospitalization. H&H stable. EGD repeated without active bleeds 02/05, gastroenterology has signed off. -Continue lactulose 3 times a day (0700, 1100, & 1500) and Xifaxan 550 twice daily, he has been intermittently refusing his lactulose due to an inability to make it to the bedside commode. -P.o. Protonix twice daily -Propranolol 40mg BID Pressure ulcers: Stage I sacral ulcer and stage I pressure ulcer of the right heel. Spoke with wound care on 02/21/18, noted mild improvement of wounds. -Wound care nurse was consulted, please see their note for current wound care recommendations Hypertension: Amlodipine discontinued due to borderline hypotension, BP has been stable since -Bumex 0.5 mg daily -Propranolol as above Hyperlipidemia: -Continue home medication pravastatin 40 mg p.o. nightly Type 2 diabetes mellitus: He is continued to have blood sugars in the 100s and 200s -Continue low dose SS insulin -70/30: 20 units BID DVT of brachial vein (right): Last ultrasound on 01/28 was negative for DVT, DVT last seen the ultrasound on 01/19. -Lovenox 40mg daily Alcohol withdrawal: resolved He has a significant history of alcohol abuse and had been receiving treatment at [facility]. He had not been sober at the time of admission. He was transferred to the ICU secondary to withdraw. This has now resolved and he is not currently on any benzodiazepines. Fluids: Adequate p.o. intake Electrolytes: monitor and replete as needed. Nutrition: Regular diet GI prophylaxis: PO Protonix as above VTE prophylaxis: Lovenox 40mg q24h <Sin Victoria - 02/23/18 09:33> - Attending Attestation See the residents documentation for details. I saw and evaluated the patient regarding the manley portions of this evaluation and agree with the residents findings and plans as written. Parts of this note were created using [employer] voice recognition software program. While efforts were made to correct any mistakes made by this software, some mistakes, errors, and omissions may remain in the final note that were not caught when the note was originally created. Plan of care was discussed and agreed upon with the patient as specifically documented in the above note. An opportunity to ask questions with explanation was provided. Patient voiced understanding on all information reviewed and discussed. <Antelmo Olvera - 02/24/18 12:55>
[2018-02-23 10:50] LABS: Baso # (Auto) 0.1 th/mm3 (0.0-0.2); Baso % (Auto) 0.7 % (0.0-2.0); Eos # (Auto) 0.3 th/mm3 (0.0-0.4); Eos % (Auto) 3.8 % (0.0-4.0); Hematocrit 28.3 % (39.0-51.0); Hemoglobin 9.2 gm/dL (13.0-17.0); Lymph # (Auto) 0.7 th/mm3 (1.0-4.8); Lymph % (Auto) 10.2 % (9.0-44.0); Mean Corpuscular HGB Conc 32.4 % (32.0-36.0); Mean Corpuscular Hemoglobin 27.9 pg (27.0-34.0); Mean Corpuscular Volume 86.2 fL (80.0-100.0); Mean Platelet Volume 7.8 fL (7.0-11.0); Mono % (Auto) 13.8 % (0.0-8.0); Neut # (Auto) 5.1 th/mm3 (1.8-7.7); Neut % (Auto) 71.5 % (16.0-70.0); Platelet Count 90 th/mm3 (150-450); Red Blood Count 3.29 mil/mm3 (4.50-5.90); Red Cell Distribution Width 23.6 % (11.6-17.2); White Blood Count 7.1 th/mm3 (4.0-11.0)
[2018-02-23 11:16] LABS: Alanine Aminotransferase 18 U/L (12-78); Albumin 2.7 g/dL (3.4-5.0); Anion Gap 6 meq/L (5-15); Aspartate Aminotransferase 35 U/L (15-37); Calcium 8.2 mg/dL (8.5-10.1); Carbon Dioxide 27.8 meq/L (21.0-32.0); Chloride 105 meq/L (98-107); Glomerular Filtration Rate 58 mL/min (>89); Glucose,Random 171 mg/dL (74-106); Potassium 4.4 meq/L (3.5-5.1); Sodium 139 meq/L (136-145)
[2018-02-23 11:19] LABS: Alkaline Phosphatase 198 U/L (45-117); Blood Urea Nitrogen 10 mg/dL (7-18); Total Protein 7.1 g/dL (6.4-8.2)
[2018-02-23] MEDS: Ferrous Sulfate 325 MG Tablet PO SCH ×2 (11:55→16:10)
--- NOTE | 2018-02-23 12:12 | P.PNADD ---
Addendum to Inpatient Note Reason for Addendum: Additional Documentation Additional information: Off Service Note Hospital Course: 52-year-old male PMH of alcoholism, cirrhosis and esophageal variceal GI bleed who presented to the ED with complaint of umbilical abdominal pain, nausea, and vomiting on 01/15 and was put on Cipro and octrotide drip (both DCed now). On 01/16 EGD performed with banding x4 and biopsy was performed which showed mild acute non-specific gastritis (negative for metaplasia and dysplasia). 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 Found to have normal evaluation of vocal cords with laryngoscope and neck CT no abnormal findings and no evidence of laryngeal lesion. Given persistant cough pulmonology consulted recommending aerosol treatments and tessalon 200 TID as well as follow up pulmonary function studies. Sputum cultures showed MRSA. Patient had worsening alcohol withdrawal symptoms and was transferred to critical care on 01/18 and was intubated on 01/19. US RUE showed a brachial vein DVT on 01/19. He was started on Lovenox 40 SQ daily (ppx dose due to recent GI bleed). He improved and was extubated on 01/27. US on 01/28 showed resolution of the DVT. He was transferred from the unit to a [facility] on 02/03. EGD was performed on 02/05 which showed multiple ulcers from recent banding and portal hypertensive gastropy. Due to his deconditioning, PT recommended he receive continued PT at rehab, but his insurance was unwilling to cover this. He fell on 02/11 while attempting to get to his bedside commode. On 02/13 he started having difficulty moving his left leg. MRI of the hip without contrast showed possible iliopsoas abscess, but CT was very consistent with hematoma. He had also had some oscillating fever and was therefore started on Vancomycin and Zosyn for possible abscess. IR did not recommend drainage or further imaging. His fever resolved and the Vanc/Zosyn was DCed. He is still having difficulty moving the left leg. He was evaluated by neurology and PM&R without and definitive diagnosis or recommendation of further diagnostic studies at this time. He is able to move different muscle groups on different days and has been able to ambulate with a walker with difficulty with PT. Please see A&P of most recent progress note for discussion of current hospital problems and management.
[2018-02-23] MEDS: Enoxaparin Inj 40 MG/0.4 ML Syringe SQ SCH (16:10)
[2018-02-24] MEDS: Insulin NovoLOG Aspart Correctional Sugar Inj SQ SCH ×5 (00:37→23:12)
[2018-02-24] MEDS: Artificial Tears Opth Drops 15 ML Bottle EACH EYE SCH ×4 (00:37→22:12)
[2018-02-24] MEDS: Acetaminophen 500 MG Tablet PO PRN ×3 (00:47→12:40)
[2018-02-24] MEDS: Lidocaine 5% Patch T-DERMAL SCH (09:16)
[2018-02-24] MEDS: Multivit/Folic Acid/Minerals Chewable Tablets CHEW SCH (09:20)
[2018-02-24] MEDS: Meloxicam 7.5 MG Tablet PO SCH (09:20)
[2018-02-24] MEDS: Propranolol 40 MG Tablet PO SCH ×2 (09:21→22:07)
[2018-02-24] MEDS: Sodium Chloride 0.9% 2 ML Flush BID IV.FLUSH SCH ×2 (09:21→22:07)
[2018-02-24] MEDS: Gabapentin 300 MG Capsule PO SCH ×4 (09:21→22:07)
[2018-02-24] MEDS: FLUoxetine 10 MG Capsule PO SCH (09:21)
--- NOTE | 2018-02-24 09:35 | P.PNFP ---
Subjective Interval history: Mr. Koroma had no acute events overnight. His morning he complains of pain in his left leg and cannot lift it off of the chair. He can move his left toes and foot however. He complains of pain that is 10 out of 10 on pain scale and believes he will be able to work better with PT if his pain is better controlled. PT has not been to see him for the last 3 days. He also complains of profuse diarrhea and pain with stooling and skin breakdown on his bottom that is being treated by wound care. Denies chest pain, shortness of breath, vomiting, dysuria, abdominal pain; however, had fever to 100.4 this morning with chills that was adequately treated with as needed Tylenol. Results - Labs Result diagrams: 02/23/18 10:17 02/23/18 10:17 Abnormal lab results 02/23/18 02/23/18 02/23/18 Range/Units 10:17 10:17 11:53 RBC 3.29 L (4.50-5.90) mil/mm3 Hgb 9.2 L (13.0-17.0) gm/dL Hct 28.3 L (39.0-51.0) % RDW 23.6 H (11.6-17.2) % Plt Count 90 L (150-450) th/mm3 Neut % (Auto) 71.5 H (16.0-70.0) % [place] % (Auto) 13.8 H (0.0-8.0) % Lymph # (Auto) 0.7 L (1.0-4.8) th/mm3 [place] # (Auto) 1.0 H (0.0-0.9) th/mm3 Estimated GFR 58 L (>89) mL/min POC Glucose 190 H (68-110) mg/dl Random Glucose 171 H (74-106) mg/dL Calcium 8.2 L (8.5-10.1) mg/dL Alkaline Phosphatase 198 H (45-117) U/L Albumin 2.7 L (3.4-5.0) g/dL 02/23/18 02/23/18 Range/Units 18:00 23:22 RBC (4.50-5.90) mil/mm3 Hgb (13.0-17.0) gm/dL Hct (39.0-51.0) % RDW (11.6-17.2) % Plt Count (150-450) th/mm3 Neut % (Auto) (16.0-70.0) % [place] % (Auto) (0.0-8.0) % Lymph # (Auto) (1.0-4.8) th/mm3 [place] # (Auto) (0.0-0.9) th/mm3 Estimated GFR (>89) mL/min POC Glucose 135 H 151 H (68-110) mg/dl Random Glucose (74-106) mg/dL Calcium (8.5-10.1) mg/dL Alkaline Phosphatase (45-117) U/L Albumin (3.4-5.0) g/dL Short CBC 02/23/18 Range/Units 10:17 WBC 7.1 (4.0-11.0) th/mm3 Hgb 9.2 L (13.0-17.0) gm/dL Hct 28.3 L (39.0-51.0) % Plt Count 90 L (150-450) th/mm3 BMP 02/23/18 10:17 Sodium 139 Potassium 4.4 Chloride 105 Carbon Dioxide 27.8 BUN 10 Creatinine 1.30 Calcium 8.2 L Liver Function 02/23/18 Range/Units 10:17 Total Bilirubin 0.9 (0.2-1.0) mg/dL AST 35 (15-37) U/L ALT 18 (12-78) U/L Alkaline Phosphatase 198 H (45-117) U/L Albumin 2.7 L (3.4-5.0) g/dL Physical Exam Vital signs: Vital Signs 02/23/18 12:00 02/23/18 16:00 02/23/18 20:00 Temperature 99.8 F H 98.2 F 99.2 F Pulse Rate 81 67 92 H Respiratory Rate 20 20 18 Blood Pressure 164/81 H 141/83 H 131/77 Pulse Oximetry 98 97 96 02/24/18 00:00 02/24/18 01:20 02/24/18 04:00 Temperature 98.7 F 100.4 F H Pulse Rate 94 H 93 H Respiratory Rate 18 20 20 Blood Pressure 125/70 122/84 Pulse Oximetry 96 95 Intake & Output 12/16/18 12/17/18 12/17/18 18:59 06:59 18:59 Intake Total 1480 / 1480 456 / 456 Output Total 500 / 500 475 / 475 Balance 980 / 980 -19 / -19 Intake: IV 1000 / 1000 216 / 216 LR 1000 mL Inj 1,000 ML @ 84 1000 / 1000 216 / 216 mls/hr IV.CONT .[id number] [facility] Rx# :[id number] Oral 480 / 480 240 / 240 Output: Urine 500 / 500 475 / 475 Other: Date of Last Bowel Movement 02/23/18 02/23/18 # Bowel Movements 2 Narrative: General: Well-developed, alert, and in no acute distress. Neurologic: Oriented x3. Normal speech. CN II-XII grossly intact. HEENT: Atraumatic, moist mucous membranes Neck: Supple, trachea midline. Surgical scar on right neck with sutures in place, clean/dry/intact. Cardiac: Regular rate and rhythm without murmur, rub or gallop. Pulmonary: Non-labored breathing. Right lung clear to auscultation; left lung hussein with diminished air movement. Abdomen: Normal bowel sounds, soft, nontender, nondistended. Extremities: No edema, 2+ pedal pulses. 5/5 bilateral ankle strength. 5/5 right leg strength. Left leg: Full passive ROM of the hip without pain. Able to plantar and dorsiflex foot and move toes. Sensation intact. Unable to extend LLE at knee or hip. - Urinary Catheter Management Straight Cath placed during this visit: yes, but has since been removed by the nurse Reason for continuing: Not indwelling catheter Insertion date: 01/26/18 Insertion time: 17:30 Removal date: 01/26/18 Removal time: 17:35 Condom Cath placed during this visit: no 400 Cath placed during this visit: no Assessment and Plan - Assessment (1) Iliopsoas abscess on left Code(s): K68.12 - Psoas muscle abscess Status: Acute (2) Sepsis Code(s): A41.9 - Sepsis, unspecified organism Status: Acute (3) Esophageal varices in cirrhosis Code(s): K74.60 - Unspecified cirrhosis of liver; I85.10 - Secondary esophageal varices without bleeding Status: Chronic Plan: see below (4) Hypertension Code(s): I10 - Essential (primary) hypertension Status: Chronic Plan: see below (5) Alcohol abuse Code(s): F10.10 - Alcohol abuse, uncomplicated Status: Chronic Plan: see below (6) Depression with anxiety Code(s): F41.8 - Other specified anxiety disorders Status: Chronic Plan: see below (7) Cough Code(s): R05 - Cough Status: Resolved Plan: see below (8) Diabetes Code(s): E11.9 - Type 2 diabetes mellitus without complications Status: Chronic Plan: See below (9) Deep vein thrombosis (DVT) of brachial vein Code(s): I82.629 - Acute embolism and thrombosis of deep veins of unspecified upper extremity Status: Acute Plan: See below (10) Chest pain Code(s): R07.9 - Chest pain, unspecified Status: Resolved Plan: see below (11) Alcohol withdrawal Code(s): F10.239 - Alcohol dependence with withdrawal, unspecified Status: Resolved Plan: see below (12) Physical deconditioning Code(s): R53.81 - Other malaise Status: Acute - Assessment and Plan 52 YO male with/PMHx alcoholism, cirrhosis, and esophageal varices admitted with esophageal varices, status post banding x4. He has had altered mental status for most of his hospitalization. He was intubated, and then extubated on 01/27. Repeat EGD on 02/05 showed no active bleed. He has significant physical deconditioning from his hospitalization. On 02/14 he he developed pain and difficulty extending the left hip. He was found to have an area concerning for abscess on MRI without contrast of the hip; however, CT was more consistent with hematoma. 1. Physical deconditioning: His inability to move the left leg may be related to his iliopsoas hematoma, however his symptoms are not well explained by this. His ability to activate different muscle groups waxes and wanes based on the day. -PT -OOB to chair -IS -Rehabilitation medicine consulted: recommended increasing gabapentin, possible e-stim, knee brace, possible change Prozac to Cymbalta. 2. Possible iliopsoas abscess vs hematoma: Met sepsis criteria with fever and pulse rate in the 90s. Complaint of inability to move left leg on 02/13/18. MRI of the hip without contrast showed potential iliopsoas abscess, CT was more consistent with hematoma. He has had some oscillating fevers, however now he is afebrile without leukocytosis. Interventional radiology contacted (Dr. Méndez) who did not recommend drainage or reimaging at that time unless clinical suspicion was extremely high due to the CT appearance. Blood cultures were negative. Fever overnight on 02/24 Meloxicam 7.5 mg daily -[place] 5/325 q6h PO for pain Tylenol 500 q6h PO pain/fever -Gabapentin as below -Blood cx ordered 02/24 due to fever -CBC, CMP, INR -PT as above 3. Diarrhea: unstable. prolific diarrhea with negative workup thus far -Discontinue Rifaxamin as below -C. Diff pending 4. Esophageal varices in the context of cirrhosis: stable. s/p banding x4 at the beginning of this hospitalization. H&H stable. EGD repeated without active bleeds 02/05, gastroenterology has signed off. Unfortunately, pt has very bad diarrhea. -Lactulose 3 times a day (0700, 1100, & 1500) -Discontinue Rifaxamin 550 mg q12h -Protonix 40 mg BID -Propranolol 40mg BID 5. Depression and anxiety: stable. Hx depression Gabapentin helps with his depression and anxiety, and also Depakote. Psychiatry consulted. Pastoral care consult -Prozac 10 daily, was recommended to change to Cymbalta however patient has cirrhosis and this may aggravate current status -Gabapentin 600 mg in AM and noon daily; 900 mg qhs -Continue home Depakote 500 mg daily 6. Pressure ulcers: stable. Stage I sacral ulcer and stage I pressure ulcer of the right heel. Spoke with wound care on 02/21/18, noted mild improvement of wounds. -Wound care 7. Hypertension: stable. Amlodipine discontinued due to borderline hypotension, BP has been stable since -Bumex 0.5 mg daily -Propranolol as above 8. Hyperlipidemia: stable -Continue home pravastatin 40 mg PO qhs 9. Type 2 diabetes mellitus: stable. Blood sugars in the 102-190 range with 1 u SSI in last 24 hours -Continue low dose SS insulin -NPH insulin: 20 units BID 10. DVT of brachial vein (right): Stable. Last ultrasound on 01/28 was negative for DVT, DVT last seen the ultrasound on 01/19. -Lovenox 40mg daily 11. Alcohol withdrawal: resolved: Hx alcohol abuse and treatment at [facility]. He was transferred to the ICU 2/ withdrawal. This has now resolved and he is not currently on any benzodiazepines. 12. Hepatic encephalopathy: stable -Check ammonia level; pt AOx3 -DC Rifaxamin as above 12. FEN/GI/PPx: Fluids: Adequate p.o. intake Electrolytes: monitor and replete as needed. Nutrition: Regular diet GI prophylaxis: PO Protonix as above VTE prophylaxis: Lovenox 40mg q24h Dispo: awaiting transfer to SNF Pt SDW Sheila Serrano and Navin
[2018-02-24 10:03] LABS: Baso % (Auto) 0.8 % (0.0-2.0); Eos # (Auto) 0.3 th/mm3 (0.0-0.4); Eos % (Auto) 4.7 % (0.0-4.0); Hematocrit 26.5 % (39.0-51.0); Hemoglobin 8.5 gm/dL (13.0-17.0); Lymph # (Auto) 0.7 th/mm3 (1.0-4.8); Lymph % (Auto) 11.3 % (9.0-44.0); Mean Corpuscular HGB Conc 32.2 % (32.0-36.0); Mean Corpuscular Hemoglobin 28.1 pg (27.0-34.0); Mean Corpuscular Volume 87.2 fL (80.0-100.0); Mean Platelet Volume 7.3 fL (7.0-11.0); Mono # (Auto) 0.9 th/mm3 (0.0-0.9); Mono % (Auto) 15.3 % (0.0-8.0); Neut # (Auto) 3.9 th/mm3 (1.8-7.7); Neut % (Auto) 67.9 % (16.0-70.0); Platelet Count 81 th/mm3 (150-450); Red Blood Count 3.03 mil/mm3 (4.50-5.90); Red Cell Distribution Width 23.1 % (11.6-17.2); White Blood Count 5.8 th/mm3 (4.0-11.0)
[2018-02-24 10:21] LABS: Albumin 2.7 g/dL (3.4-5.0); Anion Gap 5 meq/L (5-15); Aspartate Aminotransferase 37 U/L (15-37); Blood Urea Nitrogen 11 mg/dL (7-18); Calcium 8.6 mg/dL (8.5-10.1); Carbon Dioxide 28.2 meq/L (21.0-32.0); Chloride 108 meq/L (98-107); Glomerular Filtration Rate 62 mL/min (>89); Glucose,Random 96 mg/dL (74-106); Potassium 4.3 meq/L (3.5-5.1); Sodium 141 meq/L (136-145)
[2018-02-24 10:22] LABS: Alanine Aminotransferase 18 U/L (12-78)
[2018-02-24 10:24] LABS: Alkaline Phosphatase 197 U/L (45-117); Total Protein 6.8 g/dL (6.4-8.2)
[2018-02-24] MEDS: Ferrous Sulfate 325 MG Tablet PO SCH ×2 (12:40→17:55)
[2018-02-24] MEDS: Enoxaparin Inj 40 MG/0.4 ML Syringe SQ SCH (15:36)
--- NOTE | 2018-02-24 17:06 | P.PNPL ---
Subjective Interval history: 52 YO male with GIB, cirrhosis Developed resp distress, agitation Extubated 01/27 Alert, awake, follows commands Denies sob No cough or sp has diarrhoea Physical Exam Vital signs: Vital Signs 02/23/18 20:00 02/24/18 00:00 02/24/18 01:20 Temperature 99.2 F 98.7 F Pulse Rate 92 H 94 H Respiratory Rate 18 18 20 Blood Pressure 131/77 125/70 Pulse Oximetry 96 96 02/24/18 04:00 02/24/18 08:00 02/24/18 11:58 Temperature 100.4 F H 99.0 F Pulse Rate 93 H 86 Respiratory Rate 20 17 18 Blood Pressure 122/84 135/74 Pulse Oximetry 95 95 02/24/18 12:00 02/24/18 16:00 Temperature 98.6 F 98.6 F Pulse Rate 95 H 90 Respiratory Rate 18 17 Blood Pressure 133/72 145/79 H Pulse Oximetry 98 97 Intake & Output 02/23/18 02/24/18 02/24/18 18:59 06:59 18:59 Intake Total 1480 / 1480 456 / 456 Output Total 500 / 500 475 / 475 Balance 980 / 980 - / -19 Intake: IV 1000 / 1000 216 / 216 LR 1000 mL Inj 1,000 ML @ 84 1000 / 1000 216 / 216 mls/hr IV.CONT .[id number] [facility] Rx# :[id number] Oral 480 / 480 240 / 240 Output: Urine 500 / 500 475 / 475 Other: Date of Last Bowel Movement 02/23/18 02/23/18 02/23/18 # Bowel Movements 2 GENERAL: WBWn NAD SKIN: Warm and dry. HEAD: Normocephalic. EYES: No scleral icterus. No injection or drainage. NECK: Supple, trachea midline. No JVD or lymphadenopathy. CARDIOVASCULAR: Regular rate and rhythm without murmurs, gallops, or rubs. RESPIRATORY: Breath sounds equal bilaterally. No accessory muscle use. GASTROINTESTINAL: Abdomen soft, non-tender, nondistended. MUSCULOSKELETAL: No cyanosis, or edema. BACK: Nontender without obvious deformity. No CVA tenderness. - Urinary Catheter Management Straight Cath placed during this visit: yes, but has since been removed by the nurse Reason for continuing: Not indwelling catheter Insertion date: 01/26/18 Insertion time: 17:30 Removal date: 01/26/18 Removal time: 17:35 Condom Cath placed during this visit: no 400 Cath placed during this visit: no Assessment and Plan - Plan IMPRESSION: 1. Mild shortness of breath and cough, possibly underlying asthma. 2. Hypertension. 3. Diabetes mellitus. 4. Cirrhosis of the liver. 5. VDRF, s/p extubation 01/27 6. Encephalopathy. PLAN: Protonix 40 mg daily Aerosol nebs SQ Lovenox 40 mg daily Bumex 0.5 mg daily Monitor BS Stable from Pulm standpoint Lidoderm patch Hydrocodone for pain.
[2018-02-25] MEDS: Insulin NovoLOG Aspart Correctional Sugar Inj SQ SCH ×3 (05:42→17:33)
[2018-02-25] MEDS: Artificial Tears Opth Drops 15 ML Bottle EACH EYE SCH ×3 (06:26→21:35)
[2018-02-25 07:41] LABS: Hematocrit 23.9 % (39.0-51.0); Hemoglobin 7.9 gm/dL (13.0-17.0); Mean Corpuscular HGB Conc 33.1 % (32.0-36.0); Mean Corpuscular Hemoglobin 28.5 pg (27.0-34.0); Mean Corpuscular Volume 85.8 fL (80.0-100.0); Mean Platelet Volume 7.3 fL (7.0-11.0); Platelet Count 75 th/mm3 (150-450); Red Blood Count 2.79 mil/mm3 (4.50-5.90); Red Cell Distribution Width 22.8 % (11.6-17.2); White Blood Count 4.9 th/mm3 (4.0-11.0)
[2018-02-25 07:47] LABS: INR 1.1 Ratio; Prothrombin Time 11.4 sec (9.8-11.6)
[2018-02-25 08:07] LABS: Calcium 7.9 mg/dL (8.5-10.1); Carbon Dioxide 28.1 meq/L (21.0-32.0); Potassium 4.3 meq/L (3.5-5.1)
[2018-02-25] MEDS: Meloxicam 7.5 MG Tablet PO SCH (09:27)
[2018-02-25] MEDS: Sodium Chloride 0.9% 2 ML Flush BID IV.FLUSH SCH ×2 (09:28→21:34)
[2018-02-25] MEDS: FLUoxetine 10 MG Capsule PO SCH (09:28)
[2018-02-25] MEDS: Multivit/Folic Acid/Minerals Chewable Tablets CHEW SCH (09:28)
[2018-02-25] MEDS: Propranolol 40 MG Tablet PO SCH ×2 (09:28→21:33)
[2018-02-25] MEDS: Gabapentin 300 MG Capsule PO SCH ×4 (09:28→21:34)
[2018-02-25] MEDS: Lidocaine 5% Patch T-DERMAL SCH (09:29)
[2018-02-25] MEDS: Ferrous Sulfate 325 MG Tablet PO SCH ×2 (11:38→17:30)
--- NOTE | 2018-02-25 12:52 | P.PNFP ---
Subjective Interval history: SHELTONETREMAINE. Nursing reports he had 6 bouts of diarrhea yesterday afternoon then refused lactulose and has not had diarrhea since. He did take his lactulose this morning though. He continues to complain about right leg and hip pain that is 10/10 on pain scale. We discussed reevaluating his pain regimen as well as the lactulose. PT came to work with him while we were in the room. We are working to get him into the shower. Denies CP, SOB, N/V, abdominal or leg pain and would like to go home. <Donny Callahan III H - 02/25/18 15:25> Results - Labs Result diagrams: 02/25/18 07:18 02/25/18 07:18 <Guzman Morrow - 02/26/18 08:27> Abnormal lab results 02/25/18 02/26/18 Range/Units 13:26 00:25 POC Glucose 146 H 136 H (68-110) mg/dl <Guzman Morrow - 02/26/18 08:27> Abnormal lab results 02/24/18 02/24/18 02/25/18 Range/Units 17:47 22:11 07:18 RBC 2.79 L (4.50-5.90) mil/mm3 Hgb 7.9 L (13.0-17.0) gm/dL Hct 23.9 L (39.0-51.0) % RDW 22.8 H (11.6-17.2) % Plt Count 75 L (150-450) th/mm3 Chloride (98-107) meq/L Estimated GFR (>89) mL/min POC Glucose 123 H 149 H (68-110) mg/dl Calcium (8.5-10.1) mg/dL 02/25/18 Range/Units 07:18 RBC (4.50-5.90) mil/mm3 Hgb (13.0-17.0) gm/dL Hct (39.0-51.0) % RDW (11.6-17.2) % Plt Count (150-450) th/mm3 Chloride 108 H (98-107) meq/L Estimated GFR 77 L (>89) mL/min POC Glucose (68-110) mg/dl Calcium 7.9 L (8.5-10.1) mg/dL Short CBC 02/25/18 Range/Units 07:18 WBC 4.9 (4.0-11.0) th/mm3 Hgb 7.9 L (13.0-17.0) gm/dL Hct 23.9 L (39.0-51.0) % Plt Count 75 L (150-450) th/mm3 BMP 02/25/18 07:18 Sodium 144 Potassium 4.3 Chloride 108 H Carbon Dioxide 28.1 BUN 8 Creatinine 1.01 Calcium 7.9 L <[place] BRICEDnony H - 02/25/18 12:52> Physical Exam Vital signs: Vital Signs 02/25/18 12:00 02/25/18 16:00 02/25/18 20:00 Temperature 98.7 F 98.2 F 99.4 F Pulse Rate 88 82 87 Respiratory Rate 18 14 20 Blood Pressure 143/73 H 133/91 H 146/87 H Pulse Oximetry 98 99 94 L 02/26/18 00:00 02/26/18 04:00 Temperature 98.7 F 98.9 F Pulse Rate 89 88 Respiratory Rate 18 20 Blood Pressure 131/68 138/81 Pulse Oximetry 94 L 97 Intake & Output 02/25/18 02/26/18 02/26/18 18:59 06:59 18:59 Intake Total 1000 / 1000 2440 / 2440 Output Total 1000 / 1000 Balance 1000 / 1000 1440 / 1440 Intake: IV 1000 / 1000 1000 / 1000 LR 1000 mL Inj 1,000 ML @ 84 1000 / 1000 1000 / 1000 mls/hr IV.CONT .[id number] [facility] Rx# :[id number] Oral 1440 / 1440 Output: Urine 1000 / 1000 <Guzman Morrow - 02/26/18 08:27> Vital Signs 02/24/18 16:00 02/24/18 20:00 02/25/18 00:00 Temperature 98.6 F 98.6 F 98.9 F Pulse Rate 97 H 102 H 91 H Respiratory Rate 17 17 18 Blood Pressure 145/79 H 125/70 120/78 Pulse Oximetry 97 99 97 02/25/18 04:00 02/25/18 08:00 Temperature 98.8 F 99.8 F H Pulse Rate 91 H 86 Respiratory Rate 15 18 Blood Pressure 158/86 H 161/75 H Pulse Oximetry 95 94 L Intake & Output 02/24/18 02/25/1802/25/18 18:59 06:59 18:59 Intake Total 1840 / 1840 696 / 696 1000 / 1000 Output Total 2800 / 2800 700 / 700 Balance -960 / -960 -4 / -4 1000 / 1000 Weight 96.5 kg Intake: IV 1000 / 1000 216 / 216 1000 / 1000 LR 1000 mL Inj 1,000 ML @ 84 1000 / 1000 216 / 216 1000 / 1000 mls/hr IV.CONT .[id number] [facility] Rx# :[id number] Oral 840 / 840 480 / 480 Output: Urine 2800 / 2800 700 / 700 Other: # Incontinent Voids 1 Date of Last Bowel Movement 02/24/18 # Bowel Movements 4 # Incontinent Bowel Movements 1 <[place] BRICEDonny 02/25/18 12:52> Narrative: General: Well-developed 52 YO male who is alert and in no acute distress. Neurologic: Oriented x3. Normal speech. CN II-XII grossly intact. HEENT: Atraumatic, moist mucous membranes. Erythematous rash on face. Neck: Supple, trachea midline. Surgical scar on right neck with sutures in place, clean/dry/intact. Cardiac: Regular rate and rhythm without murmur, rub or gallop. Pulmonary: Non-labored breathing on RA. CTAB but moves air poorly. No wheeze, rales or rhonchi. Abdomen: Normal bowel sounds, soft, nontender, nondistended. Extremities: No edema, 2+ pedal pulses. 5/5 bilateral ankle strength. 5/5 right leg strength. Left leg: Full passive ROM of the hip without pain. Able to plantar and dorsiflex foot and move toes. Sensation intact. Unable to extend LLE at knee or hip without assistance. <[place] BRICEDonny [facility] 02/25/18 15:25> - Urinary Catheter Management 400 Cath placed during this visit: no <Guzman Morrow 02/26/18 08:27> no <[place] BRICEDonny [facility] 02/25/18 15:25> Condom Cath placed during this visit: no <Guzman Morrow 02/26/18 08:27> no <[place] BRICEDonny [facility] 02/25/18 15:25> Straight Cath placed during this visit: no <Guzman Morrow 02/26/18 08:27> yes, but has since been removed by the nurse <Donny Callahan III - 02/25/18 15:25> Reason for continuing: Not indwelling catheter <Donny Callahan III - 02/25/18 12:52> Insertion date: 01/26/18 <Donny Callahan III 02/25/18 12:52> Insertion time: 17:30 <Donny Callahan III 02/25/18 12:52> Removal date: 01/26/18 <Donny Callahan III 02/25/18 12:52> Removal time: 17:35 <Donny Callahan III 02/25/18 12:52> Assessment and Plan - Assessment (1) Iliopsoas abscess on left Code(s): K68.12 - Psoas muscle abscess Status: Acute (2) Sepsis Code(s): A41.9 - Sepsis, unspecified organism Status: Acute (3) Esophageal varices in cirrhosis Code(s): K74.60 - Unspecified cirrhosis of liver; I85.10 - Secondary esophageal varices without bleeding Status: Chronic (4) Hypertension Code(s): I10 - Essential (primary) hypertension Status: Chronic (5) Alcohol abuse Code(s): F10.10 - Alcohol abuse, uncomplicated Status: Chronic (6) Depression with anxiety Code(s): F41.8 - Other specified anxiety disorders Status: Chronic (7) Cough Code(s): R05 - Cough Status: Resolved (8) Diabetes Code(s): E11.9 - Type 2 diabetes mellitus without complications Status: Chronic (9) Deep vein thrombosis (DVT) of brachial vein Code(s): I82.629 - Acute embolism and thrombosis of deep veins of unspecified upper extremity Status: Acute (10) Chest pain Code(s): R07.9 - Chest pain, unspecified Status: Resolved (11) Alcohol withdrawal Code(s): F10.239 - Alcohol dependence with withdrawal, unspecified Status: Resolved (12) Physical deconditioning Code(s): R53.81 - Other malaise Status: Acute <Guzman Morrow - 02/26/18 08:27> (1) Iliopsoas abscess on left Code(s): K68.12 - Psoas muscle abscess Status: Acute (2) Sepsis Code(s): A41.9 - Sepsis, unspecified organism Status: Acute (3) Esophageal varices in cirrhosis Code(s): K74.60 - Unspecified cirrhosis of liver; I85.10 - Secondary esophageal varices without bleeding Status: Chronic Plan: see below (4) Hypertension Code(s): I10 - Essential (primary) hypertension Status: Chronic Plan: see below (5) Alcohol abuse Code(s): F10.10 - Alcohol abuse, uncomplicated Status: Chronic Plan: see below (6) Depression with anxiety Code(s): F41.8 - Other specified anxiety disorders Status: Chronic Plan: see below (7) Cough Code(s): R05 - Cough Status: Resolved Plan: see below (8) Diabetes Code(s): E11.9 - Type 2 diabetes mellitus without complications Status: Chronic Plan: See below (9) Deep vein thrombosis (DVT) of brachial vein Code(s): I82.629 - Acute embolism and thrombosis of deep veins of unspecified upper extremity Status: Acute Plan: See below (10) Chest pain Code(s): R07.9 - Chest pain, unspecified Status: Resolved Plan: see below (11) Alcohol withdrawal Code(s): F10.239 - Alcohol dependence with withdrawal, unspecified Status: Resolved Plan: see below (12) Physical deconditioning Code(s): R53.81 - Other malaise Status: Acute <Blanke IIIDonny H - 02/25/18 15:11> - Assessment and Plan 52 YO male with/PMHx alcoholism, cirrhosis, and esophageal varices admitted with esophageal varices s/p banding x4. He has had altered mental status for most of his hospitalization but is lucid now. He was intubated, and then extubated on 01/27. Repeat EGD on 02/05 showed no active bleed. He has significant physical deconditioning from his hospitalization. On 02/14 he became incontinent of stool with profuse diarrhea, slipped on the stool on the floor and developed pain and difficulty extending the left hip. He was found to have an area concerning for abscess on MRI without contrast of the hip; however, CT was more consistent with hematoma. 1. Physical deconditioning: His inability to move the left leg may be related to his iliopsoas hematoma, however his symptoms are not well explained by this. His ability to activate different muscle groups waxes and wanes based on the day. -PT -OOB to chair -IS -Rehabilitation medicine consulted: recommended increasing gabapentin, possible e-stim, knee brace, possible change Prozac to Cymbalta. 2. Possible iliopsoas abscess vs hematoma: Met sepsis criteria with fever and pulse rate in the 90s. Complaint of inability to move left leg on 02/13/18. MRI of the hip without contrast showed potential iliopsoas abscess, CT was more consistent with hematoma. He has had some oscillating fevers, however now he is afebrile without leukocytosis. Interventional radiology contacted (Dr. Méndez) who did not recommend drainage or reimaging at that time unless clinical suspicion was extremely high due to the CT appearance. Blood cultures were negative. Afebrile overnight -Oxycodone 10 mg q6h -Gabapentin as below -Blood cx 02/24 NGTD x1 day -CBC, CMP, INR, ammonia level -PT as above 3. Diarrhea: unstable. prolific diarrhea with negative workup thus far -Discontinue lactulose until diarrhea resolves -Discontinue Rifaxamin as below -C. Diff negative 4. Esophageal varices in the context of cirrhosis: stable. s/p banding x4 at the beginning of this hospitalization. H&H stable. EGD repeated without active bleeds 02/05, gastroenterology has signed off. Unfortunately, pt has very bad diarrhea. -Discontinue Lactulose 3 times a day (0700, 1100, & 1500) -Discontinue Rifaxamin 550 mg q12h -Protonix 40 mg BID -Propranolol 40mg BID 5. Depression and anxiety: stable. Hx depression Gabapentin helps with his depression and anxiety, and also Depakote. Psychiatry consulted. Pastoral care consult -Prozac 10 daily, was recommended to change to Cymbalta however patient has cirrhosis and this may aggravate current status -Gabapentin 600 mg in AM and noon daily; 900 mg qhs -Continue home Depakote 500 mg daily 6. Pressure ulcers: stable. Stage I sacral ulcer and stage I pressure ulcer of the right heel. Spoke with wound care on 02/21/18, noted mild improvement of wounds. -Nursing to get pt to chair in bathroom to shower daily to aid in wound healing -DC lactulose as above -Wound care 7. Hypertension: stable. Amlodipine discontinued due to borderline hypotension -Bumex 0.5 mg daily -Propranolol as above 8. Hyperlipidemia: stable -Continue home pravastatin 40 mg PO qhs 9. Type 2 diabetes mellitus: stable. Blood sugars in the 97-146 range with 1 u SSI in last 24 hours -Continue low dose SS insulin -NPH insulin: 20 units BID 10. DVT of brachial vein (right): Stable. Last ultrasound on 01/28 was negative for DVT, DVT last seen the ultrasound on 01/19. -Lovenox 40mg daily 11. Alcohol withdrawal: resolved: Hx alcohol abuse and treatment at [facility]. He was transferred to the ICU 2/ withdrawal. This has now resolved and he is not currently on any benzodiazepines. 12. Hepatic encephalopathy: stable -Check ammonia level; pt AOx3 -DC Rifaxamin and lactulose as above -Monitor 12. FEN/GI/PPx: Fluids: Adequate p.o. intake Electrolytes: monitor and replete as needed. Nutrition: Regular diet GI prophylaxis: PO Protonix as above VTE prophylaxis: Lovenox 40mg q24h Dispo: awaiting transfer to SNF Pt SDW Sarah Morrow and Maggie <Donny Callahan III - 02/25/18 15:25> - Attending Attestation The exam, history, and the medical decision-making described in the above note were completed with the assistance of the resident physician. I reviewed and agree with the findings presented. I attest that I had a [id number] encounter with the patient on the same day, and personally performed and documented my assessment and findings in the medical record. <Guzman Morrow - 02/26/18 08:27>
[2018-02-25] MEDS: Enoxaparin Inj 40 MG/0.4 ML Syringe SQ SCH (15:19)
--- NOTE | 2018-02-25 18:57 | P.PNPL ---
Subjective Interval history: 52 YO male with GIB, cirrhosis Developed resp distress, agitation Extubated 01/27 Alert, awake, follows commands Denies sob No cough or sp has diarrhoea Had lactulose this AM Up in the chair Physical Exam Vital signs: Vital Signs 02/24/18 20:00 02/25/18 00:00 02/25/18 04:00 Temperature 98.6 F 98.9 F 98.8 F Pulse Rate 102 H 91 H 91 H Respiratory Rate 18 15 Blood Pressure 125/70 120/78 158/86 H Pulse Oximetry 99 97 95 02/25/18 08:00 02/25/18 12:00 02/25/18 16:00 Temperature 99.8 F H 98.7 F 98.2 F Pulse Rate 86 88 82 Respiratory Rate 18 14 Blood Pressure 161/75 H 143/73 H 133/91 H Pulse Oximetry 94 L 98 99 Intake & Output 02/24/18 02/25/18 02/25/18 18:59 06:59 18:59 Intake Total 1840 / 1840 696 / 696 1000 / 1000 Output Total 2800 / 2800 700 / 700 Balance -960 / -960 -4 / -4 1000 / 1000 Weight 96.5 kg Intake: IV 1000 / 1000 216 / 216 1000 / 1000 LR 1000 mL Inj 1,000 ML @ 84 1000 / 1000 216 / 216 1000 / 1000 mls/hr IV.CONT .[id number] [facility] Rx# :[id number] Oral 840 / 840 480 / 480 Output: Urine 2800 / 2800 700 / 700 Other: # Incontinent Voids 1 Date of Last Bowel Movement 02/24/18 # Bowel Movements 4 # Incontinent Bowel Movements 1 GENERAL: WBWn NAD SKIN: Warm and dry. HEAD: Normocephalic. EYES: No scleral icterus. No injection or drainage. NECK: Supple, trachea midline. No JVD or lymphadenopathy. CARDIOVASCULAR: Regular rate and rhythm without murmurs, gallops, or rubs. RESPIRATORY: Breath sounds equal bilaterally. No accessory muscle use. GASTROINTESTINAL: Abdomen soft, non-tender, nondistended. MUSCULOSKELETAL: No cyanosis, or edema. BACK: Nontender without obvious deformity. No CVA tenderness. - Urinary Catheter Management Straight Cath placed during this visit: yes, but has since been removed by the nurse Reason for continuing: Not indwelling catheter Insertion date: 01/26/18 Insertion time: 17:30 Removal date: 01/26/18 Removal time: 17:35 Condom Cath placed during this visit: no 400 Cath placed during this visit: no Assessment and Plan - Plan IMPRESSION: 1. Mild shortness of breath and cough, possibly underlying asthma. 2. Hypertension. 3. Diabetes mellitus. 4. Cirrhosis of the liver. 5. VDRF, s/p extubation 01/27 6. Encephalopathy. PLAN: Protonix 40 mg daily Aerosol nebs SQ Lovenox 40 mg daily Bumex 0.5 mg daily Monitor BS Lidoderm patch Hydrocodone for pain.
[2018-02-26] MEDS: Insulin NovoLOG Aspart Correctional Sugar Inj SQ SCH ×4 (02:27→18:52)
[2018-02-26] MEDS: Artificial Tears Opth Drops 15 ML Bottle EACH EYE SCH ×3 (05:12→22:52)
[2018-02-26] MEDS: Lidocaine 5% Patch T-DERMAL SCH (09:09)
[2018-02-26] MEDS: Gabapentin 300 MG Capsule PO SCH ×4 (09:10→20:11)
[2018-02-26] MEDS: Multivit/Folic Acid/Minerals Chewable Tablets CHEW SCH (09:11)
[2018-02-26] MEDS: Propranolol 40 MG Tablet PO SCH ×2 (09:12→20:11)
[2018-02-26] MEDS: FLUoxetine 10 MG Capsule PO SCH (09:13)
[2018-02-26] MEDS: Sodium Chloride 0.9% 2 ML Flush BID IV.FLUSH SCH ×2 (09:14→20:11)
--- NOTE | 2018-02-26 11:02 | P.PNFP ---
Subjective Interval history: NAEON. Mr Koroma states he is sleeping better now that his pain is better controlled on oxycodone. He still reports some intermittent diarrhea though. He would like to decide when to administer lactulose as he thinks he should have it at least once per day as he self-administers this at home. His bottom is still sore and was not able to get a shower as planned yesterday but we spoke to nursing this morning about getting him into a chair in the shower. We will also order Desitin for his bottom. We also encouraged PT. Though still with right leg pain, movement of his leg has improved since yesterday. Denies CP, SOB , N/V, abdominal pain but still has RLE in the thigh. Results - Labs Result diagrams: 02/25/18 07:18 02/25/18 07:18 Abnormal lab results 02/25/18 02/26/18 Range/Units 13:26 00:25 POC Glucose 146 H 136 H (68-110) mg/dl Physical Exam Vital signs: Vital Signs 02/25/18 12:00 02/25/18 16:00 02/25/18 20:00 Temperature 98.7 F 98.2 F 99.4 F Pulse Rate 88 82 87 Respiratory Rate 18 14 20 Blood Pressure 143/73 H 133/91 H 146/87 H Pulse Oximetry 98 99 94 L 02/26/18 00:00 02/26/18 04:00 02/26/18 08:00 Temperature 98.7 F 98.9 F 99.8 F H Pulse Rate 89 88 80 Respiratory Rate 18 20 18 Blood Pressure 131/68 138/81 123/64 Pulse Oximetry 94 L 97 97 Intake & Output 02/25/18 02/26/18 02/26/18 18:59 06:59 18:59 Intake Total 1000 / 1000 2440 / 2440 Output Total 1000 / 1000 Balance 1000 / 1000 1440 / 1440 Intake: IV 1000 / 1000 1000 / 1000 LR 1000 mL Inj 1,000 ML @ 84 1000 / 1000 1000 / 1000 mls/hr IV.CONT .[id number] [facility] Rx# :[id number] Oral 1440 / 1440 Output: Urine 1000 / 1000 Narrative: General: Well-developed 52 YO male who is alert and in no acute distress. Neurologic: Oriented x3. Normal speech. CN II-XII grossly intact. HEENT: Atraumatic, moist mucous membranes. Erythematous rash on face. Neck: Supple, trachea midline. Surgical scar on right neck with sutures in place, clean/dry/intact. Cardiac: Regular rate and rhythm without murmur, rub or gallop. Pulmonary: Non-labored breathing on RA. CTAB but moves air poorly. No wheeze, rales or rhonchi. Abdomen: Normal bowel sounds, soft, nontender, nondistended. SKIN: Skin breakdown with erythema on his bilateral buttocks in the gluteal cleft. No rash or other lesions. Extremities: No edema, 2+ pedal pulses. 5/5 bilateral ankle strength. 5/5 right leg strength. Left leg: Full passive ROM of the hip without pain. Able to plantar and dorsiflex foot and move toes. Sensation intact. Unable to extend LLE at knee or hip without assistance. Able to externally and internally rotation hip with some discomfort which has improved since yesterday. - Urinary Catheter Management Straight Cath placed during this visit: yes, but has since been removed by the nurse Reason for continuing: Not indwelling catheter Insertion date: 01/26/18 Insertion time: 17:30 Removal date: 01/26/18 Removal time: 17:35 Condom Cath placed during this visit: no 400 Cath placed during this visit: no Assessment and Plan - Assessment (1) Iliopsoas abscess on left Code(s): K68.12 - Psoas muscle abscess Status: Acute (2) Sepsis Code(s): A41.9 - Sepsis, unspecified organism Status: Acute (3) Esophageal varices in cirrhosis Code(s): K74.60 - Unspecified cirrhosis of liver; I85.10 - Secondary esophageal varices without bleeding Status: Chronic Plan: see below (4) Hypertension Code(s): I10 - Essential (primary) hypertension Status: Chronic Plan: see below (5) Alcohol abuse Code(s): F10.10 - Alcohol abuse, uncomplicated Status: Chronic Plan: see below (6) Depression with anxiety Code(s): F41.8 - Other specified anxiety disorders Status: Chronic Plan: see below (7) Cough Code(s): R05 - Cough Status: Resolved Plan: see below (8) Diabetes Code(s): E11.9 - Type 2 diabetes mellitus without complications Status: Chronic Plan: See below (9) Deep vein thrombosis (DVT) of brachial vein Code(s): I82.629 - Acute embolism and thrombosis of deep veins of unspecified upper extremity Status: Acute Plan: See below (10) Chest pain Code(s): R07.9 - Chest pain, unspecified Status: Resolved Plan: see below (11) Alcohol withdrawal Code(s): F10.239 - Alcohol dependence with withdrawal, unspecified Status: Resolved Plan: see below (12) Physical deconditioning Code(s): R53.81 - Other malaise Status: Acute - Assessment and Plan 52 YO male with/PMHx alcoholism, cirrhosis, and esophageal varices admitted with esophageal varices s/p banding x4. He has had altered mental status for most of his hospitalization but is lucid now. He was intubated, and then extubated on 01/27. Repeat EGD on 02/05 showed no active bleed. He has significant physical deconditioning from his hospitalization. On 02/14 he became incontinent of stool with profuse diarrhea, slipped on the stool on the floor and developed pain and difficulty extending the left hip. He was found to have an area concerning for abscess on MRI without contrast of the hip; however, CT was more consistent with hematoma. 1. Physical deconditioning - improving; inability to move the left leg 2/2 iliopsoas hematoma. -PT -OOB to chair -IS -Rehabilitation medicine consulted: recommended increasing gabapentin, possible e-stim, knee brace, possible change Prozac to Cymbalta. 2. Iliopsoas abscess vs hematoma - improving as above; Complaint of inability to move left leg on 02/13/18 after he slipped as above. MRI hip w/o contrast with potential iliopsoas abscess; CT more consistent with hematoma. Had fever spikes; however, afebrile without leukocytosis >48 hours. Interventional radiology did not recommend drainage or re-imaging. Blood cultures negative. Afebrile overnight -Oxycodone 10 mg q6h -Gabapentin as below -Blood cx 02/24 NGTD x1 day -CBC, CMP, INR, ammonia level -PT as above 3. Diarrhea - improved. resolving -Discontinued lactulose until diarrhea resolves; pt is requesting lactulose PRN today -Discontinued Rifaxamin as below -C. Diff negative -Zofran 4 mg PO q6h for nausea 4. Esophageal varices in the context of cirrhosis - stable. s/p banding x4 at the beginning of this hospitalization. H&H stable. EGD repeated without active bleeds 02/05, gastroenterology has signed off. Unfortunately, pt has very bad diarrhea. -Discontinue Lactulose 3 times a day (0700, 1100, & 1500) -Discontinue Rifaxamin 550 mg q12h -Protonix 40 mg BID -Propranolol 40mg BID 5. Depression and anxiety - stable. Hx depression Gabapentin helps with his depression and anxiety, and also Depakote. Psychiatry consulted. Pastoral care consult -Prozac 10 daily, holding Cymbalta due to cirrhosis -Gabapentin 600 mg in AM and noon daily; 900 mg qhs -Continue home Depakote 500 mg daily -Vistaril 25 mg q8h PRN 6. Pressure ulcers - stable. Stage I sacral ulcer and stage I pressure ulcer of the right heel. Spoke with wound care on 02/21/18, noted mild improvement of wounds. -Nursing to get pt to chair in bathroom to shower daily to aid in wound healing -DC lactulose as above -Wound care -Desitin for barrier protection 7. Hypertension - stable. Amlodipine discontinued due to borderline hypotension ; normotensive overnight -Bumex 0.5 mg daily -Propranolol as above 8. Hyperlipidemia - stable -Continue home pravastatin 40 mg PO qhs 9. Type 2 diabetes mellitus - stable. Blood sugars 100-146 range with no SSI in last 24 hours -Continue low dose SS insulin -NPH insulin: 20 units BID 10. DVT of brachial vein (right) - Stable. Last ultrasound on 01/28 was negative for DVT, DVT last seen the ultrasound on 01/19. -Lovenox 40mg daily 11. Alcohol withdrawal - resolved: Hx alcohol abuse and treatment at [facility]. He was transferred to the ICU 2/2 withdrawal. This has now resolved and he is not currently on any benzodiazepines. 12. Hepatic encephalopathy - stable; AOx3 this morning -Check ammonia level; pt AOx3 -DC Rifaxamin and lactulose as above -Monitor for s/s of encephalopathy 13. Anemia; Hgb 7.9; waxes/wanes from 7.3-9.2 over the last week -Ferrous sulfate 325 mg BID -Monitor with CBC 14. FEN/GI/PPx: Fluids: Adequate p.o. intake; DC IVF Electrolytes: monitor and replete as needed. Nutrition: Regular diet [employer] MV GI prophylaxis: PO Protonix as above VTE prophylaxis: Lovenox 40mg q24h Dispo: awaiting transfer to SNF Pt DW Dr Morrow and SDW Dr Holden
[2018-02-26] MEDS: Ferrous Sulfate 325 MG Tablet PO SCH ×2 (13:02→18:51)
[2018-02-26] MEDS: Enoxaparin Inj 40 MG/0.4 ML Syringe SQ SCH (15:41)
--- NOTE | 2018-02-26 18:30 | P.PNPL ---
Subjective Interval history: 52 YO male with GIB, cirrhosis Developed resp distress, agitation Extubated 01/27 Alert, awake, follows commands Denies sob No cough or sp tr to 7th floor Physical Exam Vital signs: Vital Signs 02/25/18 20:00 02/26/18 00:00 02/26/18 04:00 Temperature 99.4 F 98.7 F 98.9 F Pulse Rate 87 89 88 Respiratory Rate 20 Blood Pressure 146/87 H 131/68 138/81 Pulse Oximetry 94 L 94 L 97 02/26/18 08:00 02/26/18 12:00 02/26/18 16:00 Temperature 99.8 F H 98.8 F 98.3 F Pulse Rate 80 84 89 Respiratory Rate 18 18 Blood Pressure 123/64 130/70 131/69 Pulse Oximetry 97 99 98 Intake & Output 02/25/18 02/26/18 02/26/18 18:59 06:59 18:59 Intake Total 1000 / 1000 2440 / 2440 Output Total 1000 / 1000 Balance 1000 / 1000 1440 / 1440 Intake: IV 1000 / 1000 1000 / 1000 LR 1000 mL Inj 1,000 ML @ 84 1000 / 1000 1000 / 1000 mls/hr IV.CONT .[id number] [facility] Rx# :[id number] Oral 1440 / 1440 Output: Urine 1000 / 1000 GENERAL: WBWN NAD SKIN: Warm and dry. HEAD: Normocephalic. EYES: No scleral icterus. No injection or drainage. NECK: Supple, trachea midline. No JVD or lymphadenopathy. CARDIOVASCULAR: Regular rate and rhythm without murmurs, gallops, or rubs. RESPIRATORY: Breath sounds equal bilaterally. No accessory muscle use. GASTROINTESTINAL: Abdomen soft, non-tender, nondistended. MUSCULOSKELETAL: No cyanosis, or edema. BACK: Nontender without obvious deformity. No CVA tenderness. - Urinary Catheter Management Straight Cath placed during this visit: yes, but has since been removed by the nurse Reason for continuing: Not indwelling catheter Insertion date: 01/26/18 Insertion time: 17:30 Removal date: 01/26/18 Removal time: 17:35 Condom Cath placed during this visit: no 400 Cath placed during this visit: no Assessment and Plan - Plan IMPRESSION: 1. Mild shortness of breath and cough, possibly underlying asthma. 2. Hypertension. 3. Diabetes mellitus. 4. Cirrhosis of the liver. 5. VDRF, s/p extubation 01/27 6. Encephalopathy. PLAN: Protonix 40 mg daily Aerosol nebs SQ Lovenox 40 mg daily Bumex 0.5 mg daily Monitor BS Lidoderm patch Hydrocodone for pain. Stable on RA
[2018-02-27] MEDS: Insulin NovoLOG Aspart Correctional Sugar Inj SQ SCH ×5 (00:24→22:59)
[2018-02-27] MEDS: Artificial Tears Opth Drops 15 ML Bottle EACH EYE SCH ×3 (06:38→22:16)
[2018-02-27 08:25] LABS: Hematocrit 26.1 % (39.0-51.0); Hemoglobin 8.4 gm/dL (13.0-17.0); Mean Corpuscular HGB Conc 32.3 % (32.0-36.0); Mean Corpuscular Volume 86.7 fL (80.0-100.0); Mean Platelet Volume 7.3 fL (7.0-11.0); Platelet Count 76 th/mm3 (150-450); Red Blood Count 3.01 mil/mm3 (4.50-5.90); Red Cell Distribution Width 21.9 % (11.6-17.2); White Blood Count 3.9 th/mm3 (4.0-11.0)
[2018-02-27 08:43] LABS: Calcium 8.1 mg/dL (8.5-10.1); Carbon Dioxide 34.1 meq/L (21.0-32.0); Potassium 4.3 meq/L (3.5-5.1)
[2018-02-27] MEDS: Gabapentin 300 MG Capsule PO SCH ×4 (09:59→21:29)
[2018-02-27] MEDS: Multivit/Folic Acid/Minerals Chewable Tablets CHEW SCH (09:59)
[2018-02-27] MEDS: FLUoxetine 10 MG Capsule PO SCH (10:00)
[2018-02-27] MEDS: Lidocaine 5% Patch T-DERMAL SCH (10:00)
[2018-02-27] MEDS: Propranolol 40 MG Tablet PO SCH ×2 (10:00→21:29)
--- NOTE | 2018-02-27 11:10 | P.PNFP ---
Subjective Interval history: NAEON. Pain is well controlled; he is becoming more ambulatory. He had transferred himself to the bathroom with walker when we first went by his room and was able to transfer back to bed with walker. He is improving with PT as well but complains his LLE is still weak and has trouble lifting it against gravity, but ROM improving. His diarrhea has resolved since yesterday and he asked that we make PRN lactulose available again today as he has occasional cramping. He has a room with a roommate at [facility] and is looking forward to going back there soon. Denies CP, SOB, V/D, abdominal cramping as above and LLE pain as previous. There is also intermittent nausea. Results - Labs Result diagrams: 02/27/18 07:55 02/27/18 07:55 Abnormal lab results 02/26/18 02/26/18 02/27/18 Range/Units 13:04 20:09 05:17 WBC (4.0-11.0) th/mm3 RBC (4.50-5.90) mil/mm3 Hgb (13.0-17.0) gm/dL Hct (39.0-51.0) % RDW (11.6-17.2) % Plt Count (150-450) th/mm3 Carbon Dioxide (21.0-32.0) meq/L Anion Gap (5-15) meq/L Estimated GFR (>89) mL/min POC Glucose 143 H 118 H 123 H (68-110) mg/dl Calcium (8.5-10.1) mg/dL Ammonia (11-32) mcmol/L 02/27/18 02/27/18 02/27/18 Range/Units 07:55 07:55 07:55 WBC 3.9 L (4.0-11.0) th/mm3 RBC 3.01 L (4.50-5.90) mil/mm3 Hgb 8.4 L (13.0-17.0) gm/dL Hct 26.1 L (39.0-51.0) % RDW 21.9 H (11.6-17.2) % Plt Count 76 L (150-450) th/mm3 Carbon Dioxide 34.1 H (21.0-32.0) meq/L Anion Gap 4 L (5-15) meq/L Estimated GFR 69 L (>89) mL/min POC Glucose (68-110) mg/dl Calcium 8.1 L (8.5-10.1) mg/dL Ammonia 48 H (11-32) mcmol/L Short CBC 02/27/18 Range/Units 07:55 WBC 3.9 L (4.0-11.0) th/mm3 Hgb 8.4 L (13.0-17.0) gm/dL Hct 26.1 L (39.0-51.0) % Plt Count 76 L (150-450) th/mm3 BMP 02/27/18 07:55 Sodium 141 Potassium 4.3 Chloride 103 Carbon Dioxide 34.1 H BUN 11 Creatinine 1.12 Calcium 8.1 L Physical Exam Vital signs: Vital Signs 02/26/18 12:00 02/26/18 16:00 02/26/18 20:00 Temperature 98.8 F 98.3 F 99.1 F Pulse Rate 84 89 91 H Respiratory Rate 18 19 Blood Pressure 130/70 131/69 156/85 H Pulse Oximetry 99 98 99 02/27/18 00:00 02/27/18 04:00 02/27/18 08:00 Temperature 98.5 F 99.3 F Pulse Rate 89 82 Respiratory Rate 20 20 20 Blood Pressure 132/80 124/80 Pulse Oximetry 98 97 Intake & Output 02/26/18 02/27/18 02/27/18 18:59 06:59 18:59 Intake Total 1560 / 1560 960 / 960 Output Total 1675 / 1675 1650 / 1650 Balance -115 / -115 -690 / -690 Weight 96.5 kg Intake: Oral 1560 / 1560 960 / 960 Output: Urine 1675 / 1675 1650 / 1650 Other: Date of Last Bowel Movement 02/24/18 # Bowel Movements 0 Narrative: General: Well-developed 52 YO male who is alert and in no acute distress. Neurologic: Oriented x3. Normal speech. CN II-XII grossly intact. HEENT: Atraumatic, moist mucous membranes. Erythematous rash on face resolving. Neck: Supple, trachea midline. Surgical scar on right neck c/d/i. Cardiac: Regular rate and rhythm without murmur, rub or gallop. Pulmonary: Non-labored breathing on RA. CTAB. No wheeze, rales or rhonchi. Abdomen: Normal bowel sounds, soft, nontender, nondistended. SKIN: Skin breakdown with erythema on his bilateral buttocks in the gluteal cleft that is improving. No rash or other lesions. Extremities: No edema. 5/5 bilateral ankle strength. 5/5 right leg strength. Left leg: Full passive ROM of the hip without pain. Able to plantar and dorsiflex foot and move toes. Sensation intact. Unable to extend LLE at hip without manual assistance. Lázaro to mildly extend LLE at knee 30-40 degrees if LLE is lifted off the floor at hip level. Able to externally and internally rotation hip with some discomfort which has improved since yesterday. - Urinary Catheter Management Straight Cath placed during this visit: yes, but has since been removed by the nurse Reason for continuing: Not indwelling catheter Insertion date: 01/26/18 Insertion time: 17:30 Removal date: 01/26/18 Removal time: 17:35 Condom Cath placed during this visit: no 400 Cath placed during this visit: no Assessment and Plan - Assessment (1) Iliopsoas abscess on left Code(s): K68.12 - Psoas muscle abscess Status: Acute (2) Sepsis Code(s): A41.9 - Sepsis, unspecified organism Status: Acute (3) Esophageal varices in cirrhosis Code(s): K74.60 - Unspecified cirrhosis of liver; I85.10 - Secondary esophageal varices without bleeding Status: Chronic Plan: see below (4) Hypertension Code(s): I10 - Essential (primary) hypertension Status: Chronic Plan: see below (5) Alcohol abuse Code(s): F10.10 - Alcohol abuse, uncomplicated Status: Chronic Plan: see below (6) Depression with anxiety Code(s): F41.8 - Other specified anxiety disorders Status: Chronic Plan: see below (7) Cough Code(s): R05 - Cough Status: Resolved Plan: see below (8) Diabetes Code(s): E11.9 - Type 2 diabetes mellitus without complications Status: Chronic Plan: See below (9) Deep vein thrombosis (DVT) of brachial vein Code(s): I82.629 - Acute embolism and thrombosis of deep veins of unspecified upper extremity Status: Acute Plan: See below (10) Chest pain Code(s): R07.9 - Chest pain, unspecified Status: Resolved Plan: see below (11) Alcohol withdrawal Code(s): F10.239 - Alcohol dependence with withdrawal, unspecified Status: Resolved Plan: see below (12) Physical deconditioning Code(s): R53.81 - Other malaise Status: Acute - Assessment and Plan 52 YO male with/PMHx alcoholism, cirrhosis, and esophageal varices admitted with esophageal varices s/p banding x4. He has had altered mental status for most of his hospitalization but is lucid now. He was intubated, and then extubated on 01/27. Repeat EGD on 02/05 showed no active bleed. He has significant physical deconditioning from his hospitalization. On 02/13 he became incontinent of stool with profuse diarrhea, slipped on the stool on the floor and developed pain and difficulty extending the left hip. He was found to have an area concerning for abscess on MRI without contrast of the hip; however, CT was more consistent with hematoma. 1. Physical deconditioning - improving; inability to move the left leg 2/2 iliopsoas hematoma. -PT -OOB to chair -IS -Rehabilitation medicine consulted: recommended increasing gabapentin, possible e-stim, knee brace 2. Iliopsoas hematoma - improving as above; Complaint of inability to move left leg on 02/13/18 after he slipped as above. MRI hip w/o contrast with potential iliopsoas abscess; CT more consistent with hematoma. Had fever spikes; however , afebrile without leukocytosis >48 hours. Interventional radiology did not recommend drainage or re-imaging. Blood cultures negative. Afebrile overnight -Oxycodone 10 mg q6h -Gabapentin as below -Blood cx 02/24 NGTD x3 day -PT as above 3. Diarrhea - resolved -Lactulose 30 ml BID PRN at pt request; hold if diarrhea -Discontinued Rifaxamin as below -C. Diff negative -Zofran 4 mg PO q6h for nausea 4. Esophageal varices in the context of cirrhosis - stable. s/p banding x4 at the beginning of this hospitalization. H&H stable. EGD repeated without active bleeds 02/05, gastroenterology has signed off. Unfortunately, pt has very bad diarrhea. -Lactulose as above -Discontinue Rifaxamin 550 mg q12h -Protonix 40 mg BID -Propranolol 40mg BID 5. Depression and anxiety - stable. Hx depression Gabapentin helps with his depression and anxiety, and also Depakote. Psychiatry consulted. Pastoral care consult -Prozac 10 daily, holding Cymbalta due to cirrhosis -Gabapentin 600 mg in AM and noon daily; 900 mg qhs -Continue home Depakote 500 mg daily -Vistaril 25 mg q8h PRN 6. Pressure ulcers - stable. Stage I sacral ulcer and stage I pressure ulcer of the right heel. Spoke with wound care on 02/21/18, noted mild improvement of wounds. -Nursing to get pt to chair in bathroom to shower daily to aid in wound healing -Lactulose as above -Wound care -Desitin for barrier protection 7. Hypertension - stable. Amlodipine discontinued due to borderline hypotension ; normotensive overnight -Bumex 0.5 mg daily -Propranolol as above 8. Hyperlipidemia - stable -Continue home pravastatin 40 mg PO qhs 9. Type 2 diabetes mellitus - stable. Blood sugars 83-123 with no SSI in last 24 hours -Continue low dose SS insulin -NPH insulin: 20 units BID 10. DVT of brachial vein (right) - Stable. Last ultrasound on 01/28 was negative for DVT, DVT last seen the ultrasound on 01/19. -Lovenox 40mg daily 11. Alcohol withdrawal - resolved: Hx alcohol abuse and treatment at [facility]. He was transferred to the ICU 2/2 withdrawal. This has now resolved and he is not currently on any benzodiazepines. 12. Hepatic encephalopathy - stable; AOx3 this morning -Ammonia 48, but pt AOx3 -DC Rifaxamin; lactulose as above -Monitor for s/s of encephalopathy 13. Anemia; Hgb 7.9->8.4; waxes/wanes from 7.3-9.2 over the last week -Ferrous sulfate 325 mg BID -Monitor with CBC 14. FEN/GI/PPx: Fluids: Adequate p.o. intake; DC IVF Electrolytes: monitor and replete as needed. Nutrition: Regular diet [employer] [facility] GI prophylaxis: PO Protonix as above VTE prophylaxis: Lovenox 40mg q24h Dispo: awaiting transfer to SNF Pt DW Dr Morrow and SDW Dr Holden
[2018-02-27] MEDS: Sodium Chloride 0.9% 2 ML Flush BID IV.FLUSH SCH ×2 (11:35→21:32)
[2018-02-27] MEDS: Ferrous Sulfate 325 MG Tablet PO SCH ×2 (12:45→17:09)
[2018-02-27] MEDS: Enoxaparin Inj 40 MG/0.4 ML Syringe SQ SCH (17:10)
--- NOTE | 2018-02-27 17:39 | P.PNPL ---
Subjective Interval history: 52 YO male with GIB, cirrhosis Developed resp distress, agitation Extubated 01/27 Alert, awake, follows commands Denies sob No diarrohea today Pain and inability to move left leg Physical Exam Vital signs: Vital Signs 02/26/18 20:00 02/27/18 00:00 02/27/18 04:00 Temperature 99.1 F 98.5 F Pulse Rate 91 H 89 Respiratory Rate 19 20 20 Blood Pressure 156/85 H 132/80 Pulse Oximetry 99 98 02/27/18 08:00 02/27/18 12:00 02/27/18 16:00 Temperature 99.3 F 99 F 98.1 F Pulse Rate 82 85 79 Respiratory Rate 20 21 20 Blood Pressure 124/80 145/82 H 142/74 H Pulse Oximetry 97 96 98 Intake & Output 02/26/18 02/27/18 02/27/18 18:59 06:59 18:59 Intake Total 1560 / 1560 960 / 960 Output Total 1675 / 1675 1650 / 1650 600 / 600 Balance -115 / -115 -690 / -690 -600 / -600 Weight 96.5 kg Intake: Oral 1560 / 1560 960 / 960 Output: Urine 1675 / 1675 1650 / 1650 600 / 600 Other: Date of Last Bowel Movement 02/24/18 02/24/18 # Bowel Movements 0 GENERAL: WBWN NAD SKIN: Warm and dry. HEAD: Normocephalic. EYES: No scleral icterus. No injection or drainage. NECK: Supple, trachea midline. No JVD or lymphadenopathy. CARDIOVASCULAR: Regular rate and rhythm without murmurs, gallops, or rubs. RESPIRATORY: Breath sounds equal bilaterally. No accessory muscle use. GASTROINTESTINAL: Abdomen soft, non-tender, nondistended. MUSCULOSKELETAL: No cyanosis, or edema. Unable to lift left leg, moves side to side BACK: Nontender without obvious deformity. No CVA tenderness. - Urinary Catheter Management Straight Cath placed during this visit: yes, but has since been removed by the nurse Reason for continuing: Not indwelling catheter Insertion date: 01/26/18 Insertion time: 17:30 Removal date: 01/26/18 Removal time: 17:35 Condom Cath placed during this visit: no 400 Cath placed during this visit: no Assessment and Plan - Plan IMPRESSION: 1. Mild shortness of breath and cough, possibly underlying asthma. 2. Hypertension. 3. Diabetes mellitus. 4. Cirrhosis of the liver. 5. VDRF, s/p extubation 01/27 6. Encephalopathy. PLAN: Aerosol nebs SQ Lovenox 40 mg daily Bumex 0.5 mg daily Monitor BS Lidoderm patch left leg Hydrocodone for pain. Stable on RA
[2018-02-28] MEDS: Artificial Tears Opth Drops 15 ML Bottle EACH EYE SCH ×2 (05:24→13:11)
[2018-02-28] MEDS: Insulin NovoLOG Aspart Correctional Sugar Inj SQ SCH ×2 (05:24→13:10)
[2018-02-28 08:10] VITALS: RESP 16
[2018-02-28 08:47] LABS: Hematocrit 28.1 % (39.0-51.0); Hemoglobin 9.3 gm/dL (13.0-17.0); Mean Corpuscular HGB Conc 33.2 % (32.0-36.0); Mean Corpuscular Hemoglobin 28.5 pg (27.0-34.0); Mean Platelet Volume 7.3 fL (7.0-11.0); Platelet Count 83 th/mm3 (150-450); Red Blood Count 3.26 mil/mm3 (4.50-5.90); Red Cell Distribution Width 22.2 % (11.6-17.2); White Blood Count 3.6 th/mm3 (4.0-11.0)
[2018-02-28] MEDS: Multivit/Folic Acid/Minerals Chewable Tablets CHEW SCH (08:48)
[2018-02-28] MEDS: Propranolol 40 MG Tablet PO SCH (08:48)
[2018-02-28] MEDS: Gabapentin 300 MG Capsule PO SCH ×2 (08:48→13:02)
[2018-02-28] MEDS: FLUoxetine 10 MG Capsule PO SCH (08:48)
[2018-02-28] MEDS: Lidocaine 5% Patch T-DERMAL SCH (08:49)
--- NOTE | 2018-02-28 09:13 | P.PNFP ---
Subjective Interval history: Patient seen and evaluated this morning. Patient states she is doing better, denies any diarrhea. Patient working with PT and getting stronger every day, pain is better controlled. He is able to have better movement of his left leg. Discussed with patient the possibility of going home today, patient agrees. He denies any shortness of breath, chest pain, headaches, nausea or vomiting. He requested a stitch on his left neck to be removed. Stitch was removed at bedside without complications. Results - Labs Result diagrams: 02/28/18 08:16 02/27/18 07:55 Abnormal lab results 02/27/18 02/28/18 Range/Units 17:09 08:16 WBC 3.6 L (4.0-11.0) th/mm3 RBC 3.26 L (4.50-5.90) mil/mm3 Hgb 9.3 L (13.0-17.0) gm/dL Hct 28.1 L (39.0-51.0) % RDW 22.2 H (11.6-17.2) % Plt Count 83 L (150-450) th/mm3 POC Glucose 117 H (68-110) mg/dl Short CBC 02/28/18 Range/Units 08:16 WBC 3.6 L (4.0-11.0) th/mm3 Hgb 9.3 L (13.0-17.0) gm/dL Hct 28.1 L (39.0-51.0) % Plt Count 83 L (150-450) th/mm3 Physical Exam Vital signs: Vital Signs 02/27/18 12:00 02/27/18 16:00 02/27/18 20:00 Temperature 99 F 99 F 97.3 F L Pulse Rate 85 86 80 Respiratory Rate 21 21 20 Blood Pressure 145/82 H 130/80 136/74 Pulse Oximetry 96 97 100 02/28/18 00:00 02/28/18 04:00 02/28/18 08:00 Temperature 99.2 F 98.6 F 98.9 F Pulse Rate 75 64 77 Respiratory Rate 20 20 16 Blood Pressure 121/65 114/66 117/77 Pulse Oximetry 95 97 94 L Intake & Output 02/27/18 02/28/18 02/28/18 18:59 06:59 18:59 Intake Total 760 / 760 684 / 684 Output Total 1050 / 1050 2450 / 2450 Balance -290 / -290 -1766 / -1766 Intake: Oral 760 / 760 684 / 684 Output: Urine 1050 / 1050 2450 / 2450 Other: Date of Last Bowel Movement 02/24/18 Narrative: General: Well-developed 52 YO male who is alert and in no acute distress. Neurologic: Oriented x3. Normal speech. CN II-XII grossly intact. HEENT: Atraumatic, moist mucous membranes. Erythematous rash on face resolving. Neck: Supple, trachea midline. Surgical scar on right neck c/d/i. Stitch removed without bleeding or drainage. Cardiac: Regular rate and rhythm without murmur, rub or gallop. Pulmonary: Non-labored breathing on RA. CTAB. No wheeze, rales or rhonchi. Abdomen: Normal bowel sounds, soft, nontender, nondistended. SKIN: Skin breakdown with erythema on his bilateral buttocks in the gluteal cleft that is improving. Eczema rash on his face. Extremities: No edema. 5/5 bilateral ankle strength. 5/5 right leg strength. Left leg: Full passive ROM of the hip without pain. Able to plantar and dorsiflex foot and move toes. Sensation intact. Unable to extend LLE at hip without manual assistance. Improved side to side movement with leg extended. Able to externally and internally rotation hip, improved since yesterday. - Urinary Catheter Management Straight Cath placed during this visit: yes, but has since been removed by the nurse Reason for continuing: Not indwelling catheter Insertion date: 01/26/18 Insertion time: 17:30 Removal date: 01/26/18 Removal time: 17:35 Condom Cath placed during this visit: no 400 Cath placed during this visit: no Assessment and Plan - Assessment (1) Iliopsoas abscess on left Code(s): K68.12 - Psoas muscle abscess Status: Acute (2) Sepsis Code(s): A41.9 - Sepsis, unspecified organism Status: Acute (3) Esophageal varices in cirrhosis Code(s): K74.60 - Unspecified cirrhosis of liver; I85.10 - Secondary esophageal varices without bleeding Status: Chronic Plan: see below (4) Hypertension Code(s): I10 - Essential (primary) hypertension Status: Chronic Plan: see below (5) Alcohol abuse Code(s): F10.10 - Alcohol abuse, uncomplicated Status: Chronic Plan: see below (6) Depression with anxiety Code(s): F41.8 - Other specified anxiety disorders Status: Chronic Plan: see below (7) Cough Code(s): R05 - Cough Status: Resolved Plan: see below (8) Diabetes Code(s): E11.9 - Type 2 diabetes mellitus without complications Status: Chronic Plan: See below (9) Deep vein thrombosis (DVT) of brachial vein Code(s): I82.629 - Acute embolism and thrombosis of deep veins of unspecified upper extremity Status: Acute Plan: See below (10) Chest pain Code(s): R07.9 - Chest pain, unspecified Status: Resolved Plan: see below (11) Alcohol withdrawal Code(s): F10.239 - Alcohol dependence with withdrawal, unspecified Status: Resolved Plan: see below (12) Physical deconditioning Code(s): R53.81 - Other malaise Status: Acute - Assessment and Plan 52 YO male with/PMHx alcoholism, cirrhosis, and esophageal varices admitted with esophageal varices s/p banding x4. He has had altered mental status for most of his hospitalization but is lucid now. He was intubated, and then extubated on 01/27. Repeat EGD on 02/05 showed no active bleed. He has significant physical deconditioning from his hospitalization. On 02/13 he became incontinent of stool with profuse diarrhea, slipped on the stool on the floor and developed pain and difficulty extending the left hip. He was found to have an area concerning for abscess on MRI without contrast of the hip; however, CT was more consistent with hematoma. 1. Physical deconditioning - improving; inability to move the left leg 2/2 iliopsoas hematoma. -PT -OOB to chair -IS -Rehabilitation medicine consulted: recommended increasing gabapentin, possible e-stim, knee brace 2. Iliopsoas hematoma - improving as above; Improved leg movement -Oxycodone 10 mg q6h -Gabapentin as below -PT as above - Will attempt to get home PT 3. Diarrhea - resolved -Lactulose 30 ml BID PRN at pt request; hold if diarrhea -Discontinued Rifaxamin as below -C. Diff negative -Zofran 4 mg PO q6h for nausea 4. Esophageal varices in the context of cirrhosis - stable. s/p banding x4 at the beginning of this hospitalization. -Lactulose as above -Discontinue Rifaxamin 550 mg q12h -Protonix 40 mg BID -Propranolol 40mg BID 5. Depression and anxiety - stable. Hx depression Gabapentin helps with his depression and anxiety, and also Depakote. -Prozac 10 daily, holding Cymbalta due to cirrhosis -Gabapentin 600 mg in AM and noon daily; 900 mg qhs -Continue home Depakote 500 mg daily -Vistaril 25 mg q8h PRN 6. Pressure ulcers - stable. Stage I sacral ulcer and stage I pressure ulcer of the right heel. -Nursing to get pt to chair in bathroom to shower daily to aid in wound healing -Lactulose as above -Wound care -Desitin for barrier protection 7. Hypertension - stable. -Bumex 0.5 mg daily -Propranolol as above 8. Hyperlipidemia - stable -Continue home pravastatin 40 mg PO qhs 9. Type 2 diabetes mellitus - stable. -Continue low dose SS insulin -NPH insulin: 20 units BID 10. DVT of brachial vein (right) - Stable. -Lovenox 40mg daily 11. Alcohol withdrawal - resolved 12. Hepatic encephalopathy - stable; AOx3 this morning -Monitor for s/s of encephalopathy 13. Anemia; -Ferrous sulfate 325 mg BID -Monitor with CBC 14. FEN/GI/PPx: Fluids: Adequate p.o. intake; Electrolytes: monitor and replete as needed. Nutrition: Regular diet [employer] MV GI prophylaxis: PO Protonix as above VTE prophylaxis: Lovenox 40mg q24h Dispo: possible DC today. Will attempt to get home PT Pt DW Dr Morrow and SDW Dr Martinez
--- NOTE | 2018-02-28 09:15 | P.DCO ---
- Physical Therapy Order: Evaluate and treat, Improve ambulation, Strength and gait training - Exterior Door Installer Order: To provide: Long range planning, Community services - Case Management Consult Case Management Consult-Home Health: Yes - Certification I have seen patient Noe Koroma on 02/28/18. My clinical findings support the need for the requested home health care services because: Limited mobility due to disease progression, Deconditioned with increased weakness, Limited ability to care for self, Need for psychosocial assistance, High risk of falls I certify that my clinical findings support that this patient is homebound because: Unsteady gait/balance, Unsafe to leave home unassisted, Unable to use public transportation
[2018-02-28 09:16] LABS: Alanine Aminotransferase 15 U/L (12-78); Albumin 2.8 g/dL (3.4-5.0); Anion Gap 5 meq/L (5-15); Aspartate Aminotransferase 42 U/L (15-37); Blood Urea Nitrogen 12 mg/dL (7-18); Calcium 8.9 mg/dL (8.5-10.1); Carbon Dioxide 33.3 meq/L (21.0-32.0); Chloride 100 meq/L (98-107); Glomerular Filtration Rate 65 mL/min (>89); Glucose,Random 85 mg/dL (74-106); Potassium 4.2 meq/L (3.5-5.1); Sodium 138 meq/L (136-145)
[2018-02-28 09:18] LABS: Alkaline Phosphatase 196 U/L (45-117)
[2018-02-28] MEDS: Sodium Chloride 0.9% 2 ML Flush BID IV.FLUSH SCH (09:39)
[2018-02-28] MEDS: Ferrous Sulfate 325 MG Tablet PO SCH (11:14)
[2018-02-28 12:24] VITALS: BP 137/81; PULSE 79; TEMP 99.5; O2SAT 92
[2018-02-28] MEDS: Enoxaparin Inj 40 MG/0.4 ML Syringe SQ SCH (15:13)
--- NOTE | 2018-02-28 16:56 | P.PNPL ---
Subjective Interval history: 52 YO male with GIB, cirrhosis Developed resp distress, agitation Extubated 01/27 Alert, awake, follows commands Denies sob No diarrohea today Physical Exam Vital signs: Vital Signs 02/27/18 20:00 02/28/18 00:00 02/28/18 04:00 Temperature 97.3 F L 99.2 F 98.6 F Pulse Rate 80 75 64 Respiratory Rate 20 20 20 Blood Pressure 136/74 121/65 114/66 Pulse Oximetry 100 95 97 02/28/18 08:00 02/28/18 12:00 Temperature 98.9 F 99.5 F Pulse Rate 77 79 Respiratory Rate 16 16 Blood Pressure 117/77 137/81 Pulse Oximetry 94 L 92 L Intake & Output 02/27/18 02/28/18 02/28/18 18:59 06:59 18:59 Intake Total 760 / 760 684 / 684 Output Total 1050 / 1050 2450 / 2450 Balance -290 / -290 -1766 / -1766 Intake: Oral 760 / 760 684 / 684 Output: Urine 1050 / 1050 2450 / 2450 Other: Date of Last Bowel Movement 02/24/18 GENERAL: WBWn NAD SKIN: Warm and dry. HEAD: Normocephalic. EYES: No scleral icterus. No injection or drainage. NECK: Supple, trachea midline. No JVD or lymphadenopathy. CARDIOVASCULAR: Regular rate and rhythm without murmurs, gallops, or rubs. RESPIRATORY: Breath sounds equal bilaterally. No accessory muscle use. GASTROINTESTINAL: Abdomen soft, non-tender, nondistended. MUSCULOSKELETAL: No cyanosis, or edema. BACK: Nontender without obvious deformity. No CVA tenderness. - Urinary Catheter Management Straight Cath placed during this visit: yes, but has since been removed by the nurse Reason for continuing: Not indwelling catheter Insertion date: 01/26/18 Insertion time: 17:30 Removal date: 01/26/18 Removal time: 17:35 Condom Cath placed during this visit: no 400 Cath placed during this visit: no Assessment and Plan - Plan IMPRESSION: 1. Mild shortness of breath and cough, possibly underlying asthma. 2. Hypertension. 3. Diabetes mellitus. 4. Cirrhosis of the liver. 5. VDRF, s/p extubation 01/27 6. Encephalopathy. PLAN: Aerosol nebs SQ Lovenox 40 mg daily Bumex 0.5 mg daily Monitor BS Lidoderm patch left leg Hydrocodone for pain. Stable on RA DC plans underway
== END 2018-02-28 17:19 | disposition home health service (06) ==
LOC: NEPC 06:55 → NEDA 06:55 → NEPFCDU 13:57 → N05 01-16 15:56 → HIMC 01-18 14:20 → N04 02-03 14:38 → H7ONC 02-25 19:14
PROVIDERS: ADMIT Family Medicine; ATTEND Family Medicine
PROC: PANENDO (2018-01-16 10:32)

== ENCOUNTER 2018-03-02 01:09 | Observation (INO) ==
--- NOTE | 2018-03-02 01:58 | ED ---
HPI General Chief Complaint: Fall Stated Complaint: Fall Time Seen by Provider: 03/02/18 01:32 Source: patient, EMS and old records reviewed Mode of arrival: EMS Limitations: no limitations History of Present Illness HPI Narrative: 52-year-old male patient with history of alcohol abuse, GI bleed , esophageal varices, hypertension, diabetes, recently admitted for iliopsoas abscess on the left, released yesterday, presents to the ER today because he states that he had to try to get up from a chair using the walker and fell hitting his left knee and his head. He did not have loss of consciousness. He states that it was a loss of balance and fall because his left knee keeps giving out. Modifying Factors: None Associated Signs & Symptoms: Loss of balance and fall, head injury, left knee pain Risk Factors: Physical deconditioning, recently admitted and released Related Data Home Medications Medication Instructions Recorded Confirmed amlodipine 5 mg PO DAILY 11/13/17 01/15/18 aspirin 81 mg PO DAILY 11/13/17 01/15/18 atenolol 50 mg PO DAILY 11/13/17 01/15/18 bumetanide 0.5 mg PO DAILY 11/13/17 01/15/18 divalproex [Depakote] 500 mg PO DAILY 11/13/17 01/15/18 donepezil 5 mg PO DAILY 11/13/17 01/15/18 insulin NPH and regular human 1 sliding scale dose SUB-Q UD 11/13/17 01/15/18 [Novolin 70/30 U-100 Insulin] lanthanum 500 mg PO DAILY 11/13/17 01/15/18 lisinopril 40 mg PO DAILY 11/13/17 01/15/18 lorazepam [Ativan] 0.5 mg PO BID 11/13/17 03/02/18 mesalamine [Lialda] 1.2 g PO BID 11/13/17 03/02/18 simvastatin 20 mg PO QPM 11/13/17 03/02/18 tramadol 50 mg PO Q6H PRN 11/13/17 03/02/18 vit B,T-OQ-kbky-selen-vit D3-E 1 tab PO DAILY 11/13/17 03/02/18 [RenaPlex-D] Previous Rx's Medication Instructions Recorded cyclobenzaprine 5 mg PO Q8H PRN #30 tab 11/16/17 dicyclomine 10 mg PO QID PRN #20 cap 11/16/17 pantoprazole 40 mg PO BID #60 tab 11/16/17 ferrous sulfate [FeroSul] 325 mg PO BID@1200,1700 #60 tab 02/28/18 fluoxetine 10 mg PO DAILY 30 Days #30 cap 02/28/18 gabapentin [Neurontin] 300 mg PO TID 30 Days #90 cap 02/28/18 hydroxyzine pamoate 25 mg PO Q8H PRN 30 Days #90 cap 02/28/18 lactulose 30 ml PO BID PRN 30 Days ml 02/28/18 oxycodone 10 mg PO Q6H PRN 3 Days #18 tab 02/28/18 zinc oxide [Desitin] 1 applic TOPICAL QID 3 Days #16 oz 02/28/18 Allergies Allergy/AdvReac Type Severity Reaction Status Date / Time morphine Allergy Severe Shortness Verified 11/13/17 13:22 of Breath buspirone Allergy Intermediate Numbness Verified 11/13/17 13:22 Review of Systems ROS: all other systems reviewed are negative [facility] Medical History Medical History Depression (Acute) Diabetes (Acute) ETOH abuse (Acute) Esophageal varices (Acute) GI bleed (Acute) HTN (hypertension) (Acute) MDRO (multiple drug resistant organisms) resistance (Acute ~01/19/18) Family History Family History Other Family history of cancer Family history of colon cancer Social History Social History Substance History: No History of Abuse Second Hand Smoke Exposure: Yes Smoking Status: Light tobacco smoker Tobacco Type: Cigarettes How Often Do You Have a Drink Containing Alcohol: Monthly or less Recent [facility] within the Last 8 Weeks: No Recent Out of Country Travel within the Last 8 Weeks: No Immunization History Tetanus Immunization: Unsure Exam Narrative Exam Narrative: GENERAL: Well-developed middle-aged obese male patient currently in mild distress. Awake and oriented x3. SKIN: Focused skin assessment warm/dry. HEAD: Atraumatic. Normocephalic. EYES: Pupils equal and round. No scleral icterus. No injection or drainage. ENT: No nasal bleeding or discharge. Mucous membranes pink and moist. NECK: Trachea midline. No JVD. CARDIOVASCULAR: Regular rate and rhythm. No murmur appreciated. RESPIRATORY: No accessory muscle use. Clear to auscultation. Breath sounds equal bilaterally. GASTROINTESTINAL: Abdomen soft, non-tender, nondistended. Hepatic and splenic margins not palpable. MUSCULOSKELETAL: No obvious deformities. No clubbing. No cyanosis. No edema. EXTREMITIES: No clubbing, cyanosis, or edema. No joint tenderness, effusion, or edema noted. No calf tenderness. I did not see any obvious deformities or point tenderness to the left leg. Knee is nontender to palpation. NEUROLOGICAL: Awake and alert. No obvious cranial nerve deficits. Motor grossly within normal limits. Normal speech. PSYCHIATRIC: Appropriate mood and affect; insight and judgment normal. Course Initial Documented Vital Signs Temperature 98.4 F 03/02/18 01:16 Pulse Rate 98 H 03/02/18 01:16 Respiratory Rate 20 03/02/18 01:16 Blood Pressure 144/88 H 03/02/18 01:16 Pulse Oximetry 100 03/02/18 01:16 Last Documented Vital Signs Temperature 98.4 F 03/02/18 01:16 Pulse Rate 98 H 03/02/18 01:16 Respiratory Rate 20 03/02/18 01:16 Blood Pressure 144/88 H 03/02/18 01:16 Pulse Oximetry 100 03/02/18 01:16 Medical Decision Making MDM Narrative Medical decision making narrative: CAT scan of the brain did not show any signs of acute intracranial injuries. X-ray of the left knee and femur was fairly unremarkable for injuries. However, the patient expresses that he is having severe difficulties at the facility where he has had, he is not able to get up on his own, states that his left leg keeps giving out on him and his left knee keeps giving out on him. He is concerned because he states that he is not really able to ambulate well in the walker. At this point, my plan would be to admit him as an observation for further physical therapy evaluation. Case is discussed with family practice resident service for admission. Medical Screen Exam Complete: Yes Emergency Medical Condition: Yes Differential Diagnosis Differential Diagnosis: Contusions versus fractures versus intracranial injuries Imaging Data Attestation: I personally reviewed and interpreted this imaging study as follows : Radiologist's impression: Femur X-Ray 03/02/18 01:32 CONCLUSION: No evidence of recent bony injury. Head CT 03/02/18 01:32 CONCLUSION: 1. Negative CT Head non contrast. . Knee X-Ray 03/02/18 01:32 CONCLUSION: Negative examination Discharge Plan Discharge Order Discharge Orders: ED Use Only Admit Order (Routine); Ordered 03/02/18 Ordered By: Dimitri Hamilton Discharge Details Anticipated Discharge Date: 03/02/18 Physicians Team ED Provider: Dimitri Hamilton Primary Care Provider: Primary Care Physici,No Rxs /Orders / Referrals /Forms Prescriptions: No Action ferrous sulfate [FeroSul] 325 mg (65 mg iron) Tablet 325 mg PO BID@1200,1700 Qty: 60 RF: 3 fluoxetine 10 mg Capsule 10 mg PO DAILY 30 Days Qty: 30 RF: 1 gabapentin [Neurontin] 300 mg Capsule 300 mg PO TID 30 Days Qty: 90 RF: 1 hydroxyzine pamoate 25 mg Capsule 25 mg PO Q8H PRN (Reason: Itching) 30 Days Qty: 90 RF: 0 lactulose 20 gram/30 mL Solution 30 ml PO BID PRN (Reason: Laxative Effect) 30 Days RF: 0 oxycodone 5 mg Tablet 10 mg PO Q6H PRN (Reason: Acute Pain) 3 Days Qty: 18 RF: 0 zinc oxide [Desitin] 13 % Cream 1 applic TOPICAL QID 3 Days Qty: 16 RF: 0 donepezil 5 mg Tablet 5 mg PO DAILY RF: 0 insulin NPH and regular human [Novolin 70/30 U-100 Insulin] 100 unit/mL (70-30 ) Suspension 1 sliding scale dose SUB-Q UD RF: 0 amlodipine 5 mg Tablet 5 mg PO DAILY RF: 0 divalproex [Depakote] 500 mg Tablet,Delayed Release (Dr/Ec) 500 mg PO DAILY RF: 0 aspirin 81 mg Tablet,Delayed Release (Dr/Ec) 81 mg PO DAILY RF: 0 tramadol 50 mg Tablet 50 mg PO Q6H PRN (Reason: Pain) RF: 0 lorazepam [Ativan] 0.5 mg Tablet 0.5 mg PO BID RF: 0 simvastatin 20 mg Tablet 20 mg PO QPM RF: 0 bumetanide 0.5 mg Tablet 0.5 mg PO DAILY RF: 0 lisinopril 40 mg Tablet 40 mg PO DAILY RF: 0 atenolol 50 mg Tablet 50 mg PO DAILY RF: 0 lanthanum 500 mg Tablet,Chewable 500 mg PO DAILY RF: 0 mesalamine [Lialda] 1.2 gram Tablet,Delayed Release (Dr/Ec) 1.2 g PO BID RF: 0 vit B,W-JM-teog-selen-vit D3-E [RenaPlex-D] 800 mcg-12.5 mg -2,000 unit Tablet 1 tab PO DAILY RF: 0 cyclobenzaprine 10 mg Tablet 5 mg PO Q8H PRN (Reason: Muscle Spasm) Qty: 30 RF: 0 pantoprazole 40 mg Tablet,Delayed Release (Dr/Ec) 40 mg PO BID Qty: 60 RF: 0 dicyclomine 10 mg Capsule 10 mg PO QID PRN (Reason: Abdominal Pain) Qty: 20 RF: 0 Discharge Interventions Interventions: Vital Signs Last Done: 03/02/18 01:16 Status ED Status: With Doctor
--- NOTE | 2018-03-02 02:19 | CT ---
EXAM DATE: 03/02/2018 2:06 AM EST AGE/SEX: 52 years / Male INDICATIONS: Trauma. Fell hitting back of head. CLINICAL DATA: This is the patient's initial encounter. Patient reports that signs and symptoms have been present for 1 day and indicates a pain score of 6/10. MEDICAL/SURGICAL HISTORY: Diabetes mellitus type II. Hypertension. Alcohol abuse None. RADIATION DOSE: 56.35 CTDI (mGy) COMPARISON: [facility] [place], [place] HEAD W/O CONTRAST, 01/20/2018. . TECHNIQUE: CT of the head without contrast. Using automated exposure control and adjustment of the mA and/or kV according to patient size, radiation dose was kept as low as reasonably achievable to ob tain optimal diagnostic quality images. DICOM format image data is available electronically for revi ew and comparison. FINDINGS: Cerebrum: The ventricles are normal for age. No evidence of midline shift, mass lesion, hemorrhage or acute infarction. No extraaxial fluid collections are seen. Posterior Fossa: The cerebellum and brainstem are intact. The 4th ventricle is midline. The cerebe llopontine angle is unremarkable. Extracranial: The visualized portion of the orbits is intact. Skull: The calvaria is intact. No evidence of skull fracture. CONCLUSION: 1. Negative CT Head non contrast. . Electronically signed by: Kings Luo MD Board Certified Radiologist 03/02/2018 2:17 AM EST
--- NOTE | 2018-03-02 02:20 | XR ---
EXAM DATE: 03/02/2018 2:08 AM EST AGE/SEX: 52 years / Male INDICATIONS: Fall today but left leg pain has been an ongoing process for many weeks. CLINICAL DATA: This is the patient's subsequent encounter. Patient reports that signs and symptoms h ave been present for 1 month and indicates a pain score of 8/10. MEDICAL/SURGICAL HISTORY: Hypertension. None. COMPARISON: [facility], FEMUR LEFT 2V, 03/02/2018. . FINDINGS: Bony structures are intact and in normal alignment. Joints are intact without dislocation or signifi cant arthropathy. Osseous density is normal. Soft tissues are unremarkable. No radiopaque foreign bodies seen. CONCLUSION: Negative examination Electronically signed by: Kings Luo MD Board Certified Radiologist 03/02/2018 2:18 AM EST
--- NOTE | 2018-03-02 02:20 | XR ---
EXAM DATE: 03/02/2018 2:07 AM EST AGE/SEX: 52 years / Male INDICATIONS: Fall today but left leg pain has been an ongoing process for many weeks. CLINICAL DATA: This is the patient's subsequent encounter. Patient reports that signs and symptoms h ave been present for 1 month and indicates a pain score of 8/10. MEDICAL/SURGICAL HISTORY: Hypertension. Diabetes mellitus type II. None. COMPARISON: [facility] [place], KNEE LIMITED LEFT 1/2V, 02/13/2018. . FINDINGS: Bony structures are intact and in normal alignment. Osseous density is normal. Soft tissues are unre markable. No radiopaque foreign bodies seen. CONCLUSION: No evidence of recent bony injury. Electronically signed by: Kings Luo MD Board Certified Radiologist 03/02/2018 2:19 AM EST
[2018-03-02] MEDS ORDERED: Naloxone Inj 0.4 MG/ML Vial IV.PUSH PRN (03:44)
[2018-03-02] MEDS ORDERED: Bisacodyl 10 MG Supp RECTAL PRN (03:44)
[2018-03-02] MEDS ORDERED: Acetaminophen 325 MG Tablet PO PRN (03:44)
[2018-03-02] MEDS ORDERED: oxyCODONE/Acetaminophen 10/325 Tablet PO PRN (03:44)
--- NOTE | 2018-03-02 03:45 | P.HPFP ---
History of Present Illness Primary Care Physician: No Primary Care Physician Chief Complaint: I fell History of Present Illness: 52-year-old with a past medical history of alcoholism, cirrhosis and esophageal varices who was just discharged yesterday after prolonged hospital stay presents to the ED with left leg pain after a fall. He reports the pain is 10 out of 10. During the patient's prolonged hospitalization he was intubated for some time and had significant physical deconditioning. On February 13, he slipped and has had trouble extending the left hip since then. He was found to have an area concerning for abscess of the left hip on MRI, however CT imaging was more consistent with a hematoma. Patient had been working with physical therapy in the days before discharge. He was set up with home health care PT. Patient reports that he was unable to fill his medications upon discharge. Patient reports nausea. Patient denies headache, change in vision, chest pain, shortness of breath, abdominal pain, diarrhea. Past medical history: Alcoholism Upper GI bleed x2 due to esophageal variceal bleed Cirrhosis Hypertension Diabetes Depression anxiety Past surgical history: Esophageal variceal ablation Colonoscopy Allergies: Morphine, buspirone Family history: Mother: Diabetes Father: Colon cancer Social history: Smokes 1 pack of cigarettes per month Has a history of alcohol use. He reports drinking 2 beers since discharge. He reports marijuana use. His last time using was yesterday. Denies any other illicit drug use Lives in apartment with a roommate - Diagnosis (1) Physical deconditioning (2) Alcohol abuse (3) Esophageal varices in cirrhosis (4) Hypertension (5) Depression with anxiety (6) Diabetes (7) DVT prophylaxis (8) Nutrition, metabolism, and development symptoms (9) Pressure ulcer (10) Hematoma of left iliopsoas muscle Review of Systems All other systems reviewed negative except as stated in HPI PMFSH - History History 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, Milieu Therapist / EMT - Medical History Medical History: Medical History (Last Reviewed 03/02/18 @ 02:00 by Dimitri Hamilton MD) Depression Diabetes ETOH abuse Esophageal varices GI bleed HTN (hypertension) MDRO (multiple drug resistant organisms) resistance Onset Date: ~01/19/18 - Family History Family History: Family History (Last Reviewed 03/02/18 @ 02:00 by Dimitri Hamilton MD) Other Family history of cancer Family history of colon cancer - Social History I have reviewed the patient's Social History: Yes - Tobacco History Second Hand Smoke Exposure: Yes Tobacco Use In Past 30 Days: Yes Smoking Status: Light tobacco smoker Tobacco Type: Cigarettes - Alcohol History How Often Do You Have a Drink Containing Alcohol: Monthly or less - Substance Use History Substance History: No History of Abuse - Travel History Recent Travel in the [place] Within the Last 8 Weeks: No Recent Travel Out of the Country Within the Last 8 Weeks: No - Immunization History Tetanus Immunization: Unsure Medications and Allergies Allergies Allergy/AdvReac Type Severity Reaction Status Date / Time morphine Allergy Severe Shortness Verified 11/13/17 13:22 of Breath buspirone Allergy Intermediate Numbness Verified 11/13/17 13:22 Home Medications Medication Instructions Recorded Confirmed Type lanthanum 500 mg PO DAILY 11/13/17 03/02/18 History lisinopril 40 mg PO DAILY 11/13/17 03/02/18 History lorazepam [Ativan] 0.5 mg PO BID 11/13/17 03/02/18 History tramadol 50 mg PO Q6H PRN 11/13/17 03/02/18 History vit B,K-QY-uoli-selen-vit D3-E 1 tab PO DAILY 11/13/17 03/02/18 History [[facility]-D] Exam Vital signs: Vital Signs 03/02/18 01:16 Temperature 98.4 F Pulse Rate 98 H Respiratory Rate 20 Blood Pressure 144/88 H Pulse Oximetry 100 Intake & Output 03/01/18 03/01/18 03/02/18 06:59 18:59 06:59 Weight 95.254 kg - Constitutional no acute distress, disheveled - Routine HEENT Exam Eye: Absent: conjunctival icterus ENT: Absent: dentition normal (Multiple decaying teeth) - Routine Respiratory Exam Present: CTA bilaterally. Absent: accessory muscle use, respiratory distress - Routine Cardiovascular Exam Present: RRR, S1, S2. Absent: murmur - Routine Abdominal Exam Present: soft, normoactive bowel sounds. Absent: tenderness - Routine Extremities Exam Absent: clubbing, full ROM (Patient unable to lift his left leg on his own, right leg normal range of motion and strength), calf tenderness - Routine Skin Exam Absent: intact (skin breakdown on buttocks) - Routine Neurological Exam Present: alert, normal speech. Absent: oriented X3 (Patient is oriented to person and place but not time. He believes it is .) Results - Labs Result diagrams: 03/02/18 03:36 03/02/18 03:36 - Imaging Impressions Femur X-Ray 03/02/18 01:32 CONCLUSION: No evidence of recent bony injury. Head CT 03/02/18 01:32 CONCLUSION: 1. Negative CT Head non contrast. . Knee X-Ray 03/02/18 01:32 CONCLUSION: Negative examination Caprini VTE Risk Assessment Caprini VTE Risk Assessment: Moderate/High Risk (score >= 2) Caprini Risk Assessment Model: Point Value = 1 Point Value = 2 Point Value = 3 Point Value = 5 Age 41-60 Minor surgery BMI > 25 kg/m2 Swollen legs Varicose veins or History of unexplained or recurrent spontaneous Oral contraceptives or hormone replacement Sepsis (< 1 month) Serious lung disease, including pneumonia (< 1 month) Abnormal pulmonary function Acute myocardial infarction Congestive heart failure (< 1 month) History of inflammatory bowel disease Medical patient at bed rest Age 61-74 Arthroscopic surgery Major open surgery (> 45 min) Laparoscopic surgery (> 45 min) Malignancy Confined to bed (> 72 hours) Immobilizing plaster cast Central venous access Age >= 75 History of VTE Family history of VTE Factor V Leiden Prothrombin [id number] Lupus anticoagulant Anticardiolipin antibodies Elevated serum homocysteine Heparin-induced thrombocytopenia Other congenital or acquired thrombophilia Stroke (< 1 month) Elective arthroplasty Hip, pelvis, or leg fracture Acute spinal cord injury (< 1 month) Prophylaxis Regimen: Total Risk Factor Score Risk Level Prophylaxis Regimen 0-1 Low Early ambulation 2 Moderate Order ONE of the following: *Sequential Compression Device (SCD) *Heparin 5000 units SQ BID 3-4 Higher Order ONE of the following medications: *Heparin 5000 units SQ TID *Enoxaparin/Lovenox 40 mg SQ daily (WT < 150 kg, CrCl > 30 mL/min) *Enoxaparin/Lovenox 30 mg SQ daily (WT < 150 kg, CrCl > 10-29 mL/min) *Enoxaparin/Lovenox 30 mg SQ BID (WT < 150 kg, CrCl > 30 mL/min) AND/OR *Sequential Compression Device (SCD) 5 or more Highest Order ONE of the following medications: *Heparin 5000 units SQ TID (Preferred with Epidurals) *Enoxaparin/Lovenox 40 mg SQ daily (WT < 150 kg, CrCl > 30 mL/min) *Enoxaparin/Lovenox 30 mg SQ daily (WT < 150 kg, CrCl > 10-29 mL/min) *Enoxaparin/Lovenox 30 mg SQ BID (WT < 150 kg, CrCl > 30 mL/min) AND *Sequential Compression Device (SCD) Assessment and Plan - Assessment (1) Physical deconditioning Code(s): R53.81 - Other malaise Status: Acute (2) Alcohol abuse Code(s): F10.10 - Alcohol abuse, uncomplicated Status: Chronic (3) Esophageal varices in cirrhosis Code(s): K74.60 - Unspecified cirrhosis of liver; I85.10 - Secondary esophageal varices without bleeding Status: Chronic (4) Hypertension Code(s): I10 - Essential (primary) hypertension Status: Chronic (5) Depression with anxiety Code(s): F41.8 - Other specified anxiety disorders Status: Chronic (6) Diabetes Code(s): E11.9 - Type 2 diabetes mellitus without complications Status: Chronic (7) DVT prophylaxis Status: Acute (8) Nutrition, metabolism, and development symptoms Code(s): R63.8 - Other symptoms and signs concerning food and fluid intake Status: Acute (9) Pressure ulcer Code(s): L89.90 - Pressure ulcer of unspecified site, unspecified stage Status : Acute (10) Hematoma of left iliopsoas muscle Code(s): S70.12XA - Contusion of left thigh, initial encounter Status: Acute - Assessment and Plan 52 YO male with/PMHx alcoholism, cirrhosis, and esophageal varices admitted with left leg pain after a fall. Imaging is negative for acute injury. Patient likely needs more social support interaction to obtain his medications and outpatient care. He also needs intensive physical therapy. 1. Physical deconditioning - inability to move the left leg 2/2 iliopsoas hematoma. -PT and OT consult 2. Iliopsoas hematoma -Oxycodone Pain scale -Gabapentin 300mg PO TID -PT consult 3. Esophageal varices in the context of cirrhosis -Lactulose 30ml PO BID -Protonix 40 mg BID 4. Alcohol abuse -CIWA protocol 5. Depression and anxiety -Prozac 10 daily 6. Pressure ulcers - stable. -Wound care -Desitin for barrier protection 7. Hypertension -Stable and patient is not currently on any medications according to medication rec 8. Type 2 diabetes mellitus - stable. -Low dose SS insulin 9. Anemia: -Hgb stable at 9.5 -Ferrous sulfate 325 mg BID -Monitor with CBC 10. FEN/GI/PPx: Fluids: Adequate p.o. intake; Electrolytes: monitor and replete as needed. Nutrition: Regular diet GI prophylaxis: PO Protonix as above VTE prophylaxis: Lovenox 40mg q24h SDW Dr. Bird
[2018-03-02 03:47] LABS: Eos # (Auto) 0.2 th/mm3 (0.0-0.4); Eos % (Auto) 3.9 % (0.0-4.0); Hematocrit 28.6 % (39.0-51.0); Hemoglobin 9.5 gm/dL (13.0-17.0); Lymph # (Auto) 0.7 th/mm3 (1.0-4.8); Mean Corpuscular HGB Conc 33.2 % (32.0-36.0); Mean Corpuscular Hemoglobin 28.1 pg (27.0-34.0); Mean Corpuscular Volume 84.8 fL (80.0-100.0); Mean Platelet Volume 7.2 fL (7.0-11.0); Mono # (Auto) 0.6 th/mm3 (0.0-0.9); Mono % (Auto) 14.9 % (0.0-8.0); Neut # (Auto) 2.4 th/mm3 (1.8-7.7); Neut % (Auto) 62.2 % (16.0-70.0); Platelet Count 89 th/mm3 (150-450); Red Blood Count 3.37 mil/mm3 (4.50-5.90); Red Cell Distribution Width 21.3 % (11.6-17.2); White Blood Count 3.9 th/mm3 (4.0-11.0)
[2018-03-02] MEDS ORDERED: Haloperidol Inj 5 MG/ML Ampul IV.PUSH PRN (03:53)
[2018-03-02] MEDS ORDERED: LORazepam 1 MG Tablet PO PRN (03:53)
[2018-03-02 04:08] LABS: Calcium 8.6 mg/dL (8.5-10.1); Carbon Dioxide 31.2 meq/L (21.0-32.0); Potassium 3.9 meq/L (3.5-5.1)
[2018-03-02] MEDS ORDERED: Dextrose 50% in Water 50 ML Vial IV.PUSH PRN (04:14)
[2018-03-02 04:44] LABS: Ovalocytes 1+
[2018-03-02 04:45] LABS: Platelet Morphology Normal (Normal)
[2018-03-02] MEDS: Enoxaparin Inj 40 MG/0.4 ML Syringe SQ SCH (05:52)
[2018-03-02] MEDS ORDERED: Senna/Docusate Sodium 8.6/50 MG Tablet PO SCH (09:00)
[2018-03-02] MEDS: Lisinopril 20 MG Tablet PO SCH (09:04)
[2018-03-02] MEDS: Gabapentin 300 MG Capsule PO SCH ×3 (09:04→17:40)
[2018-03-02] MEDS: Ferrous Sulfate 325 MG Tablet PO SCH ×2 (09:05→20:42)
[2018-03-02] MEDS: Vitamin B Complex/Vit C/Folic Tablet PO SCH (09:06)
[2018-03-02] MEDS: FLUoxetine 10 MG Capsule PO SCH (09:07)
[2018-03-02] MEDS: Insulin NovoLOG Aspart Correctional Sugar Inj SQ SCH ×4 (09:08→22:03)
--- NOTE | 2018-03-02 09:45 | P.PNFP ---
Subjective Interval history: NAEON. Left knee buckling on him and pain in left knee. Did not hand picker meds upon discharge; [facility] for [facility]er[facility] Fl[facility] closes at 1PM on Saturday and could not get meds. Smoked marijuana and had two beers on Saturday but nothing yesterday. Denies CO, SOB, N/V/D, skin breakdown on buttocks improving, no abdominal pain. <London III GeovannyDonny Charan - 03/02/18 16:10> Results - Labs Result diagrams: 03/03/18 05:29 03/03/18 05:29 <Guzman Morrow - 03/04/18 09:14> Abnormal lab results 03/03/18 03/03/18 03/03/18 Range/Units 12:03 17:12 21:14 POC Glucose 241 H 127 H 129 H (68-110) mg/dl <Guzman Morrow - 03/04/18 09:14> Abnormal lab results 03/02/18 03/02/18 03/02/18 Range/Units 03:36 03:36 09:02 WBC 3.9 L (4.0-11.0) th/mm3 RBC 3.37 L (4.50-5.90) mil/mm3 Hgb 9.5 L (13.0-17.0) gm/dL Hct 28.6 L (39.0-51.0) % RDW 21.3 H (11.6-17.2) % Plt Count 89 L (150-450) th/mm3 [place] % (Auto) 14.9 H (0.0-8.0) % Lymph # (Auto) 0.7 L (1.0-4.8) th/mm3 Platelet Estimate Low L (Normal) Ovalocytes 1+ H (None) Estimated GFR 60 L (>89) mL/min POC Glucose 139 H (68-110) mg/dl Random Glucose 133 H (74-106) mg/dL Short CBC 03/02/18 Range/Units 03:36 WBC 3.9 L (4.0-11.0) th/mm3 Hgb 9.5 L (13.0-17.0) gm/dL Hct 28.6 L (39.0-51.0) % Plt Count 89 L (150-450) th/mm3 [facility] 03/02/18 03:36 Sodium 141 Potassium 3.9 Chloride 101 Carbon Dioxide 31.2 BUN 17 Creatinine 1.26 Calcium 8.6 <London III Donny Small - 03/02/18 09:45> - Imaging Impressions Femur X-Ray 03/02/18 01:32 CONCLUSION: No evidence of recent bony injury. Head CT 03/02/18 01:32 CONCLUSION: 1. Negative CT Head non contrast. . Knee X-Ray 03/02/18 01:32 CONCLUSION: Negative examination <Donny Martinez III - 03/02/18 09:45> Physical Exam Vital signs: Vital Signs 03/03/18 11:48 03/03/18 15:53 03/03/18 19:44 Temperature 98.9 F 99.2 F 99.9 F H Pulse Rate 100 H 96 H 96 H Respiratory Rate 18 18 20 Blood Pressure 128/73 180/98 H 160/87 H Pulse Oximetry 96 95 97 03/03/18 21:40 03/03/18 23:17 03/04/18 03:52 Temperature 99.1 F 99.2 F Pulse Rate 91 H 71 Respiratory Rate 16 18 20 Blood Pressure 172/94 H 158/84 H Pulse Oximetry 98 97 03/04/18 07:34 Temperature 98.1 F Pulse Rate 63 Respiratory Rate 16 Blood Pressure 165/88 H Pulse Oximetry 97 Intake & Output 03/03/18 03/04/18 03/04/18 18:59 06:59 18:59 Intake Total 1350 / 1350 480 / 480 Output Total 1120 / 1120 Balance 230 / 230 480 / 480 Intake: Oral 1350 / 1350 480 / 480 Output: Urine 1120 / 1120 Other: # Voids 5 # Bowel Movements 2 <Guzman Morrow - 03/04/18 09:14> Vital Signs 03/02/18 01:16 03/02/18 08:00 Temperature 98.4 F 98.7 F Pulse Rate 98 H 98 H Respiratory Rate 20 16 Blood Pressure 144/88 H 162/82 H Pulse Oximetry 100 97 Intake & Output 03/01/18 03/02/18 03/02/18 18:59 06:59 18:59 Weight 95.254 kg <London III Donny Small - 03/02/18 09:45> Narrative: GENERAL: 52 YO amale lying in bed in NAD. SKIN: Warm and dry. Seborrheic dermatitis on face and chest. HEAD: Normocephalic. Atraumatic. MMM. EYES: No scleral icterus. No injection or drainage. NECK: Supple, trachea midline. No JVD or lymphadenopathy. CARDIOVASCULAR: Regular rate and rhythm without murmurs, gallops, or rubs. RESPIRATORY: Breath sounds equal bilaterally. No accessory muscle use. GASTROINTESTINAL: Abdomen soft, non-tender, nondistended. MUSCULOSKELETAL: No cyanosis, or edema. Left knee with mild-moderate swelling and TTP. No warmth. Negative Lachmann's, anterior and posterior drawer. Hip with normal ROM and passive internal and external rotation. Tenderness in left medial thigh 2/2 previous hematoma. BACK: Nontender without obvious deformity. No CVA tenderness. <London SmallDonny Charan - 03/02/18 16:10> Assessment and Plan - Assessment (1) Physical deconditioning Code(s): R53.81 - Other malaise Status: Acute (2) Alcohol abuse Code(s): F10.10 - Alcohol abuse, uncomplicated Status: Chronic (3) Esophageal varices in cirrhosis Code(s): K74.60 - Unspecified cirrhosis of liver; I85.10 - Secondary esophageal varices without bleeding Status: Chronic (4) Hypertension Code(s): I10 - Essential (primary) hypertension Status: Chronic (5) Depression with anxiety Code(s): F41.8 - Other specified anxiety disorders Status: Chronic (6) Diabetes Code(s): E11.9 - Type 2 diabetes mellitus without complications Status: Chronic (7) DVT prophylaxis Status: Acute (8) Nutrition, metabolism, and development symptoms Code(s): R63.8 - Other symptoms and signs concerning food and fluid intake Status: Acute (9) Pressure ulcer Code(s): L89.90 - Pressure ulcer of unspecified site, unspecified stage Status : Acute (10) Hematoma of left iliopsoas muscle Code(s): S70.12XA - Contusion of left thigh, initial encounter Status: Acute <Guzman Morrow - 03/04/18 09:14> (1) Physical deconditioning Code(s): R53.81 - Other malaise Status: Acute (2) Alcohol abuse Code(s): F10.10 - Alcohol abuse, uncomplicated Status: Chronic (3) Esophageal varices in cirrhosis Code(s): K74.60 - Unspecified cirrhosis of liver; I85.10 - Secondary esophageal varices without bleeding Status: Chronic (4) Hypertension Code(s): I10 - Essential (primary) hypertension Status: Chronic (5) Depression with anxiety Code(s): F41.8 - Other specified anxiety disorders Status: Chronic (6) Diabetes Code(s): E11.9 - Type 2 diabetes mellitus without complications Status: Chronic (7) DVT prophylaxis Status: Acute (8) Nutrition, metabolism, and development symptoms Code(s): R63.8 - Other symptoms and signs concerning food and fluid intake Status: Acute (9) Pressure ulcer Code(s): L89.90 - Pressure ulcer of unspecified site, unspecified stage Status : Acute (10) Hematoma of left iliopsoas muscle Code(s): S70.12XA - Contusion of left thigh, initial encounter Status: Acute <London III R2Donny - 03/02/18 16:05> - Assessment and Plan 52 YO male with/PMHx alcoholism, cirrhosis, and esophageal varices admitted with left leg pain after a fall. Imaging is negative for acute injury. Patient likely needs more social support interaction to obtain his medications and outpatient care. He also needs intensive physical therapy. 1. Physical deconditioning - inability to move the left leg 2/2 iliopsoas hematoma. -PT and OT consult; PT ordered for pt on DC Saturday; however, due to holiday weekend, unlikely to get PT prior to 03/05 2. Iliopsoas hematoma -Oxycodone 5 mg q6h -Gabapentin 300mg PO TID -PT consult 3. Esophageal varices in the context of cirrhosis -Lactulose 30ml PO BID PRN -Protonix 40 mg BID 4. Alcohol abuse -CIWA protocol -Vitamin B complex PO daily 5. Depression and anxiety -Prozac 10 daily 6. Pressure ulcers - stable. -Wound care -Desitin for barrier protection 7. Hypertension -Stable and patient is not currently on any medications according to medication rec 8. Type 2 diabetes mellitus - stable. -Low dose SS insulin 9. Anemia: -Hgb stable at 9.5 -Ferrous sulfate 325 mg BID -Monitor with CBC 10. FEN/GI/PPx: Fluids: Adequate p.o. intake; Electrolytes: monitor and replete as needed. Nutrition: Regular diet GI prophylaxis: PO Protonix as above VTE prophylaxis: Lovenox 40mg q24h Dispo: Likely 03/05 after PT can be arranged and outpt meds sourced by and handed to pt prior to discharge. DEXTER Morrow <London III R2,Donny Farrar - 03/02/18 16:10> - Attending Attestation The exam, history, and the medical decision-making described in the above note were completed with the assistance of the resident physician. I reviewed and agree with the findings presented. I attest that I had a [id number] encounter with the patient on the same day, and personally performed and documented my assessment and findings in the medical record. <Guzman Morrow - 03/04/18 09:14>
[2018-03-02 13:53] LABS: INR 1.1 Ratio; Prothrombin Time 11.5 sec (9.8-11.6)
[2018-03-02 14:06] LABS: Albumin 2.9 g/dL (3.4-5.0); Anion Gap 7 meq/L (5-15); Aspartate Aminotransferase 42 U/L (15-37); Blood Urea Nitrogen 12 mg/dL (7-18); Calcium 8.4 mg/dL (8.5-10.1); Carbon Dioxide 29.9 meq/L (21.0-32.0); Chloride 104 meq/L (98-107); Glomerular Filtration Rate 79 mL/min (>89); Glucose,Random 122 mg/dL (74-106); Potassium 3.7 meq/L (3.5-5.1); Sodium 141 meq/L (136-145)
[2018-03-02 14:08] LABS: Alanine Aminotransferase 16 U/L (12-78)
[2018-03-02 14:10] LABS: Alkaline Phosphatase 207 U/L (45-117); Total Protein 7.2 g/dL (6.4-8.2)
[2018-03-03] MEDS: Insulin NovoLOG Aspart Correctional Sugar Inj SQ SCH ×5 (03:43→22:20)
[2018-03-03 06:19] LABS: Hematocrit 26.7 % (39.0-51.0); Hemoglobin 8.9 gm/dL (13.0-17.0); Mean Corpuscular HGB Conc 33.5 % (32.0-36.0); Mean Corpuscular Hemoglobin 28.2 pg (27.0-34.0); Mean Corpuscular Volume 84.2 fL (80.0-100.0); Mean Platelet Volume 7.4 fL (7.0-11.0); Platelet Count 82 th/mm3 (150-450); Red Blood Count 3.17 mil/mm3 (4.50-5.90); White Blood Count 3.2 th/mm3 (4.0-11.0)
[2018-03-03] MEDS: Enoxaparin Inj 40 MG/0.4 ML Syringe SQ SCH (06:29)
[2018-03-03 06:31] LABS: Alanine Aminotransferase 14 U/L (12-78); Albumin 2.7 g/dL (3.4-5.0); Anion Gap 6 meq/L (5-15); Aspartate Aminotransferase 35 U/L (15-37); Blood Urea Nitrogen 9 mg/dL (7-18); Calcium 8.2 mg/dL (8.5-10.1); Carbon Dioxide 29.6 meq/L (21.0-32.0); Chloride 105 meq/L (98-107); Glomerular Filtration Rate 86 mL/min (>89); Glucose,Random 109 mg/dL (74-106); Potassium 3.8 meq/L (3.5-5.1); Sodium 141 meq/L (136-145)
[2018-03-03 06:33] LABS: Alkaline Phosphatase 192 U/L (45-117); Total Protein 6.8 g/dL (6.4-8.2)
[2018-03-03] MEDS: Lisinopril 20 MG Tablet PO SCH (08:20)
[2018-03-03] MEDS: Ferrous Sulfate 325 MG Tablet PO SCH ×2 (08:20→21:03)
[2018-03-03] MEDS: Gabapentin 300 MG Capsule PO SCH ×3 (08:20→17:13)
[2018-03-03] MEDS: FLUoxetine 10 MG Capsule PO SCH (10:46)
[2018-03-03] MEDS: Vitamin B Complex/Vit C/Folic Tablet PO SCH (10:46)
--- NOTE | 2018-03-03 11:53 | P.PNFP ---
Subjective Interval history: Patient seen and evaluated this morning. Patient is doing well, continues to complain of left knee pain. Discussed with patient the risks of bleeding by adding a nonsteroidal medication, patient agrees to the risks and would like this medication started. Patient is otherwise doing well. Patient denies shortness of breath, chest pain, eating and drinking okay <Shawna Harvey V - 03/03/18 11:53> Results - Labs Result diagrams: 03/03/18 05:29 03/03/18 05:29 <Guzman Morrow - 03/04/18 09:21> Abnormal lab results 03/03/18 03/03/18 03/03/18 Range/Units 12:03 17:12 21:14 POC Glucose 241 H 127 H 129 H (68-110) mg/dl <Guzman Morrow - 03/04/18 09:21> Abnormal lab results 03/02/18 03/02/18 03/02/18 Range/Units 13:19 13:29 17:27 WBC (4.0-11.0) th/mm3 RBC (4.50-5.90) mil/mm3 Hgb (13.0-17.0) gm/dL Hct (39.0-51.0) % RDW (11.6-17.2) % Plt Count (150-450) th/mm3 Estimated GFR 79 L (>89) mL/min POC Glucose 136 H 122 H (68-110) mg/dl Random Glucose 122 H (74-106) mg/dL Calcium 8.4 L (8.5-10.1) mg/dL AST 42 H (15-37) U/L Alkaline Phosphatase 207 H (45-117) U/L Albumin 2.9 L (3.4-5.0) g/dL 03/02/18 03/03/18 03/03/18 Range/Units 21:39 05:29 05:29 WBC 3.2 L (4.0-11.0) th/mm3 RBC 3.17 L (4.50-5.90) mil/mm3 Hgb 8.9 L (13.0-17.0) gm/dL Hct 26.7 L (39.0-51.0) % RDW 21.0 H (11.6-17.2) % Plt Count 82 L (150-450) th/mm3 Estimated GFR 86 L (>89) mL/min POC Glucose 127 H (68-110) mg/dl Random Glucose 109 H (74-106) mg/dL Calcium 8.2 L (8.5-10.1) mg/dL AST (15-37) U/L Alkaline Phosphatase 192 H (45-117) U/L Albumin 2.7 L (3.4-5.0) g/dL 03/03/18 Range/Units 08:10 WBC (4.0-11.0) th/mm3 RBC (4.50-5.90) mil/mm3 Hgb (13.0-17.0) gm/dL Hct (39.0-51.0) % RDW (11.6-17.2) % Plt Count (150-450) th/mm3 Estimated GFR (>89) mL/min POC Glucose 132 H (68-110) mg/dl Random Glucose (74-106) mg/dL Calcium (8.5-10.1) mg/dL AST (15-37) U/L Alkaline Phosphatase (45-117) U/L Albumin (3.4-5.0) g/dL Short CBC 03/03/18 Range/Units 05:29 WBC 3.2 L (4.0-11.0) th/mm3 Hgb 8.9 L (13.0-17.0) gm/dL Hct 26.7 L (39.0-51.0) % Plt Count 82 L (150-450) th/mm3 BMP 03/02/18 03/03/18 13:29 05:29 Sodium 141 141 Potassium 3.7 3.8 Chloride 104 105 Carbon Dioxide 29.9 29.6 BUN 12 9 Creatinine 0.99 0.92 Calcium 8.4 L 8.2 L Liver Function 03/02/18 03/03/18 Range/Units 13:29 05:29 Total Bilirubin 0.8 0.6 (0.2-1.0) mg/dL AST 42 H 35 (15-37) U/L ALT 16 14 (12-78) U/L Alkaline Phosphatase 207 H 192 H (45-117) U/L Albumin 2.9 L 2.7 L (3.4-5.0) g/dL <Belem Manjarrez R1,Kerri - 03/03/18 11:53> Physical Exam Vital signs: Vital Signs 03/03/18 11:48 03/03/18 15:53 03/03/18 19:44 Temperature 98.9 F 99.2 F 99.9 F H Pulse Rate 100 H 96 H 96 H Respiratory Rate 18 18 20 Blood Pressure 128/73 180/98 H 160/87 H Pulse Oximetry 96 95 97 03/03/18 21:40 03/03/18 23:17 03/04/18 03:52 Temperature 99.1 F 99.2 F Pulse Rate 91 H 71 Respiratory Rate 16 18 20 Blood Pressure 172/94 H 158/84 H Pulse Oximetry 98 97 03/04/18 07:34 Temperature 98.1 F Pulse Rate 63 Respiratory Rate 16 Blood Pressure 165/88 H Pulse Oximetry 97 Intake & Output 03/03/18 03/04/18 03/04/18 18:59 06:59 18:59 Intake Total 1350 / 1350 480 / 480 Output Total 1120 / 1120 Balance 230 / 230 480 / 480 Intake: Oral 1350 / 1350 480 / 480 Output: Urine 1120 / 1120 Other: # Voids 5 # Bowel Movements 2 <Guzman Morrow - 03/04/18 09:21> Vital Signs 03/02/18 12:00 03/02/18 16:00 03/02/18 20:00 Temperature 99.1 F 97.9 F 98.4 F Pulse Rate 93 H 95 H 102 H Respiratory Rate 18 18 18 Blood Pressure 135/68 137/72 151/90 H Pulse Oximetry 97 97 97 03/03/18 00:00 03/03/18 04:00 03/03/18 07:35 Temperature 100.2 F H 99.5 F 98.7 F Pulse Rate 116 H 110 H 103 H Respiratory Rate 20 18 18 Blood Pressure 125/80 145/85 H 153/87 H Pulse Oximetry 97 96 97 Intake & Output 03/02/18 03/03/18 03/03/18 18:59 06:59 18:59 Output Total 425 / 425 Balance -425 / -425 Weight 95.254 kg Output: Urine 425 / 425 Other: Weight On Admission 95.254 kg <Belem MejiaShawnaKerri - 03/03/18 11:53> Narrative: GENERAL: 52 yo male lying in bed in NAD, eating breakfast SKIN: Warm and dry. Seborrheic dermatitis on face and chest. CARDIOVASCULAR: Regular rate and rhythm without murmurs, gallops, or rubs. RESPIRATORY: Breath sounds equal bilaterally. No accessory muscle use. GASTROINTESTINAL: Abdomen soft, non-tender, nondistended. MUSCULOSKELETAL: No cyanosis, or edema. Left knee with mild-moderate swelling and TTP. No warmth. Tenderness in left medial thigh 2/2 previous hematoma. <Shawna Harvey V - 03/03/18 11:53> - Routine Neck Exam Present: swelling <Shawna Harvey V - 03/03/18 11:53> Assessment and Plan - Assessment (1) Physical deconditioning Code(s): R53.81 - Other malaise Status: Acute (2) Alcohol abuse Code(s): F10.10 - Alcohol abuse, uncomplicated Status: Chronic (3) Esophageal varices in cirrhosis Code(s): K74.60 - Unspecified cirrhosis of liver; I85.10 - Secondary esophageal varices without bleeding Status: Chronic (4) Hypertension Code(s): I10 - Essential (primary) hypertension Status: Chronic (5) Depression with anxiety Code(s): F41.8 - Other specified anxiety disorders Status: Chronic (6) Diabetes Code(s): E11.9 - Type 2 diabetes mellitus without complications Status: Chronic (7) DVT prophylaxis Status: Acute (8) Nutrition, metabolism, and development symptoms Code(s): R63.8 - Other symptoms and signs concerning food and fluid intake Status: Acute (9) Pressure ulcer Code(s): L89.90 - Pressure ulcer of unspecified site, unspecified stage Status : Acute (10) Hematoma of left iliopsoas muscle Code(s): S70.12XA - Contusion of left thigh, initial encounter Status: Acute <OdalysGuzman - 03/04/18 09:21> (1) Physical deconditioning Code(s): R53.81 - Other malaise Status: Acute (2) Alcohol abuse Code(s): F10.10 - Alcohol abuse, uncomplicated Status: Chronic (3) Esophageal varices in cirrhosis Code(s): K74.60 - Unspecified cirrhosis of liver; I85.10 - Secondary esophageal varices without bleeding Status: Chronic (4) Hypertension Code(s): I10 - Essential (primary) hypertension Status: Chronic (5) Depression with anxiety Code(s): F41.8 - Other specified anxiety disorders Status: Chronic (6) Diabetes Code(s): E11.9 - Type 2 diabetes mellitus without complications Status: Chronic (7) DVT prophylaxis Status: Acute (8) Nutrition, metabolism, and development symptoms Code(s): R63.8 - Other symptoms and signs concerning food and fluid intake Status: Acute (9) Pressure ulcer Code(s): L89.90 - Pressure ulcer of unspecified site, unspecified stage Status : Acute (10) Hematoma of left iliopsoas muscle Code(s): S70.12XA - Contusion of left thigh, initial encounter Status: Acute <Shawna Harvey V - 03/03/18 11:29> - Assessment and Plan 52 YO male with/PMHx alcoholism, cirrhosis, and esophageal varices admitted with left leg pain after a fall. Imaging is negative for acute injury. Patient likely needs more social support interaction to obtain his medications and outpatient care. He also needs intensive physical therapy. 1. Physical deconditioning - inability to move the left leg 2/2 iliopsoas hematoma. -PT and OT consult; PT ordered for pt on [place] Saturday; however, due to holiday weekend, unlikely to get PT prior to 03/05 2. Iliopsoas hematoma -Oxycodone 5 mg q6h -Gabapentin 300mg PO TID -PT consult - Diclofenac 50mg po BID 3. Esophageal varices in the context of cirrhosis -Lactulose 30ml PO BID PRN -Protonix 40 mg BID 4. Alcohol abuse -CIWA protocol -Vitamin B complex PO daily 5. Depression and anxiety -Prozac 10 daily 6. Pressure ulcers - stable. -Wound care -Desitin for barrier protection 7. Hypertension -Stable and patient is not currently on any medications according to medication rec 8. Type 2 diabetes mellitus - stable. -Low dose SS insulin 9. Anemia: -Hgb stable at 9.5 -Ferrous sulfate 325 mg BID -Monitor with CBC 10. FEN/GI/PPx: Fluids: Adequate p.o. intake; Electrolytes: monitor and replete as needed. Nutrition: Regular diet GI prophylaxis: PO Protonix as above VTE prophylaxis: Lovenox 40mg q24h Dispo: Likely 03/05 after PT can be arranged and outpt meds sourced by CM and handed to pt prior to discharge. DEXTER Morrow <Belem Manjarrez Shawna Mejia V - 03/03/18 11:53> - Attending Attestation The exam, history, and the medical decision-making described in the above note were completed with the assistance of the resident physician. I reviewed and agree with the findings presented. I attest that I had a [id number] encounter with the patient on the same day, and personally performed and documented my assessment and findings in the medical record. <Guzman Morrow - 03/04/18 09:21>
[2018-03-03] MEDS ORDERED: hydrALAZINE 10 MG Tablet PO PRN (16:31)
[2018-03-03] MEDS: Propranolol 40 MG Tablet PO SCH (21:03)
[2018-03-03] MEDS: LORazepam 0.5 MG Tablet PO SCH (21:03)
[2018-03-04] MEDS: Insulin NovoLOG Aspart Correctional Sugar Inj SQ SCH ×5 (03:37→21:24)
[2018-03-04] MEDS: Enoxaparin Inj 40 MG/0.4 ML Syringe SQ SCH (05:40)
[2018-03-04] MEDS: LORazepam 0.5 MG Tablet PO SCH ×2 (08:32→21:10)
[2018-03-04] MEDS: Ferrous Sulfate 325 MG Tablet PO SCH ×2 (08:32→21:10)
[2018-03-04] MEDS: Propranolol 40 MG Tablet PO SCH ×2 (08:32→21:11)
[2018-03-04] MEDS: Lisinopril 20 MG Tablet PO SCH (08:32)
[2018-03-04] MEDS: Gabapentin 300 MG Capsule PO SCH ×3 (08:32→19:15)
--- NOTE | 2018-03-04 09:56 | P.PNFP ---
Subjective Interval history: NAEON. Mr. Koroma states he slept well but still has persistent pain in his left knee. He would like something a little less strong than lactulose to help him stool as he had a hard stool yesterday. Denies chest pain, shortness of breath, nausea, vomiting, diarrhea, abdominal pain. Results - Labs Result diagrams: 03/03/18 05:29 03/03/18 05:29 Abnormal lab results 03/03/18 03/03/18 03/03/18 Range/Units 12:03 17:12 21:14 POC Glucose 241 H 127 H 129 H (68-110) mg/dl Physical Exam Vital signs: Vital Signs 03/03/18 11:48 03/03/18 15:53 03/03/18 19:44 Temperature 98.9 F 99.2 F 99.9 F H Pulse Rate 100 H 96 H 96 H Respiratory Rate 18 18 20 Blood Pressure 128/73 180/98 H 160/87 H Pulse Oximetry 96 95 97 03/03/18 21:40 03/03/18 23:17 03/04/18 03:52 Temperature 99.1 F 99.2 F Pulse Rate 91 H 71 Respiratory Rate 16 18 20 Blood Pressure 172/94 H 158/84 H Pulse Oximetry 98 97 03/04/18 07:34 Temperature 98.1 F Pulse Rate 63 Respiratory Rate 16 Blood Pressure 165/88 H Pulse Oximetry 97 Intake & Output 03/03/18 03/04/18 03/04/18 18:59 06:59 18:59 Intake Total 1350 / 1350 480 / 480 Output Total 1120 / 1120 Balance 230 / 230 480 / 480 Intake: Oral 1350 / 1350 480 / 480 Output: Urine 1120 / 1120 Other: # Voids 5 # Bowel Movements 2 Narrative: GENERAL: 52 yo male lying in bed in NAD, eating breakfast SKIN: Warm and dry. Seborrheic dermatitis on face and chest resolving. CARDIOVASCULAR: Regular rate and rhythm without murmurs, gallops, or rubs. RESPIRATORY: Breath sounds equal bilaterally. No accessory muscle use. GASTROINTESTINAL: Abdomen soft, non-tender, nondistended. MUSCULOSKELETAL: No cyanosis, or edema. Left knee with mild swelling and TTP, improved since yesterday. No warmth. Tenderness in left medial thigh 2/2 previous hematoma. Assessment and Plan - Assessment (1) Physical deconditioning Code(s): R53.81 - Other malaise Status: Acute (2) Alcohol abuse Code(s): F10.10 - Alcohol abuse, uncomplicated Status: Chronic (3) Esophageal varices in cirrhosis Code(s): K74.60 - Unspecified cirrhosis of liver; I85.10 - Secondary esophageal varices without bleeding Status: Chronic (4) Hypertension Code(s): I10 - Essential (primary) hypertension Status: Chronic (5) Depression with anxiety Code(s): F41.8 - Other specified anxiety disorders Status: Chronic (6) Diabetes Code(s): E11.9 - Type 2 diabetes mellitus without complications Status: Chronic (7) DVT prophylaxis Status: Acute (8) Nutrition, metabolism, and development symptoms Code(s): R63.8 - Other symptoms and signs concerning food and fluid intake Status: Acute (9) Pressure ulcer Code(s): L89.90 - Pressure ulcer of unspecified site, unspecified stage Status : Acute (10) Hematoma of left iliopsoas muscle Code(s): S70.12XA - Contusion of left thigh, initial encounter Status: Acute - Assessment and Plan 52 YO male with/PMHx alcoholism, cirrhosis, and esophageal varices admitted with left leg pain after a fall. Imaging is negative for acute injury. Patient likely needs more social support interaction to obtain his medications and outpatient care. He also needs intensive physical therapy. 1. Physical deconditioning - inability to move the left leg 2/2 iliopsoas hematoma. -PT and OT consult; PT ordered for pt on [place] Saturday; however, due to holiday weekend, unlikely to get PT prior to 03/05 2. Iliopsoas hematoma -Oxycodone 5 mg q6h -Gabapentin 300mg PO TID -PT consult -Diclofenac 50mg po BID 3. Esophageal varices in the context of cirrhosis -Lactulose 30ml PO BID PRN -Protonix 40 mg BID 4. Alcohol abuse -CIWA protocol -Vitamin B complex PO daily 5. Left knee swelling/effusion - mild and resolving -Ice pack -Pain control as above 6. Depression and anxiety -Prozac 10 daily 7. Pressure ulcers - stable. -Wound care -Desitin for barrier protection 8. Hypertension -Stable and patient is not currently on any medications according to medication rec 9. Type 2 diabetes mellitus - stable. -Low dose SS insulin 10. Anemia: -Hgb stable at 9.5->10.1 -Ferrous sulfate 325 mg BID -Monitor with CBC 10. FEN/GI/PPx: Fluids: Adequate p.o. intake; Electrolytes: monitor and replete as needed. Nutrition: Regular diet GI prophylaxis: PO Protonix as above VTE prophylaxis: Lovenox 40mg q24h Joanne-colace BID Dispo: Likely 03/05 after PT can be arranged and outpt meds sourced by and handed to pt prior to discharge. DW Dr Morrow, SDW Dr Patricia
[2018-03-04] MEDS: Vitamin B Complex/Vit C/Folic Tablet PO SCH (10:03)
[2018-03-04] MEDS: FLUoxetine 10 MG Capsule PO SCH (10:03)
[2018-03-04] MEDS: Senna/Docusate Sodium 8.6/50 MG Tablet PO SCH ×2 (13:34→21:13)
[2018-03-05] MEDS: Insulin NovoLOG Aspart Correctional Sugar Inj SQ SCH ×3 (05:28→14:36)
[2018-03-05 05:29] VITALS: RESP 16
[2018-03-05] MEDS: Enoxaparin Inj 40 MG/0.4 ML Syringe SQ SCH (06:08)
[2018-03-05] MEDS: FLUoxetine 10 MG Capsule PO SCH (08:33)
[2018-03-05] MEDS: Ferrous Sulfate 325 MG Tablet PO SCH (08:33)
[2018-03-05] MEDS: Senna/Docusate Sodium 8.6/50 MG Tablet PO SCH (08:34)
[2018-03-05] MEDS: Gabapentin 300 MG Capsule PO SCH ×2 (08:35→12:09)
[2018-03-05] MEDS: Propranolol 40 MG Tablet PO SCH (08:35)
[2018-03-05] MEDS: Lisinopril 20 MG Tablet PO SCH (08:36)
[2018-03-05] MEDS: LORazepam 0.5 MG Tablet PO SCH (08:37)
[2018-03-05] MEDS: Vitamin B Complex/Vit C/Folic Tablet PO SCH (08:39)
--- NOTE | 2018-03-05 12:11 | P.PNFP ---
Subjective Interval history: Patient doing well this morning. Has no complaints, reports improved left knee pain and mobility. Discussed with patient his alcohol intake and is to stop, due to his liver cirrhosis. Patient advised if he continues to drink, he has a 6-month prognosis. Patient voiced understanding. Patient denies any chest pain , shortness of breath, or any other acute complaints. Eating and drinking okay , having regular bowel movements. Patient will be discharged today Results - Labs Result diagrams: 03/03/18 05:29 03/03/18 05:29 Abnormal lab results 03/04/18 03/04/18 03/05/18 Range/Units 16:58 21:15 08:31 POC Glucose 148 H 157 H 125 H (68-110) mg/dl Physical Exam Vital signs: Vital Signs 03/04/18 16:00 03/04/18 20:00 03/04/18 22:00 Temperature 98.5 F Pulse Rate 73 73 Respiratory Rate 16 17 16 Blood Pressure 129/73 141/78 H Pulse Oximetry 98 97 03/05/18 00:00 03/05/18 03:25 03/05/18 04:20 Temperature 98.8 F 98.7 F Pulse Rate 67 85 Respiratory Rate 16 17 16 Blood Pressure 145/80 H 142/74 H Pulse Oximetry 97 94 L 03/05/18 08:00 Temperature 98.6 F Pulse Rate 81 Respiratory Rate 16 Blood Pressure 134/76 Pulse Oximetry 98 Intake & Output 03/04/18 03/05/18 03/05/18 18:59 06:59 18:59 Intake Total 960 / 960 Balance 960 / 960 Intake: Oral 960 / 960 Other: # Voids 6 Date of Last Bowel Movement 03/04/18 03/04/18 Narrative: GENERAL: 52 yo male lying in bed in NAD, eating breakfast SKIN: Warm and dry. Seborrheic dermatitis on face and chest resolving. CARDIOVASCULAR: Regular rate and rhythm without murmurs, gallops, or rubs. RESPIRATORY: Breath sounds equal bilaterally. No accessory muscle use. GASTROINTESTINAL: Abdomen soft, non-tender, nondistended. MUSCULOSKELETAL: No cyanosis, or edema. Left knee with improved swelling and non tender to palpation, improved since yesterday. No warmth. Assessment and Plan - Assessment (1) Physical deconditioning Code(s): R53.81 - Other malaise Status: Acute (2) Alcohol abuse Code(s): F10.10 - Alcohol abuse, uncomplicated Status: Chronic (3) Esophageal varices in cirrhosis Code(s): K74.60 - Unspecified cirrhosis of liver; I85.10 - Secondary esophageal varices without bleeding Status: Chronic (4) Hypertension Code(s): I10 - Essential (primary) hypertension Status: Chronic (5) Depression with anxiety Code(s): F41.8 - Other specified anxiety disorders Status: Chronic (6) Diabetes Code(s): E11.9 - Type 2 diabetes mellitus without complications Status: Chronic (7) DVT prophylaxis Status: Acute (8) Nutrition, metabolism, and development symptoms Code(s): R63.8 - Other symptoms and signs concerning food and fluid intake Status: Acute (9) Pressure ulcer Code(s): L89.90 - Pressure ulcer of unspecified site, unspecified stage Status : Acute (10) Hematoma of left iliopsoas muscle Code(s): S70.12XA - Contusion of left thigh, initial encounter Status: Acute - Assessment and Plan 52 YO male with/PMHx alcoholism, cirrhosis, and esophageal varices admitted with left leg pain after a fall. Imaging is negative for acute injury. Patient likely needs more social support interaction to obtain his medications and outpatient care. He also needs intensive physical therapy. 1. Physical deconditioning - inability to move the left leg 2/2 iliopsoas hematoma. -PT and OT consult; PT ordered for pt on [place] Saturday; however, due to holiday weekend, unlikely to get PT prior to 03/05 2. Iliopsoas hematoma -Oxycodone 5 mg q6h -Gabapentin 300mg PO TID -PT consult -Diclofenac 50mg po BID 3. Esophageal varices in the context of cirrhosis -Lactulose 30ml PO BID PRN -Protonix 40 mg BID 4. Alcohol abuse -CIWA protocol -Vitamin B complex PO daily 5. Left knee swelling/effusion - mild and resolving -Ice pack -Pain control as above 6. Depression and anxiety -Prozac 10 daily 7. Pressure ulcers - stable. -Wound care -Desitin for barrier protection 8. Hypertension -Stable and patient is not currently on any medications according to medication rec 9. Type 2 diabetes mellitus - stable. -Low dose SS insulin 10. Anemia: -Hgb stable at 9.5->10.1 -Ferrous sulfate 325 mg BID -Monitor with CBC 10. FEN/GI/PPx: Fluids: Adequate p.o. intake; Electrolytes: monitor and replete as needed. Nutrition: Regular diet GI prophylaxis: PO Protonix as above VTE prophylaxis: Lovenox 40mg q24h Joanne-colace BID Dispo: Discharge home today. Pain medication given for 3 days, E-forced check performed. DEXTER Morrow and Dr. Serrano
[2018-03-05 12:24] VITALS: BP 124/74; PULSE 65; TEMP 98.7; O2SAT 96
--- NOTE | 2018-03-05 12:35 | P.DCO ---
- Physical Therapy Order: Evaluate and treat, Improve ambulation, Strength and gait training - Home Health Nursing Order: Nursing assessment with vital signs - Case Management Consult Case Management Consult-Home Health: Yes - Certification I have seen patient Noe Koroma on 03/05/18. My clinical findings support the need for the requested home health care services because: Limited mobility due to disease progression, Deconditioned with increased weakness, Limited ability to care for self, High risk of falls I certify that my clinical findings support that this patient is homebound because: Unsteady gait/balance, Unsafe to leave home unassisted, Unable to use public transportation
--- NOTE | 2018-03-07 13:32 | P.DS ---
Date of admission: 03/02/18 03:02 Primary care physician: No Primary Care Physician Brief History from admission: 52-year-old with a past medical history of alcoholism, cirrhosis and esophageal varices who was just discharged yesterday after prolonged hospital stay presents to the ED with left leg pain after a fall. He reports the pain is 10 out of 10. During the patient's prolonged hospitalization he was intubated for some time and had significant physical deconditioning. On February 13, he slipped and has had trouble extending the left hip since then. He was found to have an area concerning for abscess of the left hip on MRI, however CT imaging was more consistent with a hematoma. Patient had been working with physical therapy in the days before discharge. He was set up with home health care PT. Patient reports that he was unable to fill his medications upon discharge. Patient reports nausea. Patient denies headache, change in vision, chest pain, shortness of breath, abdominal pain, diarrhea. Past medical history: Alcoholism Upper GI bleed x2 due to esophageal variceal bleed Cirrhosis Hypertension Diabetes Depression anxiety Past surgical history: Esophageal variceal ablation Colonoscopy Allergies: Morphine, buspirone Family history: Mother: Diabetes Father: Colon cancer Social history: Smokes 1 pack of cigarettes per month Has a history of alcohol use. He reports drinking 2 beers since discharge. He reports marijuana use. His last time using was yesterday. Denies any other illicit drug use Lives in apartment with a roommate DS: Diagnosis - Discharge Diagnosis (1) Physical deconditioning Status: Acute (2) Alcohol abuse Status: Chronic (3) Esophageal varices in cirrhosis Status: Chronic (4) Hypertension Status: Chronic (5) Depression with anxiety Status: Chronic (6) Diabetes Status: Chronic (7) DVT prophylaxis Status: Acute (8) Nutrition, metabolism, and development symptoms Status: Acute (9) Pressure ulcer Status: Acute (10) Hematoma of left iliopsoas muscle Status: Acute DS: Medications - Discharge Medications Prescriptions: diclofenac sodium 50 mg PO BID #10 tab oxycodone 5 mg PO Q6H PRN 3 Days #12 tab PRN Reason: Pain DS: Summary Hospital Course: 52 YO male with/PMHx alcoholism, cirrhosis, and esophageal varices re-admitted with left leg pain after a fall. Pt was discharged 24 hr prior to this incident in stable condition, with home health PT. Imaging is negative for acute injury. Patient likely needs more social support interaction to obtain his medications and outpatient care. He also needs intensive physical therapy. He was kept inpatient until PT was able to be situated at this place of residence. While here, Mr Koroma continued to work with inpatient PT. He was extensively counseled about alcohol cessation due to his chronic liver condition. - Time Spent with Patient Total time spent providing and/or coordinating discharge services: Less than 30 minutes - Quality: VTE Deep Vein Thrombosis/Pulmonary Embolism Present on Admission: No Exam Narrative: GENERAL: 52 yo male lying in bed in NAD, eating breakfast SKIN: Warm and dry. Seborrheic dermatitis on face and chest resolving. CARDIOVASCULAR: Regular rate and rhythm without murmurs, gallops, or rubs. RESPIRATORY: Breath sounds equal bilaterally. No accessory muscle use. GASTROINTESTINAL: Abdomen soft, non-tender, nondistended. MUSCULOSKELETAL: No cyanosis, or edema. Left knee with improved swelling and non tender to palpation, improved since yesterday. No warmth. Results Procedures completed during hospitalization: none - Impressions ITS Impressions Femur X-Ray 03/02/18 01:32 CONCLUSION: No evidence of recent bony injury. Head CT 03/02/18 01:32 CONCLUSION: 1. Negative CT Head non contrast. . Knee X-Ray 03/02/18 01:32 CONCLUSION: Negative examination Discharge Plan - Discharge Disposition Patient Disposition: Disch W/Home Health Service - Discharge Condition Condition: Stable - Discharge Order Discharge Orders: Discharge Order (Routine); Ordered 03/05/18 Ordered By: Shawna Manjarrez R1 - Discharge Details Anticipated Discharge Date: 03/02/18 - Physicians Team Primary Care Provider: Primary Care Patricia Lee Attending Provider: Guzman Morrow Other Providers: [employer],Insurance
== END 2018-03-05 16:01 | disposition home health service (06) ==
LOC: NEPC 01:09 → NEDA 01:09 → NEPGCP 07:37
PROVIDERS: ADMIT Family Medicine; ATTEND Family Medicine
DX: I10 Essential (primary) hypertension; E11.9 Type 2 diabetes mellitus without complications; S70.12XA Contusion of left thigh, initial encounter; W19.XXXA Unspecified fall, initial encounter; Z79.82 Long term (current) use of aspirin; Z88.5 Allergy status to narcotic agent; K74.60 Unspecified cirrhosis of liver; F41.8 Other specified anxiety disorders; K92.2 Gastrointestinal hemorrhage, unspecified; M25.562 Pain in left knee; D64.9 Anemia, unspecified; Z83.3 Family history of diabetes mellitus; L89.90 Pressure ulcer of unspecified site, unspecified stage; I85.10 Secondary esophageal varices without bleeding; E66.9 Obesity, unspecified; Z80.0 Family history of malignant neoplasm of digestive organs; F12.90 Cannabis use, unspecified, uncomplicated; Z79.899 Other long term (current) drug therapy; F10.10 Alcohol abuse, uncomplicated; Z79.4 Long term (current) use of insulin; F17.210 Nicotine dependence, cigarettes, uncomplicated
CPT/HCPCS: 70450; 73552; 73564; 80048; 80053; 82948; 82962; 85025; 85027; 85610; 96372; 97162; 97166; 97530; 99285; G0378; G8987; G8988; J1650; J1815; J2405